=== PATIENT | male | born 1960 | race Caucasian/White ===

== ENCOUNTER 2022-08-16 13:46 | Emergency (ER) | payer MEDICARE, BC, SELFPAY ==
[2022-08-16 13:51] VITALS: BP 119/62; PULSE 89; RESP 18; TEMP 36.1; O2SAT 96
--- OUTSIDE RECORDS SUMMARY | 2022-08-16 14:23 | XMS_ITS | Encounter Summary ---
:1960 Author Organization [place] Address [facility] [place] [address] Care Team Providers Name Role Phone Teresita Garcia MD Primary Care Provider Audrey Hickman MD Unavailable [phone] Reason for Visit Reason Comments Medication Refill Encounter Details Date Type Department Care Team Description 05/13/2022 Refill [facility] Roel Garcia MD Medication Refill [id number] [place] [address] [place], [place] [address] [phone] Social History Tobacco Use Types Packs/Day Years Used Date Smoking Tobacco: Never Smokeless Tobacco: Never Alcohol Use Standard Drinks/Week Comments Not Currently 0 (1 standard drink = 0.6 oz pure alcoho l) socially Alcohol Habits Answer Date Recorded How often do you have a drink containing alcohol? Never 11/25/2018 How many drinks containing alcohol do you have on a typical Not asked day when you are drinking? How often do you have six or more drinks on one occasion? No t asked Social Isolation Answer Date Recorded In a typical week, how many times do you More than three francisco javier es a week 07/05/2020 talk on the phone with family, friends, or neighbors? How often do you get together with friends Not asked or relatives? How often do you attend christianity or Not asked yarsani services? Do you belong to any clubs or Not asked organizations such as christianity groups, unions, fraternal or athletic groups, or school groups? How often do you attend meetings of the Not asked clubs or organizations you belong to? Are you now , , , Not asked , never or living with a partner? Physical Activity Answer Date Recorded On average, how many days per week do you engage in moderate to 0 days 07/05/2020 strenuous exercise (like walking fast, running, jogging, dancing, swimming, biking, or other activities that cause a light or heavy sweat)? On average, how many minutes do you engage in exercise at th is 0 min 07/05/2020 level? Stress Answer Date Recorded Do you feel stress - tense, restless, nervous, or To some ex tent 07/05/2020 anxious, or unable to sleep at night because your mind is troubled all the time - these days? Financial Resource Strain Answer Date Recorded How hard is it for you to pay for the very basics like Not v neo hard 07/05/2020 food, housing, medical care, and heating? Intimate Partner Violence Answer Date Recorded Within the last year, have you been afraid of your partner o r No 07/05/2020 ex-partner? Within the last year, have you been humiliated or emotionall y No 07/05/2020 abused in other ways by your partner or ex-partner? Within the last year, have you been kicked, hit, slapped, or No 07/05/2020 otherwise physically hurt by your partner or ex-partner? Within the last year, have you been raped or forced to have any No 07/05/2020 kind of sexual activity by your partner or ex-partner? Food Insecurity Answer Date Recorded Within the past 12 months, you worried that your food would Never true 07/05/2020 run out before you got money to buy more. Within the past 12 months, the food you bought just didn't N ever true 07/05/2020 last and you didn't have money to get more. Transportation Needs Answer Date Recorded In the past 12 months, has lack of transportation kept you f rom No 07/05/2020 medical appointments or from getting medications? In the past 12 months, has lack of transportation kept you f rom No 07/05/2020 meetings, work, or getting things needed for daily living? Sex Assigned at Date Recorded Male 06/10/2021 1:42 PM CDT documented as of this encounter Miscellaneous Notes Telephone Encounter - Cindy Bonilla RN - 05/14/2022 4:08 PM CDT Routing refill request to provider for review/approval because: Patient needs to be seen because it has been more than 1 year since last office visit. Cindy Bonilla RN, BSN, PHN [facility] documented in this encounter Plan of Treatment Upcoming Encounters Date Type Specialty Care Team Description 08/18/2022 Virtual Visit [place] [address] [place], [place] [id number] (Wo rk) documented as of this encounter Visit Diagnoses Diagnosis Seborrheic dermatitis of scalp Other seborrheic dermatitis documented in this encounter Additional Health Concerns Assessment Noted Time PHQ-9 Depression Total Score: 6 04/12/2021 1:59 PM CDT documented as of this encounter Care Teams Blister Rust Eradicator Relationship Specialty Start Date End Date Teresita Garcia MD PCP - General Family Practice 01/22/11 [address] [place] [address] Audrey Hickman MD Assigned PCP 12/29/21 [address] [place] [address] documented as of this encounter
--- OUTSIDE RECORDS SUMMARY | 2022-08-16 14:23 | XMS_ITS | Encounter Summary ---
:1960 Author Organization [place] Address [facility] [place] [address] Care Team Providers Name Role Phone Teresita Garcia MD Primary Care Provider Audrey Hickman MD Unavailable [phone] Reason for Visit Reason Comments Medication Refill Encounter Details Date Type Department Care Team Description 08/13/2022 Refill [facility] Roel Garcia MD Medication Refill [id number] [place] [address] [place], [place] [address] [phone] Social History Tobacco Use Types Packs/Day Years [...] or relatives? How often do you attend restorationism or Not asked restoration services? Do you belong to any clubs or Not asked organizations such as restorationism groups, unions, fraternal or athletic groups, or [...] this encounter Miscellaneous Notes Telephone Encounter - Teresita Garcia MD - 08/13/2022 4:46 PM CST Audrey, I wonder if you're seeing the patient from now on. F TECHNOLOGIST Telephone Encounter - Blanca Choi RN - 08/13/2022 4:02 PM CST Routing refill request to provider for review/approval because: Dexa on file within past 2 years Normal serum creatinine on file within past 12 months Creatinine Date Value Ref Range Status 11/25/2019 0.95 0.72 - 1.25 mg/dL Final Last Dexa 04/04/2020 Blanca Choi Registered Nurse [facility] F TECHNOLOGIST documented in this encounter Plan of Treatment Upcoming Encounters Date Type Specialty Care Team Description 08/18/2022 Virtual Visit [place] [address] [place], [place] [id number] (Wo rk) documented as of this encounter Visit Diagnoses Diagnosis Osteoporosis, unspecified osteoporosis t ype, unspecified pathological fracture presence documented in this encounter Additional Health Concerns Assessment Noted Time PHQ-9 Depression Total Score: 6 04/12/2021 1:59 PM CDT documented as of this encounter Care Teams Remote Ruby On Rails Developer Relationship Specialty Start Date End Date Teresita Garcia MD PCP - General Family Practice 01/22/11 [address] [place] [address] Audrey Hickman MD Assigned PCP 12/29/21 [address] [place], [place] [id number] [phone] documented as of this encounter
--- OUTSIDE RECORDS SUMMARY | 2022-08-16 14:23 | XMS_ITS | Encounter Summary ---
:1960 Author Organization [place] Address [address] [place] [address] Care Team Providers Name Role Phone Teresita Garcia MD Primary Care Provider Audrey Hickman MD Unavailable [phone] Reason for Visit Reason Onset Date Comments Nurse Advice Line 07/24/2022 Encounter Details Date Type Department Care Team Description 07/24/[address] [facility] Audrey Hickman Nurse Advice [place] [address] [address] [phone] (Wo rk) Social History Tobacco Use Types Packs/Day Years [...] or relatives? How often do you attend anabaptism or Not asked evangelical services? Do you belong to any clubs or Not asked organizations such as anabaptism groups, unions, fraternal or athletic groups, or [...] this encounter Miscellaneous Notes Telephone Encounter - Karen Covarrubias RN - 07/24/2022 10:47 AM CDT Called pt per [facility], has appointment today for jaw pain and wants triaged S-(situation): ongoing jaw pain issues x 10 years on and off B-(background): dentist confirmed no teeth issue, was evaluated at dentist and referred to [place] [facility] ago, told has trigeminal neuralgia years ago, now symptoms returning, Jaw muscles tight, gets massages to area and this helps a lot, also worse Muscles in jaw area tight from [place], pt now lives in assisted living and has 24 hour assistance, can only make F2F appointments on Mondays as that is the only day he has aide to take him, has not seen anyone in years for issue, also had [facility] involved, has home care ordered A-(assessment): jaw pain R-(recommendations): routed to [facility], pt looking for possibility of jaw massage at home, now pain keeps him up at night and interferes with daily routines and needs to do something, pt wonders about TMJ referral and if they do virtual visits due to his condition, was hoping to sort things out at virtualvisit today Routed to [facility] Karen Covarrubias RN, BSN [facility] documented in this encounter Plan of Treatment Upcoming Encounters Date Type Specialty Care Team Description 08/18/2022 Virtual Visit [place] [address] [place], [place] [phone] (Wo rk) documented as of this encounter Visit Diagnoses Not on filedocumented in this encounter Additional Health Concerns Assessment Noted Time PHQ-9 Depression Total Score: 6 04/12/2021 1:59 PM CDT documented as of this encounter Care Teams Entry Level Chemist Relationship Specialty Start Date End Date Teresita Garcia MD PCP - General Family Practice 01/22/11 [address] [place] [address] Audrey Hickman MD Assigned PCP 12/29/21 [address] [place] [address] documented as of this encounter
--- OUTSIDE RECORDS SUMMARY | 2022-08-16 14:23 | XMS_ITS | Clinical Summary ---
:1960 Author Organization [place] Address [address] [place] [address] Care Team Providers Name Role Phone Teresita Garcia MD Primary Care Provider Audrey Hickman MD Unavailable [phone] Allergies Active Allergy Reactions Severity Noted Date Comments Hydromorphone Nausea and Vomiting 09/15/2014 Pollen Extract 01/22/2011 Medications Medication Sig Dispensed Refills Start Date End Date Status Docusate Sodium 0 Acti ve (COLACE PO) Calcium Take 1 tablet by 0 06/08/2017 Ac tive Carb-Cholecalcifer mouth 2 times ol (CALCIUM + D3) daily 600-800 MG-UNIT TABS polyethylene Take 17 g by 0 Acti ve glycol (MIRALAX) mouth daily as powder needed ocrelizumab Inject 10 mLs 10 mL 0 06/26/2020 Act eliel (OCREVUS) 300 (300 mg) into the MG/10ML SOLN vein every 6 injection months methenamine Take 1 g by mouth 0 04/13/2021 Active (HIPREX) 1 g 2 times daily tablet gabapentin Take 1 capsule 0 04/12/2021 Act eliel (NEURONTIN) 400 MG (400 mg) by mouth capsule 4 times daily And pt takes 600 mg at night time. pramipexole Take 1 tablet 0 04/12/2021 Act eliel (MIRAPEX) 0.125 MG (0.125 mg) by tablet mouth 4 times daily amoxicillin amoxicillin 500 0 Ac tive (AMOXIL) 500 MG mg capsule capsule baclofen PO Q6H PRN and 0 05/07/2021 Acti ve (LIORESAL) 10 MG Acute Withdrawal. tablet Call clinic for instructions UNABLE TO FIND MEDICATION NAME: 0 Active baclofen pump ketoconazole APPLY TOPICALLY 360 mL 3 05/14/2022 Active (NIZORAL) 2 % ONCE WEEKLY external shampooIndications : Seborrheic dermatitis of scalp alendronate TAKE ONE TABLET 12 tablet 0 08/14/2022 A ctive (FOSAMAX) 70 MG BY MOUTH ONCE tabletIndications: WEEKLY 60 MINUTES Osteoporosis, BEFORE MORNING unspecified MEAL WITH 8 OX OF osteoporosis type, WATER. STAY unspecified UPRIGHT FOR 30 pathological MINUTES fracture presence alendronate TAKE ONE TABLET 12 tablet 2 10/23/2021 D iscontinued (FOSAMAX) 70 MG BY MOUTH ONCE 2 tabletIndications: WEEKLY 60 MINUTES Osteoporosis, BEFORE MORNING unspecified MEAL WITH 8 OZ OF osteoporosis type, WATER. STAY unspecified UPRIGHT FOR 30 pathological MINUTES fracture presence Active Problems Problem Noted Date Lab test positive for detection of COVID-19 virus 04/2021 Family history of ischemic heart disease 03/11/2019 Neurogenic bladder 03/11/2019 Neurogenic bowel 03/11/2019 Overview: Overview: constipation Venous stasis 11/24/2017 Osteoporosis 01/20/2017 Overview: In the spine. 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 Provider to review and confirm.) Cqie-Zgurz-Yqyealj disease 05/14/2011 Atopic rhinitis 05/14/2011 Overview: (Problem list name updated by automated process. 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 09/10/2010 Urinary tract infection associated with indwelling ure thral catheter 02/27/2007 MS (multiple sclerosis) 09/01/2005 Resolved Problems Problem Noted Date Resolved Date Mild major depression 12/13/2010 10/17/2016 CARDIOVASCULAR SCREENING; LDL GOAL LESS THAN 160 07/28/2010 06/26/2020 Other, mixed, or unspecified nondependent drug abuse, 200512/13/2010 unspecified Depressive disorder, not elsewhere classified 09/16/2005 12/13/2010 iamCERVICALGIA 08/11/2005 09/04/2005 Encounters Date Type Specialty Care Team Description 08/13/2022 Refill Family Practice Teresita Garcia MD Medication Refill 07/24/2022 Virtual Visit Family Practice [facility] TMJ (tem poromandibular Audrey Gibbs MD joint syndro ia) (Primary Dx) 07/24/2022 Telephone Family Practice [facility] Nurse Adv ice Line Audrey Gibbs MD from Last 3 Months Immunizations Name Administration Dates Next Due COVID-19,PF,Curly 01/30/2021 Flu, Unspecified 08/08/2020 Influenza (IIV3) PF 06/13/2012, 07/05/2010 Influenza Quad, Recombinant, pf(RIV4) 06/14/2021, 06/12/2020 (Flublok) Influenza Vaccine IM > 6 months 07/15/2019, 06/09/2018, 08/29, Valent IIV4 (Alfuria,Fluzone) 10/15/2016, 07/27/2016, 2014 Pneumococcal 23 valent 05/20/2011 TDAP Vaccine (Adacel) 12/13/2010 Tdap (Adacel,Boostrix) 06/14/2021 Family History Medical History Relation Comments C.A.D. Father Triple bypass Neurologic Disorder Mother Had MS in 1970 at age 30 Relation Status Comments Brother 1 Alive x1 1/2 brother Brother 2 Alive x1 Father Alive Maternal Grandfather Maternal Grandmother Mother (Age 30) Had MS Paternal Grandfather Paternal Grandmother Social History Tobacco Use Types Packs/Day Years [...] do you attend restorationism or Not asked worship services? Do you belong to any clubs or Not asked organizations such as restorationism groups, unions, fraLabMinds or athletic groups, or school groups? How [...] Date Recorded Male 06/10/2021 1:42 PM CDT Last Filed Vital Signs Vital Sign Reading Time Taken Comments Blood Pressure 128/96 01/02/2022 4:20 PM CDT Pulse 90 01/02/2022 2:55 PM CDT Temperature 36.4 ??C (97.6 ??F) 01/02/2022 1:29 PM CDT Respiratory Rate 18 01/02/2022 1:29 PM CDT Oxygen Saturation 95% 01/02/2022 4:20 PM CDT Inhaled Oxygen Concentration - - Weight 77.1 kg (170 lb) 04/12/2021 1:53 PM CDT Height 170.2 cm (5' 7) 04/12/2021 1:53 PM CDT Body Mass Index 26.63 04/12/2021 1:53 PM CDT Plan of Treatment Upcoming Encounters Date Type Specialty Care Team Description 08/18/2022 Virtual Visit [place] [address] [place] [address] (Wo rk) Health Maintenance Due Date Last Done Comments ANNUAL REVIEW OF HM ORDERS 1960 CT COLONOGRAPHY 1960 FIT-DNA (Cologuard) 1960 FIT 1960 FLEX SIG 1960 ZOSTER IMMUNIZATION (1 of 12/15/2011 2) PHQ-9 10/13/2021 04/12/2021, 06/26/2020, 12/02/2019, Additional history exists LIPID 10/17/2021 10/17/2016, 12/13/2010 COVID-19 Vaccine (4 - 05/07/2022 03/12/2022, 08/26/2021, Booster for Curly series) 01/30/2021 MEDICARE ANNUAL WELLNESS 06/14/2022 06/14/2021, 06/26/2020, VISIT 06/26/2020, Additional history exists DEXA 04/04/2023 04/04/2020, 04/04/2020 COLONOSCOPY 07/29/2023 07/29/2013, 06/01/2013, 06/01/2013 COLORECTAL CANCER SCREENING 07/29/2023 ADVANCE CARE PLANNING 06/26/2025 06/26/2020, 06/26/2020 DTAP/TDAP/TD IMMUNIZATION 06/14/2031 06/14/2021, 12/13/2010 (3 - Td or Tdap) HIV SCREENING Completed 04/28/2006 Pneumococcal Vaccine: Aged Out 05/20/2011 No longer eligible Pediatrics (0 to 5 Years) based on patient's age and At-Risk Patients (6 to to co mplete this topic 64 Years) HEPATITIS C SCREENING Completed 09/03/2017, 10/17/2016 DEPRESSION ACTION PLAN Completed 11/24/2017, 10/17/2016, 09/15/2014, Additional history exists INFLUENZA VACCINE Completed 06/26/2022, 06/25/2021, 06/14/2021, Additional history exists IPV IMMUNIZATION Aged Out No longer eligi ble based on patient 's age to complete this topic MENINGITIS IMMUNIZATION Aged Out No longe r eligible based on patient 's age to complete this topic Medical Devices Implanted Type Area Dining Server Device Shelf Model / Identifier Expiration Serial / Date Lot Left Hip Metallic Left: Replacement Hardware/Anc Hip hor Insurance Payer Benefit Plan / Subscriber ID Effective Phone Address T ype Group Dates MEDICARE MEDICARE [id number] 2018-Prese [phone] ATTN ANTHONY [place] Medicare nt 40 [address] [place] [address] BCBS BCBS OF [place] [id number] 2018-Prese [phone] [address] [address] Indemnity nt 00 [place] [address] Dejuan Rodriguez Personal/Family Self [address] (Home) [place] [address] Care Teams Nuclear Fuels Reclamation Engineer Relationship Specialty Start Date End Date Teresita Garcia MD PCP - General Family Practice 01/22/11 [address] [place], [place] [id number] Audrey Hickman MD Assigned PCP 12/29/21 [address] [place], [place] [phone]
--- OUTSIDE RECORDS SUMMARY | 2022-08-16 14:23 | XMS_ITS | Encounter Summary ---
:1960 Author Organization [place] Address [address] [facility] [place] [address] Care Team Providers Name Role Phone Teresita Garcia MD Primary Care Provider Audrey Hickman MD Unavailable [phone] Reason for Referral Home Health Therapies & Aides (Routine: Next available opening) - Referral NOT Required Specialty Diagnoses / Procedures Referred By Contact Refer red To Contact Diagnoses TMJ (temporomandibular joint syndrome) Audrey Hickman [facility] MD Bernie [facility] [address] [id number] Referral ID Status Reason Start Date Expiration Date Visits V isits Requested Authorized [id number] Referral NOT 07/24/2022 07/24/2023 1 1 Required Reason for Visit Reason Comments Jaw Pain right Encounter Details Date Type Department Care Team Description 07/24/2022 Virtual Visit [facility] TMJ (temporomandibular [facility] [place] Audrey Gibbs MD joint syndrome) [id number] [place] [address] (Primary Dx) [place] [address] [phone] Social History Tobacco Use Types Packs/Day Years [...] or relatives? How often do you attend sikhism or Not asked yarsanism services? Do you belong to any clubs or Not asked organizations such as sikhism groups, unions, fraternal or athletic groups, or [...] PM CDT documented as of this encounter Patient Instructions AttachmentsThe following attachments cannot be sent through Care Everywhere. Syndrome, TMJ (Slovenian)documented in this encounter Progress Notes Audrey Hickman MD - 07/24/2022 4:00 PM CDT Dejuan is a 61 year old who is being evaluated via a billable video visit. How would you like to obtain your AVS? MyChart If the video visit is dropped, the invitation should be resent by: Text to cell phone: [phone] Will anyone else be joining your video visit? No Assessment & Plan TMJ (temporomandibular joint syndrome) - unsure this is trigeminal neuralgia. will refer to PT for further evaluation and treatment. - Home Care Referral 30 minutes spent on the date of the encounter doing chart review, history and exam, documentation and further activities per the note See Patient Instructions No follow-ups on file. Audrey Hickman MD [facility] Subjective Dejuan is a 61 year old, presenting for the following health issues: Jaw Pain (right) HPI Concern - right jaw pain Onset: about 10 years ago Description: sharp pain on the right jaw Intensity: severe Progression of Symptoms: same and intermittent Accompanying Signs & Symptoms: none Therapies tried and outcome: Physical therapy Per patient he was seen at the [place] [facility] and was diagnosed with trigeminal neuralgia. His neurologist told him this was not trigeminal neuralgia but TMJ. States the it is mostly a tightening of her muscles and the tighter it gets the more painful it gets. There are times when he is unable to cchew/manipulate his mouth. Some days the pain is so intense hehas to stretch just to get minimal relief. He tries oral baclofen which is helpful. He also bought afacial massager which has been somewhat helpful. Review of Systems Constitutional, HEENT, cardiovascular, pulmonary, GI, , musculoskeletal, neuro, skin, endocrine and psych systems are negative, except as otherwise noted. Objective Vitals: No vitals were obtained today due to virtual visit. Physical Exam GENERAL: Healthy, alert and no distress EYES: Eyes grossly normal to inspection. No discharge or erythema, or obvious scleral/conjunctival abnormalities. RESP: No audible wheeze, cough, or visible cyanosis. No visible retractions or increased work of breathing. PSYCH: Mentation appears normal, affect normal/bright, judgement and insight intact, normal speech and appearance well-groomed. Video-Visit Details Video Start Time: 4:26 PM Type of service: Video Visit Video End Time:4:49 PM Originating Location (pt. Location): Home Distant Location (provider location): On-site Platform used for Video Visit: [facility] documented in this encounter Plan of Treatment Upcoming Encounters Date Type Specialty Care Team Description 08/18/2022 Virtual Visit [place] [address] [place] [address] (Wo rk) Scheduled Referrals Name Type Priority Associated Diagnoses Order S chedule Home Care Referral Referral Routine: Next TMJ Ordered: available opening (temporomandibular 06/29 joint syndrome) documented as of this encounter Visit Diagnoses Diagnosis TMJ (temporomandibular joint syndrome) - Primary Temporomandibular joint disorders, unspe cified documented in this encounter Additional Health Concerns Assessment Noted Time PHQ-9 Depression Total Score: 6 04/12/2021 1:59 PM CDT documented as of this encounter Care Teams Element Winding Machine Tender Relationship Specialty Start Date End Date Teresita Garcia MD PCP - General Family Practice 01/22/11 [address] [place], [place] [id number] Audrey Hickman MD Assigned PCP 12/29/21 [address] [place], [place] [id number] documented as of this encounter
--- OUTSIDE RECORDS SUMMARY | 2022-08-16 14:24 | XMS_ITS | Encounter Summary ---
:1960 Author Organization [facility] Address [address] [facility] [place] [address] Care Team Providers Name Role Phone Teresita Garcia MD Primary Care Provider Audrey Hickman MD Unavailable [phone] Reason for Visit Reason Onset Date Comments Results 01/06/2022 Urine Culture Encounter Details Date Type Department Care Team Description 01/06/2022 Telephone [facility] Katharina Leija Resul ts (Urine Culture) [facility] Emergency Dep t RN [address] [place] [address] Social History Tobacco Use Types Packs/Day Years [...] or relatives? How often do you attend yarsanism or Not asked anabaptist services? Do you belong to any clubs or Not asked organizations such as yarsanism groups, unions, fraternal or athletic groups, or [...] Date Recorded Male 06/10/2021 1:42 PM CDT COVID-19 Exposure Response Date Recorded In the last month, have you been in contact with No / Unsure 01/02/2022 1:29 PM CDT someone who was confirmed or suspected to have Coronavirus / COVID-19? documented as of this encounter Miscellaneous Notes Telephone Encounter - Katharina Leija RN - 01/06/2022 1:18 PM CDT [facility] () Emergency Department Lab result notification [Adult-Male] [facility] ED lab result protocol used Urine Culture Reason for call Notify of lab results, assess symptoms, review ED providers recommendations/discharge instructions (if necessary) and advise per ED lab result f/u protocol Lab Result (including Rx patient on, if applicable) Final Urine Culture Report on 01/06/22. [facility] Emergency Dept discharge antibiotic prescribed: Ciprofloxacin (Cipro) 500 mg tablet, 1 tablet (500 mg) by mouth 2 times daily for 7 days. Bacteria #1: >100,000 colonies/mL Pseudomonas aeruginosa is [RESISTANT] to antibiotic Bacteria #2: >100,000 colonies/mL Enterococcus faecalis is [NOT TESTED] to antibiotic Recommendations in treatment per [facility] ED Lab result protocol. Information table from Emergency Dept Provider visit on 01/02/22 Symptoms reported at ED visit (Chief complaint, HPI) Chief Complaint: Catheter Problem ?? HPI Dejuan Rodriguez is a 61 year old male with history of MS with a neurogenic bladder and a chronic rivera catheter who presents via EMS for evaluation of a catheter problem. The patient reports that since 299 his catheter has only drained about 150 mL of urine and since then he has developed lower abdominal pressure. Due to concern that his catheter could be obstructed EMS was called to bring him into the ED for evaluation. He reports that this happens to him frequently and he denies any fever or chills. Significant Medical hx, if applicable (i.e. CKD, diabetes) Neurogenic bladder, retention of urine, UTI with catheter Allergies Allergies Allergen Reactions ??? Dilaudid [Hydromorphone] Nausea and Vomiting ??? Pollen Extract Weight, if applicable Wt Readings from Last 2 Encounters: 04/12/21 77.1 kg (170 lb) 06/18/20 77.1 kg (170 lb) Coumadin/Warfarin [Yes /No] NO Creatinine Level (mg/dl) Creatinine Date Value Ref Range Status 11/25/2019 0.95 0.72 - 1.25 mg/dL Final Creatinine clearance (ml/min), if applicable Creatinine clearance cannot be calculated (Patient's most recent lab result is older than the maximum 30 days allowed.) ED providers Impression and Plan (applicable information) Medical Decision Makin-year-old male with history of neurogenic bladder secondary to MS presents with catheter dysfunction. Vital signs are reassuring. Broad differential was pursued include not limited to UTI, pyelonephritis, nephrolithiasis, sentiment, dehydration, etc. Patient has no other symptoms at this time. He reports that his urine always has quite a bit of sentiment. He does not drink enough fluids per patient. He denies any back pain, fevers, nausea, vomiting, flank discomfort. No abdominal pain. UA does look infectious. Positive nitrates and large leuk esterase. Reviewed prior admissions and his urine doesappear to be Pseudomonas and therefore we will try ciprofloxacin at this time. Urine culture is sentand pending. At this point given he has no other symptoms and vitals look good we will not obtain labs at this time. We will try empiric treatment with ciprofloxacin. Kidney function normal in fall. Given his complicated infection we will do a 7-day course. Recommend close follow-up with his urologist. Return precautions were provided. Patient was discharged home. ED diagnosis Acute cystitis without hematuria Obstruction of Rivera catheter, initial encounter (H) ED provider Johana Urena MD systems admin (Patient???s current Symptoms), include time called. 1:47P - when asked patient states he feels Not so great I guess could be better - reporting 'just fatigue' Genitourinary symptoms: NO - just a lot of sediment this is often baseline per ED report Fever: NO Flank pain: NO Rivera Catheter: YES - functioning well Urologist: MD Sinan - [facility] Fax #: [phone] Attention: RODRIGO Church RN Recommendations/Instructions per [facility] ED lab result protocol 2:00 - patient requested lab results be faxed to [facility] - MD Sinan for recommendations onantibiotic treatment change. Discussed with patient symptoms of pyelonephritis and encouraged followup in ED for worsening symptoms as pseudomonas is not susceptible to other oral antibiotics. He is advised that he should follow up if he has not heard from urology no later than 24 hours out or call back to ED results team. Please Contact your PCP clinic or return to the Emergency department if your: ??? Symptoms return. ??? Symptoms do not improve after 3 days on antibiotic. ??? Symptoms do not resolve after completing antibiotic. ??? Symptoms worsen or other concerning symptom's. PCP follow-up Questions asked: YES Katharina Leija RN [facility] Emergency Dept Lab Result RN # [phone] Copy of Lab result Urine Culture Order: [id number] - Reflex for Order [id number] Status: Final result ?? Visible to patient: Yes (not seen) ?? Specimen Information: Urine, Catheter ?? 5 Result Notes Culture >100,000 CFU/mL Pseudomonas aeruginosa??Abnormal?? >100,000 CFU/mL Enterococcus faecalis??Abnormal?? Resulting Agency: [facility] Susceptibility Pseudomonas aeruginosa (1) Antibiotic Interpretation Sensitivity Method Status Piperacillin/Tazobactam Susceptible <=4.0 ug/mL [facility] Final Ceftazidime Susceptible <=1.0 ug/mL [facility] Final Cefepime Susceptible 2.0 ug/mL [facility] Final Meropenem Susceptible 2.0 ug/mL [facility] Final Amikacin Susceptible <=2.0 ug/mL [facility] Final Gentamicin Susceptible <=1.0 ug/mL [facility] Final Tobramycin Susceptible <=1.0 ug/mL [facility] Final Ciprofloxacin Resistant 2.0 ug/mL [facility] Final Levofloxacin Resistant >=8.0 ug/mL [facility] Final Enterococcus faecalis (3) Antibiotic Interpretation Sensitivity Method Status Penicillin Susceptible 8.0 ug/mL T[facility] Final Ampicillin Susceptible <=2 ug/mL [facility] Final Vancomycin Susceptible 1.0 ug/mL [facility] Final Nitrofurantoin Susceptible <=16.0 ug/mL TAHIR Final Condensed View Specimen Collected: 01/02/22 ??2:46 PM Last Resulted: 01/06/22 ??9:55 AM documented in this encounter Plan of Treatment Upcoming Encounters Date Type Specialty Care Team Description 08/18/2022 Virtual Visit [place] [address] [place] [address] (Wo rk) documented as of this encounter Visit Diagnoses Not on filedocumented in this encounter Additional Health Concerns Assessment Noted Time PHQ-9 Depression Total Score: 6 04/12/2021 1:59 PM CDT documented as of this encounter Care Teams Horologist Apprentice Relationship Specialty Start Date End Date Teresita Garcia MD PCP - General Family Practice 01/22/11 [address] [place] [address] Audrey Hickman MD Assigned PCP 12/29/21 [address] [place], [place] [id number] documented as of this encounter
--- OUTSIDE RECORDS SUMMARY | 2022-08-16 14:24 | XMS_ITS | Encounter Summary ---
:1960 Author Organization [facility] Address [address] [place] [address] Care Team Providers Name Role Phone Teresita Garcia MD Primary Care Provider Teresita Garcia MD Unavailable Encounter Details Date Type Department Care Team Description 10/01/2021 Telephone [facility] Roel Garcia MD [place] [address] [phone] Social History Tobacco Use Types Packs/Day Years [...] or relatives? How often do you attend scientology or Not asked faith services? Do you belong to any clubs or Not asked organizations such as scientology groups, unions, fraternal or athletic groups, or [...] this encounter Miscellaneous Notes Telephone Encounter - Zuleyma Fierro RN - 10/01/2021 5:17 PM CST [facility] PT from [facility] calling from [phone]. Requesting orders for lymphedema assessment. They will be faxing orders as well. Zuleyma Fierro RN on 10/01/2021 at 5:18 PM ICS TECHNICAL OFFICER documented in this encounter Plan of Treatment Upcoming Encounters Date Type Specialty Care Team Description 08/18/2022 Virtual Visit [place] [address] [place], [place] [phone] (Wo rk) documented as of this encounter Visit Diagnoses Not on filedocumented in this encounter Additional Health Concerns Assessment Noted Time PHQ-9 Depression Total Score: 6 04/12/2021 1:59 PM CDT documented as of this encounter Care Teams Pool Hand Relationship Specialty Start Date End Date Teresita Garcia MD PCP - General Family Practice 01/22/11 [address] [place], [place] [id number] Teresita Garcia MD Assigned PCP 11/16/16 12/28/21 [address] [place], [place] [phone] documented as of this encounter
--- OUTSIDE RECORDS SUMMARY | 2022-08-16 14:24 | XMS_ITS | Encounter Summary ---
:1960 Author Organization [facility] Address [address] [facility] [place] [address] Care Team Providers Name Role Phone Teresita Garcia MD Primary Care Provider Teresita Garcia MD Unavailable Encounter Details Date Type Department Care Team Description 06/14/2021 Travel Social History Tobacco Use Types Packs/Day Years [...] or relatives? How often do you attend zoroastrian or Not asked congregational services? Do you belong to any clubs or Not asked organizations such as zoroastrian groups, unions, fraternal or athletic groups, or [...] been in contact with No / Unsure 06/14/2021 12:26 PM CDT someone who was confirmed or suspected to have Coronavirus / COVID-19? documented as of this encounter Plan of Treatment Upcoming Encounters Date Type Specialty Care Team Description 08/18/2022 Virtual Visit [place] [address] [place], [place] [id number] (Wo rk) documented as of this encounter Visit Diagnoses Not on filedocumented in this encounter Additional Health Concerns Assessment Noted Time PHQ-9 Depression Total Score: 6 04/12/2021 1:59 PM CDT documented as of this encounter Care Teams Adjunct Professor Of Law Relationship Specialty Start Date End Date Teresita Garcia MD PCP - General Family Practice 01/22/11 [address] [place] [address] Teresita Garcia MD Assigned PCP 11/16/16 12/28/21 [address] [place], [place] [phone] documented as of this encounter
--- OUTSIDE RECORDS SUMMARY | 2022-08-16 14:24 | XMS_ITS | Encounter Summary ---
:1960 Author Organization [facility] Address [address] [facility] [place] [address] Care Team Providers Name Role Phone Teresita Garcia MD Primary Care Provider Teresita Garcia MD Unavailable Reason for Visit Reason Comments Physical Encounter Details Date Type Department Care Team Description 06/14/2021 Office Visit [facility], Routine general medical examination at a health care facility (Primary Dx); [facility] [place] Audrey Gibbs MD Neurogenic bladder; [address] [facility] [id number] [place] [address] MS (multiple sclerosis) (H); [place], [place] Aníbal swanson lower extremity edema; [id number] Need for vaccination [phone] Social History Tobacco Use Types Packs/Day Years [...] or relatives? How often do you attend yarsani or Not asked protestant services? Do you belong to any clubs or Not asked organizations such as yarsani groups, unions, fraternal or athletic groups, or [...] / COVID-19? documented as of this encounter Last Filed Vital Signs Vital Sign Reading Time Taken Comments Blood Pressure 115/80 06/14/2021 12:59 PM CDT Pulse 81 06/14/2021 12:59 PM CDT Temperature - - Respiratory Rate - - Oxygen Saturation - - Inhaled Oxygen Concentration - - Weight - - Height - - Body Mass Index - - documented in this encounter Patient Instructions Patient InstructionsBekah Mccarthy MA - 06/14/2021 1:00 PM CDT Preventive Health Recommendations Male Ages 50 - 64 Yearly exam: ?? See your health care provider every year in order to o Review health changes. o Discuss preventive care. o Review your medicines if your doctor has prescribed any. ??? Have a cholesterol test every 5 years, or more frequently if you are at risk for high cholesterol/heart disease. ??? Have a diabetes test (fasting glucose) every three years. If you are at risk for diabetes, you should have this test more often. ??? Have a colonoscopy at age 50, or have a yearly FIT test (stool test). These exams will check forcolon cancer. ??? Talk with your health care provider about whether or not a prostate cancer screening test (PSA) is right for you. ??? You should be tested each year for STDs (sexually transmitted diseases), if you???re at risk. Shots: Get a flu shot each year. Get a tetanus shot every 10 years. Nutrition: ??? Eat at least 5 servings of fruits and vegetables daily. ??? Eat whole-grain bread, whole-wheat pasta and brown rice instead of white grains and rice. ??? Get adequate Calcium and Vitamin D. Lifestyle ??? Exercise for at least 150 minutes a week (30 minutes a day, 5 days a week). This will help you control your weight and prevent disease. ??? Limit alcohol to one drink per day. ??? No smoking. ??? Wear sunscreen to prevent skin cancer. ??? See your dentist every six months for an exam and cleaning. ??? See your eye doctor every 1 to 2 years. documented in this encounter Progress Notes Audrey Hickman MD - 06/14/2021 1:00 PM CDT SUBJECTIVE: CC: Dejuan Rodriguez is an 60 year old male who presents for preventative health visit. { Patient has been advised of split billing requirements and indicates understanding: Yes Healthy Habits: In general, how would you rate your overall health? Fair Frequency of exercise: None Do you usually eat at least 4 servings of fruit and vegetables a day, include whole grains & fiber and avoid regularly eating high fat or junk foods? Yes Taking medications regularly: No Medication side effects: None Ability to successfully perform activities of daily living: Transportation requires assistance, preparing meals requires assistance, housework requires assistance, bathing requires assistance and laundry requires assistance Home Safety: No safety concerns identified Hearing Impairment: No hearing concerns In the past 6 months, have you been bothered by leaking of urine? No In general, how would you rate your overall mental or emotional health? Fair PHQ-2 Total Score: 2 Additional concerns today: No Patient moving from an assisted living facility in [facility] to another one in [place]. Recently discharged from the hospital for a UTI. Just completed course of amoxicillin and cipro yesterday. States the care he received at his former place did not include sterile techniques for changing his urine bag. Today's PHQ-2 Score: PHQ-2 (??1998 Pfizer) 06/10/2021 Q1: Little interest or pleasure in doing things 1 Q2: Feeling down, depressed or hopeless 1 PHQ-2 Score 2 Q1: Little interest or pleasure in doing things Several days Q2: Feeling down, depressed or hopeless Several days PHQ-2 Score 2 Abuse: Current or Past(Physical, Sexual or Emotional)- No Do you feel safe in your environment? Sometimes Social History Tobacco Use ??? Smoking status: Never Smoker ??? Smokeless tobacco: Never Used Substance Use Topics ??? Alcohol use: Not Currently Alcohol/week: 0.0 standard drinks Comment: socially If you drink alcohol do you typically have >3 drinks per day or >7 drinks per week? No Alcohol Use 06/14/2021 Prescreen: >3 drinks/day or >7 drinks/week? - Prescreen: >3 drinks/day or >7 drinks/week? No Last PSA: No results found for: PSA Reviewed orders with patient. Reviewed health maintenance and updated orders accordingly - Yes Labs reviewed in [facility] Reviewed and updated as needed this visit by clinical staff Tobacco Allergies Meds Med Hx Surg Hx Fam Hx Soc Hx Reviewed and updated as needed this visit by Provider Review of Systems Constitutional: Negative for chills and fever. HENT: Negative for congestion, ear pain, hearing loss and sore throat. Eyes: Negative for pain and visual disturbance. Respiratory: Negative for cough and shortness of breath. Cardiovascular: Positive for peripheral edema. Negative for chest pain and palpitations. Gastrointestinal: Positive for constipation. Negative for abdominal pain, diarrhea, heartburn, hematochezia and nausea. Genitourinary: Positive for impotence. Negative for discharge, dysuria, frequency, genital sores, hematuria and urgency. Musculoskeletal: Positive for myalgias. Negative for arthralgias and joint swelling. Skin: Negative for rash. Neurological: Positive for weakness, headaches and paresthesias. Negative for dizziness. Psychiatric/Behavioral: Positive for mood changes. The patient is not nervous/anxious. OBJECTIVE: BP 115/80 (BP Location: Right arm, Patient Position: Sitting, Cuff Size: Adult Large) Pulse 81 Physical Exam GENERAL: healthy, alert and no distress EYES: Eyes grossly normal to inspection, PERRL and conjunctivae and sclerae normal HENT: ear canals and TM's normal, nose and mouth without ulcers or lesions RESP: lungs clear to auscultation - no rales, rhonchi or wheezes CV: regular rate and rhythm, normal S1 S2, no S3 or S4, no murmur, click or rub, no peripheral edemaand peripheral pulses strong ABDOMEN: soft, nontender, no hepatosplenomegaly, no masses and bowel sounds normal MS: wheelchair bound, B/L LE edema - L>R SKIN: seborrhea of [place] NEURO: mentation intact and speech normal PSYCH: mentation appears normal, affect normal/bright Diagnostic Test Results: Labs reviewed in Epic none ASSESSMENT/PLAN: (Z00.00) Routine general medical examination at a health care facility (primary encounter diagnosis) (N31.9) Neurogenic bladder Comment: has indwelling catheter. Recovering from recent UTI. Can follow up with urology if needed. (G35) MS (multiple sclerosis) (H) Comment: followed by [facility]. Continue with current regimen (R60.0) Bilateral lower extremity edema Comment: discussed compression stockings. Patient has been advised of split billing requirements and indicates understanding: Yes COUNSELING: Reviewed preventive health counseling, as reflected in patient instructions Healthy diet/nutrition Estimated body mass index is 26.63 kg/m?? as calculated from the following: Height as of 04/12/21: 1.702 m (5' 7). Weight as of 04/12/21: 77.1 kg (170 lb). He reports that he has never smoked. He has never used smokeless tobacco. Counseling Resources: ATP IV Guidelines Pooled Cohorts Equation Calculator FRAX Risk Assessment ICSI Preventive Guidelines Dietary Guidelines for Americans, 2009 [employer]'s MyPlate ASA Prophylaxis Lung CA Screening Audrey Hickman MD [facility] documented in this encounter Plan of Treatment Upcoming Encounters Date Type Specialty Care Team Description 08/18/2022 Virtual Visit [place] [address] [place], [place] [id number] (Wo rk) documented as of this encounter Visit Diagnoses Diagnosis Routine general medical examination at a health care facility - Primary Neurogenic bladder Neurogenic bladder, NOS MS (multiple sclerosis) (H) Multiple sclerosis Bilateral lower extremity edema Edema Need for vaccination Need for prophylactic vaccination and in oculation against unspecified single disease documented in this encounter Additional Health Concerns Assessment Noted Time PHQ-9 Depression Total Score: 6 04/12/2021 1:59 PM CDT documented as of this encounter Care Teams First Officer Relationship Specialty Start Date End Date Teresita Garcia MD PCP - General Family Practice 01/22/11 [address] [place] [address] Teresita Garcia MD Assigned PCP 11/16/16 12/28/21 [address] [place] [address] documented as of this encounter
--- OUTSIDE RECORDS SUMMARY | 2022-08-16 14:24 | XMS_ITS | Encounter Summary ---
:1960 Author Organization [facility] Address [facility] [place] [address] Care Team Providers Name Role Phone Teresita Garcia MD Primary Care Provider Teresita Garcia MD Unavailable Reason for Visit Reason Comments Medication Refill Encounter Details Date Type Department Care Team Description 10/19/2021 Refill [facility] Roel Garcia MD Medication Refill [address] [address] [place], [place] [id number] [place] [address] [phone] Social History Tobacco Use Types Packs/Day Years [...] or relatives? How often do you attend gnosticist or Not asked voodoo services? Do you belong to any clubs or Not asked organizations such as gnosticist groups, unions, fraternal or athletic groups, or [...] this encounter Miscellaneous Notes Telephone Encounter - Mary More RN - 10/23/2021 1:58 PM CST Additional refills sent with note to add to yesterday's RX. Mary More RN METERS CALIBRATOR Telephone Encounter - Teresita Garcia MD - 10/22/2021 3:20 PM CST Pt has MS and it is very hard for him to come in for labs. His last creatinine was done on 07/26/2021 and was normal. Please give 1 year supply. METERS CALIBRATOR Telephone Encounter - Lianet Correa RN - 10/22/2021 1:19 PM CST Routing refill request to provider for review/approval because: Labs not current: Cr Visit is up to date, RN will issue 90 day aimee. Please advise on labs. Lianet Correa RN [facility] -- Triage Nurse METERS CALIBRATOR documented in this encounter Plan of Treatment Upcoming Encounters Date Type Specialty Care Team Description 08/18/2022 Virtual Visit [facility] [place] [address] [place], [place] [phone] (Wo rk) documented as of this encounter Visit Diagnoses Diagnosis Osteoporosis, unspecified osteoporosis t ype, unspecified pathological fracture presence documented in this encounter Additional Health Concerns Assessment Noted Time PHQ-9 Depression Total Score: 6 04/12/2021 1:59 PM CDT documented as of this encounter Care Teams Enterprise Services Manager Relationship Specialty Start Date End Date Teresita Garcia MD PCP - General Family Practice 01/22/11 [address] [place] [address] Teresita Garcia MD Assigned PCP 11/16/16 12/28/21 [address] [place] [address] documented as of this encounter
--- OUTSIDE RECORDS SUMMARY | 2022-08-16 14:24 | XMS_ITS | Encounter Summary ---
:1960 Author Organization [place] Address [address] [place] [address] Care Team Providers Name Role Phone Teresita Garcia MD Primary Care Provider Audrey Hickman MD Unavailable [phone] Reason for Visit Reason Onset Date Comments UTI 01/07/2022 Encounter Details Date Type Department Care Team Description 01/07/2022 Telephone [facility] Roel Garcia MD UTI [place] [id number] [place] [address] [place], [place] [id number] [place] [address] [phone] Social History Tobacco Use Types Packs/Day Years [...] do you attend restorationism or Not asked faith services? Do you [...] this encounter Miscellaneous Notes Telephone Encounter - Sylvia Botello RN - 01/07/2022 2:30 PM CDT Message from AWILDA Barrios, that Zoie, home care nurse, left message to call. Called Zoie back and she reported that she had already reached the urologist who recommended patient go to ED as Cipro is resistant to UTI culture and alternate option is IV. Patient on his way there now. Sylvia Botello RN documented in this encounter Plan of Treatment Upcoming Encounters Date Type Specialty Care Team Description 08/18/2022 Virtual Visit [place] [address] [place], [place] [id number] (Wo rk) documented as of this encounter Visit Diagnoses Not on filedocumented in this encounter Additional Health Concerns Assessment Noted Time PHQ-9 Depression Total Score: 6 04/12/2021 1:59 PM CDT documented as of this encounter Care Teams Staking Press Operator Relationship Specialty Start Date End Date Teresita Garcia MD PCP - General Family Practice 01/22/11 [address] [place] [address] Audrey Hickman MD Assigned PCP 12/29/21 [address] [place], [place] [phone] documented as of this encounter
--- OUTSIDE RECORDS SUMMARY | 2022-08-16 14:24 | XMS_ITS | Encounter Summary ---
:1960 Author Organization [place] Address [address] [facility] [place] [address] Care Team Providers Name Role Phone Teresita Garcia MD Primary Care Provider Teresita Garcia MD Unavailable Encounter Details Date Type Department Care Team Description 08/14/2021 Medical Correspondence [facility] [place] [facility], ORDER [facility] Info Mgmt Non-Provider HEALTH/HOSP [facility] [address] [place] [address] Social History Tobacco Use Types Packs/Day Years [...] or relatives? How often do you attend temple or Not asked episcopalian services? Do you belong to any clubs or Not asked organizations such as temple groups, unions, fraternal or athletic groups, or [...] PM CDT documented as of this encounter Plan of Treatment Upcoming Encounters Date Type Specialty Care Team Description 08/18/2022 Virtual Visit [place] [address] [place], [place] [phone] (Wo rk) documented as of this encounter Visit Diagnoses Not on filedocumented in this encounter Additional Health Concerns Assessment Noted Time PHQ-9 Depression Total Score: 6 04/12/2021 1:59 PM CDT documented as of this encounter Care Teams Medical Laboratory Manager Relationship Specialty Start Date End Date Teresita Garcia MD PCP - General Family Practice 01/22/11 [address] [place] [address] Teresita Garcia MD Assigned PCP 11/16/16 12/28/21 [address] [place], [place] [id number] documented as of this encounter
--- OUTSIDE RECORDS SUMMARY | 2022-08-16 14:24 | XMS_ITS | Encounter Summary ---
:1960 Author Organization [place] Address [address] [facility] [place] [address] Care Team Providers Name Role Phone Teresita Garcia MD Primary Care Provider Teresita Garcia MD Unavailable Reason for Visit Reason Onset Date Comments Forms 12/05/2021 Plan of Care Encounter Details Date Type Department Care Team Description 12/05/2021 Telephone [facility] Roel Garcia MD Forms (Plan of Care) [id number] [place] [phone] Social History Tobacco Use Types Packs/Day Years [...] or relatives? How often do you attend hinduism or Not asked taoist services? Do you belong to any clubs or Not asked organizations such as hinduism groups, unions, fraternal or athletic groups, or [...] this encounter Miscellaneous Notes Telephone Encounter - Rosy Brito - 12/05/2021 10:33 AM CST Form completed and faxed, 12/05/2021 Jackie Brito/AWIL[facility] [place] Telephone Encounter - Rosy Brito - 12/05/2021 10:19 AM CST Received 7 page fax for Plan of Care for Dr Garcia to complete. Form in the in- basket at AA's desk. ER [place] documented in this encounter Plan of Treatment Upcoming Encounters Date Type Specialty Care Team Description 08/18/2022 Virtual Visit [place] [address] [place], [place] [phone] (Wo rk) documented as of this encounter Visit Diagnoses Not on filedocumented in this encounter Additional Health Concerns Assessment Noted Time PHQ-9 Depression Total Score: 6 04/12/2021 1:59 PM CDT documented as of this encounter Care Teams Director Community Organization Relationship Specialty Start Date End Date Teresita Garcia MD PCP - General Family Practice 01/22/11 [address] [place] [address] Teresita Garcia MD Assigned PCP 11/16/16 12/28/21 [address] [place] [address] documented as of this encounter
--- OUTSIDE RECORDS SUMMARY | 2022-08-16 14:24 | XMS_ITS | Encounter Summary ---
:1960 Author Organization [place] Address [facility] [place] [address] Care Team Providers Name Role Phone Teresita Garcia MD Primary Care Provider Teresita Garcia MD Unavailable Reason for Visit Reason Onset Date Comments Forms 08/23/2021 Encounter Details Date Type Department Care Team Description 08/23/2021 Telephone [facility] Roel Garcia MD Forms [place] [id number] [place] [address] [place] [address] [place] [address] [phone] Social History Tobacco Use Types Packs/Day Years [...] do you attend christianity or Not asked anabaptism services? Do you belong to any clubs [...] Notes Telephone Encounter - Rosy Brito - 08/28/2021 10:10 AM CST Form completed and faxed, 08/28/2021 Jackie Brito/AWILDA RAL MELT SPECIALIST Telephone Encounter - Vance Desai RN - 08/23/2021 1:46 PM CST Received call from [facility] stating some forms were missing from faxed forms 08/15/21. [facility] to re-fax forms to [place]. Routing to [facility] to review. Vance Person RN RAL MELT SPECIALIST documented in this encounter Plan of Treatment Upcoming Encounters Date Type Specialty Care Team Description 08/18/2022 Virtual [place] [address] [place] [address] (Wo rk) documented as of this encounter Visit Diagnoses Not on filedocumented in this encounter Additional Health Concerns Assessment Noted Time PHQ-9 Depression Total Score: 6 04/12/2021 1:59 PM CDT documented as of this encounter Care Teams Brand Development Manager Relationship Specialty Start Date End Date Teresita Garcia MD PCP - General Family Practice 01/22/11 [address] [place] [address] Teresita Garcia MD Assigned PCP 11/16/16 12/28/21 [address] [place] [address] documented as of this encounter
--- OUTSIDE RECORDS SUMMARY | 2022-08-16 14:24 | XMS_ITS | Encounter Summary ---
:1960 Author Organization [place] Address [address] [facility] [place] [address] Care Team Providers Name Role Phone Teresita Garcia MD Primary Care Provider Teresita Garcia MD Unavailable Reason for Visit Reason Onset Date Comments Home Care/Hospice 08/09/2021 PT and OT Encounter Details Date Type Department Care Team Description 08/09/[address] [facility] Teresita Garcia MD Home Care/Hospice ([facility] [place] [id number] [place] [address] and OT) [address] [place] [phone] Social History Tobacco Use Types Packs/Day Years [...] or relatives? How often do you attend quaker or Not asked uatsdin services? Do you belong to any clubs or Not asked organizations such as quaker groups, unions, fraternal or athletic groups, or [...] Telephone Encounter - Karen Covarrubias RN - 08/09/2021 2:04 PM CST Homecare Orders Requested: Zoie at from [facility] called to request orders for the following Services: Physical Therapy for:eval and treat and Occupational Therapy for:eval and treat Informs pt getting weaker and needs more assistance with transfers, would like Pt and OT added Verbal order provided, FYI to Homecare agency to fax orders over for review and signature of PCP. Karen Covarrubias RN ER SHIP[facility] documented in this encounter Plan of Treatment Upcoming Encounters Date Type Specialty Care Team Description 08/18/2022 Virtual Visit [place] [address] [place], [place] [phone] (Wo rk) documented as of this encounter Visit Diagnoses Not on filedocumented in this encounter Additional Health Concerns Assessment Noted Time PHQ-9 Depression Total Score: 6 04/12/2021 1:59 PM CDT documented as of this encounter Care Teams Programs Assistant Relationship Specialty Start Date End Date Teresita Garcia MD PCP - General Family Practice 01/22/11 [address] [place] [address] Teresita Garcia MD Assigned PCP 11/16/16 12/28/21 [address] [place] [address] documented as of this encounter
--- OUTSIDE RECORDS SUMMARY | 2022-08-16 14:24 | XMS_ITS | Encounter Summary ---
:1960 Author Organization [place] Address [address] [place] [address] Care Team Providers Name Role Phone Teresita Garcia MD Primary Care Provider Audrey Hickman MD Unavailable [phone] Encounter Details Date Type Department Care Team Description 01/02/2022 Travel Social History Tobacco Use Types Packs/Day [...] or relatives? How often do you attend adventist or Not asked confucianist services? Do you belong to any clubs or Not asked organizations such as adventist groups, unions, fraternal or athletic groups, or [...] Virtual [place] [address] [place], [place] [phone] (Wo rk) documented as of this encounter Visit Diagnoses Not on filedocumented in this encounter Additional Health Concerns Assessment Noted Time PHQ-9 Depression Total Score: 6 04/12/2021 1:59 PM CDT documented as of this encounter Care Teams Die Setter Relationship Specialty Start Date End Date Teresita Garcia MD PCP - General Family Practice 01/22/11 [address] [place] [address] Audrey Hickman MD Assigned PCP 12/29/21 [address] [place], [place] [phone] documented as of this encounter
--- OUTSIDE RECORDS SUMMARY | 2022-08-16 14:24 | XMS_ITS | Encounter Summary ---
:1960 Author Organization [place] Address [address] [facility] [place] [address] Care Team Providers Name Role Phone Teresita Garcia MD Primary Care Provider Teresita Garcia MD Unavailable Reason for Visit Reason Onset Date Comments Home Care/Hospice 08/14/2021 Encounter Details Date Type Department Care Team Description 08/14/2021 Telephone [facility] Roel Garcia MD Home Care/Hospice [address] [place] [phone] Social History Tobacco Use Types Packs/Day Years [...] or relatives? How often do you attend adventism or Not asked yazdanism services? Do you belong to any clubs or Not asked organizations such as adventism groups, unions, fraternal or athletic groups, or [...] this encounter Miscellaneous Notes Telephone Encounter - Mray More RN - 08/14/2021 4:10 PM CST Pratibha OT form [facility] calling for orders- OT 2xwk/2wks 1x/wk2wks Verbal order given. Will fax for MD signature. Mary More RN L MOLDER documented in this encounter Plan of Treatment Upcoming Encounters Date Type Specialty Care Team Description 08/18/2022 Virtual [place] [address] [place], [place] [phone] (Wo rk) documented as of this encounter Visit Diagnoses Not on filedocumented in this encounter Additional Health Concerns Assessment Noted Time PHQ-9 Depression Total Score: 6 04/12/2021 1:59 PM CDT documented as of this encounter Care Teams Finger Cobbler Relationship Specialty Start Date End Date Teresita Garcia MD PCP - General Family Practice 01/22/11 [address] [place] [address] Teresita Garcia MD Assigned PCP 11/16/16 12/28/21 [address] [place] [address] documented as of this encounter
--- OUTSIDE RECORDS SUMMARY | 2022-08-16 14:24 | XMS_ITS | Encounter Summary ---
:1960 Author Organization [place] Address [address] [facility] [place] [address] Care Team Providers Name Role Phone Teresita Garcia MD Primary Care Provider Teresita Garcia MD Unavailable Reason for Visit Reason Onset Date Comments Home Care/Hospice 08/14/2021 Encounter Details Date Type Department Care Team Description 08/14/2021 Telephone [facility] Roel Garcia MD Home Care/Hospice [address] [place] [phone] Social History Tobacco Use Types Packs/Day Years [...] or relatives? How often do you attend mu-ism or Not asked christian services? Do you belong to any clubs or Not asked organizations such as mu-ism groups, unions, fraternal or athletic groups, or [...] Telephone Encounter - Mary More RN - 08/14/2021 11:08 AM CST [facility] for orders- PT 1xwk/3 wks Verbal order given. Will fax for MD signature. Mary More RN GER OF DEVELOPMENT documented in this encounter Plan of Treatment Upcoming Encounters Date Type Specialty Care Team Description 08/18/2022 Virtual Visit [place] [address] [place], [place] [phone] (Wo rk) documented as of this encounter Visit Diagnoses Not on filedocumented in this encounter Additional Health Concerns Assessment Noted Time PHQ-9 Depression Total Score: 6 04/12/2021 1:59 PM CDT documented as of this encounter Care Teams Produce Laborer Relationship Specialty Start Date End Date Teresita Garcia MD PCP - General Family Practice 01/22/11 [address] [place] [address] Teresita Garcia MD Assigned PCP 11/16/16 12/28/21 [address] [place], [place] [id number] documented as of this encounter
--- OUTSIDE RECORDS SUMMARY | 2022-08-16 14:24 | XMS_ITS | Encounter Summary ---
:1960 Author Organization [place] Address [address] [facility] [place] [address] Care Team Providers Name Role Phone Teresita Garcia MD Primary Care Provider Teresita Garcia MD Unavailable Reason for Visit Reason Onset Date Comments Orders 08/15/2021 [facility] Encounter Details Date Type Department Care Team Description 08/15/[address] [facility] Teresita Garcia MD Orders ([facility] [place] [id number] [place] [address]) [id number] [place] [phone] Social History Tobacco Use Types [...] or relatives? How often do you attend anglican or Not asked mormonism services? Do you belong to any clubs or Not asked organizations such as anglican groups, unions, fraternal or athletic groups, or [...] Notes Telephone Encounter - Rosy Brito - 08/15/2021 4:00 PM CST Form completed and faxed, 08/15/2021 Jackei Brito/TC EDICAL ENGINEERING TECHNOLOGIST Telephone Encounter - Rosy Brito - 08/15/2021 1:45 PM CST Form placed at AA's desk, 08/15/2021 Jackie Brito/TC EDICAL ENGINEERING TECHNOLOGIST Telephone Encounter - Malka Pang - 08/15/2021 12:59 PM CST Reason for Call: Request for an order or referral: Order or referral being requested: Signature needed Date needed: as soon as possible Has the patient been seen by the PCP for this problem? YES Additional comments: Signature needed for other orders being faxed by [facility] for ongoing SN visit for ongoing care and [facility] visit for shower visits . Phone number Patient can be reached at: Other phone number: juanita [phone] Best Time: any Can we leave a detailed message on this number? YES Call taken on 08/15/2021 at 1:00 PM by Malka Pang Sig needed for other order ok for ongoing SN visit for ongoing care and B[facility]G REMOVER visit for shower visits . [phone] EDICAL ENGINEERING TECHNOLOGIST documented in this encounter Plan of Treatment Upcoming Encounters Date Type Specialty Care Team Description 08/18/2022 Virtual Visit [place] [address] [place] [address] (Wo rk) documented as of this encounter Visit Diagnoses Not on filedocumented in this encounter Additional Health Concerns Assessment Noted Time PHQ-9 Depression Total Score: 6 04/12/2021 1:59 PM CDT documented as of this encounter Care Teams Salesperson Toy Trains And Accessories Relationship Specialty Start Date End Date Teresita Garcia MD PCP - General Family Practice 01/22/11 [address] [place] [address] Teresita Garcia MD Assigned PCP 11/16/16 12/28/21 [address] [place] [address] documented as of this encounter
--- OUTSIDE RECORDS SUMMARY | 2022-08-16 14:24 | XMS_ITS | Encounter Summary ---
:1960 Author Organization [place] Address [address] [facility] [address] Care Team Providers Name Role Phone Teresita Garcia MD Primary Care Provider Audrey Hickman MD Unavailable [phone] Reason for Visit Reason Comments Catheter Problem Encounter Details Date Type Department Care Team Description 01/02/2022 Emergency [facility] Johana Urena Ac sridevi cystitis without hematuria; [facility] Emergency Dep t Obstruction of Rivera catheter, initial e ncounter (H) [address] [facility] [place], [place] [address] [address] [facility] [phone] [place], [place] [address] (Wo rk) Social History Tobacco Use Types [...] or relatives? How often do you attend confucianist or Not asked jainism services? Do you belong to any clubs or Not asked organizations such as confucianist groups, unions, fraternal or athletic groups, or [...] CDT Inhaled Oxygen Concentration - - Weight - - Height - - Body Mass Index - - documented in this encounter Discharge Instructions Discharge InstructionsJohana Urena MD - 01/02/2022 3:41 PM CDT Return to the emergency department if having fevers, chills, nausea, vomiting, palpitations, back pain or other concerns. We have started you on ciprofloxacin to help with a possible urinary tract infection. Reviewing your prior admission it appeared that your urine was susceptible to ciprofloxacin. Urine culture is pending at this time they will call you if there is any other changes required of your antibiotics. Call your urologist for ongoing management. Discharge Instructions Urinary Tract Infection You or your child have been diagnosed with a urinary tract infection, or UTI. The urinary tract includes the kidneys (which make urine/pee), ureters (the tubes that carry urine/pee from the kidneys to the bladder), the bladder (which stores urine/pee), and urethra (the tube that carries urine/pee out of the bladder). Urinary tract infections occur when bacteria travel up the urethra into the bladder (bladder infection) and, in some cases, from there into the kidneys (kidney infection). Generally, every Emergency Department visit should have a follow-up clinic visit with either a primary or a specialty clinic/provider. Please follow-up as instructed by your emergency provider today. Return to the Emergency Department if: You or your child have severe back pain. You or your child are vomiting (throwing up) so that you cannot take your medicine. You or your child have a new fever (had not previously had a fever) over 101??F. You or your child have confusion or are very weak, or feel very ill. Your child seems much more ill, will not wake up, will not respond right, or is crying for a long time and will not calm down. You or your child are showing signs of dehydration. These signs may include decreased urination (pee), dry mouth/gums/tongue, or decreased activity. Follow-up with your provider: Children under 24 months need to be seen by their regular provider within one week after a diagnosisof a UTI. It may be necessary to do some more tests to look at the child???s kidney or bladder. You should begin to feel better within 24 - 48 hours of starting your antibiotic; follow-up with your regular clinic/doctor/provider if this is not the case. Treatment: You will be treated with an antibiotic to kill the bacteria. We have to make an educated guess, based on what we know about common bacteria and antibiotics, as to which antibiotic will work for your infection. We will be correct most times but there will be some cases where the antibiotic chosen is not correct (see urine cultures below). Take a pain medication such as acetaminophen (Tylenol??) or ibuprofen (Advil??, Motrin??, Nuprin??). Phenazopyridine (Pyridium??, Uristat??) is a prescription medication that numbs the bladder to reduce the burning pain of some UTIs. The same medication is available in a non-prescription version (Azo-Standard??, Urodol??). This medication will change the color of the urine and tears (usually blue or o range). If you wear contacts, do not wear them while taking this medication as they may be stained by the medication. Urine Cultures: If indicated, a urine culture may have been performed today. This test generally takes 24-48 hours to complete so the results are not known at this time. The results can confirm that an infection is present but also determine which antibiotic is effective for the specific bacteria that is causing the infection. If your urine culture shows that the antibiotic you were given today will not work to treat your infection, we will attempt to contact you to make arrangements to change the antibiotic. If the culture confirms that the antibiotic is effective for your infection, you will not be contacted. Weoften recommend follow-up with your regular physician/provider on the culture results regardless of this process. Antibiotic Warning: If you have been placed on antibiotics - watch for signs of allergic reaction. These include rash, lip swelling, difficulty breathing, wheezing, and dizziness. If you develop any of these symptoms, stop the antibiotic immediately and go to an emergency room or urgent care for evaluation. Probiotics: If you have been given an antibiotic, you may want to also take a probiotic pill or eat yogurt with live cultures. Probiotics have good bacteria to help your intestines stay healthy. Studies have shown that probiotics help prevent diarrhea and other intestine problems (including C. diff infection) when you take antibiotics. You can buy these without a prescription in the pharmacy section of the store. If you were given a prescription for medicine here today, be sure to read all of the information (including the package insert) that comes with your prescription. This will include important information about the medicine, its side effects, and any warnings that you need to know about. The pharmacist who fills the prescription can provide more information and answer questions you may have about the medicine. If you have questions or concerns that the pharmacist cannot address, please call or return to the Emergency Department. Remember that you can always come back to the Emergency Department if you are not able to see your regular provider in the amount of time listed above, if you get any new symptoms, or if there is anything that worries you. documented in this encounter Medications at Time of Discharge Medication Sig Dispensed Refills Start Date End Date amoxicillin (AMOXIL) amoxicillin 500 mg 0 500 MG capsule capsule baclofen (LIORESAL) 10 PO Q6H PRN and Acute 0 06/2021 MG tablet Withdrawal. Call clinic for instructions Calcium Take 1 tablet by mouth 0 06/08/2017 Carb-Cholecalciferol 2 times daily (CALCIUM + D3) 600-800 MG-UNIT TABS Docusate Sodium (COLACE 0 PO) gabapentin (NEURONTIN) Take 1 capsule (400 0 03/28 400 MG capsule mg) by mouth 4 times daily And pt takes 600 mg at night time. methenamine (HIPREX) 1 Take 1 g by mouth 2 0 03/28 g tablet times daily ocrelizumab (OCREVUS) Inject 10 mLs (300 mg) 10 mL 0 300 MG/10ML SOLN into the vein every 6 injection months polyethylene glycol Take 17 g by mouth 0 (MIRALAX) powder daily as needed pramipexole (MIRAPEX) Take 1 tablet (0.125 0 03/28 0.125 MG tablet mg) by mouth 4 times daily UNABLE TO FIND MEDICATION NAME: 0 baclofen pump ciprofloxacin (CIPRO) Take 1 tablet (500 mg) 20 tablet 0 01/09/2022 500 MG tablet by mouth 2 times daily for 7 days alendronate (FOSAMAX) TAKE ONE TABLET BY 12 tablet 2 202108/13/2022 70 MG MOUTH ONCE WEEKLY 60 tabletIndications: MINUTES BEFORE MORNING Osteoporosis, MEAL WITH 8 OZ OF unspecified WATER. STAY UPRIGHT osteoporosis type, FOR 30 MINUTES unspecified pathological fracture presence ketoconazole (NIZORAL) Apply topically once a 360 mL 3 0 04/16/2021 05/14/2022 2 % external week shampooIndications: Seborrheic dermatitis of scalp documented as of this encounter ED Notes Nicola Melchor RN - 01/02/2022 1:40 PM CDT Bladder scan: 476ml Nicola Melchor RN - 01/02/2022 1:31 PM CDT Arrives via EMS for possible catheter problem. Pt reports catheter gets changed once a month, was changed 2 weeks ago. Pt reports approximately 600cc of urine output/day. Pt reports only 150cc output since 3am. C/o low mid abdominal pain. H/o MS. Total care. Lives in assisted living home. VSS. ABC's intact. A/Ox4. Blanca Lee RN - 01/02/2022 1:28 PM CDT Bed: ED14 Expected date: Expected time: Means of arrival: Comments: Jamie Hawkins- 61, M, ? Blocked rivera Johana Urena MD - 01/02/2022 1:26 PM CDT History Chief Complaint: Catheter Problem HPI Dejuan Rodriguez is a 61 year [...] and he denies any fever or chills. Review of Systems All other systems reviewed and are negative. 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 Physical Exam Patient Vitals for the past 24 hrs: BP Temp Temp src Pulse Resp SpO2 01/02/22 1455 (!) 129/96 -- -- 90 -- 97 % 01/02/22 1329 126/71 97.6 ??F (36.4 ??C) Oral 90 18 95 % Physical Exam General: Resting on the bed. Head: No obvious trauma to head. Ears, Nose, Throat: External ears normal. Nose normal. Eyes: Conjunctivae clear. CV: Regular rate and rhythm. No murmurs. Respiratory: Effort normal and breath sounds normal. No wheezing or crackles. Gastrointestinal: Soft. No distension. There is no tenderness. There is no rigidity, no rebound and no guarding. Musculoskeletal: No cva tenderness Neuro: Alert. Moving all extremities appropriately. Normal speech. Skin: Skin is warm and dry. No rash noted. : chronic indwelling rivera Emergency Department Course Laboratory: Labs Ordered and Resulted from Time of ED Arrival to Time of ED Departure ROUTINE UA WITH MICROSCOPIC REFLEX TO CULTURE - Abnormal Result Value Color Urine Yellow Appearance Urine Slightly Cloudy (*) Glucose Urine Negative Bilirubin Urine Negative Ketones Urine Negative Specific [place] Urine 1.010 Blood Urine Moderate (*) pH Urine 7.5 (*) Protein Albumin Urine 30 (*) Urobilinogen Urine Normal Nitrite Urine Positive (*) Leukocyte Esterase Urine Large (*) WBC Clumps Urine Present (*) Mucus Urine Present (*) Amorphous Crystals Urine Moderate (*) RBC Urine 52 (*) WBC Urine >182 (*) URINE CULTURE URINE CULTURE Emergency Department Course: Reviewed: I reviewed nursing notes, vitals and past medical history Assessments: 1350: I obtained history and examined the patient as noted above. 1540 I rechecked the patient and explained findings. Disposition: The patient was discharged to home. Impression & Plan Medical Decision Makin-year-old male with history of [...] precautions were provided. Patient was discharged home. Diagnosis: ICD-10-CM 1. Acute cystitis without hematuria N30.00 2. Obstruction of Rivera catheter, initial encounter (H) T83.091A Discharge Medications: New Prescriptions CIPROFLOXACIN (CIPRO) 500 MG TABLET Take 1 tablet (500 mg) by mouth 2 times daily for 7 days Scribe Disclosure: I, Noah Desai, am serving as a scribe at 1:31 PM on 01/02/2022 to document services personally performed by Johana Urena MD based on my observations and the provider's statements to me. Johana Urena MD 01/02/22 9769 Johana Urena MD 01/02/22 8238 documented in this encounter Plan of Treatment Upcoming Encounters Date Type Specialty Care Team Description 08/18/2022 Virtual Visit [place] [address] [place] [address] (Wo rk) documented as of this encounter Procedures Procedure Name Priority Date/Time Associated Comments Diagnosis ROUTINE UA WITH STAT 01/02/2022 2:46 PM Result s for this MICROSCOPIC REFLEX TO CDT proced ure are in CULTURE the results section. URINE CULTURE STAT 01/02/2022 2:46 PM Results for this CDT procedure are i n the results section. documented in this encounter Results (ABNORMAL) Urine Culture (01/02/2022 2:46 PM CDT) [facility] Method Time Signature Culture >100,000 CFU/mL TAHIR 01/06/2022 [facility] ID[facility] Pseudomonas 1:46 PM CDT LABORATORY aeruginosa (A) Culture >100,000 CFU/mL 01/06/2022 [facility] Enterococcus 1:46 PM CDT LABORATORY faecalis (A) Specimen Anatomical Collection Method Collection Time Receive d Time (Source) Location / / Volume Laterality Urine URINE SPECIMEN Non-blood 01/02/2022 2:46 PM 022 3:04 FROM URINARY Collection / CDT PM CDT CONDUIT / Unknown Unknown Organism Antibiotic Method Susceptibility Pseudomonas aeruginosa Piperacillin/Tazobactam TAHIR < =4.0 ug/mL: Susceptible Pseudomonas aeruginosa Ceftazidime TAHIR <=1.0 ug/ mL: Susceptible Pseudomonas aeruginosa Cefepime TAHIR 2.0 ug/mL : Susceptible Pseudomonas aeruginosa Meropenem TAHIR 2.0 ug/mL : Susceptible Pseudomonas aeruginosa Amikacin TAHIR <=2.0 ug/ mL: Susceptible Pseudomonas aeruginosa Gentamicin TAHIR <=1.0 ug/ mL: Susceptible Pseudomonas aeruginosa Tobramycin TAHIR <=1.0 ug/ mL: Susceptible Pseudomonas aeruginosa Ciprofloxacin TAHIR 2.0 ug/mL : Resistant Pseudomonas aeruginosa Levofloxacin TAHIR >=8.0 ug/ mL: Resistant Enterococcus faecalis Penicillin TAHIR 8.0 ug/mL: Susceptible Enterococcus faecalis Ampicillin TAHIR <=2 ug/mL: Susceptible Enterococcus faecalis Ciprofloxacin TAHIR >=8.0 ug/m L: Resistant Enterococcus faecalis Vancomycin TAHIR 1.0 ug/mL: Susceptible Enterococcus faecalis Nitrofurantoin TAHIR <=16.0 ug/ mL: Susceptible Comment: Susceptibility testing requeste d by Donte Leija [phone] for [facility] on E. Faecalis 01.06.2022 @ [address] [place] [address] Johana Urena MD LAB - MICRO GENERAL ORDERABL ES Performing Organization Address City/State/ZIP Code Phon e Number UU IDD LABORATORY [facility] [place] [phone] Diag. Lab [address] [facility], Room [address]297 (ABNORMAL) UA with Microscopic reflex to Culture (01/02/2022 2:46 PM CDT) [facility] Method Time Signature Color Urine Yellow Colorless, 01/02/2022 LABORATORY Straw, 3:25 PM CDT Light Yellow, Yellow Appearance Urine Slightly Clear 01/02/2022 RH LABORATOR Y Cloudy (A) 3:25 PM CDT Glucose Urine Negative Negative 01/02/2022 LABORATORY mg/dL 3:25 PM CDT Bilirubin Urine Negative Negative 01/02/2022 LABORATORY 3:25 PM CDT Ketones Urine Negative Negative 01/02/2022 LABORATORY mg/dL 3:25 PM CDT Specific [place] 1.010 1.003 - 01/02/2022 LABORATOR Y Urine 1.035 3:25 PM CDT Blood Urine Moderate Negative 01/02/2022 LABORATORY (A) 3:25 PM CDT pH Urine 7.5 (H) 5.0 - 7.0 01/02/2022 LABORATORY 3:25 PM CDT Protein Albumin 30 (A) Negative 01/02/2022 LABORATORY Urine mg/dL 3:25 PM CDT Urobilinogen Normal Normal, 2.0 01/02/2022 LABORATORY Urine mg/dL 3:25 PM CDT Nitrite Urine Positive Negative 01/02/2022 LABORATORY (A) 3:25 PM CDT Leukocyte Large (A) Negative 01/02/2022 LABORATORY Esterase Urine 3:25 PM CDT WBC Clumps Urine Present (A) None Seen 01/02/2022 RH LABORAT ORY /HPF 3:25 PM CDT Mucus Urine Present (A) None Seen 01/02/2022 RH LABORATORY /LPF 3:25 PM CDT Amorphous Moderate None Seen 01/02/2022 LABORATORY Crystals Urine (A) /HPF 3:25 PM CDT RBC Urine 52 (H) <=2 /HPF 01/02/2022 LABORATORY 3:25 PM CDT WBC Urine >182 (H) <=5 /HPF 01/02/2022 LABORATORY 3:25 PM CDT Specimen Anatomical Collection Method Collection Time Receive d Time (Source) Location / / Volume Laterality Urine URINE SPECIMEN Non-blood 01/02/2022 2:46 PM 022 2:51 FROM URINARY Collection / CDT PM CDT CONDUIT / Unknown Unknown Narrative LABORATORY - 01/02/2022 3:25 PM CDT Urine Culture ordered based on laborator y criteria Johana Urena MD LAB - URINE ORDERABLES Performing Organization Address City/State/ZIP Code Phon [place] [address] Care Lab [address] [facility] Lab (1st floor, no room number) documented in this encounter Visit Diagnoses Diagnosis Acute cystitis without hematuria Acute cystitis Obstruction of Rivera catheter, initial e ncounter (H) documented in this encounter Administered Medications Inactive Administered Medications - up to 3 most recent administrations Medication Order MAR Action Action Date Dose Rate Site ciprofloxacin (CIPRO) tablet 500 Given 01/02/2022 3:56 PM CDT 50 0 mg mg STAT, 500 mg, Oral, ONCE, On Jamilah 01/02/22 at 1545, For 1 dose, Administer at least 2 hours before or 4 hours after aluminum, calcium, iron, zinc or magnesium containing medications. May be taken with food or on an empty stomach. Do not administer alone with a dairy product like milk or yogurt or calcium-fortified juice, but may be administered with a meal containing dairy. Hold tube feeding 1 hour before and 1 hour after administration, Indications: Urinary Tract Infection documented in this encounter Active and Recently Administered Medications Times are shown in CDT. Scheduled Medication Order 12/31/2021 01/01/2022 01/02/2022 ciprofloxacin (CIPRO) tablet 500 mg (COMPLETED) 1556 (Given - Provider: Ariel Sebastian) STAT, 500 mg, Oral, ONCE, On Jamilah 01/02/22 at 1545, For 1 dose, Administer at least 2 hours before or 4 hours after aluminum, calcium, iron, zinc or magnesium containing medications. May be taken with food or on an empty stomach. Do not administ er alone with a dairy product like milk or yogurt or calcium-fortified juice, but may be administered with a meal containing dairy. Hold tube feeding 1 hour befor e and 1 hour after administration, Indications: Urinary Tract In fection documented in this encounter Additional Health Concerns Assessment Noted Time PHQ-9 Depression Total Score: 6 04/12/2021 1:59 PM CDT documented as of this encounter Care Teams Manager Cleaning Relationship Specialty Start Date End Date Teresita Garcia MD PCP - General Family Practice 01/22/11 [address] [place], [place] [phone] Audrey Hickman MD Assigned PCP 12/29/21 [address] [place] [address] documented as of this encounter
--- OUTSIDE RECORDS SUMMARY | 2022-08-16 14:24 | XMS_ITS | Encounter Summary ---
:1960 Author Organization [place] Address [address] [facility] [place] [address] Care Team Providers Name Role Phone Teresita Garcia MD Primary Care Provider Teresita Garcia MD Unavailable Reason for Visit Reason Onset Date Comments Forms 08/14/2021 Physician Orders Encounter Details Date Type Department Care Team Description 08/14/2021 Telephone [facility] Teresita Garcia MD Forms (Physician Clinic [place] [id number] [place] [address] Orders) [address] [place], [place] [phone] Social History Tobacco Use Types Packs/Day [...] do you attend yarsanism or Not asked restorationist services? Do you belong to any clubs [...] Notes Telephone Encounter - Rosy Brito - 08/14/2021 5:28 PM CST Form completed and faxed, 08/14/2021 Jackie Brito/AWILDA [employer] REPA[employer] Telephone Encounter - Rosy Brito - 08/14/2021 10:32 AM CST Received 3 page fax for Physician Orders for Dr Garcia to complete. Form in the in-basket at AA's desk. [employer] REPA[employer]ER documented in this encounter Plan of Treatment Upcoming Encounters Date Type Specialty Care Team Description 08/18/2022 Virtual Visit [place] [address] [place], [place] [phone] (Wo rk) documented as of this encounter Visit Diagnoses Not on filedocumented in this encounter Additional Health Concerns Assessment Noted Time PHQ-9 Depression Total Score: 6 04/12/2021 1:59 PM CDT documented as of this encounter Care Teams [facility] Relationship Specialty Start Date End Date Teresita Garcia MD PCP - General Family Practice 01/22/11 [address] [place] [address] Teresita Garcia MD Assigned PCP 11/16/16 12/28/21 [address] [place] [address] documented as of this encounter
--- OUTSIDE RECORDS SUMMARY | 2022-08-16 14:24 | XMS_ITS | Encounter Summary ---
:1960 Author Organization [place] Address [address] [facility] [place] [address] Care Team Providers Name Role Phone Teresita Garcia MD Primary Care Provider Teresita Garcia MD Unavailable Reason for Visit Reason Onset Date Comments [facility] 10/07[facility]2021 Encounter Details Date Type Department Care Team Description 10/07/2021 Telephone [facility] Teresita Garcia MD [facility] [id number] [place] [phone] Social History Tobacco Use Types Packs/Day [...] or relatives? How often do you attend jehovah's witness or Not asked oriental orthodox services? Do you belong to any clubs or Not asked organizations such as jehovah's witness groups, unions, fraternal or athletic groups, or [...] this encounter Miscellaneous Notes Telephone Encounter - Yumiko Camp CMA - 10/08/2021 2:55 PM CST DME faxed to [facility] Medical Equipment in [place]. Yumiko Camp CMA [place] Telephone Encounter - Coty Fleming RN - 10/07/2021 5:07 PM CST Routing to to inform. NORM Campos, JAN [facility] [place] Telephone Encounter - Mi Crowe RN - 10/07/2021 4:39 PM CST Priority nurse call received from JAN Clark with [facility]: 1. Returning call about compression stockings for patient 2. Will be out to see patient on 10/08/21 and will take measurements, then call PCP clinic to relay those measurements 3. DME order can be sent to whichever medical supply store [facility] uses Informed Eduardo a message will be sent to patient's PCP care team at [facility]. Eduardo verbalized understanding and in agreement with plan. Eduardo stated his voicemail is confidential. Thank you! NORM Escobedo, RN [facility] [place] documented in this encounter Plan of Treatment Upcoming Encounters Date Type Specialty Care Team Description 08/18/2022 Virtual Visit [place] [address] [place], [place] [phone] (Wo rk) documented as of this encounter Visit Diagnoses Not on filedocumented in this encounter Additional Health Concerns Assessment Noted Time PHQ-9 Depression Total Score: 6 04/12/2021 1:59 PM CDT documented as of this encounter Care Teams Discharge Door Operator Relationship Specialty Start Date End Date Teresita Garcia MD PCP - General Family Practice 01/22/11 [address] [place], [place] [phone] Teresita Garcia MD Assigned PCP 11/16/16 12/28/21 [address] [place] [address] documented as of this encounter
--- OUTSIDE RECORDS SUMMARY | 2022-08-16 14:24 | XMS_ITS | Encounter Summary ---
:1960 Author Organization [place] Address [address] [facility] [address] Care Team Providers Name Role Phone Teresita Garcia MD Primary Care Provider Teresita Garcia MD Unavailable Audrey Hickman MD Unavailable [phone] Reason for Visit Reason Onset Date Comments Call Back 10/01/2021 patient is dealing w josie Franklin in his feet and ankles, had asked about compression so cks if they would be ok for him. Encounter Details Date Type Department Care Team Description 10/01/2021 Telephone [facility] Teresita Garcia MD Call Back (patient is [facility] [id number] [place] [address] [place] [address] [place], [place] his feet and ankles, [place] [address] had asked about [phone] compression socks if they would be ok for him.) Social History Tobacco Use Types Packs/Day Years [...] or relatives? How often do you attend congregational or Not asked spiritism services? Do you belong to any clubs or Not asked organizations such as congregational groups, unions, fraternal or athletic groups, or [...] pay for the very basics like Not cami neo hard 07/05/2020 food, housing, medical care, [...] Telephone Encounter - Yumiko Camp CMA - 10/04/2021 11:02 AM CST Left detailed message on [employer] ([facility]) machine that DME for compression stockings hasbeen approved and signed. Need to ask what should be done with the DME? Picked up, mailed, faxed? [facility]. Yumiko Camp CMA ICER INSTALLER Telephone Encounter - Teresita Garcia MD - 10/03/2021 1:14 PM CST No need for a visit in this case. In regards to the compression stockings, I put the order in and ordered it for the lower pressure. I'm not sure if they need measurements or if I can specify the material of the stockings. That is something they can discuss with the medical supply store they will be buying from, meanwhile, can you please print the prescription and sign it by another provider p cr. ICER INSTALLER Telephone Encounter - Karen Covarrubias RN - 10/02/2021 4:49 PM CST Called S[facility]umar home care nurse, informs: ~not new issue ~now that in chair more lower leg edema worsening ~now lives in [facility] [place] [facility] [place] ~not regular nurse, covering for vacation ~only needs knee high ~think facility would assist if virtual visit needed ~would be hard for F2F ~pt saw [facility]WD in May ~pt would like velcro compression stockings but aware they would not be covered, staff would have toassist in donning on and off Would like to confirm if needs virtual visit, can get measurements if AA needs, will figure out whatto do with order if AA orders now Routed again to , please confirm, route to inform Sivakumar Covarrubias RN, BSN [facility] ICER INSTALLER Telephone Encounter - Teresita Garcia MD - 10/02/2021 4:28 PM CST Yes, they can be great option. But is this new? Can we do a virtual visit or in person (if possible)as I know he has limited mobility and transportation. I pended the order in, I wonder if we can print it at the clinic and have someone sign it for patient. Teresita Garcia MD [facility] [phone] ICER INSTALLER Telephone Encounter - Karen Covarrubias RN - 10/02/2021 4:23 PM CST Routed to , see home care note and advise compression socks, please advise, route to inform [facility] home lighting adviser of plan patient is dealing with edema in his feet and ankles, had asked about compression socks if they would be ok for him. Karen Covarrubias RN, BSWilliam [facility] ICER INSTALLER Telephone Encounter - Hiren Johnson - 10/01/2021 6:06 PM CST Reason for call: Other Patient called regarding (reason for call): call back Additional comments: in regards to compression socks Phone number to reach patient: Other phone number: Sivakumar MONTOYA from [facility] [phone] Best Time: During business hours Can we leave a detailed message on this number? 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
--- OUTSIDE RECORDS SUMMARY | 2022-08-16 14:24 | XMS_ITS | Encounter Summary ---
:1960 Author Organization [place] Address [address] [place] [address] Care Team Providers Name Role Phone Teresita Garcia MD Primary Care Provider Teresita Garcia MD Unavailable Reason for Visit Reason Onset Date Comments Home Care/Hospice 07/23/2021 UA Encounter Details Date Type Department Care Team Description 07/23/2021 Telephone [facility] Teresita Garcia MD Home Care/Hospice (UA) Clinic [address] [place] [phone] Social History Tobacco Use Types Packs/Day [...] or relatives? How often do you attend episcopal or Not asked yazidism services? Do you belong to any clubs or Not asked organizations such as episcopal groups, unions, fraternal or athletic groups, or [...] Telephone Encounter - Karen Covarrubias RN - 07/23/2021 2:50 PM CDT Cannot find provider, Dr. Corral was in office and willing to assist, Discussed with Dr. Nelida Corral, gave verbal order for CBC and diff and UA/UC, called Zoie, does not need order in epic, will bring to her labs, they will send results to AA, AA FYI Karen Covarrubias RN, BSN Message handled by Nurse Triage with Huddle - provider name: AA. Telephone Encounter - Karen Covarrubias RN - 07/23/2021 2:37 PM CDT Homecare Orders Requested: Zoie MONTOYA at from [facility] called to request orders for the following Services: ~at residence for catheter change, urine looks cloudy and has sediment ~pt did not sleep well last night, does not look well, informs has never seen him like this ~asking for UA and labs like CBC and diff Will be at residence another 10 minutes, would like orders, AA out of office, will huddle with AA covering team and call nurse back Karen Covarrubias RN, BSN Message handled by CLINIC NURSE. documented in this encounter Plan of Treatment Upcoming Encounters Date Type Specialty Care Team Description 08/18/2022 Virtual Visit [place] [address] [place] [address] (Wo rk) documented as of this encounter Visit Diagnoses Not on filedocumented in this encounter Additional Health Concerns Assessment Noted Time PHQ-9 Depression Total Score: 6 04/12/2021 1:59 PM CDT documented as of this encounter Care Teams Mobile Sales Expert Relationship Specialty Start Date End Date Teresita Garcia MD PCP - General Family Practice 01/22/11 [address] [place] [address] Teresita Garcia MD Assigned PCP 11/16/16 12/28/21 [address] [place] [address] documented as of this encounter
--- OUTSIDE RECORDS SUMMARY | 2022-08-16 14:24 | XMS_ITS | Encounter Summary ---
:1960 Author Organization [place] Address [address] [facility] [place] [address] Care Team Providers Name Role Phone Teresita Garcia MD Primary Care Provider Audrey Hickman MD Unavailable [phone] Encounter Details Date Type Department Care Team Description 02/04/2022 Telephone [facility] Roel Garcia MD [address] [address] [place] [address] [phone] Social History Tobacco Use Types Packs/Day Years [...] or relatives? How often do you attend yazidi or Not asked restorationism services? Do you belong to any clubs or Not asked organizations such as yazidi groups, unions, fraternal or athletic groups, or [...] this encounter Miscellaneous Notes Telephone Encounter - Sophie Swain - 02/04/2022 3:23 PM CDT Fax received from [facility] for plan of care . This will be placed in PCP in box . Sophie Swain Terminal Operations Supervisor documented in this encounter Plan of Treatment Upcoming Encounters Date Type Specialty Care Team Description 08/18/2022 Virtual Visit [place] [address] [place], [place] [phone] (Wo rk) documented as of this encounter Visit Diagnoses Not on filedocumented in this encounter Additional Health Concerns Assessment Noted Time PHQ-9 Depression Total Score: 6 04/12/2021 1:59 PM CDT documented as of this encounter Care Teams Transformer Mechanic Relationship Specialty Start Date End Date Teresita Garcia MD PCP - General Family Practice 01/22/11 [address] [place] [address] Audrey Hickman MD Assigned PCP 12/29/21 [address] [place] [address] documented as of this encounter
--- OUTSIDE RECORDS SUMMARY | 2022-08-16 14:25 | XMS_ITS | Encounter Summary ---
:1960 Author Organization [place] Address [address] [facility] [place] [address] Care Team Providers Name Role Phone Teresita Garcia MD Primary Care Provider Teresita Garcia MD Unavailable Reason for Visit Reason Onset Date Comments Home Care/Hospice 04/10/2021 orders Encounter Details Date Type Department Care Team Description 04/10/2021 Telephone [facility] Teresita Garcia MD Home Care/Hospice Clinic [place] [id number] [place] [address] (orders) [id number] [place] [phone] Social History Tobacco Use Types [...] or relatives? How often do you attend hindu or Not asked congregation services? Do you belong to any clubs or Not asked organizations such as hindu groups, unions, fraternal or athletic groups, or [...] Telephone Encounter - Karen Covarrubias RN - 04/10/2021 3:10 PM CDT Homecare Orders Requested: Renea Wills at from [facility] called to request orders for the following Services: Correction for:2 times a week x 3 weeks and 1 time a week x 3 weeks and Home Health Aide for:1 visit x 1 week and 2 visits x 4 weeks Verbal orders provided, routed FYI to AA, they will fax orders for signing Karen Covarrubias RN, BSN Message handled by CLINIC NURSE. documented in this encounter Plan of Treatment Upcoming Encounters Date Type Specialty Care Team Description 08/18/2022 Virtual Visit [place] [address] [place], [place] [phone] (Wo rk) documented as of this encounter Visit Diagnoses Not on filedocumented in this encounter Additional Health Concerns Assessment Noted Time PHQ-9 Depression Total Score: 8 06/26/2020 12:57 PM CD T documented as of this encounter Care Teams Supervisor Hand Workers Relationship Specialty Start Date End Date Teresita Garcia MD PCP - General Family Practice 01/22/11 [address] [place] [address] Teresita Garcia MD Assigned PCP 11/16/16 12/28/21 [address] [place] [address] documented as of this encounter
--- OUTSIDE RECORDS SUMMARY | 2022-08-16 14:25 | XMS_ITS | Encounter Summary ---
:1960 Author Organization [place] Address [address] [facility] [place] [address] Care Team Providers Name Role Phone Teresita Garcia MD Primary Care Provider Teresita Garcia MD Unavailable Encounter Details Date Type Department Care Team Description 04/12/2021 Travel Social History Tobacco Use Types Packs/Day [...] or relatives? How often do you attend baptist or Not asked adventist services? Do you belong to any clubs or Not asked organizations such as baptist groups, unions, fraternal or athletic groups, or [...] been in contact with No / Unsure 04/12/2021 1:52 PM CDT someone who was confirmed or suspected to have Coronavirus / COVID-19? documented as of this encounter Plan of Treatment Upcoming Encounters Date Type Specialty Care Team Description 08/18/2022 Virtual Visit [place] [address] [place], [place] [phone] (Wo rk) documented as of this encounter Visit Diagnoses Not on filedocumented in this encounter Additional Health Concerns Assessment Noted Time PHQ-9 Depression Total Score: 6 04/12/2021 1:59 PM CDT documented as of this encounter Care Teams Fire Extinguisher Repairer Relationship Specialty Start Date End Date Teresita Garcia MD PCP - General Family Practice 01/22/11 [address] [place] [address] Teresita Garcia MD Assigned PCP 11/16/16 12/28/21 [address] [place], [place] [phone] documented as of this encounter
--- OUTSIDE RECORDS SUMMARY | 2022-08-16 14:25 | XMS_ITS | Encounter Summary ---
:1960 Author Organization [place] Address [address] [facility] [place] [address] Care Team Providers Name Role Phone Teresita Garcia MD Primary Care Provider Teresita Garcia MD Unavailable Reason for Visit Reason Onset Date Comments Home Care/Hospice 04/22/2021 OT Encounter Details Date Type Department Care Team Description 04/22/2021 Telephone [facility] Teresita Garcia MD Home Care/Hospice (OT) Clinic [address] [phone] Social History Tobacco Use Types Packs/Day [...] or relatives? How often do you attend catholic or Not asked mormon services? Do you belong to any clubs or Not asked organizations such as catholic groups, unions, fraternal or athletic groups, or [...] Telephone Encounter - Karen Covarrubias RN - 04/22/2021 2:46 PM CDT Homecare Orders Requested: Zoie at from [facility] called to request orders for the following Services: Occupational Therapy for:shower transfers Verbal orders provided, Homecare agency to fax orders over for review and signature of PCP, BARBARA Covarrubias RN documented in this encounter Plan of Treatment Upcoming Encounters Date Type Specialty Care Team Description 08/18/2022 Virtual Visit [place] [address] [place], [place] [phone] (Wo rk) documented as of this encounter Visit Diagnoses Not on filedocumented in this encounter Additional Health Concerns Assessment Noted Time PHQ-9 Depression Total Score: 6 04/12/2021 1:59 PM CDT documented as of this encounter Care Teams Associate Professor Of History Relationship Specialty Start Date End Date Teresita Garcia MD PCP - General Family Practice 01/22/11 [address] [place] [address] Teresita Garcia MD Assigned PCP 11/16/16 12/28/21 [address] [place] [address] documented as of this encounter
--- OUTSIDE RECORDS SUMMARY | 2022-08-16 14:25 | XMS_ITS | Encounter Summary ---
:1960 Author Organization [place] Address [facility] [place] [address] Care Team Providers Name Role Phone Teresita Garcia MD Primary Care Provider Teresita Garcia MD Unavailable Reason for Visit Reason Onset Date Comments Orders 05/03/2021 [facility] Encounter Details Date Type Department Care Team Description 05/03/[address] [facility] Roel Garcia MD Orders ([facility]) [phone] [place] [phone] (Wo rk) Social History Tobacco Use Types [...] or relatives? How often do you attend religious or Not asked jewish services? Do you belong to any clubs or Not asked organizations such as religious groups, unions, fraternal or athletic groups, or [...] this encounter Miscellaneous Notes Telephone Encounter - Blanca Alves CMA - 05/03/2021 10:58 AM CDT [facility] forms to be sign placed in AA box. Fax to [phone] when completed documented in this encounter Plan of Treatment Upcoming Encounters Date Type Specialty Care Team Description 08/18/2022 Virtual [place] [address] [place], [place] [phone] (Wo rk) documented as of this encounter Visit Diagnoses Not on filedocumented in this encounter Additional Health Concerns Assessment Noted Time PHQ-9 Depression Total Score: 6 04/12/2021 1:59 PM CDT documented as of this encounter Care Teams Sandwich Wrapper Relationship Specialty Start Date End Date Teresita Garcia MD PCP - General Family Practice 01/22/11 [address] [place] [address] Teresita Garcia MD Assigned PCP 11/16/16 12/28/21 [address] [place] [address] documented as of this encounter
--- OUTSIDE RECORDS SUMMARY | 2022-08-16 14:25 | XMS_ITS | Encounter Summary ---
:1960 Author Organization [place] Address [address] [facility] [place] [address] Care Team Providers Name Role Phone Teresita Garcia MD Primary Care Provider Teresita Garcia MD Unavailable Reason for Visit Reason Onset Date Comments Medication Request 04/16/2021 ketoconazole (NIZORA L) 2 % external shampoo Encounter Details Date Type Department Care Team Description 04/16/2021 Telephone [facility] Teresita Garcia MD Medication Request Clinic [address] (ketoconazole (NIZORAL) [id number] [place] [address] 2 % external shampoo) [place], [place] [phone] Social History Tobacco Use Types Packs/Day [...] or relatives? How often do you attend jain or Not asked evangelical services? Do you belong to any clubs or Not asked organizations such as jain groups, unions, fraternal or athletic groups, or [...] Telephone Encounter - Karen Covarrubias RN - 04/16/2021 1:47 PM CDT Routing refill request to provider for review/approval because: See pt note, wants larger quantity, 360 or 3 bottles? Karen Covarrubias RN, BSN Message handled by CLINIC NURSE. Telephone Encounter - Rosy Brito - 04/16/2021 1:35 PM CDT Pt uses ketoconazole (NIZORAL) 2 % external shampoo and would like the prescription changed to the larger bottle and 3 at a time instead of one. Jackie Brito/AWILDA documented in this encounter Plan of Treatment Upcoming Encounters Date Type Specialty Care Team Description 08/18/2022 Virtual Visit [place] [address] [place], [place] [phone] (Wo rk) documented as of this encounter Visit Diagnoses Diagnosis Seborrheic dermatitis of scalp Other seborrheic dermatitis documented in this encounter Additional Health Concerns Assessment Noted Time PHQ-9 Depression Total Score: 6 04/12/2021 1:59 PM CDT documented as of this encounter Care Teams Event Producer Relationship Specialty Start Date End Date Teresita Garcia MD PCP - General Family Practice 01/22/11 [address] [place] [address] Teresita Garcia MD Assigned PCP 11/16/16 12/28/21 [address] [place] [address] documented as of this encounter
--- OUTSIDE RECORDS SUMMARY | 2022-08-16 14:25 | XMS_ITS | Encounter Summary ---
:1960 Author Organization [place] Address [address] [facility] [place] [address] Care Team Providers Name Role Phone Teresita Garcia MD Primary Care Provider Teresita Garcia MD Unavailable Encounter Details Date Type Department Care Team Description 03/15/2021 Medical Correspondence Health [place] Scan, HOME HEALTH PLAN OF Health Info Mgmt Non-Provider CARE [facility] [address] [place] [address] Social History Tobacco Use Types [...] times do you More than three francisco ajvier es a week 07/05/2020 talk on the phone with family, friends, or neighbors? How often do you get together with friends Not asked or relatives? How often do you attend yarsani or Not asked anglican services? Do you belong to any clubs [...] Virtual Visit [place] [address] [place], [place] [phone] (Wo rk) documented as of this encounter Visit Diagnoses Not on filedocumented in this encounter Additional Health Concerns Assessment Noted Time PHQ-9 Depression Total Score: 8 06/26/2020 12:57 PM CD T documented as of this encounter Care Teams Pediatric Np Relationship Specialty Start Date End Date Teresita Garcia MD PCP - General Family Practice 01/22/11 [address] [place] [address] Teresita Garcia MD Assigned PCP 11/16/16 12/28/21 [address] [place], [place] [phone] documented as of this encounter
--- OUTSIDE RECORDS SUMMARY | 2022-08-16 14:25 | XMS_ITS | Encounter Summary ---
:1960 Author Organization [place] Address [address] [facility] [place] [address] Care Team Providers Name Role Phone Teresita Garcia MD Primary Care Provider Teresita Garcia MD Unavailable Encounter Details Date Type Department Care Team Description 04/03/2021 Medical Correspondence [facility] Scan, PLAN OF CARE [facility] Non-Provider HEALTH HOME HEALTH [facility] [address] [place] [address] Social History Tobacco Use Types [...] or relatives? How often do you attend gnosticism or Not asked adventism services? Do you belong to any clubs or Not asked organizations such as gnosticism groups, unions, fraternal or athletic groups, or [...] Virtual [place] [address] [place], [place] [phone] (Wo rk) documented as of this encounter Visit Diagnoses Not on filedocumented in this encounter Additional Health Concerns Assessment Noted Time PHQ-9 Depression Total Score: 8 06/26/2020 12:57 PM CD T documented as of this encounter Care Teams Outreach Team Member Relationship Specialty Start Date End Date Teresita Garcia MD PCP - General Family Practice 01/22/11 [address] [place], [place] [phone] Teresita Garcia MD Assigned PCP 11/16/16 12/28/21 [address] [place] [address] documented as of this encounter
--- OUTSIDE RECORDS SUMMARY | 2022-08-16 14:25 | XMS_ITS | Encounter Summary ---
:1960 Author Organization [place] Address [address] [facility] [place] [address] Care Team Providers Name Role Phone Teresita Garcia MD Primary Care Provider Teresita Garcia MD Unavailable Encounter Details Date Type Department Care Team Description 06/04/2021 Travel Social History Tobacco Use Types Packs/Day [...] or relatives? How often do you attend sikh or Not asked judaism services? Do you belong to any clubs or Not asked organizations such as sikh groups, unions, fraternal or athletic groups, or [...] been in contact with No / Unsure 06/04/2021 12:56 PM CDT someone who was confirmed or suspected to have Coronavirus / COVID-19? documented as of this encounter Plan of Treatment Upcoming Encounters Date Type Specialty Care Team Description 08/18/2022 Virtual Visit [place] [address] [place], [place] [phone] (Wo rk) documented as of this encounter Visit Diagnoses Not on filedocumented in this encounter Additional Health Concerns Assessment Noted Time PHQ-9 Depression Total Score: 6 04/12/2021 1:59 PM CDT documented as of this encounter Care Teams Supervisor Fish Bait Processing Relationship Specialty Start Date End Date Teresita Garcia MD PCP - General Family Practice 01/22/11 [address] [place] [address] Teresita Garcia MD Assigned PCP 11/16/16 12/28/21 [address] [place], [place] [phone] documented as of this encounter
--- OUTSIDE RECORDS SUMMARY | 2022-08-16 14:25 | XMS_ITS | Encounter Summary ---
:1960 Author Organization [place] Address [address] [place] [address] Care Team Providers Name Role Phone Teresita Garcia MD Primary Care Provider Teresita Garcia MD Unavailable Reason for Visit Reason Onset Date Comments Forms 01/23/2021 PHOTOLITH OPERATOR Assessment and/o r Follow up Encounter Details Date Type Department Care Team Description 01/23/2021 Telephone [facility] Teresita Garcia MD Forms (PHOTOLITH OPERATOR Assessment Clinic [address] and/or Follow up) [address] [place] [address] [phone] Social History Tobacco Use Types Packs/Day [...] do you attend sikh or Not asked zoroastrianism services? Do you belong to any clubs [...] Notes Telephone Encounter - Rosy Brito - 01/23/2021 5:07 PM CDT Form completed and faxed, 01/23/2021 Jackie Brito/AWILDA Telephone Encounter - Rosy Brito - 01/23/2021 8:56 AM CDT Received 2 page fax for PHOTOLITH OPERATOR Assessment and/or Follow up for Dr Garcia to complete. Form in the in-basket at [facility] in 's folder. documented in this encounter Plan of Treatment Upcoming Encounters Date Type Specialty Care Team Description 08/18/2022 Virtual Visit [place] [address] [place] [address] (Wo rk) documented as of this encounter Visit Diagnoses Not on filedocumented in this encounter Additional Health Concerns Assessment Noted Time PHQ-9 Depression Total Score: 8 06/26/2020 12:57 PM CD T documented as of this encounter Care Teams Aviation Project Manager Relationship Specialty Start Date End Date Teresita Garcia MD PCP - General Family Practice 01/22/11 [address] [place] [address] Teresita Garcia MD Assigned PCP 11/16/16 12/28/21 [address] [place] [address] documented as of this encounter
--- OUTSIDE RECORDS SUMMARY | 2022-08-16 14:25 | XMS_ITS | Encounter Summary ---
:1960 Author Organization [place] Address [address] [facility] [place] [address] Care Team Providers Name Role Phone Teresita Garcia MD Primary Care Provider Teresita Garcia MD Unavailable Encounter Details Date Type Department Care Team Description 04/12/2021 Medical Correspondence [facility] [place] [facility], ORDERS [facility] Health Info Mgmt Non-Provider HEALTH/HOSP ICE [facility] [address] [place] [address] Social History Tobacco Use Types [...] or relatives? How often do you attend jainism or Not asked baptist services? Do you belong to any clubs or Not asked organizations such as jainism groups, unions, fraternal or athletic groups, or [...] Virtual [place] [address] [place], [place] [phone] (Wo rk) documented as of this encounter Visit Diagnoses Not on filedocumented in this encounter Additional Health Concerns Assessment Noted Time PHQ-9 Depression Total Score: 6 04/12/2021 1:59 PM CDT documented as of this encounter Care Teams Paper Reclaiming Machine Operator Relationship Specialty Start Date End Date Teresita Garcia MD PCP - General Family Practice 01/22/11 [address] [place], [place] [id number] Teresita Garcia MD Assigned PCP 11/16/16 12/28/21 [address] [place], [place] [id number] documented as of this encounter
--- OUTSIDE RECORDS SUMMARY | 2022-08-16 14:25 | XMS_ITS | Encounter Summary ---
:1960 Author Organization [place] Address [address] [facility] [place] [address] Care Team Providers Name Role Phone Teresita Garcia MD Primary Care Provider Teresita Garcia MD Unavailable Encounter Details Date Type Department Care Team Description 04/30/2021 Medical Correspondence Health [place] Scan, ORDERS [facility] Health Info Mgmt Non-Provider HEALTH/HOSP ICE [facility] [address] [place] [address] Social History Tobacco Use Types [...] or relatives? How often do you attend baptism or Not asked yazdanism services? Do you belong to any clubs or Not asked organizations such as baptism groups, unions, fraternal or athletic groups, or [...] Virtual [place] [address] [place], [place] [phone] (Wo rk) documented as of this encounter Visit Diagnoses Not on filedocumented in this encounter Additional Health Concerns Assessment Noted Time PHQ-9 Depression Total Score: 6 04/12/2021 1:59 PM CDT documented as of this encounter Care Teams Insulation Worker Apprentice Relationship Specialty Start Date End Date Teresita Garcia MD PCP - General Family Practice 01/22/11 [address] [place], [place] [phone] Teresita Garcia MD Assigned PCP 11/16/16 12/28/21 [address] [place], [place] [phone] documented as of this encounter
--- OUTSIDE RECORDS SUMMARY | 2022-08-16 14:25 | XMS_ITS | Encounter Summary ---
:1960 Author Organization [place] Address [address] [place] [address] Care Team Providers Name Role Phone Teresita Garcia MD Primary Care Provider Teresita Garcia MD Unavailable Encounter Details Date Type Department Care Team Description 06/02/2021 Medical Correspondence [facility] Scan, SKIN MANAGEMENT Health Info Mgmt Non-Provider ORDER [facility] AND [address] [place] [phone] Social History Tobacco Use Types Packs/Day [...] or relatives? How often do you attend spiritism or Not asked quaker services? Do you belong to any clubs or Not asked organizations such as spiritism groups, unions, fraternal or athletic groups, or [...] Virtual [place] [address] [place], [place] [phone] (Wo rk) documented as of this encounter Visit Diagnoses Not on filedocumented in this encounter Additional Health Concerns Assessment Noted Time PHQ-9 Depression Total Score: 6 04/12/2021 1:59 PM CDT documented as of this encounter Care Teams Floor Covering Printer Assistant Relationship Specialty Start Date End Date Teresita Garcia MD PCP - General Family Practice 01/22/11 [address] [place], [place] [phone] Teresita Garcia MD Assigned PCP 11/16/16 12/28/21 [address] [place], [place] [phone] documented as of this encounter
--- OUTSIDE RECORDS SUMMARY | 2022-08-16 14:25 | XMS_ITS | Encounter Summary ---
:1960 Author Organization [place] Address [address] [facility] [place] [address] Care Team Providers Name Role Phone Teresita Garcia MD Primary Care Provider Teresita Garcia MD Unavailable Reason for Visit Reason Comments Hospital F/U sepsis, UTI Encounter Details Date Type Department Care Team Description 04/12/2021 Virtual Visit [facility] Teresita Garcia MD Sepsis secondary to UTI (H) (Primary Dx) ; Clinic [place] [id number] [place] [address] Lab test positive for detection of COVID -[id number] [place] [phone] Social History Tobacco Use Types Packs/Day [...] do you attend jainism or Not asked jehovah's witness services? Do you belong to any clubs [...] Sign Reading Time Taken Comments Blood Pressure - - Pulse - - Temperature - - Respiratory Rate - - Oxygen Saturation - - Inhaled Oxygen Concentration - - Weight 77.1 kg (170 lb) 04/12/2021 1:53 PM CDT Height 170.2 cm (5' 7) 04/12/2021 1:53 PM CDT Body Mass Index 26.63 04/12/2021 1:53 PM CDT documented in this encounter Progress Notes Teresita Garcia MD - 04/12/2021 2:40 PM CDT Dejuan is a 60 year old who is being evaluated via a billable telephone visit. What phone number would you like to be contacted at? [phone] How would you like to obtain your AVS? Mail a copy Assessment & Plan Sepsis secondary to UTI (H) Resolved, finished abx yesterday, still feeling fatigue, advised to follow up with Urology in the next 2 to 4 weeks. Meanwhile, call if any new symptoms develop. Lab test positive for detection of COVID-19 virus This can be asymptomatic covid infection, treated with monoclonal ab, still asymptomatic, quarantineuntil 04/24. BMI: Estimated body mass index is 26.63 kg/m?? as calculated from the following: Height as of this encounter: 1.702 m (5' 7). Weight as of this encounter: 77.1 kg (170 lb). Follow up in 6 months. Teresita Garcia MD [facility] Subjective Dejuan is a 60 year old who presents for the following health issues HPI Hospital Follow-up Visit: Hospital/Long-Term/IP Rehab Facility: [facility] Date of Admission: 04/04/21 Date of Discharge: 04/08/21 Reason(s) for Admission: Sepsis related to UTI. Was your hospitalization related to COVID-19? No Problems taking medications regularly: None Medication changes since discharge: None Problems adhering to non-medication therapy: None Summary of hospitalization: CareEverywhere information obtained and reviewed Diagnostic Tests/Treatments reviewed. Follow up needed: with Urology. Other Healthcare Providers Involved in Patient???s Care: Homecare Update since discharge: improved. Post Discharge Medication Reconciliation: discharge medications reconciled, continue medications without change. Plan of care communicated with patient Review of Systems CONSTITUTIONAL: NEGATIVE for fever, chills, change in weight RESP: NEGATIVE for significant cough or SOB CV: NEGATIVE for chest pain, palpitations or peripheral edema Objective Vitals: No vitals were obtained today due to virtual visit. Physical Exam healthy, alert and no distress PSYCH: Alert and oriented times 3; coherent speech, normal rate and volume, able to articulate logical thoughts, able to abstract reason, no tangential thoughts, no hallucinations or delusions His affect is normal RESP: No cough, no audible wheezing, able to talk in full sentences Remainder of exam unable to be completed due to telephone visits Phone call duration: 28 minutes documented in this encounter Plan of Treatment Upcoming Encounters Date Type Specialty Care Team Description 08/18/2022 Virtual Visit [place] [address] [place], [place] [phone] (Wo rk) documented as of this encounter Visit Diagnoses Diagnosis Sepsis secondary to UTI (H) - Primary Urinary tract infection, site not specif ied Lab test positive for detection of COVID -19 virus documented in this encounter Additional Health Concerns Assessment Noted Time PHQ-9 Depression Total Score: 6 04/12/2021 1:59 PM CDT documented as of this encounter Care Teams Sorority Mother Relationship Specialty Start Date End Date Teresita Garcia MD PCP - General Family Practice 01/22/11 [address] [place] [address] Teresita Garcia MD Assigned PCP 11/16/16 12/28/21 [address] [place] [address] documented as of this encounter
--- OUTSIDE RECORDS SUMMARY | 2022-08-16 14:25 | XMS_ITS | Encounter Summary ---
:1960 Author Organization [place] Address [address] [facility] [place] [address] Care Team Providers Name Role Phone Teresita Garcia MD Primary Care Provider Teresita Garcia MD Unavailable Reason for Visit Reason Onset Date Comments Orders 01/11/2021 [facility] Encounter Details Date Type Department Care Team Description [facility] [address] [place] [address] Social History Tobacco Use Types Packs/Day [...] or relatives? How often do you attend jewish or Not asked congregational services? Do you belong to any clubs or Not asked organizations such as jewish groups, unions, fraternal or athletic groups, or [...] this encounter Miscellaneous Notes Telephone Encounter - Joselin Najera RN - 01/11/2021 2:59 PM CDT Verbal orders given for SW to come out to see pt. [facility] [phone] Joselin Gusman RN, BSN, PAL (Patient Advocate Liaison) [facility] [phone]\ documented in this encounter Plan of Treatment Upcoming Encounters Date Type Specialty Care Team Description 08/18/2022 Virtual Visit [place] [address] [place], [place] [phone] (Wo rk) documented as of this encounter Visit Diagnoses Not on filedocumented in this encounter Additional Health Concerns Assessment Noted Time PHQ-9 Depression Total Score: 8 06/26/2020 12:57 PM CD T documented as of this encounter Care Teams Loom Repairer Relationship Specialty Start Date End Date Teresita Garcia MD PCP - General Family Practice 01/22/11 [address] [place], [place] [phone] Teresita Garcia MD Assigned PCP 11/16/16 12/28/21 [address] [place], [place] [phone] documented as of this encounter
--- OUTSIDE RECORDS SUMMARY | 2022-08-16 14:25 | XMS_ITS | Encounter Summary ---
:1960 Author Organization [place] Address Counts include 234 beds at the [facility] [place] [address] Care Team Providers Name Role Phone Teresita Garcia MD Primary Care Provider Teresita Garcia MD Unavailable Reason for Visit Reason Comments Medication Refill Encounter Details Date Type Department Care Team Description 05/04/2021 Refill [facility] Roel Garcia MD Medication Refill [address] [address] [place], [place] [phone] [place] [address] [phone] Social History Tobacco Use Types Packs/Day Years [...] do you attend catholic or Not asked mandaeism services? Do you belong to any clubs [...] Telephone Encounter - Zuleyma Fierro RN - 05/07/2021 12:37 PM CDT Prescription approved per [facility] Refill Protocol. Zuleyma Fierro RN on 05/07/2021 at 12:37 PM documented in this encounter Plan of Treatment Upcoming Encounters Date Type Specialty Care Team Description 08/18/2022 Virtual Visit [place] [address] [place], [place] [phone] (Wo rk) documented as of this encounter Visit Diagnoses Diagnosis Osteoporosis, unspecified osteoporosis t ype, unspecified pathological fracture presence documented in this encounter Additional Health Concerns Assessment Noted Time PHQ-9 Depression Total Score: 6 04/12/2021 1:59 PM CDT documented as of this encounter Care Teams Wool Hat Flanger Relationship Specialty Start Date End Date Teresita Garcia MD PCP - General Family Practice 01/22/11 [address] [place] [address] Teresita Garcia MD Assigned PCP 11/16/16 12/28/21 [address] [place], [place] [phone] documented as of this encounter
--- OUTSIDE RECORDS SUMMARY | 2022-08-16 14:25 | XMS_ITS | Encounter Summary ---
:1960 Author Organization [place] Address [address] [facility] [place] [address] Care Team Providers Name Role Phone Teresita Garcia MD Primary Care Provider Teresita Garcia MD Unavailable Reason for Visit Reason Onset Date Comments Pt. Information/instruction 02/20/2021 [facility] Encounter Details Date Type Department Care Team Description 02/20/2021 Telephone [facility] Teresita Garcia MD Pt. Clinic [address] Information/instruction [address] [place], [place] (new amdission) [place], [place] [phone] Social History Tobacco Use Types Packs/Day [...] or relatives? How often do you attend congregation or Not asked orthodox services? Do you belong to any clubs or Not asked organizations such as congregation groups, unions, fraternal or athletic groups, or [...] Notes Telephone Encounter - Rosy Brito - 02/20/2021 4:33 PM CDT CHERISE Signed and faxed, 02/20/2021 Jackie Brito/TC Telephone Encounter - Karen Covarrubias RN - 02/20/2021 1:53 PM CDT [facility] , need stat med list and last appointment Faxed [phone], pt will be new admit, will fax release now, release received, med list and copy of last visit 06/26/20 printed, will have AA sign and have TC fax if able,routed high priority to AA Karen Covarrubias RN, BSN Message handled by CLINIC NURSE. documented in this encounter Plan of Treatment Upcoming Encounters Date Type Specialty Care Team Description 08/18/2022 Virtual Visit [place] [address] [place] [address] (Wo rk) documented as of this encounter Visit Diagnoses Not on filedocumented in this encounter Additional Health Concerns Assessment Noted Time PHQ-9 Depression Total Score: 8 06/26/2020 12:57 PM CD T documented as of this encounter Care Teams Senior Air Director Relationship Specialty Start Date End Date Teresita Garcia MD PCP - General Family Practice 01/22/11 [address] [place] [address] Teresita Garcia MD Assigned PCP 11/16/16 12/28/21 [address] [place] [address] documented as of this encounter
--- OUTSIDE RECORDS SUMMARY | 2022-08-16 14:25 | XMS_ITS | Encounter Summary ---
:1960 Author Organization [place] Address [address] [place] [address] Care Team Providers Name Role Phone Teresita Garcia MD Primary Care Provider Teresita Garcia MD Unavailable Reason for Visit Reason Onset Date Comments Forms 04/19/2021 Home Health Care Encounter Details Date Type Department Care Team Description 04/19/2021 Telephone [facility] Teresita Garcia MD Forms (Home Health [facility] [place] [id number] [place] [address]) [address] [place] [phone] Social History Tobacco Use Types Packs/Day [...] or relatives? How often do you attend alevism or Not asked sikh services? Do you belong to any clubs or Not asked organizations such as alevism groups, unions, fraternal or athletic groups, or [...] Telephone Encounter - Blanca Alves CMA - 04/23/2021 1:59 PM CDT Forms completed Fax to [phone] Telephone Encounter - Blanca Alves CMA - 04/19/2021 7:00 AM CDT 04/19/2021 [facility] forms to be sign placed in AA box. Fax to [phone] when completed documented in this encounter Plan of Treatment Upcoming Encounters Date Type Specialty Care Team Description 08/18/2022 Virtual Visit [place] [address] [place], [place] [phone] (Wo rk) documented as of this encounter Visit Diagnoses Not on filedocumented in this encounter Additional Health Concerns Assessment Noted Time PHQ-9 Depression Total Score: 6 04/12/2021 1:59 PM CDT documented as of this encounter Care Teams Hydraulic Strainer Operator Relationship Specialty Start Date End Date Teresita Garcia MD PCP - General Family Practice 01/22/11 [address] [place] [address] Teresita Garcia MD Assigned PCP 11/16/16 12/28/21 [address] [place] [address] documented as of this encounter
--- OUTSIDE RECORDS SUMMARY | 2022-08-16 14:25 | XMS_ITS | Encounter Summary ---
:1960 Author Organization [place] Address [address] [facility] [place] [address] Care Team Providers Name Role Phone Teresita Garcia MD Primary Care Provider Teresita Garcia MD Unavailable Encounter Details Date Type Department Care Team Description 01/22/2021 Medical Correspondence [facility] [place] Scan, HOME CARE RECORD Health Info Mgmt [facility] [address] [place] [phone] Social History Tobacco Use Types Packs/Day [...] do you attend catholic or Not asked confucianist services? Do you [...] Virtual Visit [place] [address] [place], [place] [phone] (Wo rk) documented as of this encounter Visit Diagnoses Not on filedocumented in this encounter Additional Health Concerns Assessment Noted Time PHQ-9 Depression Total Score: 8 06/26/2020 12:57 PM CD T documented as of this encounter Care Teams Rn Or Lvn Relationship Specialty Start Date End Date Teresita Garcia MD PCP - General Family Practice 01/22/11 [address] [place] [address] Teresita Garcia MD Assigned PCP 11/16/16 12/28/21 [address] [place], [place] [phone] documented as of this encounter
--- OUTSIDE RECORDS SUMMARY | 2022-08-16 14:25 | XMS_ITS | Encounter Summary ---
:1960 Author Organization [place] Address [facility] [place] [address] Care Team Providers Name Role Phone Teresita Garcia MD Primary Care Provider Teresita Garcia MD Unavailable Reason for Visit Reason Onset Date Comments Forms 01/23/2021 Plan of Care Encounter Details Date Type Department Care Team Description 01/23/2021 Telephone [facility] Roel Gacria MD Forms (Plan of Care) [address] [place] [phone] Social History Tobacco Use Types Packs/Day Years [...] or relatives? How often do you attend tenriism or Not asked adventism services? Do you belong to any clubs or Not asked organizations such as tenriism groups, unions, fraternal or athletic groups, or [...] Telephone Encounter - Rosy Brito - 01/23/2021 5:06 PM CDT Form completed and faxed, 01/23/2021 Jackie Brito/AWILDA Telephone Encounter - Rosy Brito - 01/23/2021 9:08 AM CDT Received 7 page fax for Plan of Care for Dr Garcia to complete. Form in the in- basket at [facility] in 's folder. documented in this encounter Plan of Treatment Upcoming Encounters Date Type Specialty Care Team Description 08/18/2022 Virtual Visit [place] [address] [place] [address] (Wo rk) documented as of this encounter Visit Diagnoses Not on filedocumented in this encounter Additional Health Concerns Assessment Noted Time PHQ-9 Depression Total Score: 8 06/26/2020 12:57 PM CD T documented as of this encounter Care Teams Hand Spring Former Relationship Specialty Start Date End Date Teresita Garcia MD PCP - General Family Practice 01/22/11 [address] [place] [address] Teresita Garcia MD Assigned PCP 11/16/16 12/28/21 [address] [place] [address] documented as of this encounter
--- OUTSIDE RECORDS SUMMARY | 2022-08-16 14:25 | XMS_ITS | Encounter Summary ---
:1960 Author Organization [place] Address [address] [facility] [place] [address] Care Team Providers Name Role Phone Teresita Garcia MD Primary Care Provider Teresita Garcia MD Unavailable Reason for Referral Care Coordination (Routine) - Closed Specialty Diagnoses / Procedures Referred By Contact Refer red To Contact Diagnoses Counseling and coordination of care Care Coordination [address] [place], [place] [phone] Referral ID Status Reason Start Date Expiration Date Visits Requ ested Visits Authorized [id number] Closed 04/09/2021 04/09/2022 1 1 Encounter Details Date Type Department Care Team Description 04/09/2021 Orders Only [facility] Care Angle Viera, Counseling and Coordination RN coordination of care [address] [place] [address] (Primary Dx) [place], [place] (Work) [phone] Social History Tobacco Use Types Packs/Day [...] or relatives? How often do you attend orthodox or Not asked moravian services? Do you belong to any clubs or Not asked organizations such as orthodox groups, unions, fraternal or athletic groups, or [...] Virtual [place] [address] [place], [place] [phone] (Wo rk) Scheduled Referrals Name Type Priority Associated Diagnoses Order S chedule Care Coordination Referral Routine Counseling and Expected : Referral coordination of care 021 (Approximate), Expires: 2021 documented as of this encounter Visit Diagnoses Diagnosis Counseling and coordination of care - Pr imary documented in this encounter Additional Health Concerns Assessment Noted Time PHQ-9 Depression Total Score: 8 06/26/2020 12:57 PM CD T documented as of this encounter Care Teams Ferry Engineer Relationship Specialty Start Date End Date Teresita Garcia MD PCP - General Family Practice 01/22/11 [address] [place] [address] Teresita Garcia MD Assigned PCP 11/16/16 12/28/21 [address] [place] [address] documented as of this encounter
--- OUTSIDE RECORDS SUMMARY | 2022-08-16 14:25 | XMS_ITS | Encounter Summary ---
:1960 Author Organization [place] Address [address] [facility] [place] [address] Care Team Providers Name Role Phone Teresita Garcia MD Primary Care Provider Teresita Garcia MD Unavailable Reason for Visit Reason Onset Date Comments Forms 05/31/2021 [facility] o f care Encounter Details Date Type Department Care Team Description 05/31/2021 Telephone [facility] Teresita Garcia MD Forms ([address]) [address] [place] [address] [phone] Social History Tobacco Use Types Packs/Day [...] do you attend gnosticism or Not asked sabianist services? Do you belong to any clubs [...] Telephone Encounter - Blanca Alves CMA - 06/04/2021 8:23 AM CDT Forms completed and faxed to [phone] Telephone Encounter - Blanca Alves CMA - 05/31/2021 9:03 AM CDT Forms from [facility] of care needing to be signed placed in Dr Garcia box. Please fax to [phone] when completed documented in this encounter Plan of Treatment Upcoming Encounters Date Type Specialty Care Team Description 08/18/2022 Virtual Visit [place] [address] [place] [address] (Wo rk) documented as of this encounter Visit Diagnoses Not on filedocumented in this encounter Additional Health Concerns Assessment Noted Time PHQ-9 Depression Total Score: 6 04/12/2021 1:59 PM CDT documented as of this encounter Care Teams Party Coordinator Relationship Specialty Start Date End Date Teresita Garcia MD PCP - General Family Practice 01/22/11 [address] [place] [address] Teresita Garcia MD Assigned PCP 11/16/16 12/28/21 [address] [place] [address] documented as of this encounter
--- OUTSIDE RECORDS SUMMARY | 2022-08-16 14:25 | XMS_ITS | Encounter Summary ---
:1960 Author Organization [place] Address [facility] [place] [address] Care Team Providers Name Role Phone Teresita Garcia MD Primary Care Provider Teresita Garcia MD Unavailable Reason for Visit Reason Onset Date Comments Forms 03/20/2021 Orders Encounter Details Date Type Department Care Team Description 03/20/2021 Telephone [facility] Roel Garcia MD Forms (Orders) [address] [address] [place] [address] [place] [address] [phone] Social History Tobacco Use Types Packs/Day Years [...] do you attend tenriism or Not asked jewish services? Do you [...] Notes Telephone Encounter - Rosy Brito - 03/20/2021 1:14 PM CDT Form completed and faxed, 03/20/2021 Jackie Brito/AWILDA Telephone Encounter - Rosy Brito - 03/20/2021 11:36 AM CDT Received 2 page fax for Orders for Dr Garcia to complete. Form in the in-basket at AA's desk. documented in this encounter Plan of Treatment Upcoming Encounters Date Type Specialty Care Team Description 08/18/2022 Virtual Visit [place] [address] [place], [place] [phone] (Wo rk) documented as of this encounter Visit Diagnoses Not on filedocumented in this encounter Additional Health Concerns Assessment Noted Time PHQ-9 Depression Total Score: 8 06/26/2020 12:57 PM CD T documented as of this encounter Care Teams High Rigger Relationship Specialty Start Date End Date Teresita Garcia MD PCP - General Family Practice 01/22/11 [address] [place] [address] Teresita Garcia MD Assigned PCP 11/16/16 12/28/21 [address] [place] [address] documented as of this encounter
--- OUTSIDE RECORDS SUMMARY | 2022-08-16 14:25 | XMS_ITS | Encounter Summary ---
:1960 Author Organization [place] Address [address] [facility] [place] [address] Care Team Providers Name Role Phone Teresita Garcia MD Primary Care Provider Teresita Garcia MD Unavailable Encounter Details Date Type Department Care Team Description 05/28/2021 Medical Correspondence [facility], OASIS TRANSFER Health Info Mgmt Non-Provider [facility] [address] [place] [address] Social History Tobacco Use Types [...] or relatives? How often do you attend cheondoism or Not asked church services? Do you belong to any clubs or Not asked organizations such as cheondoism groups, unions, fraternal or athletic groups, or [...] Virtual [place] [address] [place], [place] [phone] (Wo rk) documented as of this encounter Visit Diagnoses Not on filedocumented in this encounter Additional Health Concerns Assessment Noted Time PHQ-9 Depression Total Score: 6 04/12/2021 1:59 PM CDT documented as of this encounter Care Teams Philanthropy Officer Relationship Specialty Start Date End Date Teresita Garcia MD PCP - General Family Practice 01/22/11 [address] [place], [place] [phone] Teresita Garcia MD Assigned PCP 11/16/16 12/28/21 [address] [place], [place] [phone] documented as of this encounter
--- OUTSIDE RECORDS SUMMARY | 2022-08-16 14:26 | XMS_ITS | Encounter Summary ---
:1960 Author Organization [place] Address [facility] [place] [address] Care Team Providers Name Role Phone Teresita Garcia MD Primary Care Provider Teresita Garcia MD Unavailable Dolores Caputo EMERGENCY VETERINARY ASSISTANT Unavailable Letha Vasquez MA Unavailable Encounter Details Date Type Department Care Team Description 06/15/2020 [facility] - [facility]a screeni for other Laboratory viral diseases [address] [facility], [address] [place] [address] Social History Tobacco Use Types Packs/Day Years [...] or relatives? How often do you attend roman catholic or Not asked protestant services? Do you belong to any clubs or Not asked organizations such as roman catholic groups, unions, fraternal or athletic groups, [...] been in contact with No / Unsure 06/12/2020 9:42 AM CDT someone who was confirmed or suspected to have Coronavirus / COVID-19? documented as of this encounter Plan of Treatment Upcoming Encounters Date Type Specialty Care Team Description 08/18/2022 Virtual Visit [facility] [place] [address] [place], [place] [phone] (Wo rk) documented as of this encounter Visit Diagnoses Diagnosis Encounter for screening for other viral diseases documented in this encounter Additional Health Concerns Assessment Noted Time PHQ-9 Depression Total Score: 8 12/02/2019 2:02 PM SUPERVISOR PAPER TESTING documented as of this encounter Care Teams Traffic Rate Analyst Relationship Specialty Start Date End Date Teresita Garcia MD PCP - General Family Practice 01/22/11 [address] [place] [address] Teresita Garcia MD Assigned PCP 11/16/16 12/28/21 [address] [place] [address] Dolores Caputo, EMERGENCY VETERINARY ASSISTANT Lead Rotary Drier Feeder Primary Care - CC 06/27/20 09/03/20 Letha Vasquez, Community Health Worker 07/05/20 09/03/20 [facility] documented as of this encounter
--- OUTSIDE RECORDS SUMMARY | 2022-08-16 14:26 | XMS_ITS | Encounter Summary ---
:1960 Author Organization [place] Address [address] [place] [address] Care Team Providers Name Role Phone Teresita Garcia MD Primary Care Provider Teresita Garcia MD Unavailable Dolores Caputo SECURITY CONTROL CENTER OPERATOR Unavailable Letha Vasquez MA Unavailable Reason for Visit Reason Onset Date Comments Forms 07/19/2020 Additional Orders-Ot her Encounter Details Date Type Department Care Team Description 07/19/2020 Telephone [facility] Teresita Garcia MD Forms (Additional Clinic [address] Orders-Other) [id number] [place] [address] [phone] Social History Tobacco Use Types Packs/Day [...] you attend jehovah's witness or Not asked congregation services? Do you [...] Notes Telephone Encounter - Rosy Brito - 07/20/2020 2:55 PM CDT Form completed and faxed, 07/20/2020 Jackie Brito/AWILDA Telephone Encounter - Rosy Brito - 07/19/2020 5:43 PM CDT Received 2 page fax for Additional Orders-Other for Dr Garcia to complete. Form in the in-basket at [facility] in AA's folder. documented in this encounter Plan of Treatment Upcoming Encounters Date Type Specialty Care Team Description 08/18/2022 Virtual Visit [place] [address] [place], [place] [phone] (Wo rk) documented as of this encounter Visit Diagnoses Not on filedocumented in this encounter Additional Health Concerns Assessment Noted Time PHQ-9 Depression Total Score: 8 06/26/2020 12:57 PM CD T documented as of this encounter Care Teams Telephone Instrument Supervisor Relationship Specialty Start Date End Date Teresita Garcia MD PCP - General Family Practice 01/22/11 [address] [place] [address] Teresita Garcia MD Assigned PCP 11/16/16 12/28/21 [address] [place], [place] [phone] Dolores Caputo, SECURITY CONTROL CENTER OPERATOR Lead Clean Room Assembler Primary Care - CC 06/27/20 09/03/20 Letha Vasquez, Community Health Worker 07/05/20 09/03/20 JAY JAY documented as of this encounter
--- OUTSIDE RECORDS SUMMARY | 2022-08-16 14:26 | XMS_ITS | Encounter Summary ---
:1960 Author Organization [place] Address [address] [facility] [place] [address] Care Team Providers Name Role Phone Teresita Garcia MD Primary Care Provider Teresita Garcia MD Unavailable Dolores Caputo JUNIOR QA ANALYST Unavailable Letha aVsquez MA Unavailable Encounter Details Date Type Department Care Team Description [facility] UR[facility]Y [address] [place] [address] [place], [place] [phone] (Wo rk) Social History Tobacco Use Types [...] you attend jehovah's witness or Not asked mormon services? Do you [...] - - Weight 77.1 kg (170 lb) 06/18/2020 3:18 PM CDT Height 170.2 cm (5' 7) 06/18/2020 3:18 PM CDT Body Mass Index 26.63 06/18/2020 3:18 PM CDT documented in this encounter Plan of Treatment Upcoming Encounters Date Type Specialty Care Team Description 08/18/2022 Virtual Visit [place] [address] [place], [place] [phone] (Wo rk) documented as of this encounter Visit Diagnoses Not on filedocumented in this encounter Additional Health Concerns Assessment Noted Time PHQ-9 Depression Total Score: 8 12/02/2019 2:02 PM DRYWALL SPRAYER documented as of this encounter Care Teams Candle Molder Relationship Specialty Start Date End Date Teresita Garcia MD PCP - General Family Practice 01/22/11 [address] [place], [place] [phone] Teresita Garcia MD Assigned PCP 11/16/16 12/28/21 [address] [place] [address] Dolores Caputo LSW Lead African Studies Professor Primary Care - CC 06/27/20 09/03/20 Letha Vasquez, Community Health Worker 07/05/20 09/03/20 MA documented as of this encounter
--- OUTSIDE RECORDS SUMMARY | 2022-08-16 14:26 | XMS_ITS | Encounter Summary ---
:1960 Author Organization [place] Address [address] [facility] [place] [address] Care Team Providers Name Role Phone Teresita Garcia MD Primary Care Provider Teresita Garcia MD Unavailable Reason for Visit Reason Onset Date Comments Forms 11/21/2020 Physician Order Encounter Details Date Type Department Care Team Description 11/21/2020 Telephone [facility] Teresita Garcia MD Forms (Physician Order) Clinic [phone] [place] [address] [phone] Social History Tobacco Use Types Packs/Day [...] do you attend alevism or Not asked hinduism services? Do you belong to any clubs [...] Notes Telephone Encounter - Rosy Brito - 11/27/2020 8:40 AM CST Form completed and faxed, 11/27/2020 Jackie Brito/AWILDA L RIG OPERATOR HELPER Telephone Encounter - oRsy Brito - 11/21/2020 11:58 AM CST Received 2 page fax for Physician Order for Dr Garcia to complete. Form in the in- basket at [facility] in 's folder. L RIG OPERATOR HELPER documented in this encounter Plan of Treatment Upcoming Encounters Date Type Specialty Care Team Description 08/18/2022 Virtual [place] [address] [place], [place] [phone] (Wo rk) documented as of this encounter Visit Diagnoses Not on filedocumented in this encounter Additional Health Concerns Assessment Noted Time PHQ-9 Depression Total Score: 8 06/26/2020 12:57 PM CD T documented as of this encounter Care Teams Instructor Psychiatric Aide Relationship Specialty Start Date End Date Teresita Garcia MD PCP - General Family Practice 01/22/11 [address] [place] [address] Teresita Garcia MD Assigned PCP 11/16/16 12/28/21 [address] [place] [address] documented as of this encounter
--- OUTSIDE RECORDS SUMMARY | 2022-08-16 14:26 | XMS_ITS | Encounter Summary ---
:1960 Author Organization [place] Address [address] [facility] [place] [address] Care Team Providers Name Role Phone Teresita Garcia MD Primary Care Provider Teresita Garcia MD Unavailable Dolores Caputo YEAST FERMENTATION ATTENDANT Unavailable Letha Vasquez MA Unavailable Audrey Hickman MD Unavailable [phone] Reason for Visit Reason Comments Medication Refill Encounter Details Date Type Department Care Team Description 08/23/2020 Refill [facility] Roel Garcia MD Medication Refill [phone] [place] [address] [place] [address] [phone] Social History Tobacco Use Types Packs/Day Years [...] or relatives? How often do you attend amish or Not asked islam services? Do you belong to any clubs or Not asked organizations such as amish groups, unions, fraternal or athletic groups, or [...] this encounter Miscellaneous Notes Telephone Encounter - Kirstin Mejia, RN - 08/24/2020 10:49 AM INSPECTOR PRODUCTION PLASTIC PARTS Patient has refills remaining with requesting pharmacy. Kirstin Vail - Registered Nurse [facility] ECTOR PRODUCTION PLASTIC PARTS documented in this encounter Plan of Treatment Upcoming Encounters Date Type Specialty Care Team Description 08/18/2022 Virtual Visit [place] [address] [place], [place] [phone] (Wo rk) documented as of this encounter Visit Diagnoses Diagnosis Osteoporosis, unspecified osteoporosis t ype, unspecified pathological fracture presence documented in this encounter Additional Health Concerns Assessment Noted Time PHQ-9 Depression Total Score: 8 06/26/2020 12:57 PM CD T documented as of this encounter Care Teams Affirmative Action Officer Relationship Specialty Start Date End Date Teresita Garcia MD PCP - General Family Practice 01/22/11 [address] [place] [address] Teresita Garcia MD Assigned PCP 11/16/16 12/28/21 [address] [place] [address] Dolores Caputo, PATEL Lead Fashion Adviser Primary Care - CC 06/27/20 09/03/20 Letha Vasquez, Community Health Worker 07/05/20 09/03/20 MA Audrey Hickman Assigned PCP 12/29/21 MD Bernie [address] [place] [address] documented as of this encounter
--- OUTSIDE RECORDS SUMMARY | 2022-08-16 14:26 | XMS_ITS | Encounter Summary ---
:1960 Author Organization [place] Address [address] [facility] [place] [address] Care Team Providers Name Role Phone Teresita Garcia MD Primary Care Provider Teresita Garcia MD Unavailable Dolores Caputo DENTAL CHAIRSIDE ASSISTANT Unavailable Letha Vasquez MA Unavailable Reason for Visit Reason Onset Date Comments Orders 07/27/2020 [facility] Encounter Details Date Type Department Care Team Description 07/27/2020 Telephone [facility] Teresita Garcia MD Orders ([facility] [address]) [address] [place] [address] [phone] Social History Tobacco Use Types Packs/Day [...] do you attend restorationism or Not asked protestant services? Do you [...] this encounter Miscellaneous Notes Telephone Encounter - Malena Hankins - 07/31/2020 4:09 PM CST Signed orders faxed. Malena Hankins Workers Compensation Coordinator RANCE TERRITORY MANAGER Telephone Encounter - Malena Hankins - 07/27/2020 8:29 AM CDT Recd 2 page fax from [facility]. Please sign orders and fax to [phone]. Form in AA folder at [facility]. Malena Hankins Workers Compensation Coordinator documented in this encounter Plan of Treatment Upcoming Encounters Date Type Specialty Care Team Description 08/18/2022 Virtual [place] [address] [place], [place] [phone] (Wo rk) documented as of this encounter Visit Diagnoses Not on filedocumented in this encounter Additional Health Concerns Assessment Noted Time PHQ-9 Depression Total Score: 8 06/26/2020 12:57 PM CD T documented as of this encounter Care Teams Floor Refinisher Relationship Specialty Start Date End Date Teresita Garcia MD PCP - General Family Practice 01/22/11 [address] [place] [address] Teresita Garcia MD Assigned PCP 11/16/16 12/28/21 [address] [place], [place] [phone] Dolores Caputo, DENTAL CHAIRSIDE ASSISTANT Lead Full Service Supervisor Primary Care - CC 06/27/20 09/03/20 Letha Vasquez, Community Health Worker 07/05/20 09/03/20 JAY JAY documented as of this encounter
--- OUTSIDE RECORDS SUMMARY | 2022-08-16 14:26 | XMS_ITS | Encounter Summary ---
:1960 Author Organization [place] Address [address] [place] [address] Care Team Providers Name Role Phone Teresita Garcia MD Primary Care Provider Teresita Garcia MD Unavailable Reason for Referral Care Coordination (Routine) - Closed Specialty Diagnoses / Procedures Referred By Contact Refer red To Contact Diagnoses Encounter for [place] [address] [place] [address] Referral ID Status Reason Start Date Expiration Date Visits Requ ested Visits Authorized [id number] Closed 06/26/2020 06/26/2021 1 1 atient Education (Routine) - Closed Specialty Diagnoses / Procedures Referred By Contact Refer red To Contact Diagnoses Advanced directives, counseling/discussion Teresita Garcia MD [facility] [address] [address] Phone: Referral ID Status Reason Start Date Expiration Date Visits Requ ested Visits Authorized [id number] Closed 06/26/2020 06/26/2021 1 1 Reason for Visit Reason Comments Wellness Visit Encounter Details Date Type Department Care Team Description 06/26/2020 Virtual Visit [facility] Teresita Garcia MD Advanced directives, counseling/discussi on (Primary Dx); Clinic [place] [address] [address] Need for shingles vaccine; [address] [place], [place] Encounter for Medicare gatoua l wellness exam; [place] [address] MS (multiple sclerosis) (H) [phone] Social History Tobacco Use Types Packs/Day [...] do you attend jainism or Not asked episcopalian services? Do you [...] / COVID-19? documented as of this encounter Progress Notes Blanca Choi RN - 06/26/2020 1:00 PM CDT Pre-Visit Planning Future Appointments Date Time Provider Department Center 06/26/2020 1:00 PM Teresita Garcia MD [facility] CR Arrival Time for this Appointment: 12:45 PM Appointment Notes for this encounter: Medicare Annual Wellness Questionnaires Reviewed/Assigned Additional questionnaires assigned PHQ 9 and KAMRON 7 Hospital/ER visits since last pcp appt? NO Imaging: [facility] 04/04/2020 Osteopenia. Patient had a study performed previously, however the scans are not available to compare to the current study. Recommendations include ensuring adequate Calcium and Vitamin D. Follow up can be considered in 2-3 years. Lab review: No concerns per review rn MyChart Patient is active on MyChart. although does not appear that he has ever used Specialty Visits - Multiple [facility] and visits available in [facility] for review, [place] [facility] 04/12/2020. Neurology 05/08/2020, Cystoscopy 06/19/2020 bladder stones Patient preferred phone number: [phone] Health Maintenance Due Topic Date Due ??? ADVANCE CARE PLANNING 1960 ??? MEDICARE ANNUAL WELLNESS VISIT 12/15/1979 ??? ZOSTER IMMUNIZATION (1 of 2) 12/15/2011 ??? PHQ-9 06/03/2020 Blanca Choi, Registered Nurse, MEG (Patient Advocate Liason) [facility] [phone] Teresita Garcia MD - 06/26/2020 1:00 PM CDT Dejuan Rodriguez is a 59 year old male who is being evaluated via a billable video visit. The patient has been notified of following: This video visit will be conducted via a call between you and your physician/provider. We have found that certain health care needs can be provided without the need for an in-person physical exam. This service lets us provide the care you need with a video conversation. If a prescription is necessarywe can send it directly to your pharmacy. If lab work is needed we can place an order for that and you can then stop by our lab to have the test done at a later time. Video visits are billed at different rates depending on your insurance coverage. Please reach out toyour insurance provider with any questions. If during the course of the call the physician/provider feels a video visit is not appropriate, you will not be charged for this service. Patient has given verbal consent for Video visit? Yes How would you like to obtain your AVS? MyChart If you are dropped from the video visit, the video invite should be resent to: Text to cell phone: [phone] Will anyone else be joining your video visit? No Subjective Dejuan Rodriguez is a 59 year old male who presents today via video visit for the following healthissues: Future Appointments Date Time Provider Department Center 06/26/2020 1:00 PM Teresita Garcai MD [facility] CR Appointment Notes for this encounter: Medicare Annual Wellness Health Maintenance Due Topic Date Due ??? ANNUAL REVIEW OF HM ORDERS 1960 ??? MEDICARE ANNUAL WELLNESS VISIT 12/15/1979 ??? ZOSTER IMMUNIZATION (1 of 2) 12/15/2011 ??? PHQ-9 06/03/2020 Health Maintenance addressed: Immunizations and PHQ9 PHQ9 / KAMRON / ACT Gave pt questionnaire to complete and Immunizations Virtual visit MyChart Status: Active and Using HPI Annual Wellness Visit Patient has been advised of split billing requirements and indicates understanding: Yes Are you in the first 12 months of your Medicare Part B coverage? No Physical Health: ?? In general, how would you rate your overall physical health? fair ?? Outside of work, how many days during the week do you exercise?none ?? Outside of work, approximately how many minutes a day do you exercise?not applicable ?? If you drink alcohol do you typically have >3 drinks per day or >7 drinks per week? No ?? Do you usually eat at least 4 servings of fruit and vegetables a day, include whole grains & fiber and avoid regularly eating high fat or junk foods? NO twice a day ?? Do you have any problems taking medications regularly? No ?? Do you have any side effects from medications? none ?? Needs assistance for the following daily activities: telephone use, transportation, shopping, preparing meals, housework, bathing and laundry ?? Which of the following safety concerns are present in your home? none identified ?? Hearing impairment: No ?? In the past 6 months, have you been bothered by leaking of urine? no There were no vitals taken for this visit. Weight: Provided by patient Height: Provided by patient BMI: Based on patient-provided information Blood Pressure: Provided by patient Mental Health: ?? In general, how would you rate your overall mental or emotional health? fair PHQ-2 Score: Do you feel safe in your environment? Yes Have you ever done Advance Care Planning? (For example, a Health Directive, POLST, or a discussion with a medical provider or your loved ones about your wishes)? No, advance care planning information given to patient to review. Patient declined advance care planning discussion at this time. Fall risk: Pt is wheel chair bound at this time, due to advanced MS, the only time he is at risk is when he moves from chair to bed and vise versa. But no fall during that time. Cognitive Screening: Unable to complete due to virtual visit; need for additional assessment in future [id number] visit Do you have sleep apnea, excessive snoring or daytime drowsiness?: no Current providers sharing in care for this patient include: Patient Care Team: Teresita Garcia MD as PCP - General (Family Practice) Teresita Garcia MD as Assigned PCP Blanca Choi RN as Personal Advocate & Liaison (PAL) (Primary Care - CC) Patient has been advised of split billing requirements and indicates understanding: Yes Video Start Time: 1:17 PM Pt has been struggling with MS, and it is getting worse, it is hard for him to button his shirt, pt moves from bed and chair and vise versa, the whole house is equipped with FOCUS Trainr device so if he jrody the floor, he can call throw FOCUS Trainr device. In regards to his mood, he is depressed due to the current condition, his hands are getting worse, which makes it hard to eat, when asked about referral to therapy or medications for depression, he declined at this time, he prefer just to get help with his daily activities. Review of Systems CONSTITUTIONAL: NEGATIVE for fever, chills, change in weight ENT/MOUTH: NEGATIVE for ear, mouth and throat problems RESP: NEGATIVE for significant cough or SOB CV: NEGATIVE for chest pain, palpitations or peripheral edema Objective Vitals: No vitals were obtained today due to virtual visit. Physical Exam GENERAL: Healthy, alert and no distress RESP: No audible wheeze, cough, or visible cyanosis. No visible retractions or increased work of breathing. SKIN: Visible skin clear. No significant rash, abnormal pigmentation or lesions. NEURO: sitting in wheel chair minimal movements of the upper body. PSYCH: Mentation appears normal, affect normal/bright, judgement and insight intact, normal speech and appearance well-groomed. Assessment & Plan Advanced directives, counseling/discussion - HONORING CHOICES REFERRAL Need for shingles vaccine Not administered - ZOSTER VACCINE RECOMBINANT ADJUVANTED IM NJX - ADMIN 1st VACCINE Encounter for Medicare annual wellness exam Pt has been regressing gradually due to his MS, he would like help with his ADL, so will refer to care coordination, in regards to his depressed mood, he does not wish to start on medications or have psychotherapy on board. - C ANNUAL WELLNESS VISIT, PPS, SUBSEQUENT - CARE COORDINATION REFERRAL MS (multiple sclerosis) (H) As above, refer to care coordination to assisst with providing the appropriate help. Meanwhile, continue following up with Neurology. Teresita Garcia MD [facility] Video-Visit Details Type of service: Video Visit Video End Time:1:33 Originating Location (pt. Location): Home Distant Location (provider location): [facility] Platform used for Video Visit: [employer] documented in this encounter Plan of Treatment Upcoming Encounters Date Type Specialty Care Team Description 08/18/2022 Virtual Visit [place] [address] [place], [place] [phone] (Wo rk) Scheduled Referrals Name Type Priority Associated Diagnoses Order S chedule CARE COORDINATION Referral Routine Encounter for Medicare Ordered: 06/26/2020 REFERRAL annual wellness exam documented as of this encounter Visit Diagnoses Diagnosis Advanced directives, counseling/discussi on - Primary Other specified counseling Need for shingles vaccine Need for prophylactic vaccination and in oculation against varicella Encounter for Medicare annual wellness e xam Routine general medical examination at a health care facility MS (multiple sclerosis) (H) Multiple sclerosis documented in this encounter Additional Health Concerns Assessment Noted Time PHQ-9 Depression Total Score: 8 06/26/2020 12:57 PM CD T documented as of this encounter Care Teams Manufacturing Analyst Relationship Specialty Start Date End Date Teresita Garcia MD PCP - General Family Practice 01/22/11 [address] [place] [address] Teresita Garcia MD Assigned PCP 11/16/16 12/28/21 [address] [place] [address] documented as of this encounter
--- OUTSIDE RECORDS SUMMARY | 2022-08-16 14:26 | XMS_ITS | Encounter Summary ---
:1960 Author Organization [place] Address [address] [facility] [place] [address] Care Team Providers Name Role Phone Teresita Garcia MD Primary Care Provider Teresita Garcia MD Unavailable Reason for Visit Reason Comments Patient/info Update SB # Encounter Details Date Type Department Care Team Description 12/21/2020 Documentation Only [facility] Della Choi ent/info Update Clinic [place] JAN Rios (SB # ) [id number] [phone] [place], [place] (Work) [phone] Social History Tobacco Use Types Packs/Day [...] or relatives? How often do you attend mandaeism or Not asked pentecostal services? Do you belong to any clubs or Not asked organizations such as mandaeism groups, unions, fraternal or athletic groups, or [...] PM CDT documented as of this encounter Progress Notes Blanca Choi RN - 12/21/2020 7:48 AM CDT RN chart review Per Teresita Garcia MD list patient should be listed as SB #2 and is currently listed as SB #4 RN changed to SB #2 per pcp Blanca Choi, Registered Nurse, PAL (Patient Advocate Liason) [facility] [phone] documented in this encounter Plan of Treatment Upcoming Encounters Date Type Specialty Care Team Description 08/18/2022 Virtual Visit [place] [address] [place], [place] [phone] (Wo rk) documented as of this encounter Visit Diagnoses Not on filedocumented in this encounter Additional Health Concerns Assessment Noted Time PHQ-9 Depression Total Score: 8 06/26/2020 12:57 PM CD T documented as of this encounter Care Teams Seafood Manager Relationship Specialty Start Date End Date Teresita Garcia MD PCP - General Family Practice 01/22/11 [address] [place], [place] [phone] Teresita Garcia MD Assigned PCP 11/16/16 12/28/21 [address] [place] [address] documented as of this encounter
--- OUTSIDE RECORDS SUMMARY | 2022-08-16 14:26 | XMS_ITS | Encounter Summary ---
:1960 Author Organization [facility] Address [address] [place] [address] Care Team Providers Name Role Phone Teresita Garcia MD Primary Care Provider Teresita Garcia MD Unavailable Reason for Visit Reason Onset Date Comments Forms 09/12/2020 Physician Order Encounter Details Date Type Department Care Team Description 09/12/2020 Telephone [facility] Teresita Garcia MD Forms (Physician Order) Clinic [id number] [place] [address] [phone] Social History Tobacco Use Types Packs/Day [...] or relatives? How often do you attend mormon or Not asked adventist services? Do you belong to any clubs or Not asked organizations such as mormon groups, unions, fraternal or athletic groups, or [...] Notes Telephone Encounter - Rosy Brito - 09/12/2020 2:48 PM CST Form completed and faxed, 09/12/2020 Jackie Brito/AWILDA E DATA SPECIALIST Telephone Encounter - Rosy Brito - 09/12/2020 9:16 AM CST Received 2 page fax for Physician Order for Dr Garcia to complete. Form in the in- basket at [facility] in AA's folder. E DATA SPECIALIST documented in this encounter Plan of Treatment Upcoming Encounters Date Type Specialty Care Team Description 08/18/2022 Virtual Visit [place] [address] [place], [place] [phone] (Wo rk) documented as of this encounter Visit Diagnoses Not on filedocumented in this encounter Additional Health Concerns Assessment Noted Time PHQ-9 Depression Total Score: 8 06/26/2020 12:57 PM CD T documented as of this encounter Care Teams Explosive Ordnance Disposal Manager Relationship Specialty Start Date End Date Teresita Garcia MD PCP - General Family Practice 01/22/11 [address] [place] [address] Teresita Garcia MD Assigned PCP 11/16/16 12/28/21 [address] [place] [address] documented as of this encounter
--- OUTSIDE RECORDS SUMMARY | 2022-08-16 14:26 | XMS_ITS | Encounter Summary ---
:1960 Author Organization [place] Address [address] [facility] [place] [address] Care Team Providers Name Role Phone Teresita Garcia MD Primary Care Provider Teresita Garcia MD Unavailable Dolores Caputo INVESTIGATIVE SHOPPER Unavailable Letha Vasquez MA Unavailable Reason for Visit Reason Onset Date Comments Orders 07/27/2020 [facility] Encounter Details Date Type Department Care Team Description 07/27/2020 Telephone [facility] Teresita Garcia MD Orders ([facility] [address]) [address] [place] [phone] Social History Tobacco Use Types Packs/Day [...] or relatives? How often do you attend taoist or Not asked christian services? Do you belong to any clubs or Not asked organizations such as taoist groups, unions, fraternal or athletic groups, or [...] Telephone Encounter - Malena Hankins - 07/31/2020 4:08 PM CST Signed orders faxed. Malena Hankins Universal Grinder Tool POINTER Telephone Encounter - Malena Hankins - 07/27/2020 9:13 AM CDT Recd 6 page fax from [facility]. Please sign orders and fax to [phone]. Form in AA folder at [place]. Malena Hankins Universal Grinder Tool documented in this encounter Plan of Treatment Upcoming Encounters Date Type Specialty Care Team Description 08/18/2022 Virtual Visit [place] [address] [place], [place] [phone] (Wo rk) documented as of this encounter Visit Diagnoses Not on filedocumented in this encounter Additional Health Concerns Assessment Noted Time PHQ-9 Depression Total Score: 8 06/26/2020 12:57 PM CD T documented as of this encounter Care Teams Senior Service Aide Relationship Specialty Start Date End Date Teresita Garcia MD PCP - General Family Practice 01/22/11 [address] [place] [address] Teresita Garcia MD Assigned PCP 11/16/16 12/28/21 [address] [place], [place] [phone] Dolores Caputo, INVESTIGATIVE SHOPPER Lead Deep Well Contractor Primary Care - CC 06/27/20 09/03/20 Letha Vasquez, Community Health Worker 07/05/20 09/03/20 JAY JAY documented as of this encounter
--- OUTSIDE RECORDS SUMMARY | 2022-08-16 14:26 | XMS_ITS | Encounter Summary ---
:1960 Author Organization [place] Address [address] [place] [address] Care Team Providers Name Role Phone Teresita Garcia MD Primary Care Provider Teresita Garcia MD Unavailable Reason for Visit Reason Onset Date Comments Forms 10/01/2020 Physician Orders Encounter Details Date Type Department Care Team Description 10/01/2020 Telephone [facility] Teresita Garcia MD Forms (Physician Clinic [place] [id number] [place] [address] Orders) [address] [place], [place] [phone] Social History Tobacco Use Types Packs/Day [...] or relatives? How often do you attend denominational or Not asked latter day services? Do you belong to any clubs or Not asked organizations such as denominational groups, unions, fraternal or athletic groups, or [...] Notes Telephone Encounter - Rosy Brito - 10/02/2020 1:25 PM CST Form completed and faxed, 10/02/2020 Jackie Brito/AWILDA BURN Telephone Encounter - Rosy Brito - 10/01/2020 10:02 AM CST Received 2 page fax for Physician Orders for Dr Garcia to complete. Form in the in-basket at [facility] in 's folder. BURN documented in this encounter Plan of Treatment Upcoming Encounters Date Type Specialty Care Team Description 08/18/2022 Virtual Visit [place] [address] [place], [place] [phone] (Wo rk) documented as of this encounter Visit Diagnoses Not on filedocumented in this encounter Additional Health Concerns Assessment Noted Time PHQ-9 Depression Total Score: 8 06/26/2020 12:57 PM CD T documented as of this encounter Care Teams Mothers Helper Relationship Specialty Start Date End Date Teresita Garcia MD PCP - General Family Practice 01/22/11 [address] [place] [address] Teresita Garcia MD Assigned PCP 11/16/16 12/28/21 [address] [place] [address] documented as of this encounter
--- OUTSIDE RECORDS SUMMARY | 2022-08-16 14:26 | XMS_ITS | Encounter Summary ---
:1960 Author Organization [facility] Address [address] [facility] [place] [address] Care Team Providers Name Role Phone Teresita Garcia MD Primary Care Provider Teresita Garcia MD Unavailable Dolores Caputo HR SHARED SERVICES CONSULTANT Unavailable Letha Vasquez MA Unavailable Encounter Details Date Type Department Care Team Description 06/17/2020 Communication - [facility] Scheduling JERRI Diaz [address] [place] [address] Social History Tobacco Use Types Packs/Day Years [...] do you attend hindu or Not asked adventist services? Do you [...] Specialty Care Team Description 08/18/2022 Virtual Visit [facility] [place] [address] [place], [place] [phone] (Wo rk) documented as of this encounter Visit Diagnoses Not on filedocumented in this encounter Additional Health Concerns Assessment Noted Time PHQ-9 Depression Total Score: 8 12/02/2019 2:02 PM LONGWALL SHEARER OPERATOR documented as of this encounter Care Teams Clinical Evaluator Relationship Specialty Start Date End Date Teresita Garcia MD PCP - General Family Practice 01/22/11 [address] [place], [place] [phone] Teresita Garcia MD Assigned PCP 11/16/16 12/28/21 [address] [place], [place] [phone] Dolores Caputo, HR SHARED SERVICES CONSULTANT Lead Mannequin Mold Maker Primary Care - CC 06/27/20 09/03/20 Letha Vasquez, Community Health Worker 07/05/20 09/03/20 [place] documented as of this encounter
--- OUTSIDE RECORDS SUMMARY | 2022-08-16 14:26 | XMS_ITS | Encounter Summary ---
:1960 Author Organization [facility] Address [address] [facility] [place] [address] Care Team Providers Name Role Phone Teresita Garcia MD Primary Care Provider Teresita Garcia MD Unavailable Dolores Caputo STRATEGIC CONSULTANT Unavailable Letha Vasquez MA Unavailable Encounter Details Date Type Department Care Team Description 07/18/2020 Communication - [facility] Scheduling JERRI Diaz [address] [place] [address] Social History Tobacco Use Types [...] or relatives? How often do you attend protestant or Not asked shinto services? Do you belong to any clubs or Not asked organizations such as protestant groups, unions, fraternal or athletic groups, or [...] Virtual Visit [place] [address] [place], [place] [phone] (Wo rk) documented as of this encounter Visit Diagnoses Not on filedocumented in this encounter Additional Health Concerns Assessment Noted Time PHQ-9 Depression Total Score: 8 06/26/2020 12:57 PM CD T documented as of this encounter Care Teams Manager Of Organizational Development Relationship Specialty Start Date End Date Teresita Garcia MD PCP - General Family Practice 01/22/11 [address] [place], [place] [phone] Teresita Garcia MD Assigned PCP 11/16/16 12/28/21 [address] [place], [place] [phone] Dolores Caputo, STRATEGIC CONSULTANT Lead Director Of Preclinical Research Primary Care - CC 06/27/20 09/03/20 Letha Vasquez, Community Health Worker 07/05/20 09/03/20 [place] documented as of this encounter
--- OUTSIDE RECORDS SUMMARY | 2022-08-16 14:26 | XMS_ITS | Encounter Summary ---
:1960 Author Organization [place] Address [address] [place] [address] Care Team Providers Name Role Phone Teresita Garcia MD Primary Care Provider Teresita Garcia MD Unavailable Dolores Caputo BEAD FLIPPER Unavailable Letha Vasquez MA Unavailable Reason for Visit Reason Onset Date Comments Forms 07/25/2020 Physician Order Encounter Details Date Type Department Care Team Description 07/25/2020 Telephone [facility] Teresita Garcia MD Forms (Physician Order) Clinic [address] [phone] Social History Tobacco Use Types Packs/Day [...] do you attend hinduism or Not asked islam services? Do you [...] Notes Telephone Encounter - Rosy Brito - 07/25/2020 10:47 AM CDT Form completed and faxed, 07/25/2020 Jackie Brito/AWILDA Telephone Encounter - Rosy Brito - 07/25/2020 8:14 AM CDT Received 2 page fax for Physician Order for Dr Garcia to complete. Form in the in- basket at [facility] in AA's folder. documented in this encounter Plan of Treatment Upcoming Encounters Date Type Specialty Care Team Description 08/18/2022 Virtual Visit [place] [address] [place], [place] [phone] (Wo rk) documented as of this encounter Visit Diagnoses Not on filedocumented in this encounter Additional Health Concerns Assessment Noted Time PHQ-9 Depression Total Score: 8 06/26/2020 12:57 PM CD T documented as of this encounter Care Teams Animal Care Technician Relationship Specialty Start Date End Date Teresita Garcia MD PCP - General Family Practice 01/22/11 [address] [place] [address] Teresita Garcia MD Assigned PCP 11/16/16 12/28/21 [address] [place], [place] [phone] Dolores Caputo, PATEL Lead Sebd Teacher Primary Care - CC 06/27/20 09/03/20 Letha Vasquez, Community Health Worker 07/05/20 09/03/20 [place] documented as of this encounter
--- OUTSIDE RECORDS SUMMARY | 2022-08-16 14:26 | XMS_ITS | Encounter Summary ---
:1960 Author Organization [place] Address [facility] [place] [address] Care Team Providers Name Role Phone Teresita Garcia MD Primary Care Provider Teresita Garcia MD Unavailable Reason for Visit Reason Comments Medication Refill Encounter Details Date Type Department Care Team Description 11/25/2020 Refill [facility] Roel Garcia MD Medication Refill [address] [address] [place], [place] [phone] [place] [address] [phone] Social History Tobacco Use Types Packs/Day Years [...] do you attend religious or Not asked catholic services? Do you belong to any clubs [...] Telephone Encounter - Karen Covarrubias RN - 11/27/2020 11:54 AM CST Prescription approved per [facility] Refill Protocol. Karen Covarrubias RN, BSN Message handled by CLINIC NURSE. AD MARKER documented in this encounter Plan of Treatment Upcoming Encounters Date Type Specialty Care Team Description 08/18/2022 Virtual Visit [place] [address] [place], [place] [phone] (Wo rk) documented as of this encounter Visit Diagnoses Diagnosis Osteoporosis, unspecified osteoporosis t ype, unspecified pathological fracture presence documented in this encounter Additional Health Concerns Assessment Noted Time PHQ-9 Depression Total Score: 8 06/26/2020 12:57 PM CD T documented as of this encounter Care Teams Death Surveys Coder Relationship Specialty Start Date End Date Teresita Garcia MD PCP - General Family Practice 01/22/11 [address] [place] [address] Teresita Garcia MD Assigned PCP 11/16/16 12/28/21 [address] [place] [address] documented as of this encounter
--- OUTSIDE RECORDS SUMMARY | 2022-08-16 14:26 | XMS_ITS | Encounter Summary ---
:1960 Author Organization [place] Address [address] [facility] [place] [address] Care Team Providers Name Role Phone Teresita Garcia MD Primary Care Provider Teresita Garcia MD Unavailable Dolores Caputo VINYL HANGER Unavailable Letha Vasquez MA Unavailable Encounter Details Date Type Department Care Team Description 06/19/2020 Anesthesia - [facility] Erik [place] [address] [place] [phone] [place], [place] [phone] Social History Tobacco Use Types Packs/Day Years [...] do you attend mu-ism or Not asked moravian services? Do you [...] / COVID-19? documented as of this encounter OR Notes Anesthesia Postprocedure Evaluation - Chase Shine MD - 06/19/2020 2:46 PM CDT Patient: Dejuan Rodriguez Procedure(s): CYSTOSCOPY CYSTOLITHOLAPAXY WITH HOLMIUM LASER INTRAVESICAL BOTOX INJECTION Anesthesia type: general Patient location: PACU Last vitals: Vitals Value Taken Time BP 139/72 06/19/2020 3:17 PM Temp 36.8 ??C (98.2 ??F) 06/19/2020 3:17 PM Pulse 79 06/19/2020 3:17 PM Resp 20 06/19/2020 3:17 PM SpO2 94 % 06/19/2020 3:17 PM Post vital signs: stable Level of consciousness: alert Post-anesthesia pain: pain controlled Post-anesthesia nausea and vomiting: no Pulmonary: room air Cardiovascular: stable and blood pressure at baseline Hydration: adequate Anesthetic events: no QCDR Measures: ASA# 11 - Suad-op Cardiac Arrest: ASA11B - Patient did NOT experience unanticipated cardiac arrest ASA# 12 - Suad-op Mortality Rate: ASA12B - Patient did NOT ASA# 13 - PACU Re-Intubation Rate: ASA13B - Patient did NOT require a new airway mgmt ASA# 10 - Composite Anes Safety: ASA10A - No serious adverse event Additional Notes: Anesthesia Preprocedure Evaluation - Chase Shine MD - 06/19/2020 11:28 AM CDT Anesthesia Evaluation Patient summary reviewed No history of anesthetic complications Airway Mallampati: I Neck ROM: full Pulmonary - negative ROS and normal exam Cardiovascular - negative ROS and normal exam Exercise tolerance: < 4 METS Neuro/Psych (+) neuromuscular disease, depression, Endo/Other - negative ROS GI/Hepatic/Renal - negative ROS Other findings: Has MS with spastic paraplegia, neurogenic bowel and bladder, bladder spasms, bladder stones, juvenile osteochondrosis hip and pelvis, ncnv-pzyhm-ubrygdq disease, venous stasis, acquired pseudomeningocele. Covis negative 06/15. Old labs reviewed and were ok. Remote h/o episode of depression. Dental - normal exam Anesthesia Plan Planned anesthetic: general endotracheal ASA 3 Induction: intravenous Anesthetic plan and risks discussed with: patient Anesthesia plan special considerations: antiemetics, Post-op plan: routine recovery documented in this encounter Miscellaneous Notes Anesthesia Care Transfer Note - Kamar Capone APRN CRNA - 06/19/2020 2:03 PM CDT Last vitals: Vitals: 06/19/20 1112 BP: 124/70 Pulse: 87 Resp: 16 Temp: 36.9 ??C (98.4 ??F) SpO2: 96% Patient's level of consciousness is awake Spontaneous respirations: yes Maintains airway independently: yes Dentition unchanged: yes Oropharynx: oropharynx clear of all foreign objects QCDR Measures: ASA# 20 - Surgical Safety Checklist: WHO surgical safety checklist completed prior to induction PQRS# 430 - Adult PONV Prevention: 4558F - Pt received => 2 anti-emetic agents (different classes) preop & intraop ASA# 8 - Peds PONV Prevention: NA - Not pediatric patient, not GA or 2 or more risk factors NOT present PQRS# 424 - Usad-op Temp Management: 4559F - At least one body temp DOCUMENTED => 35.5C or 95.9F within required timeframe PQRS# 426 - PACU Transfer Protocol:G9655 - Transfer of care checklist used ASA# 14 - Acute Post-op Pain: ASA14B - Patient did NOT experience pain >= 7 out of 10 documented in this encounter Plan of Treatment Upcoming Encounters Date Type Specialty Care Team Description 08/18/2022 Virtual Visit [facility] [address] [place], [place] [phone] (Wo rk) documented as of this encounter Visit Diagnoses Not on filedocumented in this encounter Additional Health Concerns Assessment Noted Time PHQ-9 Depression Total Score: 8 12/02/2019 2:02 PM SAP SOLUTIONS ARCHITECT documented as of this encounter Care Teams Cleaning Machine Operator Relationship Specialty Start Date End Date Teresita Garcia MD PCP - General Family Practice 01/22/11 [address] [place] [phone] Teresita Garcia MD Assigned PCP 11/16/16 12/28/21 [address] [place], [place] [phone] Dolores Caputo, VINYL HANGER Lead Graining Machine Operator Primary Care - CC 06/27/20 09/03/20 Letha Vasquez, Community Health Worker 07/05/20 09/03/20 [place] documented as of this encounter
--- OUTSIDE RECORDS SUMMARY | 2022-08-16 14:26 | XMS_ITS | Encounter Summary ---
:1960 Author Organization [place] Address [address] [facility] [place] [address] Care Team Providers Name Role Phone Teresita Garcia MD Primary Care Provider Teresita Garcia MD Unavailable Encounter Details Date Type Department Care Team Description 11/27/2020 Medical Correspondence [facility] Scan, PLAN OF CARE [facility] Health Info [facility] Non-Provider [facility] [address] [place] [phone] Social History Tobacco Use Types Packs/Day [...] or relatives? How often do you attend moravian or Not asked confucianist services? Do you belong to any clubs or Not asked organizations such as moravian groups, unions, fraternal or athletic groups, or [...] Virtual [place] [address] [place], [place] [phone] (Wo rk) documented as of this encounter Visit Diagnoses Not on filedocumented in this encounter Additional Health Concerns Assessment Noted Time PHQ-9 Depression Total Score: 8 06/26/2020 12:57 PM CD T documented as of this encounter Care Teams Anthropology Professor Relationship Specialty Start Date End Date Teresita Garcia MD PCP - General Family Practice 01/22/11 [address] [place] [address] Teresita Garcia MD Assigned PCP 11/16/16 12/28/21 [address] [place], [place] [phone] documented as of this encounter
--- OUTSIDE RECORDS SUMMARY | 2022-08-16 14:26 | XMS_ITS | Encounter Summary ---
:1960 Author Organization [place] Address [address] [place] [address] Care Team Providers Name Role Phone Teresita Garcia MD Primary Care Provider Teresita Garcia MD Unavailable Encounter Details Date Type Department Care Team Description 06/12/2020 Travel Social History Tobacco Use Types Packs/Day [...] do you attend christianity or Not asked hoahaoism services? Do you belong to any clubs [...] Virtual [place] [address] [place], [place] [phone] (Wo rk) documented as of this encounter Visit Diagnoses Not on filedocumented in this encounter Additional Health Concerns Assessment Noted Time PHQ-9 Depression Total Score: 8 12/02/2019 2:02 PM PROTECTIVE SERVICES SOCIAL WORKER documented as of this encounter Care Teams Research Project Manager Relationship Specialty Start Date End Date Teresita Garcia MD PCP - General Family Practice 01/22/11 [address] [place] [address] Teresita Garcia MD Assigned PCP 11/16/16 12/28/21 [address] [place], [place] [phone] documented as of this encounter
--- OUTSIDE RECORDS SUMMARY | 2022-08-16 14:26 | XMS_ITS | Encounter Summary ---
:1960 Author Organization [place] Address [address] [facility] [place] [address] Care Team Providers Name Role Phone Teresita Garcia MD Primary Care Provider Teresita Garcia MD Unavailable Reason for Visit Reason Onset Date Comments Home Care/Hospice 11/13/2020 orders Encounter Details Date Type Department Care Team Description 11/13/[address] [facility] Teresita Garcia MD Home Care/Hospice [facility] [place] [id number] [place] [address] (orders) [id number] [place] [phone] Social History Tobacco Use Types [...] or relatives? How often do you attend rastafarian or Not asked oriental orthodox services? Do you belong to any clubs or Not asked organizations such as rastafarian groups, unions, fraternal or athletic groups, or [...] this encounter Miscellaneous Notes Telephone Encounter - Nhi Malena - 11/15/2020 3:25 PM CST Signed form faxed. Malenalacho Hankins Slab Grinder L MOCKUP MAKER Telephone Encounter - Bella Harden - 11/14/2020 9:01 AM CST Received 1 page fax from [facility] for orders. Placed in AA's folder. Please fax completed form to [phone]. Bella Harden Slab Grinder L MOCKUP MAKER Telephone Encounter - Karen Covarrubias RN - 11/13/2020 1:24 PM CST Homecare Orders Requested: Jacqueline at from [facility] called to request orders for the following Services: Home Health Aide for:2 times a week with shower and [facility] Homecare agency to fax orders over for review and signature of PCP, verbal orders provided, FYI to AA Karen Covarrubias RN, BSN Message handled by CLINIC NURSE. L MOCKUP MAKER documented in this encounter Plan of Treatment Upcoming Encounters Date Type Specialty Care Team Description 08/18/2022 Virtual Visit [place] [address] [place], [place] [phone] (Wo rk) documented as of this encounter Visit Diagnoses Not on filedocumented in this encounter Additional Health Concerns Assessment Noted Time PHQ-9 Depression Total Score: 8 06/26/2020 12:57 PM CD T documented as of this encounter Care Teams Wedding Planner Relationship Specialty Start Date End Date Teresita Garcia MD PCP - General Family Practice 01/22/11 [address] [place], [place] [phone] Teresita Garcia MD Assigned PCP 11/16/16 12/28/21 [address] [place] [address] documented as of this encounter
--- OUTSIDE RECORDS SUMMARY | 2022-08-16 14:26 | XMS_ITS | Encounter Summary ---
:1960 Author Organization [place] Address [facility] [place] [address] Care Team Providers Name Role Phone Teresita Garcia MD Primary Care Provider Teresita Garcia MD Unavailable Reason for Visit Reason Onset Date Comments Forms 11/21/2020 Plan of Care Encounter Details Date Type Department Care Team Description 11/21/2020 Telephone [facility] Roel Garcia MD Forms (Plan of Care) [id number] [place] [phone] Social History Tobacco Use Types Packs/Day Years [...] do you attend tenriism or Not asked quaker services? Do you [...] Telephone Encounter - Rosy Brito - 11/27/2020 8:41 AM CST Form completed and faxed, 11/27/2020 Jackie Brito/AWILDA MBLER TRIM Telephone Encounter - Rosy Brito - 11/21/2020 11:56 AM CST Received 6 page fax for Plan of Care for Dr Garcia to complete. Form in the in- basket at [facility] in 's folder. MBLER TRIM documented in this encounter Plan of Treatment Upcoming Encounters Date Type Specialty Care Team Description 08/18/2022 Virtual Visit [place] [address] [place] [address] (Wo rk) documented as of this encounter Visit Diagnoses Not on filedocumented in this encounter Additional Health Concerns Assessment Noted Time PHQ-9 Depression Total Score: 8 06/26/2020 12:57 PM CD T documented as of this encounter Care Teams Manager Client Service Relationship Specialty Start Date End Date Teresita Garcia MD PCP - General Family Practice 01/22/11 [address] [place] [address] Teresita Garcia MD Assigned PCP 11/16/16 12/28/21 [address] [place] [address] documented as of this encounter
--- OUTSIDE RECORDS SUMMARY | 2022-08-16 14:26 | XMS_ITS | Encounter Summary ---
:1960 Author Organization [place] Address [address] [facility] [place] [address] Care Team Providers Name Role Phone Teresita Garcia MD Primary Care Provider Teresita Garcia MD Unavailable Encounter Details Date Type Department Care Team Description 06/13/2020 Medical Correspondence [facility] Scan, PLAN OF CARE [employer] Non-Provider [facility] [address] [place] [address] Social History Tobacco Use Types [...] or relatives? How often do you attend muslim or Not asked denominational services? Do you belong to any clubs or Not asked organizations such as muslim groups, unions, fraternal or athletic groups, or [...] for the very basics like Not v eno hard 07/05/2020 food, housing, medical care, and [...] Virtual Visit [place] [address] [place], [place] [phone] (Wo rk) documented as of this encounter Visit Diagnoses Not on filedocumented in this encounter Additional Health Concerns Assessment Noted Time PHQ-9 Depression Total Score: 8 12/02/2019 2:02 PM WAREHOUSE SUPERVISOR 3RD SHIFT documented as of this encounter Care Teams Radio Script Writer Relationship Specialty Start Date End Date Teresita Garcia MD PCP - General Family Practice 01/22/11 [address] [place], [place] [phone] Teresita Garcia MD Assigned PCP 11/16/16 12/28/21 [address] [place] [address] documented as of this encounter
--- OUTSIDE RECORDS SUMMARY | 2022-08-16 14:26 | XMS_ITS | Encounter Summary ---
:1960 Author Organization [place] Address [address] [facility] [place] [address] Care Team Providers Name Role Phone Teresita Garcia MD Primary Care Provider Teresita Garcia MD Unavailable Dolores Caputo PAPER COATING SUPERVISOR Unavailable Letha Vasquez MA Unavailable Encounter Details Date Type Department Care Team Description 07/30/2020 Medical Correspondence [facility] Scan, PLAN OF CARE [employer] [facility] Non-Provider [facility] [address] [place] [phone] Social History Tobacco Use Types Packs/Day [...] do you attend moravian or Not asked anglican services? Do you [...] Virtual [place] [address] [place], [place] [phone] (Wo rk) documented as of this encounter Visit Diagnoses Not on filedocumented in this encounter Additional Health Concerns Assessment Noted Time PHQ-9 Depression Total Score: 8 06/26/2020 12:57 PM CD T documented as of this encounter Care Teams Refresh Technician Relationship Specialty Start Date End Date Teresita Garcia MD PCP - General Family Practice 01/22/11 [address] [place], [place] [phone] Teresita Garcia MD Assigned PCP 11/16/16 12/28/21 [address] [place], [place] [phone] Dolores Caputo, PAPER COATING SUPERVISOR Lead Riveter Hand Primary Care - CC 06/27/20 09/03/20 Letha Vasquez, Community Health Worker 07/05/20 09/03/20 JAY JAY documented as of this encounter
--- OUTSIDE RECORDS SUMMARY | 2022-08-16 14:26 | XMS_ITS | Encounter Summary ---
:1960 Author Organization [place] Address [address] [facility] [place] [address] Care Team Providers Name Role Phone Teresita Garcia MD Primary Care Provider Teresita Garcia MD Unavailable Encounter Details Date Type Department Care Team Description 06/19/2020 Hospital Encounter [facility] MD ayah Bladder stones [facility] [address] [place] [address] [place], [place] [phone] [address] Social History Tobacco Use Types Packs/Day Years [...] you attend roman catholic or Not asked buddhism services? Do you belong to any clubs [...] 3:18 PM CDT documented in this encounter Medications at Time of Discharge Medication Sig Dispensed Refills Start Date End Date Calcium Take 1 tablet by 0 06/08/2017 Carb-Cholecalciferol mouth 2 times daily (CALCIUM + D3) 600-800 MG-UNIT TABS Docusate Sodium (COLACE 0 PO) polyethylene glycol Take 17 g by mouth 0 (MIRALAX) powder daily as needed alendronate (FOSAMAX) 70 TAKE 1 TABLET ONCE 12 tablet 1 09/201911/27/2020 MG tabletIndications: WEEKLY 60 MIN BEFORE Osteoporosis, MORNING MEAL WITH 8OZ unspecified osteoporosis OF WATER, STAY type, unspecified UPRIGHT FOR 30 pathological fracture MINUTES presence baclofen (LIORESAL) 10 Take 1 tablet by 0 020 04/12/2021 MG tablet mouth every 6 hours as needed For acute withdrawal gabapentin (NEURONTIN) Take 400 mg by mouth 0 10/201904/12/2021 400 MG capsule 3 times daily And pt takes 600 mg at night time. gabapentin (NEURONTIN) Take 600 mg by mouth 0 10/201904/12/2021 600 MG tablet At Bedtime ketoconazole (NIZORAL) 2 APPLY TOPICALLY 120 mL 10 09/201904/16/2021 % external DIRECTED ONCE WEEKLY shampooIndications: Seborrheic dermatitis of scalp ocrelizumab (OCREVUS) Inject into the vein 0 06/26/2020 300 MG/10ML SOLN once injection pramipexole (MIRAPEX) Take by mouth 3 times 0 04/12/2021 0.125 MG tablet daily. tadalafil (CIALIS) 20 MG Take 20 mg by mouth 0 04/12/2021 tablet daily as needed documented as of this encounter Progress Notes Karen Venegas - 06/18/2020 3:33 PM CDT Was very upset that his time of surgery was changed as he has to schedule a ride documented in this encounter H&P Notes Dax Menon MD - 06/19/2020 11:21 AM CDT I have performed an assessment and examined the patient, as necessary, to update the patient's current status that may have changed since the prior History and Physical. The History & Physical has been reviewed and no updates are needed. documented in this encounter Nursing Notes Jade Pang RN - 06/19/2020 4:16 PM CDT Report given to Rena RN at 1615 documented in this encounter Miscellaneous Notes Op Note - Dax Menon MD - 06/19/2020 1:52 PM CDT Date of surgery: 06/19/20 Place of Surgery: [facility] Surgeon: Dax Menon MD Anesthesia: General Preoperative diagnosis: 1. Multiple sclerosis 2. Neurogenic bladder 3. Bladder stones Postoperative diagnosis: 1. Multiple sclerosis 2. Neurogenic bladder 3. Bladder stones Procedure: 1. Cystoscopy 2. Cystolitholapaxy with holmium laser lithotripsy 3. Intravesical Botox injection Drains: 18 St Helenian silicone Valenzuela catheter Specimens: Bladder stones Estimated blood loss: 5 cc Complications: None Operative findings: Multiple small bladder stones. Operative indication: This is a 59 year old male with neurogenic bladder secondary to multiple sclerosis. He has been struggling with sediment and poor drainage from his Valenzuela. He underwent recent CT which revealed a 2 cm bladder stone. He has elected for cystolitholapaxy. He would like his scheduled intravesical Botox also administered at the same time. Operative procedure: After appropriate informed consent was obtained the patient was brought to the operating theater. Hewas laid in supine position. General anesthesia was induced. The patient was then placed in a dorsallithotomy position and prepped and draped in the usual sterile fashion. Perioperative antibiotics were administered and a time out was performed. A cystoscope was inserted into the urethral meatus and carried to the level of the bladder. The bladder was inspected. The ureteral orifices were identified. There were several bladder stones held together in a light matrix in the dependent portion of the bladder. There were no masses. A 550 micron laser fiber was inserted and the stones were fragmented into small piece. These were irrigated free from the bladder until none remained. A cystoscopic needle was inserted through the scope and 300 units of Botox in 10 cc of sterile sterile were injected in 0.5 cc aliquots along the posterior wall and trigone. A 18 [place] Helenian silicone Valenzuela was then inserted and placed to gravity drainage. This concluded the procedure. The patient was awoken from anesthesia and brought to the recovery room in satisfactory condition. Disposition: Recovery room then home. He desires to have a suprapubic tube instead of a Valenzuela catheter. We will arrange this in the coming weeks with Interventional Radiology. Dax Menon MD documented in this encounter Plan of Treatment Upcoming Encounters Date Type Specialty Care Team Description 08/18/2022 Virtual Visit Family [facility] [place] [address] [place], [place] [phone] (Wo rk) documented as of this encounter Procedures Procedure Name Priority Date/Time Associated Diagnosis Comme nts STONE ANALYSIS Routine 06/19/2020 1:53 PM Results for this CDT procedure are i n the results section . documented in this encounter Results Stone analysis (06/19/2020 1:53 PM CDT) P athologist Signature Stone Mass See Note mg 06/25/2020 [facility] 2:30 PM CDT LABORATORIES Comment: Specimen mass: 2.15 grams Calculi Number Numerous 06/25/2020 2:30 PM CDT [facility] Calculi Size Various mm 06/25/2020 2:30 PM CDT [facility] Calculi Description See Note 06/25/2020 2:30 PM C DT [employer] Comment: Specimen received wet, not the preferred dry state. Wet specimens often delay analysis. Specimen consists of numerous, various s ized (some larger than 9 mm), fam/light fam, irregular calculi fragmen ts. Stone Composition See Note 06/25/2020 2:30 PM CDT [facility] Comment: Calculi composed primarily of: 30% magnesium ammonium phosphate (struvi te), and 70% calcium phosphate (hydroxy- and carb titus- apatite). INTERPRETIVE INFORMATION: Calculi (Stone ) analysis Calculi are the products of physiologica l processes that yield crystalline compounds in a matrix of bio logical compounds and blood. ??Matrix components are not repor hanna. ??The clinically significant crystalline components ident ified in calculi specimens are reported. ??Gross description may no t be consistent with composition determined by FTIR analysis. Performed By: [employer] [address] [place] [id number] Service Employee: Iona Lauren MD Specimen Anatomical Collection Method Collection Time Receive d Time (Source) Location / / Volume Laterality Calculus URINARY BLADDER 06/19/2020 1:53 PM 2019 3:09 specimen STRUCTURE / CDT PM CDT (specimen) Unknown Dax Menon MD LAB - BODY FLUIDS ORDERABLES Performing Organization Address City/State/ZIP Code Phon e Number [employer] [place], [place] [phone] [place] [phone] [employer] [address] [place] [phone] documented in this encounter Visit Diagnoses Diagnosis Bladder stones Other calculus in bladder documented in this encounter Additional Health Concerns Assessment Noted Time PHQ-9 Depression Total Score: 8 12/02/2019 2:02 PM RN ED documented as of this encounter Care Teams News Editor Relationship Specialty Start Date End Date Teresita Garcia MD PCP - General Family Practice 01/22/11 [address] [place], [place] [phone] Teresita Garcia MD Assigned PCP 11/16/16 12/28/21 [address] [place], [place] [phone] documented as of this encounter
--- OUTSIDE RECORDS SUMMARY | 2022-08-16 14:26 | XMS_ITS | Encounter Summary ---
:1960 Author Organization [place] Address [facility] [place] [address] Care Team Providers Name Role Phone Teresita Garcia MD Primary Care Provider Teresita Garcia MD Unavailable Reason for Visit Reason Onset Date Comments Forms 10/01/2020 Plan of Care Encounter Details Date Type Department Care Team Description 10/01/[address] [facility] Roel Garcia MD Forms (Plan of Care) [id number] [place] [phone] [phone] Social History Tobacco Use Types Packs/Day Years [...] do you attend anglican or Not asked jain services? Do you belong to any clubs [...] Form completed and faxed, 10/02/2020 Jackie Brito/AWILDA R FEEDER Telephone Encounter - Rosy Brito - 10/01/2020 9:58 AM CST Received 6 page fax for Plan of Care for Dr Garcia to complete. Form in the in- basket at [facility] in 's folder. R FEEDER documented in this encounter Plan of Treatment Upcoming Encounters Date Type Specialty Care Team Description 08/18/2022 Virtual Visit [place] [address] [place] [address] (Wo rk) documented as of this encounter Visit Diagnoses Not on filedocumented in this encounter Additional Health Concerns Assessment Noted Time PHQ-9 Depression Total Score: 8 06/26/2020 12:57 PM CD T documented as of this encounter Care Teams Licensed Sales Producer Relationship Specialty Start Date End Date Teresita Garcia MD PCP - General Family Practice 01/22/11 [address] [place] [address] Teresita Garcia MD Assigned PCP 11/16/16 12/28/21 [address] [place] [address] documented as of this encounter
--- OUTSIDE RECORDS SUMMARY | 2022-08-16 14:27 | XMS_ITS | Encounter Summary ---
:1960 Author Organization [place] Address [facility] [place] [address] Care Team Providers Name Role Phone Teresita Garcia MD Primary Care Provider Teresita Garcia MD Unavailable Reason for Visit Reason Onset Date Comments Results 04/06/2020 Encounter Details Date Type Department Care Team Description 04/06/2020 Telephone [facility] Roel Garcia MD Results [place] [address] [facility] [address] [place], [place] [phone] [place] [address]283 [phone] Social History Tobacco Use Types Packs/Day Years [...] do you attend restorationism or Not asked sikh services? Do you [...] been in contact with No / Unsure 04/04/2020 1:23 PM CDT someone who was confirmed or suspected to have Coronavirus / COVID-19? documented as of this encounter Miscellaneous Notes Telephone Encounter - Mary More RN - 04/06/2020 1:31 PM CDT Called patient and discussed below. Patient agrees with plan. Mary More RN Telephone Encounter - Teresita Garcia MD - 04/06/2020 1:24 PM CDT Pt does have osteopenia on his Dexa scan, given that he did have a fragile fracture in the past, I recommend we continue on fosamax (usually I keep the medicine for total 5 years) and sometimes longer if needed. documented in this encounter Plan of Treatment Upcoming Encounters Date Type Specialty Care Team Description 08/18/2022 Virtual Visit [place] [address] [place], [place] [phone] (Wo rk) documented as of this encounter Visit Diagnoses Not on filedocumented in this encounter Additional Health Concerns Assessment Noted Time PHQ-9 Depression Total Score: 8 12/02/2019 2:02 PM FIBERGLASS PRODUCT TESTER documented as of this encounter Care Teams Hydraulic Governor Assembler Relationship Specialty Start Date End Date Teresita Garcia MD PCP - General Family Practice 01/22/11 [address] [place] [address] Teresita Garcia MD Assigned PCP 11/16/16 12/28/21 [address] [place], [place] [phone] documented as of this encounter
--- OUTSIDE RECORDS SUMMARY | 2022-08-16 14:27 | XMS_ITS | Encounter Summary ---
:1960 Author Organization [place] Address [address] [place] [address] Care Team Providers Name Role Phone Teresita Garcia MD Primary Care Provider Teresita Garcia MD Unavailable Reason for Visit Reason Onset Date Comments Forms 03/16/2020 Physician Order Encounter Details Date Type Department Care Team Description 03/16/2020 Telephone [facility] Teresita Garcia MD Forms (Physician Order) Clinic [address] [place] [phone] Social History Tobacco Use Types Packs/Day [...] or relatives? How often do you attend yazdanism or Not asked pentecostal services? Do you belong to any clubs or Not asked organizations such as yazdanism groups, unions, fraternal or athletic groups, or [...] Notes Telephone Encounter - Rosy Brito - 03/16/2020 11:16 AM CDT Form completed and faxed, 03/16/2020 Jackie Brito/AWILDA Telephone Encounter - Rosy Brito - 03/16/2020 10:29 AM CDT Received 3 page fax for Physician Order for Dr Garcia to complete. Form in the in- basket at [facility] in AA's folder. documented in this encounter Plan of Treatment Upcoming Encounters Date Type Specialty Care Team Description 08/18/2022 Virtual Visit [place] [address] [place], [place] [phone] (Wo rk) documented as of this encounter Visit Diagnoses Not on filedocumented in this encounter Additional Health Concerns Assessment Noted Time PHQ-9 Depression Total Score: 8 12/02/2019 2:02 PM LANDFILL GRADER documented as of this encounter Care Teams Kier Hand Relationship Specialty Start Date End Date Teresita Garcia MD PCP - General Family Practice 01/22/11 [address] [place] [address] Teresita Garcia MD Assigned PCP 11/16/16 12/28/21 [address] [place] [address] documented as of this encounter
--- OUTSIDE RECORDS SUMMARY | 2022-08-16 14:27 | XMS_ITS | Encounter Summary ---
:1960 Author Organization [place] Address [address] [facility] [place] [address] Care Team Providers Name Role Phone Teresita Garcia MD Primary Care Provider Teresita Garcia MD Unavailable Encounter Details Date Type Department Care Team Description 03/12/2020 Medical Correspondence [facility] [place] Scan, [facility] Health Info Mgmt Non-Provider HEALTH/HOSP ICE [facility] [address] [place] [address] Social History Tobacco Use Types [...] many times do you More than three farncisco javier es a week 07/05/2020 talk on the phone with family, friends, or neighbors? How often do you get together with friends Not asked or relatives? How often do you attend christian or Not asked nondenominational services? Do you belong to any clubs or Not asked organizations such as christian groups, unions, fraternal or athletic groups, or [...] Virtual Visit [place] [address] [place] [address] (Wo rk) documented as of this encounter Visit Diagnoses Not on filedocumented in this encounter Additional Health Concerns Assessment Noted Time PHQ-9 Depression Total Score: 8 12/02/2019 2:02 PM BALANCE WHEEL MOTION INSPECTOR documented as of this encounter Care Teams Senior Php Developer Relationship Specialty Start Date End Date Teresita Garcia MD PCP - General Family Practice 01/22/11 [address] [place] [address] Teresita Garcia MD Assigned PCP 11/16/16 12/28/21 [address] [place] [address] documented as of this encounter
--- OUTSIDE RECORDS SUMMARY | 2022-08-16 14:27 | XMS_ITS | Encounter Summary ---
:1960 Author Organization [place] Address [address] [facility] [address] Care Team Providers Name Role Phone Teresita Garcia MD Primary Care Provider Teresita Garcia MD Unavailable Dolores Caputo STAMPING DIE MAKER BENCH Unavailable Letha Vasquez MA Unavailable Audrey Hickman MD Unavailable [phone] Reason for Visit Reason Onset Date Comments Forms 05/23/2020 [facility] Encounter Details Date Type Department Care Team Description 05/23/2020 [facility] Teresita Garcia MD Forms ([address]) [address] [place] [phone] Social History Tobacco Use Types Packs/Day Years [...] or relatives? How often do you attend restoration or Not asked scientologist services? Do you belong to any clubs or Not asked organizations such as restoration groups, unions, fraternal or athletic groups, or [...] Notes Telephone Encounter - Malena Hankins - 05/23/2020 12:49 PM CDT Recd 6 page fax from [facility]. Please sign Plan of Care orders and fax to [phone]. Form in AA folder at [place]. Malena Hankins Hose Operator documented in this encounter Plan of Treatment Upcoming Encounters Date Type Specialty Care Team Description 08/18/2022 Virtual Visit [place] [address] [place], [place] [phone] (Wo rk) documented as of this encounter Visit Diagnoses Not on filedocumented in this encounter Additional Health Concerns Assessment Noted Time PHQ-9 Depression Total Score: 8 12/02/2019 2:02 PM INKER documented as of this encounter Care Teams Medical Lab Technician Relationship Specialty Start Date End Date Teresita Garcia MD PCP - General Family Practice 01/22/11 [address] [place] [address] Teresita Garcia MD Assigned PCP 11/16/16 12/28/21 [address] [place] [address] Dolores Caputo, PATEL Lead Attractions Associate Primary Care - CC 06/27/20 09/03/20 Letha Vasquez, Community Health Worker 07/05/20 09/03/20 [place] Audrey Hickman Assigned PCP 12/29/21 [place] [address] [place] [address] documented as of this encounter
--- OUTSIDE RECORDS SUMMARY | 2022-08-16 14:27 | XMS_ITS | Encounter Summary ---
:1960 Author Organization [place] Address [facility] [place] [address] Care Team Providers Name Role Phone Teresita Garcia MD Primary Care Provider Teresita Garcia MD Unavailable Reason for Visit Reason Comments Medication Refill Encounter Details Date Type Department Care Team Description 05/27/2020 Refill [facility] Roel Garcia MD Medication Refill [place] [id number] [place] [address] [place], [place] [phone] [place] [address] [phone] Social History Tobacco Use Types Packs/Day Years [...] or relatives? How often do you attend voodoo or Not asked pentecostal services? Do you belong to any clubs or Not asked organizations such as voodoo groups, unions, fraternal or athletic groups, or [...] this encounter Miscellaneous Notes Telephone Encounter - Haily Adams, RN - 05/29/2020 7:56 AM CDT Prescription approved per [facility] Refill Protocol. Haily Adams RN documented in this encounter Plan of Treatment Upcoming Encounters Date Type Specialty Care Team Description 08/18/2022 Virtual Visit [place] [address] [place] [address] (Wo rk) documented as of this encounter Visit Diagnoses Diagnosis Seborrheic dermatitis of scalp - Primary Other seborrheic dermatitis Osteoporosis, unspecified osteoporosis t ype, unspecified pathological fracture presence documented in this encounter Additional Health Concerns Assessment Noted Time PHQ-9 Depression Total Score: 8 12/02/2019 2:02 PM PARTY PLAN SALES DIRECTOR documented as of this encounter Care Teams Relationship Banker Relationship Specialty Start Date End Date Teresita Garcia MD PCP - General Family Practice 01/22/11 [address] [place] [address] Teresita Garcia MD Assigned PCP 11/16/16 12/28/21 [address] [place] [address] documented as of this encounter
--- OUTSIDE RECORDS SUMMARY | 2022-08-16 14:27 | XMS_ITS | Encounter Summary ---
:1960 Author Organization [place] Address [address] [place] [address]. [place] [address] Care Team Providers Name Role Phone Teresita Garcia MD Primary Care Provider Teresita Garcia MD Unavailable Encounter Details Date Type Department Care Team Description 05/19/2020 Medical Correspondence [facility] Scan, PLAN OF CARE Health Info Mgmt Non-Provider 05/19/20 - 1 Srs [facility] [address] [place] [address]/[place] [address] Social History Tobacco Use Types [...] or relatives? How often do you attend yazidism or Not asked protestant services? Do you belong to any clubs or Not asked organizations such as yazidism groups, unions, fraternal or athletic groups, or [...] Virtual [place] [address] [place], [place] [phone] (Wo rk) documented as of this encounter Visit Diagnoses Not on filedocumented in this encounter Additional Health Concerns Assessment Noted Time PHQ-9 Depression Total Score: 8 12/02/2019 2:02 PM COLLEGE PRESIDENT documented as of this encounter Care Teams Medical Biller/Coder Relationship Specialty Start Date End Date Teresita Garcia MD PCP - General Family Practice 01/22/11 [address] [place] [address] Teresita Garcia MD Assigned PCP 11/16/16 12/28/21 [address] [place] [address] documented as of this encounter
--- OUTSIDE RECORDS SUMMARY | 2022-08-16 14:27 | XMS_ITS | Encounter Summary ---
:1960 Author Organization [place] Address [address] [facility] [place] [address] Care Team Providers Name Role Phone Teresita Garcia MD Primary Care Provider Teresita Garcia MD Unavailable Encounter Details Date Type Department Care Team Description 04/10/2020 Medical Correspondence [facility] Scan, PLAN OF CARE [facility] Non-Provider HOME HEALTH /HOSPICE Srvcs [address] [place] [address] Social History Tobacco Use Types [...] do you attend jewish or Not asked gnosticist services? 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
--- OUTSIDE RECORDS SUMMARY | 2022-08-16 14:27 | XMS_ITS | Encounter Summary ---
:1960 Author Organization [facility] Address [address] [facility] [place] [address] Care Team Providers Name Role Phone Teresita Garcia MD Primary Care Provider Teresita Garcia MD Unavailable Reason for Visit Reason Onset Date Comments Pre-Op Exam Imm/Inj 06/12/2020 Flu Shot Encounter Details Date Type Department Care Team Description 06/12/2020 Office Visit [facility] Albina Andujar eneral physical exam (Primary Dx); [facility] DEVORAH Quiñonez Bladder stone; [id number] [place] [address] Need for prophylactic vaccin ation and inoculation against influenza [place], [place] [address] [address] [place], [place] [phone] [id number] Social History Tobacco Use Types Packs/Day Years [...] do you attend sikh or Not asked temple services? Do you belong to any clubs [...] Sign Reading Time Taken Comments Blood Pressure 106/72 06/12/2020 10:08 AM CDT Pulse 84 06/12/2020 10:08 AM CDT Temperature 36.7 ??C (98.1 ??F) 06/12/2020 10:08 AM CDT Respiratory Rate - - Oxygen Saturation 96% 06/12/2020 10:08 AM CDT Inhaled Oxygen Concentration - - Weight - - Height - - Body Mass Index - - documented in this encounter Patient Instructions Patient InstructionsDolores Higgins MA - 06/12/2020 10:00 AM CDT Preparing for Your Surgery Getting started A surgery nurse will call you to review your health history and instructions. They will give you an arrival time based on your scheduled surgery time. Please be ready to share the following: ?? Your doctor's clinic name and phone number ?? Your medical, surgical and anesthesia history ?? A list of allergies and sensitivities ?? A list of medicines, including herbal treatments and qgvi-byn-tzxsmfm drugs ?? Whether the patient has a legal guardian (ask how to send us the papers in advance) If your child is having surgery, please ask for a copy of Preparing for Your Child's Surgery. Preparing for surgery ?? Within 30 days of surgery: Have an exam at your family clinic (primary care clinic), or go to a pre-operative clinic. This exam is called a History and Physical, or H&P. ?? At your H&P exam, talk to your care team about all medicines you take. If you need to stop any medicines before surgery, ask when to start taking them again. ? We do this for your safety. Many medicines can make you bleed too much during surgery. Some changehow well surgery (anesthesia) drugs work. ?? Call your insurance company to see what it will and won't pay for. Ask if they need to pre-approve the surgery. (If no insurance, call [phone].) ?? Call your surgeon's clinic if there's any change in your health. This includes signs of a cold orflu (sore throat, runny nose, cough, rash, fever). It also includes a scrape or scratch near the surgery site. ?? If you have questions on the day of surgery, call your surgery center. Eating and drinking guidelines For your safety: Unless your surgeon tells you otherwise, follow the guidelines below. ?? Eat and drink as usual until 8 hours before surgery. After that, no food or milk. ?? Drink clear liquids until 2 hours before surgery. These are liquids you can see through, like water, Gatorade and Propel Water. You may also have black coffee and tea (no cream or milk). ?? Nothing by mouth within 2 hours of surgery. This includes gum, candy and breath mints. ?? Stop alcohol the midnight before surgery. ?? If your family clinic tells you to take medicine on the morning of surgery, it's okay to take it with a sip of water. Preventing infection ?? Shower or bathe the night before and morning of your surgery. Follow the instructions your clinicgave you. (If no instructions, use regular soap.) ?? Don't shave or clip hair near your surgery site. This can lead to skin infection. ?? Don't smoke the morning of surgery. Smoking increases the risk of infection. You may chew nicotine gum up to 2 hours before surgery. A nicotine patch is okay. ? Note: Some surgeries require you to completely quit smoking and nicotine. Check with your surgeon. ?? Your care team will make every effort to keep you safe from infection. We will: ? Clean our hands often with soap and water (or an alcohol-based hand rub). ? Clean the skin at your surgery site with a special soap that kills germs. We'll also remove hair from the site as needed. ? Wear special hair covers, masks, gowns and gloves during surgery. ? Give antibiotic medicine, if prescribed. Not all surgeries need antibiotics. What to bring on the day of surgery ?? Photo ID and insurance card ?? Copy of your health care directive, if you have one ?? Glasses and hearing aides (bring cases) ? You can't wear contacts during surgery ?? Inhaler and eye drops, if you use them (tell us about these when you arrive) ?? CPAP machine or breathing device, if you use them ?? A few personal items, if spending the night ?? If you have . . . ? A pacemaker or ICD (cardiac defibrillator): Bring the ID card. ? An implanted stimulator: Bring the remote control. ? A legal guardian: Bring a copy of the certified (court-stamped) guardianship papers. Please remove any jewelry, including body piercings. Leave jewelry and other valuables at home. If you're going home the day of surgery Important: If you don't follow the rules below, we must cancel your surgery. ?? Arrange for someone to drive you home after surgery. You may not drive, take a taxi or take public transportation by yourself (unless you'll have local anesthesia only). ?? Arrange for a responsible adult to stay with you overnight. If you don't, we may keep you in the hospital overnight, and you may need to pay the costs yourself. Questions? If you have any questions for your care team, list them here: For informational purposes only. Not to replace the advice of your health care provider. Copyright ?? 2667-8713 [facility]. All rights reserved. Clinically reviewed by Zoie Daivs MD. [employer] [id number] - REV 04/15. Preparing for Your Surgery Getting started A surgery nurse will call you to review your health history and instructions. They will give you an arrival time based on your scheduled surgery time. Please be ready to share the following: ?? Your doctor's clinic name and phone number ?? Your medical, surgical and anesthesia history ?? A list of allergies and sensitivities ?? A list of medicines, including herbal treatments and vqlr-aaz-cniifef drugs ?? Whether the patient has a legal guardian (ask how to send us the papers in advance) If your child is having surgery, please ask for a copy of Preparing for Your Child's Surgery. Preparing for surgery ?? Within 30 days of surgery: Have an exam at your family clinic (primary care clinic), or go to a pre-operative clinic. This exam is called a History and Physical, or H&P. ?? At your H&P exam, talk to your care team about all medicines you take. If you need to stop any medicines before surgery, ask when to start taking them again. ? We do this for your safety. Many medicines can make you bleed too much during surgery. Some changehow well surgery (anesthesia) drugs work. ?? Call your insurance company to see what it will and won't pay for. Ask if they need to pre-approve the surgery. (If no insurance, call [phone].) ?? Call your surgeon's clinic if there's any change in your health. This includes signs of a cold orflu (sore throat, runny nose, cough, rash, fever). It also includes a scrape or scratch near the surgery site. ?? If you have questions on the day of surgery, call your surgery center. Eating and drinking guidelines For your safety: Unless your surgeon tells you otherwise, follow the guidelines below. ?? Eat and drink as usual until 8 hours before surgery. After that, no food or milk. ?? Drink clear liquids until 2 hours before surgery. These are liquids you can see through, like water, Gatorade and Propel Water. You may also have black coffee and tea (no cream or milk). ?? Nothing by mouth within 2 hours of surgery. This includes gum, candy and breath mints. ?? Stop alcohol the midnight before surgery. ?? If your family clinic tells you to take medicine on the morning of surgery, it's okay to take it with a sip of water. Preventing infection ?? Shower or bathe the night before and morning of your surgery. Follow the instructions your clinicgave you. (If no instructions, use regular soap.) ?? Don't shave or clip hair near your surgery site. This can lead to skin infection. ?? Don't smoke the morning of surgery. Smoking increases the risk of infection. You may chew nicotine gum up to 2 hours before surgery. A nicotine patch is okay. ? Note: Some surgeries require you to completely quit smoking and nicotine. Check with your surgeon. ?? Your care team will make every effort to keep you safe from infection. We will: ? Clean our hands often with soap and water (or an alcohol-based hand rub). ? Clean the skin at your surgery site with a special soap that kills germs. We'll also remove hair from the site as needed. ? Wear special hair covers, masks, gowns and gloves during surgery. ? Give antibiotic medicine, if prescribed. Not all surgeries need antibiotics. What to bring on the day of surgery ?? Photo ID and insurance card ?? Copy of your health care directive, if you have one ?? Glasses and hearing aides (bring cases) ? You can't wear contacts during surgery ?? Inhaler and eye drops, if you use them (tell us about these when you arrive) ?? CPAP machine or breathing device, if you use them ?? A few personal items, if spending the night ?? If you have . . . ? A pacemaker or ICD (cardiac defibrillator): Bring the ID card. ? An implanted stimulator: Bring the remote control. ? A legal guardian: Bring a copy of the certified (court-stamped) guardianship papers. Please remove any jewelry, including body piercings. Leave jewelry and other valuables at home. If you're going home the day of surgery Important: If you don't follow the rules below, we must cancel your surgery. ?? Arrange for someone to drive you home after surgery. You may not drive, take a taxi or take public transportation by yourself (unless you'll have local anesthesia only). ?? Arrange for a responsible adult to stay with you overnight. If you don't, we may keep you in the hospital overnight, and you may need to pay the costs yourself. Questions? If you have any questions for your care team, list them here: For informational purposes only. Not to replace the advice of your health care provider. Copyright ?? 3684-5403 [facility]. All rights reserved. Clinically reviewed by Zoie Davis MD. [employer] [id number] - REV 04/15. Preparing for Your Surgery Getting started A surgery nurse will call you to review your health history and instructions. They will give you an arrival time based on your scheduled surgery time. Please be ready to share the following: ?? Your doctor's clinic name and phone number ?? Your medical, surgical and anesthesia history ?? A list of allergies and sensitivities ?? A list of medicines, including herbal treatments and zlsi-afo-gatlwnx drugs ?? Whether the patient has a legal guardian (ask how to send us the papers in advance) If your child is having surgery, please ask for a copy of Preparing for Your Child's Surgery. Preparing for surgery ?? Within 30 days of surgery: Have an exam at your family clinic (primary care clinic), or go to a pre-operative clinic. This exam is called a History and Physical, or H&P. ?? At your H&P exam, talk to your care team about all medicines you take. If you need to stop any medicines before surgery, ask when to start taking them again. ? We do this for your safety. Many medicines can make you bleed too much during surgery. Some changehow well surgery (anesthesia) drugs work. ?? Call your insurance company to see what it will and won't pay for. Ask if they need to pre-approve the surgery. (If no insurance, call [phone].) ?? Call your surgeon's clinic if there's any change in your health. This includes signs of a cold orflu (sore throat, runny nose, cough, rash, fever). It also includes a scrape or scratch near the surgery site. ?? If you have questions on the day of surgery, call your surgery center. Eating and drinking guidelines For your safety: Unless your surgeon tells you otherwise, follow the guidelines below. ?? Eat and drink as usual until 8 hours before surgery. After that, no food or milk. ?? Drink clear liquids until 2 hours before surgery. These are liquids you can see through, like water, Gatorade and Propel Water. You may also have black coffee and tea (no cream or milk). ?? Nothing by mouth within 2 hours of surgery. This includes gum, candy and breath mints. ?? Stop alcohol the midnight before surgery. ?? If your family clinic tells you to take medicine on the morning of surgery, it's okay to take it with a sip of water. Preventing infection ?? Shower or bathe the night before and morning of your surgery. Follow the instructions your clinicgave you. (If no instructions, use regular soap.) ?? Don't shave or clip hair near your surgery site. This can lead to skin infection. ?? Don't smoke the morning of surgery. Smoking increases the risk of infection. You may chew nicotine gum up to 2 hours before surgery. A nicotine patch is okay. ? Note: Some surgeries require you to completely quit smoking and nicotine. Check with your surgeon. ?? Your care team will make every effort to keep you safe from infection. We will: ? Clean our hands often with soap and water (or an alcohol-based hand rub). ? Clean the skin at your surgery site with a special soap that kills germs. We'll also remove hair from the site as needed. ? Wear special hair covers, masks, gowns and gloves during surgery. ? Give antibiotic medicine, if prescribed. Not all surgeries need antibiotics. What to bring on the day of surgery ?? Photo ID and insurance card ?? Copy of your health care directive, if you have one ?? Glasses and hearing aides (bring cases) ? You can't wear contacts during surgery ?? Inhaler and eye drops, if you use them (tell us about these when you arrive) ?? CPAP machine or breathing device, if you use them ?? A few personal items, if spending the night ?? If you have . . . ? A pacemaker or ICD (cardiac defibrillator): Bring the ID card. ? An implanted stimulator: Bring the remote control. ? A legal guardian: Bring a copy of the certified (court-stamped) guardianship papers. Please remove any jewelry, including body piercings. Leave jewelry and other valuables at home. If you're going home the day of surgery Important: If you don't follow the rules below, we must cancel your surgery. ?? Arrange for someone to drive you home after surgery. You may not drive, take a taxi or take public transportation by yourself (unless you'll have local anesthesia only). ?? Arrange for a responsible adult to stay with you overnight. If you don't, we may keep you in the hospital overnight, and you may need to pay the costs yourself. Questions? If you have any questions for your care team, list them here: For informational purposes only. Not to replace the advice of your health care provider. Copyright ?? 2131-1542 [facility]. All rights reserved. Clinically reviewed by Zoie Davis MD. [employer] [id number] - REV 04/15. Preparing for Your Surgery Getting started A surgery nurse will call you to review your health history and instructions. They will give you an arrival time based on your scheduled surgery time. Please be ready to share the following: ?? Your doctor's clinic name and phone number ?? Your medical, surgical and anesthesia history ?? A list of allergies and sensitivities ?? A list of medicines, including herbal treatments and etvp-onr-mqsbztk drugs ?? Whether the patient has a legal guardian (ask how to send us the papers in advance) If your child is having surgery, please ask for a copy of Preparing for Your Child's Surgery. Preparing for surgery ?? Within 30 days of surgery: Have an exam at your family clinic (primary care clinic), or go to a pre-operative clinic. This exam is called a History and Physical, or H&P. ?? At your H&P exam, talk to your care team about all medicines you take. If you need to stop any medicines before surgery, ask when to start taking them again. ? We do this for your safety. Many medicines can make you bleed too much during surgery. Some changehow well surgery (anesthesia) drugs work. ?? Call your insurance company to see what it will and won't pay for. Ask if they need to pre-approve the surgery. (If no insurance, call [phone].) ?? Call your surgeon's clinic if there's any change in your health. This includes signs of a cold orflu (sore throat, runny nose, cough, rash, fever). It also includes a scrape or scratch near the surgery site. ?? If you have questions on the day of surgery, call your surgery center. Eating and drinking guidelines For your safety: Unless your surgeon tells you otherwise, follow the guidelines below. ?? Eat and drink as usual until 8 hours before surgery. After that, no food or milk. ?? Drink clear liquids until 2 hours before surgery. These are liquids you can see through, like water, Gatorade and Propel Water. You may also have black coffee and tea (no cream or milk). ?? Nothing by mouth within 2 hours of surgery. This includes gum, candy and breath mints. ?? Stop alcohol the midnight before surgery. ?? If your family clinic tells you to take medicine on the morning of surgery, it's okay to take it with a sip of water. Preventing infection ?? Shower or bathe the night before and morning of your surgery. Follow the instructions your clinicgave you. (If no instructions, use regular soap.) ?? Don't shave or clip hair near your surgery site. This can lead to skin infection. ?? Don't smoke the morning of surgery. Smoking increases the risk of infection. You may chew nicotine gum up to 2 hours before surgery. A nicotine patch is okay. ? Note: Some surgeries require you to completely quit smoking and nicotine. Check with your surgeon. ?? Your care team will make every effort to keep you safe from infection. We will: ? Clean our hands often with soap and water (or an alcohol-based hand rub). ? Clean the skin at your surgery site with a special soap that kills germs. We'll also remove hair from the site as needed. ? Wear special hair covers, masks, gowns and gloves during surgery. ? Give antibiotic medicine, if prescribed. Not all surgeries need antibiotics. What to bring on the day of surgery ?? Photo ID and insurance card ?? Copy of your health care directive, if you have one ?? Glasses and hearing aides (bring cases) ? You can't wear contacts during surgery ?? Inhaler and eye drops, if you use them (tell us about these when you arrive) ?? CPAP machine or breathing device, if you use them ?? A few personal items, if spending the night ?? If you have . . . ? A pacemaker or ICD (cardiac defibrillator): Bring the ID card. ? An implanted stimulator: Bring the remote control. ? A legal guardian: Bring a copy of the certified (court-stamped) guardianship papers. Please remove any jewelry, including body piercings. Leave jewelry and other valuables at home. If you're going home the day of surgery Important: If you don't follow the rules below, we must cancel your surgery. ?? Arrange for someone to drive you home after surgery. You may not drive, take a taxi or take public transportation by yourself (unless you'll have local anesthesia only). ?? Arrange for a responsible adult to stay with you overnight. If you don't, we may keep you in the hospital overnight, and you may need to pay the costs yourself. Questions? If you have any questions for your care team, list them here: For informational purposes only. Not to replace the advice of your health care provider. Copyright ?? 7846-5252 [facility]. All rights reserved. Clinically reviewed by Zoie Davis MD. [employer] [id number] - REV 04/15. documented in this encounter Progress Notes Albina Andujar PA-C - 06/12/2020 10:00 AM CDT [address] [id number] Dept: [phone] PRE-OP EVALUATION: Today's date: 06/12/2020 Dejuan Rodriguez (: 1960) presents for pre-operative evaluation assessment as requested byDr. Dax Menon. He requires evaluation and anesthesia risk assessment prior to undergoing surgery/procedure for treatment of CYSTOSCOPY CYSTOLITHOLAPAXY . Proposed Surgery/ Procedure: CYSTOSCOPY CYSTOLITHOLAPAXY Date of Surgery/ Procedure: 06/19/20 Time of Surgery/ Procedure: Hospital/Surgical Facility: [facility] Fax Number: Note does not need to be faxed, will be available electronically in [employer]. Primary Physician: Teresita Garcia Type of Anesthesia Anticipated: TBD Preoperative Questionnaire: No - Have you ever had a heart attack or stroke? No - Have you ever had surgery on your heart or blood vessels, such as a stent, coronary (heart) bypass, or surgery on an artery in the head, neck, heart, or legs? No - Do you have chest pain when you are physically active? No - Do you have a history of heart failure? Father has history of heart failure, patient does not No - Do you currently have a cold, bronchitis, or symptoms of other respiratory (head and chest) infections? No - Do you have a cough, shortness of breath, or wheezing? No - Do you or anyone in your family have a history of blood clots? No - Do you or anyone in your family have a serious bleeding problem, such as long-lasting bleeding after surgeries or cuts? No - Have you ever had anemia or been told to take iron pills? No - Have you had any abnormal blood loss such as black, tarry or bloody stools, or abnormal vaginalbleeding? Yes - Have you ever had a blood transfusion? No reactions in the past Yes - Are you willing to have a blood transfusion if it is medically needed before, during, or afteryour surgery? No - Have you or anyone in your family ever had problems with anesthesia (sedation for surgery)? No - Do you have sleep apnea, excessive snoring, or daytime drowsiness? No - Do you have any artifical heart valves or other implanted medical devices, such as a pacemaker,defibrillator, or continuous glucose monitor? Yes - Do you have any artifical joints? Total hip replacement bilateral No - Are you allergic to latex? No - Is there any chance that you may be ? Patient has a Health Care Directive or Living Will: NO HPI: HPI related to upcoming procedure: Bladder stone and neurogenic bladder See problem list for active medical problems. Problems all longstanding and stable, except as noted/documented. See ROS for pertinent symptoms related to these conditions. MEDICAL HISTORY: Patient Active Problem List Diagnosis Date Noted ??? Family history of ischemic heart disease 03/11/2019 Priority: Medium ??? Neurogenic bladder 03/11/2019 Priority: Medium ??? Neurogenic bowel 03/11/2019 Priority: Medium Overview: constipation ??? Venous stasis 11/24/2017 Priority: Medium ??? Osteoporosis 01/20/2017 Priority: Medium In the spine. ??? Major depressive disorder, single episode, mild (H) 10/17/2016 Priority: Medium ??? 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 Bladder spasm 05/16/2011 Priority: Medium ??? Pseudomeningocele, acquired 05/16/2011 Priority: Medium ??? Status post hip replacement 05/14/2011 Priority: Medium Bilateral (Problem list name updated by automated process. Provider to review and confirm.) ??? Qawz-Xptlu-Sioxzhc disease 05/14/2011 Priority: Medium ??? Atopic rhinitis 05/14/2011 Priority: Medium (Problem list name updated by automated process. Provider to review and confirm.) ??? 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 Spasticity 03/10/2011 Priority: Medium ??? Seborrheic dermatitis of scalp 03/10/2011 Priority: Medium ??? Cannabis abuse 12/13/2010 Priority: Medium Does not smoke daily ??? 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 Retention of urine 09/10/2010 Priority: Medium ??? CARDIOVASCULAR SCREENING; LDL GOAL LESS THAN 160 07/28/2010 Priority: Medium ??? Urinary tract infection, site not specified 02/27/2007 Priority: Medium ??? MS (multiple sclerosis) (H) 09/01/2005 Priority: Medium Past Medical History: Diagnosis Date ??? Juvenile osteochondrosis of hip and pelvis ??? Major depressive disorder, single episode, mild (H) 10/17/2016 ??? Multiple sclerosis (H) sees neurology at [facility] ??? Osteoporosis 01/20/2017 In the spine. ??? Other specified disorder of bladder neurogenic- Dr. Mojica ??? Venous stasis 11/24/2017 Past Surgical History: Procedure Laterality Date ??? C TOTAL HIP ARTHROPLASTY 1996, 2003 Hip Replacement, Total x2 due to Legg Perthes ??? COLONOSCOPY 06/01/2013 Procedure: COLONOSCOPY; Colonoscopy; Surgeon: Jaocb Simmons MD; Location: GI Current Outpatient Medications Medication Sig Dispense Refill ??? alendronate (FOSAMAX) 70 MG tablet TAKE 1 TABLET ONCE WEEKLY 60 MIN BEFORE MORNING MEAL WITH 8OZOF WATER, STAY UPRIGHT FOR 30 MINUTES 12 tablet 1 ??? baclofen (LIORESAL) 10 MG tablet Take 1 tablet by mouth every 6 hours as needed For acute withdrawal ??? Calcium Carb-Cholecalciferol (CALCIUM + D3) 600-800 MG-UNIT TABS Take 1 tablet by mouth 2 times daily ??? Docusate Sodium (COLACE PO) ??? gabapentin (NEURONTIN) 400 MG capsule Take 400 mg by mouth 3 times daily And pt takes 600 mg at night time. ??? gabapentin (NEURONTIN) 600 MG tablet Take 600 mg by mouth At Bedtime ??? ketoconazole (NIZORAL) 2 % external shampoo APPLY TOPICALLY DIRECTED ONCE WEEKLY 120 mL 10 ??? ocrelizumab (OCREVUS) 300 MG/10ML SOLN injection Inject into the vein once ??? polyethylene glycol (MIRALAX) powder Take 17 g by mouth daily as needed ??? pramipexole (MIRAPEX) 0.125 MG tablet Take by mouth 3 times daily. ??? tadalafil (CIALIS) 20 MG tablet Take 20 mg by mouth daily as needed OTC products: None, except as noted above Allergies Allergen Reactions ??? Dilaudid [Hydromorphone] Nausea and Vomiting ??? Pollen Extract Latex Allergy: NO Social History Tobacco Use ??? Smoking status: Never Smoker ??? Smokeless tobacco: Never Used Substance Use Topics ??? Alcohol use: Not Currently Alcohol/week: 0.0 standard drinks Frequency: Never Comment: socially History Drug Use ??? Types: Marijuana Comment: marijuana occasionally REVIEW OF SYSTEMS: CONSTITUTIONAL: NEGATIVE for fever, chills, change in weight INTEGUMENTARY/SKIN: NEGATIVE for worrisome rashes, moles or lesions EYES: NEGATIVE for vision changes or irritation ENT/MOUTH: NEGATIVE for ear, mouth and throat problems RESP: NEGATIVE for significant cough or SOB CV: Negative for chest pain or palpitations. Some peripheral edema- chronic per patient. GI: NEGATIVE for nausea, abdominal pain, heartburn, or change in bowel habits male : Patient has catheter MUSCULOSKELETAL: NEGATIVE for significant arthralgias or myalgia NEURO: NEGATIVE for weakness, dizziness or paresthesias ENDOCRINE: NEGATIVE for temperature intolerance, skin/hair changes HEME: NEGATIVE for bleeding problems PSYCHIATRIC: NEGATIVE for changes in mood or affect EXAM: BP 106/72 (BP Location: Right arm, Patient Position: Sitting, Cuff Size: Adult Regular) Pulse 84 Temp 98.1 ??F (36.7 ??C) (Oral) SpO2 96% GENERAL APPEARANCE: healthy, alert and no distress EYES: EOMI, PERRL HENT: ear canals and TM's normal and nose and mouth without ulcers or lesions NECK: no adenopathy, no asymmetry, masses, or scars and thyroid normal to palpation RESP: lungs clear to auscultation - no rales, rhonchi or wheezes CV: regular rates and rhythm, normal S1 S2, no S3 or S4 and no murmur, click or rub ABDOMEN: soft, nontender, no HSM or masses and bowel sounds normal MS: no gross deformities noted, patient mostly wheelchair bound due to MS SKIN: no suspicious lesions or rashes NEURO: Mentation intact and speech normal PSYCH: mentation appears normal. and affect normal/bright LYMPHATICS: No cervical adenopathy DIAGNOSTICS: No labs or EKG required. Recent labs as noted below. Recent Labs Lab Test 11/25/19 11/25/18 1543 11/24/17 1145 04/19/13 1152 HGB -- -- 14.6 15.0 PLT -- -- 168 175 NA -- -- 139 144 POTASSIUM 4.0 -- 3.7 4.1 CR 0.95 0.99 0.96 1.09 IMPRESSION: Reason for surgery/procedure: Bladder stone, Neurogenic bladder Diagnosis/reason for consult: Bladder stone, Neurogenic bladder The proposed surgical procedure is considered INTERMEDIATE risk. REVISED CARDIAC RISK INDEX The patient has the following serious cardiovascular risks for perioperative complications such as (OK, PE, VFib and 3?? AV Block): No serious cardiac risks INTERPRETATION: 0 risks: Class I (very low risk - 0.4% complication rate) The patient has the following additional risks for perioperative complications: No identified additional risks ICD-10-CM 1. Preop general physical exam Z01.818 2. Bladder stone N21.0 RECOMMENDATIONS: --Patient is to take all scheduled medications on the day of surgery APPROVAL GIVEN to proceed with proposed procedure, without further diagnostic evaluation Signed Electronically by: Albina Andujar PA-C Copy of this evaluation report is provided to requesting physician. [facility] Preop Guidelines Revised Cardiac Risk Index Chasity Ferrari MA - 06/12/2020 10:00 AM CDT Faxed to [phone] Chasity Ferrari RMA documented in this encounter Plan of Treatment Upcoming Encounters Date Type Specialty Care Team Description 08/18/2022 Virtual Visit [place] [address] [place] [address] (Wo rk) documented as of this encounter Visit Diagnoses Diagnosis Preop general physical exam - Primary Other specified pre-operative examinatio n Bladder stone Other calculus in bladder Need for prophylactic vaccination and in oculation against influenza documented in this encounter Additional Health Concerns Assessment Noted Time PHQ-9 Depression Total Score: 8 12/02/2019 2:02 PM DIGITAL SALES ASSISTANT documented as of this encounter Care Teams Counter Professional Relationship Specialty Start Date End Date Teresita Garcia MD PCP - General Family Practice 01/22/11 [address] [place] [address] Teresita Garcia MD Assigned PCP 11/16/16 12/28/21 [address] [place] [address] documented as of this encounter
--- OUTSIDE RECORDS SUMMARY | 2022-08-16 14:27 | XMS_ITS | Encounter Summary ---
:1960 Author Organization [place] Address [address] [place] [address] Care Team Providers Name Role Phone Teresita Garcia MD Primary Care Provider Teresita Garcia MD Unavailable Reason for Visit Reason Onset Date Comments Orders 03/23/2020 Physicians Orders Encounter Details Date Type Department Care Team Description 03/23/[address] [facility] Teresita Garcia MD Orders ([facility] [place] [id number] [place] [address] Orders) [id number] [place] [address] [id number] Social History Tobacco Use Types Packs/Day [...] do you attend hindu or Not asked mosque services? Do you belong to any clubs [...] Notes Telephone Encounter - Malena Hankins - 03/27/2020 8:55 AM CDT Signed form faxed. Malena Hankins Manager Appointment Telephone Encounter - Bella Harden - 03/23/2020 9:05 AM CDT Received 3 page fax from [facility] for orders for Dr. Garcia to complete. Placed in AA's folder at [place]. When completed, please fax to [phone]. Bella Harden Manager Appointment documented in this encounter Plan of Treatment Upcoming Encounters Date Type Specialty Care Team Description 08/18/2022 Virtual Visit [place] [address] [place] [address] (Wo rk) documented as of this encounter Visit Diagnoses Not on filedocumented in this encounter Additional Health Concerns Assessment Noted Time PHQ-9 Depression Total Score: 8 12/02/2019 2:02 PM SUPPLIER QUALITY ENGINEERING MANAGER documented as of this encounter Care Teams Core Driller Helper Relationship Specialty Start Date End Date Teresita Garcia MD PCP - General Family Practice 01/22/11 [address] [place] [address] Teresita Garcia MD Assigned PCP 11/16/16 12/28/21 [address] [place] [address] documented as of this encounter
--- OUTSIDE RECORDS SUMMARY | 2022-08-16 14:27 | XMS_ITS | Encounter Summary ---
:1960 Author Organization [place] Address Counts include 234 beds at the [facility] [place] [address] Care Team Providers Name Role Phone Teresita Garcia MD Primary Care Provider Teresita Garcia MD Unavailable Reason for Visit Reason Onset Date Comments Forms 05/18/2020 Orders Encounter Details Date Type Department Care Team Description 05/18/2020 Telephone [facility] Roel Garcia MD Forms (Orders) [id number] [place] [address] [place] [address] [phone] Social History Tobacco Use Types Packs/Day Years [...] do you attend orthodox or Not asked lutheran services? Do you belong to any clubs [...] this encounter Miscellaneous Notes Telephone Encounter - Brooklyn Ogden - 05/18/2020 9:58 AM CDT Reason for Call: Form, our goal is to have forms completed with 72 hours, however, some forms may require a visit or additional information. Type of letter, form or note: Orders Who is the form from?: Home care Where did the form come from: form was faxed in What clinic location was the form placed at?: [facility] Where the form was placed: Dr Garcia Box/Folder What number is listed as a contact on the form?: [phone] Additional comments: please sign and date and fax to [phone] Call taken on 05/18/2020 at 9:59 AM by Brooklyn Ogden documented in this encounter Plan of Treatment Upcoming Encounters Date Type Specialty Care Team Description 08/18/2022 Virtual Visit [place] [address] [place], [place] [phone] (Wo rk) documented as of this encounter Visit Diagnoses Not on filedocumented in this encounter Additional Health Concerns Assessment Noted Time PHQ-9 Depression Total Score: 8 12/02/2019 2:02 PM MILIEU MANAGER documented as of this encounter Care Teams Counting Machine Operator Relationship Specialty Start Date End Date Teresita Garcia MD PCP - General Family Practice 01/22/11 [address] [place] [address] Teresita Garcia MD Assigned PCP 11/16/16 12/28/21 [address] [place], [place] [phone] documented as of this encounter
--- OUTSIDE RECORDS SUMMARY | 2022-08-16 14:27 | XMS_ITS | Encounter Summary ---
:1960 Author Organization [place] Address [facility] [place] [address] Care Team Providers Name Role Phone Teresita Garcia MD Primary Care Provider Teresita Garcia MD Unavailable Reason for Visit Reason Onset Date Comments Forms 05/25/2020 orders Encounter Details Date Type Department Care Team Description 05/25/2020 Telephone [facility] Roel Garcia MD Forms (orders) [id number] [place] [address] [place] [address] [phone] Social History Tobacco Use Types Packs/Day Years [...] do you attend gnosticism or Not asked baptism services? Do you belong to any clubs [...] Notes Telephone Encounter - Brooklyn Ogden - 05/25/2020 1:26 PM CDT Faxed Brooklyn Ogden/ Histotechnician Telephone Encounter - Brooklyn Ogden - 05/25/2020 9:11 AM CDT Reason for Call: Form, our goal is to have forms completed with 72 hours, however, some forms may require a visit or additional information. Type of letter, form or note: orders Who is the form from?: Home care Where did the form come from: form was faxed in What clinic location was the form placed at?: [facility] Where the form was placed: Dr Garcia Box/Folder What number is listed as a contact on the form?: [phone] Additional comments: please sign / date and fax to [phone] Call taken on 05/25/2020 at 9:12 AM by Brooklyn Ogden documented in this encounter Plan of Treatment Upcoming Encounters Date Type Specialty Care Team Description 08/18/2022 Virtual Visit [place] [address] [place], [place] [phone] (Wo rk) documented as of this encounter Visit Diagnoses Not on filedocumented in this encounter Additional Health Concerns Assessment Noted Time PHQ-9 Depression Total Score: 8 12/02/2019 2:02 PM HOSE BUILDER documented as of this encounter Care Teams Water Quality Analyst Relationship Specialty Start Date End Date Teresita Garcia MD PCP - General Family Practice 01/22/11 [address] [place], [place] [phone] Teresita Garcia MD Assigned PCP 11/16/16 12/28/21 [address] [place], [place] [phone] documented as of this encounter
--- OUTSIDE RECORDS SUMMARY | 2022-08-16 14:27 | XMS_ITS | Encounter Summary ---
:1960 Author Organization [place] Address [facility] [place] [address] Care Team Providers Name Role Phone Teresita Garcia MD Primary Care Provider Teresita Garcia MD Unavailable Encounter Details Date Type Department Care Team Description 05/25/2020 Medical Correspondence [facility] Scan, PLAN OF CARE Health Info Mgmt Non-Provider 03/20/20 - [facility] [address] [place] [address]/[place] [address] Social History Tobacco Use Types [...] do you attend mandaeism or Not asked sikh services? Do you [...] Virtual Visit [place] [address] [place], [place] [phone] (Wo rk) documented as of this encounter Visit Diagnoses Not on filedocumented in this encounter Additional Health Concerns Assessment Noted Time PHQ-9 Depression Total Score: 8 12/02/2019 2:02 PM AGRICULTURAL EXTENSION SPECIALIST documented as of this encounter Care Teams Business Objects Architect Relationship Specialty Start Date End Date Teresita Garcia MD PCP - General Family Practice 01/22/11 [address] [place] [address] Teresita Garcia MD Assigned PCP 11/16/16 12/28/21 [address] [place], [place] [phone] documented as of this encounter
--- OUTSIDE RECORDS SUMMARY | 2022-08-16 14:27 | XMS_ITS | Encounter Summary ---
:1960 Author Organization [place] Address [address] [facility] [place] [address] Care Team Providers Name Role Phone Teresita Garcia MD Primary Care Provider Teresita Garcia MD Unavailable Encounter Details Date Type Department Care Team Description 03/20/2020 Medical Correspondence [facility] Scan, PLAN OF CARE ReClaims [facility] Non-Provider HOME HEALTH /HOSPICE Srvcs [address] [place] [address] Social History Tobacco Use Types [...] do you attend denominational or Not asked gnosticism services? Do you belong to any clubs [...] Virtual Visit [place] [address] [place], [place] [phone] (Wo rk) documented as of this encounter Visit Diagnoses Not on filedocumented in this encounter Additional Health Concerns Assessment Noted Time PHQ-9 Depression Total Score: 8 12/02/2019 2:02 PM MIXING AND DISPENSING SUPERVISOR documented as of this encounter Care Teams Critical Care Physician Relationship Specialty Start Date End Date Teresita Garcia MD PCP - General Family Practice 01/22/11 [address] [place], [place] [phone] Teresita Garcia MD Assigned PCP 11/16/16 12/28/21 [address] [place] [address] documented as of this encounter
--- OUTSIDE RECORDS SUMMARY | 2022-08-16 14:27 | XMS_ITS | Encounter Summary ---
:1960 Author Organization [place] Address [address] [facility] [place] [address] Care Team Providers Name Role Phone Teresita Garcia MD Primary Care Provider Teresita Garcia MD Unavailable Reason for Visit Diagnostic Imaging Dexa (Routine) - Closed Specialty Diagnoses / Procedures Referred By Contact Refer red To Contact Diagnoses Osteoporosis without current pathological fracture, unspecified osteoporosis type Teresita Garcia MD Procedures DX Hip/Pelvis/Spine [address] [place], [place] [address] Referral ID Status Reason Start Date Expiration Date Visits Requ ested Visits Authorized [id number] Closed 12/03/2019 12/02/2020 1 1 Encounter Details Date Type Department Care Team Description 04/04/2020 Ancillary Procedure [facility] Teresita Garcia MD Osteoporosis without Clinic [place] [id number] [place] [address] current pathological [address] [facility] AV fracture, unspecified [place], osteoporosis [place] [address] [place] [address] [place], [place] [phone] [address] (Work) Social History Tobacco Use Types Packs/Day Years [...] do you attend christianity or Not asked latter-day services? Do you belong to any clubs [...] Virtual Visit [place] [address] [place], [place] [phone] (Wo rk) documented as of this encounter Procedures Procedure Name Priority Date/Time Associated Diagnosis Comme nts DX HIP/PELVIS/SPINE Routine 04/04/2020 1:36 PM Osteoporosis wi thout Results for this CDT current pathological procedu re are in fracture, unspecified the re sults osteoporosis type section. documented in this encounter Results DX Hip/Pelvis/Spine (04/04/2020 1:36 PM CDT) Anatomical Region Laterality Modality Dexa Bone Mineral Density Specimen (Source) Anatomical Location Collection Method / Collectio n Time Received Time / Laterality Volume Narrative 04/06/2020 1:21 PM CDT BONE DENSITOMETRY [address] [address] 04/04/2020 ?? PATIENT: Dejuan Rodriguez CHART: [id number] : ??1960 AGE: ??59 year old SEX: ??male REFERRING PROVIDER: Teresita Garcia MD ?? PROCEDURE: ??Bone density scanning was p erformed using DXA technology of the lumbar spine and hip. ??Scanning was performed on a [employer] scanner. ??Reporting is completed in the form of a T-score. ??The T-score represents the standard deviation from p eak bone mass based on a young healthy adult. ?? REFERENCE T-SCORES: ?Normal ?-1.0 and greater ?Osteopenia ? Between -1. 0 and -2.5 ?Osteoporosis ? -2.5 and less ? RISK FACTORS: ??Post-menopausal, Parent history of osteoporosis with a hip fracture, [facility] corticosteroid thera py CURRENT TREATMENT: ??Calcium, Fosamax (a lendronate) ?? FINDINGS: ? Lumbar Spine (L1-L4) ?T-score: ??-2.2 ? Forearm (radius 33%) ?T-score: ??-0.7 The right and left femurs are not accept able for evaluation due to previous arthroplasties. ?Lumbar (L1-L4) BMD: 0.960 ? Forearm (radius 33%) BMD: 0.918 IMPRESSION Osteopenia. Patient had a study performed previously , however the scans are not available to compare to the current stud y. Recommendations include ensuring adequat e Calcium and Vitamin D. Follow up can be considered in 2-3 years . Karen Mercer M.D. Electronically signed Teresita Garcia MD [employer] DEXA ORDERABLES documented in this encounter Visit Diagnoses Diagnosis Osteoporosis without current pathologica l fracture, unspecified osteoporosis type documented in this encounter Additional Health Concerns Assessment Noted Time PHQ-9 Depression Total Score: 8 12/02/2019 2:02 PM JUNIOR ACCOUNT EXECUTIVE documented as of this encounter Care Teams Mechanism Assembler Relationship Specialty Start Date End Date Teresita Garcia MD PCP - General Family Practice 01/22/11 [address] [place], [place] [phone] Teresita Garcia MD Assigned PCP 11/16/16 12/28/21 [address] [place] [address] documented as of this encounter
--- OUTSIDE RECORDS SUMMARY | 2022-08-16 14:27 | XMS_ITS | Encounter Summary ---
:1960 Author Organization [place] Address [address] [place] [address] Care Team Providers Name Role Phone Teresita Garcia MD Primary Care Provider Teresita Garcia MD Unavailable Encounter Details Date Type Department Care Team Description 03/15/2020 Medical Correspondence [facility] [place] Scan, [facility] Health Info Mgmt Non-Provider COMMUNICATI ON NOTE Srvcs [facility] [address] [facility]/[place] [address] Social History Tobacco Use Types [...] do you attend hinduism or Not asked cheondoism services? Do you belong to any clubs [...] Virtual Visit [place] [address] [place], [place] [phone] (Wo rk) documented as of this encounter Visit Diagnoses Not on filedocumented in this encounter Additional Health Concerns Assessment Noted Time PHQ-9 Depression Total Score: 8 12/02/2019 2:02 PM WEAVER TIRE CORD documented as of this encounter Care Teams Vault Teller Relationship Specialty Start Date End Date Teresita Garcia MD PCP - General Family Practice 01/22/11 [address] [place] [address] Teersita Garcia MD Assigned PCP 11/16/16 12/28/21 [address] [place], [place] [phone] documented as of this encounter
--- OUTSIDE RECORDS SUMMARY | 2022-08-16 14:27 | XMS_ITS | Encounter Summary ---
:1960 Author Organization [place] Address [address] [facility] [place] [address] Care Team Providers Name Role Phone Teresita Garcia MD Primary Care Provider Teresita Garcia MD Unavailable Encounter Details Date Type Department Care Team Description 06/11/2020 Travel Social History Tobacco Use Types Packs/Day [...] do you attend taoist or Not asked latter-day services? Do you [...] been in contact with No / Unsure 06/11/2020 9:01 AM CDT someone who was confirmed or suspected to have Coronavirus / COVID-19? documented as of this encounter Plan of Treatment Upcoming Encounters Date Type Specialty Care Team Description 08/18/2022 Virtual Visit [place] [address] [place], [place] [phone] (Wo rk) documented as of this encounter Visit Diagnoses Not on filedocumented in this encounter Additional Health Concerns Assessment Noted Time PHQ-9 Depression Total Score: 8 12/02/2019 2:02 PM DOWEL MAKER documented as of this encounter Care Teams Children'S Service Supervisor Relationship Specialty Start Date End Date Teresita Garcia MD PCP - General Family Practice 01/22/11 [address] [place] [address] Teresita Garcia MD Assigned PCP 11/16/16 12/28/21 [address] [place], [place] [phone] documented as of this encounter
--- OUTSIDE RECORDS SUMMARY | 2022-08-16 14:27 | XMS_ITS | Encounter Summary ---
:1960 Author Organization [place] Address [address] [facility] [place] [address] Care Team Providers Name Role Phone Teresita Garcia MD Primary Care Provider Teresita Garcia MD Unavailable Encounter Details Date Type Department Care Team Description 05/23/[address] [facility] Scan, PLAN OF CARE [facility] Non-Provider HOME HEALTH /HOSPICE Srvcs [address] [place] [address] Social History Tobacco Use Types [...] do you attend anglican or Not asked quaker services? Do you [...] Virtual Visit [place] [address] [place] [address] (Wo rk) documented as of this encounter Visit Diagnoses Not on filedocumented in this encounter Additional Health Concerns Assessment Noted Time PHQ-9 Depression Total Score: 8 12/02/2019 2:02 PM CUSTOMER SERVICE REP documented as of this encounter Care Teams Bilingual Speech Therapist Relationship Specialty Start Date End Date Teresita Garcia MD PCP - General Family Practice 01/22/11 [address] [place] [address] Teresita Garcia MD Assigned PCP 11/16/16 12/28/21 [address] [place], [place] [phone] documented as of this encounter
--- OUTSIDE RECORDS SUMMARY | 2022-08-16 14:27 | XMS_ITS | Encounter Summary ---
:1960 Author Organization [place] Address [address] [facility] [place] [address] Care Team Providers Name Role Phone Teresita Garcia MD Primary Care Provider Teresita Garcia MD Unavailable Dolores Caputo BLOCK BOLTER MULE OPERATOR Unavailable Letha Vasquez MA Unavailable Encounter Details Date Type Department Care Team Description 05/28/2020 Ambulatory - [facility] Dax Menon Encounte r [facility] OR screening for other [address] [place] [address] viral diseases [place], [place] [facility]OLOG[facility] [phone] [place] [address] [address] Social History Tobacco Use Types Packs/Day [...] do you attend christianity or Not asked sikhism services? Do you belong to any clubs [...] for the very basics like Not cami larson hard 07/05/2020 food, housing, medical care, and [...] documented as of this encounter Miscellaneous Notes Addendum Note - Camila Sorto RN - 05/28/2020 9:43 AM CDT Addendum Note by Camila Sorto RN at 05/28/2020 9:43 AM Author: Camila Sorto RN Service: -- Author Type: Registered Nurse Filed: 05/28/2020 1:31 PM Encounter Date: 05/28/2020 Status: Signed Epic Application Coordinator: Camila Sorto RN (Registered Nurse) Addended by: CAMILA SORTO on: 05/28/2020 01:31 PM Modules accepted: Orders documented in this encounter Plan of Treatment Upcoming Encounters Date Type Specialty Care Team Description 08/18/2022 Virtual Visit [place] [address] [place] [address] (Wo rk) documented as of this encounter Visit Diagnoses Diagnosis Encounter for screening for other viral diseases documented in this encounter Additional Health Concerns Assessment Noted Time PHQ-9 Depression Total Score: 8 12/02/2019 2:02 PM FOREIGN DIPLOMAT documented as of this encounter Care Teams Machine Set Up Relationship Specialty Start Date End Date Teresita Garcia MD PCP - General Family Practice 01/22/11 [address] [place] [address] Teresita Garcia MD Assigned PCP 11/16/16 12/28/21 [address] [place] [address] Dolores Caputo, BLOCK BOLTER MULE OPERATOR Lead Global President Primary Care - CC 06/27/20 09/03/20 Letha Vasquez, Community Health Worker 07/05/20 09/03/20 [place] documented as of this encounter
--- OUTSIDE RECORDS SUMMARY | 2022-08-16 14:27 | XMS_ITS | Encounter Summary ---
:1960 Author Organization [place] Address [address] [facility] [place] [address] Care Team Providers Name Role Phone Teresita Garcia MD Primary Care Provider Teresita Garcia MD Unavailable Encounter Details Date Type Department Care Team Description 04/04/2020 Travel Social History Tobacco Use Types Packs/Day [...] do you attend rastafarian or Not asked faith services? Do you [...] Virtual Visit [place] [address] [place], [place] [phone] (Wo rk) documented as of this encounter Visit Diagnoses Not on filedocumented in this encounter Additional Health Concerns Assessment Noted Time PHQ-9 Depression Total Score: 8 12/02/2019 2:02 PM WELT STITCH CLEANER documented as of this encounter Care Teams Instrumentation Instructor Relationship Specialty Start Date End Date Teresita Garcia MD PCP - General Family Practice 01/22/11 [address] [place] [address] Teresita Garcia MD Assigned PCP 11/16/16 12/28/21 [address] [place], [place] [phone] documented as of this encounter
--- OUTSIDE RECORDS SUMMARY | 2022-08-16 14:27 | XMS_ITS | Encounter Summary ---
:1960 Author Organization [place] Address [address] [facility] [place] [address] Care Team Providers Name Role Phone Teresita Garcia MD Primary Care Provider Teresita Garcia MD Unavailable Reason for Visit Diagnostic Imaging Dexa (Routine) - Closed Specialty Diagnoses / Procedures Referred By Contact Refer red To Contact Diagnoses oysterman current use of systemic steroids Teresita Garcia MD Procedures DX Wrist Heel Radius [address] [place], [place] [address] Referral ID Status Reason Start Date Expiration Date Visits Requ ested Visits Authorized [id number] Closed 04/04/2020 04/04/2021 1 1 Encounter Details Date Type Department Care Team Description 04/04/2020 Ancillary Procedure [facility] Anoop g term current use [facility] [place] of systemic steroids [address] [place] [address] [address] [place] [address] Social History Tobacco Use Types Packs/Day Years [...] do you attend temple or Not asked gnosticism services? Do you [...] Virtual Visit [place] [address] [place] [address] (Wo rk) documented as of this encounter Procedures Procedure Name Priority Date/Time Associated Diagnosis Comme nts DX Routine 04/04/2020 1:43 PM oysterman current Resu lts for this WRIST/HEEL/RADIUS CDT use of systemic procedu re are in steroids the results section. documented in this encounter Results DX Wrist Heel Radius (04/04/2020 1:43 PM CDT) Anatomical Region Laterality Modality Dexa Bone Mineral Density Specimen (Source) Anatomical Location Collection Method / Collectio n Time Received Time / Laterality Volume Narrative 04/06/2020 1:21 PM CDT BONE DENSITOMETRY [address] [address] 04/04/2020 ?? PATIENT: Dejuan Rodriguez CHART: [id number] : ??1960 AGE: ??59 year old SEX: ??male REFERRING PROVIDER: Teresita Garcia MD ?? PROCEDURE: ??Bone density scanning was p erformed using DXA technology of the lumbar spine and hip. ??Scanning was performed on a [facility] scanner. ??Reporting is completed in the form of a T-score. ??The T-score represents the standard deviation from p eak bone mass based on a young healthy adult. ?? REFERENCE T-SCORES: ?Normal ?-1.0 and greater ?Osteopenia ? Between -1. 0 and -2.5 ?Osteoporosis ? -2.5 and less ? RISK FACTORS: ??Post-menopausal, Parent history of osteoporosis with a hip fracture, skilled nursing corticosteroid thera py CURRENT TREATMENT: ??Calcium, Fosamax [...] Mercer M.D. Electronically signed Teresita Garcia MD IMG DEXA ORDERABLES documented in this encounter Visit Diagnoses Diagnosis oysterman current use of systemic steroi ds Encounter for long-term (current) use of steroids documented in this encounter Additional Health Concerns Assessment Noted Time PHQ-9 Depression Total Score: 8 12/02/2019 2:02 PM GLOBAL REGULATORY LEAD documented as of this encounter Care Teams Jail Officer Relationship Specialty Start Date End Date Teresita Garcia MD PCP - General Family Practice 01/22/11 [address] [place] [address] Teresita Garcia MD Assigned PCP 11/16/16 12/28/21 [address] [place] [address] documented as of this encounter
--- OUTSIDE RECORDS SUMMARY | 2022-08-16 14:27 | XMS_ITS | Encounter Summary ---
:1960 Author Organization [place] Address [facility] [place] [address] Care Team Providers Name Role Phone Teresita Garcia MD Primary Care Provider Teresita Garcia MD Unavailable Reason for Visit Reason Onset Date Comments Forms 06/07/2020 Orders Encounter Details Date Type Department Care Team Description 06/07/2020 Telephone [facility] Roel Garcia MD Forms (Orders ) [id number] [place] [address] [phone] (Wo rk) Social History Tobacco Use Types [...] do you attend scientology or Not asked jew services? Do you belong to any clubs [...] Notes Telephone Encounter - Rosy Brito - 06/13/2020 2:21 PM CDT Form completed and faxed, 06/13/2020 Jackie Brito/AWILDA Telephone Encounter - Brooklyn Ogden - 06/07/2020 4:00 PM CDT Reason for Call: Form, our goal is to have forms completed with 72 hours, however, some forms may require a visit or additional information. Type of letter, form or note: orders Who is the form from?: [facility] (if other please explain) Where did the form come from: form was faxed in What clinic location was the form placed at?: [facility] Where the form was placed: Dr Garcia Box/Folder What number is listed as a contact on the form?: [phone] Additional comments: please /sign date and fax to [phone] Call taken on 06/07/2020 at 4:00 PM by Brooklyn Ogden documented in this encounter Plan of Treatment Upcoming Encounters Date Type Specialty Care Team Description 08/18/2022 Virtual Visit [place] [address] [place], [place] [phone] (Wo rk) documented as of this encounter Visit Diagnoses Not on filedocumented in this encounter Additional Health Concerns Assessment Noted Time PHQ-9 Depression Total Score: 8 12/02/2019 2:02 PM PRESS CLIPPINGS CUTTER AND PASTER documented as of this encounter Care Teams Department Mgr Relationship Specialty Start Date End Date Teresita Garcia MD PCP - General Family Practice 01/22/11 [address] [place], [place] [id number] Teresita Garcia MD Assigned PCP 11/16/16 12/28/21 [address] [facility] [place] [address] documented as of this encounter
--- OUTSIDE RECORDS SUMMARY | 2022-08-16 14:28 | XMS_ITS | Encounter Summary ---
:1960 Author Organization [place] Address [address] [facility] [address] Care Team Providers Name Role Phone Teresita Garcia MD Primary Care Provider Teresita Garcia MD Unavailable Reason for Visit Reason Onset Date Comments Erroneous encounter-disregard 01/24/2020 Encounter Details Date Type Department Care Team Description 01/24/2020 Telephone [facility] Teresita Garcia MD Erroneous [facility] [place] [id number] [place] [address] encounter-disregard [address] [place], [place] [phone] Social History Tobacco Use Types Packs/Day [...] do you attend yarsanism or Not asked mu-ism services? Do you belong to any clubs [...] been in contact with No / Unsure 01/03/2020 2:56 PM CDT someone who was confirmed or suspected to have Coronavirus / COVID-19? documented as of this encounter Plan of Treatment Upcoming Encounters Date Type Specialty Care Team Description 08/18/2022 Virtual Visit [facility] [place] [address] [place], [place] [phone] (Wo rk) documented as of this encounter Visit Diagnoses Not on filedocumented in this encounter Additional Health Concerns Assessment Noted Time PHQ-9 Depression Total Score: 8 12/02/2019 2:02 PM PORTER BAGGAGE documented as of this encounter Care Teams Furniture Finisher Relationship Specialty Start Date End Date Teresita Garcia MD PCP - General Family Practice 01/22/11 [address] [place] [address] Teresita Garcia MD Assigned PCP 11/16/16 12/28/21 [address] [place] [address] documented as of this encounter
--- OUTSIDE RECORDS SUMMARY | 2022-08-16 14:28 | XMS_ITS | Encounter Summary ---
:1960 Author Organization [place] Address [address] [facility] [place] [address] Care Team Providers Name Role Phone Teresita Garcia MD Primary Care Provider Teresita Garcia MD Unavailable Reason for Visit Reason Onset Date Comments Orders 03/05/2020 [facility] Encounter Details Date Type Department Care Team Description 03/05/2020 Documentation Only [facility] Sedrick Giron O rders ([facility]) [address] [place] [address], [phone] [place] [address] Social History Tobacco Use Types Packs/Day [...] or relatives? How often do you attend orthodoxy or Not asked scientologist services? Do you belong to any clubs or Not asked organizations such as orthodoxy groups, unions, fraternal or athletic groups, or [...] documented as of this encounter Progress Notes Sedrick Giron MD - 03/05/2020 12:59 PM CDT Forms completed Sedrick Giron MD Malena Hankins - 03/05/2020 12:59 PM CDT Signed forms faxed. .Malena Hankins Rubber Tubing Backer documented in this encounter Plan of Treatment Upcoming Encounters Date Type Specialty Care Team Description 08/18/2022 Virtual Visit [place] [address] [place], [place] [phone] (Wo rk) documented as of this encounter Visit Diagnoses Not on filedocumented in this encounter Additional Health Concerns Assessment Noted Time PHQ-9 Depression Total Score: 8 12/02/2019 2:02 PM CLINIC LICENSED PRACTICAL NURSE documented as of this encounter Care Teams Meeting Manager Relationship Specialty Start Date End Date Teresita Garcia MD PCP - General Family Practice 01/22/11 [address] [place] [address] Teresita Garcia MD Assigned PCP 11/16/16 12/28/21 [address] [place] [address] documented as of this encounter
--- OUTSIDE RECORDS SUMMARY | 2022-08-16 14:28 | XMS_ITS | Encounter Summary ---
:1960 Author Organization [place] Address [address] [place] [address] Care Team Providers Name Role Phone Teresita Garcia MD Primary Care Provider Teresita Garcia MD Unavailable Reason for Visit Reason Onset Date Comments Orders 12/19/2019 [facility] Encounter Details Date Type Department Care Team Description 12/19/2019 Telephone [facility] Teresita Garcia MD Orders ([facility] [address]) [address] [place] [phone] Social History Tobacco Use Types Packs/Day [...] do you attend mu-ism or Not asked tenriism services? Do you belong to any clubs [...] Notes Telephone Encounter - Nhi Malena - 12/20/2019 8:54 AM CDT Signed forms faxed. Malena Hankins Merchandiser Seasonal Telephone Encounter - Malena Hankins - 12/19/2019 3:12 PM CDT [facility]d [address] [facility] BEDS AT THE [facility]. Please fax Plan of Care orders to [phone]. Form in AA folder at [facility] Malena Hankins Merchandiser Seasonal documented in this encounter Plan of Treatment Upcoming Encounters Date Type Specialty Care Team Description 08/18/2022 Virtual [place] [address] [place], [place] [phone] (Wo rk) documented as of this encounter Visit Diagnoses Not on filedocumented in this encounter Additional Health Concerns Assessment Noted Time PHQ-9 Depression Total Score: 8 12/02/2019 2:02 PM ANIMATOR documented as of this encounter Care Teams Piano And Organ Refinisher Relationship Specialty Start Date End Date Teresita Garcia MD PCP - General Family Practice 01/22/11 [address] [place] [address] Teresita Garcia MD Assigned PCP 11/16/16 12/28/21 [address] [place] [address] documented as of this encounter
--- OUTSIDE RECORDS SUMMARY | 2022-08-16 14:28 | XMS_ITS | Encounter Summary ---
:1960 Author Organization [place] Address [address] [facility] [place] [address] Care Team Providers Name Role Phone Teresita Garcia MD Primary Care Provider Teresita Garcia MD Unavailable Encounter Details Date Type Department Care Team Description 12/05/2019 Medical Correspondence [facility] [place] Scan, HOME VISIT ORDER Health Info Mgmt Non-Provider [facility] [address] [place] [address] Social History Tobacco Use Types [...] or relatives? How often do you attend synagogue or Not asked baptism services? Do you belong to any clubs or Not asked organizations such as synagogue groups, unions, fraternal or athletic groups, or [...] Virtual [place] [address] [place] [address] (Wo rk) documented as of this encounter Visit Diagnoses Not on filedocumented in this encounter Additional Health Concerns Assessment Noted Time PHQ-9 Depression Total Score: 8 12/02/2019 2:02 PM CAMPAIGN MANAGER documented as of this encounter Care Teams Processor Inspector Relationship Specialty Start Date End Date Teresita Garcia MD PCP - General Family Practice 01/22/11 [address] [place] [address] Teresita Garcia MD Assigned PCP 11/16/16 12/28/21 [address] [place], [place] [phone] documented as of this encounter
--- OUTSIDE RECORDS SUMMARY | 2022-08-16 14:28 | XMS_ITS | Encounter Summary ---
:1960 Author Organization [place] Address [address] [facility] [place] [address] Care Team Providers Name Role Phone Teresita Garcia MD Primary Care Provider Teresita Garcia MD Unavailable Encounter Details Date Type Department Care Team Description 01/17/2020 Medical Correspondence [facility] Scan, PLAN OF CARE [facility] Non-Provider HOME HEALTH /HOSPICE Sr[facility]cs [address] [place] [address] Social History Tobacco Use Types [...] or relatives? How often do you attend lutheran or Not asked jainism services? Do you belong to any clubs or Not asked organizations such as lutheran groups, unions, fraternal or athletic groups, or [...] Virtual [place] [address] [place], [place] [phone] (Wo rk) documented as of this encounter Visit Diagnoses Not on filedocumented in this encounter Additional Health Concerns Assessment Noted Time PHQ-9 Depression Total Score: 8 12/02/2019 2:02 PM GAME FARM HELPER documented as of this encounter Care Teams Director Broadcast Relationship Specialty Start Date End Date Teresita Garcia MD PCP - General Family Practice 01/22/11 [address] [place], [place] [phone] Teresita Garcia MD Assigned PCP 11/16/16 12/28/21 [address] [place] [address] documented as of this encounter
--- OUTSIDE RECORDS SUMMARY | 2022-08-16 14:28 | XMS_ITS | Encounter Summary ---
:1960 Author Organization [place] Address [address] [place] [address] Care Team Providers Name Role Phone Teresita Garcia MD Primary Care Provider Teresita Garcia MD Unavailable Encounter Details Date Type Department Care Team Description 12/08/2019 Medical Correspondence [facility] Scan, [facility] CLINICS [address] [place] [address] Social History Tobacco Use Types [...] do you attend sikhism or Not asked jewish services? Do you [...] Virtual [place] [address] [place] [address] (Wo rk) documented as of this encounter Visit Diagnoses Not on filedocumented in this encounter Additional Health Concerns Assessment Noted Time PHQ-9 Depression Total Score: 8 12/02/2019 2:02 PM PHARMACY MESSENGER documented as of this encounter Care Teams Herb Grower Relationship Specialty Start Date End Date Teresita Garcia MD PCP - General Family Practice 01/22/11 [address] [place] [address] Teresita Garcia MD Assigned PCP 11/16/16 12/28/21 [address] [place], [place] [phone] documented as of this encounter
--- OUTSIDE RECORDS SUMMARY | 2022-08-16 14:28 | XMS_ITS | Encounter Summary ---
:1960 Author Organization [place] Address [facility] [place] [address] Care Team Providers Name Role Phone Teresita Garcia MD Primary Care Provider Teresita Garcia MD Unavailable Reason for Visit Reason Onset Date Comments Forms 02/14/2020 Plan of Care Encounter Details Date Type Department Care Team Description 02/14/2020 Telephone [facility] Roel Garcia MD Forms (Plan of Care) [phone] [place] [phone] Social History Tobacco Use Types Packs/Day Years [...] do you attend temple or Not asked adventist services? Do you [...] Notes Telephone Encounter - Rosy Brito - 02/15/2020 3:08 PM CDT Form completed and faxed, 02/15/20. Jackie Brito/AWILDA Telephone Encounter - Rosy Brito - 02/14/2020 1:39 PM CDT Received 6 page fax for Plan of Care for Dr Garcia to complete. Form in the in- basket at [facility] in 's folder. documented in this encounter Plan of Treatment Upcoming Encounters Date Type Specialty Care Team Description 08/18/2022 Virtual Visit [place] [address] [place], [place] [phone] (Wo rk) documented as of this encounter Visit Diagnoses Not on filedocumented in this encounter Additional Health Concerns Assessment Noted Time PHQ-9 Depression Total Score: 8 12/02/2019 2:02 PM GARMENT PARTS CUTTER MACHINE documented as of this encounter Care Teams Manager Market Development Relationship Specialty Start Date End Date Teresita Garcia MD PCP - General Family Practice 01/22/11 [address] [place] [address] Teresita Garcia MD Assigned PCP 11/16/16 12/28/21 [address] [place] [address] documented as of this encounter
--- OUTSIDE RECORDS SUMMARY | 2022-08-16 14:28 | XMS_ITS | Encounter Summary ---
:1960 Author Organization [place] Address [address] [facility] [place] [address] Care Team Providers Name Role Phone Teresita Garcia MD Primary Care Provider Teresita Garcia MD Unavailable Encounter Details Date Type Department Care Team Description 12/02/2019 Travel Social History Tobacco Use Types Packs/Day [...] do you attend sikh or Not asked baptist services? Do you [...] Virtual Visit [place] [address] [place] [address] (Wo rk) documented as of this encounter Visit Diagnoses Not on filedocumented in this encounter Additional Health Concerns Assessment Noted Time PHQ-9 Depression Total Score: 8 12/02/2019 2:02 PM COMMERCIAL CARPENTER documented as of this encounter Care Teams Java Security Engineer Relationship Specialty Start Date End Date Teresita Garcia MD PCP - General Family Practice 01/22/11 [address] [place] [address] eTresita Garcia MD Assigned PCP 11/16/16 12/28/21 [address] [place] [address] documented as of this encounter
--- OUTSIDE RECORDS SUMMARY | 2022-08-16 14:28 | XMS_ITS | Encounter Summary ---
:1960 Author Organization [place] Address [address] [facility] [place] [address] Care Team Providers Name Role Phone Teresita Garcia MD Primary Care Provider Teresita Garcia MD Unavailable Reason for Visit Reason Onset Date Comments Forms 03/12/2020 Orders / Two forms Encounter Details Date Type Department Care Team Description 03/12/2020 Telephone [facility] Teresita Garcia MD Forms (Orders / Two Clinic [place] [id number] [place] [address] forms) [id number] [place] [phone] Social History Tobacco Use Types Packs/Day [...] do you attend rastafarian or Not asked rastafarian services? Do you belong to any clubs [...] this encounter Miscellaneous Notes Telephone Encounter - Carolynn Eng - 03/12/2020 3:13 PM CDT Reviewed and signed by Kiersten De Souza MD. Faxed to [phone]. Carolynn Eng. Truck Loader Telephone Encounter - Roger Patel - 03/12/2020 11:51 AM CDT Reason for call: Two forms / Orders Our goal is to have forms completed within 72 hours, however some forms may require a visit or additional information. Who is the form from? Home care Where did the form come from? form was faxed in What clinic location was the form placed at? [facility] Where was the form placed? [facility] What number is listed as a contact on the form? [phone] Phone call message - patient request for a letter, form or note: Date needed: within one week Please fax to [phone] Has the patient signed a consent form for release of information? Not Applicable Type of letter, form or note: Orders Phone number to reach patient: Other phone number: [phone] documented in this encounter Plan of Treatment Upcoming Encounters Date Type Specialty Care Team Description 08/18/2022 Virtual Visit [place] [address] [place] [address] (Wo rk) documented as of this encounter Visit Diagnoses Not on filedocumented in this encounter Additional Health Concerns Assessment Noted Time PHQ-9 Depression Total Score: 8 12/02/2019 2:02 PM CASINO CAGE MANAGER documented as of this encounter Care Teams Life Trainer Relationship Specialty Start Date End Date Teresita Garcia MD PCP - General Family Practice 01/22/11 [address] [place] [address] Teresita Garcia MD Assigned PCP 11/16/16 12/28/21 [address] [place] [address] documented as of this encounter
--- OUTSIDE RECORDS SUMMARY | 2022-08-16 14:28 | XMS_ITS | Encounter Summary ---
:1960 Author Organization [place] Address [address] [place] [address] Care Team Providers Name Role Phone Teresita Garcia MD Primary Care Provider Teresita Garcia MD Unavailable Encounter Details Date Type Department Care Team Description 12/02/2019 Medical Correspondence [facility] Scan, DISCHARGE/ORDER Health Info Mgmt Non-Provider SUMMARY [facility] [address] [place] [address] Social History Tobacco Use Types [...] or relatives? How often do you attend uatsdin or Not asked worship services? Do you belong to any clubs or Not asked organizations such as uatsdin groups, unions, fraternal or athletic groups, or [...] Virtual [place] [address] [place], [place] [phone] (Wo rk) documented as of this encounter Visit Diagnoses Not on filedocumented in this encounter Additional Health Concerns Assessment Noted Time PHQ-9 Depression Total Score: 8 12/02/2019 2:02 PM FIELD ARTILLERY CREWMEMBER documented as of this encounter Care Teams Cardiovascular Radiologic Technologist Relationship Specialty Start Date End Date Teresita Garcia MD PCP - General Family Practice 01/22/11 [address] [place] [address] Teresita Garcia MD Assigned PCP 11/16/16 12/28/21 [address] [place], [place] [phone] documented as of this encounter
--- OUTSIDE RECORDS SUMMARY | 2022-08-16 14:28 | XMS_ITS | Encounter Summary ---
:1960 Author Organization [place] Address [address] [facility] [place] [address] Care Team Providers Name Role Phone Teresita Garcia MD Primary Care Provider Teresita Garcia MD Unavailable Reason for Visit Reason Onset Date Comments Forms 01/03/2020 Physician Orders Encounter Details Date Type Department Care Team Description 01/03/2020 Telephone [facility] Teresita Garcia MD Forms ([facility] [id number] [place] [address] Orders) [address] [place], [place] [phone] Social History Tobacco Use Types Packs/Day [...] do you attend mu-ism or Not asked orthodox services? Do you [...] Notes Telephone Encounter - Rosy Brito - 01/04/2020 1:30 PM CDT Form completed and faxed, 01/04/2020 Jackie Brito/AWILDA Telephone Encounter - Rosy Brito - 01/03/2020 1:14 PM CDT Received 2 page fax for Physician Orders for Dr Garcia to complete. Form in the in-basket at [facility] in AA's folder. documented in this encounter Plan of Treatment Upcoming Encounters Date Type Specialty Care Team Description 08/18/2022 Virtual Visit [place] [address] [place], [place] [phone] (Wo rk) documented as of this encounter Visit Diagnoses Not on filedocumented in this encounter Additional Health Concerns Assessment Noted Time PHQ-9 Depression Total Score: 8 12/02/2019 2:02 PM DIRECTOR COLLEGE documented as of this encounter Care Teams Benefits Consulting Analyst Relationship Specialty Start Date End Date Teresita Garcia MD PCP - General Family Practice 01/22/11 [address] [place] [address] Teresita Garcia MD Assigned PCP 11/16/16 12/28/21 [address] [place], [place] [phone] documented as of this encounter
--- OUTSIDE RECORDS SUMMARY | 2022-08-16 14:28 | XMS_ITS | Encounter Summary ---
:1960 Author Organization [employer] [place] Address [address] [place] [address] Care Team Providers Name Role Phone Teresita Garcia MD Primary Care Provider Teresita Garcia MD Unavailable Encounter Details Date Type Department Care Team Description 01/03/2020 Travel Social History Tobacco Use Types Packs/Day [...] or relatives? How often do you attend zoroastrianism or Not asked uatsdin services? Do you belong to any clubs or Not asked organizations such as zoroastrianism groups, unions, fraternal or athletic groups, or [...] Virtual [place] [address] [place], [place] [phone] (Wo rk) documented as of this encounter Visit Diagnoses Not on filedocumented in this encounter Additional Health Concerns Assessment Noted Time PHQ-9 Depression Total Score: 8 12/02/2019 2:02 PM WELL TESTING OPERATOR documented as of this encounter Care Teams Sales Training Representative Relationship Specialty Start Date End Date Teresita Garcia MD PCP - General Family Practice 01/22/11 [address] [place] [address] Teresita Garcia MD Assigned PCP 11/16/16 12/28/21 [address] [place], [place] [phone] documented as of this encounter
--- OUTSIDE RECORDS SUMMARY | 2022-08-16 14:28 | XMS_ITS | Encounter Summary ---
:1960 Author Organization [place] Address [address] [place] [address] Care Team Providers Name Role Phone Teresita Garcia MD Primary Care Provider Teresita Garcia MD Unavailable Reason for Referral Diagnostic Imaging Dexa (Routine) - Closed Specialty Diagnoses / Procedures Referred By Contact Refer red To Contact Diagnoses Osteoporosis without current pathological fracture, unspecified osteoporosis type Teresita Garcia MD Procedures DX Hip/Pelvis/Spine [address] [place], [place] [address] Referral ID Status Reason Start Date Expiration Date Visits Requ ested Visits Authorized [id number] Closed 12/03/2019 12/02/2020 1 1 CE 365 CONSULTANT Reason for Visit Reason Onset Date Comments Radiology Visit 12/02/2019 need for Encounter Details Date Type Department Care Team Description 12/02/2019 Telephone [facility] Teresita Garcia MD Radiology Visit (need Clinic [place] [address] [place] [address] for) [address] [place] [address] [phone] Social History Tobacco Use Types Packs/Day Years [...] do you attend restoration or Not asked presybeterian services? Do you belong to any clubs or Not asked organizations such as restoration groups, unions, [employer] or athletic groups, or school groups? How [...] Telephone Encounter - Joselin Najera RN - 12/02/2019 3:32 PM CST Spoke with pt he is agreeable and will call for the appointment on Thursday. Order t'd up. Joselin Najera RN CE 365 CONSULTANT Telephone Encounter - Teresita Garcia MD - 12/02/2019 3:03 PM CST I looked at the records and last Dexa scan I've seen was in 12/2016, so it is not a bad idea to repeat his Dexa scan this year, if he is ok with it. Teresita Garcia MD [facility] [phone] CE [address] CONSULTANT documented in this encounter Plan of Treatment Upcoming Encounters Date Type Specialty Care Team Description 08/18/2022 Virtual Visit [place] [address] [place] [address] (Wo rk) documented as of this encounter Results DX Hip/Pelvis/Spine (04/04/2020 1:36 PM CDT) Anatomical Region Laterality Modality Dexa Bone Mineral Density Specimen (Source) Anatomical Location Collection Method / Collectio n Time Received Time / Laterality Volume Narrative 04/06/2020 1:21 PM CDT BONE DENSITOMETRY [address] [address] 04/04/2020 ?? PATIENT: Dejuan Rodriguez CHART: [id number] : ??1960 AGE: ??59 year old SEX: ??male REFERRING PROVIDER: Teresita Garcia MD ?? PROCEDURE: ??Bone density scanning was p erformed using DXA technology of the lumbar spine and hip. ??Scanning was performed on a [employer] Integrated scanner. ??Reporting is completed in the form of a T-score. ??The T-score represents the standard deviation from p eak bone mass based on a young healthy adult. ?? REFERENCE T-SCORES: ?Normal ?-1.0 and greater ?Osteopenia ? Between -1. 0 and -2.5 ?Osteoporosis ? -2.5 and less ? RISK FACTORS: ??Post-menopausal, Parent history of osteoporosis with a hip fracture, longterm corticosteroid thera py CURRENT TREATMENT: ??Calcium, Fosamax [...] current pathologica l fracture, unspecified osteoporosis type - Primary Osteoporosis without current pathologica l fracture, unspecified osteoporosis type documented in this encounter Additional Health Concerns Assessment Noted Time PHQ-9 Depression Total Score: 8 12/02/2019 2:02 PM OFFICE 365 CONSULTANT documented as of this encounter Care Teams Solutions Manager Relationship Specialty Start Date End Date Teresita Garcia MD PCP - General Family Practice 01/22/11 [address] [place], [place] [phone] Teresita Garcia MD Assigned PCP 11/16/16 12/28/21 [address] [place] [address] documented as of this encounter
--- OUTSIDE RECORDS SUMMARY | 2022-08-16 14:28 | XMS_ITS | Encounter Summary ---
:1960 Author Organization [place] Address [address] [place] [address] Care Team Providers Name Role Phone Teresita Garcia MD Primary Care Provider Teresita Garcia MD Unavailable Reason for Visit Reason Onset Date Comments Orders 12/05/2019 [facility] Encounter Details Date Type Department Care Team Description 12/05/2019 Telephone [facility] Teresita Garcia MD Orders ([facility] [address]) [address] [place] [address] [phone] Social History Tobacco Use Types Packs/Day [...] or relatives? How often do you attend evangelical or Not asked yarsani services? Do you belong to any clubs or Not asked organizations such as evangelical groups, unions, fraternal or athletic groups, or [...] this encounter Miscellaneous Notes Telephone Encounter - Cameroncathryn Malena - 12/05/2019 4:27 PM CDT Signed forms faxed. Malena Hankins Manager Sports Telephone Encounter - Malena Hankins - 12/05/2019 9:13 AM CDT Recd 3 page fax from [employer]. Please sign orders and fax to [phone]. Form in AA folder at [facility]. Malena Hankins Manager Sports documented in this encounter Plan of Treatment Upcoming Encounters Date Type Specialty Care Team Description 08/18/2022 Virtual Visit [place] [address] [place], [place] [phone] (Wo rk) documented as of this encounter Visit Diagnoses Not on filedocumented in this encounter Additional Health Concerns Assessment Noted Time PHQ-9 Depression Total Score: 8 12/02/2019 2:02 PM BATTING MACHINE OPERATOR documented as of this encounter Care Teams Wastewater Design Engineer Relationship Specialty Start Date End Date Teresita Garcia MD PCP - General Family Practice 01/22/11 [address] [place] [address] Teresita Garcia MD Assigned PCP 11/16/16 12/28/21 [address] [place] [address] documented as of this encounter
--- OUTSIDE RECORDS SUMMARY | 2022-08-16 14:28 | XMS_ITS | Encounter Summary ---
:1960 Author Organization [place] Address [address] [place] [address] Care Team Providers Name Role Phone Teresita Garcia MD Primary Care Provider Teresita Garcia MD Unavailable Reason for Visit Reason Onset Date Comments Forms 01/17/2020 Physician Order Encounter Details Date Type Department Care Team Description 01/17/2020 Telephone [facility] Teresita Garcia MD Forms (Physician Order) Clinic [address] [place] [phone] Social History Tobacco Use Types Packs/Day [...] do you attend spiritism or Not asked restoration services? Do you [...] Notes Telephone Encounter - Rosy Brito - 01/17/2020 4:05 PM CDT Form completed and faxed, 01/17/2020 Jackie Brito/AWILDA Telephone Encounter - Blanca Choi RN - 01/17/2020 3:13 PM CDT [facility] faxed form needing signature by provider in clinic for RN visits to assist with rivera catheter assessment, edema 11/29 - 01/19/2020 Form given to in clinic provider for signature as pcp is out of the office due to Covid 19 altered schedules Blanca Choi Registered Nurse [facility] Telephone Encounter - Rosy Brito - 01/17/2020 10:04 AM CDT Received 2 page fax for Physician Order fro Dr Garcia to complete. Form in the in- basket at [facility] in AA's folder. documented in this encounter Plan of Treatment Upcoming Encounters Date Type Specialty Care Team Description 08/18/2022 Virtual Visit [place] [address] [place], [place] [phone] (Wo rk) documented as of this encounter Visit Diagnoses Not on filedocumented in this encounter Additional Health Concerns Assessment Noted Time PHQ-9 Depression Total Score: 8 12/02/2019 2:02 PM BONDING AGENT documented as of this encounter Care Teams R D Manager Relationship Specialty Start Date End Date Teresita Garcia MD PCP - General Family Practice 01/22/11 [address] [place], [place] [phone] Teresita Garcia MD Assigned PCP 11/16/16 12/28/21 [address] [place] [address] documented as of this encounter
--- OUTSIDE RECORDS SUMMARY | 2022-08-16 14:28 | XMS_ITS | Encounter Summary ---
:1960 Author Organization [place] Address [facility] [place] [address] Care Team Providers Name Role Phone Teresita Garcia MD Primary Care Provider Teresita Garcia MD Unavailable Reason for Visit Reason Onset Date Comments Orders 12/07/2019 [facility] Encounter Details Date Type Department Care Team Description 12/07/2019 Telephone [facility] Teresita Garcia MD Orders ([facility] [address] [place] [address]) [address] [place] [address] [phone] Social History Tobacco Use Types Packs/Day [...] or relatives? How often do you attend islam or Not asked tenriism services? Do you belong to any clubs or Not asked organizations such as islam groups, unions, fraternal or athletic groups, or [...] Telephone Encounter - Yumiko Camp CMA - 12/12/2019 11:48 AM CDT Signed form faxed to number listed. Yumiko Camp CMA Telephone Encounter - Malena Hankins - 12/07/2019 3:18 PM CDT Recd 4 page fax from [employer] [facility]. Please sign orders and fax to [phone]. Form in AA folder at [place]. Malena Hankins Hearing Officer documented in this encounter Plan of Treatment Upcoming Encounters Date Type Specialty Care Team Description 08/18/2022 Virtual Visit [place] [address] [place] [address] (Wo rk) documented as of this encounter Visit Diagnoses Not on filedocumented in this encounter Additional Health Concerns Assessment Noted Time PHQ-9 Depression Total Score: 8 12/02/2019 2:02 PM DESKTOP SUPPORT MANAGER documented as of this encounter Care Teams Entry Level Web Developer Relationship Specialty Start Date End Date Teresita Garcia MD PCP - General Family Practice 01/22/11 [address] [place] [address] Teresita Garcia MD Assigned PCP 11/16/16 12/28/21 [address] [place] [address] documented as of this encounter
--- OUTSIDE RECORDS SUMMARY | 2022-08-16 14:28 | XMS_ITS | Encounter Summary ---
:1960 Author Organization [place] Address [address] [facility] [place] [address] Care Team Providers Name Role Phone Teresita Garcia MD Primary Care Provider Teresita Garcia MD Unavailable Encounter Details Date Type Department Care Team Description 03/04/2020 Medical Correspondence [facility] [place] Scan, HOME HEALTH VISIT Health Info Mgmt Non-Provider [facility] [address] [place] [phone] Social History Tobacco Use Types Packs/Day [...] you attend jehovah's witness or Not asked confucianism services? Do you belong to any clubs [...] Virtual Visit [place] [address] [place], [place] [phone] (Wo rk) documented as of this encounter Visit Diagnoses Not on filedocumented in this encounter Additional Health Concerns Assessment Noted Time PHQ-9 Depression Total Score: 8 12/02/2019 2:02 PM CHEESE CUTTER documented as of this encounter Care Teams Component Lab Tech Relationship Specialty Start Date End Date Teresita Garcia MD PCP - General Family Practice 01/22/11 [address] [place] [address] Teresita Garcia MD Assigned PCP 11/16/16 12/28/21 [address] [place], [place] [phone] documented as of this encounter
--- OUTSIDE RECORDS SUMMARY | 2022-08-16 14:28 | XMS_ITS | Encounter Summary ---
:1960 Author Organization [place] Address [address] [facility] [place] [address] Care Team Providers Name Role Phone Teresita Garcia MD Primary Care Provider Teresita Garcia MD Unavailable Reason for Visit Reason Onset Date Comments Home Health 12/07/2019 Requesting verbal ap proval Encounter Details Date Type Department Care Team Description 12/07/2019 Telephone [facility] Teresita Garcia MD [facility] (Requesting Clinic [employer] [address] [place] [address] verbal approval) [address] [place] [phone] Social History Tobacco Use Types [...] or relatives? How often do you attend druze or Not asked bahai services? Do you belong to any clubs or Not asked organizations such as druze groups, unions, fraternal or athletic groups, or [...] Telephone Encounter - Mary More RN - 12/08/2019 2:04 PM CDT L/M with verbal for Lili. Mary More RN Telephone Encounter - Teresita Garcia MD - 12/08/2019 1:33 PM CDT Approved. Telephone Encounter - Perez Almanzar - 12/07/2019 4:52 PM CDT Lili Duarte RN calling from Home Care, Occupational therapist. Requesting verbal approval from Dr. Garcia for 5 additional home visits, ok for verbal, please advise. Ok to call Lili back at [phone] Perez Almanzar MA documented in this encounter Plan of Treatment Upcoming Encounters Date Type Specialty Care Team Description 08/18/2022 Virtual Visit [place] [address] [place] [address] (Wo rk) documented as of this encounter Visit Diagnoses Not on filedocumented in this encounter Additional Health Concerns Assessment Noted Time PHQ-9 Depression Total Score: 8 12/02/2019 2:02 PM HOOF AND SHOE INSPECTOR documented as of this encounter Care Teams Lead Warehouse Associate Relationship Specialty Start Date End Date Teresita Garcia MD PCP - General Family Practice 01/22/11 [address] [place] [address] Teresita Garcia MD Assigned PCP 11/16/16 12/28/21 [address] [place] [address] documented as of this encounter
--- OUTSIDE RECORDS SUMMARY | 2022-08-16 14:28 | XMS_ITS | Encounter Summary ---
:1960 Author Organization [place] Address [address] [facility] [place] [address] Care Team Providers Name Role Phone Teresita Garcia MD Primary Care Provider Teresita Garcia MD Unavailable Reason for Visit Reason Onset Date Comments Orders 12/06/2019 Home Care orders Encounter Details Date Type Department Care Team Description 12/06/2019 Telephone [facility] Teresita Garcia MD Orders ([facility] [place] [address] [place] [address] orders) [address] [place] [address] [phone] Social History Tobacco Use Types Packs/Day [...] do you attend yazidi or Not asked sabianism services? Do you belong to any clubs [...] this encounter Miscellaneous Notes Telephone Encounter - Ashley Anaya RN - 12/07/2019 8:37 AM CDT Bianka with [facility] calling back Gave VO for orders as requested below Ashley Anaya RN Telephone Encounter - Mary More RN - 12/07/2019 8:29 AM CDT Unidentified V/M. Left general message calling back re: Dejuan. Advised need call back as unidentified V/M. Mary More RN Telephone Encounter - Jenni Bryant - 12/06/2019 5:00 PM CDT Order/Referral Request: Who is requesting: Lennox Orders being requested: [facility] Reason service is needed/diagnosis: Physical Therapy one more time this week, then twice next week. Therapeutic exercise and transfer. Where to send Orders: Call to give verbal at [phone]. Jenni Bryant Pet Technologist documented in this encounter Plan of Treatment Upcoming Encounters Date Type Specialty Care Team Description 08/18/2022 Virtual [place] [address] [place], [place] [phone] (Wo rk) documented as of this encounter Visit Diagnoses Not on filedocumented in this encounter Additional Health Concerns Assessment Noted Time PHQ-9 Depression Total Score: 8 12/02/2019 2:02 PM BOOK CANVASSER documented as of this encounter Care Teams Biofuels Engineering Manager Relationship Specialty Start Date End Date Teresita Garcia MD PCP - General Family Practice 01/22/11 [address] [place], [place] [phone] Jose, Amer, MD Assigned PCP 11/16/16 12/28/21 [address] [place] [address] documented as of this encounter
--- OUTSIDE RECORDS SUMMARY | 2022-08-16 14:28 | XMS_ITS | Encounter Summary ---
:1960 Author Organization [place] Address [facility] [place] [address] Care Team Providers Name Role Phone Teresita Garcia MD Primary Care Provider Teresita Garcia MD Unavailable Reason for Visit Reason Comments Medication Refill Encounter Details Date Type Department Care Team Description 02/07/2020 Refill [facility] Roel Garcia MD Medication Refill [place] [address] [place] [address] [place], [place] [address] [place] [phone] Social History Tobacco Use Types Packs/Day Years [...] do you attend yarsani or Not asked latter-day services? Do you [...] this encounter Miscellaneous Notes Telephone Encounter - Wilda Schroeder RN - 02/07/2020 1:34 PM CDT Routing refill request to provider for review/approval because: Labs not current: VALERIA Schroeder RN, BSN documented in this encounter Plan of Treatment Upcoming Encounters Date Type Specialty Care Team Description 08/18/2022 Virtual [place] [address] [place], [place] [phone] (Wo rk) documented as of this encounter Visit Diagnoses Diagnosis Osteoporosis, unspecified osteoporosis t ype, unspecified pathological fracture presence documented in this encounter Additional Health Concerns Assessment Noted Time PHQ-9 Depression Total Score: 8 12/02/2019 2:02 PM FIELD MECHANIC documented as of this encounter Care Teams Syrup Filterer Relationship Specialty Start Date End Date Teresita Garcia MD PCP - General Family Practice 01/22/11 [address] [place] [address] Teresita Garcia MD Assigned PCP 11/16/16 12/28/21 [address] [place], [place] [phone] documented as of this encounter
--- OUTSIDE RECORDS SUMMARY | 2022-08-16 14:28 | XMS_ITS | Encounter Summary ---
:1960 Author Organization [place] Address [address] [place] [address] Care Team Providers Name Role Phone Teresita Garcia MD Primary Care Provider Teresita Garcia MD Unavailable Reason for Visit Reason Onset Date Comments Orders 12/21/2019 [facility] Encounter Details Date Type Department Care Team Description 12/21/2019 Telephone [facility] Teresita Garcia MD Orders ([facility] [address]) [address] [place] [address] [phone] Social History Tobacco Use Types Packs/Day [...] or relatives? How often do you attend rastafari or Not asked scientology services? Do you belong to any clubs or Not asked organizations such as rastafari groups, unions, fraternal or athletic groups, or [...] Notes Telephone Encounter - Rosy Brito - 12/22/2019 2:57 PM CDT Form completed and faxed, 12/22/2019 Jackie Brito/AWILDA Telephone Encounter - Malena Hankins - 12/21/2019 11:38 AM CDT Recd 2 page fax from [employer]. Please sign orders and fax to [phone] Form in AA folder at [facility]. Malena Hankins [place] documented in this encounter Plan of Treatment Upcoming Encounters Date Type Specialty Care Team Description 08/18/2022 Virtual [place] [address] [place], [place] [phone] (Wo rk) documented as of this encounter Visit Diagnoses Not on filedocumented in this encounter Additional Health Concerns Assessment Noted Time PHQ-9 Depression Total Score: 8 12/02/2019 2:02 PM COLLEGE SPECIALIST documented as of this encounter Care Teams Boiler Tender Relationship Specialty Start Date End Date Teresita Garcia MD PCP - General Family Practice 01/22/11 [address] [place] [address] Teresita Garcia MD Assigned PCP 11/16/16 12/28/21 [address] [place] [address] documented as of this encounter
--- OUTSIDE RECORDS SUMMARY | 2022-08-16 14:28 | XMS_ITS | Encounter Summary ---
:1960 Author Organization [place] Address [address] [facility] [address] Care Team Providers Name Role Phone Teresita Garcia MD Primary Care Provider Teresita Garcia MD Unavailable Encounter Details Date Type Department Care Team Description 01/30/2020 Medical Correspondence [facility] Scan, PLAN OF CARE [facility] Non-Provider HOME HEALTH /HOSPICE Srv[facility] [address] [place] [address] Social History Tobacco Use Types [...] you attend jehovah's witness or Not asked adventist services? Do you [...] Virtual Visit [place] [address] [place], [place] [phone] (Wo rk) documented as of this encounter Visit Diagnoses Not on filedocumented in this encounter Additional Health Concerns Assessment Noted Time PHQ-9 Depression Total Score: 8 12/02/2019 2:02 PM BURN OUT SCARFING OPERATOR documented as of this encounter Care Teams Rail Signal Designer Relationship Specialty Start Date End Date Teresita Garcia MD PCP - General Family Practice 01/22/11 [address] [place], [place] [phone] Teresita Garcia MD Assigned PCP 11/16/16 12/28/21 [address] [place] [address] documented as of this encounter
--- NOTE | 2022-08-16 14:29 | ED_ITS ---
HPI - Weakness General Chief complaint: Weakness Stated complaint: Weakness Time Seen by Provider: 08/16/22 14:02 History of Present Illness HPI Narrative: 61-year-old man presenting to the emergency department after being encouraged to do so by his assisted living. Does have a history of multiple sclerosis which has been ?going crazy? lately. Indicating that has been flaring and increasingly spastic. This can mean that he has urinary tract infection. Does have an indwelling Valenzuela which has been changed 2 weeks ago about. Has monthly changes. No pain complaints however has been having rather poor sleep over the last month or 2 as I acknowledge how tired he looks, related to jaw pain. Depending on what specialist he talks to it might be TMJ. Overall seems to be improving. Does have a baclofen pump. Has not had a fever. Has had some looser stools some diarrheal for unspecified amount of weeks. Is not short of breath. No chest pain. No rash is noted. He has been trying to stay hydrated. He does acknowledge that with bad MS flares does receive Solu-Medrol: I was asking about potential need for Medrol Dosepaks. He does not think this rises to the level of bad. He just wants to know whether not he has a urinary tract infection Related Data Home Medications Medication Instructions Recorded Confirmed alendronate 70 mg tablet 70 mg PO .weekly 08/16/22 08/16/22 baclofen 10 mg tablet 10 mg PO Q6H PRN 08/16/22 08/16/22 gabapentin 400 mg capsule 400 mg PO QID 08/16/22 08/16/22 ketoconazole 2 % shampoo 1 applic topical .twice weekly 08/16/22 08/16/22 ocrelizumab 30 mg/mL intravenous 300 mg IV [id number] 08/16/22 08/16/22 solution (Ocrevus) polyethylene glycol 3350 17 17 g PO DAILY PRN 08/16/22 08/16/22 gram/dose oral powder (ClearLax) pramipexole 0.125 mg tablet 0.125 mg PO QID 08/16/22 08/16/22 Allergies Allergy/AdvReac Type Severity Reaction Status Date / Time hydromorphone [From Dilaudid] AdvReac Intermediate Vomiting Verified 08/16/22 13:48 Review of Systems Status of ROS: Reports: 10 or more systems reviewed and unremarkable except as noted in History and below PFSH PFS Social History Smoking Status: Never smoker Do you use any of these nicotine containing products: None Second hand tobacco smoke exposure: No How often do you have a drink containing alcohol: never How often do you have six or more drinks on one occasion: Never AUDIT-C Alcohol total score: 0 Non-prescribed substance use: denies use service: No Exam Narrative: Exam Narrative: Mr. Rodriguez is pleasant. He is a conversant. Breathing easily. His skin is warm and dry. The catheter appears to be full of clear pale yellow urine. Again does appear tired but a conversing quickly in this regard with good energy. Cranial nerves 2-12 to be intact. There is some spasticity demonstrated of the left arm versus the right with contracture at the wrist. Generally decreased muscle tone. Mild nonpitting pedal edema. Does have compression stockings on. Appears well perfused extremities. Oropharynx is moist not erythematous. Lungs are clear. Cardiovascular with regular rate and rhythm is distant. Abdomen is overweight soft and nontender. There is a palpable firm gpxp-bn-dkldd-sized object in the right low abdomen consistent with baclofen pump placement. Const: Vital Signs, click to edit/add: Vital Signs - 24 hr 08/16/22 13:51 Temperature 97.0 F L Pulse Rate [Pulse Oximeter] 89 Respiratory Rate 18 Blood Pressure [Le ft Upper Arm] 119/62 Pulse Oximetry 96 Oxygen Delivery Me thod Room Air Documenting provider has reviewed patient's vital signs: yes Course Vital Signs Vital signs: Initial Vital Signs Temperature 97.0 F L 08/16/22 13:51 Temperature Source Temporal Artery Scan 08/16/22 13:51 Pulse Rate 89 08/16/22 13:51 Respiratory Rate 18 08/16/22 13:51 Blood Pressure 119/62 08/16/22 13:51 Blood Pressure Mean 81 08/16/22 13:51 Blood Pressure Position Right Lateral 08/16/22 13:51 Pulse Oximetry 96 08/16/22 13:51 Oxygen Delivery Method 08/16/22 13:51 Vital Signs Temperature 97.0 F L 08/16/22 13:51 Pulse Rate 89 08/16/22 13:51 Respiratory Rate 18 08/16/22 13:51 Blood Pressure 119/62 08/16/22 13:51 Pulse Oximetry 96 08/16/22 13:51 Oxygen Delivery Method 08/16/22 13:51 Temperature 97.0 F L 08/16/22 13:51 Pulse Rate 82 08/16/22 16:33 Respiratory Rate 18 08/16/22 16:33 Blood Pressure 121/83 08/16/22 16:33 Pulse Oximetry 96 08/16/22 16:33 Oxygen Delivery Method 08/16/22 16:33 MDM - Weakness MDM Narrative Medical decision making narrative: He does acknowledge that with bad MS flares does receive Solu-Medrol: I was asking about potential need for Medrol Dosepaks. He does not think this rises to the level of bad. He just wants to know whether not he is urinary tract infection Urine clear. COVID influenza testing negative. Mr. Rodriguez declined further workup saying that he just wanted to know if he had urinary tract infection. Medical Records Attestation: I reviewed the patient's medical records. Lab Data Attestation: I reviewed the patient's lab results. Labs: Lab Results 08/16/22 08/16/22 Range/Units 14:30 14:30 Urine Color Yellow (Yellow) Urine Appearance Clear (Clear) Urine pH 7.5 (5.0-8.5) Ur Specific Kimberly 1.010 (1.000-1.030) Urine Protein Negative (Negative) Urine Glucose (UA) Negative (Negative) Urine Ketones Negative (Negative) Urine Blood Negative (Negative) Urine Nitrite Negative (Negative) Urine Bilirubin Negative (Negative) Urine Urobilinogen 0.2 (0.2-1.0) Ur Leukocyte Esterase Trace A (Negative) Urine RBC 0-2 (0-2) Urine WBC 0-2 (0-5) Ur Squamous Epith Cells Few (None-Few) Urine Bacteria None (None) SARS-CoV-2 (PCR) Negative SARS-CoV-2 (Negative) Influenza Type A (PCR) Negative PCR FLU A (Negative) Influenza Type B (PCR) Negative PCR FLU B (Negative) Discharge Plan Discharge Clinical Impression: Muscle spasticity, Multiple sclerosis Patient Disposition: Home w/ Parent or Adult Condition: Stable Additional Instructions: Stay well-hydrated. Might be good to place a preemptive call to your neurologist. Return for worsening/intensifying symptoms, associated fever, worsening weakness. Prescriptions: No Action alendronate 70 mg tablet 70 mg PO .weekly Ocrevus 30 mg/mL solution 300 mg IV [id number] gabapentin 400 mg capsule 400 mg PO QID Label Comments: TAKE ONE CAPSULE BY MOUTH FOUR TIMES A DAY ketoconazole 2 % shampoo 1 applic TOPICAL .twice weekly Label Comments: APPLY TOPICALLY ONCE WEEKLY pramipexole 0.125 mg tablet 0.125 mg PO QID Label Comments: TAKE ONE TABLET BY MOUTH FOUR TIMES A DAY baclofen 10 mg tablet 10 mg PO Q6H PRN Label Comments: TAKE 1-2 TABLETS BY MOUTH EVERY 6 HOURS NEEDED (SPASTICITY/ACUTE INTRATHECAL BACLOFEN WITHDRAWAL) AND CALL CLINIC FOR INSTRUCTION polyethylene glycol 3350 [ClearLax] 17 gram/dose powder 17 g PO DAILY PRN Follow Up/Referrals: Provider,Not a Local [Primary Care Provider] - Stand Alone [facility]: [facility] Info Instructions
--- OUTSIDE RECORDS SUMMARY | 2022-08-16 14:29 | XMS_ITS | Encounter Summary ---
:1960 Author Organization [place] Address [address] [facility] [place] [address] Care Team Providers Name Role Phone Teresita Garcia MD Primary Care Provider Teresita Garcia MD Unavailable Reason for Visit Reason Onset Date Comments Medication Request 10/04/2019 Abx before Dental pr ocedure Encounter Details Date Type Department Care Team Description 10/04/2019 Telephone [facility] Teresita Garcia MD Medication Request (Abx Clinic [place] [address] before Dental [address] [place], [place] procedure) [place] [phone] Social History Tobacco Use Types Packs/Day Years Used Date Smoking Tobacco: Never Smokeless Tobacco: Never Alcohol Use Standard Drinks/Week Comments No 0 (1 standard drink = 0.6 oz [...] do you attend confucianist or Not asked synagogue services? Do you belong to any clubs [...] this encounter Miscellaneous Notes Telephone Encounter - Deann Lora RN - 10/05/2019 9:08 AM CST Call out to pt, message given Voiced understanding Deann Lora RN, BS Clinical Nurse Triage. CTOR OF GROUP SALES Telephone Encounter - Teresita Garcia MD - 10/05/2019 7:42 AM CST No recommendations for Abx unless patient does have valve replacement, or congenital heart disease. Teresita Garcia MD [facility] [phone] CTOR OF GROUP SALES Telephone Encounter - Mary More RN - 10/04/2019 11:29 AM CST Called patient back. States has had surgeon and dentist give RX in past. Both have since retired. Discussed protocol has changed for predental and joint replacements but will leave up to Dr. Garcia to advise if premed needed or not. His appt is tomorrow at 1:30 pm. Is for dental cleaning. Did advise out of office for day. Mary More RN CTOR OF GROUP SALES Telephone Encounter - Gregory Bronson - 10/04/2019 11:22 AM CST Patient wants to know if he needs Abx before dental procedure tomorrow. He has had hips replaced. If so send to [facility]. Call and let patient know. CTOR OF GROUP SALES documented in this encounter Plan of Treatment Upcoming Encounters Date Type Specialty Care Team Description 08/18/2022 Virtual Visit [facility] [place] [address] [place] [address] (Wo rk) documented as of this encounter Visit Diagnoses Not on filedocumented in this encounter Additional Health Concerns Assessment Noted Time PHQ-9 Depression Total Score: 5 11/25/2018 3:25 PM DIRECTOR OF GROUP SALES documented as of this encounter Care Teams Electromedical Equipment Repairer Relationship Specialty Start Date End Date Teresita Garcia MD PCP - General Family Practice 01/22/11 [address] [place], [place] [phone] Teresita Garcia MD Assigned PCP 11/16/16 12/28/21 [address] [place] [address] documented as of this encounter
--- OUTSIDE RECORDS SUMMARY | 2022-08-16 14:29 | XMS_ITS | Encounter Summary ---
:1960 Author Organization [place] Address [address] [place] [address] Care Team Providers Name Role Phone Teresita Garcia MD Primary Care Provider Teresita Garcia MD Unavailable Reason for Visit Reason Onset Date Comments Refill Request 08/19/2019 Encounter Details Date Type Department Care Team Description 08/19/2019 Refill [facility] Roel Garcia MD Refill Request [address] [address] [place] [address] [phone] Social History Tobacco Use Types Packs/Day Years [...] do you attend christianity or Not asked tenriism services? Do you [...] Virtual Visit [place] [address] [place], [place] [phone] (Wo rk) documented as of this encounter Visit Diagnoses Not on filedocumented in this encounter Additional Health Concerns Assessment Noted Time PHQ-9 Depression Total Score: 5 11/25/2018 3:25 PM INTERNATIONAL TRADE TEACHER documented as of this encounter Care Teams Green House Manager Relationship Specialty Start Date End Date Teresita Garcia MD PCP - General Family Practice 01/22/11 [address] [place], [place] [phone] Teresita Garcia MD Assigned PCP 11/16/16 12/28/21 [address] [place] [address] documented as of this encounter
--- OUTSIDE RECORDS SUMMARY | 2022-08-16 14:29 | XMS_ITS | Encounter Summary ---
:1960 Author Organization [place] Address [address] [facility] [place] [place] [address] Care Team Providers Name Role Phone Teresita Garcia MD Primary Care Provider Teresita Garcia MD Unavailable Encounter Details Date Type Department Care Team Description 11/24/2019 Medical Correspondence [facility] [place] Scan, ORDER SUMMARY Health Info Mgmt Non-Provider [facility] HEALTH/HOSPICE [address] [place] [phone] Social History Tobacco Use Types Packs/Day [...] do you attend zoroastrian or Not asked buddhism services? Do you [...] Virtual Visit [place] [address] [place] [address] (Wo rk) documented as of this encounter Visit Diagnoses Not on filedocumented in this encounter Additional Health Concerns Assessment Noted Time PHQ-9 Depression Total Score: 5 11/25/2018 3:25 PM PAN SHOVER documented as of this encounter Care Teams In Flight Refueling Operator Relationship Specialty Start Date End Date Teresita Garcia MD PCP - General Family Practice 01/22/11 [address] [place] [address] Teresita Garcia MD Assigned PCP 11/16/16 12/28/21 [address] [place] [address] documented as of this encounter
--- OUTSIDE RECORDS SUMMARY | 2022-08-16 14:29 | XMS_ITS | Encounter Summary ---
:1960 Author Organization [place] Address [address] [place] [address] Care Team Providers Name Role Phone Teresita Garcia MD Primary Care Provider Teresita Garcia MD Unavailable Reason for Visit Reason Onset Date Comments Orders 12/01/2019 [facility] Encounter Details Date Type Department Care Team Description 12/01/2019 Telephone [facility] Teresita Garcia MD Orders ([facility] [address]) [address] [place] [phone] Social History Tobacco Use Types Packs/Day [...] or relatives? How often do you attend confucianism or Not asked jewish services? Do you belong to any clubs or Not asked organizations such as confucianism groups, unions, fraternal or athletic groups, or [...] this encounter Miscellaneous Notes Telephone Encounter - CameronMalena lockett - 12/02/2019 8:23 AM CST Signed forms faxed. Malena Hankins Flight Surveyor CIATE STORE LEADER Telephone Encounter - Nhi Malena - 12/01/2019 3:46 PM CST Recd 8 page fax from [employer]. Please sign [employer] Orders and fax to [phone]. Form in AA folder at [facility]. Malena Hankins Flight Surveyor CIATE STORE LEADER documented in this encounter Plan of Treatment Upcoming Encounters Date Type Specialty Care Team Description 08/18/2022 Virtual Visit [place] [address] [place], [place] [phone] (Wo rk) documented as of this encounter Visit Diagnoses Not on filedocumented in this encounter Additional Health Concerns Assessment Noted Time PHQ-9 Depression Total Score: 5 11/25/2018 3:25 PM ASSOCIATE STORE LEADER documented as of this encounter Care Teams Cue Worker Relationship Specialty Start Date End Date Teresita Garcia MD PCP - General Family Practice 01/22/11 [address] [place] [address] Teresita Garcia MD Assigned PCP 11/16/16 12/28/21 [address] [place] [address] documented as of this encounter
--- OUTSIDE RECORDS SUMMARY | 2022-08-16 14:29 | XMS_ITS | Encounter Summary ---
:1960 Author Organization [place] Address [address] [facility] [address] Care Team Providers Name Role Phone Teresita Garcia MD Primary Care Provider Teresita Garcia MD Unavailable Teresita Garcia MD Unavailable Encounter Details Date Type Department Care Team Description 11/25/2018 Travel Social History Tobacco Use Types Packs/Day [...] or relatives? How often do you attend religion or Not asked alevism services? Do you belong to any clubs or Not asked organizations such as religion groups, unions, fraternal or athletic groups, or [...] Virtual Visit [place] [address] [place], [place] [phone] (Wo rk) documented as of this encounter Visit Diagnoses Not on filedocumented in this encounter Additional Health Concerns Assessment Noted Time PHQ-9 Depression Total Score: 5 11/25/2018 3:25 PM PHOTO RETOUCHER documented as of this encounter Care Teams Appellate Court Clerk Relationship Specialty Start Date End Date Teresita Garcia MD PCP - General Family Practice 01/22/11 [address] [place], [place] [phone] Teresita Garcia MD PCP - Assigned PCP 11/16/16 11/30/18 [address] [place], [place] [phone] Teresita Garcia MD Assigned PCP 11/16/16 12/28/21 [address] [place], [place] [phone] documented as of this encounter
--- OUTSIDE RECORDS SUMMARY | 2022-08-16 14:29 | XMS_ITS | Encounter Summary ---
:1960 Author Organization [place] Address [address] [facility] [place] [address] Care Team Providers Name Role Phone Teresita Garcia MD Primary Care Provider Teresita Garcia MD Unavailable Reason for Visit Reason Comments Hospital F/U Encounter Details Date Type Department Care Team Description 12/02/2019 Office Visit [facility] Teresita Garcia MD Urinary tract Clinic [place] [id number] [place] [address] infection associated [address] [place], [place] [address] urethral catheter, [phone] subsequent encounter (Primary Dx) Social History Tobacco Use Types Packs/Day Years [...] do you attend lutheran or Not asked hinduism services? Do you [...] PM CDT documented as of this encounter Last Filed Vital Signs Vital Sign Reading Time Taken Comments Blood Pressure 121/78 12/02/2019 1:07 PM SPECIAL DAY CLASS TEACHER Pulse 98 12/02/2019 1:07 PM SPECIAL DAY CLASS TEACHER Temperature 36.6 ??C (97.8 ??F) 12/02/2019 1:07 PM SPECIAL DAY CLASS TEACHER Respiratory Rate 16 12/02/2019 1:07 PM SPECIAL DAY CLASS TEACHER Oxygen Saturation 99% 12/02/2019 1:07 PM SPECIAL DAY CLASS TEACHER Inhaled Oxygen Concentration - - Weight 79.4 kg (175 lb) 12/02/2019 1:07 PM SPECIAL DAY CLASS TEACHER Height - - Body Mass Index 27 11/25/2018 3:16 PM SPECIAL DAY CLASS TEACHER documented in this encounter Progress Notes Teresita Garcia MD - 12/02/2019 1:00 PM CST Subjective Dejuan Rodriguez is a 58 year old male who presents to clinic today for the following health issues: [facility] Hospital Follow-up Visit: Hospital/Prison/ Rehab Facility: [facility] Date of Admission: 11/24/2019 Date of Discharge: 11/29/2019 Reason(s) for Admission: UTI Problems taking medications regularly: None Medication changes since discharge: Doxycycline and changed Gabapentin Problems adhering to non-medication therapy: None Summary of hospitalization: [facility] discharge summary reviewed Diagnostic Tests/Treatments reviewed. Follow up needed: with Neurology and Urology. Other Healthcare Providers Involved in Patient???s Care: [employer] has been helping him during the day. Update since discharge: improved. Still feeling weak in general. Pt said that he has been having hard time with catheterizing himself, and he is requesting to do permanent rivera cath. Pt is following up with Facundo luque, he has home health who came over to help out, given his advanced MS. Post Discharge Medication Reconciliation: discharge medications reconciled, continue medications without change. Plan of care communicated with patient Coding guidelines for this visit: Type of Medical Decision Making Zztr-bt-Diyp Visit within 7 Days of discharge Rfmf-ib-Xtrt Visit within 14 days of discharge Moderate Complexity [id number] High Complexity [id number] Patient Active Problem List Diagnosis ??? MS (multiple sclerosis) (H) ??? CARDIOVASCULAR SCREENING; LDL GOAL LESS THAN 160 ??? Cannabis abuse ??? Baclofen pump failure ??? Spasticity ??? Seborrheic dermatitis of scalp ??? Status post hip replacement ??? Tnto-Zspiq-Ezzbkdl disease ??? Atopic rhinitis ??? Major depressive disorder, single episode, mild (H) ??? Osteoporosis ??? Venous stasis ??? Bladder spasm ??? Family history of ischemic heart disease ??? Neurogenic bladder ??? Neurogenic bowel ??? Organic sleep disorder ??? Pseudomeningocele, acquired ??? Retention of urine ??? Spastic paraplegia ??? Urinary tract infection, site not specified Past Surgical History: Procedure Laterality Date ??? C TOTAL HIP ARTHROPLASTY Hip Replacement, Total x2 due to Legg Perthes ??? COLONOSCOPY 06/01/2013 Procedure: COLONOSCOPY; Colonoscopy; Surgeon: Jacob Simmons MD; Location: [facility] Social History Tobacco Use ??? Smoking status: Never Smoker ??? Smokeless tobacco: Never Used Substance Use Topics ??? Alcohol use: Not Currently Alcohol/week: 0.0 standard drinks Frequency: Never Comment: socially Family History Problem Relation Age of Onset ??? Neurologic Disorder Mother Had MS in 1970 at age 30 ??? C.A.D. Father Triple bypass Current Outpatient Medications Medication Sig Dispense Refill ??? baclofen (LIORESAL) 10 MG tablet Take 1 tablet by mouth every 6 hours as needed For acute withdrawal ??? gabapentin (NEURONTIN) 400 MG capsule Take 400 mg by mouth 3 times daily And pt takes 600 mg at night time. ??? gabapentin (NEURONTIN) 600 MG tablet Take 600 mg by mouth At Bedtime ??? alendronate (FOSAMAX) 70 MG tablet TAKE 1 TAB BY MOUTH ONCE WEEKLY 60MINS BEFORE MORNING MEAL W/8OZ GLASS OF WATER. STAY UPRIGHT X30MIN 12 tablet 1 ??? Calcium Carb-Cholecalciferol (CALCIUM + D3) 600-800 MG-UNIT TABS Take 1 tablet by mouth 2 times daily ??? carbamide peroxide (DEBROX) 6.5 % otic solution Place 5-10 drops into both ears 2 times daily 30mL 3 ??? Docusate Sodium (COLACE PO) ??? ketoconazole (NIZORAL) 2 % external shampoo Apply 1 mL topically twice a week ??? Multiple Vitamins-Minerals (CENTRUM SILVER PO) ??? ocrelizumab (OCREVUS) 300 MG/10ML SOLN injection Inject into the vein once ??? polyethylene glycol (MIRALAX) powder Take 17 g by mouth daily as needed ??? pramipexole (MIRAPEX) 0.125 MG tablet Take by mouth 3 times daily. ??? tadalafil (CIALIS) 20 MG tablet Take 20 mg by mouth daily as needed Allergies Allergen Reactions ??? Dilaudid [Hydromorphone] Nausea and Vomiting ??? Pollen Extract Reviewed and updated as needed this visit by Provider Review of Systems ROS COMP: CONSTITUTIONAL: fatigue. INTEGUMENTARY/SKIN: dry red patch on the nose. RESP: NEGATIVE for significant cough or SOB CV: NEGATIVE for chest pain, palpitations or peripheral edema Objective BP 121/78 (BP Location: Right arm, Patient Position: Sitting, Cuff Size: Adult Regular) Pulse 98 Temp 97.8 ??F (36.6 ??C) (Oral) Resp 16 Wt 79.4 kg (175 lb) SpO2 99% BMI 27.00 kg/m?? Body mass index is 27 kg/m??. Physical Exam GENERAL: healthy, alert and no distress NECK: no adenopathy, no asymmetry, masses, or scars and thyroid normal to palpation RESP: lungs clear to auscultation - no rales, rhonchi or wheezes CV: regular rate and rhythm, normal S1 S2, no S3 or S4, no murmur, click or rub, no peripheral edemaand peripheral pulses strong ABDOMEN: soft, nontender, no hepatosplenomegaly, no masses and bowel sounds normal SKIN: rash, red macules on the nose with flakes. Neuro: wheel chair bound, bend over in the thoracic and neck area. Weakness in both arms, Rt more than LEt. Assessment & Plan 1. Urinary tract infection associated with indwelling urethral catheter, subsequent encounter Much improved, pt is still feeling tired, mostly related to his resolving sepsis. Urine is clear, no signs of UTI, Follow up with URology (appointment made today) to discuss indwelling cath vs. Suprapubic cath. Return in about 6 months (around 06/03/2020). Teresita Garcia MD [facility] IAL DAY CLASS TEACHER documented in this encounter Plan of Treatment Upcoming Encounters Date Type Specialty Care Team Description 08/18/2022 Virtual Visit [place] [address] [place], [place] [phone] (Wo rk) documented as of this encounter Visit Diagnoses Diagnosis Urinary tract infection associated with indwelling urethral catheter, subsequent encounter - Primary documented in this encounter Additional Health Concerns Assessment Noted Time PHQ-9 Depression Total Score: 8 12/02/2019 2:02 PM SPECIAL DAY CLASS TEACHER documented as of this encounter Care Teams Laboratory Geneticist Relationship Specialty Start Date End Date Teresita Garcia MD PCP - General Family Practice 01/22/11 [address] [place] [address] Teresita Garcia MD Assigned PCP 11/16/16 12/28/21 [address] [place] [address] documented as of this encounter
--- OUTSIDE RECORDS SUMMARY | 2022-08-16 14:29 | XMS_ITS | Encounter Summary ---
:1960 Author Organization [place] Address [facility] [place] [address] Care Team Providers Name Role Phone Teresita Garcia MD Primary Care Provider Teresita Garcia MD Unavailable Encounter Details Date Type Department Care Team Description 11/17/2019 Telephone [facility] Roel Garcia MD [place] [address] [phone] Social History Tobacco Use Types Packs/Day Years [...] do you attend yazdanism or Not asked episcopal services? Do you belong to any clubs [...] this encounter Miscellaneous Notes Telephone Encounter - Shanda Soto - 11/17/2019 1:14 PM CST Alie from Home care called and stated that they did not have the staffing to go to pts home today. They called the pt and pt would like to start his home care on Thursday. Per Dr Garcia home care is able to delay care until Thursday. Verbal order given to Home care.-Shanda Soto, EMTB NEY SWEEPER documented in this encounter Plan of Treatment Upcoming Encounters Date Type Specialty Care Team Description 08/18/2022 Virtual Visit [place] [address] [place], [place] [phone] (Wo rk) documented as of this encounter Visit Diagnoses Not on filedocumented in this encounter Additional Health Concerns Assessment Noted Time PHQ-9 Depression Total Score: 5 11/25/2018 3:25 PM CHIMNEY SWEEPER documented as of this encounter Care Teams Drying Oven Attendant Relationship Specialty Start Date End Date Teresita Garcia MD PCP - General Family Practice 01/22/11 [address] [place] [address] Teresita Garcia MD Assigned PCP 11/16/16 12/28/21 [address] [place] [address] documented as of this encounter
--- OUTSIDE RECORDS SUMMARY | 2022-08-16 14:29 | XMS_ITS | Encounter Summary ---
:1960 Author Organization [place] Address [facility] [place] [address] Care Team Providers Name Role Phone Teresita Garcia MD Primary Care Provider Teresita Garcia MD Unavailable Reason for Visit Reason Comments Medication Refill fosamax Encounter Details Date Type Department Care Team Description 06/14/2019 Refill [facility] Roel Garcia MD Medication Refill [place] [id number] [place] [address] (fosamax) [id number] [place] [phone] Social History Tobacco Use Types Packs/Day Years [...] do you attend jewish or Not asked roman catholic services? Do you belong to any [...] this encounter Miscellaneous Notes Telephone Encounter - Bella Guzman, RN - 06/14/2019 12:39 PM CDT Routing refill request to provider for review/approval because: On Dexa on file. Bella Guzman RN, [facility] Triage Telephone Encounter - Dawn Kimble - 06/14/2019 8:35 AM CDT Last Written Prescription Date: 07/02/18 Last Fill Quantity: 12 tablet, # refills: 1 Last office visit: 03/11/2019 with prescribing provider: Jose Future Office Visit: Requested Prescriptions Pending Prescriptions Disp Refills ??? alendronate (FOSAMAX) 70 MG tablet [Pharmacy Med Name: ALENDRONATE SODIUM 70 MG TAB] 12 tablet 1 Sig: TAKE 1 TAB BY MOUTH ONCE WEEKLY 60MINS BEFORE MORNING MEAL W/8OZ GLASS OF WATER. STAY UPRIGHT X30MIN Bisphosphonates Failed - 06/14/2019 1:14 AM Failed - Dexa on file within past 2 years Please review last Dexa result. Passed - Recent (12 mo) or future (30 days) visit within the authorizing provider's specialty Patient had office visit in the last 12 months or has a visit in the next 30 days with authorizing provider or within the authorizing provider's specialty. See Patient Info tab in inbasket, or Choose Columns in Meds & Orders section of the refill encounter. Passed - Medication is active on med list Passed - Patient is age 18 or older Passed - Normal serum creatinine on file within past 12 months Recent Labs Lab Test 11/25/18 1543 CR 0.99 documented in this encounter Plan of Treatment Upcoming Encounters Date Type Specialty Care Team Description 08/18/2022 Virtual Visit [place] [address] [place] [address] (Wo rk) documented as of this encounter Visit Diagnoses Diagnosis Osteoporosis, unspecified osteoporosis t ype, unspecified pathological fracture presence documented in this encounter Additional Health Concerns Assessment Noted Time PHQ-9 Depression Total Score: 5 11/25/2018 3:25 PM AUTOMATIC FANCY MACHINE OPERATOR documented as of this encounter Care Teams Windrower Operator Relationship Specialty Start Date End Date Teresita Garcia MD PCP - General Family Practice 01/22/11 [address] [place], [place] [phone] Teresita Garcia MD Assigned PCP 11/16/16 12/28/21 [address] [place], [place] [id number] documented as of this encounter
--- OUTSIDE RECORDS SUMMARY | 2022-08-16 14:29 | XMS_ITS | Encounter Summary ---
:1960 Author Organization [place] Address [address] [facility] [place] [address] Care Team Providers Name Role Phone Teresita Garcia MD Primary Care Provider Teresita Garcia MD Unavailable Encounter Details Date Type Department Care Team Description 11/16/2019 Medical Correspondence [facility] Scan, TRANSFER SUMMARY Health Info Mgmt Non-Provider HOME [facility]ALTH CARE Sr[facility] [address] [place] [phone] Social History Tobacco Use Types Packs/Day [...] do you attend mu-ism or Not asked church services? Do you [...] Virtual Visit [place] [address] [place] [address] (Wo rk) documented as of this encounter Visit Diagnoses Not on filedocumented in this encounter Additional Health Concerns Assessment Noted Time PHQ-9 Depression Total Score: 5 11/25/2018 3:25 PM TEST ADMINISTRATOR documented as of this encounter Care Teams Forge Press Operator Relationship Specialty Start Date End Date Teresita Garcia MD PCP - General Family Practice 01/22/11 [address] [place], [place] [phone] Teresita Garcia MD Assigned PCP 11/16/16 12/28/21 [address] [place] [address] documented as of this encounter
--- OUTSIDE RECORDS SUMMARY | 2022-08-16 14:29 | XMS_ITS | Encounter Summary ---
:1960 Author Organization [place] Address [address] [facility] [place] [address] Care Team Providers Name Role Phone Teresita Garcia MD Primary Care Provider Teresita Garcia MD Unavailable Reason for Visit Reason Onset Date Comments Forms 11/25/2019 Additional Orders-Ph ysical Therapy Encounter Details Date Type Department Care Team Description 11/25/2019 Telephone [facility] Teresita Garcia MD Forms (Additional Clinic [place] [id number] [place] [address] Orders-Physical [address] [place], [place] Therapy) [place], [place] [phone] Social History Tobacco Use Types Packs/Day [...] do you attend cheondoism or Not asked anglican services? Do you [...] Notes Telephone Encounter - Rosy Brito - 11/28/2019 11:00 AM CST Form completed and faxed, 11/28/2019 ,Jackie Brito/AWILDA TRICAL PARTS RECONDITIONER Telephone Encounter - Rosy Brito - 11/25/2019 8:12 AM CST Received 2 page fax for Additional Orders-Physical Therapy for Dr Garcia to complete. Form in the in-basket at [facility] in 's folder. TRICAL PARTS RECONDITIONER documented in this encounter Plan of Treatment Upcoming Encounters Date Type Specialty Care Team Description 08/18/2022 Virtual Visit [place] [address] [place] [address] (Wo rk) documented as of this encounter Visit Diagnoses Not on filedocumented in this encounter Additional Health Concerns Assessment Noted Time PHQ-9 Depression Total Score: 5 11/25/2018 3:25 PM ELECTRICAL PARTS RECONDITIONER documented as of this encounter Care Teams Third Shift Lieutenant Relationship Specialty Start Date End Date Teresita Garcia MD PCP - General Family Practice 01/22/11 [address] [place] [address] Teresita Garcia MD Assigned PCP 11/16/16 12/28/21 [address] [place] [address] documented as of this encounter
--- OUTSIDE RECORDS SUMMARY | 2022-08-16 14:29 | XMS_ITS | Encounter Summary ---
:1960 Author Organization [place] Address [facility] [place] [address] Care Team Providers Name Role Phone Teresita Garcia MD Primary Care Provider Teresita Garcia MD Unavailable Reason for Visit Reason Onset Date Comments Orders 11/22/2019 Encounter Details Date Type Department Care Team Description 11/22/2019 Telephone [facility] Roel Garcia MD Orders [place] [id number] [place] [address] [place], [place] [phone] [place] [address] [phone] Social History Tobacco Use Types Packs/Day Years [...] or relatives? How often do you attend samaritan or Not asked baptist services? Do you belong to any clubs or Not asked organizations such as samaritan groups, unions, fraternal or athletic groups, or [...] encounter Miscellaneous Notes Telephone Encounter - Blanca Choi RN - 11/22/2019 2:00 PM CST RN placed call to [facility] received confidential voicemail Verbal orders provided for : PT 2 x week x 3 weeks for transfer training and exercise LICENSED VOCATIONAL NURSE 1 x week x 3 weeks to assist with showering OT 1 x If questions / concerns return call to clinic nurse Advised to fax for written signature from pcp Blanca Choi, Registered Nurse [facility] ' ERDAM CONSTRUCTION SUPERVISOR Telephone Encounter - Marlen Laird - 11/22/2019 11:46 AM CST Order/Referral Request: Who is requesting: Jayde pedroza [facility] Orders being requested: Admitted to home care on 11/20/2019. Requesting PT 2x's a week for 3 weeks for transfer training and therapeutic exercise. Request home health aide to assist with showering 1x a week for 3 weeks. OT evalutation 1x. Requests verbal orders, please return call When are orders needed by: as soon as possible Has this been discussed with Provider: N/A Does patient have a preference on a Group/Provider/Facility? N/A Does patient have an appointment scheduled: No Where to send Orders: Requesting verbal orders Okay to leave detailed message? Yes at [facility] phone number: [phone] Routing ERDAM CONSTRUCTION SUPERVISOR documented in this encounter Plan of Treatment Upcoming Encounters Date Type Specialty Care Team Description 08/18/2022 Virtual Visit [place] [address] [place], [place] [phone] (Wo rk) documented as of this encounter Visit Diagnoses Not on filedocumented in this encounter Additional Health Concerns Assessment Noted Time PHQ-9 Depression Total Score: 5 11/25/2018 3:25 PM COFFERDAM CONSTRUCTION SUPERVISOR documented as of this encounter Care Teams Vacuum Furnace Operator Relationship Specialty Start Date End Date Teresita Garcia MD PCP - General Family Practice 01/22/11 [address] [place] [address] Teresita Garcia MD Assigned PCP 11/16/16 12/28/21 [address] [place] [address] documented as of this encounter
--- OUTSIDE RECORDS SUMMARY | 2022-08-16 14:29 | XMS_ITS | Encounter Summary ---
:1960 Author Organization [place] Address [address] [facility] [place] [address] Care Team Providers Name Role Phone Teresita Garcia MD Primary Care Provider Teresita Garcia MD Unavailable Teresita Garcia MD Unavailable Reason for Visit Reason Comments Pre-Op Exam Encounter Details Date Type Department Care Team Description 11/25/2018 Office Visit [facility] Teresita Garcia MD Preop general physical exam (Primary Dx) ; Clinic [address] Osteoporosis without current pathologica l fracture, unspecified osteoporosis type [id number] [place] [phone] Social History Tobacco Use Types Packs/Day [...] do you attend yarsani or Not asked latter day services? Do [...] Sign Reading Time Taken Comments Blood Pressure 121/83 11/25/2018 3:16 PM ENVIRONMENTAL DESIGNER Pulse 98 11/25/2018 3:16 PM ENVIRONMENTAL DESIGNER Temperature 36.7 ??C (98.1 ??F) 11/25/2018 3:16 PM ENVIRONMENTAL DESIGNER Respiratory Rate 20 11/25/2018 3:16 PM ENVIRONMENTAL DESIGNER Oxygen Saturation 97% 11/25/2018 3:16 PM ENVIRONMENTAL DESIGNER Inhaled Oxygen Concentration - - Weight 78 kg (172 lb) 11/25/2018 3:16 PM ENVIRONMENTAL DESIGNER Height 171.5 cm (5' 7.5) 11/25/2018 3:16 PM ENVIRONMENTAL DESIGNER Body Mass Index 26.54 11/25/2018 3:16 PM ENVIRONMENTAL DESIGNER documented in this encounter Patient Instructions Patient InstructionsYumiko Camp CMA - 11/25/2018 3:00 PM CST Before Your Surgery ??? Call your surgeon if there is any change in your health. This includes signs of a cold or flu (such as a sore throat, runny nose, cough, rash or fever). ??? Do not smoke, drink alcohol or take over the counter medicine (unless your surgeon or primary care doctor tells you to) for the 24 hours before and after surgery. ??? If you take prescribed drugs: Follow your doctor???s orders about which medicines to take and which to stop until after surgery. ??? Eating and drinking prior to surgery: follow the instructions from your surgeon ??? Take a shower or bath the night before surgery. Use the soap your surgeon gave you to gently clean your skin. If you do not have soap from your surgeon, use your regular soap. Do not shave or scrubthe surgery site. Wear clean pajamas and have clean sheets on your bed. RONMENTAL DESIGNER documented in this encounter Progress Notes Teresita Garcia MD - 11/25/2018 3:00 PM CST [address] [address] Dept: [phone] PRE-OP EVALUATION: Today's date: 11/25/2018 Dejuan Rodriguez (: 1960) presents for pre-operative evaluation assessment as requested byDr. Ruiz. He requires evaluation and anesthesia risk assessment prior to undergoing surgery/procedure for treatment of bladder . Proposed Surgery/ Procedure: remove bladder stone Date of Surgery/ Procedure: 12/02/18 Time of Surgery/ Procedure: 11:30 Hospital/Surgical Facility: [facility] Primary Physician: Teresita Garcia Type of Anesthesia Anticipated: General Patient has a Health Care Directive or Living Will: NO 1. NO - Do you have a history of heart attack, stroke, stent, bypass or surgery on an artery in the head, neck, heart or legs? 2. NO - Do you ever have any pain or discomfort in your chest? 3. NO - Do you have a history of Heart Failure? 4. NO - Are you troubled by shortness of breath when: walking on the level, up a slight hill or at night? 5. NO - Do you currently have a cold, bronchitis or other respiratory infection? 6. NO - Do you have a cough, shortness of breath or wheezing? 7. NO - Do you sometimes get pains in the calves of your legs when you walk? 8. NO - Do you or anyone in your family have previous history of blood clots? 9. NO - Do you or does anyone in your family have a serious bleeding problem such as prolonged bleeding following surgeries or cuts? 10. NO - Have you ever had problems with anemia or been told to take iron pills? 11. NO - Have you had any abnormal blood loss such as black, tarry or bloody stools, or abnormal vaginal bleeding? 12. YES - Have you ever had a blood transfusion? 13. NO - Have you or any of your relatives ever had problems with anesthesia? 14. NO - Do you have sleep apnea, excessive snoring or daytime drowsiness? 15. No - Do you have any prosthetic heart valves? 16. Yes- Do you have prosthetic joints? Hip joints 17. NO - Is there any chance that you may be ? HPI: HPI related to upcoming procedure: bladder procedure to remove a stone from the bladder. See problem list for active medical problems. Problems all longstanding and stable, except as noted/documented. See ROS for pertinent symptoms related to these conditions. . MEDICAL HISTORY: Patient Active Problem List Diagnosis Date Noted ??? Venous stasis 11/24/2017 Priority: Medium ??? Osteoporosis 01/20/2017 Priority: Medium In the spine. ??? Major depressive disorder, single episode, mild (H) 10/17/2016 Priority: Medium ??? Status post hip replacement 05/14/2011 Priority: Medium Bilateral (Problem list name updated by automated process. Provider to review and confirm.) ??? Sbdl-Ufeie-Ztfcbzn disease 05/14/2011 Priority: Medium ??? Atopic rhinitis 05/14/2011 Priority: Medium (Problem list name updated by automated process. Provider to review and confirm.) ??? 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 Spasticity 03/10/2011 Priority: Medium ??? Seborrheic dermatitis of scalp 03/10/2011 Priority: Medium ??? Cannabis abuse 12/13/2010 Priority: Medium Does not smoke daily ??? CARDIOVASCULAR SCREENING; LDL GOAL LESS THAN 160 07/28/2010 Priority: Medium ??? Multiple sclerosis (H) 09/01/2005 Priority: Medium Past Medical History: Diagnosis Date ??? Juvenile osteochondrosis of hip and pelvis ??? Major depressive disorder, single episode, mild (H) 10/17/2016 ??? Multiple sclerosis (H) sees neurology at [facility] ??? Osteoporosis 01/20/2017 In the spine. ??? Other specified disorder of bladder neurogenic- Dr. Mojica ??? Venous stasis 11/24/2017 Past Surgical History: Procedure Laterality Date ??? C TOTAL HIP ARTHROPLASTY Hip Replacement, Total x2 due to Legg Perthes ??? COLONOSCOPY 06/01/2013 Procedure: COLONOSCOPY; Colonoscopy; Surgeon: Jacob Simmons MD; Location: GI Current Outpatient Medications [...] 3 ??? Docusate Sodium (COLACE PO) ??? gabapentin (NEURONTIN) 300 MG capsule Take 1 capsule (300 mg) by mouth 3 times daily 270 capsule1 ??? ketoconazole (NIZORAL) 2 % shampoo Use as directed. Need Office Visit. 120 mL 0 ??? mirabegron (MYRBETRIQ) 50 MG 24 hr tablet Take 50 mg by mouth daily ??? Multiple Vitamins-Minerals (CENTRUM SILVER PO) ??? ocrelizumab (OCREVUS) 300 MG/10ML SOLN injection Inject into the vein once ??? pramipexole (MIRAPEX) 0.125 MG tablet Take by mouth 3 times daily. OTC products: none Allergies Allergen Reactions ??? Dilaudid [Hydromorphone] Nausea and Vomiting ??? Pollen Extract Latex Allergy: NO Social History Tobacco Use ??? Smoking status: Never Smoker ??? Smokeless tobacco: Never Used Substance Use Topics ??? Alcohol use: No Alcohol/week: 0.0 oz Frequency: Never Comment: socially History Drug Use Comment: marijuana occasionally REVIEW OF SYSTEMS: CONSTITUTIONAL: NEGATIVE for fever, chills, change in weight ENT/MOUTH: NEGATIVE for ear, mouth and throat problems RESP: NEGATIVE for significant cough or SOB CV: NEGATIVE for chest pain, palpitations or peripheral edema GI: NEGATIVE for nausea, abdominal pain, heartburn, or change in bowel habits NEURO: progressive weakenss in the arms and legs. EXAM: BP 121/83 (BP Location: Right arm, Patient Position: Chair, Cuff Size: Adult Large) Pulse 98 Temp 98.1 ??F (36.7 ??C) (Oral) Resp 20 Ht 1.715 m (5' 7.5) Wt 78 kg (172 lb) SpO2 97% BMI 26.54 kg/m?? GENERAL APPEARANCE: wheel chair bound. HENT: ear canals and TM's normal and nose and mouth without ulcers or lesions RESP: lungs clear to auscultation - no rales, rhonchi or wheezes CV: regular rate and rhythm, normal S1 S2, no S3 or S4 and no murmur, click or rub ABDOMEN: soft, nontender, no HSM or masses and bowel sounds normal NEURO: mentation intact, speech normal and weakness of arms and legs, significantl in the lower extremities. DIAGNOSTICS: Labs Resulted Today: Results for orders placed or performed in visit on 11/24/17 Basic metabolic panel Result Value Ref Range Sodium 139 133 - 144 mmol/L Potassium 3.7 3.4 - 5.3 mmol/L Chloride 105 94 - 109 mmol/L Carbon Dioxide 31 20 - 32 mmol/L Anion Gap 3 3 - 14 mmol/L Glucose 95 70 - 99 mg/dL Urea Nitrogen 15 7 - 30 mg/dL Creatinine 0.96 0.66 - 1.25 mg/dL GFR Estimate 81 >60 mL/min/1.7m2 GFR Estimate If Black >90 >60 mL/min/1.7m2 Calcium 9.2 8.5 - 10.1 mg/dL N terminal pro BNP outpatient Result Value Ref Range N-Terminal Pro Bnp 40 0 - 125 pg/mL CBC with platelets Result Value Ref Range WBC 8.6 4.0 - 11.0 10e9/L RBC Count 4.75 4.4 - 5.9 10e12/L Hemoglobin 14.6 13.3 - 17.7 g/dL Hematocrit 43.1 40.0 - 53.0 % MCV 91 78 - 100 fl MCH 30.7 26.5 - 33.0 pg MCHC 33.9 31.5 - 36.5 g/dL RDW 12.7 10.0 - 15.0 % Platelet Count 168 150 - 450 10e9/L Hepatic panel Result Value Ref Range Bilirubin Direct 0.1 0.0 - 0.2 mg/dL Bilirubin Total 0.7 0.2 - 1.3 mg/dL Albumin 3.6 3.4 - 5.0 g/dL Protein Total 6.6 (L) 6.8 - 8.8 g/dL Alkaline Phosphatase 58 40 - 150 U/L ALT 27 0 - 70 U/L AST 24 0 - 45 U/L Labs Drawn and in Process: Unresulted Labs Ordered in the Past 30 Days of this Admission Date and Time Order Name Status Description 11/25/2018 1539 CREATININE In process 11/25/2018 1538 VITAMIN D DEFICIENCY SCREENING In process Recent Labs Lab Test 11/24/17 1145 04/19/13 1152 HGB 14.6 15.0 PLT 168 175 NA 139 144 POTASSIUM 3.7 4.1 CR 0.96 1.09 IMPRESSION: Reason for surgery/procedure: cystoscopy and stone lithotripsy Diagnosis/reason for consult: pre op The proposed surgical procedure is considered LOW risk. REVISED CARDIAC RISK INDEX The patient has the following serious cardiovascular risks for perioperative complications such as (AL, PE, VFib and 3?? AV Block): No serious cardiac risks INTERPRETATION: 0 risks: Class I (very low risk - 0.4% complication rate) The patient has the following additional risks for perioperative complications: No identified additional risks ICD-10-CM 1. Preop general physical exam Z01.818 RECOMMENDATIONS: --Patient is to take all scheduled medications on the day of surgery EXCEPT for modifications listedbelow. All supplements, fosamax, and calcium/vit D APPROVAL GIVEN to proceed with proposed procedure, without further diagnostic evaluation Signed Electronically by: Teresita Garcia MD Copy of this evaluation report is provided to requesting physician. [facility] Preop Guidelines Revised Cardiac Risk Index RONMENTAL DESIGNER documented in this encounter Plan of Treatment Upcoming Encounters Date Type Specialty Care Team Description 08/18/2022 Virtual Visit [place] [address] [place] [address] (Wo rk) documented as of this encounter Procedures Procedure Name Priority Date/Time Associated Diagnosis Comme nts VITAMIN D Routine 11/25/2018 3:43 PM Osteoporosis without R esults for this DEFICIENCY ENVIRONMENTAL DESIGNER current pathological procedu re are in SCREENING fracture, unspecified the re sults osteoporosis type section. CREATININE Routine 11/25/2018 3:43 PM Preop general Results for this ENVIRONMENTAL DESIGNER physical exam procedure are in the results section. documented in this encounter Results Creatinine (11/25/2018 3:43 PM ENVIRONMENTAL DESIGNER) athologist Signature Creatinine 0.99 0.66 - 11/26/2018 [facility] 1.25 mg/dL 1:[address] [facility] GFR Estimate 84 >60 11/26/2018 [facility] mL/min/{1. 1:15 PM [facility] 73_m2} [place] Comment: Non GFR Calc Starting 09/14/2018, serum creatinine ba sed estimated GFR (eGFR) will be calculated using the Chronic Kidney Dise [facility] Epidemiology Collaboration (CKD-EPI) equation. GFR Estimate If >90 >60 mL/min/{1.73_m2} 11/26/2018 1: 15 PM [facility] Comment: GFR Calc Starting 09/14/2018, serum creatinine ba sed estimated GFR (eGFR) will be calculated using the Chronic Kidney Dise [facility] Epidemiology Collaboration (CKD-EPI) equation. Specimen Anatomical Collection Method Collection Time Receive d Time (Source) Location / / Volume Laterality Blood specimen 11/25/2018 3:43 PM 019 3:44 (specimen) ENVIRONMENTAL DESIGNER PM ENVIRONMENTAL DESIGNER Teresita Garcia MD LAB - BLOOD ORDERABLES Performing Organization Address City/State/ZIP Code Phon e Number [facility] [address] [place] [address] Vitamin D Deficiency (11/25/2018 3:43 PM ENVIRONMENTAL DESIGNER) athologist Signature Vitamin D 58 20 - 75 11/26/2018 [facility] ug/L 4:38 PM [facility] Comment: Season, race, dietary intake, and treatm ent affect the concentration of 92-amyvxml-Qecpqcz D. Values may decreas e during winter months and increase during summer months. Values 20-29 ug/L may indicate Vitamin D insufficiency and values <20 ug/L may indicate Vitamin D deficiency. Vitamin D determination is routinely per formed by an immunoassay specific for 25 hydroxyvitamin D3. ??If an individual is on vitamin D2 (ergocalciferol) supplementation, please specify 25 OH vi tamin D2 and D3 level determination by LCMSMS test VITD23. Specimen Anatomical Collection Method Collection Time Receive d Time (Source) Location / / Volume Laterality Blood specimen 11/25/2018 3:43 PM 019 3:44 (specimen) ENVIRONMENTAL DESIGNER PM ENVIRONMENTAL DESIGNER Teresita Garcia MD LAB - BLOOD ORDERABLES Performing Organization Address City/State/ZIP Code Phon e Number [facility] [address] [place] [address] [facility] documented in this encounter Visit Diagnoses Diagnosis Preop general physical exam - Primary Other specified pre-operative examinatio n Osteoporosis without current pathologica l fracture, unspecified osteoporosis type documented in this encounter Additional Health Concerns Assessment Noted Time PHQ-9 Depression Total Score: 5 11/25/2018 3:25 PM ENVIRONMENTAL DESIGNER documented as of this encounter Care Teams Team Lead Relationship Specialty Start Date End Date Teresita Garcia MD PCP - General Family Practice 01/22/11 [address] [place] [address] Teresita Garcia MD PCP - Assigned PCP 11/16/16 11/30/18 [address] [place] [address] Teresita Garcia MD Assigned PCP 11/16/16 12/28/21 [address] [place] [address] documented as of this encounter
--- OUTSIDE RECORDS SUMMARY | 2022-08-16 14:29 | XMS_ITS | Encounter Summary ---
:1960 Author Organization [place] Address [address] [place] [address] Care Team Providers Name Role Phone Teresita Garcia MD Primary Care Provider Teresita Garcia MD Unavailable Encounter Details Date Type Department Care Team Description 11/28/2019 Medical Correspondence Health [place] Scan, PHYSICAL THERAPY Health Info Mgmt Non-Provider ORDER [facility] [address] [facility]/[place] [address] Social History Tobacco Use Types [...] or relatives? How often do you attend nondenominational or Not asked yazdanism services? Do you belong to any clubs or Not asked organizations such as nondenominational groups, unions, fraternal or athletic groups, or [...] Virtual Visit [place] [address] [place], [place] [phone] (Wo rk) documented as of this encounter Visit Diagnoses Not on filedocumented in this encounter Additional Health Concerns Assessment Noted Time PHQ-9 Depression Total Score: 5 11/25/2018 3:25 PM COAL SAMPLER documented as of this encounter Care Teams Butadiene Converter Helper Relationship Specialty Start Date End Date Teresita Garcia MD PCP - General Family Practice 01/22/11 [address] [place] [address] Teresita Garcia MD Assigned PCP 11/16/16 12/28/21 [address] [place], [place] [phone] documented as of this encounter
--- OUTSIDE RECORDS SUMMARY | 2022-08-16 14:29 | XMS_ITS | Encounter Summary ---
:1960 Author Organization [place] Address [address] [place] [address] Care Team Providers Name Role Phone Teresita Garcia MD Primary Care Provider Teresita Garcia MD Unavailable Reason for Visit Reason Onset Date Comments Forms 11/29/2019 Physician Order Encounter Details Date Type Department Care Team Description 11/29/2019 Telephone [facility] Teresita Garcia MD Forms (Physician Order) Clinic [id number] [place] [phone] Social History Tobacco Use Types Packs/Day [...] do you attend yarsanism or Not asked zoroastrianism services? Do you [...] Notes Telephone Encounter - Rosy Brito - 11/30/2019 4:02 PM CST Form faxed, 11/30/2019 Jackie Brito/AWILDA T OFFICER Telephone Encounter - Rosy Brito - 11/29/2019 11:08 AM CST Received 2 page fax for Physician Order for Dr Garcia to complete. Form in the in- basket at [facility] in AA's folder. T OFFICER documented in this encounter Plan of Treatment Upcoming Encounters Date Type Specialty Care Team Description 08/18/2022 Virtual Visit [place] [address] [place], [place] [phone] (Wo rk) documented as of this encounter Visit Diagnoses Not on filedocumented in this encounter Additional Health Concerns Assessment Noted Time PHQ-9 Depression Total Score: 5 11/25/2018 3:25 PM TRUST OFFICER documented as of this encounter Care Teams Diploma Medical Assistant Relationship Specialty Start Date End Date Teresita Garcia MD PCP - General Family Practice 01/22/11 [address] [place] [address] Teresita Garcia MD Assigned PCP 11/16/16 12/28/21 [address] [place] [address] documented as of this encounter
--- OUTSIDE RECORDS SUMMARY | 2022-08-16 14:29 | XMS_ITS | Encounter Summary ---
:1960 Author Organization [place] Address [address] [place] [address] Care Team Providers Name Role Phone Teresita Garcia MD Primary Care Provider Teresita Garcia MD Unavailable Reason for Visit Reason Comments Consult osteoporosis treatment Encounter Details Date Type Department Care Team Description 03/11/2019 Office Visit [facility] Teresita Garcia MD Seborrheic keratoses (Primary Dx); Clinic [address] Seborrheic dermatitis of scalp; [id number] [place] [address] Osteoporosis without current pathological fracture, unspecified osteoporosis type [place], [place] [phone] Social History Tobacco Use Types Packs/Day [...] do you attend quaker or Not asked hindu services? Do you belong to any clubs [...] Sign Reading Time Taken Comments Blood Pressure 125/82 03/11/2019 1:30 PM CDT Pulse 88 03/11/2019 1:30 PM CDT Temperature 36.7 ??C (98 ??F) 03/11/2019 1:30 PM CDT Respiratory Rate 20 03/11/2019 1:30 PM CDT Oxygen Saturation 98% 03/11/2019 1:30 PM CDT Inhaled Oxygen Concentration - - Weight - - Height - - Body Mass Index - - documented in this encounter Progress Notes Teresita Garcia MD - 03/11/2019 1:40 PM CDT Subjective Dejuan Rodriguez is a 58 year old male who presents to clinic today for the following health issues: HPI Concern - consult ?? Description: Osteoporosis treatment Pt is on high dose calcium and vit D in regads for treatment for Osteoporosis, along with fosamax, meanwhile, he did have hx of bladder stones (mainly composed of calcium and magnesium) Also pt does have a lesion on the Lt shoulder area, that has been there for many years, and he scratches it so it will go away, then it will come back. Denies any change in size or bleeding. Patient Active Problem List Diagnosis ??? MS (multiple sclerosis) (H) ??? CARDIOVASCULAR SCREENING; LDL GOAL LESS THAN 160 ??? Cannabis abuse ??? Baclofen pump failure ??? Spasticity ??? Seborrheic dermatitis of scalp ??? Status post hip replacement ??? Fkws-Aimyu-Dtskkqq disease ??? Atopic rhinitis ??? Major depressive [...] Colonoscopy; Surgeon: Jacob Simmons MD; Location: GI Social History Tobacco Use ??? Smoking status: Never Smoker ??? Smokeless tobacco: Never Used Substance Use Topics ??? Alcohol use: No Alcohol/week: 0.0 oz Frequency: Never Comment: socially Family History Problem Relation Age of Onset ??? Neurologic Disorder Mother Had MS in 1970 at age 30 ??? C.A.D. Father Triple bypass Current Outpatient Medications Medication Sig Dispense Refill ??? ketoconazole (NIZORAL) 2 % external shampoo Use as directed once weekly. 120 mL 11 ??? alendronate (FOSAMAX) 70 MG tablet TAKE [...] mouth 3 times daily 270 capsule1 ??? Multiple Vitamins-Minerals (CENTRUM SILVER PO) ??? ocrelizumab (OCREVUS) 300 MG/10ML SOLN injection Inject into the vein once ??? pramipexole (MIRAPEX) 0.125 MG tablet Take by mouth 3 times daily. Allergies Allergen Reactions ??? Dilaudid [Hydromorphone] Nausea and Vomiting ??? Pollen Extract Reviewed and updated as needed this visit by Provider Review of Systems ROS COMP: CONSTITUTIONAL: NEGATIVE for fever, chills, change in weight CV: NEGATIVE for chest pain, palpitations or peripheral edema Objective BP 125/82 (BP Location: Right arm, Patient Position: Chair, Cuff Size: Adult Large) Pulse 88 Temp 98 ??F (36.7 ??C) (Oral) Resp 20 SpO2 98% There is no height or weight on file to calculate BMI. Physical Exam GENERAL: healthy, alert and no distress SKIN: light brown rough elonaged 1 cm papule on the Lt shoulder. Assessment & Plan 1. Seborrheic dermatitis of scalp Refill given - ketoconazole (NIZORAL) 2 % external shampoo; Use as directed once weekly. Dispense: 120 mL; Refill: 11 2. Seborrheic keratoses Watchful monitoring for any changes 3. Osteoporosis without current pathological fracture, unspecified osteoporosis type I recommend to continue on Calcium with Vit D, explained the reason for bladder stones is mostly related to self cath. Pt agreed, will restart on Jorge/vitD twice daily. BMI: Estimated body mass index is 26.54 kg/m?? as calculated from the following: Height as of 11/25/18: 1.715 m (5' 7.5). Weight as of 11/25/18: 78 kg (172 lb). Weight management plan: Discussed healthy diet and exercise guidelines Return in about 6 months (around 09/10/2019). Teresita Garcia MD [facility] documented in this encounter Plan of Treatment Upcoming Encounters Date Type Specialty Care Team Description 08/18/2022 Virtual Visit [place] [address] [place], [place] [phone] (Wo rk) documented as of this encounter Visit Diagnoses Diagnosis Seborrheic keratoses - Primary Seborrheic dermatitis of scalp Other seborrheic dermatitis Osteoporosis without current pathologica l fracture, unspecified osteoporosis type documented in this encounter Additional Health Concerns Assessment Noted Time PHQ-9 Depression Total Score: 5 11/25/2018 3:25 PM HOROLOGIST APPRENTICE documented as of this encounter Care Teams Shipping Services Sales Representative Relationship Specialty Start Date End Date Teresita Garcia MD PCP - General Family Practice 01/22/11 [address] [place] [address] Teresita Garcia MD Assigned PCP 11/16/16 12/28/21 [address] [place], [place] [phone] documented as of this encounter
--- OUTSIDE RECORDS SUMMARY | 2022-08-16 14:29 | XMS_ITS | Encounter Summary ---
:1960 Author Organization [place] Address [address] [facility] [place] [address] Care Team Providers Name Role Phone Teresita Garcia MD Primary Care Provider Teresita Garcia MD Unavailable Encounter Details Date Type Department Care Team Description 03/11/2019 Travel Social History Tobacco Use Types Packs/Day [...] or relatives? How often do you attend buddhism or Not asked restorationist services? Do you belong to any clubs or Not asked organizations such as buddhism groups, unions, fraternal or athletic groups, or [...] Virtual Visit [place] [address] [place] [address] (Wo rk) documented as of this encounter Visit Diagnoses Not on filedocumented in this encounter Additional Health Concerns Assessment Noted Time PHQ-9 Depression Total Score: 5 11/25/2018 3:25 PM RESTAURANT MANAGEMENT INTERNSHIP documented as of this encounter Care Teams Commercial Technician Relationship Specialty Start Date End Date Teresita Garcia MD PCP - General Family Practice 01/22/11 [address] [place] [address] Teresita Garcia MD Assigned PCP 11/16/16 12/28/21 [address] [place] [address] documented as of this encounter
--- OUTSIDE RECORDS SUMMARY | 2022-08-16 14:29 | XMS_ITS | Encounter Summary ---
:1960 Author Organization [place] Address [address] [place] [address] Care Team Providers Name Role Phone Teresita Garcia MD Primary Care Provider Teresita Garcia MD Unavailable Reason for Visit Reason Onset Date Comments Forms 11/22/2019 Physician Order Encounter Details Date Type Department Care Team Description 11/22/2019 Telephone [facility] Teresita Garcia MD Forms (Physician Order) Clinic [id number] [place] [phone] Social History Tobacco Use Types Packs/Day [...] or relatives? How often do you attend buddhist or Not asked yazidism services? Do you belong to any clubs or Not asked organizations such as buddhist groups, unions, fraternal or athletic groups, or [...] Notes Telephone Encounter - Rosy Brito - 11/24/2019 1:23 PM CST Form Faxed, 11/24/2019 Jackie Brito/AWILDA GER LABOR RELATIONS Telephone Encounter - Rosy Brito - 11/22/2019 11:57 AM CST Received 2 page fax for Physician Order for Dr Garcia to complete. Form in the in- basket at [employer] [facility] in AA's folder. GER LABOR RELATIONS documented in this encounter Plan of Treatment Upcoming Encounters Date Type Specialty Care Team Description 08/18/2022 Virtual Visit [place] [address] [place], [place] [phone] (Wo rk) documented as of this encounter Visit Diagnoses Not on filedocumented in this encounter Additional Health Concerns Assessment Noted Time PHQ-9 Depression Total Score: 5 11/25/2018 3:25 PM MANAGER LABOR RELATIONS documented as of this encounter Care Teams Telephone Interceptor Operator Relationship Specialty Start Date End Date Teresita Garcia MD PCP - General Family Practice 01/22/11 [address] [place] [address] Teresita Garcia MD Assigned PCP 11/16/16 12/28/21 [address] [place] [address] documented as of this encounter
--- OUTSIDE RECORDS SUMMARY | 2022-08-16 14:29 | XMS_ITS | Encounter Summary ---
:1960 Author Organization [place] Address [address] [facility] [place] [address] Care Team Providers Name Role Phone Teresita Garcia MD Primary Care Provider Teresita Garcia MD Unavailable Reason for Visit Reason Onset Date Comments Forms 11/30/2019 Durable Medical Equi pment Encounter Details Date Type Department Care Team Description 11/30/2019 Telephone [facility] Teresita Garcia MD Forms ([facility] [place] [address] Equipment) [address] [place], [place] [phone] Social History Tobacco Use Types Packs/Day [...] do you attend denominational or Not asked presybeterian services? Do you [...] PM CST Form faxed, 11/30/2019 Jackie Brito/AWILDA CTOR OF GRANTS Telephone Encounter - Rosy Brito - 11/30/2019 9:23 AM CST Received 2 page fax for Durable Medical Equipment for Dr Garcia to complete. Form in the in-basket at [employer] [facility] in 's folder. CTOR OF GRANTS documented in this encounter Plan of Treatment Upcoming Encounters Date Type Specialty Care Team Description 08/18/2022 Virtual Visit [place] [address] [place], [place] [phone] (Wo rk) documented as of this encounter Visit Diagnoses Not on filedocumented in this encounter Additional Health Concerns Assessment Noted Time PHQ-9 Depression Total Score: 5 11/25/2018 3:25 PM DIRECTOR OF GRANTS documented as of this encounter Care Teams Grain Elevator Superintendent Relationship Specialty Start Date End Date Teresita Garcia MD PCP - General Family Practice 01/22/11 [address] [place] [address] Teresita Garcia MD Assigned PCP 11/16/16 12/28/21 [address] [place] [address] documented as of this encounter
--- OUTSIDE RECORDS SUMMARY | 2022-08-16 14:29 | XMS_ITS | Encounter Summary ---
:1960 Author Organization [place] Address [address] [facility] [place] [address] Care Team Providers Name Role Phone Teresita Garcia MD Primary Care Provider Teresita Garcia MD Unavailable Encounter Details Date Type Department Care Team Description 11/21/2019 Medical Correspondence [facility] Scan, PLAN OF CARE Welcome Funds [facility] Non-Provider HOME HEALTH /HOSPICE [facility] [address] [place] [address] Social History Tobacco Use Types [...] do you attend adventist or Not asked hoahaoism services? Do you [...] Virtual Visit [place] [address] [place] [address] (Wo rk) documented as of this encounter Visit Diagnoses Not on filedocumented in this encounter Additional Health Concerns Assessment Noted Time PHQ-9 Depression Total Score: 5 11/25/2018 3:25 PM GASTROENTEROLOGY TECHNICIAN documented as of this encounter Care Teams Livery Car Driver Relationship Specialty Start Date End Date Teresita Garcia MD PCP - General Family Practice 01/22/11 [address] [place] [address] Teresita Garcia MD Assigned PCP 11/16/16 12/28/21 [address] [place] [address] documented as of this encounter
--- OUTSIDE RECORDS SUMMARY | 2022-08-16 14:29 | XMS_ITS | Encounter Summary ---
:1960 Author Organization [place] Address [address] [facility] [place] [address] Care Team Providers Name Role Phone Teresita Garcia MD Primary Care Provider Teresita Garcia MD Unavailable Encounter Details Date Type Department Care Team Description 02/23/2019 Travel Social History Tobacco Use Types Packs/Day [...] do you attend alevism or Not asked latter day services? Do [...] Team Description 08/18/2022 Virtual Visit [place] [address] [place] [address] (Wo rk) documented as of this encounter Visit Diagnoses Not on filedocumented in this encounter Additional Health Concerns Assessment Noted Time PHQ-9 Depression Total Score: 5 11/25/2018 3:25 PM WAITER/WAITRESS SECOND CLASS documented as of this encounter Care Teams Jetting Machine Operator Relationship Specialty Start Date End Date Teresita Garcia MD PCP - General Family Practice 01/22/11 [address] [place] [address] Teresita Garcia MD Assigned PCP 11/16/16 12/28/21 [address] [place] [address] documented as of this encounter
--- OUTSIDE RECORDS SUMMARY | 2022-08-16 14:30 | XMS_ITS | Encounter Summary ---
:1960 Author Organization [place] Address [address] [facility] [place] [address] Care Team Providers Name Role Phone Teresita Garcia MD Primary Care Provider Teresita Garcia MD Unavailable Teresita Garcia MD Unavailable Reason for Visit Reason Onset Date Comments Nurse Advice Line 06/08/2017 osteoporesis Encounter Details Date Type Department Care Team Description 06/08/2017 Telephone [facility] Teresita Garcia MD Nurse Advice Line Clinic [address] (osteoporesis) [address] [place] [phone] Social History Tobacco Use Types Packs/Day Years Used Date Smoking Tobacco: Never Smokeless Tobacco: Never Alcohol Use Standard Drinks/Week Comments No 0 (1 standard drink = 0.6 oz pure alcoho l) Alcohol Habits Answer Date Recorded How often [...] do you attend jain or Not asked yazidi services? Do you belong to any clubs [...] this encounter Miscellaneous Notes Telephone Encounter - Marta Parks RN - 06/10/2017 12:14 PM CDT Pt. Was informed. No further questions at this time. Marta Berger RN, BSN, OLINDA Guo RN Telephone Encounter - Marta Parks RN - 06/09/2017 1:46 PM CDT LM on VM to call back. Marta Berger RN, BSN, PHN Fartun Guo RN Telephone Encounter - Marta Parks RN - 06/09/2017 9:34 AM CDT Attempted to call patient. No answer. Not able to leave a message as the phone just hung up. Will try later. Marta Berger RN, BSN, NIMAN Fartun Guo RN Telephone Encounter - Teresita Garcia MD - 06/08/2017 3:55 PM CDT ifit is showing osteoporosis, then we should take Calcium with Vit D 500mg-400 units twice daily. Teresita Garcia MD [facility] [phone] Telephone Encounter - Deann Lora RN - 06/08/2017 3:40 PM CDT Pt called in again about calcium States he had dexa scan at [facility] within last or so, showed OP Wondering what dose of calcium and Vit D he should be on and if he can get rx Route to provider to review and advise KCole RN Nurse Triage Telephone Encounter - Karen Covarrubias RN - 06/08/2017 2:25 PM CDT Pt calls, discussed calcium supplements, neuro diagnosed osteoporosis, also no record of last dexa scan on file, will try and get a copy and hand carry to AA Karen Covarrubias RN, BSN Message handled by Nurse Triage. documented in this encounter Plan of Treatment Upcoming Encounters Date Type Specialty Care Team Description 08/18/2022 Virtual Visit [place] [address] [place] [address] (Wo rk) documented as of this encounter Visit Diagnoses Not on filedocumented in this encounter Additional Health Concerns Assessment Noted Time PHQ-9 Depression Total Score: 4 10/18/2016 7:15 AM GEOSPATIAL PROGRAM MANAGEMENT OFFICER documented as of this encounter Care Teams Director Post Relationship Specialty Start Date End Date Teresita Garcia MD PCP - General Family Practice 01/22/11 [address] [place] [address] Teresita Garcia MD PCP - Assigned PCP 11/16/16 11/30/18 [address] [place] [address] Teresita Garcia MD Assigned PCP 11/16/16 12/28/21 [address] [place] [address] documented as of this encounter
--- OUTSIDE RECORDS SUMMARY | 2022-08-16 14:30 | XMS_ITS | Encounter Summary ---
:1960 Author Organization [place] Address [address] [place] [address]. [place] [address] Care Team Providers Name Role Phone Teresita Garcia MD Primary Care Provider Reason for Visit Reason Comments Hospital F/U MS relapse Encounter Details Date Type Department Care Team Description 10/17/2016 Office Visit [facility] Teresita Garcia MD Major depressive disorder, single episod e, mild (H) (Primary Dx); Clinic [address] Multiple sclerosis (H); [address] [place] [address] Screening for hyperlipidemia [place], [place] [phone] Social History Tobacco Use Types Packs/Day [...] do you attend samaritan or Not asked zoroastrian services? Do you belong to any clubs [...] Sign Reading Time Taken Comments Blood Pressure 110/78 10/17/2016 11:05 AM FLASK FITTER Pulse 100 10/17/2016 11:05 AM FLASK FITTER Temperature 36.8 ??C (98.3 ??F) 10/17/2016 11:05 AM FLASK FITTER Respiratory Rate 20 10/17/2016 11:05 AM FLASK FITTER Oxygen Saturation 97% 10/17/2016 11:05 AM FLASK FITTER Inhaled Oxygen Concentration - - Weight 73.5 kg (162 lb) 10/17/2016 11:05 AM FLASK FITTER Height 171.5 cm (5' 7.5) 10/17/2016 11:05 AM FLASK FITTER Body Mass Index 25 10/17/2016 11:05 AM FLASK FITTER documented in this encounter Progress Notes Teresita Garcia MD - 10/17/2016 10:59 AM CST SUBJECTIVE: Dejuan Rodriguez is a 55 year old male who presents to clinic today for the following health issues: Hospital Follow-up Visit: Hospital/Half-Way/ Rehab Facility: [facility] Date of Admission: 09/29/16 Date of Discharge: 10/15/16 Reason(s) for Admission: MS relapse Problems taking medications regularly: None Medication changes since discharge: None Problems adhering to non-medication therapy: None Summary of hospitalization: CareEverywhere information obtained and reviewed Diagnostic Tests/Treatments reviewed. Follow up needed: with physical therapy and occupational therapy. Other Healthcare Providers Involved in Patient???s Care: None Update since discharge: improved. Still having mild weakness in the legs, with incresae in spasticity Post Discharge Medication Reconciliation: discharge medications reconciled, continue medications without change. Plan of care communicated with patient Coding guidelines for this visit: Type of Medical Decision Making Ekcm-hr-[id number] Visit within 7 Days of discharge Pqmy-yp-Nojw Visit within 14 days of discharge Moderate Complexity [id number] High Complexity [id number] Problem list and histories reviewed & adjusted, as indicated. Additional history: as documented Patient Active Problem List Diagnosis ??? Multiple sclerosis (H) ??? CARDIOVASCULAR SCREENING; LDL GOAL LESS THAN 160 ??? Cannabis abuse ??? Baclofen pump failure ??? Spasticity ??? Seborrheic dermatitis of scalp ??? Status post hip replacement ??? Ipeb-Dplpf-Knyijor disease ??? Atopic rhinitis ??? Major depressive disorder, single episode, mild (H) Past Surgical History Procedure Laterality Date ??? C total hip arthroplasty Hip Replacement, Total x2 due to Legg Perthes ??? Colonoscopy 06/01/2013 Procedure: COLONOSCOPY; Colonoscopy; Surgeon: Jacob Simmons MD; Location: GI Social History Substance Use Topics ??? Smoking status: Never Smoker ??? Smokeless tobacco: Never Used ??? Alcohol Use: No Family History Problem Relation Age of Onset ??? C.A.D. Father Triple bypass ??? Neurologic Disorder Mother Had MS in 1970 at age 30 Current Outpatient Prescriptions Medication Sig Dispense Refill ??? Multiple Vitamins-Minerals (CENTRUM SILVER PO) ??? Docusate Sodium (COLACE PO) ??? ketoconazole (NIZORAL) 2 % shampoo Use as directed. Need Office Visit. 120 mL 0 ??? triamcinolone (KENALOG) 0.1 % paste Apply to ulcer two to four times daily until the ulcer is healed 5 g 1 ??? valACYclovir (VALTREX) 1000 mg tablet Take 2 tablets (2,000 mg) by mouth 2 times daily 4 tablet 0 ??? naproxen (NAPROSYN) 500 MG tablet Take 1 tablet (500 mg) by mouth 2 times daily as needed for moderate pain 60 tablet 0 ??? traMADol (ULTRAM) 50 MG tablet Take 1 tablet (50 mg) by mouth every 6 hours as needed for moderate pain 20 tablet 0 ??? diclofenac (VOLTAREN) 1 % GEL Apply 4 grams shoulder four times daily using enclosed dosing card. 100 g 1 ??? ORDER FOR DME Equipment being ordered: sling. 1 Device 0 ??? hydrocortisone 2.5 % cream Apply topically 2 times daily 80 g 3 ??? pramipexole (MIRAPEX) 0.125 MG tablet Take by mouth 3 times daily. ??? gabapentin (NEURONTIN) 100 MG capsule Take 100 mg by mouth 3 times daily. 1 tab q am, 1 tab q noon, and 2 tabs Q HS ??? ketoprofen 10% in PLO 10% Apply 4 times daily as needed. 120 g 9 ??? Cholecalciferol (VITAMIN D) 2000 UNIT tablet Take 1 tablet by mouth daily. ??? VICODIN 5-500 MG OR TABS ONE TO TWO TABLETS EVERY 4 TO 6 HOURS NEEDED FOR PAIN ??? VIAGRA 100 MG OR TABS 1 TABLET DAILY NEEDED 30 0 Allergies Allergen Reactions ??? Dilaudid [Hydromorphone] Nausea and Vomiting ??? Pollen Extract ROS: C: NEGATIVE for fever, chills, change in weight CV: NEGATIVE for chest pain, palpitations or peripheral edema OBJECTIVE: BP 110/78 mmHg Pulse 100 Temp(Src) 98.3 ??F (36.8 ??C) (Oral) Resp 20 Ht 5' 7.5 (1.715 m) Wt 162 lb (73.483 kg) BMI 24.98 kg/m2 SpO2 97% Body mass index is 24.98 kg/(m^2). GENERAL: healthy, alert and no distress NECK: no adenopathy, no asymmetry, masses, or scars and thyroid normal to palpation RESP: lungs clear to auscultation - no rales, rhonchi or wheezes CV: regular rate and rhythm, normal S1 S2, no S3 or S4, no murmur, click or rub, no peripheral edemaand peripheral pulses strong MS: no gross musculoskeletal defects noted, no edema NEURO: sitting in wheel chair, normal exam of the upper extremities, Weakness 3/5 of the lower extremities with mild spasticity during the exam and during movement. ASSESSMENT/PLAN: 1. Multiple sclerosis (H) With exacerbation, improved significantly continue on prednisone taper down, and folow up with Neurology. 2. Major depressive disorder, single episode, mild (H) 3. Screening for hyperlipidemia Check labs. - LDL cholesterol direct - Hepatitis C Screen Reflex to HCV RNA Quant and Genotype Teresita Garcia MD [facility] K FITTER documented in this encounter Nursing Notes Yumiko Camp, LABORER SHAFT SINKING - 10/17/2016 11:08 AM CST Chief Complaint Patient presents with ??? Hospital F/U MS relapse Initial BP 110/78 mmHg Pulse 100 Temp(Src) 98.3 ??F (36.8 ??C) (Oral) Resp 20 Ht 5' 7.5 (1.715 m) Wt 162 lb (73.483 kg) BMI 24.98 kg/m2 SpO2 97% Estimated body mass index is 24.98 kg/(m^2) as calculated from the following: Height as of this encounter: 5' 7.5 (1.715 m). Weight as of this encounter: 162 lb (73.483 kg).. BP completed using cuff size regular Yumiko Camp CMA K FITTER documented in this encounter Plan of Treatment Upcoming Encounters Date Type Specialty Care Team Description 08/18/2022 Virtual Visit [place] [address] [place], [place] [phone] (Wo rk) documented as of this encounter Procedures Procedure Name Priority Date/Time Associated Diagnosis Comme nts HEPATITIS C SCREEN Routine 10/17/2016 11:36 Screening for Resu lts for this REFLEX TO HCV RNA AM FLASK FITTER hyperlipidemia procedur e are in QUANT AND GENOTYPE the resul ts section. LIPID REFLEX TO Routine 10/17/2016 11:36 Screening for Results for this DIRECT LDL PANEL AM FLASK FITTER hyperlipidemia procedure are in the results section. documented in this encounter Results Lipid panel reflex to direct LDL (10/17/2016 11:36 AM FLASK FITTER) [facility] Method Time Signature Cholesterol 144 <200 [place] mg/dL [facility] Triglycerides 112 <150 [place] mg/dL [facility] HDL Cholesterol 70 >39 mg/dL [facility] LDL Cholesterol 52 <100 [place] Calculated mg/dL [facility] Comment: Desirable: <100 mg/dl Non HDL Cholesterol 74 <130 mg/dL [facility] Specimen Anatomical Collection Method Collection Time Receive d Time (Source) Location / / Volume Laterality Blood specimen 10/17/2016 11:36 7 (specimen) AM FLASK FITTER 11:37 AM FLASK FITTER Teresita Garcia MD LAB - BLOOD ORDERABLES Performing Organization Address City/State/ZIP Code Phon e Number [facility] [address] [place] [address] Hepatitis C Screen Reflex to HCV RNA Quant and Genotype (10/17/2016 11:36 AM FLASK FITTER) Component Value Ref Test Analysis Performed At [facility] gist Range Method Time Signature Hepatitis C Nonreactive NR [facility] Assay performance character istics have not been established for [facility], [place] MEDICAL infants, and children [facility] Specimen Anatomical Collection Method Collection Time Receive d Time (Source) Location / / Volume Laterality Blood specimen 10/17/2016 11:36 7 (specimen) AM FLASK FITTER 11:37 AM FLASK FITTER Teresita Garcia MD LAB - BLOOD ORDERABLES Performing Organization Address City/State/ZIP Code Phon e Number [facility] [address] [place] [address] [place] documented in this encounter Visit Diagnoses Diagnosis Major depressive disorder, single episod e, mild (H) - Primary Major depressive disorder, single episod e, mild Multiple sclerosis (H) Multiple sclerosis Screening for hyperlipidemia Screening for lipoid disorders documented in this encounter Additional Health Concerns Assessment Noted Time PHQ-9 Depression Total Score: 4 10/18/2016 7:15 AM FLASK FITTER documented as of this encounter Care Teams Garment Supervisor Relationship Specialty Start Date End Date Teresita Garcia MD PCP - General Family Practice 01/22/11 [address] [place] [address] documented as of this encounter
--- OUTSIDE RECORDS SUMMARY | 2022-08-16 14:30 | XMS_ITS | Encounter Summary ---
:1960 Author Organization [place] Address [address] [place] [address] Care Team Providers Name Role Phone Teresita Garcia MD Primary Care Provider Reason for Visit Reason Onset Date Comments Home Care/Hospice 10/20/2016 home care assessment Encounter Details Date Type Department Care Team Description 10/20/2016 Telephone [facility] Teresita Garcia MD Home Care/Hospice (home Clinic [address] care assessment) [address] [place] [phone] Social History Tobacco Use Types Packs/Day Years [...] do you attend yarsani or Not asked yarsani services? Do you [...] Telephone Encounter - Karen Covarrubias RN - 10/20/2016 4:40 PM CST [facility] calls, completed home care assessment, pt Independent and safe in surroundings, no further home care recommended, FYI to AA Karen Covarrubias RN, BSN Message handled by Nurse Triage. TING PULLER documented in this encounter Plan of Treatment Upcoming Encounters Date Type Specialty Care Team Description 08/18/2022 Virtual Visit [place] [address] [place], [place] [phone] (Wo rk) documented as of this encounter Visit Diagnoses Not on filedocumented in this encounter Additional Health Concerns Assessment Noted Time PHQ-9 Depression Total Score: 4 10/18/2016 7:15 AM SHEETING PULLER documented as of this encounter Care Teams Freight Flow Sales Leader Relationship Specialty Start Date End Date Teresita Garcia MD PCP - General Family Practice 01/22/11 [address] [place] [address] documented as of this encounter
--- OUTSIDE RECORDS SUMMARY | 2022-08-16 14:30 | XMS_ITS | Encounter Summary ---
:1960 Author Organization [place] Address [address] [facility] [place] [address] Care Team Providers Name Role Phone Teresita Garcia MD Primary Care Provider Teresita Garcia MD Unavailable Teresita Garcia MD Unavailable Encounter Details Date Type Department Care Team Description 12/16/2016 Medical Correspondence [facility] HIM VIKA Bray [facility] Non-Provider DOCUMENTATION OF FACE Health Information TO FACE E NCOUNTER Management-CHERISE 10/17/[address] [place] [address] Social History Tobacco Use Types [...] do you attend samaritan or Not asked baptism services? Do you [...] Virtual Visit [place] [address] [place], [place] [phone] (Wo rk) documented as of this encounter Visit Diagnoses Not on filedocumented in this encounter Additional Health Concerns Assessment Noted Time PHQ-9 Depression Total Score: 4 10/18/2016 7:15 AM SALES ASSISTANT ENTERTAINMENT AND MEDIA documented as of this encounter Care Teams Bible Teacher Relationship Specialty Start Date End Date Teresita Garcia MD PCP - General Family Practice 01/22/11 [address] [place] [address] Teresita Garcia MD PCP - Assigned PCP 11/16/16 11/30/18 [address] [place] [address] Teresita Garcia MD Assigned PCP 11/16/16 12/28/21 [address] [place] [address] documented as of this encounter
--- OUTSIDE RECORDS SUMMARY | 2022-08-16 14:30 | XMS_ITS | Encounter Summary ---
:1960 Author Organization [place] Address [address] [place] [address] Care Team Providers Name Role Phone Teresita Garcia MD Primary Care Provider Reason for Visit Reason Onset Date Comments Medication Request 04/23/2016 04/24/16 dental appt - prophylactic abx Encounter Details Date Type Department Care Team Description 04/23/2016 Telephone [facility] Teresita Garcia MD Medication Request Clinic [address] (04/24/16 dental appt - [address] [place], [place] prophylactic abx) [place], [place] [phone] Social History Tobacco Use Types Packs/Day [...] do you attend jewish or Not asked adventist services? Do you [...] this encounter Miscellaneous Notes Telephone Encounter - Erinn Rush MA - 04/23/2016 10:39 AM CDT Informed patient of recommendations Telephone Encounter - Teresita Garcia MD - 04/23/2016 10:03 AM CDT To my knowledge it is not recommended to do prophylaxis anymore. Teresita Garcia MD [facility] [phone] Telephone Encounter - Hal Sierra, RN - 04/23/2016 9:28 AM CDT Pt calls. Dental appointment tomorrow April 24. Reports bilateral hip replacement about 10-15 years ago at [facility]. At that time his surgeon (now retired) recommended prophylactic antibiotic prior to dental procedures for the rest of his life. Dentist was prescribing but prefers PCP advise/prescribe. Dr. Garcia, antibiotic indicated? Pharmacy t'd up. We will call Jose with your reply. [phone] OK detailed message Hal Sierra, RN documented in this encounter Plan of Treatment Upcoming Encounters Date Type Specialty Care Team Description 08/18/2022 Virtual Visit [place] [address] [place], [place] [phone] (Wo rk) documented as of this encounter Visit Diagnoses Not on filedocumented in this encounter Care Teams Fitness Worker Relationship Specialty Start Date End Date Teresita Garcia MD PCP - General Family Practice 01/22/11 [address] [place] [address] documented as of this encounter
--- OUTSIDE RECORDS SUMMARY | 2022-08-16 14:30 | XMS_ITS | Encounter Summary ---
:1960 Author Organization [place] Address [address] [facility] [place] [address] Care Team Providers Name Role Phone Teresita Garcia MD Primary Care Provider Teresita Garcia MD Unavailable Teresita Garcia MD Unavailable Reason for Referral Care Coordination - Closed Specialty Diagnoses / Procedures Referred By Contact Refer red To Contact Diagnoses Multiple sclerosis (H) Teresita Garcia MD [facility] [address] [facility] [address] [place], [place] [address] [place] [address] Phone: Referral ID Status Reason Start Date Expiration Date Visits Requ ested Visits Authorized [id number] Closed 11/24/2017 11/24/2018 1 1 E SALVAGER Reason for Visit Reason Comments Foot Problems swelling in both feet xsever al months Encounter Details Date Type Department Care Team Description 11/24/2017 Office Visit [facility] Teresita Garcia MD Leg swelling (Primary Dx); Clinic [place] [id number] [place] [address] Venous stasis; [address] [place], [place] Multiple sclerosis ([place]) [place] [address] [phone] Social History Tobacco Use Types Packs/Day Years Used Date Smoking Tobacco: Never Smokeless Tobacco: Never Alcohol Use Standard Drinks/Week Comments Yes 0 (1 standard drink = 0.6 oz [...] do you attend uatsdin or Not asked faith services? Do you belong to any clubs or Not asked organizations such as uatsdin groups, unions, [employer]ored [employer] or athletic groups, or school groups? How [...] Sign Reading Time Taken Comments Blood Pressure 119/78 11/24/2017 11:13 AM WASTE SALVAGER Pulse 85 11/24/2017 11:13 AM WASTE SALVAGER Temperature 36.7 ??C (98 ??F) 11/24/2017 11:13 AM WASTE SALVAGER Respiratory Rate 20 11/24/2017 11:13 AM WASTE SALVAGER Oxygen Saturation 100% 11/24/2017 11:13 AM WASTE SALVAGER Inhaled Oxygen Concentration - - Weight 76.7 kg (169 lb) 11/24/2017 11:13 AM WASTE SALVAGER Height 171.5 cm (5' 7.5) 11/24/2017 11:13 AM WASTE SALVAGER Body Mass Index 26.08 11/24/2017 11:13 AM WASTE SALVAGER documented in this encounter Progress Notes Teresita Garcia MD - 11/24/2017 11:00 AM CST SUBJECTIVE: Dejuan Rodriguez is a 56 year old male who presents to clinic today for the following health issues: Concern - edema Onset: several months agao ?? Description: Swelling in both feet ?? Intensity: mild, moderate ?? Progression of Symptoms: Worsening, the swelling into the calf area. ?? Pain in the top of the foot. ?? Accompanying Signs & Symptoms: none ?? Previous history of similar problem: No. Pt is wheel chair bound at this time. He also has been having problem with urinary incontinance, as he find it hard to hold urine. Problem list and histories reviewed & adjusted, as indicated. Additional history: as documented Patient Active Problem List Diagnosis ??? Multiple sclerosis (H) ??? CARDIOVASCULAR SCREENING; LDL GOAL LESS THAN 160 ??? Cannabis abuse ??? Baclofen pump failure ??? Spasticity ??? Seborrheic dermatitis of scalp ??? Status post hip replacement ??? Kwxa-Kwmur-Msyjktt disease ??? Atopic rhinitis ??? Major depressive disorder, single episode, mild (H) ??? Osteoporosis ??? Venous stasis Past Surgical History: Procedure Laterality Date ??? C TOTAL HIP ARTHROPLASTY Hip Replacement, Total x2 due to Legg Perthes ??? COLONOSCOPY 06/01/2013 Procedure: COLONOSCOPY; Colonoscopy; Surgeon: Jacob Simmons MD; Location: GI Social History Substance Use Topics ??? Smoking status: Never Smoker ??? Smokeless tobacco: Never Used ??? Alcohol use 0.0 oz/week 0 Standard drinks or equivalent per week Comment: socially Family History Problem Relation Age of Onset ??? Neurologic Disorder Mother Had MS in 1970 at age 30 ??? C.A.D. Father Triple bypass Current Outpatient Prescriptions Medication Sig Dispense Refill ??? mirabegron (MYRBETRIQ) 50 MG 24 hr tablet Take 50 mg by mouth daily ??? Calcium Carb-Cholecalciferol (CALCIUM + D3) 600-800 MG-UNIT TABS Take 1 tablet by mouth 2 times daily ??? carbamide peroxide (DEBROX) 6.5 % otic solution Place 5-10 drops into both ears 2 times daily 30mL 3 ??? gabapentin (NEURONTIN) 300 MG capsule Take 1 capsule (300 mg) by mouth 3 times daily 270 capsule1 ??? alendronate (FOSAMAX) 70 MG tablet Take 1 tablet (70 mg) by mouth every 7 days Take 60 minutes before am meal with 8 oz. water. Remain upright for 30 minutes. 12 tablet 3 ??? Multiple Vitamins-Minerals (CENTRUM SILVER PO) ??? Docusate Sodium (COLACE PO) ??? ketoconazole (NIZORAL) 2 % shampoo Use as directed. Need Office Visit. 120 mL 0 ??? pramipexole (MIRAPEX) 0.125 MG tablet Take by mouth 3 times daily. Reviewed and updated as needed this visit by clinical staff Tobacco Allergies Meds Med Hx Surg Hx Fam Hx Soc Hx Reviewed and updated as needed this visit by Provider ROS: CONSTITUTIONAL: NEGATIVE for fever, chills, change in weight RESP: NEGATIVE for significant cough or SOB NEURO: worsening of neuro symptoms. OBJECTIVE: BP 119/78 (BP Location: Left arm, Patient Position: Chair, Cuff Size: Adult Large) Pulse 85 Temp98 ??F (36.7 ??C) (Oral) Resp 20 Ht 5' 7.5 (1.715 m) Wt 169 lb (76.7 kg) SpO2 100% BMI 26.08 kg/m2 Body mass index is 26.08 kg/(m^2). GENERAL: healthy, alert and no distress RESP: lungs clear to auscultation - no rales, rhonchi or wheezes CV: regular rate and rhythm, normal S1 S2, no S3 or S4, no murmur, click or rub,d peripheral pulses strong ABDOMEN: soft, nontender, no hepatosplenomegaly, no masses and bowel sounds normal MS: pitting edema to feet and lower calves. ASSESSMENT/PLAN: 1. Leg swelling Mostly related to venous stasis 2. Venous stasis Talked about elevating the legs, and using compression stockings (which is hard for him given his advanced MS) Also discussed options for treating with low dose diuretics, pt does not wish to do that at this time. - Basic metabolic panel - N terminal pro BNP outpatient - CBC with platelets - Hepatic panel 3. Multiple sclerosis (H) Getting worse, he has been having hard time doing ADL at home, moving from and into the chair, goingto the bathroom, cooking, cleaning, and doing laundry. I will put a referral for - CARE COORDINATION REFERRAL Teresita Garcia MD [facility] E SALVAGER documented in this encounter Plan of Treatment Upcoming Encounters Date Type Specialty Care Team Description 08/18/2022 Virtual Visit [place] [address] [place] [address] (Wo rk) documented as of this encounter Procedures Procedure Name Priority Date/Time Associated Comments Diagnosis N TERMINAL PRO BNP Routine 11/24/2017 11:45 AM Venous stasis R esults for this OUTPATIENT WASTE SALVAGER procedure are i n the results section. HEPATIC FUNCTION Routine 11/24/2017 11:45 AM Venous stasis Res ults for this PANEL WASTE SALVAGER procedure are i n the results section. BASIC METABOLIC Routine 11/24/2017 11:45 AM Venous stasis Resu lts for this PANEL WASTE SALVAGER procedure are i n the results section. CBC WITH PLATELETS Routine 11/24/2017 11:45 AM Venous stasis R esults for this WASTE SALVAGER procedure are i n the results section. documented in this encounter Results (ABNORMAL) Hepatic panel (11/24/2017 11:45 AM WASTE SALVAGER) [facility] gist Method Time Signature Bilirubin Direct 0.1 0.0 - 0.2 11/24/2017 [facility] mg/dL 5:24 PM WASTE SALVAGER [facility] Bilirubin Total 0.7 0.2 - 1.3 11/24/2017 [place] mg/dL 5:24 PM WASTE SALVAGER [facility] Albumin 3.6 3.4 - 5.0 11/24/2017 [place] g/dL 5:24 PM WASTE SALVAGER [facility] Protein Total 6.6 (L) 6.8 - 8.8 11/24/2017 [place] g/dL 5:24 PM WASTE SALVAGER [facility] Alkaline 58 40 - 150 11/24/2017 [place] Phosphatase U/L 5:25 PM [facility] ALT 27 0 - 70 11/24/2017 [place] U/L 5:24 PM [facility] AST 24 0 - 45 11/24/2017 [place] U/L 5:24 PM WASTE SALVAGER [facility] Specimen Anatomical Collection Method Collection Time Receive d Time (Source) Location / / Volume Laterality Blood specimen 11/24/2017 11:45 8 (specimen) AM WASTE SALVAGER 11:46 AM WASTE SALVAGER Teresita Garcia MD LAB - BLOOD ORDERABLES Performing Organization Address City/State/ZIP Code Phon e Number [facility] [address] [place] [address] CBC with platelets (11/24/2017 11:45 AM WASTE SALVAGER) athologist Signature WBC 8.6 4.0 - 11.0 11/24/2017 [facility] 10e9/L 12:09 PM WASTE SALVAGER [facility] RBC Count 4.75 4.4 - 5.9 11/24/2017 [place] 10e12/L 12:09 PM [facility] Hemoglobin 14.6 13.3 - 11/24/2017 [place] 17.7 g/dL 12:09 PM [facility] Hematocrit 43.1 40.0 - 11/24/2017 [place] 53.0 % 12:09 PM [facility] MCV 91 78 - 100 11/24/2017 [place] fl 12:09 PM WASTE SALVAGER [facility] MCH 30.7 26.5 - 11/24/2017 [place] 33.0 pg 12:09 PM WASTE SALVAGER [facility] MCHC 33.9 31.5 - 11/24/2017 [place] 36.5 g/dL 12:09 PM [facility] RDW 12.7 10.0 - 11/24/2017 [place] 15.0 % 12:09 PM [facility] Platelet Count 168 150 - 450 11/24/2017 [place] 10e9/L 12:09 PM [facility] Specimen Anatomical Collection Method Collection Time Receive d Time (Source) Location / / Volume Laterality Blood specimen 11/24/2017 11:45 8 (specimen) AM WASTE SALVAGER 11:46 AM WASTE SALVAGER Teresita Garcia MD LAB - BLOOD ORDERABLES Performing Organization Address City/State/ZIP Code Phon e Number [facility] [address] [place] [address] N terminal pro BNP outpatient (11/24/2017 11:45 AM WASTE SALVAGER) P athologist Signature N-Terminal Pro 40 0 - 125 11/24/2017 [place] Bnp pg/mL 6:47 PM WASTE SALVAGER [facility] Comment: Reference range shown and results flagge d as abnormal are for the outpatient, non acute settings. Establishing a basel ine value for each individual patient is useful for follow-up. Suggested inpatient cut points for confi rming diagnosis of CHF in an acute setting are: >450 pg/mL (age 18 to less than 50) >900 pg/mL (age 50 to less than 75) >1800 pg/mL (75 yrs and older) An inpatient or emergency department NT- proPBNP <300 pg/mL effectively rules out acute CHF, with 99% negative predict eliel value. Specimen Anatomical Collection Method Collection Time Receive d Time (Source) Location / / Volume Laterality Blood specimen 11/24/2017 11:45 8 (specimen) AM WASTE SALVAGER 11:46 AM WASTE SALVAGER Teresita Garcia MD LAB - BLOOD ORDERABLES Performing Organization Address City/State/ZIP Code Phon e Number [facility] [address] [place], [place] [id number] [place] [address] Basic metabolic panel (11/24/2017 11:45 AM WASTE SALVAGER) athologist Signature Sodium 139 133 - 144 11/24/2017 [facility] mmol/L 5:24 PM [facility] Potassium 3.7 3.4 - 5.3 11/24/2017 [facility] mmol/L 5:24 PM [facility] Chloride 105 94 - 109 11/24/2017 [facility] mmol/L 5:24 PM [facility] Carbon Dioxide 31 20 - 32 11/24/2017 [facility] mmol/L 5:24 PM [facility] Anion Gap 3 3 - 14 11/24/2017 [facility] mmol/L 5:24 PM [facility] Glucose 95 70 - 99 11/24/2017 [facility] mg/dL 5:24 PM [facility] Urea Nitrogen 15 7 - 30 11/24/2017 [facility] mg/dL 5:24 PM [facility] Creatinine 0.96 0.66 - 11/24/2017 [facility] 1.25 mg/dL 5:24 PM [facility] GFR Estimate 81 >60 11/24/2017 [place] mL/min/1.7 5:[address] Comment: Non GFR Calc GFR Estimate If >90 >60 mL/min/1.7m2 11/24/2017 5:24 P M [facility] Comment: GFR Calc Calcium 9.2 8.5 - 10.1 mg/dL 11/24/2017 5:24 PM [facility] Specimen Anatomical Collection Method Collection Time Receive d Time (Source) Location / / Volume Laterality Blood specimen 11/24/2017 11:45 8 (specimen) AM WASTE SALVAGER 11:46 AM WASTE SALVAGER Teresita Garcia MD LAB - BLOOD ORDERABLES Performing Organization Address City/State/ZIP Code Phon e Number [facility] [address] [place] [address] documented in this encounter Visit Diagnoses Diagnosis Leg swelling - Primary Swelling of limb Venous stasis Unspecified venous (peripheral) insuffic iency Multiple sclerosis (H) Multiple sclerosis documented in this encounter Additional Health Concerns Assessment Noted Time PHQ-9 Depression Total Score: 2 11/25/2017 8:11 AM WASTE SALVAGER documented as of this encounter Care Teams Map Compiler Relationship Specialty Start Date End Date Teresita Garcia MD PCP - General Family Practice 01/22/11 [address] [place], [place] [phone] Teresita Garcia MD PCP - Assigned PCP 11/16/16 11/30/18 [address] [place], [place] [phone] Teresita Garcia MD Assigned PCP 11/16/16 12/28/21 [address] [place], [place] [phone] documented as of this encounter
--- OUTSIDE RECORDS SUMMARY | 2022-08-16 14:30 | XMS_ITS | Encounter Summary ---
:1960 Author Organization [place] Address [address] [facility] [place] [address] Care Team Providers Name Role Phone Teresita Garcia MD Primary Care Provider Teresita Garcia MD Unavailable Teresita Garcia MD Unavailable Reason for Visit Reason Comments Ear Problem left ear plugged x1 week Encounter Details Date Type Department Care Team Description 05/08/2017 Office Visit [facility] Teresita Garcia MD Bilateral impacted Clinic [address] (Primary Dx) [id number] [place] [address] [phone] Social History Tobacco Use Types Packs/Day [...] do you attend druze or Not asked restoration services? Do you [...] Sign Reading Time Taken Comments Blood Pressure 103/71 05/08/2017 9:50 AM CDT Pulse 78 05/08/2017 9:50 AM CDT Temperature 36.8 ??C (98.3 ??F) 05/08/2017 9:50 AM CDT Respiratory Rate 20 05/08/2017 9:50 AM CDT Oxygen Saturation 99% 05/08/2017 9:50 AM CDT Inhaled Oxygen Concentration - - Weight - - Height 171.5 cm (5' 7.5) 05/08/2017 9:50 AM CDT Body Mass Index - - documented in this encounter Progress Notes Teresita Garcia MD - 05/08/2017 9:45 AM CDT SUBJECTIVE: Dejuan Rodriguez is a 56 year old male who presents to clinic today for the following health issues: Concern - pain Onset: 1 week ?? Description: Left ear plugged ?? Intensity: mild ?? Progression of Symptoms: improving ?? Accompanying Signs & Symptoms: none ?? Previous history of similar problem: none ?? Precipitating factors: Worsened by: none ?? Alleviating factors: Improved by: none Therapies Tried and outcome: tried using cloth to clean the ear. Problem list and histories reviewed & adjusted, as indicated. Additional history: as documented Patient Active Problem List Diagnosis ??? Multiple sclerosis (H) ??? CARDIOVASCULAR SCREENING; LDL GOAL LESS THAN 160 ??? Cannabis abuse ??? Baclofen pump failure ??? Spasticity ??? Seborrheic dermatitis of scalp ??? Status post hip replacement ??? Fdje-Ncfxn-Bzabqtg disease ??? Atopic rhinitis ??? Major depressive disorder, single episode, mild (H) ??? Osteoporosis Past Surgical History: Procedure Laterality Date ??? C TOTAL HIP ARTHROPLASTY Hip Replacement, Total x2 due to Legg Perthes ??? COLONOSCOPY 06/01/2013 Procedure: COLONOSCOPY; Colonoscopy; Surgeon: Jacob Simmons MD; Location: GI Social History Substance Use Topics ??? Smoking status: Never Smoker ??? Smokeless tobacco: Never Used ??? Alcohol use No Family History Problem Relation Age of Onset ??? Neurologic Disorder Mother Had MS in 1970 at age 30 ??? C.A.D. Father Triple bypass Current Outpatient Prescriptions Medication Sig Dispense Refill ??? carbamide peroxide (DEBROX) 6.5 % otic solution Place 5-10 drops into both ears 2 times daily 30mL 3 ??? Calcium Carb-Cholecalciferol (CALCIUM + D3) 600-200 MG-UNIT TABS ??? gabapentin (NEURONTIN) 300 MG capsule Take [...] updated as needed this visit by clinical staffTobacco Allergies Med Hx Surg Hx Fam Hx Soc Hx Reviewed and updated as needed this visit by Provider ROS: OBJECTIVE: BP 103/71 (BP Location: Right arm, Patient Position: Chair, Cuff Size: Adult Large) Pulse 78 Temp 98.3 ??F (36.8 ??C) (Oral) Resp 20 Ht 5' 7.5 (1.715 m) SpO2 99% There is no height or weight on file to calculate BMI. GENERAL: healthy, alert and no distress HENT: right ear: occluded with wax, left ear: occluded with wax, nose and mouth without ulcers or lesions, oropharynx clear and oral mucous membranes moist ASSESSMENT/PLAN: 1. Bilateral impacted cerumen Cleaned with lavage, will start on - carbamide peroxide (DEBROX) 6.5 % otic solution; Place 5-10 drops into both ears 2 times daily Dispense: 30 mL; Refill: 3 For future attacks. Teresita Garcia MD [facility] documented in this encounter Nursing Notes Yumiko Camp CMA - 05/08/2017 9:45 AM CDT Chief Complaint Patient presents with ??? Ear Problem left ear plugged x1 week Initial BP 103/71 (BP Location: Right arm, Patient Position: Chair, Cuff Size: Adult Large) Pulse 78 Temp 98.3 ??F (36.8 ??C) (Oral) Resp 20 Ht 5' 7.5 (1.715 m) SpO2 99% Estimated body mass index is 26.08 kg/(m^2) as calculated from the following: Height as of 01/20/17: 5' 7.5 (1.715 m). Weight as of 01/20/17: 169 lb (76.7 kg). Medication Reconciliation: complete Unable to obtain weight Yumiko Camp CMA documented in this encounter Plan of Treatment Upcoming Encounters Date Type Specialty Care Team Description 08/18/2022 Virtual Visit [place] [address] [place], [place] [phone] (Wo rk) documented as of this encounter Visit Diagnoses Diagnosis Bilateral impacted cerumen - Primary Impacted cerumen documented in this encounter Additional Health Concerns Assessment Noted Time PHQ-9 Depression Total Score: 4 10/18/2016 7:15 AM PERINATAL INSTRUCTOR documented as of this encounter Care Teams Barista Relationship Specialty Start Date End Date Teresita Garcia MD PCP - General Family Practice 01/22/11 [address] [place] [address] Teresita Garcia MD PCP - Assigned PCP 11/16/16 11/30/18 [address] [place] [address] Teresita Garcia MD Assigned PCP 11/16/16 12/28/21 [address] [place] [address] documented as of this encounter
--- OUTSIDE RECORDS SUMMARY | 2022-08-16 14:30 | XMS_ITS | Encounter Summary ---
:1960 Author Organization [place] Address [facility] [place] [address] Care Team Providers Name Role Phone Teresita Garcia MD Primary Care Provider Teresita Garcia MD Unavailable Teresita Garcia MD Unavailable Reason for Visit Reason Comments Clinic Care Coordination - Initial ccsw Encounter Details Date Type Department Care Team Description 11/25/2017 Care Coordination [facility] Teresita Garcia MD Clinic Care Care Coordination [address] [facility] Coordination - [address] [place] [address] [facility]) [facility] [id number] [place] [address] [phone] (Work) [phone] Social History Tobacco Use Types Packs/Day Years [...] do you attend restoration or Not asked adventism services? Do you [...] documented as of this encounter Progress Notes Bailey Boyd LGSW - 12/18/2017 11:06 AM CDT Clinic Care Coordination Patient will be closed to care coordination at this time RE: unable to contact Bailey Body Social Work Trailer Body Assembler, RODERICK MCLAUGHLIN P:[phone] [facility] Bailey Boyd LGSW - 12/03/2017 3:15 PM CST Clinic Care Coordination Contact [facility]/Voicemail Clinical Data: pt returned this CCSWs call and left a voicemail. CCSW attempted to reach him Outreach attempted x 1. Left message on voicemail with call back information and requested return call. Plan: academic affairs coordinator will try again in 3-5 business days if he does not call back. Bailey Boyd Social Work Trailer Body Assembler, ARNOLDO COTTON PICKER [facility] P:[phone] / Signed December 03, 2017 R TECHNICIAN Bailey Boyd LGSW - 12/03/2017 10:35 AM CST Clinic Care Coordination Contact [place]/Voicemail Clinical Data: see below Outreach attempted x 2. Left message on voicemail with call back information and requested return call. Plan: academic affairs coordinator will send a [facility] letter and access plan and review in 2-3 weeks. Bailey Boyd Social Work Trailer Body Assembler, ARNOLDO COTTON PICKER [facility] [place]: [facility] P:[phone] / Signed December 03, 2017 R TECHNICIAN Bailey Boyd LGSW - 11/25/2017 9:39 AM CST Clinic Care Coordination Contact [facility]/Voicemail Clinical Data: Has MS. Needing help in the home Outreach attempted x 1. Left message on voicemail with call back information and requested return call. Plan: academic affairs coordinator will try again in 2-3 business days. Bailey Boyd, Social Work Trailer Body Assembler, ACCOUNTING ASSOCIATE, COTTON PICKER [facility] [place] [place] [place] P:[phone] / Signed November 25, 2017 R TECHNICIAN documented in this encounter Plan of Treatment Upcoming Encounters Date Type Specialty Care Team Description 08/18/2022 Virtual Visit [place] [address] [place], [place] [phone] (Wo rk) documented as of this encounter Visit Diagnoses Not on filedocumented in this encounter Additional Health Concerns Assessment Noted Time PHQ-9 Depression Total Score: 2 11/25/2017 8:11 AM LASER TECHNICIAN documented as of this encounter Care Teams Dye Jig Operator Relationship Specialty Start Date End Date Teresita Garcia MD PCP - General Family Practice 01/22/11 [address] [place] [address] Teresita Garcia MD PCP - Assigned PCP 11/16/16 11/30/18 [address] [place] [address] Teresita Garcia MD Assigned PCP 11/16/16 12/28/21 [address] [place] [address] documented as of this encounter
--- OUTSIDE RECORDS SUMMARY | 2022-08-16 14:30 | XMS_ITS | Encounter Summary ---
:1960 Author Organization [place] Address [facility] [place] [address] Care Team Providers Name Role Phone Teresita Garcia MD Primary Care Provider Reason for Visit Reason Comments Mouth/Lip Problem Encounter Details Date Type Department Care Team Description 04/07/2015 Office Visit [facility] Otoniel Mccrary (Primary Clinic [place] DEVORAH Burkett Dx) [address] [place] [phone] Social History Tobacco Use Types Packs/Day Years [...] do you attend confucianism or Not asked oriental orthodox services? Do [...] Sign Reading Time Taken Comments Blood Pressure 114/73 04/07/2015 11:14 AM CDT Pulse 85 04/07/2015 11:14 AM CDT Temperature 36.7 ??C (98.1 ??F) 04/07/2015 11:14 AM CDT Respiratory Rate 16 04/07/2015 11:14 AM CDT Oxygen Saturation - - Inhaled Oxygen Concentration - - Weight 82.1 kg (181 lb) 04/07/2015 11:14 AM CDT Height 171.5 cm (5' 7.5) 04/07/2015 11:14 AM CDT Body Mass Index 27.93 04/07/2015 11:14 AM CDT documented in this encounter Patient Instructions Patient InstructionsOtoniel Mccrary PA-C - 04/07/2015 11:30 AM CDT Images from the original note were not included. Canker Sore Canker sore (also called ???aphthous ulcer?? ) is a recurring painful ulcer in the mouth. It is mostpainful during the first few days, and it lasts about 7-14 days before going away. The exact cause of a canker sore is not known. The canker sore is not the same as a cold sore on the lip due to herpesvirus. Emotional stress or local injury to the mouth (biting your lip or dental work) can cause a canker sore to appear. Home Care: ?? You may find that soft, [id number] foods cause less pain. Avoid sharp or acidic seasonings (like vinegar and lemon). Use a straw to direct liquids away from the sore. ?? Numbing medicines such as Anbesol or Benadryl elixir can be applied to the sore area just before eating to reduce pain temporarily. Follow Up with your doctor as directed by our staff if your sore does not improve after several days or does not heal completely within two weeks. Get Prompt Medical Attention if any of the following occur: ?? Fever of 100.4??F (38??C) or higher, or as directed by your healthcare provider ?? Inability to eat or swallow due to pain ?? [id number] [employer]. [address] [place] [address], [place] [address]. All rights reserved. This information is not intended as a substitute for professional medical care. Always follow your healthcare professional's instructions. documented in this encounter Progress Notes Otoniel Mccrary PA-C - 04/07/2015 11:05 AM CDT SUBJECTIVE: Dejuan Rodriguez is a 54 year old male who presents to clinic today for the following health issues: Mouth/Lip Problem - x 3 wks - not healing. No pain, but has bled in the past if he messes with it. It seems to improve, but then worsens again. He cannot see it, but can feel it in the middle bottom lip. Patient does not smoke cigs. MJ every once in a while. No alcohol use. No recent illnesses. No fevers/chills. No history of similar symptoms. -Patient does state that he shared a drink with a women who later states gets cold sores often. Problem list and histories reviewed & adjusted, as indicated. Additional history: as documented Problem list, Medication list, Allergies, and Medical/Social/Surgical histories reviewed in EPIC andupdated as appropriate. ROS: Constitutional, HEENT, cardiovascular, pulmonary, gi and gu systems are negative, except as otherwise noted. OBJECTIVE: BP 114/73 mmHg Pulse 85 Temp(Src) 98.1 ??F (36.7 ??C) (Oral) Resp 16 Ht 5' 7.5 (1.715 m) Wt 181 lb (82.101 kg) BMI 27.91 kg/m2 Body mass index is 27.91 kg/(m^2). GENERAL: healthy, alert and no distress EYES: Eyes grossly normal to inspection, PERRL and conjunctivae and sclerae normal HENT: ~1/2 cm pale-green ulceration noted on inner lower mid lip. No drainage. No tenderness to palpation. MS: Patient in electric wheel chair PSYCH: mentation appears normal, affect normal/bright Diagnostic Test Results: none ASSESSMENT/PLAN: (608.9) Skin lesion (primary encounter diagnosis) Comment: Appears to be an aphthous ulcer, but no pain is evident on history or exam. Another differential includes HSV1 given sharing recent drink, but does not resemble typical sore. Will treat for both. If symptoms fail to improve in 1 week, patient should RTC. Sooner if worsening or any other new concerning symptoms. Plan: triamcinolone (KENALOG) 0.1 % paste, valACYclovir (VALTREX) 1000 mg tablet -Medication use and side effects discussed with the patient. Patient is in complete understanding and agreement with plan. -See patient instructions Follow up: 1 week prn if symptoms fail to improve. Sooner if worsening Otoniel Mccrary PA-C [facility] documented in this encounter Nursing Notes Nara Mcleod CMA - 04/07/2015 11:14 AM CDT Chief Complaint Patient presents with ??? Mouth/Lip Problem Initial BP 114/73 mmHg Pulse 85 Temp(Src) 98.1 ??F (36.7 ??C) (Oral) Resp 16 Ht 5' 7.5 (1.715 m) Wt 181 lb (82.101 kg) BMI 27.91 kg/m2 Estimated body mass index is 27.91 kg/(m^2) as calculated from the following: Height as of this encounter: 5' 7.5 (1.715 m). Weight as of this encounter: 181 lb (82.101 kg).. BP completed using cuff size regular HEALTH MAINTENANCE REVIEWED. Nara Mcleod CMA documented in this encounter Miscellaneous Notes Addendum Note - Jose Brito - 04/09/2015 7:48 AM CDT Addended by: JOSE BRITO on: 04/09/2015 07:48 AM Modules accepted: Orders, SmartSet documented in this encounter Plan of Treatment Upcoming Encounters Date Type Specialty Care Team Description 08/18/2022 Virtual Visit [place] [address] [place] [address] (Wo rk) documented as of this encounter Visit Diagnoses Diagnosis Skin lesion - Primary Unspecified disorder of skin and subcuta neous tissue documented in this encounter Care Teams Technical Sales Support Specialist Relationship Specialty Start Date End Date Teresita Garcia MD PCP - General Family Practice 01/22/11 [address] [place] [address] documented as of this encounter
--- OUTSIDE RECORDS SUMMARY | 2022-08-16 14:30 | XMS_ITS | Encounter Summary ---
:1960 Author Organization [place] Address [address] [facility] [place] [address] Care Team Providers Name Role Phone Teresita Garcia MD Primary Care Provider Teresita Garcia MD Unavailable Teresita Garcia MD Unavailable Reason for Visit Reason Onset Date Comments Refill Request 07/09/2018 alendronate (FOSAMAX ) 70 MG tablet Encounter Details Date Type Department Care Team Description 07/09/2018 Refill [facility] Roel Garcia MD Refill Request [address] (alendronate (FOSAMAX) [id number] [place] [address] 70 MG tablet) [place] [phone] Social History Tobacco Use Types Packs/Day Years [...] do you attend orthodox or Not asked jehovah's witness services? Do [...] Telephone Encounter - Wilda Schroeder RN - 07/10/2018 10:03 AM CDT Routing refill request to provider for review/approval because: Labs not current: JOHANNEA Wilda Schroeder RN, BSN Telephone Encounter - Stefani Hall - 07/09/2018 4:49 PM CDT Requested Prescriptions Pending Prescriptions Disp Refills ??? alendronate (FOSAMAX) 70 MG tablet [Pharmacy Med Name: ALENDRONATE SODIUM 70 MG TAB] Last Written Prescription Date: 12/25/2017 Last Fill Quantity: 12 tablet, # refills: 3 Last office visit: 11/24/2017 with prescribing provider: Jose 12 tablet 1 Sig: TAKE 1 TAB BY MOUTH ONCE WEEKLY 60MINS BEFORE MORNING MEAL W/8OZ GLASS OF WATER. STAY UPRIGHT X30MIN Bisphosphonates Failed 07/09/2018 1:47 PM Failed - Dexa on file within past [...] section of the refill encounter. Passed - Patient is age 18 or older Passed - Normal serum creatinine on file within past 12 months Recent Labs Lab Test 11/24/17 1145 CR 0.96 documented in this encounter Plan of Treatment Upcoming Encounters Date Type Specialty Care Team Description 08/18/2022 Virtual Visit [facility] [place] [address] [place] [address] (Wo rk) documented as of this encounter Visit Diagnoses Diagnosis Osteoporosis, unspecified osteoporosis t ype, unspecified pathological fracture presence documented in this encounter Additional Health Concerns Assessment Noted Time PHQ-9 Depression Total Score: 2 11/25/2017 8:11 AM STONE ROUGHER documented as of this encounter Care Teams Blow Mold Machine Operator Relationship Specialty Start Date End Date Teresita Garcia MD PCP - General Family Practice 01/22/11 [address] [place] [address] Teresita Garcia MD PCP - Assigned PCP 11/16/16 11/30/18 [address] [place] [address] Teresita Garcia MD Assigned PCP 11/16/16 12/28/21 [address] [place] [address] documented as of this encounter
--- OUTSIDE RECORDS SUMMARY | 2022-08-16 14:30 | XMS_ITS | Encounter Summary ---
:1960 Author Organization [place] Address [address] [facility] [place] [address] Care Team Providers Name Role Phone Teresita Garcia MD Primary Care Provider Teresita Garcia MD Unavailable Teresita Garcia MD Unavailable Encounter Details Date Type Department Care Team Description 11/18/2018 Travel Social History Tobacco Use Types Packs/Day [...] Virtual Visit [place] [address] [place], [place] [phone] (Wo rk) documented as of this encounter Visit Diagnoses Not on filedocumented in this encounter Additional Health Concerns Assessment Noted Time PHQ-9 Depression Total Score: 2 11/25/2017 8:11 AM SPEEDER HAND documented as of this encounter Care Teams Ferris Wheel Attendant Relationship Specialty Start Date End Date Teresita Garcia MD PCP - General Family Practice 01/22/11 [address] [place], [place] [phone] Teresita Garcia MD PCP - Assigned PCP 11/16/16 11/30/18 [address] [place], [place] [phone] Teresita Garcia MD Assigned PCP 11/16/16 12/28/21 [address] [place], [place] [phone] documented as of this encounter
--- OUTSIDE RECORDS SUMMARY | 2022-08-16 14:30 | XMS_ITS | Encounter Summary ---
:1960 Author Organization [place] Address [address] [facility] [place] [address] Care Team Providers Name Role Phone Teresita Garcia MD Primary Care Provider Teresita Garcia MD Unavailable Teresita Garcia MD Unavailable Encounter Details Date Type Department Care Team Description 10/16/2016 [facility] 10/16/16 - Health Information 12/14/16 Management-CHERISE [address] [place] [address] Social History Tobacco Use Types [...] do you attend confucianist or Not asked muslim services? Do you belong to any clubs [...] Virtual Visit [place] [address] [place], [place] [phone] (Wo rk) documented as of this encounter Visit Diagnoses Not on filedocumented in this encounter Care Teams Graphics Manager Relationship Specialty Start Date End Date Teresita Garcia MD PCP - General Family Practice 01/22/11 [address] [place], [place] [phone] Teresita Garcia MD PCP - Assigned PCP 11/16/16 11/30/18 [address] [place], [place] [phone] Teresita Garcia MD Assigned PCP 11/16/16 12/28/21 [address] [place] [address] documented as of this encounter
--- OUTSIDE RECORDS SUMMARY | 2022-08-16 14:30 | XMS_ITS | Encounter Summary ---
:1960 Author Organization [place] Address [address] [place] [address] Care Team Providers Name Role Phone Teresita Garcia MD Primary Care Provider Teresita Garcia MD Unavailable Teresita Garcia MD Unavailable Reason for Visit Reason Onset Date Comments Forms 11/26/2016 [facility] Encounter Details Date Type Department Care Team Description 11/26/2016 Telephone [facility] Teresita Garcia MD Forms ([address]) [address] [place] [phone] Social History Tobacco Use Types [...] do you attend confucianism or Not asked caodaism services? Do you belong to any clubs [...] Notes Telephone Encounter - Rosy Brito - 11/27/2016 2:49 PM CST Form completed and faxed,11/27/16 Jackie Brito/TC ENGINEER NUCLEAR EQUIPMENT Telephone Encounter - Malena Hankins - 11/26/2016 1:52 PM CST Recd 2 page fax from [employer] [facility]. Please complete Face to Face Encounter and fax to [phone]. Form in AA folder at [facility]. Malena Hankins Environmental Resource Specialist ENGINEER NUCLEAR EQUIPMENT documented in this encounter Plan of Treatment Upcoming Encounters Date Type Specialty Care Team Description 08/18/2022 Virtual Visit [place] [address] [place] [address] (Wo rk) documented as of this encounter Visit Diagnoses Not on filedocumented in this encounter Additional Health Concerns Assessment Noted Time PHQ-9 Depression Total Score: 4 10/18/2016 7:15 AM TEST ENGINEER NUCLEAR EQUIPMENT documented as of this encounter Care Teams Bowl Attendant Relationship Specialty Start Date End Date Teresita Garcia MD PCP - General Family Practice 01/22/11 [address] [place] [address] Teresita Garcia MD PCP - Assigned PCP 11/16/16 11/30/18 [address] [place] [address] Teresita Garcia MD Assigned PCP 11/16/16 12/28/21 [address] [place] [address] documented as of this encounter
--- OUTSIDE RECORDS SUMMARY | 2022-08-16 14:30 | XMS_ITS | Encounter Summary ---
:1960 Author Organization [place] Address [address] [facility] [place] [address] Care Team Providers Name Role Phone Teresita Garcia MD Primary Care Provider Reason for Visit Reason Onset Date Comments Nurse Advice Line 10/13/2016 [facility] Encounter Details Date Type Department Care Team Description 10/13/2016 Telephone [facility] Teresita Garcia MD Nurse Advice Line [address] ([facility]) [address] [place] [phone] Social History Tobacco Use Types Packs/Day Years [...] do you attend yazidism or Not asked zoroastrian services? Do you [...] encounter Miscellaneous Notes Telephone Encounter - Deann Lora, RN - 10/13/2016 2:56 PM CST BANDAR...AA Pt being dc'd from [facility] 10-15-16 [facility] requesting approval of home care orders Follow up appt 10/17/16 Jose Authorized per protocol Deann Lora RN, BS Message handled by Nurse Triage . HOUSE ANALYST documented in this encounter Plan of Treatment Upcoming Encounters Date Type Specialty Care Team Description 08/18/2022 Virtual Visit [place] [address] [place], [place] [phone] (Wo rk) documented as of this encounter Visit Diagnoses Not on filedocumented in this encounter Care Teams Superintendent Building Relationship Specialty Start Date End Date Teresita Garcia MD PCP - General Family Practice 01/22/11 [address] [place] [address] documented as of this encounter
--- OUTSIDE RECORDS SUMMARY | 2022-08-16 14:30 | XMS_ITS | Encounter Summary ---
:1960 Author Organization [place] Address [address] [facility] [place] [address] Care Team Providers Name Role Phone Teresita Garcia MD Primary Care Provider Teresita Garcia MD Unavailable Teresita Garcia MD Unavailable Reason for Visit Reason Comments Pre-Op Exam Encounter Details Date Type Department Care Team Description 01/20/2017 Office Visit [facility] Teresita Garcia MD Preop general physical exam (Primary Dx) ; Clinic [address] [phone] Social History Tobacco Use Types Packs/Day [...] do you attend adventism or Not asked lutheran services? Do you [...] Sign Reading Time Taken Comments Blood Pressure 123/81 01/20/2017 11:11 AM CDT Pulse 94 01/20/2017 11:11 AM CDT Temperature 36.7 ??C (98.1 ??F) 01/20/2017 11:11 AM CDT Respiratory Rate 20 01/20/2017 11:11 AM CDT Oxygen Saturation 97% 01/20/2017 11:11 AM CDT Inhaled Oxygen Concentration - - Weight 76.7 kg (169 lb) 01/20/2017 11:11 AM CDT Height 171.5 cm (5' 7.5) 01/20/2017 11:11 AM CDT Body Mass Index 26.08 01/20/2017 11:11 AM CDT documented in this encounter Patient Instructions Patient InstructionsYumiko Camp CMA - 01/20/2017 11:05 AM CDT Before Your Surgery ??? Call your surgeon [...] and have clean sheets on your bed. documented in this encounter Progress Notes Teresita Garcia MD - 01/20/2017 11:05 AM CDT [address] [phone] Dept: [phone] PRE-OP EVALUATION: Today's date: 01/20/2017 Dejuan Rodriguez (: 1960) presents for pre-operative evaluation assessment as requested byDr. Enriquez. He requires evaluation and anesthesia risk assessment prior to undergoing surgery/procedure for treatment of pump . Proposed procedure: pump replacement Date of Surgery/ Procedure: 01/27/17 Time of Surgery/ Procedure: 10:30 Hospital/Surgical Facility: [facility] Surgery Primary Physician: Teresita Garcia Type of Anesthesia [...] apnea, excessive snoring or daytime drowsiness? 15. NO - Do you have any prosthetic heart valves? 16. YES - Do you have prosthetic joints? 17. NO - Is there any chance that you may be ? HPI: Brief HPI related to upcoming procedure: replacement of the baclofen pump. See problem list for active medical problems. Problems all longstanding and stable, except as noted/documented. See ROS for pertinent symptoms related to these conditions. . MEDICAL HISTORY: Patient Active Problem List Diagnosis Date Noted ??? Major depressive disorder, single episode, mild (H) 10/17/2016 Priority: Medium ??? Status post hip replacement 05/14/2011 Priority: Medium Bilateral (Problem list name updated by automated process. Provider to review and confirm.) ??? Dqmu-Rlado-Hsucbhq disease 05/14/2011 Priority: Medium ??? Atopic rhinitis [...] ??? Multiple sclerosis (H) sees neurology at [facility] ??? Other specified disorder of bladder neurogenic- Dr. Mojica Past Surgical History: Procedure Laterality Date ??? C TOTAL HIP ARTHROPLASTY Hip Replacement, Total x2 due to [employer] Perthes ??? COLONOSCOPY 06/01/2013 Procedure: COLONOSCOPY; Colonoscopy; Surgeon: Jacob Simmons MD; Location: GI Current Outpatient Prescriptions Medication Sig Dispense Refill ??? Calcium Carb-Cholecalciferol (CALCIUM + D3) 600-200 MG-UNIT TABS ??? Multiple Vitamins-Minerals (CENTRUM SILVER PO) ??? [...] TABS 1 TABLET DAILY NEEDED 30 0 OTC products: no recent use of OTC ASA, NSAIDS or Steroids Allergies Allergen Reactions ??? Dilaudid [Hydromorphone] Nausea and Vomiting ??? Pollen Extract Latex Allergy: NO Social History Substance Use Topics ??? Smoking status: Never Smoker ??? Smokeless tobacco: Never Used ??? Alcohol use No History Drug Use ??? Yes Comment: marijuana occasionally REVIEW OF SYSTEMS: C: NEGATIVE for fever, chills, change in weight E/M: NEGATIVE for ear, mouth and throat problems R: NEGATIVE for significant cough or SOB CV: NEGATIVE for chest pain, palpitations or peripheral edema GI: NEGATIVE for nausea, abdominal pain, heartburn, or change in bowel habits EXAM: BP 123/81 (BP Location: Left arm, Patient Position: Chair, Cuff Size: Adult Regular) Pulse 94 Temp 98.1 ??F (36.7 ??C) (Oral) Resp 20 Ht 5' 7.5 (1.715 m) Wt 169 lb (76.7 kg) SpO2 97% BMI26.08 kg/m2 GENERAL APPEARANCE: healthy, alert and no distress HENT: ear canals and TM's normal and nose and mouth without ulcers or lesions RESP: lungs clear to auscultation - no rales, rhonchi or wheezes CV: regular rate and rhythm, normal S1 S2, no S3 or S4 and no murmur, click or rub ABDOMEN: soft, nontender, no HSM or masses and bowel sounds normal NEURO: Normal strength and tone, sensory exam grossly normal, mentation intact and speech normal DIAGNOSTICS: No labs or EKG required for low risk surgery (cataract, skin procedure, breast biopsy, etc) Recent Labs Lab Test 04/19/13 1152 07/07/11 1347 05/14/11 1631 HGB 15.0 14.8 16.0 PLT 175 178 -- NA 144 -- 143 POTASSIUM 4.1 -- 4.2 CR 1.09 -- 1.14 IMPRESSION: Reason for surgery/procedure: baclofen pump. Diagnosis/reason for consult: pre op. The proposed surgical procedure is considered LOW risk. REVISED CARDIAC RISK INDEX The patient has the following serious cardiovascular risks for perioperative complications such as ([place], PE, VFib and 3?? AV Block): No serious cardiac risks INTERPRETATION: 0 risks: Class I (very low risk - 0.4% complication rate) The patient has the following additional risks for perioperative complications: No identified additional risks ICD-10-CM 1. Preop general physical exam Z01.818 ( (M81.0) Osteoporosis Comment: pt has been diagnosed with above by his neurologist, will start on Plan: alendronate (FOSAMAX) 70 MG tablet Once weekly, and continue on calcium with vit D. RECOMMENDATIONS: APPROVAL GIVEN to proceed with proposed procedure, without further diagnostic evaluation Signed Electronically by: Teresita Garcia MD Copy of this evaluation report is provided to requesting physician. [place] Preop Guidelines documented in this encounter Nursing Notes Yumiko Camp CMA - 01/20/2017 11:00 AM CDT Chief Complaint Patient presents with ??? Pre-Op Exam Initial BP 123/81 (BP Location: Left arm, Patient Position: Chair, Cuff Size: Adult Regular) Pulse94 Temp 98.1 ??F (36.7 ??C) (Oral) Resp 20 Ht 5' 7.5 (1.715 m) Wt 169 lb (76.7 kg) SpO2 97% BMI 26.08 kg/m2 Estimated body mass index is 26.08 kg/(m^2) as calculated from the following: Height as of this encounter: 5' 7.5 (1.715 m). Weight as of this encounter: 169 lb (76.7 kg). Medication Reconciliation: complete Yumiko Camp CMA documented in this encounter Plan of Treatment Upcoming Encounters Date Type Specialty Care Team Description 08/18/2022 Virtual Visit [place] [address] [place], [place] [phone] (Wo rk) documented as of this encounter Visit Diagnoses Diagnosis Preop general physical exam - Primary Other specified pre-operative examinatio n Osteoporosis Osteoporosis, unspecified documented in this encounter Additional Health Concerns Assessment Noted Time PHQ-9 Depression Total Score: 4 10/18/2016 7:15 AM CHAIR CAR ATTENDANT documented as of this encounter Care Teams Teradata Solution Architect Relationship Specialty Start Date End Date Teresita Garcia MD PCP - General Family Practice 01/22/11 [address] [place] [address] Teresita Garcia MD PCP - Assigned PCP 11/16/16 11/30/18 [address] [place] [address] Teresita Garcia MD Assigned PCP 11/16/16 12/28/21 [address] [place] [address] documented as of this encounter
--- OUTSIDE RECORDS SUMMARY | 2022-08-16 14:30 | XMS_ITS | Encounter Summary ---
:1960 Author Organization [place] Address Formerly [facility] [place] [address] Care Team Providers Name Role Phone Teresita Garcia MD Primary Care Provider Reason for Visit Reason Onset Date Comments Refill Request 07/01/2016 ketoconazole (NIZORA L) 2 % shampoo Encounter Details Date Type Department Care Team Description 07/01/2016 Refill [facility] Roel Garcia MD Refill Request [place] [id number] [place] [address] (ketoconazole (NIZORAL) [address] [place], [place] 2 % shampoo) [place], [place] [phone] Social History Tobacco Use Types Packs/Day Years [...] do you attend baptist or Not asked cheondoism services? Do you [...] this encounter Miscellaneous Notes Telephone Encounter - Sydni Norman RN - 07/01/2016 12:59 PM CDT Refill sent x1. Letter sent informing pt to schedule an appointment before next refill. Sydni Norman RN Telephone Encounter - Karen Dolan - 07/01/2016 12:17 PM CDT ketoconazole (NIZORAL) 2 % shampoo Last Written Prescription Date: 01/04/2014 Last Fill Quantity: 120mL, # refills: 1 Last Office Visit with [facility], P or [facility] prescribing provider: 04/07/2015 Demetra documented in this encounter Plan of Treatment Upcoming Encounters Date Type Specialty Care Team Description 08/18/2022 Virtual Visit [place] [address] [place], [place] [phone] (Wo rk) documented as of this encounter Visit Diagnoses Diagnosis Seborrheic dermatitis of scalp - Primary Other seborrheic dermatitis documented in this encounter Care Teams Trucksmith Relationship Specialty Start Date End Date Teresita Garcia MD PCP - General Family Practice 01/22/11 [address] [place] [address] documented as of this encounter
--- OUTSIDE RECORDS SUMMARY | 2022-08-16 14:30 | XMS_ITS | Encounter Summary ---
:1960 Author Organization [place] Address [address] [facility] [place] [address] Care Team Providers Name Role Phone Teresita Garcia MD Primary Care Provider Teresita Garcia MD Unavailable Teresita Gacria MD Unavailable Reason for Visit Reason Comments Medication Refill Alendronate Encounter Details Date Type Department Care Team Description 12/22/2017 Refill [facility] Roel Garcia MD Medication Refill [place] [address] [place] [address] (Alendronate) [id number] [place] [phone] Social History Tobacco Use Types Packs/Day Years [...] do you attend sikh or Not asked confucianism services? Do you [...] this encounter Miscellaneous Notes Telephone Encounter - Hal Sierra RN - 12/25/2017 2:16 PM CDT Pt informed. Hal Sierra RN Telephone Encounter - Teresita Garcia MD - 12/25/2017 2:11 PM CDT Ordered. Thanks. Teresita Garcia MD [facility] [phone] Telephone Encounter - Karen Covarrubias RN - 12/25/2017 1:14 PM CDT alendronate (FOSAMAX) 70 MG tablet 12 tablet 3 01/20/2017 -- ?? Sig: Take 1 tablet (70 mg) by mouth every 7 days Take 60 minutes before am meal with 8 oz. water.Remain upright for 30 minutes. ?? Class: E-Prescribe 01/20/17 Sent (none) Teresita Garcia MD Pt calls back, informs had dexa from outside provider last year, diagnosis of osteoporosis , AA saidhe would manage, AA sent one year of prescription on 01/20/17 so pt confused why thinks neuro prescribed, AA told pt f/u dexa in 3 years (2 years from now), routed again to AA, please confirm, added dexa to , inform pt when final, january LM Karen Covarrubias RN, BSN Message handled by Nurse Triage. Telephone Encounter - Hal Sierra RN - 12/25/2017 9:54 AM CDT Left message to call back. Hal Sierra RN Telephone Encounter - Teresita Garcia MD - 12/24/2017 11:26 AM CDT I agree, it should be done by primary, although this is a special case as he dos have MS, and his neurologist probably ordered the dexa scan and prescribed his medicine Please contact the patient to find out who prescribed it and why? Teresita Garcia MD [facility] [phone] r Telephone Encounter - Deann Lora RN - 12/24/2017 9:52 AM CDT Routing refill request to provider for review/approval because: No dexa scan on file, shouldn't OP to be managed by PCP Do you want scan done? Deann Lora RN, BS Clinical Nurse Triage. Telephone Encounter - Teresita Garcia MD - 12/24/2017 8:51 AM CDT I think this is prescribed by his neurologist, can we ask the patient to contact him instead. Teresita Garcia MD [facility] [phone] Telephone Encounter - Hal Sierra RN - 12/23/2017 3:27 PM CDT Routing refill request to provider for review/approval because: See below Hal Sierra RN Telephone Encounter - Rosy Brito - 12/22/2017 10:10 AM CDT Requested Prescriptions Pending Prescriptions Disp Refills ??? alendronate (FOSAMAX) 70 MG tablet [Pharmacy Med Name: ALENDRONATE SODIUM 70 MG TAB] 12 tablet 3 Sig: TAKE 1 TAB BY MOUTH ONCE WEEKLY 60MINS BEFORE MORNING MEAL W/8OZ GLASS OF WATER. STAY UPRIGHT X30MIN Bisphosphonates Failed 12/22/2017 10:10 AM Failed - Dexa on file within [...] Labs Lab Test 11/24/17 1145 CR 0.96 Last Written Prescription Date: 01/20/17 Last Fill Quantity: 12, # refills: 3 Last office visit: 11/24/2017 with prescribing provider: Dr Garcia Future Office Visit: documented in this encounter Plan of Treatment Upcoming Encounters Date Type Specialty Care Team Description 08/18/2022 Virtual Visit [place] [address] [place], [place] [phone] (Wo rk) documented as of this encounter Visit Diagnoses Diagnosis Osteoporosis, unspecified osteoporosis t ype, unspecified pathological fracture presence - Primary documented in this encounter Additional Health Concerns Assessment Noted Time PHQ-9 Depression Total Score: 2 11/25/2017 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
--- OUTSIDE RECORDS SUMMARY | 2022-08-16 14:30 | XMS_ITS | Encounter Summary ---
:1960 Author Organization [place] Address [address] [place] [address] Care Team Providers Name Role Phone Teresita Garcia MD Primary Care Provider Teresita Garcia MD Unavailable Teresita Garcia MD Unavailable Encounter Details Date Type Department Care Team Description 11/22/2018 Travel Social History Tobacco Use Types Packs/Day [...] do you attend christian or Not asked sikh services? 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
--- OUTSIDE RECORDS SUMMARY | 2022-08-16 14:31 | XMS_ITS | Encounter Summary ---
:1960 Author Organization [facility] Address [address] [facility] [place] [address] Care Team Providers Name Role Phone Teresita Garcia MD Primary Care Provider Reason for Referral Referral not Required - Closed Specialty Diagnoses / Procedures Referred By Contact Refer red To Contact Diagnoses Teresita Serrano MD [facility] [address] [facility] [address] [facility] [address] [place], [place] [address] [place] [address] Phone: [phone] Fax: Referral ID Status Reason Start Date Expiration Date Visits Requ ested Visits Authorized [id number] Closed 05/14/2011 11/10/2011 1 1 Reason for Visit Reason Comments Pre-Op Exam Encounter Details Date Type Department Care Team Description [facility]/14[facility] Preop general physical exam (Primary Dx) ; [facility] [place] [address] Other specified disease of hair and hair follicles; [address] [place], [place] Rhinitis, allergic, perennia l; [place] [address] [facility] [address] Social History Tobacco Use Types Packs/Day [...] or relatives? How often do you attend holiness or Not asked bahai services? Do you belong to any clubs or Not asked organizations such as holiness groups, unions, fraTonchidot or athletic groups, or school groups? How [...] Sign Reading Time Taken Comments Blood Pressure 116/68 05/14/2011 3:56 PM CDT Pulse 99 05/14/2011 3:56 PM CDT Temperature 36.9 ??C (98.4 ??F) 05/14/2011 3:56 PM CDT Respiratory Rate 20 05/14/2011 3:56 PM CDT Oxygen Saturation 96% 05/14/2011 3:56 PM CDT Inhaled Oxygen Concentration - - Weight 74.4 kg (164 lb) 05/14/2011 3:56 PM CDT Height 172.7 cm (5' 8) 05/14/2011 3:56 PM CDT Body Mass Index 24.94 05/14/2011 3:56 PM CDT documented in this encounter Progress Notes Wes Camp - 05/14/2011 11:27 AM CDT [address] [address] PRE-OP EVALUATION: Today's date: 05/14/2011 Dejuan Rodriguez (: 1960) presents for pre-operative evaluation assessment as requested byDr. Mejía. He requires evaluation and anesthesia risk assessment prior to undergoing surgery/procedure for treatment of baclofen pump . Date of Surgery/ Procedure: 05/15/11 Time of Surgery/ Procedure: 7:45 Hospital/Surgical Facility: [facility] Fax number for surgical facility: [phone] Primary Physician: Dr. Garcia Type of Anesthesia Anticipated: General History of anesthesia complications: NONE History of abnormal bleeding: NONE History of blood transfusions: NO Patient has a Health Care Directive or Living Will: NO PREOP QUESTIONNAIRE 1- NO - Do you ever have any pain or discomfort in your chest? 2- NO - Have you ever had a severe pain across the front of your chest lasting for half an hour or more? 3- NO - Do you have swelling in your feet or ankles at times? 4- NO - Are you troubled by shortness of breath when: walking on the level/ up a slight hill/ at night? 5- NO - Does your chest ever sound wheezy or whistling? 6- NO - Do you currently have a cold, bronchitis or other respiratory infection? 7- NO - Have you had a cold, bronchitis or other respiratory infection within the last 2 weeks? 8- NO - Do you usually have a cough? 9- NO - Do you sometimes get pains in the calves of your legs when you walk? 10-NO - Do you or anyone in your family have previous history of blood clots? 11-NO - Do you or does anyone in your family have serious bleeding problem such as prolonged bleeding following surgeries or cuts? 12-NO - Have you ever had problems with anemia or been told to take iron pills? 13-NO - Have you had any abnormal blood loss such as black, tarry or bloody stools, or abnormal vaginal bleeding? 14-NO - Have you or any of your relatives ever had problems with anesthesia? 15-NO - Do you snore or stop breathing at night? 16-YES - Do you have any prosthetic heart valves or joints? 17-NO - Is there any chance that you may be ? HPI: DEPRESSION - Patient has a long history of Depression of moderate severity requiring medication for control with recent symptoms being unchanged..Current symptoms of depression include depressed mood. . Patient Active Problem List Diagnoses Date Noted ??? 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 Spasticity [781.0AM] 03/10/2011 ??? Seborrheic dermatitis of scalp [690.18J] 03/10/2011 ??? Cannabis abuse [305.20P] 12/13/2010 Does not smoke daily ??? 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 CARDIOVASCULAR SCREENING; LDL GOAL LESS THAN 160 [V81.2LR] 07/28/2010 ??? MULTIPLE SCLEROSIS [340] 09/01/2005 Past Medical History Diagnosis Date ??? Multiple sclerosis sees neurology at [facility] ??? Juvenile osteochondrosis of hip and pelvis ??? Other specified disorder of bladder neurogenic- Dr. Mojica Past Surgical History Procedure Date ??? 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 ketoconazole (NIZORAL) 2 % shampoo Apply topically. 1 Squirt twice a week. Apply shampoo to scalp and rinse after 5 minutes ??? Docusate Sodium (COLACE PO) Take by mouth. ??? Cholecalciferol (VITAMIN D) 2000 UNIT tablet Take 1 tablet by mouth daily. ??? Ropinirole HCl (REQUIP PO) Take by mouth daily. ??? mometasone (NASONEX) 50 MCG/ACT nasal spray 2 sprays by Both Nostrils route daily. ??? VICODIN 5-500 MG OR TABS ONE TO TWO TABLETS EVERY 4 TO 6 HOURS NEEDED FOR PAIN ??? SENNA 15 MG OR TABS 4 TABLETS AT BEDTIME ??? TYSABRI 300 MG/15ML IV CONC 300 MG EVERY 4 WEEKS ??? KLONOPIN 0.5 MG OR TABS 1 TABLET 3 TIMES DAILY ??? VIAGRA 100 MG OR TABS 1 TABLET DAILY NEEDED OTC products: no recent use of OTC ASA, NSAIDS or Steroids Allergies Allergen Reactions ??? Pollen Extract Latex Allergy: NO History Substance Use Topics ??? Smoking status: Never Smoker ??? Smokeless tobacco: Never Used ??? Alcohol Use: No History Drug Use ??? Yes marijuana occasionally REVIEW OF SYSTEMS: C: NEGATIVE for fever, chills, change in weight E: NEGATIVE for vision changes or irritation E/M: NEGATIVE for ear, mouth and throat problems R: NEGATIVE for significant cough or SOB CV: NEGATIVE for chest pain, palpitations or peripheral edema GI: NEGATIVE for nausea, abdominal pain, heartburn, or change in bowel habits MUSCULOSKELETAL:back pain . Neuro : headache, hx of MS. E: NEGATIVE for temperature intolerance, skin/hair changes H: NEGATIVE for bleeding problems EXAM: BP 116/68 Pulse 99 Temp(Src) 98.4 ??F (36.9 ??C) (Oral) Resp 20 Ht 5' 8 (1.727 m) Wt 164 lb (74.39 kg) BMI 24.94 kg/m2 SpO2 96% GENERAL APPEARANCE: healthy, alert and no distress EYES: EOMI, - PERRL HENT: ear canals and TM's normal and nose and mouth without ulcers or lesions NECK: no adenopathy, no asymmetry, masses, or scars and thyroid normal to palpation RESP: lungs clear to auscultation - no rales, rhonchi or wheezes BREAST: small pinpoint hyperpigmented lesion on the nipples. CV: regular rates and rhythm, normal S1 S2, no S3 or S4 and no murmur, click or rub - ABDOMEN: soft, nontender, no HSM or masses and bowel sounds normal There is a pump under the skin on the R side. MS: extremities normal- no gross deformities noted, no evidence of inflammation in joints, FROM in all extremities. Swelling in the lower R side of the back. SKIN: small round lesion on the nipple. NEURO: increase spasticity of the arms and legs, mentation intact and speech normal PSYCH: mentation appears normal. and affect normal/bright LYMPHATICS: No axillary, cervical, inguinal, or supraclavicular nodes DIAGNOSTICS: Preop Testing Labs: see FCIS IMPRESSION: Reason for surgery/procedure: back surgery. Diagnosis/reason for consult: pre op.l The proposed surgical procedure is considered LOW risk. For above listed surgery and anesthesia: Patient is at LOW risk for surgery/procedure and perioperative/procedure complications. RECOMMENDATIONS: --Approval given to proceed with proposed procedure, without further diagnostic evaluation. Mole on the nipples : refer to Derm. Signed Electronically by: Teresita Garcia MD. Copy of this evaluation report is provided to requesting physician. Preop Guidelines documented in this encounter Nursing Notes 05/14/2011 3:45 PM CDT >> WES UBNNY Wed May 14, 2011 4:03 PM Patient presents with: Pre-Op Exam Initial BP 116/68 Pulse 99 Temp(Src) 98.4 ??F (36.9 ??C) (Oral) Resp 20 Ht 5' 8 (1.727 m) Wt 164 lb (74.39 kg) BMI 24.94 kg/m2 SpO2 96% Estimated Body mass index is 24.94 kg/(m^2) as calculated from the following: Height as of this encounter: 5' 8(1.727 m). Weight as of this encounter: 164 lb(74.39 kg).. BP completed using cuff size large Wes Camp CMA documented in this encounter Plan of Treatment Upcoming Encounters Date Type Specialty Care Team Description 08/18/2022 Virtual Visit [place] [address] [place] [address] (Wo rk) Scheduled Referrals Name Type Priority Associated Diagnoses Order S chedule DERMATOLOGY REFERRAL Referral Routine Moles Ordered : 05/14/2011 documented as of this encounter Procedures Procedure Name Priority Date/Time Associated Comments Diagnosis HEMOGLOBIN Routine 05/14/2011 4:31 PM Preop general Results for this CDT physical exam procedure are in the results section. BASIC METABOLIC Routine 05/14/2011 4:31 PM Preop general Resul ts for this PANEL CDT physical exam procedure are in the results section. documented in this encounter Results Basic metabolic panel (05/14/2011 4:31 PM CDT) P athologist Signature Sodium 143 133 - 144 [facility] mmol/L [facility] Potassium 4.2 3.4 - 5.3 [facility] mmol/L [facility] Chloride 103 94 - 109 [facility] mmol/L [facility] Carbon Dioxide 25 20 - 32 [facility]L [facility] Anion Gap 15 6 - 17 [facility] mmol/L [facility] Glucose 91 60 - 99 [facility] mg/dL [facility] Urea Nitrogen 19 5 - 24 [facility] mg/dL [facility] Creatinine 1.14 0.66 - [facility] 1.25 mg/dL [facility] GFR Estimate 68 >60 [facility] mL/min/1.7 [facility] m2 GFR Estimate If 83 >60 [facility] Black mL/min/1.7 [facility] m2 Calcium 9.9 8.5 - 10.4 [facility] mg/dL [facility] Specimen Anatomical Collection Method Collection Time Receive d Time (Source) Location / / Volume Laterality Blood specimen 05/14/2011 4:31 PM 011 4:37 (specimen) CDT PM CDT Teresita Garcia MD LAB - BLOOD ORDERABLES Performing Organization Address City/Special Care Hospital/ZIP Code Phon e Number [facility] [address] [place] [address] [facility] HEMOGLOBIN (05/14/2011 4:31 PM CDT) P athologist Signature Hemoglobin 16.0 13.3 - 17.7 [facility] g/dL [facility] Specimen Anatomical Collection Method Collection Time Receive d Time (Source) Location / / Volume Laterality Blood specimen 05/14/2011 4:31 PM 011 4:37 (specimen) CDT PM CDT Teresita Garcia MD LAB - BLOOD ORDERABLES Performing Organization Address City/Special Care Hospital/ZIP Code Phon e Number [facility] [address] [place] [address] [facility] documented in this encounter Visit Diagnoses Diagnosis Preop general physical exam - Primary Other specified pre-operative examinatio n Other specified disease of hair and hair follicles Rhinitis, allergic, perennial Allergic rhinitis, cause unspecified Moles Benign neoplasm of skin, site unspecifie d documented in this encounter Care Teams Labeling Associate Relationship Specialty Start Date End Date Teresita Garcia MD PCP - General Family Practice 01/22/11 [address] [place] [address] documented as of this encounter
--- OUTSIDE RECORDS SUMMARY | 2022-08-16 14:31 | XMS_ITS | Encounter Summary ---
:1960 Author Organization [place] Address [address] [facility] [place] [address] Care Team Providers Name Role Phone Teresita Garcia MD Primary Care Provider Reason for Visit Reason Onset Date Comments Call to schedule test 05/03/2013 GI Facility Maintenance Mechanic Encounter Details Date Type Department Care Team Description 05/03/2013 Telephone [facility] Marysol Andrews to schedule test [facility] (GI Facility Maintenance Mechanic) [address] [place] [phone] Social History Tobacco Use Types Packs/Day Years [...] or relatives? How often do you attend anabaptist or Not asked hindu services? Do you belong to any clubs or Not asked organizations such as anabaptist groups, unions, fraternal or athletic groups, or [...] this encounter Miscellaneous Notes Telephone Encounter - Marysol Andrews - 05/03/2013 11:01 AM CDT Only Number Listed Is Not A Working Phone Number documented in this encounter Plan of Treatment Upcoming Encounters Date Type Specialty Care Team Description 08/18/2022 Virtual Visit [place] [address] [place], [place] [phone] (Wo rk) documented as of this encounter Visit Diagnoses Not on filedocumented in this encounter Care Teams Hot Air Furnace Installer And Repairer Relationship Specialty Start Date End Date Teresita Garcia MD PCP - General Family Practice 01/22/11 [address] [place], [place] [phone] documented as of this encounter
--- OUTSIDE RECORDS SUMMARY | 2022-08-16 14:31 | XMS_ITS | Encounter Summary ---
:1960 Author Organization [place] Address [address] [facility] [place] [address] Care Team Providers Name Role Phone Teresita Garcia MD Primary Care Provider Reason for Visit Reason Onset Date Comments Erroneous encounter-disregard 04/11/2013 Encounter Details Date Type Department Care Team Description 04/11/2013 Telephone [facility] Ara Saleh MD [facility] [address] encounter-disregard [id number] [place] [phone] Social History Tobacco Use Types Packs/Day Years [...] do you attend restoration or Not asked hinduism services? Do you [...] Virtual Visit [place] [address] [place], [place] [phone] (Wo rk) documented as of this encounter Visit Diagnoses Not on filedocumented in this encounter Care Teams Trim And Burr Operator Relationship Specialty Start Date End Date Teresita Garcia MD PCP - General Family Practice 01/22/11 [address] [place], [place] [phone] documented as of this encounter
--- OUTSIDE RECORDS SUMMARY | 2022-08-16 14:31 | XMS_ITS | Encounter Summary ---
:1960 Author Organization [place] Address [address] [facility] [place] [address] Care Team Providers Name Role Phone Teresita Garcia MD Primary Care Provider Encounter Details Date Type Department Care Team Description 09/08/2011 Orders Only [facility] Enc ounter for long-term (current) use of other medications; [facility] Other malaise and fatigue; [address] [place] [address] Multiple sclerosis ([place]) [place] [address] Social History Tobacco Use Types [...] do you attend adventism or Not asked confucianist services? Do you [...] Virtual Visit [place] [address] [place] [address] (Wo rk) documented as of this encounter Procedures Procedure Name Priority Date/Time Associated Diagnosis Comme nts BILIRUBIN TOTAL Routine 09/08/2011 3:52 PM Encounter for Resul ts for this RECEPTIONIST NURSE long-term (current) procedur e are in use of other the results medications section. Other malaise and fatigue Multiple sclerosis (H) AST Routine 09/08/2011 3:52 PM Encounter for Results for this RECEPTIONIST NURSE long-term (current) procedur e are in use of other the results medications section. Other malaise and fatigue Multiple sclerosis (H) ALT Routine 09/08/2011 3:52 PM Encounter for Results for this RECEPTIONIST NURSE long-term (current) procedur e are in use of other the results medications section. Other malaise and fatigue Multiple sclerosis (H) documented in this encounter Results Bilirubin, total (09/08/2011 3:52 PM RECEPTIONIST NURSE) athologist Signature Bilirubin Total 0.7 0.2 - 1.3 [facility] mg/dL CLINIC LAB Specimen Anatomical Collection Method Collection Time Receive d Time (Source) Location / / Volume Laterality Blood specimen 09/08/2011 3:52 PM 011 3:53 (specimen) RECEPTIONIST NURSE PM RECEPTIONIST NURSE Ramón Shine MD LAB - BLOOD ORDERABLES Performing Organization Address [facility] Phon e Number [address] [address] [phone] [facility] ALT (09/08/2011 3:52 PM RECEPTIONIST NURSE) athologist Signature ALT 27 0 - 70 U/L [facility] Specimen Anatomical Collection Method Collection Time Receive d Time (Source) Location / / Volume Laterality Blood specimen 09/08/2011 3:52 PM 011 3:53 (specimen) RECEPTIONIST NURSE PM RECEPTIONIST NURSE Ramón Shine MD LAB - BLOOD ORDERABLES Performing Organization Address [facility] Phon e Number [address] [address] [phone] [facility] AST (09/08/2011 3:52 PM RECEPTIONIST NURSE) athologist Signature AST 24 0 - 55 U/L [facility] Specimen Anatomical Collection Method Collection Time Receive d Time (Source) Location / / Volume Laterality Blood specimen 09/08/2011 3:52 PM 011 3:53 (specimen) RECEPTIONIST NURSE PM RECEPTIONIST NURSE Ramón Shine MD LAB - BLOOD ORDERABLES Performing Organization Address City/State/ZIP Code Phon e Number [facility] [address] [place] [address] [facility] documented in this encounter Visit Diagnoses Diagnosis Encounter for long-term (current) use of other medications Other malaise and fatigue Multiple sclerosis (H) Multiple sclerosis documented in this encounter Care Teams Transformer Repairer Relationship Specialty Start Date End Date Teresita Garcia MD PCP - General Family Practice 01/22/11 [address] [place] [address] documented as of this encounter
--- OUTSIDE RECORDS SUMMARY | 2022-08-16 14:31 | XMS_ITS | Encounter Summary ---
:1960 Author Organization [place] Address [address] [facility] [place] [address] Care Team Providers Name Role Phone Teresita Garcia MD Primary Care Provider Reason for Visit Auth/Cert - Closed Specialty Diagnoses / Procedures Referred By Contact Refer red To Contact Gastroenterology Diagnoses screening Rh Endoscopy Procedures COLONOSCOPY [address] [place] [address] Phone: Fax: Referral ID Status Reason Start Date Expiration Date Visits Requ ested Visits Authorized [id number] Closed 1 1 Encounter Details Date Type Department Care Team Description 06/01/[address] [facility] Jacob Simmons, Endoscopy Alex KAYE [address] [place], [place] GASTROENTEROLOGY [address] [address] [facility] [phone] [address] (Wo rk) Social History Tobacco Use Types [...] do you attend anabaptism or Not asked nondenominational services? Do you [...] Sign Reading Time Taken Comments Blood Pressure 121/54 06/01/2013 5:00 PM CDT Pulse - - Temperature - - Respiratory Rate 12 06/01/2013 5:00 PM CDT Oxygen Saturation 97% 06/01/2013 5:00 PM CDT Inhaled Oxygen Concentration - - Weight - - Height - - Body Mass Index - - documented in this encounter Medications at Time of Discharge Medication Sig Dispensed Refills Start Date End Date Cholecalciferol (VITAMIN Take 1 tablet by 0 01/20/2017 D) 2000 UNIT tablet mouth daily. gabapentin (NEURONTIN) 100 Take 100 mg by 0 01/20/2017 MG capsule mouth 3 times daily. 1 tab q am, 1 tab q noon, and 2 tabs Q HS hydrocortisone 2.5 % Apply topically 2 80 g 3 04/19/20 13 01/04/2014 creamIndications: Eczema times daily. ketoconazole (NIZORAL) 2 % Apply topically. 1 120 mL 1 0 03/10/2011 01/04/2014 shampooIndications: Squirt twice a Seborrheic dermatitis of week. Apply shampoo scalp to scalp and rinse after 5 minutes ketoprofen 10% in PLO Apply 4 times daily 120 g 9 06/2101/20/2017 10%Indications: Hip pain as needed. pramipexole (MIRAPEX) Take by mouth 3 0 04/12/2021 0.125 MG tablet times daily. VIAGRA 100 MG OR TABS 1 TABLET DAILY 30 0 09/16/ 005 01/20/2017 NEEDED VICODIN 5-500 MG OR ONE TO TWO TABLETS 0 07/26/20 08 01/20/2017 TABSIndications: EVERY 4 TO 6 HOURS Generalized weakness, NEEDED FOR PAIN Spasticity documented as of this encounter Consult Notes Jacob Simmons MD - 06/01/2013 3:26 PM CDT Pre-Endoscopy History and Physical Dejuan Rodriguez Date of : 1960 Age: [age] year old Date of Procedure: 06/01/2013 Primary care provider: Teresita Garcia Type of Endoscopy: colonoscopy Reason for Procedure: colon cancer screening Type of Anesthesia Anticipated: Moderate (conscious) sedation HPI: Dejuan is a 52 year old male who will be undergoing the above procedure. A history and physical has been performed. The patient's medications and allergies have been reviewed. The risks and benefits of the procedure and the sedation options and risks were discussed with thepatient. All questions were answered and informed consent was obtained. He denies a personal or family history of anesthesia complications or bleeding disorders. Allergies Allergen Reactions ??? Pollen Extract No current facility-administered medications for this encounter. Patient Active Problem List Diagnosis ??? MULTIPLE SCLEROSIS ??? CARDIOVASCULAR SCREENING; LDL GOAL LESS THAN 160 ??? Cannabis abuse ??? Mild major depression ??? Baclofen pump failure ??? Spasticity ??? Seborrheic dermatitis of scalp ??? Status post hip replacement ??? Lonl-Bhccc-Agvgxre disease ??? Atopic rhinitis Past Medical History Diagnosis Date ??? Multiple sclerosis sees neurology at [facility] ??? Juvenile osteochondrosis of hip and pelvis ??? Other specified disorder of bladder neurogenic- Dr. Mojica Past Surgical History Procedure Date ??? C total hip arthroplasty Hip Replacement, Total x2 due to Legg Perthes History Substance Use Topics ??? Smoking status: Never Smoker ??? Smokeless tobacco: Never Used ??? Alcohol Use: No Family History Problem Relation Age of Onset ??? C.A.D. Father Triple bypass ??? Neurological Mother Had MS in 1970 at age 30 REVIEW OF SYSTEMS: 5 point ROS negative except as noted above in HPI, including Gen., Resp., CV, GI & system review. PHYSICAL EXAM: There were no vitals taken for this visit. Estimated Body mass index is 28.24 kg/(m^2) as calculatedfrom the following: Height as of 06/21/12: 5' 7.5(1.715 m). Weight as of 06/21/12: 183 lb(83.008 kg). GENERAL APPEARANCE: healthy MENTAL STATUS: alert AIRWAY EXAM: Mallampatti Class I (visualization of the soft palate, fauces, uvula, anterior and posterior pillars) RESP: lungs clear to auscultation - no rales, rhonchi or wheezes CV: regular rates and rhythm DIAGNOSTICS: Not indicated IMPRESSION ASA Class 1 - Healthy patient, no medical problems PLAN: Colonoscopy The above has been forwarded to the consulting provider. Signed Electronically by: Jacob Simmons June 01, 2013 documented in this encounter Plan of Treatment Upcoming Encounters Date Type Specialty Care Team Description 08/18/2022 Virtual Visit [place] [address] [place] [address] (Wo rk) documented as of this encounter Procedures Procedure Name Priority Date/Time Associated Diagnosis Comme nts COLONOSCOPY Routine 06/01/2013 4:02 PM Results f or this CDT procedure are i n the results section . COLONOSCOPY 06/01/2013 3:56 PM screening CDT Special Needs Ref: Dr Teresita Garcia documented in this encounter Results COLONOSCOPY (06/01/2013 4:02 PM CDT) [facility] Method Time Signature COLONOSCOPY [facility] RAD IOLOGY RESULTS Patient Name: Dejuan alston ?Procedure Date: 06/01/2013 4:02:59 PM ? Date of : 1960 ?Admit Type: Outpatient ? Age: 52 ? Gender: Male ? Attending MD: Jacob Ramírez MD ? Procedure: ?Colonoscopy Indications: ?Screening for colorec nick malignant neoplasm Providers: ?Jacob Simmons MD Referring MD: ? Teresita Garcia Md, Medicines: ?Fentanyl 100 micrograms IV, Midazolam 2 mg IV Complications: ?No immediate complications Procedure: ?Pre-Anesthesia Assessment: ?- Prior to the procedure, a History and Physical ?was performed, and patient medications and ?allergies were reviewed. The patient is competent. ?The risks and benefits of the procedure and the ?sedation options and risks were discussed with the ?patient. All questions were answered and informed ?consent was obtained. Patient identification and ?proposed procedure were verified by the physician ?in the procedure room. Mental Status Examination: ?alert and oriented. Airway Examination: normal ?oropharyngeal airway and neck mobility. Respiratory ?Examination: clear to auscultation. CV Examination: ?normal. Prophylactic Antibiotics: The patient does ?not require prophylactic antibiotics. Prior ?Anticoagulants: The patient has taken no previous ?anticoagulant or antiplatelet agents. ASA Grade ?Assessment: II - A patient with mild systemic ?disease. After reviewing the risks and benefits, ?the patient was deemed in satisfactory condition to ?undergo the procedure. The anesthesia plan was to ?use moderate sedation / analgesia (conscious ?sedation). Immediately prior to administration of ?medications, the patient was re-assessed for ?adequacy to receive sedatives. The heart rate, ?respiratory rate, oxygen saturations, blood ?pressure, adequacy of pulmonary ventilation, and ?response to care were monitored throughout the ?procedure. The physical status of the patient was ?re-assessed after the procedure. ?After obtaining informed consent, the colonoscope ?was passed under direct vision. Throughout the ?procedure, the patient's blood pressure, pulse, and ?oxygen saturations were monitored continuously. The ?Colonoscope was introduced through the anus and ?advanced to the terminal ileum. The colonoscopy was ?performed without difficulty. The patient tolerated ?the procedure well. The quality of the bowel ?preparation was good. ? Findings: ? The colon (entire examined portio n) appeared normal. The terminal ileum ? appeared normal. ? Impression: ? - The entire examined colon is normal. ?- The examined portion of the ileum was normal. Recommendation: ? - Repeat colonoscopy in 10 years for surveillance. ? Jacob Simmons M.D. Jacob Simmons MD Signed Date: 06/01/2013 4:30:37 PM Number of Addenda: 0 Note Initiated On: 06/01/2013 4:02:59 PM Scope Withdrawal Time: 0 hours 10 minutes 20 seconds Scope Withdrawal Time: 0 hours 10 minutes 20 seconds Total Procedure Duration: 0 hours 16 minutes 7 seconds Total Procedure Duration: 0 hours 16 minutes 7 seconds Specimen (Source) Anatomical Collection Method Collection Time Re ceived Time Location / / Volume Laterality 06/01/2013 4:02 PM CDT Teresita Garcia MD PROCEDURES Performing Organization Address City/State/ZIP Code Phon e Number RADIOLOGY RESULTS documented in this encounter Visit Diagnoses Not on filedocumented in this encounter Active and Recently Administered Medications Times are shown in CDT. PRN Medication Order 05/30/2013 05/31/2013 06/01/2013 fentaNYL (SUBLIMAZE) injection (CANCELED) 1609 (Given - Provider: Jacob Simmons MD) PRN, Starting Thu06/01/13 at 1609, moderate to severe pain, Intra -procedure midazolam (VERSED) injection (CANCELED) 1609 (Given - Provider: Jacob Simmons MD) PRN, Starting Thu06/01/13 at 1609, anxiety, Intra-procedure sodium chloride (PF) 0.9% PF flush (CANCELED) 1609 (Given - Provider: Jacob Simmons MD) PRN, line flush, Starting Thu06/01/13 at 1609, Intra-procedure documented in this encounter Care Teams Early Childhood Education Coordinator Relationship Specialty Start Date End Date Teresita Garcia MD PCP - General Family Practice 01/22/11 [address] [place] [address] documented as of this encounter
--- OUTSIDE RECORDS SUMMARY | 2022-08-16 14:31 | XMS_ITS | Encounter Summary ---
:1960 Author Organization [place] Address [address] [place] [address] Care Team Providers Name Role Phone Teresita Garcia MD Primary Care Provider Encounter Details Date Type Department Care Team Description 07/07/2011 Orders Only [facility] Mul tiple sclerosis (H) [place] [facility] (Primary Dx) [address] [place] [address] Social History Tobacco Use Types [...] or relatives? How often do you attend scientologist or Not asked baptist services? Do you belong to any clubs or Not asked organizations such as scientologist groups, unions, fraternal or athletic groups, or [...] Virtual [place] [address] [place] [address] (Wo rk) documented as of this encounter Procedures Procedure Name Priority Date/Time Associated Comments Diagnosis VITAMIN D DEFICIENCY Routine 07/07/2011 1:47 PM Multiple scler osis Results for this SCREENING CDT (H) procedure are i n the results section. AST Routine 07/07/2011 1:47 PM Multiple sclerosis Res ults for this CDT (H) procedure are i n the results section. CBC WITH PLATELETS Routine 07/07/2011 1:47 PM Multiple scleros is Results for this CDT (H) procedure are i n the results section. documented in this encounter Results Vitamin D Deficiency (07/07/2011 1:47 PM CDT) Component Value Ref Test Analysis Performed At Patholo gist Range Method Time Signature 25 OH Vit D2 <5 ug/L [facility] 25 OH Vit D3 42 ug/L [facility] 25 OH Vit D <47 30 - 75 [facility] total Season, race, dietary intake, and treatm ent affect the concentration of ug/L [facility] 42-dteisuo-Hfxjbzt D. Values may decrease during michelle er months and increase [facility] during summer months. Values less than 30 ug/L may indicate Vitamin D deficiency. Specimen Anatomical Collection Method Collection Time Receive d Time (Source) Location / / Volume Laterality Blood specimen 07/07/2011 1:47 PM 011 1:48 (specimen) CDT PM CDT Ramón Shine MD LAB - BLOOD ORDERABLES Performing Organization Address City/State/ZIP Code Phon e Number [phone] [place] [address] LABS AST (07/07/2011 1:47 PM CDT) P athologist Signature AST 23 0 - 55 U/L [facility] Specimen Anatomical Collection Method Collection Time Receive d Time (Source) Location / / Volume Laterality Blood specimen 07/07/2011 1:47 PM 011 1:48 (specimen) CDT PM CDT Ramón Shine MD LAB - BLOOD ORDERABLES Performing Organization Address City/State/ZIP Code Phon e Number [facility] [address] [place] [address] [address] [facility] CBC with platelets (07/07/2011 1:47 PM CDT) P athologist Signature WBC 7.4 4.0 - 11.0 [place] 10e9/L [facility] RBC Count 4.82 4.4 - 5.9 [place] 10e12/L [facility] Hemoglobin 14.8 13.3 - [place] 17.7 g/dL [facility] Hematocrit 42.7 40.0 - [place] 53.0 % [facility] MCV 89 78 - 100 [place] fl [facility] MCH 30.7 26.5 - [place] 33.0 pg [facility] MCHC 34.7 31.5 - [place] 36.5 g/dL [facility] RDW 13.4 10.0 - [place] 15.0 % [facility] Platelet Count 178 150 - 450 [facility] 10[facility]L [facility] Specimen Anatomical Collection Method Collection Time Receive d Time (Source) Location / / Volume Laterality Blood specimen 07/07/2011 1:47 PM 011 1:48 (specimen) CDT PM CDT Ramón Shine MD LAB - BLOOD ORDERABLES Performing Organization Address City/State/ZIP Code Phon e Number [facility] [address] [place] [address] [facility] documented in this encounter Visit Diagnoses Diagnosis Multiple sclerosis (H) - Primary Multiple sclerosis documented in this encounter Care Teams Cigar Patcher Relationship Specialty Start Date End Date Teresita Garcia MD PCP - General Family Practice 01/22/[id number] [place] [address] documented as of this encounter
--- OUTSIDE RECORDS SUMMARY | 2022-08-16 14:31 | XMS_ITS | Encounter Summary ---
:1960 Author Organization [place] Address [facility] [place] [address] Care Team Providers Name Role Phone Teresita Garcia MD Primary Care Provider Encounter Details Date Type Department Care Team Description 04/10/2014 Orders Only [facility] Mul tiple sclerosis (H) [place] [facility] (Primary Dx) [address] [place] [address] Social History Tobacco Use Types [...] do you attend zoroastrianism or Not asked alevism services? Do you [...] Virtual Visit [place] [address] [place] [address] (Wo rk) documented as of this encounter Procedures Procedure Name Priority Date/Time Associated Comments Diagnosis VITAMIN D DEFICIENCY Routine 04/10/2014 2:17 PM Multiple Scler osis Results for this SCREENING CDT (H) procedure are i n the results section. documented in this encounter Results Vitamin D Deficiency (04/10/2014 2:17 PM CDT) athologist Signature Vitamin D 50 30 - 75 [facility] Deficiency ug/L [place] [facility] screening Comment: Season, race, dietary intake, and treatm ent affect the concentration of 14-rujjovc-Soopdnj D. Values may decrea se during winter months and increase during summer months. Values less than 30 ug/L may indicate Vitamin D deficiency. Vitamin D determiniation is routinely p erformed by an immunoassay specific for 25 hydroxyvitamin D3. ??If an individua l is on vitamin D2 (ergocalciferol) supplementation, please specify 25 OH v itamin D2 and D3 level determination by LCMSMS test VITD23. ??For questions, pl ease contact the laboratory at [phone]. Specimen Anatomical Collection Method Collection Time Receive d Time (Source) Location / / Volume Laterality Blood specimen 04/10/2014 2:17 PM 014 2:20 (specimen) CDT PM CDT Lab Non-Fv Credentialed Provider LAB - BLOOD ORDERABLE S Performing Organization Address City/State/ZIP Code Phon e Number [facility] [address] [place] [address] [facility] documented in this encounter Visit Diagnoses Diagnosis Multiple sclerosis (H) - Primary Multiple sclerosis documented in this encounter Care Teams Early Childhood Special Educator Relationship Specialty Start Date End Date Teresita Garcia MD PCP - General Family Practice 01/22/11 [address] [place] [address] documented as of this encounter
--- OUTSIDE RECORDS SUMMARY | 2022-08-16 14:31 | XMS_ITS | Encounter Summary ---
:1960 Author Organization [place] Address [facility] [place] [address] Care Team Providers Name Role Phone Teresita Garcia MD Primary Care Provider Reason for Visit Reason Comments Shoulder Injury left shoulder pain - fell on it x2 days Encounter Details Date Type Department Care Team Description 09/15/2014 Office Visit [facility] Teresita Garcia MD Shoulder injury, left, initial encounter (Primary Dx); Clinic [address] Mild major depression (H) [address] [place] [phone] Social History Tobacco Use Types Packs/Day [...] or relatives? How often do you attend jew or Not asked evangelical services? Do you belong to any clubs or Not asked organizations such as jew groups, unions, fraternal or athletic groups, or [...] Sign Reading Time Taken Comments Blood Pressure 116/82 09/15/2014 1:59 PM SLURRY MAN Pulse 92 09/15/2014 1:59 PM SLURRY MAN Temperature 36.8 ??C (98.3 ??F) 09/15/2014 1:59 PM SLURRY MAN Respiratory Rate 20 09/15/2014 1:59 PM SLURRY MAN Oxygen Saturation 95% 09/15/2014 1:59 PM SLURRY MAN Inhaled Oxygen Concentration - - Weight 77.1 kg (170 lb) 09/15/2014 1:59 PM SLURRY MAN Height 171.5 cm (5' 7.5) 09/15/2014 1:59 PM SLURRY MAN Body Mass Index 26.23 09/15/2014 1:59 PM SLURRY MAN documented in this encounter Progress Notes Teresita Garcia MD - 09/15/2014 1:53 PM CST SUBJECTIVE: Dejuan Rodriguez is a 53 year old male who presents to clinic today for the following health issues: Musculoskeletal problem/pain ?? Duration: 2 days ?? Description Location: left shoulder ?? Intensity: severe ?? Accompanying signs and symptoms: pain in the L shoulder. ?? History Previous similar problem: no Previous evaluation: none ?? Precipitating or alleviating factors: Trauma or overuse: YES- has MS and fell, he was standing on the counter, when he lost his balance, then he landed on the L shoulder. He felt that his shoulder was out then he pushed it in. Aggravating factors include: lifting ?? Therapies tried and outcome: nothing Problem list and histories reviewed & adjusted, as indicated. Additional history: as documented Patient Active Problem List Diagnosis ??? MULTIPLE SCLEROSIS ??? CARDIOVASCULAR SCREENING; LDL GOAL LESS THAN 160 ??? Cannabis abuse ??? Mild major depression ??? Baclofen pump failure ??? Spasticity ??? Seborrheic dermatitis of scalp ??? Status post hip replacement ??? Shzi-Meeej-Ehwyqos disease ??? Atopic rhinitis Past Surgical History Procedure Laterality Date ??? C total hip arthroplasty Hip Replacement, Total x2 due to Legg Perthes ??? Colonoscopy 06/01/2013 Procedure: COLONOSCOPY; Colonoscopy; Surgeon: Jacob Simmons MD; Location: GI History Substance Use Topics ??? Smoking status: Never Smoker ??? Smokeless tobacco: Never Used ??? Alcohol Use: No Family History Problem Relation Age of Onset ??? C.A.D. Father Triple bypass ??? Neurological Mother Had MS in 1970 at age 30 ROS: OBJECTIVE: BP 116/82 Pulse 92 Temp(Src) 98.3 ??F (36.8 ??C) (Oral) Resp 20 Ht 5' 7.5 (1.715 m) Wt 170 lb (77.111 kg) BMI 26.22 kg/m2 SpO2 95% Body mass index is 26.22 kg/(m^2). Shoulder exam:inspection: normal. Palpation : positive joint tenderness. ROM showed :Abduction:very limited Anterior rotation:limited and painful Internal rotation:not done. Rotator cuff/supraspinatous strength reduced secondary to pain Drop arm sign not done. Impingement test : Neer positive Solorio psoitive Instability test : sulcus sign (more than Half inch) negaative, apprehension,release sign :not done Xray is negative for Fx. ASSESSMENT/PLAN: 1. Mild major depression - DEPRESSION ACTION PLAN (DAP) 2. Shoulder injury, left, initial encounter Mostly sever bruise. - XR Shoulder Left 2 Views; Future - traMADol (ULTRAM) 50 MG tablet; Take 1 tablet (50 mg) by mouth every 6 hours as needed for moderate pain Dispense: 20 tablet; Refill: 0 - diclofenac (VOLTAREN) 1 % GEL; Apply 4 grams shoulder four times daily using enclosed dosing card.Dispense: 100 g; Refill: 1 - ORDER FOR DME; Equipment being ordered: sling. Dispense: 1 Device; Refill: 0 Follow up in 14 days if symptoms persist, sooner if symptoms worsen or new ones develops, pt may contact us over the phone for any questions or concerns. Teresita Garcia MD, MD [facility] RY MAN documented in this encounter Nursing Notes Yumiko Camp, ORE BRIDGE OPERATOR - 09/15/2014 2:02 PM CST Chief Complaint Patient presents with ??? Shoulder Injury left shoulder pain - fell on it x2 days Initial BP 116/82 Pulse 92 Temp(Src) 98.3 ??F (36.8 ??C) (Oral) Resp 20 Ht 5' 7.5 (1.715 m) Wt 170 lb (77.111 kg) BMI 26.22 kg/m2 SpO2 95% Estimated body mass index is 26.22 kg/(m^2) as calculated from the following: Height as of this encounter: 5' 7.5 (1.715 m). Weight as of this encounter: 170 lb (77.111 kg).. BP completed using cuff size large Yumiko Camp CMA RY MAN documented in this encounter Plan of Treatment Upcoming Encounters Date Type Specialty Care Team Description 08/18/[address] [facility] [place] [address] [place] [address] (Wo rk) documented as of this encounter Results XR Shoulder Left 2 Views (09/15/2014 2:26 PM SLURRY MAN) Anatomical Region Laterality Modality Shoulder, Chest, Arm Left Computed Radiograph y Specimen (Source) Anatomical Location Collection Method / Collectio n Time Received Time / Laterality Volume Impressions 09/15/2014 3:48 PM SLURRY MAN IMPRESSION: Negative. KELLY GILBERT MD Narrative 09/15/2014 3:48 PM SLURRY MAN XR SHOULDER 2 VIEW LEFT 09/15/2014 3:48 PM HISTORY: Injury, other and unspecified, shoulder and upper arm ? Procedure Note Kelly Gilbert MD - 09/15/2014Formatt ing of this note might be different from the original. XR SHOULDER 2 VIEW LEFT 09/15/2014 3:48 PM HISTORY: Injury, other and unspecified, shoulder and upper arm IMPRESSION IMPRESSION: Negative. KELLY GILBERT MD Teresita Garcia MD IMG DIAGNOSTIC IMAGING ORDER REBA documented in this encounter Visit Diagnoses Diagnosis Shoulder injury, left, initial encounter - Primary Mild major depression (H) Major depressive disorder, single episod e, mild Shoulder injury, left, initial encounter documented in this encounter Care Teams Miscellaneous Machine Operator Relationship Specialty Start Date End Date Teresita Garcia MD PCP - General Family Practice 01/22/11 [address] [place], [place] [id number] documented as of this encounter
--- OUTSIDE RECORDS SUMMARY | 2022-08-16 14:31 | XMS_ITS | Encounter Summary ---
:1960 Author Organization [place] Address [address] [facility] [place] [address] Care Team Providers Name Role Phone Teresita Garcia MD Primary Care Provider Reason for Referral Referral not Required - Closed Specialty Diagnoses / Procedures Referred By Contact Refer red To Contact Diagnoses Hip pain Teresita Garcia MD [facility] [id number] [place] [address] [facility], [place] [phone] [facility] [address] [place] [address] Phone: Fax: Referral ID Status Reason Start Date Expiration Date Visits Requ ested Visits Authorized [id number] Closed 06/21/2012 12/18/2012 1 1 Reason for Visit Reason Comments Musculoskeletal Problem right hip pain Health Maintenance referral generated for colon oscopy--phq and DAP completed today Encounter Details Date Type Department Care Team Description 06/21/2012 Office Visit [facility] Teresita Garcia MD Hip pain (Primary Dx); Clinic [place] [id number] [place] [address] Mild major depression (H) [address] [place] [phone] Social History Tobacco Use Types Packs/Day Years [...] do you attend adventist or Not asked advent services? Do you belong to any clubs [...] for the very basics like Not cami lozanoy hard 07/05/2020 food, housing, medical care, and [...] Sign Reading Time Taken Comments Blood Pressure 118/78 06/21/2012 1:11 PM CDT Pulse 80 06/21/2012 1:11 PM CDT Temperature 36.8 ??C (98.2 ??F) 06/21/2012 1:11 PM CDT Respiratory Rate 20 06/21/2012 1:11 PM CDT Oxygen Saturation - - Inhaled Oxygen Concentration - - Weight 83 kg (183 lb) 06/21/2012 1:11 PM CDT Height 171.5 cm (5' 7.5) 06/21/2012 1:11 PM CDT Body Mass Index 28.24 06/21/2012 1:11 PM CDT documented in this encounter Progress Notes Teresita Garcia MD - 06/21/2012 1:18 PM CDT SUBJECTIVE: Dejuan Rodriguez, a 51 year old male scheduled an appointment to discuss the following issues: MILD MAJOR DEPRESSION HIP PAIN R hip pain dull achy, all the time, hurt more when he put weight on it. Worse when he switch weight from foot to another. Past Medical History Diagnosis Date ??? Multiple sclerosis sees neurology at [facility] ??? Juvenile osteochondrosis of hip and pelvis ??? Other specified disorder of bladder neurogenic- Dr. Mojica Current Outpatient Prescriptions Medication Sig ??? pramipexole (MIRAPEX) 0.125 MG tablet Take by mouth 3 times daily. ??? gabapentin (NEURONTIN) 100 MG capsule Take 100 mg by mouth 3 times daily. 1 tab q am, 1 tab q noon, and 2 tabs Q HS ??? ketoconazole (NIZORAL) 2 % shampoo Apply topically. 1 Squirt twice a week. Apply shampoo to scalp and rinse after 5 minutes ??? Cholecalciferol (VITAMIN D) 2000 UNIT tablet Take 1 tablet by mouth daily. ??? VICODIN 5-500 MG OR TABS ONE TO TWO TABLETS EVERY 4 TO 6 HOURS NEEDED FOR PAIN ??? TYSABRI 300 MG/15ML IV CONC 300 MG EVERY 4 WEEKS ??? VIAGRA 100 MG OR TABS 1 TABLET DAILY NEEDED History Substance Use Topics ??? Smoking status: Never Smoker ??? Smokeless tobacco: Never Used ??? Alcohol Use: No ROS: C: NEGATIVE for fever, chills R: NEGATIVE for significant cough or SOB GI: NEGATIVE for nausea, abdominal pain, heartburn, or change in bowel habits OBJECTIVE: BP 118/78 Pulse 80 Temp(Src) 98.2 ??F (36.8 ??C) (Oral) Resp 20 Ht 5' 7.5 (1.715 m) Wt 183 lb (83.008 kg) BMI 28.24 kg/m2 EXAM: Constitutional: healthy, alert and no distress JOINT/EXTREMITIES: hip exam : limited internal rotation, JYOTI and FADIR normal, tapping sign is negative, no local tenderness,. ASSESSMENT/PLAN: Mild major depression (primary encounter diagnosis) Comment: Plan: DEPRESSION ACTION PLAN (DAP) Hip pain Comment: mostly related to artificial hip/ Plan: topical pain medicine, tylenol as needed. If the symptoms persist, will refer to orthopedic surgery. documented in this encounter Nursing Notes 06/21/2012 1:00 PM CDT >> JACQUELINE RICKETTS Mon Jun 21, 2012 1:16 PM Patient presents with: Musculoskeletal Problem - right hip pain Initial BP 118/78 Pulse 80 Temp(Src) 98.2 ??F (36.8 ??C) (Oral) Resp 20 Ht 5' 7.5 (1.715 m) Wt 183 lb (83.008 kg) BMI 28.24 kg/m2 Estimated Body mass index is 28.24 kg/(m^2) as calculated from the following: Height as of this encounter: 5' 7.5(1.715 m). Weight as of this encounter: 183 lb(83.008 kg).. BP completed using cuff size large. Jacqueline Ricketts/YANELI documented in this encounter Plan of Treatment Upcoming Encounters Date Type Specialty Care Team Description 08/18/2022 Virtual Visit [place] [address] [place], [place] [phone] (Wo rk) Scheduled Referrals Name Type Priority [facility] Diagnoses [facility] Referral Routine Hip pain Order ed: 06/21/2012 REFERRAL +/- PROCEDURE documented as of this encounter Procedures Procedure Name Priority Date/Time Associated Diagnosis Comme nts XR HIP RIGHT 2-3 Routine 06/21/2012 1:37 PM Hip pain Resul ts for this VIEWS CDT procedure are i n the results section. documented in this encounter Results X-ray rt hip uni 2+ vw (06/21/2012 1:37 PM CDT) Anatomical Region Laterality Modality Abdomen/Pelvis Right Other Specimen (Source) Anatomical Collection Method Collection Time Re ceived Time Location / / Volume Laterality 06/21/2012 1:37 PM CDT Impressions 06/21/2012 3:48 PM CDT HIP GE 2 VIEWS RIGHT 06/21/2012 1:37 PM HISTORY: ??PAIN IN JOINT, PELVIC REGION AND THIGH, IMPRESSION: STEFANIE well-positioned. Exam ot herwise unremarkable. Teresita Garcia MD IMG DIAGNOSTIC IMAGING ORDER REBA documented in this encounter Visit Diagnoses Diagnosis Hip pain - Primary Pain in joint, pelvic region and thigh Mild major depression (H) Major depressive disorder, single episod e, mild documented in this encounter Care Teams [employer] Reading Teacher Relationship Specialty Start Date End Date Teresita Garcia MD PCP - General Family Practice 01/22/11 [address] [place] [address] documented as of this encounter
--- OUTSIDE RECORDS SUMMARY | 2022-08-16 14:31 | XMS_ITS | Encounter Summary ---
:1960 Author Organization [facility] Address [address] [place] [address] Care Team Providers Name Role Phone Teresita Garcia MD Primary Care Provider Reason for Referral Referral not Required - Closed Specialty Diagnoses / Procedures Referred By Contact Refer red To Contact Diagnoses Screen for colon cancer Teresita Garcia MD [facility] [id number] [place] [address] [phone] [place] [address] Phone: Fax: Referral ID Status Reason Start Date Expiration Date Visits Requ ested Visits Authorized [id number] Closed 04/19/2013 10/16/2013 1 1 Reason for Visit Reason Comments Pre-Op Exam surgery 05/04/13 [place] Encounter Details Date Type Department Care Team Description 04/19/2013 Office Visit [facility] Teresita Garcia MD Preop general physical exam (Primary Dx) ; Clinic [place] [address] [place] [address]; [address] [place], [place] for [place] [address] [phone] Social History Tobacco Use Types Packs/Day Years [...] do you attend restorationism or Not asked samaritan services? Do you belong to any clubs or Not asked organizations such as restorationism groups, unions, fraSpiracur or athletic groups, or school groups? How [...] Sign Reading Time Taken Comments Blood Pressure 116/80 04/19/2013 11:06 AM CDT Pulse 72 04/19/2013 11:06 AM CDT Temperature 36.7 ??C (98 ??F) 04/19/2013 11:06 AM CDT Respiratory Rate 16 04/19/2013 11:06 AM CDT Oxygen Saturation - - Inhaled Oxygen Concentration - - Weight - - Height - - Body Mass Index - - documented in this encounter Progress Notes Teresita Garcia MD - 04/19/2013 11:12 AM CDT [place] [address] Dept: [phone] PRE-OP EVALUATION: Today's date: 04/19/2013 Dejuan Rodriguez (: 1960) presents for pre-operative evaluation assessment as requested byDr. Roy. He requires evaluation and anesthesia risk assessment prior to undergoing surgery/procedure for treatment of urology problem . Proposed procedure: Cysto Bladder Date of Surgery/ Procedure: 05/04/13 Time of Surgery/ Procedure: [facility] [place] Hospital/Surgical Facility: [facility] Fax number for surgical facility: [phone] Primary Physician: Teresita Garcia Type of Anesthesia Anticipated: General Patient has a Health Care Directive or Living Will: NO HPI: 1. NO - Do you have a history of heart attack, stroke, stent, bypass or surgery on an artery in the head, neck, heart or legs? 2. NO - Do you ever have any pain or discomfort in your chest? 3. NO - Have you ever had a severe pain across the front of your chest lasting for half an hour or more? 4. NO - Do you have a history of Congestive Heart Failure? 5. NO - Are you troubled by shortness of breath when: walking on the level/ up a slight hill/ at night? 6. NO - Does your chest ever sound wheezy or whistling? 7. NO - Do you currently have a cold, bronchitis or other respiratory infection? 8. NO - Have you had a cold, bronchitis or other respiratory infection within the last 2 weeks? 9. NO - Do you usually have a cough? 10. NO - Do you sometimes get pains in the calves of your legs when you walk? 11. NO - Do you or anyone in your family have previous history of blood clots? 12. NO - Do you or does anyone in your family have a serious bleeding problem such as prolonged bleeding following surgeries or cuts? 13. NO - Have you ever had problems with anemia or been told to take iron pills? 14. NO - Have you had any abnormal blood loss such as black, tarry or bloody stools, or abnormal vaginal bleeding? 15. YES - Have you ever had a blood transfusion? 16. NO - Have you or any of your relatives ever had problems with anesthesia? 17. YES - Do you have sleep apnea, excessive snoring or daytime drowsiness? 18. NO - Do you have any prosthetic heart valves? 19. YES - Do you have prosthetic joints? Hips 20. NO - Is there any chance that you may be ? See problem list for active medical problems. Problems all longstanding and stable, except as noted/documented. See ROS for pertinent symptoms related to these conditions. . MEDICAL HISTORY: Patient Active Problem List Diagnosis Date Noted ??? Status post hip replacement 05/14/2011 Bilateral (Problem list name updated by automated process. Provider to review and confirm.) ??? 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 Atopic rhinitis 05/14/2011 (Problem list name updated by automated process. Provider to review and confirm.) ??? 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 Spasticity 03/10/2011 ??? Seborrheic dermatitis of scalp 03/10/2011 ??? Cannabis abuse 12/13/2010 Does not smoke daily ??? Mild major depression 12/13/2010 ??? CARDIOVASCULAR SCREENING; LDL GOAL LESS THAN 160 07/28/2010 ??? MULTIPLE SCLEROSIS 09/01/2005 Past Medical History Diagnosis Date ??? Multiple sclerosis sees neurology at [facility] ??? Juvenile osteochondrosis of hip and pelvis ??? Other specified disorder of bladder neurogenic- Dr. Mojica Past Surgical History Procedure Date ??? C total hip arthroplasty Hip Replacement, Total x2 due to Legg Perthes Current Outpatient Prescriptions Medication Sig ??? pramipexole (MIRAPEX) 0.125 MG tablet Take by mouth 3 times daily. ??? gabapentin (NEURONTIN) 100 MG capsule Take 100 mg by mouth 3 times daily. 1 tab q am, 1 tab q noon, and 2 tabs Q HS ??? ketoprofen 10% in PLO 10% Apply 4 times daily as needed. ??? ketoconazole (NIZORAL) 2 % shampoo Apply [...] for chest pain, palpitations or peripheral edema EXAM: BP 116/80 Pulse 72 Temp 98 ??F (36.7 ??C) (Oral) Resp 16 GENERAL APPEARANCE: healthy, alert and no distress HENT: ear canals and TM's normal and nose and mouth without ulcers or lesions RESP: lungs clear to auscultation - no rales, rhonchi or wheezes CV: regular rate and rhythm, normal S1 S2, no S3 or S4 and no murmur, click or rub ABDOMEN: soft, nontender, no HSM or masses and bowel sounds normal MS: extremities normal- no gross deformities noted NEURO: weakness of legs mainly and upper extremities to lesser extent. Skin : pinpoint papules on the forearms. DIAGNOSTICS: Labs Resulted Today: Results for orders placed in visit on 04/19/13 CBC WITH PLATELETS Component Value Range WBC 6.6 4.0 - 11.0 10e9/L RBC Count 4.77 4.4 - 5.9 10e12/L Hemoglobin 15.0 13.3 - 17.7 g/dL Hematocrit 42.8 40.0 - 53.0 % MCV 90 78 - 100 fl MCH 31.4 26.5 - 33.0 pg MCHC 35.0 31.5 - 36.5 g/dL RDW 12.7 10.0 - 15.0 % Platelet Count 175 150 - 450 10e9/L Labs Drawn and in Process: Unresulted Labs Ordered in the Past 30 Days of this Admission Date and Time Order Name Status Description 04/19/2013 1148 UA MACROSCOPIC WITH REFLEX TO MICROSCOPIC AND CULTURE In process 04/19/2013 1148 HEPATIC PANEL In process 04/19/2013 1147 BASIC METABOLIC PANEL In process IMPRESSION: Reason for surgery/procedure: bladder stone Diagnosis/reason for consult: pre op The proposed surgical procedure is considered INTERMEDIATE risk. REVISED CARDIAC RISK INDEX The patient has the following serious cardiovascular risks for perioperative complications such as ([place], PE, VFib and 3?? AV Block): No serious cardiac risks INTERPRETATION: 0 risks: Class I (very low risk - 0.4% complication rate) The patient has the following additional risks for perioperative complications: No identified additional risks No diagnosis found. RECOMMENDATIONS: --Approval given to proceed with proposed procedure, without further diagnostic evaluation Signed Electronically by: Teresita Garcia MD, MD Copy of this evaluation report is provided to requesting physician. [facility] Preop Guidelines 2013 documented in this encounter Nursing Notes 04/19/2013 11:00 AM CDT >> RACHELLE Soto Apr 19, 2013 11:12 AM Patient presents with: Pre-Op Exam - surgery 8/7/13 [place] Initial BP 116/80 Pulse 72 Temp 98 ??F (36.7 ??C) (Oral) Resp 16 Estimated Body mass index is 28.24 kg/(m^2) as calculated from the following: Height as of 06/21/12: 5' 7.5(1.715 m). Weight as of 06/21/12: 183 lb(83.008 kg). BP completed using cuff size: regular RA SMA Sarita documented in this encounter Miscellaneous Notes Addendum Note - Belen Rodrigues - 04/19/2013 12:18 PM CDT Addended by: BELEN RODRIGUES on: 04/19/2013 12:18 PM Modules accepted: Orders documented in this encounter Plan of Treatment Upcoming Encounters Date Type Specialty Care Team Description 08/18/2022 Virtual Visit [place] [address] [place] [address] (Wo rk) Scheduled Referrals Name Type Priority Associated Diagnoses Order S [facility] GASTROENTEROLOGY ADULT Referral Routine Screen for colon O rdered: 04/19/2013 REFERRAL +/- PROCEDURE cancer documented as of this encounter Procedures Procedure Name Priority Date/Time Associated Comments Diagnosis UA MACROSCOPIC WITH Routine 04/19/2013 11:53 Preop general Res ults for this REFLEX TO MICROSCOPIC AM CDT physical exam proce dure are in AND CULTURE the results section. HEPATIC FUNCTION Routine 04/19/2013 11:52 Preop general Result s for this PANEL AM CDT physical exam procedure are in the results section. BASIC METABOLIC PANEL Routine 04/19/2013 11:52 Preop general R esults for this AM CDT physical exam procedure are in the results section. CBC WITH PLATELETS Routine 04/19/2013 11:52 Preop general Resu lts for this AM CDT physical exam procedure are in the results section. documented in this encounter Results *UA reflex to Microscopic and Culture (04/19/2013 11:53 AM CDT) [facility] Method Time Signature Color Urine Yellow [facility] Appearance Urine Clear [facility] Glucose Urine Negative NEG mg/dL [facility] Bilirubin Urine Negative NEG [facility] Ketones Urine Negative NEG mg/dL [facility] Specific [place] 1.010 1.003 - [place] Urine 1.035 [facility] Blood Urine Negative NEG [facility] pH Urine 6.0 5.0 - 7.0 [place] pH [facility] Protein Albumin Negative NEG mg/dL [place] Urine [facility] Urobilinogen 0.2 0.2 - 1.0 [place] Urine EU/dL [facility] Nitrite Urine Negative NEG [facility] Leukocyte Negative NEG [place] Esterase Urine [facility] Source Midstream [place] Urine [facility] Specimen Anatomical Collection Method Collection Time Receive d Time (Source) Location / / Volume Laterality Urine specimen 04/19/2013 11:53 3 (specimen) AM CDT 11:54 AM CDT Teresita Garcia MD LAB - URINE ORDERABLES Performing Organization Address City/State/ZIP Code Phon e Number [facility] [address] [place] [address] [facility] [address] [place] [address] Hepatic panel (04/19/2013 11:52 AM CDT) athologist Signature Bilirubin 0.0 0.0 - 0.3 [place] Conjugated mg/dL [facility] Bilirubin Delta 0.1 0.0 - 0.4 [place] mg/dL [facility] Bilirubin Total 1.2 0.2 - 1.3 [place] mg/dL [facility] Albumin 4.5 3.9 - 5.1 [place] g/dL [facility] Comment: Reference range changed on 05/30. Protein Total 7.5 6.8 - 8.8 g/dL [place] [facility] Comment: As of 08, reference range reflects plasma specimen type. Alkaline Phosphatase 65 40 - 150 U/L [facility] ALT 37 0 - 70 U/L [place] [facility] AST 23 0 - 45 U/L [facility] Specimen Anatomical Collection Method Collection Time Receive d Time (Source) Location / / Volume Laterality Blood specimen 04/19/2013 11:52 3 (specimen) AM CDT 11:53 AM CDT Teresita Garcia MD LAB - BLOOD ORDERABLES Performing Organization Address City/[facility]/ZIP Code Phon e Number [facility] [address] [place] [address] [phone] [facility] [address] [facility] [place] [address] (ABNORMAL) Basic metabolic panel (04/19/2013 11:52 AM CDT) athologist Signature Sodium 144 133 - 144 [place] mmol/L [facility] Potassium 4.1 3.4 - 5.3 [place] mmol/L [facility] Chloride 105 94 - 109 [place] mmol/L [facility] Carbon Dioxide 27 20 - 32 [place] mmol/L [facility] Anion Gap 12 6 - 17 [place] mmol/L [facility] Glucose 103 (H) 60 - 99 [place] mg/dL [facility] Urea Nitrogen 13 7 - 30 [place] mg/dL [facility] Creatinine 1.09 0.66 - [facility] 1.25 mg/dL [facility] GFR Estimate 71 >60 [place] mL/min/1.7 [facility] m2 LAB GFR Estimate If 86 >60 [place] Black mL/min/1.7 [facility] m2 LAB Calcium 9.7 8.5 - 10.4 [place] mg/dL [facility] Specimen Anatomical Collection Method Collection Time Receive d Time (Source) Location / / Volume Laterality Blood specimen 04/19/2013 11:52 3 (specimen) AM CDT 11:53 AM CDT Teresita Garcia MD LAB - BLOOD ORDERABLES Performing Organization Address City/State/ZIP Code Phon e Number [facility] [address] [place] [address] [phone] [facility] [address] [facility] [place] [address] CBC with platelets (04/19/2013 11:52 AM CDT) P athologist Signature WBC 6.6 4.0 - 11.0 [place] 10e9/L [facility] RBC Count 4.77 4.4 - 5.9 [place] 10e12/L [facility] Hemoglobin 15.0 13.3 - [place] 17.7 g/dL [facility] Hematocrit 42.8 40.0 - [place] 53.0 % [facility] MCV 90 78 - 100 [facility] MCH 31.4 26.5 - [place] 33.0 pg [facility] MCHC 35.0 31.5 - [place] 36.5 g/dL [facility] RDW 12.7 10.0 - [place] 15.0 % [facility] Platelet Count 175 150 - 450 [facility] 10e9/L [facility] Specimen Anatomical Collection Method Collection Time Receive d Time (Source) Location / / Volume Laterality Blood specimen 04/19/2013 11:52 3 (specimen) AM CDT 11:53 AM CDT Teresita Garcia MD LAB - BLOOD ORDERABLES Performing Organization Address City/State/ZIP Code Phon e Number [facility] [address] [place] [address] [facility] [address] [place] [address] documented in this encounter Visit Diagnoses Diagnosis Preop general physical exam - Primary Other specified pre-operative examinatio n Eczema Contact dermatitis and other eczema, due to unspecified cause Screen for colon cancer Special screening for malignant neoplasm s, colon documented in this encounter Care Teams Manager General Relationship Specialty Start Date End Date Teresita Garcia MD PCP - General Family Practice 01/22/11 [address] [place] [address] documented as of this encounter
--- OUTSIDE RECORDS SUMMARY | 2022-08-16 14:31 | XMS_ITS | Encounter Summary ---
:1960 Author Organization [facility] Address [facility] [place] [address] Care Team Providers Name Role Phone Teresita Garcia MD Primary Care Provider Reason for Visit Reason Onset Date Comments Orders 2013 [facility] Encounter Details Date Type Department Care Team Description 2013 Telephone [facility] Teresita Garcia MD Orders ([facility] [address]) [address] [place] [address] [phone] Social History Tobacco Use Types Packs/Day Years [...] do you attend evangelical or Not asked shinto services? Do you [...] this encounter Miscellaneous Notes Telephone Encounter - Lalita Ricketts CMA - 12/20/2013 7:33 AM CDT Contacted patient to be able to complete form, he states he changes catheter every time he urinates,so he changes up to 10 times per day, form completed and faxed Lalita Ricketts/YANELI [place] Telephone Encounter - Malena Hankins - 2013 1:53 PM CDT Recd 1 page fax from [employer]. Please complete and sign Urological Supplies Prescriptionform and fax to [phone]. Form in AA folder at [employer]. Malena Hankins Automotive Service Management Teacher documented in this encounter Plan of Treatment Upcoming Encounters Date Type Specialty Care Team Description 08/18/2022 Virtual Visit [place] [address] [place] [address] (Wo rk) documented as of this encounter Visit Diagnoses Not on filedocumented in this encounter Care Teams Retirement Actuary Relationship Specialty Start Date End Date Teresita Garcia MD PCP - General Family Practice 01/22/11 [address] [place] [address] documented as of this encounter
--- OUTSIDE RECORDS SUMMARY | 2022-08-16 14:31 | XMS_ITS | Encounter Summary ---
:1960 Author Organization [place] Address [facility] [place] [address] Care Team Providers Name Role Phone Teresita Garcia MD Primary Care Provider Reason for Visit Reason Onset Date Comments Medication Request 09/26/2014 Shoulder Pain 09/26/2014 Encounter Details Date Type Department Care Team Description 09/26/[address] [facility] Teresita Garcia MD Medication Request; [facility] [place] [id number] [place] [address] Shoulder Pain [address] [place] [phone] Social History Tobacco Use Types Packs/Day Years [...] or relatives? How often do you attend taoism or Not asked temple services? Do you belong to any clubs or Not asked organizations such as taoism groups, unions, fraternal or athletic groups, or [...] this encounter Miscellaneous Notes Telephone Encounter - Ingrid Vallejo MA - 09/27/2014 9:56 AM CST LM that request was done and sent to pharmacy. Ingrid Vallejo CMA ULTING MARINE ENGINEER Telephone Encounter - Teresita Garcia MD - 09/27/2014 8:04 AM CST We can try anti-inflammatory, if it is ok with the MS physician. I will send a prescription for him. ULTING MARINE ENGINEER Telephone Encounter - Mary More RN - 09/26/2014 12:52 PM CST Patient calling and states was in for his left shoulder on 09/15/14. States barely any better than when he was in. Was in for his Solu-Medrol injection for his MS on 09/20/14 and that helped his shoulder for a few days. Nurse there felt his shoulder and was warm to touch. She feels inflamed and told him to call back and get anti-inflammatory. Shoulder not red. Tramadol does not help for the pain. He would like to try anti-inflammatory med for his shoulder. Please advise. Call patient back at [phone]. Mary More RN ULTING MARINE ENGINEER documented in this encounter Plan of Treatment Upcoming Encounters Date Type Specialty Care Team Description 08/18/2022 Virtual Visit [place] [address] [place] [address] (Wo rk) documented as of this encounter Visit Diagnoses Diagnosis Left shoulder pain - Primary Pain in joint, shoulder region documented in this encounter Care Teams Screwmaker Automatic Relationship Specialty Start Date End Date Teresita Garcia MD PCP - General Family Practice 01/22/11 [address] [place] [address] documented as of this encounter
--- OUTSIDE RECORDS SUMMARY | 2022-08-16 14:31 | XMS_ITS | Encounter Summary ---
:1960 Author Organization [facility] Address [address] [facility] [place] [address] Care Team Providers Name Role Phone Teresita Garcia MD Primary Care Provider Reason for Visit Auth/Cert - Closed Specialty Diagnoses / Procedures Referred By Contact Refer red To Contact Gastroenterology Diagnoses screening Endoscopy Procedures COLONOSCOPY [address] [place] [address] Phone: Fax: Referral ID Status Reason Start Date Expiration Date Visits Requ ested Visits Authorized [id number] Closed 1 1 Encounter Details Date Type Department Care Team Description 06/01/2013 Surgery [facility] Endoscopy Jacob Bhagat MD Colonoscopy [facility] GASTROENTEROLOGY [address] [facility] [address] [place] [address] [place] [address] [phone] (Wo rk) Surgery Details Date/Time Status Location OR Service Patient Class Case Case Trauma Class Type Case? 06/01/13 3:55 Posted GI GI B Gastroenterology Outpatient PM Panel 1 Procedure LRB Anes Op Region Wound Class Commen ts Colonoscopy N/A Conscious Sedation Rectum II-Clean Contami nated Colonoscopy Surgeon Surgeon Role Service Panel Jacob Simmons MD Primary Gastroenterology 1 Special Needs Ref: Dr Teresita Garcia documented in this encounter Social History Tobacco Use Types Packs/Day Years [...] do you attend lutheran or Not asked scientologist services? Do you belong to any clubs or Not asked organizations such as lutheran groups, unions, fraSignix or athletic groups, or school groups? How [...] Sign Reading Time Taken Comments Blood Pressure 131/93 06/01/2013 4:25 PM CDT Pulse - - Temperature - - Respiratory Rate 20 06/01/2013 4:25 PM CDT Oxygen Saturation 97% 06/01/2013 4:25 PM CDT Inhaled Oxygen Concentration - - [...] OR TABS 1 TABLET DAILY 30 0 12/17/1101/20/2017 NEEDED VICODIN 5-500 MG OR ONE TO [...] scalp ??? Status post hip replacement ??? Wdls-Givft-Jcxhght disease ??? Atopic rhinitis Past Medical History Diagnosis Date ??? Multiple sclerosis sees neurology at [facility] ??? Juvenile osteochondrosis of hip and pelvis [...] Virtual Visit [place] [address] [place] [address] (Wo rk) documented as of this encounter Procedures Procedure Name Priority Date/Time Associated Diagnosis Comme nts COLONOSCOPY Routine 06/01/2013 4:02 PM Results f or this CDT procedure are i n the results section . COLONOSCOPY 06/01/2013 3:56 PM screening CDT Special Needs Ref: Dr Teresita Garcia documented in this encounter Results COLONOSCOPY (06/01/2013 4:02 PM CDT) [facility] Method Time Signature COLONOSCOPY [facility] RAD [...] Diagnoses Not on filedocumented in this encounter Administered Medications Inactive Administered Medications - up to 3 most recent administrations Medication Order MAR Action Action Date Dose Rate Site fentaNYL (SUBLIMAZE) injection Given 06/01/2013 4:09 PM CDT 100 mcg PRN, moderate to severe pain, Starting on Thu06/01/13 at 1609, Intra-procedure midazolam (VERSED) injection Given 06/01/2013 4:09 PM CDT 2 mg PRN, anxiety, Starting on Thu06/01/13 at 1609, Intra-procedure sodium chloride (PF) 0.9% PF flush Given 06/01/2013 4:09 PM CDT 3 mLs PRN, line flush, Starting on Thu06/01/13 at 1609, Intra-procedure documented in this encounter Active and Recently [...] Intra-procedure documented in this encounter Care Teams Director Electrical Engineering Relationship Specialty Start Date End Date Teresita Garcia MD PCP - General Family Practice 01/22/11 [address] [place] [address] documented as of this encounter
--- OUTSIDE RECORDS SUMMARY | 2022-08-16 14:31 | XMS_ITS | Encounter Summary ---
:1960 Author Organization [place] Address [address] [place] [place] [address] Care Team Providers Name Role Phone Teresita Garcia MD Primary Care Provider Encounter Details Date Type Department Care Team Description 06/22/2013 Orders Only [facility] Ramón Shine le sclerosis (H) (Primary Dx); Clinic [place]lin Moody MD Other ma lai and fatigue; Laboratory Other general symptoms; [address] [facility] Disturbance of skin sensatio n; [place], [place] Lack of specialty foods cook rdination; [address] Other abnormality of urinati on; [phone] Urinary tract i nfection, site not specified Social History Tobacco Use Types Packs/Day Years [...] or relatives? How often do you attend bahai or Not asked moravian services? Do you belong to any clubs or Not asked organizations such as bahai groups, unions, fraternal or athletic groups, or [...] Virtual Visit [place] [address] [place] [address] (Wo rk) documented as of this encounter Visit Diagnoses Diagnosis Multiple sclerosis (H) - Primary Multiple sclerosis Other malaise and fatigue Other general symptoms(780.99) Other general symptoms Disturbance of skin sensation Lack of coordination Other abnormality of urination(788.69) Other abnormality of urination Urinary tract infection, site not specif ied documented in this encounter Care Teams K 9 Police Officer Relationship Specialty Start Date End Date Teresita Garcia MD PCP - General Family Practice 01/22/11 [address] [place] [address] documented as of this encounter
--- OUTSIDE RECORDS SUMMARY | 2022-08-16 14:31 | XMS_ITS | Encounter Summary ---
:1960 Author Organization [place] Address [address] [facility] [place] [address] Care Team Providers Name Role Phone Teresita Garcia MD Primary Care Provider Encounter Details Date Type Department Care Team Description 06/22/2013 Orders Only [facility] Mul tiple sclerosis (H); [facility] [facility] Other malaise and fatigue; [address] [facility] Other general symptoms; [place], [place] Disturbance of skin sensation; [address] Lack of coordination; [phone] Other abnormali ty of urination; Urinary tract i nfection, site not specified [...] do you attend confucianist or Not asked anabaptist services? Do you [...] Virtual [place] [address] [place] [address] (Wo rk) documented as of this encounter Procedures Procedure Name Priority Date/Time Associated Diagnosis Comme nts URINE CULTURE Routine 06/22/2013 4:02 PM Multiple sclerosis Re sults for this CDT (H) procedure are in Other malaise and the result s fatigue section. Other general symptoms Disturbance of skin sensation Lack of coordina tion Other abnormality of urination Urinary tract infection, site not specified URINE MICROSCOPIC Routine 06/22/2013 4:01 PM Resu lts for this CDT procedure are i n the results section. UA MACROSCOPIC WITH Routine 06/22/2013 4:01 PM Multiple sclero sis Results for this REFLEX TO CDT (H) procedure are in MICROSCOPIC AND Other malaise and the res ults CULTURE fatigue section. Other general symptoms Disturbance of skin sensation Lack of coordina tion Other abnormality of urination Urinary tract infection, site not specified documented in this encounter Results Urine culture (06/22/2013 4:02 PM CDT) Component Value Ref Test Analysis Performed At Patholo gist Range Method Time Signature Specimen Catheterized [place] Description Urine [facility] Culture Micro No growth [facility] Micro Report FINAL 06/24/2013 [facility] Status [facility] Specimen Anatomical Collection Method Collection Time Receive d Time (Source) Location / / Volume Laterality Urine specimen 06/22/2013 4:02 PM 013 4:06 (specimen) CDT PM CDT Ramón Shine MD LAB - MICRO GENERAL ORDERABL ES Performing Organization Address City/State/ZIP Code Phon e Number [facility] [address] [place] [address] Urine Microscopic (06/22/2013 4:01 PM CDT) P athologist Signature WBC Urine O - 2 0 - 2 /HPF [facility] RBC Urine O - 2 0 - 2 /HPF [facility] Squamous Few FEW /LPF [place] Epithelial /LPF [facility] Specimen Anatomical Collection Method Collection Time Receive d Time (Source) Location / / Volume Laterality 06/22/2013 4:01 PM 09/25/201 3 4:04 CDT PM CDT Ramón Shine MD LAB - URINE ORDERABLES Performing Organization Address City/[facility]/ZIP Code Phon e Number [facility] [address] [place] [address] (ABNORMAL) *UA reflex to Microscopic and Culture (06/22/2013 4:01 PM CDT) Component Value Ref Test Analysis Performed At [facility] gist Range Method Time Signature Color Urine Yellow [facility] Appearance Urine Clear [facility] Glucose Urine Negative NEG [place] mg/dL [facility] Bilirubin Urine Negative NEG [facility] Ketones Urine Negative NEG [place] mg/dL [facility] Specific [place] 1.010 1.003 - [place] Urine 1.035 [facility] Blood Urine Trace (A) NEG [facility] pH Urine 6.0 5.0 - [place] 7.0 pH [facility] Protein Albumin Negative NEG [facility] Urine mg/dL [facility] Urobilinogen 0.2 0.2 - [facility] Urine 1.0 CLINICS EU/dL [place] Nitrite Urine Negative NEG [facility] Leukocyte Negative NEG [facility] Esterase Urine [facility] Source Catheterized [place] Urine [facility] Specimen Anatomical Collection Method Collection Time Receive d Time (Source) Location / / Volume Laterality Urine specimen 06/22/2013 4:01 PM 013 4:04 (specimen) CDT PM CDT Ramón Shine MD LAB - URINE ORDERABLES Performing Organization Address [facility]/ZIP Code Phon e Number [facility] [address] [place] [address] documented in this encounter Visit Diagnoses Diagnosis Multiple sclerosis (H) Multiple sclerosis Other malaise and fatigue Other general symptoms(780.99) Other general symptoms Disturbance of skin sensation Lack of coordination Other abnormality of urination(788.69) Other abnormality of urination Urinary tract infection, site not specif ied documented in this encounter Care Teams Bottler Relationship Specialty Start Date End Date Teresita Garcia MD PCP - General Family Practice 01/22/11 [address] [place] [address] documented as of this encounter
--- OUTSIDE RECORDS SUMMARY | 2022-08-16 14:31 | XMS_ITS | Encounter Summary ---
:1960 Author Organization [facility] Address [address] [place] [address] Care Team Providers Name Role Phone Teresita Garcia MD Primary Care Provider Reason for Visit Reason Onset Date Comments Panel Management 04/11/2013 Encounter Details Date Type Department Care Team Description 04/11/2013 Telephone [facility] Ara Saleh MD Panel Management [address] [address] [phone] Social History Tobacco Use Types Packs/Day Years [...] do you attend baptist or Not asked baptist services? Do you [...] Telephone Encounter - Teresita Garcia MD - 04/27/2013 9:48 AM CDT I don't recommend that actually, he does have hx of it in the past and comes back and forth with hishx of MS and has very limited movement. Telephone Encounter - Blanche Ward - 04/27/2013 9:44 AM CDT Are we able to remove depression off of pts problem list? See message below. Telephone Encounter - Blanche Ward - 04/27/2013 9:43 AM CDT Pt calling back. PHQ 9 has been completed on 04/11/13 Score of: 2 Telephone Encounter - Mary Sanchez - 04/25/2013 1:23 PM CDT [facility]mtcb to the [facility] team. Mary Sanchez CMA Telephone Encounter - Blanche Ward - 04/18/2013 8:47 AM CDT LM for pt to call back to clinic. Telephone Encounter - Blanche Ward - 04/11/2013 2:16 PM CDT Panel Management Review Date of last visit with a [facility] provider: on 06/21/12. Date of next visit with a [facility] provider: None. Problem List Patient Active Problem List Diagnosis ??? MULTIPLE SCLEROSIS ??? CARDIOVASCULAR SCREENING; LDL GOAL LESS THAN 160 ??? Cannabis abuse ??? Mild major depression ??? Baclofen pump failure ??? Spasticity ??? Seborrheic dermatitis of scalp ??? Status post hip replacement ??? Sjzf-Wwckr-Mefvtiu disease ??? Atopic rhinitis Health Maintenance List Health Maintenance Topic Date Due ??? Colon Cancer Screen (System Assigned) 12/15/2011 ??? Phq-9 Q6 Months (No Inbasket) 12/19/2012 ??? Depression Action Plan Q1 Yr (No Inbasket) 06/21/2013 ??? Influenza Vaccine (System Assigned) 06/28/2013 ??? Lipid Screen Q5 Yr Male (System Assigned) 2015 ??? Tetanus Immunization ( [facility] Assigned) 12/13/2020 For diabetic patients with hypertension and/or hyperlipidemia, only choose diabetes. Patient has the following on his problem list: Depression / Dysthymia review PHQ-9 SCORE ([employer]) 12/13/2010 06/21/2012 Total Score 9 5 Patient is due for: PHQ9 Composite cancer screening Chart review shows that this patient is due/due soon for the following Colonoscopy Tobacco History History Smoking status ??? Never Smoker Smokeless tobacco ??? Never Used Summary: Patient is due/failing the following: COLONOSCOPY and PHQ9 Action needed: Patient needs office visit for colon screen. and Patient needs to do PHQ9. Type of outreach: Sent [employer] message. Questions for provider review: None Blanche Coppola MA Chart routed to Care Team . Telephone Encounter - Ara Way MD - 04/11/2013 1:43 PM CDT Due for PHQ-9 - if less than 5 again, can remove depression off problem list as he is not on any meds for this Also due for colonoscopy - he has MS, this may be difficult so FIT testing is option as well documented in this encounter Plan of Treatment Upcoming Encounters Date Type Specialty Care Team Description 08/18/2022 Virtual Visit [place] [address] [place], [place] [phone] (Wo rk) documented as of this encounter Visit Diagnoses Not on filedocumented in this encounter Care Teams Auto Damage Adjuster Relationship Specialty Start Date End Date Teresita Garcia MD PCP - General Family Practice 01/22/11 [address] [place] [address] documented as of this encounter
--- OUTSIDE RECORDS SUMMARY | 2022-08-16 14:31 | XMS_ITS | Encounter Summary ---
:1960 Author Organization [place] Address [facility] [facility] [place] [address] Care Team Providers Name Role Phone Teresita Garcia MD Primary Care Provider Encounter Details Date Type Department Care Team Description 09/15/2014 Radiant Appointment [facility] Teresita Garcia MD Shoulder injury, Clinic [place] [address] [facility], initial [address] [facility] AV encounter [facility], [address] [place] [address] [phone] Social History Tobacco Use Types Packs/Day Years [...] do you attend christianity or Not asked evangelical services? Do you [...] Virtual Visit [place] [address] [place] [address] (Wo rk) documented as of this encounter Procedures Procedure Name Priority Date/Time Associated Diagnosis Comme nts XR SHOULDER LEFT 2 Routine 09/15/2014 2:26 PM Shoulder injury, Results for this VIEWS [employer] left, initial procedure are in encounter the results section. documented in this encounter Results XR Shoulder Left 2 Views (09/15/2014 2:26 PM [employer]) Anatomical Region Laterality Modality Shoulder, Chest, Arm Left Computed Radiograph y Specimen (Source) Anatomical Location Collection Method / Collectio n Time Received Time / Laterality Volume Impressions 09/15/2014 3:48 PM [employer] IMPRESSION: Negative. KELLY GILBERT MD Narrative 09/15/2014 3:48 PM [employer] XR SHOULDER 2 VIEW LEFT 09/15/2014 3:48 [...] Diagnoses Diagnosis Shoulder injury, left, initial encounter documented in this encounter Care Teams Digital Engineer Relationship Specialty Start Date End Date Teresita Garcia MD PCP - General Family Practice 01/22/11 [address] [place] [address] documented as of this encounter
--- OUTSIDE RECORDS SUMMARY | 2022-08-16 14:31 | XMS_ITS | Encounter Summary ---
:1960 Author Organization [place] Address [address] [place] [address]. [place] [address] Care Team Providers Name Role Phone Teresita Garcia MD Primary Care Provider Reason for Visit Reason Onset Date Comments Refill Request 01/04/2014 Ketokonazole Shampoo and Hydrocortisone Encounter Details Date Type Department Care Team Description 01/04/2014 Refill [facility] Roel Garcia MD Refill Request [address] (Ketokonazole Shampoo [address] [place], [place] and Hydro[place]ortis[place]) [place] [phone] Social History Tobacco Use Types Packs/Day Years [...] do you attend temple or Not asked hinduism services? Do you [...] encounter Miscellaneous Notes Telephone Encounter - Hal Sierra, RN - 01/04/2014 3:48 PM CDT Ketoconazole shampoo is not a [facility] medication, forwarded to provider for authorization. Hal Sierra, RN Telephone Encounter - Rosy Brito - 01/04/2014 3:39 PM CDT Pt requesting refill of Ketoconazole and Hydrocortisone. Last OV: 04/19/13 w/Dr Garcia Reason for visit: Preop Date last filled: 03/10/11 and 04/19/13 Labs pertaining to medication: n/a Jackie Brito/TC documented in this encounter Plan of Treatment Upcoming Encounters Date Type Specialty Care Team Description 08/18/2022 Virtual Visit [place] [address] [place], [place] [phone] (Wo rk) documented as of this encounter Visit Diagnoses Diagnosis Eczema - Primary Contact dermatitis and other eczema, due to unspecified cause Seborrheic dermatitis of scalp Other seborrheic dermatitis documented in this encounter Care Teams Auction Block Clerk Relationship Specialty Start Date End Date Teresita Garcia MD PCP - General Family Practice 01/22/11 [address] [place] [address] documented as of this encounter
--- OUTSIDE RECORDS SUMMARY | 2022-08-16 14:32 | XMS_ITS | Encounter Summary ---
:1960 Author Organization [place] Address [facility] [place] [address] Care Team Providers Name Role Phone Teresita Garcia MD Primary Care Provider Reason for Visit Reason Comments Pre-Op Exam Surgery on 01/23/11 Encounter Details Date Type Department Care Team Description 01/22/2011 Office Visit [facility] Pre op general physical [place] exam (Primary Dx) [address] [place] [address] Social History Tobacco Use Types Packs/Day Years Used Date Smoking Tobacco: Never Alcohol Use Standard Drinks/Week Comments [...] do you attend spiritism or Not asked religion services? Do you belong to any clubs [...] Sign Reading Time Taken Comments Blood Pressure 104/70 01/22/2011 1:29 PM CDT Pulse 101 01/22/2011 1:29 PM CDT Temperature 36.8 ??C (98.2 ??F) 01/22/2011 1:29 PM CDT Respiratory Rate - - Oxygen Saturation 96% 01/22/2011 1:29 PM CDT Inhaled Oxygen Concentration - - Weight 74.4 kg (164 lb 1.6 oz) 01/22/2011 1:29 PM CDT Height 167.6 cm (5' 6) 01/22/2011 1:29 PM CDT Body Mass Index 26.49 01/22/2011 1:29 PM CDT documented in this encounter Progress Notes Elma Thorne - 01/22/2011 1:34 PM CDT [facility] [address] [place] [phone] PRE-OP EVALUATION: Today's date: 01/22/2011 Dejuan Rodriguez (: 1960) presents for pre-operative evaluation assessment as requested byDr. Frederic Mejía. He requires evaluation and anesthesia risk assessment prior to undergoing surgery/procedure for treatment of headache . Proposed procedure: Blood patch. Date of Surgery/ Procedure: 01/23/11 Time of Surgery/ Procedure: 12:30PM Hospital/Surgical Facility: [facility] Fax number for surgical facility: [phone] Primary Physician: Dr. Garcia Type of Anesthesia Anticipated: Local History of anesthesia complications: NONE History of abnormal bleeding: NONE History of blood transfusions: YES. No complications. Patient has a Health Care Directive or Living Will: NO 1- NO - Do you ever have [...] as prolonged bleeding following surgeries or cuts? 12-YES - Have you ever had problems with anemia or been told to take iron pills? Took iron pills after hip replacement surgery. 13-NO - Have you had any abnormal blood loss such as black, tarry or bloody stools, or abnormal vaginal bleeding? 14-NO - Have you or any of your relatives ever had problems with anesthesia? 15-NO - Do you snore or stop breathing at night? 16-YES - Do you have any prosthetic heart valves or joints? Hip replacements on both sides. 17-NO - Is there any chance that you may be ? HPI: See problem list for active medical problems. Problems all longstanding and stable, except as noted/documented. See ROS for pertinent symptoms related to these conditions. . Patient Active Problem List Diagnoses Date Noted ??? Cannabis abuse [305.20P] 12/13/2010 Does not smoke daily ??? 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 CARDIOVASCULAR SCREENING; LDL GOAL LESS THAN 160 [V81.2LR] 07/28/2010 ??? MULTIPLE SCLEROSIS [340] 09/01/2005 Past Medical History Diagnosis Date ??? Multiple sclerosis sees neurology at [facility] ??? Juvenile osteochondrosis of hip and pelvis ??? Other specified disorder of bladder neurogenic- Dr. Mojica Past Surgical History Procedure Date ??? 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 Docusate Sodium (COLACE PO) Take by mouth. ??? Cholecalciferol (VITAMIN D) 2000 UNIT tablet Take 1 tablet by mouth daily. ??? Ropinirole HCl (REQUIP PO) Take by mouth daily. ??? mometasone (NASONEX) 50 MCG/ACT nasal spray 2 sprays by Both Nostrils route daily. ??? SELENIUM SULFIDE 2.5 % SHAM Externally apply 1 Bottle topically daily. ??? VICODIN 5-500 MG OR TABS ONE TO TWO TABLETS EVERY 4 TO 6 HOURS NEEDED FOR PAIN ??? SENNA 15 MG OR TABS 4 TABLETS AT BEDTIME ??? TYSABRI 300 MG/15ML IV CONC 300 MG EVERY 4 WEEKS ??? KLONOPIN 0.5 MG OR TABS 1 TABLET 3 TIMES DAILY ??? VIAGRA 100 MG OR TABS 1 TABLET DAILY NEEDED OTC products: none Allergies Allergen Reactions ??? Pollen Extract Latex Allergy: NO History Substance Use Topics ??? Smoking status: Never Smoker ??? Smokeless tobacco: Not on file ??? Alcohol Use: No History Drug Use ??? Yes marijuana occasionally REVIEW OF SYSTEMS: C: NEGATIVE for fever, chills, change in weight E/M: NEGATIVE for ear, mouth and throat problems R: NEGATIVE for significant cough or SOB CV: NEGATIVE for chest pain, palpitations or peripheral edema EXAM: BP 104/70 Pulse 101 Temp(Src) 98.2 ??F (36.8 ??C) (Oral) Ht 5' 6 (1.676 m) Wt 164 lb 1.6 oz(74.435 kg) BMI 26.49 kg/m2 SpO2 96% GENERAL APPEARANCE: healthy, alert and no distress HENT: ear canals and TM's normal and nose and mouth without ulcers or lesions RESP: lungs clear to auscultation - no rales, rhonchi or wheezes CV: regular rate and rhythm, normal S1 S2, no S3 or S4 and no murmur, click or rub NEURO: Normal strength and tone, sensory exam grossly normal, mentation intact and speech normal DIAGNOSTICS: Preop Testing Not indicated IMPRESSION: Reason for surgery/procedure: blood patch Diagnosis/reason for consult: clearance The proposed surgical procedure is considered LOW risk. For above listed surgery and anesthesia: Patient is at LOW risk for surgery/procedure and perioperative/procedure complications. RECOMMENDATIONS: --Approval given to proceed with proposed procedure, without further diagnostic evaluation. Signed Electronically by: Francis Hinkle MD Copy of this evaluation report is provided to requesting physician. Preop Guidelines documented in this encounter Nursing Notes 01/22/2011 1:30 PM CDT >> ELMA THORNE ThuJan 22, 2011 1:43 PM Patient presents with: Pre-Op Exam - Surgery on 01/23/11 Initial BP 104/70 Pulse 101 Temp(Src) 98.2 ??F (36.8 ??C) (Oral) Ht 5' 6 (1.676 m) Wt 164 lb 1.6 oz (74.435 kg) BMI 26.49 kg/m2 SpO2 96% Estimated Body mass index is 26.49 kg/(m^2) as calculated from the following: Height as of this encounter: 5' 6(1.676 m). Weight as of this encounter: 164 lb 1.6 oz(74.435 kg).. BP completed using cuff size: regular Elma Thorne MA documented in this encounter Plan of Treatment Upcoming Encounters Date Type Specialty Care Team Description 08/18/2022 Virtual Visit [place] [address] [place] [address] (Wo rk) documented as of this encounter Visit Diagnoses Diagnosis Preop general physical exam - Primary Other specified pre-operative examinatio n documented in this encounter Care Teams Pot Builder Relationship Specialty Start Date End Date Teresita Garcia MD PCP - General Family Practice 01/22/11 [address] [place], [place] [phone] documented as of this encounter
--- OUTSIDE RECORDS SUMMARY | 2022-08-16 14:32 | XMS_ITS | Encounter Summary ---
:1960 Author Organization [place] Address [address] [place] [address] Care Team Providers Name Role Phone Teresita Garcia MD Primary Care Provider Reason for Visit Reason Comments Post-op Problem pump incision on back - has a large bump Refill Request shampoo Encounter Details Date Type Department Care Team Description 03/10/2011 Office Visit [facility] Teresita Garcia MD Benign tumor of back (Primary Dx); Clinic [place] [id number] [place] [address] Baclofen pump failure; [address] [place], [place] Seborrheic dermatitis of sca lp [place], [place] [phone] Social History Tobacco Use Types Packs/Day [...] Sign Reading Time Taken Comments Blood Pressure 100/66 03/10/2011 2:00 PM CDT Pulse 101 03/10/2011 2:00 PM CDT Temperature 36.7 ??C (98 ??F) 03/10/2011 2:00 PM CDT Respiratory Rate - - Oxygen Saturation 97% 03/10/2011 2:00 PM CDT Inhaled Oxygen Concentration - - Weight 73 kg (161 lb) 03/10/2011 2:00 PM CDT Height 170.2 cm (5' 7) 03/10/2011 2:00 PM CDT Body Mass Index 25.22 03/10/2011 2:00 PM CDT documented in this encounter Progress Notes Sara Dolan - 03/11/2011 10:37 AM CDT Addended by: SARA DOLAN on: 03/11/2011 Modules accepted: Orders Hal Samson - 03/10/2011 4:38 PM CDT Addended by: HAL SAMSON on: 03/10/2011 Modules accepted: Orders, Medications Teresita Garcia - 03/10/2011 2:26 PM CDT Dejuan Rodriguez is a 50 year old male who presents today for evaluation of swelling of the back. HPI:in the last few days he noticed swelling in the back where the surgical incision of the baclofenpump, and he has been noticed that he has been more spastic and fatigue in the last 10 days or so. Also request a refill on his shampoo, for seborrhoic dermatitis of the scalp. Review Of Systems: CONSTITUTIONAL:NEGATIVE NEURO: more spastic in the last 10 days. Exam GENERAL healthy, alert and no distress MS: No varicosities. Good peripheral pulses., Extremities normal. No deformaties, edema or skin discoloration. Back : there is a large 4 cm size nodule under the skin cyst like, easily movable. SKIN: minimal dandruff of the scalp. Assessment & Plan: 1)086.7 Other specified disease of hair and hair follicles Comment: Plan: start on ketoconazole shampoo. 215.7D Benign tumor of back Comment: related to possible leak of the baclofen pump. Plan: xray of the lumbar and throacic Refer to surgeon. documented in this encounter Nursing Notes 03/10/2011 2:00 PM CDT >> HAL SAMSON Mon Mar 10, 2011 4:38 PM Late entry. Pharmacy does no >> WES CAMP Mon Mar 10, 2011 2:04 PM Patient presents with: Post-op Problem - pump incision on back - has a large bump Refill request - shampoo Initial BP 100/66 Pulse 101 Temp(Src) 98 ??F (36.7 ??C) (Oral) Ht 5' 7 (1.702 m) Wt 161 lb (73.029 kg) BMI 25.22 kg/m2 SpO2 97% Estimated Body mass index is 25.22 kg/(m^2) as calculated from the following: Height as of this encounter: 5' 7(1.702 m). Weight as of this encounter: 161 lb(73.029 kg).. BP completed using cuff size large Wes Camp CMA documented in this encounter Plan of Treatment Upcoming Encounters Date Type Specialty Care Team Description 08/18/2022 Virtual Visit [place] [address] [place] [address] (Wo rk) documented as of this encounter Procedures Procedure Name Priority Date/Time Associated Diagnosis Comme nts XR LUMBAR SPINE 2/3 Routine 03/10/2011 2:37 PM Benign tumor of back Results for this VIEWS CDT procedure are i n the results section. documented in this encounter Results X-ray lumbar spine 2-3 views* (03/10/2011 2:37 PM CDT) Anatomical Region Laterality Modality T-spine, L-spine, Abdomen/Pelvis Other Specimen (Source) Anatomical Collection Method Collection Time Re ceived Time Location / / Volume Laterality 03/10/2011 2:37 PM CDT Impressions 03/10/2011 3:29 PM CDT LUMBAR SPINE 2-3 VIEW* Mar 10, 2011 2:37 :00 PM HISTORY: ??BENIGN TUMOR OF BACK, FINDINGS: Negative. Teresita Garcia MD IMG DIAGNOSTIC IMAGING ORDER REBA documented in this encounter Visit Diagnoses Diagnosis Benign tumor of back - Primary Other benign neoplasm of connective and other soft tissue of trunk, unspecified Baclofen pump failure Mechanical complication due to other imp lant and internal device, not elsewhere classified Seborrheic dermatitis of scalp Other seborrheic dermatitis documented in this encounter Care Teams Patient Care Secretary Relationship Specialty Start Date End Date Teresita Garcia MD PCP - General Family Practice 01/22/11 [address] [place] [address] documented as of this encounter
--- OUTSIDE RECORDS SUMMARY | 2022-08-16 14:32 | XMS_ITS | Encounter Summary ---
:1960 Author Organization [place] Address [address] [place] [address] Care Team Providers Name Role Phone Jonathan Velásquez MD Primary Care Provider Reason for Visit Reason Comments Back Pain Constipation Encounter Details Date Type Department Care Team Description 10/03/2010 Office Visit [facility] Teresita Garcia MD Back pain (Primary Dx) Clinic [address] [address] [place], [place] [address] [address] [place], [place] [phone] (Work) [phone] Social History Tobacco Use Types Packs/Day Years [...] do you attend spiritism or Not asked church services? Do you [...] Sign Reading Time Taken Comments Blood Pressure 100/68 10/03/2010 2:13 PM [employer] Pulse 71 10/03/2010 2:13 PM [employer] Temperature 36.6 ??C (97.8 ??F) 10/03/2010 2:13 PM [employer] Respiratory Rate 16 10/03/2010 2:13 PM [employer] Oxygen Saturation 97% 10/03/2010 2:13 PM [employer] Inhaled Oxygen Concentration - - Weight 74.8 kg (165 lb) 10/03/2010 2:13 PM [employer] Height 167.6 cm (5' 6) 10/03/2010 2:13 PM [employer] Body Mass Index 26.63 10/03/2010 2:13 PM [employer] documented in this encounter Progress Notes Teresita Garcia - 10/03/2010 3:26 PM CST SUBJECTIVE: Dejuan Rodriguez is a 49 year old male who complains of low back pain for 1 weeks, positional withbending or lifting, without radiation down the legs. Precipitating factors: recent heavy lifting. Prior history of back problems: no prior back problems. There is no numbness in the legs.pt was concerned about UTI. He did have some headaches when he tries to sleep. Pt is complaining of constipation, chronic. OBJECTIVE: BP 100/68 Pulse 71 Temp(Src) 97.8 ??F (36.6 ??C) (Tympanic) Resp 16 Ht 5' 6 (1.676 m) Wt 165 lb (74.844 kg) SpO2 97% Patient appears to be in mild pain, antalgic gait noted. Lumbosacral spine area reveals no local tenderness or mass. Painful and reduced LS ROM noted. Straight leg raise is negative at 60 degrees on bilateral. DTR's, motor strength and sensation normal, including heel and toe gait. Peripheral pulses are palpable. Lumbar spine X-Ray is not indicated. ASSESSMENT: lumbar strain PLAN: For acute pain, rest, intermittent application of heat (do not sleep on heating pad), analgesics andmuscle relaxants are recommended. Discussed longer term treatment plan of prn NSAID's and discussed a home back care exercise program with flexion exercise routine. Proper lifting with avoidance of heavy lifting discussed. Consider Physical Therapy and XRay studies if not improving. Call or return to clinic prn if these symptoms worsen or fail to improve as anticipated. [employer] documented in this encounter Nursing Notes 10/03/2010 2:15 PM CST >> LEONARDO Askew Oct 03, 2010 2:16 PM Dejuan Rodriguez presents for lower back pain from moving his scooter, unsure if related to UTI, feels like a truck ran him over. No LMP for male patient. BP 100/68 Pulse 71 Temp(Src) 95 ??F (35 ??C) (Oral) Resp 16 Ht 5' 6 (1.676 m) Wt 165 lb (74.844 kg) SpO2 97% Estimated Body mass index is 26.63 kg/(m^2) as calculated from the following: Height as of this encounter: 5' 6(1.676 m). Weight as of this encounter: 165 lb(74.844 kg). TETANUS IMMUNIZATION ( [facility] ASSIGNED) due on 1973 BP completed using cuff size: large. Leonardo Castillo MA documented in this encounter Plan of Treatment Upcoming Encounters Date Type Specialty Care Team Description 08/18/2022 Virtual Visit [place] [address] [place] [address] (Wo rk) documented as of this encounter Procedures Procedure Name Priority Date/Time Associated Comments Diagnosis URINE CULTURE Routine 10/03/2010 3:01 PM Back pain Results for this [employer] procedure are i n the results section. UA MACROSCOPIC WITH Routine 10/03/2010 2:45 PM Back pain Re sults for this REFLEX TO MICRO [employer] procedure ar e in the results section. URINE MICROSCOPIC Routine 10/03/2010 2:45 PM Resu lts for this EXAM [employer] procedure are i n the results section. documented in this encounter Results URINE CULTURE (10/03/2010 3:01 PM [employer]) Component Value Ref Test Analysis Performed At [facility] Range Method Time Signature Specimen Catheterized [place] Description Urine [facility] Culture Micro No growth [facility] Micro Report FINAL [place] Status 10/06/2010 [facility] Specimen Anatomical Collection Method Collection Time Receive d Time (Source) Location / / Volume Laterality Urine specimen 10/03/2010 3:01 PM 011 3:03 (specimen) [facility] PM [facility] Teresita Garcia MD LAB - MICRO GENERAL ORDERABL ES Performing Organization Address City/State/ZIP Code Phon e Number [facility] [address] [place] [address] [phone] [facility] (ABNORMAL) Microscopic exam urine (10/03/2010 2:45 PM [employer]) P athologist Signature WBC Urine O - 2 0 - 2 /HPF [facility] RBC Urine 2-5 (A) 0 - 2 /HPF [facility] Bacteria Urine Few (A) NEG /HPF [facility] Specimen Anatomical Collection Method Collection Time Receive d Time (Source) Location / / Volume Laterality 10/03/2010 2:45 PM 1 2:47 [facility] PM [facility] Teresita Garcia MD LAB - URINE ORDERABLES Performing Organization Address City/[facility]/ZIP Code Phon e Number [facility] [place] [address] [facility] (ABNORMAL) UA macroscopic with reflex to micro (10/03/2010 2:45 PM [employer]) Component Value Ref Test Analysis Performed At Patholo gist Range Method Time Signature Color Urine Yellow [facility] Appearance Clear [facility] Glucose Urine Negative NEG [place] mg/dL [facility] Bilirubin Urine Negative NEG [facility] Ketones Urine Negative NEG [place] mg/dL [facility] Specific <=1.005 1.003 - [place] Urine 1.035 [facility] Blood Urine Trace (A) NEG [facility] pH Urine 5.5 5.0 - [place] 7.0 pH [facility] Protein Albumin Negative NEG [place] Urine mg/dL [facility] Urobilinogen 0.2 0.2 - [place] Urine 1.0 [place] EU/dL [facility] Nitrite Urine Negative NEG [facility] Leukocyte Negative NEG [place] Esterase Urine [facility] Source Catheterized [place] Urine [facility] Specimen Anatomical Collection Method Collection Time Receive d Time (Source) Location / / Volume Laterality Urine specimen 10/03/2010 2:45 PM 011 2:47 (specimen) [employer] [employer] PM [employer] [employer] Teresita Garcia MD LAB - URINE ORDERABLES Performing Organization Address City/State/ZIP Code Phon e Number [facility] [place] [address] [facility] documented in this encounter Visit Diagnoses Diagnosis Back pain - Primary Backache, unspecified documented in this encounter Care Teams Wait Staff Relationship Specialty Start Date End Date Jonathan Velásquez MD PCP - General 11/10/05 01/21/11 documented as of this encounter
--- OUTSIDE RECORDS SUMMARY | 2022-08-16 14:32 | XMS_ITS | Encounter Summary ---
:1960 Author Organization [place] Address [address] [facility] [facility] [place] [address] Care Team Providers Name Role Phone Jonathan Velásquez MD Primary Care Provider Reason for Visit Reason Comments Pre-Op Exam Depression Encounter Details Date Type Department Care Team Description 12/13/2010 Office Visit [facility] Nelida Corral Preop g eneral physical exam (Primary Dx); Clinic Brandon Avila MD Mild major depression (H); [place] [address] [facility] Vitamin D deficiencies; Road, [address] [place] [address] Fatigue; [place], [place] [phone] (Wo rk) Vaccine for tetanus toxoid [id number] [phone] Social History Tobacco Use Types Packs/Day Years [...] do you attend amish or Not asked faith services? Do you [...] Sign Reading Time Taken Comments Blood Pressure 100/60 12/13/2010 7:40 AM CDT Pulse 91 12/13/2010 7:40 AM CDT Temperature 36.4 ??C (97.5 ??F) 12/13/2010 7:40 AM CDT Respiratory Rate 16 12/13/2010 7:40 AM CDT Oxygen Saturation 99% 12/13/2010 7:40 AM CDT Inhaled Oxygen Concentration - - Weight 75.3 kg (166 lb) 12/13/2010 7:40 AM CDT Height 167.6 cm (5' 6) 12/13/2010 7:40 AM CDT Body Mass Index 26.79 12/13/2010 7:40 AM CDT documented in this encounter Progress Notes Nelida Corral - 12/13/2010 7:43 AM CDT [address], [address] [place] [address] PRE-OP EVALUATION: Today's date: 12/13/2010 Dejuan Rodriguez (: 1960) presents for pre-operative evaluation assessment as requested byDr. Enriquez. He requires evaluation and anesthesia risk assessment prior to undergoing surgery/procedure for treatment of baclofen pump . Proposed procedure: pump placement right LQ abd. Date of Surgery/ Procedure: 12/16/2009 Time of Surgery/ Procedure: 10:30am Hospital/Surgical Facility: [facility] Fax number for surgical facility: Primary Physician: Terseita Garcia Type of Anesthesia Anticipated: General History [...] or been told to take iron pills? 13-NO- Have you had any abnormal blood loss such as black, tarry or bloody stools, or abnormal vaginal bleeding? 14-NO - Have you or any of your relatives ever had problems with anesthesia? 15-NO - Do you snore or stop breathing at night? 16-YES - Do you have any prosthetic heart valves or joints? Hips replacement bilt 17-NO - Is there any chance that you may be ? HPI: See problem list for active medical problems. Problems all longstanding and stable, except as noted/documented. See ROS for pertinent symptoms related to these conditions. . Patient Active Problem List Diagnoses Code ??? MULTIPLE SCLEROSIS 340 ??? DEPRESSIVE DISORDER NEC 311 ??? DRUG ABUSE NEC-UNSPEC 305.90 ??? CARDIOVASCULAR SCREENING; LDL GOAL LESS THAN 160 V81.2LR Past Medical History Diagnosis Date ??? Multiple sclerosis sees neurology at [facility] ??? Juvenile osteochondrosis of hip and [...] TO 6 HOURS NEEDED FOR PAIN ??? BACLOFEN 10 MG OR TABS 1 TABLET 3 TIMES DAILY ??? SENNA 15 MG OR TABS 4 TABLETS AT BEDTIME ??? TYSABRI 300 MG/15ML IV CONC 300 MG EVERY 4 WEEKS ??? KLONOPIN 0.5 MG OR TABS 1 TABLET 3 TIMES DAILY ??? VIAGRA 100 MG OR TABS 1 TABLET DAILY NEEDED ??? MULTIPLE VITAMIN OR TABS 1 TABLET DAILY OTC products: None, except as noted above No Known Allergies Latex Allergy: NO History Substance Use Topics ??? Smoking status: Never Smoker ??? Smokeless tobacco: Never Used ??? Alcohol Use: No History Drug Use ??? Yes marijuana occasionally REVIEW OF SYSTEMS: C: NEGATIVE for fever, chills, change in weight I: NEGATIVE for worrisome rashes, moles or lesions E: NEGATIVE for vision changes or irritation E/M: NEGATIVE for ear, mouth and throat problems R: NEGATIVE for significant cough or SOB B: NEGATIVE for masses, tenderness or discharge CV: NEGATIVE for chest pain, palpitations or peripheral edema GI: NEGATIVE for nausea, abdominal pain, heartburn, or change in bowel habits : NEGATIVE for frequency, dysuria, or hematuria M: NEGATIVE for significant arthralgias or myalgia N: NEGATIVE for weakness, dizziness or paresthesias E: NEGATIVE for temperature intolerance, skin/hair changes H: NEGATIVE for bleeding problems P: NEGATIVE for changes in mood or affect EXAM: BP 100/60 Pulse 91 Temp(Src) 97.5 ??F (36.4 ??C) (Oral) Resp 16 Ht 5' 6 (1.676 m) Wt 166 lb (75.297 kg) BMI 26.79 kg/m2 SpO2 99% GENERAL APPEARANCE: healthy, alert and no distress EYES: EOMI, - PERRL HENT: ear canals and TM's normal and nose and mouth without ulcers or lesions NECK: no adenopathy, no asymmetry, masses, or scars and thyroid normal to palpation RESP: lungs clear to auscultation - no rales, rhonchi or wheezes BREAST: normal without masses, tenderness or nipple discharge and no palpable axillary masses or adenopathy CV: regular rates and rhythm, normal S1 S2, no S3 or S4 and no murmur, click or rub - ABDOMEN: soft, nontender, no HSM or masses and bowel sounds normal MS: extremities normal- no gross deformities noted, no evidence of inflammation in joints, FROM in all extremities. SKIN: no suspicious lesions or rashes NEURO: Normal strength and tone, sensory exam grossly normal, mentation intact and speech normal PSYCH: mentation appears normal. and affect normal/bright LYMPHATICS: No axillary, cervical, inguinal, or supraclavicular nodes DIAGNOSTICS: Preop Testing Not indicated IMPRESSION: Reason for surgery/procedure: baclofen pump Diagnosis/reason for consult: clearance The proposed surgical procedure is considered LOW risk. For above listed surgery and anesthesia: Patient is at LOW risk for surgery/procedure and perioperative/procedure complications. RECOMMENDATIONS: --Approval given to proceed with proposed procedure, without further diagnostic evaluation. Pt self caths and gets botox injections into bladder, last time done, 1 week ago. Hx of UTI. Check urine day of surgery if possible. Signed Electronically by: [facility], Copy of this evaluation report is provided to requesting physician. Preop Guidelines documented in this encounter Nursing Notes 12/13/2010 7:45 AM CDT >> BEATRIZ PAL Fri Dec 13, 2010 8:43 AM Tdap injection given. See Immunization section for details. Beatriz Pal CMA documented in this encounter Plan of Treatment Upcoming Encounters Date Type Specialty Care Team Description 08/18/2022 Virtual Visit [place] [address] [place], [place] [phone] (Wo rk) documented as of this encounter Procedures Procedure Name Priority Date/Time Associated Diagnosis Comme nts VITAMIN D DEFICIENCY Routine 12/13/2010 8:13 Vitamin D Resu lts for this SCREENING AM CDT deficiencies procedure are i n the results section. TSH WITH FREE T4 Routine 12/13/2010 8:13 Mild major Results for this REFLEX AM CDT depression (H) procedure are in the results section. LIPID REFLEX TO DIRECT Routine 12/13/2010 8:13 Preop general R esults for this LDL PANEL AM CDT physical exam procedure are in the results section. COMPREHENSIVE Routine 12/13/2010 8:13 Mild major Results for this METABOLIC PANEL AM CDT depression (H) procedure are in Vitamin D the results deficiencies section. Fatigue CBC WITH PLATELETS Routine 12/13/2010 8:13 Mild major Result s for this AM CDT depression (H) procedure are in Fatigue the results section. documented in this encounter Results (ABNORMAL) Comprehensive metabolic panel (12/13/2010 8:13 AM CDT) [facility] Time Signature Sodium 143 133 - 144 [facility] mmol/L [facility] Potassium 4.1 3.4 - 5.3 [facility] mmol/L [facility] Chloride 104 94 - 109 [facility] mmol/L [facility] Carbon Dioxide 27 20 - 32 [facility] mmol/L [facility] Anion Gap 12 6 - 17 [place] mmol/L [facility] Glucose 95 60 - 99 [place] mg/dL [facility] Urea Nitrogen 21 5 - 24 [facility] mg/dL [facility] Creatinine 1.26 (H) 0.66 - [facility] 1.25 mg/dL [facility] GFR Estimate 61 >60 [place] mL/min/1.7 [facility] m2 LAB GFR Estimate If 74 >60 [facility] Black mL/min/1.7 [facility] m2 LAB Calcium 9.4 8.5 - 10.4 [facility] mg/dL [facility] Bilirubin Total 1.0 0.2 - 1.3 [facility] mg/dL [facility] Albumin 4.6 3.9 - 5.1 [place] g/dL [facility] Comment: Reference range changed on 05/30. Protein Total 7.0 6.8 - 8.8 g/dL [facility] Comment: As of 08, reference range reflects plasma specimen type. Alkaline Phosphatase 55 40 - 150 U/L [facility] ALT 24 0 - 70 U[facility] AST 20 0 - 55 U/L [facility] LAB Specimen Anatomical Collection Method Collection Time Receive d Time (Source) Location / / Volume Laterality Blood specimen 12/13/2010 8:13 AM 011 8:18 (specimen) CDT AM CDT Nelida Corral MD LAB - BLOOD ORDERABLES Performing Organization Address [facility]/ZIP Code Phon e Number [address] [address] [facility] (ABNORMAL) Lipid panel reflex to direct LDL (12/13/2010 8:13 AM CDT) P athologist Signature Cholesterol 143 0 - 200 [facility] mg/dL CLINIC LAB Comment: LDL Cholesterol is the primary guide to therapy. The NCEP recommends further evaluation of: patients with cholesterol <200 mg/dL if additional risk factors are present, cholesterol >240 mg/dL, triglycerides >150 mg/dL, or HDL <40 mg/dL. Triglycerides 259 (H) 0 - 150 mg/dL [facility] HDL Cholesterol 41 40 - 110 mg/dL [facility] LDL Cholesterol Calculated 50 0 - 129 mg/dL [facility] Comment: LDL Cholesterol is the primary guide to therapy: LDL-cholesterol goal in high risk patients is <100 mg/dL and in very high risk patients is <70 mg/dL. VLDL-Cholesterol 52 (H) 0 - 30 mg/dL [facility] Cholesterol/HDL Ratio 3.5 0.0 - 5.0 [facility] Specimen Anatomical Collection Method Collection Time Receive d Time (Source) Location / / Volume Laterality Blood specimen 12/13/2010 8:13 AM 011 8:18 (specimen) CDT AM CDT Nelida Corral MD LAB - BLOOD ORDERABLES Performing Organization Address City/[facility]/ZIP Code Phon e Number [address] [address] [phone] [facility] Vitamin D deficiency screening (12/13/2010 8:13 AM CDT) Component Value Ref Test Analysis Performed At Patholo gist Range Method Time Signature 25 [place] Vit D2 <5 ug/L [facility] 25 [place] Vit D3 43 ug/L [facility] 25 [place] Vit D <48 30 - 75 [facility] total Season, race, dietary intake, and treatm ent affect the concentration of ug/L [facility]-puntw[facility]-Th[facility]uha D. Values may decrease during michelle er months and increase CAMPUS LABS during summer months. Values less than 30 ug/L may indicate Vitamin D deficiency. Specimen Anatomical Collection Method Collection Time Receive d Time (Source) Location / / Volume Laterality Blood specimen 12/13/2010 8:13 AM 011 8:18 (specimen) CDT AM CDT Nelida Corral MD LAB - BLOOD ORDERABLES Performing Organization Address City/State/ZIP Code Phon e Number [facility] [address] [place] [address] [facility] TSH with free T4 reflex (12/13/2010 8:13 AM CDT) athologist Signature TSH 2.73 0.4 - 5.0 [facility] mU/L CLINIC LAB Specimen Anatomical Collection Method Collection Time Receive d Time (Source) Location / / Volume Laterality Blood specimen 12/13/2010 8:13 AM 011 8:18 (specimen) CDT AM CDT Nelida Corral MD LAB - BLOOD ORDERABLES Performing Organization Address City/State/ZIP Code Phon e Number [facility] [address] [place] [address] [facility] CBC with platelets (12/13/2010 8:13 AM CDT) athologist Signature WBC 8.1 4.0 - 11.0 [place] 10e9/L [facility] RBC Count 4.90 4.4 - 5.9 [place] 10e12/L [facility] Hemoglobin 15.3 13.3 - [facility] 17.7 g/dL [facility] Hematocrit 42.9 40.0 - [facility] 53.0 % [facility] MCV 88 78 - 100 [facility] MCH 31.2 26.5 - [facility] 33.0 pg [facility] MCHC 35.7 31.5 - [facility] 36.5 g/dL [facility] RDW 12.8 10.0 - [facility] 15.0 % [facility] Platelet Count 187 150 - 450 [place] 10e9/L [facility] Specimen Anatomical Collection Method Collection Time Receive d Time (Source) Location / / Volume Laterality Blood specimen 12/13/2010 8:13 AM 011 8:18 (specimen) CDT AM CDT Nelida Corral MD LAB - BLOOD ORDERABLES Performing Organization Address City/State/ZIP Code Phon e Number [facility] [place] [address] [facility] documented in this encounter Visit Diagnoses Diagnosis Preop general physical exam - Primary Other specified pre-operative examinatio n Mild major depression (H) Major depressive disorder, single episod e, mild Vitamin D deficiencies Unspecified vitamin D deficiency Fatigue Other malaise and fatigue Vaccine for tetanus toxoid Need for prophylactic vaccination with t etanus toxoid alone documented in this encounter Care Teams Floral Decorator Relationship Specialty Start Date End Date Jonathan Velásquez MD PCP - General 11/10/05 01/21/11 documented as of this encounter
--- OUTSIDE RECORDS SUMMARY | 2022-08-16 14:32 | XMS_ITS | Encounter Summary ---
:1960 Author Organization [place] Address [address] [place] [address] Care Team Providers Name Role Phone Jonathan Velásquez MD Primary Care Provider Teresita Garcia MD Primary Care Provider Teresita Garcia MD Unavailable Teresita Garcia MD Unavailable Dolores Caputo MENHADEN VESSEL PILOT Unavailable Letha Vasquez MA Unavailable Audrey Hickman MD Unavailable [phone] Encounter Details Date Type Department Care Team Description 02/28/2007 [facility] Jonathan Velásquez [facility] Britta Chaudhry MD [address] XXX RETIRED X XX Drive [address] [place] [address] [place] [address] N[place] ZHOU [phone] (Wo rk) Social History Tobacco Use Types [...] do you attend sikh or Not asked orthodox services? Do you [...] Virtual Visit [place] [address] [place], [place] [phone] (Wo rk) documented as of this encounter Visit Diagnoses Diagnosis HOSPITAL DISCHARGE SUMMARY - Primary documented in this encounter Care Teams Park Aide Relationship Specialty Start Date End Date Jonathan Velásquez MD PCP - General 11/10/05 01/21/11 Teresita Garcia MD PCP - General Family Practice 01/22/11 [address] [place] [address] Teresita Garcia MD PCP - Assigned PCP 11/16/16 11/30/18 [address] [place] [address] Teresita Garcia MD Assigned PCP 11/16/16 12/28/21 [address] [place] [address] Dolores Caputo, MENHADEN VESSEL PILOT Lead Peace Officer Primary Care - CC 06/27/20 09/03/20 Letha Vasquez, Community Health Worker 07/05/20 09/03/20 MA Audrey Hickman Assigned PCP 12/29/21 [place] [address] [place] [address] documented as of this encounter
--- OUTSIDE RECORDS SUMMARY | 2022-08-16 14:32 | XMS_ITS | Encounter Summary ---
:1960 Author Organization [place] Address [address] [place] [address]. [place] [address] Care Team Providers Name Role Phone Jonathan Velásquez MD Primary Care Provider Reason for Visit Reason Onset Date Comments Refill Request 08/07/2009 selenium Encounter Details Date Type Department Care Team Description 08/07/2009 Refill [facility] Jonathan Velásquez MD Refill Request Clinic [place] XXX RETIRED XXX (selenium) [address] [place] [address] [place], [place] [address] [phone] (Wo rk) Social History Tobacco Use Types [...] do you attend yazdanism or Not asked holiness services? Do you belong to any clubs [...] this encounter Miscellaneous Notes Telephone Encounter - Adina Jimenez - 08/07/2009 3:46 PM CST Pt seen 08/30/08 ok to refill per so. Adina Jimenez RN CHECKER Telephone Encounter - Marnie Quesada - 08/07/2009 1:39 PM CST Last office visit: 08/30/2008 Future appointment: none Last refill: 12/11/2008 Marnie Quesada MA CHECKER documented in this encounter Plan of Treatment Upcoming Encounters Date Type Specialty Care Team Description 08/18/2022 Virtual Visit [facility] [place] [address] [place] [address] (Wo rk) documented as of this encounter Visit Diagnoses Diagnosis Other specified disease of hair and hair follicles - Primary documented in this encounter Care Teams Line Decorator Relationship Specialty Start Date End Date Jonathan Velásquez MD PCP - General 11/10/05 01/21/11 documented as of this encounter
--- OUTSIDE RECORDS SUMMARY | 2022-08-16 14:32 | XMS_ITS | Encounter Summary ---
:1960 Author Organization [place] Address [address] [facility] [place] [address] Care Team Providers Name Role Phone Jonathan Velásquez MD Primary Care Provider Encounter Details Date Type Department Care Team Description 06/01/2007 Historic Results INTERFACED REPORT Hiren Bahena MD [facility] [address] [place], [place] [phone] (Wo rk) Social History Tobacco Use Types [...] do you attend scientology or Not asked latter-day services? Do you [...] Virtual Visit [place] [address] [place] [address] (Wo rk) documented as of this encounter Procedures Procedure Name Priority Date/Time Associated Comments Diagnosis CREATININE Routine 06/01/2007 1:30 PM Results f or this CDT procedure are i n the results section. URINALYSIS COLLECTION Routine 06/01/2007 12:01 Re sults for this VOLUME & DURATION PM CDT procedure are in the results section. CREATININE URINE Routine 06/01/2007 12:01 Results for this CALCULATION ONLY (LAB PM CDT proced ure are in ONLY) the results section. CREATININE CLEARANCE Routine 06/01/2007 12:01 Res ults for this PM CDT procedure are i n the results section. documented in this encounter Results Creatinine (06/01/2007 1:30 PM CDT) athologist Signature Creatinine 1.22 0.80 - [facility] 1.50 mg/dL GFR Estimate 68 >60 [facility] mL/min/1.7 m2 GFR Estimate If 83 >60 [facility] Black mL/min/1.7 m2 Specimen Anatomical Collection Method Collection Time Receive d Time (Source) Location / / Volume Laterality 06/01/2007 1:30 PM 7 2:24 CDT PM CDT Hiren Bahena MD LAB - BLOOD ORDERABLES Performing Organization Address City/State/ZIP Code Phon e Number [facility] Creatinine clearance (06/01/2007 12:01 PM CDT) athologist Signature Height in cm 168 cm [facility] Weight in kg 76.0 kg [facility] Creatinine 1.22 0.80 - [facility] 1.50 mg/dL Raw Clearance 135 mL/min [facility] Standard 126 90 - 139 [facility] Clearance mL/min/1.7 m2 Specimen Anatomical Collection Method Collection Time Receive d Time (Source) Location / / Volume Laterality 06/01/2007 12:01 06/01/2007 2:26 PM CDT PM CDT Hiren Bahena MD LAB - URINE ORDERABLES Performing Organization Address City/State/ZIP Code Phon e Number [facility] Urinalysis collection volume & duration (06/01/2007 12:01 PM CDT) athologist Signature Duration in 24.0 h [facility] hours Volume in mL 3700 mL [facility] Specimen Anatomical Collection Method Collection Time Receive d Time (Source) Location / / Volume Laterality 06/01/2007 12:01 06/01/2007 2:26 PM CDT PM CDT Hiren Bahena MD LAB - URINE ORDERABLES Performing Organization Address City/State/ZIP Code Phon e Number [facility] Creatinine urine calculation only (06/01/2007 12:01 PM CDT) P athologist Signature Creatinine Urine 64 mg/dL [facility] Specimen Anatomical Collection Method Collection Time Receive d Time (Source) Location / / Volume Laterality 06/01/2007 12:01 06/01/2007 2:26 PM CDT PM CDT Hiren Bahena MD LAB - URINE ORDERABLES Performing Organization Address City/[facility]/ZIP Code Phon e Number [facility] documented in this encounter Visit Diagnoses Not on filedocumented in this encounter Care Teams Assistant Loan Processor Relationship Specialty Start Date End Date Jonathan Velásquez MD PCP - General 11/10/05 01/21/11 documented as of this encounter
--- OUTSIDE RECORDS SUMMARY | 2022-08-16 14:32 | XMS_ITS | Encounter Summary ---
:1960 Author Organization [place] Address [address] [place] [address]. [place] [address] Care Team Providers Name Role Phone Jonathan Velásquez MD Primary Care Provider Reason for Visit Reason Onset Date Comments Refill Request 06/26/2008 Nasonex 50 mcg Encounter Details Date Type Department Care Team Description 06/26/2008 Refill [facility] Jonathan Velásquez MD Refill Request (Nasonex [facility] [place] XXX RETIRED XXX 50 mcg) [address] [place] [address] [address] [facility] [address] [place] [address] [phone] (Wo rk) Social History Tobacco Use Types [...] do you attend voodoo or Not asked voodoo services? Do you [...] this encounter Miscellaneous Notes Telephone Encounter - Fauzia Angeles - 06/26/2008 12:41 PM CDT Last filled 10/04/07 Last OV 03/06/08 Caryn CIGARETTE MAKING MACHINE OPERATOR documented in this encounter Plan of Treatment Upcoming Encounters Date Type Specialty Care Team Description 08/18/2022 Virtual Visit [place] [address] [place] [address] (Wo rk) documented as of this encounter Visit Diagnoses Diagnosis Acute upper respiratory infections of ot her multiple sites documented in this encounter Care Teams Conductor/Brakeman Relationship Specialty Start Date End Date Jonathan Velásquez MD PCP - General 11/10/05 01/21/11 documented as of this encounter
--- OUTSIDE RECORDS SUMMARY | 2022-08-16 14:32 | XMS_ITS | Encounter Summary ---
:1960 Author Organization [place] Address [address] [facility] [place] [address] Care Team Providers Name Role Phone Jonathan Velásquez MD Primary Care Provider Teresita Garcia MD Primary Care Provider Teresita Garcia MD Unavailable Teresita Garcia MD Unavailable Reason for Visit Reason Onset Date Comments Medication Request 09/17/2010 FNA. Nasonex Encounter Details Date Type Department Care Team Description 09/17/2010 Telephone [facility] Jonathan Velásquez, Medic ation Request Clinic Britta Chaudhry MD (FNA. Nasonex) [address] [facility] XXX RETIRED X [address] [facility] [address] N[place] ZHOU [phone] (Wo rk) Social History Tobacco Use Types [...] do you attend mandaeism or Not asked caodaism services? Do you [...] this encounter Miscellaneous Notes Telephone Encounter - Laura Upton - 09/17/2010 2:43 PM CST Unable to refill per RN STO. Fowarded to provider. Last ordered 2007 VM request. Shelia Upton Team 2 RN /ACC NEER CONDUCTOR Telephone Encounter - Makenzie Lazaro - 09/17/2010 12:17 PM CST I called yesterday and a nurse was going to call me back. Patient states he called yesterday requesting a refill for Nasonex and forgot to turn on answering machine. Please call patient. Thank you. Makenzie Lazaro RN [facility] [phone] NEER CONDUCTOR documented in this encounter Plan of Treatment Upcoming Encounters Date Type Specialty Care Team Description 08/18/2022 Virtual Visit [place] [address] [place], [place] [phone] (Wo rk) documented as of this encounter Visit Diagnoses Diagnosis Acute upper respiratory infections of ot her multiple sites - Primary documented in this encounter Care Teams Financial Analyst Accountant Relationship Specialty Start Date End Date Jonathan Velásquez MD PCP - General 11/10/05 01/21/11 Teresita Garcia MD PCP - General Family Practice 01/22/11 [address] [place], [place] [phone] Teresita Garcia MD PCP - Assigned PCP 11/16/16 11/30/18 [address] [place] [address] Teresita Garcia MD Assigned PCP 11/16/16 12/28/21 [address] [place] [address] documented as of this encounter
--- OUTSIDE RECORDS SUMMARY | 2022-08-16 14:32 | XMS_ITS | Encounter Summary ---
:1960 Author Organization [place] Address [address] [facility] [place] [address] Care Team Providers Name Role Phone Jonathan Velásquez MD Primary Care Provider Encounter Details Date Type Department Care Team Description 12/06/2007 Historic Results INTERFACED REPORT Chris Mcmahan MD [facility] [address] [place] [address] (Wo rk) Social History Tobacco Use Types [...] do you attend episcopal or Not asked orthodox services? Do you [...] Virtual Visit [place] [address] [place] [address] (Wo rk) documented as of this encounter Procedures Procedure Name Priority Date/Time Associated Comments Diagnosis HEMOGRAM DIFFERENTIAL Routine 12/06/2007 3:50 PM Results for this AND PLATELET CDT procedure are i n the results section. PLATELET COUNT Routine 12/06/2007 3:50 PM Results for this CDT procedure are i n the results section. HEPATIC FUNCTION Routine 12/06/2007 3:50 PM Resul ts for this PANEL CDT procedure are i n the results section. documented in this encounter Results Hepatic panel (12/06/2007 3:50 PM CDT) P athologist Signature AST 26 0 - 55 U/L [facility] Protein Total 6.9 6.0 - 8.2 [place] g/dL Albumin 4.4 3.3 - 4.6 [place] g/dL ALT 28 0 - 70 U/L [facility] Alkaline 53 40 - 150 [place] Phosphatase U/L Bilirubin 0.0 0.0 - 0.3 [place] Conjugated mg/dL Bilirubin Delta 0.0 0.0 - 0.4 [place] mg/dL Bilirubin Total 0.5 0.2 - 1.3 [place] mg/dL Specimen Anatomical Collection Method Collection Time Receive d Time (Source) Location / / Volume Laterality 12/06/2007 3:50 PM 8 3:53 CDT PM CDT Chris Mcmahan MD LAB - BLOOD ORDERABLES Performing Organization Address City/State/ZIP Code Phon e Number [place] Hemogram differential and platelet (12/06/2007 3:50 PM CDT) [facility] gist Method Time Signature MCV 89 78 - 100 [place] fl MCH 30.9 26.5 - [place] 33.0 pg MCHC 34.9 31.5 - [place] 36.5 g/dL RDW 14.0 10.0 - [place] 15.0 % WBC 6.4 4.0 - [place] 11.0 10e9/L RBC Count 4.64 4.4 - 5.9 [place] 10e12/L Hemoglobin 14.3 13.3 - [place] 17.7 g/dL Hematocrit 41.1 40.0 - [place] 53.0 % % Neutrophils 48 40 - 75 % [facility] % Lymphocytes 42 20 - 48 % [place] % Monocytes 8 0 - 12 % [place] % Eosinophils 1 0 - 6 % [place] % Basophils 1 0 - 2 % [facility] Absolute 3.0 1.6 - 8.3 [place] Neutrophil 10e9/L Absolute 2.7 0.8 - 5.3 [place] Lymphocytes 10e9/L Absolute 0.5 0.0 - 1.3 [place] Monocytes 10e9/L Absolute 0.1 0.0 - 0.7 [facility] Eosinophils 10e9/L Absolute 0.0 0.0 - 0.2 [place] Basophils 10e9/L Diff Method Automated [facility] Method Specimen Anatomical Collection Method Collection Time Receive d Time (Source) Location / / Volume Laterality 12/06/2007 3:50 PM 8 3:53 CDT PM CDT Chris Mcmahan MD LAB - BLOOD ORDERABLES Performing Organization Address City/[facility] Code Phon e Number [facility] Platelet count (12/06/2007 3:50 PM CDT) P athologist Signature Platelet Count 197 150 - 450 [place] 10e9/L Specimen Anatomical Collection Method Collection Time Receive d Time (Source) Location / / Volume Laterality 12/06/2007 3:50 PM 8 4:07 CDT PM CDT Chris Mcmahan MD LAB - BLOOD ORDERABLES Performing Organization Address City/State/ZIP Code Phon e Number [facility] documented in this encounter Visit Diagnoses Not on filedocumented in this encounter Care Teams Social And Political Studies Professor Relationship Specialty Start Date End Date Jonathan Velásquez MD PCP - General 11/10/05 01/21/11 documented as of this encounter
--- OUTSIDE RECORDS SUMMARY | 2022-08-16 14:32 | XMS_ITS | Encounter Summary ---
:1960 Author Organization [place] Address [address] [place] [address]. [place] [address] Care Team Providers Name Role Phone Jonathan Velásquez MD Primary Care Provider Reason for Visit Reason Onset Date Comments Refill Request 08/13/2010 selenium sulfide sha mpoo Encounter Details Date Type Department Care Team Description 08/13/[address] [facility] Jonathan Velásquez MD Refill Request (selenium [facility] XXX RETIRED XXX sulfide shampoo) [address] [place] [address] George Chaudhry [place] [facility] [place] [phone] (Wo rk) Social History Tobacco Use Types [...] do you attend gnosticism or Not asked uatsdin services? Do you [...] this encounter Miscellaneous Notes Telephone Encounter - VivluciMel - 08/13/2010 12:05 PM CST Last Office Visit: 09/09/08 Last refill date: none stated Future appt: Nothing scheduled at this time. Mel Fish CMA ER PACKER documented in this encounter Plan of Treatment Upcoming Encounters Date Type Specialty Care Team Description 08/18/2022 Virtual Visit [place] [address] [place] [address] (Wo rk) documented as of this encounter Visit Diagnoses Diagnosis Other specified disease of hair and hair follicles documented in this encounter Care Teams Lamp Developer Relationship Specialty Start Date End Date Jonathan Velásquez MD PCP - General 11/10/05 01/21/11 documented as of this encounter
--- OUTSIDE RECORDS SUMMARY | 2022-08-16 14:32 | XMS_ITS | Encounter Summary ---
:1960 Author Organization [place] Address [address] [facility] [address] Care Team Providers Name Role Phone Jonathan Velásquez MD Primary Care Provider Teresita Garcia MD Primary Care Provider Teresita Garcia MD Unavailable Teresita Garcia MD Unavailable Dolores Caputo CRM CONSULTANT Unavailable Letha Vasquez MA Unavailable Audrey Hickman MD Unavailable [phone] Encounter Details Date Type Department Care Team Description 02/28/2007 [facility] Jonathan Velásquez Abbot t [facility] Britta Chaudhry MD H[facility] 0 [facility] XXX RETIRED X XX Neurology [address] [place] [address] [place] [address] NABIL ZHOU [phone] (Wo rk) Social History Tobacco Use Types [...] do you attend congregation or Not asked restorationism services? Do you belong to any clubs or Not asked organizations such as congregation groups, unions, [employer] or athletic groups, or school groups? How [...] Virtual Visit [place] [address] [place], [place] [phone] (Wo rk) documented as of this encounter Visit Diagnoses Diagnosis H & P - Primary documented in this encounter Care Teams Ground Operations Crew Member Relationship Specialty Start Date End Date Jonathan Velásquez MD PCP - General 11/10/05 01/21/11 Teresita Garcia MD PCP - General Family Practice 01/22/11 [address] [place] [address] Teresita Garcia MD PCP - Assigned PCP 11/16/16 11/30/18 [address] [place], [place] [phone] Teresita Garcia MD Assigned PCP 11/16/16 12/28/21 [address] [place], [place] [phone] Dolores Caputo LSW Lead Goodwill Ambassador Primary Care - CC 06/27/20 09/03/20 Letha Vasquez, Community Health Worker 07/05/20 09/03/20 [place] Audrey Hickman Assigned PCP 12/29/21 MD Bernie [address] [place] [address] documented as of this encounter
--- OUTSIDE RECORDS SUMMARY | 2022-08-16 14:32 | XMS_ITS | Encounter Summary ---
:1960 Author Organization [place] Address [address] [facility] [place] [address] Care Team Providers Name Role Phone Jonathan Velásquez MD Primary Care Provider Teresita Garcia MD Primary Care Provider Teresita Garcia MD Unavailable Teresita Garcia MD Unavailable Dolores Caputo INSIDE SALES ASSOCIATE Unavailable Letha Vasquez MA Unavailable Audrey Hickman MD Unavailable [phone] Encounter Details Date Type Department Care Team Description 02/27/2007 [facility] Jonathan Velásquez Abbot t [facility] Britta Chaudhry MD [address] XXX RETIRED X XX Drive [address] [place] [address] [place] [id number] NABIL ZHOU [phone] (Wo rk) Social History Tobacco Use Types [...] or relatives? How often do you attend latter day or Not asked oriental orthodox services? Do you belong to any clubs or Not asked organizations such as latter day groups, unions, fraternal or athletic groups, or [...] Virtual [place] [address] [place], [place] [phone] (Wo rk) documented as of this encounter Visit Diagnoses Diagnosis EMERGENCY DEPT - Primary documented in this encounter Care Teams Air [employer] Ground Operations Supervisor Relationship Specialty Start Date End Date Jonathan Velásquez MD PCP - General 11/10/05 01/21/11 Teresita Garcia MD PCP - General Family Practice 01/22/11 [address] [place] [address] Teresita Garcia MD PCP - Assigned PCP 11/16/16 11/30/18 [address] [place] [address] Teresita aGrcia MD Assigned PCP 11/16/16 12/28/21 [address] [place] [address] Dolores Caputo, INSIDE SALES ASSOCIATE Lead Nurse Reviewer Primary Care - CC 06/27/20 09/03/20 Letha Vasquez, Community Health Worker 07/05/20 09/03/20 MA Audrey Hickman Assigned PCP 12/29/21 MD Bernie [address] [place] [address] documented as of this encounter
--- OUTSIDE RECORDS SUMMARY | 2022-08-16 14:32 | XMS_ITS | Encounter Summary ---
:1960 Author Organization [place] Address [facility] [place] [address] Care Team Providers Name Role Phone Jonathan Velásquez MD Primary Care Provider Reason for Visit Reason Comments Urgent Care Nausea x3 days, loss of appetite Breathing Problem lungs hurt, muscles in forea tesha and legs spastic, has MS Encounter Details Date Type Department Care Team Description 07/26/2008 Office Visit [employer] Wilfrido Henley, Rachana lized Weakness; [facility] [place] PA-C Spasticity [address] [place] [phone] Social History Tobacco Use Types Packs/Day Years [...] do you attend restoration or Not asked latter day services? Do [...] Taken Comments Blood Pressure - - Pulse 88 07/26/2008 7:30 PM CDT Temperature 36.1 ??C (97 ??F) 07/26/2008 7:30 PM CDT Respiratory Rate - - Oxygen Saturation 99% 07/26/2008 7:30 PM CDT Inhaled Oxygen Concentration - - Weight 77.1 kg (170 lb) 07/26/2008 7:30 PM CDT Height - - Body Mass Index 26.63 03/06/2008 3:15 PM CDT documented in this encounter Progress Notes Wilfrido Henley - 07/26/2008 9:49 PM CDT SUBJECTIVE: Dejuan Rodriguez is a 47 year old male presenting with a chief complaint of feeling ill, having spasms of his muscles, feeling nauseated at times.. Onset of symptoms was 3 day(s) ago. Course of illness is same. Severity moderate Current and Associated symptoms: weakness and spasms of muscles Treatment measures tried include none. Predisposing factors include hx of MS and UTIs. Past Medical History Diagnosis Date ??? Multiple Sclerosis ??? Juvenile Osteochondrosis of Hip and Pelvis ??? Other Specified Disorder of Bladder neurogenic Current outpatient prescriptions Medication Sig ??? VICODIN 5-500 MG OR TABS ONE TO TWO TABLETS EVERY 4 TO 6 HOURS NEEDED FOR PAIN ??? BACLOFEN 10 MG OR TABS 1 TABLET 3 TIMES DAILY ??? SENNA 15 MG OR TABS 4 TABLETS AT BEDTIME ??? MULTIPLE VITAMIN OR TABS 1 TABLET DAILY ??? SEPTRA DS 800-160 MG OR TABS ONE TABLET TWICE DAILY ??? DITROPAN 5 MG OR TABS 1 TABLET 3 TIMES DAILY ??? NASONEX 50 MCG/ACT NA SUSP INHALE 2 SPRAYS IN EACH NOSTRIL ONE DAILY ??? KLONOPIN 0.5 MG OR TABS 1 TABLET 3 TIMES DAILY ??? FLOMAX 0.4 MG OR CP24 1 TABLET DAILY AFTER A MEAL ??? DETROL LA 4 MG OR CP24 ONE DAILY ??? SELENIUM SULFIDE 2.5 % EX SHAM shampoo with daily ??? TYSABRI 300 MG/15ML IV CONC 300 MG EVERY 4 WEEKS ??? VIAGRA 100 MG OR TABS 1 TABLET DAILY NEEDED History Substance Use Topics ??? Tobacco Use: Never ??? Alcohol Use: No ROS: CONSTITUTIONAL:NEGATIVE for fever, chills, change in weight INTEGUMENTARY/SKIN: NEGATIVE for worrisome rashes, moles or lesions ENT/MOUTH: NEGATIVE for ear, mouth and throat problems RESP:NEGATIVE for significant cough or SOB CV: NEGATIVE for chest pain, palpitations or peripheral edema GI: POSITIVE for nausea at times : negative for dysuria, hematuria, decreased urinary stream, erectile dysfunction MUSCULOSKELETAL: Positive for muscle spasticity NEURO: POSITIVE for generalized weakness OBJECTIVE :Pulse 88 Temp (Src) 97 ??F (36.1 ??C) (Oral) Wt 170 lb (77.111 kg) SpO2 99% GENERAL APPEARANCE: healthy, alert and no distress EYES: EOMI, PERRL, conjunctiva clear HENT: ear canals and TM's normal. Nose and mouth without ulcers, erythema or lesions NECK: supple, nontender, no lymphadenopathy RESP: lungs clear to auscultation - no rales, rhonchi or wheezes CV: regular rates and rhythm, normal S1 S2, no murmur noted ABDOMEN: soft, nontender, no HSM or masses and bowel sounds normal Extremities: no peripheral edema or tenderness, peripheral pulses normal NEURO: Normal strength and tone, sensory exam grossly normal, normal speech and mentation SKIN: no suspicious lesions or rashes ASSESSMENT: Generalized Weakness Muscle Spasticity PLAN: Rx Orders Placed This Encounter Procedure ??? Chest x-ray 2 vw ??? Ua micro if positive ??? Cbc with platelets ??? A.m.a. comprehensive met.panel Advised patient that there does not seem to be any abnormal urine or blood tests. I advise patient to follow up with his MS physician for further evaluation Go to ER if symptoms worsen See orders in [employer] documented in this encounter Nursing Notes 07/26/2008 7:30 PM CDT >> ALIE GREER Wed Jul 26, 2008 7:35 PM Patient presents with: Urgent Care Nausea - x3 days, loss of appetite Breathing Problem - lungs hurt, muscles in forearms and legs spastic, has MS Initial Pulse 88 Temp (Src) 97 ??F (36.1 ??C) (Oral) Wt 170 lb (77.111 kg) Estimated Body mass index is 26.63 kg/(m^2) as calculated from: Height of 5' 7 (1.702 m) as of 03/06/08 Weight of 170 lb (77.111 kg) as of this encounter BP completed using cuff size: NA (Not Taken) Signed by Alie Greer LPN documented in this encounter Plan of Treatment Upcoming Encounters Date Type Specialty Care Team Description 08/18/2022 Virtual [place] [address] [place], [place] [phone] (Wo rk) documented as of this encounter Procedures Procedure Name Priority Date/Time Associated Comments Diagnosis CL AFF CBC WITH Routine 07/26/2008 7:54 PM Generalized Result s for this PLATELETS CDT Weakness procedure are in Spasticity the results section. HCL COMPREHENSIVE Routine 07/26/2008 7:54 PM Generalized Resu lts for this METABOLIC PANEL CDT Weakness procedure are in Spasticity the results section. HCL UA MICRO IF Routine 07/26/2008 7:53 PM Generalized Result s for this POSITIVE CDT Weakness procedure are in Spasticity the results section. HC CHEST TWO VIEWS, Routine 07/26/2008 Generalized Results for this FRONT/LAT Weakness procedure are in Spasticity the results section. documented in this encounter Results (ABNORMAL) A.M.A. COMPREHENSIVE MET.PANEL (07/26/2008 7:54 PM CDT) P athologist Signature Sodium 139 133 - 144 [facility] mmol/L [facility] Potassium 3.8 3.4 - 5.3 [facility] mmol/L [facility] Chloride 104 94 - 109 [facility] mmol/L [facility] Carbon Dioxide 22 20 - 32 [facility] mmol/L [facility] Anion Gap 12 6 - 17 [facility] mmol/L [facility] Glucose 118 (H) 60 - 99 [facility] mg/dL [facility] Urea Nitrogen 15 5 - 24 [facility] mg/dL [facility] Creatinine 1.12 0.66 - [facility] 1.25 mg/dL [facility] Comment: New IDMS-traceable calibration beginning 01/27/08 GFR Estimate 71 >60 mL/min/1.7m2 [facility] [place] [facility] GFR Estimate If Black 85 >60 mL/min/1.7m2 F [facility] Calcium 9.3 8.5 - 10.4 mg/dL [facility] Bilirubin Total 0.6 0.2 - 1.3 mg/dL [facility] Albumin 4.8 3.9 - 5.1 g/dL [facility] Comment: Reference range changed on 05/30. Protein Total 7.7 6.8 - 8.8 g/dL [facility] Comment: As of 08, reference range reflects plasma specimen type. Alkaline Phosphatase 55 40 - 150 U/L [facility] ALT 40 0 - 70 U/L [facility] [place] [facility] AST 31 0 - 55 U/L [facility] [place] Specimen Anatomical Collection Method Collection Time Receive d Time (Source) Location / / Volume Laterality 07/26/2008 7:54 PM 8 7:59 CDT PM CDT Wilfrido Henley PA-C LABORATORY Performing Organization Address City/State/ZIP Code Phon e Number [facility] [address] [place] [address] [facility] CBC WITH PLATELETS (07/26/2008 7:54 PM CDT) P athologist Signature WBC 7.3 4.0 - 11.0 [place] 10e9/L [facility] RBC Count 5.00 4.4 - 5.9 [place] 10e12/L [facility] Hemoglobin 15.1 13.3 - [facility] 17.7 g/dL [facility] Hematocrit 43.2 40.0 - [facility] 53.0 % [facility] MCV 86 78 - 100 [place] fl [facility] MCH 30.2 26.5 - [facility] 33.0 pg [facility] MCHC 35.0 31.5 - [place] 36.5 g/dL [facility] RDW 11.0 10.0 - [place] 15.0 % [facility] Platelet Count 185 150 - 450 [place] 10e9/L [facility] Specimen Anatomical Collection Method Collection Time Receive d Time (Source) Location / / Volume Laterality 07/26/2008 7:54 PM 8 7:59 CDT PM CDT Wilfrido Henley PA-C LABORATORY Performing Organization Address City/[facility]/ZIP Code Phon e Number [facility] [address] [place] [address] [facility] (ABNORMAL) UA MICRO IF POSITIVE (07/26/2008 7:53 PM CDT) [facility] gist Method Time Signature Color Urine Yellow [facility] Appearance Urine Clear [facility] Glucose Urine Negative NEG mg/dL [facility] Bilirubin Urine Negative NEG [facility] Ketones Urine Negative NEG mg/dL [facility] Specific [place] <=1.005 1.003 - [place] Urine 1.035 [facility] Blood Urine Negative NEG [facility] pH Urine 7.5 (H) 5.0 - 7.0 [place] pH [facility] Protein Albumin Negative NEG mg/dL [place] Urine [facility] Urobilinogen 0.2 0.2 - 1.0 [place] Urine EU/dL [facility] Nitrite Urine Negative NEG [facility] Leukocyte Negative NEG [place] Esterase Urine [facility] Source Midstream [place] Urine [facility] Specimen Anatomical Collection Method Collection Time Receive d Time (Source) Location / / Volume Laterality 07/26/2008 7:53 PM 8 7:58 CDT PM CDT Wilfrido Henley PA-C LABORATORY Performing Organization Address City/[facility]/ZIP Code Phon e Number [facility] [address] [place] [address] [facility] CHEST X-RAY 2 VW (07/26/2008) Anatomical Region Laterality Modality Other Impressions 07/26/2008 REPORT OF OUTSIDE FILMS FROM [facility]/[place] U/C [facility] DEJUAN RODRIGUEZ ?: 62 CHEST TWO VIEWS: 07/26/08 FINDINGS: Negative. ??No active infiltra josr. Dejuan Simeon M.D./jenny D/T: ??07/27/08 Electronically filed by Kirstie Magallon ??07/27/2008 ??10:52 AM Wilfrido Henley PA-C GENERAL IMAGING documented in this encounter Visit Diagnoses Diagnosis Generalized weakness Other malaise and fatigue Spasticity Abnormal involuntary movements documented in this encounter Care Teams Government Affairs Director Relationship Specialty Start Date End Date Jonathan Velásquez MD PCP - General 11/10/05 01/21/11 documented as of this encounter
--- OUTSIDE RECORDS SUMMARY | 2022-08-16 14:32 | XMS_ITS | Encounter Summary ---
:1960 Author Organization [place] Address [facility] [place] [address] Care Team Providers Name Role Phone Jonathan Velásquez MD Primary Care Provider Reason for Visit Reason Comments Flu Walk-in:Flu like symptoms Encounter Details Date Type Department Care Team Description 10/02/2010 Allied Health/Nurse [facility] Flu (Walk-in:Flu like Visit Clinic [facility]) [facility], [address] [place] [address] Social History Tobacco Use Types Packs/Day Years [...] do you attend baptism or Not asked synagogue services? 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 He ?'s a bladder infection. He self caths. Unable to get urine sample today. Complaining of some lower back pain, JIANG, and increase spasticity of body. No fever. No appointments available today. Will schedule appointment with Dr. Garcia tomorrow for evaluation. Patient comfortable with advice. Haily Adams RN MBLER TRUCK TRAILER documented in this encounter Plan of Treatment Upcoming Encounters Date Type Specialty Care Team Description 08/18/2022 Virtual Visit [place] [address] [place] [address] (Wo rk) documented as of this encounter Visit Diagnoses Diagnosis Flu-like symptoms - Primary Influenza with other respiratory manifes tations documented in this encounter Care Teams Customer Service Manager Relationship Specialty Start Date End Date Jonathan Velásquez MD PCP - General 11/10/05 01/21/11 documented as of this encounter
--- OUTSIDE RECORDS SUMMARY | 2022-08-16 14:32 | XMS_ITS | Encounter Summary ---
:1960 Author Organization [place] Address [address] [place] [address]. [place] [address] Care Team Providers Name Role Phone Jonathan Velásquez MD Primary Care Provider Reason for Visit Reason Comments Hair/Scalp Problem itchy scalp, has had for yea rs Encounter Details Date Type Department Care Team Description 03/06/2008 Office Visit [facility] Jonathan Velásquez, Other Specified Clinic Britta Chaudhry MD Disease of Hair and [address] [place] [address] XXX RETIRED X XX Hair [address] [place] [address] (Primary Dx) [place] [address] NABIL ZHOU [phone] [address] Social History Tobacco Use Types Packs/Day Years [...] or relatives? How often do you attend presybeterian or Not asked alevism services? Do you belong to any clubs or Not asked organizations such as presybeterian groups, unions, fraternal or athletic groups, or [...] Sign Reading Time Taken Comments Blood Pressure 100/62 03/06/2008 3:15 PM CDT Pulse 85 03/06/2008 3:15 PM CDT Temperature 36.7 ??C (98.1 ??F) 03/06/2008 3:15 PM CDT Respiratory Rate 16 03/06/2008 3:15 PM CDT Oxygen Saturation - - Inhaled Oxygen Concentration - - Weight 72.6 kg (160 lb) 03/06/2008 3:15 PM CDT Height 170.2 cm (5' 7) 03/06/2008 3:15 PM CDT Body Mass Index 25.06 03/06/2008 3:15 PM CDT documented in this encounter Progress Notes Jonathan Velásquez - 03/06/2008 5:20 PM CDT Subjective: patient complains of severe dandruff problems for the last 20 some years. He has used Selsun blue and just about every other dandruff shampoo on the market. Patient complains that his scalpitches as well. He has tried a new green tea shampoo and states that for the past two days his scalphas felt quite well. Objective:Blood pressure 100/62, pulse 85, temperature 98.1 ??F (36.7 ??C), temperature source Oral,resp. rate 16, height 5' 7 (1.702 m), weight 160 lb (72.576 kg). He appears well, in no apparent distress. Alert and oriented times three, pleasant and cooperative. Vital signs are as noted by the nurse. Patient has a faint erythema of the scalp. No significant scabs are noted. No significant flicking noted at this time.Assessment/Plan: 704.8 Other Specified Disease of Hair and Hair Follicles (primary encounter diagnosis) Comment: May alternate this with current shampoo. Plan: SELENIUM SULFIDE 2.5 % EX SHAM Follow up prn documented in this encounter Nursing Notes 03/06/2008 3:15 PM CDT >> GEORGIANA CARPENTER Mon Mar 06, 2008 3:18 PM Patient presents with: Hair/Scalp Problem - itchy scalp, has had for years BP 100/62 Pulse 85 Temp (Src) 98.1 ??F (36.7 ??C) (Oral) Resp 16 Ht 5' 7 (1.702 m) Wt 160 lb (72.576 kg) Body Mass Index is Body mass index is 25.06 kg/(m^2). BP completed using cuff size: large SMA Juliet documented in this encounter Plan of Treatment Upcoming Encounters Date Type Specialty Care Team Description 08/18/2022 Virtual Visit [place] [address] [place] [address] (Wo rk) documented as of this encounter Visit Diagnoses Diagnosis Other specified disease of hair and hair follicles - Primary documented in this encounter Care Teams Taxation Accountant Relationship Specialty Start Date End Date Jonathan Velásquez MD PCP - General 11/10/05 01/21/11 documented as of this encounter
--- OUTSIDE RECORDS SUMMARY | 2022-08-16 14:32 | XMS_ITS | Encounter Summary ---
:1960 Author Organization [place] Address [address] [facility] [place] [address] Care Team Providers Name Role Phone Jonathan Velásquez MD Primary Care Provider Encounter Details Date Type Department Care Team Description 05/25/2007 Results Only [facility], Hiren gómez MD [facility] Results [facility] [address] [facility] [address] [place], [place] [address] (Wo rk) Social History Tobacco Use Types [...] do you attend taoist or Not asked congregational services? Do you [...] Virtual [place] [address] [place] [address] (Wo rk) documented as of this encounter Procedures Procedure Name Priority Date/Time Associated Diagnosis Comme nts US Routine 05/25/2007 11:46 AM Results for this RETROPERITONEAL, CDT procedure a re in COMPLETE the results section. documented in this encounter Results SONO RETROPERITONEAL (05/25/2007 11:46 AM CDT) Anatomical Region Laterality Modality Other Specimen (Source) Anatomical Collection Method Collection Time Re ceived Time Location / / Volume Laterality 05/25/2007 11:46 AM CDT Impressions 05/25/2007 4:15 PM CDT RENAL ULTRASOUND: HISTORY: ??neurogenic bladder COMPARISON: None. FINDINGS: The kidneys are normal in size with the right kidney measuring 10.5 cm in length and the left kidney measuring ??10.9 cm in length. There is no ??hydronephrosis. No renal calculi are evident. Limited images of the bladder are unrema rkable. IMPRESSION: Normal renal ultrasound. Hiren Bahena MD SPECIAL IMAGING STUDIES documented in this encounter Visit Diagnoses Not on filedocumented in this encounter Care Teams Ruby Rails Developer Relationship Specialty Start Date End Date Jonathan Velásquez MD PCP - General 11/10/05 01/21/11 documented as of this encounter
--- OUTSIDE RECORDS SUMMARY | 2022-08-16 14:32 | XMS_ITS | Encounter Summary ---
:1960 Author Organization [place] Address [address] [facility] [place] [address] Care Team Providers Name Role Phone Jonathan Velásquez MD Primary Care Provider Reason for Visit Reason Comments Back Pain Encounter Details Date Type Department Care Team Description 08/30/2008 Office Visit [facility] Brad Hernandez ack Pain (Primary Dx); Clinic Ione Salbador Pena MD URI (Upper Respiratory Infection) [facility], [address] [place], [place] [address] [address] [facility] [phone] [place], [place] [address] (Wo rk) Social History Tobacco Use Types [...] or relatives? How often do you attend shinto or Not asked voodoo services? Do you belong to any clubs or Not asked organizations such as shinto groups, unions, fraternal or athletic groups, or [...] Sign Reading Time Taken Comments Blood Pressure 92/60 08/30/2008 10:30 AM HIRED HELP Pulse 70 08/30/2008 10:30 AM HIRED HELP Temperature 35.3 ??C (95.6 ??F) 08/30/2008 10:30 AM HIRED HELP Respiratory Rate - - Oxygen Saturation 98% 08/30/2008 10:30 AM HIRED HELP Inhaled Oxygen Concentration - - Weight 75.3 kg (166 lb) 08/30/2008 10:30 AM HIRED HELP Height 170.2 cm (5' 7) 08/30/2008 10:30 AM HIRED HELP Body Mass Index 26 08/30/2008 10:30 AM HIRED HELP documented in this encounter Progress Notes Brad Hernandez - 08/30/2008 10:34 AM CST CC: back pain. Symptoms began 3 week(s) ago, have been frequency constant and are worse. Pain is located in the upper back bilateral region, with radiation to Does not radiate, and are at worst a 8 on a scale of 1-10. Personal hx of back pain is recurrent self limited episodes of low back pain in the past. Pain is exacerbated by: bending and changing position. Pain is relieved by: none. Associated sx include: none. Previous plain films obtained: No. Past Medical History Diagnosis Date ??? Multiple Sclerosis sees neurology at [facility] ??? Juvenile Osteochondrosis of Hip and Pelvis ??? Other Specified Disorder of Bladder neurogenic- Dr. Mojica Current outpatient prescriptions Medication Sig ??? VICODIN 5-500 MG OR TABS ONE TO TWO TABLETS EVERY 4 TO 6 HOURS NEEDED FOR PAIN ??? BACLOFEN 10 MG OR TABS 1 TABLET 3 TIMES DAILY ??? SENNA 15 MG OR TABS 4 TABLETS AT BEDTIME ??? MULTIPLE VITAMIN OR TABS 1 TABLET DAILY ??? DITROPAN 5 MG OR TABS 1 TABLET 3 TIMES DAILY ??? NASONEX 50 MCG/ACT NA SUSP INHALE 2 SPRAYS IN EACH NOSTRIL ONE DAILY ??? SELENIUM SULFIDE 2.5 % EX SHAM shampoo with daily ??? TYSABRI 300 MG/15ML IV CONC 300 MG EVERY 4 WEEKS ??? KLONOPIN 0.5 MG OR TABS 1 TABLET 3 TIMES DAILY ??? VIAGRA 100 MG OR TABS 1 TABLET DAILY NEEDED ??? FLOMAX 0.4 MG OR CP24 1 TABLET DAILY AFTER A MEAL Allergies: Review of patient's allergies indicates no known allergies. OBJECTIVE: BP 92/60 Pulse 70 Temp (Src) 95.6 ??F (35.3 ??C) (Oral) Ht 5' 7 (1.702 m) Wt 166 lb (75.297kg) SpO2 98% : GENERAL APPEARANCE: healthy, alert and no distress [...] extremities normal- no gross deformities noted NEURO: gait abnormal and lower extremity spasticity LABS: Office Visit on 08/30/2008 Component Date Value Range Status ??? WBC (10e9/L) 08/30/2008 6.7 4.0-11.0 Final ??? RBC (10e12/L) 08/30/2008 4.75 4.4-5.9 Final ??? HGB (g/dL) 08/30/2008 14.9 13.3-17.7 Final ??? Hct (%) 08/30/2008 41.0 40.0-53.0 Final ??? MCV (fl) 08/30/2008 86 78-100 Final ??? MCH (pg) 08/30/2008 31.4 26.5-33.0 Final ??? MCHC (g/dL) 08/30/2008 36.3 31.5-36.5 Final ??? RDW (%) 08/30/2008 12.3 10.0-15.0 Final ??? PLT (10e9/L) 08/30/2008 157 150-450 Final ??? COLOR 08/30/2008 Yellow - Final ??? APPEARANCE 08/30/2008 Clear - Final ??? GLUCOSE (URINE) (mg/dL) 08/30/2008 Negative NEG- Final ??? BILI (URINE) 08/30/2008 Negative NEG- Final ??? KETONE (URINE) (mg/dL) 08/30/2008 Negative NEG- Final ??? SPECIFIC GRAVITY 08/30/2008 1.020 1.003-1.035 Final ??? BLOOD (URINE) 08/30/2008 Negative NEG- Final ??? pH, Urine (pH) 08/30/2008 5.5 5.0-7.0 Final ??? Protein, Albumin (mg/dL) 08/30/2008 Negative NEG- Final ??? UROBILINOGEN (EU/dL) 08/30/2008 0.2 0.2-1.0 Final ??? NITRITE 08/30/2008 Negative NEG- Final ??? Leuk Esterase 08/30/2008 Negative NEG- Final ??? Source 08/30/2008 Midstream Urine - Final CHEST X-RAY 2 VW: negative ASSESSMENT/PLAN: 724.5E Back Pain (primary encounter diagnosis) Comment: unknown etiology Plan: CBC WITH PLATELETS, UA MICRO IF POSITIVE, CHEST X-RAY 2 VW 465.9J URI (Upper Respiratory Infection) Comment: cold Plan: symptomatic and supportive care. Brad Hernandez MD [facility] D HELP documented in this encounter Nursing Notes 08/30/2008 10:30 AM CST >> LEONARDO CASTILLO Wed Aug 30, 2008 10:23 AM Dejuan Rodriguez presents for consult. No LMP recorded. BP 92/60 Pulse 70 Temp (Src) 95.6 ??F (35.3 ??C) (Oral) Ht 5' 7 (1.702 m) Wt 166 lb (75.297kg) SpO2 98% Body mass index is 26.00 kg/(m^2). BP completed using cuff size: regular. Leonardo Castillo MA documented in this encounter Plan of Treatment Upcoming Encounters Date Type Specialty Care Team Description 08/18/2022 Virtual Visit [place] [address] [place] [address] (Wo rk) documented as of this encounter Procedures Procedure Name Priority Date/Time Associated Diagnosis Comme nts HC CHEST TWO VIEWS, Routine 09/08/2008 9:17 AM Back pain Re sults for this FRONT/LAT HIRED HELP procedure are i n the results section. HCL UA MICRO IF Routine 08/30/2008 10:55 AM Back Pain Resul ts for this POSITIVE HIRED HELP procedure are i n the results section. CL AFF CBC WITH Routine 08/30/2008 10:52 AM Back Pain Resul ts for this PLATELETS HIRED HELP procedure are i n the results section. documented in this encounter Results CHEST X-RAY 2 VW (09/08/2008 9:17 AM HIRED HELP) Anatomical Region Laterality Modality Other Specimen (Source) Anatomical Collection Method Collection Time Re ceived Time Location / / Volume Laterality 09/08/2008 9:17 AM HIRED HELP Impressions 09/11/2008 7:40 AM HIRED HELP CHEST TWO VIEW* Sep 08, 2008 9:17:00 AM HISTORY: Pain. FINDINGS: Negative. Brad Hernandez MD GENERAL IMAGING UA MICRO IF POSITIVE (08/30/2008 10:55 AM HIRED HELP) [facility] gist Method Time Signature Color Urine Yellow [facility] Appearance Urine Clear [facility] Glucose Urine Negative NEG mg/dL [facility] Bilirubin Urine Negative NEG [facility] Ketones Urine Negative NEG mg/dL [facility] Specific [place] 1.020 1.003 - [place] Urine 1.035 [facility] Blood Urine Negative NEG [facility] pH Urine 5.5 5.0 - 7.0 [place] pH [facility] Protein Albumin Negative NEG mg/dL [place] Urine [facility] Urobilinogen 0.2 0.2 - 1.0 [place] Urine EU/dL [facility] Nitrite Urine Negative NEG [facility] Leukocyte Negative NEG [place] Esterase Urine [facility] Source Midstream [place] Urine [facility] Specimen Anatomical Collection Method Collection Time Receive d Time (Source) Location / / Volume Laterality 08/30/2008 10:55 08/30/2008 AM HIRED HELP 10:57 AM HIRED HELP Brad Hernandez MD LABORATORY Performing Organization Address City/State/ZIP Code Phon e Number [facility] [address] [facility] CBC WITH PLATELETS (08/30/2008 10:52 AM HIRED HELP) P athologist Signature WBC 6.7 4.0 - 11.0 [place] 10e9/L [facility] RBC Count 4.75 4.4 - 5.9 [place] 10e12/L [facility] Hemoglobin 14.9 13.3 - [facility] 17.7 g/dL [facility] Hematocrit 41.0 40.0 - [place] 53.0 % [facility] MCV 86 78 - 100 [place] fl [facility] MCH 31.4 26.5 - [place] 33.0 pg [facility] MCHC 36.3 31.5 - [place] 36.5 g/dL [facility] RDW 12.3 10.0 - [place] 15.0 % [facility] Platelet Count 157 150 - 450 [place] 10e9/L [facility] Specimen Anatomical Collection Method Collection Time Receive d Time (Source) Location / / Volume Laterality 08/30/2008 10:52 08/30/2008 AM HIRED HELP 10:54 AM HIRED HELP Brad Hernandez MD LABORATORY Performing Organization Address City/State/ZIP Code Phon e Number [address] [address] [facility] documented in this encounter Visit Diagnoses Diagnosis Back pain - Primary Backache, unspecified URI (upper respiratory infection) Acute upper respiratory infections of un specified site documented in this encounter Care Teams Dry Molder Relationship Specialty Start Date End Date Jonathan Velásquez MD PCP - General 11/10/05 01/21/11 documented as of this encounter
--- OUTSIDE RECORDS SUMMARY | 2022-08-16 14:32 | XMS_ITS | Encounter Summary ---
:1960 Author Organization [place] Address [facility] [place] [address] Care Team Providers Name Role Phone Jonathan Velásquez MD Primary Care Provider Reason for Referral Specialty Diagnoses / Procedures Referred By Contact Refer red To Contact [facility] GEORGE STAPLETON [address] [facility] NABIL FORD [phone] Referral ID Status Reason Start Date Expiration Date Visits Requ ested Visits Authorized Encounter Details Date Type Department Care Team Description 01/03/2011 Orders Only [facility] Jonathan Velásquez MD [place] XXX RETIRED XXX [address] [facility] Mohit johnson [address] [facility] NABIL Richard [phone] NAIBL RIOS [phone] [address] (Wo rk) Social History Tobacco Use Types [...] do you attend adventist or Not asked quaker services? Do you [...] Virtual [place] [address] [place] [address] (Wo rk) documented as of this encounter Procedures Procedure Name Priority Date/Time Associated Diagnosis Comme nts ZZ CONSULT UROLOGY Routine 07/30/2012 Result s for this procedure are i n the results section . documented in this encounter Results CONSULT UROLOGY (07/30/2012) Narrative This result has an attachment that is no t available. Jonathan Velásquez MD REFERRAL documented in this encounter Visit Diagnoses Not on filedocumented in this encounter Care Teams Psychology Tech Relationship Specialty Start Date End Date Jonathan Velásquez MD PCP - General 11/10/05 01/21/11 documented as of this encounter
--- OUTSIDE RECORDS SUMMARY | 2022-08-16 14:33 | XMS_ITS | Encounter Summary ---
:1960 Author Organization [place] Address [facility] [place] [address] Care Team Providers Name Role Phone Jonathan Velásquez MD Primary Care Provider Reason for Visit Reason Comments Sinus Problem past week Encounter Details Date Type Department Care Team Description 08/13/2006 Office Visit [facility] Patience Sampson APRN ACUTE MAXILLARY Clinic [facility] SINUSITIS (Primary Dx) [address] [place] [address] Social History Tobacco Use Types Packs/Day [...] you attend latter day or Not asked hindu services? Do you [...] Sign Reading Time Taken Comments Blood Pressure 102/63 08/13/2006 11:30 AM CUSTOMER TRAINING SPECIALIST Pulse 98 08/13/2006 11:30 AM CUSTOMER TRAINING SPECIALIST Temperature 36.6 ??C (97.9 ??F) 08/13/2006 11:30 AM CUSTOMER TRAINING SPECIALIST Respiratory Rate - - Oxygen Saturation - - Inhaled Oxygen Concentration - - Weight 78.9 kg (174 lb) 08/13/2006 11:30 AM CUSTOMER TRAINING SPECIALIST Height 166.4 cm (5' 5.5) 08/13/2006 11:30 AM CUSTOMER TRAINING SPECIALIST Body Mass Index 28.51 08/13/2006 11:30 AM CUSTOMER TRAINING SPECIALIST documented in this encounter Progress Notes Patience Sampson - 08/13/2006 8:01 PM CST S: Became ill 08/05/06 with fever, sore throat, nasal congestion. Has been taking Mucinex and Sudafedwith minimal relief. Had expected to feel better by today. Has pain in cheeks and upper teeth. Not sleeping well due to these symptoms. Tired. No chest congestion or cough. Had flu injection. Reviewed medical history. Has MS. No H/O asthma. Doesn't smoke. O: sounds congested EYES- sclera clear EARS- TM's normal NOSE- congested mucosa SINUSITIS- tender bilateral maxilla CHEST- clear lung sounds A: Encounter Diagnoses Code Name Primary? Qualifier ??? 461.0 ACUTE MAXILLARY SINUSITIS Yes P: Augmentin 875mg BID x 10 days Reviewed symptomatic cares Follow up if not improving as expected OMER TRAINING SPECIALIST documented in this encounter Nursing Notes 08/13/2006 11:30 AM CST >> J LUIS MORALES 08/13/2006 11:23 am Patient presents with: Sinus Problem - past week Initial BP 102/63 Pulse 98 Temp (Src) 97.9 (Oral) Ht 5' 5.5 (1.66m) Wt 174 lbs (78.9kg) Body mass index is 28.50 kg/(m^2).. BP completed using cuff size: rain Morales LPN documented in this encounter Plan of Treatment Upcoming Encounters Date Type Specialty Care Team Description 08/18/2022 Virtual Visit [place] [address] [place] [address] (Wo rk) documented as of this encounter Visit Diagnoses Diagnosis Acute maxillary sinusitis - Primary documented in this encounter Care Teams Rn Pediatric Icu Relationship Specialty Start Date End Date Jonathan Velásquez MD PCP - General 11/10/05 01/21/11 documented as of this encounter
--- OUTSIDE RECORDS SUMMARY | 2022-08-16 14:33 | XMS_ITS | Encounter Summary ---
:1960 Author Organization [place] Address [facility] [place] [address] Care Team Providers Name Role Phone Unavailable Primary Care Provider Unavailable Encounter Details Date Type Department Care Team Description 08/25/2005 Therapy Visit [place] Cyndi Crews iamCERVICA LGIA (Primary Athletic Medicine - PT Dx) George Stapleton [facility] GEORGE STAPLETON PhysicalTherapy [address] [place] [address] [address] GEORGE STAPLETON [place] [address] [phone] Social History Tobacco Use Types Packs/Day Years Used Date Smoking Tobacco: Never Assessed Alcohol Habits Answer Date Recorded How often [...] do you attend jain or Not asked oriental orthodox services? Do [...] documented as of this encounter Progress Notes Cyndi Fontenot - 08/25/2005 3:35 PM CST Please refer to the daily flowsheet for treatment today. ATCHER RADIOACTIVE WASTE DISPOSAL documented in this encounter Plan of Treatment Upcoming Encounters Date Type Specialty Care Team Description 08/18/2022 Virtual [place] [address] [place] [address] (Wo rk) documented as of this encounter Procedures Procedure Name Priority Date/Time Associated Diagnosis Comme nts ZZC THERAPEUTIC Routine 08/25/2005 3:36 PM DISPATCHER RADIOACTIVE WASTE DISPOSAL iamCERVICALGIA EXERCISES ZZC MECHANICAL TRACTION Routine 08/25/2005 3:36 PM DISPATCHER RADIOACTIVE WASTE DISPOSAL iamCERV ICALGIA THERAPY ZZC HOT OR COLD PACKS Routine 08/25/2005 3:36 PM DISPATCHER RADIOACTIVE WASTE DISPOSAL iamCERVIC ALGIA THERAPY documented in this encounter Visit Diagnoses Diagnosis iamCERVICALGIA - Primary Cervicalgia documented in this encounter
--- OUTSIDE RECORDS SUMMARY | 2022-08-16 14:33 | XMS_ITS | Encounter Summary ---
:1960 Author Organization [place] Address [facility] [place] [address] Care Team Providers Name Role Phone Unavailable Primary Care Provider Unavailable Encounter Details Date Type Department Care Team Description 08/22/2005 Therapy Visit [place] Cyndi Crews iamCERVICA LGIA (Primary Athletic Medicine - PT Dx) George Stapleton [facility] GEORGE STAPLETON PhysicalTherapy [address] [place] [address] [address] [facility] STAPLETON [facility] [address] [phone] Social History Tobacco Use Types Packs/Day Years [...] do you attend baptism or Not asked anglican services? Do you [...] this encounter Progress Notes Cyndi Fontenot - 08/22/2005 12:29 PM CST Please refer to the daily flowsheet for treatment today. SS DEVELOPER documented in this encounter Plan of Treatment Upcoming Encounters Date Type Specialty Care Team Description 08/18/2022 Virtual [place] [address] [place] [address] (Wo rk) documented as of this encounter Procedures Procedure Name Priority Date/Time Associated Diagnosis Comme nts ZZC THERAPEUTIC Routine 08/22/2005 12:29 PM iamCERVICALGIA EXERCISES ACCESS DEVELOPER ZZC MECHANICAL TRACTION Routine 08/22/2005 12:29 PM iamCERVICA LGIA THERAPY ACCESS DEVELOPER ZZC HOT OR COLD PACKS Routine 08/22/2005 12:29 PM iamCERVICALG IA THERAPY ACCESS DEVELOPER documented in this encounter Visit Diagnoses Diagnosis iamCERVICALGIA - Primary Cervicalgia documented in this encounter
--- OUTSIDE RECORDS SUMMARY | 2022-08-16 14:33 | XMS_ITS | Encounter Summary ---
:1960 Author Organization [place] Address [facility] [place] [address] Care Team Providers Name Role Phone Unavailable Primary Care Provider Unavailable Reason for Visit Reason Comments Cough x 2 weeks Encounter Details Date Type Department Care Team Description 09/16/2005 Office Visit [facility] Jonathan Velásquez, PNEUM ONIA, ORGANISM NOS (Primary Dx); Clinic Britta Chaudhry MD DEPRESSIVE DISORDER NEC [address] [facility] XXX RETIRED X [address] 0 [facility] [address] NABIL ZHOU [phone] [address] Social History Tobacco Use Types Packs/Day [...] do you attend mandaeism or Not asked jehovah's witness services? Do [...] Sign Reading Time Taken Comments Blood Pressure 117/71 09/16/2005 3:30 PM FIELD PROFESSIONAL Pulse 103 09/16/2005 3:30 PM FIELD PROFESSIONAL Temperature 36.7 ??C (98.1 ??F) 09/16/2005 3:30 PM FIELD PROFESSIONAL Respiratory Rate - - Oxygen Saturation - - Inhaled Oxygen Concentration - - Weight 73.9 kg (163 lb) 09/16/2005 3:30 PM FIELD PROFESSIONAL Height 167.6 cm (5' 6) 09/16/2005 3:30 PM FIELD PROFESSIONAL Body Mass Index 26.31 09/16/2005 3:30 PM FIELD PROFESSIONAL documented in this encounter Progress Notes Jonathan Velásquez - 09/16/2005 5:39 PM CST SUBJECTIVE: Dejuan Rodriguez is a 44 year old male who complains of nasal congestion, headache, earache, coughdescribed as harsh, productive of clear sputum and keeps awake at night, hoarseness and fatigue for several days. He denies a history of chills and denies a history of asthma. Patient does not smoke cigarettes but he does smoke marijuana on a daily basis. pATient also wanted to discuss depression with me today. He is seen as therapists who recommended that he go on antidepressant medication. His therapist is Randy Martin. Patient has MS and has been depressed over the past several months. He has been using a lot more potrecently as well. His therapist suggested that we start him on Procious Pro. I've explained to him that drugs of the SSRI class can have side effects such as weight gain, sexualdysfunction, insomnia, headache, nausea. These medications are generally effective at alleviating symptoms of anxiety and/or depression. OBJECTIVE:BP 117/71 Pulse 103 Temp (Src) 98.1 (Oral) Ht 5' 6 (1.68m) Wt 163 lbs (73.9kg) He appears tired, vital signs are as noted by the nurse. Ears normal. Throat and pharynx normal. Neck supple. No adenopathy in the neck. Nose is congested. Sinuses non tender. The chest reveals rales in the left lung laterally and at the base. Chest x-ray is negative for acute infiltrate. Assessment/Plan: 486 PNEUMONIA, ORGANISM NOS (primary encounter diagnosis) Note: stop smoking pot Plan: CHEST X-RAY 2 VW, KETEK 400 MG OR TABS, MUCINEX 600 MG OR TB12 follow up 2 weeks or prn if sx. worsen. 311 DEPRESSIVE DISORDER NEC Note: symptoms suggest he is moderately depressed but he is not suicidal. Plan: LEXAPRO 10 MG OR TABS follow up 2 weeks 30 min with >50% of time spent discussing his depressive sx and medication options. D PROFESSIONAL documented in this encounter Nursing Notes 09/16/2005 3:30 PM CST >> MARGARITA RODAS 09/16/2005 3:26 pm Patient presents with: Cough - x 2 weeks BP 117/71 Pulse 103 Temp (Src) 98.1 (Oral) Ht 5' 6 (1.68m) Wt 163 lbs (73.9kg) BP completed using cuff size: large. P.Bloedsamm HORIZONTAL RESAW OPERATOR documented in this encounter Plan of Treatment Upcoming Encounters Date Type Specialty Care Team Description 08/18/2022 Virtual Visit [facility] [place] [address] [place] [address] (Wo rk) documented as of this encounter Procedures Procedure Name Priority Date/Time Associated Diagnosis Comme [facility] CHEST TWO VIEWS, Routine 09/16/2005 Pneumonia, Organism R esults for this FRONT/LAT Nos procedure are i n the results section . documented in this encounter Results CHEST X-RAY 2 VW (09/16/2005) Anatomical Region Laterality Modality Other Impressions 09/16/2005 Ordering MD/Provider Initial Interpretation: Normal/Negative shielded Electronically filed by Mabel Whittington ??09/17/2005 ??4:22 PM . REPORT OF OUTSIDE FILMS FROM [facility] DEJUAN RODRIGUEZ : ??62 PA AND LEFT LATERAL CHEST: ??09/16/05 Normal in two views. Lyndon Leyva M.D./[facility] D & T: ??09/19/05 Electronically filed by Kirstie Magallon ??09/23/2005 ??9:48 AM Jonathan Velásquez MD GENERAL IMAGING documented in this encounter Visit Diagnoses Diagnosis Pneumonia, organism unspecified(486) - P rimary Pneumonia, organism unspecified Depressive disorder, not elsewhere class ified documented in this encounter
--- OUTSIDE RECORDS SUMMARY | 2022-08-16 14:33 | XMS_ITS | Encounter Summary ---
:1960 Author Organization [place] Address [facility] [place] [address] Care Team Providers Name Role Phone Jonathan Velásquez MD Primary Care Provider Reason for Visit Reason Onset Date Comments Erroneous encounter-disregard 09/04/2006 Encounter Details Date Type Department Care Team Description 09/04/2006 Telephone [facility] Jonathan Velásquez, [facility] Britta Chaudhry MD encounter-disregard [address] [facility] XXX [address] X [address] [facility] [address] NABIL ZHOU [phone] (Wo rk) Social History Tobacco Use [...] or relatives? How often do you attend worship or Not asked methodist services? Do you belong to any clubs or Not asked organizations such as worship groups, unions, fraternal or athletic groups, or [...] Virtual Visit [place] [address] [place] [address] (Wo rk) documented as of this encounter Visit Diagnoses Not on filedocumented in this encounter Care Teams Clinical Laboratory Aide Relationship Specialty Start Date End Date Jonathan Velásquez MD PCP - General 11/10/05 01/21/11 documented as of this encounter
--- OUTSIDE RECORDS SUMMARY | 2022-08-16 14:33 | XMS_ITS | Encounter Summary ---
:1960 Author Organization [place] Address [facility] [place] [address] Care Team Providers Name Role Phone Jonathan Velásquez MD Primary Care Provider Reason for Visit Reason Comments Cough dry cough and congestion, st uffed up Encounter Details Date Type Department Care Team Description 08/29/2006 Office Visit [facility] Jonathan Velásquez, ACUTE URI MULT [facility] Clinic Britta Chaudhry MD NEC (Primary Dx) [address] [facility] XXX [address] [facility] [place] [address] NABIL ZHOU [phone] Social History Tobacco Use Types Packs/Day [...] do you attend buddhist or Not asked scientologist services? Do you [...] Sign Reading Time Taken Comments Blood Pressure 116/74 08/29/2006 10:00 AM JAVA WEB ARCHITECT Pulse 99 08/29/2006 10:00 AM JAVA WEB ARCHITECT Temperature 36.3 ??C (97.4 ??F) 08/29/2006 10:00 AM JAVA WEB ARCHITECT Respiratory Rate - - Oxygen Saturation - - Inhaled Oxygen Concentration - - Weight 78.9 kg (174 lb) 08/29/2006 10:00 AM JAVA WEB ARCHITECT Height 162.6 cm (5' 4) 08/29/2006 10:00 AM JAVA WEB ARCHITECT Body Mass Index 29.87 08/29/2006 10:00 AM JAVA WEB ARCHITECT documented in this encounter Progress Notes Jonathan Velásquez - 08/29/2006 12:29 PM CST Subjective: Patient complains of a three day history of nasal congestion, being very plugged up in his nose. He did take some Mucinex last night and is feeling somewhat better this morning. He denies fever or chills. He was put on Augmentin for sinusitis about two weeks ago. He is worried that he is getting recurrent infection. Objective:BP 116/74 Pulse 99 Temp (Src) 97.4 (Tympanic) Ht 5' 4 (1.63m) Wt 174 lbs (78.9kg) He appears well, in no apparent distress. Alert and oriented times three, pleasant and cooperative. Vital signs are as noted by the nurse. ENT exam reveals pale boggy nasal mucosa with clear rhinorrhea. Pharynx looks normal. Neck supple without adenopathy or thyromegaly. Lungs are clear to auscultation. Assessment/Plan: 465.8 ACUTE URI MULT SITES NEC (primary encounter diagnosis) Note: Plan: NASONEX 50 MCG/ACT NA SUSP Continue Mucinex. Follow-up p.r.n. WEB ARCHITECT documented in this encounter Nursing Notes 08/29/2006 10:00 AM CST >> ROBYN WOODWARD 08/29/2006 9:51 am Patient presents with: Cough - dry cough and congestion, stuffed up BP 116/74 Pulse 99 Temp (Src) 97.4 (Tympanic) Ht 5' 4 (1.63m) Wt 174 lbs (78.9kg) Body Mass Index is Body mass index is 29.85 kg/(m^2). BP completed using cuff size: large. Right arm. Robyn Woodward LPN documented in this encounter Plan of Treatment Upcoming Encounters Date Type Specialty Care Team Description 08/18/2022 Virtual Visit [facility] [place] [address] [place] [address] (Wo rk) documented as of this encounter Visit Diagnoses Diagnosis Acute upper respiratory infections of ot her multiple sites - Primary documented in this encounter Care Teams Commissioning Engineer Relationship Specialty Start Date End Date Jonathan Velásquez MD PCP - General 11/10/05 01/21/11 documented as of this encounter
--- OUTSIDE RECORDS SUMMARY | 2022-08-16 14:33 | XMS_ITS | Encounter Summary ---
:1960 Author Organization [place] Address [facility] [place] [address] Care Team Providers Name Role Phone Unavailable Primary Care Provider Unavailable Encounter Details Date Type Department Care Team Description 08/18/2005 Therapy Visit [place] Cyndi Crews iamCERVICA LGIA (Primary Athletic Medicine - PT Dx) George Stapleton [facility] GEORGE STAPLETON PhysicalTherapy [address] [place] [address] [address] GE[place] STAPLETON [facility] [place] [address] [phone] Social History Tobacco Use Types Packs/Day Years [...] do you attend gnosticism or Not asked hoahaoism services? Do you [...] this encounter Progress Notes Cyndi Fontenot - 08/18/2005 3:41 PM CST Please refer to the daily flowsheet for treatment today. SPRAYER documented in this encounter Plan of Treatment Upcoming Encounters Date Type Specialty Care Team Description 08/18/2022 Virtual Visit [place] [address] [place] [address] (Wo rk) documented as of this encounter Procedures Procedure Name Priority Date/Time Associated Diagnosis Comme nts ZZC THERAPEUTIC Routine 08/18/2005 3:53 PM DRUM SPRAYER iamCERVICALGIA EXERCISES ZZC HOT OR COLD PACKS Routine 08/18/2005 3:53 PM DRUM SPRAYER iamCERVIC ALGIA THERAPY ZZC MECHANICAL TRACTION Routine 08/18/2005 3:53 PM DRUM SPRAYER iamCERV ICALGIA THERAPY documented in this encounter Visit Diagnoses Diagnosis iamCERVICALGIA - Primary Cervicalgia documented in this encounter
--- OUTSIDE RECORDS SUMMARY | 2022-08-16 14:33 | XMS_ITS | Encounter Summary ---
:1960 Author Organization [place] Address [address] [facility] [place] [address] Care Team Providers Name Role Phone Jonathan Velásquez MD Primary Care Provider Encounter Details Date Type Department Care Team Description 04/28/2006 Orders Only [facility] SCR EENING FOR VENERAL DIS [facility] [address] [place] [address] Social History Tobacco Use Types [...] do you attend yazdanism or Not asked amish services? Do you belong to any clubs [...] Virtual [place] [address] [place] [address] (Wo rk) documented as of this encounter Procedures Procedure Name Priority Date/Time Associated Diagnosis Comme nts HCL HIV 1 & 2 Routine 04/28/2006 2:22 PM Screening For Results for this ANTIBODY CDT Veneral Dis procedure are i n the results section. documented in this encounter Results HIV-1/HIV-2, SCREEN (04/28/2006 2:22 PM CDT) Analysis Performed At Patho logist Time Signature HIV 1&2 Negative NEG [facility] Antibody [facility] LAB[facility] Specimen Anatomical Collection Method Collection Time Receive d Time (Source) Location / / Volume Laterality 04/28/2006 2:22 PM 6 2:23 CDT PM CDT Jonathan Velásquez MD LABORATORY Performing Organization Address City/State/ZIP Code Phon e Number [id number] [place] [address] LABS documented in this encounter Visit Diagnoses Diagnosis Screening examination for venereal disea se documented in this encounter Care Teams Insecticide Mixer Relationship Specialty Start Date End Date Jonathan Velásquez MD PCP - General 11/10/05 01/21/11 documented as of this encounter
--- OUTSIDE RECORDS SUMMARY | 2022-08-16 14:33 | XMS_ITS | Encounter Summary ---
:1960 Author Organization [place] Address [facility] [place] [address] Care Team Providers Name Role Phone Unavailable Primary Care Provider Unavailable Encounter Details Date Type Department Care Team Description 08/16/2005 Therapy Visit [place] Cyndi Crews iamCERVICA LGIA (Primary Athletic Medicine - PT Dx) George Stapleton [facility] STAP[facility]TON PhysicalTherapy [address] [place] [address] [address] [place] STAP[place] [facility] [place] [address] [phone] Social History Tobacco Use Types Packs/Day Years [...] do you attend worship or Not asked sikh services? Do you [...] this encounter Progress Notes Cyndi Fontenot - 08/16/2005 9:13 AM CST Please refer to the daily flowsheet for treatment today. S DEVELOPER documented in this encounter Plan of Treatment Upcoming Encounters Date Type Specialty Care Team Description 08/18/2022 Virtual Visit [place] [address] [place] [address] (Wo rk) documented as of this encounter Procedures Procedure Name Priority Date/Time Associated Diagnosis Comme nts ZZC THERAPEUTIC Routine 08/16/2005 9:14 AM JBOSS DEVELOPER iamCERVICALGIA EXERCISES ZZC MECHANICAL TRACTION Routine 08/16/2005 9:14 AM JBOSS DEVELOPER iamCERV ICALGIA THERAPY ZZC HOT OR COLD PACKS Routine 08/16/2005 9:14 AM JBOSS DEVELOPER iamCERVIC ALGIA THERAPY documented in this encounter Visit Diagnoses Diagnosis iamCERVICALGIA - Primary Cervicalgia documented in this encounter
--- OUTSIDE RECORDS SUMMARY | 2022-08-16 14:33 | XMS_ITS | Encounter Summary ---
:1960 Author Organization [place] Address [facility] [place] [address] Care Team Providers Name Role Phone Unavailable Primary Care Provider Unavailable Encounter Details Date Type Department Care Team Description 08/28/2005 Therapy Visit [place] Cyndi Crews iamCERVICA LGIA (Primary Athletic Medicine - PT Dx) George Stapleton [facility] STAP[place]TON PhysicalTherapy [address] [place] [address] [address] [place] [address] [phone] Social History Tobacco Use Types Packs/Day Years [...] or relatives? How often do you attend sabianism or Not asked yazidi services? Do you belong to any clubs or Not asked organizations such as sabianism groups, unions, fraternal or athletic groups, or [...] this encounter Progress Notes Cyndi Fontenot - 08/28/2005 1:50 PM CST Please refer to the daily flowsheet for treatment today. OR HIGH SCHOOL PRINCIPAL documented in this encounter Plan of Treatment Upcoming Encounters Date Type Specialty Care Team Description 08/18/2022 Virtual Visit [place] [address] [place] [address] (Wo rk) documented as of this encounter Procedures Procedure Name Priority Date/Time Associated Diagnosis Comme nts ZZC THERAPEUTIC Routine 08/28/2005 1:51 PM JUNIOR HIGH SCHOOL PRINCIPAL iamCERVICALGIA EXERCISES ZZC MECHANICAL TRACTION Routine 08/28/2005 1:51 PM JUNIOR HIGH SCHOOL PRINCIPAL iamCERV ICALGIA THERAPY ZZC HOT OR COLD PACKS Routine 08/28/2005 1:51 PM JUNIOR HIGH SCHOOL PRINCIPAL iamCERVIC ALGIA THERAPY documented in this encounter Visit Diagnoses Diagnosis iamCERVICALGIA - Primary Cervicalgia documented in this encounter
--- OUTSIDE RECORDS SUMMARY | 2022-08-16 14:33 | XMS_ITS | Encounter Summary ---
:1960 Author Organization [place] Address [facility] [place] [address] Care Team Providers Name Role Phone Unavailable Primary Care Provider Unavailable Reason for Visit Reason Comments Consult Jax natalie Has MS Encounter Details Date Type Department Care Team Description 09/01/2005 Office Visit [facility] Jonathan Velásquez, MULTI PLE SCLEROSIS (H); Clinic Britta Chaudhry MD [facility] [address] [facility] XXX [address] X [address] [place] Britta Chaudhry [facility] [address] N[place] RIOS [phone] Social History Tobacco Use Types Packs/Day [...] or relatives? How often do you attend caodaism or Not asked denominational services? Do you belong to any clubs or Not asked organizations such as caodaism groups, unions, fraternal or athletic groups, or [...] Sign Reading Time Taken Comments Blood Pressure 108/70 09/01/2005 12:15 PM CAR SALES REPRESENTATIVE Pulse 80 09/01/2005 12:15 PM CAR SALES REPRESENTATIVE Temperature 36.2 ??C (97.2 ??F) 09/01/2005 12:15 PM CAR SALES REPRESENTATIVE Respiratory Rate - - Oxygen Saturation - - Inhaled Oxygen Concentration - - Weight 72.6 kg (160 lb) 09/01/2005 12:15 PM CAR SALES REPRESENTATIVE Height 167.6 cm (5' 6) 09/01/2005 12:15 PM CAR SALES REPRESENTATIVE Body Mass Index 25.82 09/01/2005 12:15 PM CAR SALES REPRESENTATIVE documented in this encounter Progress Notes Jonathan Velásquez - 09/01/2005 1:07 PM CST SUBJECTIVE: This gentleman is seen today for a vasectomy consult and also to reestablish care at this clinic. Hehas MS and has been disabled for one year due to MS. General vasectomy instruction sheet and post vas instruction sheet were made available to him and he had an opportunity to review these. An opportunity for questions was given. I explained the procedure in detail. He realizes there is the risk of bleeding and infection, as well as postoperative discomfort for up to three months, development of sperm granulomas or epididymal cysts, and the possibility of failure to produce desired sterility. He knows that he has to bring in apost vas sample after eight to twelve weeks and twelve to fifteen ejaculations, and that he needs a post vas semen analysis that shows no sperm before he can be considered sterile. He knows that he will need to use another form of control until then. He understands that he should be taking it easy over the several days afterwards with no heavy lifting, strenuous activity or sexual intercourse for one week after the procedure. We will plan on doing this at his convenience with IV Valium and local anesthetic. He will shave at home the day before. He realizes that this is meant to be a permanent procedure. PAST MEDICAL HISTORY: ACTIVE MS NEUROGENIC BLADDER ED PSH; BILATERAL HIP REPLACEMENTS FAMILY HISTORY: Family History: C.A.D. Father Comment: Triple bypass Neurological Mother Comment: Had MS in 1970 at age 30 ANESTHETIC PROBLEMS NONE REVIEW OF SYSTEMS: MS ON AVONEX OBJECTIVE: NO HERNIA VAS PALPABLE ASSESSMENT: Undesired fertility. PLAN: He will schedule for a vasectomy at his convenience. General vasectomy information and post vas instruction sheet were sent home with him, and if he has questions in the meantime, he will call me. SALES REPRESENTATIVE documented in this encounter Nursing Notes 09/01/2005 12:15 PM CST >> MARGARITA RODAS 09/01/2005 12:21 pm Patient presents with: Consult - New patiet Has MS BP 108/70 Pulse 80 Temp (Src) 97.2 (Oral) Ht 5' 6 (1.68m) Wt 160 lbs (72.6kg) BP completed using cuff size: large. P.Bridgette BACKEND TESTER documented in this encounter Plan of Treatment Upcoming Encounters Date Type Specialty Care Team Description 08/18/2022 Virtual Visit [place] [address] [place], [place] [phone] (Wo rk) documented as of this encounter Visit Diagnoses Diagnosis Multiple sclerosis (H) Multiple sclerosis Other general counseling and advice for contraceptive management documented in this encounter
--- OUTSIDE RECORDS SUMMARY | 2022-08-16 14:33 | XMS_ITS | Encounter Summary ---
:1960 Author Organization [place] Address [facility] [place] [address] Care Team Providers Name Role Phone Jonathan Velásquez MD Primary Care Provider Reason for Visit Reason Comments Patient Request STD testing Encounter Details Date Type Department Care Team Description 04/27/2006 Office Visit [facility] Jonathan Velásquez, MARIA ELENA HORNE FOR VENERAL Clinic Britta Chaudhry MD DIS (Primary Dx) [address] [facility] XXX [address] [place] [address] NABIL ZHOU [phone] [address] Social History Tobacco Use Types Packs/Day [...] do you attend sikh or Not asked amish services? Do you [...] Sign Reading Time Taken Comments Blood Pressure 114/58 04/27/2006 2:15 PM CDT Pulse 99 04/27/2006 2:15 PM CDT Temperature - - Respiratory Rate - - Oxygen Saturation - - Inhaled Oxygen Concentration - - Weight 73.3 kg (161 lb 9.6 oz) 04/27/2006 2:15 PM CDT Height - - Body Mass Index 26.08 11/11/2005 12:30 PM RN OUTPATIENT SURGERY documented in this encounter Progress Notes Jonathan Velásquez - 04/27/2006 2:27 PM CDT SUBJECTIVE: Patient comes in today wanting to be checked for STDs. He has a new sexual partner and does not liketo use condoms due to the fact that he has MS and has difficulty with erections anyways. He feels that condoms reduce a sensation to a point where he has hard time having intercourse. He denies any history of STDs. He denies any risky sexual behaviors. He is heterosexual. He does have some worries about testicular cancer at thing she noticed a lump on the left testicle. He denies any discharge from the penis. Objective:BP 114/58 Pulse 99 Wt 161 lbs 9.6 oz (73.3kg) He appears well, in no apparent distress. Alert and oriented times three, pleasant and cooperative. Vital signs are as noted by the nurse. Examination of the penis and testicles is normal. No evidence of any abnormality on palpating the testicles. No inguinal adenopathy. No hernia noted. Assessment/Plan: Assessment/Plan: V74.5 SCREENING FOR VENERAL DIS (primary encounter diagnosis) Note: Plan: CHLAMYDIA DNA , N.GONORRHOEAE, DNA, (GC), CHLMYD TRACH, DNA, AMP PROBE, HIV-1/HIV-2, SCREEN documented in this encounter Nursing Notes 04/27/2006 2:15 PM CDT >> LIANET HO 04/27/2006 2:12 pm Dejuan Rodriguez presents for STD testing. Initial BP 114/58 Pulse 99 Wt 161 lbs 9.6 oz (73.3kg) Estimated Body mass index is 26.10 kg/(m^2) as calculated from: Height of 5' 6 (1.676 m) as of 11/11/05 Weight of 161 lbs 9.6 oz (73.301 kg) as of this encounter. BP completed using cuff size: regular Lianet Prabhakar CMA documented in this encounter Plan of Treatment Upcoming Encounters Date Type Specialty Care Team Description 08/18/2022 Virtual Visit [facility] [place] [address] [place], [place] [phone] (Wo rk) documented as of this encounter Visit Diagnoses Diagnosis Screening examination for venereal disea se - Primary documented in this encounter Care Teams Supervisor Coke Handling Relationship Specialty Start Date End Date Jonathan Velásquez MD PCP - General 11/10/05 01/21/11 documented as of this encounter
--- OUTSIDE RECORDS SUMMARY | 2022-08-16 14:33 | XMS_ITS | Encounter Summary ---
:1960 Author Organization [place] Address [address] [place] [address]. [place] [address] Care Team Providers Name Role Phone Jonathan Velásquez MD Primary Care Provider Reason for Visit Reason Comments RECHECK From 09/16/2006 Pneumonia Encounter Details Date Type Department Care Team Description 11/11/2005 Office Visit [facility] Jonathan Veláqsuez, OTHER MALAISE AND FATIGUE (Primary Dx); Clinic Britta Chaudhry MD DEPRESSIVE DISORDER NEC; [address] [place] [address] XXX RETIRED X XX MULTIPLE SCLEROSIS (H); Drive [address] [place] [address] DRUG [place]BU[place] [id number] NABIL ZHOU [phone] [address] Social History Tobacco Use Types Packs/Day [...] do you attend confucianism or Not asked cheondoism services? Do you [...] Sign Reading Time Taken Comments Blood Pressure 115/76 11/11/2005 12:30 PM COLLISION ESTIMATOR Pulse 100 11/11/2005 12:30 PM COLLISION ESTIMATOR Temperature 36.3 ??C (97.4 ??F) 11/11/2005 12:30 PM COLLISION ESTIMATOR Respiratory Rate 16 11/11/2005 12:30 PM COLLISION ESTIMATOR Oxygen Saturation - - Inhaled Oxygen Concentration - - Weight 72.6 kg (160 lb) 11/11/2005 12:30 PM COLLISION ESTIMATOR Height 167.6 cm (5' 6) 11/11/2005 12:30 PM COLLISION ESTIMATOR Body Mass Index 25.82 11/11/2005 12:30 PM COLLISION ESTIMATOR documented in this encounter Progress Notes Jonathan Velásquez - 11/11/2005 6:06 PM CST SUBJECTIVE: Patient comes in complaining of significant EXTreme fatigue and HE IS CONCERNED THAT HIS DEPRESSION is not responding to the antidepressant recently started. He has multiple sclerosis and felt so weak that he had to get a steroid infusion yesterday. Patient was started on Denzel Pro but states that in addition to this he was sitting home smoking marijuana all day long. He says he smokes a day and night. He also states he has been having trouble sleeping and his use of Klonopin has increased from a half a tablet at night to three tablets in order to get to sleep. He has concerned that he is dependent on this. He has been on Klonopin for the past six months. His MS and sleeping medications are monitored and prescribed by his neurologist. Patient states that he has been smoking pot for about the last 30 years. He is truly disabled because of his MS. He states that he is not suicidal. I recommended tohim that he may need to go through a treatment program to get off of the marijuana and also the Klonopin at this time is not interested in it. Social history he is not and lives alone. He does not smoke cigarettes. He is currently disabled. However, he states that he is going on a [place] in February of this year. ROS: negative other than that noted above. Current Outpatient Rx Name Route Sig Dispense Refill ??? TIZANIDINE HCL 4 MG OR CAPS Oral 1 TABLET 3 TIMES DAILY 90 0 ??? WELLBUTRIN XL 150 MG OR TB24 Oral 1 TABLET DAILY 30 6 ??? KLONOPIN 0.5 MG OR TABS Oral 1 TABLET 3 TIMES DAILY 90 0 ??? VIAGRA 100 MG OR TABS Oral 1 TABLET DAILY NEEDED 30 0 ??? SOLU-MEDROL 1000 MG IJ SOLR Injection 1 gram IV once per month .1 0 ??? KETEK 400 MG OR TABS Oral 2 TABLETS DAILY 10 0 ??? MUCINEX 600 MG OR TB12 Oral 1 TABLET EVERY 12 HOURS NEEDED 60 0 ??? LEXAPRO 10 MG OR TABS Oral 1 TABLET DAILY 30 0 ??? AVONEX 30 MCG/0.5ML IM KIT Intramuscular 30 MICROGRAMS WEEKLY 128.7 0 ??? FLOMAX 0.4 MG OR CP24 Oral 1 TABLET DAILY AFTER A MEAL 60 0 ??? CLINORIL 150 MG OR TABS Oral 2 tablets once a week 60 0 ??? VIAGRA 100 MG OR TABS Oral 1 TABLET DAILY NEEDED 30 0 ??? AMBIEN 10 MG OR TABS Oral 1 TABLET AT BEDTIME NEEDED 10 0 Past Medical History Diagnosis Date ??? MULTIPLE SCLEROSIS ??? JUV OSTEOCHONDROS PELVIS ??? BLADDER DISORDER NEC neurogenic Past Surgical History Procedure Date ??? Total hip replacement Hip Replacement, Total x2 due to Legg Perthes Family History Problem Relation ??? C.A.D. Father Triple bypass ??? Neurological Mother Had MS in 1970 at age 30 OBJECTIVE: BP 115/76 Pulse 100 Temp (Src) 97.4 (Oral) Resp 16 Ht 5' 6 (1.68m) Wt 160 lbs (72.6kg) He appears well, in no apparent distress. Alert and oriented times three, pleasant and cooperative. Vital signs are as noted by the nurse. Patient moves very slowly when getting up from a chair. His gait is very deliberate until he gets walking. There is no slurring of speech. CHEST:S1 and S2 normal, no murmurs, clicks, gallops or rubs. Regular rate and rhythm. Chest is clear; no wheezes or rales. No edema or JVD. Assessment/Plan: 780.79 OTHER MALAISE AND FATIGUE (primary encounter diagnosis) Note: Plan: CBC WITH PLATELETS, DIFF, TSH W/FREE T4 REFLEX Discussion need to rule out other physical causes 311 DEPRESSIVE DISORDER NEC Note: Stop Lexapro Plan: WELLBUTRIN XL 150 MG OR TB24 Follow up 3 weeks 340 MULTIPLE SCLEROSIS Note: progressing Plan: recommend he discuss Klonopin over use with his neurologist 305.90 DRUG ABUSE NEC-UNSPEC Note: Discussion need for him to quit smoking marijuana to see if he would benefit from an antidepressant. Plan: States he will stop and RTC in 3 weeks. Offered chem dep. Counseling and detox. 30 min ISION ESTIMATOR documented in this encounter Nursing Notes 11/11/2005 12:30 PM CST >> MARGARITA RODAS 11/11/2005 12:28 pm Patient presents with: RECHECK - From 09/16/2006 Pneumonia BP 115/76 Pulse 100 Temp (Src) 97.4 (Oral) Resp 16 Ht 5' 6 (1.68m) Wt 160 lbs (72.6kg) BP completed using cuff size: large. P.Bridgette PEST CONTROL SERVICE TECHNICIAN documented in this encounter Plan of Treatment Upcoming Encounters Date Type Specialty Care Team Description 08/18/2022 Virtual Visit [place] [address] [place] [address] (Wo rk) documented as of this encounter Procedures Procedure Name Priority Date/Time Associated Diagnosis Comme nts CL AFF CBC WITH Routine 11/11/2005 12:58 PM Other Malaise And Results for this PLATELETS, DIFF COLLISION ESTIMATOR Fatigue procedure ar e in the results section. HCL TSH W/FREE T4 Routine 11/11/2005 12:58 PM Other Malaise An d Results for this REFLEX COLLISION ESTIMATOR Fatigue procedure are i n the results section. documented in this encounter Results TSH W/FREE T4 REFLEX (11/11/2005 12:58 PM COLLISION ESTIMATOR) athologist Signature TSH 0.99 0.4 - 5.0 [facility] mU/L CLINIC LAB Specimen Anatomical Collection Method Collection Time Receive d Time (Source) Location / / Volume Laterality 11/11/2005 12:58 11/11/2005 PM COLLISION ESTIMATOR 12:59 PM COLLISION ESTIMATOR Jonathan Velásquez MD LABORATORY Performing Organization Address City/State/ZIP Code Phon e Number [facility] [address] [place] [address] [facility] (ABNORMAL) CBC WITH PLATELETS, DIFF (11/11/2005 12:58 PM COLLISION ESTIMATOR) [facility] gist Method Time Signature WBC 9.4 4.0 - [place] 11.0 [facility] 10e9/L [facility] RBC Count 4.78 4.4 - 5.9 [place] 10e12/L [facility] Hemoglobin 14.4 13.3 - [place] 17.7 g/dL [facility] Hematocrit 44.4 40.0 - [place] 53.0 % [facility] MCV 93 78 - 100 [place] fl [facility] MCH 30.1 26.5 - [place] 33.0 pg [facility] MCHC 32.4 32.0 - [place] 36.0 g/dL [facility] RDW 13.5 10.0 - [place] 15.0 % [facility] Platelet Count 211 150 - 450 [place] 10e9/L [facility] Diff Method Automated [facility] % Lymphocytes 13 (L) 20 - 48 % [facility] % Monocytes 5 0 - 12 % [facility] % Granulocytes 82 (H) 40 - 75 % [facility] Absolute 1.2 0.8 - 5.3 [place] Lymphocytes 10e9/L [facility] Absolute 0.5 0.0 - 1.3 [place] Monocytes 10e9/L [facility] Absolute 7.7 1.6 - 8.3 [place] Granulocytes 10e9/L [facility] Specimen Anatomical Collection Method Collection Time Receive d Time (Source) Location / / Volume Laterality 11/11/2005 12:58 11/11/2005 PM COLLISION ESTIMATOR 12:59 PM COLLISION ESTIMATOR Jonathan Velásquez MD LABORATORY Performing Organization Address City/State/ZIP Code Phon e Number [place] [id number] [place] [address] [facility] documented in this encounter Visit Diagnoses Diagnosis Other malaise and fatigue - Primary Depressive disorder, not elsewhere class ified Multiple sclerosis (H) Multiple sclerosis Other, mixed, or unspecified nondependen t drug abuse, unspecified documented in this encounter Care Teams Nut Processing Supervisor Relationship Specialty Start Date End Date Jonathan Velásquez MD PCP - General 11/10/05 01/21/11 documented as of this encounter
--- OUTSIDE RECORDS SUMMARY | 2022-08-16 14:33 | XMS_ITS | Encounter Summary ---
:1960 Author Organization [place] Address [address] [place] [address] Care Team Providers Name Role Phone Unavailable Primary Care Provider Unavailable Encounter Details Date Type Department Care Team Description 09/04/2005 Therapy Visit [place] Cyndi Crews iamCERVICA LGIA (Primary Athletic Medicine - PT Dx) George Stapleton [facility] GEORGE STAPLETON PhysicalTherapy [address] [place] [address] [address] [facility] STAPLETON [facility] [place] [address] [phone] Social History Tobacco Use Types Packs/Day Years [...] do you attend presybeterian or Not asked jain services? Do you [...] this encounter Progress Notes Cyndi Fontenot - 09/04/2005 1:09 PM CST Please refer to the daily flowsheet for treatment today. Please refer to the discharge evaluation. TICE BUSINESS ASST documented in this encounter Plan of Treatment Upcoming Encounters Date Type Specialty Care Team Description 08/18/2022 Virtual Visit [facility] [place] [address] [place] [address] (Wo rk) documented as of this encounter Procedures Procedure Name Priority Date/Time Associated Diagnosis Comme nts ZZC THERAPEUTIC Routine 09/04/2005 1:13 PM PRACTICE BUSINESS ASST iamCERVICALGIA EXERCISES [facility] MECHANICAL TRACTION Routine 09/04/2005 1:13 PM PRACTICE BUSINESS ASST iamCERV ICALGIA THERAPY [facility] HOT OR COLD PACKS Routine 09/04/2005 1:13 PM PRACTICE BUSINESS ASST iamCERVIC ALGIA THERAPY documented in this encounter Visit Diagnoses Diagnosis iamCERVICALGIA - Primary Cervicalgia documented in this encounter
--- OUTSIDE RECORDS SUMMARY | 2022-08-16 14:33 | XMS_ITS | Encounter Summary ---
:1960 Author Organization [place] Address [address] [facility] [place] [address] Care Team Providers Name Role Phone Jonathan Velásquez MD Primary Care Provider Encounter Details Date Type Department Care Team Description 04/29/2006 Orders Only [facility] SCR EENING FOR VENERAL DIS [facility] [address] [place] [address] Social History Tobacco Use Types [...] do you attend alevism or Not asked episcopal services? Do you [...] Virtual Visit [place] [address] [place] [address] (Wo rk) documented as of this encounter Procedures Procedure Name Priority Date/Time Associated Diagnosis Comme nts CL AFF Routine 04/29/2006 4:17 PM Screening For Results for this N.GONORRHOEAE, DNA CDT Veneral Dis procedure are in AMP PROBE the results section. CL AFF CHLMYD Routine 04/29/2006 4:17 PM Screening For Results for this TRACH, DNA, AMP CDT Veneral Dis procedure ar e in PROBE the results section. documented in this encounter Results N.GONORRHOEAE, DNA, (GC) (04/29/2006 4:17 PM CDT) Component Value Ref Test Analysis Performed At [facility] [place] Method Time Signature Specimen Urine [facility] LABS N Gonorrhea Negative for N. gonorrhoeae rRNA by scrub nurse mediated amplification. [facility] PCR A negative result by transc ription mediated amplification does not preclude the [place] PATENT presence of N. gonorrhoeae infection because re sults are dependent on proper CAMPUS LABS and adequate collection, absence of inhibitors, and suffici ent rRNA to be detected. Specimen Anatomical Collection Method Collection Time Receive d Time (Source) Location / / Volume Laterality 04/29/2006 4:17 PM 6 4:18 CDT PM CDT Jonathan Velásquez MD LABORATORY Performing Organization Address City/State/ZIP Code Phon e Number [address] LABS CHLMYD TRACH, DNA, AMP PROBE (04/29/2006 4:17 PM CDT) Component Value Ref Test Analysis Performed At [facility] Method Time Signature Specimen Urine [facility] LABS Chlamydia Negative for C. trachomatis rRNA by scrub nurse mediated amplification. [facility] Trachomatis A negative result by transc ription mediated amplification does not preclude the [place] PATENT PCR presence of C. trachomatis infection because results are dependent on proper CAMPUS LABS and adequate collection, absence of inhibitors, and suffici ent rRNA to be detected. Specimen Anatomical Collection Method Collection Time Receive d Time (Source) Location / / Volume Laterality 04/29/2006 4:17 PM 6 4:18 CDT PM CDT Jonathan Velásquez MD LABORATORY Performing Organization Address City/State/ZIP Code Phon e Number [address] LABS documented in this encounter Visit Diagnoses Diagnosis Screening examination for venereal disea se documented in this encounter Care Teams Boat And Plant Utility Supervisor Relationship Specialty Start Date End Date Jonathan Velásquez MD PCP - General 11/10/05 01/21/11 documented as of this encounter
--- OUTSIDE RECORDS SUMMARY | 2022-08-16 14:33 | XMS_ITS | Encounter Summary ---
:1960 Author Organization [place] Address [facility] [place] [address] Care Team Providers Name Role Phone Unavailable Primary Care Provider Unavailable Encounter Details Date Type Department Care Team Description 08/11/2005 Therapy Visit [place] Cyndi Crews iamCERVICA LGIA (Primary Athletic Medicine - PT Dx) George Stapleton [facility] GEORGE STAPLETON PhysicalTherapy [address] [place] [address] [address] GEORGE STAPLETON [facility] [place] [address] [phone] Social History Tobacco Use Types Packs/Day Years [...] do you attend yarsani or Not asked yarsanism services? Do you [...] this encounter Progress Notes Cyndi Fontenot - 08/11/2005 4:54 PM CST Initial evaluation was completed. Please refer to the daily flowsheet for treatment today. [employer]ANT documented in this encounter Plan of Treatment Upcoming Encounters Date Type Specialty Care Team Description 08/18/2022 Virtual Visit [place] [address] [place], [place] [id number] (Wo rk) documented as of this encounter Procedures Procedure Name Priority Date/Time Associated Diagnosis Comme nts C THERAPEUTIC Routine 08/11/2005 4:55 PM SUPERVISOR NATURAL GAS PLANT iamCERVICALGIA ACTIVITIES [facility] MECHANICAL TRACTION Routine 08/11/2005 4:55 PM SUPERVISOR NATURAL GAS PLANT iamCERV ICALGIA THERAPY documented in this encounter Visit Diagnoses Diagnosis iamCERVICALGIA - Primary Cervicalgia documented in this encounter
--- OUTSIDE RECORDS SUMMARY | 2022-08-16 14:33 | XMS_ITS | Encounter Summary ---
:1960 Author Organization [place] Address [address] [address] Care Team Providers Name Role Phone Jonathan Velásquez MD Primary Care Provider Reason for Visit Reason Comments Sinus Problem Encounter Details Date Type Department Care Team Description 08/07/2006 Office Visit [facility] Sudhir Vazquez, NOSE AN OMALY KATHARINE Vee MD (Primary Dx) [address] [place] [address] [place] [phone] [place] [phone] Social History Tobacco Use Types Packs/Day Years [...] do you attend hindu or Not asked latter-day services? Do you [...] Sign Reading Time Taken Comments Blood Pressure 108/60 08/07/2006 1:30 PM SURVEY TECHNICIAN Pulse - - Temperature 36.3 ??C (97.3 ??F) 08/07/2006 1:30 PM SURVEY TECHNICIAN Respiratory Rate - - Oxygen Saturation - - Inhaled Oxygen Concentration - - Weight 77.9 kg (171 lb 12.8 oz) 08/07/2006 1:30 PM SURVEY TECHNICIAN Height 167.6 cm (5' 6) 08/07/2006 1:30 PM SURVEY TECHNICIAN Body Mass Index 27.73 08/07/2006 1:30 PM SURVEY TECHNICIAN documented in this encounter Progress Notes Sudhir Vazquez - 08/07/2006 3:12 PM CST SUBJECTIVE: Dejuan Rodriguez is a 45 year old male patient complaining of nasla congeston and not able to breath through his nose and not able to sleep for 2 days. No fever, some headache. No nasal drainage. Pt. Recently had Tysabri infusion therapy for MS. OBJECTIVE: BP 108/60 Temp 97.3 Ht 5' 6 (1.68m) Wt 171 lbs 12.8 oz (77.9kg) The patient appears healthy, alert and no distress. EARS: External ears normal. Canals clear. TM's normal. NOSE/SINUS: Bilat. Nose congested and clear scant drainage. Sinus palpation: Frontal sinus and Maxillary sinus nontender to palpation THROAT: normal NECK:Neck supple. No adenopathy. Thyroid symmetric, normal size, CHEST: Clear ASSESSMENT: Headache. Nasal congestion PLAN: Discussed with pt. The exam. Sinusitis unlikely. Recommended Advil or Tylenol sinus for discomfort. Nasal saline spray for congestion. And discussed Afrin for nasal congestion, warned pt. The potentialside effects with Afrin use extermination supervisor. Recommended pt. To use it only for extreme discomfort at bedtime. And limited its use to less than 3 days. Follow up with PMD of symptoms worse. EY TECHNICIAN documented in this encounter Nursing Notes 08/07/2006 1:30 PM CST >> MADISON RICHARDSON 08/07/2006 1:35 pm Dejuan Rodriguez presents for sinus. Initial BP 108/60 Temp 97.3 Ht 5' 6 (1.68m) Wt 171 lbs 12.8 oz (77.9kg) Body mass index is 27.74 kg/(m^2).. BP completed using cuff size: rain Richardson LPN documented in this encounter Plan of Treatment Upcoming Encounters Date Type Specialty Care Team Description 08/18/[address] 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
--- OUTSIDE RECORDS SUMMARY | 2022-08-16 14:33 | XMS_ITS | Encounter Summary ---
:1960 Author Organization [place] Address [facility] [place] [address] Care Team Providers Name Role Phone Unavailable Primary Care Provider Unavailable Encounter Details Date Type Department Care Team Description 08/14/2005 Therapy Visit [place] Cyndi Crews iamCERVICA LGIA (Primary Athletic Medicine - PT Dx) George Stapleton [facility] GEORGE STAPLETON PhysicalTherapy [address] [place] [address] [address] [address]AP[place] [address] [phone] Social History Tobacco Use Types Packs/Day Years [...] do you attend taoism or Not asked spiritism services? Do you [...] this encounter Progress Notes Cyndi Fontenot - 08/14/2005 6:18 PM CST Please refer to the daily flowsheet for treatment today. EDGE MACHINE OPERATOR documented in this encounter Plan of Treatment Upcoming Encounters Date Type Specialty Care Team Description 08/18/2022 Virtual Visit [place] [address] [place] [address] (Wo rk) documented as of this encounter Procedures Procedure Name Priority Date/Time Associated Diagnosis Comme nts ZZC THERAPEUTIC Routine 08/14/2005 6:21 PM ROLL EDGE MACHINE OPERATOR iamCERVICALGIA EXERCISES [facility] MECHANICAL TRACTION Routine 08/14/2005 6:21 PM ROLL EDGE MACHINE OPERATOR iamCERV ICALGIA THERAPY ZZ[facility] HOT OR COLD PACKS Routine 08/14/2005 6:21 PM ROLL EDGE MACHINE OPERATOR iamCERVIC ALGIA THERAPY documented in this encounter Visit Diagnoses Diagnosis iamCERVICALGIA - Primary Cervicalgia documented in this encounter
--- OUTSIDE RECORDS SUMMARY | 2022-08-16 14:34 | XMS_ITS | Clinical Summary ---
:1960 Author Organization [employer] [facility] [place] [address] Care Team Providers Name Role Phone Teresita Garcia MD Primary Care Provider Lorna West RN Unavailable [facility], [facility] Unavailable Allergies Active Allergy Reactions Severity Noted Date Comments Hydromorphone Nausea And Vomiting 12/16/2010 Pollen, Micronized 09/10/2010 Medications Medication Sig Dispensed Refills Start Date End Date Status acetaminophen Take 1-2 tablets by 0 12/23/2010 Active (TYLENOL) 325 mg mouth every 4 hours tabletIndications: if needed for Pain. fever, pain Max acetaminophen dose: 4000mg in 24 hrs. alendronate Take 70 mg by mouth 3 09/28/2017 Active (FOSAMAX) 70 mg every Thursday tablet morning. ocrelizumab 30 Inject intravenous. 0 06/01/2018 Active mg/mL soln Every 6 months - [facility] infuses calcium Chew 1 Tablet by 0 Act eliel carbonate-vitamin mouth 2 times D3 600 mg (1,500 daily. mg)-800 unit chew ketoconazole 2% Apply topically to 0 Active shampoo (NIZORAL) 2 affected area(s) % shampoo every Thursday. Lather on damp scalp, leave on for 5min, then rinse with water. polyethylene glycoL Take 17 g by mouth 0 Active (MIRALAX) 17 once daily if gram/dose powder needed for Constipation. trimethoprim-sulfam Take 1 Tablet by 0 08/30/2021 Active ethoxazole, 160-800 mouth once daily. mg, (BACTRIM DS, SEPTRA DS) tab pramipexole [The details of the 360 Tablet 0 02/28/2022 Active (MIRAPEX) 0.125 mg medication are not tabletIndications: available because Restless leg there are pending syndrome changes by a home health clinician.] baclofen (LIORESAL) Take 1-2 Tablets 180 tablet. 3 04/07/2022 Active 10 mg (10-20 mg) by mouth tabletIndications: every 6 hours if Spasticity needed (spasticity/acute intrathecal baclofen withdrawal). And call clinic for instruction fluticasone (50 mcg Inhale 2 Sprays to 16 g 0 04/07/2022 Active per actuation) both nostrils once nasal solution daily if needed for (FLONASE)Indication Rhinitis. s: Spasticity, Restless leg syndrome, Spasm of muscle, Multiple sclerosis (HC) gabapentin Take 1 Capsule (400 120 Capsule 0 04/07/2022 Active (NEURONTIN) 400 mg mg) by mouth 4 capsuleIndications: times daily. neuropathic pain Hospital, Clinic, or Other Ordered Dose Route Frequency Start Date End Date Status Facility Administered Medication baclofen 10,000 mcg/20mL 1.9221 mcg/hr cITi CONTINUOUS 10/15/2021 Active (500 mcg/mL) intrathecal (GABLOFEN)Indications: Spasm of muscle Active Problems Patient Care Coordination Note Formatting of this note might be differe nt from the original. Called and left message for Jose. How is he doing since pump replacement last week? Pain? Spasticity? Is he wearing his abdominal binder? Any issues with bowel and bladder since surgery? Is he scheduled for follow up with Dr. Mejía for sutu re removal? He can schedule with me at any time if issues with spasticity. Please have him schedule his next refill. Loni Hernandez NP ................ .... 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, acquired s/p repair 05/15/11 011 Bladder spasms 05/16/2011 Mechanical complication of nervous system device, impl ant, and graft 03/12/2011 Abnormality of gait 11/13/2010 Retention of urine, unspecified 09/10/2010 Spasm of muscle 09/10/2010 Depression 09/10/2010 Sleep disturbance, unspecified 09/10/2010 S/P BILATERAL HIP REPLACEMENTS 02/28/2007 Urinary tract infection, site not specified 02/27/2007 HX OF CANNABIS USE 08/20/2005 HX OF DYSTHYMIC DISORDER 08/20/2005 Multiple sclerosis Personal history of alcoholism Family history of ischemic heart disease Dysmetria Paraparesis Sensory loss Overview: fingers and feet Urinary retention Neurogenic bladder Neurogenic bowel Overview: constipation Muscle spasm Resolved Problems Problem Noted Date Resolved Date Paraplegia, spastic, due to MS 05/25/2021 Other ill-defined and unknown causes of morbidity and 02/28/2007 mortality Other chest pain 02/28/2007 Encounters Date Type Specialty Care Team Description 08/15/2022 Home Care Visit Dorys Cordon ORAL THERAPIST - LONG VISIT 08/12/2022 Home Care Visit Zoie Murrell SN - L LUDMILA VISIT (>90 RN MINUTES) 08/12/2022 Home Care Visit Dorys Cordon ORAL THERAPIST - LONG VISIT 08/08/2022 Home Care Visit Dorys Cordon ORAL THERAPIST - LONG VISIT 08/05/2022 Home Care Visit Dorys Cordon ORAL THERAPIST - LONG VISIT 08/05/2022 Home Care Visit Zoie Murrell SN - H OME VISIT RN 08/01/2022 Home Care Visit Dorys Cordon ORAL THERAPIST - LONG VISIT 07/30/2022 Home Care Visit Zoie Murrell, SN - H OME VISIT RN 07/29/2022 Home Care Visit Prow, Dorys A ORAL THERAPIST - LONG VISIT 07/29/2022 Home Care Visit Quin Lantigua, CARE ESCALATOR MECHANIC RDINATION RN 07/29/2022 Home Care Visit Quin Lantigua, CARE ESCALATOR MECHANIC RDINATION RN 07/25/2022 Home Care Visit Prow, Dorys A ORAL THERAPIST - LONG VISIT 07/22/2022 Home Care Visit Prow, Dorys A ORAL THERAPIST - LONG VISIT 07/22/2022 Home Care Visit Zoie Murrell, SN - H OME VISIT RN 07/18/2022 Home Care Visit Prow, Dorys A ORAL THERAPIST - LONG VISIT 07/15/2022 Home Care Visit Prow, Dorys A ORAL THERAPIST - LONG VISIT 07/15/2022 Home Care Visit Zoie Murrell, SN - H OME VISIT RN 07/11/2022 Home Care Visit Prow, Dorys A ORAL THERAPIST - LONG VISIT 07/08/2022 Home Care Visit Prow, Dorys A ORAL THERAPIST - LONG VISIT 07/08/2022 Home Care Visit Zoie Murrell, SN - O ASIS RECERTIFICATION RN 07/07/2022 Office Visit Baclofen Implan table Pump 07/07/2022 Hospital Encounter Hina Alcocer, Mul tiple sclerosis, GRANITE SETTER relapsing-remit ting (HC) 07/07/2022 Travel 07/04/2022 Home Care Visit Dorys Cordon A ORAL THERAPIST - LONG VISIT 07/03/2022 Home Care Visit Zoie Murrell, CARE C OORDINATION RN 07/01/2022 Home Care Visit Prow, Dorys A ORAL THERAPIST - LONG VISIT 07/01/2022 Home Care Visit Zoie Murrell, SN - H OME VISIT RN 06/27/2022 Home Care Visit Prow, Dorys A ORAL THERAPIST - LONG VISIT 06/24/2022 Home Care Visit Prow, Dorys A ORAL THERAPIST - LONG VISIT 06/24/2022 Home Care Visit Zoie Murrell, SN - H OME VISIT RN 06/20/2022 Home Care Visit Prow, Dorys A ORAL THERAPIST - LONG VISIT 06/17/2022 Home Care Visit Prow, Dorys A ORAL THERAPIST - LONG VISIT 06/17/2022 Home Care Visit Zoie Murrell, SN - H OME VISIT RN 06/13/2022 Home Care Visit Prow, Dorys A ORAL THERAPIST - LONG VISIT 06/10/2022 Home Care Visit Prow, Dorys A ORAL THERAPIST - LONG VISIT 06/10/2022 Home Care Visit Zoie Murrell, SN - H OME VISIT RN 06/06/2022 Home Care Visit Prow, Dorys A ORAL THERAPIST - MISSE D VISIT 06/03/2022 Home Care Visit Prow, Dorys A ORAL THERAPIST - LONG VISIT 06/03/2022 Home Care Visit Zoie Murrell, SN - H OME VISIT RN 05/30/2022 Home Care Visit Prow, Dorys A ORAL THERAPIST - LONG VISIT 05/27/2022 Home Care Visit Prow, Dorys A ORAL THERAPIST - LONG VISIT 05/27/2022 Home Care Visit Zoie Murrell, SN - H OME VISIT RN 05/23/2022 Home Care Visit Prow, Dorys A ORAL THERAPIST - MISSE D VISIT 05/22/2022 Refill Derasmi, Jessica Refill Reque st EstevesyDO (Pramipexole) 05/20/2022 Home Care Visit Prow, Dorys A ORAL THERAPIST - LONG VISIT 05/20/2022 Home Care Visit Zoie Murrell, SN - H OME VISIT RN 05/19/2022 Hospital Encounter Chris Mcmahan Multiple sclerosis (HC) MD [place] (Primary Dx) 05/19/2022 Travel 05/16/2022 Home Care Visit Prow, Dorys A ORAL THERAPIST - MISSE D VISIT from Last 3 Months Immunizations Name Administration Dates Next Due COVID-19 vaccine (Curly-J&J) SAMPSON PAGE 02/09/2021 Influenza, IIV4 07/27/2016 Pneumococcal Poly,23-Valent (Pneumovax) 05/20/2011 Family History Medical History Relation Name Comments Genetic Other 1 Father had bypas s surgery at approx. 63 years old.?Mother d ied of pneumonia at age 30.?She had MS diagnosed at approx. 22 years old.?Older brother has hyperlipidem ia.?Paternal grandfather of OK at unknown age. Genetic Other 2 Father had coron myah bypass in his 60s.?He has also had carotid enda rterectomy.?Elevated cholesterol has been demonstrate d both father and a brother. Relation Name Status Comments Other 1 Other 2 Social History Tobacco Use Types Packs/Day Years Used Date Never Smoker Smokeless Tobacco: Never Used Tobacco Cessation: Counseling Given: No Alcohol Use Standard Drinks/Week Comments No 0 (1 standard drink = 0.6 oz pure alcoho l) Sex Assigned at Date Recorded Not on file Obstetrics History Last Filed Vital Signs Vital Sign Reading Time Taken Comments Blood Pressure 150/90 08/12/2022 4:40 PM STAINED GLASS WINDOW DESIGNER Pulse 76 08/12/2022 4:40 PM STAINED GLASS WINDOW DESIGNER Temperature 36.4 ??C (97.6 ??F) 08/12/2022 4:40 PM STAINED GLASS WINDOW DESIGNER Respiratory Rate 20 08/12/2022 4:40 PM STAINED GLASS WINDOW DESIGNER Oxygen Saturation 98% 08/12/2022 4:40 PM STAINED GLASS WINDOW DESIGNER Inhaled Oxygen Concentration - - Weight 88.5 kg (195 lb) 01/07/2022 4:07 PM CDT Height 170.2 cm (5' 7) 01/07/2022 4:07 PM CDT Body Mass Index 30.54 01/07/2022 4:07 PM CDT Plan of Treatment Upcoming Encounters Date Type Specialty Care Team Description 08/19/2022 Home Care Visit Zoie Murrell RN [address] [place] [address] (Best jarrett) 08/19/2022 Home Care Visit Dorys Cordon [address] [place] [address] (eBst jarrett) 08/22/2022 Home Care Visit Dorys Cordon [address] [place] [address] (Best jarrett) 08/26/2022 Home Care Visit Zoie Murrell RN [address] [place] [phone] (Wo rk) 08/26/2022 Home Care Visit Dorys Cordon [address] [place] [phone] (Wo rk) 08/27/2022 Home Care Visit Dorys Cordon [address] [place] [phone] (Wo rk) 09/02/2022 Home Care Visit Zoie Murrell RN [address] [place] [phone] (Wo rk) 09/02/2022 Home Care Visit Dorys Cordon [address] [place] [phone] (Wo rk) 09/05/2022 Home Care Visit Dorys Cordon [address] [place] [phone] (Wo rk) 09/09/2022 Home Care Visit Dorys Cordon [address] [place] [phone] (Wo rk) 09/26/2022 Office Visit Argelia Aguilar, DO [address] [facility] [address] [place] [address] (Wo rk) Health Maintenance Due Date Last Done Comments Tdap 1972 Depression screening for age 12+ 1973 HIV for age 15-65 1976 Hepatitis C screening for age 18-79 12/15/1979 Zoster (shingles) series for age 50+ 1980 (1 of 2) Tetanus booster 1981 Colonoscopy through age 75 2006 Lipids for age 45-75 2006 Pneumococcal series for age 19-64 (2 05/20/2012 05/20/2011 - PCV) BMI (ht and wt on same day) for age 0312/17/2017 12/17/2016, 12/12/2015 18+ COVID-19 vaccine series (4 - Booster 05/07/2022 03/12/2022, 08/26/2021, for Curly series) 02/09/2021 Influenza for age 50-64 05/29/2022 07/27/2016 Medical Devices Implanted Type Area City Route Driver Device Shelf Expiration Model / Identifier Date Serial / Lot Pump Synchromed Ii 20ml - [id number] Spine Medtronic 04/24/2012 [id number] / Implanted: Qty: 1 on 12/16/2010 at [facility] [id number] / Explanted: at [facility] (Quantity not on file) Duraseal Spine / Implanted: Qty: 1 on 03/11/2011 at [facility] / Description: DURASEAL Graft 1x1 Dura Mater Duragen - [id number] INTEGRA N EURO SUPPLIES 01/25/2014 [id number] / Implanted: Qty: 1 on 05/15/2011 at [facility] / [id number] Cnnctr Spinal Indura Sutureless - [id number] N/A : Abdomen Medtronic Pain Therapy 06/14/2017 [id number] / Implanted: Qty: 1 on 01/27/2017 by Frederic Talley MD at [facility] / [id number] Procedures Procedure Name Priority Date/Time Associated Diagnosis Comme nts MR HEAD BRAIN WWO Routine 07/07/2022 1:38 PM Multiple sclerosi s, Results for this CDT relapsing-remitting procedur e are in (HC) the results section. from Last 3 Months Results MR Brain w/wo Contrast (07/07/2022 1:38 PM CDT) Anatomical Region Laterality Modality BRAIN, HEAD Magnetic Resonance Specimen (Source) Anatomical Collection Method Collection Time Re ceived Time Location / / Volume Laterality 07/07/2022 2:47 PM CDT Impressions 07/07/2022 2:47 PM CDT 1. No significant change compared to the MRI dated 03/12/2021. 2. Stable moderate supratentorial mild i nfratentorial T2 hyperintense white matter lesions, compatible with chronic demyelinating plaques. No enhancing lesions to suggest active demyelination. 3. Mauv-ru-rvuuwyfy T1 hypointense lesio n load. Mild cerebral and callosal atrophy. Dictated by Dandy Meza MD @ 07/07/20 2:47:11 PM (Electronically Signed) Narrative 07/07/2022 2:47 PM CDT For Patients: ??As a result of the Cures Act, medical imaging exams and procedure report s are released immediately into your brianna c[facility] medical record. ??You may view this report before your referring provider. ??If you have questions, please contact your health care provider. INDICATION: Multiple sclerosis. TECHNIQUE: Multiplanar multisequence MR imaging acq uired through the brain prior to and following intravenous contrast. COMPARISON: MRI brain 03/12/2021. FINDINGS: Moderate supratentorial and mild infrate ntorial T2 hyperintense white matter lesions are not significantly changed. Supratentorial lesions again involve the subcortical, periventricular, and deep white matter of both cerebral hemispheres. Not able infratentorial lesions within the tomasa and right brachium pontis. Qoxk-fq-kpghrmcv T1 hypointense lesion load. No enhancing lesions. Prominence of the ventricles and sulci c ompatible with mild diffuse cerebral volume loss. There is mild atrophy of the corpus callosum. No mass effect or midline shift. No intracranial hemorrhage or pat hologic extra-axial fluid collection. No diffusion restriction to suggest acute infarction. The major arterial flow voids of the sku llbase are preserved. The globes are symmetric. The paranasal sinuses are well aerated. Minimal mastoid fluid bilaterally. Procedure Note Dandy Meza MD - 07/07/2022F ormatting of this note might be different from the original. For Patients: As a result of the Cures Act, medical imaging exams and procedure reports are released immediately into your electronic medical record. You may view this report before your referring provider. If you have questions, please contact yo health care provider. INDICATION: Multiple sclerosis. TECHNIQUE: Multiplanar multisequence MR imaging acq uired through the brain prior to and following intravenous contrast. COMPARISON: MRI brain 03/12/2021. FINDINGS: Moderate supratentorial and mild infrate ntorial T2 hyperintense white matter lesions are not significantly changed. Supratentorial lesions again involve the subcortical, periventricular, and deep white matter of both cerebral hemispheres. Notable infratento rial lesions within the tomasa and right brachium pontis. Ilwd-fy-gxcnypvb T1 hypointense lesion load. No enhancing lesions. Prominence of the ventricles and sulci c ompatible with mild diffuse cerebral volume loss. There is mild atrophy of the corpus callosum. No mass effect or midline shift. No intracranial hemorrhage or pathologic extra-axial fluid collection. No diffusi on restriction to suggest acute infarction. The major arterial flow voids of the sku llbase are preserved. The globes are symmetric. The paranasal sinuses are well aerated. Minimal mastoid fluid bilaterally. IMPRESSION: 1. No significant change compared to the MRI dated 03/12/2021. 2. Stable moderate supratentorial mild i nfratentorial T2 hyperintense white matter lesions, compatible with chronic demyelinating plaques. No enhancing lesions to suggest active demyelination. 3. Kvbz-vc-iurwmrez T1 hypointense lesio n load. Mild cerebral and callosal atrophy. Dictated by Dandy Meza MD @ 07/07/20 22 2:47:11 PM (Electronically Signed) Hina Alcocer GRANITE SETTER MR from Last 3 Months Insurance Payer Benefit Plan / Subscriber ID Effective Phone Address T ype Group Dates MEDICARE PART MEDICARE PART B [id number] 2006-Pres A TTN: CLAIMS B - HB USE HB ONLY ent [address] [place] [address] MEDICARE PART MEDICARE PART A [id number] 2006-Pres A TTN: CLAIMS A - HB USE HB ONLY ent [address] [place] [address] MEDICARE - PB MEDICARE PB [id number] 2006-Pres ATTN: CLAIMS USE ONLY ONLY ent [address] [place] [address] BLUE CROSS BLUE CROSS OF [id number] 2018-Prese [address] [place] [address] MEDICARE PPS HC MEDICARE PPS [id number] 2006-Pres [address] ent [address] [place] [address] [address] [address] [place] [address] Dejuan Rodriguez Personal/Family Self 1960 [address]) [address] [place] [address] Advance Directives Latest Code Status on File Code Status Date Activated Date Inactivated Comments Partial Code 01/07/2022 6:25 PM 01/13/2022 4:47 PM DNR, but oka y for intubation Cardio Resuscitation: Other (specify in comments): Ventilation: No Restrictions Drug Protocol: No Restrictions Partial Code 07/25/2021 7:20 PM 07/30/2021 4:28 PM DNR, but ok ay for intubation Cardio Resuscitation: No Chest Compressions No Defibrillation/Cardioversion Ventilation: No Restrictions Drug Protocol: No Restrictions Full Code 05/25/2021 2:51 AM 05/29/2021 4:17 PM Code Status Discussion: Per Advance Care Plan Not Discussed Full Code 04/04/2021 7:52 AM 04/08/2021 3:32 PM Code Status Discussion: Per Existing Order Full Code 11/25/2019 7:54 AM 11/29/2019 7:45 PM Code Status Discussion: Per Advance Care Plan Care Teams Skilled Labor Relationship Specialty Start Date End Date Teresita Garcia MD PCP - General 05/13/11 [address] [place] [address] Lorna West RN Spasticity Management Care Registered Nurse 08/05/21 [address] Coordination- CK[facility] [address] [place] [address] [facility], 01/14/22 [facility] [address] [place] [address]
[2022-08-16 14:39] LABS: Appearance Urine Clear (Clear); Bilirubin Urine Negative (Negative); Blood Urine Negative (Negative); Color Urine Yellow (Yellow); Glucose Urine Negative (Negative); Ketones Urine Negative (Negative); Leukocyte Esterase Urine Trace (Negative); Nitrite Urine Negative (Negative); Protein Urine Negative (Negative); Urobilinogen Urine 0.2 (0.2-1.0); pH Urine 7.5 (5.0-8.5)
[2022-08-16 15:13] LABS: RBC Urine 0-2 (0-2); Squamous Epithelial Cell Urine Few (None-Few); WBC Urine 0-2 (0-5)
[2022-08-16 15:14] LABS: PCR FLU A Negative PCR FLU A (Negative); PCR FLU B Negative PCR FLU B (Negative); SARS PCR* Negative SARS-CoV-2 (Negative)
--- NOTE | 2022-08-16 16:01 | ED.NURSE ---
Pt rolled and repositioned with pillows.
[2022-08-16 16:33] VITALS: BP 121/83; PULSE 82; RESP 18; O2SAT 96
--- NOTE | 2022-08-16 16:34 | ED.NURSE ---
pt transferred back to [facility] [place] via BLS
== END 2022-08-16 16:35 | disposition home or self-care (01) ==
PROVIDERS: Emergency Provider Family Medicine
DX: M62.838 Other muscle spasm (principal); G35 Multiple sclerosis
CPT/HCPCS: 81001; 87631; 99283

== ENCOUNTER 2022-08-16 16:21 | Outpatient (CLI) | payer MEDICARE, BC, SELFPAY ==
--- OUTSIDE RECORDS SUMMARY | 2022-08-27 14:08 | XMS_ITS | Clinical Summary ---
:1960 Author Organization [place] Address [address] [place] [address] Care Team Providers Name Role Phone Teresita Garcia MD Primary Care Provider Audrey Hickman MD Unavailable [phone] Allergies Active Allergy Reactions Severity Noted Date [...] automated process. Provider to review and confirm.) Xyaw-Klztb-Kudboqr disease 05/14/2011 Atopic rhinitis 05/14/2011 Overview: (Problem [...] (tem poromandibular Audrey Gibbs MD joint syndro md) (Primary Dx) 07/24/2022 Telephone Family Practice Vick [...] you attend oriental orthodox or Not asked synagogue services? Do you [...] this topic Medical Devices Implanted Type Area Plate Slitter And Inspector Device Shelf Model / Identifier Expiration Serial / Date Lot Left Hip Metallic Left: Replacement Hardware/Anc Hip hor Insurance Payer Benefit Plan / Subscriber ID Effective Phone Address T ype Group Dates MEDICARE MEDICARE [id number] 2018-Prese [phone] ATTN ADRIANI [place] Medicare nt 40 [address] [facility] [place] [address] [place] [id number] 2018-Prese [phone] [address] [id number] Indemnity nt 00 [place] [address] Dejuan Rodriguez Personal/Family Self [address] (Home) [place] [address] Care Teams Vice President Financial Relationship Specialty Start Date End Date Teresita Garcia MD PCP - General Family Practice 01/22/11 [address] [place], [place] [id number] Audrey Hickman MD Assigned PCP 12/29/21 [address] [place], [place] [id number]
--- OUTSIDE RECORDS SUMMARY | 2022-08-27 14:08 | XMS_ITS | Encounter Summary ---
:1960 Author Organization [place] Address [address] [facility] [address] Care Team Providers Name Role Phone Teresita Garcia MD Primary Care Provider Audrey Hickman MD Unavailable [phone] Reason for Visit Reason Onset Date Comments UTI 01/07/2022 Encounter Details Date Type Department Care Team Description 01/07/2022 Telephone [facility] Roel Garcia MD UTI [place] [id number] [place] [address] [place], [place] [address] [place] [address] 55 [phone] Social History Tobacco Use Types Packs/Day Years [...] do you attend muslim or Not asked anabaptism services? Do you [...] documented as of this encounter Care Teams Shank Stapler Relationship Specialty Start Date End Date Teresita Garcia MD PCP - General Family Practice 01/22/11 [address] [place] [address] Audrey Hickman MD Assigned PCP 12/29/21 [address] [place] [address] documented as of this encounter
--- OUTSIDE RECORDS SUMMARY | 2022-08-27 14:08 | XMS_ITS | Encounter Summary ---
:1960 Author Organization [place] Address [facility] [place] [address] Care Team Providers Name Role Phone Teresita Garcia MD Primary Care Provider Teresita Garcia MD Unavailable Reason for Visit Reason Onset Date Comments Forms 08/23/2021 Encounter Details Date Type Department Care Team Description 08/23/2021 Telephone [facility] Roel Garcia MD Forms [place] [id number] [place] [address] [place] [address] [place] [address] [phone] Social History Tobacco Use Types Packs/Day Years [...] do you attend sabianist or Not asked orthodoxy services? Do you belong to any clubs [...] Form completed and faxed, 08/28/2021 Jackie Brito/AWILDA STRY OPERATIONS INVESTIGATOR Telephone Encounter - Vance Desai RN - 08/23/2021 1:46 PM CST Received call from [facility] stating some forms were missing from faxed forms 08/15/21. AskedHC to re-fax forms to [employer]. Routing to [facility] to review. Vance Person RN STRY OPERATIONS INVESTIGATOR documented in this encounter Plan of Treatment Not on filedocumented as of this encounter Visit Diagnoses Not on filedocumented in this encounter Additional Health Concerns Assessment Noted Time PHQ-9 Depression Total Score: 6 04/12/2021 1:59 PM CDT documented as of this encounter Care Teams Licensed Physical Therapy Assistant Relationship Specialty Start Date End Date Teresita Garcia MD PCP - General Family Practice 01/22/11 [address] [place] [address] Teresita Garcia MD Assigned PCP 11/16/16 12/28/21 [address] [place] [address] documented as of this encounter
--- OUTSIDE RECORDS SUMMARY | 2022-08-27 14:08 | XMS_ITS | Encounter Summary ---
:1960 Author Organization [place] Address [address] [facility] [place] [address] Care Team Providers Name Role Phone Teresita Garcia MD Primary Care Provider Audrey Hickman MD Unavailable [phone] Reason for Visit Reason Comments Catheter Problem Encounter Details Date Type Department Care Team Description 01/02/2022 Emergency [facility] Johana Urena Ac sridevi cystitis without hematuria; [facility] Emergency Dep t Obstruction of Rivera catheter, initial e ncounter (H) [address] [facility] [employer] [place] [address] [address] [facility] [phone] [place], [place] [address] (Wo rk) Social History [...] do you attend yazidi or Not asked taoist services? Do you [...] Miralax Mirapex Ocrelizumab Past Medical History: Depression Ihut-Vesye-Bhxpqwm disease Juvenile osteochondrosis of hip and pelvis [...] Bilirubin Urine Negative Ketones Urine Negative Specific [place] Urine 1.010 Blood Urine Moderate (*) pH [...] statements to me. Johana Urena MD 01/02/22 6990 Johana Urena MD 01/02/22 6487 documented in this encounter Plan of Treatment [...] (ABNORMAL) Urine Culture (01/02/2022 2:46 PM CDT) [facility] gist Method Time Signature Culture >100,000 [...] Susceptibility testing requeste d by Donte Leija [phone] for Cipto on E. Faecalis 01.06.2022 @ [address] [place] [address] Johana Urena MD LAB - MICRO GENERAL ORDERABL ES Performing Organization Address City/State/ZIP Code Phon e Number [facility] [place] [id number] Diag. Lab [address] [facility], Room D297 (ABNORMAL) UA with Microscopic reflex to Culture (01/02/2022 2:46 PM CDT) [facility] Method Time Signature Color Urine Yellow Colorless, 01/02/2022 LABORATORY Straw, 3:25 PM CDT Light Yellow, Yellow Appearance Urine Slightly Clear 01/02/2022 RH LABORATOR Y Cloudy (A) 3:25 PM CDT Glucose Urine Negative Negative 01/02/2022 LABORATORY mg/dL 3:25 PM CDT Bilirubin Urine Negative Negative 01/02/2022 LABORATORY 3:25 PM CDT Ketones Urine Negative Negative 01/02/2022 LABORATORY mg/dL 3:25 PM CDT Specific [place] 1.010 1.003 - 01/02/2022 LABORATOR Y Urine [...] Address City/State/ZIP Code Phon [place] [phone] Care Lab [address] [facility] (1st floor, no room number) [...] documented as of this encounter Care Teams Laborer Syrup Machine Relationship Specialty Start Date End Date Teresita Garcia MD PCP - General Family Practice 01/22/11 [address] [place], [place] [id number] Audrey Hickman MD Assigned PCP 12/29/21 [address] [place], [place] [id number] documented as of this encounter
--- OUTSIDE RECORDS SUMMARY | 2022-08-27 14:08 | XMS_ITS | Encounter Summary ---
:1960 Author Organization [place] Address [address] [facility] [address] Care Team Providers Name Role Phone Teresita Garcia MD Primary Care Provider Teresita Garcia MD Unavailable Audrey Hickman MD Unavailable [phone] Reason for Visit Reason Onset Date Comments Call Back 10/01/2021 patient is dealing w josie Franklin in his feet and ankles, had asked about compression so cks if they would be ok for him. Encounter Details Date Type Department Care Team Description 10/01/2021 Telephone [facility] Teresita Garcia MD Call Back (patient is [facility] [id number] [place] [address] [place] [address] [place], [place] his feet and ankles, [place] [address] had asked about [phone] compression socks if [...] do you attend taoist or Not asked synagogue services? Do you [...] 11:02 AM CST Left detailed message on [employer]'s ([facility]) machine that DME for compression stockings hasbeen approved and signed. Need to ask what should be done with the DME? Picked up, mailed, faxed? Form is in basket at [facility]. Yumiko Camp CMA TING INSTALLER Telephone Encounter - Teresita Garcia MD [...] sign it by another provider p cr. TING INSTALLER Telephone Encounter - Karen Covarrubias RN - 10/02/2021 4:49 PM CST Called Sivakumar home care nurse, informs: ~not new issue ~now that in chair more lower leg edema worsening ~now lives in [place] in , [place] ~not regular nurse, covering [...] route to inform Sivakumar Covarrubias RN, BSN [facility] TING INSTALLER Telephone Encounter - Teresita Garcia MD [...] sign it for patient. Teresita Garcia MD [facility] [phone] TING INSTALLER Telephone Encounter - Karen Covarrubias RN - 10/02/2021 4:23 PM CST Routed to , see home care note and advise compression socks, please advise, route to inform Siv[facility]umar home health care provider of plan patient is dealing with edema in his feet and ankles, had asked about compression socks if they would be ok for him. Karen Covarrubias RN, BSWilliam [facility] TING INSTALLER Telephone Encounter - Hiren Johnson - 10/01/2021 6:06 PM CST Reason for call: Other Patient called regarding (reason for call): call back Additional comments: in regards to compression socks Phone number to reach patient: Other phone number: Sivakumar MONTOYA from [facility] [phone] Best Time: During business hours Can we leave a detailed message on this number? YES Travel screening: Not Applicable TING INSTALLER documented in this encounter Plan of Treatment Not on filedocumented as of this encounter Visit Diagnoses Diagnosis Ialq-Nqzyv-Zfppnnw disease - Primary Juvenile osteochondrosis of hip and pelv is documented in this encounter Additional Health Concerns Assessment Noted Time PHQ-9 Depression Total Score: 6 04/12/2021 1:59 PM CDT documented as of this encounter Care Teams Manager Meeting Relationship Specialty Start Date End Date Teresita Garcia MD PCP - General [facility] Practice 01/22/11 [address] [place], [place] [phone] Teresita Garcia MD Assigned PCP 11/16/16 12/28/21 [address] [place], [place] [phone] Audrey Hickman MD Assigned PCP 12/29/21 [address] [place] [address] documented as of this encounter
--- OUTSIDE RECORDS SUMMARY | 2022-08-27 14:08 | XMS_ITS | Encounter Summary ---
:1960 Author Organization [place] Address [address] [place] [address] Care Team Providers Name Role Phone Teresita Garcia MD Primary Care Provider Teresita Garcia MD Unavailable Encounter Details Date Type Department Care Team Description 10/01/2021 Telephone [facility] Roel Garcia MD [place] [address] [phone] Social History Tobacco Use Types Packs/Day Years [...] do you attend yarsani or Not asked oriental orthodox services? Do [...] 10/01/2021 5:17 PM CST Lennox PT from [facility] calling from [phone]. Requesting orders for lymphedema assessment. They will be faxing orders as well. Zuleyma Fierro RN on 10/01/2021 at 5:18 PM HER OPERATOR documented in this encounter Plan of Treatment Not on filedocumented as of this encounter Visit Diagnoses Not on filedocumented in this encounter Additional Health Concerns Assessment Noted Time PHQ-9 Depression Total Score: 6 04/12/2021 1:59 PM CDT documented as of this encounter Care Teams Compacting Machine Operator/Tender Relationship Specialty Start Date End Date Teresita Garcia MD PCP - General Family Practice 01/22/11 [address] [place], [place] [phone] Teresita Garcia MD Assigned PCP 11/16/16 12/28/21 [address] [place] [address] documented as of this encounter
--- OUTSIDE RECORDS SUMMARY | 2022-08-27 14:08 | XMS_ITS | Encounter Summary ---
:1960 Author Organization [place] Address [address] [facility] [place] [address] Care Team Providers Name Role Phone Teresita Garcia MD Primary Care Provider Audrey Hickman MD Unavailable [phone] Reason for Visit Reason Comments Erroneous encounter-disregard Encounter Details Date Type Department Care Team Description 08/18/2022 Virtual Visit [facility] Sedrick Giron MD No Show [place] [id number] [place] [address] [place], [place] [phone] [address] (Wo rk) Social [...] do you attend congregational or Not asked buddhism services? Do you [...] documented as of this encounter Care Teams Delivery Nurse Relationship Specialty Start Date End Date Teresita Garcia MD PCP - General Family Practice 01/22/11 [address] [place], [place] [phone] Audrey Hickman MD Assigned PCP 12/29/21 [address] [place] [address] documented as of this encounter
--- OUTSIDE RECORDS SUMMARY | 2022-08-27 14:08 | XMS_ITS | Encounter Summary ---
:1960 Author Organization [place] Address [address] [facility] [place] [address] Care Team Providers Name Role Phone Teresita Garcia MD Primary Care Provider Teresita Garcia MD Unavailable Reason for Visit Reason Onset Date Comments [facility] 10/07/2021 Encounter Details Date Type Department Care Team Description 10/07/2021 Telephone [facility] Teresita Garcia MD [facility] [address] [place] [phone] Social History Tobacco Use Types Packs/Day [...] do you attend samaritan or Not asked mormonism services? Do you [...] 10/08/2021 2:55 PM CST DME faxed to [facility] in [place]. Yumiko Camp CMA S FLOOR TEAM LEADER Telephone Encounter - Coty Fleming RN - 10/07/2021 5:07 PM CST Routing to to inform. NORM Campos, RN [facility] S FLOOR TEAM LEADER Telephone Encounter - Mi Crowe RN - 10/07/2021 4:39 PM CST Priority nurse call received from JAN Clark with [facility]: 1. Returning call about compression stockings for patient 2. Will be out to see patient on 10/08/21 and will take measurements, then call PCP clinic to relay those measurements 3. DME order can be sent to whichever medical supply store [facility] uses Informed Eduardo a message will be sent to patient's PCP care team at [facility]. Eduardo verbalized understanding and in agreement with plan. Eduardo stated his voicemail is confidential. Thank you! NORM Escobedo, RN [facility] S FLOOR TEAM LEADER documented in this encounter Plan of Treatment Not on filedocumented as of this encounter Visit Diagnoses Not on filedocumented in this encounter Additional Health Concerns Assessment Noted Time PHQ-9 Depression Total Score: 6 04/12/2021 1:59 PM CDT documented as of this encounter Care Teams Money Examiner Relationship Specialty Start Date End Date Teresita Garcia MD PCP - General Family Practice 01/22/11 [address] [place] [address] Teresita Garcia MD Assigned PCP 11/16/16 12/28/21 [address] [place] [address] documented as of this encounter
--- OUTSIDE RECORDS SUMMARY | 2022-08-27 14:08 | XMS_ITS | Encounter Summary ---
:1960 Author Organization [place] Address [address] [facility] [place] [address] Care Team Providers Name Role Phone Teresita Garcia MD Primary Care Provider Audrey Hickman MD Unavailable [phone] Encounter Details Date Type Department Care Team Description 02/04/2022 Telephone [facility] Roel Garcia MD [address] [address] [place] [address] [phone] Social History Tobacco Use Types Packs/Day Years [...] do you attend restorationist or Not asked tenriism services? Do you [...] 02/04/2022 3:23 PM CDT Fax received from [facility] for plan of care . This will be placed in PCP in box . Sophie Swain Crimping Press Operator documented in this encounter Plan of Treatment Not on filedocumented as of this encounter Visit Diagnoses Not on filedocumented in this encounter Additional Health Concerns Assessment Noted Time PHQ-9 Depression Total Score: 6 04/12/2021 1:59 PM CDT documented as of this encounter Care Teams Car Repairer Pullman Relationship Specialty Start Date End Date Teresita Garcia MD PCP - General Family Practice 01/22/11 [address] [place] [address] Audrey Hickman MD Assigned PCP 12/29/21 [address] [place] [address] documented as of this encounter
--- OUTSIDE RECORDS SUMMARY | 2022-08-27 14:08 | XMS_ITS | Encounter Summary ---
:1960 Author Organization [place] Address [facility] [place] [address] Care Team Providers Name Role Phone Teresita Garcia MD Primary Care Provider Audrey Hickman MD Unavailable [phone] Reason for Visit Reason Comments Medication Refill Encounter Details Date Type Department Care Team Description 08/13/[address] [facility] Roel Garcia MD Medication Refill [address] [place] [address] [place], [place] [phone] Social History Tobacco Use Types Packs/Day Years [...] do you attend denominational or Not asked rastafarian services? Do you [...] Telephone Encounter - Mary More RN - 08/26/2022 1:06 PM CST Patient calling back. Home Care Nurse JAN Lino there currently. She states [facility] does have [facility] Team but only takes certain insurances. Zoie states she will check if he qualifies and call back with yes or no so have plan going forward. Mary More RN R BAGS SEWING MACHINE OPERATOR Telephone Encounter - Karen Covarrubias RN - 08/26/2022 11:22 AM CST Called pt, confirmed Dr Garcia is PCP, pt does not want to change PCP, discussed below, pt will ask home care nurse that is coming today if knows about provider team that comes to residence, agrees to explore this option Karen Covarrubias RN, BSN [facility] R BAGS SEWING MACHINE OPERATOR Telephone Encounter - Marjorie Laird RN - 08/19/2022 11:28 AM CST Per Audrey Hickman MD: Patient seen recently virtually for presumed TMJ. I would recommend establishing care with providerteam that comes to his residence to avoid fragmented care as unable to come in. Left message on machine to call back any triage nurse to relay message. Marjorie Laird RN R BAGS SEWING MACHINE OPERATOR Telephone Encounter - Teresita Garcia MD - 08/13/2022 4:46 PM CST Audrey, I wonder if you're seeing the patient from now on. R BAGS SEWING MACHINE OPERATOR Telephone Encounter - Blanca Choi RN - 08/13/2022 4:02 PM CST Routing refill request to provider for review/approval because: Dexa on file within past 2 years Normal serum creatinine on file within past 12 months Creatinine Date Value Ref Range Status 11/25/2019 0.95 0.72 - 1.25 mg/dL Final Last Dexa 04/04/2020 Blanca Choi, Registered Nurse [facility] R BAGS SEWING MACHINE OPERATOR documented in this encounter Plan of Treatment Not on filedocumented as of this encounter Visit Diagnoses Diagnosis Osteoporosis, unspecified osteoporosis t ype, unspecified pathological fracture presence documented in this encounter Additional Health Concerns Assessment Noted Time PHQ-9 Depression Total Score: 6 04/12/2021 1:59 PM CDT documented as of this encounter Care Teams Aircraft Instrument Mechanic Relationship Specialty Start Date End Date Teresita Garcia MD PCP - General Family Practice 01/22/11 [address] [place], [place] [phone] Audrey Hickman MD Assigned PCP 12/29/21 [address] [place], [place] [phone] documented as of this encounter
--- OUTSIDE RECORDS SUMMARY | 2022-08-27 14:08 | XMS_ITS | Encounter Summary ---
:1960 Author Organization [place] Address [address] [facility] [place] [address] Care Team Providers Name Role Phone Teresita Garcia MD Primary Care Provider Teresita Garcia MD Unavailable Reason for Visit Reason Onset Date Comments Forms 12/05/2021 Plan of Care Encounter Details Date Type Department Care Team Description 12/05/2021 Telephone [facility] Roel Garcia MD Forms (Plan of Care) [id number] [place] [phone] Social History Tobacco Use Types Packs/Day Years [...] do you attend zoroastrian or Not asked sikh services? Do you [...] Form completed and faxed, 12/05/2021 Jackie Brito/AWILDA ESSING TALC AND BORATE SUPERVISOR Telephone Encounter - Rosy Brito - 12/05/2021 10:19 AM CST Received 7 page fax for Plan of Care for Dr Garcia to complete. Form in the in- basket at AA's desk. ESSING TALC AND BORATE SUPERVISOR documented in this encounter Plan of Treatment Not on filedocumented as of this encounter Visit Diagnoses Not on filedocumented in this encounter Additional Health Concerns Assessment Noted Time PHQ-9 Depression Total Score: 6 04/12/2021 1:59 PM CDT documented as of this encounter Care Teams Pcb Designer Relationship Specialty Start Date End Date Teresita Garcia MD PCP - General Family Practice 01/22/11 [address] [place] [address] Teresita Garcia MD Assigned PCP 11/16/16 12/28/21 [address] [place] [address] documented as of this encounter
--- OUTSIDE RECORDS SUMMARY | 2022-08-27 14:08 | XMS_ITS | Encounter Summary ---
:1960 Author Organization [place] Address [facility] [place] [address] Care Team Providers Name Role Phone Teresita Garcia MD Primary Care Provider Teresita Garcia MD Unavailable Reason for Visit Reason Comments Medication Refill Encounter Details Date Type Department Care Team Description 10/19/2021 Refill [facility] Roel Garcia MD Medication Refill [address] [address] [place], [place] [phone] [place] [address] [phone] Social History Tobacco Use Types Packs/Day Years [...] you attend oriental orthodox or Not asked uatsdin services? Do you [...] add to yesterday's RX. Mary More RN ICULTURAL MANAGER Telephone Encounter - Teresita Garcia MD - 10/22/2021 3:20 PM CST Pt has MS and it is very hard for him to come in for labs. His last creatinine was done on 07/26/2021 and was normal. Please give 1 year supply. ICULTURAL MANAGER Telephone Encounter - Lianet Correa RN - 10/22/2021 1:19 PM CST Routing refill request to provider for review/approval because: Labs not current: Cr Visit is up to date, RN will issue 90 day aimee. Please advise on labs. Lianet Correa RN [facility] -- Triage Nurse ICULTURAL MANAGER documented in this encounter Plan of Treatment Not on filedocumented as of this encounter Visit Diagnoses Diagnosis Osteoporosis, unspecified osteoporosis t ype, unspecified pathological fracture presence documented in this encounter Additional Health Concerns Assessment Noted Time PHQ-9 Depression Total Score: 6 04/12/2021 1:59 PM CDT documented as of this encounter Care Teams Informaticist Relationship Specialty Start Date End Date Teresita Garcia MD PCP - General Family Practice 01/22/11 [address] [place] [address] Teresita Garcia MD Assigned PCP 11/16/16 12/28/21 [address] [place] [address] documented as of this encounter
--- OUTSIDE RECORDS SUMMARY | 2022-08-27 14:08 | XMS_ITS | Encounter Summary ---
:1960 Author Organization [place] Address [address] [facility] [place] [address] Care Team Providers Name Role Phone Teresita Garcia MD Primary Care Provider Audrey Hickman MD Unavailable [phone] Reason for Referral Home Health Therapies & Aides (Routine: Next available opening) - Referral NOT Required Specialty Diagnoses / Procedures Referred By Contact Refer red To Contact Diagnoses TMJ (temporomandibular joint syndrome) Audrey Hickman [facility] MD Bernie [facility] [address] [phone] Referral ID Status Reason Start Date Expiration Date Visits V isits Requested Authorized [id number] Referral NOT 07/24/2022 07/24/2023 1 1 Required Reason for Visit Reason Comments Jaw Pain right Encounter Details Date Type Department Care Team Description 07/24/2022 Virtual Visit [facility] TMJ ([facility] [place] Audrey Gibbs MD joint syndrome) [id number] [place] [address] (Primary Dx) [place] [address] [phone] Social History Tobacco Use Types Packs/Day Years [...] do you attend synagogue or Not asked jainism services? Do you [...] be sent through Care Everywhere. Syndrome, TMJ (Colombian)documented in this encounter Progress Notes Audrey Hickman MD - 07/24/2022 4:00 PM CDT Dejuan is a 61 year old who is being evaluated via a billable video visit. How would you like to obtain your AVS? MyChart If the video visit is dropped, the invitation should be resent by: Text to cell phone: [phone] Will anyone else be joining your video [...] No follow-ups on file. Audrey Hickman MD [facility] Subjective Dejuan is a 61 year old, presenting for the following health issues: Jaw Pain (right) HPI Concern - right jaw pain Onset: about 10 years ago Description: sharp pain on the right jaw Intensity: severe Progression of Symptoms: same and intermittent Accompanying Signs & Symptoms: none Therapies tried and outcome: Physical therapy Per patient he was seen [facility] and was diagnosed [...] Name Type Priority Associated Diagnoses Order [facility] Referral Referral Routine: Next TMJ Ordered: available opening (temporomandibular 06/29 joint syndrome) documented as of this encounter Visit Diagnoses Diagnosis TMJ (temporomandibular joint syndrome) - Primary Temporomandibular joint disorders, unspe cified documented in this encounter Additional Health Concerns Assessment Noted Time PHQ-9 Depression Total Score: 6 04/12/2021 1:59 PM CDT documented as of this encounter Care Teams Lav Crewman Relationship Specialty Start Date End Date Teresita Garcia MD PCP - General Family Practice 01/22/11 [address] [place], [place] [id number] Audrey Hickman MD Assigned PCP 12/29/21 [address] [facility], [place] [id number] documented as of this encounter
--- OUTSIDE RECORDS SUMMARY | 2022-08-27 14:08 | XMS_ITS | Encounter Summary ---
:1960 Author Organization [place] Address [facility] [place] [address] Care Team Providers Name Role Phone Teresita Garcia MD Primary Care Provider Audrey Hickman MD Unavailable [phone] Reason for Visit Reason Comments Medication Refill Encounter Details Date Type Department Care Team Description 05/13/2022 Refill [facility] Roel Garcia MD Medication Refill [address] [place] [address] [place], [place] [address]283 [phone] Social History Tobacco Use Types Packs/Day Years [...] do you attend confucianism or Not asked hoahaoism services? Do you [...] office visit. Cindy Bonilla RN, BSN, PHN [facility] documented in this encounter Plan of Treatment Not on filedocumented as of this encounter Visit Diagnoses Diagnosis Seborrheic dermatitis of scalp Other seborrheic dermatitis documented in this encounter Additional Health Concerns Assessment Noted Time PHQ-9 Depression Total Score: 6 04/12/2021 1:59 PM CDT documented as of this encounter Care Teams Pony Rougher Relationship Specialty Start Date End Date Teresita Garcia MD PCP - General Family Practice 01/22/11 [address] [place], [place] [id number] Audrey Hickman MD Assigned PCP 12/29/21 [address] [place], [place] [id number] documented as of this encounter
--- OUTSIDE RECORDS SUMMARY | 2022-08-27 14:08 | XMS_ITS | Encounter Summary ---
:1960 Author Organization [place] Address [address] [place] [address] Care Team Providers Name Role Phone Teresita Garcia MD Primary Care Provider Audrey Hickman MD Unavailable [phone] Reason for Visit Reason Onset Date Comments Nurse Advice Line 07/24/2022 Encounter Details Date Type Department Care Team Description 07/24/2022 Telephone [facility] Audrey Hickman Nurse Advice [place] Bernie [address] [address] [phone] (Wo rk) Social History Tobacco Use Types [...] do you attend anabaptism or Not asked mormonism services? Do you [...] 07/24/2022 10:47 AM CDT Called pt per [facility], has appointment today for jaw pain [...] ordered A-(assessment): jaw pain R-(recommendations): routed to [facility], pt looking for possibility of jaw massage at home, now pain keeps him up at night and interferes with daily routines and needs to do something, pt wonders about TMJ referral and if they do virtual visits due to his condition, was hoping to sort things out at virtualvisit today Routed to [facility] Karen Covarrubias RN, BSN [facility] documented in this encounter Plan of Treatment Not on filedocumented as of this encounter Visit Diagnoses Not on filedocumented in this encounter Additional Health Concerns Assessment Noted Time PHQ-9 Depression Total Score: 6 04/12/2021 1:59 PM CDT documented as of this encounter Care Teams Senior Pensions Administrator Relationship Specialty Start Date End Date Teresita Garcia MD PCP - General Family Practice 01/22/11 [address] [place], [place] [id number] Audrey Hickman MD Assigned PCP 12/29/21 [address] [place] [address] documented as of this encounter
--- OUTSIDE RECORDS SUMMARY | 2022-08-27 14:08 | XMS_ITS | Encounter Summary ---
:1960 Author Organization [place] Address [address] [facility] [place] [address] Care Team Providers Name Role Phone Teresita Garcia MD Primary Care Provider Audrey Hickman MD Unavailable [phone] Encounter Details Date Type Department Care Team [...] do you attend lutheran or Not asked anabaptist services? Do you [...] documented as of this encounter Care Teams Coal And Ash Supervisor Relationship Specialty Start Date End Date Teresita Garcia MD PCP - General Family Practice 01/22/11 [address] [place], [place] [id number] Audrey Hickman MD Assigned PCP 12/29/21 [address] [place], [place] [id number] documented as of this encounter
--- OUTSIDE RECORDS SUMMARY | 2022-08-27 14:08 | XMS_ITS | Encounter Summary ---
:1960 Author Organization [place] Address [address] [place] [address] Care Team Providers Name Role Phone Teresita Garcia MD Primary Care Provider Audrey Hickman MD Unavailable Reason for Visit Reason Onset Date Comments Results 01/06/2022 Urine Culture Encounter Details Date Type Department Care Team Description 01/06/2022 Telephone [facility] Katharina Leija Resul ts (Urine Culture) [facility] Emergency Dep t RN [address] [place] [address] Social History Tobacco Use Types Packs/Day Years [...] do you attend uatsdin or Not asked buddhist services? Do you [...] Leija RN - 01/06/2022 1:18 PM CDT [facility] () Emergency Department Lab result notification [Adult-Male] [facility] ED lab result protocol used Urine Culture Reason for call Notify of lab results, assess symptoms, review ED providers recommendations/discharge instructions (if necessary) and advise per ED lab result f/u protocol Lab Result (including Rx patient on, if applicable) Final Urine Culture Report on 01/06/22. [facility] Emergency Dept discharge antibiotic prescribed: Ciprofloxacin (Cipro) 500 mg tablet, 1 tablet (500 mg) by mouth 2 times daily for 7 days. Bacteria #1: >100,000 colonies/mL Pseudomonas aeruginosa is [RESISTANT] to antibiotic Bacteria #2: >100,000 colonies/mL Enterococcus faecalis is [NOT TESTED] to antibiotic Recommendations in treatment per [facility] ED Lab result protocol. Information table from [...] encounter (H) ED provider Johana Urena MD linter drier operator (Patient???s current Symptoms), include time called. 1:47P - when asked patient states he feels Not so great I guess could be better - reporting 'just fatigue' Genitourinary symptoms: NO - just a lot of sediment this is often baseline per ED report Fever: NO Flank pain: NO Rivera Catheter: YES - functioning well Urologist: MD Sinan - [facility] Fax #: [phone] Attention: RODRIGO Church RN Recommendations/Instructions per [facility] ED lab result protocol 2:00 - patient [...] follow-up Questions asked: YES Katharina Leija RN [facility] Emergency Dept Lab Result RN # [phone] Copy of Lab result Urine Culture Order: [id number] - Reflex for Order [id number] Status: Final result ?? Visible to patient: [...] of this encounter Care Teams Sheet Metal Superintendent Relationship Specialty Start Date End Date Teresita Garcia MD PCP - General Family Practice 01/22/11 [address] [place], [place] [id number] Audrey Hickman MD Assigned PCP 12/29/21 [address] [place], [place] [phone] documented as of this encounter
--- OUTSIDE RECORDS SUMMARY | 2022-08-27 14:09 | XMS_ITS | Encounter Summary ---
:1960 Author Organization [place] Address [address] [facility] [place] [address] Care Team Providers Name Role Phone Teresita Garcia MD Primary Care Provider Teresita Garcia MD Unavailable Reason for Visit Reason Onset Date Comments Medication Request 04/16/2021 ketoconazole (NIZORA L) 2 % external shampoo Encounter Details Date Type Department Care Team Description 04/16/2021 Telephone [facility] Teresita Garcia MD Medication Request Clinic [address] (ketoconazole (NIZORAL) [id number] [place] [address] 2 % external shampoo) [place], [place] [phone] Social History Tobacco Use Types Packs/Day [...] do you attend religion or Not asked tenriism services? Do you [...] as of this encounter Care Teams Shipping Receiving Clerk Relationship Specialty Start Date End Date Teresita Garcia MD PCP - General Family Practice 01/22/11 [address] [place], [place] [phone] Teresita Garcia MD Assigned PCP 11/16/16 12/28/21 [address] [place] [address] documented as of this encounter
--- OUTSIDE RECORDS SUMMARY | 2022-08-27 14:09 | XMS_ITS | Encounter Summary ---
:1960 Author Organization [place] Address [address] [facility] [place] [address] Care Team Providers Name Role Phone Teresita [...] documented as of this encounter Care Teams Coffee Maker Servicer Relationship Specialty Start Date End Date Teresita Garcia MD PCP - General Family Practice 01/22/11 [address] [place] [address] Teresita Garcia MD Assigned PCP 11/16/16 12/28/21 [address] [place] [address] documented as of this encounter
--- OUTSIDE RECORDS SUMMARY | 2022-08-27 14:09 | XMS_ITS | Encounter Summary ---
:1960 Author Organization [place] Address [address] [facility] [place] [address] Care Team Providers Name Role Phone Teresita Garcia MD Primary Care Provider Teresita Garcia MD Unavailable Reason for Visit Reason Onset Date Comments Home Care/Hospice 08/14/2021 Encounter Details Date Type Department Care Team Description 08/14/2021 Telephone [facility] Roel Garcia MD Home Care/Hospice [phone] [place] [phone] Social History Tobacco Use Types Packs/Day Years [...] do you attend muslim or Not asked yazdanism services? Do you [...] fax for MD signature. Mary More RN PPER [employer] documented in this encounter Plan of Treatment Not on filedocumented as of this encounter Visit Diagnoses Not on filedocumented in this encounter Additional Health Concerns Assessment Noted Time PHQ-9 Depression Total Score: 6 04/12/2021 1:59 PM CDT documented as of this encounter Care Teams Self Propelled Hot Mix Roller Operator Relationship Specialty Start Date End Date Teresita Garcia MD PCP - General Family Practice 01/22/11 [address] [place] [address] Teresita Garcia MD Assigned PCP 11/16/16 12/28/21 [address] [place], [place] [phone] documented as of this encounter
--- OUTSIDE RECORDS SUMMARY | 2022-08-27 14:09 | XMS_ITS | Encounter Summary ---
:1960 Author Organization [place] Address [address] [facility] [place] [address] Care Team Providers Name Role Phone Teresita Garcia MD Primary Care Provider Teresita Garcia MD Unavailable Encounter Details Date Type Department Care Team Description 08/14/2021 Medical Correspondence [facility] [place] Scan, ORDER [facility] Health Info Mgmt Non-Provider HEALTH/HOSP ICE Sr[facility]cs [address] [place] [address] Social History Tobacco Use Types [...] do you attend scientologist or Not asked druze services? Do you belong to any clubs [...] documented as of this encounter Care Teams Production Crew Supervisor Relationship Specialty Start Date End Date Teresita Garcia MD PCP - General Family Practice 01/22/11 [address] [place], [place] [phone] Teresita Garcia MD Assigned PCP 11/16/16 12/28/21 [address] [place], [place] [phone] documented as of this encounter
--- OUTSIDE RECORDS SUMMARY | 2022-08-27 14:09 | XMS_ITS | Encounter Summary ---
:1960 Author Organization [place] Address [address] [facility] [place] [address] Care Team Providers Name Role Phone Teresita Garcia MD Primary Care Provider Teresita Garcia MD Unavailable Reason for Visit Reason Onset Date Comments Home Care/Hospice 08/09/2021 PT and OT Encounter Details Date Type Department Care Team Description 08/09/2021 Telephone [facility] Teresita Garcia MD Home Care/Hospice (PT [facility] [place] [phone] [place] [address] and OT) [address] [place] [phone] Social History Tobacco Use Types [...] do you attend methodist or Not asked latter-day services? Do you [...] CST Homecare Orders Requested: Zoie at from [facility] called to request orders for the following Services: Physical Therapy for:eval and treat and Occupational Therapy for:eval and treat Informs pt getting weaker and needs more assistance with transfers, would like Pt and OT added Verbal order provided, FYI to Homecare agency to fax orders over for review and signature of PCP. Karen Covarrubias RN ECTION CLERK documented in this encounter Plan of Treatment Not on filedocumented as of this encounter Visit Diagnoses Not on filedocumented in this encounter Additional Health Concerns Assessment Noted Time PHQ-9 Depression Total Score: 6 04/12/2021 1:59 PM CDT documented as of this encounter Care Teams Work Checker Relationship Specialty Start Date End Date Teresita Garcia MD PCP - General Family Practice 01/22/11 [address] [place] [address] Teresita Garcia MD Assigned PCP 11/16/16 12/28/21 [address] [place] [address] documented as of this encounter
--- OUTSIDE RECORDS SUMMARY | 2022-08-27 14:09 | XMS_ITS | Encounter Summary ---
:1960 Author Organization [place] Address [address] [facility] [place] [address] Care Team Providers Name Role Phone Teresita Garcia MD Primary Care Provider Teresita Garcia MD Unavailable Reason for Visit Reason Onset Date Comments Home Care/Hospice 08/14/2021 Encounter Details Date Type Department Care Team Description 08/14/2021 Telephone [facility] Roel Garcia MD Home Care/Hospice [address] [place] [phone] Social History Tobacco Use Types Packs/Day Years [...] do you attend congregation or Not asked tenriism services? Do you [...] fax for MD signature. Mary More RN NG CREW LEADER documented in this encounter Plan of Treatment Not on filedocumented as of this encounter Visit Diagnoses Not on filedocumented in this encounter Additional Health Concerns Assessment Noted Time PHQ-9 Depression Total Score: 6 04/12/2021 1:59 PM CDT documented as of this encounter Care Teams Printer Repair Technician Relationship Specialty Start Date End Date Teresita Garcia MD PCP - General Family Practice 01/22/11 [address] [place], [place] [phone] Teresita Garcia MD Assigned PCP 11/16/16 12/28/21 [address] [place], [place] [phone] documented as of this encounter
--- OUTSIDE RECORDS SUMMARY | 2022-08-27 14:09 | XMS_ITS | Encounter Summary ---
:1960 Author Organization [place] Address [address] [facility] [place] [address] Care Team Providers Name Role Phone Teresita [...] do you attend yazidi or Not asked advent services? Do you [...] as of this encounter Care Teams Certified Registered Locksmith Relationship Specialty Start Date End Date Teresita Garcia MD PCP - General Family Practice 01/22/11 [address] [place] [address] Teresita Garcia MD Assigned PCP 11/16/16 12/28/21 [address] [place] [address] documented as of this encounter
--- OUTSIDE RECORDS SUMMARY | 2022-08-27 14:09 | XMS_ITS | Encounter Summary ---
:1960 Author Organization [place] Address [address] [place] [address] Care Team Providers Name Role Phone Teresita Garcia MD Primary Care Provider Teresita Garcia MD Unavailable Encounter Details Date Type Department Care Team Description 06/02/2021 Medical Correspondence [facility] Scan, SKIN MANAGEMENT Health Info Mgmt Non-Provider ORDER [facility] AND [address] [place] [address] Social History Tobacco Use Types Packs/Day [...] do you attend latter-day or Not asked hoahaoism services? Do you [...] documented as of this encounter Care Teams Physician Chief Of Pathology Relationship Specialty Start Date End Date Teresita Garcia MD PCP - General Family Practice 01/22/11 [address] [place], [place] [phone] Teresita Garcia MD Assigned PCP 11/16/16 12/28/21 [address] [place] [address] documented as of this encounter
--- OUTSIDE RECORDS SUMMARY | 2022-08-27 14:09 | XMS_ITS | Encounter Summary ---
:1960 Author Organization [place] Address [address] [facility] [place] [address] Care Team Providers Name Role Phone Teresita Garcia MD Primary Care Provider Teresita Garcia MD Unavailable Reason for Visit Reason Onset Date Comments Home Care/Hospice 07/23/2021 [facility] Encounter Details Date Type Department Care Team Description 07/23/2021 Telephone [facility] Teresita Garcia MD Home Care/Hospice ([facility]) Clinic [address] [place] [phone] Social History Tobacco Use Types Packs/Day [...] do you attend zoroastrian or Not asked taoism services? Do you [...] Homecare Orders Requested: Zoie MONTOYA at from [facility] Agency called to request orders for the [...] documented as of this encounter Care Teams Engraving Plate Maker Relationship Specialty Start Date End Date Teresita Garcia MD PCP - General Family Practice 01/22/11 [address] [place] [address] Teresita Garcia MD Assigned PCP 11/16/16 12/28/21 [address] [place] [address] documented as of this encounter
--- OUTSIDE RECORDS SUMMARY | 2022-08-27 14:09 | XMS_ITS | Encounter Summary ---
:1960 Author Organization [place] Address [facility] [address] Care Team Providers Name Role Phone Teresita Garcia MD Primary Care Provider Teresita Garcia MD Unavailable Reason for Visit Reason Onset Date Comments Orders 05/03/2021 [facility] Encounter Details Date Type Department Care Team Description 05/03/2021 Telephone [facility] Roel Garcia MD Orders ([facility]) [address] [place] [phone] (Wo rk) Social History Tobacco Use Types [...] do you attend gnosticist or Not asked shinto services? Do you [...] sign placed in AA box. Fax to [phone] when completed documented in this encounter Plan of Treatment Not on filedocumented as of this encounter Visit Diagnoses Not on filedocumented in this encounter Additional Health Concerns Assessment Noted Time PHQ-9 Depression Total Score: 6 04/12/2021 1:59 PM CDT documented as of this encounter Care Teams Water Quality Control Engineer Relationship Specialty Start Date End Date Teresita Garcia MD PCP - General Family Practice 01/22/11 [address] [place] [address] Teresita Garcia MD Assigned PCP 11/16/16 12/28/21 [address] [place] [address] documented as of this encounter
--- OUTSIDE RECORDS SUMMARY | 2022-08-27 14:09 | XMS_ITS | Encounter Summary ---
:1960 Author Organization [place] Address [address] [place] [address] Care Team Providers Name Role Phone Teresita Garcia MD Primary Care Provider Teresita Garcia MD Unavailable Reason for Visit Reason Onset Date Comments Forms 04/19/2021 Home Health Care Encounter Details Date Type Department Care Team Description 04/19/2021 Telephone [facility] Teresita Garcia MD Forms ([facility] [place] [address] [place] [address]) [address] [place] [address] [phone] Social History Tobacco Use Types Packs/Day [...] do you attend rastafarian or Not asked episcopalian services? Do you [...] 1:59 PM CDT Forms completed Fax to [phone] Telephone Encounter - Blanca Alves CMA - 04/19/2021 7:00 AM CDT 04/19/2021 [facility] forms to be sign placed in AA box. Fax to [phone] when completed documented in this encounter Plan of Treatment Not on filedocumented as of this encounter Visit Diagnoses Not on filedocumented in this encounter Additional Health Concerns Assessment Noted Time PHQ-9 Depression Total Score: 6 04/12/2021 1:59 PM CDT documented as of this encounter Care Teams Tank Car Cleaner Relationship Specialty Start Date End Date Teresita Garcia MD PCP - General Family Practice 01/22/11 [address] [place] [address] Teresita Garcia MD Assigned PCP 11/16/16 12/28/21 [address] [place] [address] documented as of this encounter
--- OUTSIDE RECORDS SUMMARY | 2022-08-27 14:09 | XMS_ITS | Encounter Summary ---
:1960 Author Organization [place] Address [address] [facility] [place] [address] Care Team Providers Name Role Phone Teresita Garcia MD Primary Care Provider Teresita Garcia MD Unavailable Encounter Details Date Type Department Care Team Description 04/30/2021 Medical Correspondence [facility] [place] Scan, ORDERS [facility] Health Info Mgmt Non-Provider HEALTH/HOSP ICE Srvcs [address] [place] [address] Social History Tobacco Use Types [...] do you attend uatsdin or Not asked latter day services? Do [...] documented as of this encounter Care Teams Shipfitter Helper Relationship Specialty Start Date End Date Teresita Garcia MD PCP - General Family Practice 01/22/11 [address] [place], [place] [phone] Teresita Garcia MD Assigned PCP 11/16/16 12/28/21 [address] [place] [address] documented as of this encounter
--- OUTSIDE RECORDS SUMMARY | 2022-08-27 14:09 | XMS_ITS | Encounter Summary ---
:1960 Author Organization [place] Address [address] [facility] [place] [address] Care Team Providers Name Role Phone Teresita [...] do you attend caodaism or Not asked voodoo services? Do you [...] documented as of this encounter Care Teams Watch Commander Relationship Specialty Start Date End Date Teresita Garcia MD PCP - General Family Practice 01/22/11 [address] [place] [address] Teresita Garcia MD Assigned PCP 11/16/16 12/28/21 [address] [place] [address] documented as of this encounter
--- OUTSIDE RECORDS SUMMARY | 2022-08-27 14:09 | XMS_ITS | Encounter Summary ---
:1960 Author Organization [place] Address [address] [facility] [place] [address] Care Team Providers Name Role Phone Teresita Garcia MD Primary Care Provider Teresita Garcia MD Unavailable Encounter Details Date Type Department Care Team Description 04/12/2021 Medical Correspondence [facility] [place] Scan, ORDERS [facility] Health Info Mgmt Non-Provider HEALTH/HOSP ICE [facility] [address] [place] [address] Social History Tobacco Use Types [...] do you attend yarsanism or Not asked hinduism services? Do you [...] documented as of this encounter Care Teams Recovery Advocate Relationship Specialty Start Date End Date Teresita Garcia MD PCP - General Family Practice 01/22/11 [address] [place], [place] [id number] Teresita Garcia MD Assigned PCP 11/16/16 12/28/21 [address] [place] [address] documented as of this encounter
--- OUTSIDE RECORDS SUMMARY | 2022-08-27 14:09 | XMS_ITS | Encounter Summary ---
:1960 Author Organization [place] Address [facility] [place] [address] Care Team Providers Name Role Phone Teresita Garcia MD Primary Care Provider Teresita Garcia MD Unavailable Reason for Visit Reason Comments Medication Refill Encounter Details Date Type Department Care Team Description 05/04/2021 Refill [facility] Roel Garcia MD Medication Refill [address] [address] [place], [place] [phone] [place] [address] [phone] Social History Tobacco Use Types Packs/Day Years [...] you attend oriental orthodox or Not asked amish services? Do you [...] 05/07/2021 12:37 PM CDT Prescription approved per [facility] Refill Protocol. Zuleyma Fierro RN on 05/07/2021 at 12:37 PM documented in this encounter Plan of Treatment Not on filedocumented as of this encounter Visit Diagnoses Diagnosis Osteoporosis, unspecified osteoporosis t ype, unspecified pathological fracture presence documented in this encounter Additional Health Concerns Assessment Noted Time PHQ-9 Depression Total Score: 6 04/12/2021 1:59 PM CDT documented as of this encounter Care Teams Lithograph Operator Relationship Specialty Start Date End Date Teresita Garcia MD PCP - General Family Practice 01/22/11 [address] [place], [place] [id number] Teresita Garcia MD Assigned PCP 11/16/16 12/28/21 [address] [place], [place] [id number] documented as of this encounter
--- OUTSIDE RECORDS SUMMARY | 2022-08-27 14:09 | XMS_ITS | Encounter Summary ---
:1960 Author Organization [place] Address [address] [facility] [place] [address] Care Team Providers Name Role Phone Teresita Garcia MD Primary Care Provider Teresita Garcia MD Unavailable Encounter Details Date Type Department Care Team Description 05/28/2021 Medical Correspondence [facility] [place] Scan, OASIS TRANSFER Health Info Mgmt [facility]-Provider [facility] [address] [place] [address] Social History Tobacco Use Types [...] do you attend scientology or Not asked yarsani services? Do you [...] documented as of this encounter Care Teams Bottom Cager Relationship Specialty Start Date End Date Teresita Garcia MD PCP - General Family Practice 01/22/11 [address] [place], [place] [phone] Teresita Garcia MD Assigned PCP 11/16/16 12/28/21 [address] [place] [address] documented as of this encounter
--- OUTSIDE RECORDS SUMMARY | 2022-08-27 14:09 | XMS_ITS | Encounter Summary ---
:1960 Author Organization [place] Address [address] [place] [address] Care Team Providers Name Role Phone Teresita Garcia MD Primary Care Provider Teresita Garcia MD Unavailable Reason for Visit Reason Comments Physical Encounter Details Date Type Department Care Team Description 06/14/2021 Office Visit [facility], Routine general medical examination at a health care facility (Primary Dx); [facility] [place] Audrey Gibbs MD Neurogenic bladder; [address] [facility] [id number] [place] [address] MS (multiple sclerosis) (H); [place], [place] Aníbal swanson lower extremity edema; [id number] Need for vaccination [phone] Social History Tobacco Use Types Packs/Day Years [...] do you attend jainism or Not asked voodoo services? Do you [...] moving from an assisted living facility in [facility] to another one in [place]. Recently discharged from the hospital for a [...] orders accordingly - Yes Labs reviewed in [facility] Reviewed and updated as needed this visit [...] Preventive Guidelines Dietary Guidelines for Americans, 2009 [employer] My[employer] ASA Prophylaxis Lung CA Screening Audrey Hickman MD [facility] documented in this encounter Plan of [...] as of this encounter Care Teams Shoe Repairer Relationship Specialty Start Date End Date Teresita Garcia MD PCP - General Family Practice 01/22/11 [address] [place] [address] Teresita Garcia MD Assigned PCP 11/16/16 12/28/21 [address] [place], [place] [id number] documented as of this encounter
--- OUTSIDE RECORDS SUMMARY | 2022-08-27 14:09 | XMS_ITS | Encounter Summary ---
:1960 Author Organization [place] Address [address] [facility] [place] [address] Care Team Providers Name Role Phone Teresita Garcia MD Primary Care Provider Teresita Garcia MD Unavailable Reason for Visit Reason Comments Hospital F/U sepsis, UTI Encounter Details Date Type Department Care Team Description 04/12/2021 Virtual Visit [facility] Teresita Garcia MD Sepsis secondary to UTI (H) (Primary Dx) ; Clinic [place] [id number] [place] [address] Lab test positive for detection of COVID -[address] [place] [address] [phone] Social History Tobacco Use Types Packs/Day [...] do you attend caodaism or Not asked hoahaoism services? Do you [...] would you like to be contacted at? [phone] How would you like to obtain your [...] up in 6 months. Teresita Garcia MD [facility] Subjective Dejuan is a 60 year old who presents for the following health issues HPI Hospital Follow-up Visit: Hospital/Shelter/IP Rehab Facility: [facility] Date of Admission: 04/04/21 Date of Discharge: [...] documented as of this encounter Care Teams Beverage Steward Relationship Specialty Start Date End Date Teresita Garcia MD PCP - General Family Practice 01/22/11 [address] [place] [address] Teresita Garcia MD Assigned PCP 11/16/16 12/28/21 [address] [place] [address] documented as of this encounter
--- OUTSIDE RECORDS SUMMARY | 2022-08-27 14:09 | XMS_ITS | Encounter Summary ---
:1960 Author Organization [place] Address [address] [place] [address] Care Team Providers Name Role Phone Teresita Garcia MD Primary Care Provider Teresita Garcia MD Unavailable Reason for Visit Reason Onset Date Comments Home Care/Hospice 04/22/2021 OT Encounter Details Date Type Department Care Team Description 04/22/2021 Telephone [facility] Teresita Garcia MD Home Care/Hospice (OT) Clinic [address] [phone] Social History Tobacco Use Types Packs/Day [...] do you attend jewish or Not asked pentecostalism services? Do you [...] CDT Homecare Orders Requested: Zoie at from [facility] called to request orders for [...] documented as of this encounter Care Teams Warpman Relationship Specialty Start Date End Date Teresita Garcia MD PCP - General Family Practice 01/22/11 [address] [place] [address] Teresita Garcia MD Assigned PCP 11/16/16 12/28/21 [address] [place] [address] documented as of this encounter
--- OUTSIDE RECORDS SUMMARY | 2022-08-27 14:09 | XMS_ITS | Encounter Summary ---
:1960 Author Organization [place] Address [address] [place] [address] Care Team Providers Name Role Phone Teresita Garcia MD Primary Care Provider Teresita Garcia MD Unavailable Reason for Visit Reason Onset Date Comments Forms 05/31/2021 [facility] o f care Encounter Details Date Type Department Care Team Description 05/31/2021 Telephone [facility] Teresita Garcia MD Forms ([address]) [address] [place] [phone] Social History Tobacco Use Types Packs/Day [...] do you attend orthodoxy or Not asked alevism services? Do you [...] AM CDT Forms completed and faxed to [phone] Telephone Encounter - Blanca Alves CMA - 05/31/2021 9:03 AM CDT Forms from [facility] of care needing to be signed placed in Dr Garcia box. Please fax to [phone] when completed documented in this encounter Plan of Treatment Not on filedocumented as of this encounter Visit Diagnoses Not on filedocumented in this encounter Additional Health Concerns Assessment Noted Time PHQ-9 Depression Total Score: 6 04/12/2021 1:59 PM CDT documented as of this encounter Care Teams Promotional Representative Relationship Specialty Start Date End Date Teresita Garcia MD PCP - General Family Practice 01/22/11 [address] [place] [address] Teresita Garcia MD Assigned PCP 11/16/16 12/28/21 [address] [place] [address] documented as of this encounter
--- OUTSIDE RECORDS SUMMARY | 2022-08-27 14:09 | XMS_ITS | Encounter Summary ---
:1960 Author Organization [place] Address [address] [facility] [place] [address] Care Team Providers Name Role Phone Teresita Garcia MD Primary Care Provider Teresita Garcia MD Unavailable Reason for Visit Reason Onset Date Comments Forms 08/14/2021 Physician Orders Encounter Details Date Type Department Care Team Description 08/14/2021 Telephone [facility] Teresita Garcia MD Forms (Physician [facility] [place] [id number] [place] [address] Orders) [address] [place], [place] [phone] Social History Tobacco Use Types Packs/Day [...] do you attend alevism or Not asked orthodoxy services? Do you [...] Form completed and faxed, 08/14/2021 Jackie Brito/AWILDA CAL VOUCHER CLERK Telephone Encounter - Rosy Brito - 08/14/2021 10:32 AM CST Received 3 page fax for Physician Orders for Dr Garcia to complete. Form in the in-basket at AA's desk. CAL VOUCHER CLERK documented in this encounter Plan of Treatment Not on filedocumented as of this encounter Visit Diagnoses Not on filedocumented in this encounter Additional Health Concerns Assessment Noted Time PHQ-9 Depression Total Score: 6 04/12/2021 1:59 PM CDT documented as of this encounter Care Teams Bowling Alley Attendant Relationship Specialty Start Date End Date Teresita Garcia MD PCP - General Family Practice 01/22/11 [address] [place] [address] Teresita Garcia MD Assigned PCP 11/16/16 12/28/21 [address] [place] [address] documented as of this encounter
--- OUTSIDE RECORDS SUMMARY | 2022-08-27 14:09 | XMS_ITS | Encounter Summary ---
:1960 Author Organization [place] Address [address] [facility] [place] [address] Care Team Providers Name Role Phone Teresita Garcia MD Primary Care Provider Teresita Garcia MD Unavailable Reason for Visit Reason Onset Date Comments Orders 08/15/2021 [facility] Encounter Details Date Type Department Care Team Description 08/15/2021 Telephone [facility] Teresita Garcia MD Orders ([facility] [place] [address] [place] [address]) [address] [place] [phone] Social History Tobacco Use Types [...] do you attend pentecostalism or Not asked samaritan services? Do you [...] Form completed and faxed, 08/15/2021 Jackie Brito/TC ER TENDER Telephone Encounter - Rosy Brito - 08/15/2021 1:45 PM CST Form placed at AA's desk, 08/15/2021 Jackie Brito/TC ER TENDER Telephone Encounter - Malka Pang - 08/15/2021 12:59 PM CST Reason for Call: Request for an order or referral: Order or referral being requested: Signature needed Date needed: as soon as possible Has the patient been seen by the PCP for this problem? YES Additional comments: Signature needed for other orders being faxed by [facility] for ongoing SN visit for ongoing care and [facility] visit for shower visits . Phone number Patient can be reached at: Other phone number: juanita [phone] Best Time: any Can we leave a detailed message on this number? YES Call taken on 08/15/2021 at 1:00 PM by Malka Pang Sig needed for other order ok for ongoing SN visit for ongoing care and [facility] visit for shower visits . [phone] ER TENDER documented in this encounter Plan of Treatment Not on filedocumented as of this encounter Visit Diagnoses Not on filedocumented in this encounter Additional Health Concerns Assessment Noted Time PHQ-9 Depression Total Score: 6 04/12/2021 1:59 PM CDT documented as of this encounter Care Teams Lay Out And Detail Drafter Relationship Specialty Start Date End Date Teresita Garcia MD PCP - General Family Practice 01/22/11 [address] [place] [address] Teresita Garcia MD Assigned PCP 11/16/16 12/28/21 [address] [place] [address] documented as of this encounter
--- OUTSIDE RECORDS SUMMARY | 2022-08-27 14:10 | XMS_ITS | Encounter Summary ---
:1960 Author Organization [place] Address [address] [facility] [place] [address] Care Team Providers Name Role Phone Teresita Garcia MD Primary Care Provider Teresita Garcia MD Unavailable Dolores Caputo DISTRIBUTION COLLECTION OPERATOR Unavailable Letha Vasquez MA Unavailable Audrey Hickman MD Unavailable [phone] Reason for Visit Reason Comments Medication Refill Encounter Details Date Type Department Care Team Description 08/23/2020 Refill [facility] Roel Garcia MD Medication Refill [phone] [place] [address] [place] [address] [phone] Social History Tobacco Use Types Packs/Day Years [...] do you attend christian or Not asked congregational services? Do you [...] Kirstin Mejia, RN - 08/24/2020 10:49 AM SENSITIZER Patient has refills remaining with requesting pharmacy. Kirstin Vail - Registered Nurse [facility] ITIZER documented in this encounter Plan of Treatment Not on filedocumented as of this encounter Visit Diagnoses Diagnosis Osteoporosis, unspecified osteoporosis t ype, unspecified pathological fracture presence documented in this encounter Additional Health Concerns Assessment Noted Time PHQ-9 Depression Total Score: 8 06/26/2020 12:57 PM CD T documented as of this encounter Care Teams Electrical Engineer Mep Relationship Specialty Start Date End Date Teresita Garcia MD PCP - General Family Practice 01/22/11 [address] [place] [address] Teresita Garcia MD Assigned PCP 11/16/16 12/28/21 [address] [place] [address] Dolores Caputo, DISTRIBUTION COLLECTION OPERATOR Lead Food Assembler [facility] Primary Care - CC 06/27/20 09/03/20 Letha Vasquez, Community Health Worker 07/05/20 09/03/20 MA Audrey Hickman Assigned PCP 12/29/21 MD Bernie [address] [place], [place] [phone] documented as of this encounter
--- OUTSIDE RECORDS SUMMARY | 2022-08-27 14:10 | XMS_ITS | Encounter Summary ---
:1960 Author Organization [place] Address [address] [place] [address] Care Team Providers Name Role Phone Teresita Garcia MD Primary Care Provider Teresita Garcia MD Unavailable Reason for Visit Reason Onset Date Comments Forms 09/12/2020 Physician Order Encounter Details Date Type Department Care Team Description 09/12/2020 Telephone [facility] Teresita Garcia MD Forms (Physician Order) Clinic [id number] [place] [phone] Social History Tobacco Use Types Packs/Day [...] do you attend adventist or Not asked latter-day services? Do you [...] Form completed and faxed, 09/12/2020 Jackie Brito/AWILDA SCIENCE TECHNICIAN Telephone Encounter - Rosy Brito - 09/12/2020 9:16 AM CST Received 2 page fax for Physician Order for Dr Garcia to complete. Form in the in- basket at [facility] in AA's folder. SCIENCE TECHNICIAN documented in this encounter Plan of Treatment Not on filedocumented as of this encounter Visit Diagnoses Not on filedocumented in this encounter Additional Health Concerns Assessment Noted Time PHQ-9 Depression Total Score: 8 06/26/2020 12:57 PM CD T documented as of this encounter Care Teams Flying I Instructor Relationship Specialty Start Date End Date Teresita Garcia MD PCP - General Family Practice 01/22/11 [address] [place] [address] Teresita Garcia MD Assigned PCP 11/16/16 12/28/21 [address] [place] [address] documented as of this encounter
--- OUTSIDE RECORDS SUMMARY | 2022-08-27 14:10 | XMS_ITS | Encounter Summary ---
:1960 Author Organization [place] Address [address] [facility] [place] [place] [address] Care Team Providers Name Role Phone Teresita Garcia MD Primary Care Provider Teresita Garcia MD Unavailable Encounter Details Date Type Department Care Team Description 03/15/2021 Medical Correspondence Health [place] Scan, HOME HEALTH PLAN OF Health Info Mgmt Non-Provider CARE [facility] HEALTH/HOSPICE [address] [place] [address] Social History Tobacco Use Types [...] do you attend temple or Not asked roman catholic services? Do [...] documented as of this encounter Care Teams Telegraphic Typewriter Installer Relationship Specialty Start Date End Date Teresita Garcia MD PCP - General Family Practice 01/22/11 [address] [place] [address] Teresita Garcia MD Assigned PCP 11/16/16 12/28/21 [address] [place] [address] documented as of this encounter
--- OUTSIDE RECORDS SUMMARY | 2022-08-27 14:10 | XMS_ITS | Encounter Summary ---
:1960 Author Organization [place] Address [facility] [place] [address] Care Team Providers Name Role Phone Teresita Garcia MD Primary Care Provider Teresita Garcia MD Unavailable Reason for Visit Reason Onset Date Comments Forms 11/21/2020 Plan of Care Encounter Details Date Type Department Care Team Description 11/21/2020 Telephone [facility] Roel Garcia MD Forms (Plan of Care) [phone] [place] [phone] Social History Tobacco Use Types Packs/Day Years [...] do you attend mandaen or Not asked pentecostal services? Do you [...] CST Form completed and faxed, 11/27/2020 Jackie Birto/AWILDA R PURIFICATION CHEMIST Telephone Encounter - Rosy Brito - 11/21/2020 11:56 AM CST Received 6 page fax for Plan of Care for Dr Garcia to complete. Form in the in- basket at [facility] in 's folder. R PURIFICATION CHEMIST documented in this encounter Plan of Treatment Not on filedocumented as of this encounter Visit Diagnoses Not on filedocumented in this encounter Additional Health Concerns Assessment Noted Time PHQ-9 Depression Total Score: 8 06/26/2020 12:57 PM CD T documented as of this encounter Care Teams Internet Assessor Relationship Specialty Start Date End Date Teresita Garcia MD PCP - General Family Practice 01/22/11 [address] [place] [address] Teresita Garcia MD Assigned PCP 11/16/16 12/28/21 [address] [place] [address] documented as of this encounter
--- OUTSIDE RECORDS SUMMARY | 2022-08-27 14:10 | XMS_ITS | Encounter Summary ---
:1960 Author Organization [place] Address [address] [facility] [place] [address] Care Team Providers Name Role Phone Teresita Garcia MD Primary Care Provider Teresita Garcia MD Unavailable Reason for Visit Reason Onset Date Comments Home Care/Hospice 11/13/2020 orders Encounter Details Date Type Department Care Team Description 11/13/2020 Telephone [facility] Teresita Garcia MD Home Care/Hospice Clinic [place] [address] [place] [address] (orders) [address] [place] [phone] Social History Tobacco Use Types [...] do you attend worship or Not asked buddhism services? Do you [...] PM CST Signed form faxed. Malena Hankins Paper Control Clerk GER OF REGULATORY AFFAIRS Telephone Encounter - Bella Harden - 11/14/2020 9:01 AM CST Received 1 page fax from [facility] for orders. Placed in AA's folder. Please fax completed form to [phone]. Bella Harden Paper Control Clerk GER OF REGULATORY AFFAIRS Telephone Encounter - Karen Covarrubias RN - 11/13/2020 1:24 PM CST Homecare Orders Requested: Jacqueline at from [facility] called to request orders for the following Services: Home Health Aide for:2 times a week with shower and usp for catheter changes Homecare agency to fax orders over for review and signature of PCP, verbal orders provided, FYI to AA Karen Covarrubias RN, BSN Message handled by CLINIC NURSE. GER OF REGULATORY AFFAIRS documented in this encounter Plan of Treatment Not on filedocumented as of this encounter Visit Diagnoses Not on filedocumented in this encounter Additional Health Concerns Assessment Noted Time PHQ-9 Depression Total Score: 8 06/26/2020 12:57 PM CD T documented as of this encounter Care Teams Forge Heater Relationship Specialty Start Date End Date Teresita Garcia MD PCP - General Family Practice 01/22/11 [address] [place] [address] Teresita Garcia MD Assigned PCP 11/16/16 12/28/21 [address] [place] [address] documented as of this encounter
--- OUTSIDE RECORDS SUMMARY | 2022-08-27 14:10 | XMS_ITS | Encounter Summary ---
:1960 Author Organization [place] Address [facility] [place] [address] Care Team Providers Name Role Phone Teresita Garcia MD Primary Care Provider Teresita Garcia MD Unavailable Reason for Visit Reason Onset Date Comments Forms 03/20/2021 Orders Encounter Details Date Type Department Care Team Description 03/20/2021 Telephone [facility] Roel Garcia MD Forms (Orders) [address] [address] [place] [address] [place] [address] [phone] Social History Tobacco Use Types Packs/Day Years [...] do you attend sikhism or Not asked christian services? Do you [...] documented as of this encounter Care Teams Interior Wall Assembler Relationship Specialty Start Date End Date Teresita Garcia MD PCP - General Family Practice 01/22/11 [address] [place], [place] [id number] Teresita Garcia MD Assigned PCP 11/16/16 12/28/21 [address] [place] [address] documented as of this encounter
--- OUTSIDE RECORDS SUMMARY | 2022-08-27 14:10 | XMS_ITS | Encounter Summary ---
:1960 Author Organization [place] Address [address] [facility] [place] [address] Care Team Providers Name Role Phone Teresita Garcia MD Primary Care Provider Teresita Garcia MD Unavailable Encounter Details Date Type Department Care Team Description 11/27/[address] [facility] Scan, PLAN OF CARE [facility] Health Info [facility] Non-Provider [facility] [address] [place] [phone] Social History Tobacco Use Types Packs/Day [...] do you attend islam or Not asked buddhism services? Do you [...] documented as of this encounter Care Teams Computational Theory Scientist Relationship Specialty Start Date End Date Teresita Garcia MD PCP - General Family Practice 01/22/11 [address] [place], [place] [phone] Teresita Garcia MD Assigned PCP 11/16/16 12/28/21 [address] [place], [place] [id number] documented as of this encounter
--- OUTSIDE RECORDS SUMMARY | 2022-08-27 14:10 | XMS_ITS | Encounter Summary ---
:1960 Author Organization [place] Address [address] [place] [address] Care Team Providers Name Role Phone Teresita Garcia MD Primary Care Provider Teresita Garcia MD Unavailable Reason for Visit Reason Onset Date Comments Forms 11/21/2020 Physician Order Encounter Details Date Type Department Care Team Description 11/21/2020 Telephone [facility] Teresita Garcia MD Forms (Physician Order) Clinic [phone] [place] [address] [phone] Social History Tobacco Use Types Packs/Day [...] do you attend pentecostalism or Not asked mormonism services? Do you [...] Form completed and faxed, 11/27/2020 Jackie Brito/AWILDA NKING MACHINE OPERATOR Telephone Encounter - Rosy Brito - 11/21/2020 11:58 AM CST Received 2 page fax for Physician Order for Dr Garcia to complete. Form in the in- basket at [facility] in AA's folder. NKING MACHINE OPERATOR documented in this encounter Plan of Treatment Not on filedocumented as of this encounter Visit Diagnoses Not on filedocumented in this encounter Additional Health Concerns Assessment Noted Time PHQ-9 Depression Total Score: 8 06/26/2020 12:57 PM CD T documented as of this encounter Care Teams Guest Service Team Leader Relationship Specialty Start Date End Date Teresita Garcia MD PCP - General Family Practice 01/22/11 [address] [place] [address] Teresita Garcia MD Assigned PCP 11/16/16 12/28/21 [address] [place] [address] documented as of this encounter
--- OUTSIDE RECORDS SUMMARY | 2022-08-27 14:10 | XMS_ITS | Encounter Summary ---
:1960 Author Organization [place] Address [address] [place] [address] Care Team Providers Name Role Phone Teresita Garcia MD Primary Care Provider Teresita Garcia MD Unavailable Reason for Visit Reason Onset Date Comments Pt. Information/instruction 02/20/2021 henry hamilton Encounter Details Date Type Department Care Team Description 02/20/2021 Telephone [facility] Teresita Garcia MD Pt. Clinic [address] Information/instruction [address] [place], [place] (new amdission) [place], [place] [phone] Social History Tobacco Use Types Packs/Day [...] do you attend holiness or Not asked protestant services? Do you [...] Covarrubias RN - 02/20/2021 1:53 PM CDT [facility], [place], , need stat med list and last appointment Faxed [phone], pt will be new admit, will fax [...] as of this encounter Care Teams Production Sorter Relationship Specialty Start Date End Date Teresita Garcia MD PCP - General Family Practice 01/22/11 [address] [place] [address] Teresita Garcia MD Assigned PCP 11/16/16 12/28/21 [address] [place] [address] documented as of this encounter
--- OUTSIDE RECORDS SUMMARY | 2022-08-27 14:10 | XMS_ITS | Encounter Summary ---
:1960 Author Organization [place] Address [address] [facility] [place] [address] Care Team Providers Name Role Phone Teresita Garcia MD Primary Care Provider Teresita Garcia MD Unavailable Dolores Caputo TRAVELIFT OPERATOR Unavailable Letha Vasquez MA Unavailable Reason for Visit Reason Onset Date Comments Orders 07/27/2020 [facility] Encounter Details Date Type Department Care Team Description 07/27/[address] [facility] Teresita Garcia MD Orders ([facility] [address]) [address] [place] [address] [phone] Social History Tobacco Use Types Packs/Day [...] do you attend sikh or Not asked scientologist services? Do you [...] PM CST Signed orders faxed. Malena Hankins Oilseed Meat Presser CAL COST CONSULTANT Telephone Encounter - Malena Hankins - 07/27/2020 9:13 AM CDT Recd 6 page fax from [employer]. Please sign orders and fax to [phone]. Form in AA folder at [place]. Malena Hankins Oilseed Meat Presser documented in this encounter Plan of Treatment Not on filedocumented as of this encounter Visit Diagnoses Not on filedocumented in this encounter Additional Health Concerns Assessment Noted Time PHQ-9 Depression Total Score: 8 06/26/2020 12:57 PM CD T documented as of this encounter Care Teams Vp Analytics Relationship Specialty Start Date End Date Teresita Garcia MD PCP - General Family Practice 01/22/11 [address] [place] [address] Teresita Garcia MD Assigned PCP 11/16/16 12/28/21 [address] [place] [address] Dolores Caputo, PATEL Lead Solutions Sales Executive Primary Care - CC 06/27/20 09/03/20 Letha Vasquez, Community Health Worker 07/05/20 09/03/20 [place] documented as of this encounter
--- OUTSIDE RECORDS SUMMARY | 2022-08-27 14:10 | XMS_ITS | Encounter Summary ---
:1960 Author Organization [place] Address [address] [facility] [place] [address] Care Team Providers Name Role Phone Teresita Garcia MD Primary Care Provider Teresiat Garcia MD Unavailable Reason for Referral Care Coordination (Routine) - Closed Specialty Diagnoses / Procedures Referred By Contact Refer red To Contact Diagnoses Counseling and coordination of care Care Coordination [address] [place], [place] [phone] Referral ID Status Reason Start Date Expiration Date Visits Requ ested Visits Authorized [id number] Closed 04/09/2021 04/09/2022 1 1 Encounter Details Date Type Department Care Team Description 04/09/2021 Orders Only [facility] Care Angle Viera, Counseling and Coordination RN coordination of care [address] [place] [address] (Primary Dx) [place], [place] (Work) [phone] Social History Tobacco Use [...] do you attend nondenominational or Not asked rastafari services? Do you [...] documented as of this encounter Care Teams Tie Worker Relationship Specialty Start Date End Date Teresita aGrcia MD PCP - General Family Practice 01/22/11 [address] [place] [address] Teresita Garcia MD Assigned PCP 11/16/16 12/28/21 [address] [place] [address] documented as of this encounter
--- OUTSIDE RECORDS SUMMARY | 2022-08-27 14:10 | XMS_ITS | Encounter Summary ---
:1960 Author Organization [place] Address [address] [facility] [place] [address] Care Team Providers Name Role Phone Teresita Garcia MD Primary Care Provider Teresita Garcia MD Unavailable Dolores Caputo PATHOLOGY TECHNOLOGIST Unavailable Letha Vasquez MA Unavailable Encounter Details Date Type Department Care Team Description 07/30/[address] [facility] Scan, PLAN OF CARE ApptheGame [facility] Non-Provider HEALTH HOME HEALTH [facility] [address] [place] [phone] Social History Tobacco Use Types Packs/Day [...] do you attend yarsanism or Not asked bahai services? Do you [...] documented as of this encounter Care Teams Rope Tier Relationship Specialty Start Date End Date Teresita Garcia MD PCP - General Family Practice 01/22/11 [address] [place], [place] [phone] Teresita Garcia MD Assigned PCP 11/16/16 12/28/21 [address] [place], [place] [phone] Dolores Caputo, PATHOLOGY TECHNOLOGIST Lead Contract Driver Primary Care - CC 06/27/20 09/03/20 Letha Vasquez, Community Health Worker 07/05/20 09/03/20 [place] documented as of this encounter
--- OUTSIDE RECORDS SUMMARY | 2022-08-27 14:10 | XMS_ITS | Encounter Summary ---
:1960 Author Organization [place] Address [address] [facility] [place] [address] Care Team Providers Name Role Phone Teresita Garcia MD Primary Care Provider Teresita Garcia MD Unavailable Reason for Visit Reason Comments Patient/info Update SB # Encounter Details Date Type Department Care Team Description 12/21/2020 Documentation Only [facility] Della Choi ent/info Update Clinic [place] JAN Rios (SB # ) [address] [phone] [place], [place] (Work) [phone] Social History Tobacco Use [...] do you attend anabaptist or Not asked jewish services? Do you [...] Choi Registered Nurse, PAL (Patient Advocate Liason) [facility] [phone] documented in this encounter Plan of Treatment Not on filedocumented as of this encounter Visit Diagnoses Not on filedocumented in this encounter Additional Health Concerns Assessment Noted Time PHQ-9 Depression Total Score: 8 06/26/2020 12:57 PM CD T documented as of this encounter Care Teams Production Floater Relationship Specialty Start Date End Date Teresita Garcia MD PCP - General Family Practice 01/22/11 [address] [place], [place] [phone] Teresita Garcia MD Assigned PCP 11/16/16 12/28/21 [address] [place], [place] [phone] documented as of this encounter
--- OUTSIDE RECORDS SUMMARY | 2022-08-27 14:10 | XMS_ITS | Encounter Summary ---
:1960 Author Organization [place] Address [facility] [address] Care Team Providers Name Role Phone Teresita Garcia MD Primary Care Provider Teresita Garcia MD Unavailable Reason for Visit Reason Onset Date Comments Forms 01/23/2021 Plan of Care Encounter Details Date Type Department Care Team Description 01/23/2021 Telephone [facility] Roel Garcia MD Forms (Plan of Care) [phone] [place] [phone] Social History Tobacco Use Types Packs/Day Years [...] do you attend rastafari or Not asked adventism services? Do you [...] complete. Form in the in- basket at [facility] in 's folder. documented in this encounter Plan of Treatment Not on filedocumented as of this encounter Visit Diagnoses Not on filedocumented in this encounter Additional Health Concerns Assessment Noted Time PHQ-9 Depression Total Score: 8 06/26/2020 12:57 PM CD T documented as of this encounter Care Teams Art Glass Designer Relationship Specialty Start Date End Date Teresita Garcia MD PCP - General Family Practice 01/22/11 [address] [place] [address] Teresita Garcia MD Assigned PCP 11/16/16 12/28/21 [address] [place] [address] documented as of this encounter
--- OUTSIDE RECORDS SUMMARY | 2022-08-27 14:10 | XMS_ITS | Encounter Summary ---
:1960 Author Organization [place] Address [address] [place] [address] Care Team Providers Name Role Phone Teresita Garcia MD Primary Care Provider Teresita Garcia MD Unavailable Reason for Visit Reason Onset Date Comments Forms 01/23/2021 VETERINARY MEDICAL OFFICER Assessment and/o r Follow up Encounter Details Date Type Department Care Team Description 01/23/2021 Telephone [facility] Teresita Garcia MD Forms (VETERINARY MEDICAL OFFICER Assessment Clinic [address] and/or Follow up) [address] [place] [address] [phone] Social History Tobacco Use Types Packs/Day [...] do you attend amish or Not asked yarsani services? Do you [...] AM CDT Received 2 page fax for VETERINARY MEDICAL OFFICER Assessment and/or Follow up for Dr Garcia to complete. Form in the in-basket at [facility] in 's folder. documented in this encounter Plan of Treatment Not on filedocumented as of this encounter Visit Diagnoses Not on filedocumented in this encounter Additional Health Concerns Assessment Noted Time PHQ-9 Depression Total Score: 8 06/26/2020 12:57 PM CD T documented as of this encounter Care Teams Signals Intelligence Analysis Manager Relationship Specialty Start Date End Date Teresita Garcia MD PCP - General Family Practice 01/22/11 [address] [place] [address] Teresita Garcia MD Assigned PCP 11/16/16 12/28/21 [address] [place] [address] documented as of this encounter
--- OUTSIDE RECORDS SUMMARY | 2022-08-27 14:10 | XMS_ITS | Encounter Summary ---
:1960 Author Organization [place] Address [facility] [place] [address] Care Team Providers Name Role Phone Teresita Garcia MD Primary Care Provider Teresita Garcia MD Unavailable Reason for Visit Reason Comments Medication Refill Encounter Details Date Type Department Care Team Description 11/25/2020 Refill [facility] Roel Garcia MD Medication Refill [address] [address] [place], [place] [phone] [place] [address] [phone] Social History Tobacco Use Types Packs/Day Years [...] do you attend episcopalian or Not asked presybeterian services? Do you [...] 11/27/2020 11:54 AM CST Prescription approved per [facility] Refill Protocol. Karen Covarrubias RN, BSN Message handled by CLINIC NURSE. RVISOR AGRICULTURAL EDUCATION documented in this encounter Plan of Treatment Not on filedocumented as of this encounter Visit Diagnoses Diagnosis Osteoporosis, unspecified osteoporosis t ype, unspecified pathological fracture presence documented in this encounter Additional Health Concerns Assessment Noted Time PHQ-9 Depression Total Score: 8 06/26/2020 12:57 PM CD T documented as of this encounter Care Teams Negative Turner Apprentice Relationship Specialty Start Date End Date Teresita Garcia MD PCP - General Family Practice 01/22/11 [address] [place], [place] [phone] Teresita Garcia MD Assigned PCP 11/16/16 12/28/21 [address] [place] [address] documented as of this encounter
--- OUTSIDE RECORDS SUMMARY | 2022-08-27 14:10 | XMS_ITS | Encounter Summary ---
:1960 Author Organization [place] Address [address] [facility] [place] [address] Care Team Providers Name Role Phone Teresita Garcia MD Primary Care Provider Teresita Garcia MD Unavailable Encounter Details Date Type Department Care Team Description 04/03/[address] [facility] Scan, PLAN OF CARE Indi-e Publishing Info [facility] Non-Provider HEALTH HOME HEALTH Srv[facility] [address] [place] [address] Social History Tobacco Use Types [...] do you attend bahai or Not asked restorationism services? Do you [...] documented as of this encounter Care Teams Dynamic Balancer Relationship Specialty Start Date End Date Teresita Garcia MD PCP - General Family Practice 01/22/11 [address] [place], [place] [phone] Teresita Garcia MD Assigned PCP 11/16/16 12/28/21 [address] [place] [address] documented as of this encounter
--- OUTSIDE RECORDS SUMMARY | 2022-08-27 14:10 | XMS_ITS | Encounter Summary ---
:1960 Author Organization [place] Address [address] [place] [address] Care Team Providers Name Role Phone Teresita Garcia MD Primary Care Provider Teresita Garcia MD Unavailable Reason for Visit Reason Onset Date Comments Home Care/Hospice 04/10/2021 orders Encounter Details Date Type Department Care Team Description 04/10/2021 Telephone [facility] Teresita Garcia MD Home Care/Hospice Clinic [place] [phone] [place] [address] (orders) [address] [place] [phone] Social History Tobacco Use Types [...] do you attend druze or Not asked protestant services? Do you [...] Homecare Orders Requested: Renea Wills at from [facility] called to request orders for the following Services: Alf for:2 times a week x 3 weeks [...] as of this encounter Care Teams Certified Phlebotomy Technician Relationship Specialty Start Date End Date Teresita Garcia MD PCP - General Family Practice 01/22/11 [address] [place] [address] Teresita Garcia MD Assigned PCP 11/16/16 12/28/21 [address] [place] [address] documented as of this encounter
--- OUTSIDE RECORDS SUMMARY | 2022-08-27 14:10 | XMS_ITS | Encounter Summary ---
:1960 Author Organization [place] Address [facility] [place] [address] Care Team Providers Name Role Phone Teresita Garcia MD Primary Care Provider Teresita Garcia MD Unavailable Reason for Visit Reason Onset Date Comments Forms 10/01/2020 Plan of Care Encounter Details Date Type Department Care Team Description 10/01/2020 Telephone [facility] Roel Garcia MD Forms (Plan of Care) [phone] [place] [phone] Social History Tobacco Use Types Packs/Day Years [...] do you attend mandaeism or Not asked jew services? Do you [...] Form completed and faxed, 10/02/2020 Jackie Brito/AWILDA CLINICAL RESEARCH Telephone Encounter - Rosy Brito - 10/01/2020 9:58 AM CST Received 6 page fax for Plan of Care for Dr Garcia to complete. Form in the in- basket at [facility] in 's folder. CLINICAL RESEARCH documented in this encounter Plan of Treatment Not on filedocumented as of this encounter Visit Diagnoses Not on filedocumented in this encounter Additional Health Concerns Assessment Noted Time PHQ-9 Depression Total Score: 8 06/26/2020 12:57 PM CD T documented as of this encounter Care Teams Proteomics Scientist Relationship Specialty Start Date End Date Teresita Garcia MD PCP - General Family Practice 01/22/11 [address] [place] [address] Teresita Garcia MD Assigned PCP 11/16/16 12/28/21 [address] [place] [address] documented as of this encounter
--- OUTSIDE RECORDS SUMMARY | 2022-08-27 14:10 | XMS_ITS | Encounter Summary ---
:1960 Author Organization [place] Address [address] [facility] [place] [address] Care Team Providers Name Role Phone Teresita Garcia MD Primary Care Provider Teresita Garcia MD Unavailable Reason for Visit Reason Onset Date Comments Forms 10/01/2020 Physician Orders Encounter Details Date Type Department Care Team Description 10/01/2020 Telephone [facility] Teresita Garcia MD Forms (Physician Clinic [facility] [address] [place] [address] Orders) [address] [place], [place] [phone] Social History Tobacco Use Types Packs/Day [...] do you attend methodist or Not asked spiritism services? Do you [...] Form completed and faxed, 10/02/2020 Jackie Brito/AWILDA ICAL RESEARCH ADMINISTRATOR Telephone Encounter - Rosy Brito - 10/01/2020 10:02 AM CST Received 2 page fax for Physician Orders for Dr Garcia to complete. Form in the in-basket at [facility] in 's folder. ICAL RESEARCH ADMINISTRATOR documented in this encounter Plan of Treatment Not on filedocumented as of this encounter Visit Diagnoses Not on filedocumented in this encounter Additional Health Concerns Assessment Noted Time PHQ-9 Depression Total Score: 8 06/26/2020 12:57 PM CD T documented as of this encounter Care Teams Zone Manager Relationship Specialty Start Date End Date Teresita Garcia MD PCP - General Family Practice 01/22/11 [address] [place] [address] Teresita Garcia MD Assigned PCP 11/16/16 12/28/21 [address] [place] [address] documented as of this encounter
--- OUTSIDE RECORDS SUMMARY | 2022-08-27 14:10 | XMS_ITS | Encounter Summary ---
:1960 Author Organization [place] Address [address] [facility] [place] [address] Care Team Providers Name Role Phone Teresita Garcia MD Primary Care Provider Teresita Garcia MD Unavailable Encounter Details Date Type Department Care Team Description 01/22/2021 Medical Correspondence [facility] [place] Scan, HOME CARE RECORD Health Info Mgmt Non-Provider [facility] Sr[facility] HEALTH/HOSPICE [address] [place] [phone] Social History Tobacco Use Types Packs/Day [...] do you attend taoist or Not asked judaism services? Do you [...] documented as of this encounter Care Teams Head Concierge Relationship Specialty Start Date End Date Teresita Garcia MD PCP - General Family Practice 01/22/11 [address] [place], [place] [phone] eTresita Garcia MD Assigned PCP 11/16/16 12/28/21 [address] [place], [place] [phone] documented as of this encounter
--- OUTSIDE RECORDS SUMMARY | 2022-08-27 14:10 | XMS_ITS | Encounter Summary ---
:1960 Author Organization [place] Address [address] [facility] [place] [address] Care Team Providers Name Role Phone Teresita Garcia MD Primary Care Provider Teresita Garcia MD Unavailable Reason for Visit Reason Onset Date Comments Orders 01/11/2021 [facility] Encounter Details Date Type Department Care Team Description [facility] [address] [place] [address] Social History Tobacco Use Types [...] do you attend cheondoism or Not asked synagogue services? Do you [...] come out to see pt. [facility] [phone] Joselin Gusman RN, BSN, PAL (Patient Advocate Liaison) [facility] [phone]\ documented in this encounter Plan of Treatment Not on filedocumented as of this encounter Visit Diagnoses Not on filedocumented in this encounter Additional Health Concerns Assessment Noted Time PHQ-9 Depression Total Score: 8 06/26/2020 12:57 PM CD T documented as of this encounter Care Teams Precision Market Insights Relationship Specialty Start Date End Date Teresita Garcia MD PCP - General Family Practice 01/22/11 [address] [place], [place] [phone] Teresita Garcia MD Assigned PCP 11/16/16 12/28/21 [address] [place], [place] [phone] documented as of this encounter
--- OUTSIDE RECORDS SUMMARY | 2022-08-27 14:11 | XMS_ITS | Encounter Summary ---
:1960 Author Organization [place] Address [address] [place] [address]. [place] [address] Care Team Providers Name Role Phone Teresita Garcia MD Primary Care Provider Teresita Garcia MD Unavailable Encounter Details Date Type Department Care Team Description 05/19/2020 Medical Correspondence [facility] Scan, PLAN OF CARE Health Info Mgmt Non-Provider 05/19/20 - 1 Srs [facility] [address] [place] [address]/[place] [address] Social History Tobacco Use Types [...] do you attend mu-ism or Not asked sikhism services? Do you [...] Depression Total Score: 8 12/02/2019 2:02 PM RADIAGRAPH OPERATOR documented as of this encounter Care Teams Percussion Instructor Relationship Specialty Start Date End Date Teresita Garcia MD PCP - General Family Practice 01/22/11 [address] [place], [place] [phone] Teresita Garcia MD Assigned PCP 11/16/16 12/28/21 [address] [place] [address] documented as of this encounter
--- OUTSIDE RECORDS SUMMARY | 2022-08-27 14:11 | XMS_ITS | Encounter Summary ---
:1960 Author Organization [place] Address [facility] [place] [address] Care Team Providers Name Role Phone Teresita Garcia MD Primary Care Provider Teresita Garcia MD Unavailable Encounter Details Date Type Department Care Team Description 05/25/2020 Medical Correspondence [facility] Scan, PLAN OF CARE Health Info Mgmt Non-Provider 03/20/20 - [facility] HOME [address] [place] [address]/[place] [address] Social History Tobacco Use Types [...] do you attend islam or Not asked restoration services? Do you [...] Depression Total Score: 8 12/02/2019 2:02 PM CORPORATE TRUST OFFICER documented as of this encounter Care Teams Vice President Marketing & Development Relationship Specialty Start Date End Date Teresita Garcia MD PCP - General Family Practice 01/22/11 [address] [place], [place] [phone] Teresita Garcia MD Assigned PCP 11/16/16 12/28/21 [address] [place], [place] [phone] documented as of this encounter
--- OUTSIDE RECORDS SUMMARY | 2022-08-27 14:11 | XMS_ITS | Encounter Summary ---
:1960 Author Organization [place] Address [address] [facility] [place] [address] Care Team Providers Name Role Phone Teresita Garcia MD Primary Care Provider Teresita Garcia MD Unavailable Dolores Caputo REHAB AIDE Unavailable Letha Vasquez MA Unavailable Reason for Visit Reason Onset Date Comments Orders 07/27/2020 [facility] Encounter Details Date Type Department Care Team Description 07/27/2020 Telephone [facility] Teresita Garcia MD Orders ([facility] [address]) [address] [place] [address] [phone] Social History Tobacco Use Types Packs/Day [...] do you attend lutheran or Not asked baptism services? Do you [...] PM CST Signed orders faxed. Malena Hankins Die Sinking Machine Operator L CASE MANAGER Telephone Encounter - Malena Hankins - 07/27/2020 8:29 AM CDT Recd 2 page fax from [employer]. Please sign orders and fax to [phone]. Form in AA folder at [place]. Malena Hankins Die Sinking Machine Operator documented in this encounter Plan of Treatment Not on filedocumented as of this encounter Visit Diagnoses Not on filedocumented in this encounter Additional Health Concerns Assessment Noted Time PHQ-9 Depression Total Score: 8 06/26/2020 12:57 PM CD T documented as of this encounter Care Teams Greige Goods Examiner Relationship Specialty Start Date End Date Teresita Garcia MD PCP - General Family Practice 01/22/11 [address] [place] [address] Teresita Garcia MD Assigned PCP 11/16/16 12/28/21 [address] [place] [address] Dolores Caputo, PATEL Lead Product Developer Primary Care - CC 06/27/20 09/03/20 Letha Vasquez, Community Health Worker 07/05/20 09/03/20 MA documented as of this encounter
--- OUTSIDE RECORDS SUMMARY | 2022-08-27 14:11 | XMS_ITS | Encounter Summary ---
:1960 Author Organization [place] Address [address] [facility] [place] [address] Care Team Providers Name Role Phone Teresita Garcia MD Primary Care Provider Teresita Garcia MD Unavailable Dolores Caputo AIRCONDITIONING DRAFTING OFFICER Unavailable Letha Vasquez MA Unavailable Encounter Details Date Type Department Care Team Description 06/19/2020 Anesthesia - M [facility] Erik [place] [address] [place] [phone] [place], [place] [phone] [address] Social History Tobacco Use Types Packs/Day Years [...] do you attend mu-ism or Not asked sabianist services? Do you [...] bladder stones, juvenile osteochondrosis hip and pelvis, eskd-bgzin-adxkhxu disease, venous stasis, acquired pseudomeningocele. Covis negative [...] Depression Total Score: 8 12/02/2019 2:02 PM FAMILY LAW SPECIALIST documented as of this encounter Care Teams Bag Builder Relationship Specialty Start Date End Date Teresita Garcia MD PCP - General Family Practice 01/22/11 [address] [place], [place] [id number] Teresita Garcia MD Assigned PCP 11/16/16 12/28/21 [address] [place], [place] [id number] Dolores Caputo, AIRCONDITIONING DRAFTING OFFICER Lead Senior Care Manager Primary Care - CC 06/27/20 09/03/20 Letha Vasquez, Community Health Worker 07/05/20 09/03/20 [place] documented as of this encounter
--- OUTSIDE RECORDS SUMMARY | 2022-08-27 14:11 | XMS_ITS | Encounter Summary ---
:1960 Author Organization [place] Address [address] [facility] [place] [address] Care Team Providers Name Role Phone Teresita [...] do you attend presybeterian or Not asked sikh services? Do you [...] Total Score: 8 12/02/2019 2:02 PM SUPERVISOR POLICY CHANGE CLERKS documented as of this encounter Care Teams Digital Imager Relationship Specialty Start Date End Date Teresita Garcia MD PCP - General Family Practice 01/22/11 [address] [place] [address] Teresita Garcia MD Assigned PCP 11/16/16 12/28/21 [address] [place], [place] [id number] documented as of this encounter
--- OUTSIDE RECORDS SUMMARY | 2022-08-27 14:11 | XMS_ITS | Encounter Summary ---
:1960 Author Organization [place] Address [address] [facility] [place] [address] Care Team Providers Name Role Phone Teresita Garcia MD Primary Care Provider Teresita Garcia MD Unavailable Dolores Caputo PROPOSAL ENGINEER Unavailable Letha Vasquez MA Unavailable Encounter Details Date Type Department Care Team Description 05/28/2020 Ambulatory - [facility] [place] Dax Menon Encounte r [facility] OR screening for other [address] [place] [address] viral diseases [place], [place] UROLOGY [phone] [place] [address] [phone] Social History Tobacco Use Types [...] do you attend anglican or Not asked denominational services? Do you [...] 1:31 PM Encounter Date: 05/28/2020 Status: Signed Barrel Lathe Operator Inside: Camila Sorto RN (Registered Nurse) Addended by: CAMILA SORTO on: 05/28/2020 01:31 PM Modules accepted: Orders documented in this encounter Plan of Treatment Not on filedocumented as of this encounter Visit Diagnoses Diagnosis Encounter for screening for other viral diseases documented in this encounter Additional Health Concerns Assessment Noted Time PHQ-9 Depression Total Score: 8 12/02/2019 2:02 PM WELDER OXYHYDROGEN documented as of this encounter Care Teams Underbaster Relationship Specialty Start Date End Date Teresita Garcia MD PCP - General Family Practice 01/22/11 [address] [place] [address] Teresita Garcia MD Assigned PCP 11/16/16 12/28/21 [address] [place] [address] Dolores Caputo LSW Lead Television Program Director Primary Care - CC 06/27/20 09/03/20 Letha Vasquez, Community Health Worker 07/05/20 09/03/20 [place] documented as of this encounter
--- OUTSIDE RECORDS SUMMARY | 2022-08-27 14:11 | XMS_ITS | Encounter Summary ---
:[address] Address [address] [facility] [place] [address] Care Team Providers Name Role Phone Teresita Garcia MD Primary Care Provider Teresita Garcia MD Unavailable Encounter Details Date Type Department Care Team Description 06/19/2020 Hospital Encounter [facility] MD ayah Bladder stones [facility] [place] [facility] [address] [place] [phone] [place], [place] [phone] Social History Tobacco Use Types Packs/Day [...] you attend oriental orthodox or Not asked denominational services? Do you [...] Date of surgery: 06/19/20 Place of Surgery: [facility] Surgeon: Dax Menon MD Anesthesia: General Preoperative diagnosis: 1. Multiple sclerosis 2. Neurogenic bladder 3. Bladder stones Postoperative diagnosis: 1. Multiple sclerosis 2. Neurogenic bladder 3. Bladder stones Procedure: 1. Cystoscopy 2. Cystolitholapaxy with holmium laser lithotripsy 3. Intravesical Botox injection Drains: 18 Prydeinig silicone Valenzuela catheter Specimens: Bladder stones Estimated [...] the posterior wall and trigone. A 18 Prydeinig silicone Valenzuela was then inserted and placed [...] Composition See Note 06/25/2020 2:30 PM CDT [facility] Comment: Calculi composed primarily of: 30% magnesium [...] composition determined by FTIR analysis. Performed By: [facility] [address] [place] [address] Day Worker: Iona Lauren MD Specimen Anatomical Collection Method Collection Time Receive d Time (Source) Location / / Volume Laterality Calculus URINARY BLADDER 06/19/2020 1:53 PM 2019 3:09 specimen STRUCTURE / CDT PM CDT (specimen) Unknown Dax Menon MD LAB - BODY FLUIDS ORDERABLES Performing Organization Address City/State/ZIP Code Phon e Number Outline App [place], [place] [phone] [address] [facility] [address] [facility] [address] [place] [phone] documented in this encounter Visit Diagnoses Diagnosis Bladder stones Other calculus in bladder documented in this encounter Additional Health Concerns Assessment Noted Time PHQ-9 Depression Total Score: 8 12/02/2019 2:02 PM TOOLMAN documented as of this encounter Care Teams Cafe Lead Relationship Specialty Start Date End Date Teresita Garcia MD PCP - General Family Practice 01/22/11 [address] [place] [address] Teresita Garcia MD Assigned PCP 11/16/16 12/28/21 [address] [place], [place] [id number] documented as of this encounter
--- OUTSIDE RECORDS SUMMARY | 2022-08-27 14:11 | XMS_ITS | Encounter Summary ---
:1960 Author Organization [place] Address [facility] [place] [address] Care Team Providers Name Role Phone Teresita Garcia MD Primary Care Provider Teresita Garcia MD Unavailable Dolores Caputo TELEVISION NEWS PRODUCER Unavailable Letha Vasquez MA Unavailable Encounter Details Date Type Department Care Team Description 06/15/2020 Ambulatory - [facility] Estefani Figueroa screeni for other Laboratory viral diseases [address] [facility], [address] [place] [address] Social History Tobacco Use Types [...] do you attend religious or Not asked gnosticism services? Do you [...] Depression Total Score: 8 12/02/2019 2:02 PM LABORER TURKEY FARM documented as of this encounter Care Teams Rivet Maker Relationship Specialty Start Date End Date Teresita Garcia MD PCP - General Family Practice 01/22/11 [address] [place], [place] [phone] Teresita Garcia MD Assigned PCP 11/16/16 12/28/21 [address] [place], [place] [phone] Dolores Caputo, TELEVISION NEWS PRODUCER Lead Computer Aided Design Technician Primary Care - CC 06/27/20 09/03/20 Letha Vasquez, Community Health Worker 07/05/20 09/03/20 JAY JAY documented as of this encounter
--- OUTSIDE RECORDS SUMMARY | 2022-08-27 14:11 | XMS_ITS | Encounter Summary ---
:1960 Author Organization [place] Address [address] [facility] [place] [address] Care Team Providers Name Role Phone Teresita Garcia MD Primary Care Provider Teresita Garcia MD Unavailable Dolores Caputo JAVASCRIPT PROGRAMMER Unavailable Letha Vasquez MA Unavailable Reason for Visit Reason Onset Date Comments Forms 07/19/2020 Additional Orders-Ot her Encounter Details Date Type Department Care Team Description 07/19/[address] [facility] Teresita Garcia MD Forms (Additional Clinic [address] Orders-Other) [id number] [place] [address] [phone] Social History Tobacco Use Types Packs/Day [...] do you attend holiness or Not asked buddhist services? Do you [...] to complete. Form in the in-basket at [facility] in AA's folder. documented in this encounter Plan of Treatment Not on filedocumented as of this encounter Visit Diagnoses Not on filedocumented in this encounter Additional Health Concerns Assessment Noted Time PHQ-9 Depression Total Score: 8 06/26/2020 12:57 PM CD T documented as of this encounter Care Teams Certified Pharmacy Tech Relationship Specialty Start Date End Date Teresita Garcia MD PCP - General Family Practice 01/22/11 [address] [place] [address] Teresita Garcia MD Assigned PCP 11/16/16 12/28/21 [address] [place] [address] Dolores Caputo, JAVASCRIPT PROGRAMMER Lead Financial Counselor Primary Care - CC 06/27/20 09/03/20 Letha Vasquez, Community Health Worker 07/05/20 09/03/20 JAY JAY documented as of this encounter
--- OUTSIDE RECORDS SUMMARY | 2022-08-27 14:11 | XMS_ITS | Encounter Summary ---
:1960 Author Organization [place] Address [facility] [place] [address] Care Team Providers Name Role Phone Teresita Garcia MD Primary Care Provider Teresita Garcia MD Unavailable Reason for Visit Reason Onset Date Comments Forms 05/18/2020 Orders Encounter Details Date Type Department Care Team Description 05/18/2020 Telephone [facility] Roel Garcia MD Forms (Orders) [address] [place] [address] [place] [address] [phone] Social History Tobacco Use Types Packs/Day Years [...] do you attend jainism or Not asked confucianism services? Do you [...] clinic location was the form placed at?: [facility] Where the form was placed: Dr Garcia Box/Folder What number is listed as a contact on the form?: [phone] Additional comments: please sign and date and fax to [phone] Call taken on 05/18/2020 at 9:59 AM by Brooklyn Ogden documented in this encounter Plan of Treatment Not on filedocumented as of this encounter Visit Diagnoses Not on filedocumented in this encounter Additional Health Concerns Assessment Noted Time PHQ-9 Depression Total Score: 8 12/02/2019 2:02 PM BASTER HAND documented as of this encounter Care Teams Stakeholder Manager Relationship Specialty Start Date End Date Teresita Garcia MD PCP - General Family Practice 01/22/11 [address] [place] [address] Teresita Garcia MD Assigned PCP 11/16/16 12/28/21 [address] [place] [address] documented as of this encounter
--- OUTSIDE RECORDS SUMMARY | 2022-08-27 14:11 | XMS_ITS | Encounter Summary ---
:1960 Author Organization [place] Address [address] [facility] [place] [address] Care Team Providers Name Role Phone Teresita Garcia MD Primary Care Provider Teresita Garcia MD Unavailable Dolores Caputo VELVET CUTTER Unavailable Letha Vasquez MA Unavailable Encounter Details Date Type Department Care Team Description 07/18/2020 Communication - [place] Centralized [facility] Scheduling JERRI Diaz [address] [place] [address] Social History Tobacco Use Types [...] do you attend confucianism or Not asked congregation services? Do you [...] as of this encounter Care Teams Tank Cooper Relationship Specialty Start Date End Date Teresita Garcia MD PCP - General Family Practice 01/22/11 [address] [place], [place] [phone] Teresita Garcia MD Assigned PCP 11/16/16 12/28/21 [address] [place], [place] [phone] Dolores Caputo, VELVET CUTTER Lead Stone Rougher Primary Care - CC 06/27/20 09/03/20 Letha Vasquez, Community Health Worker 07/05/20 09/03/20 [place] documented as of this encounter
--- OUTSIDE RECORDS SUMMARY | 2022-08-27 14:11 | XMS_ITS | Encounter Summary ---
:1960 Author Organization [place] Address [address] [place] [address] Care Team Providers Name Role Phone Teresita Garcia MD Primary Care Provider Teresita Garcia MD Unavailable Dolores Caputo VP AD PRODUCTS AND PLANNING Unavailable Letha Vasquez MA Unavailable Audrey Hickman MD Unavailable [phone] Reason for Visit Reason Onset Date Comments Forms 05/23/2020 [facility] Encounter Details Date Type Department Care Team Description 05/23/2020 [facility] Teresita Garcia MD Forms ([address]) [address] [place] [phone] Social History Tobacco Use Types Packs/Day Years [...] do you attend jainism or Not asked baptism services? Do you [...] PM CDT Recd 6 page fax from [facility]. Please sign Plan of Care orders and fax to [phone]. Form in AA folder at [place]. Malena Hankins Transport Driver documented in this encounter Plan of Treatment Not on filedocumented as of this encounter Visit Diagnoses Not on filedocumented in this encounter Additional Health Concerns Assessment Noted Time PHQ-9 Depression Total Score: 8 12/02/2019 2:02 PM WEB PRODUCTION MANAGER documented as of this encounter Care Teams Paper Final Inspector Relationship Specialty Start Date End Date Teresita Garcia MD PCP - General Family Practice 01/22/11 [address] [place] [address] Teresita Garcia MD Assigned PCP 11/16/16 12/28/21 [address] [place] [address] Dolores Caputo, VP AD PRODUCTS AND PLANNING Lead Can Pusher Primary Care - CC 06/27/20 09/03/20 Letha Vasquez, Community Health Worker 07/05/20 09/03/20 MA Audrey Hickman Assigned PCP 12/29/21 MD Bernie [address] [place] [address] documented as of this encounter
--- OUTSIDE RECORDS SUMMARY | 2022-08-27 14:11 | XMS_ITS | Encounter Summary ---
:1960 Author Organization [place] Address [address] [facility] [place] [address] Care Team Providers Name Role Phone Teresita [...] do you attend religious or Not asked orthodox services? Do you [...] Depression Total Score: 8 12/02/2019 2:02 PM STEAMFITTER APPRENTICE documented as of this encounter Care Teams Spray Foam Installer Relationship Specialty Start Date End Date Teresita Garcia MD PCP - General Family Practice 01/22/11 [address] [place] [address] Teresita Garcia MD Assigned PCP 11/16/16 12/28/21 [address] [place], [place] [phone] documented as of this encounter
--- OUTSIDE RECORDS SUMMARY | 2022-08-27 14:11 | XMS_ITS | Encounter Summary ---
:1960 Author Organization [place] Address [facility] [place] [address] Care Team Providers Name Role Phone Teresita Garcia MD Primary Care Provider Teresita Garcia MD Unavailable Reason for Visit Reason Onset Date Comments Forms 05/25/2020 orders Encounter Details Date Type Department Care Team Description 05/25/2020 Telephone [facility] Roel Garcia MD Forms (orders) [id number] [place] [address] [place] [address] [phone] Social History Tobacco Use Types Packs/Day Years [...] do you attend denominational or Not asked denominational services? Do you [...] 05/25/2020 1:26 PM CDT Faxed Brooklyn Ogden/ Software Sales Representative Telephone Encounter - Brooklyn Ogden - 05/25/2020 [...] clinic location was the form placed at?: [facility] Where the form was placed: Dr Garcia Box/Folder What number is listed as a contact on the form?: [phone] Additional comments: please sign / date and fax to [phone] Call taken on 05/25/2020 at 9:12 AM by Brooklyn Ogden documented in this encounter Plan of Treatment Not on filedocumented as of this encounter Visit Diagnoses Not on filedocumented in this encounter Additional Health Concerns Assessment Noted Time PHQ-9 Depression Total Score: 8 12/02/2019 2:02 PM COMMUNICATIONS SUPERINTENDENT documented as of this encounter Care Teams Credit Control Administrator Relationship Specialty Start Date End Date Teresita Garcia MD PCP - General Family Practice 01/22/11 [address] [place] [address] Teresita Garcia MD Assigned PCP 11/16/16 12/28/21 [address] [place] [address] documented as of this encounter
--- OUTSIDE RECORDS SUMMARY | 2022-08-27 14:11 | XMS_ITS | Encounter Summary ---
:1960 Author Organization [place] Address [address] [facility] [place] [address] Care Team Providers Name Role Phone Teresita Garcia MD Primary Care Provider Teresita Garcia MD Unavailable Dolores Caputo MAKEUP ARTIST Unavailable Letha Vasquez MA Unavailable Reason for Visit Reason Onset Date Comments Forms 07/25/2020 Physician Order Encounter Details Date Type Department Care Team Description 07/25/2020 Telephone [facility] Teresita Garcia MD Forms (Physician Order) Clinic [address] [phone] Social History Tobacco Use Types Packs/Day [...] do you attend christianity or Not asked restorationism services? Do you [...] documented as of this encounter Care Teams Cafeteria Attendant Relationship Specialty Start Date End Date Teresita Garcia MD PCP - General Family Practice 01/22/11 [address] [place] [address] Teresita Garcia MD Assigned PCP 11/16/16 12/28/21 [address] [place] [address] Dolores Caputo, MAKEUP ARTIST Lead Soldering Machine Setter Primary Care - CC 06/27/20 09/03/20 Letha Vasquez, Community Health Worker 07/05/20 09/03/20 JAY JAY documented as of this encounter
--- OUTSIDE RECORDS SUMMARY | 2022-08-27 14:11 | XMS_ITS | Encounter Summary ---
:1960 Author Organization [place] Address [address] [place] [address] Care Team Providers Name Role Phone Teresita Garcia MD Primary Care Provider Teresita Garcia MD Unavailable Reason for Visit Reason Onset Date Comments Pre-Op Exam Imm/Inj 06/12/2020 Flu Shot Encounter Details Date Type Department Care Team Description 06/12/2020 Office Visit [facility] Albina Andujar eneral physical exam (Primary Dx); Clinic [employer] DEVORAH Quiñonez Bladder stone; [address] [place] [address] Need for prophylactic vaccin ation and inoculation against influenza [place], [place] [address] [address] [place], [place] [phone] [address] Social History Tobacco Use Types Packs/Day [...] do you attend sikh or Not asked gnosticism services? Do you [...] list of medicines, including herbal treatments and oesg-qmz-gxzuhww drugs ?? Whether the patient has a [...] pre-approve the surgery. (If no insurance, call [phone].) ?? Call your surgeon's clinic if there's [...] of your health care provider. Copyright ?? [id number] [facility]. All rights reserved. Clinically reviewed by Zoie Davis MD. [employer] [id number] - REV 04/15. Preparing for Your Surgery [...] list of medicines, including herbal treatments and xtts-upe-olrdzdj drugs ?? Whether the patient has a [...] pre-approve the surgery. (If no insurance, call [phone].) ?? Call your surgeon's clinic if there's [...] of your health care provider. Copyright ?? [id number] [facility]. All rights reserved. Clinically reviewed by Zoie Davis MD. [employer] [id number] - REV 04/15. Preparing for Your Surgery [...] list of medicines, including herbal treatments and vlkb-mui-qufovsj drugs ?? Whether the patient has a [...] pre-approve the surgery. (If no insurance, call [phone].) ?? Call your surgeon's clinic if there's [...] of your health care provider. Copyright ?? 4988-2050 [email or web address]. All rights reserved. Clinically reviewed by Zoie Davis MD. [employer] [id number] - REV 04/15. Preparing for Your Surgery [...] list of medicines, including herbal treatments and oxlf-wzn-fvffdeb drugs ?? Whether the patient has a [...] pre-approve the surgery. (If no insurance, call [phone].) ?? Call your surgeon's clinic if there's [...] of your health care provider. Copyright ?? [id number] [facility]. All rights reserved. Clinically reviewed by Zoie Davis MD. [employer] [id number] - REV 04/15. documented in this encounter [employer] Albina Andujar PA-C - 06/12/2020 10:00 AM CDT [address] [phone] Dept: [phone] PRE-OP EVALUATION: Today's date: 06/12/2020 Dejuan Rodriguez (: 1960) presents for pre-operative evaluation assessment as requested byDr. Dax Menon. He requires evaluation and anesthesia risk assessment prior to undergoing surgery/procedure for treatment of CYSTOSCOPY CYSTOLITHOLAPAXY . Proposed Surgery/ Procedure: CYSTOSCOPY CYSTOLITHOLAPAXY Date of Surgery/ Procedure: 06/19/20 Time of Surgery/ Procedure: Hospital/Surgical Facility: [facility] Fax Number: Note does not need to be faxed, will be available electronically in [employer]. Primary Physician: Teresita Garcia Type of Anesthesia [...] process. Provider to review and confirm.) ??? Qdtz-Lyeny-Osifopu disease 05/14/2011 Priority: Medium ??? Atopic rhinitis [...] ??? Multiple sclerosis (H) sees neurology at [facility] ??? Osteoporosis 01/20/2017 In the spine. [...] cardiovascular risks for perioperative complications such as (SD, PE, VFib and 3?? AV Block): No [...] - 06/12/2020 10:00 AM CDT Faxed to [phone] Chasity Ferrari RMA documented in this encounter [...] Depression Total Score: 8 12/02/2019 2:02 PM ESCROW SECRETARY documented as of this encounter Care Teams Analytical Lab Analyst Relationship Specialty Start Date End Date Teresita Garcia MD PCP - General Family Practice 01/22/11 [address] [place], [place] [phone] Teresita Garcia MD Assigned PCP 11/16/16 12/28/21 [address] [place] [address] documented as of this encounter
--- OUTSIDE RECORDS SUMMARY | 2022-08-27 14:11 | XMS_ITS | Encounter Summary ---
:1960 Author Organization [place] Address [address] [facility] [place] [address] Care Team Providers Name Role Phone Teresita Garcia MD Primary Care Provider Teresita Garcia MD Unavailable Encounter Details Date Type Department Care Team Description 06/13/2020 Medical Correspondence [facility] Scan, PLAN OF CARE [facility] Non-Provider [facility] [address] [place] [address] Social History Tobacco Use Types [...] do you attend presybeterian or Not asked denominational services? Do you [...] Depression Total Score: 8 12/02/2019 2:02 PM INSURANCE CLAIMS ASSISTANT documented as of this encounter Care Teams Marketing And Public Relations Manager Relationship Specialty Start Date End Date Teresita Garcia MD PCP - General Family Practice 01/22/11 [address] [place], [place] [phone] Teresita Garcia MD Assigned PCP 11/16/16 12/28/21 [address] [place] [address] documented as of this encounter
--- OUTSIDE RECORDS SUMMARY | 2022-08-27 14:11 | XMS_ITS | Encounter Summary ---
:1960 Author Organization [place] Address [address] [place] [address] Care Team Providers Name Role Phone Teresita Garcia MD Primary Care Provider Teresita Garcia MD Unavailable Encounter Details Date Type Department Care Team Description 05/23/2020 Medical Correspondence [facility] Scan, PLAN OF CARE [facility] Non-Provider HOME HEALTH /HOSPICE Sr[facility] [address] [place] [address] Social History Tobacco Use Types [...] do you attend scientologist or Not asked jew services? Do you [...] Depression Total Score: 8 12/02/2019 2:02 PM MD UROLOGIST documented as of this encounter Care Teams China Decorator Relationship Specialty Start Date End Date Teresita Garcia MD PCP - General Family Practice 01/22/11 [address] [place] [address] Teresita Garcia MD Assigned PCP 11/16/16 12/28/21 [address] [place] [address] documented as of this encounter
--- OUTSIDE RECORDS SUMMARY | 2022-08-27 14:11 | XMS_ITS | Encounter Summary ---
:1960 Author Organization [place] Address [address] [place] [address] Care Team Providers Name Role Phone Teresita Garcia MD Primary Care Provider Teresita Garcia MD Unavailable Reason for Referral Care Coordination (Routine) - Closed Specialty Diagnoses / Procedures Referred By Contact Refer red To Contact Diagnoses Encounter for Medicare [place] [address] [place] [address] Referral ID Status Reason Start Date Expiration Date Visits Requ ested Visits Authorized [id number] Closed 06/26/2020 06/26/2021 1 1 atient Education (Routine) - Closed Specialty Diagnoses / Procedures Referred By Contact Refer red To Contact Diagnoses Advanced directives, counseling/discussion Teresita Garcia MD [facility] [address] [address] Phone: Referral ID Status Reason Start Date Expiration Date Visits Requ ested Visits Authorized [id number] Closed 06/26/2020 06/26/2021 1 1 Reason for Visit Reason Comments Wellness Visit Encounter Details Date Type Department Care Team Description 06/26/2020 Virtual Visit [facility] Teresita Garcia MD Advanced directives, counseling/discussi on (Primary Dx); [facility] [place] [address] [address] Need for shingles vaccine; [address] [place], [place] Encounter for Medicare gatoua l wellness exam; [place] [address] MS (multiple sclerosis) (H) [phone] Social History [...] do you attend voodoo or Not asked sikh services? Do you [...] 2-3 years. Lab review: No concerns per clinical review specialist MyChart Patient is active on MyChart. although does not appear that he has ever used Specialty Visits - Multiple [facility], [place] Urology 04/12/2020. Neurology 05/08/2020, Cystoscopy 06/19/2020 bladder stones Patient preferred phone number: [phone] Health Maintenance Due Topic Date Due ??? ADVANCE CARE PLANNING 1960 ??? MEDICARE ANNUAL WELLNESS VISIT 12/15/1979 ??? ZOSTER IMMUNIZATION (1 of 2) 12/15/2011 ??? PHQ-9 06/03/2020 Blanca Choi, Registered Nurse, MEG (Patient Advocate Liason) [facility] [phone] Teresita Garcia MD - 06/26/2020 1:00 PM [...] be resent to: Text to cell phone: [phone] Will anyone else be joining your video [...] visit; need for additional assessment in future [id number] visit Do you have sleep apnea, excessive [...] versa, the whole house is equipped with [employer] device so if he jordy the floor, he can call throw [employer] device. In regards to his mood, he [...] following up with Neurology. Teresita Garcia MD [facility] Video-Visit Details Type of service: Video Visit Video End Time:1:33 Originating Location (pt. Location): Home Distant Location (provider location): [facility] Platform used for Video Visit: Ty documented [...] documented as of this encounter Care Teams Hostel Parent Relationship Specialty Start Date End Date Teresita Garcia MD PCP - General Family Practice 01/22/11 [address] [place] [address] Teresita Garcia MD Assigned PCP 11/16/16 12/28/21 [address] [place] [address] documented as of this encounter
--- OUTSIDE RECORDS SUMMARY | 2022-08-27 14:11 | XMS_ITS | Encounter Summary ---
:1960 Author Organization [place] Address [facility] [place] [address] Care Team Providers Name Role Phone Teresita Garcia MD Primary Care Provider Teresita Garcia MD Unavailable Reason for Visit Reason Onset Date Comments Forms 06/07/2020 Orders Encounter Details Date Type Department Care Team Description 06/07/2020 Telephone [facility] Roel Garcia MD Forms (Orders ) [phone] [place] [address] [phone] (Wo rk) Social History Tobacco [...] do you attend anabaptism or Not asked church services? Do you [...] clinic location was the form placed at?: [facility] Where the form was placed: Dr Garcia Box/Folder What number is listed as a contact on the form?: [phone] Additional comments: please /sign date and fax to [phone] Call taken on 06/07/2020 at 4:00 PM by Brooklyn Ogden documented in this encounter Plan of Treatment Not on filedocumented as of this encounter Visit Diagnoses Not on filedocumented in this encounter Additional Health Concerns Assessment Noted Time PHQ-9 Depression Total Score: 8 12/02/2019 2:02 PM BUSINESS SERVICES REPRESENTATIVE documented as of this encounter Care Teams Drying Tumbler Operator Relationship Specialty Start Date End Date Teresita Garcia MD PCP - General Family Practice 01/22/11 [address] [place], [place] [phone] Teresita Garcia MD Assigned PCP 11/16/16 12/28/21 [address] [place], [place] [phone] documented as of this encounter
--- OUTSIDE RECORDS SUMMARY | 2022-08-27 14:11 | XMS_ITS | Encounter Summary ---
:1960 Author Organization [place] Address [address] [facility] [place] [address] Care Team Providers Name Role Phone Teresita Garcia MD Primary Care Provider Teresita Garcia MD Unavailable Dolores Caputo PUMP ATTENDANT Unavailable Letha Vasquez MA Unavailable Encounter Details Date Type Department Care Team Description 06/19/2020 [facility] UROLOGY [address] [place] [phone] [place], [place] [phone] [phone] (Wo rk) Social History Tobacco Use [...] do you attend islam or Not asked mandaen services? Do you [...] Depression Total Score: 8 12/02/2019 2:02 PM HARNESS INSTALLER documented as of this encounter Care Teams Business Applications Specialist Relationship Specialty Start Date End Date Teresita Garcia MD PCP - General Family Practice 01/22/11 [address] [place], [place] [phone] Teresita Garcia MD Assigned PCP 11/16/16 12/28/21 [address] [place] [address] Dolores Caputo, PUMP ATTENDANT Lead Cane Feeder Primary Care - CC 06/27/20 09/03/20 Letha Vasquez, Community Health Worker 07/05/20 09/03/20 MA documented as of this encounter
--- OUTSIDE RECORDS SUMMARY | 2022-08-27 14:11 | XMS_ITS | Encounter Summary ---
:1960 Author Organization [place] Address [facility] [place] [address] Care Team Providers Name Role Phone Teresita Garcia MD Primary Care Provider Teresita Garcia MD Unavailable Reason for Visit Reason Comments Medication Refill Encounter Details Date Type Department Care Team Description 05/27/2020 Refill [facility] Roel Garcia MD Medication Refill [place] [id number] [place] [address] [place], [place] [phone] [place] [address] [phone] Social History Tobacco Use Types Packs/Day Years [...] do you attend taoist or Not asked temple services? Do you [...] 05/29/2020 7:56 AM CDT Prescription approved per [facility] Refill Protocol. Haily Adams RN documented in this encounter Plan of Treatment Not on filedocumented as of this encounter Visit Diagnoses Diagnosis Seborrheic dermatitis of scalp - Primary Other seborrheic dermatitis Osteoporosis, unspecified osteoporosis t ype, unspecified pathological fracture presence documented in this encounter Additional Health Concerns Assessment Noted Time PHQ-9 Depression Total Score: 8 12/02/2019 2:02 PM ELEMENTARY SPECIAL EDUCATION TEACHER documented as of this encounter Care Teams Electronic Organ Mechanic Relationship Specialty Start Date End Date Teresita Garcia MD PCP - General Family Practice 01/22/11 [address] [place], [place] [phone] Teresita Garcia MD Assigned PCP 11/16/16 12/28/21 [address] [place], [place] [phone] documented as of this encounter
--- OUTSIDE RECORDS SUMMARY | 2022-08-27 14:11 | XMS_ITS | Encounter Summary ---
:1960 Author Organization [place] Address [address] [facility] [place] [address] Care Team Providers Name Role Phone Teresita Garcia MD Primary Care Provider Teresita Garcia MD Unavailable Dolores Caputo FLAVORER Unavailable Letha Vasquez MA Unavailable Encounter Details Date Type Department Care Team Description 06/17/2020 Communication - [place] Central[facility] Scheduling JERRI Diaz [address] [place] [address] Social History Tobacco Use Types [...] do you attend mandaen or Not asked faith services? Do you [...] Depression Total Score: 8 12/02/2019 2:02 PM GRANITE POLISHER MACHINE documented as of this encounter Care Teams Hospice/Home Health Aide Relationship Specialty Start Date End Date Teresita Garcia MD PCP - General Family Practice 01/22/11 [address] [place], [place] [phone] Teresita Garcia MD Assigned PCP 11/16/16 12/28/21 [address] [place], [place] [phone] Dolores Caputo, FLAVORER Lead Heating And Ventilating Tender Primary Care - CC 06/27/20 09/03/20 Letha Vasquez, Community Health Worker 07/05/20 09/03/20 MA documented as of this encounter
--- OUTSIDE RECORDS SUMMARY | 2022-08-27 14:12 | XMS_ITS | Encounter Summary ---
:1960 Author Organization [place] Address [address] [place] [address] Care Team Providers Name Role Phone Teresita Garcia MD Primary Care Provider Teresita Garcia MD Unavailable Encounter Details Date Type Department Care Team Description 12/05/2019 Medical Correspondence [facility] [place] Scan, HOME VISIT ORDER Health Info Mgmt Non-Provider [facility] HEALTH/HOSPICE [address] [place] [address] Social History Tobacco Use Types [...] do you attend denominational or Not asked holiness services? Do you [...] Depression Total Score: 8 12/02/2019 2:02 PM MACHINE SIZER documented as of this encounter Care Teams Children Librarian Relationship Specialty Start Date End Date Teresita Garcia MD PCP - General Family Practice 01/22/11 [address] [place] [address] Teresita Garcia MD Assigned PCP 11/16/16 12/28/21 [address] [place] [address] documented as of this encounter
--- OUTSIDE RECORDS SUMMARY | 2022-08-27 14:12 | XMS_ITS | Encounter Summary ---
:1960 Author Organization [place] Address [facility] [place] [address] Care Team Providers Name Role Phone Teresita Garcia MD Primary Care Provider Teresita Garcia MD Unavailable Reason for Visit Reason Onset Date Comments Forms 02/14/2020 Plan of Care Encounter Details Date Type Department Care Team Description 02/14/2020 Telephone [facility] Roel Garcia MD Forms (Plan of Care) [phone] [place] [phone] Social History Tobacco Use Types Packs/Day Years [...] do you attend shinto or Not asked islam services? Do you [...] complete. Form in the in- basket at [facility] in 's folder. documented in this encounter Plan of Treatment Not on filedocumented as of this encounter Visit Diagnoses Not on filedocumented in this encounter Additional Health Concerns Assessment Noted Time PHQ-9 Depression Total Score: 8 12/02/2019 2:02 PM EVENTS DIRECTOR documented as of this encounter Care Teams Disaster Recovery Consultant Relationship Specialty Start Date End Date Teresita Garcia MD PCP - General Family Practice 01/22/11 [address] [place], [place] [phone] Teresita Garcia MD Assigned PCP 11/16/16 12/28/21 [address] [place] [address] documented as of this encounter
--- OUTSIDE RECORDS SUMMARY | 2022-08-27 14:12 | XMS_ITS | Encounter Summary ---
:1960 Author Organization [place] Address [address] [place] [address] Care Team Providers Name Role Phone Teresita Garcia MD Primary Care Provider Teresita Garcia MD Unavailable Reason for Visit Reason Onset Date Comments Orders 03/05/2020 [facility] Encounter Details Date Type Department Care Team Description 03/05/2020 Documentation Only [facility] Sedrick Giron O rders ([facility]) [address] [place] [address], [phone] [place] [address] Social History Tobacco Use Types Packs/Day [...] do you attend baptist or Not asked jain services? Do you [...] 03/05/2020 12:59 PM CDT Signed forms faxed. .aMlena Hankins Technical Business Analyst documented in this encounter Plan of Treatment Not on filedocumented as of this encounter Visit Diagnoses Not on filedocumented in this encounter Additional Health Concerns Assessment Noted Time PHQ-9 Depression Total Score: 8 12/02/2019 2:02 PM PERFORATOR LOADER documented as of this encounter Care Teams Associate Medical Director Relationship Specialty Start Date End Date Teresita Garcia MD PCP - General Family Practice 01/22/11 [address] [place] [address] Teresita Garcia MD Assigned PCP 11/16/16 12/28/21 [address] [place], [place] [phone] documented as of this encounter
--- OUTSIDE RECORDS SUMMARY | 2022-08-27 14:12 | XMS_ITS | Encounter Summary ---
:1960 Author Organization [place] Address [address] [facility] [place] [address] Care Team Providers Name Role Phone Teresita Garcia MD Primary Care Provider Teresita Garcia MD Unavailable Encounter Details Date Type Department Care Team Description 03/20/2020 Medical Correspondence [facility] Scan, PLAN OF CARE [facility] Non-Provider HOME HEALTH /HOSPICE Srvcs [address] [place] [address] Social History Tobacco Use Types [...] do you attend scientologist or Not asked buddhist services? Do you [...] Depression Total Score: 8 12/02/2019 2:02 PM TALENT ACQUISITION RELATIONSHIP MANAGER documented as of this encounter Care Teams Plastics Fabricator And Assembler Relationship Specialty Start Date End Date Teresita Garcia MD PCP - General Family Practice 01/22/11 [address] [place], [place] [phone] Teresita Garcia MD Assigned PCP 11/16/16 12/28/21 [address] [place], [place] [address] documented as of this encounter
--- OUTSIDE RECORDS SUMMARY | 2022-08-27 14:12 | XMS_ITS | Encounter Summary ---
:1960 Author Organization [place] Address [address] [facility] [place] [address] Care Team Providers Name Role Phone Teresita Garcia MD Primary Care Provider Treesita Garcia MD Unavailable Reason for Visit Reason Onset Date Comments Erroneous encounter-disregard 01/24/2020 Encounter Details Date Type Department Care Team Description 01/24/2020 Telephone [facility] Teresita Garcia MD Erroneous Clinic [place] [id number] [place] [address] encounter-disregard [address] [place], [place] [phone] Social History Tobacco Use Types Packs/Day [...] do you attend mandaeism or Not asked restorationist services? Do you [...] Depression Total Score: 8 12/02/2019 2:02 PM SPECIMEN ACCESSIONER documented as of this encounter Care Teams Fly Finisher Relationship Specialty Start Date End Date Teresita Garcia MD PCP - General Family Practice 01/22/11 [address] [place], [place] [phone] Teresita Garcia MD Assigned PCP 11/16/16 12/28/21 [address] [place], [place] [address] documented as of this encounter
--- OUTSIDE RECORDS SUMMARY | 2022-08-27 14:12 | XMS_ITS | Encounter Summary ---
:1960 Author Organization [place] Address [address] [place] [address] Care Team Providers Name Role Phone Teresita Garcia MD Primary Care Provider Teresita Garcia MD Unavailable Reason for Visit Reason Onset Date Comments Orders 12/21/2019 [facility] Encounter Details Date Type Department Care Team Description 12/21/[address] [facility] Teresita Garcia MD Orders ([facility] [address]) [address] [place] [phone] Social History Tobacco Use Types Packs/Day [...] do you attend cheondoism or Not asked restorationist services? Do you [...] AM CDT Recd 2 page fax from [employer]. Please sign orders and fax to [phone] Form in AA folder at [place]. Malena Hankins Senior Oracle Database Developer documented in this encounter Plan of Treatment Not on filedocumented as of this encounter Visit Diagnoses Not on filedocumented in this encounter Additional Health Concerns Assessment Noted Time PHQ-9 Depression Total Score: 8 12/02/2019 2:[address] DEPARTMENT DISPATCHER documented as of this encounter Care Teams Electronics Engineering Professor Relationship Specialty Start Date End Date Teresita Garcia MD PCP - General Family Practice 01/22/11 [address] [place] [address] Teresita Garcia MD Assigned PCP 11/16/16 12/28/21 [address] [place] [address] documented as of this encounter
--- OUTSIDE RECORDS SUMMARY | 2022-08-27 14:12 | XMS_ITS | Encounter Summary ---
:1960 Author Organization [place] Address [facility] [place] [address] Care Team Providers Name Role Phone Teresita Garcia MD Primary Care Provider Teresita Garcia MD Unavailable Reason for Visit Reason Comments Medication Refill Encounter Details Date Type Department Care Team Description 02/07/2020 Refill [facility] Roel Garcia MD Medication Refill [place] [phone] [place] [address] [place], [place] [address] [place] [address] 24-7283 [phone] Social History Tobacco Use Types Packs/Day Years [...] do you attend protestant or Not asked jain services? Do you [...] Depression Total Score: 8 12/02/2019 2:02 PM RESEARCH ANIMAL FACILITY SUPERVISOR documented as of this encounter Care Teams Brand Inspector Relationship Specialty Start Date End Date Teresita Garcia MD PCP - General Family Practice 01/22/11 [address] [place], [place] [phone] Teresita Garcia MD Assigned PCP 11/16/16 12/28/21 [address] [place], [place] [phone] documented as of this encounter
--- OUTSIDE RECORDS SUMMARY | 2022-08-27 14:12 | XMS_ITS | Encounter Summary ---
:1960 Author Organization [place] Address [facility] [place] [address] Care Team Providers Name Role Phone Teresita Garcia MD Primary Care Provider Teresita Garcia MD Unavailable Reason for Visit Reason Onset Date Comments Orders 12/07/2019 [facility] Encounter Details Date Type Department Care Team Description 12/07/2019 Telephone [facility] Teresita Garcia MD Orders ([facility] [id number] [place] [address]) [address] [place] [phone] Social History Tobacco Use Types Packs/Day [...] do you attend mormonism or Not asked congregation services? Do you [...] PM CDT Recd [facility]. Please sign orders and fax to [phone]. Form in AA folder at [place]. Malena Hankins Vending Route Driver documented in this encounter Plan of Treatment Not on filedocumented as of this encounter Visit Diagnoses Not on filedocumented in this encounter Additional Health Concerns Assessment Noted Time PHQ-9 Depression Total Score: 8 12/02/2019 2:02 PM INFORMATICS PHYSICIAN documented as of this encounter Care Teams Collar Baster Relationship Specialty Start Date End Date Teresita Garcia MD PCP - General Family Practice 01/22/11 [address] [place] [address] Teresita Garcia MD Assigned PCP 11/16/16 12/28/21 [address] [place] [address] documented as of this encounter
--- OUTSIDE RECORDS SUMMARY | 2022-08-27 14:12 | XMS_ITS | Encounter Summary ---
:1960 Author Organization [place] Address [address] [facility] 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 Do you [...] Comme nts DX Routine 04/04/2020 1:43 PM termite exterminator helper current Resu lts for this WRIST/HEEL/RADIUS CDT use of systemic procedu re are in steroids the results section. documented in this encounter Results DX Wrist Heel Radius (04/04/2020 1:43 PM CDT) Anatomical Region Laterality Modality Dexa Bone Mineral Density Specimen (Source) Anatomical Location Collection Method / Collectio n Time Received Time / Laterality Volume Narrative 04/06/2020 1:21 PM CDT BONE DENSITOMETRY [address] [address] 04/04/2020 ?? PATIENT: Dejuan Rodriguez CHART: [id number] : ??1960 AGE: ??59 year old SEX: ??male REFERRING PROVIDER: Teresita Garcia MD ?? PROCEDURE: ??Bone density scanning was p erformed using DXA technology of the lumbar spine and hip. ??Scanning was performed on a Calix scanner. ??Reporting is completed in the form of a T-score. ??The T-score represents the standard deviation from p eak bone mass based on a young healthy adult. ?? REFERENCE T-SCORES: ?Normal ?-1.0 and greater ?Osteopenia ? Between -1. 0 and -2.5 ?Osteoporosis ? -2.5 and less ? RISK FACTORS: ??Post-menopausal, Parent history of osteoporosis with a hip fracture, group home corticosteroid thera py CURRENT TREATMENT: ??Calcium, Fosamax [...] documented in this encounter Visit Diagnoses Diagnosis group home current use of systemic steroi ds Encounter for long-term (current) use of steroids documented in this encounter Additional Health Concerns Assessment Noted Time PHQ-9 Depression Total Score: 8 12/02/2019 2:02 PM TARGET MAN documented as of this encounter Care Teams Account Receivable Associate Relationship Specialty Start Date End Date Teersita Garcia MD PCP - General Family Practice 01/22/11 [address] [place] [address] Teresita Garcia MD Assigned PCP 11/16/16 12/28/21 [address] [place], [place] [address] documented as of this encounter
--- OUTSIDE RECORDS SUMMARY | 2022-08-27 14:12 | XMS_ITS | Encounter Summary ---
:1960 Author Organization [place] Address [address] [facility] [place] [address] Care Team Providers Name Role Phone Teresita Garcia MD Primary Care Provider Teresita Garcia MD Unavailable Reason for Visit Reason Onset Date Comments Orders 03/23/2020 Physicians Orders Encounter Details Date Type Department Care Team Description 03/23/2020 Telephone [facility] Teresita Garcia MD Orders (Physicians Clinic Rule [id number] [place] [address] Orders) [id number] [place] [address] [phone] Social History Tobacco Use Types Packs/Day [...] do you attend buddhism or Not asked anabaptism services? Do you [...] AM CDT Signed form faxed. Malena Hankins Pharmacist Telephone Encounter - Bella Harden - 03/23/2020 9:05 AM CDT Received 3 page fax from Staff Ranker for orders for Dr. Garcia to complete. Placed in AA's folder at [place]. When completed, please fax to [phone]. Bella Harden Pharmacist documented in this encounter Plan of Treatment Not on filedocumented as of this encounter Visit Diagnoses Not on filedocumented in this encounter Additional Health Concerns Assessment Noted Time PHQ-9 Depression Total Score: 8 12/02/2019 2:02 PM COUNSELOR DORMITORY documented as of this encounter Care Teams Mutuel Department Manager Relationship Specialty Start Date End Date Teresita Garcia MD PCP - General Family Practice 01/22/11 [address] [place] [address] Teresita Garcia MD Assigned PCP 11/16/16 12/28/21 [address] [place] [address] documented as of this encounter
--- OUTSIDE RECORDS SUMMARY | 2022-08-27 14:12 | XMS_ITS | Encounter Summary ---
:1960 Author Organization [place] Address [address] [facility] [place] [address] Care Team Providers Name Role Phone Teresita Garcia MD Primary Care Provider Teresita Garcia MD Unavailable Reason for Visit Reason Onset Date Comments Orders 12/06/2019 Home Care orders Encounter Details Date Type Department Care Team Description 12/06/2019 Telephone [facility] Teresita Garcia MD Orders (Home Care Clinic [place] [id number] [place] [address] orders) [id number] [place] [address] [phone] Social History Tobacco Use Types Packs/Day [...] do you attend moravian or Not asked yarsani services? Do you [...] send Orders: Call to give verbal at [phone]. Jenni Bryant Real Estate Transaction Manager documented in this encounter Plan of Treatment Not on filedocumented as of this encounter Visit Diagnoses Not on filedocumented in this encounter Additional Health Concerns Assessment Noted Time PHQ-9 Depression Total Score: 8 12/02/2019 2:02 PM COLD STORAGE WORKER documented as of this encounter Care Teams Tile And Marble Setter Relationship Specialty Start Date End Date Teresita Garcia MD PCP - General Family Practice 01/22/11 [address] [place], [place] [phone] Teresita Garcia MD Assigned PCP 11/16/16 12/28/21 [address] [place] [address] documented as of this encounter
--- OUTSIDE RECORDS SUMMARY | 2022-08-27 14:12 | XMS_ITS | Encounter Summary ---
:1960 Author Organization [place] Address [address] [facility] [place] [address] Care Team Providers Name Role Phone Teresita Garcia MD Primary Care Provider Teresita Garcia MD Unavailable Encounter Details Date Type Department Care Team Description 03/04/2020 Medical Correspondence [facility] [place] Scan, HOME HEALTH VISIT Health Info Mgmt Non-Provider [facility] AND CLINICS [address] [place] [phone] Social History Tobacco Use Types Packs/Day [...] do you attend islam or Not asked quaker services? Do you [...] Depression Total Score: 8 12/02/2019 2:02 PM SLAB INSPECTOR documented as of this encounter Care Teams Product Builder Relationship Specialty Start Date End Date Teresita Garcia MD PCP - General Family Practice 01/22/11 [address] [place] [address] Teresita Garcia MD Assigned PCP 11/16/16 12/28/21 [address] [place], [place] [id number] documented as of this encounter
--- OUTSIDE RECORDS SUMMARY | 2022-08-27 14:12 | XMS_ITS | Encounter Summary ---
:1960 Author Organization [place] Address [address] [place] [address] Care Team Providers Name Role Phone Teresita Garcia MD Primary Care Provider Teresita Garcia MD Unavailable Reason for Visit Reason Onset Date Comments Forms 03/12/2020 Orders / Two forms Encounter Details Date Type Department Care Team Description 03/12/2020 Telephone [facility] Teresita Garcia MD Forms (Orders / Two Clinic [place] [id number] [place] [address] forms) [address] [place] [address] [phone] Social History Tobacco Use Types Packs/Day [...] do you attend lutheran or Not asked sabianism services? Do you [...] by Kiersten De Souza MD. Faxed to [phone]. Carolynn Eng. Lather Apprentice Telephone Encounter - Shaggy Ptaelparvez Sevilla - 03/12/2020 11:51 AM CDT Reason for call: Two forms / Orders Our goal is to have forms completed within 72 hours, however some forms may require a visit or additional information. Who is the form from? Home care Where did the form come from? form was faxed in What clinic location was the form placed at? [facility] Where was the form placed? [facility] What number is listed as a contact on the form? [phone] Phone call message - patient request for a letter, form or note: Date needed: within one week Please fax to [phone] Has the patient signed a consent form for release of information? Not Applicable Type of letter, form or note: Orders Phone number to reach patient: Other phone number: [phone] documented in this encounter Plan of Treatment Not on filedocumented as of this encounter Visit Diagnoses Not on filedocumented in this encounter Additional Health Concerns Assessment Noted Time PHQ-9 Depression Total Score: 8 12/02/2019 2:02 PM FURNITURE SERVICER documented as of this encounter Care Teams Appliance Service Representative Relationship Specialty Start Date End Date Teresita Garcia MD PCP - General Family Practice 01/22/11 [address] [place] [address] Teresita Garcia MD Assigned PCP 11/16/16 12/28/21 [address] [place] [address] documented as of this encounter
--- OUTSIDE RECORDS SUMMARY | 2022-08-27 14:12 | XMS_ITS | Encounter Summary ---
:1960 Author Organization [place] Address [address] [place] [address] Care Team Providers Name Role Phone Teresita [...] do you attend judaism or Not asked advent services? Do you [...] Depression Total Score: 8 12/02/2019 2:02 PM AIR EXPORT AGENT documented as of this encounter Care Teams Integration Manager Relationship Specialty Start Date End Date Teresita Garcia MD PCP - General Family Practice 01/22/11 [address] [place] [address] Teresita Garcia MD Assigned PCP 11/16/16 12/28/21 [address] [place], [place] [id number] documented as of this encounter
--- OUTSIDE RECORDS SUMMARY | 2022-08-27 14:12 | XMS_ITS | Encounter Summary ---
:1960 Author Organization [place] Address [address] [facility] [place] [address] Care Team Providers Name Role Phone Teresita Garcia MD Primary Care Provider Teresita Garcia MD Unavailable Encounter Details Date Type Department Care Team Description 03/12/2020 Medical Correspondence [facility] [place] Scan, ORDERS [facility] Health Info Mgmt Non-Provider HEALTH/HOSP ICE Srv[facility] [address] [place] [address] Social History Tobacco Use Types [...] do you attend caodaism or Not asked buddhism services? Do you [...] Depression Total Score: 8 12/02/2019 2:02 PM METAL MACHINE OPERATOR documented as of this encounter Care Teams General Science Teacher Relationship Specialty Start Date End Date Teresita Garcia MD PCP - General Family Practice 01/22/11 [address] [place], [place] [phone] Teresita Garcia MD Assigned PCP 11/16/16 12/28/21 [address] [place], [place] [phone] documented as of this encounter
--- OUTSIDE RECORDS SUMMARY | 2022-08-27 14:12 | XMS_ITS | Encounter Summary ---
:1960 Author Organization [place] Address [address] [place] [address] Care Team Providers Name Role Phone Teresita Garcia MD Primary Care Provider Teresita Garcia MD Unavailable Reason for Visit Reason Onset Date Comments Orders 12/05/2019 [facility] Encounter Details Date Type Department Care Team Description 12/05/2019 Telephone [facility] Teresita Garcia MD Orders ([facility] [address]) [address] [place] [address] [phone] Social History Tobacco Use Types Packs/Day [...] do you attend catholic or Not asked muslim services? Do you [...] PM CDT Signed forms faxed. Malena Hankins Aids Social Worker Telephone Encounter - Malena Hankins - 12/05/2019 9:13 AM CDT Recd 3 page fax from [employer]. Please sign orders and fax to [phone]. Form in AA folder at [place]. Malena Hankins Aids Social Worker documented in this encounter Plan of Treatment Not on filedocumented as of this encounter Visit Diagnoses Not on filedocumented in this encounter Additional Health Concerns Assessment Noted Time PHQ-9 Depression Total Score: 8 12/02/2019 2:02 PM SECURITY SYSTEMS SALES REPRESENTATIVE documented as of this encounter Care Teams Community Recreation Coordinator Relationship Specialty Start Date End Date Teresita Garcia MD PCP - General Family Practice 01/22/11 [address] [place] [address] Teresita Garcia MD Assigned PCP 11/16/16 12/28/21 [address] [place] [address] documented as of this encounter
--- OUTSIDE RECORDS SUMMARY | 2022-08-27 14:12 | XMS_ITS | Encounter Summary ---
:1960 Author Organization [place] Address [address] [place] [address] Care Team Providers Name Role Phone Teresita Garcia MD Primary Care Provider Teresita Garcia MD Unavailable Reason for Visit Reason Onset Date Comments Forms 03/16/2020 Physician Order Encounter Details Date Type Department Care Team Description 03/16/[address] [facility] Teresita Garcia MD Forms (Physician Order) Clinic [id number] [place] [address] [phone] Social History Tobacco Use Types Packs/Day [...] complete. Form in the in- basket at [facility] in AA's folder. documented in this encounter Plan of Treatment Not on filedocumented as of this encounter Visit Diagnoses Not on filedocumented in this encounter Additional Health Concerns Assessment Noted Time PHQ-9 Depression Total Score: 8 12/02/2019 2:02 PM WATER MANAGER documented as of this encounter Care Teams Pillow Filler Relationship Specialty Start Date End Date Teresita Garcia MD PCP - General Family Practice 01/22/11 [address] [place], [place] [phone] Teresita Garcia MD Assigned PCP 11/16/16 12/28/21 [address] [place], [place] [id number] documented as of this encounter
--- OUTSIDE RECORDS SUMMARY | 2022-08-27 14:12 | XMS_ITS | Encounter Summary ---
:1960 Author Organization [place] Address [facility] [place] [address] Care Team Providers Name Role Phone Teresita Garcia MD Primary Care Provider Teresita Garcia MD Unavailable Reason for Visit Reason Onset Date Comments Results 04/06/2020 Encounter Details Date Type Department Care Team Description 04/06/2020 Telephone [facility] Roel Garcia MD Results [place] [address] [facility] [address] [place], [place] [phone] [place] [phone] Social History Tobacco Use Types Packs/Day Years [...] do you attend mosque or Not asked taoist services? Do you [...] Depression Total Score: 8 12/02/2019 2:02 PM SAFETY SUPERVISOR documented as of this encounter Care Teams Roof Truss Detailer Relationship Specialty Start Date End Date Teresita Garcia MD PCP - General Family Practice 01/22/11 [address] [place] [address] Teresita Garcia MD Assigned PCP 11/16/16 12/28/21 [address] [place] [address] documented as of this encounter
--- OUTSIDE RECORDS SUMMARY | 2022-08-27 14:12 | XMS_ITS | Encounter Summary ---
:1960 Author Organization [place] Address [address] [place] [address] Care Team Providers Name Role Phone Teresita Garcia MD Primary Care Provider Teresita Garcia MD Unavailable Reason for Visit Reason Onset Date Comments Forms 01/17/2020 Physician Order Encounter Details Date Type Department Care Team Description 01/17/2020 Telephone [facility] eTresita Garcia MD Forms (Physician Order) Clinic [phone] [place] [address] [phone] Social History Tobacco Use Types Packs/Day [...] do you attend mandaen or Not asked yazidi services? Do you [...] 19 altered schedules Blanca Choi Registered Nurse [facility] Telephone Encounter - Rosy Brito - 01/17/2020 10:04 AM CDT Received 2 page fax for Physician Order fro Dr Garcia to complete. Form in the in- basket at [facility] in AA's folder. documented in this encounter Plan of Treatment Not on filedocumented as of this encounter Visit Diagnoses Not on filedocumented in this encounter Additional Health Concerns Assessment Noted Time PHQ-9 Depression Total Score: 8 12/02/2019 2:02 PM LAST PULLER documented as of this encounter Care Teams Medical Technical Writer Relationship Specialty Start Date End Date Teresita Garcia MD PCP - General Family Practice 01/22/11 [address] [place], [place] [phone] Teresita Garcia MD Assigned PCP 11/16/16 12/28/21 [address] [place], [place] [phone] documented as of this encounter
--- OUTSIDE RECORDS SUMMARY | 2022-08-27 14:12 | XMS_ITS | Encounter Summary ---
:1960 Author Organization [place] Address [address] [facility] [place] [address] Care Team Providers Name Role Phone Teresita Garcia MD Primary Care Provider Teresita Garcia MD Unavailable Reason for Visit Diagnostic Imaging Dexa (Routine) - Closed Specialty Diagnoses / Procedures Referred By Contact Refer red To Contact Diagnoses Osteoporosis without current pathological fracture, unspecified osteoporosis type Teresita Garcia MD Procedures DX Hip/Pelvis/Spine [address] [place], [place] [address] Referral ID Status Reason Start Date Expiration Date Visits Requ ested Visits Authorized [id number] Closed 12/03/2019 12/02/2020 1 1 Encounter Details Date Type Department Care Team Description 04/04/2020 Ancillary Procedure [facility] Teresita Garcia MD Osteoporosis without Clinic [place] [id number] [place] [address] current pathological [address] [facility] AV fracture, unspecified [place], osteoporosis [place] [address] [place] [address] [place], [place] [phone] (Work) Social History Tobacco Use Types [...] do you attend methodist or Not asked jain services? Do you [...] Narrative 04/06/2020 1:21 PM CDT BONE DENSITOMETRY [address] [address] 04/04/2020 ?? PATIENT: Dejuan Rodriguez CHART: [id number] : ??1960 AGE: ??59 year old SEX: ??male REFERRING PROVIDER: Teresita Garcia MD ?? PROCEDURE: ??Bone density scanning was p erformed using DXA technology of the lumbar spine and hip. ??Scanning was performed on a [employer] scanner. ??Reporting is completed in the form of a T-score. ??The T-score represents the standard deviation from p eak bone mass based on a young healthy adult. ?? REFERENCE T-SCORES: ?Normal ?-1.0 and greater ?Osteopenia ? Between -1. 0 and -2.5 ?Osteoporosis ? -2.5 and less ? 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
--- OUTSIDE RECORDS SUMMARY | 2022-08-27 14:12 | XMS_ITS | Encounter Summary ---
:1960 Author Organization [place] Address [address] [place] [address] Care Team Providers Name Role Phone Teresita Garcia MD Primary Care Provider Teresita Garcia MD Unavailable Encounter Details Date Type Department Care Team Description 03/15/2020 Medical Correspondence [facility] Non-Provider COMMUNICATI ON NOTE Srvcs [facility] [address] [facility] [address] Social History Tobacco Use Types [...] do you attend temple or Not asked sikhism services? Do you [...] Depression Total Score: 8 12/02/2019 2:02 PM LONG TERM CARE PHLEBOTOMIST documented as of this encounter Care Teams Jack Strip Assembler Relationship Specialty Start Date End Date Teresita Garcia MD PCP - General Family Practice 01/22/11 [address] [place], [place] [phone] Teresita Garcia MD Assigned PCP 11/16/16 12/28/21 [address] [place], [place] [phone] documented as of this encounter
--- OUTSIDE RECORDS SUMMARY | 2022-08-27 14:12 | XMS_ITS | Encounter Summary ---
:1960 Author Organization [place] Address [address] [place] [address] Care Team Providers Name Role Phone Teresita Garcia MD Primary Care Provider Teresita Garcia MD Unavailable Reason for Visit Reason Onset Date Comments Orders 12/19/2019 [facility] Encounter Details Date Type Department Care Team Description 12/19/2019 Telephone [facility] Teresita Garcia MD Orders ([facility] [address]) [address] [place] [address] [phone] Social History Tobacco Use Types Packs/Day [...] do you attend uatsdin or Not asked zoroastrian services? Do you [...] AM CDT Signed forms faxed. Malena Hankins Drafter Civil Telephone Encounter - Malena Hankins - 12/19/2019 3:12 PM CDT Recd 6 page fax from [facility]. Please fax Plan of Care orders to [phone]. Form in AA folder at [place] Malena Hankins Drafter Civil documented in this encounter Plan of Treatment Not on filedocumented as of this encounter Visit Diagnoses Not on filedocumented in this encounter Additional Health Concerns Assessment Noted Time PHQ-9 Depression Total Score: 8 12/02/2019 2:02 PM SUPPLY TECH documented as of this encounter Care Teams Computer Networking Instructor Adjunct Relationship Specialty Start Date End Date Teresita Garcia MD PCP - General Family Practice 01/22/11 [address] [place] [address] Teresita Garcia MD Assigned PCP 11/16/16 12/28/21 [address] [place] [address] documented as of this encounter
--- OUTSIDE RECORDS SUMMARY | 2022-08-27 14:12 | XMS_ITS | Encounter Summary ---
:1960 Author Organization [place] Address [address] [facility] [place] [address] Care Team Providers Name Role Phone Teresita Garcia MD Primary Care Provider Teresita Garcia MD Unavailable Encounter Details Date Type Department Care Team Description 01/30/2020 Medical Correspondence [facility] Scan, PLAN OF CARE [employer] [facility] Non-Provider HOME HEALTH /HOSPICE Srvcs [address] [place] [address] Social History Tobacco Use Types [...] do you attend confucianist or Not asked confucianism services? Do you [...] Total Score: 8 12/02/2019 2:02 PM SUPERVISOR GAS METER REPAIR documented as of this encounter Care Teams Grade Setter Relationship Specialty Start Date End Date Teresita Garcia MD PCP - General Family Practice 01/22/11 [address] [place], [place] [phone] Teresita Garcia MD Assigned PCP 11/16/16 12/28/21 [address] [place], [place] [phone] documented as of this encounter
--- OUTSIDE RECORDS SUMMARY | 2022-08-27 14:12 | XMS_ITS | Encounter Summary ---
:1960 Author Organization [place] Address [address] [facility] [address] Care Team Providers Name Role Phone Teresita Garcia MD Primary Care Provider Teresita Garcia MD Unavailable Encounter Details Date Type Department Care Team Description 01/17/2020 Medical Correspondence [facility] Scan, PLAN OF CARE [employer] [facility] Non-Provider HOME HEALTH /HOSPICE Srvcs [address] [place] [address] Social History Tobacco Use [...] do you attend taoism or Not asked confucianist services? Do you [...] Depression Total Score: 8 12/02/2019 2:02 PM LEGAL OPERATIONS MANAGER documented as of this encounter Care Teams Geothermal Powerplant Supervisor Relationship Specialty Start Date End Date Teresita Garcia MD PCP - General Family Practice 01/22/11 [address] [place], [place] [phone] Teresita Garcia MD Assigned PCP 11/16/16 12/28/21 [address] [place], [place] [phone] documented as of this encounter
--- OUTSIDE RECORDS SUMMARY | 2022-08-27 14:12 | XMS_ITS | Encounter Summary ---
:1960 Author Organization [place] Address [address] [facility] [place] [address] Care Team Providers Name Role Phone Teresita [...] do you attend mandaeism or Not asked temple services? Do you [...] Total Score: 8 12/02/2019 2:02 PM VEHICLE SALES PROFESSIONAL documented as of this encounter Care Teams Client Relations Representative Relationship Specialty Start Date End Date Teresita Garcia MD PCP - General Family Practice 01/22/11 [address] [place] [address] Teresita Garcia MD Assigned PCP 11/16/16 12/28/21 [address] [place], [place] [phone] documented as of this encounter
--- OUTSIDE RECORDS SUMMARY | 2022-08-27 14:12 | XMS_ITS | Encounter Summary ---
:1960 Author Organization [place] Address [address] [place] [address] Care Team Providers Name Role Phone Teresita Garcia MD Primary Care Provider Teresita Garcia MD Unavailable Encounter Details Date Type Department Care Team Description 12/08/2019 Medical Correspondence [facility] Scan, [facility] CLINICS [address] [place] [address] Social History Tobacco Use Types [...] or relatives? How often do you attend advent or Not asked christian services? Do you belong to any clubs or Not asked organizations such as advent groups, unions, fraternal or athletic groups, or [...] Depression Total Score: 8 12/02/2019 2:02 PM TELEPHONE WORKER documented as of this encounter Care Teams Hogshead Liner Relationship Specialty Start Date End Date Teresita Garcia MD PCP - General Family Practice 01/22/11 [address] [place] [address] Teresita Garcia MD Assigned PCP 11/16/16 12/28/21 [address] [place] [address] documented as of this encounter"
--- OUTSIDE RECORDS SUMMARY | 2022-08-27 14:12 | XMS_ITS | Encounter Summary ---
:1960 Author Organization [place] Address [address] [facility] [place] [address] Care Team Providers Name Role Phone Teresita Garcia MD Primary Care Provider Teresita Garcia MD Unavailable Reason for Visit Reason Onset Date Comments Home Health 12/07/2019 Requesting verbal ap proval Encounter Details Date Type Department Care Team Description 12/07/2019 Telephone [facility] Teresita Garcia MD [facility] (Requesting Clinic [place] [id number] [place] [address] verbal approval) [id number] [place] [phone] Social History Tobacco Use Types [...] do you attend shinto or Not asked yarsani services? Do you [...] advise. Ok to call Lili back at [phone] Perez Almanzar MA documented in this encounter Plan of Treatment Not on filedocumented as of this encounter Visit Diagnoses Not on filedocumented in this encounter Additional Health Concerns Assessment Noted Time PHQ-9 Depression Total Score: 8 12/02/2019 2:02 PM CROZE CUTTER HELPER documented as of this encounter Care Teams Grain Elevator Superintendent Relationship Specialty Start Date End Date Teresita Garcia MD PCP - General Family Practice 01/22/11 [address] [place] [address] Teresita Garcia MD Assigned PCP 11/16/16 12/28/21 [address] [place] [address] documented as of this encounter
--- OUTSIDE RECORDS SUMMARY | 2022-08-27 14:12 | XMS_ITS | Encounter Summary ---
:1960 Author Organization [place] Address [address] [facility] [place] [address] Care Team Providers Name Role Phone Teresita Garcia MD Primary Care Provider Teresita Garcia MD Unavailable Encounter Details Date Type Department Care Team Description 04/10/2020 Medical Correspondence [facility] Scan, PLAN OF CARE [employer] [facility] Non-Provider HOME HEALTH /HOSPICE Sr[facility] [address] [place] [address] Social History Tobacco Use Types [...] do you attend mu-ism or Not asked denominational services? Do you [...] Depression Total Score: 8 12/02/2019 2:02 PM INVESTMENT OFFICER documented as of this encounter Care Teams Power Engineer Relationship Specialty Start Date End Date Teresita Garcia MD PCP - General Family Practice 01/22/11 [address] [place], [place] [phone] Teresita Garcia MD Assigned PCP 11/16/16 12/28/21 [address] [place], [place] [id number] documented as of this encounter
--- OUTSIDE RECORDS SUMMARY | 2022-08-27 14:12 | XMS_ITS | Encounter Summary ---
:1960 Author Organization [place] Address [address] [facility] [place] [address] Care Team Providers Name Role Phone Teresita Garcia MD Primary Care Provider Teresita Garcia MD Unavailable Reason for Visit Reason Onset Date Comments Forms 01/03/2020 Physician Orders Encounter Details Date Type Department Care Team Description 01/03/2020 Telephone [facility] Teresita Garcia MD Forms (Physician Clinic [place] [id number] [place] [address] Orders) [address] [place], [place] [phone] Social History Tobacco Use Types Packs/Day [...] do you attend scientology or Not asked confucianist services? Do you [...] to complete. Form in the in-basket at [facility] [place] in AA's folder. documented in this encounter Plan of Treatment Not on filedocumented as of this encounter Visit Diagnoses Not on filedocumented in this encounter Additional Health Concerns Assessment Noted Time PHQ-9 Depression Total Score: 8 12/02/2019 2:02 PM FACILITATOR documented as of this encounter Care Teams Tearoom Hostess Relationship Specialty Start Date End Date Teresita Garcia MD PCP - General Family Practice 01/22/11 [address] [place] [address] Teresita Garcia MD Assigned PCP 11/16/16 12/28/21 [address] [place] [address] documented as of this encounter
--- OUTSIDE RECORDS SUMMARY | 2022-08-27 14:13 | XMS_ITS | Encounter Summary ---
:1960 Author Organization [place] Address [address] [place] [address] Care Team Providers Name Role Phone Teresita Garcia MD Primary Care Provider Teresita Garcia MD Unavailable Reason for Visit Reason Onset Date Comments Forms 11/30/2019 Durable Medical Equi pment Encounter Details Date Type Department Care Team Description 11/30/2019 Telephone [facility] Teresita Garcia MD Forms ([facility] [place] [address] Equipment) [address] [place], [place] [phone] Social History Tobacco Use Types Packs/Day [...] do you attend mormonism or Not asked mandaen services? Do you [...] PM CST Form faxed, 11/30/2019 Jackie Brito/AWILDA WORKER Telephone Encounter - Rosy Brito - 11/30/2019 9:23 AM CST Received 2 page fax for Durable Medical Equipment for Dr Garcia to complete. Form in the in-basket at [facility] [employer] [facility] in AA's folder. WORKER documented in this encounter Plan of Treatment Not on filedocumented as of this encounter Visit Diagnoses Not on filedocumented in this encounter Additional Health Concerns Assessment Noted Time PHQ-9 Depression Total Score: 5 11/25/2018 3:25 PM FARM WORKER documented as of this encounter Care Teams Pie Baker Relationship Specialty Start Date End Date Teresita Garcia MD PCP - General Family Practice 01/22/11 [address] [place] [address] Teresita Garcia MD Assigned PCP 11/16/16 12/28/21 [address] [place], [place] [phone] documented as of this encounter
--- OUTSIDE RECORDS SUMMARY | 2022-08-27 14:13 | XMS_ITS | Encounter Summary ---
:1960 Author Organization [place] Address [address] [facility] [place] [address] Care Team Providers Name Role Phone Teresita [...] do you attend mu-ism or Not asked episcopalian services? Do you [...] Depression Total Score: 5 11/25/2018 3:25 PM TESTING ENGINEER documented as of this encounter Care Teams Product Sales Representative Relationship Specialty Start Date End Date Teresita Garcia MD PCP - General Family Practice 01/22/11 [address] [place] [address] Teresita Garcia MD Assigned PCP 11/16/16 12/28/21 [address] [place] [address] documented as of this encounter
--- OUTSIDE RECORDS SUMMARY | 2022-08-27 14:13 | XMS_ITS | Encounter Summary ---
:1960 Author Organization [place] Address [address] [facility] [place] [address] Care Team Providers Name Role Phone Teresita Garcia MD Primary Care Provider Teresita Garcia MD Unavailable Reason for Referral Diagnostic Imaging Dexa (Routine) - Closed Specialty Diagnoses / Procedures Referred By Contact Refer red To Contact Diagnoses Osteoporosis without current pathological fracture, unspecified osteoporosis type Teresita Garcia MD Procedures DX Hip/Pelvis/Spine [address] [place], [place] [address] Referral ID Status Reason Start Date Expiration Date Visits Requ ested Visits Authorized [id number] Closed 12/03/2019 12/02/2020 1 1 N RESOURCES COORDINATOR Reason for Visit Reason Onset Date Comments Radiology Visit 12/02/2019 need for Encounter Details Date Type Department Care Team Description 12/02/2019 Telephone [facility] Teresita Garcia MD Radiology Visit (need Clinic [place] [id number] [place] [address] for) [address] [place] [phone] Social History Tobacco Use Types Packs/Day Years [...] do you attend baptism or Not asked roman catholic services? Do you belong to any clubs or Not asked organizations such as baptism groups, unions, [employer] or athletic groups, or school groups? How [...] Thursday. Order t'd up. Joselin Najera RN N RESOURCES COORDINATOR Telephone Encounter - Teresita Garcia MD - 12/02/2019 3:03 PM CST I looked at the records and last Dexa scan I've seen was in 12/2016, so it is not a bad idea to repeat his Dexa scan this year, if he is ok with it. Teresita Garcia MD [facility] [phone] N RESOURCES COORDINATOR documented in this encounter Plan of Treatment Not on filedocumented as of this encounter Results DX Hip/Pelvis/Spine (04/04/2020 1:36 PM CDT) Anatomical Region Laterality Modality Dexa Bone Mineral Density Specimen (Source) Anatomical Location Collection Method / Collectio n Time Received Time / Laterality Volume Narrative 04/06/2020 1:21 PM CDT BONE DENSITOMETRY [address] [address] 04/04/2020 ?? PATIENT: Dejuan Rodriguez CHART: [id number] : ??1960 AGE: ??59 year old SEX: ??male REFERRING PROVIDER: Teresita Garcia MD ?? PROCEDURE: ??Bone density scanning was p erformed using DXA technology of the lumbar spine and hip. ??Scanning was performed on a [employer] scanner. ??Reporting is completed in the form of a T-score. ??The T-score represents the standard deviation from p eak bone mass based on a young healthy adult. ?? REFERENCE T-SCORES: ?Normal ?-1.0 and greater ?Osteopenia ? Between -1. 0 and -2.5 ?Osteoporosis ? -2.5 and less ? 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
--- OUTSIDE RECORDS SUMMARY | 2022-08-27 14:13 | XMS_ITS | Encounter Summary ---
:1960 Author Organization [place] Address [facility] [place] [address] Care Team Providers Name Role Phone Teresita Garcia MD Primary Care Provider Teresita Garcia MD Unavailable Encounter Details Date Type Department Care Team Description 11/17/2019 Telephone [facility] Roel Garcia MD [place] [phone] Social History Tobacco Use Types Packs/Day Years [...] do you attend episcopal or Not asked mu-ism services? Do you [...] order given to Home care.-Shanda Soto, EMTB TANCE ABUSE SPECIALIST documented in this encounter Plan of Treatment Not on filedocumented as of this encounter Visit Diagnoses Not on filedocumented in this encounter Additional Health Concerns Assessment Noted Time PHQ-9 Depression Total Score: 5 11/25/2018 3:25 PM SUBSTANCE ABUSE SPECIALIST documented as of this encounter Care Teams Disability Insurance Hearing Officer Relationship Specialty Start Date End Date Teresita Garcia MD PCP - General Family Practice 01/22/11 [address] [place], [place] [phone] Teresita Garcia MD Assigned PCP 11/16/16 12/28/21 [address] [place] [address] documented as of this encounter
--- OUTSIDE RECORDS SUMMARY | 2022-08-27 14:13 | XMS_ITS | Encounter Summary ---
:1960 Author Organization [place] Address [address] [facility] [place] [address] Care Team Providers Name Role Phone Teresita Garcia MD Primary Care Provider Teresita Garcia MD Unavailable Teresita Garcia MD Unavailable Reason for Visit Reason Comments Pre-Op Exam Encounter Details Date Type Department Care Team Description 11/25/2018 Office Visit [facility] Teresita Garcia MD Preop general physical exam (Primary Dx) ; Clinic [address] Osteoporosis without current pathologica l fracture, unspecified osteoporosis type [id number] [place] [phone] Social History Tobacco Use Types Packs/Day [...] do you attend quaker or Not asked latter day services? Do [...] Comments Blood Pressure 121/83 11/25/2018 3:16 PM DEDICATED TRUCK DRIVER Pulse 98 11/25/2018 3:16 PM DEDICATED TRUCK DRIVER Temperature 36.7 ??C (98.1 ??F) 11/25/2018 3:16 PM DEDICATED TRUCK DRIVER Respiratory Rate 20 11/25/2018 3:16 PM DEDICATED TRUCK DRIVER Oxygen Saturation 97% 11/25/2018 3:16 PM DEDICATED TRUCK DRIVER Inhaled Oxygen Concentration - - Weight 78 kg (172 lb) 11/25/2018 3:16 PM DEDICATED TRUCK DRIVER Height 171.5 cm (5' 7.5) 11/25/2018 3:16 PM DEDICATED TRUCK DRIVER Body Mass Index 26.54 11/25/2018 3:16 PM DEDICATED TRUCK DRIVER documented in this encounter Patient Instructions Patient [...] and have clean sheets on your bed. CATED TRUCK DRIVER documented in this encounter Progress Notes Teresita Garcia MD - 11/25/2018 3:00 PM CST [address] [address] Dept: [phone] PRE-OP EVALUATION: Today's date: 11/25/2018 Dejuan Rodriguez (: 1960) presents for pre-operative evaluation assessment as requested byDr. Ruiz. He requires evaluation and anesthesia risk assessment prior to undergoing surgery/procedure for treatment of bladder . Proposed Surgery/ Procedure: remove bladder stone Date of Surgery/ Procedure: 12/02/18 Time of Surgery/ Procedure: 11:30 Hospital/Surgical Facility: [facility] Primary Physician: Teresita Garcia Type of [...] process. Provider to review and confirm.) ??? Sgjp-Mhpwg-Hsdqdli disease 05/14/2011 Priority: Medium ??? Atopic rhinitis [...] Multiple sclerosis (H) sees neurology at [facility] ??? Osteoporosis 01/20/2017 In the spine. [...] evaluation report is provided to requesting physician. [place] Preop Guidelines Revised Cardiac Risk Index CATED TRUCK DRIVER documented in this encounter Plan of Treatment Not on filedocumented as of this encounter Procedures Procedure Name Priority Date/Time Associated Diagnosis Comme nts VITAMIN D Routine 11/25/2018 3:43 PM Osteoporosis without R esults for this DEFICIENCY DEDICATED TRUCK DRIVER current pathological procedu re are in SCREENING fracture, unspecified the re sults osteoporosis type section. CREATININE Routine 11/25/2018 3:43 PM Preop general Results for this DEDICATED TRUCK DRIVER physical exam procedure are in the results section. documented in this encounter Results Creatinine (11/25/2018 3:43 PM DEDICATED TRUCK DRIVER) P athologist Signature Creatinine 0.99 0.66 - 11/26/2018 [facility] 1.25 mg/dL 1:15 PM [facility] GFR Estimate 84 >60 11/26/2018 [facility] mL/min/{1. 1:15 PM [facility] 73_m2} [facility] Comment: Non GFR Calc Starting 09/14/2018, serum creatinine ba sed estimated GFR (eGFR) will be calculated using the Chronic Kidney Dise ase Epidemiology Collaboration (CKD-EPI) equation. GFR Estimate If >90 >60 mL/min/{1.73_m2} 11/26/2018 1: 15 PM [facility] Black [facility] Comment: GFR Calc Starting 09/14/2018, serum creatinine ba sed estimated GFR (eGFR) will be calculated using the Chronic Kidney Dise ase Epidemiology Collaboration (CKD-EPI) equation. Specimen Anatomical Collection Method Collection Time Receive d Time (Source) Location / / Volume Laterality Blood specimen 11/25/2018 3:43 PM 019 3:44 (specimen) DEDICATED TRUCK DRIVER PM DEDICATED TRUCK DRIVER Teresita Garcia MD LAB - BLOOD ORDERABLES Performing Organization Address City/State/ZIP Code Phon e Number [facility] [address] [place] [address] Vitamin D Deficiency (11/25/2018 3:43 PM DEDICATED TRUCK DRIVER) athologist Signature Vitamin D 58 20 - 75 11/26/2018 [facility] ug/L 4:38 PM DEDICATED TRUCK DRIVER ID MEDICAL screening [facility] Comment: Season, race, dietary intake, and treatm ent affect the concentration of 60-vqnayiv-Tyiswwc D. Values may decreas e during winter [...] specimen 11/25/2018 3:43 PM 019 3:44 (specimen) DEDICATED TRUCK DRIVER PM DEDICATED TRUCK DRIVER Teresita Garcia MD LAB - BLOOD ORDERABLES Performing Organization Address City/State/ZIP Code Phon e Number [facility] [address] [place] [address] [facility] documented in this encounter Visit Diagnoses Diagnosis Preop general physical exam - Primary Other specified pre-operative examinatio n Osteoporosis without current pathologica l fracture, unspecified osteoporosis type documented in this encounter Additional Health Concerns Assessment Noted Time PHQ-9 Depression Total Score: 5 11/25/2018 3:25 PM DEDICATED TRUCK DRIVER documented as of this encounter Care Teams Hydropress Operator Relationship Specialty Start Date End Date Teresita Garcia MD PCP - General Family Practice 01/22/11 [address] [place] [address] Teresita Garcia MD PCP - Assigned PCP 11/16/16 11/30/18 [address] [place] [address] Teresita Garcia MD Assigned PCP 11/16/16 12/28/21 [address] [place] [address] documented as of this encounter
--- OUTSIDE RECORDS SUMMARY | 2022-08-27 14:13 | XMS_ITS | Encounter Summary ---
:1960 Author Organization [place] Address [facility] [place] [address] Care Team Providers Name Role Phone Teresita Garcia MD Primary Care Provider Teresita Garcia MD Unavailable Teresita Garcia MD Unavailable Reason for Visit Reason Comments Clinic Care Coordination - Initial ccsw Encounter Details Date Type Department Care Team Description 11/25/2017 Care Coordination [facility] Teresita Garcia MD Clinic Care Care Coordination [address] [facility] Coordination - [address] [place] [address] ([facility] w) [facility] [address] [place] [address] [phone] [address] (Work) [phone] Social History Tobacco Use Types Packs/Day Years [...] unable to contact Bailey Boyd Social Work Produce Assistant, RODERICK MCLAUGHLIN P:[phone] [facility] Bailey Boyd LGSW - 12/03/2017 3:15 PM CST Clinic Care Coordination Contact [facility]/Voicemail Clinical Data: pt returned this CCSWs call and left a voicemail. CCSW attempted to reach him Outreach attempted x 1. Left message on voicemail with call back information and requested return call. Plan: enrollment coordinator will try again in 3-5 business days if he does not call back. Bailey Boyd Social Work Produce Assistant, ARNOLDO PHOTOENGRAVING PRINTER [facility]: [facility] P:[phone] / Signed December 03, 2017 TICE MACHINE OPERATOR Bailey Boyd LGSW - 12/03/2017 10:35 AM CST Clinic Care Coordination Contact [place]/Voicemail Clinical Data: see below Outreach attempted x 2. Left message on voicemail with call back information and requested return call. Plan: enrollment coordinator will send a [facility] letter and access plan and review in 2-3 weeks. Bailey Boyd Social Work Produce Assistant, ARNOLDO PHOTOENGRAVING PRINTER [facility]: [facility] P:[phone] / Signed December 03, 2017 TICE MACHINE OPERATOR Bailye Boyd LGSW - 11/25/2017 9:39 AM CST Clinic Care Coordination Contact [facility]/Voicemail Clinical Data: Has MS. Needing help in the home Outreach attempted x 1. Left message on voicemail with call back information and requested return call. Plan: enrollment coordinator will try again in 2-3 business days. Bailey Boyd, Social Work Produce Assistant, OPEN SOAPER TENDER, PHOTOENGRAVING PRINTER [facility] [place] [place] [place] P:[phone] / Signed November 25, 2017 TICE MACHINE OPERATOR documented in this encounter Plan of Treatment Not on filedocumented as of this encounter Visit Diagnoses Not on filedocumented in this encounter Additional Health Concerns Assessment Noted Time PHQ-9 Depression Total Score: 2 11/25/2017 8:11 AM POULTICE MACHINE OPERATOR documented as of this encounter Care Teams Manager Fine Dining Relationship Specialty Start Date End Date Teresita Garcia MD PCP - General Family Practice 01/22/11 [address] [place] [address] Teresita Garcia MD PCP - Assigned PCP 11/16/16 11/30/18 [address] [place] [address] Teresita Garcia MD Assigned PCP 11/16/16 12/28/21 [address] [place] [address] documented as of this encounter
--- OUTSIDE RECORDS SUMMARY | 2022-08-27 14:13 | XMS_ITS | Encounter Summary ---
:1960 Author Organization [place] Address [address] [place] [address] Care Team Providers Name Role Phone Teresita Garcia MD Primary Care Provider Teresita Garcia MD Unavailable Reason for Visit Reason Onset Date Comments Refill Request 08/19/2019 Encounter Details Date Type Department Care Team Description 08/19/2019 Refill [facility] Roel Garcia MD Refill Request [address] [address] [place] [phone] Social History Tobacco Use Types Packs/Day Years [...] do you attend synagogue or Not asked mu-ism services? Do you [...] Depression Total Score: 5 11/25/2018 3:25 PM STARCH CRAB documented as of this encounter Care Teams As400 Programmer Relationship Specialty Start Date End Date Teresita Garcia MD PCP - General Family Practice 01/22/11 [address] [place], [place] [phone] Teresita Garcia MD Assigned PCP 11/16/16 12/28/21 [address] [place] [address] documented as of this encounter
--- OUTSIDE RECORDS SUMMARY | 2022-08-27 14:13 | XMS_ITS | Encounter Summary ---
:1960 Author Organization [place] Address [address] [facility] [place] [address] Care Team Providers Name Role Phone Teresita Garcia MD Primary Care Provider Teresita Garcia MD Unavailable Teresita Garcia MD Unavailable Reason for Visit Reason Onset Date Comments Refill Request 07/09/2018 alendronate (FOSAMAX ) 70 MG tablet Encounter Details Date Type Department Care Team Description 07/09/2018 Refill [facility] Roel Garcia MD Refill Request [address] (alendronate (FOSAMAX) [address] [place] [address] 70 MG tablet) [place] [address] [phone] Social History Tobacco Use Types Packs/Day Years [...] do you attend restoration or Not asked shinto services? Do you [...] Depression Total Score: 2 11/25/2017 8:11 AM CORPORATE TRAINING MANAGER documented as of this encounter Care Teams Hand Crocheter Relationship Specialty Start Date End Date Teresita Garcia MD PCP - General Family Practice 01/22/11 [address] [place], [place] [phone] Teresita Garcia MD PCP - Assigned PCP 11/16/16 11/30/18 [address] [place] [address] Teresita Garcia MD Assigned PCP 11/16/16 12/28/21 [address] [place], [place] [phone] documented as of this encounter
--- OUTSIDE RECORDS SUMMARY | 2022-08-27 14:13 | XMS_ITS | Encounter Summary ---
:1960 Author Organization [place] Address [address] [facility] [place] [address] Care Team Providers Name Role Phone Teresita Garcia MD Primary Care Provider Teresita Garcia MD Unavailable Reason for Visit Reason Comments Hospital F/U Encounter Details Date Type Department Care Team Description 12/02/2019 Office Visit [facility] Teresita Garcia MD Urinary tract Clinic [place] [id number] [place] [address] infection associated [address] [place], [place] [address] urethral catheter, [phone] subsequent encounter (Primary Dx) [...] do you attend confucianism or Not asked confucianist services? Do you [...] Comments Blood Pressure 121/78 12/02/2019 1:07 PM ADMINISTRATION INTERNSHIP Pulse 98 12/02/2019 1:07 PM ADMINISTRATION INTERNSHIP Temperature 36.6 ??C (97.8 ??F) 12/02/2019 1:07 PM ADMINISTRATION INTERNSHIP Respiratory Rate 16 12/02/2019 1:07 PM ADMINISTRATION INTERNSHIP Oxygen Saturation 99% 12/02/2019 1:07 PM ADMINISTRATION INTERNSHIP Inhaled Oxygen Concentration - - Weight 79.4 kg (175 lb) 12/02/2019 1:07 PM ADMINISTRATION INTERNSHIP Height - - Body Mass Index 27 11/25/2018 3:16 PM ADMINISTRATION INTERNSHIP documented in this encounter Progress Notes Teresita Garcia MD - 12/02/2019 1:00 PM CST Subjective Dejuan Rodriguez is a 58 year old male who presents to clinic today for the following health issues: [facility] Hospital Follow-up Visit: Hospital/Long Term/ Rehab Facility: [facility] Date of Admission: 11/24/2019 Date of Discharge: 11/29/2019 Reason(s) for Admission: UTI Problems taking medications regularly: None Medication changes since discharge: Doxycycline and changed Gabapentin Problems adhering to non-medication therapy: None Summary of hospitalization: [facility] discharge summary reviewed Diagnostic Tests/Treatments reviewed. Follow up needed: with Neurology and Urology. Other Healthcare Providers Involved in Patient???s Care: REAL ESTATE REP has been helping him during the day. [...] this visit: Type of Medical Decision Making Dpha-xh-Cehc Visit within 7 Days of discharge Vmzw-rt-Cmqe Visit within 14 days of discharge Moderate Complexity [id number] [place] Complex[place] [id number] Patient Active Problem List Diagnosis ??? MS (multiple sclerosis) (H) ??? CARDIOVASCULAR SCREENING; LDL GOAL LESS THAN 160 ??? Cannabis abuse ??? Baclofen pump failure ??? Spasticity ??? Seborrheic dermatitis of scalp ??? Status post hip replacement ??? Ehbv-Fdcqj-Zdezkal disease ??? Atopic rhinitis ??? Major depressive [...] 6 months (around 06/03/2020). Teresita Garcia MD [facility] [employer] documented in this encounter Plan of Treatment Not on filedocumented as of this encounter Visit Diagnoses Diagnosis Urinary tract infection associated with indwelling urethral catheter, subsequent encounter - Primary documented in this encounter Additional Health Concerns Assessment Noted Time PHQ-9 Depression Total Score: 8 12/02/2019 2:02 PM ADMINISTRATION INTERNSHIP documented as of this encounter Care Teams Manager Services Relationship Specialty Start Date End Date Teresita Garcia MD PCP - General Family Practice 01/22/11 [address] [place] [address] Teresita Garcia MD Assigned PCP 11/16/16 12/28/21 [address] [place] [address] documented as of this encounter
--- OUTSIDE RECORDS SUMMARY | 2022-08-27 14:13 | XMS_ITS | Encounter Summary ---
:1960 Author Organization [place] Address [address] [facility] [place] [place] [address] Care Team Providers Name Role Phone Teresita Garcia MD Primary Care Provider Teresita Garcia MD Unavailable Encounter Details Date Type Department Care Team Description 11/21/2019 Medical Correspondence [facility] Scan, PLAN OF CARE [employer] [facility] Non-Provider HOME HEALTH /HOSPICE Srvcs [address] [place] [address] Social History Tobacco Use Types [...] do you attend lutheran or Not asked jewish services? Do you [...] Depression Total Score: 5 11/25/2018 3:25 PM PARTS ASSEMBLER documented as of this encounter Care Teams Blood Coordinator Relationship Specialty Start Date End Date Teresita Garcia MD PCP - General Family Practice 01/22/11 [address] [place], [place] [phone] Teresita Garcia MD Assigned PCP 11/16/16 12/28/21 [address] [place], [place] [phone] documented as of this encounter
--- OUTSIDE RECORDS SUMMARY | 2022-08-27 14:13 | XMS_ITS | Encounter Summary ---
:1960 Author Organization [place] Address [address] [facility] [place] [address] Care Team Providers Name Role Phone Teresita Garcia MD Primary Care Provider Teresita Garcia MD Unavailable Reason for Visit Reason Onset Date Comments Forms 11/25/2019 Additional Orders-Ph ysical Therapy Encounter Details Date Type Department Care Team Description 11/25/2019 Telephone [facility] Teresita Garcia MD Forms (Additional Clinic [place] [id number] [place] [address] Orders-Physical [address] [place], [place] Therapy) [place], [place] [phone] Social History Tobacco Use Types Packs/Day [...] do you attend catholic or Not asked uatsdin services? Do you [...] Form completed and faxed, 11/28/2019 ,Jackie Brito/AWILDA MING PROFESSOR Telephone Encounter - Rosy Brito - 11/25/2019 8:12 AM CST Received 2 page fax for Additional Orders-Physical Therapy for Dr Garcia to complete. Form in the in-basket at [facility] in AA's folder. MING PROFESSOR documented in this encounter Plan of Treatment Not on filedocumented as of this encounter Visit Diagnoses Not on filedocumented in this encounter Additional Health Concerns Assessment Noted Time PHQ-9 Depression Total Score: 5 11/25/2018 3:25 PM SWIMMING PROFESSOR documented as of this encounter Care Teams Rail Car Repair Carman Relationship Specialty Start Date End Date Teresita Garcia MD PCP - General Family Practice 01/22/11 [address] [place] [address] Teresita Garcia MD Assigned PCP 11/16/16 12/28/21 [address] [place] [address] documented as of this encounter
--- OUTSIDE RECORDS SUMMARY | 2022-08-27 14:13 | XMS_ITS | Encounter Summary ---
:1960 Author Organization [place] Address [facility] [place] [address] Care Team Providers Name Role Phone Teresita Garcia MD Primary Care Provider Teresita Garcia MD Unavailable Reason for Visit Reason Onset Date Comments Orders 11/22/2019 Encounter Details Date Type Department Care Team Description 11/22/2019 Telephone [facility] Roel Garcia MD Orders [place] [id number] [place] [address] [place], [place] [address] [place] [address] [phone] Social History Tobacco Use Types Packs/Day Years [...] do you attend rastafari or Not asked advent services? Do you [...] 2:00 PM CST RN placed call to [facility] received confidential voicemail Verbal orders provided for : PT 2 x week x 3 weeks for transfer training and exercise CLIENT CARE REPRESENTATIVE 1 x week x 3 weeks to assist with showering OT 1 x If questions / concerns return call to clinic nurse Advised to fax for written signature from pcp Blanca Choi, Registered Nurse [facility] ' ING PROCESS TECHNICIAN Telephone Encounter - Marlen Laird - 11/22/2019 11:46 AM CST Order/Referral Request: Who is requesting: Jayde pedroza [facility] Orders being requested: Admitted to home [...] Okay to leave detailed message? Yes at [facility] phone number: [phone] Routing ING PROCESS TECHNICIAN documented in this encounter Plan of Treatment Not on filedocumented as of this encounter Visit Diagnoses Not on filedocumented in this encounter Additional Health Concerns Assessment Noted Time PHQ-9 Depression Total Score: 5 11/25/2018 3:25 PM MOLDING PROCESS TECHNICIAN documented as of this encounter Care Teams Airconditioning Engineer Relationship Specialty Start Date End Date Teresita Garcia MD PCP - General Family Practice 01/22/11 [address] [place], [place] [phone] Teresita Garcai MD Assigned PCP 11/16/16 12/28/21 [address] [place] [address] documented as of this encounter
--- OUTSIDE RECORDS SUMMARY | 2022-08-27 14:13 | XMS_ITS | Encounter Summary ---
:1960 Author Organization [place] Address [address] [facility] [place] [address] Care Team Providers Name Role Phone Teresita [...] do you attend adventist or Not asked episcopal services? Do you [...] Depression Total Score: 5 11/25/2018 3:25 PM EXPLOSIVES TRUCK DRIVER documented as of this encounter Care Teams Parts Casting Machine Operator Relationship Specialty Start Date End Date Teresita Garcia MD PCP - General Family Practice 01/22/11 [address] [place] [address] Teresita Garcia MD Assigned PCP 11/16/16 12/28/21 [address] [place] [address] documented as of this encounter
--- OUTSIDE RECORDS SUMMARY | 2022-08-27 14:13 | XMS_ITS | Encounter Summary ---
:1960 Author Organization [place] Address [address] [facility] [place] [address] Care Team Providers Name Role Phone Teresita Garcia MD Primary Care Provider Teresita Garcia MD Unavailable Teresita Garcia MD Unavailable Reason for Visit Reason Comments Medication Refill Alendronate Encounter Details Date Type Department Care Team Description 12/22/2017 Refill [facility] Roel Garcia MD Medication Refill [place] [id number] [place] [address] (Alendronate) [address] [place] [address] [phone] Social History Tobacco Use Types Packs/Day Years [...] you attend latter day or Not asked orthodoxy services? Do you [...] PM CDT Ordered. Thanks. Teresita Garcia MD [facility] [phone] Telephone Encounter - Karen Covarrubias RN - [...] prescribed it and why? Teresita Garcia MD [facility] [phone] r Telephone Encounter - Deann Lora RN [...] to contact him instead. Teresita Garcia MD [facility] [phone] Telephone Encounter - Hal Sierra RN - [...] Depression Total Score: 2 11/25/2017 8:11 AM STEEL RULE INSPECTOR documented as of this encounter Care Teams Bottom Ironer Relationship Specialty Start Date End Date Teresita Garcia MD PCP - General Family Practice 01/22/11 [address] [place], [place] [phone] Teresita Garcia MD PCP - Assigned PCP 11/16/16 11/30/18 [address] [place] [address] Teresita Garcia MD Assigned PCP 11/16/16 12/28/21 [address] [place] [address] documented as of this encounter
--- OUTSIDE RECORDS SUMMARY | 2022-08-27 14:13 | XMS_ITS | Encounter Summary ---
:1960 Author Organization [place] Address [address] [facility] [place] [address] Care Team Providers Name Role Phone Teresita [...] do you attend mandaeism or Not asked advent services? Do you [...] Depression Total Score: 8 12/02/2019 2:02 PM TRAFFIC MONITOR SPECIALIST documented as of this encounter Care Teams Hydropress Operator Relationship Specialty Start Date End Date Teresita Garcia MD PCP - General Family Practice 01/22/11 [address] [place] [address] Teresita Garcia MD Assigned PCP 11/16/16 12/28/21 [address] [facility] [place] [address] documented as of this encounter
--- OUTSIDE RECORDS SUMMARY | 2022-08-27 14:13 | XMS_ITS | Encounter Summary ---
:1960 Author Organization [place] Address [address] [facility] [place] [address] Care Team Providers Name Role Phone Teresita Garcia MD Primary Care Provider Teresita Garcia MD Unavailable Encounter Details Date Type Department Care Team Description 11/24/2019 Medical Correspondence [facility] Scan, ORDER SUMMARY Health Info Mgmt Non-Provider [facility] HEALTH/HOSPICE [address] [place] [address] Social History Tobacco Use Types Packs/Day [...] do you attend bahai or Not asked judaism services? Do you [...] Depression Total Score: 5 11/25/2018 3:25 PM PHARMACY STUDENT documented as of this encounter Care Teams Special Events Fundraiser Relationship Specialty Start Date End Date Teresita Garcia MD PCP - General Family Practice 01/22/11 [address] [place], [place] [phone] Teresita Garcia MD Assigned PCP 11/16/16 12/28/21 [address] [place] [address] documented as of this encounter
--- OUTSIDE RECORDS SUMMARY | 2022-08-27 14:13 | XMS_ITS | Encounter Summary ---
:1960 Author Organization [place] Address [address] [facility] [place] [address] Care Team Providers Name Role Phone Teresita Garcia MD Primary Care Provider Teresita Garcia MD Unavailable Reason for Visit Reason Comments Consult osteoporosis treatment Encounter Details Date Type Department Care Team Description 03/11/2019 Office Visit [facility] Teresita Garcia MD Seborrheic keratoses (Primary Dx); Clinic [address] Seborrheic dermatitis of scalp; [address] [place] [address] Osteoporosis without current pathological fracture, unspecified osteoporosis type [place], [place] [phone] Social History Tobacco Use Types Packs/Day [...] do you attend baptism or Not asked yazidi services? Do you [...] scalp ??? Status post hip replacement ??? Jkzy-Ydzbz-Wdajxjg disease ??? Atopic rhinitis ??? Major depressive [...] 6 months (around 09/10/2019). Teresita Garcia MD [facility] documented in this encounter Plan of Treatment Not on filedocumented as of this encounter Visit Diagnoses Diagnosis Seborrheic keratoses - Primary Seborrheic dermatitis of scalp Other seborrheic dermatitis Osteoporosis without current pathologica l fracture, unspecified osteoporosis type documented in this encounter Additional Health Concerns Assessment Noted Time PHQ-9 Depression Total Score: 5 11/25/2018 3:25 PM POWDER GUARD documented as of this encounter Care Teams Cadd Drafter Relationship Specialty Start Date End Date Teresita Garcia MD PCP - General Family Practice 01/22/11 [address] [place] [address] Teresita Garcia MD Assigned PCP 11/16/16 12/28/21 [address] [place] [address] documented as of this encounter
--- OUTSIDE RECORDS SUMMARY | 2022-08-27 14:13 | XMS_ITS | Encounter Summary ---
:1960 Author Organization [place] Address [address] [place] [address] Care Team Providers Name Role Phone Teresita Garcia MD Primary Care Provider Teresita Garcia MD Unavailable Encounter Details Date Type Department Care Team Description 11/16/2019 Medical Correspondence [facility] Scan, TRANSFER SUMMARY Health Info Mgmt Non-Provider HOME HEALTH CARE Srvcs [address] [place] [address] Social History Tobacco Use Types Packs/Day [...] do you attend druze or Not asked moravian services? Do you [...] Depression Total Score: 5 11/25/2018 3:25 PM DINING SERVER documented as of this encounter Care Teams Crumb Packer Relationship Specialty Start Date End Date Teresita Garcia MD PCP - General Family Practice 01/22/11 [address] [place], [place] [phone] Teresita Garcia MD Assigned PCP 11/16/16 12/28/21 [address] [place], [place] [phone] documented as of this encounter
--- OUTSIDE RECORDS SUMMARY | 2022-08-27 14:13 | XMS_ITS | Encounter Summary ---
:1960 Author Organization [place] Address [address] [facility] [place] [address] Care Team Providers Name Role Phone Teresita Garcia MD Primary Care Provider Teresita Garcia MD Unavailable Encounter Details Date Type Department Care Team Description 12/02/2019 Medical Correspondence [facility] Scan, DISCHARGE/ORDER Health Info Mgmt Non-Provider SUMMARY [facility] HEALTH[facility]HOSPICE [address] [place] [address] Social History Tobacco Use Types [...] do you attend yarsanism or Not asked sabianism services? Do you [...] Depression Total Score: 8 12/02/2019 2:02 PM SOILS TECHNICIAN documented as of this encounter Care Teams Licensing Court Magistrate Relationship Specialty Start Date End Date Teresita Garcia MD PCP - General Family Practice 01/22/11 [address] [place] [address] Teresita Garcia MD Assigned PCP 11/16/16 12/28/21 [address] [place], [place] [phone] documented as of this encounter
--- OUTSIDE RECORDS SUMMARY | 2022-08-27 14:13 | XMS_ITS | Encounter Summary ---
:1960 Author Organization [place] Address [address] [place] [address] Care Team Providers Name Role Phone Teresita Garcia MD Primary Care Provider Teresita Garcia MD Unavailable Reason for Visit Reason Onset Date Comments Forms 11/22/2019 Physician Order Encounter Details Date Type Department Care Team Description 11/22/[address] [facility] Teresita Garcia MD Forms (Physician Order) Clinic [phone] [place] [address] [phone] Social History Tobacco Use Types Packs/Day [...] do you attend samaritan or Not asked jain services? Do you [...] PM CST Form Faxed, 11/24/2019 Jackie Brito/AWILDA WORKER Telephone Encounter - Rosy Brito - 11/22/2019 11:57 AM CST Received 2 page fax for Physician Order for Dr Garcia to complete. Form in the in- basket at [facility] in AA's folder. WORKER documented in this encounter Plan of Treatment Not on filedocumented as of this encounter Visit Diagnoses Not on filedocumented in this encounter Additional Health Concerns Assessment Noted Time PHQ-9 Depression Total Score: 5 11/25/2018 3:25 PM DOPE WORKER documented as of this encounter Care Teams Software Installer Relationship Specialty Start Date End Date Teresita Garcia MD PCP - General Family Practice 01/22/11 [address] [place] [address] Teresita Garcia MD Assigned PCP 11/16/16 12/28/21 [address] [place] [address] documented as of this encounter
--- OUTSIDE RECORDS SUMMARY | 2022-08-27 14:13 | XMS_ITS | Encounter Summary ---
:1960 Author Organization [place] Address [address] [facility] [place] [address] Care Team Providers Name Role Phone Teresita Garcia MD Primary Care Provider Teresita Garcia MD Unavailable Reason for Visit Reason Onset Date Comments Medication Request 10/04/2019 Abx before Dental pr ocedure Encounter Details Date Type Department Care Team Description 10/04/2019 Telephone [facility] Teresita Garcia MD Medication Request (Abx Clinic [place] [address] before Dental [address] [place], [place] procedure) [place] [phone] Social History Tobacco Use Types Packs/Day Years [...] do you attend episcopal or Not asked adventism services? Do you [...] Deann Lora RN, BS Clinical Nurse Triage. [employer]TER[employer] Telephone Encounter - Teresita Garcia MD - 10/05/2019 7:42 AM CST No recommendations for Abx unless patient does have valve replacement, or congenital heart disease. Teresita Garcia MD [facility] [phone] [employer]BL[employer]TERY Telephone Encounter - Mary More RN - [...] of office for day. Mary More RN [employer] Telephone Encounter - Gregory Bronson - 10/04/2019 11:22 AM CST Patient wants to know if he needs Abx before dental procedure tomorrow. He has had hips replaced. If so send to [facility]. Call and let patient know. MBLER DRY CELL [employer] BATTERY documented in this encounter Plan of Treatment Not on filedocumented as of this encounter Visit Diagnoses Not on filedocumented in this encounter Additional Health Concerns Assessment Noted Time PHQ-9 Depression Total Score: 5 11/25/2018 3:25 PM ASSEMBLER DRY CELL AND BATTERY documented as of this encounter Care Teams Barrel Cleaner Relationship Specialty Start Date End Date Teresita Garcia MD PCP - General Family Practice 01/22/11 [address] [place], [place] [phone] Teresita Garcia MD Assigned PCP 11/16/16 12/28/21 [address] [place] [address] documented as of this encounter
--- OUTSIDE RECORDS SUMMARY | 2022-08-27 14:13 | XMS_ITS | Encounter Summary ---
:1960 Author Organization [place] Address [address] [place] [address] Care Team Providers Name Role Phone Teresita Garcia MD Primary Care Provider Teresita Garcia MD Unavailable Reason for Visit Reason Onset Date Comments Forms 11/29/2019 Physician Order Encounter Details Date Type Department Care Team Description 11/29/2019 Telephone [facility] Teresita Garcia MD Forms (Physician Order) Clinic [address] [place] [phone] Social History Tobacco Use Types Packs/Day [...] do you attend mosque or Not asked protestant services? Do you [...] PM CST Form faxed, 11/30/2019 Jackie Brito/AWILDA GER RECOVERY Telephone Encounter - Rosy Brito - 11/29/2019 11:08 AM CST Received 2 page fax for Physician Order for Dr Garcia to complete. Form in the in- basket at [facility] in AA's folder. GER RECOVERY documented in this encounter Plan of Treatment Not on filedocumented as of this encounter Visit Diagnoses Not on filedocumented in this encounter Additional Health Concerns Assessment Noted Time PHQ-9 Depression Total Score: 5 11/25/2018 3:25 PM MANAGER RECOVERY documented as of this encounter Care Teams Terminal Computer Operator Relationship Specialty Start Date End Date Teresita Garcia MD PCP - General Family Practice 01/22/11 [address] [place] [address] Teresita Garcia MD Assigned PCP 11/16/16 12/28/21 [address] [place] [address] documented as of this encounter
--- OUTSIDE RECORDS SUMMARY | 2022-08-27 14:13 | XMS_ITS | Encounter Summary ---
:1960 Author Organization [place] Address [address] [facility] [place] [address] Care Team Providers Name Role Phone Teresita [...] do you attend temple or Not asked religion services? Do you [...] Depression Total Score: 5 11/25/2018 3:25 PM BLOCK BREAKER OPERATOR documented as of this encounter Care Teams Body Artist Relationship Specialty Start Date End Date Teresita Garcia MD PCP - General Family Practice 01/22/11 [address] [facility], [place] [phone] Teresita Garcia MD PCP - Assigned PCP 11/16/16 11/30/18 [address] [facility], [place] [phone] Teresita Garcia MD Assigned PCP 11/16/16 12/28/21 [address] [facility], [place] [phone] documented as of this encounter
--- OUTSIDE RECORDS SUMMARY | 2022-08-27 14:13 | XMS_ITS | Encounter Summary ---
:1960 Author Organization [place] Address [address] [place] [address] Care Team Providers Name Role Phone Teresita Garcia MD Primary Care Provider Teresita Garcia MD Unavailable Encounter Details Date Type Department Care Team Description 11/28/2019 Medical Correspondence [facility] [place] Scan, PHYSICAL THERAPY Health Info Mgmt Non-Provider ORDER [facility] [address] [facility] [place] [address] Social History Tobacco Use Types [...] do you attend buddhist or Not asked holiness services? Do you [...] Depression Total Score: 5 11/25/2018 3:25 PM RETURN TO VENDOR documented as of this encounter Care Teams Firer Powerhouse Relationship Specialty Start Date End Date Teresita Garcia MD PCP - General Family Practice 01/22/11 [address] [place], [place] [phone] Teresita Garcia MD Assigned PCP 11/16/16 12/28/21 [address] [place], [place] [phone] documented as of this encounter
--- OUTSIDE RECORDS SUMMARY | 2022-08-27 14:13 | XMS_ITS | Encounter Summary ---
:1960 Author Organization [place] Address [address] [place] [address] Care Team Providers Name Role Phone Teresita [...] do you attend religion or Not asked taoist services? Do you [...] Depression Total Score: 2 11/25/2017 8:11 AM FORKLIFT TRUCK MECHANIC documented as of this encounter Care Teams Die Welder Relationship Specialty Start Date End Date Teresita Garcia MD PCP - General Family Practice 01/22/11 [address] [facility], [place] [phone] Teresita Garcia MD PCP - Assigned PCP 11/16/16 11/30/18 [address] [facility], [place] [phone] Teresita Garcia MD Assigned PCP 11/16/16 12/28/21 [address] [facility], [place] [phone] documented as of this encounter
--- OUTSIDE RECORDS SUMMARY | 2022-08-27 14:13 | XMS_ITS | Encounter Summary ---
:1960 Author Organization [place] Address [address] [place] [address] Care Team Providers Name Role Phone Teresita [...] or relatives? How often do you attend pentecostal or Not asked shinto services? Do you belong to any clubs or Not asked organizations such as pentecostal groups, unions, fraternal or athletic groups, or [...] Depression Total Score: 2 11/25/2017 8:11 AM ROASTER HELPER documented as of this encounter Care Teams Commercial Carpet Installer Relationship Specialty Start Date End Date Teresita Garcia MD PCP - General Family Practice 01/22/11 [address] [facility], [place] [phone] Teresita Garcia MD PCP - Assigned PCP 11/16/16 11/30/18 [address] [facility], [place] [phone] Teresita Garcia MD Assigned PCP 11/16/16 12/28/21 [address] [facility], [place] [phone] documented as of this encounter
--- OUTSIDE RECORDS SUMMARY | 2022-08-27 14:13 | XMS_ITS | Encounter Summary ---
:1960 Author Organization [place] Address [address] [place] [address] Care Team Providers Name Role Phone Teresita Garcia MD Primary Care Provider Teresita Garcia MD Unavailable Reason for Visit Reason Onset Date Comments Orders 12/01/2019 [facility] Encounter Details Date Type Department Care Team Description 12/01/[address] [facility] Teresita Garcia MD Orders ([facility] [address]) [address] [place] [phone] Social History Tobacco Use Types Packs/Day [...] do you attend nondenominational or Not asked baptist services? Do you [...] AM CST Signed forms faxed. Malena Hankins Industrial Machine System Technician KISS SETTER Telephone Encounter - Malena Hankins - 12/01/2019 3:46 PM CST Recd 8 page fax from [employer]. Please sign [employer] Orders and fax to [phone]. Form in AA folder at [place]. Malena Hankins Industrial Machine System Technician KISS SETTER documented in this encounter Plan of Treatment Not on filedocumented as of this encounter Visit Diagnoses Not on filedocumented in this encounter Additional Health Concerns Assessment Noted Time PHQ-9 Depression Total Score: 5 11/25/2018 3:25 PM HAND KISS SETTER documented as of this encounter Care Teams Butter Fat Tester Relationship Specialty Start Date End Date Teresita Garcia MD PCP - General Family Practice 01/22/11 [address] [place] [address] Teresita Gracia MD Assigned PCP 11/16/16 12/28/21 [address] [place] [address] documented as of this encounter
--- OUTSIDE RECORDS SUMMARY | 2022-08-27 14:13 | XMS_ITS | Encounter Summary ---
:1960 Author Organization [place] Address Critical access hospital0 [facility] [place] [address] Care Team Providers Name Role Phone Teresita Garcia MD Primary Care Provider Teresita Garcia MD Unavailable Reason for Visit Reason Comments Medication Refill fosamax Encounter Details Date Type Department Care Team Description 06/14/2019 Refill [facility] Roel Garcia MD Medication Refill [place] [id number] [place] [address] (fosamax) [address] [place] [phone] Social History Tobacco Use Types Packs/Day Years [...] do you attend hoahaoism or Not asked jainism services? Do you [...] On Dexa on file. Bella Guzman RN, [facility] Triage Telephone Encounter - Dawn Kimble [...] Depression Total Score: 5 11/25/2018 3:25 PM HEADING PINNER documented as of this encounter Care Teams Military Professional Relationship Specialty Start Date End Date Teresita Garcia MD PCP - General Family Practice 01/22/11 [address] [facility], [place] [phone] Teresita Garcia MD Assigned PCP 11/16/16 12/28/21 [address] [place] [address] documented as of this encounter
--- OUTSIDE RECORDS SUMMARY | 2022-08-27 14:14 | XMS_ITS | Encounter Summary ---
:1960 Author Organization [place] Address [facility] [place] [address] Care Team Providers Name Role Phone Teresita Garcia MD Primary Care Provider Encounter Details Date Type Department Care Team Description 04/10/2014 Orders Only [facility] Mul tiple sclerosis (H) [facility] (Primary Dx) [address] [place] [address] Social History Tobacco Use Types [...] do you attend amish or Not asked evangelical services? Do you [...] Signature Vitamin D 50 30 - 75 [facility] Deficiency ug/L CAMPUS LABS screening Comment: Season, race, dietary intake, and treatm ent affect the concentration of 61-kcqpxgm-Pqhjokk D. Values may decrea se during winter [...] questions, pl ease contact the laboratory at [phone]. Specimen Anatomical Collection Method Collection Time Receive d Time (Source) Location / / Volume Laterality Blood specimen 04/10/2014 2:17 PM 014 2:20 (specimen) CDT PM CDT Lab Non-Fv Credentialed Provider LAB - BLOOD ORDERABLE S Performing Organization Address City/State/ZIP Code Phon e Number [facility] [address] [place], [place] [id number] [place] [address] LABS documented in this encounter Visit Diagnoses Diagnosis Multiple sclerosis (H) - Primary Multiple sclerosis documented in this encounter Care Teams Rn Field Case Manager Relationship Specialty Start Date End Date Teresita Garcia MD PCP - General Family Practice 01/22/11 [address] [place] [address] documented as of this encounter
--- OUTSIDE RECORDS SUMMARY | 2022-08-27 14:14 | XMS_ITS | Encounter Summary ---
:1960 Author Organization [place] Address [address] [facility] [place] [address] Care Team Providers Name Role Phone Teresita Garcia MD Primary Care Provider Teresita Garcia MD Unavailable Teresita Garcia MD Unavailable Reason for Referral Care Coordination - Closed Specialty Diagnoses / Procedures Referred By Contact Refer red To Contact Diagnoses Multiple sclerosis (H) Teresita Garcia MD [facility] [address] [facility] [address] [place], [place] [address] [place] [address] Phone: Referral ID Status Reason Start Date Expiration Date Visits Requ ested Visits Authorized [id number] Closed 11/24/2017 11/24/2018 1 1 R Reason for Visit Reason Comments Foot Problems swelling in both feet xsever al months Encounter Details Date Type Department Care Team Description 11/24/2017 Office Visit [facility] Teresita Garcia MD Leg swelling (Primary Dx); Clinic [place] [id number] [place] [address] Venous stasis; [address] [place], [place] Multiple sclerosis ([place]) [place] [phone] Social History Tobacco Use Types Packs/Day Years [...] do you attend sabianism or Not asked yazidism services? Do you belong to any clubs or Not asked organizations such as sabianism groups, unions, [employer]Trek or athletic groups, or school groups? How [...] Comments Blood Pressure 119/78 11/24/2017 11:13 AM PILER Pulse 85 11/24/2017 11:13 AM PILER Temperature 36.7 ??C (98 ??F) 11/24/2017 11:13 AM PILER Respiratory Rate 20 11/24/2017 11:13 AM PILER Oxygen Saturation 100% 11/24/2017 11:13 AM PILER Inhaled Oxygen Concentration - - Weight 76.7 kg (169 lb) 11/24/2017 11:13 AM PILER Height 171.5 cm (5' 7.5) 11/24/2017 11:13 AM PILER Body Mass Index 26.08 11/24/2017 11:13 AM PILER documented in this encounter Progress Notes Teresita [...] scalp ??? Status post hip replacement ??? Erjj-Fhhjo-Ihywvyi disease ??? Atopic rhinitis ??? Major depressive [...] - CARE COORDINATION REFERRAL Teresita Garcia MD [facility] R documented in this encounter Plan of Treatment Not on filedocumented as of this encounter Procedures Procedure Name Priority Date/Time Associated Comments Diagnosis N TERMINAL PRO BNP Routine 11/24/2017 11:45 AM Venous stasis R esults for this OUTPATIENT PILER procedure are i n the results section. HEPATIC FUNCTION Routine 11/24/2017 11:45 AM Venous stasis Res ults for this PANEL PILER procedure are i n the results section. BASIC METABOLIC Routine 11/24/2017 11:45 AM Venous stasis Resu lts for this PANEL PILER procedure are i n the results section. CBC WITH PLATELETS Routine 11/24/2017 11:45 AM Venous stasis R esults for this PILER procedure are i n the results section. documented in this encounter Results (ABNORMAL) Hepatic panel (11/24/2017 11:45 AM PILER) Patholo gist Method Time Signature Bilirubin Direct 0.1 0.0 - 0.2 11/24/2017 [place] mg/dL 5:24 PM PILER [facility] Bilirubin Total 0.7 0.2 - 1.3 11/24/2017 [place] mg/dL 5:24 PM PILER [facility] Albumin 3.6 3.4 - 5.0 11/24/2017 [place] g/dL 5:24 PM PILER [facility] Protein Total 6.6 (L) 6.8 - 8.8 11/24/2017 [place] g/dL 5:24 PM [facility] Alkaline 58 40 - 150 11/24/2017 [place] Phosphatase U/L 5:25 PM [facility] ALT 27 0 - 70 11/24/2017 [facility] U/L 5:24 PM PILER [facility] AST 24 0 - 45 11/24/2017 [facility] U/L 5:24 PM [facility] Specimen Anatomical Collection Method Collection Time Receive d Time (Source) Location / / Volume Laterality Blood specimen 11/24/2017 11:45 8 (specimen) AM PILER 11:46 AM PILER Teresita Garcia MD LAB - BLOOD ORDERABLES Performing Organization Address City/State/ZIP Code Phon e Number [facility] [address] [place] [address] CBC with platelets (11/24/2017 11:45 AM PILER) P athologist Signature WBC 8.6 4.0 - 11.0 11/24/2017 [place] 10e9/L 12:09 PM PILER [facility] RBC Count 4.75 4.4 - 5.9 11/24/2017 [place] 10e12/L 12:09 PM PILER [facility] Hemoglobin 14.6 13.3 - 11/24/2017 [place] 17.7 g/dL 12:09 PM PILER [facility] Hematocrit 43.1 40.0 - 11/24/2017 [place] 53.0 % 12:09 PM [facility] MCV 91 78 - 100 11/24/2017 [place] fl 12:09 PM PILER [facility] MCH 30.7 26.5 - 11/24/2017 [place] 33.0 pg 12:09 PM [facility] MCHC 33.9 31.5 - 11/24/2017 [place] 36.5 g/dL 12:09 PM [facility] RDW 12.7 10.0 - 11/24/2017 [place] 15.0 % 12:09 PM [facility] Platelet Count 168 150 - 450 11/24/2017 [place] 10e9/L 12:09 PM [facility] Specimen Anatomical Collection Method Collection Time Receive d Time (Source) Location / / Volume Laterality Blood specimen 11/24/2017 11:45 8 (specimen) AM PILER 11:46 AM PILER Teresita Garcia MD LAB - BLOOD ORDERABLES Performing Organization Address City/State/ZIP Code Phon e Number [facility] [address] [place] [address] N terminal pro BNP outpatient (11/24/2017 11:45 AM PILER) athologist Signature N-Terminal Pro 40 0 - 125 11/24/2017 [facility] pg/mL 6:47 PM PILER [facility] Comment: Reference range shown and results flagge [...] Blood specimen 11/24/2017 11:45 8 (specimen) AM PILER 11:46 AM PILER Teresita Garcia MD LAB - BLOOD ORDERABLES Performing Organization Address City/State/ZIP Code Phon e Number [facility] [address] [place] [address] [facility] Basic metabolic panel (11/24/2017 11:45 AM PILER) P athologist Signature Sodium 139 133 - 144 11/24/2017 [facility] mmol/L 5:24 PM [facility] Potassium 3.7 3.4 - 5.3 11/24/2017 [facility] mmol/L 5:24 PM [facility] Chloride 105 94 - 109 11/24/2017 [facility] mmol/L 5:24 PM [facility] Carbon Dioxide 31 20 - 32 11/24/2017 [facility] mmol/L 5:24 PM [facility] Anion Gap 3 3 - 14 11/24/2017 [place] mmol/L 5:24 PM [facility] Glucose 95 70 - 99 11/24/2017 [place] mg/dL 5:24 PM [facility] Urea Nitrogen 15 7 - 30 11/24/2017 [facility] mg/dL 5:24 PM [facility] Creatinine 0.96 0.66 - 11/24/2017 [place] 1.25 mg/dL 5:24 PM [facility] GFR Estimate 81 >60 11/24/2017 [place] mL/min/1.7 5:[address] Comment: Non GFR Calc GFR Estimate If >90 >60 mL/min/1.7m2 11/24/2017 5:24 P M [facility] Black [facility] Comment: GFR Calc Calcium 9.2 8.5 - 10.1 mg/dL 11/24/2017 5:24 PM [facility] Specimen Anatomical Collection Method Collection Time Receive d Time (Source) Location / / Volume Laterality Blood specimen 11/24/2017 11:45 8 (specimen) AM PILER 11:46 AM PILER Teresita Garcia MD LAB - BLOOD ORDERABLES Performing Organization Address City/State/ZIP Code Phon e Number [facility] [address] [place] [address] documented in this encounter Visit Diagnoses Diagnosis Leg swelling - Primary Swelling of limb Venous stasis Unspecified venous (peripheral) insuffic iency Multiple sclerosis (H) Multiple sclerosis documented in this encounter Additional Health Concerns Assessment Noted Time PHQ-9 Depression Total Score: 2 11/25/2017 8:11 AM PILER documented as of this encounter Care Teams Whiskey Filterer Relationship Specialty Start Date End Date Teresita Garcia MD PCP - General Family Practice 01/22/11 [address] [place], [place] [phone] Teresita Garcia MD PCP - Assigned PCP 11/16/16 11/30/18 [address] [place], [place] [phone] Teresita Garcia MD Assigned PCP 11/16/16 12/28/21 [address] [place], [place] [phone] documented as of this encounter
--- OUTSIDE RECORDS SUMMARY | 2022-08-27 14:14 | XMS_ITS | Encounter Summary ---
:1960 Author Organization [place] Address [address] [facility] [place] [address] Care Team Providers Name Role Phone Teresita Garcia MD Primary Care Provider Encounter Details Date Type Department Care Team Description 06/22/2013 Orders Only [facility] Mul tiple sclerosis (H); [place] [facility] Other malaise and fatigue; [address] [facility] Other general symptoms; [place], [place] Disturbance of skin sensation; [address] Lack of coordination; [phone] Other abnormali ty of urination; Urinary tract [...] do you attend amish or Not asked alevism services? Do you [...] Component Value Ref Test [facility] Method Time Signature Specimen Catheterized [place] Description Urine [facility] Culture Micro No growth [facility] Micro Report FINAL 06/24/2013 [facility] Specimen Anatomical Collection Method Collection Time Receive d Time (Source) Location / / Volume Laterality Urine specimen 06/22/2013 4:02 PM 013 4:06 (specimen) CDT PM CDT Ramón Shine MD LAB - MICRO GENERAL ORDERABL ES Performing Organization Address City/[facility] Code Phon e Number [facility] [address] [place], [place] [phone] Urine Microscopic (06/22/2013 4:01 PM CDT) P athologist Signature WBC Urine O - 2 0 - 2 /HPF [facility] RBC Urine O - 2 0 - 2 /HPF [facility] Squamous Few FEW /LPF [place] Epithelial /LPF [facility] Specimen Anatomical Collection Method Collection Time Receive d Time (Source) Location / / Volume Laterality 06/22/2013 4:01 PM 3 4:04 CDT PM CDT Ramón Shine MD LAB - URINE ORDERABLES Performing Organization Address City/[facility]/ZIP [facility] Phon e Number [facility] [address] [place], [place] [phone] (ABNORMAL) *UA reflex to Microscopic and Culture (06/22/2013 4:01 PM CDT) Component Value Ref Test Analysis Performed At [facility] gist Range Method Time Signature Color Urine Yellow [facility] Appearance Urine Clear [facility] Glucose Urine Negative NEG [place] mg/dL [facility] Bilirubin Urine Negative NEG [facility] Ketones Urine Negative NEG [place] mg/dL [facility] Specific Mchenry 1.010 1.003 - [place] Urine 1.035 [facility] Blood Urine Trace (A) NEG [facility] pH Urine 6.0 5.0 - [place] 7.0 pH [facility] Protein Albumin Negative NEG [place] Urine mg/dL [facility] Urobilinogen 0.2 0.2 - [place] Urine 1.0 CLINICS EU/dL [place] Nitrite Urine Negative NEG [facility] Leukocyte Negative NEG [place] Esterase Urine [facility] Source Catheterized [place] Urine [facility] Specimen Anatomical Collection Method Collection Time Receive d Time (Source) Location / / Volume Laterality Urine specimen 06/22/2013 4:01 PM 013 4:04 (specimen) CDT PM CDT Ramón Shine MD LAB - URINE ORDERABLES Performing Organization Address City/State/ZIP Code Phon e Number [facility] [address] [place], [place] [phone] documented in this encounter Visit Diagnoses Diagnosis Multiple sclerosis (H) Multiple sclerosis Other malaise and fatigue Other general symptoms(780.99) Other general symptoms Disturbance of skin sensation Lack of coordination Other abnormality of urination(788.69) Other abnormality of urination Urinary tract infection, site not specif ied documented in this encounter Care Teams Coding Tech Relationship Specialty Start Date End Date Teresita Garcia MD PCP - General Family Practice 01/22/11 [address] [place] [address] documented as of this encounter
--- OUTSIDE RECORDS SUMMARY | 2022-08-27 14:14 | XMS_ITS | Encounter Summary ---
:1960 Author Organization [place] Address [address] [place] [address] Care Team Providers Name Role Phone Teresita Garcia MD Primary Care Provider Reason for Visit Reason Onset Date Comments Medication Request 04/23/2016 04/24/16 dental appt - prophylactic abx Encounter Details Date Type Department Care Team Description 04/23/2016 Telephone [facility] Teresita Garcia MD Medication Request Clinic [address] (04/24/16 dental appt - [address] [place], [place] prophylactic abx) [place], [place] [phone] Social History Tobacco Use Types Packs/Day [...] do you attend baptism or Not asked jainism services? Do you [...] to do prophylaxis anymore. Teresita Garcia MD [facility] [phone] Telephone Encounter - Hal Sierra, RN - 04/23/2016 9:28 AM CDT Pt calls. Dental appointment tomorrow April 24. Reports bilateral hip replacement about 10-15 years ago at [facility]. At that time his surgeon (now retired) recommended prophylactic antibiotic prior to dental procedures for the rest of his life. Dentist was prescribing but prefers PCP advise/prescribe. Dr. Garcia, antibiotic indicated? Pharmacy t'd up. We will call Jose with your reply. [phone] OK detailed message Hal Sierra, RN documented in this encounter Plan of Treatment Not on filedocumented as of this encounter Visit Diagnoses Not on filedocumented in this encounter Care Teams Recreation Facility Manager Relationship Specialty Start Date End Date Teresita Garcia MD PCP - General Family Practice 01/22/11 [address] [place] [address] documented as of this encounter
--- OUTSIDE RECORDS SUMMARY | 2022-08-27 14:14 | XMS_ITS | Encounter Summary ---
:1960 Author Organization [place] Address [facility] [place] [address] Care Team Providers Name Role Phone Teresita Garcia MD Primary Care Provider Reason for Visit Reason Onset Date Comments Orders 2013 [facility] Encounter Details Date Type Department Care Team Description [address] [facility] Teresita Garcia MD Orders ([facility] [address]) [address] [place] [phone] Social History Tobacco Use Types Packs/Day Years [...] do you attend shinto or Not asked baptist services? Do you [...] day, form completed and faxed Lalita Ricketts/YANELI [place] Telephone Encounter - Malena Hankins - 2013 1:53 PM CDT Recd 1 page fax from [employer]. Please complete and sign [facility] [employer] Prescriptionform and fax to [phone]. Form in AA folder at [place]. Malena Hankins Forensic Examiner documented in this encounter Plan of Treatment Not on filedocumented as of this encounter Visit Diagnoses Not on filedocumented in this encounter Care Teams Dispatcher Radio Relationship Specialty Start Date End Date Teresita Garcia MD PCP - General Family Practice 01/22/11 [address] [place] [address] documented as of this encounter
--- OUTSIDE RECORDS SUMMARY | 2022-08-27 14:14 | XMS_ITS | Encounter Summary ---
:1960 Author Organization [place] Address [address] [place] [address]. [place] [address] Care Team Providers Name Role Phone Teresita Garcia MD Primary Care Provider Reason for Visit Reason Comments Hospital F/U MS relapse Encounter Details Date Type Department Care Team Description 10/17/2016 Office Visit [facility] Teresita Garcia MD Major depressive disorder, single episod e, mild (H) (Primary Dx); Clinic [address] Multiple sclerosis (H); [address] [place] [address] Screening for hyperlipidemia [place], [place] [phone] Social History Tobacco Use Types Packs/Day [...] Comments Blood Pressure 110/78 10/17/2016 11:05 AM POLYGRAPH EXAMINER Pulse 100 10/17/2016 11:05 AM POLYGRAPH EXAMINER Temperature 36.8 ??C (98.3 ??F) 10/17/2016 11:05 AM POLYGRAPH EXAMINER Respiratory Rate 20 10/17/2016 11:05 AM POLYGRAPH EXAMINER Oxygen Saturation 97% 10/17/2016 11:05 AM POLYGRAPH EXAMINER Inhaled Oxygen Concentration - - Weight 73.5 kg (162 lb) 10/17/2016 11:05 AM POLYGRAPH EXAMINER Height 171.5 cm (5' 7.5) 10/17/2016 11:05 AM POLYGRAPH EXAMINER Body Mass Index 25 10/17/2016 11:05 AM POLYGRAPH EXAMINER documented in this encounter Progress Notes Teresita Garcia MD - 10/17/2016 10:59 AM CST SUBJECTIVE: Dejuan Rodriguez is a 55 year old male who presents to clinic today for the following health issues: Hospital Follow-up Visit: Hospital/Fci/ Rehab Facility: [facility] Date of Admission: 09/29/16 Date of Discharge: [...] this visit: Type of Medical Decision Making Tvqs-sf-Invv Visit within 7 Days of discharge Jjoy-mo-Ztkt Visit within 14 days of discharge Moderate Complexity [address]93[address] High Complexity 84341 [id number] Problem list and histories reviewed & adjusted, as indicated. Additional history: as documented Patient Active Problem List Diagnosis ??? Multiple sclerosis (H) ??? CARDIOVASCULAR SCREENING; LDL GOAL LESS THAN 160 ??? Cannabis abuse ??? Baclofen pump failure ??? Spasticity ??? Seborrheic dermatitis of scalp ??? Status post hip replacement ??? Xqwk-Fduag-Vhuwvwv disease ??? Atopic rhinitis ??? Major depressive [...] RNA Quant and Genotype Teresita Garcia MD [facility] GRAPH EXAMINER documented in this encounter Nursing Notes Yumiko Camp, WRITING TUTOR - 10/17/2016 11:08 AM CST Chief Complaint [...] using cuff size regular Yumiko Camp CMA GRAPH EXAMINER documented in this encounter Plan of Treatment Not on filedocumented as of this encounter Procedures Procedure Name Priority Date/Time Associated Diagnosis Comme nts HEPATITIS C SCREEN Routine 10/17/2016 11:36 Screening for Resu lts for this REFLEX TO HCV RNA AM POLYGRAPH EXAMINER hyperlipidemia procedur e are in QUANT AND GENOTYPE the resul ts section. LIPID REFLEX TO Routine 10/17/2016 11:36 Screening for Results for this DIRECT LDL PANEL AM POLYGRAPH EXAMINER hyperlipidemia procedure are in the results section. documented in this encounter Results Lipid panel reflex to direct LDL (10/17/2016 11:36 AM POLYGRAPH EXAMINER) [facility] Method Time Signature Cholesterol 144 <200 [place] mg/dL [facility] Triglycerides 112 <150 [place] mg/dL [facility] HDL Cholesterol 70 >39 mg/dL [facility] LDL Cholesterol 52 <100 [place] Calculated mg/dL [facility] Comment: Desirable: <100 mg/dl Non HDL Cholesterol 74 <130 mg/dL [facility] Specimen Anatomical Collection Method Collection Time Receive d Time (Source) Location / / Volume Laterality Blood specimen 10/17/2016 11:36 7 (specimen) AM POLYGRAPH EXAMINER 11:37 AM POLYGRAPH EXAMINER Teresita Garcia MD LAB - BLOOD ORDERABLES Performing Organization Address City/State/ZIP Code Phon e Number [facility] [address] [place] [address] Hepatitis C Screen Reflex to HCV RNA Quant and Genotype (10/17/2016 11:36 AM POLYGRAPH EXAMINER) Component Value Ref Test Analysis Performed At [facility] AUTOFACT Range Method Time Signature Hepatitis C Nonreactive NR [facility] Antibody Assay performance character istics have not been established for newborns, [facility] infants, and children [facility] Specimen Anatomical Collection Method Collection Time Receive d Time (Source) Location / / Volume Laterality Blood specimen 10/17/2016 11:36 7 (specimen) AM POLYGRAPH EXAMINER 11:37 AM POLYGRAPH EXAMINER Teresita Garcia MD LAB - BLOOD ORDERABLES Performing Organization Address City/State/ZIP Code Phon e Number [facility] [address] [place] [address] [place] documented in this encounter Visit Diagnoses Diagnosis Major depressive disorder, single episod e, mild (H) - Primary Major depressive disorder, single episod e, mild Multiple sclerosis (H) Multiple sclerosis Screening for hyperlipidemia Screening for lipoid disorders documented in this encounter Additional Health Concerns Assessment Noted Time PHQ-9 Depression Total Score: 4 10/18/2016 7:15 AM POLYGRAPH EXAMINER documented as of this encounter Care Teams Civil Division Commander Deputy Sheriff Relationship Specialty Start Date End Date Teresita Garcia MD PCP - General Family Practice 01/22/11 [address] [place] [address] documented as of this encounter
--- OUTSIDE RECORDS SUMMARY | 2022-08-27 14:14 | XMS_ITS | Encounter Summary ---
:1960 Author Organization [place] Address [facility] [place] [address] Care Team Providers Name Role Phone Teresita Garcia MD Primary Care Provider Reason for Visit Reason Comments Mouth/Lip Problem Encounter Details Date Type Department Care Team Description 04/07/2015 Office Visit [facility] Otoniel Mccrary (Primary Clinic [place] DEVORAH Burkett Dx) [address] [place] [phone] [phone] Social History Tobacco Use Types Packs/Day Years [...] do you attend restorationist or Not asked buddhism services? Do you [...] Care: ?? You may find that soft, ktsg-uy-kepc foods cause less pain. Avoid sharp or [...] eat or swallow due to pain ?? [phone] [employer]. [address] [place] [address], [place] [address]. All rights reserved. This information is not [...] affect normal/bright Diagnostic Test Results: none ASSESSMENT/PLAN: (769.9) Skin lesion (primary encounter diagnosis) Comment: Appears [...] improve. Sooner if worsening Otoniel Mccrary PA-C [facility] documented in this encounter Nursing Notes [...] tissue documented in this encounter Care Teams Automobile Service Advisor Relationship Specialty Start Date End Date Teresita Garcia MD PCP - General Family Practice 01/22/11 [address] [place] [address] documented as of this encounter
--- OUTSIDE RECORDS SUMMARY | 2022-08-27 14:14 | XMS_ITS | Encounter Summary ---
:1960 Author Organization [place] Address [facility] [place] [address] Care Team Providers Name Role Phone Teresita Garcia MD Primary Care Provider Reason for Visit Reason Comments Shoulder Injury left shoulder pain - fell on it x2 days Encounter Details Date Type Department Care Team Description 09/15/[address] [facility] Teresita Garcia MD Shoulder injury, left, initial encounter (Primary Dx); Clinic [address] Mild major depression (H) [address] [place] [phone] Social History Tobacco Use Types Packs/Day [...] do you attend baptist or Not asked pentecostalism services? Do you [...] Comments Blood Pressure 116/82 09/15/2014 1:59 PM SHANK RANDER Pulse 92 09/15/2014 1:59 PM SHANK RANDER Temperature 36.8 ??C (98.3 ??F) 09/15/2014 1:59 PM SHANK RANDER Respiratory Rate 20 09/15/2014 1:59 PM SHANK RANDER Oxygen Saturation 95% 09/15/2014 1:59 PM SHANK RANDER Inhaled Oxygen Concentration - - Weight 77.1 kg (170 lb) 09/15/2014 1:59 PM SHANK RANDER Height 171.5 cm (5' 7.5) 09/15/2014 1:59 PM SHANK RANDER Body Mass Index 26.23 09/15/2014 1:59 PM SHANK RANDER documented in this encounter Progress Notes Teresita [...] scalp ??? Status post hip replacement ??? Xotx-Fgnxv-Nxrlbms disease ??? Atopic rhinitis Past Surgical History [...] questions or concerns. Teresita Garcia MD, MD [facility] K RANDER documented in this encounter Nursing Notes Yumiko Camp, BEAM RACKER - 09/15/2014 2:02 PM CST Chief Complaint [...] using cuff size large Yumiko Camp CMA K RANDER documented in this encounter Plan of Treatment Not on filedocumented as of this encounter Results XR Shoulder Left 2 Views (09/15/2014 2:26 PM SHANK RANDER) Anatomical Region Laterality Modality Shoulder, Chest, Arm Left Computed Radiograph y Specimen (Source) Anatomical Location Collection Method / Collectio n Time Received Time / Laterality Volume Impressions 09/15/2014 3:48 PM SHANK RANDER IMPRESSION: Negative. KELLY GILBERT MD Narrative 09/15/2014 3:48 PM SHANK RANDER XR SHOULDER 2 VIEW LEFT 09/15/2014 3:48 [...] encounter documented in this encounter Care Teams Round Up Ring Hand Relationship Specialty Start Date End Date Teresita Garcia MD PCP - General Family Practice 01/22/11 [address] [place] [address] documented as of this encounter
--- OUTSIDE RECORDS SUMMARY | 2022-08-27 14:14 | XMS_ITS | Encounter Summary ---
:1960 Author Organization [place] Address [address] [facility] [place] [address] Care Team Providers Name Role Phone Teresita Garcia MD Primary Care Provider Reason for Visit Auth/Cert - Closed Specialty Diagnoses / Procedures Referred By Contact Refer red To Contact Gastroenterology Diagnoses screening Rh Endoscopy Procedures COLONOSCOPY [address] [place] [address] Phone: Fax: Referral ID Status Reason Start Date Expiration Date Visits Requ ested Visits Authorized [id number] Closed 1 1 Encounter Details Date Type Department Care Team Description 06/01/2013 Hospital Encounter [facility] Jacob Simmons, Endoscopy Alex KAYE [address] [place], [place] GASTROENTEROLOGY [address] 118[address] [facility] [phone] [address] (Wo rk) Social History Tobacco Use Types [...] you attend roman catholic or Not asked yazidi services? Do you [...] scalp ??? Status post hip replacement ??? Tqqq-Wnfcr-Vlpmbkz disease ??? Atopic rhinitis Past Medical History Diagnosis Date ??? Multiple sclerosis sees neurology at [facility] ??? Juvenile osteochondrosis of hip and pelvis [...] encounter Results COLONOSCOPY (06/01/2013 4:02 PM CDT) [facility] Method Time Signature COLONOSCOPY [facility] RAD IOLOGY RESULTS Patient Name: Dejuan [...] Intra-procedure documented in this encounter Care Teams Artist Color Separation Relationship Specialty Start Date End Date Teresita Garcia MD PCP - General Family Practice 01/22/11 [address] [place] [address] documented as of this encounter
--- OUTSIDE RECORDS SUMMARY | 2022-08-27 14:14 | XMS_ITS | Encounter Summary ---
:1960 Author Organization [place] Address [address] [facility] [place] [address] Care Team Providers Name Role Phone Teresita Garcia MD Primary Care Provider Encounter Details Date Type Department Care Team Description 06/22/2013 Orders Only [facility] Ramón Shine le sclerosis (H) (Primary Dx); [facility] [place] Other ma lai and fatigue; Laboratory Other general symptoms; [address] [facility] Disturbance of skin sensatio n; [place], [place] Lack of cooker sulfite rdination; [address] Other abnormality of urinati on; [phone] Urinary tract i nfection, site not specified [...] do you attend moravian or Not asked pentecostal services? Do you [...] ied documented in this encounter Care Teams Agronomy Technician Relationship Specialty Start Date End Date Teresita Garcia MD PCP - General Family Practice 01/22/11 [address] [place] [address] documented as of this encounter
--- OUTSIDE RECORDS SUMMARY | 2022-08-27 14:14 | XMS_ITS | Encounter Summary ---
:1960 Author Organization [place] Address [address] [facility] [place] [address] Care Team Providers Name Role Phone Teresita Garcia MD Primary Care Provider Reason for Visit Reason Onset Date Comments Nurse Advice Line 10/13/2016 [facility] Encounter Details Date Type Department Care Team Description 10/13/[address] [facility] Teresita Garcia MD Nurse Advice Line [address] ([facility]) [address] [place] [phone] Social History Tobacco Use Types Packs/Day Years [...] do you attend shinto or Not asked confucianism services? Do you [...] dc'd from Facundo flores MS flair 10-15-16 [facility] requesting approval of home care orders Follow up appt 10/17/16 Jose Authorized per protocol Deann Lora RN, BS Message handled by Nurse Triage . TESTING TECHNICIAN documented in this encounter Plan of Treatment Not on filedocumented as of this encounter Visit Diagnoses Not on filedocumented in this encounter Care Teams Filler In Relationship Specialty Start Date End Date Teresita Garcia MD PCP - General Family Practice 01/22/11 [address] [place] [address] documented as of this encounter
--- OUTSIDE RECORDS SUMMARY | 2022-08-27 14:14 | XMS_ITS | Encounter Summary ---
:1960 Author Organization [place] Address [address] [facility] [place] [address] Care Team Providers Name Role Phone Teresita Garcia MD Primary Care Provider Teresita Garcia MD Unavailable Teresita Garcia MD Unavailable Reason for Visit Reason Onset Date Comments Nurse Advice Line 06/08/2017 osteoporesis Encounter Details Date Type Department Care Team Description 06/08/2017 Telephone [facility] Teresita Garcia MD Nurse Advice Line Clinic [address] (osteoporesis) [address] [place] [phone] Social History Tobacco Use Types Packs/Day [...] you attend oriental orthodox or Not asked congregation services? Do you [...] daily. Teresita Garcia MD [facility] [phone] Telephone Encounter - Deann Lora RN - 06/08/2017 3:40 PM CDT Pt called in again about calcium States he had dexa scan at [facility] within last or so, showed OP Wondering [...] Depression Total Score: 4 10/18/2016 7:15 AM BUSINESS CENTER REPRESENTATIVE documented as of this encounter Care Teams Transplant Coordinator Relationship Specialty Start Date End Date Teresita Garcia MD PCP - General Family Practice 01/22/11 [address] [place] [address] Teresita Garcia MD PCP - Assigned PCP 11/16/16 11/30/18 [address] [place] [address] Teresita Garcia MD Assigned PCP 11/16/16 12/28/21 [address] [place] [address] documented as of this encounter
--- OUTSIDE RECORDS SUMMARY | 2022-08-27 14:14 | XMS_ITS | Encounter Summary ---
:1960 Author Organization [place] Address [address] [facility] [place] [address] Care Team Providers Name Role Phone Teresita Garcia MD Primary Care Provider Reason for Visit Auth/Cert - Closed Specialty Diagnoses / Procedures Referred By Contact Refer red To Contact Gastroenterology Diagnoses screening Endoscopy Procedures COLONOSCOPY [address] [place] [address] Phone: Fax: Referral ID Status Reason Start Date Expiration Date Visits Requ ested Visits Authorized [id number] Closed 1 1 Encounter Details Date Type Department Care Team Description 06/01/2013 Surgery [facility] Endoscopy Jacob Bhagat MD Colonoscopy [facility] GASTROENTEROLOGY [address] [facility] [address] [place] [address] [place] [address] [phone] (Wo rk) Surgery Details Date/Time Status Location [...] do you attend quaker or Not asked mu-ism services? Do you belong to any clubs or Not asked organizations such as quaker groups, unions, fraLonely Sock or athletic groups, or school groups? How [...] scalp ??? Status post hip replacement ??? Iwjl-Thxtk-Ytjphxn disease ??? Atopic rhinitis Past Medical History Diagnosis Date ??? Multiple sclerosis sees neurology at [facility] ??? Juvenile osteochondrosis of [...] encounter Results COLONOSCOPY (06/01/2013 4:02 PM CDT) [facility] Method Time Signature COLONOSCOPY [facility] RAD IOLOGY RESULTS Patient Name: Dejuan Mayes [...] Intra-procedure documented in this encounter Care Teams Yard Warehouse Worker Relationship Specialty Start Date End Date Teresita Garcia MD PCP - General Family Practice 01/22/11 [address] [place] [address] documented as of this encounter
--- OUTSIDE RECORDS SUMMARY | 2022-08-27 14:14 | XMS_ITS | Encounter Summary ---
:1960 Author Organization [place] Address [address] [facility] [place] [address] Care Team Providers Name Role Phone Teresita Garcia MD Primary Care Provider Teresita Garcia MD Unavailable Teresita Garcia MD Unavailable Reason for Visit Reason Comments Pre-Op Exam Encounter Details Date Type Department Care Team Description 01/20/2017 Office Visit [facility] Teresita Garcia MD Preop general physical exam (Primary Dx) ; Clinic [address] [phone] Social History Tobacco Use Types Packs/Day [...] do you attend holiness or Not asked church services? Do you [...] Garcia MD - 01/20/2017 11:05 AM CDT [address] [phone] Dept: [phone] PRE-OP EVALUATION: Today's date: 01/20/2017 Dejuan Rodriguez (: 1960) presents for pre-operative evaluation assessment as requested byDr. Enriquez. He requires evaluation and anesthesia risk assessment prior to undergoing surgery/procedure for treatment of pump . Proposed procedure: pump replacement Date of Surgery/ Procedure: 01/27/17 Time of Surgery/ Procedure: 10:30 Hospital/Surgical Facility: [facility] Surgery Primary Physician: Teresita Garcia Type of [...] process. Provider to review and confirm.) ??? Zzbe-Yaaiv-Hhvkdzz disease 05/14/2011 Priority: Medium ??? Atopic rhinitis [...] Multiple sclerosis (H) sees neurology at [facility] ??? Other specified disorder of bladder neurogenic- [...] evaluation report is provided to requesting physician. [place] Preop Guidelines documented in this encounter Nursing [...] Depression Total Score: 4 10/18/2016 7:15 AM RECRUITING ASSISTANT documented as of this encounter Care Teams Funeral Director And Embalmer Relationship Specialty Start Date End Date Teresita Garcia MD PCP - General Family Practice 01/22/11 [address] [place] [address] Teresita Garcia MD PCP - Assigned PCP 11/16/16 11/30/18 [address] [place] [address] Teresita Garcia MD Assigned PCP 11/16/16 12/28/21 [address] [place] [address] documented as of this encounter
--- OUTSIDE RECORDS SUMMARY | 2022-08-27 14:14 | XMS_ITS | Encounter Summary ---
:1960 Author Organization [place] Address [address] [facility] [place] [address] Care Team Providers Name Role Phone Teresita Garcia MD Primary Care Provider Teresita Garcia MD Unavailable Teresita Garcia MD Unavailable Reason for Visit Reason Comments Ear Problem left ear plugged x1 week Encounter Details Date Type Department Care Team Description 05/08/2017 Office Visit [facility] Teresita Garcia MD Bilateral impacted Clinic [address] (Primary Dx) [phone] [place] [phone] Social History Tobacco Use Types Packs/Day [...] do you attend quaker or Not asked quaker services? Do you [...] scalp ??? Status post hip replacement ??? Gehw-Gsoez-Tjwytvo disease ??? Atopic rhinitis ??? Major depressive disorder, single episode, mild (H) ??? Osteoporosis Past Surgical History: Procedure Laterality Date ??? C TOTAL HIP ARTHROPLASTY Hip Replacement, Total x2 due to Legg Perthes ??? COLONOSCOPY 06/01/2013 Procedure: COLONOSCOPY; Colonoscopy; Surgeon: Jacob iSmmons MD; Location: GI Social History Substance Use [...] 3 For future attacks. Teresita Garcia MD [facility] documented in this encounter Nursing Notes Yumiok Camp CMA - 05/08/2017 9:45 AM CDT [...] Depression Total Score: 4 10/18/2016 7:15 AM SHOULDER PAD MOLDER documented as of this encounter Care Teams Vice President For Philanthropy Relationship Specialty Start Date End Date Teresita Garcia MD PCP - General Family Practice 01/22/11 [address] [place] [address] Teresita Garcia MD PCP - Assigned PCP 11/16/16 11/30/18 [address] [place] [address] Teresita Garcia MD Assigned PCP 11/16/16 12/28/21 [address] [place] [address] documented as of this encounter
--- OUTSIDE RECORDS SUMMARY | 2022-08-27 14:14 | XMS_ITS | Encounter Summary ---
:1960 Author Organization [place] Address [address] [facility] [place] [address] Care Team Providers Name Role Phone Teresita Garcia MD Primary Care Provider Teresita Garcia MD Unavailable Teresita Garcia MD Unavailable Encounter Details Date Type Department Care Team Description 12/16/2016 Medical Correspondence [facility] HIM [facility] Non-Provider DOCUMENTATION OF FACE Health Information TO FACE E NCOUNTER Management-CHERISE 10/17/[address] [place] [address] Social History Tobacco Use Types [...] do you attend episcopalian or Not asked hinduism services? Do you [...] Depression Total Score: 4 10/18/2016 7:15 AM WIRE STRAIGHTENING MACHINE OPERATOR documented as of this encounter Care Teams Student Recruiter Relationship Specialty Start Date End Date Teresita Garcia MD PCP - General Family Practice 01/22/11 [address] [place], [place] [phone] Teresita Garcia MD PCP - Assigned PCP 11/16/16 11/30/18 [address] [place] [address] Teresita Garcia MD Assigned PCP 11/16/16 12/28/21 [address] [place], [place] [id number] documented as of this encounter
--- OUTSIDE RECORDS SUMMARY | 2022-08-27 14:14 | XMS_ITS | Encounter Summary ---
:1960 Author Organization [place] Address [address] [facility] [place] [address] Care Team Providers Name Role Phone Teresita Garcia MD Primary Care Provider Teresita Garcia MD Unavailable Teresita Garcia MD Unavailable Encounter Details Date Type Department Care Team Description 10/16/2016 Medical Correspondence [facility] 10/16/16 - Health Information 12/14/16 Management-CHERISE [address] [place] [address] Social History Tobacco Use Types [...] do you attend shinto or Not asked amish services? Do you [...] on filedocumented in this encounter Care Teams Upholsterer Assembly Line Relationship Specialty Start Date End Date Teresita Garcia MD PCP - General Family Practice 01/22/11 [address] [place] [address] Teresita Garcia MD PCP - Assigned PCP 11/16/16 11/30/18 [address] [place] [address] Teresita Garcia MD Assigned PCP 11/16/16 12/28/21 [address] [place] [address] documented as of this encounter
--- OUTSIDE RECORDS SUMMARY | 2022-08-27 14:14 | XMS_ITS | Encounter Summary ---
:1960 Author Organization [place] Address [address] [place] [address] Care Team Providers Name Role Phone Teresita Garcia MD Primary Care Provider Teresita Garcia MD Unavailable Teresita Garcia MD Unavailable Reason for Visit Reason Onset Date Comments Forms 11/26/2016 [facility] Encounter Details Date Type Department Care Team Description 11/26/2016 Telephone [facility] Teresita Garcia MD Forms ([address]) [address] [place] [phone] Social History Tobacco Use Types [...] do you attend zoroastrianism or Not asked sabianist services? Do you [...] CST Form completed and faxed,11/27/16 Jackie Brito/AWILDA GER OF PURCHASING Telephone Encounter - Malena Hankins - 11/26/2016 1:52 PM CST Recd 2 page fax from [facility]. Please complete Face to Face Encounter and fax to [phone]. Form in AA folder at [place]. Malena Hankins Hand Splitter GER OF PURCHASING documented in this encounter Plan of Treatment Not on filedocumented as of this encounter Visit Diagnoses Not on filedocumented in this encounter Additional Health Concerns Assessment Noted Time PHQ-9 Depression Total Score: 4 10/18/2016 7:15 AM MANAGER OF PURCHASING documented as of this encounter Care Teams Calculus Tutor Relationship Specialty Start Date End Date Teresita Garcia MD PCP - General Family Practice 01/22/11 [address] [place] [address] Teresita Garcia MD PCP - Assigned PCP 11/16/16 11/30/18 [address] [place] [address] Teresita Garcia MD Assigned PCP 11/16/16 12/28/21 [address] [place] [address] documented as of this encounter
--- OUTSIDE RECORDS SUMMARY | 2022-08-27 14:14 | XMS_ITS | Encounter Summary ---
:1960 Author Organization [place] Address [address] [place] [address]. [place] [address] Care Team Providers Name Role Phone Teresita Garcia MD Primary Care Provider Reason for Visit Reason Onset Date Comments Refill Request 01/04/2014 Ketokonazole Shampoo and Hydrocortisone Encounter Details Date Type Department Care Team Description 01/04/2014 Refill [facility] Roel Garcia MD Refill Request [address] (Ketokonazole Shampoo [address] [place], [place] and Hydrocortisone) [place] [phone] Social History Tobacco Use Types Packs/Day Years [...] do you attend sikhism or Not asked gnosticism services? Do you [...] dermatitis documented in this encounter Care Teams Wheel Alignment Mechanic Relationship Specialty Start Date End Date Teresita Garcia MD PCP - General Family Practice 01/22/11 [address] [place] [address] documented as of this encounter
--- OUTSIDE RECORDS SUMMARY | 2022-08-27 14:14 | XMS_ITS | Encounter Summary ---
:1960 Author Organization [place] Address [facility] [place] [address] Care Team Providers Name Role Phone Teresita Garcia MD Primary Care Provider Reason for Visit Reason Onset Date Comments Medication Request 09/26/2014 Shoulder Pain 09/26/2014 Encounter Details Date Type Department Care Team Description 09/26/[address] [facility] Teresita Garcia MD Medication Request; Clinic [place] [phone] [place] [address] Shoulder Pain [address] [place] [phone] Social History Tobacco Use Types Packs/Day Years [...] do you attend catholic or Not asked worship services? Do you [...] and sent to pharmacy. Ingrid Vallejo CMA ONOLOGIST INTENSIVIST Telephone Encounter - Teresita Garcia MD - 09/27/2014 8:04 AM CST We can try anti-inflammatory, if it is ok with the [place] physician. I will send a prescription for him. ONOLOGIST INTENSIVIST Telephone Encounter - Mary More RN - [...] shoulder. Please advise. Call patient back at [phone]. Mary More RN ONOLOGIST INTENSIVIST documented in this encounter Plan of Treatment Not on filedocumented as of this encounter Visit Diagnoses Diagnosis Left shoulder pain - Primary Pain in joint, shoulder region documented in this encounter Care Teams Percussion Teacher Relationship Specialty Start Date End Date Teresita Garcia MD PCP - General Family Practice 01/22/11 [address] [place] [address] documented as of this encounter
--- OUTSIDE RECORDS SUMMARY | 2022-08-27 14:14 | XMS_ITS | Encounter Summary ---
:1960 Author Organization [place] Address [address] [place] [address] Care Team Providers Name Role Phone Teresita Garcia MD Primary Care Provider Reason for Visit Reason Onset Date Comments Home Care/Hospice 10/20/2016 home care assessment Encounter Details Date Type Department Care Team Description 10/20/2016 Telephone [facility] Teresita Garcia MD Home Care/Hospice (home Clinic [address] care assessment) [address] [place] [phone] Social History Tobacco Use Types Packs/Day Years [...] do you attend gnosticist or Not asked anglican services? Do you [...] RN, BSN Message handled by Nurse Triage. Y FORMING MACHINE OPERATOR documented in this encounter Plan of Treatment Not on filedocumented as of this encounter Visit Diagnoses Not on filedocumented in this encounter Additional Health Concerns Assessment Noted Time PHQ-9 Depression Total Score: 4 10/18/2016 7:15 AM CANDY FORMING MACHINE OPERATOR documented as of this encounter Care Teams Betting Clerks Relationship Specialty Start Date End Date Teresita Garcia MD PCP - General Family Practice 01/22/11 [address] [place] [address] documented as of this encounter
--- OUTSIDE RECORDS SUMMARY | 2022-08-27 14:14 | XMS_ITS | Encounter Summary ---
:1960 Author Organization [place] Address [facility] [place] [address] Care Team Providers Name Role Phone Teresita Garcia MD Primary Care Provider Encounter Details Date Type Department Care Team Description 09/15/[address] [facility] Teresita Garcia MD Shoulder injury, Clinic [place] [address] [facility] [place] [address] [facility] AV encounter [facility], [address] [place] [address] [phone] Social History Tobacco Use Types Packs/Day Years [...] do you attend yazdanism or Not asked episcopalian services? Do you [...] PM Shoulder injury, Results for this VIEWS RELIGIOUS EDUCATION TEACHER left, initial procedure are in encounter the results section. documented in this encounter Results XR Shoulder Left 2 Views (09/15/2014 2:26 PM RELIGIOUS EDUCATION TEACHER) Anatomical Region Laterality Modality Shoulder, Chest, Arm Left Computed Radiograph y Specimen (Source) Anatomical Location Collection Method / Collectio n Time Received Time / Laterality Volume Impressions 09/15/2014 3:48 PM RELIGIOUS EDUCATION TEACHER IMPRESSION: Negative. KELLY GILBERT MD Narrative 09/15/2014 3:48 PM RELIGIOUS EDUCATION TEACHER XR SHOULDER 2 VIEW LEFT 09/15/2014 3:48 [...] encounter documented in this encounter Care Teams Medical Front Desk Specialist Relationship Specialty Start Date End Date Teresita Garcia MD PCP - General Family Practice 01/22/11 [address] [place] [address] documented as of this encounter
--- OUTSIDE RECORDS SUMMARY | 2022-08-27 14:14 | XMS_ITS | Encounter Summary ---
:1960 Author Organization [place] Address [facility] [place] [address] Care Team Providers Name Role Phone Teresita Garcia MD Primary Care Provider Reason for Visit Reason Onset Date Comments Refill Request 07/01/2016 ketoconazole (NIZORA L) 2 % shampoo Encounter Details Date Type Department Care Team Description 07/01/2016 Refill [facility] Roel Garcia MD Refill Request [place] [id number] [place] [address] (ketoconazole (NIZORAL) [address] [place], [place] 2 % shampoo) [place], [place] [id number] [phone] Social History Tobacco Use Types Packs/Day Years [...] do you attend sabianist or Not asked scientologist services? Do you [...] schedule an appointment before next refill. Sydni Nomran RN Telephone Encounter - Karen Dolan - 07/01/2016 12:17 PM CDT ketoconazole (NIZORAL) 2 % shampoo Last Written Prescription Date: 01/04/2014 Last Fill Quantity: 120mL, # refills: 1 Last Office Visit with G, P or [facility] prescribing provider: 04/07/2015 Demetra documented in this encounter Plan of Treatment Not on filedocumented as of this encounter Visit Diagnoses Diagnosis Seborrheic dermatitis of scalp - Primary Other seborrheic dermatitis documented in this encounter Care Teams Supervisor Special Education Relationship Specialty Start Date End Date Teresita Garcia MD PCP - General Family Practice 01/22/11 [address] [place] [address] documented as of this encounter
--- OUTSIDE RECORDS SUMMARY | 2022-08-27 14:15 | XMS_ITS | Encounter Summary ---
:1960 Author Organization [place] Address [address] [facility] [place] [address] Care Team Providers Name Role Phone Teresita Garcia MD Primary Care Provider Reason for Visit Reason Onset Date Comments Call to schedule test 05/03/2013 GI Pit Worker Power Shovel Encounter Details Date Type Department Care Team Description 05/03/2013 Telephone [facility] Marysol Andrews to schedule test [facility] [place] (GI Pit Worker Power Shovel) [address] [place] [phone] Social History Tobacco Use Types Packs/Day Years [...] do you attend yarsanism or Not asked jew services? Do you [...] on filedocumented in this encounter Care Teams Char Belt Operator Relationship Specialty Start Date End Date Teresita Garcia MD PCP - General Family Practice 01/22/[id number] [place] [address] documented as of this encounter
--- OUTSIDE RECORDS SUMMARY | 2022-08-27 14:15 | XMS_ITS | Encounter Summary ---
:1960 Author Organization [place] Address [address] [facility] [place] [address] Care Team Providers Name Role Phone Teresita Garcia MD Primary Care Provider Encounter Details Date Type Department Care Team Description 07/07/2011 Orders Only [facility] Mul tiple sclerosis (H) [facility] (Primary Dx) [address] [place] [address] Social History Tobacco Use Types [...] you attend latter day or Not asked jew services? Do you [...] Component Value Ref Test Analysis Performed At [facility] gist Range Method Time Signature 25 [place] Vit D2 <5 ug/L [facility] 25 [place] Vit D3 42 ug/L [facility] 25 [place] Vit D <47 30 - 75 [facility] total Season, race, dietary intake, and treatm ent affect the concentration of ug/L [facility] 38-tgwiiid-Aekduzf D. Values may decrease during michelle er [...] Organization Address City/State/ZIP Code Phon e Number [address] [address] [facility] AST (07/07/2011 1:47 PM CDT) athologist Signature AST 23 0 - 55 U/L [facility] Specimen Anatomical Collection Method Collection Time Receive d Time (Source) Location / / Volume Laterality Blood specimen 07/07/2011 1:47 PM 011 1:48 (specimen) CDT PM CDT Ramón Shine MD LAB - BLOOD ORDERABLES Performing Organization Address City/State/ZIP Code Phon e Number [facility] [address] [place] [address] [facility] CBC with platelets (07/07/2011 1:47 PM CDT) P athologist Signature WBC 7.4 4.0 - 11.0 [place] 10e9/L [facility] RBC Count 4.82 4.4 - 5.9 [place] 10e12/L [facility] Hemoglobin 14.8 13.3 - [facility] 17.7 g/dL [facility] Hematocrit 42.7 40.0 - [facility] 53.0 % [facility] MCV 89 78 - 100 [facility] fl [facility] MCH 30.7 26.5 - [place] 33.0 pg [facility] MCHC 34.7 31.5 - [facility] 36.5 g/dL [facility] RDW 13.4 10.0 - [facility] 15.0 % [facility] Platelet Count 178 150 - 450 [facility] 10e9/L [facility] Specimen Anatomical Collection Method Collection Time Receive d Time (Source) Location / / Volume Laterality Blood specimen 07/07/2011 1:47 PM 011 1:48 (specimen) CDT PM CDT Ramón Shine MD LAB - BLOOD ORDERABLES Performing Organization Address City/State/ZIP Code Phon e Number [facility] [address] [place] [address] [facility] documented in this encounter Visit Diagnoses Diagnosis Multiple sclerosis (H) - Primary Multiple sclerosis documented in this encounter Care Teams Rubber Compounder Supervisor Relationship Specialty Start Date End Date Teresita Garcia MD PCP - General Family Practice 01/22/[id number] [place] [address] documented as of this encounter
--- OUTSIDE RECORDS SUMMARY | 2022-08-27 14:15 | XMS_ITS | Encounter Summary ---
:1960 Author Organization [place] Address [address] [place] [address] Care Team Providers Name Role Phone Teresita Garcia MD Primary Care Provider Reason for Referral Referral not Required - Closed Specialty Diagnoses / Procedures Referred By Contact Refer red To Contact Diagnoses Screen for colon cancer Teresita Garcia MD [facility] [id number] [place] [address] [phone] [place] [address] Phone: Fax: Referral ID Status Reason Start Date Expiration Date Visits Requ ested Visits Authorized [id number] Closed 04/19/2013 10/16/2013 1 1 Reason for Visit Reason Comments Pre-Op Exam surgery 05/04/13 [place] Encounter Details Date Type Department Care Team Description 04/19/2013 Office Visit [facility] Teresita Garcia MD Preop general physical exam (Primary Dx) ; Clinic [place] [id number] [place] [address]; [address] [place], [place] for [place] [phone] Social History Tobacco Use Types Packs/Day Years [...] do you attend advent or Not asked spiritism services? Do you belong to any clubs or Not asked organizations such as advent groups, unions, fraAppsco or athletic groups, or school groups? How [...] Garcia MD - 04/19/2013 11:12 AM CDT [place] [address] Dept: [phone] PRE-OP EVALUATION: Today's date: 04/19/2013 Deujan Rodriguez (: 1960) presents for pre-operative evaluation assessment as requested byDr. Roy. He requires evaluation and anesthesia risk assessment prior to undergoing surgery/procedure for treatment of urology problem . Proposed procedure: Cysto Bladder Date of Surgery/ Procedure: 05/04/13 Time of Surgery/ Procedure: [facility]/Surgical Facility: [facility] Fax number for surgical facility: [phone] Primary Physician: Teresita Garcia Type of Anesthesia [...] process. Provider to review and confirm.) ??? Zbfi-Bkizu-Xcvvfzj disease 05/14/2011 ??? Atopic rhinitis 05/14/2011 (Problem [...] Date ??? Multiple sclerosis sees neurology at [facility] ??? Juvenile osteochondrosis of hip and pelvis [...] cardiovascular risks for perioperative complications such as ([place], PE, VFib and 3?? AV Block): No [...] evaluation report is provided to requesting physician. [place] Preop Guidelines 2013 documented in this encounter Nursing Notes 04/19/2013 11:00 AM CDT >> RACHELLE Soto Apr 19, 2013 11:12 AM Patient presents with: Pre-Op Exam - surgery 8/7/13 [place] Initial BP 116/80 Pulse 72 Temp 98 [...] Name Type Priority Associated Diagnoses Order S [facility] GASTROENTEROLOGY ADULT Referral Routine Screen for [...] Microscopic and Culture (04/19/2013 11:53 AM CDT) [facility] Method Time Signature Color Urine Yellow [facility] Appearance Urine Clear [facility] Glucose Urine Negative NEG mg/dL [facility] Bilirubin Urine Negative NEG [facility] Ketones Urine Negative NEG mg/dL [facility] Specific [place] 1.010 1.003 - [place] Urine 1.035 [facility] Blood Urine Negative NEG [facility] pH Urine 6.0 5.0 - 7.0 [place] pH [facility] Protein Albumin Negative NEG mg/dL [place] Urine [facility] Urobilinogen 0.2 0.2 - 1.0 [place] Urine EU/dL [facility] Nitrite Urine Negative NEG [facility] Leukocyte Negative NEG [place] Esterase Urine [facility] Source Midstream [place] Urine [facility] Specimen Anatomical Collection Method Collection Time Receive d Time (Source) Location / / Volume Laterality Urine specimen 04/19/2013 11:53 3 (specimen) AM CDT 11:54 AM CDT Teresita Garcia MD LAB - URINE ORDERABLES Performing Organization Address City/State/[facility] Code Phon e Number [facility] [address] [place] [address] [facility] [address] [place] [address] Hepatic panel (04/19/2013 11:52 AM CDT) athologist Signature Bilirubin 0.0 0.0 - 0.3 [facility] Conjugated mg/dL CLINIC LAB Bilirubin Delta 0.1 0.0 - 0.4 [place] mg/dL [facility] Bilirubin Total 1.2 0.2 - 1.3 [place] mg/dL [facility] Albumin 4.5 3.9 - 5.1 [facility] g[facility] Comment: Reference range changed on 05/30. Protein Total 7.5 6.8 - 8.8 g/dL [place] [facility] Comment: As of 08, reference range reflects plasma specimen type. Alkaline Phosphatase 65 40 - 150 U/L [facility] [place] [facility] ALT 37 0 - 70 U/L [place] [facility] LAB AST 23 0 - 45 U/L [place] [facility] [facility] Specimen Anatomical Collection Method Collection Time Receive d Time (Source) Location / / Volume Laterality Blood specimen 04/19/2013 11:52 3 (specimen) AM CDT 11:53 AM CDT Teresita Garcia MD LAB - BLOOD ORDERABLES Performing Organization Address City/[facility] Phon e Number [facility] [address] [facility] [place] [address] [phone] [facility] [facility] [place] [address] [phone] (ABNORMAL) Basic metabolic panel (04/19/2013 11:52 AM CDT) P athologist Signature Sodium 144 133 - 144 [place] mmol/L [facility] Potassium 4.1 3.4 - 5.3 [place] mmol/L [facility] Chloride 105 94 - 109 [place] mmol/L [facility] Carbon Dioxide 27 20 - 32 [place] mmol/L [facility] Anion Gap 12 6 - 17 [place] mmol/L [facility] Glucose 103 (H) 60 - 99 [place] mg/dL [facility] Urea Nitrogen 13 7 - 30 [place] mg/dL [facility] Creatinine 1.09 0.66 - [place] 1.25 mg/dL [facility] GFR Estimate 71 >60 [place] mL/min/1.7 [facility] m2 LAB GFR Estimate If 86 >60 [place] Black mL/min/1.7 [facility] m2 LAB Calcium 9.7 8.5 - 10.4 [place] mg/dL [facility] Specimen Anatomical Collection Method Collection Time Receive d Time (Source) Location / / Volume Laterality Blood specimen 04/19/2013 11:52 3 (specimen) AM CDT 11:53 AM CDT Teresita Garcia MD LAB - BLOOD ORDERABLES Performing Organization Address City/[facility] Code Phon e Number [facility] [address] [place] [address] [phone] [facility] [address] [facility] [place] [address] [phone] CBC with platelets (04/19/2013 11:52 AM CDT) P athologist Signature WBC 6.6 4.0 - 11.0 [place] 10e9/L [facility] RBC Count 4.77 4.4 - 5.9 [place] 10e12/L [facility] Hemoglobin 15.0 13.3 - [place] 17.7 g/dL [facility] Hematocrit 42.8 40.0 - [place] 53.0 % [facility] MCV 90 78 - 100 [facility] MCH 31.4 26.5 - [place] 33.0 pg [facility] MCHC 35.0 31.5 - [place] 36.5 g/dL [facility] RDW 12.7 10.0 - [place] 15.0 % [facility] Platelet Count 175 150 - 450 [facility] 10e9/L [facility] Specimen Anatomical Collection Method Collection Time Receive d Time (Source) Location / / Volume Laterality Blood specimen 04/19/2013 11:52 3 (specimen) AM CDT 11:53 AM CDT Teresita Garcia MD LAB - BLOOD ORDERABLES Performing Organization Address City/State/ZIP Code Phon e Number [facility] [id number] [place] [address] [facility] [address] [place] [address] documented in this encounter Visit Diagnoses Diagnosis Preop general physical exam - Primary Other specified pre-operative examinatio n Eczema Contact dermatitis and other eczema, due to unspecified cause Screen for colon cancer Special screening for malignant neoplasm s, colon documented in this encounter Care Teams Furnace Feeder Relationship Specialty Start Date End Date Teresita Garcia MD PCP - General Family Practice 01/22/[id number] [place] [address] documented as of this encounter
--- OUTSIDE RECORDS SUMMARY | 2022-08-27 14:15 | XMS_ITS | Encounter Summary ---
:1960 Author Organization [place] Address [facility] [place] [address] Care Team Providers Name Role Phone Jonathan Velásquez MD Primary Care Provider Reason for Visit Reason Comments Flu Walk-in:Flu like symptoms Encounter Details Date Type Department Care Team Description 10/02/2010 Allied Health/Nurse [facility] Flu (Walk-in:Flu like Visit Clinic [facility], [address] [place] [address] Social History Tobacco Use Types [...] 36.4 ??C (97.6 ??F) 10/02/2010 3:24 PM COAL HAULER Respiratory Rate - - Oxygen Saturation - [...] Patient comfortable with advice. Haily Adams RN HAULER documented in this encounter Plan of Treatment Not on filedocumented as of this encounter Visit Diagnoses Diagnosis Flu-like symptoms - Primary Influenza with other respiratory manifes tations documented in this encounter Care Teams Nuclear Test Technician Relationship Specialty Start Date End Date Jonathan Velásquez MD PCP - General 11/10/05 01/21/11 documented as of this encounter
--- OUTSIDE RECORDS SUMMARY | 2022-08-27 14:15 | XMS_ITS | Encounter Summary ---
:1960 Author Organization [place] Address [address] [facility] [place] [address] Care Team Providers Name Role Phone Teresita Garcia MD Primary Care Provider Encounter Details Date Type Department Care Team Description 09/08/[address] [facility] Enc ounter for long-term (current) use of other medications; [place] [facility] Other malaise and fatigue; [address] [place] [address] Multiple sclerosis ([place]) [place] [address] Social History Tobacco Use Types [...] do you attend temple or Not asked alevism services? Do you [...] PM Encounter for Resul ts for this ACID ETCH OPERATOR long-term (current) procedur e are in use of other the results medications section. Other malaise and fatigue Multiple sclerosis (H) AST Routine 09/08/2011 3:52 PM Encounter for Results for this ACID ETCH OPERATOR long-term (current) procedur e are in use of other the results medications section. Other malaise and fatigue Multiple sclerosis (H) ALT Routine 09/08/2011 3:52 PM Encounter for Results for this ACID ETCH OPERATOR long-term (current) procedur e are in use of other the results medications section. Other malaise and fatigue Multiple sclerosis (H) documented in this encounter Results Bilirubin, total (09/08/2011 3:52 PM ACID ETCH OPERATOR) athologist Signature Bilirubin Total 0.7 0.2 - 1.3 [facility] mg/dL CLINIC LAB Specimen Anatomical Collection Method Collection Time Receive d Time (Source) Location / / Volume Laterality Blood specimen 09/08/2011 3:52 PM 011 3:53 (specimen) ACID ETCH OPERATOR PM ACID ETCH OPERATOR Ramón Shine MD LAB - BLOOD ORDERABLES Performing Organization Address [facility] Phon e Number [facility] [address] [place] [address] [phone] [facility] ALT (09/08/2011 3:52 PM ACID ETCH OPERATOR) athologist Signature ALT 27 0 - 70 U/L [facility] Specimen Anatomical Collection Method Collection Time Receive d Time (Source) Location / / Volume Laterality Blood specimen 09/08/2011 3:52 PM 011 3:53 (specimen) ACID ETCH OPERATOR PM ACID ETCH OPERATOR Ramón Shine MD LAB - BLOOD ORDERABLES Performing Organization Address [facility] Phon e Number [facility] [place] [address] [place] [address] [phone] [facility] AST (09/08/2011 3:52 PM ACID ETCH OPERATOR) athologist Signature AST 24 0 - 55 U/L [facility] Specimen Anatomical Collection Method Collection Time Receive d Time (Source) Location / / Volume Laterality Blood specimen 09/08/2011 3:52 PM 011 3:53 (specimen) ACID ETCH OPERATOR PM ACID ETCH OPERATOR Ramón Shine MD LAB - BLOOD ORDERABLES Performing Organization Address City/State/ZIP Code Phon e Number [facility] [address] [place] [address] [facility] documented in this encounter Visit Diagnoses Diagnosis Encounter for long-term (current) use of other medications Other malaise and fatigue Multiple sclerosis (H) Multiple sclerosis documented in this encounter Care Teams Cocoa Room Operator Relationship Specialty Start Date End Date Teresita Garcia MD PCP - General Family Practice 01/22/11 [address] [place] [address] documented as of this encounter
--- OUTSIDE RECORDS SUMMARY | 2022-08-27 14:15 | XMS_ITS | Encounter Summary ---
:1960 Author Organization [place] Address [address] [place] [address] Care Team Providers Name Role Phone Jonathan Velásquez MD Primary Care Provider Reason for Visit Reason Comments Back Pain Constipation Encounter Details Date Type Department Care Team Description 10/03/2010 Office Visit [facility] Teresita Garcia MD Back pain (Primary Dx) Clinic [address] [address] [place], [place] [address] [address] [place], [place] [phone] [address] (Work) [phone] Social History Tobacco Use Types Packs/Day Years [...] Comments Blood Pressure 100/68 10/03/2010 2:13 PM APPRENTICE EMBALMER Pulse 71 10/03/2010 2:13 PM APPRENTICE EMBALMER Temperature 36.6 ??C (97.8 ??F) 10/03/2010 2:13 PM APPRENTICE EMBALMER Respiratory Rate 16 10/03/2010 2:13 PM APPRENTICE EMBALMER Oxygen Saturation 97% 10/03/2010 2:13 PM APPRENTICE EMBALMER Inhaled Oxygen Concentration - - Weight 74.8 kg (165 lb) 10/03/2010 2:13 PM APPRENTICE EMBALMER Height 167.6 cm (5' 6) 10/03/2010 2:13 PM APPRENTICE EMBALMER Body Mass Index 26.63 10/03/2010 2:13 PM APPRENTICE EMBALMER documented in this encounter Progress Notes Teresita [...] worsen or fail to improve as anticipated. ENTICE EMBALMER documented in this encounter Nursing Notes 10/03/2010 [...] encounter: 165 lb(74.844 kg). TETANUS IMMUNIZATION ( [place] ASSIGNED) due on 1973 BP completed using cuff size: large. Leonardo Castillo MA documented in this encounter Plan of Treatment Not on filedocumented as of this encounter Procedures Procedure Name Priority Date/Time Associated Comments Diagnosis URINE CULTURE Routine 10/03/2010 3:01 PM Back pain Results for this APPRENTICE EMBALMER procedure are i n the results section. UA MACROSCOPIC WITH Routine 10/03/2010 2:45 PM Back pain Re sults for this REFLEX TO MICRO APPRENTICE EMBALMER procedure ar e in the results section. URINE MICROSCOPIC Routine 10/03/2010 2:45 PM Resu lts for this EXAM APPRENTICE EMBALMER procedure are i n the results section. documented in this encounter Results URINE CULTURE (10/03/2010 3:01 PM APPRENTICE EMBALMER) Component Value Ref Test Analysis Performed At [facility] Range Method Time Signature Specimen Catheterized [place] Description Urine [facility] Culture Micro No growth [facility] Micro Report FINAL [place] Status 10/06/2010 [facility] Specimen Anatomical Collection Method Collection Time Receive d Time (Source) Location / / Volume Laterality Urine specimen 10/03/2010 3:01 PM 011 3:03 (specimen) APPRENTICE EMBALMER PM APPRENTICE EMBALMER Teresita Garcia MD LAB - MICRO GENERAL ORDERABL ES Performing Organization Address City/State/ZIP Code Phon e Number [facility] [address] [place] [address] [facility] (ABNORMAL) Microscopic exam urine (10/03/2010 2:45 PM APPRENTICE EMBALMER) P athologist Signature WBC Urine O - 2 0 - 2 /HPF [facility] RBC Urine 2-5 (A) 0 - 2 /HPF [facility] Bacteria Urine Few (A) NEG /HPF [facility] Specimen Anatomical Collection Method Collection Time Receive d Time (Source) Location / / Volume Laterality 10/03/2010 2:45 PM 1 2:47 APPRENTICE EMBALMER PM APPRENTICE EMBALMER Teresita Garcia MD LAB - URINE ORDERABLES Performing Organization Address City/[facility] Code Phon e Number [address] [address] [facility] (ABNORMAL) UA macroscopic with reflex to micro (10/03/2010 2:45 PM APPRENTICE EMBALMER) Component Value Ref Test Analysis Performed At Patholo gist Range Method Time Signature Color Urine Yellow [facility] Appearance Clear [place] Urine [facility] Glucose Urine Negative NEG [place] mg/dL [facility] Bilirubin Urine Negative NEG [facility] Ketones Urine Negative NEG [place] mg/dL [facility] Specific <=1.005 1.003 - [place] Urine 1.035 [facility] Blood Urine Trace (A) NEG [facility] pH Urine 5.5 5.0 - [place] 7.0 pH [facility] Protein Albumin Negative NEG [place] Urine mg/dL [facility] Urobilinogen 0.2 0.2 - [place] Urine 1.0 [place] EU/dL [facility] Nitrite Urine Negative NEG [facility] Leukocyte Negative NEG [place] Esterase Urine [facility] Source Catheterized [place] Urine [facility] Specimen Anatomical Collection Method Collection Time Receive d Time (Source) Location / / Volume Laterality Urine specimen 10/03/2010 2:45 PM 011 2:47 (specimen) APPRENTICE EMBALMER PM APPRENTICE EMBALMER Teresita Garcia MD LAB - URINE ORDERABLES Performing Organization Address City/[facility]/ZIP Code Phon e Number [facility] [place] [address] [facility] documented in this encounter Visit Diagnoses Diagnosis Back pain - Primary Backache, unspecified documented in this encounter Care Teams Innovations Paraprofessional Relationship Specialty Start Date End Date Jonathan Velásquez MD PCP - General 11/10/05 01/21/11 documented as of this encounter
--- OUTSIDE RECORDS SUMMARY | 2022-08-27 14:15 | XMS_ITS | Encounter Summary ---
:1960 Author Organization [place] Address [address] [place] [address]. [place] [address] Care Team Providers Name Role Phone Jonathan Velásquez MD Primary Care Provider Reason for Visit Reason Onset Date Comments Refill Request 08/13/2010 selenium sulfide sha mpoo Encounter Details Date Type Department Care Team Description 08/13/2010 Refill [facility] Jonathan Velásquez MD Refill Request (selenium Clinic [place] XXX RETIRED XXX sulfide shampoo) [address] [place] [address] [address] George Chaudhry [place] [facility] [place] [address] [phone] (Wo rk) Social History Tobacco Use Types [...] do you attend tenriism or Not asked yarsani services? Do you [...] scheduled at this time. Mel Fish CMA E CARE ASSISTANT documented in this encounter Plan of Treatment Not on filedocumented as of this encounter Visit Diagnoses Diagnosis Other specified disease of hair and hair follicles documented in this encounter Care Teams Ventilator Specialist Relationship Specialty Start Date End Date Jonathan Velásquez MD PCP - General 11/10/05 01/21/11 documented as of this encounter
--- OUTSIDE RECORDS SUMMARY | 2022-08-27 14:15 | XMS_ITS | Encounter Summary ---
:1960 Author Organization [place] Address [address] [facility] [place] [address] Care Team Providers Name Role Phone Teresita Garcia MD Primary Care Provider Reason for Visit Reason Comments Post-op Problem pump incision on back - has a large bump Refill Request shampoo Encounter Details Date Type Department Care Team Description 03/10/2011 Office Visit [facility] Teresita Garcia MD Benign tumor of back (Primary Dx); Clinic [place] [id number] [place] [address] Baclofen pump failure; [address] [place], [place] Seborrheic dermatitis of sca lp [place], [place] [phone] Social History Tobacco Use Types Packs/Day [...] do you attend religious or Not asked jainism services? Do you [...] dandruff of the scalp. Assessment & Plan: 1)493.0 Other specified disease of hair and hair [...] dermatitis documented in this encounter Care Teams Registered Nurse Midwife Relationship Specialty Start Date End Date Teresita Garcia MD PCP - General Family Practice 01/22/11 [address] [place] [address] documented as of this encounter
--- OUTSIDE RECORDS SUMMARY | 2022-08-27 14:15 | XMS_ITS | Encounter Summary ---
:1960 Author Organization [place] Address [address] [facility] [address] Care Team Providers Name Role Phone Jonathan Velásquez MD Primary Care Provider Reason for Visit Reason Comments Back Pain Encounter Details Date Type Department Care Team Description 08/30/2008 Office Visit [facility] Brad Hernandez ack Pain (Primary Dx); Clinic [place] Salbador Pena MD URI ([facility] Res[facility] Infection) [facility] [address] [place], [place] [address] [address] [facility] [phone] [place], [place] [address] (Wo rk) Social History [...] do you attend judaism or Not asked methodist services? Do you [...] Comments Blood Pressure 92/60 08/30/2008 10:30 AM NON PROFIT JOB TITLES Pulse 70 08/30/2008 10:30 AM NON PROFIT JOB TITLES Temperature 35.3 ??C (95.6 ??F) 08/30/2008 10:30 AM NON PROFIT JOB TITLES Respiratory Rate - - Oxygen Saturation 98% 08/30/2008 10:30 AM NON PROFIT JOB TITLES Inhaled Oxygen Concentration - - Weight 75.3 kg (166 lb) 08/30/2008 10:30 AM NON PROFIT JOB TITLES Height 170.2 cm (5' 7) 08/30/2008 10:30 AM NON PROFIT JOB TITLES Body Mass Index 26 08/30/2008 10:30 AM NON PROFIT JOB TITLES documented in this encounter Progress Notes Brad [...] Date ??? Multiple Sclerosis sees neurology at [facility] ??? Juvenile Osteochondrosis of Hip and [...] symptomatic and supportive care. Brad Hernandez MD [facility] PROFIT JOB TITLES documented in this encounter Nursing Notes 08/30/2008 [...] Back pain Re sults for this FRONT/LAT NON PROFIT JOB TITLES procedure are i n the results section. HCL UA MICRO IF Routine 08/30/2008 10:55 AM Back Pain Resul ts for this POSITIVE NON PROFIT JOB TITLES procedure are i n the results section. CL AFF CBC WITH Routine 08/30/2008 10:52 AM Back Pain Resul ts for this PLATELETS NON PROFIT JOB TITLES procedure are i n the results section. documented in this encounter Results CHEST X-RAY 2 VW (09/08/2008 9:17 AM NON PROFIT JOB TITLES) Anatomical Region Laterality Modality Other Specimen (Source) Anatomical Collection Method Collection Time Re ceived Time Location / / Volume Laterality 09/08/2008 9:17 AM NON PROFIT JOB TITLES Impressions 09/11/2008 7:40 AM NON PROFIT JOB TITLES CHEST TWO VIEW* Sep 08, 2008 9:17:00 AM HISTORY: Pain. FINDINGS: Negative. Brad Hernandez MD GENERAL IMAGING UA MICRO IF POSITIVE (08/30/2008 10:55 AM NON PROFIT JOB TITLES) Patholo gist Method Time Signature Color Urine Yellow [facility] Appearance Urine Clear [facility] Glucose Urine Negative NEG mg/dL [facility] Bilirubin Urine Negative NEG [facility] Ketones Urine Negative NEG mg/dL [facility] Specific [place] 1.020 1.003 - [place] Urine 1.035 [facility] Blood Urine Negative NEG [facility] pH Urine 5.5 5.0 - 7.0 [place] pH [facility] Protein Albumin Negative NEG mg/dL [place] Urine [facility] Urobilinogen 0.2 0.2 - 1.0 [place] Urine EU/dL [facility] Nitrite Urine Negative NEG [facility] Leukocyte Negative NEG [place] Esterase Urine [facility] Source Midstream [place] Urine [facility] Specimen Anatomical Collection Method Collection Time Receive d Time (Source) Location / / Volume Laterality 08/30/2008 10:55 08/30/2008 AM NON PROFIT JOB TITLES 10:57 AM NON PROFIT JOB TITLES Brad Hernandez MD LABORATORY Performing Organization Address City/State/ZIP Code Phon e Number [facility] [phone] [place] [address] [facility] CBC WITH PLATELETS (08/30/2008 10:52 AM NON PROFIT JOB TITLES) athologist Signature WBC 6.7 4.0 - 11.0 [place] 10e9/L [facility] RBC Count 4.75 4.4 - 5.9 [place] 10e12/L [facility] Hemoglobin 14.9 13.3 - [place] 17.7 g/dL [facility] Hematocrit 41.0 40.0 - [place] 53.0 % [facility] MCV 86 78 - 100 [facility] MCH 31.4 26.5 - [place] 33.0 pg [facility] MCHC 36.3 31.5 - [place] 36.5 g/dL [facility] RDW 12.3 10.0 - [place] 15.0 % [facility] Platelet Count 157 150 - 450 [place] 10e9/L [facility] Specimen Anatomical Collection Method Collection Time Receive d Time (Source) Location / / Volume Laterality 08/30/2008 10:52 08/30/2008 AM NON PROFIT JOB TITLES 10:54 AM NON PROFIT JOB TITLES Brad Hernandez MD LABORATORY Performing Organization Address City/State/ZIP Code Phon e Number [facility] [phone] [place] [address] [facility] documented in this encounter Visit Diagnoses Diagnosis Back pain - Primary Backache, unspecified URI (upper respiratory infection) Acute upper respiratory infections of un specified site documented in this encounter Care Teams Card Grader Relationship Specialty Start Date End Date Jonathan Velásquez MD PCP - General 11/10/05 01/21/11 documented as of this encounter
--- OUTSIDE RECORDS SUMMARY | 2022-08-27 14:15 | XMS_ITS | Encounter Summary ---
:1960 Author Organization [place] Address [address] [facility] [place] [address] Care Team Providers Name Role Phone Teresita Garcia MD Primary Care Provider Reason for Visit Reason Onset Date Comments Erroneous encounter-disregard 04/11/2013 Encounter Details Date Type Department Care Team Description 04/11/2013 Telephone [facility] Ara Saleh MD Erroneous Clinic [address] encounter-disregard [id number] [place] [phone] Social History Tobacco Use Types Packs/Day Years [...] do you attend sabianist or Not asked voodoo services? Do you [...] on filedocumented in this encounter Care Teams Exhibit Electrician Relationship Specialty Start Date End Date Teresita Garcia MD PCP - General Family Practice 01/22/11 [address] [place] [address] documented as of this encounter
--- OUTSIDE RECORDS SUMMARY | 2022-08-27 14:15 | XMS_ITS | Encounter Summary ---
:1960 Author Organization [place] Address [address] [place] [address]. [place] [address] Care Team Providers Name Role Phone Jonathan Velásquez MD Primary Care Provider Reason for Visit Reason Onset Date Comments Refill Request 08/07/2009 selenium Encounter Details Date Type Department Care Team Description 08/07/2009 Refill [facility] Jonathan Velásquez MD Refill Request Clinic [place] XXX RETIRED XXX (selenium) [address] [place] [address] [place], [place] [address] [phone] (Wo rk) Social History Tobacco Use Types [...] do you attend lutheran or Not asked sabianist services? Do you [...] to refill per so. Adina Jimenez RN CAL EQUIPMENT TECHNICIAN Telephone Encounter - Marnie Quesada - 08/07/2009 1:39 PM CST Last office visit: 08/30/2008 Future appointment: none Last refill: 12/11/2008 Marnie Quesada MA CAL EQUIPMENT TECHNICIAN documented in this encounter Plan of Treatment Not on filedocumented as of this encounter Visit Diagnoses Diagnosis Other specified disease of hair and hair follicles - Primary documented in this encounter Care Teams Foreman Or Supervisor And Operator Relationship Specialty Start Date End Date Jonathan Velásquez MD PCP - General 11/10/05 01/21/11 documented as of this encounter
--- OUTSIDE RECORDS SUMMARY | 2022-08-27 14:15 | XMS_ITS | Encounter Summary ---
:1960 Author Organization [place] Address [address] [place] [address] Care Team Providers Name Role Phone Jonathan Velásquez MD Primary Care Provider Teresiat Garcia MD Primary Care Provider Teresita Garcia MD Unavailable Teresita Garcia MD Unavailable Reason for Visit Reason Onset Date Comments Medication Request 09/17/2010 FNA. Nasonex Encounter Details Date Type Department Care Team Description 09/17/2010 Telephone [facility] Jonathan Velásquez, Medic ation Request Clinic Britta Chaudhry MD (FNA. Nasonex) [address] [facility] XXX RETIRED X XX Drive [address] [facility] [place] [address] NABIL ZHOU [phone] (Wo rk) Social History Tobacco Use Types [...] do you attend scientology or Not asked muslim services? Do you [...] request. Shelia Upton Team 2 RN /ACC TAL ENGINEER Telephone Encounter - Makenzie Lazaro - 09/17/2010 12:17 PM CST I called yesterday and a nurse was going to call me back. Patient states he called yesterday requesting a refill for Nasonex and forgot to turn on answering machine. Please call patient. Thank you. Makenzie Lazaro RN [facility] [phone] TAL ENGINEER documented in this encounter Plan of Treatment Not on filedocumented as of this encounter Visit Diagnoses Diagnosis Acute upper respiratory infections of ot her multiple sites - Primary documented in this encounter Care Teams General I Farmworker Relationship Specialty Start Date End Date Jonathan Velásquez MD PCP - General 11/10/05 01/21/11 Teresita Garcia MD PCP - General Family Practice 01/22/11 [address] [place], [place] [phone] Teresita Garcia MD PCP - Assigned PCP 11/16/16 11/30/18 [address] [place], [place] [phone] Teresita Garcia MD Assigned PCP 11/16/16 12/28/[id number] [place] [address] documented as of this encounter
--- OUTSIDE RECORDS SUMMARY | 2022-08-27 14:15 | XMS_ITS | Encounter Summary ---
:1960 Author Organization [place] Address [address] [place] [address]. [place] [address] Care Team Providers Name Role Phone Jonathan Velásquez MD Primary Care Provider Reason for Visit Reason Onset Date Comments Refill Request 06/26/2008 Nasonex 50 mcg Encounter Details Date Type Department Care Team Description 06/26/2008 Refill [facility] Jonathan Velásquez MD Refill Request (Nasonex Clinic [place] XXX RETIRED XXX 50 mcg) [address] [place] [address] [address] [facility] [address] [place] [address] [phone] (Wo rk) Social History Tobacco Use Types [...] do you attend cheondoism or Not asked yarsani services? Do you [...] sites documented in this encounter Care Teams Curb Setter Relationship Specialty Start Date End Date Jonathan Velásquez MD PCP - General 11/10/05 01/21/11 documented as of this encounter
--- OUTSIDE RECORDS SUMMARY | 2022-08-27 14:15 | XMS_ITS | Encounter Summary ---
:1960 Author Organization [place] Address [facility] [place] [address] Care Team Providers Name Role Phone Teresita Garcia MD Primary Care Provider Reason for Visit Reason Comments Pre-Op Exam Surgery on 01/23/11 Encounter Details Date Type Department Care Team Description 01/22/2011 Office Visit [facility] Pre op general physical [place] exam (Primary Dx) [address] [place] [address] Social History Tobacco Use [...] do you attend sabianist or Not asked taoist services? Do you [...] Elma Thorne - 01/22/2011 1:34 PM CDT [facility] [address] [place] [phone] PRE-OP EVALUATION: Today's date: 01/22/2011 Dejuan Rodriguez (: 1960) presents for pre-operative evaluation assessment as requested byDr. Frederic Mejía. He requires evaluation and anesthesia risk assessment prior to undergoing surgery/procedure for treatment of headache . Proposed procedure: Blood patch. Date of Surgery/ Procedure: 01/23/11 Time of Surgery/ Procedure: 12:30PM Hospital/Surgical Facility: [facility] Fax number for surgical facility: [phone] Primary Physician: Dr. Garcia Type of Anesthesia [...] Date ??? Multiple sclerosis sees neurology at [facility] ??? Juvenile osteochondrosis of hip [...] n documented in this encounter Care Teams Pcat Instructor Relationship Specialty Start Date End Date Teresita Garcia MD PCP - General Family Practice 01/22/11 [address] [place] [address] documented as of this encounter
--- OUTSIDE RECORDS SUMMARY | 2022-08-27 14:15 | XMS_ITS | Encounter Summary ---
:1960 Author Organization [place] Address Count includes the [facility] [place] [address] Care Team Providers Name Role Phone Jonathan Velásquez MD Primary Care Provider Reason for Referral Specialty Diagnoses / Procedures Referred By Contact Refer red To Contact [employer] [place] [address] [facility] [place] [phone] Referral ID Status Reason Start Date Expiration Date Visits Requ ested Visits Authorized Encounter Details Date Type Department Care Team Description 01/03/2011 Orders Only [facility] Jonathan Velásquez MD [place] XXX RETIRED XXX [address] [facility] Mohit johnson [address] [facility] N[place] Richard [phone] [place] [phone] (Wo rk) Social History Tobacco Use [...] do you attend lutheran or Not asked sikh services? Do you [...] on filedocumented in this encounter Care Teams Automotive Worker Foreman Relationship Specialty Start Date End Date Jonathan Velásquez MD PCP - General 11/10/05 01/21/11 documented as of this encounter
--- OUTSIDE RECORDS SUMMARY | 2022-08-27 14:15 | XMS_ITS | Encounter Summary ---
:1960 Author Organization [place] Address [address] [place] [address] Care Team Providers Name Role Phone Teresita Garcia MD Primary Care Provider Reason for Referral Referral not Required - Closed Specialty Diagnoses / Procedures Referred By Contact Refer red To Contact Diagnoses Hip pain Teresita Garcia MD [place] [id number] [place] [address] [facility], [place] [address] [address] [facility] [address] [place] [address] Phone: Fax: Referral ID Status Reason Start Date Expiration Date Visits Requ ested Visits Authorized [id number] Closed 06/21/2012 12/18/2012 1 1 Reason for Visit Reason Comments Musculoskeletal Problem right hip pain Health Maintenance referral generated for colon oscopy--phq and DAP completed today Encounter Details Date Type Department Care Team Description 06/21/2012 Office Visit [facility] Teresita Garcia MD Hip pain (Primary Dx); Clinic [place] [id number] [place] [address] Mild major depression (H) [address] [place] [address] [phone] Social History Tobacco Use Types Packs/Day Years [...] do you attend scientologist or Not asked orthodoxy services? Do you [...] ??? Multiple sclerosis sees neurology at [facility] ??? Juvenile osteochondrosis of hip and [...] Name Type Priority Associated Diagnoses Order [facility] GASTROENTEROLOGY ADULT Referral Routine Hip pain Order [...] mild documented in this encounter Care Teams Yoker Machine Operator Relationship Specialty Start Date End Date Teresita Garcia MD PCP - General Family Practice 01/22/11 [address] [place] [address] documented as of this encounter
--- OUTSIDE RECORDS SUMMARY | 2022-08-27 14:15 | XMS_ITS | Encounter Summary ---
:1960 Author Organization [place] Address [address] [facility] [place] [address] Care Team Providers Name Role Phone Jonathan Velásquez MD Primary Care Provider Reason for Visit Reason Comments Pre-Op Exam Depression Encounter Details Date Type Department Care Team Description 12/13/2010 Office Visit [facility] Nelida Corral Preop g eneral physical exam (Primary Dx); Clinic Brandon Avila MD Mild major depression (H); [place] [address] [facility] Vitamin D deficiencies; Road, [address] [place] [address] Fatigue; [place], [place] [phone] (Wo rk) Vaccine for tetanus toxoid [id number] [phone] Social History Tobacco Use Types Packs/Day Years [...] do you attend latter-day or Not asked restorationism services? Do you [...] Nelida Corral - 12/13/2010 7:43 AM CDT [address], [address] [place] [address] PRE-OP EVALUATION: Today's date: 12/13/2010 Dejuan Rodriguez (: 1960) presents for pre-operative evaluation assessment as requested byDr. Enriquez. He requires evaluation and anesthesia risk assessment prior to undergoing surgery/procedure for treatment of baclofen pump . Proposed procedure: pump placement right LQ abd. Date of Surgery/ Procedure: 12/16/2009 Time of Surgery/ Procedure: 10:30am Hospital/Surgical Facility: [facility] Fax number for surgical facility: Primary [...] Date ??? Multiple sclerosis sees neurology at [facility] ??? Juvenile osteochondrosis of hip and [...] (12/13/2010 8:13 AM CDT) Analysis Performed At [facility] Time Signature Sodium 143 133 - 144 [place] mmol/L [facility] Potassium 4.1 3.4 - 5.3 [place] mmol/L [facility] Chloride 104 94 - 109 [place] mmol/L [facility] Carbon Dioxide 27 20 - 32 [place] mmol/L [facility] Anion Gap 12 6 - 17 [place] mmol/L [facility] Glucose 95 60 - 99 [place] mg/dL [facility] Urea Nitrogen 21 5 - 24 [place] mg/dL [facility] Creatinine 1.26 (H) 0.66 - [facility] 1.25 mg/dL [facility] GFR Estimate 61 >60 [place] mL/min/1.7 [facility] m2 LAB GFR Estimate If 74 >60 [place] Black mL/min/1.7 [facility] m2 LAB Calcium 9.4 8.5 - 10.4 [place] mg/dL [facility] Bilirubin Total 1.0 0.2 - 1.3 [place] mg/dL [facility] Albumin 4.6 3.9 - 5.1 [place] g/dL [facility] Comment: Reference range changed on 05/30. Protein Total 7.0 6.8 - 8.8 g/dL [facility] Comment: As of 08, reference range reflects plasma specimen type. Alkaline Phosphatase 55 40 - 150 U/L [facility] ALT 24 0 - 70 U/L [facility] LAB AST 20 0 - 55 U/L [facility] LAB Specimen Anatomical Collection Method Collection Time Receive d Time (Source) Location / / Volume Laterality Blood specimen 12/13/2010 8:13 AM 011 8:18 (specimen) CDT AM CDT Nelida Corral MD LAB - BLOOD ORDERABLES Performing Organization Address City/State/ZIP Code Phon e Number [facility] [address] [place] [address] [facility] (ABNORMAL) Lipid panel reflex to direct LDL (12/13/2010 8:13 AM CDT) P athologist Signature Cholesterol 143 0 - 200 [facility] mg/dL CLINIC LAB Comment: LDL Cholesterol is the primary guide to therapy. The NCEP recommends further evaluation of: patients with cholesterol <200 mg/dL if additional risk factors are present, cholesterol >240 mg/dL, triglycerides >150 mg/dL, or HDL <40 mg/dL. Triglycerides 259 (H) 0 - 150 mg/dL [facility] HDL Cholesterol 41 40 - 110 mg/dL [facility] LDL Cholesterol Calculated 50 0 - 129 mg/dL [facility] Comment: LDL Cholesterol is the primary guide to therapy: LDL-cholesterol goal in high risk patients is <100 mg/dL and in very high risk patients is <70 mg/dL. VLDL-Cholesterol 52 (H) 0 - 30 mg/dL [facility] Cholesterol/HDL Ratio 3.5 0.0 - 5.0 [facility] Specimen Anatomical Collection Method Collection Time Receive d Time (Source) Location / / Volume Laterality Blood specimen 12/13/2010 8:13 AM 011 8:18 (specimen) CDT AM CDT Nelida Corral MD LAB - BLOOD ORDERABLES Performing Organization Address City/State/ZIP Code Phon e Number [facility] [address] [place] [address] [facility] Vitamin D deficiency screening (12/13/2010 8:13 AM CDT) Component Value Ref Test Analysis Performed At Patholo gist Range Method Time Signature 25 [place] Vit D2 <5 ug/L [facility] 25 [place] Vit D3 43 ug/L [facility] 25 [place] Vit D <48 30 - 75 [facility] total Season, race, dietary intake, and treatm ent affect the concentration of ug/L [facility] 90-iihdcza-Dhpzjdx D. Values may decrease during michelle er [...] e Number [facility] [address] [place] [address] [facility] TSH with free T4 reflex (12/13/2010 8:13 AM CDT) athologist Signature TSH 2.73 0.4 - 5.0 [facility] mU/L CLINIC LAB Specimen Anatomical Collection Method Collection Time Receive d Time (Source) Location / / Volume Laterality Blood specimen 12/13/2010 8:13 AM 011 8:18 (specimen) CDT AM CDT Nelida Corral MD LAB - BLOOD ORDERABLES Performing Organization Address City/[facility]/ZIP Code Phon e Number [facility] [address] [place] [address] [facility] CBC with platelets (12/13/2010 8:13 AM CDT) athologist Signature WBC 8.1 4.0 - 11.0 [place] 10e9/L [facility] RBC Count 4.90 4.4 - 5.9 [place] 10e12/L [facility] Hemoglobin 15.3 13.3 - [facility] 17.7 g/dL [facility] Hematocrit 42.9 40.0 - [facility] 53.0 % [facility] MCV 88 78 - 100 [facility] LAB MCH 31.2 26.5 - [facility] 33.0 pg [facility] MCHC 35.7 31.5 - [facility] 36.5 g/dL [facility] RDW 12.8 10.0 - [facility] 15.0 % [facility] Platelet Count 187 150 - 450 [place] 10e9/L [facility] Specimen Anatomical Collection Method Collection Time Receive d Time (Source) Location / / Volume Laterality Blood specimen 12/13/2010 8:13 AM 011 8:18 (specimen) CDT AM CDT Nelida Corral MD LAB - BLOOD ORDERABLES Performing Organization Address City/State/ZIP Code Phon e Number [facility] [place] [address] [facility] documented in this encounter Visit Diagnoses Diagnosis Preop general physical exam - Primary Other specified pre-operative examinatio n Mild major depression (H) Major depressive disorder, single episod e, mild Vitamin D deficiencies Unspecified vitamin D deficiency Fatigue Other malaise and fatigue Vaccine for tetanus toxoid Need for prophylactic vaccination with t etanus toxoid alone documented in this encounter Care Teams Hairspring Truing Inspector Relationship Specialty Start Date End Date Jonathan Velásquez MD PCP - General 11/10/05 01/21/11 documented as of this encounter
--- OUTSIDE RECORDS SUMMARY | 2022-08-27 14:15 | XMS_ITS | Encounter Summary ---
:1960 Author Organization [place] Address [facility] [place] [address] Care Team Providers Name Role Phone Jonathan Velásquez MD Primary Care Provider Reason for Visit Reason Comments Urgent Care Nausea x3 days, loss of appetite Breathing Problem lungs hurt, muscles in forea tesha and legs spastic, has MS Encounter Details Date Type Department Care Team Description 07/26/2008 Office Visit [facility] Wilfrido Henley, Rachana lized Weakness; Urgent Care [place] PA-C Spasticity [address] [place] [id number] Social History Tobacco Use Types [...] ER if symptoms worsen See orders in Neocis documented in this encounter Nursing Notes 07/26/2008 [...] athologist Signature Sodium 139 133 - 144 [place] mmol/L [facility] Potassium 3.8 3.4 - 5.3 [place] mmol/L [facility] Chloride 104 94 - 109 [place] mmol/L [facility] Carbon Dioxide 22 20 - 32 [place] mmol/L [facility] Anion Gap 12 6 - 17 [place] mmol/L [facility] Glucose 118 (H) 60 - 99 [facility] mg/dL [facility] Urea Nitrogen 15 5 - 24 [place] mg/dL [facility] Creatinine 1.12 0.66 - [facility] 1.25 mg/dL [facility] Comment: New IDMS-traceable calibration beginning 01/27/08 GFR Estimate 71 >60 mL/min/1.7m2 [place] [facility] GFR Estimate If Black 85 >60 mL/min/1.7m2 [facility] Calcium 9.3 8.5 - 10.4 mg/dL [place] [facility] Bilirubin Total 0.6 0.2 - 1.3 mg/dL [facility] Albumin 4.8 3.9 - 5.1 g/dL [facility] Comment: Reference range changed on 05/30. Protein Total 7.7 6.8 - 8.8 g/dL [facility] Comment: As of 08, reference range reflects plasma specimen type. Alkaline Phosphatase 55 40 - 150 U/L [facility] ALT 40 0 - 70 U/L [facility] [place] [facility] AST 31 0 - 55 U/L [facility] Specimen Anatomical Collection Method Collection Time Receive d Time (Source) Location / / Volume Laterality 07/26/2008 7:54 PM 8 7:59 CDT PM CDT Wilfrido Henley PA-C LABORATORY Performing Organization Address City/State/ZIP Code Phon e Number [facility] [address] [place] [address] [facility] CBC WITH PLATELETS (07/26/2008 7:54 PM CDT) P athologist Signature WBC 7.3 4.0 - 11.0 [place] 10e9/L [facility] RBC Count 5.00 4.4 - 5.9 [place] 10e12/L [facility] Hemoglobin 15.1 13.3 - [place] 17.7 g/dL [facility] Hematocrit 43.2 40.0 - [place] 53.0 % [facility] MCV 86 78 - 100 [facility] MCH 30.2 26.5 - [facility] 33.0 pg [facility] MCHC 35.0 31.5 - [place] 36.5 g/dL [facility] RDW 11.0 10.0 - [place] 15.0 % [facility] Platelet Count 185 150 - 450 [place] 10e9/L [facility] Specimen Anatomical Collection Method Collection Time Receive d Time (Source) Location / / Volume Laterality 07/26/2008 7:54 PM 8 7:59 CDT PM CDT Wilfrido Hen[place] PA-C LABORATORY Performing Organization Address City/[facility]/ZIP Code Phon e Number [facility] [address] [address] [facility] (ABNORMAL) UA MICRO IF POSITIVE (07/26/2008 7:53 PM CDT) [facility] Method Time Signature Color Urine Yellow [facility] Appearance Urine Clear [facility] Glucose Urine Negative NEG mg/dL [facility] Bilirubin Urine Negative NEG [facility] Ketones Urine Negative NEG mg/dL [facility] Specific [place] <=1.005 1.003 - [place] Urine 1.035 [facility] Blood Urine Negative NEG [facility] pH Urine 7.5 (H) 5.0 - 7.0 [place] pH [facility] Protein Albumin Negative NEG mg/dL [place] Urine [facility] Urobilinogen 0.2 0.2 - 1.0 [place] Urine EU/dL [facility] Nitrite Urine Negative NEG [facility] Leukocyte Negative NEG [place] Esterase Urine [facility] Source Midstream [place] Urine [facility] Specimen Anatomical Collection Method Collection Time Receive d Time (Source) Location / / Volume Laterality 07/26/2008 7:53 PM 8 7:58 CDT PM CDT Wilfrido Henley PA-C LABORATORY Performing Organization Address City/[facility]/ZIP Code Phon e Number [facility] [address] [place] [address] [facility] CHEST X-RAY 2 VW (07/26/2008) Anatomical Region Laterality Modality Other Impressions 07/26/2008 REPORT OF OUTSIDE FILMS FROM [facility] DEJUAN RODRIGUEZ ?: 62 CHEST TWO VIEWS: 07/26/08 FINDINGS: Negative. ??No active infiltra josr. Dejuan Simeon M.D./jenny D/T: ??07/27/08 Electronically filed by Kirstie Magallon ??07/27/2008 ??10:52 AM Wilfrido Henley PA-C GENERAL IMAGING documented in this encounter Visit Diagnoses Diagnosis Generalized weakness Other malaise and fatigue Spasticity Abnormal involuntary movements documented in this encounter Care Teams Edge Bander Operator Relationship Specialty Start Date End Date Jonathan Velásuqez MD PCP - General 11/10/05 01/21/11 documented as of this encounter
--- OUTSIDE RECORDS SUMMARY | 2022-08-27 14:15 | XMS_ITS | Encounter Summary ---
:1960 Author Organization [place] Address [address] [facility] [facility] [place] [address] Care Team Providers Name Role Phone Teresita Garcia MD Primary Care Provider Reason for Referral Referral not Required - Closed Specialty Diagnoses / Procedures Referred By Contact Refer red To Contact Diagnoses Teresita Serrano MD [facility] [address] [facility] [address] [facility] [address] [place], [place] [address] [place] [address] Phone: [phone] Fax: Referral ID Status Reason Start Date Expiration Date Visits Requ ested Visits Authorized [id number] Closed 05/14/2011 11/10/2011 1 1 Reason for Visit Reason Comments Pre-Op Exam Encounter Details Date Type Department Care Team Description [facility]/14[facility]2011 [facility] Preop general physical exam (Primary Dx) ; [place] [address] Other specified disease of hair and hair follicles; [address] [place], [place] Rhinitis, allergic, perennia l; [place] [address] [facility] [address] Social History Tobacco Use Types Packs/Day [...] do you attend anabaptist or Not asked tenriism services? Do you belong to any clubs or Not asked organizations such as anabaptist groups, unions, fraLYCEEM or athletic groups, or school groups? How [...] Wes Camp - 05/14/2011 11:27 AM CDT [address] [address] PRE-OP EVALUATION: Today's date: 05/14/2011 Dejuan Rodriguez (: 1960) presents for pre-operative evaluation assessment as requested byDr. Mejía. He requires evaluation and anesthesia risk assessment prior to undergoing surgery/procedure for treatment of baclofen pump . Date of Surgery/ Procedure: 05/15/11 Time of Surgery/ Procedure: 7:45 Hospital/Surgical Facility: [facility] Fax number for surgical facility: [phone] Primary Physician: Dr. Garcia Type of Anesthesia [...] Multiple sclerosis sees neurology at [facility] ??? Juvenile osteochondrosis of hip and [...] athologist Signature Sodium 143 133 - 144 [place] mmol/L [facility]IC LAB Potassium 4.2 3.4 - 5.3 [place] mmol/L [facility] Chloride 103 94 - 109 [place] mmol/L [facility] Carbon Dioxide 25 20 - 32 [place] mmol/L [facility] Anion Gap 15 6 - 17 [place] mmol/L [facility] Glucose 91 60 - 99 [place] mg/dL [facility] LAB Urea Nitrogen 19 5 - 24 [place] mg/dL [facility] LAB Creatinine 1.14 0.66 - [facility] [place] 1.25 mg/dL CLINIC LAB GFR Estimate 68 >60 [facility] [place] mL/min/1.7 [facility] LAB m2 GFR Estimate If 83 >60 [place] Black mL/min/1.7 [facility] LAB m2 Calcium 9.9 8.5 - 10.4 [place] mg/dL [facility] LAB Specimen Anatomical Collection Method Collection Time Receive d Time (Source) Location / / Volume Laterality Blood specimen 05/14/2011 4:31 PM 011 4:37 (specimen) CDT PM CDT Teresita Garcia MD LAB - BLOOD ORDERABLES Performing Organization Address City/State/ZIP Code Phon e Number [facility] [address] [place] [address] [facility] HEMOGLOBIN (05/14/2011 4:31 PM CDT) P athologist Signature Hemoglobin 16.0 13.3 - 17.7 [facility] g/dL [facility] Specimen Anatomical Collection Method Collection Time Receive d Time (Source) Location / / Volume Laterality Blood specimen 05/14/2011 4:31 PM 011 4:37 (specimen) CDT PM CDT Teresita Garcia MD LAB - BLOOD ORDERABLES Performing Organization Address City/[facility]/ZIP Code Phon e Number [facility] [address] [place] [address] [facility] documented in this encounter Visit Diagnoses Diagnosis Preop general physical exam - Primary Other specified pre-operative examinatio n Other specified disease of hair and hair follicles Rhinitis, allergic, perennial Allergic rhinitis, cause unspecified Moles Benign neoplasm of skin, site unspecifie d documented in this encounter Care Teams Crew Car Driver Relationship Specialty Start Date End Date Teresita Garcia MD PCP - General Family Practice 01/22/11 [address] [place] [address] documented as of this encounter
--- OUTSIDE RECORDS SUMMARY | 2022-08-27 14:15 | XMS_ITS | Encounter Summary ---
:1960 Author Organization [place] Address [address] [place] [address] Care Team Providers Name Role Phone Teresita Garcia MD Primary Care Provider Reason for Visit Reason Onset Date Comments Panel Management 04/11/2013 Encounter Details Date Type Department Care Team Description 04/11/2013 Telephone [facility] Ara Saleh MD Panel Management [address] [phone] Social History Tobacco Use Types Packs/Day Years [...] do you attend taoism or Not asked yazdanism services? Do you [...] 04/25/2013 1:23 PM CDT [facility] to the [facility] team. Mary Sanchez CMA Telephone Encounter - Blanche Ward - 04/18/2013 8:47 AM CDT LM for pt to call back to clinic. Telephone Encounter - Blanche Ward - 04/11/2013 2:16 PM CDT Panel Management Review Date of last visit with a [place] provider: on 06/21/12. Date of next visit with a [place] provider: None. Problem List Patient Active Problem List Diagnosis ??? MULTIPLE SCLEROSIS ??? CARDIOVASCULAR SCREENING; LDL GOAL LESS THAN 160 ??? Cannabis abuse ??? Mild major depression ??? Baclofen pump failure ??? Spasticity ??? Seborrheic dermatitis of scalp ??? Status post hip replacement ??? Yqbv-Oizld-Dueazqt disease ??? Atopic rhinitis Health Maintenance List Health Maintenance Topic Date Due ??? Colon Cancer Screen (System Assigned) 12/15/2011 ??? Phq-9 Q6 Months (No Inbasket) 12/19/2012 ??? Depression Action Plan Q1 Yr (No Inbasket) 06/21/2013 ??? Influenza Vaccine (System Assigned) 06/28/2013 ??? Lipid Screen Q5 Yr Male (System Assigned) 2015 ??? Tetanus Immunization ( [place] Assigned) 12/13/2020 For diabetic patients with hypertension and/or hyperlipidemia, only choose diabetes. Patient has the following on his problem list: Depression / Dysthymia review PHQ-9 SCORE ([facility]) 12/13/2010 06/21/2012 Total Score 9 5 Patient [...] to do PHQ9. Type of outreach: Sent Mapittrackit message. Questions for provider review: None Blanche [...] filedocumented in this encounter Care Teams Filler Shredder Relationship Specialty Start Date End Date Teresita Garcia MD PCP - General Family Practice 01/22/11 [address] [place] [address] documented as of this encounter
--- OUTSIDE RECORDS SUMMARY | 2022-08-27 14:16 | XMS_ITS | Encounter Summary ---
:1960 Author Organization [place] Address [facility] [place] [address] Care Team Providers Name Role Phone Unavailable Primary Care Provider Unavailable Encounter Details Date Type Department Care Team Description 08/18/2005 Therapy Visit [place] Cyndi Crews iamCERVICA LGIA (Primary Athletic Medicine - PT Dx) George Stapleton [facility] GEORGE STAPLETON PhysicalTherapy [address] [place] [address] [address] GEORGE STAP[place] [facility] [place] [address] [phone] Social History Tobacco Use Types Packs/Day Years [...] do you attend scientologist or Not asked taoism services? Do you [...] to the daily flowsheet for treatment today. WATER MACHINE OPERATOR documented in this encounter Plan of Treatment Not on filedocumented as of this encounter Procedures Procedure Name Priority Date/Time Associated Diagnosis Comme nts [facility] THERAPEUTIC Routine 08/18/2005 3:53 PM COLD WATER MACHINE OPERATOR iamCERVICALGIA EXERCISES [facility] HOT OR COLD PACKS Routine 08/18/2005 3:53 PM COLD WATER MACHINE OPERATOR iamCERVIC AL[place]IA THERAPY [facility] MECHANICAL TRACTION Routine 08/18/2005 3:53 PM COLD WATER MACHINE OPERATOR iamCERV ICALGIA THERAPY documented in this encounter Visit Diagnoses Diagnosis iamCERVICALGIA - Primary Cervicalgia documented in this encounter
--- OUTSIDE RECORDS SUMMARY | 2022-08-27 14:16 | XMS_ITS | Encounter Summary ---
:1960 Author Organization [place] Address [address] [place] [address]. [place] [address] Care Team Providers Name Role Phone Jonathan Velásquez MD Primary Care Provider Reason for Visit Reason Comments Hair/Scalp Problem itchy scalp, has had for yea rs Encounter Details Date Type Department Care Team Description 03/06/2008 Office Visit [facility] Jonathan Velásquez, Other Specified Clinic Britta Chaudhry MD Disease of Hair and [address] [place] [address] XXX RETIRED X XX Hair Follic[address] [place] [address] (Primary Dx) [place] [address] [address] NABIL ZHOU [phone] [address] Social History Tobacco Use Types Packs/Day [...] Primary documented in this encounter Care Teams It Consulting Director Relationship Specialty Start Date End Date Jonathan Velásquez MD PCP - General 11/10/05 01/21/11 documented as of this encounter
--- OUTSIDE RECORDS SUMMARY | 2022-08-27 14:16 | XMS_ITS | Encounter Summary ---
:1960 Author Organization [place] Address [facility] [place] [address] Care Team Providers Name Role Phone Jonathan Velásquez MD Primary Care Provider Reason for Visit Reason Comments Cough dry cough and congestion, st uffed up Encounter Details Date Type Department Care Team Description 08/29/2006 Office Visit [facility] Jonathan Velásquez, ACUTE URI MULT [facility] Clinic Britta Chaudhry MD NEC (Primary Dx) [address] [facility] XXX RETIRED X XX Drive [address] [facility] [place] [address] NABIL ZHOU [phone] [address] Social History Tobacco Use Types Packs/Day [...] do you attend yarsani or Not asked quaker services? Do you [...] Comments Blood Pressure 116/74 08/29/2006 10:00 AM [facility] [place] Pulse 99 08/29/2006 10:00 AM [facility] [place] Temperature 36.3 ??C (97.4 ??F) 08/29/2006 10:00 AM [facility] [place] Respiratory Rate - - Oxygen Saturation - - Inhaled Oxygen Concentration - - Weight 78.9 kg (174 lb) 08/29/2006 10:00 AM [facility] [place] Height 162.6 cm (5' 4) 08/29/2006 10:00 AM [facility] [place] Body Mass Index 29.87 08/29/2006 10:00 AM [facility] [place] documented in this encounter Progress Notes Jonathan [...] MCG/ACT NA SUSP Continue Mucinex. Follow-up p.r.n. ER [facility] documented in this encounter Nursing Notes 08/29/2006 [...] Primary documented in this encounter Care Teams Laminated Plastics Assembler And Gluer Relationship Specialty Start Date End Date Jonathan Velásquez MD PCP - General 11/10/05 01/21/11 documented as of this encounter
--- OUTSIDE RECORDS SUMMARY | 2022-08-27 14:16 | XMS_ITS | Encounter Summary ---
:1960 Author Organization [place] Address [address] [facility] [place] [address] Care Team Providers Name Role Phone Jonathan Velásquez MD Primary Care Provider Encounter Details Date Type Department Care Team Description 06/01/2007 Historic Results INTERFACED REPORT Hiren Bahena MD [facility] [address] [place], [place] [id number] (Wo rk) Social History Tobacco Use Types [...] do you attend zoroastrian or Not asked episcopal services? Do you [...] on filedocumented in this encounter Care Teams Underwear Trimmer Relationship Specialty Start Date End Date Jonathan Velásquez MD PCP - General 11/10/05 01/21/11 documented as of this encounter
--- OUTSIDE RECORDS SUMMARY | 2022-08-27 14:16 | XMS_ITS | Encounter Summary ---
:1960 Author Organization [place] Address [address] [facility] [place] [address] Care Team Providers Name Role Phone Jonathan Velásquez MD Primary Care Provider Encounter Details Date Type Department Care Team Description 05/25/2007 Results Only [facility], Hiren gómez MD [facility] Results [facility] [address] [facility] [address] [place], [place] [address] (Wo rk) Social History Tobacco Use Types [...] do you attend voodoo or Not asked denominational services? Do you [...] Procedure Name Priority Date/Time Associated Diagnosis Comme [facility] Routine 05/25/2007 11:46 AM Results for this [...] on filedocumented in this encounter Care Teams Field Auto Appraiser Relationship Specialty Start Date End Date Jonathan Velásquez MD PCP - General 11/10/05 01/21/11 documented as of this encounter
--- OUTSIDE RECORDS SUMMARY | 2022-08-27 14:16 | XMS_ITS | Encounter Summary ---
:1960 Author Organization [place] Address [address] [facility] [place] [address] Care Team Providers Name Role Phone Jonathan Velásquez MD Primary Care Provider Teresita Garcia MD Primary Care Provider Teresita Garcia MD Unavailable Teresita Garcia MD Unavailable Dolores Caputo CANINE SERVICE INSTRUCTOR TRAINER Unavailable Letha Vasquez MA Unavailable Audrey Hickman MD Unavailable [phone] Encounter Details Date Type Department Care Team Description 02/28/2007 [facility] Jonathan Velásquez Abbot t [facility] Britta Chaudhry MD [facility] XXX RETIRED X XX Neurology Admiss. [address] [place] [address] [place] [address] NABIL ZHOU [phone] (Wo rk) Social History Tobacco Use Types [...] do you attend catholic or Not asked congregation services? Do you belong to any clubs or Not asked organizations such as catholic groups, unions, Gendel or athletic groups, or school groups? How [...] Primary documented in this encounter Care Teams Oracle Distribution Consultant Relationship Specialty Start Date End Date Jonathan Velásquez MD PCP - General 11/10/05 01/21/11 Teresita Garcia MD PCP - General Family Practice 01/22/11 [address] [place] [address] Teresita Garcia MD PCP - Assigned PCP 11/16/16 11/30/18 [address] [place] [address] Teresita Garcia MD Assigned PCP 11/16/16 12/28/21 [address] [place] [address] Dolores Caputo, CANINE SERVICE INSTRUCTOR TRAINER Lead Mill Washer Primary Care - CC 06/27/20 09/03/20 Letha Vasquez, Community Health Worker 07/05/20 09/03/20 MA Audrey Hickman Assigned PCP 12/29/21 MD Bernie [address] [place] [address] documented as of this encounter
--- OUTSIDE RECORDS SUMMARY | 2022-08-27 14:16 | XMS_ITS | Encounter Summary ---
:1960 Author Organization [place] Address [facility] [place] [address] Care Team Providers Name Role Phone Jonathan Velásquez MD Primary Care Provider Reason for Visit Reason Comments Patient Request STD testing Encounter Details Date Type Department Care Team Description 04/27/2006 Office Visit [facility] Jonathan Velásquez, [facility] Clinic Britta Chaudhry MD DIS (Primary Dx) [address] [facility] XXX RETIRED X XX Drive [address] [facility] [place] [address] NABIL ZHOU [phone] [address] Social History Tobacco Use Types Packs/Day [...] do you attend holiness or Not asked rastafarian services? Do you [...] Body Mass Index 26.08 11/11/2005 12:30 PM WELDING TESTER documented in this encounter Progress Notes Jonathan [...] Primary documented in this encounter Care Teams Sleever Relationship Specialty Start Date End Date Jonathan Velásquez MD PCP - General 11/10/05 01/21/11 documented as of this encounter
--- OUTSIDE RECORDS SUMMARY | 2022-08-27 14:16 | XMS_ITS | Encounter Summary ---
:1960 Author Organization [place] Address [facility] [place] [address] Care Team Providers Name Role Phone Unavailable Primary Care Provider Unavailable Reason for Visit Reason Comments Cough x 2 weeks Encounter Details Date Type Department Care Team Description 09/16/2005 Office Visit [facility] Jonathan Velásquez, PNEUM ONIA, ORGANISM NOS (Primary Dx); Clinic Britta Chaudhry MD DEPRESSIVE DISORDER NEC [address] [facility] XXX RETIRED X XX Drive 0 [facility] [place] [address] NABIL ZHOU [phone] [address] Social History Tobacco Use Types Packs/Day [...] do you attend scientologist or Not asked buddhism services? Do you [...] Comments Blood Pressure 117/71 09/16/2005 3:30 PM RESIDENT SERVICE COORDINATOR Pulse 103 09/16/2005 3:30 PM RESIDENT SERVICE COORDINATOR Temperature 36.7 ??C (98.1 ??F) 09/16/2005 3:30 PM RESIDENT SERVICE COORDINATOR Respiratory Rate - - Oxygen Saturation - - Inhaled Oxygen Concentration - - Weight 73.9 kg (163 lb) 09/16/2005 3:30 PM RESIDENT SERVICE COORDINATOR Height 167.6 cm (5' 6) 09/16/2005 3:30 PM RESIDENT SERVICE COORDINATOR Body Mass Index 26.31 09/16/2005 3:30 PM RESIDENT SERVICE COORDINATOR documented in this encounter Progress Notes Jonathan [...] therapist suggested that we start him on [place] Pro. I've explained to him that drugs [...] discussing his depressive sx and medication options. DENT SERVICE COORDINATOR documented in this encounter Nursing Notes 09/16/2005 3:30 PM CST >> MARGARITA RODAS 09/16/2005 3:26 pm Patient presents with: Cough - x 2 weeks BP 117/71 Pulse 103 Temp (Src) 98.1 (Oral) Ht 5' 6 (1.68m) Wt 163 lbs (73.9kg) BP completed using cuff size: large. P.[place] LOAN OFFICER ASSISTANT documented in this encounter Plan of [...] PM . REPORT OF OUTSIDE FILMS FROM [facility] DEJUAN RODRIGUEZ : ??62 PA AND LEFT LATERAL CHEST: ??09/16/05 Normal in two views. Lyndon Leyva M.D./[facility] D & T: ??09/19/05 Electronically filed by Kirstie Magallon ??09/23/2005 ??9:48 AM Jonathan Velásquez MD GENERAL IMAGING documented in this encounter Visit Diagnoses Diagnosis Pneumonia, organism unspecified(486) - P rimary Pneumonia, organism unspecified Depressive disorder, not elsewhere class ified documented in this encounter
--- OUTSIDE RECORDS SUMMARY | 2022-08-27 14:16 | XMS_ITS | Encounter Summary ---
:1960 Author Organization [place] Address Critical access hospital0 [facility] [place] [address] Care Team Providers Name Role Phone Unavailable Primary Care Provider Unavailable Encounter Details Date Type Department Care Team Description 08/22/2005 Therapy Visit Driver Cyndi Crews iamCERVICA LGIA (Primary Athletic Medicine - PT Dx) George Stapleton [facility] GEORGE STAPLETON PhysicalTherapy [address] [place] [address] [address] GEORGE STAPLETON [place] [address] [phone] Social History Tobacco Use Types Packs/Day Years [...] do you attend sikh or Not asked tenriism services? Do you [...] the daily flowsheet for treatment today. RVISOR ASSEMBLY ROOM documented in this encounter Plan of Treatment Not on filedocumented as of this encounter Procedures Procedure Name Priority Date/Time Associated Diagnosis Comme nts C THERAPEUTIC Routine 08/22/2005 12:29 PM iamCERVICALGIA EXERCISES SUPERVISOR ASSEMBLY ROOM [facility] MECHANICAL TRACTION Routine 08/22/2005 12:29 PM iamCERVICA LGIA THERAPY SUPERVISOR ASSEMBLY ROOM [facility] HOT OR COLD PACKS Routine 08/22/2005 12:29 PM iamCERVICALG IA THERAPY SUPERVISOR ASSEMBLY ROOM documented in this encounter Visit Diagnoses Diagnosis iamCERVICALGIA - Primary Cervicalgia documented in this encounter
--- OUTSIDE RECORDS SUMMARY | 2022-08-27 14:16 | XMS_ITS | Encounter Summary ---
:1960 Author Organization [place] Address [facility] [place] [address] Care Team Providers Name Role Phone Unavailable Primary Care Provider Unavailable Encounter Details Date Type Department Care Team Description 08/16/2005 Therapy Visit [place] Cyndi Crews iamCERVICA LGIA (Primary Athletic Medicine - PT Dx) George Stapleton [facility] GEORGE STAPLETON PhysicalTherapy [address] [place] [address] [address] GEORGE STAPLETON [place] [address] [phone] Social History Tobacco Use Types Packs/Day Years [...] do you attend scientologist or Not asked church services? Do you [...] to the daily flowsheet for treatment today. T METAL ROOFER documented in this encounter Plan of Treatment Not on filedocumented as of this encounter Procedures Procedure Name Priority Date/Time Associated Diagnosis Comme nts [facility] THERAPEUTIC Routine 08/16/2005 9:14 AM SHEET METAL ROOFER iamCERVICALGIA EXERCISES [facility] MECHANICAL TRACTION Routine 08/16/2005 9:14 AM SHEET METAL ROOFER iamCERV ICALGIA THERAPY [facility] HOT OR COLD PACKS Routine 08/16/2005 9:14 AM SHEET METAL ROOFER iamCERVIC [facility] documented in this encounter Visit Diagnoses Diagnosis iamCERVICALGIA - Primary Cervicalgia documented in this encounter
--- OUTSIDE RECORDS SUMMARY | 2022-08-27 14:16 | XMS_ITS | Encounter Summary ---
:1960 Author Organization [place] Address [address] [facility] [place] [address] Care Team Providers Name Role Phone Jonathan Velásquez MD Primary Care Provider Teresita Garcia MD Primary Care Provider Teresita Garcia MD Unavailable Teresita Garcia MD Unavailable Dolores Caputo POISER Unavailable Letha Vasquez MA Unavailable Audrey Hickman MD Unavailable [phone] Encounter Details Date Type Department Care Team Description 02/28/2007 [facility] Jonathan Velásquez [facility] t [facility] Britta Chaudhry MD [address] XXX RETIRED X XX Drive [address] [place] [address] [place] [address] NABIL ZHOU [phone] (Wo rk) Social History Tobacco Use Types [...] do you attend amish or Not asked worship services? Do you [...] Primary documented in this encounter Care Teams Electrical Timing Device Calibrator Relationship Specialty Start Date End Date Jonathan Velásquez MD PCP - General 11/10/05 01/21/11 Teresita Garcia MD PCP - General Family Practice 01/22/11 [address] [place] [address] Teresita Garcia MD PCP - Assigned PCP 11/16/16 11/30/18 [address] [place] [address] Teresita Garcia MD Assigned PCP 11/16/16 12/28/21 [address] [place] [address] Dolores Caputo, POISER Lead Recruiting Specialist Primary Care - CC 06/27/20 09/03/20 Letha Vasquez, Community Health Worker 07/05/20 09/03/20 MA Audrey Hickman Assigned PCP 12/29/21 MD Bernie [address] [place] [address] documented as of this encounter
--- OUTSIDE RECORDS SUMMARY | 2022-08-27 14:16 | XMS_ITS | Encounter Summary ---
:1960 Author Organization [place] Address [facility] [place] [address] Care Team Providers Name Role Phone Unavailable Primary Care Provider Unavailable Reason for Visit Reason Comments Consult Jax natalie Has MS Encounter Details Date Type Department Care Team Description 09/01/2005 Office Visit [facility] Jonathan Velásquez, MULTI PLE SCLEROSIS (H); Clinic Britta Chaudhry MD [facility] [address] [facility] XXX RETIRED X XX Drive [address] Britta Chaudhry [facility] [address] NABIL RIOS [phone] Social History Tobacco Use Types Packs/Day [...] do you attend yarsanism or Not asked restorationism services? Do you [...] Comments Blood Pressure 108/70 09/01/2005 12:15 PM DERRICK MAN Pulse 80 09/01/2005 12:15 PM DERRICK MAN Temperature 36.2 ??C (97.2 ??F) 09/01/2005 12:15 PM DERRICK MAN Respiratory Rate - - Oxygen Saturation - - Inhaled Oxygen Concentration - - Weight 72.6 kg (160 lb) 09/01/2005 12:15 PM DERRICK MAN Height 167.6 cm (5' 6) 09/01/2005 12:15 PM DERRICK MAN Body Mass Index 25.82 09/01/2005 12:15 PM DERRICK MAN documented in this encounter Progress Notes Jonathan [...] in the meantime, he will call me. ICK MAN documented in this encounter Nursing Notes 09/01/2005 12:15 PM CST >> MARGARITA RODSA 09/01/2005 12:21 pm Patient presents with: Consult [...]
--- OUTSIDE RECORDS SUMMARY | 2022-08-27 14:16 | XMS_ITS | Encounter Summary ---
:1960 Author Organization [place] Address [address] [facility] [place] [address] Care Team Providers Name Role Phone Jonathan Velásquez MD Primary Care Provider Teresita Garcia MD Primary Care Provider Teresita Garcia MD Unavailable Teresita Garcia MD Unavailable Dolores Caputo HOOK TENDER Unavailable Letha Vasquez MA Unavailable Audrey Hickman MD Unavailable [phone] Encounter Details Date Type Department Care Team Description 02/27/2007 [facility] Jonahtan Velásquez Abbot t [facility] Britta Chaudhry MD [address] XXX RETIRED X XX Drive [address] [place] [address] [place] [address] NABIL ZHOU [phone] (Wo rk) Social History Tobacco Use Types [...] Primary documented in this encounter Care Teams Fisher Pound Net Or Trap Relationship Specialty Start Date End Date Jonathan Velásquez MD PCP - General 11/10/05 01/21/11 Teresita Garcia MD PCP - General Family Practice 01/22/11 [address] [place] [address] Teresita Garcia MD PCP - Assigned PCP 11/16/16 11/30/18 [address] [place] [address] Teresita Garcia MD Assigned PCP 11/16/16 12/28/21 [address] [place] [address] Dolores Caputo, HOOK TENDER Lead Traveling Missionary Primary Care - CC 06/27/20 09/03/20 Letha Vasquez, Community Health Worker 07/05/20 09/03/20 MA Audrey Hickman Assigned PCP 12/29/21 MD Bernie [address] [place] [address] documented as of this encounter
--- OUTSIDE RECORDS SUMMARY | 2022-08-27 14:16 | XMS_ITS | Encounter Summary ---
:1960 Author Organization [place] Address [facility] [place] [address] Care Team Providers Name Role Phone Jonathan Velásquez MD Primary Care Provider Reason for Visit Reason Comments Sinus Problem past week Encounter Details Date Type Department Care Team Description 08/13/2006 Office Visit [facility] Patience Sampson APRN ACUTE MAXILLARY Clinic [facility] SINUSITIS (Primary Dx) [address] [place] [address] Social History Tobacco Use Types [...] do you attend evangelical or Not asked episcopalian services? Do you [...] Comments Blood Pressure 102/63 08/13/2006 11:30 AM FISH AGENT Pulse 98 08/13/2006 11:30 AM FISH AGENT Temperature 36.6 ??C (97.9 ??F) 08/13/2006 11:30 AM FISH AGENT Respiratory Rate - - Oxygen Saturation - - Inhaled Oxygen Concentration - - Weight 78.9 kg (174 lb) 08/13/2006 11:30 AM FISH AGENT Height 166.4 cm (5' 5.5) 08/13/2006 11:30 AM FISH AGENT Body Mass Index 28.51 08/13/2006 11:30 AM FISH AGENT documented in this encounter Progress Notes Patience [...] Follow up if not improving as expected AGENT documented in this encounter Nursing Notes 08/13/2006 [...] Primary documented in this encounter Care Teams Acoustic Warfare Analyst Relationship Specialty Start Date End Date Jonathan Velásquez MD PCP - General 11/10/05 01/21/11 documented as of this encounter
--- OUTSIDE RECORDS SUMMARY | 2022-08-27 14:16 | XMS_ITS | Encounter Summary ---
:1960 Author Organization [place] Address [facility] [place] [address] Care Team Providers Name Role Phone Unavailable Primary Care Provider Unavailable Encounter Details Date Type Department Care Team Description 08/14/2005 Therapy Visit [place] Cyndi Crews iamCERVICA LGIA (Primary Athletic Medicine - PT Dx) George Stapleton [facility] GEORGE STAPLETON PhysicalTherapy [address] [place] [address] [address] GEORGE STAPLETON [facility] [place] [address] [phone] Social History Tobacco Use Types Packs/Day Years [...] do you attend zoroastrian or Not asked restoration services? Do you [...] to the daily flowsheet for treatment today. LEMENT PROCESSOR documented in this encounter Plan of Treatment Not on filedocumented as of this encounter Procedures Procedure Name Priority Date/Time Associated Diagnosis Comme nts [facility] THERAPEUTIC Routine 08/14/2005 6:21 PM SETTLEMENT PROCESSOR iamCERVICALGIA EXERCISES [facility] MECHANICAL TRACTION Routine 08/14/2005 6:21 PM SETTLEMENT PROCESSOR iamCERV ICALGIA THERAPY [facility] HOT OR COLD PACKS Routine 08/14/2005 6:21 PM SETTLEMENT PROCESSOR iamCERVIC [place] THERAPY documented in this encounter Visit Diagnoses Diagnosis iamCERVICALGIA - Primary Cervicalgia documented in this encounter
--- OUTSIDE RECORDS SUMMARY | 2022-08-27 14:16 | XMS_ITS | Encounter Summary ---
:1960 Author Organization [place] Address On license of [facility] [place] [address] Care Team Providers Name Role Phone Jonathan Velásquez MD Primary Care Provider Reason for Visit Reason Onset Date Comments Erroneous encounter-disregard 09/04/2006 Encounter Details Date Type Department Care Team Description 09/04/2006 Telephone [facility] Jonathan Velásquez, [facility] Britta Chaudhry MD encounter-disregard [address] [facility] XXX RETIRED X XX Drive [address] [facility] [place] [address] NABIL ZHOU [phone] (Wo rk) Social History Tobacco Use [...] do you attend buddhism or Not asked lutheran services? Do you [...] on filedocumented in this encounter Care Teams Brass Plater Relationship Specialty Start Date End Date Jonathan Velásquez MD PCP - General 11/10/05 01/21/11 documented as of this encounter
--- OUTSIDE RECORDS SUMMARY | 2022-08-27 14:16 | XMS_ITS | Encounter Summary ---
:1960 Author Organization [place] Address [address] [facility] [place] [address] Care Team Providers Name Role Phone Jonathan Velásquez MD Primary Care Provider Encounter Details Date Type Department Care Team Description 04/28/2006 Orders Only [facility] SCR EENING FOR VENERAL DIS [facility] [address] [place] [address] Social History Tobacco Use Types [...] do you attend voodoo or Not asked judaism services? Do you [...] logist Time Signature HIV 1&2 Negative NEG [facility] Antibody [facility] LABS Specimen Anatomical Collection Method Collection Time Receive d Time (Source) Location / / Volume Laterality 04/28/2006 2:22 PM 6 2:23 CDT PM CDT Jonathan Velásquez MD LABORATORY Performing Organization Address City/State/ZIP Code Phon e Number [facility] [address] [place], [place] [id number] [place] [address] LABS documented in this encounter Visit Diagnoses Diagnosis Screening examination for venereal disea se documented in this encounter Care Teams [place] Truck Driver Relationship Specialty Start Date End Date Jonathan Velásquez MD PCP - General 11/10/05 01/21/11 documented as of this encounter
--- OUTSIDE RECORDS SUMMARY | 2022-08-27 14:16 | XMS_ITS | Encounter Summary ---
:1960 Author Organization [place] Address [address] [facility] [place] [address] Care Team Providers Name Role Phone Jonathan Velásquez MD Primary Care Provider Encounter Details Date Type Department Care Team Description 12/06/2007 Historic Results INTERFACED REPORT Chris Mcmahan MD [facility] [address] [place] [address] (Wo rk) Social History Tobacco [...] do you attend pentecostalism or Not asked rastafarian services? Do you [...] differential and platelet (12/06/2007 3:50 PM CDT) [facility] gist Method Time Signature MCV 89 78 [...] LAB - BLOOD ORDERABLES Performing Organization Address City/State/[facility] Code Phon e Number [facility] Platelet count (12/06/2007 3:50 PM CDT) P athologist Signature Platelet Count 197 150 - 450 [facility] 10e9/L Specimen Anatomical Collection Method Collection Time Receive d Time (Source) Location / / Volume Laterality 12/06/2007 3:50 PM 8 4:07 CDT PM CDT Chris Mcmahan MD LAB - BLOOD ORDERABLES Performing Organization Address City/State/[facility] Code Phon e Number MISYS documented in this encounter Visit Diagnoses Not on filedocumented in this encounter Care Teams Corporate Travel Coordinator Relationship Specialty Start Date End Date Jonathan Velásquez MD PCP - General 11/10/05 01/21/11 documented as of this encounter
--- OUTSIDE RECORDS SUMMARY | 2022-08-27 14:16 | XMS_ITS | Encounter Summary ---
:1960 Author Organization [place] Address [address] [facility] [place] [address] Care Team Providers Name Role Phone Jonathan Velásquez MD Primary Care Provider Reason for Visit Reason Comments Sinus Problem Encounter Details Date Type Department Care Team Description 08/07/[address] [facility] Sudhir Vazquez, NOSE AN OMALY KATHARINE Vee MD (Primary Dx) [address] [place] [address] [place] [phone] [place] [phone] Social History Tobacco Use Types Packs/Day [...] do you attend christianity or Not asked taoism services? Do you [...] Comments Blood Pressure 108/60 08/07/2006 1:30 PM PAIL BAILER Pulse - - Temperature 36.3 ??C (97.3 ??F) 08/07/2006 1:30 PM PAIL BAILER Respiratory Rate - - Oxygen Saturation - - Inhaled Oxygen Concentration - - Weight 77.9 kg (171 lb 12.8 oz) 08/07/2006 1:30 PM PAIL BAILER Height 167.6 cm (5' 6) 08/07/2006 1:30 PM PAIL BAILER Body Mass Index 27.73 08/07/2006 1:30 PM PAIL BAILER documented in this encounter Progress Notes Sudhir [...] pt. The potentialside effects with Afrin use superintendent marine oil terminal. Recommended pt. To use it only for extreme discomfort at bedtime. And limited its use to less than 3 days. Follow up with PMD of symptoms worse. BAILER documented in this encounter Nursing Notes 08/07/2006 [...] ry documented in this encounter Care Teams Recruitment Coordinator Relationship Specialty Start Date End Date Jonathan Velásquez MD PCP - General 11/10/05 01/21/11 documented as of this encounter
--- OUTSIDE RECORDS SUMMARY | 2022-08-27 14:16 | XMS_ITS | Encounter Summary ---
:1960 Author Organization [place] Address [facility] [place] [address] Care Team Providers Name Role Phone Unavailable Primary Care Provider Unavailable Encounter Details Date Type Department Care Team Description 08/28/2005 Therapy Visit [place] Cyndi Crews iamCERVICA LGIA (Primary Athletic Medicine - PT Dx) George Stapleton [facility] GEORGE STAPLETON PhysicalTherapy [address] [place] [address] [address] GEORGE STAPLETON [facility] [place] [address] [phone] Social History Tobacco Use Types Packs/Day Years [...] do you attend orthodoxy or Not asked shinto services? Do you [...] to the daily flowsheet for treatment today. ER CORE TESTER documented in this encounter Plan of Treatment Not on filedocumented as of this encounter Procedures Procedure Name Priority Date/Time Associated Diagnosis Comme nts [facility] THERAPEUTIC Routine 08/28/2005 1:51 PM POWDER CORE TESTER iamCERVICALGIA EXERCISES [facility] MECHANICAL TRACTION Routine 08/28/2005 1:51 PM POWDER CORE TESTER iamCERV ICALGIA THERAPY [facility] HOT OR COLD PACKS Routine 08/28/2005 1:51 PM POWDER CORE TESTER iamCERVIC [place] [facility]ERAP[facility] documented in this encounter Visit Diagnoses Diagnosis iamCERVICALGIA - Primary Cervicalgia documented in this encounter
--- OUTSIDE RECORDS SUMMARY | 2022-08-27 14:16 | XMS_ITS | Encounter Summary ---
:1960 Author Organization [place] Address [address] [place] [address] Care Team Providers Name Role Phone Unavailable Primary Care Provider Unavailable Encounter Details Date Type Department Care Team Description 09/04/2005 Therapy Visit [place] Cyndi Crews iamCERVICA LGIA (Primary Athletic Medicine - PT Dx) George Stapleton [facility] GEORGE STAPLETON PhysicalTherapy [address] [place] [address] [address] GEORGE STAPLETON [facility] [address] [phone] Social History Tobacco Use Types Packs/Day Years [...] do you attend restorationism or Not asked mosque services? Do you [...] today. Please refer to the discharge evaluation. T SPINNER documented in this encounter Plan of Treatment Not on filedocumented as of this encounter Procedures Procedure Name Priority Date/Time Associated Diagnosis Comme nts [facility] THERAPEUTIC Routine 09/04/2005 1:13 PM RIVET SPINNER iamCERVICALGIA EXERCISES [facility] MECHANICAL TRACTION Routine 09/04/2005 1:13 PM RIVET SPINNER iamCERV ICALGIA THERAPY [facility] HOT OR COLD PACKS Routine 09/04/2005 1:13 PM RIVET SPINNER iamCERVIC [place] [facility] documented in this encounter Visit Diagnoses Diagnosis iamCERVICALGIA - Primary Cervicalgia documented in this encounter
--- OUTSIDE RECORDS SUMMARY | 2022-08-27 14:16 | XMS_ITS | Encounter Summary ---
:1960 Author Organization [place] Address [facility] [place] [address] Care Team Providers Name Role Phone Unavailable Primary Care Provider Unavailable Encounter Details Date Type Department Care Team Description 08/11/2005 Therapy Visit [place] Cyndi Crews iamCERVICA LGIA (Primary Athletic Medicine - PT Dx) George Stapleton [facility] GEORGE STAPLETON PhysicalTherapy [address] [place] [address] [address] GE[facility]GE STAPLETON [facility] [place] [address] [phone] Social History Tobacco Use Types Packs/Day Years [...] do you attend latter-day or Not asked mosque services? Do you [...] to the daily flowsheet for treatment today. VIOR THERAPIST documented in this encounter Plan of Treatment Not on filedocumented as of this encounter Procedures Procedure Name Priority Date/Time Associated Diagnosis Comme nts [facility] THERAPEUTIC Routine 08/11/2005 4:55 PM BEHAVIOR THERAPIST iamCERVICALGIA ACTIVITIES [facility] MECHANICAL TRACTION Routine 08/11/2005 4:55 PM BEHAVIOR THERAPIST iamCERV ICAL[facility]IA THERAPY documented in this encounter Visit Diagnoses Diagnosis iamCERVICALGIA - Primary Cervicalgia documented in this encounter
--- OUTSIDE RECORDS SUMMARY | 2022-08-27 14:16 | XMS_ITS | Encounter Summary ---
:1960 Author Organization [place] Address [address] [facility] [place] [address] Care Team Providers Name Role Phone Jonathan Velásquez MD Primary Care Provider Encounter Details Date Type Department Care Team Description 04/29/2006 Orders Only [facility] SCR EENING FOR VENERAL DIS [facility] [address] [place] [address] Social History Tobacco Use Types [...] do you attend zoroastrian or Not asked hinduism services? Do you [...] Component Value Ref Test Analysis Performed At [facility] Method Time Signature Specimen Urine [facility] LABS N Gonorrhea Negative for N. gonorrhoeae rRNA by metal model maker mediated amplification. [facility] PCR A negative result by transc ription mediated amplification does not preclude the CARSON presence of N. gonorrhoeae infection because re sults are dependent on proper CAMPUS LABS and adequate collection, absence of inhibitors, and suffici ent rRNA to be detected. Specimen Anatomical Collection Method Collection Time Receive d Time (Source) Location / / Volume Laterality 04/29/2006 4:17 PM 6 4:18 CDT PM CDT Jonathan Velásquez MD LABORATORY Performing Organization Address City/[facility]/ZIP Code Phon e Number [address] LABS CHLMYD TRACH, DNA, AMP PROBE (04/29/2006 4:17 PM CDT) Component Value Ref Test Analysis Performed At [facility] Method [place] Signature Specimen Urine [facility] LABS Chlamydia Negative for C. trachomatis rRNA by metal model maker mediated amplification. [facility] Trachomatis A negative result by transc ription mediated amplification does not preclude the CARSON PCR presence of C. trachomatis infection because results are dependent on proper CAMPUS LABS and adequate collection, absence of inhibitors, and suffici ent rRNA to be detected. Specimen Anatomical Collection Method Collection Time Receive d Time (Source) Location / / Volume Laterality 04/29/2006 4:17 PM 6 4:18 CDT PM CDT Jonathan Velásquez MD LABORATORY Performing Organization Address City/[facility]/ZIP Code Phon e Number [address] LABS documented in this encounter Visit Diagnoses Diagnosis Screening examination for venereal disea se documented in this encounter Care Teams Vehicle Body Maker Relationship Specialty Start Date End Date Jonathan Velásquez MD PCP - General 11/10/05 01/21/11 documented as of this encounter
--- OUTSIDE RECORDS SUMMARY | 2022-08-27 14:16 | XMS_ITS | Encounter Summary ---
:1960 Author Organization [place] Address [facility] [place] [address] Care Team Providers Name Role Phone Unavailable Primary Care Provider Unavailable Encounter Details Date Type Department Care Team Description 08/25/2005 Therapy Visit [place] Cyndi Crews iamCERVICA LGIA (Primary Athletic Medicine - PT Dx) George Stapleton [facility] GEORGE STAPLETON PhysicalTherapy [address] [place] [address] [address] GEORGE STAPLETON [facility] [place] [address] [phone] Social History Tobacco Use Types Packs/Day Years [...] do you attend evangelical or Not asked jainism services? Do you [...] to the daily flowsheet for treatment today. RAM MANAGER RN documented in this encounter Plan of Treatment Not on filedocumented as of this encounter Procedures Procedure Name Priority Date/Time Associated Diagnosis Comme nts [facility] THERAPEUTIC Routine 08/25/2005 3:36 PM PROGRAM MANAGER RN iamCERVICALGIA EXERCISES [facility] MECHANICAL TRACTION Routine 08/25/2005 3:36 PM PROGRAM MANAGER RN iamCERV ICALGIA THERAPY [facility] HOT OR COLD PACKS Routine 08/25/2005 3:36 PM PROGRAM MANAGER RN iamCERVIC [place] [facility] documented in this encounter Visit Diagnoses Diagnosis iamCERVICALGIA - Primary Cervicalgia documented in this encounter
--- OUTSIDE RECORDS SUMMARY | 2022-08-27 14:16 | XMS_ITS | Encounter Summary ---
:1960 Author Organization [place] Address [address] [place] [address]. [place] [address] Care Team Providers Name Role Phone Jonathan Velásquez MD Primary Care Provider Reason for Visit Reason Comments RECHECK From 09/16/2006 Pneumonia Encounter Details Date Type Department Care Team Description 11/11/2005 Office Visit [facility] Jonathan Velásquez, OTHER MALAISE AND FATIGUE (Primary Dx); Clinic Britta Chaudhry MD DEPRESSIVE DISORDER NEC; [address] [place] [address] XXX RETIRED X XX MULTIPLE SCLEROSIS (H); Drive [address] [place] [address] DRUG [place]BUSE [place] [id number] NABIL ZHOU [phone] Social History Tobacco Use Types Packs/Day [...] do you attend spiritism or Not asked gnosticism services? Do you [...] Comments Blood Pressure 115/76 11/11/2005 12:30 PM SIGNAL PROCESSING ENGINEER Pulse 100 11/11/2005 12:30 PM SIGNAL PROCESSING ENGINEER Temperature 36.3 ??C (97.4 ??F) 11/11/2005 12:30 PM SIGNAL PROCESSING ENGINEER Respiratory Rate 16 11/11/2005 12:30 PM SIGNAL PROCESSING ENGINEER Oxygen Saturation - - Inhaled Oxygen Concentration - - Weight 72.6 kg (160 lb) 11/11/2005 12:30 PM SIGNAL PROCESSING ENGINEER Height 167.6 cm (5' 6) 11/11/2005 12:30 PM SIGNAL PROCESSING ENGINEER Body Mass Index 25.82 11/11/2005 12:30 PM SIGNAL PROCESSING ENGINEER documented in this encounter Progress Notes Jonathan [...] chem dep. Counseling and detox. 30 min AL PROCESSING ENGINEER documented in this encounter Nursing Notes 11/11/2005 12:30 PM CST >> MARGARITA RODAS 11/11/2005 12:28 pm Patient presents with: RECHECK - From 09/16/2006 Pneumonia BP 115/76 Pulse 100 Temp (Src) 97.4 (Oral) Resp 16 Ht 5' 6 (1.68m) Wt 160 lbs (72.6kg) BP completed using cuff size: large. P.Bridgette INSTRUMENTATION INSTRUCTOR documented in this encounter Plan of Treatment Not on filedocumented as of this encounter Procedures Procedure Name Priority Date/Time Associated Diagnosis Comme nts CL AFF CBC WITH Routine 11/11/2005 12:58 PM Other Malaise And Results for this PLATELETS, DIFF SIGNAL PROCESSING ENGINEER Fatigue procedure ar e in the results section. HCL TSH W/FREE T4 Routine 11/11/2005 12:58 PM Other Malaise An d Results for this REFLEX SIGNAL PROCESSING ENGINEER Fatigue procedure are i n the results section. documented in this encounter Results TSH W/FREE T4 REFLEX (11/11/2005 12:58 PM SIGNAL PROCESSING ENGINEER) athologist Signature TSH 0.99 0.4 - 5.0 [facility] mU/L CLINIC LAB Specimen Anatomical Collection Method Collection Time Receive d Time (Source) Location / / Volume Laterality 11/11/2005 12:58 11/11/2005 PM SIGNAL PROCESSING ENGINEER 12:59 PM SIGNAL PROCESSING ENGINEER Jonathan Velásquez MD LABORATORY Performing Organization Address City/State/ZIP Code Phon e Number [facility] [address] [place] [address] [facility] LAB (ABNORMAL) CBC WITH PLATELETS, DIFF (11/11/2005 12:58 PM SIGNAL PROCESSING ENGINEER) [employer] gist Method Time Signature WBC 9.4 4.0 - [place] 11.0 [facility] 10e9/L CLINIC LAB RBC Count 4.78 4.4 - 5.9 [place] 10e12/L [facility] LAB Hemoglobin 14.4 13.3 - [place] 17.7 g/dL [facility] LAB Hematocrit 44.4 40.0 - [place] 53.0 % [facility] MCV 93 78 - 100 [place] fl [facility] MCH 30.1 26.5 - COUNTS INCLUDE 234 [facility] 33.0 pg [facility] MCHC 32.4 32.0 - [place] 36.0 g/dL [facility] RDW 13.5 10.0 - [place] 15.0 % [facility] Platelet Count 211 150 - 450 [place] 10e9/L [facility] Diff Method [facility] LAB % Lymphocytes 13 (L) 20 - 48 % [facility] % Monocytes 5 0 - 12 % [facility] LAB % Granulocytes 82 (H) 40 - 75 % [facility] Absolute 1.2 0.8 - 5.3 [place] Lymphocytes 10e9/L [facility] Absolute 0.5 0.0 - 1.3 [place] Monocytes 10e9/L [facility] Absolute 7.7 1.6 - 8.3 [place] Granulocytes 10e9/L [facility] Specimen Anatomical Collection Method Collection Time Receive d Time (Source) Location / / Volume Laterality 11/11/2005 12:58 11/11/2005 PM SIGNAL PROCESSING ENGINEER 12:59 PM SIGNAL PROCESSING ENGINEER Jonathan Velásquez MD LABORATORY Performing Organization Address City/State/ZIP Code Phon e Number [facility] [address] [place] [address] [facility] LAB documented in this encounter Visit Diagnoses Diagnosis Other malaise and fatigue - Primary Depressive disorder, not elsewhere class ified Multiple sclerosis (H) Multiple sclerosis Other, mixed, or unspecified nondependen t drug abuse, unspecified documented in this encounter Care Teams Research Interviewer Relationship Specialty Start Date End Date Jonathan Velásquez MD PCP - General 11/10/05 01/21/11 documented as of this encounter
--- OUTSIDE RECORDS SUMMARY | 2022-08-27 14:20 | XMS_ITS | Clinical Summary ---
:1960 Author Organization [facility] [place] [address] Care Team Providers Name Role Phone Teresita Garcia MD Primary Care Provider Lorna West RN Unavailable [facility], [facility] Unavailable Allergies Active Allergy Reactions Severity Noted [...] Active mg/mL soln Every 6 months - [facility] infuses calcium Chew 1 Tablet by 0 Act eleil carbonate-vitamin mouth 2 times D3 600 mg [...] 200 mg mouth two times tablet daily. ciprofloxacin HCl Take 500 mg by 0 08/24/2022 Active (CIPRO) 500 mg mouth two times 2 tablet daily. Hospital, Clinic, or Other Ordered [...] Team Description 08/26/2022 Home Care Visit Zoie Murrell, SN - H OME VISIT RN 08/24/2022 Emergency Kodak Marino ysreflexia (Primary Dx); MD Thom Constipation, unspecified constipation t wilmare Flory Ivy MD 08/24/2022 Travel 08/24/2022 Home Care Visit Mi Mullins RN CARE C OORDINATION 08/20/2022 Home Care Visit Zoie Murrell SN - P RN HOME VISIT RN 08/20/2022 Orders Only Chris Mcmahan, <No scan s attached> 08/20/2022 Orders Only Chris Mcmahan, Lab MD 08/19/2022 Home Care Visit Prow, Dorys A METER INSTALLER AND REMOVER - LONG VISIT 08/19/2022 Home Care Visit Zoie Murrell, SN - H OME VISIT RN 08/15/2022 Home Care Visit Prow, Dorys A METER INSTALLER AND REMOVER - LONG VISIT 08/12/2022 Home Care Visit Zoie Murrell SN - L LUDMILA VISIT (>90 RN MINUTES) 08/12/2022 Home Care Visit Prow, Dorys A METER INSTALLER AND REMOVER - LONG VISIT 08/08/2022 Home Care Visit Prow, Dorys A METER INSTALLER AND REMOVER - LONG VISIT 08/05/2022 Home Care Visit Prow, Dorys A METER INSTALLER AND REMOVER - LONG VISIT 08/05/2022 Home Care Visit Zoie Murrell SN - H OME VISIT RN 08/01/2022 Home Care Visit Prow, Dorys A METER INSTALLER AND REMOVER - LONG VISIT 07/30/2022 Home Care Visit Zoie Murrell SN - H OME VISIT RN 07/29/2022 Home Care Visit Prow, Dorys A METER INSTALLER AND REMOVER - LONG VISIT 07/29/2022 Home Care Visit Quin Lantigua RN CARE COORDINATION 07/29/2022 Home Care Visit Quin Lantigua RN CARE COORDINATION 07/25/2022 Home Care Visit Prow, Dorys A METER INSTALLER AND REMOVER - LONG VISIT 07/22/2022 Home Care Visit Prow, Dorys A METER INSTALLER AND REMOVER - LONG VISIT 07/22/2022 Home Care Visit Zoie Murrell SN - H OME VISIT RN 07/18/2022 Home Care Visit Prow, Dorys A METER INSTALLER AND REMOVER - LONG VISIT 07/15/2022 Home Care Visit Prow, Dorys A METER INSTALLER AND REMOVER - LONG VISIT 07/15/2022 Home Care Visit Zoie Murrell SN - H OME VISIT RN 07/11/2022 Home Care Visit Prow, Dorys A METER INSTALLER AND REMOVER - LONG VISIT 07/08/2022 Home Care Visit Prow, Dorys A METER INSTALLER AND REMOVER - LONG VISIT 07/08/2022 Home Care Visit Zoie Murrell, SN - O ASIS RECERTIFICATION RN 07/07/2022 Office Visit Baclofen Implan table Pump 07/07/2022 Hospital Encounter Hina Alcocer, Mul tiple sclerosis, PHYSICIAN OFFICE SPECIALIST relapsing-remit ting (HC) 07/07/2022 Travel 07/04/2022 Home Care Visit Prow, Dorys A METER INSTALLER AND REMOVER - LONG VISIT 07/03/2022 Home Care Visit Zoie Murrell, CARE C OORDINATION RN 07/01/2022 Home Care Visit Prow, Dorys A METER INSTALLER AND REMOVER - LONG VISIT 07/01/2022 Home Care Visit Zoie Murrell, SN - H OME VISIT RN 06/27/2022 Home Care Visit Prow, Dorys A METER INSTALLER AND REMOVER - LONG VISIT 06/24/2022 Home Care Visit Prow, Dorys A METER INSTALLER AND REMOVER - LONG VISIT 06/24/2022 Home Care Visit Zoie Murrell, SN - H OME VISIT RN 06/20/2022 Home Care Visit Prow, Dorys A METER INSTALLER AND REMOVER - LONG VISIT 06/17/2022 Home Care Visit Prow, Dorys A METER INSTALLER AND REMOVER - LONG VISIT 06/17/2022 Home Care Visit Zoie Murrell, SN - H OME VISIT RN 06/13/2022 Home Care Visit Prow, Dorys A METER INSTALLER AND REMOVER - LONG VISIT 06/10/2022 Home Care Visit Prow, Dorys A METER INSTALLER AND REMOVER - LONG VISIT 06/10/2022 Home Care Visit Zoie Murrell, SN - H OME VISIT RN 06/06/2022 Home Care Visit Prow, Dorys A METER INSTALLER AND REMOVER - MISSE D VISIT 06/03/2022 Home Care Visit Prow, Dorys A METER INSTALLER AND REMOVER - LONG VISIT 06/03/2022 Home Care Visit Zoie Murrell, SN - H OME VISIT RN 05/30/2022 Home Care Visit Prow, Dorys A METER INSTALLER AND REMOVER - LONG VISIT 05/27/2022 Home Care Visit Prow, Dorys A METER INSTALLER AND REMOVER - LONG VISIT 05/27/2022 Home Care Visit Zoie Murrell, SN - H OME VISIT RN from Last 3 Months Immunizations Name Administration [...] old.?Older brother has hyperlipidem ia.?Paternal grandfather of PA at unknown age. Genetic Other 2 Father [...] Assigned at Date Recorded Not on file COVID-19 Exposure Response Date Recorded In the last 10 days, have you been in contact with No / Unsu re 08/24/2022 3:42 PM LIQUIFIED NATURAL GAS TECHNICIAN someone who was confirmed or suspected to have Coronavirus/COVID-19? Obstetrics History Last Filed Vital Signs Vital Sign Reading Time Taken Comments Blood Pressure 110/64 08/24/2022 8:04 PM LIQUIFIED NATURAL GAS TECHNICIAN Pulse 86 08/24/2022 8:04 PM LIQUIFIED NATURAL GAS TECHNICIAN Temperature 36.7 ??C (98 ??F) 08/24/2022 8:04 PM LIQUIFIED NATURAL GAS TECHNICIAN Respiratory Rate 18 08/24/2022 8:04 PM LIQUIFIED NATURAL GAS TECHNICIAN Oxygen Saturation 95% 08/24/2022 8:04 PM LIQUIFIED NATURAL GAS TECHNICIAN Inhaled Oxygen Concentration - - Weight 80.8 kg (178 lb 3.2 oz) 08/24/2022 3:44 PM LIQUIFIED NATURAL GAS TECHNICIAN Height 170.2 cm (5' 7) 08/24/2022 3:44 PM LIQUIFIED NATURAL GAS TECHNICIAN Body Mass Index 27.91 08/24/2022 3:44 PM LIQUIFIED NATURAL GAS TECHNICIAN Plan of Treatment Upcoming Encounters Date Type Specialty Care Team Description 08/29/2022 Home Care Visit 09/02/2022 Home Care Visit Zoie Murrell RN [address] [place] [address] (Wo rk) 09/02/2022 Home Care Visit Dorys Cordon [address] [place] [address] (Wo rk) 09/05/2022 Home Care Visit Dorys Cordon [address] [place] [address] (Wo rk) 09/09/2022 Home Care Visit Dorys Cordon [address] [place] [address] (Wo rk) 09/26/2022 Office Visit Argelia Aguilar, DO [address] [facility] [address] [place] [address] (Wo rk) Health Maintenance Due Date Last [...] 05/29/2022 07/27/2016 Medical Devices Implanted Type Area Plush Brusher Device Shelf Expiration Model / Identifier Date Serial / Lot Pump Synchromed Ii 20ml - [id number] Spine Medtronic 04/24/2012 [id number] / Implanted: Qty: 1 on 12/16/2010 at [facility] [id number] / Explanted: at [facility] (Quantity not on file) Duraseal Spine [id number] / Implanted: Qty: 1 on 03/11/2011 at [facility] / Description: DURASEAL Graft 1x1 Dura Mater Duragen - [id number] [employer] N EURO SUPPLIES 01/25/2014 [id number] / Implanted: Qty: 1 on 05/15/2011 at [facility] / [id number] Cnnctr Spinal Indura Sutureless - [id number] N/A : Abdomen Medtronic Pain Therapy 06/14/2017 [id number] / Implanted: Qty: 1 on 01/27/2017 by Frederic Talley MD at [facility] / [id number] Procedures Procedure Name Priority Date/Time Associated Comments Diagnosis XR ABDOMEN 1 VIEW STAT 08/24/2022 7:19 PM Resu lts for this LIQUIFIED NATURAL GAS TECHNICIAN procedure are i n the results section. URINALYSIS STAT 08/24/2022 5:09 PM Results f or this MICROSCOPIC LIQUIFIED NATURAL GAS TECHNICIAN procedure are i n the results section. URINE CULTURE STAT 08/24/2022 5:09 PM LIQUIFIED NATURAL GAS TECHNICIAN UA W/ SEDIMENT EXAM STAT 08/24/2022 5:09 PM Re sults for this REFLEXED PER CRITERIA LIQUIFIED NATURAL GAS TECHNICIAN proced ure are in the results section. BASIC METABOLIC PANEL STAT 08/24/2022 4:29 PM Results for this LIQUIFIED NATURAL GAS TECHNICIAN procedure are i n the results section. URINALYSIS Routine 08/20/2022 7:00 PM Urinary tract Results for this MICROSCOPIC LIQUIFIED NATURAL GAS TECHNICIAN infection procedure are i n associated with the results indwelling urethral section. catheter, initial encounter (HC) CBC WITH AUTO Routine 08/20/2022 7:00 PM Weakness Results for this DIFFERENTIAL LIQUIFIED NATURAL GAS TECHNICIAN procedure are i n the results section. URINE CULTURE Routine 08/20/2022 7:00 PM Urinary tract Results for this LIQUIFIED NATURAL GAS TECHNICIAN infection procedure are i n associated with the results indwelling urethral section. catheter, initial encounter (HC) UA W/ SEDIMENT EXAM Routine 08/20/2022 7:00 PM Urinary tract R esults for this REFLEXED PER CRITERIA LIQUIFIED NATURAL GAS TECHNICIAN infection proced ure are in associated with the results indwelling urethral section. catheter, initial encounter (HC) VITAMIN D 25 Routine 08/20/2022 7:00 PM Weakness Results f or this (DEFICIENCY) LIQUIFIED NATURAL GAS TECHNICIAN procedure are i n the results section. COMP METABOLIC PANEL Routine 08/20/2022 7:00 PM Weakness R esults for this LIQUIFIED NATURAL GAS TECHNICIAN procedure are i n the results section. CBC WITH AUTO Routine 08/20/2022 7:00 PM Weakness Results for this DIFFERENTIAL LIQUIFIED NATURAL GAS TECHNICIAN procedure are i n the results section. MR HEAD BRAIN WWO Routine 07/07/2022 1:38 PM Multiple sclerosi s, Results for this CDT relapsing-remitting procedur e are in (HC) the results section. from Last 3 Months Results XR ABDOMEN 1 VIEW (08/24/2022 7:19 PM LIQUIFIED NATURAL GAS TECHNICIAN) Anatomical Region Laterality Modality Abdomen Digital Radiography Specimen (Source) Anatomical Collection Method Collection Time Re ceived Time Location / / Volume Laterality 08/24/2022 7:26 PM LIQUIFIED NATURAL GAS TECHNICIAN Narrative 08/24/2022 7:26 PM LIQUIFIED NATURAL GAS TECHNICIAN For Patients: ??As a result of the Cures Act, medical imaging exams and procedure report s are released immediately into your [facility] medical record. ??You may view this report before your referring provider. ??If you have questions, please contact your health care provider. Indication: No bowel movement Technique: Two view KUB Comparison: No comparison Findings: Hip arthroplasties. Moderate stool marina en. No dilated loops of bowel. No free air. Bowel gas pattern nonobstructive Dictated by Jacquelyn Farah MD @ Aug 24 ??7:26PM (Electronically Signed) ?? Procedure Note Jacquelyn Farah MD - 08/24/2022 For Patients: As a result of the Cures Act, medical imaging exams and procedure reports are released immediately into your electronic medical record. You may view this report before your referring provider. If you have questions, please contact [facility] health care provider. Indication: No bowel movement Technique: Two view KUB Comparison: No comparison Findings: Hip arthroplasties. Moderate stool marina en. No dilated loops of bowel. No free air. Bowel gas pattern nonobstructive Dictated by Jacquelyn Farah MD @ Aug 24 7:26PM (Electronically Signed) Kodak Marino MD GENERAL IMAGING (ABNORMAL) URINALYSIS MICROSCOPIC (08/24/2022 5:09 PM LIQUIFIED NATURAL GAS TECHNICIAN)Only the most recent of2 resultswithin the time period is included. [facility] Method Time Signature RBC 0-2 0-2, None 08/24/2022 [facility] Seen /HPF 5:36 PM LIQUIFIED NATURAL GAS TECHNICIAN [facility] TRAL LABORATORY WBC 11-25 (A) 0-2, 3-5, 08/24/2022 [facility] None Seen 5:36 PM LIQUIFIED NATURAL GAS TECHNICIAN [facility] /HPF TRAL LABORATORY BACTERIA Few None 08/24/2022 [facility] Seen, 5:36 PM LIQUIFIED NATURAL GAS TECHNICIAN [facility] Rare, Few TRAL Bacteria/ LABORATORY HPF EPITHELIAL Few None 08/24/2022 [facility] CELLS Seen, Few 5:36 PM LIQUIFIED NATURAL GAS TECHNICIAN [facility] Epi/HPF TRAL LABORATORY HYALINE CASTS 0-2 0-2, 3-5 [facility]F 5:36 PM LIQUIFIED NATURAL GAS TECHNICIAN [facility] TRAL LABORATORY Specimen Anatomical Collection Method Collection Time Receive d Time (Source) Location / / Volume Laterality Urine URINE SPECIMEN / Non-Blood / 08/24/2022 5:09 PM 08/24 5:26 Unknown Unknown LIQUIFIED NATURAL GAS TECHNICIAN PM LIQUIFIED NATURAL GAS TECHNICIAN Kodak Marino MD URINE Performing Organization Address City/State/ZIP Code Phon e Number [facility] [address] [place] [address] LABORATORY-CENTRAL 2000 LABORATORY (ABNORMAL) UA W/ SEDIMENT EXAM REFLEXED PER CRITERIA (08/24/2022 5:09 PM LIQUIFIED NATURAL GAS TECHNICIAN) Only the most recent of2 resultswithin the time period is included. [facility] Method Time Signature COLOR Yellow Yellow Color 08/24/2022 [facility] 5:36 PM LIQUIFIED NATURAL GAS TECHNICIAN LABORATORY-[facility] NTRAL LABORATORY CLARITY Clear Clear 08/24/2022 [facility] Clarity 5:36 PM LIQUIFIED NATURAL GAS TECHNICIAN LABORATORY-[facility] NTRAL LABORATORY SPECIFIC <=1.005 (A) 1.010, 08/24/2022 [facility] GRAVITY,URINE 1.015, 5:36 PM LIQUIFIED NATURAL GAS TECHNICIAN LABORATORY-CE 1.020, 1.025 NTRAL LABORATORY PH,URINE 7.5 6.0, 7.0, 08/24/2022 [facility] 8.0, 5.5, 5:36 PM LIQUIFIED NATURAL GAS TECHNICIAN LABORATORY-CE 6.5, 7.5, NTRAL 8.5 LABORATORY UROBILINOGEN, Normal Normal EU/dl 08/24/2022 [facility] QUALITATIVE 5:36 PM LIQUIFIED NATURAL GAS TECHNICIAN LABORATORY-CE NTRAL LABORATORY PROTEIN, Negative Negative 08/24/2022 [facility] URINE mg/dL 5:36 PM LIQUIFIED NATURAL GAS TECHNICIAN LABORATORY-CE NTRAL LABORATORY GLUCOSE, Negative Negative 08/24/2022 [facility] URINE mg/dL 5:36 PM LIQUIFIED NATURAL GAS TECHNICIAN LABORATORY-CE NTRAL LABORATORY KETONES,URINE Negative Negative 08/24/2022 [facility] mg/dL 5:36 PM LIQUIFIED NATURAL GAS TECHNICIAN LABORATORY-CE NTRAL LABORATORY BILIRUBIN,URI Negative Negative 08/24/2022 [facility] NE 5:36 PM LIQUIFIED NATURAL GAS TECHNICIAN LABORATORY-CE NTRAL LABORATORY OCCULT Negative Negative 08/24/2022 [facility] BLOOD,URINE 5:36 PM LIQUIFIED NATURAL GAS TECHNICIAN LABORATORY-CE NTRAL LABORATORY NITRITE Negative Negative 08/24/2022 [facility] 5:36 PM LIQUIFIED NATURAL GAS TECHNICIAN LABORATORY-CE NTRAL LABORATORY LEUKOCYTE Large (A) Negative 08/24/2022 [facility] ESTERASE 5:36 PM LIQUIFIED NATURAL GAS TECHNICIAN LABORATORY-[facility] NTRAL LABORATORY Specimen Anatomical Collection Method Collection Time Receive d Time (Source) Location / / Volume Laterality Urine URINE SPECIMEN / Non-Blood / 08/24/2022 5:09 PM 08/24 5:26 Unknown Unknown LIQUIFIED NATURAL GAS TECHNICIAN PM LIQUIFIED NATURAL GAS TECHNICIAN Kodak Marino MD URINE Performing Organization Address City/State/ZIP Code Phon e Number [facility] [address] [place] [address] LABORATORY-[facility]TR[facility] 2000 LABORATORY (ABNORMAL) BASIC METABOLIC PANEL (08/24/2022 4:29 PM LIQUIFIED NATURAL GAS TECHNICIAN) Analysis Performed At Patho logist Time Signature SODIUM 136 135 - 145 08/24/2022 [facility] mmol/L 5:15 PM LIQUIFIED NATURAL GAS TECHNICIAN [facility] TRAL LABORATORY POTASSIUM 3.8 3.5 - 5.0 08/24/2022 [facility] mmol/L 5:15 PM LIQUIFIED NATURAL GAS TECHNICIAN [facility] TRAL LABORATORY CHLORIDE 101 98 - 110 08/24/2022 [facility] mmol/L 5:15 PM LIQUIFIED NATURAL GAS TECHNICIAN [facility] TRAL LABORATORY CO2,TOTAL 27 21 - 31 08/24/2022 [facility] mmol/L 5:15 PM LIQUIFIED NATURAL GAS TECHNICIAN [facility] TRAL LABORATORY ANION GAP 8 5 - 18 08/24/2022 [facility] 5:15 PM LIQUIFIED NATURAL GAS TECHNICIAN [facility] TR[facility] LABORATORY GLUCOSE 105 (H) 65 - 100 08/24/2022 [facility] mg/dL 5:15 PM LIQUIFIED NATURAL GAS TECHNICIAN [facility] TRAL LABORATORY CALCIUM 9.4 8.5 - 10.5 08/24/2022 [facility] mg/dL 5:15 PM LIQUIFIED NATURAL GAS TECHNICIAN [facility] TR[facility] LABOR[facility]ORY BUN 13 8 - 25 08/24/2022 [facility] mg/dL 5:15 PM LIQUIFIED NATURAL GAS TECHNICIAN [facility] CREATININE 1.03 0.72 - 08/24/2022 [facility] 1.25 mg/dL 5:15 PM LIQUIFIED NATURAL GAS TECHNICIAN [facility] LAB[facility]ORY BUN/CREAT RATIO 13 10 - 20 08/24/2022 [facility] 5:15 PM LIQUIFIED NATURAL GAS TECHNICIAN [facility] LABORATORY eGFR 83 (L) >90 08/24/2022 [facility] mL/min/1.7 5:15 PM LIQUIFIED NATURAL GAS TECHNICIAN [facility] 3m2 TRAL LABORATORY Comment: As of 2021, eGFR is calcu lated by the CKD-EPI creatinine equation without race adjustment. eGFR can be inf luenced by muscle mass, exercise, and diet. The reported eGFR is an estimation only and is only applicable if the renal function is stable. Specimen Anatomical Collection Method / Collection Time Recei rao Time (Source) Location / Volume Laterality Blood BLOOD SPECIMEN / Venipuncture / 08/24/2022 4:29 2021 4:40 Unknown Unknown PM LIQUIFIED NATURAL GAS TECHNICIAN PM LIQUIFIED NATURAL GAS TECHNICIAN Kodak Marino MD CHEMISTRY Performing Organization Address City/State/ZIP Code Phon e Number [facility] [address] [place] [address] [place] [address] LABORATORY-CENTRAL 1999 LABORATORY CBC WITH AUTO DIFFERENTIAL (08/20/2022 7:00 PM LIQUIFIED NATURAL GAS TECHNICIAN) P athologist Signature WHITE BLOOD 5.4 4.5 - 11.0 08/20/2022 [facility] COUNT thou/cu mm 7:54 PM LIQUIFIED NATURAL GAS TECHNICIAN [facility] LAB RED BLOOD COUNT 5.10 4.30 - 08/20/2022 [facility] 5.90 7:54 PM LIQUIFIED NATURAL GAS TECHNICIAN [facility] LAB HEMOGLOBIN 15.8 13.5 - 08/20/2022 [facility] 17.5 g/dL 7:54 PM LIQUIFIED NATURAL GAS TECHNICIAN [facility] LAB HEMATOCRIT 47.5 37.0 - 08/20/2022 [facility] 53.0 % 7:54 PM [facility] LAB MCV 93 80 - 100 08/20/2022 [facility] fL 7:54 PM [facility] LAB MCH 31.0 26.0 - 08/20/2022 [facility] 34.0 pg 7:54 PM [facility] LAB MCHC 33.3 32.0 - 08/20/2022 [facility] 36.0 g/dL 7:54 PM [facility] LAB RDW 12.5 11.5 - 08/20/2022 [facility] 15.5 % 7:54 PM [facility] LAB PLATELET COUNT 238 140 - 440 08/20/2022 [facility] thou/cu mm 7:54 PM [facility] LAB MPV 10.3 6.5 - 11.0 08/20/2022 [facility] fL 7:54 PM [facility] LAB % NEUT 64.1 % 08/20/2022 [facility] 7:54 PM [facility] LAB % LYMPH 24.9 % 08/20/2022 [facility] 7:54 PM [facility] LAB % MONO 8.8 % 08/20/2022 [facility] 7:54 PM [facility] LAB % EOS 1.5 % 08/20/2022 [facility] 7:54 PM [facility] LAB % BASO 0.7 % 08/20/2022 [facility] 7:54 PM [facility] LAB % IMMATURE GRAN 0.0 % 08/20/2022 [facility] (METAS,MYELOS,MI 7:54 PM [facility] LAB ABSOLUTE 3.5 1.7 - 7.0 08/20/2022 [facility] NEUTROPHILS thou/cu mm 7:54 PM [facility] LAB ABSOLUTE 1.4 0.9 - 2.9 08/20/2022 [facility] LYMPHOCYTES thou/cu mm 7:54 PM LIQUIFIED NATURAL GAS TECHNICIAN [facility] NGS [facility] ABSOLUTE 0.5 <0.9 08/20/2022 [facility] MONOCYTES thou/cu mm 7:54 PM LIQUIFIED NATURAL GAS TECHNICIAN [facility] LAB ABSOLUTE 0.1 <0.5 08/20/2022 [facility] EOSINOPHILS thou/cu mm 7:54 PM LIQUIFIED NATURAL GAS TECHNICIAN [facility] NGS [facility] LAB ABSOLUTE 0.0 <0.3 08/20/2022 [facility] BASOPHILS thou/cu mm 7:54 PM LIQUIFIED NATURAL GAS TECHNICIAN [facility] LAB ABSOLUTE 0.0 <0.3 08/20/2022 [facility] IMMATURE thou/cu mm 7:54 PM LIQUIFIED NATURAL GAS TECHNICIAN [facility] I ,MYELOS,PROS) [facility] LAB Specimen Anatomical Collection Method / Collection Time Recei rao Time (Source) Location / Volume Laterality Blood BLOOD SPECIMEN / Non-Lab 08/20/2022 7:00 08/20/20 7:50 Unknown Venipuncture / PM LIQUIFIED NATURAL GAS TECHNICIAN PM LIQUIFIED NATURAL GAS TECHNICIAN Unknown Narrative [facility] LAB - 08/20/2022 7:54 PM LIQUIFIED NATURAL GAS TECHNICIAN This procedure was originally ordered at [facility]. Chris Mcmahan MD HEMATOLOGY Performing Organization Address City/State/ZIP Code Phon e Number [address] [address] [facility] LAB VITAMIN D 25 (DEFICIENCY) (08/20/2022 7:00 PM LIQUIFIED NATURAL GAS TECHNICIAN) P athologist Signature VITAMIN D 40.4 30.0 - 08/23/2022 [facility] TOTAL 80.0 ng/mL 4:18 AM LIQUIFIED NATURAL GAS TECHNICIAN [facility] LABORATORY Specimen Anatomical Collection Method / Collection Time Recei rao Time (Source) Location / Volume Laterality Blood BLOOD SPECIMEN / Non-Lab 08/20/2022 7:00 08/20/20 7:50 Unknown Venipuncture / PM LIQUIFIED NATURAL GAS TECHNICIAN PM LIQUIFIED NATURAL GAS TECHNICIAN Unknown Narrative [facility] LABORATORY-CENTRAL LABORAT ORY - 08/23/2022 4:18 AM LIQUIFIED NATURAL GAS TECHNICIAN Deficiency: ? <20 ng/mL Insufficiency: ?20-29 ng/mL Sufficiency: ?30-80 ng/mL Possible Toxicity: ??>80 ng/mL Based on [place] [facility] recommend ations Chris Mcmahan MD SEND OUTS Performing Organization Address [facility] Code Phon e Number [facility] [address] [place] [address] LABORATORY-CENTRAL 1999 LABORATORY (ABNORMAL) URINE CULTURE (08/20/2022 7:00 PM LIQUIFIED NATURAL GAS TECHNICIAN) [facility] gist Method Time Signature CULTURE RESULT (A) 08/24/2022 [facility] 6:30 AM LIQUIFIED NATURAL GAS TECHNICIAN [facility] TRAL LABORATORY CULTURE >100,000 CFU/mL 08/24/2022 [facility] Enterococcus 6:30 AM LIQUIFIED NATURAL GAS TECHNICIAN [facility] faecalis TRAL LABORATORY CULTURE 50,000-100,000 08/24/2022 [facility] CFU/mL 6:30 AM LIQUIFIED NATURAL GAS TECHNICIAN [facility] Pseudomonas TRAL aeruginosa LABORATORY Specimen Anatomical Collection Method Collection Time Receive d Time (Source) Location / / Volume Laterality Urine URINE SPECIMEN / Non-Blood / 08/20/2022 7:00 PM 08/20 7:50 Unknown Unknown LIQUIFIED NATURAL GAS TECHNICIAN PM LIQUIFIED NATURAL GAS TECHNICIAN Organism Antibiotic Method Susceptibility Enterococcus faecalis GENTAMICIN SYNERGY R Enterococcus faecalis STREPTOMYCIN SYNERGY R Enterococcus faecalis VANCOMYCIN 1: S Enterococcus faecalis LEVOFLOXACIN >=8: R Enterococcus faecalis AMPICILLIN <=2: S Enterococcus faecalis NITROFURANTOIN <=16: S Pseudomonas aeruginosa GENTAMICIN <=1: S Pseudomonas aeruginosa CEFTAZIDIME 16: I Pseudomonas aeruginosa LEVOFLOXACIN 2: I Pseudomonas aeruginosa CIPROFLOXACIN 0.5: S Pseudomonas aeruginosa PIPERACILLIN/TAZO 32: I Pseudomonas aeruginosa CEFEPIME I Pseudomonas aeruginosa TOBRAMYCIN <=1: S Pseudomonas aeruginosa MEROPENEM 4: I Chris Mcmahan MD MICROBIOLOGY Performing Organization Address City/[facility]/ZIP Code Phon e Number [employer] [address] [place] [address] LABORATORY-CENTRAL 1999 LABORATORY (ABNORMAL) COMP METABOLIC PANEL (08/20/2022 7:00 PM [employer]IED [employer]CHNICIAN) Analysis Performed At [facility] logist Time Signature SODIUM 138 135 - 145 08/20/2022 [facility] mmol/L 8:42 PM LIQU[employer] TECHNICIAN [facility] POTASSIUM 4.0 3.5 - 5.0 08/20/2022 [facility] mmol/L 8:42 PM [facility] CHLORIDE 101 98 - 110 08/20/2022 [facility] mmol/L 8:42 PM [facility] CO2,TOTAL 27 21 - 31 08/20/2022 [facility] mmol/L 8:42 PM [facility] ANION GAP 10 5 - 18 08/20/2022 [facility] 8:42 PM LIQUIFIED NATURAL GAS TECHNICIAN [facility] GLUCOSE 120 (H) 65 - 100 08/20/2022 [facility] mg/dL 8:42 PM [facility] CALCIUM 9.3 8.5 - 10.5 08/20/2022 [facility] mg/dL 8:42 PM [facility] BUN 9 8 - 25 08/20/2022 [facility] mg/dL 8:42 PM LIQUIFIED NATURAL GAS TECHNICIAN [facility] CREATININE 0.88 0.72 - 08/20/2022 [facility] 1.25 mg/dL 8:42 PM [facility] BUN/CREAT RATIO 10 10 - 20 08/20/2022 [facility] 8:42 PM [facility] ALBUMIN 4.4 3.2 - 4.6 08/20/2022 [facility] g/dL 8:42 PM [facility] PROTEIN,TOTAL 6.4 6.0 - 8.0 08/20/2022 [facility] g/dL 8:42 PM LIQUIFIED NATURAL GAS TECHNICIAN [facility] GLOBULIN 2.0 2.0 - 3.7 08/20/2022 [facility] g/dL 8:42 PM [facility] A/G RATIO 2.2 (H) 1.0 - 2.0 08/20/2022 [facility] 8:42 PM [facility] BILIRUBIN,TOTAL 0.4 0.2 - 1.2 08/20/2022 [facility] mg/dL 8:42 PM LIQUIFIED NATURAL GAS TECHNICIAN [facility] ALK PHOSPHATASE 74 50 - 136 08/20/2022 [facility] IU/L 8:42 PM [facility] ALT (SGPT) 36 8 - 45 08/20/2022 [facility] IU/L 8:42 PM [facility] AST (SGOT) 20 2 - 40 08/20/2022 [facility] IU/L 8:42 PM [facility] eGFR >90 >90 08/20/2022 [facility] mL/min/1.7 8:[address] LAB Comment: As of 2021, eGFR is [...] 7:00 08/20/20 7:50 Unknown Venipuncture / PM 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 3. Iknd-nm-cinwsyyz T1 hypointense lesio n load. Mild cerebral and callosal atrophy. Dictated by Dandy Meza MD @ 07/07/20 2:47:11 PM (Electronically Signed) Narrative 07/07/2022 2:47 PM CDT For Patients: ??As a result of the Cures Act, medical imaging exams and procedure report s are released immediately into your [facility] medical record. ??You may view this [...] within the tomasa and right brachium pontis. Xflo-mv-wgbtezlo T1 hypointense lesion load. No enhancing lesions. [...] within the tomasa and right brachium pontis. Llic-yu-ohgxjcka T1 hypointense lesion load. No enhancing lesions. [...] enhancing lesions to suggest active demyelination. 3. Ksum-zp-qdsolcyx T1 hypointense lesio n load. Mild cerebral and callosal atrophy. Dictated by Dandy Meza MD @ 07/07/20 22 2:47:11 PM (Electronically Signed) Hina Alcocer PHYSICIAN OFFICE SPECIALIST MR from Last 3 Months Insurance Payer Benefit Plan / Subscriber ID Effective Phone Address T e Group Dates MEDICARE PART MEDICARE PART B [id number] 2006-Pres A TTN: CLAIMS B - HB USE HB ONLY ent [address] [place] [address] MEDICARE PART MEDICARE PART A [id number] 2006-Pres A TTN: CLAIMS A - HB USE HB ONLY ent [address] [place] [address] MEDICARE - PB MEDICARE PB [id number] 2006-Pres ATTN: CLAIMS USE ONLY ONLY ent [address] [place] [address] BLUE CROSS BLUE CROSS OF [id number] 2018-Prese [address] [facility] [place] [address] MEDICARE PPS HC MEDICARE PPS [id number] 2006-Pres [address] ent [address] [place] [address] [address] [address] [place] [address] Jennifer,Dejuan Personal/Family Self 1960 [address] [address] [place] [address] Advance Directives Latest Code Status on File [...] Discussion: Per Advance Care Plan Care Teams Dental Surgery Doctor Relationship Specialty Start Date End Date Teresita Garcia MD PCP - General 05/13/11 [address] [place] [address] Lorna West RN Spasticity Management Care Registered Nurse 08/05/21 [address] Coordination- CK[address] [place] [address] [facility], 01/14/22 [address] [place] [address]
== END 2022-08-16 16:22 | disposition home or self-care (01) ==
LOC: AMB 08-27 13:23
PROVIDERS: Visit Provider Emergency Medicine Emergency Medical Services
DX: G35 Multiple sclerosis (principal); Z74.01 Bed confinement status
CPT/HCPCS: A0425; A0428

== ENCOUNTER 2022-08-21 16:09 | Emergency (ER) | payer MEDICARE, BC, SELFPAY ==
[2022-08-21] VITALS (12 sets, daily range): BP systolic 112–128; BP diastolic 61–77; PULSE 90–100; RESP 20; TEMP 36.4; O2SAT 94–97; BMI 29.0
--- NOTE | 2022-08-21 16:42 | CRLHL7_ITS ---
For Patients: As a result of the Century Cures Act, medical imaging exams and procedure reports are released immediately into your electronic medical record. You may view this report before your referring provider. If you have questions, please contact your health care provider. INDICATION: Weakness. TECHNIQUE: Portable AP chest. COMPARISON: None. FINDINGS: Lungs clear. Normal heart size and pulmonary vascularity. No pleural effusion. No pneumothorax. IMPRESSION: Normal chest. Dictated by Evangelista Gross MD @ 08/21/2022 5:50:17 PM Dictated by: Evangelista Gross MD @ 08/21/2022 17:50:22 (Electronically Signed)
--- NOTE | 2022-08-21 16:42 | ED_ITS ---
HPI - Weakness General Chief complaint: Weakness Stated complaint: Weakness Time Seen by Provider: 08/21/22 16:15 History of Present Illness HPI Narrative: 61-year-old man returning to the emergency department after being seen by myself about 2 weeks ago with increasing weakness. He assumed urinary tract infection per his history however urine was clear at that time. He says he had been guzzling some water just before arrival. He has not had any respiratory symptoms when I note that his oxygen sats are a little bit low. His weakness has increased. Is in assisted living and has just needed to ask for help for everything even just running a remote for the television. Can't even lift his arms and barely open his hands. He does have a neurologist with [facility] and has been cared for by nurse practitioner who collected urine and blood yesterday though results are still pending. His head there was lot of sediment in the urine that was collected although it is unclear to me how this was actually collected from indwelling Valenzuela. He had hoped that maybe they would call in s ome prednisone as he now agrees this is an MS flare. He is not having any pain other than this chronic pain in the right jaw area which has increased again. I discussed some differential with him and he says it has been thoroughly evaluated. Sounds like it might be TMJ. No abdominal pain but does admit that he has been constipated having had no bowel movement over the last 10 days. He says that he has been struggling generally over months with loose stools and some accidents in the bed. Stomach has been grumbling a lot more lately. 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 Related Data Home Medications Medication Instructions Recorded Confirmed alendronate 70 mg tablet 70 mg PO .weekly 08/16/22 08/16/22 baclofen 10 mg tablet 10 mg PO Q6H PRN 08/16/22 08/16/22 gabapentin 400 mg capsule 400 mg PO QID 08/16/22 08/16/22 ketoconazole 2 % shampoo 1 applic topical .twice weekly 08/16/22 08/16/22 ocrelizumab 30 mg/mL intravenous 300 mg IV [id number] 08/16/22 08/16/22 solution (Ocrevus) polyethylene glycol 3350 17 17 g PO DAILY PRN 08/16/22 08/16/22 gram/dose oral powder (ClearLax) pramipexole 0.125 mg tablet 0.125 mg PO QID 08/16/22 08/16/22 Allergies Allergy/AdvReac Type Severity Reaction Status Date / Time hydromorphone [From Dilaudid] AdvReac Intermediate Vomiting Verified 08/16/22 13:48 Review of Systems Status of ROS: Reports: 10 or more systems reviewed and unremarkable except as noted in History and below PFSH [facility] Social History Smoking Status: Never smoker Do you use any of these nicotine containing products: None Second hand tobacco smoke exposure: No How often do you have a drink containing alcohol: never How often do you have six or more drinks on one occasion: Never AUDIT-C Alcohol total score: 0 Non-prescribed substance use: denies use service: No Exam Narrative: Exam Narrative: Pleasant. Does seem generally fatigued. Week. Really having trouble just moving extremities. Lower extremities are in impression stockings under which there appears to be mild dependent edema. Skin is warm and dry otherwise without inflammatory changes. Back and sacral and buttock exam is without evidence of skin breakdown. Muscles generally appear to be week/mildly atrophied. Lungs are clear Oropharynx is is a little sticky. Abdomen is soft. Baclofen pump is palpable at the right low abdomen. Nontender. Cardiovascular with elevated rate in regular rhythm. Cranial nerves 2-12 look to be intact. Const: Vital Signs, click to edit/add: Vital Signs - 24 hr 08/21/22 16:15 08/21/22 17:00 08/21/22 16:30 Temperature 97.5 F L Pulse Rate Pulse Rate [Pulse Oximeter] 100 97 96 Respiratory Rate 20 20 Blood Pressure Blood Pressure [Le ft Upper Arm] 123/73 128/73 122/70 Pulse Oximetry 95 96 94 Oxygen Delivery Me thod Room Air Room Air Room Air 08/21/22 18:00 08/21/22 18:02 08/21/22 18:15 Temperature Pulse Rate 94 90 94 Pulse Rate [Pulse Oximeter] Respiratory Rate Blood Pressure 127/71 Blood Pressure [Le ft Upper Arm] Pulse Oximetry 97 94 94 Oxygen Delivery Me thod 08/21/22 18:30 08/21/22 18:32 08/21/22 18:45 Temperature Pulse Rate 96 93 93 Pulse Rate [Pulse Oximeter] Respiratory Rate Blood Pressure 112/61 Blood Pressure [Le ft Upper Arm] Pulse Oximetry 94 94 96 Oxygen Delivery Me thod 08/21/22 19:00 08/21/22 19:02 08/21/22 19:15 Temperature Pulse Rate 93 93 94 Pulse Rate [Pulse Oximeter] Respiratory Rate Blood Pressure 114/77 Blood Pressure [Le ft Upper Arm] Pulse Oximetry 96 95 94 Oxygen Delivery Me thod Documenting provider has reviewed patient's vital signs: yes Course Vital Signs Vital signs: Initial Vital Signs Temperature 97.5 F L 08/21/22 16:15 Temperature Source Temporal Artery Scan 08/21/22 16:15 Pulse Rate 100 08/21/22 16:15 Pulse Rhythm 08/21/22 16:15 Respiratory Rate 20 08/21/22 16:15 Blood Pressure 123/73 08/21/22 16:15 Blood Pressure Mean 89 08/21/22 16:15 Blood Pressure Position Right Lateral 08/21/22 16:15 Pulse Oximetry 95 08/21/22 16:15 Oxygen Delivery Method 08/21/22 16:15 Vital Signs Temperature 97.5 F L 08/21/22 16:15 Pulse Rate 100 08/21/22 16:15 Respiratory Rate 20 08/21/22 16:15 Blood Pressure 123/73 08/21/22 16:15 Pulse Oximetry 95 08/21/22 16:15 Oxygen Delivery Method 08/21/22 16:15 Temperature 97.5 F L 08/21/22 16:15 Pulse Rate 94 08/21/22 19:15 Respiratory Rate 20 08/21/22 17:00 Blood Pressure 114/77 08/21/22 19:02 Pulse Oximetry 94 08/21/22 19:15 Oxygen Delivery Method 08/21/22 17:00 MDM - Weakness MDM Narrative Medical decision making narrative: Unsure if there is value in repeating labs that were collected yesterday. I was able to get copies of these and review. Urinalysis was noted to be cloudy somewhat concentrated with 3-5 red cells greater than 100 white cells and moderate bacteria along with white cell clumps. Liver enzymes were also collected this liver panel was normal urine culture pending basic metabolic panel with creatinine of 0.88 and normal sodium and potassium. White count was not elevated platelets of 238 It does not sound to me is though urinalysis was ultimately collected I think it is worth repeating it here today. Results as below When I look at the urine in catheter/collection tubing, it looks quite clear. Indeed urine this evening is relatively unremarkable. 2-5 white cells but I think it looks quite good for a catheterized specimen. Triple swab is negative once again. Was mildly hypoxic and did do a chest x-ray as well. By my read this looks, while rotated, without infiltrative process. I did call to [facility] where Mr. Rodriguez has cares. Spoke to neurologist on-call who agrees with initiating steroid. Reviewed what has been prescribed in the past and given prednisone dosing here in the emergency department. I did also call to residence and spoke with care provider. Stressed concerns of increasing weakness and immobility that will require more attention. They do believe that they can provide care there. Returned home via ambulance transport Medical Records Attestation: I reviewed the patient's medical records. Lab Data Attestation: I reviewed the patient's lab results. Labs: Lab Results 08/21/22 08/21/22 Range/Units 16:30 17:25 Urine Color Yellow (Yellow) Urine Appearance Clear (Clear) Urine pH 7.5 (5.0-8.5) Ur Specific [place] 1.015 (1.000-1.030) Urine Protein Negative (Negative) Urine Glucose (UA) Negative (Negative) Urine Ketones Negative (Negative) Urine Blood Negative (Negative) Urine Nitrite Negative (Negative) Urine Bilirubin Negative (Negative) Urine Urobilinogen 0.2 (0.2-1.0) Ur Leukocyte Esterase 1+ A (Negative) Urine RBC 0-2 (0-2) Urine WBC 2-5 (0-5) Urine WBC Clumps None (None) Ur Squamous Epith Cells None (None-Few) Urine Bacteria None (None) SARS-CoV-2 (PCR) Negative SARS-CoV-2 (Negative) Influenza Type A (PCR) Negative PCR FLU A (Negative) Influenza Type B (PCR) Negative PCR FLU B (Negative) RSV (PCR) Negative PCR RSV (Negative) Discharge Plan Discharge Clinical Impression: Exacerbation of multiple sclerosis Patient Disposition: Home w/ Parent or Adult Condition: Stable Additional Instructions: Yes. I would continue to focus on hydration like you are doing. The neurologist recreation facility attendant is leaving a note for your neurologist/clinic and I would expect them to be getting ahold of you on Thursday. If you do not hear from them by noon I would call them yourself or have your staff do that. A urine culture is pending here. Prednisone from [facility]. Take the prednisone as 40 mg daily for 3 days starting tomorrow; then 20 mg daily for 4 days. You might talk to your neurologist about having a steroid on order for another flare of MS, especially if you can get a quick urinalysis and you do not have other symptoms of illness. Prescriptions: No Action alendronate 70 mg tablet 70 mg PO .weekly Ocrevus 30 mg/mL solution 300 mg IV [id number] gabapentin 400 mg capsule 400 mg PO QID Label Comments: TAKE ONE CAPSULE BY MOUTH FOUR TIMES A DAY ketoconazole 2 % shampoo 1 applic TOPICAL .twice weekly Label Comments: APPLY TOPICALLY ONCE WEEKLY pramipexole 0.125 mg tablet 0.125 mg PO QID Label Comments: TAKE ONE TABLET BY MOUTH FOUR TIMES A DAY baclofen 10 mg tablet 10 mg PO Q6H PRN Label Comments: TAKE 1-2 TABLETS BY MOUTH EVERY 6 HOURS NEEDED (SPASTICITY/ACUTE INTRATHECAL BACLOFEN WITHDRAWAL) AND CALL CLINIC FOR INSTRUCTION polyethylene glycol 3350 [ClearLax] 17 gram/dose powder 17 g PO DAILY PRN Follow Up/Referrals: Provider,Not a Local [Primary Care Provider] - Stand Alone Forms: [employer] Info Instructions
--- OUTSIDE RECORDS SUMMARY | 2022-08-21 16:56 | XMS_ITS | Encounter Summary ---
:1960 Author Organization [place] Address [address] [facility] [place] [address] Care Team Providers Name Role Phone Teresita Garcia MD Primary Care Provider Audrey Hickman MD Unavailable Encounter Details Date Type Department [...] or relatives? How often do you attend episcopalian or Not asked muslim services? Do you belong to any clubs or Not asked organizations such as episcopalian groups, unions, fraternal or athletic groups, or [...] as of this encounter Plan of Treatment Not on filedocumented as of this encounter Visit Diagnoses Not on filedocumented in this encounter Additional Health Concerns Assessment Noted Time PHQ-9 Depression Total Score: 6 04/12/2021 1:59 PM CDT documented as of this encounter Care Teams Redevelopment Specialist Relationship Specialty Start Date End Date Teresita Garcia MD PCP - General Family Practice 01/22/11 [address] [place], [place] [id number] Audrey Hickman MD Assigned PCP 12/29/21 [address] [place], [place] [id number] documented as of this encounter
--- OUTSIDE RECORDS SUMMARY | 2022-08-21 16:56 | XMS_ITS | Encounter Summary ---
:1960 Author Organization [place] Address [address] [facility] [place] [address] Care Team Providers Name Role Phone Teresita Garcia MD Primary Care Provider Teresita Garcia MD Unavailable Encounter Details Date Type Department Care Team Description 08/14/2021 Medical Correspondence Health [place] Scan, ORDER [facility] Info Mgmt Non-Provider HEALTH/HOSP ICE [facility] [address] [place] [address] Social History Tobacco Use Types [...] do you attend shinto or Not asked catholic services? Do you [...] documented as of this encounter Care Teams Private Banker Relationship Specialty Start Date End Date Teresita Garcia MD PCP - General Family Practice 01/22/11 [address] [place], [place] [id number] Teresita Garcia MD Assigned PCP 11/16/16 12/28/21 [address] [place], [place] [id number] documented as of this encounter
--- OUTSIDE RECORDS SUMMARY | 2022-08-21 16:56 | XMS_ITS | Encounter Summary ---
:1960 Author Organization [place] Address [address] [facility] [place] [address] Care Team Providers Name Role Phone Teresita Garcia MD Primary Care Provider Teresita Garcia MD Unavailable Reason for Visit Reason Onset Date Comments Home Care/Hospice 08/14/2021 Encounter Details Date Type Department Care Team Description 08/14/2021 Telephone [facility] Roel Garcia MD Home Care/Hospice [id number] [place] [phone] Social History Tobacco Use Types Packs/Day Years [...] or relatives? How often do you attend mosque or Not asked latter-day services? Do you belong to any clubs or Not asked organizations such as mosque groups, unions, fraternal or athletic groups, or [...] Encounter - Mary More RN - 08/14/2021 4:10 PM CST Pratibha OT form [facility] calling for orders- OT 2xwk/2wks 1x/wk2wks Verbal order given. Will fax for MD signature. Mary More RN T PROTECTION GREETER documented in this encounter Plan of Treatment Not on filedocumented as of this encounter Visit Diagnoses Not on filedocumented in this encounter Additional Health Concerns Assessment Noted Time PHQ-9 Depression Total Score: 6 04/12/2021 1:59 PM CDT documented as of this encounter Care Teams Ground Source Heat Pump Technician Relationship Specialty Start Date End Date Teresita Garcia MD PCP - General Family Practice 01/22/11 [address] [place] [address] Teresita Garcia MD Assigned PCP 11/16/16 12/28/21 [address] [place], [place] [id number] documented as of this encounter
--- OUTSIDE RECORDS SUMMARY | 2022-08-21 16:56 | XMS_ITS | Encounter Summary ---
:1960 Author Organization [place] Address [facility] [place] [address] Care Team Providers Name Role Phone Teresita Garcia MD Primary Care Provider Teresita Garcia MD Unavailable Reason for Visit Reason Onset Date Comments Forms 08/23/2021 Encounter Details Date Type Department Care Team Description 08/23/2021 Telephone [facility] Roel Garcia MD Forms [place] [id number] [place] [address] [place] [address] [place] [address] [phone] Social History Tobacco Use Types Packs/Day Years [...] or relatives? How often do you attend restorationist or Not asked mosque services? Do you belong to any clubs or Not asked organizations such as restorationist groups, unions, fraternal or athletic groups, or [...] Form completed and faxed, 08/28/2021 Jackie Brito/AWILDA GING COGNITIVE ENGINEER Telephone Encounter - Vance Desai RN - 08/23/2021 1:46 PM CST Received call from [facility] stating some forms were missing from faxed forms 08/15/21. [facility] to re-fax forms to [employer]. Routing to [facility] to review. Vance Person RN GING COGNITIVE ENGINEER documented in this encounter Plan of Treatment Not on filedocumented as of this encounter Visit Diagnoses Not on filedocumented in this encounter Additional Health Concerns Assessment Noted Time PHQ-9 Depression Total Score: 6 04/12/2021 1:59 PM CDT documented as of this encounter Care Teams Type Proof Reproducer Relationship Specialty Start Date End Date Teresita Garcia MD PCP - General Family Practice 01/22/11 [address] [place] [address] Teresita Garcia MD Assigned PCP 11/16/16 12/28/21 [address] [place] [address] documented as of this encounter
--- OUTSIDE RECORDS SUMMARY | 2022-08-21 16:56 | XMS_ITS | Clinical Summary ---
:1960 Author Organization [place] Address [address] [place] [address] Care Team Providers Name Role Phone Teresita Garcia MD Primary Care Provider Audrey Hickman MD Unavailable [phone] Allergies Active Allergy Reactions Severity Noted Date [...] automated process. Provider to review and confirm.) Xbph-Ouptk-Jqoleng disease 05/14/2011 Atopic rhinitis 05/14/2011 Overview: (Problem [...] Virtual Visit Family Practice Sedrick Giron MD No Sh ow 08/13/2022 Refill Family Practice Teresita Garcia MD Medication Refill 07/24/2022 Virtual Visit Family Practice [facility] TMJ (tem poromandibular Audrey Gibbs MD joint syndro ms) (Primary Dx) 07/24/2022 Telephone Family Practice [facility] Nurse Adv ice Line Audrey Gibbs MD from Last 3 Months Immunizations Name Administration Dates Next Due COVID-19 Vaccine (Curly) 01/30/2021 Flu, Unspecified 08/08/2020 Influenza (IIV3) PF 06/13/2012, 07/05/2010 Influenza Vaccine 50-64 or 18-64 06/14/2021, 06/12/2020 w/egg allergy (Flublok) Influenza Vaccine >6 months 07/15/2019, 06/09/2018, 09/25/20 17, (Alfuria,Fluzone) 10/15/2016, 07/27/2016, 06/26/2015 Pneumococcal 23 valent 05/20/2011 TDAP Vaccine (Adacel) [...] do you attend adventism or Not asked zoroastrian services? Do you [...] to pay for the very basics like Elver larson hard 07/05/2020 food, housing, medical care, [...] 04/12/2021 1:53 PM CDT Plan of Treatment Health Maintenance Due Date Last Done Comments [...] this topic Medical Devices Implanted Type Area Respiratory Therapy Assistant Device Shelf Model / Identifier Expiration Serial / Date Lot Left Hip Metallic Left: Replacement Hardware/Anc Hip hor Insurance Payer Benefit Plan / Subscriber ID Effective Phone Address T ype Group Dates MEDICARE MEDICARE [id number] 2018-Prese [phone] ATTN [place]RI[place] Medicare nt 40 [address] [facility] [place] [address] BCBS [place] [id number] 2018-Prese [phone] [address] [address] Indemnity nt 00 [place] [address] Dejuan Rodriguez Personal/Family Self [address] ([address]) [place] [address] Care Teams Pump Machine Operator Relationship Specialty Start Date End Date Teresita Garcia MD PCP - General Family Practice 01/22/11 [address] [place], [place] [id number] Audrey Hickman MD Assigned PCP 12/29/21 [address] [place], [place] [id number]
--- OUTSIDE RECORDS SUMMARY | 2022-08-21 16:56 | XMS_ITS | Encounter Summary ---
:1960 Author Organization [facility] Address [facility] [place] [address] Care Team Providers Name Role Phone Teresita Garcia MD Primary Care Provider Audrey Hickman MD Unavailable [phone] Reason for Visit Reason Comments Medication Refill Encounter Details Date Type Department Care Team Description 05/13/2022 Refill [facility] Roel Garcia MD Medication Refill [id number] [place] [address] [place], [place] [address] [phone] Social History Tobacco Use Types Packs/Day Years [...] do you attend episcopalian or Not asked scientology services? Do you [...] office visit. Cindy Bonilla RN, BSN, PHN [facility] documented in this encounter Plan of Treatment Not on filedocumented as of this encounter Visit Diagnoses Diagnosis Seborrheic dermatitis of scalp Other seborrheic dermatitis documented in this encounter Additional Health Concerns Assessment Noted Time PHQ-9 Depression Total Score: 6 04/12/2021 1:59 PM CDT documented as of this encounter Care Teams Machine Operator Farmworker Relationship Specialty Start Date End Date Teresita Garcia MD PCP - General Family Practice 01/22/11 [address] [place], [place] [phone] Audrey Hickman MD Assigned PCP 12/29/21 [address] [place], [place] [phone] documented as of this encounter
--- OUTSIDE RECORDS SUMMARY | 2022-08-21 16:56 | XMS_ITS | Encounter Summary ---
:1960 Author Organization [place] Address [address] [facility] [place] [address] Care Team Providers Name Role Phone Teresita Garcia MD Primary Care Provider Teresita Garcia MD Unavailable Audrey Hickman MD Unavailable [phone] Reason for Visit Reason Onset Date Comments Call Back 10/01/2021 patient is dealing w josie Franklin in his feet and ankles, had asked about compression so cks if they would be ok for him. Encounter Details Date Type Department Care Team Description 10/01/2021 Telephone [facility] Teresita Garcia MD Call Back (patient is Clinic [place] [id number] [place] [address] [place] [address] [place], [place] his feet and ankles, [place] [address] had asked about [phone] compression socks if [...] do you attend voodoo or Not asked quaker services? Do you [...] 11:02 AM CST Left detailed message on Viyet's ([facility]) machine that DME for compression stockings hasbeen approved and signed. Need to ask what should be done with the DME? Picked up, mailed, faxed? Form is in basket at [place]. Yumiko Camp CMA RVATIONS SALES AGENT Telephone Encounter - Teresita Garcia MD - [...] sign it by another provider p cr. RVATIONS SALES AGENT Telephone Encounter - Kraen Covarrubias RN - 10/02/2021 4:49 PM CST Called [facility] home care nurse, informs: ~not new issue ~now that in chair more lower leg edema worsening ~[facility] [place] ~not regular nurse, covering [...] route to inform Sivakumar Covarrubias RN, BSN [facility] RVATIONS SALES AGENT Telephone Encounter - Teresita Garcia MD - [...] sign it for patient. Teresita Garcia MD [facility] [phone] RVATIONS SALES AGENT Telephone Encounter - Karen Covarrubias RN - 10/02/2021 4:23 PM CST Routed to , see home care note and advise compression socks, please advise, route to inform [facility] funeral home attendant of plan patient is dealing with edema in his feet and ankles, had asked about compression socks if they would be ok for him. Karen Covarrubias RN, BSWilliam [facility] RVATIONS SALES AGENT Telephone Encounter - Hiren Johnson - 10/01/2021 6:06 PM CST Reason for call: Other Patient called regarding (reason for call): call back Additional comments: in regards to compression socks Phone number to reach patient: Other phone number: Sivakumar MONTOYA from [facility] [phone] Best Time: During business hours Can we leave a detailed message on this number? YES Travel screening: Not Applicable RVATIONS SALES AGENT documented in this encounter Plan of Treatment Not on filedocumented as of this encounter Visit Diagnoses Diagnosis Cydt-Hsjmr-Hvqsadc disease - Primary Juvenile osteochondrosis of hip and pelv is documented in this encounter Additional Health Concerns Assessment Noted Time PHQ-9 Depression Total Score: 6 04/12/2021 1:59 PM CDT documented as of this encounter Care Teams Manager Imaging Relationship Specialty Start Date End Date Teresita Garcia MD PCP - General [facility] Practice 01/22/11 [address] [place], [place] [phone] Teresita Garcia MD Assigned PCP 11/16/16 12/28/21 [address] [place], [place] [phone] Audrey Hickman MD Assigned PCP 12/29/21 [address] [place] [address] documented as of this encounter
--- OUTSIDE RECORDS SUMMARY | 2022-08-21 16:56 | XMS_ITS | Encounter Summary ---
:1960 Author Organization [place] Address [address] [facility] [place] [address] Care Team Providers Name Role Phone Teresita Garcia MD Primary Care Provider Audrey Hickman MD Unavailable [phone] Encounter Details Date Type Department Care Team Description 02/04/2022 Telephone [facility] Roel Garcia MD [address] [address] [place] [address] [phone] Social History Tobacco Use Types Packs/Day Years [...] do you attend amish or Not asked confucianist services? Do you [...] 02/04/2022 3:23 PM CDT Fax received from [facility] for plan of care . This will be placed in PCP in box . Sophie Swain Assurance Associate documented in this encounter Plan of Treatment Not on filedocumented as of this encounter Visit Diagnoses Not on filedocumented in this encounter Additional Health Concerns Assessment Noted Time PHQ-9 Depression Total Score: 6 04/12/2021 1:59 PM CDT documented as of this encounter Care Teams Sample Checker Relationship Specialty Start Date End Date Teresita Garcia MD PCP - General Family Practice 01/22/11 [address] [place] [address] Audrey Hickman MD Assigned PCP 12/29/21 [address] [place] [address] documented as of this encounter
--- OUTSIDE RECORDS SUMMARY | 2022-08-21 16:56 | XMS_ITS | Encounter Summary ---
:1960 Author Organization [employer] [place] Address [address] [facility] [place] [address] Care Team Providers Name Role Phone Teresita Garcia MD Primary Care Provider Teresita Garcia MD Unavailable Reason for Visit Reason Onset Date Comments Forms 12/05/2021 Plan of Care Encounter Details Date Type Department Care Team Description 12/05/2021 Telephone [facility] Roel Garcia MD Forms (Plan of Care) [id number] [place] [phone] [phone] Social History Tobacco Use Types Packs/Day Years [...] do you attend christianity or Not asked episcopalian services? Do you [...] Form completed and faxed, 12/05/2021 Jackie Brito/AWILDA HER GRAINER Telephone Encounter - Rosy Brito - 12/05/2021 10:19 AM CST Received 7 page fax for Plan of Care for Dr Garcia to complete. Form in the in- basket at AA's desk. HER GRAINER documented in this encounter Plan of Treatment Not on filedocumented as of this encounter Visit Diagnoses Not on filedocumented in this encounter Additional Health Concerns Assessment Noted Time PHQ-9 Depression Total Score: 6 04/12/2021 1:59 PM CDT documented as of this encounter Care Teams Tax Lawyer Relationship Specialty Start Date End Date Teresita Garcia MD PCP - General Family Practice 01/22/11 [address] [place] [address] Teresita Garcia MD Assigned PCP 11/16/16 12/28/21 [address] [place] [address] documented as of this encounter
--- OUTSIDE RECORDS SUMMARY | 2022-08-21 16:56 | XMS_ITS | Encounter Summary ---
:1960 Author Organization [place] Address [facility] [place] [address] Care Team Providers Name Role Phone Teresita Garcia MD Primary Care Provider Teresita Garcia MD Unavailable Reason for Visit Reason Comments Medication Refill Encounter Details Date Type Department Care Team Description 10/19/2021 Refill [facility] Roel Garcia MD Medication Refill [address] [address] [place], [place] [phone] [place] [address] [phone] Social History Tobacco Use Types Packs/Day Years [...] or relatives? How often do you attend methodist or Not asked yazidism services? Do you belong to any clubs or Not asked organizations such as methodist groups, unions, fraternal or athletic groups, or [...] add to yesterday's RX. Mary More RN NCIAL MANAGEMENT ANALYST Telephone Encounter - Teresita Garcia MD - 10/22/2021 3:20 PM CST Pt has MS and it is very hard for him to come in for labs. His last creatinine was done on 07/26/2021 and was normal. Please give 1 year supply. NCIAL MANAGEMENT ANALYST Telephone Encounter - Lianet Correa RN - 10/22/2021 1:19 PM CST Routing refill request to provider for review/approval because: Labs not current: Cr Visit is up to date, RN will issue 90 day aimee. Please advise on labs. Lianet Correa RN [facility] -- Triage Nurse NCIAL MANAGEMENT ANALYST documented in this encounter Plan of Treatment Not on filedocumented as of this encounter Visit Diagnoses Diagnosis Osteoporosis, unspecified osteoporosis t ype, unspecified pathological fracture presence documented in this encounter Additional Health Concerns Assessment Noted Time PHQ-9 Depression Total Score: 6 04/12/2021 1:59 PM CDT documented as of this encounter Care Teams Maintenance Operator Relationship Specialty Start Date End Date Teresita Garcia MD PCP - General Family Practice 01/22/11 [address] [place] [address] Teresita Garcia MD Assigned PCP 11/16/16 12/28/21 [address] [place] [address] documented as of this encounter
--- OUTSIDE RECORDS SUMMARY | 2022-08-21 16:56 | XMS_ITS | Encounter Summary ---
:1960 Author Organization [facility] Address [address] [facility] [place] [address] Care Team Providers Name Role Phone Teresita Garcia MD Primary Care Provider Audrey Hickman MD Unavailable Reason for Visit Reason Onset Date Comments Results 01/06/2022 Urine Culture Encounter Details Date Type Department Care Team Description 01/06/2022 Telephone [facility] Katharina Leija Resul ts (Urine Culture) [facility] Emergency Dep t RN [address] [place] [address] Social History Tobacco Use Types Packs/Day Years [...] do you attend voodoo or Not asked pentecostalism services? Do you belong to any clubs [...] Leija RN - 01/06/2022 1:18 PM CDT [facility] () Emergency Department Lab result notification [Adult-Male] [facility] ED lab result protocol used Urine Culture Reason for call Notify of lab results, assess symptoms, review ED providers recommendations/discharge instructions (if necessary) and advise per ED lab result f/u protocol Lab Result (including Rx patient on, if applicable) Final Urine Culture Report on 01/06/22. [facility] Emergency Dept discharge antibiotic prescribed: Ciprofloxacin (Cipro) 500 mg tablet, 1 tablet (500 mg) by mouth 2 times daily for 7 days. Bacteria #1: >100,000 colonies/mL Pseudomonas aeruginosa is [RESISTANT] to antibiotic Bacteria #2: >100,000 colonies/mL Enterococcus faecalis is [NOT TESTED] to antibiotic Recommendations in treatment per [facility] ED Lab result protocol. Information table from [...] encounter (H) ED provider Johana Urena MD final block press operator (Patient???s current Symptoms), include time called. 1:47P - when asked patient states he feels Not so great I guess could be better - reporting 'just fatigue' Genitourinary symptoms: NO - just a lot of sediment this is often baseline per ED report Fever: NO Flank pain: NO Rivera Catheter: YES - functioning well Urologist: MD Sinan - [facility] Fax #: [phone] Attention: RODRIGO Church RN Recommendations/Instructions per [facility] ED lab result protocol 2:00 - patient [...] follow-up Questions asked: YES Katharina Leija RN [facility] Emergency Dept Lab Result RN # [phone] Copy of Lab result Urine Culture Order: [id number] - Reflex for Order [id number] Status: Final result ?? Visible to patient: [...] documented as of this encounter Care Teams Calender Inspector Relationship Specialty Start Date End Date Teresita Garcia MD PCP - General Family Practice 01/22/11 [address] [place], [place] [id number] Audrey Hickman MD Assigned PCP 12/29/21 [address] [place], [place] [id number] documented as of this encounter
--- OUTSIDE RECORDS SUMMARY | 2022-08-21 16:56 | XMS_ITS | Encounter Summary ---
:1960 Author Organization [place] Address [address] [place] [address] Care Team Providers Name Role Phone Teresita Garcia MD Primary Care Provider Teresita Garcia MD Unavailable Encounter Details Date Type Department Care Team Description 10/01/2021 Telephone [facility] Roel Garcia MD [place] [address] [phone] Social History Tobacco Use Types Packs/Day Years [...] do you attend episcopalian or Not asked confucianist services? Do you [...] 10/01/2021 5:17 PM CST [place] PT from [facility] calling from [phone]. Requesting orders for lymphedema assessment. They will be faxing orders as well. Zuleyma Fierro RN on 10/01/2021 at 5:18 PM REL TRIMMINGS SALES REPRESENTATIVE documented in this encounter Plan of Treatment Not on filedocumented as of this encounter Visit Diagnoses Not on filedocumented in this encounter Additional Health Concerns Assessment Noted Time PHQ-9 Depression Total Score: 6 04/12/2021 1:59 PM CDT documented as of this encounter Care Teams Stores Despatch Hand Relationship Specialty Start Date End Date Teresita Garcia MD PCP - General Family Practice 01/22/11 [address] [place], [place] [phone] Teresita Garcia MD Assigned PCP 11/16/16 12/28/21 [address] [place] [address] documented as of this encounter
--- OUTSIDE RECORDS SUMMARY | 2022-08-21 16:56 | XMS_ITS | Encounter Summary ---
:1960 Author Organization [place] Address [address] [facility] [place] [address] Care Team Providers Name Role Phone Teresita Garcia MD Primary Care Provider Audrey Hickman MD Unavailable [phone] Reason for Visit Reason Onset Date Comments UTI 01/07/2022 Encounter Details Date Type Department Care Team Description 01/07/2022 Telephone [facility] Roel Garcia MD UTI [place] [id number] [place] [address] [place], [place] [address] [place] [address] 55 [phone] Social History Tobacco Use Types Packs/Day Years [...] do you attend islam or Not asked methodist services? Do you [...] documented as of this encounter Care Teams Vp Biology Relationship Specialty Start Date End Date Teresita Garcia MD PCP - General Family Practice 01/22/11 [address] [place] [address] Audrey Hickman MD Assigned PCP 12/29/21 [address] [place] [address] documented as of this encounter
--- OUTSIDE RECORDS SUMMARY | 2022-08-21 16:56 | XMS_ITS | Encounter Summary ---
:1960 Author Organization [place] Address [address] [facility] [place] [address] Care Team Providers Name Role Phone Teresita Garcia MD Primary Care Provider Teresita Garcia MD Unavailable Reason for Visit Reason Onset Date Comments Home Care/Hospice 08/09/2021 PT and OT Encounter Details Date Type Department Care Team Description 08/09/2021 Telephone [facility] Teresita Garcia MD Home Care/Hospice ([facility] [place] [id number] [place] [address] and OT) [address] [place] [phone] Social History Tobacco Use Types [...] do you attend episcopal or Not asked cheondoism services? Do you [...] CST Homecare Orders Requested: Zoie at from [facility] called to request orders for the following Services: Physical Therapy for:eval and treat and Occupational Therapy for:eval and treat Informs pt getting weaker and needs more assistance with transfers, would like Pt and OT added Verbal order provided, FYI to Homecare agency to fax orders over for review and signature of PCP. Karen Covarrubias RN SORTER documented in this encounter Plan of Treatment Not on filedocumented as of this encounter Visit Diagnoses Not on filedocumented in this encounter Additional Health Concerns Assessment Noted Time PHQ-9 Depression Total Score: 6 04/12/2021 1:59 PM CDT documented as of this encounter Care Teams Pot Maker Relationship Specialty Start Date End Date Teresita Garcia MD PCP - General Family Practice 01/22/11 [address] [place] [address] Teresita Garcia MD Assigned PCP 11/16/16 12/28/21 [address] [place] [address] documented as of this encounter
--- OUTSIDE RECORDS SUMMARY | 2022-08-21 16:56 | XMS_ITS | Encounter Summary ---
:1960 Author Organization [place] Address [address] [place] [address] Care Team Providers Name Role Phone Teresita Garcia MD Primary Care Provider Audrey Hickman MD Unavailable [phone] Reason for Visit Reason Onset Date Comments Nurse Advice Line 07/24/2022 Encounter Details Date Type Department Care Team Description 07/24/2022 Telephone [facility] Audrey Hickman Nurse Advice [place] [address] [address] [phone] (Wo rk) Social History Tobacco Use Types [...] do you attend voodoo or Not asked catholic services? Do you [...] 07/24/2022 10:47 AM CDT Called pt per [facility], has appointment today for jaw pain and [...] ordered A-(assessment): jaw pain R-(recommendations): routed to [facility], pt looking for possibility of jaw massage at home, now pain keeps him up at night and interferes with daily routines and needs to do something, pt wonders about TMJ referral and if they do virtual visits due to his condition, was hoping to sort things out at virtualvisit today Routed to [facility] Karen Covarrubias RN, BSN [facility] documented in this encounter Plan of Treatment Not on filedocumented as of this encounter Visit Diagnoses Not on filedocumented in this encounter Additional Health Concerns Assessment Noted Time PHQ-9 Depression Total Score: 6 04/12/2021 1:59 PM CDT documented as of this encounter Care Teams Pull Over Machine Operator Relationship Specialty Start Date End Date Teresita Garcia MD PCP - General Family Practice 01/22/11 [address] [place], [place] [phone] Audrey Hickman MD Assigned PCP 12/29/21 [address] [place] [address] documented as of this encounter
--- OUTSIDE RECORDS SUMMARY | 2022-08-21 16:56 | XMS_ITS | Encounter Summary ---
:1960 Author Organization [place] Address [address] [facility] [place] [address] Care Team Providers Name Role Phone Teresita Garcia MD Primary Care Provider Teresita Garcia MD Unavailable Reason for Visit Reason Onset Date Comments Orders 08/15/2021 [facility] Encounter Details Date Type Department Care Team Description 08/15/2021 Telephone [facility] Teresita Garcia MD Orders ([facility] [place] [address] [place] [address]) [address] [place] [phone] Social History Tobacco Use Types [...] do you attend anabaptism or Not asked jain services? Do you [...] PM CST Form completed and faxed, 08/15/2021 Jackie Brito/TC OW WORKER Telephone Encounter - Rosy Brito - 08/15/2021 1:45 PM CST Form placed at AA's desk, 08/15/2021 Jackie Brito/TC OW WORKER Telephone Encounter - Malka Pang - 08/15/2021 12:59 PM CST Reason for Call: Request for an order or referral: Order or referral being requested: Signature needed Date needed: as soon as possible Has the patient been seen by the PCP for this problem? YES Additional comments: Signature needed for other orders being faxed by [facility] for ongoing SN visit for ongoing care and TRANSIT CLERK visit for shower visits . Phone number Patient can be reached at: Other phone number: juanita [phone] Best Time: any Can we leave a detailed message on this number? YES Call taken on 08/15/2021 at 1:00 PM by Malka Pang Sig needed for other order ok for ongoing SN visit for ongoing care and TRANSIT CLERK visit for shower visits . [phone] OW WORKER documented in this encounter Plan of Treatment Not on filedocumented as of this encounter Visit Diagnoses Not on filedocumented in this encounter Additional Health Concerns Assessment Noted Time PHQ-9 Depression Total Score: 6 04/12/2021 1:59 PM CDT documented as of this encounter Care Teams Golf Cart Attendant Relationship Specialty Start Date End Date Teresita Garcia MD PCP - General Family Practice 01/22/11 [address] [place] [address] Teresita Garcia MD Assigned PCP 11/16/16 12/28/21 [address] [facility] [address] documented as of this encounter
--- OUTSIDE RECORDS SUMMARY | 2022-08-21 16:56 | XMS_ITS | Encounter Summary ---
:1960 Author Organization [place] Address [address] [facility] [place] [address] Care Team Providers Name Role Phone Teresita Garcia MD Primary Care Provider Teresita Garcia MD Unavailable Reason for Visit Reason Onset Date Comments Home Care/Hospice 08/14/2021 Encounter Details Date Type Department Care Team Description 08/14/2021 Telephone [facility] Roel Garcia MD Home Care/Hospice [address] [place] [phone] Social History Tobacco Use Types Packs/Day Years [...] do you attend nondenominational or Not asked zoroastrianism services? Do you [...] fax for MD signature. Mary More RN D MGR documented in this encounter Plan of Treatment Not on filedocumented as of this encounter Visit Diagnoses Not on filedocumented in this encounter Additional Health Concerns Assessment Noted Time PHQ-9 Depression Total Score: 6 04/12/2021 1:59 PM CDT documented as of this encounter Care Teams Chief Telephone Operator Relationship Specialty Start Date End Date Teresita Garcia MD PCP - General Family Practice 01/22/11 [address] [place], [place] [phone] Teresita Garcia MD Assigned PCP 11/16/16 12/28/21 [address] [place], [place] [id number] documented as of this encounter
--- OUTSIDE RECORDS SUMMARY | 2022-08-21 16:56 | XMS_ITS | Encounter Summary ---
:1960 Author Organization [place] Address [address] [facility] [place] [address] Care Team Providers Name Role Phone Teresita Garcia MD Primary Care Provider Teresita Garcia MD Unavailable Reason for Visit Reason Onset Date Comments [facility] 10/07/2021 Encounter Details Date Type Department Care Team Description 10/07/2021 Telephone [facility] Teresita Garcia MD [facility] [address] [place] [phone] Social History Tobacco Use Types Packs/Day [...] do you attend restorationist or Not asked rastafari services? Do you belong to any clubs [...] 10/08/2021 2:55 PM CST DME faxed to [facility] in [place]. Yumiko Camp CMA WOOD CUTTER Telephone Encounter - Coty Fleming RN - 10/07/2021 5:07 PM CST Routing to to inform. NORM Campos, RN [facility] WOOD CUTTER Telephone Encounter - Mi Crowe RN - 10/07/2021 4:39 PM CST Priority nurse call received from JAN Clark with [facility]: 1. Returning call about compression stockings for patient 2. Will be out to see patient on 10/08/21 and will take measurements, then call PCP clinic to relay those measurements 3. DME order can be sent to whichever medical supply store [facility] uses Informed Eduardo a message will be sent to patient's PCP care team at [facility]. Eduardo verbalized understanding and in agreement with plan. Eduardo stated his voicemail is confidential. Thank you! NORM Escobedo, RN [facility] WOOD CUTTER documented in this encounter Plan of Treatment Not on filedocumented as of this encounter Visit Diagnoses Not on filedocumented in this encounter Additional Health Concerns Assessment Noted Time PHQ-9 Depression Total Score: 6 04/12/2021 1:59 PM CDT documented as of this encounter Care Teams Territory Development Manager Relationship Specialty Start Date End Date Teresita Garcia MD PCP - General Family Practice 01/22/11 [address] [place] [address] Teresita Garcia MD Assigned PCP 11/16/16 12/28/21 [address] [place] [address] documented as of this encounter
--- OUTSIDE RECORDS SUMMARY | 2022-08-21 16:56 | XMS_ITS | Encounter Summary ---
:1960 Author Organization [place] Address [facility] [place] [address] Care Team Providers Name Role Phone Teresita Garcia MD Primary Care Provider Audrey Hickman MD Unavailable [phone] Reason for Visit Reason Comments Medication Refill Encounter Details Date Type Department Care Team Description 08/13/2022 Refill [facility] Roel Garcia MD Medication Refill [address] [place] [address] [place], [place] [address] [phone] Social History Tobacco Use Types Packs/Day Years [...] do you attend buddhism or Not asked taoism services? Do you belong to any clubs [...] this encounter Miscellaneous Notes Telephone Encounter - Marjorie Laird RN - 08/19/2022 11:28 AM CST Per Audrey Hickman MD: Patient seen recently virtually for presumed TMJ. I would recommend establishing care with providerteam that comes to his residence to avoid fragmented care as unable to come in. Left message on machine to call back any triage nurse to relay message. Marjorie Laird RN CING SPECIALIST Telephone Encounter - Teresita Garcia MD - 08/13/2022 4:46 PM CST Audrey, I wonder if you're seeing the patient from now on. CING SPECIALIST Telephone Encounter - Blanca Choi RN - 08/13/2022 4:02 PM CST Routing refill request to provider for review/approval because: Dexa on file within past 2 years Normal serum creatinine on file within past 12 months Creatinine Date Value Ref Range Status 11/25/2019 0.95 0.72 - 1.25 mg/dL Final Last Dexa 04/04/2020 Blanca Choi Registered Nurse [facility] CING SPECIALIST documented in this encounter Plan of Treatment Not on filedocumented as of this encounter Visit Diagnoses Diagnosis Osteoporosis, unspecified osteoporosis t ype, unspecified pathological fracture presence documented in this encounter Additional Health Concerns Assessment Noted Time PHQ-9 Depression Total Score: 6 04/12/2021 1:59 PM CDT documented as of this encounter Care Teams Knifeman Relationship Specialty Start Date End Date Teresita Garcia MD PCP - General Family Practice 01/22/11 [address] [place] [address] Audrey Hickman MD Assigned PCP 12/29/21 [address] [place] [address] documented as of this encounter
--- OUTSIDE RECORDS SUMMARY | 2022-08-21 16:56 | XMS_ITS | Encounter Summary ---
:1960 Author Organization [place] Address [address] [facility] [place] [address] Care Team Providers Name Role Phone Teresita Garcia MD Primary Care Provider Audrey Hickman MD Unavailable [phone] Reason for Visit Reason Comments Catheter Problem Encounter Details Date Type Department Care Team Description 01/02/2022 Emergency [facility] Johana Urena Ac sridevi cystitis without hematuria; [facility] Emergency Dep t Obstruction of Rivera catheter, initial e ncounter (H) [address] [facility] [place] [address] [address] [facility] [phone] [place], [place] [address] (Wo rk) Social History [...] do you attend quaker or Not asked rastafari services? 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 Johana Urena MD 01/02/22 3239 Johana Urena MD 01/02/22 0506 documented in this encounter Plan of Treatment Not on filedocumented as of this encounter Procedures Procedure Name [...] (ABNORMAL) Urine Culture (01/02/2022 2:46 PM CDT) [facility] gist Method Time Signature Culture >100,000 CFU/mL TAHIR [...] Susceptibility testing requeste d by Donte Leija [phone] for Cipto on E. Faecalis 01.06.2022 @ [address] [place] [address] Johana Urena MD LAB - MICRO GENERAL ORDERABL ES Performing Organization Address City/State/ZIP Code Phon e Number [facility] [place] [phone] Diag. Lab [address] [facility], Room [address]297 (ABNORMAL) UA with Microscopic reflex to Culture (01/02/2022 2:46 PM CDT) [facility] Method Time Signature Color Urine Yellow Colorless, 01/02/2022 LABORATORY Straw, 3:25 PM CDT Light Yellow, Yellow Appearance Urine Slightly Clear 01/02/2022 RH LABORATOR Y Cloudy (A) 3:25 PM CDT Glucose Urine Negative Negative 01/02/2022 LABORATORY mg/dL 3:25 PM CDT Bilirubin Urine Negative Negative 01/02/2022 LABORATORY 3:25 PM CDT Ketones Urine Negative Negative 01/02/2022 LABORATORY mg/dL 3:25 PM CDT Specific Turrell 1.010 1.003 - 01/02/2022 LABORATOR Y Urine [...] Mucus Urine Present (A) None Seen 01/02/2022 LABORATORY /LPF 3:25 PM CDT Amorphous Moderate [...] Address City/State/ZIP Code [place] [phone] Care Lab [address] [facility] Lab (1st floor, no room number) documented [...] as of this encounter Care Teams Vault Attendant Relationship Specialty Start Date End Date Teresita Garcia MD PCP - General Family Practice 01/22/11 [address] [place], [place] [phone] Audrey Hickman MD Assigned PCP 12/29/21 [address] [place], [place] [id number] documented as of this encounter
--- OUTSIDE RECORDS SUMMARY | 2022-08-21 16:56 | XMS_ITS | Encounter Summary ---
:1960 Author Organization [place] Address [address] [facility] [place] [address] Care Team Providers Name Role Phone Teresita Garcia MD Primary Care Provider Teresita Garcia MD Unavailable Reason for Visit Reason Onset Date Comments Home Care/Hospice 07/23/2021 UA Encounter Details Date Type Department Care Team Description 07/23/2021 Telephone [facility] Teresita Garcia MD Home Care/Hospice (UA) Clinic [address] [place] [address] [phone] Social History Tobacco Use Types Packs/Day [...] do you attend zoroastrianism or Not asked judaism services? Do you [...] Homecare Orders Requested: Zoie MONTOYA at from [facility] Agency called to request orders for the [...] as of this encounter Care Teams Maintenance Supervisor 2Nd Shift Relationship Specialty Start Date End Date Teresita Garcia MD PCP - General Family Practice 01/22/11 [address] [place] [address] Teresita Garcia MD Assigned PCP 11/16/16 12/28/21 [address] [place] [address] documented as of this encounter
--- OUTSIDE RECORDS SUMMARY | 2022-08-21 16:56 | XMS_ITS | Encounter Summary ---
:1960 Author Organization [place] Address [address] [facility] [place] [address] Care Team Providers Name Role Phone Teresita Garcia MD Primary Care Provider Teresita Garcia MD Unavailable Reason for Visit Reason Onset Date Comments Forms 08/14/2021 Physician Orders Encounter Details Date Type Department Care Team Description 08/14/[address] [facility] Teresita Garcia MD Forms (Physician Clinic [place] [address] [place] [address] Orders) [address] [place], [place] [phone] Social History Tobacco Use Types Packs/Day [...] do you attend orthodoxy or Not asked rastafarian services? Do you [...] Form completed and faxed, 08/14/2021 Jackie Brito/AWILDA ICUT LINE OPERATOR Telephone Encounter - Rosy Brito - 08/14/2021 10:32 AM CST Received 3 page fax for Physician Orders for Dr Garcia to complete. Form in the in-basket at AA's desk. ICUT LINE OPERATOR documented in this encounter Plan of Treatment Not on filedocumented as of this encounter Visit Diagnoses Not on filedocumented in this encounter Additional Health Concerns Assessment Noted Time PHQ-9 Depression Total Score: 6 04/12/2021 1:59 PM CDT documented as of this encounter Care Teams Counter Caser Relationship Specialty Start Date End Date Teresita Garcia MD PCP - General Family Practice 01/22/11 [address] [place] [address] Teresita Garcia MD Assigned PCP 11/16/16 12/28/21 [address] [place] [address] documented as of this encounter
--- OUTSIDE RECORDS SUMMARY | 2022-08-21 16:56 | XMS_ITS | Encounter Summary ---
:1960 Author Organization [place] Address [address] [place] [address] Care Team Providers Name Role Phone Teresita Garcia MD Primary Care Provider Audrey Hickman MD Unavailable [phone] Reason for Referral Home Health Therapies & Aides (Routine: Next available opening) - Referral NOT Required Specialty Diagnoses / Procedures Referred By Contact Refer red To Contact Diagnoses TMJ (temporomandibular joint syndrome) Audrey Hickman [facility] MD [facility] [address] [phone] Referral ID Status Reason Start Date Expiration Date Visits V isits Requested Authorized [id number] Referral NOT 07/24/2022 07/24/2023 1 1 Required Reason for Visit Reason Comments Jaw Pain right Encounter Details Date Type Department Care Team Description 07/24/2022 Virtual Visit [facility] TMJ (temporomandibular Clinic [place] Audrey Gibbs MD joint syndrome) [address] [place] [address] (Primary Dx) [place] [address] [phone] Social History Tobacco Use Types Packs/Day Years [...] do you attend jewish or Not asked lutheran services? Do you [...] be sent through Care Everywhere. Syndrome, TMJ (Ghanaian)documented in this encounter Progress Notes Audrey Hickman MD - 07/24/2022 4:00 PM CDT Dejuan is a 61 year old who is being evaluated via a billable video visit. How would you like to obtain your AVS? MyChart If the video visit is dropped, the invitation should be resent by: Text to cell phone: [phone] Will anyone else be joining your video [...] No follow-ups on file. Audrey Hickman MD [facility] Subjective Dejuan is a 61 year old, presenting for the following health issues: Jaw Pain (right) HPI Concern - right jaw pain Onset: about 10 years ago Description: sharp pain on the right jaw Intensity: severe Progression of Symptoms: same and intermittent Accompanying Signs & Symptoms: none Therapies tried and outcome: Physical therapy Per patient he was seen at [facility] and was diagnosed [...] location): On-site Platform used for Video Visit: Estevan documented in this encounter Plan of Treatment Scheduled Referrals Name Type Priority Associated Diagnoses Order [facility] Home Care Referral Referral Routine: Next TMJ Ordered: available opening (temporomandibular 06/29 joint syndrome) documented as of this encounter Visit Diagnoses Diagnosis TMJ (temporomandibular joint syndrome) - Primary Temporomandibular joint disorders, unspe cified documented in this encounter Additional Health Concerns Assessment Noted Time PHQ-9 Depression Total Score: 6 04/12/2021 1:59 PM CDT documented as of this encounter Care Teams Senior Manager Quality Assurance Relationship Specialty Start Date End Date Teresita Garcia MD PCP - General Family Practice 01/22/11 [address] [place], [place] [phone] Audrey Hickman MD Assigned PCP 12/29/21 [address] [facility], [place] [id number] documented as of this encounter
--- OUTSIDE RECORDS SUMMARY | 2022-08-21 16:56 | XMS_ITS | Encounter Summary ---
:1960 Author Organization [place] Address [address] [facility] [place] [address] Care Team Providers Name Role Phone Teresita Garcia MD Primary Care Provider Audrey Hickman MD Unavailable [phone] Reason for Visit Reason Comments Erroneous encounter-disregard Encounter Details Date Type Department Care Team Description 08/18/2022 Virtual Visit [facility] Sedrick Giron MD No Show [place] [id number] [place] [address] [place], [place] [phone] (Wo rk) Social History Tobacco [...] do you attend gnosticist or Not asked yarsani services? Do you [...] documented as of this encounter Care Teams Exchange Mechanic Relationship Specialty Start Date End Date Teresita Garcia MD PCP - General Family Practice 01/22/11 [address] [place], [place] [phone] Audrey Hickman MD Assigned PCP 12/29/21 [address] [place] [address] documented as of this encounter
--- OUTSIDE RECORDS SUMMARY | 2022-08-21 16:57 | XMS_ITS | Encounter Summary ---
:1960 Author Organization [place] Address [address] [facility] [place] [address] Care Team Providers Name Role Phone Teresita Garcia MD Primary Care Provider Teresita Garcia MD Unavailable Reason for Visit Reason Onset Date Comments Forms 11/21/2020 Physician Order Encounter Details Date Type Department Care Team Description 11/21/2020 Telephone [facility] Teresita Garcia MD Forms (Physician Order) Clinic [address] [place] [address] [phone] Social History Tobacco Use Types Packs/Day [...] do you attend evangelical or Not asked roman catholic services? Do [...] Form completed and faxed, 11/27/2020 Jackie Brito/AWILDA HER OPERATOR Telephone Encounter - Rosy Brito - 11/21/2020 11:58 AM CST Received 2 page fax for Physician Order for Dr Garcia to complete. Form in the in- basket at [facility] in AA's folder. HER OPERATOR documented in this encounter Plan of Treatment Not on filedocumented as of this encounter Visit Diagnoses Not on filedocumented in this encounter Additional Health Concerns Assessment Noted Time PHQ-9 Depression Total Score: 8 06/26/2020 12:57 PM CD T documented as of this encounter Care Teams Land Appraiser Relationship Specialty Start Date End Date Teresita Garcia MD PCP - General Family Practice 01/22/11 [address] [place] [address] Teresita Garcia MD Assigned PCP 11/16/16 12/28/21 [address] [place] [address] documented as of this encounter
--- OUTSIDE RECORDS SUMMARY | 2022-08-21 16:57 | XMS_ITS | Encounter Summary ---
:1960 Author Organization [place] Address [facility] [place] [address] Care Team Providers Name Role Phone Teresita Garcia MD Primary Care Provider Teresita aGrcia MD Unavailable Reason for Visit Reason Onset Date Comments Forms 10/01/2020 Plan of Care Encounter Details Date Type Department Care Team Description 10/01/2020 Telephone [facility] Roel Garcia MD Forms (Plan of Care) [phone] [place] [phone] Social History Tobacco Use Types Packs/Day Years [...] you attend latter day or Not asked latter day services? Do [...] Form completed and faxed, 10/02/2020 Jackie Brito/AWILDA AURANT AREA MANAGER Telephone Encounter - Rosy Brito - 10/01/2020 9:58 AM CST Received 6 page fax for Plan of Care for Dr Garcia to complete. Form in the in- basket at [facility] in 's folder. AURANT AREA MANAGER documented in this encounter Plan of Treatment Not on filedocumented as of this encounter Visit Diagnoses Not on filedocumented in this encounter Additional Health Concerns Assessment Noted Time PHQ-9 Depression Total Score: 8 06/26/2020 12:57 PM CD T documented as of this encounter Care Teams Chemical Engineering Teacher Relationship Specialty Start Date End Date Teresita Garcia MD PCP - General Family Practice 01/22/11 [address] [place] [address] Teresita Garcia MD Assigned PCP 11/16/16 12/28/21 [address] [place] [address] documented as of this encounter
--- OUTSIDE RECORDS SUMMARY | 2022-08-21 16:57 | XMS_ITS | Encounter Summary ---
:1960 Author Organization [place] Address [address] [place] [address] Care Team Providers Name Role Phone Teresita Garcia MD Primary Care Provider Teresita Garcia MD Unavailable Encounter Details Date Type Department Care Team Description 06/02/2021 Medical Correspondence [facility] Scan, SKIN MANAGEMENT Health Info Mgmt Non-Provider ORDER [facility] AND [address] [place] [phone] Social History Tobacco Use Types Packs/Day [...] do you attend restorationism or Not asked yazidism services? Do you [...] documented as of this encounter Care Teams Company Miner Blasting Relationship Specialty Start Date End Date Teresita Garcia MD PCP - General Family Practice 01/22/11 [address] [place], [place] [phone] Teresita Garcia MD Assigned PCP 11/16/16 12/28/21 [address] [place] [address] documented as of this encounter
--- OUTSIDE RECORDS SUMMARY | 2022-08-21 16:57 | XMS_ITS | Encounter Summary ---
:1960 Author Organization [place] Address [address] [facility] [place] [address] Care Team Providers Name Role Phone Teresita Garcia MD Primary Care Provider Teresita Garcia MD Unavailable Reason for Visit Reason Onset Date Comments Medication Request 04/16/2021 ketoconazole (NIZORA L) 2 % external shampoo Encounter Details Date Type Department Care Team Description 04/16/2021 Telephone [facility] Teresita Garcia MD Medication Request Clinic [address] (ketoconazole (NIZORAL) [address] [place] [address] 2 % external shampoo) [place], [place] [phone] Social History Tobacco Use Types Packs/Day [...] you attend roman catholic or Not asked mandaen services? Do you belong to any clubs [...] documented as of this encounter Care Teams Car Builder Relationship Specialty Start Date End Date Teresita Garcia MD PCP - General Family Practice 01/22/11 [address] [place], [place] [phone] Teresita Garcia MD Assigned PCP 11/16/16 12/28/21 [address] [place] [address] documented as of this encounter
--- OUTSIDE RECORDS SUMMARY | 2022-08-21 16:57 | XMS_ITS | Encounter Summary ---
:1960 Author Organization [place] Address [address] [facility] [place] [address] Care Team Providers Name Role Phone Teresita Garcia MD Primary Care Provider Teresita Garcia MD Unavailable Encounter Details Date Type Department Care Team Description 05/28/2021 Medical Correspondence [facility] Scan, OASIS TRANSFER Health Info Mgmt Non-Provider [facility] HE[facility]HOSPICE [address] [place] [address] Social History Tobacco Use Types [...] do you attend islam or Not asked yazidism services? Do you [...] documented as of this encounter Care Teams Cyber Threat Analyst Relationship Specialty Start Date End Date Teresita Garcia MD PCP - General Family Practice 01/22/11 [address] [place], [place] [phone] Teresita Garcia MD Assigned PCP 11/16/16 12/28/21 [address] [place] [address] documented as of this encounter
--- OUTSIDE RECORDS SUMMARY | 2022-08-21 16:57 | XMS_ITS | Encounter Summary ---
:1960 Author Organization [place] Address [address] [facility] [place] [address] Care Team Providers Name Role Phone Teresita Garcia MD Primary Care Provider Teresita Garcia MD Unavailable Reason for Visit Reason Comments Patient/info Update SB # Encounter Details Date Type Department Care Team Description 12/21/2020 Documentation Only [facility] Della Choi ent/info Update Clinic [place] JAN Rios (SB # ) [id number] [phone] [place], [place] (Work) [phone] Social History Tobacco Use [...] do you attend gnosticism or Not asked methodist services? Do you [...] changed to SB #2 per pcp Blanca Choi Registered Nurse, PAL (Patient Advocate Liason) [facility] [phone] documented in this encounter Plan of Treatment Not on filedocumented as of this encounter Visit Diagnoses Not on filedocumented in this encounter Additional Health Concerns Assessment Noted Time PHQ-9 Depression Total Score: 8 06/26/2020 12:57 PM CD T documented as of this encounter Care Teams Acute Care Physician Relationship Specialty Start Date End Date Teresita Garcia MD PCP - General Family Practice 01/22/11 [address] [place], [place] [phone] Teresita Garcia MD Assigned PCP 11/16/16 12/28/21 [address] [place], [place] [phone] documented as of this encounter
--- OUTSIDE RECORDS SUMMARY | 2022-08-21 16:57 | XMS_ITS | Encounter Summary ---
:1960 Author Organization [place] Address [address] [facility] [place] [address] Care Team Providers Name Role Phone Teresita Garcia MD Primary Care Provider Teresita Garcia MD Unavailable Reason for Visit Reason Comments Physical Encounter Details Date Type Department Care Team Description 06/14/2021 Office Visit [facility], Routine general medical examination at a health care facility (Primary Dx); Clinic [place] Audrey Gibbs MD Neurogenic bladder; [address] [facility] [id number] [place] [address] MS (multiple sclerosis) (H); [place], [place] Aníbal swanson lower extremity edema; [phone] Need for vaccination [phone] Social History Tobacco Use Types Packs/Day Years [...] or relatives? How often do you attend mandaen or Not asked mandaeism services? Do you belong to any clubs or Not asked organizations such as mandaen groups, unions, fraternal or athletic groups, or [...] moving from an assisted living facility in [facility] to another one in [place]. Recently discharged from the hospital for a [...] orders accordingly - Yes Labs reviewed in [facility] Reviewed and updated as needed this visit [...] Preventive Guidelines Dietary Guidelines for Americans, 2009 [employer] ASA Prophylaxis Lung CA Screening Audrey Hickman MD [facility] documented in this encounter Plan of Treatment [...] documented as of this encounter Care Teams County Assessor Relationship Specialty Start Date End Date Teresita Garcia MD PCP - General Family Practice 01/22/11 [address] [place] [address] Teresita Garcia MD Assigned PCP 11/16/16 12/28/21 [address] [place], [place] [phone] documented as of this encounter
--- OUTSIDE RECORDS SUMMARY | 2022-08-21 16:57 | XMS_ITS | Encounter Summary ---
:1960 Author Organization [place] Address [facility] [place] [address] Care Team Providers Name Role Phone Teresita Garcia MD Primary Care Provider Teresita Garcia MD Unavailable Reason for Visit Reason Onset Date Comments Forms 11/21/2020 Plan of Care Encounter Details Date Type Department Care Team Description 11/21/2020 Telephone [facility] Roel Garcia MD Forms (Plan of Care) [address] [place] [phone] Social History Tobacco Use Types Packs/Day Years [...] or relatives? How often do you attend hoahaoism or Not asked spiritism services? Do you belong to any clubs or Not asked organizations such as hoahaoism groups, unions, fraternal or athletic groups, or [...] Form completed and faxed, 11/27/2020 Jackie Brito/AWILDA AL PROGRAM MANAGER Telephone Encounter - Rosy Brito - 11/21/2020 11:56 AM CST Received 6 page fax for Plan of Care for Dr Garcia to complete. Form in the in- basket at [facility] in 's folder. AL PROGRAM MANAGER documented in this encounter Plan of Treatment Not on filedocumented as of this encounter Visit Diagnoses Not on filedocumented in this encounter Additional Health Concerns Assessment Noted Time PHQ-9 Depression Total Score: 8 06/26/2020 12:57 PM CD T documented as of this encounter Care Teams Med Spa Manager Relationship Specialty Start Date End Date Teresita Garcia MD PCP - General Family Practice 01/22/11 [address] [place] [address] Teresita Garcia MD Assigned PCP 11/16/16 12/28/21 [address] [place] [address] documented as of this encounter
--- OUTSIDE RECORDS SUMMARY | 2022-08-21 16:57 | XMS_ITS | Encounter Summary ---
:1960 Author Organization [place] Address [facility] [place] [address] Care Team Providers Name Role Phone Teresita Garcia MD Primary Care Provider Teresita Garcia MD Unavailable Reason for Visit Reason Onset Date Comments Forms 01/23/2021 Plan of Care Encounter Details Date Type Department Care Team Description 01/23/2021 Telephone [facility] Roel Garcia MD Forms (Plan of Care) [address] [place] [phone] Social History Tobacco Use Types Packs/Day Years [...] do you attend synagogue or Not asked bahai services? Do you [...] complete. Form in the in- basket at [facility] in 's folder. documented in this encounter Plan of Treatment Not on filedocumented as of this encounter Visit Diagnoses Not on filedocumented in this encounter Additional Health Concerns Assessment Noted Time PHQ-9 Depression Total Score: 8 06/26/2020 12:57 PM CD T documented as of this encounter Care Teams Lead Welder Relationship Specialty Start Date End Date Teresita Garcia MD PCP - General Family Practice 01/22/11 [address] [place] [address] Teresita Garcia MD Assigned PCP 11/16/16 12/28/21 [address] [place] [address] documented as of this encounter
--- OUTSIDE RECORDS SUMMARY | 2022-08-21 16:57 | XMS_ITS | Encounter Summary ---
:1960 Author Organization [place] Address [address] [facility] [place] [address] Care Team Providers Name Role Phone Teresita Garcia MD Primary Care Provider Teresita Garcia MD Unavailable Encounter Details Date Type Department Care Team Description 11/27/2020 Medical Correspondence [facility] Scan, PLAN OF CARE [facility] Health Info [facility] Non-Provider [facility] [address] [place] [address] Social History Tobacco Use Types Packs/Day [...] do you attend jewish or Not asked taoist services? Do you [...] documented as of this encounter Care Teams Wire Mesh Gate Assembler Relationship Specialty Start Date End Date Teresita Garcia MD PCP - General Family Practice 01/22/11 [address] [place], [place] [phone] Teresita Garcia MD Assigned PCP 11/16/16 12/28/21 [address] [place], [place] [phone] documented as of this encounter
--- OUTSIDE RECORDS SUMMARY | 2022-08-21 16:57 | XMS_ITS | Encounter Summary ---
:1960 Author Organization [place] Address [facility] [place] [address] Care Team Providers Name Role Phone Teresita Garcia MD Primary Care Provider Teresita Garcia MD Unavailable Reason for Visit Reason Comments Medication Refill Encounter Details Date Type Department Care Team Description 05/04/2021 Refill [facility] Roel Garcia MD Medication Refill [address] [address] [place], [place] [phone] [place] [address] [phone] Social History Tobacco Use Types Packs/Day Years [...] do you attend orthodoxy or Not asked yarsani services? Do you [...] 05/07/2021 12:37 PM CDT Prescription approved per [facility] Refill Protocol. Zuleyma Fierro RN on 05/07/2021 at 12:37 PM documented in this encounter Plan of Treatment Not on filedocumented as of this encounter Visit Diagnoses Diagnosis Osteoporosis, unspecified osteoporosis t ype, unspecified pathological fracture presence documented in this encounter Additional Health Concerns Assessment Noted Time PHQ-9 Depression Total Score: 6 04/12/2021 1:59 PM CDT documented as of this encounter Care Teams Networking Specialist Relationship Specialty Start Date End Date Teresita Garcia MD PCP - General Family Practice 01/22/11 [address] [place], [place] [phone] Teresita Garcia MD Assigned PCP 11/16/16 12/28/21 [address] [place], [place] [phone] documented as of this encounter
--- OUTSIDE RECORDS SUMMARY | 2022-08-21 16:57 | XMS_ITS | Encounter Summary ---
:1960 Author Organization [place] Address [address] [facility] [place] [address] Care Team Providers Name Role Phone Teresita Garcia MD Primary Care Provider Teresita Garcia MD Unavailable Reason for Visit Reason Onset Date Comments Orders 01/11/2021 [facility] Encounter Details Date Type Department Care Team Description [facility] [address] [place] [address] Social History Tobacco Use Types [...] do you attend mu-ism or Not asked yarsanism services? Do you [...] come out to see pt. Zoie Elizabeth [place] care [phone] Joselin Gusman RN, BSN, PAL (Patient Advocate Liaison) [facility] [phone]\ documented in this encounter Plan of Treatment Not on filedocumented as of this encounter Visit Diagnoses Not on filedocumented in this encounter Additional Health Concerns Assessment Noted Time PHQ-9 Depression Total Score: 8 06/26/2020 12:57 PM CD T documented as of this encounter Care Teams Heat Reader Relationship Specialty Start Date End Date Teresita Garcia MD PCP - General Family Practice 01/22/11 [address] [place], [place] [phone] Teresita Garcia MD Assigned PCP 11/16/16 12/28/21 [address] [place], [place] [phone] documented as of this encounter
--- OUTSIDE RECORDS SUMMARY | 2022-08-21 16:57 | XMS_ITS | Encounter Summary ---
:1960 Author Organization [place] Address [address] [facility] [place] [address] Care Team Providers Name Role Phone Teresita Garcia MD Primary Care Provider Teresita Garcia MD Unavailable Encounter Details Date Type Department Care Team Description 03/15/2021 Medical Correspondence [facility] [place] Scan, HOME HEALTH PLAN OF Health Info Mgmt Non-Provider [facility] [address] [place] [address] Social History Tobacco Use Types [...] do you attend anabaptist or Not asked adventism services? Do you [...] documented as of this encounter Care Teams Hook Up Driver Relationship Specialty Start Date End Date Teresita Garcia MD PCP - General Family Practice 01/22/11 [address] [place] [address] Teresita Garcia MD Assigned PCP 11/16/16 12/28/21 [address] [place] [address] documented as of this encounter
--- OUTSIDE RECORDS SUMMARY | 2022-08-21 16:57 | XMS_ITS | Encounter Summary ---
:1960 Author Organization [place] Address [address] [facility] [place] [address] Care Team Providers Name Role Phone Teresita Garcia MD Primary Care Provider Teersita Garcia MD Unavailable Reason for Visit Reason Onset Date Comments Forms 01/23/2021 SPA CONCIERGE Assessment and/o r Follow up Encounter Details Date Type Department Care Team Description 01/23/2021 Telephone [facility] Teresita Garcia MD Forms ([facility]A CONCIER[facility] Assessment Clinic [address] and/or Follow up) [address] [place] [address] [phone] Social History Tobacco Use Types Packs/Day [...] do you attend jainism or Not asked judaism services? Do you [...] AM CDT Received 2 page fax for SPA CONCIERGE Assessment and/or Follow up for Dr Garcia to complete. Form in the in-basket at [facility] in 's folder. documented in this encounter Plan of Treatment Not on filedocumented as of this encounter Visit Diagnoses Not on filedocumented in this encounter Additional Health Concerns Assessment Noted Time PHQ-9 Depression Total Score: 8 06/26/2020 12:57 PM CD T documented as of this encounter Care Teams Pricing Strategist Relationship Specialty Start Date End Date Teresita Garcia MD PCP - General Family Practice 01/22/11 [address] [place] [address] Teresita Garcia MD Assigned PCP 11/16/16 12/28/21 [address] [place] [address] documented as of this encounter
--- OUTSIDE RECORDS SUMMARY | 2022-08-21 16:57 | XMS_ITS | Encounter Summary ---
:1960 Author Organization [place] Address [address] [facility] [place] [address] Care Team Providers Name Role Phone Teresita [...] do you attend hindu or Not asked holiness services? Do you [...] documented as of this encounter Care Teams Metallurgical Engineer Relationship Specialty Start Date End Date Teresita Garcia MD PCP - General Family Practice 01/22/11 [address] [place] [address] Teresita Garcia MD Assigned PCP 11/16/16 12/28/21 [address] [place] [address] documented as of this encounter
--- OUTSIDE RECORDS SUMMARY | 2022-08-21 16:57 | XMS_ITS | Encounter Summary ---
:1960 Author Organization [place] Address [address] [facility] [place] [address] Care Team Providers Name Role Phone Teresita Garcia MD Primary Care Provider Teresita Garcia MD Unavailable Reason for Visit Reason Onset Date Comments Forms 04/19/2021 Home Health Care Encounter Details Date Type Department Care Team Description 04/19/2021 Telephone [facility] Teresita Garcia MD Forms (Home Health Clinic [facility] [id number] [place] [address]) [address] [place] [address] [phone] Social History Tobacco Use Types Packs/Day [...] do you attend baptist or Not asked protestant services? Do you [...] 1:59 PM CDT Forms completed Fax to [phone] Telephone Encounter - Blanca Alves CMA - 04/19/2021 7:00 AM CDT 04/19/2021 [facility] forms to be sign placed in AA box. Fax to [phone] when completed documented in this encounter Plan of Treatment Not on filedocumented as of this encounter Visit Diagnoses Not on filedocumented in this encounter Additional Health Concerns Assessment Noted Time PHQ-9 Depression Total Score: 6 04/12/2021 1:59 PM CDT documented as of this encounter Care Teams Composite Engineer Relationship Specialty Start Date End Date Teresita Garcia MD PCP - General Family Practice 01/22/11 [address] [place] [address] Teresita Garcia MD Assigned PCP 11/16/16 12/28/21 [address] [place] [address] documented as of this encounter
--- OUTSIDE RECORDS SUMMARY | 2022-08-21 16:57 | XMS_ITS | Encounter Summary ---
:1960 Author Organization [place] Address [address] [facility] [address] Care Team Providers Name Role Phone Teresita Garcia MD Primary Care Provider Teresita Garcia MD Unavailable Encounter Details Date Type Department Care Team Description 04/30/2021 Medical Correspondence [facility] [place] Scan, ORDERS [facility] Health Info Mgmt Non-Provider HEALTH/HOSP ICE Sr[facility] [address] [place] [address] Social History Tobacco Use Types [...] do you attend amish or Not asked orthodox services? Do you [...] documented as of this encounter Care Teams Roller Man Relationship Specialty Start Date End Date Teresita Garcia MD PCP - General Family Practice 01/22/11 [address] [place], [place] [id number] Teresita Garcia MD Assigned PCP 11/16/16 12/28/21 [address] [place] [address] documented as of this encounter
--- OUTSIDE RECORDS SUMMARY | 2022-08-21 16:57 | XMS_ITS | Encounter Summary ---
:1960 Author Organization [place] Address [address] [place] [address] Care Team Providers Name Role Phone Teresita Garcia MD Primary Care Provider Teresita Garcia MD Unavailable Reason for Visit Reason Onset Date Comments Forms 09/12/2020 Physician Order Encounter Details Date Type Department Care Team Description 09/12/2020 Telephone [facility] Teresita Garcia MD Forms (Physician Order) Clinic [phone] [place] [address] [phone] Social History Tobacco Use Types Packs/Day [...] do you attend congregational or Not asked pentecostal services? Do you [...] Form completed and faxed, 09/12/2020 Jackie Brito/AWILDA P CAPTAIN Telephone Encounter - Rosy Brito - 09/12/2020 9:16 AM CST Received 2 page fax for Physician Order for Dr Garcia to complete. Form in the in- basket at [facility] in AA's folder. P CAPTAIN documented in this encounter Plan of Treatment Not on filedocumented as of this encounter Visit Diagnoses Not on filedocumented in this encounter Additional Health Concerns Assessment Noted Time PHQ-9 Depression Total Score: 8 06/26/2020 12:57 PM CD T documented as of this encounter Care Teams Pretzel Cooker Relationship Specialty Start Date End Date Teresita Garcia MD PCP - General Family Practice 01/22/11 [address] [place] [address] Teresita Garcia MD Assigned PCP 11/16/16 12/28/21 [address] [place] [address] documented as of this encounter
--- OUTSIDE RECORDS SUMMARY | 2022-08-21 16:57 | XMS_ITS | Encounter Summary ---
:1960 Author Organization [place] Address [address] [facility] [place] [address] Care Team Providers Name Role Phone Teresita Garcia MD Primary Care Provider Teresita Garcia MD Unavailable Reason for Visit Reason Onset Date Comments Home Care/Hospice 04/22/2021 OT Encounter Details Date Type Department Care Team Description 04/22/2021 Telephone [facility] Teresita Garcia MD Home Care/Hospice (OT) Clinic [address] [phone] Social History Tobacco Use Types Packs/Day [...] do you attend scientologist or Not asked yazidism services? Do you [...] CDT Homecare Orders Requested: Zoie at from [facility] called to request orders for [...] documented as of this encounter Care Teams Nutritional Services Cook Relationship Specialty Start Date End Date Teresita Garcia MD PCP - General Family Practice 01/22/11 [address] [place] [address] Teresita Garcia MD Assigned PCP 11/16/16 12/28/21 [address] [place] [address] documented as of this encounter
--- OUTSIDE RECORDS SUMMARY | 2022-08-21 16:57 | XMS_ITS | Encounter Summary ---
:1960 Author Organization [place] Address [facility] [place] [address] Care Team Providers Name Role Phone Teresita Garcia MD Primary Care Provider Teresita Garcia MD Unavailable Reason for Visit Reason Onset Date Comments Forms 03/20/2021 Orders Encounter Details Date Type Department Care Team Description 03/20/2021 Telephone [facility] Roel Garcia MD Forms (Orders) [address] [address] [place] [address] [place] [address] [phone] Social History Tobacco Use Types Packs/Day Years [...] do you attend protestant or Not asked buddhist services? Do you belong to any clubs [...] documented as of this encounter Care Teams Ceramics Instructor Relationship Specialty Start Date End Date Teresita Garcia MD PCP - General Family Practice 01/22/11 [address] [place], [place] [phone] Teresita Garcia MD Assigned PCP 11/16/16 12/28/21 [address] [place] [address] documented as of this encounter
--- OUTSIDE RECORDS SUMMARY | 2022-08-21 16:57 | XMS_ITS | Encounter Summary ---
:1960 Author Organization [place] Address [address] [facility] [place] [address] Care Team Providers Name Role Phone Teresita Garcia MD Primary Care Provider Teresita Garcia MD Unavailable Encounter Details Date Type Department Care Team Description 04/03/2021 Medical Correspondence [facility] Scan, PLAN OF CARE Unomy Info [facility] Non-Provider HEALTH HOME HEALTH Srvcs [address] [place] [address] Social History Tobacco Use Types [...] do you attend yarsani or Not asked jainism services? Do you [...] as of this encounter Care Teams Director Of Bands Relationship Specialty Start Date End Date Teresita Garcia MD PCP - General Family Practice 01/22/11 [address] [place], [place] [phone] Teresita Garcia MD Assigned PCP 11/16/16 12/28/21 [address] [place] [address] documented as of this encounter
--- OUTSIDE RECORDS SUMMARY | 2022-08-21 16:57 | XMS_ITS | Encounter Summary ---
:1960 Author Organization [place] Address [address] [place] [address] Care Team Providers Name Role Phone Teresita Garcia MD Primary Care Provider Teresita Garcia MD Unavailable Reason for Visit Reason Onset Date Comments Pt. Information/instruction 02/20/2021 [facility] Encounter Details Date Type Department Care Team Description 02/20/2021 Telephone [facility] Teresita Garcia MD Pt. Clinic [address] Information/instruction [address] [place], [place] (new amdission) [place], [place] [phone] Social History Tobacco Use Types Packs/Day [...] do you attend scientology or Not asked jainism services? Do you [...] Covarrubias RN - 02/20/2021 1:53 PM CDT [facility], , need stat med list and last appointment Faxed [phone], pt will be new admit, will fax [...] documented as of this encounter Care Teams Automobile Brakes Bonder Relationship Specialty Start Date End Date Teresita Garcia MD PCP - General Family Practice 01/22/11 [address] [place] [address] Teresita Garcia MD Assigned PCP 11/16/16 12/28/21 [address] [place] [address] documented as of this encounter
--- OUTSIDE RECORDS SUMMARY | 2022-08-21 16:57 | XMS_ITS | Encounter Summary ---
:1960 Author Organization [place] Address [address] [facility] [place] [address] Care Team Providers Name Role Phone Teresita [...] do you attend quaker or Not asked taoism services? Do you [...] documented as of this encounter Care Teams Box Loader Relationship Specialty Start Date End Date Teresita Garcia MD PCP - General Family Practice 01/22/11 [address] [place] [address] Teresita Garcia MD Assigned PCP 11/16/16 12/28/21 [address] [place] [address] documented as of this encounter
--- OUTSIDE RECORDS SUMMARY | 2022-08-21 16:57 | XMS_ITS | Encounter Summary ---
:1960 Author Organization [place] Address [address] [facility] [place] [address] Care Team Providers Name Role Phone Teresita Garcia MD Primary Care Provider Teresita Garcia MD Unavailable Reason for Visit Reason Onset Date Comments Forms 10/01/2020 Physician Orders Encounter Details Date Type Department Care Team Description 10/01/2020 Telephone [facility] Teresita Garcia MD Forms (Physician Clinic [facility] [phone] [place] [address] Orders) [address] [place], [place] [phone] Social History Tobacco Use Types Packs/Day [...] do you attend jewish or Not asked restorationism services? Do you [...] Form completed and faxed, 10/02/2020 Jackie Brito/AWILDA ETING AUTOMATION ANALYST Telephone Encounter - Rosy Brito - 10/01/2020 10:02 AM CST Received 2 page fax for Physician Orders for Dr Garcia to complete. Form in the in-basket at [facility] in 's folder. ETING AUTOMATION ANALYST documented in this encounter Plan of Treatment Not on filedocumented as of this encounter Visit Diagnoses Not on filedocumented in this encounter Additional Health Concerns Assessment Noted Time PHQ-9 Depression Total Score: 8 06/26/2020 12:57 PM CD T documented as of this encounter Care Teams Metal Inspector Relationship Specialty Start Date End Date Teresita Garcia MD PCP - General Family Practice 01/22/11 [address] [place] [address] Teresita Garcia MD Assigned PCP 11/16/16 12/28/21 [address] [place] [address] documented as of this encounter
--- OUTSIDE RECORDS SUMMARY | 2022-08-21 16:57 | XMS_ITS | Encounter Summary ---
:1960 Author Organization [place] Address [address] [facility] [address] Care Team Providers Name Role Phone Teresita Garcia MD Primary Care Provider Teresita Garcia MD Unavailable Reason for Visit Reason Onset Date Comments Home Care/Hospice 11/13/2020 orders Encounter Details Date Type Department Care Team Description 11/13/2020 Telephone [facility] Teresita Garcia MD Home Care/Hospice Clinic [place] [phone] [place] [address] (orders) [address] [place] [phone] Social History Tobacco Use Types [...] do you attend lutheran or Not asked episcopalian services? Do you [...] Notes Telephone Encounter - Malena Hankins - 11/15/2020 3:25 PM CST Signed form faxed. Malena Hankins Fish Farm Laborer MECHANIC Telephone Encounter - Bella Harden - 11/14/2020 9:01 AM CST Received 1 page fax from [facility] for orders. Placed in AA's folder. Please fax completed form to [phone]. Bella Harden Fish Farm Laborer MECHANIC Telephone Encounter - Karen Covarrubias RN - 11/13/2020 1:24 PM CST Homecare Orders Requested: Jacqueline at from [facility] called to request orders for the following Services: Home Health Aide for:2 times a week with shower and fci for catheter changes Homecare agency to fax orders over for review and signature of PCP, verbal orders provided, FYI to AA Karen Covarrubias RN, BSN Message handled by CLINIC NURSE. MECHANIC documented in this encounter Plan of Treatment Not on filedocumented as of this encounter Visit Diagnoses Not on filedocumented in this encounter Additional Health Concerns Assessment Noted Time PHQ-9 Depression Total Score: 8 06/26/2020 12:57 PM CD T documented as of this encounter Care Teams Broadcast Operations Manager Relationship Specialty Start Date End Date Teresita Garcia MD PCP - General Family Practice 01/22/11 [address] [place] [address] Teresita Garcia MD Assigned PCP 11/16/16 12/28/21 [address] [place] [address] documented as of this encounter
--- OUTSIDE RECORDS SUMMARY | 2022-08-21 16:57 | XMS_ITS | Encounter Summary ---
:1960 Author Organization [place] Address [address] [facility] [place] [address] Care Team Providers Name Role Phone Teresita Garcia MD Primary Care Provider Teresita Garcia MD Unavailable Reason for Visit Reason Onset Date Comments Forms 05/31/2021 [facility] o f care Encounter Details Date Type Department Care Team Description 05/31/2021 Telephone [facility] Teresita Garcia MD Forms ([address]) [address] [place] [address] [phone] Social History Tobacco Use Types Packs/Day [...] do you attend sikh or Not asked protestant services? Do you [...] AM CDT Forms completed and faxed to [phone] Telephone Encounter - Blanca Alves CMA - 05/31/2021 9:03 AM CDT Forms from [facility] of care needing to be signed placed in Dr Garcia box. Please fax to [phone] when completed documented in this encounter Plan of Treatment Not on filedocumented as of this encounter Visit Diagnoses Not on filedocumented in this encounter Additional Health Concerns Assessment Noted Time PHQ-9 Depression Total Score: 6 04/12/2021 1:59 PM CDT documented as of this encounter Care Teams Rrt Relationship Specialty Start Date End Date Teresita Garcia MD PCP - General Family Practice 01/22/11 [address] [place] [address] Teresita Garcia MD Assigned PCP 11/16/16 12/28/21 [address] [place] [address] documented as of this encounter
--- OUTSIDE RECORDS SUMMARY | 2022-08-21 16:57 | XMS_ITS | Encounter Summary ---
:1960 [address] [place] Address [address] [facility] [place] [address] Care Team Providers Name Role Phone Teresita Garcia MD Primary Care Provider Teresita Garcia MD Unavailable Reason for Referral Care Coordination (Routine) - Closed Specialty Diagnoses / Procedures Referred By Contact Refer red To Contact Diagnoses Counseling and coordination of care Care Coordination [address] [place], [place] [phone] Referral ID Status Reason Start Date Expiration Date Visits Requ ested Visits Authorized [id number] Closed 04/09/2021 04/09/2022 1 1 Encounter Details Date Type Department Care Team Description 04/09/2021 Orders Only [facility] Care Angle Viera, Counseling and Coordination RN coordination of care [address] [place] [address] (Primary Dx) [place], [place] (Work) [phone] Social History Tobacco Use [...] do you attend congregation or Not asked cheondoism services? Do you [...] as of this encounter Plan of Treatment Scheduled Referrals [...] documented as of this encounter Care Teams Tire Man Relationship Specialty Start Date End Date Teresita Garcia MD PCP - General Family Practice 01/22/11 [address] [place] [address] Treesita Garcia MD Assigned PCP 11/16/16 12/28/21 [address] [place] [address] documented as of this encounter
--- OUTSIDE RECORDS SUMMARY | 2022-08-21 16:57 | XMS_ITS | Encounter Summary ---
:1960 Author Organization [place] Address [address] [facility] [place] [address] Care Team Providers Name Role Phone Teresita Garcia MD Primary Care Provider Teresita Garcia MD Unavailable Reason for Visit Reason Comments Hospital F/U sepsis, UTI Encounter Details Date Type Department Care Team Description 04/12/2021 Virtual Visit [facility] Teresita Garcia MD Sepsis secondary to UTI (H) (Primary Dx) ; Clinic [facility] [id number] [place] [address] Lab test positive for detection of COVID -[address] [place] [address] [phone] Social History Tobacco Use Types Packs/Day [...] do you attend evangelical or Not asked evangelical services? Do you [...] would you like to be contacted at? [phone] How would you like to obtain your [...] up in [address] [facility] Subjective Dejuan is a 60 year old who presents for the following health issues HPI Hospital Follow-up Visit: Hospital/Chcf/IP Rehab Facility: [facility] Date of Admission: 04/04/21 Date [...] documented as of this encounter Care Teams Laundry Laborer Relationship Specialty Start Date End Date Teresita Garcia MD PCP - General Family Practice 01/22/11 [address] [place] [address] Teresita Garcia MD Assigned PCP 11/16/16 12/28/21 [address] [place] [address] documented as of this encounter
--- OUTSIDE RECORDS SUMMARY | 2022-08-21 16:57 | XMS_ITS | Encounter Summary ---
:1960 Author Organization [place] Address [address] [facility] [place] [address] Care Team Providers Name Role Phone Teresita Garcia MD Primary Care Provider Teresita Garcia MD Unavailable Reason for Visit Reason Onset Date Comments Home Care/Hospice 04/10/2021 orders Encounter Details Date Type Department Care Team Description 04/10/2021 Telephone [facility] Teresita Garcia MD Home Care/Hospice Clinic [place] [phone] [place] [address] (orders) [phone] [place] [phone] Social History Tobacco Use Types [...] do you attend lutheran or Not asked restorationism services? Do you [...] Homecare Orders Requested: Renea Wills at from [facility] called to request orders for the following Services: Shelter for:2 times a week x 3 weeks [...] documented as of this encounter Care Teams Principal Ios Developer Relationship Specialty Start Date End Date Teresita Garcia MD PCP - General Family Practice 01/22/11 [address] [place] [address] Teresita Garcia MD Assigned PCP 11/16/16 12/28/21 [address] [place] [address] documented as of this encounter
--- OUTSIDE RECORDS SUMMARY | 2022-08-21 16:57 | XMS_ITS | Encounter Summary ---
:1960 Author Organization [place] Address [facility] [place] [address] Care Team Providers Name Role Phone Teresita Garcia MD Primary Care Provider Teresita Garcia MD Unavailable Reason for Visit Reason Comments Medication Refill Encounter Details Date Type Department Care Team Description 11/25/2020 Refill [facility] Roel Garcia MD Medication Refill [address] [address] [place], [place] [phone] [place] [address] [phone] Social History Tobacco Use Types Packs/Day Years [...] do you attend moravian or Not asked buddhist services? Do you [...] 11/27/2020 11:54 AM CST Prescription approved per [facility] Refill Protocol. Karen Covarrubias RN, BSN Message handled by CLINIC NURSE. WORKER documented in this encounter Plan of Treatment Not on filedocumented as of this encounter Visit Diagnoses Diagnosis Osteoporosis, unspecified osteoporosis t ype, unspecified pathological fracture presence documented in this encounter Additional Health Concerns Assessment Noted Time PHQ-9 Depression Total Score: 8 06/26/2020 12:57 PM CD T documented as of this encounter Care Teams Plaster Machine Tender Relationship Specialty Start Date End Date Teresita Garcia MD PCP - General Family Practice 01/22/11 [address] [place], [place] [phone] Teresita Garcia MD Assigned PCP 11/16/16 12/28/21 [address] [place] [address] documented as of this encounter
--- OUTSIDE RECORDS SUMMARY | 2022-08-21 16:57 | XMS_ITS | Encounter Summary ---
:1960 Author Organization [place] Address [address] [facility] [place] [address] Care Team Providers Name Role Phone Teresita Garcia MD Primary Care Provider Teresita Garcia MD Unavailable Encounter Details Date Type Department Care Team Description 04/12/2021 Medical Correspondence [facility] [place] Scan, ORDERS [facility] Health Info Mgmt Non-Provider HEALTH/HOSP ICE Sr[facility] [address] [place] [address] Social History Tobacco Use Types [...] or relatives? How often do you attend sabianist or Not asked taoism services? Do you belong to any clubs or Not asked organizations such as sabianist groups, unions, fraternal or athletic groups, or [...] documented as of this encounter Care Teams Infant Babysitter Relationship Specialty Start Date End Date Teresita Garcia MD PCP - General Family Practice 01/22/11 [address] [place], [place] [phone] Teresita Garcia MD Assigned PCP 11/16/16 12/28/21 [address] [place] [address] documented as of this encounter
--- OUTSIDE RECORDS SUMMARY | 2022-08-21 16:57 | XMS_ITS | Encounter Summary ---
:1960 Author Organization [place] Address [facility] [place] [address] Care Team Providers Name Role Phone Teresita Garcia MD Primary Care Provider Teresita Garcia MD Unavailable Reason for Visit Reason Onset Date Comments Orders 05/03/2021 [facility] Encounter Details Date Type Department Care Team Description 05/03/2021 Telephone [facility] Roel Garcia MD Orders ([facility]) [phone] [place] [phone] (Wo rk) Social History Tobacco Use Types [...] do you attend yarsanism or Not asked pentecostalism services? Do you [...] sign placed in AA box. Fax to [phone] when completed documented in this encounter Plan of Treatment Not on filedocumented as of this encounter Visit Diagnoses Not on filedocumented in this encounter Additional Health Concerns Assessment Noted Time PHQ-9 Depression Total Score: 6 04/12/2021 1:59 PM CDT documented as of this encounter Care Teams Security Sales Manager Relationship Specialty Start Date End Date Teresita Garcia MD PCP - General Family Practice 01/22/11 [address] [place] [address] Teresita Garcia MD Assigned PCP 11/16/16 12/28/21 [address] [place] [address] documented as of this encounter
--- OUTSIDE RECORDS SUMMARY | 2022-08-21 16:57 | XMS_ITS | Encounter Summary ---
:1960 Author Organization [place] Address [address] [facility] [place] [address] Care Team Providers Name Role Phone Teresita Garcia MD Primary Care Provider Teresita Garcia MD Unavailable Encounter Details Date Type Department Care Team Description 01/22/2021 Medical Correspondence [facility] Scan, HOME CARE RECORD Health Info Mgmt Non-Provider [facility] HEALTH/HOSPICE [address] [place] [phone] Social History Tobacco Use Types Packs/Day [...] do you attend worship or Not asked samaritan services? Do you [...] documented as of this encounter Care Teams Court Bailiff Or Sheriff Relationship Specialty Start Date End Date Teresita Garcia MD PCP - General Family Practice 01/22/11 [address] [place], [place] [phone] Teresita Garcia MD Assigned PCP 11/16/16 12/28/21 [address] [place], [place] [phone] documented as of this encounter
--- OUTSIDE RECORDS SUMMARY | 2022-08-21 16:57 | XMS_ITS | Encounter Summary ---
:1960 Author Organization [place] Address [address] [facility] [place] [address] Care Team Providers Name Role Phone Teresita [...] do you attend shinto or Not asked roman catholic services? Do [...] documented as of this encounter Care Teams Fishing Hand Relationship Specialty Start Date End Date Teresita Garcia MD PCP - General Family Practice 01/22/11 [address] [place] [address] Teresita Garcia MD Assigned PCP 11/16/16 12/28/21 [address] [place] [address] documented as of this encounter
--- OUTSIDE RECORDS SUMMARY | 2022-08-21 16:58 | XMS_ITS | Encounter Summary ---
:1960 Author Organization [place] Address [address] [facility] [place] [address] Care Team Providers Name Role Phone Teresita Garcia MD Primary Care Provider Teresita Garcia MD Unavailable Dolores Caputo REGIONAL CONSTRUCTION MANAGER Unavailable Letha Vasquez MA Unavailable Encounter Details Date Type Department Care Team Description 07/30/2020 Medical Correspondence [facility] Scan, PLAN OF CARE [facility] Non-Provider HEALTH HOME HEALTH Sr[facility] [address] [place] [phone] Social History Tobacco Use Types Packs/Day [...] documented as of this encounter Care Teams Visual Training Aide Relationship Specialty Start Date End Date Teresita Garcia MD PCP - General Family Practice 01/22/11 [address] [place], [place] [phone] Teresita Garcia MD Assigned PCP 11/16/16 12/28/21 [address] [place], [place] [phone] Dolores Caputo, REGIONAL CONSTRUCTION MANAGER Lead Copy And Print Associate Primary Care - CC 06/27/20 09/03/20 Letha Vasquez, Community Health Worker 07/05/20 09/03/20 [place] documented as of this encounter
--- OUTSIDE RECORDS SUMMARY | 2022-08-21 16:58 | XMS_ITS | Encounter Summary ---
:1960 Author Organization [place] Address [address] [place] [address] Care Team Providers Name Role Phone Teresita [...] do you attend sikh or Not asked methodist services? Do you [...] Depression Total Score: 8 12/02/2019 2:02 PM PENCILLER documented as of this encounter Care Teams Photographic Colorist Relationship Specialty Start Date End Date Teresita Garcia MD PCP - General Family Practice 01/22/11 [address] [place] [address] Teresita Garcia MD Assigned PCP 11/16/16 12/28/21 [address] [place], [place] [phone] documented as of this encounter
--- OUTSIDE RECORDS SUMMARY | 2022-08-21 16:58 | XMS_ITS | Encounter Summary ---
:1960 Author Organization [place] Address [facility] [place] [address] Care Team Providers Name Role Phone Teresita Garcia MD Primary Care Provider Teresita Garcia MD Unavailable Reason for Visit Reason Onset Date Comments Forms 05/18/2020 Orders Encounter Details Date Type Department Care Team Description 05/18/2020 Telephone [facility] Roel Garcia MD Forms (Orders) [phone] [place] [address] [place] [address] [phone] Social History Tobacco Use Types Packs/Day Years [...] do you attend denominational or Not asked muslim services? Do you [...] clinic location was the form placed at?: [facility] Where the form was placed: Dr Garcia Box/Folder What number is listed as a contact on the form?: [phone] Additional comments: please sign and date and fax to [phone] Call taken on 05/18/2020 at 9:59 AM by Brooklyn Ogden documented in this encounter Plan of Treatment Not on filedocumented as of this encounter Visit Diagnoses Not on filedocumented in this encounter Additional Health Concerns Assessment Noted Time PHQ-9 Depression Total Score: 8 12/02/2019 2:02 PM CONTROL INSPECTOR documented as of this encounter Care Teams Fisher Trawl Line Relationship Specialty Start Date End Date Teresita Garcia MD PCP - General Family Practice 01/22/11 [address] [place] [address] Teresita Garcia MD Assigned PCP 11/16/16 12/28/21 [address] [place] [address] documented as of this encounter
--- OUTSIDE RECORDS SUMMARY | 2022-08-21 16:58 | XMS_ITS | Encounter Summary ---
:1960 Author Organization [place] Address [address] [facility] [place] [address] Care Team Providers Name Role Phone Teresita Garcia MD Primary Care Provider Teresita Garcia MD Unavailable Dolores Caputo ELECTRONICS TECH Unavailable Letha Vasquez MA Unavailable Reason for Visit Reason Onset Date Comments Orders 07/27/2020 [facility] Encounter Details Date Type Department Care Team Description 07/27/2020 Telephone [facility] Teresita Garcia MD Orders ([facility] [address]) [address] [place] [phone] Social History Tobacco Use Types Packs/Day [...] do you attend caodaism or Not asked sabianist services? Do you [...] PM CST Signed orders faxed. Malena Hankins Manager Labor Relations F OPHTHALMIC TECHNICIAN Telephone Encounter - Malena Hankins - 07/27/2020 8:29 AM CDT Recd 2 page fax from [email or web address]. Please sign orders and fax to [phone]. Form in AA folder at [place]. Malena Hankins Manager Labor Relations documented in this encounter Plan of Treatment Not on filedocumented as of this encounter Visit Diagnoses Not on filedocumented in this encounter Additional Health Concerns Assessment Noted Time PHQ-9 Depression Total Score: 8 06/26/2020 12:57 PM CD T documented as of this encounter Care Teams Screen Printing Equipment Setter Relationship Specialty Start Date End Date Teresita Garcia MD PCP - General Family Practice 01/22/11 [address] [place] [address] Teresita Garcia MD Assigned PCP 11/16/16 12/28/21 [address] [place] [address] Dolores Caputo, PATEL Lead Boiler Out Primary Care - CC 06/27/20 09/03/20 Letha Vasquez, Community Health Worker 07/05/20 09/03/20 [place] documented as of this encounter
--- OUTSIDE RECORDS SUMMARY | 2022-08-21 16:58 | XMS_ITS | Encounter Summary ---
:1960 Author Organization [place] Address [address] [facility] 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 documented in this encounter Results DX Wrist Heel Radius (04/04/2020 1:43 PM CDT) Anatomical Region Laterality Modality Dexa Bone Mineral Density Specimen (Source) Anatomical Location Collection Method / Collectio n Time Received Time / Laterality Volume Narrative 04/06/2020 1:21 PM CDT BONE DENSITOMETRY [address] [address] 04/04/2020 ?? PATIENT: Dejuan Rodriguez CHART: [id number] : ??1960 AGE: ??59 year old SEX: ??male REFERRING PROVIDER: Teresita Garcia MD ?? PROCEDURE: ??Bone density scanning was p erformed using DXA technology of the lumbar spine and hip. ??Scanning was performed on a [employer] Mobile scanner. ??Reporting is completed in the form of a T-score. ??The T-score represents the standard deviation from p eak bone mass based on a young healthy adult. ?? REFERENCE T-SCORES: ?Normal ?-1.0 and greater ?Osteopenia ? Between -1. 0 and -2.5 ?Osteoporosis ? -2.5 and less ? RISK FACTORS: ??Post-menopausal, Parent history of osteoporosis with a hip fracture, intermediate corticosteroid thera py CURRENT TREATMENT: ??Calcium, Fosamax [...] be considered in 2-3 years . Karen eMrcer M.D. Electronically signed Teresita Garcia MD IMG DEXA ORDERABLES documented in this encounter Visit Diagnoses Diagnosis intermediate current use of systemic steroi ds Encounter for long-term (current) use of steroids documented in this encounter Additional Health Concerns Assessment Noted Time PHQ-9 Depression Total Score: 8 12/02/2019 2:02 PM ELECTRIC SEALING MACHINE OPERATOR documented as of this encounter Care Teams Tank Worker Relationship Specialty Start Date End Date Teresita Garcia MD PCP - General Family Practice 01/22/11 [address] [place] [address] Teresita Garcia MD Assigned PCP 11/16/16 12/28/21 [address] [place], [place] [phone] documented as of this encounter
--- OUTSIDE RECORDS SUMMARY | 2022-08-21 16:58 | XMS_ITS | Encounter Summary ---
:1960 Author Organization [place] Address [address] [facility] [place] [address] Care Team Providers Name Role Phone Teresita Garcia MD Primary Care Provider Teresita Garcia MD Unavailable Dolores Caputo VENEER DRIER Unavailable Letha Vasquez MA Unavailable Audrey Hickman MD Unavailable [phone] Reason for Visit Reason Onset Date Comments Forms 05/23/2020 [facility] Encounter Details Date Type Department Care Team Description 05/23/2020 [facility] Teresita Garcia MD Forms ([address]) [address] [place] [phone] Social History Tobacco Use Types Packs/Day Years [...] do you attend holiness or Not asked baptism services? Do you belong to any clubs or Not asked organizations such as holiness groups, unions, fraternal or athletic groups, or [...] PM CDT Recd 6 page fax from [facility]. Please sign Plan of Care orders and fax to [phone]. Form in AA folder at [place]. Malena Hankins Image Assembler documented in this encounter Plan of Treatment Not on filedocumented as of this encounter Visit Diagnoses Not on filedocumented in this encounter Additional Health Concerns Assessment Noted Time PHQ-9 Depression Total Score: 8 12/02/2019 2:02 PM EARTH SCIENCE TEACHER documented as of this encounter Care Teams Janitor Cleaner Relationship Specialty Start Date End Date Teresita Garcia MD PCP - General Family Practice 01/22/11 [address] [place] [address] Teresita Garcia MD Assigned PCP 11/16/16 12/28/21 [address] [place] [address] Dolores Caputo, VENEER DRIER Lead Theater Set Production Designer Primary Care - CC 06/27/20 09/03/20 Letha Vasquez, Community Health Worker 07/05/20 09/03/20 MA Audrey Hickman Assigned PCP 12/29/21 [place] [address] [place] [address] documented as of this encounter
--- OUTSIDE RECORDS SUMMARY | 2022-08-21 16:58 | XMS_ITS | Encounter Summary ---
:1960 Author Organization [place] Address [address] [facility] [place] [address] Care Team Providers Name Role Phone Teresita Garcia MD Primary Care Provider Teresita Garcia MD Unavailable Encounter Details Date Type Department Care Team Description 04/10/2020 Medical Correspondence [facility] Scan, PLAN OF CARE [facility] Non-Provider HOME HEALTH /HOSPICE Sr[facility] [address] [place] [address] Social History Tobacco Use Types [...] do you attend buddhist or Not asked religion services? Do you [...] Depression Total Score: 8 12/02/2019 2:02 PM CEMETERY WORKERS SUPERVISOR documented as of this encounter Care Teams Marble Setter Relationship Specialty Start Date End Date Teresita Garcia MD PCP - General Family Practice 01/22/11 [address] [place], [place] [phone] Teresita Garcia MD Assigned PCP 11/16/16 12/28/21 [address] [place], [place] [phone] documented as of this encounter
--- OUTSIDE RECORDS SUMMARY | 2022-08-21 16:58 | XMS_ITS | Encounter Summary ---
:1960 Author Organization [place] Address [address] [facility] [place] [address] Care Team Providers Name Role Phone Teresita [...] do you attend congregational or Not asked christian services? Do you [...] Total Score: 8 12/02/2019 2:02 PM DIRECTOR PROFESSIONAL SERVICES documented as of this encounter Care Teams Emery Wheel Worker Relationship Specialty Start Date End Date Teresita Garcia MD PCP - General Family Practice 01/22/11 [address] [place] [address] Teresita Garcia MD Assigned PCP 11/16/16 12/28/21 [address] [place], [place] [phone] documented as of this encounter
--- OUTSIDE RECORDS SUMMARY | 2022-08-21 16:58 | XMS_ITS | Encounter Summary ---
:1960 Author Organization [place] Address [address] [place] [address] Care Team Providers Name Role Phone Teresita [...] do you attend anabaptism or Not asked jewish services? Do you [...] Depression Total Score: 8 12/02/2019 2:02 PM MENTAL MEASUREMENTS TEACHER documented as of this encounter Care Teams Agricultural Education Professor Relationship Specialty Start Date End Date Teresita Garcia MD PCP - General Family Practice 01/22/11 [address] [place] [address] Teresita Garcia MD Assigned PCP 11/16/16 12/28/21 [address] [place], [place] [address] documented as of this encounter
--- OUTSIDE RECORDS SUMMARY | 2022-08-21 16:58 | XMS_ITS | Encounter Summary ---
:1960 Author Organization [place] Address [facility] [place] [address] Care Team Providers Name Role Phone Teresita Garcia MD Primary Care Provider Teresita Garcia MD Unavailable Reason for Visit Reason Onset Date Comments Forms 06/07/2020 Orders Encounter Details Date Type Department Care Team Description 06/07/2020 Telephone [facility] Roel Garcia MD Forms (Orders ) [phone] [place] [address] [phone] (Wo rk) Social History Tobacco [...] do you attend confucianist or Not asked alevism services? Do you [...] clinic location was the form placed at?: [facility] Where the form was placed: Dr Garcia Box/Folder What number is listed as a contact on the form?: [phone] Additional comments: please /sign date and fax to [phone] Call taken on 06/07/2020 at 4:00 PM by Brooklyn Ogden documented in this encounter Plan of Treatment Not on filedocumented as of this encounter Visit Diagnoses Not on filedocumented in this encounter Additional Health Concerns Assessment Noted Time PHQ-9 Depression Total Score: 8 12/02/2019 2:02 PM AUDITOR/QUALITY documented as of this encounter Care Teams Internetworking Technician Relationship Specialty Start Date End Date Teresita Garcia MD PCP - General Family Practice 01/22/11 [address] [place], [place] [phone] Teresita Garcia MD Assigned PCP 11/16/16 12/28/21 [address] [place], [place] [phone] documented as of this encounter
--- OUTSIDE RECORDS SUMMARY | 2022-08-21 16:58 | XMS_ITS | Encounter Summary ---
:1960 Author Organization [place] Address [address] [place] [address] Care Team Providers Name Role Phone Teresita Garcia MD Primary Care Provider Teresita Garcia MD Unavailable Dolores Caputo MANUAL LATHE OPERATOR Unavailable Letha Vasquez MA Unavailable Encounter Details Date Type Department Care Team Description 06/19/2020 Anesthesia - M [facility] [place] [address] [place] [phone] [place], [place] [phone] Social History Tobacco Use Types Packs/Day Years [...] or relatives? How often do you attend judaism or Not asked confucianist services? Do you belong to any clubs or Not asked organizations such as judaism groups, unions, fraternal or athletic groups, or [...] events: no QCDR Measures: ASA# 11 - Usad-op Cardiac Arrest: [id number] - Patient did NOT [...] bladder stones, juvenile osteochondrosis hip and pelvis, aack-mbdax-ykcwxnu disease, venous stasis, acquired pseudomeningocele. Covis negative [...] risk factors NOT present PQRS# 424 - Suad-op Temp Management: 4559F - At least one [...] Depression Total Score: 8 12/02/2019 2:02 PM BOOTH SUPERVISOR documented as of this encounter Care Teams Bankman Relationship Specialty Start Date End Date Teresita Garcia MD PCP - General Family Practice 01/22/11 [address] [place], [place] [phone] Teresita Garcia MD Assigned PCP 11/16/16 12/28/21 [address] [place], [place] [phone] Dolores Caputo, MANUAL LATHE OPERATOR Lead Senior Product Marketing Manager Primary Care - CC 06/27/20 09/03/20 Letha Vasquez, Community Health Worker 07/05/20 09/03/20 [place] documented as of this encounter
--- OUTSIDE RECORDS SUMMARY | 2022-08-21 16:58 | XMS_ITS | Encounter Summary ---
:1960 Author Organization [place] Address [address] [facility] [place] [address] Care Team Providers Name Role Phone Teresita Garcia MD Primary Care Provider Teresita Garcia MD Unavailable Encounter Details Date Type Department Care Team Description 05/23/2020 Medical Correspondence [facility] Scan, PLAN OF CARE [facility] Non-Provider HOME HEALTH /HOSPICE Sr[facility] [address] [place] [address] Social History Tobacco Use Types [...] do you attend scientology or Not asked mandaeism services? Do you [...] Depression Total Score: 8 12/02/2019 2:02 PM HAM DOCTOR documented as of this encounter Care Teams Acid Remover Relationship Specialty Start Date End Date Teresita Garcia MD PCP - General Family Practice 01/22/11 [address] [place] [address] Teresita Garcia MD Assigned PCP 11/16/16 12/28/21 [address] [place] [address] documented as of this encounter
--- OUTSIDE RECORDS SUMMARY | 2022-08-21 16:58 | XMS_ITS | Encounter Summary ---
:1960 Author Organization [place] Address [address] [place] [address]. [place] [address] Care Team Providers Name Role Phone Teresita Garcia MD Primary Care Provider Teresita Garcia MD Unavailable Encounter Details Date Type Department Care Team Description 05/19/2020 Medical Correspondence [facility] Scan, PLAN OF CARE Health Info Mgmt Non-Provider 05/19/20 - 1 Srs [facility] [address] [place] [address]/[place] [address] Social History Tobacco Use Types [...] do you attend confucianism or Not asked advent services? Do you [...] Depression Total Score: 8 12/02/2019 2:02 PM STOPPER GRINDER documented as of this encounter Care Teams Hearing Therapy Teacher Relationship Specialty Start Date End Date Teresita Garcia MD PCP - General Family Practice 01/22/11 [address] [place], [place] [phone] Teresita Garcia MD Assigned PCP 11/16/16 12/28/21 [address] [place] [address] documented as of this encounter
--- OUTSIDE RECORDS SUMMARY | 2022-08-21 16:58 | XMS_ITS | Encounter Summary ---
:1960 Author Organization [place] Address [address] [facility] [place] [address] Care Team Providers Name Role Phone Teresita Garcia MD Primary Care Provider Teresita Garcia MD Unavailable Dolores Caputo CLOTHES WRINGER Unavailable Letha Vasquez MA Unavailable Encounter Details Date Type Department Care Team Description 05/28/2020 Ambulatory - [facility] [place] [facility] screening for other [address] [place] [address] viral diseases [place], [place] UROLOGY [address] [place] [address] [address] Social History Tobacco Use Types [...] do you attend hinduism or Not asked zoroastrian services? Do you [...] 1:31 PM Encounter Date: 05/28/2020 Status: Signed Chief Engineer: Camila Sorto RN (Registered Nurse) Addended by: CAMILA SORTO on: 05/28/2020 01:31 PM Modules accepted: Orders documented in this encounter Plan of Treatment Not on filedocumented as of this encounter Visit Diagnoses Diagnosis Encounter for screening for other viral diseases documented in this encounter Additional Health Concerns Assessment Noted Time PHQ-9 Depression Total Score: 8 12/02/2019 2:02 PM SOUNDSCRIBER MECHANIC documented as of this encounter Care Teams Project Engineer Relationship Specialty Start Date End Date Teresita Garcia MD PCP - General Family Practice 01/22/11 [address] [place] [address] Teresita Garcia MD Assigned PCP 11/16/16 12/28/21 [address] [place] [address] Dolores Caputo LSW Lead Sales And Marketing Intern Primary Care - CC 06/27/20 09/03/20 Letha Vasquez, Community Health Worker 07/05/20 09/03/20 [place] documented as of this encounter
--- OUTSIDE RECORDS SUMMARY | 2022-08-21 16:58 | XMS_ITS | Encounter Summary ---
:1960 Author Organization [place] Address [facility] [place] [address] Care Team Providers Name Role Phone Teresita Garcia MD Primary Care Provider Teresita Garcia MD Unavailable Reason for Visit Reason Onset Date Comments Results 04/06/2020 Encounter Details Date Type Department Care Team Description 04/06/2020 Telephone [facility] Roel Garcia MD Results [place] [address] [facility] [address] [place], [place] [phone] [place] [address] [phone] Social History Tobacco Use Types Packs/Day Years [...] do you attend hoahaoism or Not asked mandaeism services? Do you [...] Depression Total Score: 8 12/02/2019 2:02 PM RAILWAY SHUNTER documented as of this encounter Care Teams Spring Machine Operator Relationship Specialty Start Date End Date Teresita Garcia MD PCP - General Family Practice 01/22/11 [address] [place] [address] Teresita Garcia MD Assigned PCP 11/16/16 12/28/21 [address] [place] [address] documented as of this encounter
--- OUTSIDE RECORDS SUMMARY | 2022-08-21 16:58 | XMS_ITS | Encounter Summary ---
:1960 Author Organization [place] Address [address] [facility] [place] [address] Care Team Providers Name Role Phone Teresita Garcia MD Primary Care Provider Teresita Garcia MD Unavailable Reason for Visit Reason Onset Date Comments Pre-Op Exam Imm/Inj 06/12/2020 Flu Shot Encounter Details Date Type Department Care Team Description 06/12/2020 Office Visit [facility] Albina Andujar eneral physical exam (Primary Dx); Clinic [place] DEVORAH Quiñonez Bladder stone; [phone] [place] [address] Need for prophylactic vaccin ation and inoculation against influenza [place], [place] [address] [address] [place], [place] [phone] [address] Social History Tobacco Use Types Packs/Day [...] do you attend alevism or Not asked methodist services? Do you [...] list of medicines, including herbal treatments and xmul-ksa-gllkile drugs ?? Whether the patient has a [...] pre-approve the surgery. (If no insurance, call [phone].) ?? Call your surgeon's clinic if there's [...] of your health care provider. Copyright ?? [id number] [facility]. All rights reserved. Clinically reviewed by Zoie Davis MD. Commissioner [id number] - REV 04/15. Preparing for Your Surgery [...] list of medicines, including herbal treatments and ncib-vyz-eztunju drugs ?? Whether the patient has a [...] pre-approve the surgery. (If no insurance, call [phone].) ?? Call your surgeon's clinic if there's [...] of your health care provider. Copyright ?? 5670-7717 [facility]. All rights reserved. Clinically reviewed by Zoie Davis MD. Commissioner [id number] - REV 04/15. Preparing for Your Surgery [...] list of medicines, including herbal treatments and wtqy-rbf-rdyysmi drugs ?? Whether the patient has a [...] pre-approve the surgery. (If no insurance, call [phone].) ?? Call your surgeon's clinic if there's [...] of your health care provider. Copyright ?? 6321-8563 [facility]. All rights reserved. Clinically reviewed by Zoie aDvis MD. [employer] [id number] - REV 04/15. Preparing for Your Surgery [...] list of medicines, including herbal treatments and njsw-kiz-kfowfxx drugs ?? Whether the patient has a [...] pre-approve the surgery. (If no insurance, call [phone].) ?? Call your surgeon's clinic if there's [...] of your health care provider. Copyright ?? 2650-3926 [facility]. All rights reserved. Clinically reviewed by Zoie Davis MD. Commissioner [id number] - REV 04/15. documented in this encounter Progress Notes Albina Andujar PA-C - 06/12/2020 10:00 AM CDT [address] [phone] Dept: [phone] PRE-OP EVALUATION: Today's date: 06/12/2020 Dejuan Rodriguez (: 1960) presents for pre-operative evaluation assessment as requested byDr. Dax Menon. He requires evaluation and anesthesia risk assessment prior to undergoing surgery/procedure for treatment of CYSTOSCOPY CYSTOLITHOLAPAXY . Proposed Surgery/ Procedure: CYSTOSCOPY CYSTOLITHOLAPAXY Date of Surgery/ Procedure: 06/19/20 Time of Surgery/ Procedure: Hospital/Surgical Facility: [facility] Fax Number: Note does not need to be faxed, will be available electronically in [employer]. Primary Physician: Teresita Garcia Type of Anesthesia [...] process. Provider to review and confirm.) ??? Prkz-Sagbk-Gcpaahs disease 05/14/2011 Priority: Medium ??? Atopic rhinitis [...] ??? Multiple sclerosis (H) sees neurology at [facility] ??? Osteoporosis 01/20/2017 In the spine. ??? [...] cardiovascular risks for perioperative complications such as (NE, PE, VFib and 3?? AV Block): No [...] - 06/12/2020 10:00 AM CDT Faxed to [phone] Chasity Ferrari RMA documented in this encounter [...] Depression Total Score: 8 12/02/2019 2:02 PM VEHICLE WASHER documented as of this encounter Care Teams Documentation Supervisor Relationship Specialty Start Date End Date Teresita Garcia MD PCP - General Family Practice 01/22/11 [address] [place], [place] [id number] Teresita Garcia MD Assigned PCP 11/16/16 12/28/21 [address] [place] [address] documented as of this encounter
--- OUTSIDE RECORDS SUMMARY | 2022-08-21 16:58 | XMS_ITS | Encounter Summary ---
:1960 Author Organization [place] Address [address] [facility] [place] [address] Care Team Providers Name Role Phone Teresita Garcia MD Primary Care Provider Teresita Garcia MD Unavailable Dolores Caputo PROPERTY ADMINISTRATOR Unavailable Letha Vasquez MA Unavailable Reason for Visit Reason Onset Date Comments Forms 07/19/2020 Additional Orders-Ot her Encounter Details Date Type Department Care Team Description 07/19/2020 Telephone [facility] Teresita Garcia MD Forms (Additional Clinic [address] Orders-Other) [id number] [place] [address] [phone] Social History Tobacco Use Types Packs/Day [...] do you attend buddhism or Not asked church services? Do you [...] complete. Form in the in-basket at [facility] in AA's folder. documented in this encounter Plan of Treatment Not on filedocumented as of this encounter Visit Diagnoses Not on filedocumented in this encounter Additional Health Concerns Assessment Noted Time PHQ-9 Depression Total Score: 8 06/26/2020 12:57 PM CD T documented as of this encounter Care Teams Carnival Worker Relationship Specialty Start Date End Date Teresita Garcia MD PCP - General Family Practice 01/22/11 [address] [place] [address] Teresita Garcia MD Assigned PCP 11/16/16 12/28/21 [address] [place] [address] Dolores Caputo, PROPERTY ADMINISTRATOR Lead Library Assistant Primary Care - CC 06/27/20 09/03/20 Letha Vasquez, Community Health Worker 07/05/20 09/03/20 JAY JAY documented as of this encounter
--- OUTSIDE RECORDS SUMMARY | 2022-08-21 16:58 | XMS_ITS | Encounter Summary ---
:1960 Author Organization [place] Address [address] [place] [address] Care Team Providers Name Role Phone Teresita Garcia MD Primary Care Provider Teresita Garcia MD Unavailable Reason for Referral Care Coordination (Routine) - Closed Specialty Diagnoses / Procedures Referred By Contact Refer red To Contact Diagnoses Encounter for Medicare [place] [address] [place] [address] Referral ID Status Reason Start Date Expiration Date Visits Requ ested Visits Authorized [id number] Closed 06/26/2020 06/26/2021 1 1 atient Education (Routine) - Closed Specialty Diagnoses / Procedures Referred By Contact Refer red To Contact Diagnoses Advanced directives, counseling/discussion Teresita Garcia MD [facility] [address] [address] Phone: Referral ID Status Reason Start Date Expiration Date Visits Requ ested Visits Authorized [id number] Closed 06/26/2020 06/26/2021 1 1 Reason for Visit Reason Comments Wellness Visit Encounter Details Date Type Department Care Team Description 06/26/2020 Virtual Visit [facility] Teresita Garcia MD Advanced directives, counseling/discussi on (Primary Dx); Clinic [place] [address] [address] Need for shingles vaccine; [address] [place], [place] Encounter for Medicare gatoua l wellness exam; [place] [address] MS (multiple sclerosis) (H) [phone] Social History [...] do you attend druze or Not asked anglican services? Do you [...] 2-3 years. Lab review: No concerns per field reviewer MyChart Patient is active on MyChart. although does not appear that he has ever used Specialty Visits - Multiple [facility] and visits available in [facility], [place] Urology 04/12/2020. Neurology 05/08/2020, Cystoscopy 06/19/2020 bladder stones Patient preferred phone number: [phone] Health Maintenance Due Topic Date Due ??? ADVANCE CARE PLANNING 1960 ??? MEDICARE ANNUAL WELLNESS VISIT 12/15/1979 ??? ZOSTER IMMUNIZATION (1 of 2) 12/15/2011 ??? PHQ-9 06/03/2020 Blanca Choi, Registered Nurse, MEG (Patient Advocate Liason) [facility] [phone] Teresita Garcia MD - 06/26/2020 1:00 PM [...] be resent to: Text to cell phone: [phone] Will anyone else be joining your video visit? No Subjective Dejuan Rodriguez is a 59 year old male who presents today via video visit for the following healthissues: Future Appointments Date Time Provider Department Center 06/26/2020 1:00 PM Teresita Garcia MD [facility] Appointment Notes for this [...] visit; need for additional assessment in future qkxg-md-iahg visit Do you have sleep apnea, excessive [...] versa, the whole house is equipped with OndaVia device so if he jordy the floor, he can call throw OndaVia device. In regards to his mood, he [...] following up with Neurology. Teresita Garcia MD [facility] Video-Visit Details Type of service: Video Visit Video End Time:1:33 Originating Location (pt. Location): Home Distant Location (provider location): [facility] Platform used for Video Visit: Ty documented in this encounter Plan of Treatment [...] documented as of this encounter Care Teams Moshgiach Relationship Specialty Start Date End Date Teresita Garcia MD PCP - General Family Practice 01/22/11 [address] [place] [address] Teresita Garcia MD Assigned PCP 11/16/16 12/28/21 [address] [place] [address] documented as of this encounter
--- OUTSIDE RECORDS SUMMARY | 2022-08-21 16:58 | XMS_ITS | Encounter Summary ---
:1960 Author Organization [place] Address [facility] [place] [address] Care Team Providers Name Role Phone Teresita Garcia MD Primary Care Provider Teresita Garcia MD Unavailable Reason for Visit Reason Onset Date Comments Forms 05/25/2020 orders Encounter Details Date Type Department Care Team Description 05/25/2020 Telephone [facility] Roel Garcia MD Forms (orders) [id number] [place] [address] [place] [address] [phone] Social History Tobacco Use Types Packs/Day Years [...] do you attend taoist or Not asked presybeterian services? Do you [...] 05/25/2020 1:26 PM CDT Faxed Brooklyn Ogden/ Export Coordinator Telephone Encounter - Brooklyn Ogden - 05/25/2020 [...] clinic location was the form placed at?: [facility] Where the form was placed: Dr Garcia Box/Folder What number is listed as a contact on the form?: [phone] Additional comments: please sign / date and fax to [phone] Call taken on 05/25/2020 at 9:12 AM by Brooklyn Ogden documented in this encounter Plan of Treatment Not on filedocumented as of this encounter Visit Diagnoses Not on filedocumented in this encounter Additional Health Concerns Assessment Noted Time PHQ-9 Depression Total Score: 8 12/02/2019 2:02 PM WOOD FLOUR MILLER documented as of this encounter Care Teams Doctor Of Podiatric Medicine Relationship Specialty Start Date End Date Teresita Garcia MD PCP - General Family Practice 01/22/11 [address] [place] [address] Teresita Garcia MD Assigned PCP 11/16/16 12/28/21 [address] [place] [address] documented as of this encounter
--- OUTSIDE RECORDS SUMMARY | 2022-08-21 16:58 | XMS_ITS | Encounter Summary ---
:1960 Author Organization [place] Address [address] [facility] [place] [address] Care Team Providers Name Role Phone Teresita Garcia MD Primary Care Provider Teresita Garcia MD Unavailable Encounter Details Date Type Department Care Team Description 06/19/2020 Hospital Encounter [facility] MD ayah Bladder stones [facility] [address] [place] [address] [place], [place] [phone] Social History Tobacco Use Types Packs/Day [...] do you attend zoroastrian or Not asked synagogue services? Do you [...] ride documented in this encounter H&P Notes aDx Menon MD - 06/19/2020 11:21 AM CDT [...] Date of surgery: 06/19/20 Place of Surgery: [facility] Surgeon: Dax Menon MD Anesthesia: General Preoperative diagnosis: 1. Multiple sclerosis 2. Neurogenic bladder 3. Bladder stones Postoperative diagnosis: 1. Multiple sclerosis 2. Neurogenic bladder 3. Bladder stones Procedure: 1. Cystoscopy 2. Cystolitholapaxy with holmium laser lithotripsy 3. Intravesical Botox injection Drains: 18 [place] silicone Valenzuela catheter Specimens: Bladder stones Estimated [...] posterior wall and trigone. A 18 [address] [place] silicone Valenzuela was then inserted and placed [...] Size Various mm 06/25/2020 2:30 PM CDT [facility] Calculi Description See Note 06/25/2020 2:30 PM C DT [facility] Comment: Specimen received wet, not the preferred dry state. Wet specimens often delay analysis. Specimen consists of numerous, various s ized (some larger than 9 mm), fam/light fam, irregular calculi fragmen ts. Stone Composition See Note 06/25/2020 2:30 PM CDT [facility] Comment: Calculi composed primarily of: 30% magnesium ammonium phosphate (struvi te), and 70% calcium phosphate (hydroxy- and carb ittus- apatite). INTERPRETIVE INFORMATION: Calculi (Stone ) analysis Calculi are the products of physiologica l processes that yield crystalline compounds in a matrix of bio logical compounds and blood. ??Matrix components are not repor hanna. ??The clinically significant crystalline components ident ified in calculi specimens are reported. ??Gross description may no t be consistent with composition determined by FTIR analysis. Performed By: [facility] [address] [place] [address] E Learning Manager: Iona Lauren MD Specimen Anatomical Collection Method Collection Time Receive d Time (Source) Location / / Volume Laterality Calculus URINARY BLADDER 06/19/2020 1:53 PM 2019 3:09 specimen STRUCTURE / CDT PM CDT (specimen) Unknown Dax Menon MD LAB - BODY FLUIDS ORDERABLES Performing Organization Address City/State/ZIP Code Phon e Number Tier [address] [place], [place] [phone] [address] [facility] [address] [facility] [address] [place] [address] documented in this encounter Visit Diagnoses Diagnosis Bladder stones Other calculus in bladder documented in this encounter Additional Health Concerns Assessment Noted Time PHQ-9 Depression Total Score: 8 12/02/2019 2:02 PM STUDENT documented as of this encounter Care Teams Glass Smoother Relationship Specialty Start Date End Date Teresita Garcia MD PCP - General Family Practice 01/22/11 [address] [place] [address] Teresita Garcia MD Assigned PCP 11/16/16 12/28/21 [address] [place], [place] [id number] documented as of this encounter
--- OUTSIDE RECORDS SUMMARY | 2022-08-21 16:58 | XMS_ITS | Encounter Summary ---
:1960 Author Organization [place] Address [facility] [place] [address] Care Team Providers Name Role Phone Teresita Garcia MD Primary Care Provider Teresita Garcia MD Unavailable Reason for Visit Reason Comments Medication Refill Encounter Details Date Type Department Care Team Description 05/27/2020 Refill [facility] Roel Garcia MD Medication Refill [place] [address] [place] [address] [place], [place] [address] [place] [address] 24-7283 [phone] Social History Tobacco Use Types Packs/Day Years [...] do you attend taoism or Not asked caodaism services? Do you [...] encounter Miscellaneous Notes Telephone Encounter - Haily Adams RN - 05/29/2020 7:56 AM CDT Prescription approved per [facility] Refill Protocol. Haily Adams RN documented in this encounter Plan of Treatment Not on filedocumented as of this encounter Visit Diagnoses Diagnosis Seborrheic dermatitis of scalp - Primary Other seborrheic dermatitis Osteoporosis, unspecified osteoporosis t ype, unspecified pathological fracture presence documented in this encounter Additional Health Concerns Assessment Noted Time PHQ-9 Depression Total Score: 8 12/02/2019 2:02 PM NUCLEAR LOGGING ENGINEER documented as of this encounter Care Teams Plaster Foreman Relationship Specialty Start Date End Date Teresita Garcia MD PCP - General Family Practice 01/22/11 [address] [place], [place] [phone] Teresita Garcia MD Assigned PCP 11/16/16 12/28/21 [address] [place], [place] [id number] documented as of this encounter
--- OUTSIDE RECORDS SUMMARY | 2022-08-21 16:58 | XMS_ITS | Encounter Summary ---
:1960 Author Organization [place] Address [facility] [place] [address] Care Team Providers Name Role Phone Teresita Garcia MD Primary Care Provider Teresita Garcia MD Unavailable Dolores Caputo SKI PATROLLER Unavailable Letha Vasquez MA Unavailable Encounter Details Date Type Department Care Team Description 06/15/2020 Amb[facility] - [facility] Estefani Figueroa screeni for other Laboratory viral diseases [address] [facility], [address] [place] [address] Social History Tobacco Use Types [...] do you attend uatsdin or Not asked yazdanism services? Do you [...] Depression Total Score: 8 12/02/2019 2:02 PM OUTREACH ASSOCIATE documented as of this encounter Care Teams Apron Cleaner Relationship Specialty Start Date End Date Teresita Garcia MD PCP - General Family Practice 01/22/11 [address] [place], [place] [phone] Teresita Garcia MD Assigned PCP 11/16/16 12/28/21 [address] [place], [place] [phone] Dolores Caputo, SKI PATROLLER Lead Apple Packing Header Primary Care - CC 06/27/20 09/03/20 Letha Vasquez, Community Health Worker 07/05/20 09/03/20 JAY JAY documented as of this encounter
--- OUTSIDE RECORDS SUMMARY | 2022-08-21 16:58 | XMS_ITS | Encounter Summary ---
:1960 Author Organization [place] Address [facility] [place] [address] Care Team Providers Name Role Phone Teresita Garcia MD Primary Care Provider Teresita Garcia MD Unavailable Encounter Details Date Type Department Care Team Description 05/25/2020 Medical Correspondence [facility] Scan, PLAN OF CARE Health Info Mgmt Non-Provider 03/20/20 - [facility] [address] [place] [address]/[place] [address] Social History Tobacco Use Types [...] do you attend sabianism or Not asked mormon services? Do you [...] Depression Total Score: 8 12/02/2019 2:02 PM COUNCIL MEMBER documented as of this encounter Care Teams Bulk Sealer Relationship Specialty Start Date End Date Teresita Garcia MD PCP - General Family Practice 01/22/11 [address] [place], [place] [phone] Teresita Garcia MD Assigned PCP 11/16/16 12/28/21 [address] [place], [place] [phone] documented as of this encounter
--- OUTSIDE RECORDS SUMMARY | 2022-08-21 16:58 | XMS_ITS | Encounter Summary ---
:1960 Author Organization [place] Address [address] [facility] [place] [address] Care Team Providers Name Role Phone Teresita Garcia MD Primary Care Provider Teresita Garcia MD Unavailable Dolores Caputo FIELD SERVICE SUPERVISOR Unavailable Letha Vasquez MA Unavailable Reason for Visit Reason Onset Date Comments Orders 07/27/2020 [facility] Encounter Details Date Type Department Care Team Description 07/27/2020 Telephone [facility] Teresita Garcia MD Orders ([facility] [address]) [address] [place] [address] [phone] Social History Tobacco Use Types Packs/Day [...] do you attend evangelical or Not asked congregational services? Do you [...] PM CST Signed orders faxed. Malena Hankins Lumber Piler Operator EP MECHANIC Telephone Encounter - Malena Hankins - 07/27/2020 9:13 AM CDT Recd 6 page fax from [employer]. Please sign orders and fax to [phone]. Form in AA folder at [facility]. Malena Hankins Lumber Piler Operator documented in this encounter Plan of Treatment Not on filedocumented as of this encounter Visit Diagnoses Not on filedocumented in this encounter Additional Health Concerns Assessment Noted Time PHQ-9 Depression Total Score: 8 06/26/2020 12:57 PM CD T documented as of this encounter Care Teams Chip Person Relationship Specialty Start Date End Date Teresita Garcia MD PCP - General Family Practice 01/22/11 [address] [place] [address] Teresita Garcia MD Assigned PCP 11/16/16 12/28/21 [address] [place] [address] Dolores Caputo, PATEL Lead Aluminum Sheet Cutter Primary Care - CC 06/27/20 09/03/20 Letha Vasquez, Community Health Worker 07/05/20 09/03/20 MA documented as of this encounter
--- OUTSIDE RECORDS SUMMARY | 2022-08-21 16:58 | XMS_ITS | Encounter Summary ---
:1960 Author Organization [place] Address [address] [place] [address] Care Team Providers Name Role Phone Teresita Garcia MD Primary Care Provider Teresita Garcia MD Unavailable Dolores Caputo OBSTETRICS GYNECOLOGY MD Unavailable Letha Vasquez MA Unavailable Reason for Visit Reason Onset Date Comments Forms 07/25/2020 Physician Order Encounter Details Date Type Department Care Team Description 07/25/2020 Telephone [facility] Teresita Garcia MD Forms (Physician Order) Clinic [address] [phone] Social History Tobacco Use Types Packs/Day [...] do you attend protestant or Not asked sabianist services? Do you [...] complete. Form in the in- basket at [facility] in AA's folder. documented in this encounter Plan of Treatment Not on filedocumented as of this encounter Visit Diagnoses Not on filedocumented in this encounter Additional Health Concerns Assessment Noted Time PHQ-9 Depression Total Score: 8 06/26/2020 12:57 PM CD T documented as of this encounter Care Teams Street Engineer Relationship Specialty Start Date End Date Teresita Garcia MD PCP - General Family Practice 01/22/11 [address] [place] [address] Teresita Garcia MD Assigned PCP 11/16/16 12/28/21 [address] [place] [address] Dolores Caputo, OBSTETRICS GYNECOLOGY MD Lead Fruit Harvester Machine Operator Primary Care - CC 06/27/20 09/03/20 Letha Vasquez, Community Health Worker 07/05/20 09/03/20 JAY JAY documented as of this encounter
--- OUTSIDE RECORDS SUMMARY | 2022-08-21 16:58 | XMS_ITS | Encounter Summary ---
:1960 Author Organization [place] Address [address] [facility] [place] [address] Care Team Providers Name Role Phone Teresita Garcia MD Primary Care Provider Teresita Garcia MD Unavailable Dolores Caputo SYSTEMS SOFTWARE DESIGNER Unavailable Letha Vasquez MA Unavailable Audrey Hickman MD Unavailable [phone] Reason for Visit Reason Comments Medication Refill Encounter Details Date Type Department Care Team Description 08/23/2020 Refill [facility] Roel Garcia MD Medication Refill [id number] [place] [address] [place] [address] [phone] Social History Tobacco Use Types Packs/Day Years [...] do you attend rastafari or Not asked muslim services? Do you [...] Kirstin Mejia, RN - 08/24/2020 10:49 AM CUSTOMER EXPERT Patient has refills remaining with requesting pharmacy. Kirstin Vail - Registered Nurse [facility] OMER EXPERT documented in this encounter Plan of Treatment Not on filedocumented as of this encounter Visit Diagnoses Diagnosis Osteoporosis, unspecified osteoporosis t ype, unspecified pathological fracture presence documented in this encounter Additional Health Concerns Assessment Noted Time PHQ-9 Depression Total Score: 8 06/26/2020 12:57 PM CD T documented as of this encounter Care Teams Computer Forensics Analyst Relationship Specialty Start Date End Date Teresita Garcia MD PCP - General Family Practice 01/22/11 [address] [place] [address] Teresita Garcia MD Assigned PCP 11/16/16 12/28/21 [address] [place] [address] Dolores Caputo, SYSTEMS SOFTWARE DESIGNER Lead Mill Operator Head Primary Care - CC 06/27/20 09/03/20 Letha Vasquez, Community Health Worker 07/05/20 09/03/20 MA Audrey Hickman Assigned PCP 12/29/21 MD Bernie [address] [place], [place] [phone] documented as of this encounter
--- OUTSIDE RECORDS SUMMARY | 2022-08-21 16:58 | XMS_ITS | Encounter Summary ---
:1960 Author Organization [place] Address [address] [facility] [place] [address] Care Team Providers Name Role Phone Teresita Garcia MD Primary Care Provider Teresita Garcia MD Unavailable Dolores Caputo LEAD RELAY TESTER Unavailable Letha Vasquez MA Unavailable Encounter Details Date Type Department Care Team Description 07/18/2020 Communication - [place] [facility] Scheduling JERRI Diaz [address] [place] [address] Social History Tobacco Use Types [...] do you attend adventism or Not asked protestant services? Do you [...] documented as of this encounter Care Teams Personal Computer Network Engineer Relationship Specialty Start Date End Date Teresita Garcia MD PCP - General Family Practice 01/22/11 [address] [place], [place] [phone] Teresita Garcia MD Assigned PCP 11/16/16 12/28/21 [address] [place], [place] [phone] Dolores Caputo, LEAD RELAY TESTER Lead Rolling Attendant Primary Care - CC 06/27/20 09/03/20 Letha Vasquez, Community Health Worker 07/05/20 09/03/20 [place] documented as of this encounter
--- OUTSIDE RECORDS SUMMARY | 2022-08-21 16:58 | XMS_ITS | Encounter Summary ---
:1960 Author Organization [place] Address [address] [place] [address] Care Team Providers Name Role Phone Teresita Garcia MD Primary Care Provider Teresita Garcia MD Unavailable Encounter Details Date Type Department Care Team Description 06/13/2020 Medical Correspondence [facility] Scan, PLAN OF CARE [employer] [facility] Non-Provider [facility] Sr[facility] [address] [place] [address] Social History Tobacco Use Types [...] or relatives? How often do you attend oriental orthodox or Not asked buddhist services? Do you belong to any clubs or Not asked organizations such as oriental orthodox groups, unions, fraternal or athletic groups, [...] Depression Total Score: 8 12/02/2019 2:02 PM EDITOR SOUND documented as of this encounter Care Teams Regional Commercial Sales Manager Relationship Specialty Start Date End Date Teresita Garcia MD PCP - General Family Practice 01/22/11 [address] [place], [place] [phone] Teresita Garcia MD Assigned PCP 11/16/16 12/28/21 [address] [place] [address] documented as of this encounter
--- OUTSIDE RECORDS SUMMARY | 2022-08-21 16:58 | XMS_ITS | Encounter Summary ---
:1960 Author Organization [place] Address [address] [facility] [place] [address] Care Team Providers Name Role Phone Teresita Garcia MD Primary Care Provider Teresita Garcia MD Unavailable Dolores Caputo ATTORNEY GENERAL Unavailable Letha Vasquez MA Unavailable Encounter Details Date Type Department Care Team Description 06/17/2020 Communication - [place] Centralized [facility] Scheduling JERRI Diaz [address] [place] [address] Social History Tobacco Use Types [...] do you attend temple or Not asked jewish services? Do you [...] Depression Total Score: 8 12/02/2019 2:02 PM MEDICAL DEVICE SALES CONSULTANT documented as of this encounter Care Teams Brokerage Coordinator Relationship Specialty Start Date End Date Teresita Garcia MD PCP - General Family Practice 01/22/11 [address] [place], [place] [phone] Teresita Garcia MD Assigned PCP 11/16/16 12/28/21 [address] [place], [place] [phone] Dolores Caputo, ATTORNEY GENERAL Lead Assembler Crimper Primary Care - CC 06/27/20 09/03/20 Letha Vasquez, Community Health Worker 07/05/20 09/03/20 MA documented as of this encounter
--- OUTSIDE RECORDS SUMMARY | 2022-08-21 16:58 | XMS_ITS | Encounter Summary ---
:1960 Author Organization [place] Address [address] [facility] [place] [address] Care Team Providers Name Role Phone Teresita Garcia MD Primary Care Provider Teresita Garcia MD Unavailable Dolores Caputo RADIATION THERAPIST Unavailable Letha Vasquez MA Unavailable Encounter Details Date Type Department Care Team Description 06/19/[address] [facility] [address] [place] [address] 102 [phone] [place], [place] [phone] (Wo rk) Social History Tobacco Use [...] do you attend yazdanism or Not asked adventism services? Do you [...] Depression Total Score: 8 12/02/2019 2:02 PM POULTRY CUTTER documented as of this encounter Care Teams Channel Opener Outsoles Relationship Specialty Start Date End Date Teresita Garcia MD PCP - General Family Practice 01/22/11 [address] [place], [place] [phone] Teresita Garcia MD Assigned PCP 11/16/16 12/28/21 [address] [place] [address] Dolores Caputo, RADIATION THERAPIST Lead Baseball Winder Primary Care - CC 06/27/20 09/03/20 Letha Vasquez, Community Health Worker 07/05/20 09/03/20 MA documented as of this encounter
--- OUTSIDE RECORDS SUMMARY | 2022-08-21 16:59 | XMS_ITS | Encounter Summary ---
:1960 Author Organization [place] Address Formerly [facility] [place] [address] Care Team Providers Name Role Phone Teresita Garcia MD Primary Care Provider Teresita Garcia MD Unavailable Reason for Visit Reason Onset Date Comments Forms 02/14/2020 Plan of Care Encounter Details Date Type Department Care Team Description 02/14/2020 Telephone [facility] Roel Garcia MD Forms (Plan of Care) [id number] [place] [phone] Social History Tobacco Use Types Packs/Day Years [...] do you attend judaism or Not asked religion services? Do you [...] fax for Plan of Care for Dr Garica to complete. Form in the in- basket at [facility] in 's folder. documented in this encounter Plan of Treatment Not on filedocumented as of this encounter Visit Diagnoses Not on filedocumented in this encounter Additional Health Concerns Assessment Noted Time PHQ-9 Depression Total Score: 8 12/02/2019 2:02 PM GUEST SERVICE AGENT documented as of this encounter Care Teams Acquisitions Assistant Relationship Specialty Start Date End Date Teresita Garcia MD PCP - General Family Practice 01/22/11 [address] [place], [place] [phone] Teresita Garcia MD Assigned PCP 11/16/16 12/28/21 [address] [place] [address] documented as of this encounter
--- OUTSIDE RECORDS SUMMARY | 2022-08-21 16:59 | XMS_ITS | Encounter Summary ---
:1960 Author Organization [place] Address [address] [place] [address] Care Team Providers Name Role Phone Teresita Garcia MD Primary Care Provider Teresita Garcia MD Unavailable Encounter Details Date Type Department Care Team Description 12/08/2019 Medical Correspondence [facility] Scan, PLAN [facility] CARE [facility] CLINICS [address] [place] [address] Social History Tobacco Use Types [...] do you attend tenriism or Not asked buddhism services? Do you [...] Depression Total Score: 8 12/02/2019 2:02 PM CASHIER TUBE ROOM documented as of this encounter Care Teams Aerial Photographer Relationship Specialty Start Date End Date Teresita Garcia MD PCP - General Family Practice 01/22/11 [address] [place] [address] Teresita Garcia MD Assigned PCP 11/16/16 12/28/21 [address] [place] [address] documented as of this encounter
--- OUTSIDE RECORDS SUMMARY | 2022-08-21 16:59 | XMS_ITS | Encounter Summary ---
:1960 Author Organization [place] Address [address] [facility] [place] [address] Care Team Providers Name Role Phone Teresita Garcia MD Primary Care Provider Teresita Garcia MD Unavailable Encounter Details Date Type Department Care Team Description 03/12/2020 Medical Correspondence [facility] [place] Scan, ORDERS [facility] Health Info Mgmt Non-Provider HEALTH/HOSP ICE Srv[facility] [address] [place] [address] Social History Tobacco Use Types [...] do you attend spiritism or Not asked samaritan services? Do you [...] Depression Total Score: 8 12/02/2019 2:02 PM CIRCUIT BREAKER ASSEMBLER documented as of this encounter Care Teams Motor Expert Relationship Specialty Start Date End Date Teresita Garcia MD PCP - General Family Practice 01/22/11 [address] [place], [place] [phone] Teresita Garcia MD Assigned PCP 11/16/16 12/28/21 [address] [place], [place] [phone] documented as of this encounter
--- OUTSIDE RECORDS SUMMARY | 2022-08-21 16:59 | XMS_ITS | Encounter Summary ---
:1960 Author Organization [place] Address [address] [facility] [place] [address] Care Team Providers Name Role Phone Teresita Garcia MD Primary Care Provider Teresita Garcia MD Unavailable Encounter Details Date Type Department Care Team Description 01/30/2020 Medical Correspondence [facility] Scan, PLAN OF CARE [email or web address] [facility] Non-Provider HOME HEALTH /HOSPICE Srvcs [address] [place] [address] Social History Tobacco Use Types [...] do you attend evangelical or Not asked moravian services? Do you [...] Depression Total Score: 8 12/02/2019 2:02 PM TIPPLE BOSS documented as of this encounter Care Teams Neurophysiologist Relationship Specialty Start Date End Date Teresita Garcia MD PCP - General Family Practice 01/22/11 [address] [place], [place] [phone] Teresita Garcia MD Assigned PCP 11/16/16 12/28/21 [address] [place], [place] [phone] documented as of this encounter
--- OUTSIDE RECORDS SUMMARY | 2022-08-21 16:59 | XMS_ITS | Encounter Summary ---
:1960 Author Organization [place] Address [address] [facility] [place] [address] Care Team Providers Name Role Phone Teresita Garcia MD Primary Care Provider Terestia Garcia MD Unavailable Encounter Details Date Type Department Care Team Description 03/04/2020 Medical Correspondence [facility] [place] Scan, HOME HEALTH VISIT Health Info Mgmt Non-Provider [facility] ITALS Srvcs AND CLINICS [address] [place] [address] Social History Tobacco Use Types Packs/Day [...] do you attend hindu or Not asked evangelical services? Do you [...] Depression Total Score: 8 12/02/2019 2:02 PM COIL MACHINE SUPERVISOR documented as of this encounter Care Teams Undercover Agent Relationship Specialty Start Date End Date Teresita Garcia MD PCP - General Family Practice 01/22/11 [address] [place] [address] Teresita Garcia MD Assigned PCP 11/16/16 12/28/21 [address] [place], [place] [phone] documented as of this encounter
--- OUTSIDE RECORDS SUMMARY | 2022-08-21 16:59 | XMS_ITS | Encounter Summary ---
:1960 Author Organization [place] Address [address] [facility] [place] [address] Care Team Providers Name Role Phone Teresita Garcia MD Primary Care Provider Teresita Garcia MD Unavailable Reason for Referral Diagnostic Imaging Dexa (Routine) - Closed Specialty Diagnoses / Procedures Referred By Contact Refer red To Contact Diagnoses Osteoporosis without current pathological fracture, unspecified osteoporosis type Teresita Garcia MD Procedures DX Hip/Pelvis/Spine [address] [place], [place] [address] Referral ID Status Reason Start Date Expiration Date Visits Requ ested Visits Authorized [id number] Closed 12/03/2019 12/02/2020 1 1 ONAL PROJECT MANAGER Reason for Visit Reason Onset Date Comments Radiology Visit 12/02/2019 need for Encounter Details Date Type Department Care Team Description 12/02/2019 Telephone [facility] Teresita Garcia MD Radiology Visit (need [facility] [place] [id number] [place] [address] for) [address] [place] [phone] Social History Tobacco Use Types Packs/Day Years [...] do you attend mu-ism or Not asked zoroastrian services? Do you belong to any clubs or Not asked organizations such as mu-ism groups, unions, [employer] or athletic groups, or school groups? How [...] Thursday. Order t'd up. Joselin Najera RN ONAL PROJECT MANAGER Telephone Encounter - Teresita Garcia MD - 12/02/2019 3:03 PM CST I looked at the records and last Dexa scan I've seen was in 12/2016, so it is not a bad idea to repeat his Dexa scan this year, if he is ok with it. Teresita Garcia MD [facility] [phone] ONAL PROJECT MANAGER documented in this encounter Plan of Treatment Not on filedocumented as of this encounter Results DX Hip/Pelvis/Spine (04/04/2020 1:36 PM CDT) Anatomical Region Laterality Modality Dexa Bone Mineral Density Specimen (Source) Anatomical Location Collection Method / Collectio n Time Received Time / Laterality Volume Narrative 04/06/2020 1:21 PM CDT BONE DENSITOMETRY [address] [address] 04/04/2020 ?? PATIENT: Dejuan Rodriguez CHART: [id number] : ??1960 AGE: ??59 year old SEX: ??male REFERRING PROVIDER: Teresita Garcia MD ?? PROCEDURE: ??Bone density scanning was p erformed using DXA technology of the lumbar spine and hip. ??Scanning was performed on a BitTorrent scanner. ??Reporting is completed in the form of a T-score. ??The T-score represents the standard deviation from p eak bone mass based on a young healthy adult. ?? REFERENCE T-SCORES: ?Normal ?-1.0 and greater ?Osteopenia ? Between -1. 0 and -2.5 ?Osteoporosis ? -2.5 and less ? RISK FACTORS: ??Post-menopausal, Parent history of osteoporosis with a hip fracture, long term corticosteroid thera py CURRENT TREATMENT: ??Calcium, Fosamax [...] Depression Total Score: 8 12/02/2019 2:02 PM REGIONAL PROJECT MANAGER documented as of this encounter Care Teams Show Dog Trainer Relationship Specialty Start Date End Date Teresita Garcia MD PCP - General Family Practice 01/22/11 [address] [place], [place] [phone] Teresita Garcia MD Assigned PCP 11/16/16 12/28/21 [address] [place], [place] [phone] documented as of this encounter
--- OUTSIDE RECORDS SUMMARY | 2022-08-21 16:59 | XMS_ITS | Encounter Summary ---
:1960 Author Organization [place] Address [address] [place] [address] Care Team Providers Name Role Phone Teresita Garcia MD Primary Care Provider Teresita Garcia MD Unavailable Encounter Details Date Type Department Care Team Description 03/15/2020 Medical Correspondence [facility] Scan, [facility] Health Info Mgmt Non-Provider COMMUNICATI ON NOTE Srvcs [facility] [address] [facility] [address] Social History Tobacco Use Types [...] do you attend temple or Not asked anabaptism services? Do you [...] Depression Total Score: 8 12/02/2019 2:02 PM BILLING ADJUDICATOR documented as of this encounter Care Teams Traveling Inventory Associate Relationship Specialty Start Date End Date Teresita Garcia MD PCP - General Family Practice 01/22/11 [address] [place], [place] [phone] Teresita Garcia MD Assigned PCP 11/16/16 12/28/21 [address] [place], [place] [phone] documented as of this encounter
--- OUTSIDE RECORDS SUMMARY | 2022-08-21 16:59 | XMS_ITS | Encounter Summary ---
:1960 Author Organization [place] Address [address] [place] [address] Care Team Providers Name Role Phone Teresita Garcia MD Primary Care Provider Teresita Garcia MD Unavailable Encounter Details Date Type Department Care Team Description 12/05/2019 Medical Correspondence [facility] [place] Scan, HOME VISIT ORDER Health Info Mgmt Non-Provider [facility] Srvcs HEALTH/HOSPICE [address] [place] [address] Social History Tobacco Use Types [...] do you attend catholic or Not asked anabaptism services? Do you [...] Depression Total Score: 8 12/02/2019 2:02 PM LAND SURVEYOR MANAGER documented as of this encounter Care Teams Director Of Employer Services Relationship Specialty Start Date End Date Teresita Garcia MD PCP - General Family Practice 01/22/11 [address] [place] [address] Teresita Garcia MD Assigned PCP 11/16/16 12/28/21 [address] [place] [address] documented as of this encounter
--- OUTSIDE RECORDS SUMMARY | 2022-08-21 16:59 | XMS_ITS | Encounter Summary ---
:1960 Author Organization [place] Address [address] [place] [address] Care Team Providers Name Role Phone Teresita Garcia MD Primary Care Provider Teresita Garcia MD Unavailable Reason for Visit Reason Onset Date Comments Forms 11/25/2019 Additional Orders-Ph ysical Therapy Encounter Details Date Type Department Care Team Description 11/25/2019 Telephone [facility] Teresita Garcia MD Forms (Additional Clinic [place] [id number] [place] [address] Orders-Physical [address] [place], [place] Therapy) [place], [place] [phone] Social History Tobacco Use Types Packs/Day [...] Form completed and faxed, 11/28/2019 ,Jackie Brito/AWILDA DING CLEANING SUPERVISOR Telephone Encounter - Rosy Brito - 11/25/2019 8:12 AM CST Received 2 page fax for Additional Orders-Physical Therapy for Dr Garcia to complete. Form in the in-basket at [facility] in AA's folder. DING CLEANING SUPERVISOR documented in this encounter Plan of Treatment Not on filedocumented as of this encounter Visit Diagnoses Not on filedocumented in this encounter Additional Health Concerns Assessment Noted Time PHQ-9 Depression Total Score: 5 11/25/2018 3:25 PM BUILDING CLEANING SUPERVISOR documented as of this encounter Care Teams Experimental Assembler Relationship Specialty Start Date End Date Teresita Garcia MD PCP - General Family Practice 01/22/11 [address] [place] [address] Teresita Garcia MD Assigned PCP 11/16/16 12/28/21 [address] [place] [address] documented as of this encounter
--- OUTSIDE RECORDS SUMMARY | 2022-08-21 16:59 | XMS_ITS | Encounter Summary ---
:1960 Author Organization [place] Address [address] [place] [address] Care Team Providers Name Role Phone Teresita aGrcia MD Primary Care Provider Teresita Garcia MD Unavailable Reason for Visit Reason Onset Date Comments Forms 03/16/2020 Physician Order Encounter Details Date Type Department Care Team Description 03/16/2020 Telephone [facility] Teresita Garcia MD Forms (Physician Order) Clinic [phone] [place] [phone] Social History Tobacco Use Types Packs/Day [...] do you attend amish or Not asked catholic services? Do you [...] Form in the in- basket at [facility] in AA's folder. documented in this encounter Plan of Treatment Not on filedocumented as of this encounter Visit Diagnoses Not on filedocumented in this encounter Additional Health Concerns Assessment Noted Time PHQ-9 Depression Total Score: 8 12/02/2019 2:02 PM STOCKROOM SELECTOR documented as of this encounter Care Teams Early Childhood Worker Relationship Specialty Start Date End Date Teresita Garcia MD PCP - General Family Practice 01/22/11 [address] [place], [place] [phone] Teresita Garcia MD Assigned PCP 11/16/16 12/28/21 [address] [place], [place] [phone] documented as of this encounter
--- OUTSIDE RECORDS SUMMARY | 2022-08-21 16:59 | XMS_ITS | Encounter Summary ---
:1960 Author Organization [place] Address [address] [facility] [place] [address] Care Team Providers Name Role Phone Teresita Garcia MD Primary Care Provider Teresita Garcia MD Unavailable Encounter Details Date Type Department Care Team Description 01/17/2020 Medical Correspondence [facility] Scan, PLAN OF CARE [facility] Non-Provider HOME HEALTH /HOSPICE Srvcs [address] [place] [address] Social History Tobacco Use Types [...] do you attend baptist or Not asked restorationism services? Do you [...] Depression Total Score: 8 12/02/2019 2:02 PM PRECISION MECHANICAL INSTRUMENT MAKER documented as of this encounter Care Teams Child Support Investigator Relationship Specialty Start Date End Date Teresita Garcia MD PCP - General Family Practice 01/22/11 [address] [place], [place] [phone] Teresita Garcia MD Assigned PCP 11/16/16 12/28/21 [address] [place], [place] [phone] documented as of this encounter
--- OUTSIDE RECORDS SUMMARY | 2022-08-21 16:59 | XMS_ITS | Encounter Summary ---
:1960 Author Organization [place] Address [address] [facility] [place] [address] Care Team Providers Name Role Phone Teresita Garcia MD Primary Care Provider Teresita Garcia MD Unavailable Reason for Visit Reason Onset Date Comments Forms 11/30/2019 Durable Medical Equi pment Encounter Details Date Type Department Care Team Description 11/30/[address] [facility] Teresita Garcia MD Forms ([facility] [place] [address] Equipment) [address] [place], [place] [phone] Social History Tobacco Use Types Packs/Day [...] do you attend alevism or Not asked church services? Do you [...] Form faxed, 11/30/2019 Jackie Brito/AWILDA CTOR OF CORPORATE STRATEGY Telephone Encounter - Rosy Brito - 11/30/2019 9:23 AM CST Received 2 page fax for Durable Medical Equipment for Dr Garcia to complete. Form in the in-basket at [facility] in AA's folder. CTOR OF CORPORATE STRATEGY documented in this encounter Plan of Treatment Not on filedocumented as of this encounter Visit Diagnoses Not on filedocumented in this encounter Additional Health Concerns Assessment Noted Time PHQ-9 Depression Total Score: 5 11/25/2018 3:25 PM DIRECTOR OF CORPORATE STRATEGY documented as of this encounter Care Teams Warehouse Clerk Relationship Specialty Start Date End Date Teresita Garcia MD PCP - General Family Practice 01/22/11 [address] [place] [address] Teresita Garcia MD Assigned PCP 11/16/16 12/28/21 [address] [place], [place] [phone] documented as of this encounter
--- OUTSIDE RECORDS SUMMARY | 2022-08-21 16:59 | XMS_ITS | Encounter Summary ---
:1960 Author Organization [place] Address Formerly [facility] [place] [address] Care Team Providers Name Role Phone Teresita Garcia MD Primary Care Provider Teresita Garcia MD Unavailable Reason for Visit Reason Onset Date Comments Orders 12/07/2019 [facility] Encounter Details Date Type Department Care Team Description 12/07/2019 Telephone [facility] Teresita Garcia MD Orders ([facility] [place] [id number] [place] [address]) [id number] [place] [phone] Social History Tobacco Use Types Packs/Day [...] do you attend confucianist or Not asked yazidi services? Do you [...] PM CDT Recd 4 page [facility]. Please sign orders and fax to [phone]. Form in AA folder at [place]. Malena Hankins Steno Typist documented in this encounter Plan of Treatment Not on filedocumented as of this encounter Visit Diagnoses Not on filedocumented in this encounter Additional Health Concerns Assessment Noted Time PHQ-9 Depression Total Score: 8 12/02/2019 2:02 PM SENIOR PROPERTY ACCOUNTANT documented as of this encounter Care Teams Pathology Specialist Relationship Specialty Start Date End Date Teresita Garcia MD PCP - General Family Practice 01/22/11 [address] [place] [address] Teresita Garcia MD Assigned PCP 11/16/16 12/28/21 [address] [place] [address] documented as of this encounter
--- OUTSIDE RECORDS SUMMARY | 2022-08-21 16:59 | XMS_ITS | Encounter Summary ---
:1960 Author Organization [place] Address [address] [facility] [place] [address] Care Team Providers Name Role Phone Teresita Garcia MD Primary Care Provider Teresita Garcia MD Unavailable Reason for Visit Reason Comments Hospital F/U Encounter Details Date Type Department Care Team Description 12/02/2019 Office Visit [facility] Teresita Garcia MD Urinary tract Clinic [place] [id number] [place] [address] infection associated [address] [place], [place] [address] urethral catheter, [phone] subsequent encounter (Primary Dx) [...] do you attend amish or Not asked episcopalian services? Do you [...] Comments Blood Pressure 121/78 12/02/2019 1:07 PM VALIDATION INTERN Pulse 98 12/02/2019 1:07 PM VALIDATION INTERN Temperature 36.6 ??C (97.8 ??F) 12/02/2019 1:07 PM VALIDATION INTERN Respiratory Rate 16 12/02/2019 1:07 PM VALIDATION INTERN Oxygen Saturation 99% 12/02/2019 1:07 PM VALIDATION INTERN Inhaled Oxygen Concentration - - Weight 79.4 kg (175 lb) 12/02/2019 1:07 PM VALIDATION INTERN Height - - Body Mass Index 27 11/25/2018 3:16 PM VALIDATION INTERN documented in this encounter Progress Notes Teresita Garcia MD - 12/02/2019 1:00 PM CST Subjective Dejuan Rodriguez is a 58 year old male who presents to clinic today for the following health issues: [facility] Hospital Follow-up Visit: Hospital/Custodial/ Rehab Facility: [facility] Date of Admission: 11/24/2019 Date of Discharge: 11/29/2019 Reason(s) for Admission: UTI Problems taking medications regularly: None Medication changes since discharge: Doxycycline and changed Gabapentin Problems adhering to non-medication therapy: None Summary of hospitalization: [facility] discharge summary reviewed Diagnostic Tests/Treatments reviewed. Follow up needed: with Neurology and Urology. Other Healthcare Providers Involved in Patient???s Care: CHEMISTRY INSTRUCTOR has been helping him during the day. [...] this visit: Type of Medical Decision Making Zown-re-Sjsl Visit within 7 Days of discharge Jxbl-vs-Vdip Visit within 14 days of discharge Moderate Complexity 85773 [id number] High Complexity 97852 [address] Patient Active Problem List Diagnosis ??? MS (multiple sclerosis) (H) ??? CARDIOVASCULAR SCREENING; LDL GOAL LESS THAN 160 ??? Cannabis abuse ??? Baclofen pump failure ??? Spasticity ??? Seborrheic dermatitis of scalp ??? Status post hip replacement ??? Qyre-Ffojy-Qcilbyk disease ??? Atopic rhinitis ??? Major depressive [...] 6 months (around 06/03/2020). Teresita Garcia MD [facility] DATION INTERN documented in this encounter Plan of Treatment Not on filedocumented as of this encounter Visit Diagnoses Diagnosis Urinary tract infection associated with indwelling urethral catheter, subsequent encounter - Primary documented in this encounter Additional Health Concerns Assessment Noted Time PHQ-9 Depression Total Score: 8 12/02/2019 2:02 PM VALIDATION INTERN documented as of this encounter Care Teams Piercing Mill Operator Relationship Specialty Start Date End Date Teresita Garcia MD PCP - General Family Practice 01/22/11 [address] [place] [address] Teresita Garcia MD Assigned PCP 11/16/16 12/28/21 [address] [place] [address] documented as of this encounter
--- OUTSIDE RECORDS SUMMARY | 2022-08-21 16:59 | XMS_ITS | Encounter Summary ---
:1960 Author Organization [place] Address [address] [place] [address] Care Team Providers Name Role Phone Teresita Garcia MD Primary Care Provider Teresita Garcia MD Unavailable Reason for Visit Reason Onset Date Comments Forms 03/12/2020 Orders / Two forms Encounter Details Date Type Department Care Team Description 03/12/2020 Telephone [facility] Teresita Garcia MD Forms (Orders / Two Clinic [place] [id number] [place] [address] forms) [id number] [place] [address] [phone] Social History Tobacco Use Types Packs/Day [...] do you attend hoahaoism or Not asked gnosticism services? Do you [...] by Kiersten De Souza MD. Faxed to [phone]. Carolynn Eng. Financial Institution Branch Manager Telephone Encounter - Shaggy Patelparvez Sevilla - 03/12/2020 11:51 AM CDT Reason for call: Two forms / Orders Our goal is to have forms completed within 72 hours, however some forms may require a visit or additional information. Who is the form from? Home care Where did the form come from? form was faxed in What clinic location was the form placed at? [facility] Where was the form placed? [facility] What number is listed as a contact on the form? [phone] Phone call message - patient request for a letter, form or note: Date needed: within one week Please fax to [phone] Has the patient signed a consent form for release of information? Not Applicable Type of letter, form or note: Orders Phone number to reach patient: Other phone number: [phone] documented in this encounter Plan of Treatment Not on filedocumented as of this encounter Visit Diagnoses Not on filedocumented in this encounter Additional Health Concerns Assessment Noted Time PHQ-9 Depression Total Score: 8 12/02/2019 2:02 PM HISTOLOGY ASSISTANT documented as of this encounter Care Teams Comparative Sociology Professor Relationship Specialty Start Date End Date Teresita Garcia MD PCP - General Family Practice 01/22/11 [address] [place] [address] Teresita Garcia MD Assigned PCP 11/16/16 12/28/21 [address] [place] [address] documented as of this encounter
--- OUTSIDE RECORDS SUMMARY | 2022-08-21 16:59 | XMS_ITS | Encounter Summary ---
:1960 Author Organization [place] Address [address] [facility] [place] [address] Care Team Providers Name Role Phone Teresita Garcia MD Primary Care Provider Teresita Garcia MD Unavailable Reason for Visit Reason Onset Date Comments Orders 03/23/2020 Physicians Orders Encounter Details Date Type Department Care Team Description 03/23/2020 Telephone [facility] Teresita Garcia MD Orders (Physicians Clinic [place] [id number] [place] [address] Orders) [id number] [place] [address] [phone] Social History Tobacco Use Types Packs/Day [...] do you attend congregation or Not asked voodoo services? Do you [...] AM CDT Signed form faxed. Malena Hankins Clinic Specialist Telephone Encounter - Bella Harden - 03/23/2020 9:05 AM CDT Received 3 page fax from [email or web address] for orders for Dr. Garcia to complete. Placed in AA's folder at [place]. When completed, please fax to [phone]. Bella Harden Clinic Specialist documented in this encounter Plan of Treatment Not on filedocumented as of this encounter Visit Diagnoses Not on filedocumented in this encounter Additional Health Concerns Assessment Noted Time PHQ-9 Depression Total Score: 8 12/02/2019 2:02 PM SLIP COVER CUTTER documented as of this encounter Care Teams Awning Craftsman Relationship Specialty Start Date End Date Teresita Garcia MD PCP - General Family Practice 01/22/11 [address] [place] [address] Teresita Garcia MD Assigned PCP 11/16/16 12/28/21 [address] [place] [address] documented as of this encounter
--- OUTSIDE RECORDS SUMMARY | 2022-08-21 16:59 | XMS_ITS | Encounter Summary ---
:1960 Author Organization [place] Address [address] [facility] [place] [address] Care Team Providers Name Role Phone Teresita Garcia MD Primary Care Provider Teresita Garcia MD Unavailable Reason for Visit Reason Onset Date Comments Orders 03/05/2020 [facility] Encounter Details Date Type Department Care Team Description 03/05/2020 Documentation Only [facility] Sedrick Giron O rders ([facility]) [address] [place] [address], [phone] [place] [address] Social History Tobacco Use Types Packs/Day [...] do you attend yazidism or Not asked church services? Do you [...] PM CDT Signed forms faxed. .Malena Hankins Auto Parts Manager documented in this encounter Plan of Treatment Not on filedocumented as of this encounter Visit Diagnoses Not on filedocumented in this encounter Additional Health Concerns Assessment Noted Time PHQ-9 Depression Total Score: 8 12/02/2019 2:02 PM BEER STILL RUNNER COMPOUNDER documented as of this encounter Care Teams Regulatory Law Specialist Relationship Specialty Start Date End Date Teresita Garcia MD PCP - General Family Practice 01/22/11 [address] [place] [address] Teresita Garcia MD Assigned PCP 11/16/16 12/28/21 [address] [place], [place] [phone] documented as of this encounter
--- OUTSIDE RECORDS SUMMARY | 2022-08-21 16:59 | XMS_ITS | Encounter Summary ---
:1960 Author Organization [place] Address [address] [place] [address] Care Team Providers Name Role Phone Teresita Garcia MD Primary Care Provider Teresita Garcia MD Unavailable Reason for Visit Reason Onset Date Comments Orders 12/21/2019 [facility] Encounter Details Date Type Department Care Team Description 12/21/2019 Telephone [facility] Teresita Garcia MD Orders ([facility] [address]) [address] [place] [address] [phone] Social History Tobacco Use Types Packs/Day [...] do you attend mandaeism or Not asked scientology services? Do you [...] AM CDT Recd 2 page fax from [employer]. Please sign orders and fax to [phone] Form in AA folder at [place]. Malena Hankins Paper Machine Back Tender documented in this encounter Plan of Treatment Not on filedocumented as of this encounter Visit Diagnoses Not on filedocumented in this encounter Additional Health Concerns Assessment Noted Time PHQ-9 Depression Total Score: 8 12/02/2019 2:02 PM SEAFOOD TEAM MEMBER documented as of this encounter Care Teams Wallpaper Inspector And Shipper Relationship Specialty Start Date End Date Teresita Garcia MD PCP - General Family Practice 01/22/11 [address] [place] [address] Teresita Garcia MD Assigned PCP 11/16/16 12/28/21 [address] [place] [address] documented as of this encounter
--- OUTSIDE RECORDS SUMMARY | 2022-08-21 16:59 | XMS_ITS | Encounter Summary ---
:1960 Author Organization [place] Address [address] [facility] [place] [address] Care Team Providers Name Role Phone Teresita Garcia MD Primary Care Provider Teresita Garcia MD Unavailable Reason for Visit Reason Onset Date Comments Erroneous encounter-disregard 01/24/2020 Encounter Details Date Type Department Care Team Description 01/24/2020 Telephone [facility] Teresita Garcia MD Erroneous Clinic [place] [id number] [place] [address] encounter-disregard [address] [place], [place] [phone] Social History Tobacco Use Types Packs/Day [...] do you attend confucianist or Not asked christianity services? Do you belong to any clubs [...] Depression Total Score: 8 12/02/2019 2:02 PM ITEM PROCESSOR documented as of this encounter Care Teams Forensic Locksmith Relationship Specialty Start Date End Date Teresita Garcia MD PCP - General Family Practice 01/22/11 [address] [place], [place] [id number] Teresita Garcia MD Assigned PCP 11/16/16 12/28/21 [address] [place], [place] [phone] documented as of this encounter
--- OUTSIDE RECORDS SUMMARY | 2022-08-21 16:59 | XMS_ITS | Encounter Summary ---
:1960 Author Organization [place] Address [address] [place] [address] Care Team Providers Name Role Phone Teresita Garcia MD Primary Care Provider Teresita Garcia MD Unavailable Reason for Visit Reason Onset Date Comments Forms 11/29/2019 Physician Order Encounter Details Date Type Department Care Team Description 11/29/2019 Telephone [facility] Teresita Garcia MD Forms (Physician Order) Clinic [id number] [place] [address] [phone] Social History Tobacco Use Types Packs/Day [...] or relatives? How often do you attend faith or Not asked jain services? Do you belong to any clubs or Not asked organizations such as faith groups, unions, fraternal or athletic groups, or [...] PM CST Form faxed, 11/30/2019 Jackie Brito/AWILDA NE HABITAT RESOURCE SPECIALIST Telephone Encounter - Rosy Brito - 11/29/2019 11:08 AM CST Received 2 page fax for Physician Order for Dr Garcia to complete. Form in the in- basket at [facility] in AA's folder. NE HABITAT RESOURCE SPECIALIST documented in this encounter Plan of Treatment Not on filedocumented as of this encounter Visit Diagnoses Not on filedocumented in this encounter Additional Health Concerns Assessment Noted Time PHQ-9 Depression Total Score: 5 11/25/2018 3:25 PM MARINE HABITAT RESOURCE SPECIALIST documented as of this encounter Care Teams Frame Stylist Relationship Specialty Start Date End Date Teresita Garcia MD PCP - General Family Practice 01/22/11 [address] [place] [address] Teresita Garcia MD Assigned PCP 11/16/16 12/28/21 [address] [place] [address] documented as of this encounter
--- OUTSIDE RECORDS SUMMARY | 2022-08-21 16:59 | XMS_ITS | Encounter Summary ---
:1960 Author Organization [place] Address [address] [place] [address] Care Team Providers Name Role Phone Teresita Garcia MD Primary Care Provider Teresita Garcia MD Unavailable Reason for Visit Reason Onset Date Comments Forms 01/17/2020 Physician Order Encounter Details Date Type Department Care Team Description 01/17/2020 Telephone [facility] Teresita Garcia MD Forms (Physician Order) Clinic [id number] [place] [address] [phone] Social History Tobacco Use Types Packs/Day [...] do you attend adventism or Not asked religion services? Do you [...] 19 altered schedules Blanca Choi Registered Nurse [facility] Telephone Encounter - Rosy Brito - 01/17/2020 10:04 AM CDT Received 2 page fax for Physician Order fro Dr Garcia to complete. Form in the in- basket at [facility] in AA's folder. documented in this encounter Plan of Treatment Not on filedocumented as of this encounter Visit Diagnoses Not on filedocumented in this encounter Additional Health Concerns Assessment Noted Time PHQ-9 Depression Total Score: 8 12/02/2019 2:02 PM EARRING MAKER documented as of this encounter Care Teams Foreign Law Consultant Relationship Specialty Start Date End Date Teresita Garcia MD PCP - General Family Practice 01/22/11 [address] [place], [place] [phone] Teresita Garcia MD Assigned PCP 11/16/16 12/28/21 [address] [place], [place] [phone] documented as of this encounter
--- OUTSIDE RECORDS SUMMARY | 2022-08-21 16:59 | XMS_ITS | Encounter Summary ---
:1960 Author Organization [place] Address [address] [facility] [place] [address] Care Team Providers Name Role Phone Teresita Garcia MD Primary Care Provider Teresita Garcia MD Unavailable Reason for Visit Reason Onset Date Comments Forms 01/03/2020 Physician Orders Encounter Details Date Type Department Care Team Description 01/03/2020 Telephone [facility] Teresita Garcia MD Forms (Physician Clinic [place] [address] [place] [address] Orders) [address] [place], [place] [phone] Social History Tobacco Use Types Packs/Day [...] do you attend anglican or Not asked taoist services? Do you [...] to complete. Form in the in-basket at [facility] in AA's folder. documented in this encounter Plan of Treatment Not on filedocumented as of this encounter Visit Diagnoses Not on filedocumented in this encounter Additional Health Concerns Assessment Noted Time PHQ-9 Depression Total Score: 8 12/02/2019 2:02 PM SUPERVISOR ASSEMBLING documented as of this encounter Care Teams Ending Machine Operator Relationship Specialty Start Date End Date Teresita Garcia MD PCP - General Family Practice 01/22/11 [address] [place] [address] Teresita Garcia MD Assigned PCP 11/16/16 12/28/21 [address] [place] [address] documented as of this encounter
--- OUTSIDE RECORDS SUMMARY | 2022-08-21 16:59 | XMS_ITS | Encounter Summary ---
:1960 Author Organization [place] Address [address] [place] [address] Care Team Providers Name Role Phone Teresita Garcia MD Primary Care Provider Teresita Garcia MD Unavailable Reason for Visit Reason Onset Date Comments Orders 12/01/2019 [facility] Encounter Details Date Type Department Care Team Description 12/01/2019 Telephone [facility] Teresita Garcia MD Orders ([facility] [address]) [address] [place] [address] [phone] Social History Tobacco Use Types Packs/Day [...] do you attend holiness or Not asked yarsanism services? Do you [...] this encounter Miscellaneous Notes Telephone Encounter - Baron Hankinsssie - 12/02/2019 8:23 AM CST Signed forms faxed. Malena Hankins Internet Network Specialist RT CLERK Telephone Encounter - Malena Hankins - 12/01/2019 3:46 PM CST Recd 8 page fax from [employer]. Please sign [employer] Orders and fax to [phone]. Form in AA folder at [place]. Malena Hankins Internet Network Specialist RT CLERK documented in this encounter Plan of Treatment Not on filedocumented as of this encounter Visit Diagnoses Not on filedocumented in this encounter Additional Health Concerns Assessment Noted Time PHQ-9 Depression Total Score: 5 11/25/2018 3:25 PM IMPORT CLERK documented as of this encounter Care Teams Console Operator Relationship Specialty Start Date End Date Teresita Garcia MD PCP - General Family Practice 01/22/11 [address] [place] [address] Teresita Garcia MD Assigned PCP 11/16/16 12/28/21 [address] [place] [address] documented as of this encounter
--- OUTSIDE RECORDS SUMMARY | 2022-08-21 16:59 | XMS_ITS | Encounter Summary ---
:1960 Author Organization [place] Address [address] [facility] [place] [address] Care Team Providers Name Role Phone Teresita Garcia MD Primary Care Provider Teresita Garcia MD Unavailable Reason for Visit Diagnostic Imaging Dexa (Routine) - Closed Specialty Diagnoses / Procedures Referred By Contact Refer red To Contact Diagnoses Osteoporosis without current pathological fracture, unspecified osteoporosis type Teresita Garcia MD Procedures DX Hip/Pelvis/Spine [address] [place], [place] [address] Referral ID Status Reason Start Date Expiration Date Visits Requ ested Visits Authorized [id number] Closed 12/03/2019 12/02/2020 1 1 Encounter Details Date Type Department Care Team Description 04/04/2020 Ancillary Procedure [facility] Teresita Garcia MD Osteoporosis without Clinic [place] [id number] [place] [address] current pathological [address] [facility] AV fracture, unspecified [place], osteoporosis [place] [address] [place] [address] [place], [place] [phone] (Work) Social History Tobacco Use Types [...] do you attend mandaen or Not asked protestant services? Do you [...] Narrative 04/06/2020 1:21 PM CDT BONE DENSITOMETRY [address] [address] 04/04/2020 ?? PATIENT: Dejuan Rodriguez CHART: [id number] : ??1960 AGE: ??59 year old SEX: ??male REFERRING PROVIDER: Teresita Garcia MD ?? PROCEDURE: ??Bone density scanning was p erformed using DXA technology of the lumbar spine and hip. ??Scanning was performed on a [employer] scanner. ??Reporting is completed in the form of a T-score. ??The T-score represents the standard deviation from p eak bone mass based on a young healthy adult. ?? REFERENCE T-SCORES: ?Normal ?-1.0 and greater ?Osteopenia ? Between -1. 0 and -2.5 ?Osteoporosis ? -2.5 and less ? RISK FACTORS: ??Post-menopausal, Parent history of osteoporosis with a hip fracture, oil heaterman corticosteroid thera py CURRENT TREATMENT: ??Calcium, Fosamax [...] Depression Total Score: 8 12/02/2019 2:02 PM JEWELRY STORE MANAGER documented as of this encounter Care Teams Mixing And Dispensing Supervisor Relationship Specialty Start Date End Date Teresita Garcia MD PCP - General Family Practice 01/22/11 [address] [place] [address] Teresita Garcia MD Assigned PCP 11/16/16 12/28/21 [address] [place] [address] documented as of this encounter
--- OUTSIDE RECORDS SUMMARY | 2022-08-21 16:59 | XMS_ITS | Encounter Summary ---
:1960 Author Organization [place] Address [address] [facility] [place] [address] Care Team Providers Name Role Phone Teresita [...] do you attend hoahaoism or Not asked shinto services? Do you [...] Total Score: 8 12/02/2019 2:02 PM DIRECTOR MEDICAL SURGICAL documented as of this encounter Care Teams Crowning Inspector Relationship Specialty Start Date End Date Teresita Garcia MD PCP - General Family Practice 01/22/11 [address] [place] [address] Teresita Garcia MD Assigned PCP 11/16/16 12/28/21 [address] [place], [place] [phone] documented as of this encounter
--- OUTSIDE RECORDS SUMMARY | 2022-08-21 16:59 | XMS_ITS | Encounter Summary ---
:1960 Author Organization [place] Address [facility] [place] [address] Care Team Providers Name Role Phone Teresita Garcia MD Primary Care Provider Teresita Garcia MD Unavailable Reason for Visit Reason Comments Medication Refill Encounter Details Date Type Department Care Team Description 02/07/2020 Refill [facility] Roel Garcia MD Medication Refill [place] [id number] [place] [address] [place], [place] [address] [place] [address] [phone] Social History Tobacco Use Types Packs/Day Years [...] do you attend presybeterian or Not asked evangelical services? Do you [...] not current: JOHANNEA Wilda Schroeder RN, BSN documented in this encounter Plan of Treatment Not on filedocumented as of this encounter Visit Diagnoses Diagnosis Osteoporosis, unspecified osteoporosis t ype, unspecified pathological fracture presence documented in this encounter Additional Health Concerns Assessment Noted Time PHQ-9 Depression Total Score: 8 12/02/2019 2:02 PM VEGETABLE CUTTER documented as of this encounter Care Teams Junior Staff Accountant Relationship Specialty Start Date End Date Teresita Garcia MD PCP - General Family Practice 01/22/11 [address] [place], [place] [phone] Teresita Garcia MD Assigned PCP 11/16/16 12/28/21 [address] [place], [place] [phone] documented as of this encounter
--- OUTSIDE RECORDS SUMMARY | 2022-08-21 16:59 | XMS_ITS | Encounter Summary ---
:1960 Author Organization [place] Address [address] [place] [address] Care Team Providers Name Role Phone Teresita Garcia MD Primary Care Provider Teresita Garcia MD Unavailable Encounter Details Date Type Department Care Team Description 11/28/2019 Medical Correspondence [facility] [place] Scan, PHYSICAL THERAPY Health Info Mgmt Non-Provider ORDER [facility] [address] [facility] [address] Social History Tobacco Use Types [...] do you attend religious or Not asked gnosticist services? Do you [...] Depression Total Score: 5 11/25/2018 3:25 PM LEATHER CRAFTER documented as of this encounter Care Teams Test Skein Winder Relationship Specialty Start Date End Date Teresita Garcia MD PCP - General Family Practice 01/22/11 [address] [place], [place] [phone] Teresita Garcia MD Assigned PCP 11/16/16 12/28/21 [address] [place], [place] [phone] documented as of this encounter
--- OUTSIDE RECORDS SUMMARY | 2022-08-21 16:59 | XMS_ITS | Encounter Summary ---
:1960 Author Organization [place] Address [address] [facility] [place] [address] Care Team Providers Name Role Phone Teresita Garcia MD Primary Care Provider Teresita Garcia MD Unavailable Reason for Visit Reason Onset Date Comments Orders 12/06/2019 Home Care orders Encounter Details Date Type Department Care Team Description 12/06/[address] [facility] Teresita Garcia MD Orders (Home Care [facility] [place] [id number] [place] [address] orders) [id number] [place] [address] [phone] Social History Tobacco Use Types Packs/Day [...] do you attend spiritism or Not asked roman catholic services? Do [...] send Orders: Call to give verbal at [phone]. Jenni Bryant Applications Consultant documented in this encounter Plan of Treatment Not on filedocumented as of this encounter Visit Diagnoses Not on filedocumented in this encounter Additional Health Concerns Assessment Noted Time PHQ-9 Depression Total Score: 8 12/02/2019 2:02 PM MARKETING COMMUNICATIONS LEADER documented as of this encounter Care Teams Certified Medical Aide Relationship Specialty Start Date End Date Teresita Garcia MD PCP - General Family Practice 01/22/11 [address] [place], [place] [phone] Teresita Garcia MD Assigned PCP 11/16/16 12/28/21 [address] [place] [address] documented as of this encounter
--- OUTSIDE RECORDS SUMMARY | 2022-08-21 16:59 | XMS_ITS | Encounter Summary ---
:1960 Author Organization [place] Address [address] [place] [address] Care Team Providers Name Role Phone Teresita Garcia MD Primary Care Provider Teresita Garcia MD Unavailable Reason for Visit Reason Onset Date Comments Orders 12/19/2019 [facility] Encounter Details Date Type Department Care Team Description 12/19/2019 Telephone [facility] Teresita Garcia MD Orders ([facility] [address]) [address] [place] [address] [phone] Social History Tobacco Use Types Packs/Day [...] you attend jehovah's witness or Not asked quaker services? Do you [...] Notes Telephone Encounter - Malena Hankins - 12/20/2019 8:54 AM CDT Signed forms faxed. Malena Hankins Steel Rod Buster Telephone Encounter - Malena Hankins - 12/19/2019 3:12 PM CDT Recd 6 page fax from [facility]. Please fax Plan of Care orders to [phone]. Form in AA folder at [place] Malena Hankins Steel Rod Buster documented in this encounter Plan of Treatment Not on filedocumented as of this encounter Visit Diagnoses Not on filedocumented in this encounter Additional Health Concerns Assessment Noted Time PHQ-9 Depression Total Score: 8 12/02/2019 2:02 PM RUBBER MOLDER documented as of this encounter Care Teams Stepdown Nurse Relationship Specialty Start Date End Date Teresita Garcia MD PCP - General Family Practice 01/22/11 [address] [place] [address] Teresita Garcia MD Assigned PCP 11/16/16 12/28/21 [address] [place] [address] documented as of this encounter
--- OUTSIDE RECORDS SUMMARY | 2022-08-21 16:59 | XMS_ITS | Encounter Summary ---
:1960 Author Organization [place] Address [address] [facility] [place] [address] Care Team Providers Name Role Phone Teresita Garcia MD Primary Care Provider Teresita Garcia MD Unavailable Encounter Details Date Type Department Care Team Description 03/20/2020 Medical Correspondence [facility] Scan, PLAN OF CARE [facility] Non-Provider HOME HEALTH /HOSPICE [facility] [address] [place] [address] Social History Tobacco Use Types [...] do you attend muslim or Not asked zoroastrian services? Do you [...] Depression Total Score: 8 12/02/2019 2:02 PM CYBER SECURITY ANALYST documented as of this encounter Care Teams Drill Rig Operator Helper Relationship Specialty Start Date End Date Teresita Garcia MD PCP - General Family Practice 01/22/11 [address] [place], [place] [phone] Teresita Garcia MD Assigned PCP 11/16/16 12/28/21 [address] [place], [place] [phone] documented as of this encounter
--- OUTSIDE RECORDS SUMMARY | 2022-08-21 16:59 | XMS_ITS | Encounter Summary ---
:1960 Author Organization [place] Address [address] [facility] [place] [address] Care Team Providers Name Role Phone Teresita Garcia MD Primary Care Provider Teresita Garcia MD Unavailable Encounter Details Date Type Department Care Team Description 12/02/2019 Medical Correspondence [facility] Scan, DISCHARGE/ORDER Health Info Mgmt Non-Provider SUMMARY [facility]OSPICE [address] [place] [address] Social History Tobacco Use Types [...] do you attend spiritism or Not asked voodoo services? Do you [...] Depression Total Score: 8 12/02/2019 2:02 PM CLOTH BLEACHING RANGE TENDER documented as of this encounter Care Teams Cell Biologist Relationship Specialty Start Date End Date Teresita Garcia MD PCP - General Family Practice 01/22/11 [address] [place] [address] Teresita Garcia MD Assigned PCP 11/16/16 12/28/21 [address] [place], [place] [phone] documented as of this encounter
--- OUTSIDE RECORDS SUMMARY | 2022-08-21 16:59 | XMS_ITS | Encounter Summary ---
:1960 Author Organization [place] Address [address] [place] [address] Care Team Providers Name Role Phone Teresita Garcia MD Primary Care Provider Teresita Garcia MD Unavailable Reason for Visit Reason Onset Date Comments Orders 12/05/2019 [facility] Encounter Details Date Type Department Care Team Description 12/05/2019 Telephone [facility] Teresita Garcia MD Orders ([facility] [address]) [address] [place] [address] [phone] Social History Tobacco Use Types Packs/Day [...] or relatives? How often do you attend latter-day or Not asked sikh services? Do you belong to any clubs or Not asked organizations such as latter-day groups, unions, fraternal or athletic groups, or [...] Notes Telephone Encounter - Malena Hankins - 12/05/2019 4:27 PM CDT Signed forms faxed. Malena Hankins Biomed Tech Telephone Encounter - Malena Hankins - 12/05/2019 9:13 AM CDT Recd 3 page fax from [facility]. Please sign orders and fax to [phone]. Form in AA folder at [place]. Malena Hankins Biomed Tech documented in this encounter Plan of Treatment Not on filedocumented as of this encounter Visit Diagnoses Not on filedocumented in this encounter Additional Health Concerns Assessment Noted Time PHQ-9 Depression Total Score: 8 12/02/2019 2:02 PM PROCESS DEVELOPMENT TECHNICIAN documented as of this encounter Care Teams Research Hydrologist Relationship Specialty Start Date End Date Teresita Garcia MD PCP - General Family Practice 01/22/11 [address] [place] [address] Teresita Garcia MD Assigned PCP 11/16/16 12/28/21 [address] [place] [address] documented as of this encounter
--- OUTSIDE RECORDS SUMMARY | 2022-08-21 16:59 | XMS_ITS | Encounter Summary ---
:1960 Author Organization [place] Address [address] [facility] [place] [address] Care Team Providers Name Role Phone Teresita Garcia MD Primary Care Provider Teresita Garcai MD Unavailable Reason for Visit Reason Onset Date Comments Home Health 12/07/2019 Requesting verbal ap proval Encounter Details Date Type Department Care Team Description 12/07/2019 Telephone [facility] Teresita Garcia MD [facility] (Requesting Clinic [place] [id number] [place] [address] verbal approval) [phone] [place] [phone] Social History Tobacco Use Types [...] do you attend buddhism or Not asked mosque services? Do you [...] advise. Ok to call Lili back at [phone] Perez Almanzar MA documented in this encounter Plan of Treatment Not on filedocumented as of this encounter Visit Diagnoses Not on filedocumented in this encounter Additional Health Concerns Assessment Noted Time PHQ-9 Depression Total Score: 8 12/02/2019 2:02 PM TEMPER MILL OPERATOR documented as of this encounter Care Teams Commodity Broker Relationship Specialty Start Date End Date Teresita Garcia MD PCP - General Family Practice 01/22/11 [address] [place] [address] Teresita Garcia MD Assigned PCP 11/16/16 12/28/21 [address] [place] [address] documented as of this encounter
--- OUTSIDE RECORDS SUMMARY | 2022-08-21 16:59 | XMS_ITS | Encounter Summary ---
:1960 Author Organization [place] Address [address] [place] [address] Care Team Providers Name Role Phone Teresita [...] do you attend synagogue or Not asked mormon services? Do you [...] Total Score: 8 12/02/2019 2:02 PM SUPERVISOR BONDING documented as of this encounter Care Teams Machine Puller Over Relationship Specialty Start Date End Date Teresita Garcia MD PCP - General Family Practice 01/22/11 [address] [place] [address] Teresita Garcia MD Assigned PCP 11/16/16 12/28/21 [address] [place] [address] documented as of this encounter
--- OUTSIDE RECORDS SUMMARY | 2022-08-21 17:00 | XMS_ITS | Encounter Summary ---
:1960 Author Organization [place] Address [address] [facility] [place] [address] Care Team Providers Name Role Phone Teresita Garcia MD Primary Care Provider Teresita Garcia MD Unavailable Reason for Visit Reason Onset Date Comments Medication Request 10/04/2019 Abx before Dental pr ocedure Encounter Details Date Type Department Care Team Description 10/04/2019 Telephone [facility] Teresita Garcia MD Medication Request (Abx Clinic [place] [address] before Dental [address] [place], [place] procedure) [place] [phone] Social History Tobacco Use Types Packs/Day Years [...] you attend jehovah's witness or Not asked jew services? Do you [...] Deann Lora RN, BS Clinical Nurse Triage. K MAKER Telephone Encounter - Teresita Garcia MD - 10/05/2019 7:42 AM CST No recommendations for Abx unless patient does have valve replacement, or congenital heart disease. Teresita Garcia MD [facility] [phone] K MAKER Telephone Encounter - Mary More RN - [...] of office for day. Mary More RN K MAKER Telephone Encounter - Gregory Bronson - 10/04/2019 11:22 AM CST Patient wants to know if he needs Abx before dental procedure tomorrow. He has had hips replaced. If so send to [facility]. Call and let patient know. K MAKER documented in this encounter Plan of Treatment Not on filedocumented as of this encounter Visit Diagnoses Not on filedocumented in this encounter Additional Health Concerns Assessment Noted Time PHQ-9 Depression Total Score: 5 11/25/2018 3:25 PM CLOCK MAKER documented as of this encounter Care Teams Cellar Packer Relationship Specialty Start Date End Date Teresita Garcia MD PCP - General Family Practice 01/22/11 [address] [place], [place] [phone] Teresita Garcia MD Assigned PCP 11/16/16 12/28/21 [address] [place] [address] documented as of this encounter
--- OUTSIDE RECORDS SUMMARY | 2022-08-21 17:00 | XMS_ITS | Encounter Summary ---
:1960 Author Organization [place] Address [address] [facility] [place] [address] Care Team Providers Name Role Phone Teresita Garcia MD Primary Care Provider Teresita Garcia MD Unavailable Teresita Garcia MD Unavailable Reason for Visit Reason Onset Date Comments Nurse Advice Line 06/08/2017 osteoporesis Encounter Details Date Type Department Care Team Description 06/08/2017 Telephone [facility] Teresita Garcia MD Nurse Advice Line Clinic [address] (osteoporesis) [address] [place] [address] [phone] Social History Tobacco Use Types Packs/Day [...] do you attend jewish or Not asked caodaism services? Do you [...] 500mg-400 units twice daily. Teresita Garcia MD [facility] [phone] Telephone Encounter - Deann Lora RN - 06/08/2017 3:40 PM CDT Pt called in again about calcium States he had dexa scan at [facility] within last or so, showed OP [...] Depression Total Score: 4 10/18/2016 7:15 AM INSURANCE COUNSEL documented as of this encounter Care Teams Lace Machine Operator Relationship Specialty Start Date End Date Teresita Garcia MD PCP - General Family Practice 01/22/11 [address] [place] [address] Teresita Garcia MD PCP - Assigned PCP 11/16/16 11/30/18 [address] [place] [address] Teresita Garcia MD Assigned PCP 11/16/16 12/28/21 [address] [place] [address] documented as of this encounter
--- OUTSIDE RECORDS SUMMARY | 2022-08-21 17:00 | XMS_ITS | Encounter Summary ---
:1960 Author Organization [place] Address [facility] [place] [address] Care Team Providers Name Role Phone Teresita Garcia MD Primary Care Provider Teresita Garcia MD Unavailable Teresita Garcia MD Unavailable Reason for Visit Reason Comments Clinic Care Coordination - Initial ccsw Encounter Details Date Type Department Care Team Description 11/25/2017 Care Coordination [facility] Teresita Garcia MD Clinic Care Care Coordination [address] [facility] Coordination - [address] [place] [address] ([facility]) [facility] [address] [place] [address] [phone] (Work) [phone] Social History Tobacco Use Types Packs/Day Years [...] do you attend christian or Not asked restorationism services? Do you [...] this time RE: unable to contact Bailey Boyd Social Work Press Hand Supervisor, RODERICK MCLAUGHLIN P:[phone] [facility] Bailey Boyd LGSW - 12/03/2017 3:15 PM CST Clinic Care Coordination Contact [facility]/Voicemail Clinical Data: pt returned this CCSWs call and left a voicemail. CCSW attempted to reach him Outreach attempted x 1. Left message on voicemail with call back information and requested return call. Plan: sports coordinator will try again in 3-5 business days if he does not call back. Bailey Boyd Social Work Press Hand Supervisor, ARNOLDO MORTGAGE ASSISTANT [place] [facility] [facility]: [facility] P:[phone] / Signed December 03, 2017 D NATURALIST Bailey Boyd LGSW - 12/03/2017 10:35 AM CST Clinic Care Coordination Contact [place]/Voicemail Clinical Data: see below Outreach attempted x 2. Left message on voicemail with call back information and requested return call. Plan: sports coordinator will send a [facility] letter and access plan and review in 2-3 weeks. Bailey Boyd Social Work Press Hand Supervisor, ARNOLDO MORTGAGE ASSISTANT [facility]: [facility] P:[phone] / Signed December 03, 2017 D NATURALIST Bailey Boyd LGSW - 11/25/2017 9:39 AM CST Clinic Care Coordination Contact [facility]/Voicemail Clinical Data: Has MS. Needing help in the home Outreach attempted x 1. Left message on voicemail with call back information and requested return call. Plan: sports coordinator will try again in 2-3 business days. Bailey Boyd, Social Work Press Hand Supervisor, CAN LINE EXAMINER, MORTGAGE ASSISTANT [place] [facility]: [place] [place] [place] P:[phone] / Signed November 25, 2017 D NATURALIST documented in this encounter Plan of Treatment Not on filedocumented as of this encounter Visit Diagnoses Not on filedocumented in this encounter Additional Health Concerns Assessment Noted Time PHQ-9 Depression Total Score: 2 11/25/2017 8:11 AM FIELD NATURALIST documented as of this encounter Care Teams Aml Analyst Relationship Specialty Start Date End Date Teresita Garcia MD PCP - General Family Practice 01/22/11 [address] [place] [address] Teresita Garcia MD PCP - Assigned PCP 11/16/16 11/30/18 [address] [place] [address] Teresita Garcia MD Assigned PCP 11/16/16 12/28/21 [address] [place] [address] documented as of this encounter
--- OUTSIDE RECORDS SUMMARY | 2022-08-21 17:00 | XMS_ITS | Encounter Summary ---
:1960 Author Organization [place] Address [address] [facility] [place] [address] Care Team Providers Name Role Phone Teresita Gacria MD Primary Care Provider Teresita Garcia MD Unavailable Teresita Garcia MD Unavailable Reason for Visit Reason Comments Ear Problem left ear plugged x1 week Encounter Details Date Type Department Care Team Description 05/08/2017 Office Visit [facility] Teresita Garcia MD Bilateral impacted Clinic [address] (Primary Dx) [address] [place] [address] [phone] Social History Tobacco Use Types Packs/Day [...] do you attend gnosticist or Not asked islam services? Do you [...] scalp ??? Status post hip replacement ??? Ryax-Oibdc-Pznsvjy disease ??? Atopic rhinitis ??? Major depressive [...] 3 For future attacks. Teresita Garcia MD [facility] documented in this encounter Nursing Notes Yumiko [...] Depression Total Score: 4 10/18/2016 7:15 AM SAND FILLER documented as of this encounter Care Teams Implant Coordinator Relationship Specialty Start Date End Date Teresita Garcia MD PCP - General Family Practice 01/22/11 [address] [place] [address] Teresita Garcia MD PCP - Assigned PCP 11/16/16 11/30/18 [address] [place] [address] Teresita Garcia MD Assigned PCP 11/16/16 12/28/21 [address] [place] [address] documented as of this encounter
--- OUTSIDE RECORDS SUMMARY | 2022-08-21 17:00 | XMS_ITS | Encounter Summary ---
:1960 Author Organization [place] Address [address] [facility] [place] [address] Care Team Providers Name Role Phone Teresita [...] do you attend hindu or Not asked sabianist services? Do you [...] Depression Total Score: 5 11/25/2018 3:25 PM JUNIOR BRAND MANAGER documented as of this encounter Care Teams Cloth Desizing Range Operator Chief Relationship Specialty Start Date End Date Teresita Garcia MD PCP - General Family Practice 01/22/11 [address] [facility], [place] [phone] Teresita Garcia MD PCP - Assigned PCP 11/16/16 11/30/18 [address] [facility], [place] [id number] eTresita Garcia MD Assigned PCP 11/16/16 12/28/21 [address] [facility], [place] [id number] documented as of this encounter
--- OUTSIDE RECORDS SUMMARY | 2022-08-21 17:00 | XMS_ITS | Encounter Summary ---
:1960 Author Organization [place] Address [address] [facility] [place] [address] Care Team Providers Name Role Phone Teresita Garcia MD Primary Care Provider Teresita Garcia MD Unavailable Teresita Garcia MD Unavailable Encounter Details Date Type Department Care Team Description 10/16/2016 Medical Correspondence [facility] 10/16/16 - Health Information 12/14/16 Management-[facility]ER[facility] [address] [place] [address] Social History Tobacco Use Types [...] do you attend sabianism or Not asked anabaptist services? Do you [...] on filedocumented in this encounter Care Teams Processor Solid Propellant Relationship Specialty Start Date End Date Teresita Garcia MD PCP - General Family Practice 01/22/11 [address] [place] [address] Teresita Garcia MD PCP - Assigned PCP 11/16/16 11/30/18 [address] [place] [address] Teresita Garcia MD Assigned PCP 11/16/16 12/28/21 [address] [place] [address] documented as of this encounter
--- OUTSIDE RECORDS SUMMARY | 2022-08-21 17:00 | XMS_ITS | Encounter Summary ---
:1960 Author Organization [place] Address [address] [facility] [place] [address] Care Team Providers Name Role Phone Teresita Garcia MD Primary Care Provider Teresita Garcia MD Unavailable Teresita Garcia MD Unavailable Reason for Visit Reason Comments Pre-Op Exam Encounter Details Date Type Department Care Team Description 01/20/2017 Office Visit [facility] Teresita Garcia MD Preop general physical exam (Primary Dx) ; Clinic [address] [phone] Social History Tobacco Use Types Packs/Day [...] Garcia MD - 01/20/2017 11:05 AM CDT [address] [phone] Dept: [phone] PRE-OP EVALUATION: Today's date: 01/20/2017 Dejuan Rodriguez (: 1960) presents for pre-operative evaluation assessment as requested byDr. Enriquez. He requires evaluation and anesthesia risk assessment prior to undergoing surgery/procedure for treatment of pump . Proposed procedure: pump replacement Date of Surgery/ Procedure: 01/27/17 Time of Surgery/ Procedure: 10:30 Hospital/Surgical Facility: [facility] Primary Physician: Teresita Garcia Type of [...] process. Provider to review and confirm.) ??? Ppof-Msprq-Llkdsry disease 05/14/2011 Priority: Medium ??? Atopic rhinitis [...] ??? Multiple sclerosis (H) sees neurology at [facility] ??? Other specified disorder of [...] cardiovascular risks for perioperative complications such as ([place], PE, VFib and 3?? AV Block): No [...] evaluation report is provided to requesting physician. [place] Preop Guidelines documented in this encounter Nursing [...] Depression Total Score: 4 10/18/2016 7:15 AM EPIC CUPID SPECIALISTS documented as of this encounter Care Teams Cooling System Operator Relationship Specialty Start Date End Date Teresita Garcia MD PCP - General Family Practice 01/22/11 [address] [place] [address] Teresita Garcia MD PCP - Assigned PCP 11/16/16 11/30/18 [address] [place] [address] Teresita Garcia MD Assigned PCP 11/16/16 12/28/21 [address] [place] [address] documented as of this encounter
--- OUTSIDE RECORDS SUMMARY | 2022-08-21 17:00 | XMS_ITS | Encounter Summary ---
:1960 Author Organization [place] Address [address] [facility] [place] [address] Care Team Providers Name Role Phone Teresita Garcia MD Primary Care Provider Treesita Garcia MD Unavailable Teresita Garcia MD Unavailable [...] do you attend synagogue or Not asked congregational services? Do you [...] Depression Total Score: 2 11/25/2017 8:11 AM SEPHORA PRODUCT CONSULTANT documented as of this encounter Care Teams Medical Reimbursement Manager Relationship Specialty Start Date End Date Teresita Garcia MD PCP - General Family Practice 01/22/11 [address] [facility], [place] [phone] Teresita Garcia MD PCP - Assigned PCP 11/16/16 11/30/18 [address] [facility], [place] [phone] Teresita Garcia MD Assigned PCP 11/16/16 12/28/21 [address] [facility], [place] [phone] documented as of this encounter
--- OUTSIDE RECORDS SUMMARY | 2022-08-21 17:00 | XMS_ITS | Encounter Summary ---
:1960 Author Organization [place] Address [facility] [place] [address] Care Team Providers Name Role Phone Teresita Garcia MD Primary Care Provider Teresita Garcia MD Unavailable Reason for Visit Reason Onset Date Comments Orders 11/22/2019 Encounter Details Date Type Department Care Team Description 11/22/2019 Telephone [facility] Roel Garcia MD Orders [place] [id number] [place] [address] [place], [place] [address] [place] [address] [phone] Social History Tobacco Use Types Packs/Day Years [...] do you attend religion or Not asked yazdanism services? Do you [...] 2:00 PM CST RN placed call to [facility] received confidential voicemail Verbal orders provided for : PT 2 x week x 3 weeks for transfer training and exercise JOURNEYMAN ELECTRICIAN PV INSTALLER 1 x week x 3 weeks to assist with showering OT 1 x If questions / concerns return call to clinic nurse Advised to fax for written signature from pcp Blanca Choi, Registered Nurse [facility] ' ONAL DIRECTOR OF ADMISSIONS Telephone Encounter - Marlen Laird - 11/22/2019 11:46 AM CST Order/Referral Request: Who is requesting: Jayde pedroaz [facility] Orders being requested: Admitted to home care [...] Okay to leave detailed message? Yes at [facility] phone number: [phone] Routing ONAL DIRECTOR OF ADMISSIONS documented in this encounter Plan of Treatment Not on filedocumented as of this encounter Visit Diagnoses Not on filedocumented in this encounter Additional Health Concerns Assessment Noted Time PHQ-9 Depression Total Score: 5 11/25/2018 3:25 PM REGIONAL DIRECTOR OF ADMISSIONS documented as of this encounter Care Teams Ordnance Engineer Relationship Specialty Start Date End Date Teresita Garcia MD PCP - General Family Practice 01/22/11 [address] [place], [place] [phone] Teresita Garcia MD Assigned PCP 11/16/16 12/28/21 [address] [place] [address] documented as of this encounter
--- OUTSIDE RECORDS SUMMARY | 2022-08-21 17:00 | XMS_ITS | Encounter Summary ---
:1960 Author Organization [place] Address [address] [facility] [place] [address] Care Team Providers Name Role Phone Teresita Garcia MD Primary Care Provider Teresita Garcia MD Unavailable Reason for Visit Reason Comments Consult osteoporosis treatment Encounter Details Date Type Department Care Team Description 03/11/2019 Office Visit [facility] Teresita Garcia MD Seborrheic keratoses (Primary Dx); Clinic [address] Seborrheic dermatitis of scalp; [id number] [place] [address] Osteoporosis without current pathological fracture, unspecified osteoporosis type [place], [place] [phone] Social History Tobacco Use Types Packs/Day [...] do you attend voodoo or Not asked holiness services? Do you [...] scalp ??? Status post hip replacement ??? Iwmo-Dfemf-Onzydik disease ??? Atopic rhinitis ??? Major depressive [...] 6 months (around 09/10/2019). Teresita Garcia MD [facility] documented in this encounter Plan of Treatment Not on filedocumented as of this encounter Visit Diagnoses Diagnosis Seborrheic keratoses - Primary Seborrheic dermatitis of scalp Other seborrheic dermatitis Osteoporosis without current pathologica l fracture, unspecified osteoporosis type documented in this encounter Additional Health Concerns Assessment Noted Time PHQ-9 Depression Total Score: 5 11/25/2018 3:25 PM LINTING MACHINE OPERATOR documented as of this encounter Care Teams Refinery Operator Helper Relationship Specialty Start Date End Date Terseita Garcia MD PCP - General Family Practice 01/22/11 [address] [place] [address] Teresita Garcia MD Assigned PCP 11/16/16 12/28/21 [address] [place] [address] documented as of this encounter
--- OUTSIDE RECORDS SUMMARY | 2022-08-21 17:00 | XMS_ITS | Encounter Summary ---
:1960 Author Organization [place] Address [facility] [place] [address] Care Team Providers Name Role Phone Teresita Garcia MD Primary Care Provider Teresita Garcia MD Unavailable Reason for Visit Reason Comments Medication Refill fosamax Encounter Details Date Type Department Care Team Description 06/14/2019 Refill [facility] Roel Garcia MD Medication Refill [place] [id number] [place] [address] (fosamax) [address] [place] [phone] Social History Tobacco Use Types Packs/Day Years [...] do you attend taoism or Not asked buddhism services? Do you [...] On Dexa on file. Bella Guzman RN, [facility] Triage Telephone Encounter - Dawn Kimble - [...] Depression Total Score: 5 11/25/2018 3:25 PM APPRAISER documented as of this encounter Care Teams Shoe Cleaner Relationship Specialty Start Date End Date Teresita Garcia MD PCP - General Family Practice 01/22/11 [address] [facility], [place] [id number] Teresita Garcia MD Assigned PCP 11/16/16 12/28/21 [address] [place] [address] documented as of this encounter
--- OUTSIDE RECORDS SUMMARY | 2022-08-21 17:00 | XMS_ITS | Encounter Summary ---
:1960 Author Organization [place] Address [address] [facility] [address] Care Team Providers Name Role Phone Teresita [...] do you attend hindu or Not asked scientology services? Do you [...] Depression Total Score: 2 11/25/2017 8:11 AM FINANCE BROKER documented as of this encounter Care Teams Plush Weaver Relationship Specialty Start Date End Date Teresita Garcia MD PCP - General Family Practice 01/22/11 [address] [facility], [place] [phone] Teresita Garcia MD PCP - Assigned PCP 11/16/16 11/30/18 [address] [facility], [place] [phone] Teresita Garcia MD Assigned PCP 11/16/16 12/28/21 [address] [facility], [place] [phone] documented as of this encounter
--- OUTSIDE RECORDS SUMMARY | 2022-08-21 17:00 | XMS_ITS | Encounter Summary ---
:1960 Author Organization [place] Address [address] [place] [address] Care Team Providers Name Role Phone Teresita Garcia MD Primary Care Provider Teresita Garcia MD Unavailable Reason for Visit Reason Onset Date Comments Forms 11/22/2019 Physician Order Encounter Details Date Type Department Care Team Description 11/22/2019 Telephone [facility] Teresita Garcia MD Forms (Physician Order) Clinic [address] [place] [phone] Social History Tobacco Use Types Packs/Day [...] you attend latter day or Not asked worship services? Do you [...] PM CST Form Faxed, 11/24/2019 Jackie Brito/AWILDA AL JUDGE Telephone Encounter - Rosy Brito - 11/22/2019 11:57 AM CST Received 2 page fax for Physician Order for Dr Garcia to complete. Form in the in- basket at [facility] in AA's folder. AL JUDGE documented in this encounter Plan of Treatment Not on filedocumented as of this encounter Visit Diagnoses Not on filedocumented in this encounter Additional Health Concerns Assessment Noted Time PHQ-9 Depression Total Score: 5 11/25/2018 3:25 PM TRIBAL JUDGE documented as of this encounter Care Teams Foreign Legal Consultant Relationship Specialty Start Date End Date Teresita Garcia MD PCP - General Family Practice 01/22/11 [address] [place] [address] Teresita Garcia MD Assigned PCP 11/16/16 12/28/21 [address] [place] [address] documented as of this encounter
--- OUTSIDE RECORDS SUMMARY | 2022-08-21 17:00 | XMS_ITS | Encounter Summary ---
:1960 Author Organization [place] Address [address] [place] [address] Care Team Providers Name Role Phone Teresita Garcia MD Primary Care Provider Reason for Visit Reason Onset Date Comments Home Care/Hospice 10/20/2016 home care assessment Encounter Details Date Type Department Care Team Description 10/20/2016 Telephone [facility] Teresita Garcia MD Home Care/Hospice (home Clinic [address] care assessment) [address] [place] [phone] Social History Tobacco Use Types Packs/Day Years [...] do you attend mosque or Not asked jewish services? Do you [...] RN, BSN Message handled by Nurse Triage. F OPERATOR documented in this encounter Plan of Treatment Not on filedocumented as of this encounter Visit Diagnoses Not on filedocumented in this encounter Additional Health Concerns Assessment Noted Time PHQ-9 Depression Total Score: 4 10/18/2016 7:15 AM WHARF OPERATOR documented as of this encounter Care Teams Law Office Assistant Relationship Specialty Start Date End Date Teresita Garcia MD PCP - General Family Practice 01/22/11 [address] [place] [address] documented as of this encounter
--- OUTSIDE RECORDS SUMMARY | 2022-08-21 17:00 | XMS_ITS | Encounter Summary ---
:1960 Author Organization [place] Address [address] [place] [address]. [place] [address] Care Team Providers Name Role Phone Teresita Garcia MD Primary Care Provider Reason for Visit Reason Comments Hospital F/U MS relapse Encounter Details Date Type Department Care Team Description 10/17/2016 Office Visit [facility] Teresita Garcia MD Major depressive disorder, single episod e, mild (H) (Primary Dx); Clinic [address] Multiple sclerosis (H); [address] [place] [address] Screening for hyperlipidemia [place], [place] [phone] Social History Tobacco Use Types Packs/Day [...] do you attend faith or Not asked faith services? Do you [...] Comments Blood Pressure 110/78 10/17/2016 11:05 AM RANGER AIDE Pulse 100 10/17/2016 11:05 AM RANGER AIDE Temperature 36.8 ??C (98.3 ??F) 10/17/2016 11:05 AM RANGER AIDE Respiratory Rate 20 10/17/2016 11:05 AM RANGER AIDE Oxygen Saturation 97% 10/17/2016 11:05 AM RANGER AIDE Inhaled Oxygen Concentration - - Weight 73.5 kg (162 lb) 10/17/2016 11:05 AM RANGER AIDE Height 171.5 cm (5' 7.5) 10/17/2016 11:05 AM RANGER AIDE Body Mass Index 25 10/17/2016 11:05 AM RANGER AIDE documented in this encounter Progress Notes Teresita Garcia MD - 10/17/2016 10:59 AM CST SUBJECTIVE: Dejuan Rodriguez is a 55 year old male who presents to clinic today for the following health issues: Hospital Follow-up Visit: Hospital/Longterm/ Rehab Facility: [facility] Date of Admission: 09/29/16 Date of Discharge: [...] this visit: Type of Medical Decision Making Yunq-yi-Klek Visit within 7 Days of discharge Uajq-cp-Gkie Visit within 14 days of discharge Moderate Complexity [id number] High Complexity [id number] Problem list and histories reviewed & adjusted, as indicated. Additional history: as documented Patient Active Problem List Diagnosis ??? Multiple sclerosis (H) ??? CARDIOVASCULAR SCREENING; LDL GOAL LESS THAN 160 ??? Cannabis abuse ??? Baclofen pump failure ??? Spasticity ??? Seborrheic dermatitis of scalp ??? Status post hip replacement ??? Wgsg-Ltaym-Vlipglb disease ??? Atopic rhinitis ??? Major depressive [...] RNA Quant and Genotype Teresita Garcia MD [facility] ER AIDE documented in this encounter Nursing Notes Yumiko Camp, BETA TESTER - 10/17/2016 11:08 AM CST Chief Complaint [...] using cuff size regular Yumiko Camp CMA ER AIDE documented in this encounter Plan of Treatment Not on filedocumented as of this encounter Procedures Procedure Name Priority Date/Time Associated Diagnosis Comme nts HEPATITIS C SCREEN Routine 10/17/2016 11:36 Screening for Resu lts for this REFLEX TO HCV RNA AM RANGER AIDE hyperlipidemia procedur e are in QUANT AND GENOTYPE the resul ts section. LIPID REFLEX TO Routine 10/17/2016 11:36 Screening for Results for this DIRECT LDL PANEL AM RANGER AIDE hyperlipidemia procedure are in the results section. documented in this encounter Results Lipid panel reflex to direct LDL (10/17/2016 11:36 AM RANGER AIDE) [facility] Method Time Signature Cholesterol 144 <200 [place] mg/dL [facility] Triglycerides 112 <150 [place] mg/dL [facility] HDL Cholesterol 70 >39 mg/dL [facility] LDL Cholesterol 52 <100 [place] Calculated mg/dL [facility] Comment: Desirable: <100 mg/dl Non HDL Cholesterol 74 <130 mg/dL [facility] Specimen Anatomical Collection Method Collection Time Receive d Time (Source) Location / / Volume Laterality Blood specimen 10/17/2016 11:36 7 (specimen) AM RANGER AIDE 11:37 AM RANGER AIDE Teresita Garcia MD LAB - BLOOD ORDERABLES Performing Organization Address City/State/ZIP Code Phon e Number [facility] [address] [place] [address] Hepatitis C Screen Reflex to HCV RNA Quant and Genotype (10/17/2016 11:36 AM RANGER AIDE) Component Value Ref Test Analysis Performed At [facility] [place] Method Time Signature Hepatitis C Nonreactive NR [facility] Antibody Assay performance character istics have not been established for newborns, [place] [facility] infants, and children [facility] Specimen Anatomical Collection Method Collection Time Receive d Time (Source) Location / / Volume Laterality Blood specimen 10/17/2016 11:36 7 (specimen) AM RANGER AIDE 11:37 AM RANGER AIDE Teresita Garcia MD LAB - BLOOD ORDERABLES Performing Organization Address City/State/ZIP Code Phon e Number [facility] [address] [place] [address] [place] documented in this encounter Visit Diagnoses Diagnosis Major depressive disorder, single episod e, mild (H) - Primary Major depressive disorder, single episod e, mild Multiple sclerosis (H) Multiple sclerosis Screening for hyperlipidemia Screening for lipoid disorders documented in this encounter Additional Health Concerns Assessment Noted Time PHQ-9 Depression Total Score: 4 10/18/2016 7:15 AM RANGER AIDE documented as of this encounter Care Teams Inker Machine Relationship Specialty Start Date End Date Teresita Garcia MD PCP - General Family Practice 01/22/11 [address] [place] [address] documented as of this encounter
--- OUTSIDE RECORDS SUMMARY | 2022-08-21 17:00 | XMS_ITS | Encounter Summary ---
:1960 Author Organization [place] Address [address] [place] [address] Care Team Providers Name Role Phone Teresita Garcia MD Primary Care Provider Teresita Garcia MD Unavailable Reason for Visit Reason Onset Date Comments Refill Request 08/19/2019 Encounter Details Date Type Department Care Team Description 08/19/2019 Refill [facility] Roel Garcia MD Refill Request [address] [address] [place] [address] [phone] Social History Tobacco Use Types Packs/Day Years [...] do you attend restorationist or Not asked confucianist services? Do you [...] Depression Total Score: 5 11/25/2018 3:25 PM PATIENT CONSUMER MARKETER documented as of this encounter Care Teams Sales Department Manager Relationship Specialty Start Date End Date Teresita Garcia MD PCP - General Family Practice 01/22/11 [address] [place], [place] [phone] Teresita Garcia MD Assigned PCP 11/16/16 12/28/21 [address] [place] [address] documented as of this encounter
--- OUTSIDE RECORDS SUMMARY | 2022-08-21 17:00 | XMS_ITS | Encounter Summary ---
:1960 Author Organization [place] Address [facility] [place] [address] Care Team Providers Name Role Phone Teresita Garcia MD Primary Care Provider Teresita Garcia MD Unavailable Encounter Details Date Type Department Care Team Description 11/17/2019 Telephone [facility] Roel Garcia MD [place] [address] [phone] Social History Tobacco Use Types Packs/Day Years [...] do you attend taoism or Not asked uatsdin services? Do you [...] order given to Home care.-Shanda Soto, EMTB PING LEAD documented in this encounter Plan of Treatment Not on filedocumented as of this encounter Visit Diagnoses Not on filedocumented in this encounter Additional Health Concerns Assessment Noted Time PHQ-9 Depression Total Score: 5 11/25/2018 3:25 PM SHIPPING LEAD documented as of this encounter Care Teams Warehouse Engineer Relationship Specialty Start Date End Date Teresita Garcia MD PCP - General Family Practice 01/22/11 [address] [place], [place] [phone] Teresita Garcia MD Assigned PCP 11/16/16 12/28/21 [address] [place] [address] documented as of this encounter
--- OUTSIDE RECORDS SUMMARY | 2022-08-21 17:00 | XMS_ITS | Encounter Summary ---
:1960 Author Organization [place] Address [address] [facility] [place] [address] Care Team Providers Name Role Phone Teresita Garcia MD Primary Care Provider Teresita Garcia MD Unavailable Teresita Garcia MD Unavailable Reason for Visit Reason Comments Medication Refill Alendronate Encounter Details Date Type Department Care Team Description 12/22/2017 Refill [facility] Roel Garcia MD Medication Refill [place] [id number] [place] [address] (Alendronate) [address] [place] [phone] Social History Tobacco Use Types Packs/Day Years [...] do you attend sikhism or Not asked hoahaoism services? Do you [...] PM CDT Ordered. Thanks. Teresita Garcia MD [facility] [phone] Telephone Encounter - Karen Covarrubias RN - [...] prescribed it and why? Teresita Garcia MD [facility] [phone] r Telephone Encounter - Deann Lora RN [...] to contact him instead. Teresita Garcia MD [facility] [phone] Telephone Encounter - Hal Sierra RN - [...] Depression Total Score: 2 11/25/2017 8:11 AM THORACIC SURGEON documented as of this encounter Care Teams Pipe And Test Supervisor Relationship Specialty Start Date End Date Teresita Garcia MD PCP - General Family Practice 01/22/11 [address] [place], [place] [phone] Teresita Garcia MD PCP - Assigned PCP 11/16/16 11/30/18 [address] [place] [address] Teresita Garcia MD Assigned PCP 11/16/16 12/28/21 [address] [place] [address] documented as of this encounter
--- OUTSIDE RECORDS SUMMARY | 2022-08-21 17:00 | XMS_ITS | Encounter Summary ---
:1960 Author Organization [place] Address [address] [facility] [place] [address] Care Team Providers Name Role Phone Teresita Garcia MD Primary Care Provider Teresita Garcia MD Unavailable Teresita Garcia MD Unavailable Reason for Referral Care Coordination - Closed Specialty Diagnoses / Procedures Referred By Contact Refer red To Contact Diagnoses Multiple sclerosis (H) Teresita Garcia MD [facility] [id number] [facility] [address] [place], [place] [address] [place] [address] Phone: Referral ID Status Reason Start Date Expiration Date Visits Requ ested Visits Authorized [id number] Closed 11/24/2017 11/24/2018 1 1 LIFE CONSERVATION OFFICER Reason for Visit Reason Comments Foot Problems swelling in both feet xsever al months Encounter Details Date Type Department Care Team Description 11/24/2017 Office Visit [facility] Teresita Garcia MD Leg swelling (Primary Dx); Clinic [place] [id number] [place] [address] Venous stasis; [address] [place], [place] Multiple sclerosis ([place]) [place] [phone] Social History Tobacco Use Types Packs/Day Years [...] do you attend lutheran or Not asked anglican services? Do you belong to any clubs or Not asked organizations such as lutheran groups, unions, fraITC or athletic groups, or school groups? How [...] Comments Blood Pressure 119/78 11/24/2017 11:13 AM WILDLIFE CONSERVATION OFFICER Pulse 85 11/24/2017 11:13 AM WILDLIFE CONSERVATION OFFICER Temperature 36.7 ??C (98 ??F) 11/24/2017 11:13 AM WILDLIFE CONSERVATION OFFICER Respiratory Rate 20 11/24/2017 11:13 AM WILDLIFE CONSERVATION OFFICER Oxygen Saturation 100% 11/24/2017 11:13 AM WILDLIFE CONSERVATION OFFICER Inhaled Oxygen Concentration - - Weight 76.7 kg (169 lb) 11/24/2017 11:13 AM WILDLIFE CONSERVATION OFFICER Height 171.5 cm (5' 7.5) 11/24/2017 11:13 AM WILDLIFE CONSERVATION OFFICER Body Mass Index 26.08 11/24/2017 11:13 AM WILDLIFE CONSERVATION OFFICER documented in this encounter Progress Notes Teresita [...] scalp ??? Status post hip replacement ??? Mmkb-Hhbqy-Wjeegnx disease ??? Atopic rhinitis ??? Major depressive [...] - CARE COORDINATION REFERRAL Teresita Garcia MD [facility] LIFE CONSERVATION OFFICER documented in this encounter Plan of Treatment Not on filedocumented as of this encounter Procedures Procedure Name Priority Date/Time Associated Comments Diagnosis N TERMINAL PRO BNP Routine 11/24/2017 11:45 AM Venous stasis R esults for this OUTPATIENT WILDLIFE CONSERVATION OFFICER procedure are i n the results section. HEPATIC FUNCTION Routine 11/24/2017 11:45 AM Venous stasis Res ults for this PANEL WILDLIFE CONSERVATION OFFICER procedure are i n the results section. BASIC METABOLIC Routine 11/24/2017 11:45 AM Venous stasis Resu lts for this PANEL WILDLIFE CONSERVATION OFFICER procedure are i n the results section. CBC WITH PLATELETS Routine 11/24/2017 11:45 AM Venous stasis R esults for this WILDLIFE CONSERVATION OFFICER procedure are i n the results section. documented in this encounter Results (ABNORMAL) Hepatic panel (11/24/2017 11:45 AM WILDLIFE CONSERVATION OFFICER) Patholo gist Method Time Signature Bilirubin Direct 0.1 0.0 - 0.2 11/24/2017 [place] mg/dL 5:24 PM WILDLIFE CONSERVATION OFFICER [facility] Bilirubin Total 0.7 0.2 - 1.3 11/24/2017 [place] mg/dL 5:24 PM WILDLIFE CONSERVATION OFFICER [facility] Albumin 3.6 3.4 - 5.0 11/24/2017 [place] g/dL 5:24 PM WILDLIFE CONSERVATION OFFICER [facility] Protein Total 6.6 (L) 6.8 - 8.8 11/24/2017 [place] g/dL 5:24 PM [facility] Alkaline 58 40 - 150 11/24/2017 [place] Phosphatase U/L 5:25 PM [facility] ALT 27 0 - 70 11/24/2017 [facility] U/L 5:24 PM WILDLIFE CONSERVATION OFFICER [facility] AST 24 0 - 45 11/24/2017 [facility] U/L 5:24 PM [facility] Specimen Anatomical Collection Method Collection Time Receive d Time (Source) Location / / Volume Laterality Blood specimen 11/24/2017 11:45 8 (specimen) AM WILDLIFE CONSERVATION OFFICER 11:46 AM WILDLIFE CONSERVATION OFFICER Teresita Garcia MD LAB - BLOOD ORDERABLES Performing Organization Address City/State/ZIP Code Phon e Number [facility] [address] [place] [address] CBC with platelets (11/24/2017 11:45 AM WILDLIFE CONSERVATION OFFICER) P athologist Signature WBC 8.6 4.0 - 11.0 11/24/2017 [place] 10e9/L 12:09 PM WILDLIFE CONSERVATION OFFICER [facility] RBC Count 4.75 4.4 - 5.9 11/24/2017 [place] 10e12/L 12:09 PM WILDLIFE CONSERVATION OFFICER [facility] Hemoglobin 14.6 13.3 - 11/24/2017 [place] 17.7 g/dL 12:09 PM WILDLIFE CONSERVATION OFFICER [facility] Hematocrit 43.1 40.0 - 11/24/2017 [place] 53.0 % 12:09 PM [facility] MCV 91 78 - 100 11/24/2017 [place] fl 12:09 PM WILDLIFE CONSERVATION OFFICER [facility] MCH 30.7 26.5 - 11/24/2017 [place] 33.0 pg 12:09 PM [facility] MCHC 33.9 31.5 - 11/24/2017 [place] 36.5 g/dL 12:09 PM [facility] RDW 12.7 10.0 - 11/24/2017 [place] 15.0 % 12:09 PM [facility] Platelet Count 168 150 - 450 11/24/2017 [place] 10e9/L 12:09 PM [facility] Specimen Anatomical Collection Method Collection Time Receive d Time (Source) Location / / Volume Laterality Blood specimen 11/24/2017 11:45 8 (specimen) AM WILDLIFE CONSERVATION OFFICER 11:46 AM WILDLIFE CONSERVATION OFFICER Teresita Garcia MD LAB - BLOOD ORDERABLES Performing Organization Address City/State/ZIP Code Phon e Number [facility] [address] [place] [address] N terminal pro BNP outpatient (11/24/2017 11:45 AM WILDLIFE CONSERVATION OFFICER) athologist Signature N-Terminal Pro 40 0 - 125 11/24/2017 [facility] Bnp pg/mL 6:47 PM WILDLIFE CONSERVATION OFFICER [facility] Comment: Reference range [...] Blood specimen 11/24/2017 11:45 8 (specimen) AM WILDLIFE CONSERVATION OFFICER 11:46 AM WILDLIFE CONSERVATION OFFICER Teresita Garcia MD LAB - BLOOD ORDERABLES Performing Organization Address City/State/ZIP Code Phon e Number [facility] [address] [place] [address] [facility] Basic metabolic panel (11/24/2017 11:45 AM WILDLIFE CONSERVATION OFFICER) P athologist Signature Sodium 139 133 - 144 11/24/2017 [facility] mmol/L 5:24 PM [facility] Potassium 3.7 3.4 - 5.3 11/24/2017 [place] mmol/L 5:24 PM [facility] Chloride 105 94 - 109 11/24/2017 [facility] mmol/L 5:24 PM [facility] Carbon Dioxide 31 20 - 32 11/24/2017 [place] mmol/L 5:24 PM [facility] Anion Gap 3 3 - 14 11/24/2017 [place] mmol/L 5:24 PM [facility] Glucose 95 70 - 99 11/24/2017 [place] mg/dL 5:24 PM [facility] Urea Nitrogen 15 7 - 30 11/24/2017 [facility] mg/dL 5:24 PM [facility] Creatinine 0.96 0.66 - 11/24/2017 [place] 1.25 mg/dL 5:24 PM [facility] GFR Estimate 81 >60 11/24/2017 [place] mL/min/1.7 5:[address] Comment: Non GFR Calc GFR Estimate If >90 >60 mL/min/1.7m2 11/24/2017 5:24 P M [facility] Black [facility] Comment: GFR Calc Calcium 9.2 8.5 - 10.1 mg/dL 11/24/2017 5:24 PM [facility] Specimen Anatomical Collection Method Collection Time Receive d Time (Source) Location / / Volume Laterality Blood specimen 11/24/2017 11:45 8 (specimen) AM WILDLIFE CONSERVATION OFFICER 11:46 AM WILDLIFE CONSERVATION OFFICER Teresita Garcia MD LAB - BLOOD ORDERABLES Performing Organization Address City/State/ZIP Code Phon e Number [facility] [address] [place] [address] documented in this encounter Visit Diagnoses Diagnosis Leg swelling - Primary Swelling of limb Venous stasis Unspecified venous (peripheral) insuffic iency Multiple sclerosis (H) Multiple sclerosis documented in this encounter Additional Health Concerns Assessment Noted Time PHQ-9 Depression Total Score: 2 11/25/2017 8:11 AM WILDLIFE CONSERVATION OFFICER documented as of this encounter Care Teams Sheet Metal Former Relationship Specialty Start Date End Date Teresita Garcia MD PCP - General Family Practice 01/22/11 [address] [place], [place] [phone] Teresita Garcia MD PCP - Assigned PCP 11/16/16 11/30/18 [address] [place], [place] [phone] Teresita Garcia MD Assigned PCP 11/16/16 12/28/21 [address] [place], [place] [phone] documented as of this encounter
--- OUTSIDE RECORDS SUMMARY | 2022-08-21 17:00 | XMS_ITS | Encounter Summary ---
:1960 Author Organization [place] Address [address] [facility] [place] [address] Care Team Providers Name Role Phone Teresita [...] do you attend denominational or Not asked anabaptism services? Do you [...] Depression Total Score: 5 11/25/2018 3:25 PM UNDERWRITING MANAGER documented as of this encounter Care Teams Hygiene Teacher Relationship Specialty Start Date End Date Teresita Garcia MD PCP - General Family Practice 01/22/11 [address] [place] [address] Teresita Garcia MD Assigned PCP 11/16/16 12/28/21 [address] [place] [address] documented as of this encounter
--- OUTSIDE RECORDS SUMMARY | 2022-08-21 17:00 | XMS_ITS | Encounter Summary ---
:1960 Author Organization [place] Address [address] [place] [address] Care Team Providers Name Role Phone Teresita Garcia MD Primary Care Provider Teresita Garcia MD Unavailable Treesita Garcia MD Unavailable Reason for Visit Reason Onset Date Comments Forms 11/26/2016 [facility] Encounter Details Date Type Department Care Team Description 11/26/2016 Telephone [facility] Teresita Garcia MD Forms ([address]) [address] [place] [phone] Social History Tobacco Use Types [...] do you attend rastafarian or Not asked jew services? Do you [...] PM CST Form completed and faxed,11/27/16 Jackie Brito/[facility] HEALTH NURSE Telephone Encounter - Malena Hankins - 11/26/2016 1:52 PM CST Recd 2 page fax from [facility]. Please complete Face to Face Encounter and fax to [phone]. Form in AA folder at [place]. Malena Hankins Sample Finisher HEALTH NURSE documented in this encounter Plan of Treatment Not on filedocumented as of this encounter Visit Diagnoses Not on filedocumented in this encounter Additional Health Concerns Assessment Noted Time PHQ-9 Depression Total Score: 4 10/18/2016 7:15 AM HOME HEALTH NURSE documented as of this encounter Care Teams Director Work Relationship Specialty Start Date End Date Teresita Garcia MD PCP - General Family Practice 01/22/11 [address] [place] [address] Teresita Garcia MD PCP - Assigned PCP 11/16/16 11/30/18 [address] [place] [address] Teresita Garcia MD Assigned PCP 11/16/16 12/28/21 [address] [place] [address] documented as of this encounter
--- OUTSIDE RECORDS SUMMARY | 2022-08-21 17:00 | XMS_ITS | Encounter Summary ---
:1960 Author Organization [place] Address [address] [facility] [address] Care Team Providers Name Role Phone eTresita Garcia MD Primary Care Provider Teresita Garcia [...] do you attend taoist or Not asked christianity services? Do you [...] Total Score: 5 11/25/2018 3:25 PM ASSOCIATE SOFTWARE ENGINEER documented as of this encounter Care Teams Sociology Instructor Relationship Specialty Start Date End Date Teresita Garcia MD PCP - General Family Practice 01/22/11 [address] [place] [address] Teresita Garcia MD Assigned PCP 11/16/16 12/28/21 [address] [place] [address] documented as of this encounter
--- OUTSIDE RECORDS SUMMARY | 2022-08-21 17:00 | XMS_ITS | Encounter Summary ---
:1960 Author Organization [place] Address [address] [facility] [place] [address] Care Team Providers Name Role Phone Teresita Garcia MD Primary Care Provider Teresita Garcia MD Unavailable Encounter Details Date Type Department Care Team Description 11/24/2019 Medical Correspondence [facility] [place] Scan, ORDER SUMMARY Health Info Mgmt Non-Provider [facility] HE[facility] [address] [place] [phone] Social History Tobacco Use Types Packs/Day [...] do you attend adventism or Not asked jainism services? Do you [...] Total Score: 5 11/25/2018 3:25 PM DIRECTOR CHILD ABUSE THERAPY documented as of this encounter Care Teams Hematology Oncology Consultant Relationship Specialty Start Date End Date Teresita Garcia MD PCP - General Family Practice 01/22/11 [address] [place], [place] [phone] Teresita Garcia MD Assigned PCP 11/16/16 12/28/21 [address] [place] [address] documented as of this encounter
--- OUTSIDE RECORDS SUMMARY | 2022-08-21 17:00 | XMS_ITS | Encounter Summary ---
:1960 Author Organization [place] Address [address] [facility] [place] [address] Care Team Providers Name Role Phone Teresita Garcia MD Primary Care Provider Teresita Garcia MD Unavailable Encounter Details Date Type Department Care Team Description 11/21/2019 Medical Correspondence [facility] Scan, PLAN OF CARE [facility] Non-Provider [facility] /HOSPICE [facility] [address] [place] [address] Social History Tobacco Use Types [...] do you attend yarsani or Not asked baptism services? Do you [...] Depression Total Score: 5 11/25/2018 3:25 PM CONVENTION SERVICES DIRECTOR documented as of this encounter Care Teams Heavy Duty Diesel Mechanic Relationship Specialty Start Date End Date Teresita Garcia MD PCP - General Family Practice 01/22/11 [address] [place], [place] [phone] Teresita Garcia MD Assigned PCP 11/16/16 12/28/21 [address] [place], [place] [phone] documented as of this encounter
--- OUTSIDE RECORDS SUMMARY | 2022-08-21 17:00 | XMS_ITS | Encounter Summary ---
:1960 Author Organization [place] Address [address] [facility] [place] [address] Care Team Providers Name Role Phone Teresita Garcia MD Primary Care Provider Teresita Garcia MD Unavailable Teresita Garcia MD Unavailable Reason for Visit Reason Onset Date Comments Refill Request 07/09/2018 alendronate (FOSAMAX ) 70 MG tablet Encounter Details Date Type Department Care Team Description 07/09/2018 Refill [facility] Roel Garcia MD Refill Request [address] (alendronate (FOSAMAX) [address] [place] [address] 70 MG tablet) [place] [phone] Social History Tobacco Use Types Packs/Day Years [...] do you attend lutheran or Not asked tenriism services? Do you [...] provider for review/approval because: Labs not current: DEXA Wilda Schroeder RN, BSN Telephone Encounter - Stefani Hall - 07/09/2018 4:49 PM CDT Requested Prescriptions Pending Prescriptions Disp Refills ??? alendronate (FOSAMAX) 70 MG tablet [Pharmacy Med Name: ALENDRONATE SODIUM 70 MG TAB] Last Written Prescription Date: 12/25/2017 Last Fill Quantity: 12 tablet, # refills: 3 Last office visit: 11/24/2017 with prescribing provider: Jose Nelson tablet 1 Sig: TAKE 1 TAB BY [...] Depression Total Score: 2 11/25/2017 8:11 AM HAZMAT TECHNICIAN documented as of this encounter Care Teams Motor Mechanic Relationship Specialty Start Date End Date Teresita Garcia MD PCP - General Family Practice 01/22/11 [address] [place], [place] [phone] Teresita Garcia MD PCP - Assigned PCP 11/16/16 11/30/18 [address] [place] [address] Teresita Garcia MD Assigned PCP 11/16/16 12/28/21 [address] [place], [place] [phone] documented as of this encounter
--- OUTSIDE RECORDS SUMMARY | 2022-08-21 17:00 | XMS_ITS | Encounter Summary ---
:1960 Author Organization [place] Address [address] [facility] [place] [address] Care Team Providers Name Role Phone Teresita Garcia MD Primary Care Provider Teresita Garcia MD Unavailable Encounter Details Date Type Department Care Team Description 11/16/2019 Medical Correspondence [facility] Scan, TRANSFER SUMMARY Health Info Mgmt Non-Provider [facility] C[facility] [address] [place] [phone] Social History Tobacco Use Types Packs/Day [...] Depression Total Score: 5 11/25/2018 3:25 PM SAP BPC DEVELOPER documented as of this encounter Care Teams Washing Machine Operator Relationship Specialty Start Date End Date Teresita Garcia MD PCP - General Family Practice 01/22/11 [address] [place], [place] [phone] Teresita Garcia MD Assigned PCP 11/16/16 12/28/21 [address] [place], [place] [phone] documented as of this encounter
--- OUTSIDE RECORDS SUMMARY | 2022-08-21 17:00 | XMS_ITS | Encounter Summary ---
:1960 Author Organization [place] Address [address] [facility] [place] [address] Care Team Providers Name Role Phone Teresita Garcia MD Primary Care Provider Teresita Garcia MD Unavailable Teresita Garcia MD Unavailable Encounter Details Date Type Department Care Team Description 12/16/2016 Medical Correspondence [facility] VIKA Bray [facility] Non-Provider DOCUMENTATION OF FACE Health Information TO FACE E NCOUNTER Management-CHERISE 10/17/[address] [place] [address] Social History Tobacco Use Types [...] do you attend restorationism or Not asked adventism services? Do you [...] Depression Total Score: 4 10/18/2016 7:15 AM CORE DRILLER HELPER documented as of this encounter Care Teams Storm Sash Maker Relationship Specialty Start Date End Date Teresita Garcia MD PCP - General Family Practice 01/22/11 [address] [place], [place] [phone] Teresita Garcia MD PCP - Assigned PCP 11/16/16 11/30/18 [address] [place] [address] Teresita Garcia MD Assigned PCP 11/16/16 12/28/21 [address] [place], [place] [phone] documented as of this encounter
--- OUTSIDE RECORDS SUMMARY | 2022-08-21 17:00 | XMS_ITS | Encounter Summary ---
:1960 Author Organization [place] Address [address] [facility] [place] [address] Care Team Providers Name Role Phone Teresita Garcia MD Primary Care Provider Teresita Garcia MD Unavailable Teresita Garica MD Unavailable Reason for Visit Reason Comments Pre-Op Exam Encounter Details Date Type Department Care Team Description 11/25/2018 Office Visit [facility] Teresita Garcia MD Preop general physical exam (Primary Dx) ; Clinic [address] Osteoporosis without current pathologica l fracture, unspecified osteoporosis type [id number] [place] [phone] Social History Tobacco Use Types Packs/Day [...] do you attend caodaism or Not asked confucianism services? Do you [...] Comments Blood Pressure 121/83 11/25/2018 3:16 PM DOUGHNUT GLAZIER Pulse 98 11/25/2018 3:16 PM DOUGHNUT GLAZIER Temperature 36.7 ??C (98.1 ??F) 11/25/2018 3:16 PM DOUGHNUT GLAZIER Respiratory Rate 20 11/25/2018 3:16 PM DOUGHNUT GLAZIER Oxygen Saturation 97% 11/25/2018 3:16 PM DOUGHNUT GLAZIER Inhaled Oxygen Concentration - - Weight 78 kg (172 lb) 11/25/2018 3:16 PM DOUGHNUT GLAZIER Height 171.5 cm (5' 7.5) 11/25/2018 3:16 PM DOUGHNUT GLAZIER Body Mass Index 26.54 11/25/2018 3:16 PM DOUGHNUT GLAZIER documented in this encounter Patient Instructions Patient [...] and have clean sheets on your bed. HNUT GLAZIER documented in this encounter Progress Notes Teresita Garcia MD - 11/25/2018 3:00 PM CST [address] [address] Dept: [phone] PRE-OP EVALUATION: Today's date: 11/25/2018 Dejuan Rodriguez (: 1960) presents for pre-operative evaluation assessment as requested byDr. Ruiz. He requires evaluation and anesthesia risk assessment prior to undergoing surgery/procedure for treatment of bladder . Proposed Surgery/ Procedure: remove bladder stone Date of Surgery/ Procedure: 12/02/18 Time of Surgery/ Procedure: 11:30 Hospital/Surgical Facility: [facility] Primary Physician: Teresita Garcia Type of Anesthesia [...] process. Provider to review and confirm.) ??? Zlov-Sihjd-Qrnxmgi disease 05/14/2011 Priority: Medium ??? Atopic rhinitis [...] ??? Multiple sclerosis (H) sees neurology at [facility] ??? Osteoporosis 01/20/2017 In the spine. ??? [...] cardiovascular risks for perioperative complications such as (NM, PE, VFib and 3?? AV Block): No [...] evaluation report is provided to requesting physician. [place] Preop Guidelines Revised Cardiac Risk Index HNUT GLAZIER documented in this encounter Plan of Treatment Not on filedocumented as of this encounter Procedures Procedure Name Priority Date/Time Associated Diagnosis Comme nts VITAMIN D Routine 11/25/2018 3:43 PM Osteoporosis without R esults for this DEFICIENCY DOUGHNUT GLAZIER current pathological procedu re are in SCREENING fracture, unspecified the re sults osteoporosis type section. CREATININE Routine 11/25/2018 3:43 PM Preop general Results for this DOUGHNUT GLAZIER physical exam procedure are in the results section. documented in this encounter Results Creatinine (11/25/2018 3:43 PM DOUGHNUT GLAZIER) P athologist Signature Creatinine 0.99 0.66 - 11/26/2018 [facility] 1.25 mg/dL 1:15 PM [facility] GFR Estimate 84 >60 11/26/2018 [facility] mL/min/{1. 1:15 PM [facility] 73_m2} [facility] Comment: Non GFR Calc Starting 09/14/2018, serum creatinine ba sed estimated GFR (eGFR) will be calculated using the Chronic Kidney Dise ase Epidemiology Collaboration (CKD-EPI) equation. GFR Estimate If >90 >60 mL/min/{1.73_m2} 11/26/2018 1: 15 PM [facility] Comment: GFR Calc Starting 09/14/2018, serum creatinine ba sed estimated GFR (eGFR) will be calculated using the Chronic Kidney Dise ase Epidemiology Collaboration (CKD-EPI) equation. Specimen Anatomical Collection Method Collection Time Receive d Time (Source) Location / / Volume Laterality Blood specimen 11/25/2018 3:43 PM 019 3:44 (specimen) DOUGHNUT GLAZIER PM DOUGHNUT GLAZIER Teresita Garcia MD LAB - BLOOD ORDERABLES Performing Organization Address City/State/ZIP Code Phon e Number [facility] [address] [place] [address] Vitamin D Deficiency (11/25/2018 3:43 PM DOUGHNUT GLAZIER) athologist Signature Vitamin D 58 20 - 75 11/26/2018 [facility] ug/L 4:38 PM DOUGHNUT GLAZIER [place] [facility] Comment: Season, race, dietary intake, and treatm ent affect the concentration of 16-eallnqr-Wssxdkt D. Values may decreas e during winter [...] specimen 11/25/2018 3:43 PM 019 3:44 (specimen) DOUGHNUT GLAZIER PM DOUGHNUT GLAZIER Teresita Garcia MD LAB - BLOOD ORDERABLES Performing Organization Address City/State/ZIP Code Phon e Number [facility] [address] [place] [address] [facility] documented in this encounter Visit Diagnoses Diagnosis Preop general physical exam - Primary Other specified pre-operative examinatio n Osteoporosis without current pathologica l fracture, unspecified osteoporosis type documented in this encounter Additional Health Concerns Assessment Noted Time PHQ-9 Depression Total Score: 5 11/25/2018 3:25 PM DOUGHNUT GLAZIER documented as of this encounter Care Teams Breaker Mechanic Relationship Specialty Start Date End Date Teresita Garcia MD PCP - General Family Practice 01/22/11 [address] [place] [address] Teresita Garcia MD PCP - Assigned PCP 11/16/16 11/30/18 [address] [place] [address] Teresita Garcia MD Assigned PCP 11/16/16 12/28/21 [address] [place] [address] documented as of this encounter
--- OUTSIDE RECORDS SUMMARY | 2022-08-21 17:01 | XMS_ITS | Encounter Summary ---
:1960 Author Organization [place] Address [address] [facility] [place] [address] Care Team Providers Name Role Phone Teresita Garcia MD Primary Care Provider Reason for Referral Referral not Required - Closed Specialty Diagnoses / Procedures Referred By Contact Refer red To Contact Diagnoses Teresita Serrano MD [facility] [address] [facility] [address] [facility] [address] [place], [place] [address] [place] [address] Phone: [phone] Fax: Referral ID Status Reason Start Date Expiration Date Visits Requ ested Visits Authorized [id number] Closed 05/14/2011 11/10/2011 1 1 Reason for Visit Reason Comments Pre-Op Exam Encounter Details Date Type Department Care Team Description 05/14/2011 [facility] Preop general physical exam (Primary Dx) ; Clinic [place] [address] Other specified disease of hair and hair follicles; [address] [place], [place] Rhinitis, allergic, perennia l; [place] [address] [facility] [address] Social History Tobacco Use Types Packs/Day [...] do you attend amish or Not asked spiritism services? Do you belong to any clubs or Not asked organizations such as amish groups, unions, [employer] or athletic groups, or school groups? How [...] Wes Camp - 05/14/2011 11:27 AM CDT [address] [address] PRE-OP EVALUATION: Today's date: 05/14/2011 Dejuan Rodriguez (: 1960) presents for pre-operative evaluation assessment as requested byDr. Mejía. He requires evaluation and anesthesia risk assessment prior to undergoing surgery/procedure for treatment of baclofen pump . Date of Surgery/ Procedure: 05/15/11 Time of Surgery/ Procedure: 7:45 Hospital/Surgical Facility: [facility] Fax number for surgical facility: [phone] Primary Physician: Dr. Garcia Type of Anesthesia [...] ??? Multiple sclerosis sees neurology at [facility] ??? Juvenile osteochondrosis of hip and [...] Notes 05/14/2011 3:45 PM CDT >> WES BUNNY Wed May 14, 2011 4:03 PM Patient [...] athologist Signature Sodium 143 133 - 144 [facility] [place] mmol/L [facility] Potassium 4.2 3.4 - 5.3 [place] mmol/L [facility] Chloride 103 94 - 109 [place] mmol/L [facility] Carbon Dioxide 25 20 - 32 [place] mmol/L [facility] Anion Gap 15 6 - 17 [place] mmol/L [facility] Glucose 91 60 - 99 [place] mg/dL [facility] Urea Nitrogen 19 5 - 24 [place] mg/dL [facility] Creatinine 1.14 0.66 [facility] 1.25 [facility]/dL [facility] GFR Estimate 68 >60 [facility] mL/min/1.7 [facility] m2 GFR Estimate If 83 >60 [place] Black mL/min/1.7 [facility] m2 Calcium 9.9 8.5 - 10.4 [place] mg/dL [facility] Specimen Anatomical Collection Method Collection Time Receive d Time (Source) Location / / Volume Laterality Blood specimen 05/14/2011 4:31 PM 011 4:37 (specimen) CDT PM CDT Teresita Garcia MD LAB - BLOOD ORDERABLES Performing Organization Address City/State/ZIP Code Phon e Number [facility] [address] [place] [address] [facility] HEMOGLOBIN (05/14/2011 4:31 PM CDT) P athologist Signature Hemoglobin 16.0 13.3 - 17.7 [facility] g/dL [facility] Specimen Anatomical Collection Method Collection Time Receive d Time (Source) Location / / Volume Laterality Blood specimen 05/14/2011 4:31 PM 011 4:37 (specimen) CDT PM CDT Teresita Garcia MD LAB - BLOOD ORDERABLES Performing Organization Address City/[facility]/ZIP Code Phon e Number [facility] [address] [place] [address] [facility] documented in this encounter Visit Diagnoses Diagnosis Preop general physical exam - Primary Other specified pre-operative examinatio n Other specified disease of hair and hair follicles Rhinitis, allergic, perennial Allergic rhinitis, cause unspecified Moles Benign neoplasm of skin, site unspecifie d documented in this encounter Care Teams Quality Technician Fiberglass Relationship Specialty Start Date End Date Teresita Garcia MD PCP - General Family Practice 01/22/11 [address] [place] [address] documented as of this encounter
--- OUTSIDE RECORDS SUMMARY | 2022-08-21 17:01 | XMS_ITS | Encounter Summary ---
:1960 Author Organization [place] Address [address] [facility] [place] [address] Care Team Providers Name Role Phone Teresita Garcia MD Primary Care Provider Encounter Details Date Type Department Care Team Description 06/22/2013 Orders Only [facility] Ramón Shine le sclerosis (H) (Primary Dx); [facility] [place] Other ma lai and fatigue; Laboratory Other general symptoms; [address] [facility] Disturbance of skin sensatio n; [place], [place] Lack of seat scooper machine rdination; [address] Other abnormality of urinati on; [phone] Urinary tract i nfection, site not specified [...] do you attend anabaptism or Not asked oriental orthodox services? Do [...] ied documented in this encounter Care Teams Hotel Director Relationship Specialty Start Date End Date Teresita Garcia MD PCP - General Family Practice 01/22/11 [address] [place] [address] documented as of this encounter
--- OUTSIDE RECORDS SUMMARY | 2022-08-21 17:01 | XMS_ITS | Encounter Summary ---
:1960 Author Organization [place] Address [address] [facility] [address] [place] [address] Care Team Providers Name Role Phone Teresita Garcia MD Primary Care Provider Reason for Visit Auth/Cert - Closed Specialty Diagnoses / Procedures Referred By Contact Refer red To Contact Gastroenterology Diagnoses screening Endoscopy Procedures COLONOSCOPY [address] [place] [address] Phone: Fax: Referral ID Status Reason Start Date Expiration Date Visits Requ ested Visits Authorized [id number] Closed 1 1 Encounter Details Date Type Department Care Team Description 06/01/2013 Surgery [facility] Endoscopy Jacob Bhagat MD Colonoscopy [facility] GASTROENTEROLOGY [address] [facility] [address] [place] [address] [place] [address] [phone] (Wo rk) Surgery Details Date/Time Status Location [...] do you attend holiness or Not asked restorationism services? Do you belong to any clubs or Not asked organizations such as holiness groups, unions, [employer] or athletic groups, or school groups? How [...] scalp ??? Status post hip replacement ??? Zqsb-Jgfwe-Focxckw disease ??? Atopic rhinitis Past Medical History Diagnosis Date ??? Multiple sclerosis sees neurology at [facility] ??? Juvenile osteochondrosis of hip and [...] encounter Results COLONOSCOPY (06/01/2013 4:02 PM CDT) [facility] Method Time Signature COLONOSCOPY [facility] RAD IOLOGY RESULTS Patient Name: Dejuan Mayes alecia ?Procedure Date: 06/01/2013 4:02:59 PM ? Date of : 1960 ?Admit Type: Outpatient ? Age: 52 ? Gender: Male ? Attending MD: Jacob Ramírez MD ? Procedure: ?Colonoscopy Indications: ?Screening for colorec nick malignant neoplasm Providers: ?Jacob Simmons MD Referring MD: ? Teresita Garcia Md, MD Medicines: ?Fentanyl 100 micrograms IV, Midazolam 2 [...] Intra-procedure documented in this encounter Care Teams Networking Administrator Relationship Specialty Start Date End Date Teresita Garcia MD PCP - General Family Practice 01/22/11 [address] [place] [address] documented as of this encounter
--- OUTSIDE RECORDS SUMMARY | 2022-08-21 17:01 | XMS_ITS | Encounter Summary ---
:1960 Author Organization [place] Address [address] [facility] [place] [address] Care Team Providers Name Role Phone Teresita Garcia MD Primary Care Provider Encounter Details Date Type Department Care Team Description 06/22/2013 Orders Only [facility] Mul tiple sclerosis (H); [facility] Other malaise and fatigue; [address] [facility] Other general symptoms; [place], [place] Disturbance of skin sensation; [address] Lack of coordination; [phone] Other abnormali ty of urination; Urinary tract [...] do you attend hindu or Not asked spiritism services? Do you [...] Component Value Ref Test [facility] Range Method Time Signature Specimen Catheterized [place] Description Urine [facility] Culture Micro No growth [facility] Micro Report FINAL 06/24/2013 [facility] Specimen Anatomical Collection Method Collection Time Receive d Time (Source) Location / / Volume Laterality Urine specimen 06/22/2013 4:02 PM 013 4:06 (specimen) CDT PM CDT Ramón Shine MD LAB - MICRO GENERAL ORDERABL ES Performing Organization Address City/[facility] Code Phon e Number [facility] [address] [place], [place] [id number] Urine Microscopic (06/22/2013 4:01 PM CDT) P athologist Signature WBC Urine O - 2 0 - 2 /HPF [facility] RBC Urine O - 2 0 - 2 /HPF [facility] Squamous Few FEW /LPF [place] Epithelial /LPF [facility] Specimen Anatomical Collection Method Collection Time Receive d Time (Source) Location / / Volume Laterality 06/22/2013 4:01 PM 3 4:04 CDT PM CDT Ramón Shien MD LAB - URINE ORDERABLES Performing Organization Address City/[facility]/ZIP [facility] Phon e Number [facility] [address] [place], [place] [phone] (ABNORMAL) *UA reflex to Microscopic and Culture (06/22/2013 4:01 PM CDT) Component Value Ref Test Analysis Performed At [facility] gist Range Method Time Signature Color Urine Yellow [facility] Appearance Urine Clear [facility] Glucose Urine Negative NEG [place] mg/dL [facility] Bilirubin Urine Negative NEG [facility] Ketones Urine Negative NEG [place] mg/dL [facility] Specific [place] 1.010 1.003 - [place] Urine 1.035 [facility] Blood Urine Trace (A) NEG [facility] pH Urine 6.0 5.0 - [place] 7.[address] [facility] Protein Albumin Negative NEG [place] Urine mg/dL [facility] Urobilinogen 0.2 0.2 - [place] Urine 1.0 CLINICS EU/dL [place] Nitrite Urine Negative NEG [facility] Leukocyte Negative NEG [place] Esterase Urine [facility] Source Catheterized [place] Urine [facility] Specimen Anatomical Collection Method Collection Time Receive d Time (Source) Location / / Volume Laterality Urine specimen 06/22/2013 4:01 PM 013 4:04 (specimen) CDT PM CDT Ramón Shine MD LAB - URINE ORDERABLES Performing Organization Address City/State/ZIP Code Phon e Number [facility] [address] [place], [place] [phone] documented in this encounter Visit Diagnoses Diagnosis Multiple sclerosis (H) Multiple sclerosis Other malaise and fatigue Other general symptoms(780.99) Other general symptoms Disturbance of skin sensation Lack of coordination Other abnormality of urination(788.69) Other abnormality of urination Urinary tract infection, site not specif ied documented in this encounter Care Teams Dock Manager Relationship Specialty Start Date End Date Teresita Garcia MD PCP - General Family Practice 01/22/11 [address] [place] [address] documented as of this encounter
--- OUTSIDE RECORDS SUMMARY | 2022-08-21 17:01 | XMS_ITS | Encounter Summary ---
:1960 Author Organization [place] Address [facility] [place] [address] Care Team Providers Name Role Phone Teresita Garcia MD Primary Care Provider Reason for Visit Reason Comments Shoulder Injury left shoulder pain - fell on it x2 days Encounter Details Date Type Department Care Team Description 09/15/2014 Office Visit [facility] Teresita Garcia MD Shoulder injury, left, initial encounter (Primary Dx); Clinic [address] Mild major depression (H) [address] [place] [address] Social History Tobacco Use Types Packs/Day [...] or relatives? How often do you attend pentecostalism or Not asked church services? Do you belong to any clubs or Not asked organizations such as pentecostalism groups, unions, fraternal or athletic groups, or [...] Comments Blood Pressure 116/82 09/15/2014 1:59 PM BEHAVIORAL HEALTH TECHNICIAN Pulse 92 09/15/2014 1:59 PM BEHAVIORAL HEALTH TECHNICIAN Temperature 36.8 ??C (98.3 ??F) 09/15/2014 1:59 PM BEHAVIORAL HEALTH TECHNICIAN Respiratory Rate 20 09/15/2014 1:59 PM BEHAVIORAL HEALTH TECHNICIAN Oxygen Saturation 95% 09/15/2014 1:59 PM BEHAVIORAL HEALTH TECHNICIAN Inhaled Oxygen Concentration - - Weight 77.1 kg (170 lb) 09/15/2014 1:59 PM BEHAVIORAL HEALTH TECHNICIAN Height 171.5 cm (5' 7.5) 09/15/2014 1:59 PM BEHAVIORAL HEALTH TECHNICIAN Body Mass Index 26.23 09/15/2014 1:59 PM BEHAVIORAL HEALTH TECHNICIAN documented in this encounter Progress Notes Teresita [...] scalp ??? Status post hip replacement ??? Bqnj-Bqxiw-Crpqjix disease ??? Atopic rhinitis Past Surgical History [...] questions or concerns. Teresita Garcia MD, MD [facility] VIORAL HEALTH TECHNICIAN documented in this encounter Nursing Notes Yumiko Camp, SECURITY SOFTWARE ENGINEER - 09/15/2014 2:02 PM CST Chief Complaint [...] using cuff size large Yumiko Camp CMA VIORAL HEALTH TECHNICIAN documented in this encounter Plan of Treatment Not on filedocumented as of this encounter Results XR Shoulder Left 2 Views (09/15/2014 2:26 PM BEHAVIORAL HEALTH TECHNICIAN) Anatomical Region Laterality Modality Shoulder, Chest, Arm Left Computed Radiograph y Specimen (Source) Anatomical Location Collection Method / Collectio n Time Received Time / Laterality Volume Impressions 09/15/2014 3:48 PM BEHAVIORAL HEALTH TECHNICIAN IMPRESSION: Negative. KELLY GILBERT MD Narrative 09/15/2014 3:48 PM BEHAVIORAL HEALTH TECHNICIAN XR SHOULDER 2 VIEW LEFT 09/15/2014 3:48 [...] encounter documented in this encounter Care Teams Curb Setter Relationship Specialty Start Date End Date Teresita Garcia MD PCP - General Family Practice 01/22/11 [address] [place] [address] documented as of this encounter
--- OUTSIDE RECORDS SUMMARY | 2022-08-21 17:01 | XMS_ITS | Encounter Summary ---
:1960 Author Organization [place] Address [address] [place] [address] Care Team Providers Name Role Phone Teresita Garcia MD Primary Care Provider Reason for Visit Reason Comments Post-op Problem pump incision on back - has a large bump Refill Request shampoo Encounter Details Date Type Department Care Team Description 03/10/2011 Office Visit [facility] Teresita Garcia MD Benign tumor of back (Primary Dx); Clinic [place] [id number] [place] [address] Baclofen pump failure; [address] [place], [place] Seborrheic dermatitis of sca lp [place], [place] [phone] Social History Tobacco Use Types Packs/Day [...] do you attend tenriism or Not asked hoahaoism services? Do you [...] dandruff of the scalp. Assessment & Plan: 1)368.1 Other specified disease of hair and hair [...] dermatitis documented in this encounter Care Teams Warehouse Helper Relationship Specialty Start Date End Date Teresita Garcia MD PCP - General Family Practice 01/22/11 [address] [place] [address] documented as of this encounter
--- OUTSIDE RECORDS SUMMARY | 2022-08-21 17:01 | XMS_ITS | Encounter Summary ---
:1960 Author Organization [place] Address [address] [facility] [place] [address] Care Team Providers Name Role Phone Teresita Garcia MD Primary Care Provider Reason for Visit Reason Onset Date Comments Nurse Advice Line 10/13/2016 [facility] Encounter Details Date Type Department Care Team Description 10/13/2016 Telephone [facility] Teresita Garcia MD Nurse Advice Line [address] ([facility]) [address] [place] [phone] Social History Tobacco Use Types Packs/Day Years [...] do you attend muslim or Not asked pentecostalism services? Do you [...] Miscellaneous Notes Telephone Encounter - Deann Lora, JAN - 10/13/2016 2:56 PM CST BANDAR...AA Pt being dc'd from [facility]air 10-15-16 [facility] requesting approval of home care orders Follow up appt 10/17/16 Jose Authorized per protocol Deann Lora RN, BS Message handled by Nurse Triage . SERVICE ORDER CLERK documented in this encounter Plan of Treatment Not on filedocumented as of this encounter Visit Diagnoses Not on filedocumented in this encounter Care Teams Head Machine Feeder Relationship Specialty Start Date End Date Teresita Garcia MD PCP - General Family Practice 01/22/11 [address] [place] [address] documented as of this encounter
--- OUTSIDE RECORDS SUMMARY | 2022-08-21 17:01 | XMS_ITS | Encounter Summary ---
:1960 Author Organization [place] Address [address] [facility] [place] [address] Care Team Providers Name Role Phone Teresita Garcia MD Primary Care Provider Reason for Referral Referral not Required - Closed Specialty Diagnoses / Procedures Referred By Contact Refer red To Contact Diagnoses Screen for colon cancer Teresita Garcia MD [facility] [id number] [place] [address] [phone] [place] [address] Phone: Fax: Referral ID Status Reason Start Date Expiration Date Visits Requ ested Visits Authorized [id number] Closed 04/19/2013 10/16/2013 1 1 Reason for Visit Reason Comments Pre-Op Exam surgery 05/04/13 [place] Encounter Details Date Type Department Care Team Description 04/19/2013 Office Visit [facility] Teresita Garcia MD Preop general physical exam (Primary Dx) ; [facility] [place] [id number] [place] [address]; [address] [place], [place] for [place] [address] [phone] Social History Tobacco Use Types Packs/Day Years [...] do you attend nondenominational or Not asked scientologist services? Do you belong to any clubs or Not asked organizations such as nondenominational groups, unions, fraStanding Cloud or athletic groups, or school groups? How [...] Garcia MD - 04/19/2013 11:12 AM CDT [place] [address] Dept: [phone] PRE-OP EVALUATION: Today's date: 04/19/2013 Dejuan Rodriguez (: 1960) presents for pre-operative evaluation assessment as requested byDr. Roy. He requires evaluation and anesthesia risk assessment prior to undergoing surgery/procedure for treatment of urology problem . Proposed procedure: Cysto Bladder Date of Surgery/ Procedure: 05/04/13 Time of Surgery/ Procedure: [facility] Hospital/Surgical Facility: [facility] Fax number for surgical facility: [phone] Primary Physician: Teresita Garcia Type of Anesthesia [...] process. Provider to review and confirm.) ??? Fbxv-Rhuep-Icdmqzt disease 05/14/2011 ??? Atopic rhinitis 05/14/2011 (Problem [...] Date ??? Multiple sclerosis sees neurology at [facility] ??? Juvenile osteochondrosis of [...] cardiovascular risks for perioperative complications such as (WA, PE, VFib and 3?? AV Block): No [...] evaluation report is provided to requesting physician. [facility] Preop Guidelines 2013 documented in this encounter Nursing Notes 04/19/2013 11:00 AM CDT >> RACHELLE Soto Apr 19, 2013 11:12 AM Patient presents with: Pre-Op Exam - surgery 8/7/13 [place] Initial BP 116/80 Pulse 72 Temp 98 ??F (36.7 ??C) (Oral) Resp 16 Estimated Body mass index is 28.24 kg/(m^2) as calculated from the following: Height as of 06/21/12: 5' 7.5(1.715 m). Weight as of 06/21/12: 183 lb(83.008 kg). BP completed using cuff size: regular RA SMA Sarita documented in this encounter Miscellaneous Notes Addendum Note - Kamille Rodrigues - 04/19/2013 12:18 PM CDT Addended by: KAMILLE RODRIGUES on: 04/19/2013 12:18 PM Modules accepted: Orders documented in this encounter Plan of Treatment Scheduled Referrals Name Type Priority Associated Diagnoses Order S [facility] GASTROENTEROLOGY ADULT Referral Routine Screen for colon [...] Microscopic and Culture (04/19/2013 11:53 AM CDT) [facility] Method Time Signature Color Urine Yellow [facility] Appearance Urine Clear [facility] Glucose Urine Negative NEG mg/dL [facility] Bilirubin Urine Negative NEG [facility] Ketones Urine Negative NEG mg/dL [facility] Specific [place] 1.010 1.003 - [place] Urine 1.035 [facility] Blood Urine Negative NEG [facility] pH Urine 6.0 5.0 - 7.0 [place] pH [facility] Protein Albumin Negative NEG mg/dL [place] Urine [facility] Urobilinogen 0.2 0.2 - 1.0 [place] Urine EU/dL [facility] Nitrite Urine Negative NEG [facility] Leukocyte Negative NEG [place] Esterase Urine [facility] Source Midstream [place] Urine [facility] Specimen Anatomical Collection Method Collection Time Receive d Time (Source) Location / / Volume Laterality Urine specimen 04/19/2013 11:53 3 (specimen) AM CDT 11:54 AM CDT Teresita Garcia MD LAB - URINE ORDERABLES Performing Organization Address City/State/[facility] Code Phon e Number [facility] [address] [place] [address] [facility] [address] [place] [address] Hepatic panel (04/19/2013 11:52 AM CDT) athologist Signature Bilirubin 0.0 0.0 - 0.3 [facility] Conjugated mg/dL CLINIC LAB Bilirubin Delta 0.1 0.0 - 0.4 [place] mg/dL [facility] Bilirubin Total 1.2 0.2 - 1.3 [place] mg/dL [facility] Albumin 4.5 3.9 - 5.1 [facility] g[facility] Comment: Reference range changed on 05/30. Protein Total 7.5 6.8 - 8.8 g/dL [place] [facility] Comment: As of 08, reference range reflects plasma specimen type. Alkaline Phosphatase 65 40 - 150 U/L [facility] ALT 37 0 - 70 U/L [place] [facility] LAB AST 23 0 - 45 U/L [place] [facility] LAB Specimen Anatomical Collection Method Collection Time Receive d Time (Source) Location / / Volume Laterality Blood specimen 04/19/2013 11:52 3 (specimen) AM CDT 11:53 AM CDT Teresita Garcia MD LAB - BLOOD ORDERABLES Performing Organization Address City/[facility] Phon e Number [facility] [address] [facility] [place] [address] [phone] [facility] [address] [facility] [place] [address] (ABNORMAL) Basic metabolic panel (04/19/2013 11:52 AM CDT) P athologist Signature Sodium 144 133 - 144 [place] mmol/L [facility] Potassium 4.1 3.4 - 5.3 [place] mmol/L [facility] Chloride 105 94 - 109 [place] mmol/L [facility] Carbon Dioxide 27 20 - 32 [place] mmol/L [facility] Anion Gap 12 6 - 17 [place] mmol/L [facility] Glucose 103 (H) 60 - 99 [place] mg/dL [facility] Urea Nitrogen 13 7 - 30 [place] mg/dL [facility] Creatinine 1.09 0.66 - [place] 1.25 mg/dL [facility] GFR Estimate 71 >60 [place] mL/min/1.7 [facility] m2 LAB GFR Estimate If 86 >60 [place] Black mL/min/1.7 [facility] m2 LAB Calcium 9.7 8.5 - 10.4 [place] mg/dL [facility] Specimen Anatomical Collection Method Collection Time Receive d Time (Source) Location / / Volume Laterality Blood specimen 04/19/2013 11:52 3 (specimen) AM CDT 11:53 AM CDT Teresita Garcia MD LAB - BLOOD ORDERABLES Performing Organization Address City/[facility] Code Phon e Number [facility] [address] [place] [address] [phone] [facility] [address] [facility] [place] [address] CBC with platelets (04/19/2013 11:52 AM CDT) P athologist Signature WBC 6.6 4.0 - 11.0 [place] 10e9/L [facility] RBC Count 4.77 4.4 - 5.9 [place] 10e12/L [facility] Hemoglobin 15.0 13.3 - [place] 17.7 g/dL [facility] Hematocrit 42.8 40.0 - [place] 53.0 % [facility] MCV 90 78 - 100 [facility] MCH 31.4 26.5 - [place] 33.0 pg [facility] MCHC 35.0 31.5 - [place] 36.5 g/dL [facility] RDW 12.7 10.0 - [place] 15.0 % [facility] Platelet Count 175 150 - 450 [facility] 10e9/L [facility] Specimen Anatomical Collection Method Collection Time Receive d Time (Source) Location / / Volume Laterality Blood specimen 04/19/2013 11:52 3 (specimen) AM CDT 11:53 AM CDT Teresita Garcia MD LAB - BLOOD ORDERABLES Performing Organization Address City/State/ZIP Code Phon e Number [facility] [id number] [place] [address] [facility] [address] [place] [address] documented in this encounter Visit Diagnoses Diagnosis Preop general physical exam - Primary Other specified pre-operative examinatio n Eczema Contact dermatitis and other eczema, due to unspecified cause Screen for colon cancer Special screening for malignant neoplasm s, colon documented in this encounter Care Teams Microfilm Technician Relationship Specialty Start Date End Date Teresita Garcia MD PCP - General Family Practice 01/22/[id number] [place] [address] documented as of this encounter
--- OUTSIDE RECORDS SUMMARY | 2022-08-21 17:01 | XMS_ITS | Encounter Summary ---
:1960 Author Organization [place] Address [address] [place] [address] Care Team Providers Name Role Phone Teresita Garcia MD Primary Care Provider Encounter Details Date Type Department Care Team Description 09/08/2011 Orders Only [facility] Enc ounter for long-term (current) use of other medications; [facility] Other malaise and fatigue; [address] [place] [address] Multiple sclerosis ([place]) [place] [address] Social History Tobacco Use Types [...] do you attend yazdanism or Not asked anabaptist services? Do you [...] PM Encounter for Resul ts for this INTERNAL GRINDER SET UP OPERATOR long-term (current) procedur e are in use of other the results medications section. Other malaise and fatigue Multiple sclerosis (H) AST Routine 09/08/2011 3:52 PM Encounter for Results for this INTERNAL GRINDER SET UP OPERATOR long-term (current) procedur e are in use of other the results medications section. Other malaise and fatigue Multiple sclerosis (H) ALT Routine 09/08/2011 3:52 PM Encounter for Results for this INTERNAL GRINDER SET UP OPERATOR long-term (current) procedur e are in use of other the results medications section. Other malaise and fatigue Multiple sclerosis (H) documented in this encounter Results Bilirubin, total (09/08/2011 3:52 PM INTERNAL GRINDER SET UP OPERATOR) athologist Signature Bilirubin Total 0.7 0.2 - 1.3 [facility] mg/dL CLINIC LAB Specimen Anatomical Collection Method Collection Time Receive d Time (Source) Location / / Volume Laterality Blood specimen 09/08/2011 3:52 PM 011 3:53 (specimen) INTERNAL GRINDER SET UP OPERATOR PM INTERNAL GRINDER SET UP OPERATOR Ramón Shine MD LAB - BLOOD ORDERABLES Performing Organization Address [facility] Phon e Number [facility] [address] [place] [address] [phone] [facility] ALT (09/08/2011 3:52 PM INTERNAL GRINDER SET UP OPERATOR) athologist Signature ALT 27 0 - 70 U/L [facility] Specimen Anatomical Collection Method Collection Time Receive d Time (Source) Location / / Volume Laterality Blood specimen 09/08/2011 3:52 PM 011 3:53 (specimen) INTERNAL GRINDER SET UP OPERATOR PM INTERNAL GRINDER SET UP OPERATOR Ramón Shine MD LAB - BLOOD ORDERABLES Performing Organization Address [facility] Phon e Number [facility] [place] [address] [place] [address] [phone] [facility] AST (09/08/2011 3:52 PM INTERNAL GRINDER SET UP OPERATOR) athologist Signature AST 24 0 - 55 U/L [facility] Specimen Anatomical Collection Method Collection Time Receive d Time (Source) Location / / Volume Laterality Blood specimen 09/08/2011 3:52 PM 011 3:53 (specimen) INTERNAL GRINDER SET UP OPERATOR PM INTERNAL GRINDER SET UP OPERATOR Ramón Shine MD LAB - BLOOD ORDERABLES Performing Organization Address City/State/ZIP Code Phon e Number [facility] [address] [place] [address] [facility] documented in this encounter Visit Diagnoses Diagnosis Encounter for long-term (current) use of other medications Other malaise and fatigue Multiple sclerosis (H) Multiple sclerosis documented in this encounter Care Teams Vice Chancellor Relationship Specialty Start Date End Date Teresita Garcia MD PCP - General Family Practice 01/22/11 [address] [place] [address] documented as of this encounter
--- OUTSIDE RECORDS SUMMARY | 2022-08-21 17:01 | XMS_ITS | Encounter Summary ---
:1960 Author Organization [place] Address [address] [facility] [place] [address] Care Team Providers Name Role Phone Teresita Garcia MD Primary Care Provider Reason for Visit Reason Onset Date Comments Erroneous encounter-disregard 04/11/2013 Encounter Details Date Type Department Care Team Description 04/11/2013 Telephone [facility] Ara Saleh MD Erroneous Clinic [address] encounter-disregard [id number] [place] [phone] Social History Tobacco Use Types Packs/Day Years [...] do you attend mormon or Not asked restorationism services? Do you [...] on filedocumented in this encounter Care Teams Line Leader Relationship Specialty Start Date End Date Teresita Garcia MD PCP - General Family Practice 01/22/11 [address] [place] [address] documented as of this encounter
--- OUTSIDE RECORDS SUMMARY | 2022-08-21 17:01 | XMS_ITS | Encounter Summary ---
:1960 Author Organization [place] Address [address] [facility] [place] [address] Care Team Providers Name Role Phone Teresita Garcia MD Primary Care Provider Reason for Visit Reason Onset Date Comments Medication Request 04/23/2016 04/24/16 dental appt - prophylactic abx Encounter Details Date Type Department Care Team Description 04/23/2016 Telephone [facility] Teresita Garcia MD Medication Request Clinic [address] (04/24/16 dental appt - [address] [place], [place] prophylactic abx) [place], [place] [phone] Social History Tobacco Use Types Packs/Day [...] do you attend jain or Not asked synagogue services? Do you [...] to do prophylaxis anymore. Teresita Garcia MD [facility] [phone] Telephone Encounter - Hal Sierra, RN - 04/23/2016 9:28 AM CDT Pt calls. Dental appointment tomorrow April 24. Reports bilateral hip replacement about 10-15 years ago at [facility]. At that time his surgeon (now retired) recommended prophylactic antibiotic prior to dental procedures for the rest of his life. Dentist was prescribing but prefers PCP advise/prescribe. Dr. Garcia, antibiotic indicated? Pharmacy t'd up. We will call Jose with your reply. [phone] OK detailed message Hal Sierra, RN documented in this encounter Plan of Treatment Not on filedocumented as of this encounter Visit Diagnoses Not on filedocumented in this encounter Care Teams Hris Developer Relationship Specialty Start Date End Date Teresita Garcia MD PCP - General Family Practice 01/22/11 [address] [place] [address] documented as of this encounter
--- OUTSIDE RECORDS SUMMARY | 2022-08-21 17:01 | XMS_ITS | Encounter Summary ---
:1960 Author Organization [place] Address [facility] [place] [address] Care Team Providers Name Role Phone Teresita Garcia MD Primary Care Provider Encounter Details Date Type Department Care Team Description 04/10/2014 Orders Only [facility] Mul tiple sclerosis (H) [facility] (Primary Dx) [address] [place] [address] Social History Tobacco Use Types [...] do you attend baptism or Not asked presybeterian services? Do you [...] Signature Vitamin D 50 30 - 75 [facility] Deficiency ug/L CAMPUS LABS screening Comment: Season, race, dietary intake, and treatm ent affect the concentration of 95-cgsbaib-Ezyeeam D. Values may decrea se during winter [...] questions, pl ease contact the laboratory at [phone]. Specimen Anatomical Collection Method Collection Time Receive d Time (Source) Location / / Volume Laterality Blood specimen 04/10/2014 2:17 PM 014 2:20 (specimen) CDT PM CDT Lab Non-Fv Credentialed Provider LAB - BLOOD ORDERABLE S Performing Organization Address City/State/ZIP Code Phon e Number [facility] [address] [place], [place] [phone] [place] [address] LABS documented in this encounter Visit Diagnoses Diagnosis Multiple sclerosis (H) - Primary Multiple sclerosis documented in this encounter Care Teams Tire Mold Engraver Relationship Specialty Start Date End Date Teresita Garcia MD PCP - General Family Practice 01/22/11 [address] [place] [address] documented as of this encounter
--- OUTSIDE RECORDS SUMMARY | 2022-08-21 17:01 | XMS_ITS | Encounter Summary ---
:1960 Author Organization [place] Address [address] [place] [address] Care Team Providers Name Role Phone Teresita Garcia MD Primary Care Provider Reason for Visit Auth/Cert - Closed Specialty Diagnoses / Procedures Referred By Contact Refer red To Contact Gastroenterology Diagnoses screening Rh Endoscopy Procedures COLONOSCOPY [address] [place] [address] Phone: Fax: Referral ID Status Reason Start Date Expiration Date Visits Requ ested Visits Authorized [id number] Closed 1 1 Encounter Details Date Type Department Care Team Description 06/01/2013 Hospital Encounter [facility] Jacob Simmons, Endoscopy Alex KAYE [address] [place], [place] GASTROENTEROLOGY [address] [address] [facility] [phone] [address] (Wo rk) Social History Tobacco Use Types [...] do you attend alevism or Not asked presybeterian services? Do you [...] scalp ??? Status post hip replacement ??? Kaxs-Ajkuv-Omkdbeb disease ??? Atopic rhinitis Past Medical History Diagnosis Date ??? Multiple sclerosis sees neurology at [facility] ??? Juvenile osteochondrosis [...] encounter Results COLONOSCOPY (06/01/2013 4:02 PM CDT) [facility] Method Time Signature COLONOSCOPY [facility] RAD IOLOGY RESULTS Patient Name: Dejuan alston [...] / Volume Laterality 06/01/2013 4:02 PM CDT Teresiat Garcia MD PROCEDURES Performing Organization Address City/State/ZIP [...] Intra-procedure documented in this encounter Care Teams Appraiser Boats And Marine Relationship Specialty Start Date End Date Teresita Garcia MD PCP - General Family Practice 01/22/11 [address] [place] [address] documented as of this encounter
--- OUTSIDE RECORDS SUMMARY | 2022-08-21 17:01 | XMS_ITS | Encounter Summary ---
:1960 Author Organization [place] Address [facility] [place] [address] Care Team Providers Name Role Phone Teresita Garcia MD Primary Care Provider Reason for Visit Reason Onset Date Comments Medication Request 09/26/2014 Shoulder Pain 09/26/2014 Encounter Details Date Type Department Care Team Description 09/26/[address] [facility] Teresita Garcia MD Medication Request; [facility] [place] [id number] [place] [address] Shoulder Pain [address] [place] [address] [phone] Social History Tobacco Use Types Packs/Day Years [...] do you attend lutheran or Not asked denominational services? Do you [...] and sent to pharmacy. Ingrid Vallejo CMA S TOUGHENING OPERATOR Telephone Encounter - Teresita Garcia MD - 09/27/2014 8:04 AM CST We can try anti-inflammatory, if it is ok with the [place] physician. I will send a prescription for him. S TOUGHENING OPERATOR Telephone Encounter - Mary More RN - [...] shoulder. Please advise. Call patient back at [phone]. Mary More RN S TOUGHENING OPERATOR documented in this encounter Plan of Treatment Not on filedocumented as of this encounter Visit Diagnoses Diagnosis Left shoulder pain - Primary Pain in joint, shoulder region documented in this encounter Care Teams Asbestos Abatement Technician Relationship Specialty Start Date End Date Teresita Garcia MD PCP - General Family Practice 01/22/11 [address] [place] [address] documented as of this encounter
--- OUTSIDE RECORDS SUMMARY | 2022-08-21 17:01 | XMS_ITS | Encounter Summary ---
:1960 Author Organization [place] Address [facility] [place] [address] Care Team Providers Name Role Phone Jonathan Velásquez MD Primary Care Provider Reason for Referral Specialty Diagnoses / Procedures Referred By Contact Refer red To Contact [facility] [address] [facility] N[place] FORD [phone] Referral ID Status Reason Start Date Expiration Date Visits Requ ested Visits Authorized Encounter Details Date Type Department Care Team Description 01/03/[address] [facility] Jonathan Velásquez MD [place] XXX RETIRED XXX [address] [facility] Mohit johnson [address] [facility] NABIL Richard [phone] [place] RIOS [phone] (Wo rk) Social History Tobacco Use [...] do you attend adventism or Not asked congregational services? Do you [...] on filedocumented in this encounter Care Teams Mechanic Foreman Relationship Specialty Start Date End Date Jonathan Velásquez MD PCP - General 11/10/05 01/21/11 documented as of this encounter
--- OUTSIDE RECORDS SUMMARY | 2022-08-21 17:01 | XMS_ITS | Encounter Summary ---
:1960 Author Organization [place] Address [address] [place] [address] Care Team Providers Name Role Phone Teresita Garcia MD Primary Care Provider Reason for Referral Referral not Required - Closed Specialty Diagnoses / Procedures Referred By Contact Refer red To Contact Diagnoses Hip pain Teresita Garcia MD [place] [id number] [place] [address] GASTROENTEROLOGY-[place], [place] [address] [facility] [address] [place] [address] Phone: Fax: Referral ID Status Reason Start Date Expiration Date Visits Requ ested Visits Authorized [id number] Closed 06/21/2012 12/18/2012 1 1 Reason for Visit Reason Comments Musculoskeletal Problem right hip pain Health Maintenance referral generated for colon oscopy--phq and DAP completed today Encounter Details Date Type Department Care Team Description 06/21/2012 Office Visit [facility] Teresita Garcia MD Hip pain (Primary Dx); Clinic [place] [id number] [place] [address] Mild major depression (H) [address] [place] [address] [phone] Social History Tobacco Use Types Packs/Day Years [...] do you attend gnosticist or Not asked latter-day services? Do you [...] Date ??? Multiple sclerosis sees neurology at [facility] ??? Juvenile osteochondrosis of hip [...] Name Type Priority Associated Diagnoses Order S [facility] GASTROENTEROLOGY ADULT Referral Routine Hip pain Order [...] mild documented in this encounter Care Teams Tank Processor Relationship Specialty Start Date End Date Teresita Garcia MD PCP - General Family Practice 01/22/11 [address] [place] [address] documented as of this encounter
--- OUTSIDE RECORDS SUMMARY | 2022-08-21 17:01 | XMS_ITS | Encounter Summary ---
:1960 Author Organization [place] Address [address] [facility] [place] [address] Care Team Providers Name Role Phone Teresita Garcia MD Primary Care Provider Reason for Visit Reason Onset Date Comments Call to schedule test 05/03/2013 GI Intelligence Director Encounter Details Date Type Department Care Team Description 05/03/2013 Telephone [facility] Mraysol Andrews to schedule test Endoscopy [place] (GI Intelligence Director) [address] [place] [phone] Social History Tobacco Use Types Packs/Day Years [...] do you attend christian or Not asked adventism services? Do you [...] on filedocumented in this encounter Care Teams Retail Support Manager Relationship Specialty Start Date End Date Teresita Garcia MD PCP - General Family Practice 01/22/[id number] [place] [address] documented as of this encounter
--- OUTSIDE RECORDS SUMMARY | 2022-08-21 17:01 | XMS_ITS | Encounter Summary ---
:1960 Author Organization [place] Address [facility] [place] [address] Care Team Providers Name Role Phone Teresita Garcia MD Primary Care Provider Reason for Visit Reason Comments Mouth/Lip Problem Encounter Details Date Type Department Care Team Description 04/07/2015 Office Visit [facility] Otoniel Mccrary (Primary Clinic Pearson DEVORAH Burkett Dx) [address] [place] [address] [phone] Social History Tobacco Use Types Packs/Day Years [...] do you attend yazidi or Not asked orthodox services? Do you [...] Care: ?? You may find that soft, cwep-zy-ezhe foods cause less pain. Avoid sharp or [...] eat or swallow due to pain ?? [phone] [employer]. [address] [place] [address], [place] [address]. All rights reserved. This information is not [...] affect normal/bright Diagnostic Test Results: none ASSESSMENT/PLAN: (838.9) Skin lesion (primary encounter diagnosis) Comment: Appears [...] improve. Sooner if worsening Otoniel Mccrary PA-C [facility] documented in this encounter Nursing Notes Nara [...] tissue documented in this encounter Care Teams Evaluation Manager Relationship Specialty Start Date End Date Teresita Garcia MD PCP - General Family Practice 01/22/11 [address] [place] [address] documented as of this encounter
--- OUTSIDE RECORDS SUMMARY | 2022-08-21 17:01 | XMS_ITS | Encounter Summary ---
:1960 Author Organization [place] Address [address] [facility] [place] [address] Care Team Providers Name Role Phone Teresita Garcia MD Primary Care Provider Encounter Details Date Type Department Care Team Description 07/07/2011 Orders Only [employer] Mul tiple sclerosis (H) [place] [facility] (Primary Dx) [address] [place] [address] Social History Tobacco Use Types [...] do you attend amish or Not asked rastafarian services? Do you [...] Component Value Ref Test Analysis Performed At [facility] gist Range Method Time Signature 25 [place] Vit D2 <5 ug/L [facility] 25 [place] Vit D3 42 ug/L [facility] 25 [place] Vit D <47 30 - 75 [facility] total Season, race, dietary intake, and treatm ent affect the concentration of ug/L [facility]iq[facility]-I[facility] D. Values may decrease during michelle er [...] Organization Address City/State/ZIP Code Phon e Number [address] [address] [facility] AST (07/07/2011 1:47 PM CDT) athologist Signature AST 23 0 - 55 U/L [facility] Specimen Anatomical Collection Method Collection Time Receive d Time (Source) Location / / Volume Laterality Blood specimen 07/07/2011 1:47 PM 011 1:48 (specimen) CDT PM CDT Ramón Shine MD LAB - BLOOD ORDERABLES Performing Organization Address City/State/ZIP Code Phon e Number [facility] [address] [place] [address] [facility] CBC with platelets (07/07/2011 1:47 PM CDT) P athologist Signature WBC 7.4 4.0 - 11.0 [place] 10e9/L [facility] RBC Count 4.82 4.4 - 5.9 [place] 10e12/L [facility] Hemoglobin 14.8 13.3 - [facility] 17.7 g/dL [facility] Hematocrit 42.7 40.0 - [facility] 53.0 % [facility] MCV 89 78 - 100 [facility] fl [facility] MCH 30.7 26.5 - [place] 33.0 pg [facility] MCHC 34.7 31.5 - [facility] 36.5 g/dL [facility] RDW 13.4 10.0 - [facility] 15.0 % [facility] Platelet Count 178 150 - 450 [facility] 10e9/L [facility] Specimen Anatomical Collection Method Collection Time Receive d Time (Source) Location / / Volume Laterality Blood specimen 07/07/2011 1:47 PM 011 1:48 (specimen) CDT PM CDT Ramón Shine MD LAB - BLOOD ORDERABLES Performing Organization Address City/State/ZIP Code Phon e Number [facility] [address] [place] [address] [facility] documented in this encounter Visit Diagnoses Diagnosis Multiple sclerosis (H) - Primary Multiple sclerosis documented in this encounter Care Teams Survey Instrument Operator Relationship Specialty Start Date End Date Teresita Garcia MD PCP - General Family Practice 01/22/[id number] [place] [address] documented as of this encounter
--- OUTSIDE RECORDS SUMMARY | 2022-08-21 17:01 | XMS_ITS | Encounter Summary ---
:1960 Author Organization [place] Address [facility] [place] [address] Care Team Providers Name Role Phone Teresita Garcia MD Primary Care Provider Reason for Visit Reason Comments Pre-Op Exam Surgery on 01/23/11 Encounter Details Date Type Department Care Team Description 01/22/2011 Office Visit [facility] Pre op general physical [place] exam (Primary Dx) [address] [place] [address] Social History Tobacco Use [...] do you attend sabianism or Not asked worship services? Do you [...] Elma Thorne - 01/22/2011 1:34 PM CDT [facility] [address] [place] [id number] PRE-OP EVALUATION: Today's date: 01/22/2011 Dejuan Rodriguez (: 1960) presents for pre-operative evaluation assessment as requested byDr. Frederic Mejía. He requires evaluation and anesthesia risk assessment prior to undergoing surgery/procedure for treatment of headache . Proposed procedure: Blood patch. Date of Surgery/ Procedure: 01/23/11 Time of Surgery/ Procedure: 12:30PM Hospital/Surgical Facility: [facility] Fax number for surgical facility: [phone] Primary Physician: Dr. Garcia Type of Anesthesia [...] Date ??? Multiple sclerosis sees neurology at [facility] ??? Juvenile osteochondrosis of hip and pelvis [...] n documented in this encounter Care Teams Security Operations Center Analyst Relationship Specialty Start Date End Date Teresita Garcia MD PCP - General Family Practice 01/22/11 [address] [place] [address] documented as of this encounter
--- OUTSIDE RECORDS SUMMARY | 2022-08-21 17:01 | XMS_ITS | Encounter Summary ---
:1960 Author Organization [place] Address [facility] [place] [address] Care Team Providers Name Role Phone Teresita Garcia MD Primary Care Provider Reason for Visit Reason Onset Date Comments Refill Request 07/01/2016 ketoconazole (NIZORA L) 2 % shampoo Encounter Details Date Type Department Care Team Description 07/01/2016 Refill [facility] Roel Garcia MD Refill Request [place] [id number] [place] [address] (ketoconazole (NIZORAL) [address] [place], [place] 2 % shampoo) [place], [place] [id number] [phone] Social History Tobacco Use Types Packs/Day Years [...] do you attend denominational or Not asked adventist services? Do you [...] # refills: 1 Last Office Visit with G, P or [facility] [place] [facility] prescribing provider: 04/07/2015 Demetra documented in this encounter Plan of Treatment Not on filedocumented as of this encounter Visit Diagnoses Diagnosis Seborrheic dermatitis of scalp - Primary Other seborrheic dermatitis documented in this encounter Care Teams Step Down Nurse Relationship Specialty Start Date End Date Teresita Garcia MD PCP - General Family Practice 01/22/11 [address] [place] [address] documented as of this encounter
--- OUTSIDE RECORDS SUMMARY | 2022-08-21 17:01 | XMS_ITS | Encounter Summary ---
:1960 Author Organization [place] Address [facility] [place] [address] Care Team Providers Name Role Phone Teresita Garcia MD Primary Care Provider Reason for Visit Reason Onset Date Comments Orders 2013 [facility] Encounter Details Date Type Department Care Team Description 2013 Telephone [facility] Teresita Garcia MD Orders ([facility] [address]) [address] [place] [phone] Social History Tobacco Use Types Packs/Day Years [...] you attend jehovah's witness or Not asked religion services? Do you [...] day, form completed and faxed Lalita Ricketts/YANELI [place]---[facility] Telephone Encounter - Malena Hankins - 2013 1:53 PM CDT Recd 1 page fax from [employer]. Please complete and sign Urological Supplies Prescriptionform and fax to [phone]. Form in AA folder at [facility]. Malena Hankins Patient Clerical Assistant documented in this encounter Plan of Treatment Not on filedocumented as of this encounter Visit Diagnoses Not on filedocumented in this encounter Care Teams Shirt Maker Relationship Specialty Start Date End Date Teresita Garcia MD PCP - General Family Practice 01/22/11 [address] [place] [address] documented as of this encounter
--- OUTSIDE RECORDS SUMMARY | 2022-08-21 17:01 | XMS_ITS | Encounter Summary ---
:1960 Author Organization [place] Address [facility] [place] [address] Care Team Providers Name Role Phone Teresita Garcia MD Primary Care Provider Encounter Details Date Type Department Care Team Description 09/15/2014 Radiant Appointment [facility] Teresita Garcia MD Shoulder injury, [facility] [place] [address] [facility], [place] [address] [facility] AV encounter [facility], [address] [place] [address] [phone] Social History Tobacco Use Types Packs/Day Years [...] do you attend judaism or Not asked tenriism services? Do you [...] PM Shoulder injury, Results for this VIEWS DESK DIRECTOR left, initial procedure are in encounter the results section. documented in this encounter Results XR Shoulder Left 2 Views (09/15/2014 2:26 PM DESK DIRECTOR) Anatomical Region Laterality Modality Shoulder, Chest, Arm Left Computed Radiograph y Specimen (Source) Anatomical Location Collection Method / Collectio n Time Received Time / Laterality Volume Impressions 09/15/2014 3:48 PM DESK DIRECTOR IMPRESSION: Negative. KELLY GILBERT MD Narrative 09/15/2014 3:48 PM DESK DIRECTOR XR SHOULDER 2 VIEW LEFT 09/15/2014 3:48 PM HISTORY: Injury, other and unspecified, shoulder and upper arm ? Procedure Note Kelly Gilbert MD - 09/15/2014Formatt ing of this note might be different from the original. XR SHOULDER 2 VIEW LEFT 09/15/2014 3:48 PM HISTORY: Injury, other and unspecified, shoulder and upper arm IMPRESSION IMPRESSION: Negative. KELLY GILBERT MD Teresita Garcia MD IM DIAGNOSTIC IMAGING ORDER REBA documented in this encounter Visit Diagnoses Diagnosis Shoulder injury, left, initial encounter documented in this encounter Care Teams Conveyancer Relationship Specialty Start Date End Date Teresita Garcia MD PCP - General Family Practice 01/22/11 [address] [place] [address] documented as of this encounter
--- OUTSIDE RECORDS SUMMARY | 2022-08-21 17:01 | XMS_ITS | Encounter Summary ---
:1960 Author Organization [place] Address [address] [place] [address]. [place] [address] Care Team Providers Name Role Phone Teresita Garcia MD Primary Care Provider Reason for Visit Reason Onset Date Comments Refill Request 01/04/2014 Ketokonazole Shampoo and Hydrocortisone Encounter Details Date Type Department Care Team Description 01/04/2014 Refill [facility] Roel Garcia MD Refill Request [address] (Ketokonazole Shampoo [address] [place], [place] and Hydrocortisone) [place] [address] [phone] Social History Tobacco Use Types Packs/Day Years [...] do you attend buddhism or Not asked hinduism services? Do you [...] 04/19/13 Labs pertaining to medication: n/a Jackie Brito/AWILDA documented in this encounter Plan of Treatment Not on filedocumented as of this encounter Visit Diagnoses Diagnosis Eczema - Primary Contact dermatitis and other eczema, due to unspecified cause Seborrheic dermatitis of scalp Other seborrheic dermatitis documented in this encounter Care Teams Musician Instrumental Relationship Specialty Start Date End Date Teresita Garcia MD PCP - General Family Practice 01/22/11 [address] [place] [address] documented as of this encounter
--- OUTSIDE RECORDS SUMMARY | 2022-08-21 17:01 | XMS_ITS | Encounter Summary ---
:1960 Author Organization [place] Address [address] [place] [address] Care Team Providers Name Role Phone Teresita Garcia MD Primary Care Provider Reason for Visit Reason Onset Date Comments Panel Management 04/11/2013 Encounter Details Date Type Department Care Team Description 04/11/2013 Telephone [facility] Ara Saleh MD Panel Management [address] [address] [phone] Social History Tobacco Use Types Packs/Day Years [...] do you attend latter-day or Not asked anabaptism services? Do you [...] 04/25/2013 1:23 PM CDT lmtcb to the [facility] team. Mary Sanchez CMA Telephone Encounter - Blanche Ward - 04/18/2013 8:47 AM CDT LM for pt to call back to clinic. Telephone Encounter - Blanche Ward - 04/11/2013 2:16 PM CDT Panel Management Review Date of last visit with a [place] provider: on 06/21/12. Date of next visit with a [place] provider: None. Problem List Patient Active Problem List Diagnosis ??? MULTIPLE SCLEROSIS ??? CARDIOVASCULAR SCREENING; LDL GOAL LESS THAN 160 ??? Cannabis abuse ??? Mild major depression ??? Baclofen pump failure ??? Spasticity ??? Seborrheic dermatitis of scalp ??? Status post hip replacement ??? Htnx-Sttnr-Bzpgecv disease ??? Atopic rhinitis Health Maintenance List Health Maintenance Topic Date Due ??? Colon Cancer Screen (System Assigned) 12/15/2011 ??? Phq-9 Q6 Months (No Inbasket) 12/19/2012 ??? Depression Action Plan Q1 Yr (No Inbasket) 06/21/2013 ??? Influenza Vaccine (System Assigned) 06/28/2013 ??? Lipid Screen Q5 Yr Male (System Assigned) 2015 ??? Tetanus Immunization ( [facility] Assigned) 12/13/2020 For diabetic patients with hypertension and/or hyperlipidemia, only choose diabetes. Patient has the following on his problem list: Depression / Dysthymia review PHQ-9 SCORE ([facility]) 12/13/2010 06/21/2012 Total Score 9 5 Patient [...] to do PHQ9. Type of outreach: Sent [employer] message. Questions for provider review: None Blanche [...] on filedocumented in this encounter Care Teams People Greeter Relationship Specialty Start Date End Date Teresita Garcia MD PCP - General Family Practice 01/22/11 [address] [place] [address] documented as of this encounter
--- OUTSIDE RECORDS SUMMARY | 2022-08-21 17:02 | XMS_ITS | Encounter Summary ---
:1960 Author Organization [place] Address [address] [place] [address]. [place] [address] Care Team Providers Name Role Phone Jonathan Velásquez MD Primary Care Provider Reason for Visit Reason Comments RECHECK From 09/16/2006 Pneumonia Encounter Details Date Type Department Care Team Description 11/11/2005 Office Visit [facility] Jonathan Velásquez, OTHER MALAISE AND FATIGUE (Primary Dx); Clinic Britta Chaudhry MD DEPRESSIVE DISORDER NEC; [address] [place] [address] XXX RETIRED X XX MULTIPLE SCLEROSIS (H); Drive [address] [place] [address] DRUG [place] [address] N[place] ZHOU [phone] [address] Social History Tobacco Use Types Packs/Day [...] do you attend nondenominational or Not asked rastafarian services? Do you [...] Comments Blood Pressure 115/76 11/11/2005 12:30 PM SPINE NURSE Pulse 100 11/11/2005 12:30 PM SPINE NURSE Temperature 36.3 ??C (97.4 ??F) 11/11/2005 12:30 PM SPINE NURSE Respiratory Rate 16 11/11/2005 12:30 PM SPINE NURSE Oxygen Saturation - - Inhaled Oxygen Concentration - - Weight 72.6 kg (160 lb) 11/11/2005 12:30 PM SPINE NURSE Height 167.6 cm (5' 6) 11/11/2005 12:30 PM SPINE NURSE Body Mass Index 25.82 11/11/2005 12:30 PM SPINE NURSE documented in this encounter Progress Notes Jonathan [...] chem dep. Counseling and detox. 30 min E NURSE documented in this encounter Nursing Notes 11/11/2005 12:30 PM CST >> MARGARITA RODAS 11/11/2005 12:28 pm Patient presents with: RECHECK - From 09/16/2006 Pneumonia BP 115/76 Pulse 100 Temp (Src) 97.4 (Oral) Resp 16 Ht 5' 6 (1.68m) Wt 160 lbs (72.6kg) BP completed using cuff size: large. P.Bridgette CANOE INSPECTOR FINAL documented in this encounter Plan of Treatment Not on filedocumented as of this encounter Procedures Procedure Name Priority Date/Time Associated Diagnosis Comme nts CL AFF CBC WITH Routine 11/11/2005 12:58 PM Other Malaise And Results for this PLATELETS, DIFF SPINE NURSE Fatigue procedure ar e in the results section. HCL TSH W/FREE T4 Routine 11/11/2005 12:58 PM Other Malaise An d Results for this REFLEX SPINE NURSE Fatigue procedure are i n the results section. documented in this encounter Results TSH W/FREE T4 REFLEX (11/11/2005 12:58 PM SPINE NURSE) athologist Signature TSH 0.99 0.4 - 5.0 [facility] mU/L CLINIC LAB Specimen Anatomical Collection Method Collection Time Receive d Time (Source) Location / / Volume Laterality 11/11/2005 12:58 11/11/2005 PM SPINE NURSE 12:59 PM SPINE NURSE Jonathan Velásquez MD LABORATORY Performing Organization Address City/State/ZIP Code Phon e Number [facility] [address] [place] [address] [facility] (ABNORMAL) CBC WITH PLATELETS, DIFF (11/11/2005 12:58 PM SPINE NURSE) [facility] gist Method Time Signature WBC 9.4 4.0 - [place] 11.0 [facility] 10e9/L CLINIC LAB RBC Count 4.78 4.4 - 5.9 [place] 10e12/L [facility] Hemoglobin 14.4 13.3 - [place] 17.7 g/dL [facility] Hematocrit 44.4 40.0 - [place] 53.0 % [facility] MCV 93 78 - 100 [place] fl [facility] MCH 30.1 26.5 - [facility] 33.0 pg [facility] MCHC 32.4 32.0 - [place] 36.0 g/dL [facility] RDW 13.5 10.0 - [place] 15.0 % [facility] Platelet Count 211 150 - 450 [place] 10e9/L [facility] Diff Method Automated [facility] % Lymphocytes 13 (L) 20 - 48 % [facility] % Monocytes 5 0 - 12 % [facility] % Granulocytes 82 (H) 40 - 75 % [facility] Absolute 1.2 0.8 - 5.3 [place] Lymphocytes 10e9/L [facility] Absolute 0.5 0.0 - 1.3 [place] Monocytes 10e9/L [facility] Absolute 7.7 1.6 - 8.3 [place] Granulocytes 10e9/L [facility] Specimen Anatomical Collection Method Collection Time Receive d Time (Source) Location / / Volume Laterality 11/11/2005 12:58 11/11/2005 PM SPINE NURSE 12:59 PM SPINE NURSE Jonathan Velásquez MD LABORATORY Performing Organization Address City/State/ZIP Code Phon e Number [facility] [address] [place] [address] [facility] documented in this encounter Visit Diagnoses Diagnosis Other malaise and fatigue - Primary Depressive disorder, not elsewhere class ified Multiple sclerosis (H) Multiple sclerosis Other, mixed, or unspecified nondependen t drug abuse, unspecified documented in this encounter Care Teams Suction Plate Roller Hand Relationship Specialty Start Date End Date Jonathan Velásquez MD PCP - General 11/10/05 01/21/11 documented as of this encounter
--- OUTSIDE RECORDS SUMMARY | 2022-08-21 17:02 | XMS_ITS | Encounter Summary ---
:1960 Author Organization [place] Address [address] [place] [address] Care Team Providers Name Role Phone Jonathan Velásquez MD Primary Care Provider Teresita Garcia MD Primary Care Provider Teresita Garcia MD Unavailable Teresita Garcia MD Unavailable Reason for Visit Reason Onset Date Comments Medication Request 09/17/2010 FNA. Nasonex Encounter Details Date Type Department Care Team Description 09/17/2010 Telephone [facility] Jonathan Velásquez, Medic ation Request Clinic Britta Chaudhry MD (FNA. Nasonex) [address] [facility] XXX RETIRED X XX Drive [address] [facility] [place] [address] [place] [phone] (Wo rk) Social History Tobacco Use Types [...] do you attend worship or Not asked lutheran services? Do you [...] request. Shelia Upton Team 2 RN /ACC S COUNTRY/TRACK AND FIELD COACH Telephone Encounter - Makenzie Lazaro - 09/17/2010 12:17 PM CST I called yesterday and a nurse was going to call me back. Patient states he called yesterday requesting a refill for Nasonex and forgot to turn on answering machine. Please call patient. Thank you. Makenzie Lazaro RN [facility] [phone] S COUNTRY/TRACK AND FIELD COACH documented in this encounter Plan of Treatment Not on filedocumented as of this encounter Visit Diagnoses Diagnosis Acute upper respiratory infections of ot her multiple sites - Primary documented in this encounter Care Teams School Examiner Relationship Specialty Start Date End Date Jonathan Velásquez MD PCP - General 11/10/05 01/21/11 Teresita Garcia MD PCP - General Family Practice 01/22/11 [address] [place], [place] [phone] Teresita Garcia MD PCP - Assigned PCP 11/16/16 11/30/18 [address] [place], [place] [phone] Teresita Garcia MD Assigned PCP 11/16/16 12/28/[id number] [place] [address] documented as of this encounter
--- OUTSIDE RECORDS SUMMARY | 2022-08-21 17:02 | XMS_ITS | Encounter Summary ---
:1960 Author Organization [place] Address [address] [facility] [place] [address] Care Team Providers Name Role Phone Jonathan Velásquez MD Primary Care Provider Teresita aGrcia MD Primary Care Provider Teresita Garcia MD Unavailable Teresita Garcia MD Unavailable Dolores Caputo BOX TRUCK WASHER Unavailable Letha Vasquez MA Unavailable Audrey Hickman MD Unavailable [phone] Encounter Details Date Type Department Care Team Description 02/28/2007 [facility] Jonathan Velásquez Abbot t [facility] Britta Chaudhry MD [facility] XXX RETIRED X XX Neurology Admiss. Drive [address] [place] [address] [place] [address] N[place] Z[place] [phone] (Wo rk) Social History Tobacco Use Types [...] do you attend muslim or Not asked holiness services? Do you belong to any clubs or Not asked organizations such as muslim groups, unions, [employer] or athletic groups, or school groups? How [...] Primary documented in this encounter Care Teams Software Test Analyst Relationship Specialty Start Date End Date Jonathan Velásquez MD PCP - General 11/10/05 01/21/11 Teresita Garcia MD PCP - General Family Practice 01/22/11 [address] [place] [address] Teresita Garcia MD PCP - Assigned PCP 11/16/16 11/30/18 [address] [place] [address] Teresita Garcia MD Assigned PCP 11/16/16 12/28/21 [address] [place] [address] Dolores Caputo, BOX TRUCK WASHER Lead Spout Worker Primary Care - CC 06/27/20 09/03/20 Letha Vasquez, Community Health Worker 07/05/20 09/03/20 MA Audrey Hickman Assigned PCP 12/29/21 [place] [address] [place] [address] documented as of this encounter
--- OUTSIDE RECORDS SUMMARY | 2022-08-21 17:02 | XMS_ITS | Encounter Summary ---
:1960 Author Organization [place] Address Formerly [facility]0 [facility] [place] [address] Care Team Providers Name Role Phone Jonathan Velásquez MD Primary Care Provider Reason for Visit Reason Onset Date Comments Erroneous encounter-disregard 09/04/2006 Encounter Details Date Type Department Care Team Description 09/04/2006 Telephone [facility] Jonathan Velásquez, [facility] Britta Chaudhry MD encounter-disregard [address] [facility] XXX RETIRED X XX Drive [address] [facility] [place] [address] NABIL ZHOU [phone] [address] (Wo rk) Social History Tobacco Use [...] do you attend confucianism or Not asked buddhist services? Do you [...] on filedocumented in this encounter Care Teams Christmas Bell Ringer Relationship Specialty Start Date End Date Jonathan Velásquez MD PCP - General 11/10/05 01/21/11 documented as of this encounter
--- OUTSIDE RECORDS SUMMARY | 2022-08-21 17:02 | XMS_ITS | Encounter Summary ---
:1960 Author Organization [place] Address [address] [facility] [place] [address] Care Team Providers Name Role Phone Jonathan Velásquez MD Primary Care Provider Reason for Visit Reason Comments Back Pain Encounter Details Date Type Department Care Team Description 08/30/2008 Office Visit [facility] Brad Hernandez ack Pain (Primary Dx); Clinic [place] Salbador Pena MD URI (Upper Respiratory Infection) [facility], [address] [place], [place] [address] [address] [facility] [phone] [place], [place] [address] (Wo rk) Social History [...] do you attend bahai or Not asked sikhism services? Do you [...] Comments Blood Pressure 92/60 08/30/2008 10:30 AM BUCKET PUSHER Pulse 70 08/30/2008 10:30 AM BUCKET PUSHER Temperature 35.3 ??C (95.6 ??F) 08/30/2008 10:30 AM BUCKET PUSHER Respiratory Rate - - Oxygen Saturation 98% 08/30/2008 10:30 AM BUCKET PUSHER Inhaled Oxygen Concentration - - Weight 75.3 kg (166 lb) 08/30/2008 10:30 AM BUCKET PUSHER Height 170.2 cm (5' 7) 08/30/2008 10:30 AM BUCKET PUSHER Body Mass Index 26 08/30/2008 10:30 AM BUCKET PUSHER documented in this encounter Progress Notes Brad [...] Date ??? Multiple Sclerosis sees neurology at [facility] ??? Juvenile Osteochondrosis of Hip and Pelvis [...] symptomatic and supportive care. Brad Hernandez MD [facility] ET PUSHER documented in this encounter Nursing Notes 08/30/2008 [...] Back pain Re sults for this FRONT/LAT BUCKET PUSHER procedure are i n the results section. HCL UA MICRO IF Routine 08/30/2008 10:55 AM Back Pain Resul ts for this POSITIVE BUCKET PUSHER procedure are i n the results section. CL AFF CBC WITH Routine 08/30/2008 10:52 AM Back Pain Resul ts for this PLATELETS BUCKET PUSHER procedure are i n the results section. documented in this encounter Results CHEST X-RAY 2 VW (09/08/2008 9:17 AM BUCKET PUSHER) Anatomical Region Laterality Modality Other Specimen (Source) Anatomical Collection Method Collection Time Re ceived Time Location / / Volume Laterality 09/08/2008 9:17 AM BUCKET PUSHER Impressions 09/11/2008 7:40 AM BUCKET PUSHER CHEST TWO VIEW* Sep 08, 2008 9:17:00 AM HISTORY: Pain. FINDINGS: Negative. Brad Hernandez MD GENERAL IMAGING UA MICRO IF POSITIVE (08/30/2008 10:55 AM BUCKET PUSHER) Patholo gist Method Time Signature Color Urine Yellow [facility] Appearance Urine Clear [facility] Glucose Urine Negative NEG mg/dL [facility] Bilirubin Urine Negative NEG [facility] Ketones Urine Negative NEG mg/dL [facility] Specific [place] 1.020 1.003 - [place] Urine 1.035 [facility] Blood Urine Negative NEG [facility] pH Urine 5.5 5.0 - 7.0 [place] pH [facility] Protein Albumin Negative NEG mg/dL [place] Urine [facility] Urobilinogen 0.2 0.2 - 1.0 [place] Urine EU/dL [facility] Nitrite Urine Negative NEG [facility] Leukocyte Negative NEG [place] Esterase Urine [facility] Source Midstream [place] Urine [facility] Specimen Anatomical Collection Method Collection Time Receive d Time (Source) Location / / Volume Laterality 08/30/2008 10:55 08/30/2008 AM BUCKET PUSHER 10:57 AM BUCKET PUSHER Brad Hernandez MD LABORATORY Performing Organization Address City/State/ZIP Code Phon e Number [facility] [address] [place] [address] [facility] CBC WITH PLATELETS (08/30/2008 10:52 AM BUCKET PUSHER) athologist Signature WBC 6.7 4.0 - 11.0 [place] 10e9/L [facility] RBC Count 4.75 4.4 - 5.9 [place] 10e12/L [facility] Hemoglobin 14.9 13.3 - [place] 17.7 g/dL [facility] Hematocrit 41.0 40.0 - [place] 53.0 % [facility] MCV 86 78 - 100 [facility] MCH 31.4 26.5 - [place] 33.0 pg [facility] MCHC 36.3 31.5 - [place] 36.5 g/dL [facility] RDW 12.3 10.0 - [place] 15.0 % [facility] Platelet Count 157 150 - 450 [place] 10e9/L [facility] Specimen Anatomical Collection Method Collection Time Receive d Time (Source) Location / / Volume Laterality 08/30/2008 10:52 08/30/2008 AM BUCKET PUSHER 10:54 AM BUCKET PUSHER Brad Hernandez MD LABORATORY Performing Organization Address City/State/ZIP Code Phon e Number [facility] [id number] [place] [address] [facility] documented in this encounter Visit Diagnoses Diagnosis Back pain - Primary Backache, unspecified URI (upper respiratory infection) Acute upper respiratory infections of un specified site documented in this encounter Care Teams Office Bookkeeper Relationship Specialty Start Date End Date Jonathan Velásquez MD PCP - General 11/10/05 01/21/11 documented as of this encounter
--- OUTSIDE RECORDS SUMMARY | 2022-08-21 17:02 | XMS_ITS | Encounter Summary ---
:1960 Author Organization [place] Address [address] [facility] [place] [address] Care Team Providers Name Role Phone Jonathan Velásquez MD Primary Care Provider Encounter Details Date Type Department Care Team Description 04/29/2006 Orders Only [facility] SCR EENING FOR VENERAL DIS [facility] [address] [place] [address] Social History Tobacco Use Types [...] do you attend uatsdin or Not asked baptist services? Do you [...] Component Value Ref Test Analysis Performed At [facility] Method Time Signature Specimen Urine [facility] LABS N Gonorrhea Negative for N. gonorrhoeae rRNA by tailor helper mediated amplification. [facility] PCR A negative result by transc ription mediated amplification does not preclude the [place] presence of N. gonorrhoeae infection because re sults are dependent on proper CAMPUS LABS and adequate collection, absence of inhibitors, and suffici ent rRNA to be detected. Specimen Anatomical Collection Method Collection Time Receive d Time (Source) Location / / Volume Laterality 04/29/2006 4:17 PM 6 4:18 CDT PM CDT Jonathan Velásquez MD LABORATORY Performing Organization Address City/[facility]/ZIP Code Phon e Number [address] LABS CHLMYD TRACH, DNA, AMP PROBE (04/29/2006 4:17 PM CDT) Component Value Ref Test Analysis Performed At [facility] Method [place] Signature Specimen Urine [facility] LABS Chlamydia Negative for C. trachomatis rRNA by tailor helper mediated amplification. [facility] Trachomatis A negative result by transc ription mediated amplification does not preclude the [place] PCR presence of C. trachomatis infection because results are dependent on proper CAMPUS LABS and adequate collection, absence of inhibitors, and suffici ent rRNA to be detected. Specimen Anatomical Collection Method Collection Time Receive d Time (Source) Location / / Volume Laterality 04/29/2006 4:17 PM 6 4:18 CDT PM CDT Jonathan Velásquez MD LABORATORY Performing Organization Address City/[facility]/ZIP Code Phon e Number [address] LABS documented in this encounter Visit Diagnoses Diagnosis Screening examination for venereal disea se documented in this encounter Care Teams Non Licensed Nuclear Plant Operator Relationship Specialty Start Date End Date Jonathan Velásquez MD PCP - General 11/10/05 01/21/11 documented as of this encounter
--- OUTSIDE RECORDS SUMMARY | 2022-08-21 17:02 | XMS_ITS | Encounter Summary ---
:1960 Author Organization [place] Address [address] [facility] [place] [address] Care Team Providers Name Role Phone Jonathan Velásquez MD Primary Care Provider Teresita Garcia MD Primary Care Provider Teresita Garcia MD Unavailable Teresita Garcia MD Unavailable Dolores Caputo SLOOP CAPTAIN Unavailable Letha Vasquez MA Unavailable Audrey Hickman MD Unavailable [phone] Encounter Details Date Type Department Care Team Description 02/27/2007 [facility] Jonathan Velásquez [facility] t [facility] Britta Chaudhry MD [address] XXX RETIRED X XX [address] [place] [address] [place] [address] NABIL ZHOU [phone] (Wo rk) Social History Tobacco Use Types [...] do you attend jew or Not asked religion services? Do you [...] Primary documented in this encounter Care Teams Bible Teacher Relationship Specialty Start Date End Date Jonathan Velásquez MD PCP - General 11/10/05 01/21/11 Teresita Garcia MD PCP - General Family Practice 01/22/11 [address] [place] [address] Teresita Garcia MD PCP - Assigned PCP 11/16/16 11/30/18 [address] [place] [address] Teresita Garcia MD Assigned PCP 11/16/16 12/28/21 [address] [place] [address] Dolores Caputo, SLOOP CAPTAIN Lead Defence Force Senior Officer Primary Care - CC 06/27/20 09/03/20 Letha Vasquez, Community Health Worker 07/05/20 09/03/20 MA Audrey Hickman Assigned PCP 12/29/21 [place] [address] [place] [address] documented as of this encounter
--- OUTSIDE RECORDS SUMMARY | 2022-08-21 17:02 | XMS_ITS | Encounter Summary ---
:1960 Author Organization [place] Address [address] [place] [address] Care Team Providers Name Role Phone Jonathan Velásquez MD Primary Care Provider Reason for Visit Reason Comments Back Pain Constipation Encounter Details Date Type Department Care Team Description 10/03/2010 Office Visit [facility] Teresita Garcia MD Back pain (Primary Dx) Clinic [address] [address] [place], [place] [address] [address] [place], [place] [phone] [address] (Work) [phone] Social History Tobacco Use Types Packs/Day Years [...] Comments Blood Pressure 100/68 10/03/2010 2:13 PM DIE CUTTER APPRENTICE Pulse 71 10/03/2010 2:13 PM DIE CUTTER APPRENTICE Temperature 36.6 ??C (97.8 ??F) 10/03/2010 2:13 PM DIE CUTTER APPRENTICE Respiratory Rate 16 10/03/2010 2:13 PM DIE CUTTER APPRENTICE Oxygen Saturation 97% 10/03/2010 2:13 PM DIE CUTTER APPRENTICE Inhaled Oxygen Concentration - - Weight 74.8 kg (165 lb) 10/03/2010 2:13 PM DIE CUTTER APPRENTICE Height 167.6 cm (5' 6) 10/03/2010 2:13 PM DIE CUTTER APPRENTICE Body Mass Index 26.63 10/03/2010 2:13 PM DIE CUTTER APPRENTICE documented in this encounter Progress Notes Teresita [...] worsen or fail to improve as anticipated. CUTTER APPRENTICE documented in this encounter Nursing Notes 10/03/2010 [...] encounter: 165 lb(74.844 kg). TETANUS IMMUNIZATION ( [place] ASSIGNED) due on 1973 BP completed using cuff size: large. Leonardo Castillo MA documented in this encounter Plan of Treatment Not on filedocumented as of this encounter Procedures Procedure Name Priority Date/Time Associated Comments Diagnosis URINE CULTURE Routine 10/03/2010 3:01 PM Back pain Results for this DIE CUTTER APPRENTICE procedure are i n the results section. UA MACROSCOPIC WITH Routine 10/03/2010 2:45 PM Back pain Re sults for this REFLEX TO MICRO DIE CUTTER APPRENTICE procedure ar e in the results section. URINE MICROSCOPIC Routine 10/03/2010 2:45 PM Resu lts for this EXAM DIE CUTTER APPRENTICE procedure are i n the results section. documented in this encounter Results URINE CULTURE (10/03/2010 3:01 PM DIE CUTTER APPRENTICE) Component Value Ref Test Analysis Performed At [facility] Range Method Time Signature Specimen Catheterized [place] Description Urine [facility] Culture Micro No growth [facility] Micro Report FINAL [place] Status 10/06/2010 [facility] Specimen Anatomical Collection Method Collection Time Receive d Time (Source) Location / / Volume Laterality Urine specimen 10/03/2010 3:01 PM 011 3:03 (specimen) DIE CUTTER APPRENTICE PM DIE CUTTER APPRENTICE Teresita Garcia MD LAB - MICRO GENERAL ORDERABL ES Performing Organization Address City/State/ZIP Code Phon e Number [facility] [address] [address] [facility] (ABNORMAL) Microscopic exam urine (10/03/2010 2:45 PM DIE CUTTER APPRENTICE) P athologist Signature WBC Urine O - 2 0 - 2 /HPF [facility] RBC Urine 2-5 (A) 0 - 2 /HPF [facility] Bacteria Urine Few (A) NEG /HPF [facility] Specimen Anatomical Collection Method Collection Time Receive d Time (Source) Location / / Volume Laterality 10/03/2010 2:45 PM 1 2:47 DIE CUTTER APPRENTICE PM DIE CUTTER APPRENTICE Teresita Garcia MD LAB - URINE ORDERABLES Performing Organization Address City/[facility] Code Phon e Number [address] [address] [facility] (ABNORMAL) UA macroscopic with reflex to micro (10/03/2010 2:45 PM DIE CUTTER APPRENTICE) Component Value Ref Test Analysis Performed At Patholo gist Range Method Time Signature Color Urine Yellow [facility] Appearance Clear [place] Urine [facility] Glucose Urine Negative NEG [place] mg/dL [facility] Bilirubin Urine Negative NEG [facility] Ketones Urine Negative NEG [place] mg/dL [facility] Specific <=1.005 1.003 - [place] Urine 1.035 [facility] Blood Urine Trace (A) NEG [facility] pH Urine 5.5 5.0 - [place] 7.0 pH [facility] Protein Albumin Negative NEG [place] Urine mg/dL [facility] Urobilinogen 0.2 0.2 - [place] Urine 1.0 [place] EU/dL [facility] Nitrite Urine Negative NEG [facility] Leukocyte Negative NEG [place] Esterase Urine [facility] Source Catheterized [place] Urine [facility] Specimen Anatomical Collection Method Collection Time Receive d Time (Source) Location / / Volume Laterality Urine specimen 10/03/2010 2:45 PM 011 2:47 (specimen) DIE CUTTER APPRENTICE PM DIE CUTTER APPRENTICE Teresita Garcia MD LAB - URINE ORDERABLES Performing Organization Address City/[facility]/ZIP Code Phon e Number [facility] [place] [address] [facility] documented in this encounter Visit Diagnoses Diagnosis Back pain - Primary Backache, unspecified documented in this encounter Care Teams Watch Guard Gate Relationship Specialty Start Date End Date Jonathan Velásquez MD PCP - General 11/10/05 01/21/11 documented as of this encounter
--- OUTSIDE RECORDS SUMMARY | 2022-08-21 17:02 | XMS_ITS | Encounter Summary ---
:1960 Author Organization [place] Address [facility] [place] [address] Care Team Providers Name Role Phone Jonathan Velásquez MD Primary Care Provider Reason for Visit Reason Comments Cough dry cough and congestion, st uffed up Encounter Details Date Type Department Care Team Description 08/29/2006 Office Visit [facility] Jonathan Velásquez, ACUTE URI MULT [facility] Clinic Britta Chaudhry MD NEC (Primary Dx) [address] [facility] XXX RETIRED X XX Drive [address] [facility] [place] [place] [address] N[place] Z[place] [phone] [address] Social History Tobacco Use Types Packs/Day [...] do you attend confucianist or Not asked gnosticism services? Do you [...] Comments Blood Pressure 116/74 08/29/2006 10:00 AM BROKERAGE OFFICE MANAGER Pulse 99 08/29/2006 10:00 AM BROKERAGE OFFICE MANAGER Temperature 36.3 ??C (97.4 ??F) 08/29/2006 10:00 AM BROKERAGE OFFICE MANAGER Respiratory Rate - - Oxygen Saturation - - Inhaled Oxygen Concentration - - Weight 78.9 kg (174 lb) 08/29/2006 10:00 AM BROKERAGE OFFICE MANAGER Height 162.6 cm (5' 4) 08/29/2006 10:00 AM BROKERAGE OFFICE MANAGER Body Mass Index 29.87 08/29/2006 10:00 AM BROKERAGE OFFICE MANAGER documented in this encounter Progress Notes Jonathan [...] MCG/ACT NA SUSP Continue Mucinex. Follow-up p.r.n. ERAGE OFFICE MANAGER documented in this encounter Nursing Notes 08/29/2006 [...] Primary documented in this encounter Care Teams Insurance Sales Associate Relationship Specialty Start Date End Date Jonathan Velásquez MD PCP - General 11/10/05 01/21/11 documented as of this encounter
--- OUTSIDE RECORDS SUMMARY | 2022-08-21 17:02 | XMS_ITS | Encounter Summary ---
:1960 Author Organization [place] Address [address] [place] [address]. [place] [address] Care Team Providers Name Role Phone Jonathan Velásquez MD Primary Care Provider Reason for Visit Reason Onset Date Comments Refill Request 08/13/2010 selenium sulfide sha mpoo Encounter Details Date Type Department Care Team Description 08/13/2010 Refill [facility] Jonathan Velásquez MD Refill Request (selenium Clinic Neal XXX RETIRED XXX sulfide shampoo) [address] [place] [address] [address] [facility] [address] George Chaudhry [place] [facility] [place] [phone] (Wo rk) Social History Tobacco Use Types [...] you attend oriental orthodox or Not asked adventist services? Do you [...] this encounter Miscellaneous Notes Telephone Encounter - Mel Burns - 08/13/2010 12:05 PM CST Last Office Visit: 09/09/08 Last refill date: none stated Future appt: Nothing scheduled at this time. Mel Fish CMA K MAKER documented in this encounter Plan of Treatment Not on filedocumented as of this encounter Visit Diagnoses Diagnosis Other specified disease of hair and hair follicles documented in this encounter Care Teams Assistant Professor Nurse Education Relationship Specialty Start Date End Date Jonathan Velásquez MD PCP - General 11/10/05 01/21/11 documented as of this encounter
--- OUTSIDE RECORDS SUMMARY | 2022-08-21 17:02 | XMS_ITS | Encounter Summary ---
:1960 Author Organization [place] Address [address] [facility] [place] [address] Care Team Providers Name Role Phone Jonathan Velásquez MD Primary Care Provider Encounter Details Date Type Department Care Team Description 04/28/2006 Orders Only [facility] SCR EENING FOR VENERAL DIS [facility] [address] [place] [address] Social History Tobacco Use Types [...] do you attend restoration or Not asked adventist services? Do you [...] logist Time Signature HIV 1&2 Negative NEG [facility] Antibody [facility] LABS Specimen Anatomical Collection Method Collection Time Receive d Time (Source) Location / / Volume Laterality 04/28/2006 2:22 PM 6 2:23 CDT PM CDT Jonathan Velásquez MD LABORATORY Performing Organization Address City/State/ZIP Code Phon e Number [facility] [address] [place], [place] [id number] [place] [address] LABS documented in this encounter Visit Diagnoses Diagnosis Screening examination for venereal disea se documented in this encounter Care Teams Information Technology Intern Relationship Specialty Start Date End Date Jonathan Velásquez MD PCP - General 11/10/05 01/21/11 documented as of this encounter
--- OUTSIDE RECORDS SUMMARY | 2022-08-21 17:02 | XMS_ITS | Encounter Summary ---
:1960 Author Organization [place] Address [address] [place] [address]. [place] [address] Care Team Providers Name Role Phone Jonathan Velásquez MD Primary Care Provider Reason for Visit Reason Comments Hair/Scalp Problem itchy scalp, has had for yea rs Encounter Details Date Type Department Care Team Description 03/06/2008 Office Visit [facility] Jonathan Velásquez, Other Specified Clinic Britta Chaudhry MD Disease of Hair and [address] [place] [address] XXX RETIRED X XX Hair Follicles [address] [place] [address] (Primary Dx) [place] [address] N[place]IL Z[place] [phone] Social History Tobacco Use Types Packs/Day [...] do you attend cheondoism or Not asked buddhism services? Do you [...] 25.06 kg/(m^2). BP completed using cuff size: rain Carpenter, SMA documented in this encounter Plan of Treatment Not on filedocumented as of this encounter Visit Diagnoses Diagnosis Other specified disease of hair and hair follicles - Primary documented in this encounter Care Teams Six Sigma Black Belt Engineer Relationship Specialty Start Date End Date Jonathan Velásquez MD PCP - General 11/10/05 01/21/11 documented as of this encounter
--- OUTSIDE RECORDS SUMMARY | 2022-08-21 17:02 | XMS_ITS | Encounter Summary ---
:1960 Author Organization [place] Address [address] [facility] [place] [address] Care Team Providers Name Role Phone Jonathan Velásquez MD Primary Care Provider Encounter Details Date Type Department Care Team Description 06/01/2007 Historic Results INTERFACED REPORT Hiren Bahena MD [facility] [address] [place], [place] [phone] (Wo rk) Social History Tobacco Use Types [...] do you attend restorationist or Not asked jain services? Do you [...] 12:01 06/01/2007 2:26 PM CDT PM CDT Hirne Bahena MD LAB - URINE ORDERABLES Performing Organization Address City/State/ZIP Code Phon e Number [facility] documented in this encounter Visit Diagnoses Not on filedocumented in this encounter Care Teams Roulette Dealer Relationship Specialty Start Date End Date Jonathan Velásquez MD PCP - General 11/10/05 01/21/11 documented as of this encounter
--- OUTSIDE RECORDS SUMMARY | 2022-08-21 17:02 | XMS_ITS | Encounter Summary ---
:1960 Author Organization [place] Address [facility] [place] [address] Care Team Providers Name Role Phone Unavailable Primary Care Provider Unavailable Reason for Visit Reason Comments Cough x 2 weeks Encounter Details Date Type Department Care Team Description 09/16/2005 Office Visit [facility] Jonathan Velásquez, PNEUM ONIA, ORGANISM NOS (Primary Dx); Clinic Britta Chaudhry MD DEPRESSIVE DISORDER NEC [address] [facility] XXX RETIRED X XX Drive 0 [place] [address] NABIL ZHOU [phone] [address] Social History Tobacco Use Types Packs/Day [...] do you attend buddhist or Not asked tenriism services? Do you [...] Comments Blood Pressure 117/71 09/16/2005 3:30 PM CUTTER OPERATOR Pulse 103 09/16/2005 3:30 PM CUTTER OPERATOR Temperature 36.7 ??C (98.1 ??F) 09/16/2005 3:30 PM CUTTER OPERATOR Respiratory Rate - - Oxygen Saturation - - Inhaled Oxygen Concentration - - Weight 73.9 kg (163 lb) 09/16/2005 3:30 PM CUTTER OPERATOR Height 167.6 cm (5' 6) 09/16/2005 3:30 PM CUTTER OPERATOR Body Mass Index 26.31 09/16/2005 3:30 PM CUTTER OPERATOR documented in this encounter Progress Notes Jonathan [...] therapist suggested that we start him on [place] Pro. I've explained to him that drugs [...] discussing his depressive sx and medication options. ER OPERATOR documented in this encounter Nursing Notes 09/16/2005 3:30 PM CST >> MARGARITA RODAS 09/16/2005 3:26 pm Patient presents with: Cough - x 2 weeks BP 117/71 Pulse 103 Temp (Src) 98.1 (Oral) Ht 5' 6 (1.68m) Wt 163 lbs (73.9kg) BP completed using cuff size: large. P.[place] AVIONICS ELECTRONICS TECHNICIAN documented in this encounter Plan of Treatment Not on filedocumented as of this encounter Procedures Procedure Name Priority Date/Time Associated Diagnosis Comme nts HC CHEST TWO VIEWS, Routine 09/16/2005 Pneumonia, Organism R esults for this FRONT/LAT Nos procedure are i n the results section . documented in this encounter Results CHEST X-RAY 2 VW (09/16/2005) Anatomical Region Laterality Modality Other Impressions 09/16/2005 Ordering MD/Provider Initial Interpretation: Normal/Negative shielded Electronically filed by Mabel Whittington ??09/17/2005 ??4:22 PM . REPORT OF OUTSIDE FILMS FROM [facility] DEJUAN RODRIGUEZ : ??62 PA AND LEFT LATERAL CHEST: ??09/16/05 Normal in two views. Lyndon Leyva M.D./[facility] D & T: ??09/19/05 Electronically filed by Kirstie Magallon ??09/23/2005 ??9:48 AM Jonathan Velásquez MD GENERAL IMAGING documented in this encounter Visit Diagnoses Diagnosis Pneumonia, organism unspecified(486) - P rimary Pneumonia, organism unspecified Depressive disorder, not elsewhere class ified documented in this encounter
--- OUTSIDE RECORDS SUMMARY | 2022-08-21 17:02 | XMS_ITS | Encounter Summary ---
:1960 Author Organization [place] Address [facility] [place] [address] Care Team Providers Name Role Phone Jonathan Velásquez MD Primary Care Provider Reason for Visit Reason Comments Urgent Care Nausea x3 days, loss of appetite Breathing Problem lungs hurt, muscles in forea tesha and legs spastic, has MS Encounter Details Date Type Department Care Team Description 07/26/2008 Office Visit [facility] Wilfrido Henley, Rachana lized Weakness; Urgent [facility] [place] PA-C Spasticity [address] [place] [phone] Social History Tobacco Use Types [...] do you attend gnosticism or Not asked jain services? Do you [...] ER if symptoms worsen See orders in [employer] documented in this encounter Nursing Notes 07/26/2008 [...] size: NA (Not Taken) Signed by Alie Gerer LPN documented in this encounter Plan of [...] athologist Signature Sodium 139 133 - 144 [place] mmol/L [facility] Potassium 3.8 3.4 - 5.3 [place] mmol/L [facility] Chloride 104 94 - 109 [place] mmol/L [facility] Carbon Dioxide 22 20 - 32 [place] mmol/L [facility] Anion Gap 12 6 - 17 [place] mmol/L [facility] Glucose 118 (H) 60 - 99 [facility] mg/dL [facility] Urea Nitrogen 15 5 - 24 [place] mg/dL [facility] Creatinine 1.12 0.66 - [place] 1.25 mg/dL [facility] Comment: New IDMS-traceable calibration beginning 01/27/08 GFR Estimate 71 >60 mL/min/1.7m2 [place] [facility] GFR Estimate If Black 85 >60 mL/min/1.7m2 [facility] [place] [facility] Calcium 9.3 8.5 - 10.4 mg/dL [place] [facility] Bilirubin Total 0.6 0.2 - 1.3 mg/dL [facility] Albumin 4.8 3.9 - 5.1 g/dL [facility] Comment: Reference range changed on 05/30. Protein Total 7.7 6.8 - 8.8 g/dL [facility] Comment: As of 08, reference range reflects plasma specimen type. Alkaline Phosphatase 55 40 - 150 U/L [facility] ALT 40 0 - 70 U/L [facility] AST 31 0 - 55 U/L [facility] Specimen Anatomical Collection Method Collection Time Receive d Time (Source) Location / / Volume Laterality 07/26/2008 7:54 PM 8 7:59 CDT PM CDT Wilfrido Henley PA-C LABORATORY Performing Organization Address City/State/ZIP Code Phon e Number [facility] [address] [place] [address] [facility] CBC WITH PLATELETS (07/26/2008 7:54 PM CDT) P athologist Signature WBC 7.3 4.0 - 11.0 [place] 10e9/L [facility] RBC Count 5.00 4.4 - 5.9 [place] 10e12/L [facility] Hemoglobin 15.1 13.3 - [place] 17.7 g/dL [facility] Hematocrit 43.2 40.0 - [place] 53.0 % [facility] MCV 86 78 - 100 [facility] MCH 30.2 26.5 - [facility] 33.0 pg [facility] MCHC 35.0 31.5 - [place] 36.5 g/dL [facility] RDW 11.0 10.0 - [place] 15.0 % [facility] Platelet Count 185 150 - 450 [place] 10e9/L [facility] Specimen Anatomical Collection Method Collection Time Receive d Time (Source) Location / / Volume Laterality 07/26/2008 7:54 PM 8 7:59 CDT PM CDT Wilfrido Henley PA-C LABORATORY Performing Organization Address City/[facility]/ZIP Code Phon e Number [facility] [address] [address] [facility] (ABNORMAL) UA MICRO IF POSITIVE (07/26/2008 7:53 PM CDT) [facility] Method Time Signature Color Urine Yellow [facility] Appearance Urine Clear [facility] Glucose Urine Negative NEG mg/dL [facility] Bilirubin Urine Negative NEG [facility] Ketones Urine Negative NEG mg/dL [facility] Specific [place] <=1.005 1.003 - [place] Urine 1.035 [facility] Blood Urine Negative NEG [facility] pH Urine 7.5 (H) 5.0 - 7.0 [place] pH [facility] Protein Albumin Negative NEG mg/dL [place] Urine [facility] Urobilinogen 0.2 0.2 - 1.0 [place] Urine EU/dL [facility] Nitrite Urine Negative NEG [facility] Leukocyte Negative NEG [place] Esterase Urine [facility] Source Midstream [place] Urine [facility] Specimen Anatomical Collection Method Collection Time Receive d Time (Source) Location / / Volume Laterality 07/26/2008 7:53 PM 8 7:58 CDT PM CDT Wilfrido Henley PA-C LABORATORY Performing Organization Address City/[facility]/ZIP Code Phon e Number [facility] [address] [place] [address] [facility] CHEST X-RAY 2 VW (07/26/2008) Anatomical Region Laterality Modality Other Impressions 07/26/2008 REPORT OF OUTSIDE FILMS FROM [facility] DEJUAN RODRIGUEZ ?: 62 CHEST TWO VIEWS: 07/26/08 FINDINGS: Negative. ??No active infiltra josr. Dejuan Simeon M.D./jenny D/T: ??07/27/08 Electronically filed by Kirstie Magallon ??07/27/2008 ??10:52 AM Wilfrido Henley PA-C GENERAL IMAGING documented in this encounter Visit Diagnoses Diagnosis Generalized weakness Other malaise and fatigue Spasticity Abnormal involuntary movements documented in this encounter Care Teams Ergonomics Technician Relationship Specialty Start Date End Date Jonathan Velásquez MD PCP - General 11/10/05 01/21/11 documented as of this encounter
--- OUTSIDE RECORDS SUMMARY | 2022-08-21 17:02 | XMS_ITS | Encounter Summary ---
:1960 Author Organization [place] Address [address] [place] [address] Care Team Providers Name Role Phone Unavailable Primary Care Provider Unavailable Encounter Details Date Type Department Care Team Description 09/04/2005 Therapy Visit [place] Cyndi Crews iamCERVICA LGIA (Primary Athletic Medicine - PT Dx) George Stapleton [facility] GEORGE STAPLETON PhysicalTherapy [address] [place] [address] [address] GE[facility]GE STAPLETON [facility] [place] [address] [phone] Social History Tobacco Use Types Packs/Day Years [...] do you attend baptist or Not asked scientology services? Do you [...] today. Please refer to the discharge evaluation. TRACK LAYER documented in this encounter Plan of Treatment Not on filedocumented as of this encounter Procedures Procedure Name Priority Date/Time Associated Diagnosis Comme nts [facility] THERAPEUTIC Routine 09/04/2005 1:13 PM RAIL TRACK LAYER iamCERVICALGIA EXERCISES [facility] MECHANICAL TRACTION Routine 09/04/2005 1:13 PM RAIL TRACK LAYER iamCERV ICALGIA THERAPY [facility] HOT OR COLD PACKS Routine 09/04/2005 1:13 PM RAIL TRACK LAYER iamCERVIC ALGIA THERAPY documented in this encounter Visit Diagnoses Diagnosis iamCERVICALGIA - Primary Cervicalgia documented in this encounter
--- OUTSIDE RECORDS SUMMARY | 2022-08-21 17:02 | XMS_ITS | Encounter Summary ---
:1960 Author Organization [place] Address [facility] [place] [address] Care Team Providers Name Role Phone Jonathan Velásquez MD Primary Care Provider Reason for Visit Reason Comments Patient Request STD testing Encounter Details Date Type Department Care Team Description 04/27/2006 Office Visit [facility] Jonathan Velásquez, MARIA ELENA HORNE FOR VENERAL Clinic Britta Chaudhry MD DIS (Primary Dx) 830 [facility] XXX RETIRED X XX Drive [address] [facility] [place] [address] NABIL ZHOU [phone] Social History Tobacco Use Types Packs/Day [...] do you attend caodaism or Not asked evangelical services? Do you [...] Body Mass Index 26.08 11/11/2005 12:30 PM PROCESS OPERATOR documented in this encounter Progress Notes [...] Nursing Notes 04/27/2006 2:15 PM CDT >> TRAVIS HO 04/27/2006 2:12 pm Dejuan Rodriguez presents for STD testing. Initial BP 114/58 Pulse 99 Wt 161 lbs 9.6 oz (73.3kg) Estimated Body mass index is 26.10 kg/(m^2) as calculated from: Height of 5' 6 (1.676 m) as of 11/11/05 Weight of 161 lbs 9.6 oz (73.301 kg) as of this encounter. BP completed using cuff size: rabia Prabhakar CMA documented in this encounter Plan of Treatment Not on filedocumented as of this encounter Visit Diagnoses Diagnosis Screening examination for venereal disea se - Primary documented in this encounter Care Teams Agile Business Analyst Relationship Specialty Start Date End Date Jonathan Velásquez MD PCP - General 11/10/05 01/21/11 documented as of this encounter
--- OUTSIDE RECORDS SUMMARY | 2022-08-21 17:02 | XMS_ITS | Encounter Summary ---
:1960 Author Organization [place] Address [address] [facility] [place] [address] Care Team Providers Name Role Phone Jonathan Velásquez MD Primary Care Provider Encounter Details Date Type Department Care Team Description 05/25/2007 Results Only [facility], Hiren gómez MD [facility] Results [facility] [address] [facility] [address] [place], [place] [address] (Wo rk) Social History Tobacco Use Types [...] or relatives? How often do you attend mormonism or Not asked religion services? Do you belong to any clubs or Not asked organizations such as mormonism groups, unions, fraternal or athletic groups, or [...] Procedure Name Priority Date/Time Associated Diagnosis Comme [facility] Routine 05/25/2007 11:46 AM Results for this [...] filedocumented in this encounter Care Teams Assistant Speech Language Pathologist Relationship Specialty Start Date End Date Jonathan Velásquez MD PCP - General 11/10/05 01/21/11 documented as of this encounter
--- OUTSIDE RECORDS SUMMARY | 2022-08-21 17:02 | XMS_ITS | Encounter Summary ---
:1960 Author Organization [place] Address [address] [facility] [address] Care Team Providers Name Role Phone Jonathan Velásquez MD Primary Care Provider Teresita Garcia MD Primary Care Provider Teresita Garcia MD Unavailable Teresita Garcia MD Unavailable Dolores Caputo PROJECT ARCHITECT Unavailable Letha Vasquez MA Unavailable Audrey Hickman MD Unavailable [phone] Encounter Details Date Type Department Care Team Description 02/28/[address] [facility] [place] [place] Jonathan Velásquez [facility] t [facility] Britta Chaudhry MD [address] XXX RETIRED X XX Drive [address] [place] [address] [place] [address] NABIL ZHOU [phone] (Wo rk) Social History Tobacco Use Types [...] do you attend rastafari or Not asked caodaism services? Do you [...] Primary documented in this encounter Care Teams Stacker Driver Relationship Specialty Start Date End Date Jonathan Velásquez MD PCP - General 11/10/05 01/21/11 Teresita Garcia MD PCP - General Family Practice 01/22/11 [address] [place] [address] Teresita Garcia MD PCP - Assigned PCP 11/16/16 11/30/18 [address] [place] [address] Teresita Garcia MD Assigned PCP 11/16/16 12/28/21 [address] [place] [address] Dolores Caputo, PROJECT ARCHITECT Lead Manager Medical Device Primary Care - CC 06/27/20 09/03/20 Letha Vasquez, Community Health Worker 07/05/20 09/03/20 MA Audrey Hickman Assigned PCP 12/29/21 [place] [address] [place] [address] documented as of this encounter
--- OUTSIDE RECORDS SUMMARY | 2022-08-21 17:02 | XMS_ITS | Encounter Summary ---
:1960 Author Organization [place] Address [address] [facility] [place] [address] Care Team Providers Name Role Phone Jonathan Velásquez MD Primary Care Provider Reason for Visit Reason Comments Sinus Problem Encounter Details Date Type Department Care Team Description 08/07/2006 Office Visit [facility] Sudhir Vazquez, NOSE AN OMALY KATHARINE Vee MD (Primary Dx) [address] [place] [address] AULTMAN [phone] [place] [phone] Social History Tobacco Use Types Packs/Day [...] do you attend scientology or Not asked advent services? Do you [...] Comments Blood Pressure 108/60 08/07/2006 1:30 PM STONE CARVER Pulse - - Temperature 36.3 ??C (97.3 ??F) 08/07/2006 1:30 PM STONE CARVER Respiratory Rate - - Oxygen Saturation - - Inhaled Oxygen Concentration - - Weight 77.9 kg (171 lb 12.8 oz) 08/07/2006 1:30 PM STONE CARVER Height 167.6 cm (5' 6) 08/07/2006 1:30 PM STONE CARVER Body Mass Index 27.73 08/07/2006 1:30 PM STONE CARVER documented in this encounter Progress Notes Sudhir [...] pt. The potentialside effects with Afrin use watermaster. Recommended pt. To use it only for extreme discomfort at bedtime. And limited its use to less than 3 days. Follow up with PMD of symptoms worse. E CARVER documented in this encounter Nursing Notes 08/07/2006 [...] ry documented in this encounter Care Teams Tray Setter Relationship Specialty Start Date End Date Jonathan Velásquez MD PCP - General 11/10/05 01/21/11 documented as of this encounter
--- OUTSIDE RECORDS SUMMARY | 2022-08-21 17:02 | XMS_ITS | Encounter Summary ---
:1960 Author Organization [place] Address [facility] [place] [address] Care Team Providers Name Role Phone Jonathan Velásquez MD Primary Care Provider Reason for Visit Reason Comments Flu Walk-in:Flu like symptoms Encounter Details Date Type Department Care Team Description 10/02/2010 [facility]/Nurse [facility] Flu (Walk-in:Flu like Visit Clinic [facility], [address] [place] [address] Social History Tobacco Use Types [...] do you attend protestant or Not asked presybeterian services? Do you [...] 36.4 ??C (97.6 ??F) 10/02/2010 3:24 PM DESTINATION IMAGINATION COORDINATOR Respiratory Rate - - Oxygen Saturation - [...] Patient comfortable with advice. Haily Adams RN INATION IMAGINATION COORDINATOR documented in this encounter Plan of Treatment Not on filedocumented as of this encounter Visit Diagnoses Diagnosis Flu-like symptoms - Primary Influenza with other respiratory manifes tations documented in this encounter Care Teams Textile Pin Worker Relationship Specialty Start Date End Date Jonathan Velásquez MD PCP - General 11/10/05 01/21/11 documented as of this encounter
--- OUTSIDE RECORDS SUMMARY | 2022-08-21 17:02 | XMS_ITS | Encounter Summary ---
:1960 Author Organization [place] Address [address] [facility] [place] [address] Care Team Providers Name Role Phone Jonathan Velásquez MD Primary Care Provider Encounter Details Date Type Department Care Team Description 12/06/2007 Historic Results INTERFACED REPORT Chris Mcmahan MD [facility] [address] [place] [address] (Wo rk) Social History Tobacco [...] differential and platelet (12/06/2007 3:50 PM CDT) [facility] gist Method Time Signature MCV 89 [...] LAB - BLOOD ORDERABLES Performing Organization Address City/State/[facility] Code Phon e Number [facility] Platelet count (12/06/2007 3:50 PM CDT) P athologist Signature Platelet Count 197 150 - 450 [facility] 10e9/L Specimen Anatomical Collection Method Collection Time Receive d Time (Source) Location / / Volume Laterality 12/06/2007 3:50 PM 8 4:07 CDT PM CDT Chris Mcmahan MD LAB - BLOOD ORDERABLES Performing Organization Address City/State/[facility] Code Phon e Number [facility] documented in this encounter Visit Diagnoses Not on filedocumented in this encounter Care Teams Highway Maintenance Technician Relationship Specialty Start Date End Date Jonathan Velásquez MD PCP - General 11/10/05 01/21/11 documented as of this encounter
--- OUTSIDE RECORDS SUMMARY | 2022-08-21 17:02 | XMS_ITS | Encounter Summary ---
:1960 Author Organization [place] Address [address] [place] [address]. [place] [address] Care Team Providers Name Role Phone Jonathan Velásquez MD Primary Care Provider Reason for Visit Reason Onset Date Comments Refill Request 08/07/2009 selenium Encounter Details Date Type Department Care Team Description 08/07/2009 Refill [facility] Jonathan Velásquez MD Refill Request Clinic George Stapleton XXX RETIRED XXX (selenium) [address] [place] [address] George Stapleton[place] [phone] (Wo rk) Social History Tobacco Use Types [...] do you attend mormon or Not asked christianity services? Do you [...] to refill per so. Adina Jimenez RN Y DIPPER HAND Telephone Encounter - Marnie Quesada - 08/07/2009 1:39 PM CST Last office visit: 08/30/2008 Future appointment: none Last refill: 12/11/2008 Marnie Quesada MA Y DIPPER HAND documented in this encounter Plan of Treatment Not on filedocumented as of this encounter Visit Diagnoses Diagnosis Other specified disease of hair and hair follicles - Primary documented in this encounter Care Teams Colorer Relationship Specialty Start Date End Date Jonathan Velásquez MD PCP - General 11/10/05 01/21/11 documented as of this encounter
--- OUTSIDE RECORDS SUMMARY | 2022-08-21 17:02 | XMS_ITS | Encounter Summary ---
:1960 Author Organization [place] Address [address] [place] [address] Care Team Providers Name Role Phone Jonathan Velásquez MD Primary Care Provider Reason for Visit Reason Comments Pre-Op Exam Depression Encounter Details Date Type Department Care Team Description 12/13/[address] [facility] Nelida Corral Preop g eneral physical exam (Primary Dx); Clinic Brandon Avila MD Mild major depression (H); [place] [address] [facility] Vitamin D deficiencies; Road, [address] [place] [address] Fatigue; [place], [place] [phone] (Wo rk) Vaccine for tetanus toxoid [id number] [phone] Social History Tobacco Use Types Packs/Day Years [...] do you attend moravian or Not asked church services? Do you [...] Nelida Corral - 12/13/2010 7:43 AM CDT [address], [address] [place] [address] PRE-OP EVALUATION: Today's date: 12/13/2010 Dejuan Rodriguez (: 1960) presents for pre-operative evaluation assessment as requested byDr. Enriquez. He requires evaluation and anesthesia risk assessment prior to undergoing surgery/procedure for treatment of baclofen pump . Proposed procedure: pump placement right LQ abd. Date of Surgery/ Procedure: 12/16/2009 Time of Surgery/ Procedure: 10:30am Hospital/Surgical Facility: [facility] Fax number for surgical facility: Primary Physician: Teresita Garcia Type of Anesthesia Anticipated: General History [...] Date ??? Multiple sclerosis sees neurology at [facility] ??? Juvenile osteochondrosis of hip and [...] (12/13/2010 8:13 AM CDT) Analysis Performed At [facility] Time Signature Sodium 143 133 - 144 [place] mmol/L [facility] Potassium 4.1 3.4 - 5.3 [place] mmol/L [facility] Chloride 104 94 - 109 [place] mmol/L [facility] Carbon Dioxide 27 20 - 32 [place] mmol/L [facility] Anion Gap 12 6 - 17 [place] mmol/L [facility] Glucose 95 60 - 99 [place] mg/dL [facility] Urea Nitrogen 21 5 - 24 [place] mg/dL [facility] Creatinine 1.26 (H) 0.66 - [facility] 1.25 mg/dL [facility] GFR Estimate 61 >60 [place] mL/min/1.7 [facility] m2 LAB GFR Estimate If 74 >60 [place] Black mL/min/1.7 [facility] m2 LAB Calcium 9.4 8.5 - 10.4 [place] mg/dL [facility] Bilirubin Total 1.0 0.2 - 1.3 [place] mg/dL [facility] Albumin 4.6 3.9 - 5.1 [place] g/dL [facility] Comment: Reference range changed on 05/30. Protein Total 7.0 6.8 - 8.8 g/dL [facility] Comment: As of 08, reference range reflects plasma specimen type. Alkaline Phosphatase 55 40 - 150 U/L [facility] ALT 24 0 - 70 U/L [facility] AST 20 0 - 55 U/L [facility] Specimen Anatomical Collection Method Collection Time Receive d Time (Source) Location / / Volume Laterality Blood specimen 12/13/2010 8:13 AM 011 8:18 (specimen) CDT AM CDT Nelida Corral MD LAB - BLOOD ORDERABLES Performing Organization Address City/State/ZIP Code Phon e Number [facility] [address] [place] [address] [facility] (ABNORMAL) Lipid panel reflex to direct LDL (12/13/2010 8:13 AM CDT) P athologist Signature Cholesterol 143 0 - 200 [facility] mg/dL CLINIC LAB Comment: LDL Cholesterol is the primary guide to therapy. The NCEP recommends further evaluation of: patients with cholesterol <200 mg/dL if additional risk factors are present, cholesterol >240 mg/dL, triglycerides >150 mg/dL, or HDL <40 mg/dL. Triglycerides 259 (H) 0 - 150 mg/dL [facility] HDL Cholesterol 41 40 - 110 mg/dL [facility] LDL Cholesterol Calculated 50 0 - 129 mg/dL [facility] Comment: LDL Cholesterol is the primary guide to therapy: LDL-cholesterol goal in high risk patients is <100 mg/dL and in very high risk patients is <70 mg/dL. VLDL-Cholesterol 52 (H) 0 - 30 mg/dL [facility] Cholesterol/HDL Ratio 3.5 0.0 - 5.0 [facility] Specimen Anatomical Collection Method Collection Time Receive d Time (Source) Location / / Volume Laterality Blood specimen 12/13/2010 8:13 AM 011 8:18 (specimen) CDT AM CDT Nelida Corral MD LAB - BLOOD ORDERABLES Performing Organization Address City/State/ZIP Code Phon e Number [facility] [address] [place] [address] [facility] Vitamin D deficiency screening (12/13/2010 8:13 AM CDT) Component Value Ref Test Analysis Performed At Patholo gist Range Method Time Signature 25 [place] Vit D2 <5 ug/L [facility] 25 [place] Vit D3 43 ug/L [facility] 25 [place] Vit D <48 30 - 75 [facility] total Season, race, dietary intake, and treatm ent affect the concentration of ug/L [facility] 17-buinhoe-Zuusmqn D. Values may decrease during michelle er [...] Phon e Number [facility] [address] [place] [address] [facility] TSH with free T4 reflex (12/13/2010 8:13 AM CDT) athologist Signature TSH 2.73 0.4 - 5.0 [facility] mU/L CLINIC LAB Specimen Anatomical Collection Method Collection Time Receive d Time (Source) Location / / Volume Laterality Blood specimen 12/13/2010 8:13 AM 011 8:18 (specimen) CDT AM CDT Nelida Corral MD LAB - BLOOD ORDERABLES Performing Organization Address City/[facility]/ZIP Code Phon e Number [facility] [address] [place] [address] [facility] CBC with platelets (12/13/2010 8:13 AM CDT) athologist Signature WBC 8.1 4.0 - 11.0 [place] 10e9/L [facility] RBC Count 4.90 4.4 - 5.9 [place] 10e12/L [facility] Hemoglobin 15.3 13.3 - [facility] 17.7 g/dL [facility] Hematocrit 42.9 40.0 - [facility] 53.0 % [facility] MCV 88 78 - 100 [facility] MCH 31.2 26.5 - [facility] 33.0 pg [facility] MCHC 35.7 31.5 - [facility] 36.5 g/dL [facility] RDW 12.8 10.0 - [facility] 15.0 % [facility] Platelet Count 187 150 - 450 [place] 10e9/L [facility] Specimen Anatomical Collection Method Collection Time Receive d Time (Source) Location / / Volume Laterality Blood specimen 12/13/2010 8:13 AM 011 8:18 (specimen) CDT AM CDT Nelida Corral MD LAB - BLOOD ORDERABLES Performing Organization Address City/State/ZIP Code Phon e Number [facility] [address] [facility] documented in this encounter Visit Diagnoses Diagnosis Preop general physical exam - Primary Other specified pre-operative examinatio n Mild major depression (H) Major depressive disorder, single episod e, mild Vitamin D deficiencies Unspecified vitamin D deficiency Fatigue Other malaise and fatigue Vaccine for tetanus toxoid Need for prophylactic vaccination with t etanus toxoid alone documented in this encounter Care Teams Dandy Tender Relationship Specialty Start Date End Date Jonathan Velásquez MD PCP - General 11/10/05 01/21/11 documented as of this encounter
--- OUTSIDE RECORDS SUMMARY | 2022-08-21 17:02 | XMS_ITS | Encounter Summary ---
:1960 Author Organization [place] Address [address] [place] [address]. [place] [address] Care Team Providers Name Role Phone Jonathan Velásquez MD Primary Care Provider Reason for Visit Reason Onset Date Comments Refill Request 06/26/2008 Nasonex 50 mcg Encounter Details Date Type Department Care Team Description 06/26/2008 Refill [facility] Jonathan Velásquez MD Refill Request (Nasonex [facility] [place] XXX RETIRED XXX 50 mcg) [address] [place] [address] [address] [facility] [address] [facility] [facility] [address] [place] [address] [phone] (Wo rk) Social History Tobacco Use Types [...] do you attend congregational or Not asked taoism services? Do you [...] Last filled 10/04/07 Last OV 03/06/08 Caryn GUTHRIE documented in this encounter Plan of Treatment Not on filedocumented as of this encounter Visit Diagnoses Diagnosis Acute upper respiratory infections of ot her multiple sites documented in this encounter Care Teams Director Of Outreach Relationship Specialty Start Date End Date Jonathan Velásquez MD PCP - General 11/10/05 01/21/11 documented as of this encounter
--- OUTSIDE RECORDS SUMMARY | 2022-08-21 17:02 | XMS_ITS | Encounter Summary ---
:1960 Author Organization [place] Address [facility] [place] [address] Care Team Providers Name Role Phone Jonathan Velásquez MD Primary Care Provider Reason for Visit Reason Comments Sinus Problem past week Encounter Details Date Type Department Care Team Description 08/13/2006 Office Visit [facility] Patience Sampson APRN ACUTE MAXILLARY Clinic [facility] SINUSITIS (Primary Dx) [address] [place] [address] Social History Tobacco Use Types [...] do you attend mormonism or Not asked latter day services? Do [...] Comments Blood Pressure 102/63 08/13/2006 11:30 AM ENTRY SPECIALIST Pulse 98 08/13/2006 11:30 AM ENTRY SPECIALIST Temperature 36.6 ??C (97.9 ??F) 08/13/2006 11:30 AM ENTRY SPECIALIST Respiratory Rate - - Oxygen Saturation - - Inhaled Oxygen Concentration - - Weight 78.9 kg (174 lb) 08/13/2006 11:30 AM ENTRY SPECIALIST Height 166.4 cm (5' 5.5) 08/13/2006 11:30 AM ENTRY SPECIALIST Body Mass Index 28.51 08/13/2006 11:30 AM ENTRY SPECIALIST documented in this encounter Progress Notes [...] Follow up if not improving as expected Y SPECIALIST documented in this encounter Nursing Notes 08/13/2006 11:30 AM CST >> ARA MORALES 08/13/2006 11:23 am Patient presents with: Sinus Problem - past week Initial BP 102/63 Pulse 98 Temp (Src) 97.9 (Oral) Ht 5' 5.5 (1.66m) Wt 174 lbs (78.9kg) Body mass index is 28.50 kg/(m^2).. BP completed using cuff size: large Ara Morales LPN documented in this encounter Plan of Treatment Not on filedocumented as of this encounter Visit Diagnoses Diagnosis Acute maxillary sinusitis - Primary documented in this encounter Care Teams Slunk Skinner Relationship Specialty Start Date End Date Jonathan Velásquez MD PCP - General 11/10/05 01/21/11 documented as of this encounter
--- OUTSIDE RECORDS SUMMARY | 2022-08-21 17:03 | XMS_ITS | Encounter Summary ---
:1960 Author Organization [place] Address [facility] [address] Care Team Providers Name Role Phone Unavailable Primary Care Provider Unavailable Reason for Visit Reason Comments Consult Jax natalie Has MS Encounter Details Date Type Department Care Team Description 09/01/2005 Office Visit [facility] Jonathan Velásquez, MULTI PLE SCLEROSIS (H); Clinic Britta Chaudhry MD [facility] [address] X XX [address] Britta Chaudhry [facility] [address] NABIL RIOS [phone] [address] Social History Tobacco Use Types Packs/Day [...] do you attend episcopalian or Not asked protestant services? Do you [...] Comments Blood Pressure 108/70 09/01/2005 12:15 PM TRAFFIC I MANAGER Pulse 80 09/01/2005 12:15 PM TRAFFIC I MANAGER Temperature 36.2 ??C (97.2 ??F) 09/01/2005 12:15 PM TRAFFIC I MANAGER Respiratory Rate - - Oxygen Saturation - - Inhaled Oxygen Concentration - - Weight 72.6 kg (160 lb) 09/01/2005 12:15 PM TRAFFIC I MANAGER Height 167.6 cm (5' 6) 09/01/2005 12:15 PM TRAFFIC I MANAGER Body Mass Index 25.82 09/01/2005 12:15 PM TRAFFIC I MANAGER documented in this encounter Progress Notes [...] in the meantime, he will call me. FIC I MANAGER documented in this encounter Nursing Notes 09/01/2005 12:15 PM CST >> MARGARITA RODAS 09/01/2005 12:21 pm Patient presents with: Consult - [place] Has MS BP 108/70 Pulse 80 Temp (Src) 97.2 (Oral) Ht 5' 6 (1.68m) Wt 160 lbs (72.6kg) BP completed using cuff size: large. Caryn GUTHRIE documented in this encounter Plan of Treatment Not on filedocumented as of this encounter Visit Diagnoses Diagnosis Multiple sclerosis (H) Multiple sclerosis Other general counseling and advice for contraceptive management documented in this encounter
--- OUTSIDE RECORDS SUMMARY | 2022-08-21 17:03 | XMS_ITS | Encounter Summary ---
:1960 Author Organization [place] Address [facility] [place] [address] Care Team Providers Name Role Phone Unavailable Primary Care Provider Unavailable Encounter Details Date Type Department Care Team Description 08/28/2005 Therapy Visit [place] Cyndi Crews iamCERVICA LGIA (Primary Athletic Medicine - PT Dx) George Stapleton [facility] GEORGE STAPLETON PhysicalTherapy [address] [place] [address] [address] GEORGE STAPLETON [place] [address] [phone] Social History Tobacco Use Types Packs/Day Years [...] do you attend druze or Not asked sabianist services? Do you [...] to the daily flowsheet for treatment today. 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 Plan of Treatment Not on filedocumented as of this encounter Procedures Procedure Name Priority Date/Time Associated Diagnosis Comme nts [facility] THERAPEUTIC Routine 08/28/2005 1:51 PM TEAM OTR TRUCK DRIVER iamCERVICALGIA EXERCISES [facility] MECHANICAL TRACTION Routine 08/28/2005 1:51 PM TEAM OTR TRUCK DRIVER iamCERV ICALGIA THERAPY [facility] HOT OR COLD PACKS Routine 08/28/2005 1:51 PM TEAM OTR TRUCK DRIVER iamCERVIC [place] THERAPY documented in this encounter Visit Diagnoses Diagnosis iamCERVICALGIA - Primary Cervicalgia documented in this encounter
--- OUTSIDE RECORDS SUMMARY | 2022-08-21 17:03 | XMS_ITS | Encounter Summary ---
:1960 Author Organization [place] Address [facility] [place] [address] Care Team Providers Name Role Phone Unavailable Primary Care Provider Unavailable Encounter Details Date Type Department Care Team Description 08/25/2005 Therapy Visit [place] Cyndi Crews iamCERVICA LGIA (Primary Athletic Medicine - PT Dx) George Stapleton [facility] GEORGE STAPLETON PhysicalTherapy [address] [place] [address] [address] GE[place] STAP[place] [facility] [place] [address] [phone] Social History Tobacco Use Types Packs/Day Years [...] do you attend voodoo or Not asked scientologist services? Do you [...] the daily flowsheet for treatment today. S COUNTER ASSOCIATE documented in this encounter Plan of Treatment Not on filedocumented as of this encounter Procedures Procedure Name Priority Date/Time Associated Diagnosis Comme nts [facility] THERAPEUTIC Routine 08/25/2005 3:36 PM PARTS COUNTER ASSOCIATE iamCERVICALGIA EXERCISES [facility] MECHANICAL TRACTION Routine 08/25/2005 3:36 PM PARTS COUNTER ASSOCIATE iamCERV ICALGIA THERAPY [facility] HOT OR COLD PACKS Routine 08/25/2005 3:36 PM PARTS COUNTER ASSOCIATE iamCERVIC [place] [facility]ER[facility] documented in this encounter Visit Diagnoses Diagnosis iamCERVICALGIA - Primary Cervicalgia documented in this encounter
--- OUTSIDE RECORDS SUMMARY | 2022-08-21 17:03 | XMS_ITS | Encounter Summary ---
:1960 Author Organization [place] Address [facility] [place] [address] Care Team Providers Name Role Phone Unavailable Primary Care Provider Unavailable Encounter Details Date Type Department Care Team Description 08/18/2005 Therapy Visit [place] Cyndi Crews iamCERVICA LGIA (Primary Athletic Medicine - PT Dx) George Stapleton [facility] GEORGE STAPLETON PhysicalTherapy [address] [place] [address] [address] STAPLETON [facility] [address] [phone] Social History Tobacco Use Types Packs/Day Years [...] do you attend protestant or Not asked sikh services? Do you [...] to the daily flowsheet for treatment today. E CRITIC documented in this encounter Plan of Treatment Not on filedocumented as of this encounter Procedures Procedure Name Priority Date/Time Associated Diagnosis Comme nts [facility] THERAPEUTIC Routine 08/18/2005 3:53 PM DANCE CRITIC iamCERVICALGIA EXERCISES [facility] HOT OR COLD PACKS Routine 08/18/2005 3:53 PM DANCE CRITIC iamCERVIC [place] THERAPY [facility] MECHANICAL TRACTION Routine 08/18/2005 3:53 PM DANCE CRITIC iamCERV ICALGIA THERAPY documented in this encounter Visit Diagnoses Diagnosis iamCERVICALGIA - Primary Cervicalgia documented in this encounter
--- OUTSIDE RECORDS SUMMARY | 2022-08-21 17:03 | XMS_ITS | Encounter Summary ---
:1960 Author Organization [place] Address [facility] [place] [address] Care Team Providers Name Role Phone Unavailable Primary Care Provider Unavailable Encounter Details Date Type Department Care Team Description 08/14/2005 Therapy Visit [place] Cyndi Crews iamCERVICA LGIA (Primary Athletic Medicine - PT Dx) George Stapleton [facility] GEORGE STAPLETON PhysicalTherapy [address] [place] [address] [address] GEORGE STAPLETON [facility] [place] [address] [phone] Social History Tobacco Use Types Packs/Day Years [...] do you attend orthodoxy or Not asked anglican services? Do you [...] to the daily flowsheet for treatment today. RMATICS APPLICATION ANALYST documented in this encounter Plan of Treatment Not on filedocumented as of this encounter Procedures Procedure Name Priority Date/Time Associated Diagnosis Comme nts [facility] THERAPEUTIC Routine 08/14/2005 6:21 PM INFORMATICS APPLICATION ANALYST iamCERVICALGIA EXERCISES [facility] MECHANICAL TRACTION Routine 08/14/2005 6:21 PM INFORMATICS APPLICATION ANALYST iamCERV ICALGIA THERAPY [facility] HOT OR COLD PACKS Routine 08/14/2005 6:21 PM INFORMATICS APPLICATION ANALYST iamCERVIC [place] [facility]ERAP[facility] documented in this encounter Visit Diagnoses Diagnosis iamCERVICALGIA - Primary Cervicalgia documented in this encounter
--- OUTSIDE RECORDS SUMMARY | 2022-08-21 17:03 | XMS_ITS | Encounter Summary ---
:1960 Author Organization [place] Address [facility] [place] [address] Care Team Providers Name Role Phone Unavailable Primary Care Provider Unavailable Encounter Details Date Type Department Care Team Description 08/16/2005 Therapy Visit [place] Cyndi Crews iamCERVICA LGIA (Primary Athletic Medicine - PT Dx) George Stapleton [facility] GEORGE STAPLETON PhysicalTherapy [address] [place] [address] [address] GEORGE STAPLETON [facility] [place] [address] [phone] Social History Tobacco Use Types Packs/Day Years [...] do you attend yarsanism or Not asked confucianism services? Do you [...] to the daily flowsheet for treatment today. OMER RELATIONS ASSISTANT documented in this encounter Plan of Treatment Not on filedocumented as of this encounter Procedures Procedure Name Priority Date/Time Associated Diagnosis Comme nts [facility] THERAPEUTIC Routine 08/16/2005 9:14 AM CUSTOMER RELATIONS ASSISTANT iamCERVICALGIA EXERCISES [facility] MECHANICAL TRACTION Routine 08/16/2005 9:14 AM CUSTOMER RELATIONS ASSISTANT iamCERV ICALGIA THERAPY [facility] HOT OR COLD PACKS Routine 08/16/2005 9:14 AM CUSTOMER RELATIONS ASSISTANT iamCERVIC [place] [facility]ERAP[facility] documented in this encounter Visit Diagnoses Diagnosis iamCERVICALGIA - Primary Cervicalgia documented in this encounter
--- OUTSIDE RECORDS SUMMARY | 2022-08-21 17:03 | XMS_ITS | Encounter Summary ---
:1960 Author Organization [place] Address Pending sale to [facility] [place] [address] Care Team Providers Name Role Phone Unavailable Primary Care Provider Unavailable Encounter Details Date Type Department Care Team Description 08/22/2005 Therapy Visit [place] Cyndi Crews iamCERVICA LGIA (Primary Athletic Medicine - PT Dx) George Stapleton [facility] GEORGE STAPLETON PhysicalTherapy [address] [place] [address] [address] GEOR[place] STAPLETON [facility] [place] [address] [phone] Social History Tobacco Use Types Packs/Day Years [...] do you attend taoist or Not asked worship services? Do you [...] to the daily flowsheet for treatment today. L SOCIOLOGIST documented in this encounter Plan of Treatment Not on filedocumented as of this encounter Procedures Procedure Name Priority Date/Time Associated Diagnosis Comme nts C THERAPEUTIC Routine 08/22/2005 12:29 PM iamCERVICALGIA EXERCISES RURAL SOCIOLOGIST [facility] MECHANICAL TRACTION Routine 08/22/2005 12:29 PM iamCERVICA LGIA THERAPY RURAL SOCIOLOGIST [facility] HOT OR COLD PACKS Routine 08/22/2005 12:29 PM iamCERVICALG IA THERAPY RURAL SOCIOLOGIST documented in this encounter Visit Diagnoses Diagnosis iamCERVICALGIA - Primary Cervicalgia documented in this encounter
--- OUTSIDE RECORDS SUMMARY | 2022-08-21 17:03 | XMS_ITS | Encounter Summary ---
:1960 Author Organization [place] Address [facility] [place] [address] Care Team Providers Name Role Phone Unavailable Primary Care Provider Unavailable Encounter Details Date Type Department Care Team Description 08/11/2005 Therapy Visit [place] Cyndi Crews iamCERVICA LGIA (Primary Athletic Medicine - PT Dx) George Stapleton [facility] GEORGE STAPLETON PhysicalTherapy [address] [place] [address] [address] GEORGE STAPLETON [facility] [place] [address] [phone] Social History Tobacco Use Types Packs/Day Years [...] do you attend hoahaoism or Not asked yazidism services? Do you [...] to the daily flowsheet for treatment today. HIC DESIGN TEACHER documented in this encounter Plan of Treatment Not on filedocumented as of this encounter Procedures Procedure Name Priority Date/Time Associated Diagnosis Comme nts [facility] THERAPEUTIC Routine 08/11/2005 4:55 PM GRAPHIC DESIGN TEACHER iamCERVICALGIA ACTIVITIES [facility] MECHANICAL TRACTION Routine 08/11/2005 4:55 PM GRAPHIC DESIGN TEACHER iamCERV ICALGIA THERAPY documented in this encounter Visit Diagnoses Diagnosis iamCERVICALGIA - Primary Cervicalgia documented in this encounter
--- OUTSIDE RECORDS SUMMARY | 2022-08-21 17:05 | XMS_ITS | Clinical Summary ---
:1960 Author Organization [employer] [employer] [facility] [place] [address] Care Team Providers Name Role Phone Teresita Garcia MD Primary Care Provider Lorna West RN Unavailable [facility], [facility] Unavailable Allergies Active Allergy Reactions Severity Noted [...] Active mg/mL soln Every 6 months - [facility] infuses calcium Chew 1 Tablet by 0 [...] mouth 4 capsuleIndications: times daily. neuropathic pain carBAMazepine Take 200 mg by 0 08/14/2022 Active (TEGRETOL) 200 mg mouth two times tablet daily. Hospital, Clinic, or Other Ordered Dose Route [...] test positive for detection of COVID-19 virus 07/0 04/2021 Weakness 11/25/2019 Lactic acidosis 11/25/2019 Spastic [...] Encounters Date Type Specialty Care Team Description 08/20/2022 Home Care Visit Zoie Murrell SN - P RN HOME VISIT RN 08/20/2022 Orders Only Chris Mcmahan <No scans beto ched> MD [place] 08/20/2022 Orders Only Chris Mcmahan Lab MD [place] 08/19/2022 Home Care Visit ProDorys mclaughlin DOCUMENTATION MANAGER - LONG VISIT 08/19/2022 Home Care Visit Zoie Murrell SN - H OME VISIT RN 08/15/2022 Home Care Visit Prow, Dorys A DOCUMENTATION MANAGER - LONG VISIT 08/12/2022 Home Care Visit Zoie Murrell, SN - L LUDMILA VISIT (>90 RN MINUTES) 08/12/2022 Home Care Visit Prow, Dorys A DOCUMENTATION MANAGER - LONG VISIT 08/08/2022 Home Care Visit Prow, Dorys A DOCUMENTATION MANAGER - LONG VISIT 08/05/2022 Home Care Visit Prow, Dorys A DOCUMENTATION MANAGER - LONG VISIT 08/05/2022 Home Care Visit Zoie Murrell, SN - H OME VISIT RN 08/01/2022 Home Care Visit Prow, Odrys A DOCUMENTATION MANAGER - LONG VISIT 07/30/2022 Home Care Visit Zoie Murrell SN - H OME VISIT RN 07/29/2022 Home Care Visit Prow, Dorys A DOCUMENTATION MANAGER - LONG VISIT 07/29/2022 Home Care Visit Quin Lantigua, CARE FLIGHT TEST ENGINEER RDINATION RN 07/29/2022 Home Care Visit Quin Lantigua, CARE FLIGHT TEST ENGINEER RDINATION RN 07/25/2022 Home Care Visit Prow, Dorys A DOCUMENTATION MANAGER - LONG VISIT 07/22/2022 Home Care Visit Prow, Dorys A DOCUMENTATION MANAGER - LONG VISIT 07/22/2022 Home Care Visit Zoie Murrell SN - H OME VISIT RN 07/18/2022 Home Care Visit Prow, Dorys A DOCUMENTATION MANAGER - LONG VISIT 07/15/2022 Home Care Visit Prow, Dorys A DOCUMENTATION MANAGER - LONG VISIT 07/15/2022 Home Care Visit Zoie Murrell, SN - H OME VISIT RN 07/11/2022 Home Care Visit Prow, Dorys A DOCUMENTATION MANAGER - LONG VISIT 07/08/2022 Home Care Visit Prow, Dorys A DOCUMENTATION MANAGER - LONG VISIT 07/08/2022 Home Care Visit Zoie Murrell SN - O ASIS RECERTIFICATION RN 07/07/2022 Office Visit [facility] Implan table Pump 07/07/2022 Hospital Encounter Hina Alcocer, Mul tiple sclerosis, LIVESTOCK RANCH HAND relapsing-remit ting (HC) 07/07/2022 Travel 07/04/2022 Home Care Visit Prow, Dorys A DOCUMENTATION MANAGER - LONG VISIT 07/03/2022 Home Care Visit Nyasende, Zoie M, CARE C OORDINATION RN 07/01/2022 Home Care Visit Prow, Dorys A DOCUMENTATION MANAGER - LONG VISIT 07/01/2022 Home Care Visit Zoie Murrell, SN - H OME VISIT RN 06/27/2022 Home Care Visit Prow, Dorys A DOCUMENTATION MANAGER - LONG VISIT 06/24/2022 Home Care Visit Prow, Dorys A DOCUMENTATION MANAGER - LONG VISIT 06/24/2022 Home Care Visit Zoie Murrell, SN - H OME VISIT RN 06/20/2022 Home Care Visit Prow, Dorys A DOCUMENTATION MANAGER - LONG VISIT 06/17/2022 Home Care Visit Prow, Dorys A DOCUMENTATION MANAGER - LONG VISIT 06/17/2022 Home Care Visit Zoie Murrell, SN - H OME VISIT RN 06/13/2022 Home Care Visit Prow, Dorys A DOCUMENTATION MANAGER - LONG VISIT 06/10/2022 Home Care Visit Prow, Dorys A DOCUMENTATION MANAGER - LONG VISIT 06/10/2022 Home Care Visit Zoie Murrell, SN - H OME VISIT RN 06/06/2022 Home Care Visit Prow, Dorys A DOCUMENTATION MANAGER - MISSE D VISIT 06/03/2022 Home Care Visit Prow, Dorys A DOCUMENTATION MANAGER - LONG VISIT 06/03/2022 Home Care Visit Zoie Murrell, SN - H OME VISIT RN 05/30/2022 Home Care Visit Prow, Dorys A DOCUMENTATION MANAGER - LONG VISIT 05/27/2022 Home Care Visit Prow, Dorys A DOCUMENTATION MANAGER - LONG VISIT 05/27/2022 Home Care Visit Zoie Murrell, SN - H OME VISIT RN 05/23/2022 Home Care Visit Prow, Dorys A DOCUMENTATION MANAGER - MISSE D VISIT 05/22/2022 Refill Jessica Yi Refill Reque st Keara DO (Pramipexole) from Last 3 Months Immunizations Name Administration Dates Next Due COVID-19 vaccine (Curly-J&J) PF, MDV 02/09/2021 Influenza, IIV4 07/27/2016 Pneumococcal Poly,23-Valent (Pneumovax) 05/20/2011 Family History Medical History Relation Name Comments Genetic Other 1 Father had bypas s surgery at approx. 63 years old.?Mother d ied of pneumonia at age 30.?She had MS diagnosed at approx. 22 years old.?Older brother has hyperlipidem ia.?Paternal grandfather of CA at unknown age. Genetic Other 2 Father [...] Sign Reading Time Taken Comments Blood Pressure 120/90 08/20/2022 6:09 PM [facility] Pulse 82 08/20/2022 6:09 PM [facility] Temperature 36.6 ??C (97.9 ??F) 08/20/2022 6:09 PM [facility] Respiratory Rate 20 08/20/2022 6:09 PM [facility] Oxygen Saturation 95% 08/20/2022 6:09 PM [facility] Inhaled Oxygen Concentration - - Weight 88.5 kg (195 lb) 01/07/2022 4:07 PM CDT Height 170.2 cm (5' 7) 01/07/2022 4:07 PM CDT Body Mass Index 30.54 01/07/2022 4:07 PM CDT Plan of Treatment Upcoming Encounters Date Type Specialty Care Team Description 08/26/2022 Home Care Visit Zoie Murrell RN [address] [place] [address] (Best jarrett) 08/26/2022 Home Care Visit Dorys Cordon [address] [place], [place] [phone] (Best jarrett) 09/02/2022 Home Care Visit Zoie Murrell RN [address] [place] [address] (Wo rk) 09/02/2022 Home Care Visit Dorys Cordon [address] [place] [address] (Wo rk) 09/05/2022 Home Care Visit Dorys Cordon [address] [place] [address] (Wo rk) 09/09/2022 Home Care Visit Dorys Cordon [address] [place], [place] [phone] (Wo rk) 09/26/2022 Office Visit Argelia Aguilar, DO [address] [place] [address] (Wo rk) Health Maintenance Due Date Last [...] 05/29/2022 07/27/2016 Medical Devices Implanted Type Area Foreign Exchange Position Clerk Device Shelf Expiration Model / Identifier Date Serial / Lot Pump Synchromed Ii 20ml - [id number] Spine Medtronic 04/24/2012 [id number] / Implanted: Qty: 1 on 12/16/2010 at [facility] [id number] / Explanted: at [facility] (Quantity not on file) Duraseal Spine [id number] / Implanted: Qty: 1 on 03/11/2011 at [facility] / Description: DURASEAL Graft 1x1 Dura Mater Duragen - [id number] INTEGRA N EURO SUPPLIES 01/25/2014 [id number] / Implanted: Qty: 1 on 05/15/2011 at [facility] / [id number] Cnnctr Spinal Indura Sutureless - [id number] N/A : Abdomen Medtronic Pain Therapy 06/14/2017 [id number] / Implanted: Qty: 1 on 01/27/2017 by Frederic Talley MD at [facility] / [id number] Procedures Procedure Name Priority Date/Time Associated Comments Diagnosis URINALYSIS Routine 08/20/2022 7:00 PM Urinary tract Results for this MICROSCOPIC [facility] infection procedure are i n associated with the results indwelling urethral section. catheter, initial encounter (HC) CBC WITH AUTO Routine 08/20/2022 7:00 PM Weakness Results for this DIFFERENTIAL [facility] procedure are i n the results section. UA W/ SEDIMENT EXAM Routine 08/20/2022 7:00 PM Urinary tract R esults for this REFLEXED PER CRITERIA [facility] infection proced ure are in associated with the results indwelling urethral section. catheter, initial encounter (HC) COMP METABOLIC PANEL Routine 08/20/2022 7:00 PM Weakness R esults for this [facility] procedure are i n the results section. CBC WITH AUTO Routine 08/20/2022 7:00 PM Weakness Results for this DIFFERENTIAL [facility] procedure are i n the results section. MR HEAD BRAIN WWO Routine 07/07/2022 1:38 PM Multiple sclerosi s, Results for this CDT relapsing-remitting procedur e are in (HC) the results section. from Last 3 Months Results CBC WITH AUTO DIFFERENTIAL (08/20/2022 7:00 PM SHEEP [facility]ER) athologist Signature WHITE BLOOD 5.4 4.5 - 11.0 08/20/2022 [facility] COUNT thou/cu mm 7:54 PM [facility] RED BLOOD COUNT 5.10 4.30 - 08/20/2022 [facility] 5.90 7:54 PM [facility]/cu [facility] LAB HEMOGLOBIN 15.8 13.5 - 08/20/2022 [facility] 17.5 g/dL 7:54 PM [facility] HEMATOCRIT 47.5 37.0 - 08/20/2022 [facility] 53.0 % 7:54 PM [facility] MCV 93 80 - 100 08/20/2022 [facility] fL 7:54 PM [facility] MCH 31.0 26.0 - 08/20/2022 [facility] 34.0 pg 7:54 PM [facility] MCHC 33.3 32.0 - 08/20/2022 [facility] 36.0 g/dL 7:54 PM [facility] RDW 12.5 11.5 - 08/20/2022 [facility] 15.5 % 7:54 PM [facility] PLATELET COUNT 238 140 - 440 08/20/2022 [facility] thou/cu mm 7:54 PM [facility] MPV 10.3 6.5 - 11.0 08/20/2022 [facility] fL 7:54 PM [facility] % NEUT 64.1 % 08/20/2022 [facility] 7:54 PM [facility] % LYMPH 24.9 % 08/20/2022 [facility] 7:54 PM [facility] % MONO 8.8 % 08/20/2022 [facility] 7:54 PM [facility] % EOS 1.5 % 08/20/2022 [facility] 7:54 PM [facility] % BASO 0.7 % 08/20/2022 [facility] 7:54 PM [facility] % IMMATURE GRAN 0.0 % 08/20/2022 [facility] (METAS,MYELOS,HI 7:54 PM [facility] ABSOLUTE 3.5 1.7 - 7.0 08/20/2022 [facility] NEUTROPHILS thou/cu mm 7:54 PM [facility] ABSOLUTE 1.4 0.9 - 2.9 08/20/2022 [facility] LYMPHOCYTES thou/cu mm 7:54 PM SHEEP [facility] ABSOLUTE 0.5 <0.9 08/20/2022 [facility] MONOCYTES thou/cu mm 7:54 PM [facility] ABSOLUTE 0.1 <0.5 08/20/2022 [facility] EOSINOPHILS thou/cu mm 7:54 PM [facility] ABSOLUTE 0.0 <0.3 08/20/2022 [facility] BASOPHILS thou/cu mm 7:54 PM [facility] ABSOLUTE 0.0 <0.3 08/20/2022 [facility] IMMATURE thou/cu mm 7:54 PM [facility] [place] GRANULOCYTES([facility] I ,MYELOS,PROS) [facility] LAB Specimen Anatomical Collection Method / Collection Time Recei rao Time (Source) Location / Volume Laterality Blood BLOOD SPECIMEN / Non-Lab 08/20/2022 7:00 08/20/20 7:50 Unknown Venipuncture / PM [facility] PM [facility] Unknown Narrative [facility] R [facility] - 08/20/2022 7:54 PM [facility] This procedure was originally ordered at [facility]. Chris Mcmahan MD HEMATOLOGY Performing Organization Address City/State/ZIP Code Phon e Number [address] [address] [facility] LAB (ABNORMAL) URINALYSIS MICROSCOPIC (08/20/2022 7:00 PM [facility]) [facility] Method Time Signature RBC 3-5 (A) 0-2, None 08/20/2022 [facility] Seen /HPF 7:58 PM [facility] WBC >100 (A) 0-2, 3-5, 08/20/2022 [facility] None Seen 7:58 PM [facility] [place] /[facility] BACTERIA Moderate (A) None 08/20/2022 [facility] Seen, 7:58 PM [facility] [place] Rare, Few [facility] Bacteria/ [facility] LAB EPITHELIAL None Seen None 08/20/2022 [facility] CELLS Seen, Few 7:58 PM [facility] [place] Epi/HPF [facility] LAB WHITE CELL Present (A) (none) 08/20/2022 [facility] CLUMPS 7:58 PM [facility] LAB Specimen Anatomical Collection Method Collection Time Receive d Time (Source) Location / / Volume Laterality Urine URINE SPECIMEN / Non-Blood / 08/20/2022 7:00 PM 08/20 7:50 Unknown Unknown [facility] PM [facility] Chris Mcmahan MD URINE Performing Organization Address City/State/ZIP Code Phon e Number [facility] [address] [place] [address] [facility] LAB (ABNORMAL) UA W/ SEDIMENT EXAM REFLEXED PER CRITERIA (08/20/2022 7:00 PM [facility]ER) [facility] Method Time Signature COLOR Yellow Yellow Color 08/20/2022 [facility] 7:57 PM [facility] LAB CLARITY Cloudy (A) Clear 08/20/2022 [facility] Clarity 7:57 PM [facility] LAB SPECIFIC 1.025 1.010, 08/20/2022 [facility] GRAVITY,URINE 1.015, 7:57 PM [facility] UNITED 1.020, 1.025 [facility] LAB PH,URINE 7.0 6.0, 7.0, 08/20/2022 [facility] 8.0, 5.5, 7:57 PM [facility] 6.5, 7.5, [facility] 8.5 [facility] LAB UROBILINOGEN, Normal Normal EU/dl 08/20/2022 [facility] H QUALITATIVE 7:57 PM [facility] LAB PROTEIN, Trace (A) Negative 08/20/2022 [facility] URINE mg/dL 7:57 PM [facility] GLUCOSE, Negative Negative 08/20/2022 [facility] URINE mg/dL 7:57 PM [facility] LAB KETONES,URINE Negative Negative 08/20/2022 [facility] mg/dL 7:57 PM [facility] LAB BILIRUBIN,URI Negative Negative 08/20/2022 [facility] NE 7:57 PM [facility] LAB OCCULT Small (A) Negative 08/20/2022 [facility] BLOOD,URINE 7:57 PM [facility] LAB NITRITE Negative Negative 08/20/2022 [facility] 7:57 PM [facility] LAB LEUKOCYTE Large (A) Negative 08/20/2022 [facility] ESTERASE 7:57 PM [facility] LAB Specimen Anatomical Collection Method Collection Time Receive d Time (Source) Location / / Volume Laterality Urine URINE SPECIMEN / Non-Blood / 08/20/2022 7:00 PM 08/20 7:50 Unknown Unknown [facility] PM [facility] Chris Mcmahan MD URINE Performing Organization Address City/State/ZIP Code Phon e Number [facility] [address] [place] [address] [facility] LAB (ABNORMAL) COMP METABOLIC PANEL (08/20/2022 7:00 PM [facility]) Analysis Performed At Patho logist Time Signature SODIUM 138 135 - 145 08/20/2022 [facility] mmol/L 8:42 PM [facility] LAB POTASSIUM 4.0 3.5 - 5.0 08/20/2022 [facility] mmol/L 8:42 PM [facility] LAB CHLORIDE 101 98 - 110 08/20/2022 [facility] mmol/L 8:42 PM [facility] LAB CO2,TOTAL 27 21 - 31 08/20/2022 [facility] mmol/L 8:42 PM [facility] LAB ANION GAP 10 5 - 18 08/20/2022 [facility] 8:42 PM [facility] LAB GLUCOSE 120 (H) 65 - 100 08/20/2022 [facility] mg/dL 8:42 PM [facility] LAB CALCIUM 9.3 8.5 - 10.5 08/20/2022 [facility] mg/dL 8:42 PM [facility] BUN 9 8 - 25 08/20/2022 [facility] mg/dL 8:42 PM [facility] CREATININE 0.88 0.72 - 08/20/2022 [facility] 1.25 mg/dL 8:42 PM [facility] BUN/CREAT RATIO 10 10 - 20 08/20/2022 [facility] 8:42 PM [facility] LAB ALBUMIN 4.4 3.2 - 4.6 08/20/2022 [facility] g/dL 8:42 PM [facility] LAB PROTEIN,TOTAL 6.4 6.0 - 8.0 08/20/2022 [facility] g/dL 8:42 PM [facility] GLOBULIN 2.0 2.0 - 3.7 08/20/2022 [facility] g/dL 8:42 PM [facility] A/G RATIO 2.2 (H) 1.0 - 2.0 08/20/2022 [facility] 8:42 PM [facility] BILIRUBIN,TOTAL 0.4 0.2 - 1.2 08/20/2022 [facility] mg/dL 8:42 PM [facility] ALK PHOSPHATASE 74 50 - 136 08/20/2022 [facility] IU/L 8:42 PM [facility] ALT (SGPT) 36 8 - 45 08/20/2022 [facility] IU/L 8:42 PM [facility] AST (SGOT) 20 2 - 40 08/20/2022 [facility] IU/L 8:42 PM [facility] LAB eGFR >90 >90 08/20/2022 [facility] mL/min/1.7 8:42 PM [facility] [place] 3m2 [facility] Comment: As of 2021, eGFR is calcu lated by the CKD-EPI creatinine equation without race adjustment. eGFR can be inf luenced by muscle mass, exercise, and diet. The reported eGFR is an estimation only and is only applicable if the renal function is stable. Specimen Anatomical Collection Method / Collection Time Recei rao Time (Source) Location / Volume Laterality Blood BLOOD SPECIMEN / Non-Lab 08/20/2022 7:00 08/20/20 7:50 Unknown Venipuncture / PM [facility] PM [facility] Unknown Chris Mcmahan MD CHEMISTRY Performing Organization Address City/State/ZIP Code Phon e Number [facility] [address] [place] [id number] [facility] MR Brain w/wo Contrast (07/07/2022 1:38 PM [...] enhancing lesions to suggest active demyelination. 3. Bedo-nb-igezqlsm T1 hypointense lesio n load. Mild cerebral and callosal atrophy. Dictated by Dandy Meza MD @ 07/07/20 2:47:11 PM (Electronically Signed) Narrative 07/07/2022 2:47 PM CDT For Patients: ??As a result of the 21st Century Cures Act, medical imaging exams and procedure report s are released immediately into your [facility] medical record. ??You may view this report [...] within the tomasa and right brachium pontis. Pdgj-jh-uokwzyvp T1 hypointense lesion load. No enhancing lesions. Prominence of the ventricles and sulci c ompatible with mild diffuse cerebral volume loss. There is mild atrophy of the corpus callosum. No mass effect or midline shift. No intracranial hemorrhage or pat hologic extra-axial fluid collection. No diffusion restriction to suggest acute infarction. The major arterial flow voids of the [facility] llbase are preserved. The globes are symmetric. The paranasal sinuses are well aerated. Minimal mastoid fluid bilaterally. Procedure Note Dandy Meza MD - 07/07/2022F ormatting of this note might be different from the original. For Patients: As a result of the ntury Cures Act, medical imaging exams and procedure reports are released immediately into your electronic medical record. You may view this report before your referring provider. If you have questions, please contact [facility] care provider. INDICATION: Multiple sclerosis. TECHNIQUE: Multiplanar [...] within the tomasa and right brachium pontis. Vucp-jf-gzngzsta T1 hypointense lesion load. No enhancing lesions. Prominence of the ventricles and sulci c ompatible with mild diffuse cerebral volume loss. There is mild atrophy of the corpus callosum. No mass effect or midline shift. No intracranial hemorrhage or pathologic extra-axial fluid collection. No diffusi on restriction to suggest acute infarction. The major arterial flow voids of the [facility] llbase are preserved. The globes are symmetric. The paranasal sinuses are well aerated. Minimal mastoid fluid bilaterally. IMPRESSION: 1. No significant change compared to the MRI dated 03/12/2021. 2. Stable moderate supratentorial mild i nfratentorial T2 hyperintense white matter lesions, compatible with chronic demyelinating plaques. No enhancing lesions to suggest active demyelination. 3. Eegg-ph-raympjgi T1 hypointense lesio n load. Mild cerebral and callosal atrophy. Dictated by Dandy Meza MD @ 07/07/20 22 2:47:11 PM (Electronically Signed) Hina Ayala Carlyn [employer] HAND MR from Last 3 Months Insurance Payer Benefit Plan / Subscriber ID Effective Phone Address T ype Group Dates MEDICARE PART MEDICARE PART B [id number] 2006-Pres A TTN: CLAIMS B - HB USE HB ONLY ent [address] [place] [address] MEDICARE PART MEDICARE PART A [id number] 2006-Pres A TTN: CLAIMS A - HB USE HB ONLY ent [address] [place] [address] MEDICARE - PB MEDICARE PB [id number] 2006-Pres ATTN: CLAIMS USE ONLY ONLY ent [address] [place] [address] BLUE CROSS BLUE CROSS OF [id number] 2018-Prese [address] [place] [address] MEDICARE PPS HC MEDICARE PPS [id number] 2006-Pres [address] [place] [address] [address] [address] [place] [address] Dejuan Rodriguez Personal/Family Self 1960 [address] ([address]) [address] [place] [address] Advance Directives Latest Code Status on File [...] Discussion: Per Advance Care Plan Care Teams Plastics Worker Relationship Specialty Start Date End Date Teresita Garcia MD PCP - General 05/13/11 [address] [place], [place] [phone] Lorna West RN Spasticity Management Care Registered Nurse 08/05/21 [address] Thomas Coordination- CK[facility] [address] [place] [address] [facility], [facility] [address] [place] [address]
[2022-08-21 17:31] LABS: PCR FLU A Negative PCR FLU A (Negative); PCR FLU B Negative PCR FLU B (Negative); PCR RSV Negative PCR RSV (Negative)
[2022-08-21 17:32] LABS: SARS PCR* Negative SARS-CoV-2 (Negative)
[2022-08-21 17:40] LABS: Appearance Urine Clear (Clear); Bilirubin Urine Negative (Negative); Color Urine Yellow (Yellow); Glucose Urine Negative (Negative); Ketones Urine Negative (Negative)
[2022-08-21 17:41] LABS: Blood Urine Negative (Negative); Leukocyte Esterase Urine 1+ (Negative); Nitrite Urine Negative (Negative); Protein Urine Negative (Negative); RBC Urine 0-2 (0-2); Specific Gravity Urine 1.015 (1.000-1.030); Urobilinogen Urine 0.2 (0.2-1.0); pH Urine 7.5 (5.0-8.5)
--- NOTE | 2022-08-21 18:15 | ED.NURSE ---
dr foss did talk to corry at [facility] [place]. they will take him back.
[2022-08-21] MEDS: predniSONE 20 MG TABLET 60 MG PO (18:44)
--- NOTE | 2022-08-21 19:18 | ED.NURSE ---
ems was called per rohith diaz. did give report to corry at the [facility]. they will be expecting his return. aware that the prednisone will need to be started tomorrow as he had a dose in the ed of 60 mg today. the prednisone from [facility] was filled and will send with yousuf to take as directed.
--- NOTE | 2022-08-21 19:34 | ED.NURSE ---
ems is here. ready to transport back to the [facility]. did empty 600 ml of clear yellow urine.
== END 2022-08-21 19:40 | disposition home or self-care (01) ==
PROVIDERS: Emergency Provider Family Medicine
DX: G35 Multiple sclerosis (principal)
CPT/HCPCS: 71045; 81001; 87502; 87634; 87635; 99284; J7512

== ENCOUNTER 2022-08-21 19:31 | Outpatient (CLI) | payer MEDICARE, BC, SELFPAY ==
--- OUTSIDE RECORDS SUMMARY | 2022-09-04 16:40 | XMS_ITS | Encounter Summary ---
:1960 Author Organization [place] Address [address] [facility] [place] [address] Care Team Providers Name Role Phone Teresita Garcia MD Primary Care Provider Audrey Hickman MD Unavailable [phone] Encounter Details Date Type Department Care Team [...] documented as of this encounter Care Teams Coupling Machine Operator Relationship Specialty Start Date End Date Teresita Garcia MD PCP - General Family Practice 01/22/11 [address] [place], [place] [id number] Audrey Hickman MD Assigned PCP 12/29/21 [address] [place], [place] [id number] documented as of this encounter
--- OUTSIDE RECORDS SUMMARY | 2022-09-04 16:40 | XMS_ITS | Encounter Summary ---
:1960 Author Organization [place] Address [address] [place] [address] Care Team Providers Name Role Phone Teresita Garcia MD Primary Care Provider Audrey Hickman MD Unavailable [phone] Reason for Visit Reason Comments Erroneous encounter-disregard Encounter Details Date Type Department Care Team Description 08/18/2022 Virtual Visit [facility] Sedrick Giron MD No Show [place] [id number] [place] [address] [place], [place] [phone] (Wo rk) Social [...] do you attend episcopalian or Not asked samaritan services? Do you [...] documented as of this encounter Care Teams Plant Cytologist Relationship Specialty Start Date End Date Teresita Garcia MD PCP - General Family Practice 01/22/11 [address] [place], [place] [id number] Audrey Hickman MD Assigned PCP 12/29/21 [address] [place] [address] documented as of this encounter
--- OUTSIDE RECORDS SUMMARY | 2022-09-04 16:40 | XMS_ITS | Encounter Summary ---
:1960 Author Organization [place] Address [address] [facility] [place] [address] Care Team Providers Name Role Phone Teresita Garcia MD Primary Care Provider Audrey Hickman MD Unavailable [phone] Reason for Visit Reason Onset Date Comments Results 01/06/2022 Urine Culture Encounter Details Date Type Department Care Team Description 01/06/2022 Telephone [facility] Katharina Leija Resul ts (Urine Culture) [facility] Emergency Dep t RN [address] [place] [address] Social History Tobacco Use Types Packs/Day Years [...] do you attend mosque or Not asked judaism services? Do you [...] Leija RN - 01/06/2022 1:18 PM CDT [facility] () Emergency Department Lab result notification [Adult-Male] [facility] ED lab result protocol used Urine Culture Reason for call Notify of lab results, assess symptoms, review ED providers recommendations/discharge instructions (if necessary) and advise per ED lab result f/u protocol Lab Result (including Rx patient on, if applicable) Final Urine Culture Report on 01/06/22. [facility] Emergency Dept discharge antibiotic prescribed: Ciprofloxacin (Cipro) 500 mg tablet, 1 tablet (500 mg) by mouth 2 times daily for 7 days. Bacteria #1: >100,000 colonies/mL Pseudomonas aeruginosa is [RESISTANT] to antibiotic Bacteria #2: >100,000 colonies/mL Enterococcus faecalis is [NOT TESTED] to antibiotic Recommendations in treatment per [facility] ED Lab result protocol. Information [...] encounter (H) ED provider Johana Urena MD paper control clerk (Patient???s current Symptoms), include time called. 1:47P - when asked patient states he feels Not so great I guess could be better - reporting 'just fatigue' Genitourinary symptoms: NO - just a lot of sediment this is often baseline per ED report Fever: NO Flank pain: NO Rivera Catheter: YES - functioning well Urologist: MD Sinan - [facility] Fax #: [phone] Attention: RODRIGO Church RN Recommendations/Instructions per [facility] ED lab result protocol 2:00 - patient [...] symptom's. PCP follow-up Questions asked: YES Katharina Lejia RN [facility] Emergency Dept Lab Result RN # [phone] Copy of Lab result Urine Culture Order: [id number] - Reflex for Order [id number] Status: Final result ?? Visible to patient: [...] documented as of this encounter Care Teams Site Supervisor Relationship Specialty Start Date End Date Teresita Garcia MD PCP - General Family Practice 01/22/11 [address] [place], [place] [phone] Audrey Hickman MD Assigned PCP 12/29/21 [address] [place], [place] [phone] documented as of this encounter
--- OUTSIDE RECORDS SUMMARY | 2022-09-04 16:40 | XMS_ITS | Encounter Summary ---
:1960 Author Organization [place] Address [address] [facility] [place] [address] Care Team Providers Name Role Phone Teresita Garcia MD Primary Care Provider Teresita Garcia MD Unavailable Reason for Visit Reason Onset Date Comments Home Care/Hospice 08/14/2021 Encounter Details Date Type Department Care Team Description 08/14/2021 Telephone [facility] Roel Garcia MD Home Care/Hospice [id number] [place] [phone] Social History Tobacco Use Types Packs/Day Years [...] do you attend adventist or Not asked christian services? Do you [...] fax for MD signature. Mary More RN BOSS documented in this encounter Plan of Treatment Not on filedocumented as of this encounter Visit Diagnoses Not on filedocumented in this encounter Additional Health Concerns Assessment Noted Time PHQ-9 Depression Total Score: 6 04/12/2021 1:59 PM CDT documented as of this encounter Care Teams Drop Worker Relationship Specialty Start Date End Date Teresita Garcia MD PCP - General Family Practice 01/22/11 [address] [place], [place] [phone] Teresita Garcia MD Assigned PCP 11/16/16 12/28/21 [address] [place], [place] [phone] documented as of this encounter
--- OUTSIDE RECORDS SUMMARY | 2022-09-04 16:40 | XMS_ITS | Encounter Summary ---
:1960 Author Organization [place] Address [address] [place] [address] Care Team Providers Name Role Phone Teresita Garcia MD Primary Care Provider Teresita Garcia MD Unavailable Encounter Details Date Type Department Care Team Description 10/01/2021 Telephone [facility] Roel Garcia MD [place] [phone] Social History Tobacco Use Types Packs/Day Years [...] do you attend moravian or Not asked roman catholic services? Do [...] 10/01/2021 5:17 PM CST [facility] PT from [facility] calling from [phone]. Requesting orders for lymphedema assessment. They will be faxing orders as well. uZleyma Fierro RN on 10/01/2021 at 5:18 PM CATEGORICAL PRESCHOOL TEACHER documented in this encounter Plan of Treatment Not on filedocumented as of this encounter Visit Diagnoses Not on filedocumented in this encounter Additional Health Concerns Assessment Noted Time PHQ-9 Depression Total Score: 6 04/12/2021 1:59 PM CDT documented as of this encounter Care Teams Inspector Golf Ball Relationship Specialty Start Date End Date Teresita Garcia MD PCP - General Family Practice 01/22/11 [address] [place], [place] [phone] Teresita Garcia MD Assigned PCP 11/16/16 12/28/21 [address] [place] [address] documented as of this encounter
--- OUTSIDE RECORDS SUMMARY | 2022-09-04 16:40 | XMS_ITS | Encounter Summary ---
:1960 Author Organization [place] Address [address] [facility] [place] [address] Care Team Providers Name Role Phone Teresita Garcia MD Primary Care Provider Teresita Garcia MD Unavailable Audrey Hickman MD Unavailable [phone] Reason for Visit Reason Onset Date Comments Call Back 10/01/2021 patient is dealing w josie Franklin in his feet and ankles, had asked about compression so cks if they would be ok for him. Encounter Details Date Type Department Care Team Description 10/01/2021 Telephone [facility] Teresita Garcia MD Call Back (patient is [facility] [id number] [place] [address] [place] [address] [place], [place] his feet and ankles, [place] [address] had asked about [phone] compression socks if [...] do you attend gnosticism or Not asked taoism services? Do you [...] 11:02 AM CST Left detailed message on [employer]'s ([facility]) machine that DME for compression stockings hasbeen approved and signed. Need to ask what should be done with the DME? Picked up, mailed, faxed? Form is in basket at [employer]. Yumiko Camp CMA LEUM LAYER HELPER Telephone Encounter - Teresita Garcia MD - [...] sign it by another provider p cr. LEUM LAYER HELPER Telephone Encounter - Karen Covarrubias RN - 10/02/2021 4:49 PM CST Called [facility] home care nurse, informs: ~not new issue ~now that in chair more lower leg edema worsening ~now lives in [facility] [place] , [place] ~not regular nurse, covering [...] route to inform Sivakumar Covarrubias RN, BSN [facility] LEUM LAYER HELPER Telephone Encounter - Teresita Garcia MD - [...] sign it for patient. Teresita Garcia MD [facility] [phone] LEUM LAYER HELPER Telephone Encounter - Karen Covarrubias RN - 10/02/2021 4:23 PM CST Routed to , see home care note and advise compression socks, please advise, route to inform [facility] sales and in home delivery specialist of plan patient is dealing with edema in his feet and ankles, had asked about compression socks if they would be ok for him. Karen Covarrubias RN, BSWilliam [facility] LEUM LAYER HELPER Telephone Encounter - Hiren Johnson - 10/01/2021 6:06 PM CST Reason for call: Other Patient called regarding (reason for call): call back Additional comments: in regards to compression socks Phone number to reach patient: Other phone number: Sivakumar MONTOYA from [facility] [phone] Best Time: During business hours Can we leave a detailed message on this number? YES Travel screening: Not Applicable LEUM LAYER HELPER documented in this encounter Plan of Treatment Not on filedocumented as of this encounter Visit Diagnoses Diagnosis Qvxx-Njhea-Zdqduuj disease - Primary Juvenile osteochondrosis of hip and pelv is documented in this encounter Additional Health Concerns Infection Onset Date Last Indicated Resolved Time Rule Out C-difficile 09/01/2022 09/01/2022 Assessment Noted Time PHQ-9 Depression Total Score: 6 04/12/2021 1:59 PM CDT documented as of this encounter Care Teams Operations Manager Station Relationship Specialty Start Date End Date Teresita Garcia MD PCP - General Family Practice 01/22/11 [address] [place] [address] Teresita Garcia MD Assigned PCP 11/16/16 12/28/21 [address] [place] [address] Audrey iHckman MD Assigned PCP 12/29/21 [address] [place] [address] documented as of this encounter
--- OUTSIDE RECORDS SUMMARY | 2022-09-04 16:40 | XMS_ITS | Encounter Summary ---
:1960 Author Organization [place] Address [address] [facility] [place] [address] Care Team Providers Name Role Phone Teresita Garcia MD Primary Care Provider Teresita Garcia MD Unavailable Encounter Details Date Type Department Care Team Description 08/14/2021 Medical Correspondence Health [place] [facility], ORDER [facility] Info Mgmt Non-Provider HEALTH/HOSP ICE [facility] [address] [place] [address] Social History Tobacco Use Types [...] do you attend restorationism or Not asked cheondoism services? Do you [...] documented as of this encounter Care Teams Dealer Account Manager Relationship Specialty Start Date End Date Teresita Garcia MD PCP - General Family Practice 01/22/11 [address] [place], [place] [phone] Teresita Garcia MD Assigned PCP 11/16/16 12/28/21 [address] [place], [place] [phone] documented as of this encounter
--- OUTSIDE RECORDS SUMMARY | 2022-09-04 16:40 | XMS_ITS | Encounter Summary ---
:1960 Author Organization [place] Address [facility] [place] [address] Care Team Providers Name Role Phone Teresita Garcia MD Primary Care Provider Teresita Garcia MD Unavailable Reason for Visit Reason Comments Medication Refill Encounter Details Date Type Department Care Team Description 10/19/2021 Refill [facility] Roel Garcia MD Medication Refill [address] [address] [place], [place] [id number] [place] [phone] Social History Tobacco Use Types Packs/Day Years [...] do you attend mandaeism or Not asked buddhism services? Do you [...] add to yesterday's RX. Mary More RN CHEMIST Telephone Encounter - Teresita Garcia MD - 10/22/2021 3:20 PM CST Pt has MS and it is very hard for him to come in for labs. His last creatinine was done on 07/26/2021 and was normal. Please give 1 year supply. CHEMIST Telephone Encounter - Lianet Correa RN - 10/22/2021 1:19 PM CST Routing refill request to provider for review/approval because: Labs not current: Cr Visit is up to date, RN will issue 90 day aimee. Please advise on labs. Lianet Correa RN [facility] -- Triage Nurse CHEMIST documented in this encounter Plan of Treatment Not on filedocumented as of this encounter Visit Diagnoses Diagnosis Osteoporosis, unspecified osteoporosis t ype, unspecified pathological fracture presence documented in this encounter Additional Health Concerns Assessment Noted Time PHQ-9 Depression Total Score: 6 04/12/2021 1:59 PM CDT documented as of this encounter Care Teams Associate Financial Representative Relationship Specialty Start Date End Date Teresita Garcia MD PCP - General Family Practice 01/22/11 [address] [place] [address] Teresita Garcia MD Assigned PCP 11/16/16 12/28/21 [address] [place] [address] documented as of this encounter
--- OUTSIDE RECORDS SUMMARY | 2022-09-04 16:40 | XMS_ITS | Encounter Summary ---
:1960 Author Organization [place] Address [address] [place] [address] Care Team Providers Name Role Phone Teresita Garcia MD Primary Care Provider Teresita Garcia MD Unavailable Reason for Visit Reason Onset Date Comments Home Care/Hospice 08/14/2021 Encounter Details Date Type Department Care Team Description 08/14/2021 Telephone [facility] Roel Garcia MD Home Care/Hospice [id number] [place] [phone] Social History Tobacco Use Types Packs/Day Years [...] fax for MD signature. Mary More RN O HOST documented in this encounter Plan of Treatment Not on filedocumented as of this encounter Visit Diagnoses Not on filedocumented in this encounter Additional Health Concerns Assessment Noted Time PHQ-9 Depression Total Score: 6 04/12/2021 1:59 PM CDT documented as of this encounter Care Teams Appraisal Specialist Relationship Specialty Start Date End Date Teresita Garcia MD PCP - General Family Practice 01/22/11 [address] [place] [address] Teresita Garcia MD Assigned PCP 11/16/16 12/28/21 [address] [place], [place] [phone] documented as of this encounter
--- OUTSIDE RECORDS SUMMARY | 2022-09-04 16:40 | XMS_ITS | Encounter Summary ---
:1960 Author Organization [place] Address [address] [facility] [place] [address] Care Team Providers Name Role Phone Teresita Garcia MD Primary Care Provider Audrey Hickman MD Unavailable Reason for Visit Reason Comments Diarrhea Encounter Details Date Type Department Care Team Description 08/28/2022 Virtual Visit [facility] Teresita Garcia MD Screening for hyperlipidemia (Primary Dx ); [facility] [place] [id number] [place] [address] MS (multiple sclerosis) (H); [address] [facility], Major depressive disorder, s emilie episode, mild (H); [facility] [address] Diarrhea, unspecified type; [id number] Lower abdominal pain, unspec ified Social History Tobacco Use Types Packs/Day Years [...] do you attend mandaeism or Not asked yazidi services? Do you [...] documented as of this encounter Progress Notes Teresita Garcia MD - 08/28/2022 10:30 AM CST Dejuan is a 61 year old who is being evaluated via a billable video visit. How would you like to obtain your AVS? [employer] Text to cell phone: [phone] Will anyone else be joining your video visit? No Assessment & Plan Screening for hyperlipidemia - Lipid panel reflex to direct LDL Non-fasting; Future MS (multiple sclerosis) (H) Worsening, pt has significant muscle weakness, and he uses services for almost all his ADL. Major depressive disorder, single episode, mild (H) Related to the MS, not on any medications. Diarrhea, unspecified type Unsure of etiology, this can be infectious, (C diff is suspicious due to chronic use of abx), but itcan be related to stool impaction , although that was ruled out during his latest visit, but this also can recur. Will check below labs, if all normal, then I think stool softener like milirlax maybe indicated to help with stool impaction. - Ova and Parasite Exam Routine; Future - Enteric Bacteria and Virus Panel by MECHE Stool; Future - C. difficile Toxin B PCR with reflex to C. difficile Antigen and Toxins A/B EIA; Future - Fecal Lactoferrin; Future Lower abdominal pain, unspecified - Enteric Bacteria and Virus Panel by MECHE Stool; Future No follow-ups on file. Teresita Garcia MD [facility] Dejuan is a 61 year old, presenting for the following health issues: Diarrhea HPI Diarrhea Onset/Duration: 1.5 month Description: Consistency of stool: watery and runny Blood in stool: No Number of loose stools past 24 hours: 2 Progression of Symptoms: same Accompanying signs and symptoms: Fever: No Nausea/Vomiting: No Abdominal pain: No Weight loss: No Episodes of constipation: No History Ill contacts: No Recent use of antibiotics: YES Recent travels: No Recent medication-new or changes(Rx or OTC): No Precipitating or alleviating factors: None Therapies tried and outcome: Pt has been waking up with diarrhea even in the morning, pt used to have problem with constipation in the past, he notices gurgling sensation in the abdomen, then he gets soft or watery diarrhea, he isgoing about every 5 days to the bathroom. Pt went to urgent care recently (3 to 4 days ago) and according to patient he had rectal exam and was not found to have any stool impaction, and had Xray that showed moderate amount of stool. Review of Systems Objective Vitals: No vitals were obtained today due to virtual visit. Physical Exam GENERAL: Healthy, alert and no distress NEURO: hard to use the phone by himself. PSYCH: Mentation appears normal, affect normal/bright, judgement and insight intact, normal speech and appearance well-groomed. Video-Visit Details Video Start Time: 1:50. Type of service: Video Visit Video End Time:2:05. Originating Location (pt. Location): Home Distant Location (provider location): On-site Platform used for Video Visit: Ty ESALE MANAGER documented in this encounter Plan of Treatment Scheduled Orders Name Type Priority Associated Diagnoses Order S chedule Lipid panel reflex to Lab Routine Screening for Expec hanna: direct LDL hyperlipidemia 08/28/2022 Non-fasting (Approximate), Expires: 08/28/2023 Ova and Parasite Exam Microbiology Routine Diarrhea, unspecifi ed Expected: Routine type 08/28/2022 (Approximate), Expires: 08/28/2023 Enteric Bacteria and Microbiology Routine Diarrhea, unspecifie d Expected: Virus Panel by MECHE type 08/28/2022 Stool Lower abdominal pain, (Appro ximate), unspecified Expires: 08/28/2023 C. difficile Toxin B Microbiology Routine Diarrhea, unspecifie d Expected: PCR with reflex to C. type 2021 difficile Antigen and (Appro ximate), Toxins A/B EIA Expires: 09/27/2022 Fecal Lactoferrin Lab Routine Diarrhea, unspecified E xpected: type 08/28/2022 (Approximate), Expires: 08/28/2023 documented as of this encounter Visit Diagnoses Diagnosis Screening for hyperlipidemia - Primary Screening for lipoid disorders MS (multiple sclerosis) (H) Multiple sclerosis Major depressive disorder, single episod e, mild (H) Major depressive disorder, single episod e, mild Diarrhea, unspecified type Lower abdominal pain, unspecified documented in this encounter Additional Health Concerns Assessment Noted Time PHQ-9 Depression Total Score: 6 04/12/2021 1:59 PM CDT documented as of this encounter Care Teams Lieutenant General Relationship Specialty Start Date End Date Teresita Garcia MD PCP - General Family Practice 01/22/11 [address] [place] [address] Audrey Hickman MD Assigned PCP 12/29/21 [address] [place] [address] documented as of this encounter
--- OUTSIDE RECORDS SUMMARY | 2022-09-04 16:40 | XMS_ITS | Clinical Summary ---
:1960 Author Organization [place] Address [address] [facility] [place] [address] Care Team Providers Name Role Phone Teresita Garcia MD Primary Care Provider Audrey Hickman MD Unavailable [phone] Allergies Active Allergy Reactions Severity Noted Date Comments Hydromorphone Nausea and Vomiting 09/15/2014 Pollen Extract 01/22/2011 Medications Medication Sig Dispensed Refills Start Date End Date Status Docusate Sodium 0 Acti ve (COLACE PO) Calcium Take 1 tablet by 0 06/08/2017 Ac tive Carb-Cholecalcifer mouth 2 times ol 600-800 MG-UNIT daily TABS polyethylene Take 17 g by 0 [...] UPRIGHT FOR 30 pathological MINUTES fracture presence carBAMazepine Take 200 mg by 0 08/14/2022 Active (TEGRETOL) 200 MG mouth tablet alendronate TAKE ONE TABLET 12 tablet 2 [...] automated process. Provider to review and confirm.) Ccuc-Pgmau-Kvrjmpe disease 05/14/2011 Atopic rhinitis 05/14/2011 Overview: (Problem [...] Encounters Date Type Specialty Care Team Description 08/28/2022 Virtual Visit Family Practice Teresita Garcia MD Screening for hyperlipidemia (Primary Dx); MS (multiple sc lerosis) (H); Major depressiv e disorder, single episode, mild (H); Diarrhea, unspe cified type; Lower abdominal pain, unspecified 08/28/2022 Telephone [facility] Practice Teresita Garcia MD Diarrhea 08/18/2022 Virtual Visit [facility] Sedrick Giron MD No Sh ow 08/13/2022 Refill Family Practice Teresita Garcia MD Medication Refill 07/24/2022 Virtual Visit [facility] Vick, TMJ (tem poromandibular Audrey Gibbs MD joint syndro nc) (Primary Dx) 07/24/2022 Telephone [facility] Vick Nurse Adv ice Line Audrey Gibbs [...] do you attend protestant or Not asked islam services? Do you [...] Health Maintenance Due Date Last Done Comments CT COLONOGRAPHY 1960 FIT-DNA (Cologuard) 1960 FIT [...] 07/29/2013, 06/01/2013, 06/01/2013 COLORECTAL CANCER SCREENING 07/29/2023 ANNUAL REVIEW OF HM ORDERS 08/28/2023 08/28/2022 ADVANCE CARE PLANNING 06/26/2025 06/26/2020, 06/26/2020 DTAP/TDAP/TD [...] this topic Medical Devices Implanted Type Area Cake Press Operator Helper Device Shelf Model / Identifier Expiration Serial / Date Lot Left Hip Metallic Left: Replacement Hardware/Anc Hip hor Additional Health Concerns Infection Onset Date Last Indicated Rule Out C-difficile 09/01/2022 09/01/2022 Insurance Payer Benefit Plan / Subscriber ID Effective Phone Address T ype Group Dates MEDICARE MEDICARE [id number] 2018-Prese [phone] ATTN ANTHONY [place] Medicare nt 40 [address] [place] [address] BCBS BCBS OF [place] [id number] 2018-Prese [phone] [address] [id number] Indemnity nt 00 [place] [address] Dejuan Rodriguez Personal/Family Self [address] ([place] [address] Care Teams Certified Surgical Assistant Relationship Specialty Start Date End Date Teresita Garcia MD PCP - General Family Practice 01/22/11 [address] [place], [place] [id number] Audrey Hickman MD Assigned PCP 12/29/21 [address] [place], [place] [id number]
--- OUTSIDE RECORDS SUMMARY | 2022-09-04 16:40 | XMS_ITS | Encounter Summary ---
:1960 Author Organization [place] Address [address] [place] [address] Care Team Providers Name Role Phone Teresita Garcia MD Primary Care Provider Audrey Hickman MD Unavailable [phone] Reason for Visit Reason Onset Date Comments Nurse Advice Line 07/24/2022 Encounter Details Date Type Department Care Team Description 07/24/[address] [facility] Audrey Hickman Nurse Advice Line [place] [address] [address] [phone] (Wo rk) Social History Tobacco Use Types [...] do you attend congregational or Not asked methodist services? Do you [...] 07/24/2022 10:47 AM CDT Called pt per [facility], has appointment today for jaw pain [...] ordered A-(assessment): jaw pain R-(recommendations): routed to [facility], pt looking for possibility of jaw massage at home, now pain keeps him up at night and interferes with daily routines and needs to do something, pt wonders about TMJ referral and if they do virtual visits due to his condition, was hoping to sort things out at virtualvisit today Routed to [facility] Karen Covarrubias RN, BSN [facility] documented in this encounter Plan of Treatment Not on filedocumented as of this encounter Visit Diagnoses Not on filedocumented in this encounter Additional Health Concerns Assessment Noted Time PHQ-9 Depression Total Score: 6 04/12/2021 1:59 PM CDT documented as of this encounter Care Teams Coal Briquette Machine Operator Relationship Specialty Start Date End Date Teresita Garcia MD PCP - General Family Practice 01/22/11 [address] [place], [place] [id number] Audrey Hickman MD Assigned PCP 12/29/21 [address] [place] [address] documented as of this encounter
--- OUTSIDE RECORDS SUMMARY | 2022-09-04 16:40 | XMS_ITS | Encounter Summary ---
:1960 Author Organization [place] Address [facility] [place] [address] Care Team Providers Name Role Phone Teresita Garcia MD Primary Care Provider Teresita Garcia MD Unavailable Reason for Visit Reason Onset Date Comments Forms 08/23/2021 Encounter Details Date Type Department Care Team Description 08/23/[address] [facility] Roel Garcia MD Forms [place] [id number] [place] [address] [place] [address] [place] [address] [phone] Social History Tobacco Use Types Packs/Day Years [...] you attend latter day or Not asked yazidi services? Do you [...] Form completed and faxed, 08/28/2021 Jackie Brito/AWILDA E MAN Telephone Encounter - Vance Desai RN - 08/23/2021 1:46 PM CST Received call from [facility] stating some forms were missing from faxed forms 08/15/21. [facility] to re-fax forms to [facility]. Routing to [facility] to review. Vance Person RN E MAN documented in this encounter Plan of Treatment Not on filedocumented as of this encounter Visit Diagnoses Not on filedocumented in this encounter Additional Health Concerns Assessment Noted Time PHQ-9 Depression Total Score: 6 04/12/2021 1:59 PM CDT documented as of this encounter Care Teams Or Director Relationship Specialty Start Date End Date Teresita Garcia MD PCP - General Family Practice 01/22/11 [address] [place] [address] Teresita Garcia MD Assigned PCP 11/16/16 12/28/21 [address] [place] [address] documented as of this encounter
--- OUTSIDE RECORDS SUMMARY | 2022-09-04 16:40 | XMS_ITS | Encounter Summary ---
:1960 Author Organization [place] Address [address] [facility] [place] [address] Care Team Providers Name Role Phone Teresita Garcia MD Primary Care Provider Audrey Hickman MD Unavailable [phone] Encounter Details Date Type Department Care Team Description 02/04/2022 Telephone [facility] Roel Garcia MD [address] [address] [place] [address] [phone] Social History Tobacco Use Types Packs/Day Years [...] do you attend synagogue or Not asked anabaptism services? Do you [...] 02/04/2022 3:23 PM CDT Fax received from [facility] for plan of care . This will be placed in PCP in box . Sophie Swain Sugar Reprocess Operator Head documented in this encounter Plan of Treatment Not on filedocumented as of this encounter Visit Diagnoses Not on filedocumented in this encounter Additional Health Concerns Assessment Noted Time PHQ-9 Depression Total Score: 6 04/12/2021 1:59 PM CDT documented as of this encounter Care Teams Cd Reactor Operator Head Relationship Specialty Start Date End Date Teresita Garcia MD PCP - General Family Practice 01/22/11 [address] [place] [address] Audrey Hickman MD Assigned PCP 12/29/21 [address] [place] [address] documented as of this encounter
--- OUTSIDE RECORDS SUMMARY | 2022-09-04 16:40 | XMS_ITS | Encounter Summary ---
:1960 Author Organization [place] Address [address] [facility] [place] [address] Care Team Providers Name Role Phone Teresita Garcia MD Primary Care Provider Teresita Garcia MD Unavailable Reason for Visit Reason Onset Date Comments [facility] 10/07/2021 Encounter Details Date Type Department Care Team Description 10/07/2021 Telephone [facility] Teresita Garcia MD [facility] [id number] [place] [id number] Social History Tobacco Use Types Packs/Day [...] do you attend mu-ism or Not asked scientologist services? Do you [...] 10/08/2021 2:55 PM CST DME faxed to [facility] in [place]. Yumiko Camp CMA TAL PRINT OPERATOR Telephone Encounter - Coty Fleming RN - 10/07/2021 5:07 PM CST Routing to to inform. NORM Campos, RN [facility] TAL PRINT OPERATOR Telephone Encounter - Mi Crowe RN - 10/07/2021 4:39 PM CST Priority nurse call received from JAN Clark with [facility]: 1. Returning call about compression stockings for patient 2. Will be out to see patient on 10/08/21 and will take measurements, then call PCP clinic to relay those measurements 3. DME order can be sent to whichever medical supply store [facility] uses Informed Eduardo a message will be sent to patient's PCP care team at [facility] [place]. Eduardo verbalized understanding and in agreement with plan. Eduardo stated his voicemail is confidential. Thank you! NORM Escobedo, RN [facility] TAL PRINT OPERATOR documented in this encounter Plan of Treatment Not on filedocumented as of this encounter Visit Diagnoses Not on filedocumented in this encounter Additional Health Concerns Assessment Noted Time PHQ-9 Depression Total Score: 6 04/12/2021 1:59 PM CDT documented as of this encounter Care Teams Film Processing Shift Supervisor Relationship Specialty Start Date End Date Teresita Garcia MD PCP - General Family Practice 01/22/11 [address] [place] [address] Teresita Garcia MD Assigned PCP 11/16/16 12/28/21 [address] [place] [address] documented as of this encounter
--- OUTSIDE RECORDS SUMMARY | 2022-09-04 16:40 | XMS_ITS | Encounter Summary ---
:1960 Author Organization [place] Address [address] [facility] [place] [address] Care Team Providers Name Role Phone Teresita Garcia MD Primary Care Provider Audrey Hickman MD Unavailable [phone] Reason for Visit Reason Onset Date Comments UTI 01/07/2022 Encounter Details Date Type Department Care Team Description 01/07/2022 Telephone [facility] Roel Garcia MD UTI [place] [id number] [place] [address] [place], [place] [address] [place] [phone] Social History Tobacco Use Types Packs/Day Years [...] do you attend sabianism or Not asked temple services? Do you [...] as of this encounter Care Teams Client Customer Manager Relationship Specialty Start Date End Date Teresita Garcia MD PCP - General Family Practice 01/22/11 [address] [place] [address] Audrey Hickman MD Assigned PCP 12/29/21 [address] [place] [address] documented as of this encounter
--- OUTSIDE RECORDS SUMMARY | 2022-09-04 16:40 | XMS_ITS | Encounter Summary ---
:1960 Author Organization [place] Address [facility] [place] [address] Care Team Providers Name Role Phone Teresita Garcia MD Primary Care Provider Audrey Hickman MD Unavailable [phone] Reason for Visit Reason Comments Medication Refill Encounter Details Date Type Department Care Team Description 05/13/2022 Refill [facility] Roel Garcia MD Medication Refill [id number] [place] [address] [place], [place] [phone] Social History Tobacco Use Types Packs/Day Years [...] do you attend sikh or Not asked episcopalian services? Do you [...] office visit. Cindy Bonilla RN, BSN, PHN [facility] documented in this encounter Plan of Treatment Not on filedocumented as of this encounter Visit Diagnoses Diagnosis Seborrheic dermatitis of scalp Other seborrheic dermatitis documented in this encounter Additional Health Concerns Assessment Noted Time PHQ-9 Depression Total Score: 6 04/12/2021 1:59 PM CDT documented as of this encounter Care Teams Information Systems Director Relationship Specialty Start Date End Date Teresita Garcia MD PCP - General Family Practice 01/22/11 [address] [place], [place] [id number] Audrey Hickman MD Assigned PCP 12/29/21 [address] [place], [place] [id number] documented as of this encounter
--- OUTSIDE RECORDS SUMMARY | 2022-09-04 16:40 | XMS_ITS | Encounter Summary ---
:1960 Author Organization [place] Address [address] [facility] [place] [address] Care Team Providers Name Role Phone Teresita Garcia MD Primary Care Provider Audrey Hickman MD Unavailable [phone] Reason for Visit Reason Comments Catheter Problem Encounter Details Date Type Department Care Team Description 01/02/[address] [facility] Johana Urena, Leon sridevi cystitis without hematuria; [facility] Emergency Dep t Obstruction of Rivera catheter, initial e ncounter (H); [facility] Diarrhea, unspecified type; [place], [place] Lower abdominal pain, unspecified [id number] [address] [facility] [phone] [place], [place] [address] (Wo rk) Social History [...] mouth 0 06/08/2017 Carb-Cholecalciferol 2 times daily 600-800 MG-UNIT TABS Docusate Sodium (COLACE 0 [...] Miralax Mirapex Ocrelizumab Past Medical History: Depression Bfuv-Mwadx-Yocnfkf disease Juvenile osteochondrosis of hip and pelvis [...] Bilirubin Urine Negative Ketones Urine Negative Specific [place] Urine 1.010 Blood Urine Moderate (*) pH [...] statements to me. Johana Urena MD 01/02/22 7833 Johana Urena MD 01/02/22 9163 documented in this encounter Plan of Treatment Scheduled Orders Name Type Priority Associated Diagnoses Order S chedule Ova and Parasite Exam Microbiology STAT Diarrhea, unspecifi ed 1 Occurrences Routine type starting 2021 until 2 Enteric Bacteria and Microbiology STAT Diarrhea, unspecifie d 1 Occurrences Virus Panel by MECHE type starting 09/01/2022 Stool Lower abdominal pain, until 09/01/2022 unspecified C. difficile Toxin B Microbiology STAT Diarrhea, unspecifie d 1 Occurrences PCR with reflex to C. type starti ng 09/01/2022 difficile Antigen and until 09/01/2022 Toxins A/B EIA Fecal Lactoferrin Lab STAT Diarrhea, unspecified 1 Occurrences type starting 2021 until 2 documented as of this encounter Procedures Procedure [...] (ABNORMAL) Urine Culture (01/02/2022 2:46 PM CDT) [facility] gist Method Time Signature Culture >100,000 CFU/mL [...] Susceptibility testing requeste d by Donte Leija [phone] for [facility] on E. Faecalis 01.06.2022 @ [address] [place] [address] Johana Urena MD LAB - MICRO GENERAL ORDERABL ES Performing Organization Address City/State/ZIP Code Phon e Number [facility] [place] [address] Diag. Lab [address] [facility], Room D297 (ABNORMAL) UA with Microscopic reflex to Culture (01/02/2022 2:46 PM CDT) [facility] Method Time Signature Color Urine Yellow Colorless, 01/02/2022 [facility] Straw, 3:25 PM CDT Light Yellow, Yellow Appearance Urine Slightly Clear 01/02/2022 [facility] Y Cloudy (A) 3:25 PM CDT Glucose Urine Negative Negative 01/02/2022 [facility] mg/dL 3:25 PM CDT Bilirubin Urine Negative Negative 01/02/2022 [facility] 3:25 PM CDT Ketones Urine Negative Negative 01/02/2022 [facility] mg/dL 3:25 PM CDT Specific [place] 1.010 1.003 - 01/02/2022 [facility] Y Urine 1.035 3:25 PM CDT Blood Urine Moderate Negative 01/02/2022 LABORATORY (A) 3:25 PM CDT pH Urine 7.5 (H) 5.0 - 7.0 01/02/2022 [facility] 3:25 PM CDT Protein Albumin 30 (A) Negative 01/02/2022 [facility] Urine mg/dL 3:25 PM CDT Urobilinogen [...] RBC Urine 52 (H) <=2 /HPF 01/02/2022 [facility] 3:25 PM CDT WBC Urine >182 [...] Address City/State/ZIP [place] [address] Care Lab [address] [facility] (1st floor, no room number) documented in this encounter Visit Diagnoses Diagnosis Acute cystitis without hematuria Acute cystitis Obstruction of Rivera catheter, initial e ncounter (H) Diarrhea, unspecified type Lower abdominal pain, unspecified documented in this encounter Administered Medications Inactive [...] documented as of this encounter Care Teams Seed Service Advisor Relationship Specialty Start Date End Date Teresita Garcia MD PCP - General Family Practice 01/22/11 [address] [place] [address] Audrey Hickman MD Assigned PCP 12/29/21 [address] [place], [place] [id number] documented as of this encounter
--- OUTSIDE RECORDS SUMMARY | 2022-09-04 16:40 | XMS_ITS | Encounter Summary ---
:1960 Author Organization [place] Address [address] [facility] [place] [address] Care Team Providers Name Role Phone Teresita Garcia MD Primary Care Provider Teresita Garcia MD Unavailable Reason for Visit Reason Onset Date Comments Forms 12/05/2021 Plan of Care Encounter Details Date Type Department Care Team Description 12/05/2021 Telephone [facility] Roel Garcia MD Forms (Plan of Care) [id number] [place] [address] [phone] Social History Tobacco Use Types Packs/Day Years [...] do you attend sabianist or Not asked evangelical services? Do you [...] Form completed and faxed, 12/05/2021 Jackie Brito/AWILDA CE CLERK ROUTINE Telephone Encounter - Rosy Brito - 12/05/2021 10:19 AM CST Received 7 page fax for Plan of Care for Dr Garcia to complete. Form in the in- basket at AA's desk. CE CLERK ROUTINE documented in this encounter Plan of Treatment Not on filedocumented as of this encounter Visit Diagnoses Not on filedocumented in this encounter Additional Health Concerns Assessment Noted Time PHQ-9 Depression Total Score: 6 04/12/2021 1:59 PM CDT documented as of this encounter Care Teams Reactor Fueling Supervisor Relationship Specialty Start Date End Date Teresita Garcia MD PCP - General Family Practice 01/22/11 [address] [place] [address] Teresita Garcia MD Assigned PCP 11/16/16 12/28/21 [address] [place] [address] documented as of this encounter
--- OUTSIDE RECORDS SUMMARY | 2022-09-04 16:40 | XMS_ITS | Encounter Summary ---
:1960 Author Organization [place] Address [address] [facility] [place] [address] Care Team Providers Name Role Phone Teresita Garcia MD Primary Care Provider Audrey Hickman MD Unavailable [phone] Reason for Visit Reason Onset Date Comments Diarrhea 08/28/2022 Encounter Details Date Type Department Care Team Description 08/28/2022 Telephone [facility] Roel Garcia MD Diarrhea [place] [id number] [place] [address] [place] [address] [place], [place] [address] [phone] Social History Tobacco Use Types Packs/Day Years [...] do you attend protestant or Not asked sikhism services? Do you [...] this encounter Miscellaneous Notes Telephone Encounter - Chan Choi RN - 08/29/2022 1:47 PM CST JAN WEAVER spoke to patient, discussed that the stool testing supplies will need to be picked up at the lab and then returned after completed Patient is not certain who he can get to obtain the lab supplies but will look into this If any questions patient is to return call to Chioma Carrington Nurse, MEG (Patient Advocate Liason) [facility] [phone] EAR STATION OPERATOR Telephone Encounter - Chan Choi RN - 08/29/2022 10:25 AM CST Message #1 left for patient to return call to this JAN WEAVER - please transfer if available Direct number left for this JAN WEAVER on message for return call Chioma Bautista Nurse MEG (patient advocate liaison) [facility] [phone] EAR STATION OPERATOR Telephone Encounter - Teresita Garcia MD - 08/29/2022 10:04 AM CST Robb Rios, let's call him as we discussed. Thank you very much. EAR STATION OPERATOR Telephone Encounter - Chan Choi RN - 08/29/2022 9:28 AM CST Let me know when you are ready to huddle Chioma Bautista Nurse, MEG (Patient Advocate Liason) [facility] [phone] EAR STATION OPERATOR Telephone Encounter - Teresita Garcia MD - 08/28/2022 3:46 PM CST Let's huddle tomorrow : ) EAR STATION OPERATOR Telephone Encounter - Chan Choi RN - 08/28/2022 3:[address] Garcia What exactly are you asking? We do not collect the stool samples in clinic If patient is unable to collect will need to have family/staff/home care assist to collect samples Family/staff can bulk picker items from the lab, has to be collected at home and returned to clinic lab Chan Choi Registered Nurse [facility] EAR STATION OPERATOR Telephone Encounter - Teresita Garcia MD - 08/28/2022 3:10 PM CST Hi chan, how can we schedule an appointment for his stool tests? Teresita Garcia MD [facility] [phone] EAR STATION OPERATOR documented in this encounter Plan of Treatment Not on filedocumented as of this encounter Visit Diagnoses Not on filedocumented in this encounter Additional Health Concerns Assessment Noted Time PHQ-9 Depression Total Score: 6 04/12/2021 1:59 PM CDT documented as of this encounter Care Teams Mixing House Operator Relationship Specialty Start Date End Date Teresita Garcia MD PCP - General Family Practice 01/22/11 [address] [place], [place] [id number] Audrey Hickman MD Assigned PCP 12/29/21 [address] [place], [place] [id number] documented as of this encounter
--- OUTSIDE RECORDS SUMMARY | 2022-09-04 16:40 | XMS_ITS | Encounter Summary ---
:1960 Author Organization [place] Address [facility] [place] [address] Care Team Providers Name Role Phone Teresita Garcia MD Primary Care Provider Audrey Hickman MD Unavailable Reason for Visit Reason Comments Medication Refill Encounter Details Date Type Department Care Team Description 08/13/2022 Refill [facility] Roel Garcia MD Medication Refill [id number] [place] [address] [place], [place] [address] 24-[address]283 [phone] Social History Tobacco Use Types Packs/Day Years [...] do you attend druze or Not asked druze services? Do you [...] have plan going forward. Mary More RN ATCH MANAGER Telephone Encounter - Karen Covarrubias RN - 08/26/2022 11:22 AM CST Called pt, confirmed Dr Garcia is PCP, pt does not want to change PCP, discussed below, pt will ask home care nurse that is coming today if knows about provider team that comes to residence, agrees to explore this option Karen Covarrubias RN, BSN [facility] ATCH MANAGER Telephone Encounter - Marjorie Laird RN - 08/19/2022 11:28 AM CST Per Audrey Hickman MD: Patient seen recently virtually for presumed TMJ. I would recommend establishing care with providerteam that comes to his residence to avoid fragmented care as unable to come in. Left message on machine to call back any triage nurse to relay message. Marjorie Laird RN ATCH MANAGER Telephone Encounter - Teresita Garcia MD - 08/13/2022 4:46 PM CST Audrey, I wonder if you're seeing the patient from now on. ATCH MANAGER Telephone Encounter - Blanca Choi RN - 08/13/2022 4:02 PM CST Routing refill request to provider for review/approval because: Dexa on file within past 2 years Normal serum creatinine on file within past 12 months Creatinine Date Value Ref Range Status 11/25/2019 0.95 0.72 - 1.25 mg/dL Final Last Dexa 04/04/2020 Blanca Choi, Registered Nurse [facility] ATCH MANAGER documented in this encounter Plan of Treatment Not on filedocumented as of this encounter Visit Diagnoses Diagnosis Osteoporosis, unspecified osteoporosis t ype, unspecified pathological fracture presence documented in this encounter Additional Health Concerns Assessment Noted Time PHQ-9 Depression Total Score: 6 04/12/2021 1:59 PM CDT documented as of this encounter Care Teams Deputy Director Of Nursing Relationship Specialty Start Date End Date Teresita Garcia MD PCP - General Family Practice 01/22/11 [address] [place], [place] [id number] Audrey Hickman MD Assigned PCP 12/29/21 [address] [place], [place] [phone] documented as of this encounter
--- OUTSIDE RECORDS SUMMARY | 2022-09-04 16:40 | XMS_ITS | Encounter Summary ---
:1960 Author Organization [place] Address [address] [facility] [place] [address] Care Team Providers Name Role Phone Teresita Garcia MD Primary Care Provider Audrey Hickman MD Unavailable [phone] Reason for Referral Home Health Therapies & Aides (Routine: Next available opening) - Referral NOT Required Specialty Diagnoses / Procedures Referred By Contact Refer red To Contact Diagnoses TMJ (temporomandibular joint syndrome) Audrey Hickman [facility] MD [facility] [address] 427 [phone] Referral ID Status Reason Start Date Expiration Date Visits V isits Requested Authorized [id number] Referral NOT 07/24/2022 07/24/2023 1 1 Required Reason for Visit Reason Comments Jaw Pain right Encounter Details Date Type Department Care Team Description 07/24/2022 Virtual Visit [facility] TMJ (temporomandibular [facility] [place] Audrey Gibbs MD joint syndrome) [id number] [place] [address] (Primary Dx) [place] [address] [phone] Social History Tobacco Use Types Packs/Day Years [...] do you attend gnosticist or Not asked evangelical services? Do you [...] be sent through Care Everywhere. Syndrome, TMJ (Irish)documented in this encounter Progress Notes Audrey Hickman MD - 07/24/2022 4:00 PM CDT Dejuan is a 61 year old who is being evaluated via a billable video visit. How would you like to obtain your AVS? MyChart If the video visit is dropped, the invitation should be resent by: Text to cell phone: [phone] Will anyone else be joining your video [...] No follow-ups on file. Audrey Hickman MD [facility] Subjective Dejuan is a 61 year old, presenting for the following health issues: Jaw Pain (right) HPI Concern - right jaw pain Onset: about 10 years ago Description: sharp pain on the right jaw Intensity: severe Progression of Symptoms: same and intermittent Accompanying Signs & Symptoms: none Therapies tried and outcome: Physical therapy Per patient he was seen at [facility] [place] [facility] and was diagnosed [...] Name Type Priority Associated Diagnoses Order S [facility] Home Care Referral Referral Routine: Next TMJ Ordered: available opening (temporomandibular 06/29 joint syndrome) documented as of this encounter Visit Diagnoses Diagnosis TMJ (temporomandibular joint syndrome) - Primary Temporomandibular joint disorders, unspe cified documented in this encounter Additional Health Concerns Assessment Noted Time PHQ-9 Depression Total Score: 6 04/12/2021 1:59 PM CDT documented as of this encounter Care Teams Take Away Man Relationship Specialty Start Date End Date Teresita Garcia MD PCP - General Family Practice 01/22/11 [address] [place], [place] [phone] Audrey Hickman MD Assigned PCP 12/29/21 [address] [facility], [place] [id number] documented as of this encounter
--- OUTSIDE RECORDS SUMMARY | 2022-09-04 16:40 | XMS_ITS | Encounter Summary ---
:1960 Author Organization [place] Address [address] [facility] [place] [address] Care Team Providers Name Role Phone Teresita Garcia MD Primary Care Provider Teresita Garcia MD Unavailable Reason for Visit Reason Onset Date Comments Orders 08/15/2021 [facility] Encounter Details Date Type Department Care Team Description 08/15/2021 Telephone [facility] Teresita Garcia MD Orders ([facility] [place] [id number] [place] [address]) [id number] [place] [phone] Social History Tobacco Use Types [...] you attend oriental orthodox or Not asked roman catholic services? Do [...] Form completed and faxed, 08/15/2021 Jackie Brito/TC B2B SALES EXECUTIVE Telephone Encounter - Rosy Brito - 08/15/2021 1:45 PM CST Form placed at AA's desk, 08/15/2021 Jackie Brito/TC B2B SALES EXECUTIVE Telephone Encounter - Malka Pang - 08/15/2021 12:59 PM CST Reason for Call: Request for an order or referral: Order or referral being requested: Signature needed Date needed: as soon as possible Has the patient been seen by the PCP for this problem? YES Additional comments: Signature needed for other orders being faxed by [facility] for ongoing SN visit for ongoing care and RN RESOURCE NURSE visit for shower visits . Phone number Patient can be reached at: Other phone number: juanita [phone] Best Time: any Can we leave a detailed message on this number? YES Call taken on 08/15/2021 at 1:00 PM by Malka Pang Sig needed for other order ok for ongoing SN visit for ongoing care and RN RESOURCE NURSE visit for shower visits . [phone] B2B SALES EXECUTIVE documented in this encounter Plan of Treatment Not on filedocumented as of this encounter Visit Diagnoses Not on filedocumented in this encounter Additional Health Concerns Assessment Noted Time PHQ-9 Depression Total Score: 6 04/12/2021 1:59 PM CDT documented as of this encounter Care Teams Pegger Relationship Specialty Start Date End Date Teresita Garcia MD PCP - General Family Practice 01/22/11 [address] [place] [address] Teresita Garcia MD Assigned PCP 11/16/16 12/28/21 [address] [place] [address] documented as of this encounter
--- OUTSIDE RECORDS SUMMARY | 2022-09-04 16:41 | XMS_ITS | Encounter Summary ---
:1960 Author Organization [place] Address [address] [facility] [place] [address] Care Team Providers Name Role Phone Teresita Garcia MD Primary Care Provider Teresita Garcia MD Unavailable Reason for Visit Reason Onset Date Comments Home Care/Hospice 04/22/2021 OT Encounter Details Date Type Department Care Team Description 04/22/2021 Telephone [facility] Teresita Garcia MD Home Care/Hospice (OT) Clinic [address] [id number] Social History Tobacco Use Types Packs/Day [...] do you attend faith or Not asked mormon services? Do you [...] CDT Homecare Orders Requested: Zoie at from [facility] called to [...] documented as of this encounter Care Teams Telemarketing Manager Relationship Specialty Start Date End Date Teresita Garcia MD PCP - General Family Practice 01/22/11 [address] [place] [address] Teresita Garcia MD Assigned PCP 11/16/16 12/28/21 [address] [place] [address] documented as of this encounter
--- OUTSIDE RECORDS SUMMARY | 2022-09-04 16:41 | XMS_ITS | Encounter Summary ---
:1960 Author Organization [place] Address [facility] [place] [address] Care Team Providers Name Role Phone Teresita Garcia MD Primary Care Provider Teresita Garcia MD Unavailable Reason for Visit Reason Comments Medication Refill Encounter Details Date Type Department Care Team Description 05/04/2021 Refill [facility] Roel Garcia MD Medication Refill [address] [address] [place], [place] [id number] [place] [address] [phone] Social History Tobacco Use Types Packs/Day Years [...] do you attend sikhism or Not asked anabaptist services? Do you [...] 05/07/2021 12:37 PM CDT Prescription approved per [facility] Refill Protocol. Zuleyma Fierro RN on 05/07/2021 at 12:37 PM documented in this encounter Plan of Treatment Not on filedocumented as of this encounter Visit Diagnoses Diagnosis Osteoporosis, unspecified osteoporosis t ype, unspecified pathological fracture presence documented in this encounter Additional Health Concerns Assessment Noted Time PHQ-9 Depression Total Score: 6 04/12/2021 1:59 PM CDT documented as of this encounter Care Teams Protective Clothing Issuer Relationship Specialty Start Date End Date Teresita Garcia MD PCP - General Family Practice 01/22/11 [address] [place], [place] [phone] Teresita Garcia MD Assigned PCP 11/16/16 12/28/21 [address] [place], [place] [phone] documented as of this encounter
--- OUTSIDE RECORDS SUMMARY | 2022-09-04 16:41 | XMS_ITS | Encounter Summary ---
:1960 Author Organization [place] Address [address] [facility] [place] [address] Care Team Providers Name Role Phone Teresita Garcia MD Primary Care Provider Teresita Garcia MD Unavailable Encounter Details Date Type Department Care Team Description 05/28/2021 Medical Correspondence [facility] Scan, OASIS TRANSFER Health Info Mgmt Non-Provider [facility] [address] [place] [address] Social History Tobacco Use Types [...] do you attend presybeterian or Not asked mandaeism services? Do you [...] documented as of this encounter Care Teams Ingredient Specialist Relationship Specialty Start Date End Date Teresita Garcia MD PCP - General Family Practice 01/22/11 [address] [place], [place] [phone] Teresita Garcia MD Assigned PCP 11/16/16 12/28/21 [address] [place] [address] documented as of this encounter
--- OUTSIDE RECORDS SUMMARY | 2022-09-04 16:41 | XMS_ITS | Encounter Summary ---
:1960 Author Organization [place] Address [address] [facility]. [address] Care Team Providers Name Role Phone Teresita Garcia MD Primary Care Provider Teresita Garcia MD Unavailable Encounter Details Date Type Department Care Team Description 04/30/2021 Medical Correspondence [facility] [place] Scan, ORDERS [facility] Health Info Mgmt Non-Provider HEALTH/HOSP ICE Srvcs [address] [place] [address] Social History Tobacco Use Types [...] do you attend yazidi or Not asked christian services? Do you [...] documented as of this encounter Care Teams Buffer Inflated Pad Relationship Specialty Start Date End Date Teresita Garcia MD PCP - General Family Practice 01/22/11 [address] [place], [place] [phone] Teresita Garcia MD Assigned PCP 11/16/16 12/28/21 [address] [place] [address] documented as of this encounter
--- OUTSIDE RECORDS SUMMARY | 2022-09-04 16:41 | XMS_ITS | Encounter Summary ---
:1960 Author Organization [place] Address [address] [place] [address] Care Team Providers Name Role Phone Teresita Garcia MD Primary Care Provider Teresita Garcia MD Unavailable Encounter Details Date Type Department Care Team Description 01/22/2021 Medical Correspondence [facility] [place] Scan, HOME CARE RECORD Health Info Mgmt Non-Provider [facility] Sr[facility] HEALTH[facility]HOSPICE [address] [place] [address] Social History Tobacco Use Types Packs/Day [...] do you attend synagogue or Not asked christianity services? Do you [...] documented as of this encounter Care Teams Waterproofing Supervisor Relationship Specialty Start Date End Date Teresita Garcia MD PCP - General Family Practice 01/22/11 [address] [place], [place] [phone] Teresita Garcia MD Assigned PCP 11/16/16 12/28/21 [address] [place], [place] [phone] documented as of this encounter
--- OUTSIDE RECORDS SUMMARY | 2022-09-04 16:41 | XMS_ITS | Encounter Summary ---
:1960 Author Organization [place] Address [address] [facility] [place] [address] Care Team Providers Name Role Phone Teresita [...] do you attend restorationism or Not asked anglican services? Do you [...] documented as of this encounter Care Teams Folder Operator Relationship Specialty Start Date End Date Teresita Garcia MD PCP - General Family Practice 01/22/11 [address] [place] [address] Teresita Garcia MD Assigned PCP 11/16/16 12/28/21 [address] [place] [address] documented as of this encounter
--- OUTSIDE RECORDS SUMMARY | 2022-09-04 16:41 | XMS_ITS | Encounter Summary ---
:1960 Author Organization [place] Address [address] [place] [address] Care Team Providers Name Role Phone Teresita Garcia MD Primary Care Provider Teresita Garcia MD Unavailable Encounter Details Date Type Department Care Team Description 04/12/2021 Medical Correspondence [facility] [place] Scan, ORDERS [facility] Health Info Mgmt Non-Provider HEALTH/HOSP ICE Srvcs [address] [place] [address] Social History Tobacco Use Types [...] do you attend buddhist or Not asked evangelical services? Do you [...] documented as of this encounter Care Teams Phlebotomy Manager Relationship Specialty Start Date End Date Teresita Garcia MD PCP - General Family Practice 01/22/11 [address] [place], [place] [phone] Teresita Garcia MD Assigned PCP 11/16/16 12/28/21 [address] [place] [address] documented as of this encounter
--- OUTSIDE RECORDS SUMMARY | 2022-09-04 16:41 | XMS_ITS | Encounter Summary ---
:1960 Author Organization [place] Address [facility] [place] [address] Care Team Providers Name Role Phone Teresita Garcia MD Primary Care Provider Teresita Garcia MD Unavailable Reason for Visit Reason Onset Date Comments Forms 03/20/2021 Orders Encounter Details Date Type Department Care Team Description 03/20/2021 Telephone [facility] Roel Garcia MD Forms (Orders) [address] [address] [place] [address] [place] [address] [phone] Social History Tobacco Use Types Packs/Day Years [...] do you attend taoist or Not asked anabaptist services? Do you [...] documented as of this encounter Care Teams Food Quality Tester Relationship Specialty Start Date End Date Teresita Garcia MD PCP - General Family Practice 01/22/11 [address] [place], [place] [phone] Teresita Garcia MD Assigned PCP 11/16/16 12/28/21 [address] [place] [address] documented as of this encounter
--- OUTSIDE RECORDS SUMMARY | 2022-09-04 16:41 | XMS_ITS | Encounter Summary ---
:1960 Author Organization [place] Address [address] [place] [address] Care Team Providers Name Role Phone Teresita Garcia MD Primary Care Provider Teresita Garcia MD Unavailable Reason for Referral Care Coordination (Routine) - Closed Specialty Diagnoses / Procedures Referred By Contact Refer red To Contact Diagnoses Counseling and coordination of care Care Coordination [address] [place], [place] [phone] Referral ID Status Reason Start Date Expiration Date Visits Requ ested Visits Authorized [id number] Closed 04/09/2021 04/09/2022 1 1 Encounter Details Date Type Department Care Team Description 04/09/2021 Orders Only [facility] [place], Counseling and Coordination RN coordination of care [address] [place] [address] (Primary Dx) [place], [place] (Work) [address] Social History Tobacco Use [...] do you attend anglican or Not asked sikhism services? Do you [...] documented as of this encounter Care Teams Casserole Preparer Relationship Specialty Start Date End Date Teresita Garcia MD PCP - General Family Practice 01/22/11 [address] [place] [address] Teresita Garcia MD Assigned PCP 11/16/16 12/28/21 [address] [place] [address] documented as of this encounter
--- OUTSIDE RECORDS SUMMARY | 2022-09-04 16:41 | XMS_ITS | Encounter Summary ---
:1960 Author Organization [place] Address [address] [place] [address] Care Team Providers Name Role Phone Teresita Garcia MD Primary Care Provider Teresita Garcia MD Unavailable Encounter Details Date Type Department Care Team Description 06/02/2021 Medical Correspondence [facility] Scan, SKIN MANAGEMENT Health Info Mgmt Non-Provider ORDER [facility] AND [address] [place] [address] Social History Tobacco Use Types Packs/Day [...] do you attend anglican or Not asked jainism services? Do you [...] as of this encounter Care Teams Clinical Lab Assistant Relationship Specialty Start Date End Date Teresita Garcia MD PCP - General Family Practice 01/22/11 [address] [place], [place] [phone] Teresita Garcia MD Assigned PCP 11/16/16 12/28/21 [address] [place] [address] documented as of this encounter
--- OUTSIDE RECORDS SUMMARY | 2022-09-04 16:41 | XMS_ITS | Encounter Summary ---
:1960 Author Organization [place] Address [address] [facility] [place] [address] Care Team Providers Name Role Phone Teresita Garcia MD Primary Care Provider Teresita Garcia MD Unavailable Reason for Visit Reason Onset Date Comments Medication Request 04/16/2021 ketoconazole (NIZORA L) 2 % external shampoo Encounter Details Date Type Department Care Team Description 04/16/2021 Telephone [facility] Teresita Garcia MD Medication Request Clinic [address] (ketoconazole (NIZORAL) [address] [place] [address] 2 % external shampoo) [place], [place] [phone] Social History Tobacco Use Types Packs/Day [...] do you attend judaism or Not asked hoahaoism services? Do you [...] documented as of this encounter Care Teams Hydrogen Operator Relationship Specialty Start Date End Date Teresita Garcia MD PCP - General Family Practice 01/22/11 [address] [place], [place] [phone] Teresita Garcia MD Assigned PCP 11/16/16 12/28/21 [address] [place] [address] documented as of this encounter
--- OUTSIDE RECORDS SUMMARY | 2022-09-04 16:41 | XMS_ITS | Encounter Summary ---
:1960 Author Organization [place] Address [address] [facility] [place] [address] Care Team Providers Name Role Phone Teresita Garcia MD Primary Care Provider eTresita Garcia MD Unavailable Reason for Visit Reason Onset Date Comments Forms 08/14/2021 Physician Orders Encounter Details Date Type Department Care Team Description 08/14/2021 Telephone [facility] Teresita Garcia MD Forms ([facility] [place] [address] [place] [address] Orders) [address] [place], [place] [phone] Social History Tobacco Use Types Packs/Day [...] do you attend restoration or Not asked anabaptism services? Do you [...] Form completed and faxed, 08/14/2021 Jackie Brito/AWILDA STOS SIDING INSTALLER Telephone Encounter - Rosy Brito - 08/14/2021 10:32 AM CST Received 3 page fax for Physician Orders for Dr Garcia to complete. Form in the in-basket at AA's desk. STOS SIDING INSTALLER documented in this encounter Plan of Treatment Not on filedocumented as of this encounter Visit Diagnoses Not on filedocumented in this encounter Additional Health Concerns Assessment Noted Time PHQ-9 Depression Total Score: 6 04/12/2021 1:59 PM CDT documented as of this encounter Care Teams Education Administrator Relationship Specialty Start Date End Date Teresita Garcia MD PCP - General Family Practice 01/22/11 [address] [place] [address] Teresita Garcia MD Assigned PCP 11/16/16 12/28/21 [address] [place] [address] documented as of this encounter
--- OUTSIDE RECORDS SUMMARY | 2022-09-04 16:41 | XMS_ITS | Encounter Summary ---
:1960 Author Organization [place] Address [address] [place] [address] Care Team Providers Name Role Phone Teresita [...] do you attend orthodoxy or Not asked uatsdin services? Do you [...] documented as of this encounter Care Teams Handhole Machine Operator Relationship Specialty Start Date End Date Teresita Garcia MD PCP - General Family Practice 01/22/11 [address] [place] [address] Teresita Garcia MD Assigned PCP 11/16/16 12/28/21 [address] [place] [address] documented as of this encounter
--- OUTSIDE RECORDS SUMMARY | 2022-09-04 16:41 | XMS_ITS | Encounter Summary ---
:1960 Author Organization [place] Address [facility] [place] [address] Care Team Providers Name Role Phone Teresita Garcia MD Primary Care Provider Teresita Garcia MD Unavailable Reason for Visit Reason Onset Date Comments Orders 05/03/2021 [facility] Encounter Details Date Type Department Care Team Description 05/03/2021 Telephone [facility] Roel Garcia MD Orders ([facility]) [phone] [place] [address] [phone] (Wo rk) Social History Tobacco Use Types [...] sign placed in AA box. Fax to [phone] when completed documented in this encounter Plan of Treatment Not on filedocumented as of this encounter Visit Diagnoses Not on filedocumented in this encounter Additional Health Concerns Assessment Noted Time PHQ-9 Depression Total Score: 6 04/12/2021 1:59 PM CDT documented as of this encounter Care Teams Lean Manufacturing Engineer Relationship Specialty Start Date End Date Teresita Garcia MD PCP - General Family Practice 01/22/11 [address] [place] [address] Teresita Garcia MD Assigned PCP 11/16/16 12/28/21 [address] [place] [address] documented as of this encounter
--- OUTSIDE RECORDS SUMMARY | 2022-09-04 16:41 | XMS_ITS | Encounter Summary ---
:1960 Author Organization [place] Address [address] [facility] [place] [address] Care Team Providers Name Role Phone Teresita Garcia MD Primary Care Provider Teresita Garcia MD Unavailable Reason for Visit Reason Comments Hospital F/U sepsis, UTI Encounter Details Date Type Department Care Team Description 04/12/2021 Virtual Visit [facility] Teresita Garcia MD Sepsis secondary to UTI (H) (Primary Dx) ; Clinic [place] [id number] [place] [address] Lab test positive for detection of COVID -[address] [place] [address] [phone] Social History Tobacco Use Types Packs/Day [...] do you attend presybeterian or Not asked mormon services? Do you [...] would you like to be contacted at? [phone] How would you like to obtain your [...] [address] MD [facility] Subjective Dejuan is a 60 year old who presents for the following health issues HPI Hospital Follow-up Visit: Hospital/Jail/IP Rehab Facility: [facility] Date of Admission: 04/04/21 Date of [...] documented as of this encounter Care Teams Polisher Eyeglass Frames Relationship Specialty Start Date End Date Teresita Garcia MD PCP - General Family Practice 01/22/11 [address] [place] [address] Teresita Garcia MD Assigned PCP 11/16/16 12/28/21 [address] [place] [address] documented as of this encounter
--- OUTSIDE RECORDS SUMMARY | 2022-09-04 16:41 | XMS_ITS | Encounter Summary ---
:1960 Author Organization [place] Address [facility] [place] [address] Care Team Providers Name Role Phone Teresita Garcia MD Primary Care Provider Teresita Garcia MD Unavailable Reason for Visit Reason Comments Medication Refill Encounter Details Date Type Department Care Team Description 11/25/2020 Refill [facility] Roel Garcia MD Medication Refill [address] [address] [place], [place] [address] [place] [address] [phone] Social History Tobacco Use Types Packs/Day Years [...] do you attend spiritism or Not asked christian services? Do you [...] 11/27/2020 11:54 AM CST Prescription approved per [facility] Refill Protocol. Karen Covarrubias RN, BSN Message handled by CLINIC NURSE. GRAPH PLANT MAINTAINER documented in this encounter Plan of Treatment Not on filedocumented as of this encounter Visit Diagnoses Diagnosis Osteoporosis, unspecified osteoporosis t ype, unspecified pathological fracture presence documented in this encounter Additional Health Concerns Assessment Noted Time PHQ-9 Depression Total Score: 8 06/26/2020 12:57 PM CD T documented as of this encounter Care Teams Manager Media Relationship Specialty Start Date End Date Teresita Garcia MD PCP - General Family Practice 01/22/11 [address] [place], [place] [id number] Teresita Garcia MD Assigned PCP 11/16/16 12/28/21 [address] [place] [address] documented as of this encounter
--- OUTSIDE RECORDS SUMMARY | 2022-09-04 16:41 | XMS_ITS | Encounter Summary ---
:1960 Author Organization [place] Address [address] [facility] [place] [address] Care Team Providers Name Role Phone Teresita Garcia MD Primary Care Provider Teresita Garcia MD Unavailable Reason for Visit Reason Onset Date Comments Home Care/Hospice 04/10/2021 orders Encounter Details Date Type Department Care Team Description 04/10/2021 Telephone [facility] Teresita Garcia MD Home Care/Hospice Clinic [place] [id number] [place] [address] (orders) [address] [place] [phone] Social History Tobacco Use Types [...] do you attend uatsdin or Not asked spiritism services? Do you [...] Orders Requested: Renea Wills at from [facility] called to request orders for the following Services: [facility] for:2 times a week x 3 weeks [...] documented as of this encounter Care Teams Double Needle Operator Relationship Specialty Start Date End Date Teresita Garcia MD PCP - General Family Practice 01/22/11 [address] [place] [address] Teresita Garcia MD Assigned PCP 11/16/16 12/28/21 [address] [place] [address] documented as of this encounter
--- OUTSIDE RECORDS SUMMARY | 2022-09-04 16:41 | XMS_ITS | Encounter Summary ---
:1960 Author Organization [place] Address [address] [facility] [place] [address] Care Team Providers Name Role Phone Teresita Garcia MD Primary Care Provider Teresita Garcia MD Unavailable Reason for Visit Reason Comments Patient/info Update SB # Encounter Details Date Type Department Care Team Description 12/21/[address] [facility] Della Choi ent/info Update Clinic Chancellor JAN Rios (SB # ) [id number] [phone] [place], [place] (Work) [phone] Social History Tobacco Use [...] do you attend christian or Not asked episcopalian services? Do you [...] Nurse, PAL (Patient Advocate Liason) [facility] [phone] documented in this encounter Plan of Treatment Not on filedocumented as of this encounter Visit Diagnoses Not on filedocumented in this encounter Additional Health Concerns Assessment Noted Time PHQ-9 Depression Total Score: 8 06/26/2020 12:57 PM CD T documented as of this encounter Care Teams Cork Insulator Helper Relationship Specialty Start Date End Date Teresita Garcia MD PCP - General Family Practice 01/22/11 [address] [place], [place] [phone] Teresita Garcia MD Assigned PCP 11/16/16 12/28/21 [address] [place], [place] [phone] documented as of this encounter
--- OUTSIDE RECORDS SUMMARY | 2022-09-04 16:41 | XMS_ITS | Encounter Summary ---
:1960 Author Organization [place] Address [address] [facility] [address] Care Team Providers Name Role Phone Teresita Garcia MD Primary Care Provider Teresita Garcia MD Unavailable Reason for Visit Reason Onset Date Comments Orders 01/11/2021 [facility] Encounter Details Date Type Department Care Team Description [facility] [address] [place] [address] Social History Tobacco Use Types [...] do you attend religion or Not asked methodist services? Do you [...] come out to see pt. Zoie [facility] care [phone] Joselin Gusman RN, BSN, PAL (Patient Advocate Liaison) [facility] [phone]\ documented in this encounter Plan of Treatment Not on filedocumented as of this encounter Visit Diagnoses Not on filedocumented in this encounter Additional Health Concerns Assessment Noted Time PHQ-9 Depression Total Score: 8 06/26/2020 12:57 PM CD T documented as of this encounter Care Teams Family Independence Case Manager Relationship Specialty Start Date End Date Teresita Garcia MD PCP - General Family Practice 01/22/11 [address] [place], [place] [phone] Teresita Garcia MD Assigned PCP 11/16/16 12/28/21 [address] [place], [place] [phone] documented as of this encounter
--- OUTSIDE RECORDS SUMMARY | 2022-09-04 16:41 | XMS_ITS | Encounter Summary ---
:1960 Author Organization [place] Address [address] [facility] [place] [address] Care Team Providers Name Role Phone Teresita Garcia MD Primary Care Provider Teresita Garcia MD Unavailable Reason for Visit Reason Onset Date Comments Home Care/Hospice 08/09/2021 PT and OT Encounter Details Date Type Department Care Team Description 08/09/2021 Telephone [facility] Teresita Garcia MD Home Care/Hospice (PT [facility] [place] [id number] [place] [address] and OT) [address] [place] [phone] Social History Tobacco Use Types [...] do you attend buddhism or Not asked rastafarian services? Do you [...] CST Homecare Orders Requested: Zoie at from [facility] called to request orders for the following Services: Physical Therapy for:eval and treat and Occupational Therapy for:eval and treat Informs pt getting weaker and needs more assistance with transfers, would like Pt and OT added Verbal order provided, FYI to Homecare agency to fax orders over for review and signature of PCP. Karen Covarrubias RN ER STAMPS AND DIES SUPERVISOR documented in this encounter Plan of Treatment Not on filedocumented as of this encounter Visit Diagnoses Not on filedocumented in this encounter Additional Health Concerns Assessment Noted Time PHQ-9 Depression Total Score: 6 04/12/2021 1:59 PM CDT documented as of this encounter Care Teams Security Monitor Relationship Specialty Start Date End Date Teresita Garcia MD PCP - General Family Practice 01/22/11 [address] [place] [address] Teresita Garcia MD Assigned PCP 11/16/16 12/28/21 [address] [place] [address] documented as of this encounter
--- OUTSIDE RECORDS SUMMARY | 2022-09-04 16:41 | XMS_ITS | Encounter Summary ---
:1960 Author Organization [place] Address [address] [facility] [place] [address] Care Team Providers Name Role Phone Teresita Garcia MD Primary Care Provider Teresita Garcia MD Unavailable Reason for Visit Reason Comments Physical Encounter Details Date Type Department Care Team Description 06/14/2021 Office Visit [facility], Routine general medical examination at a health care facility (Primary Dx); [facility] [place] Audrey Gibbs MD Neurogenic bladder; [address] [facility] [id number] [place] [address] MS (multiple sclerosis) (H); [place], [place] Aníbal swanson lower extremity edema; [phone] Need for vaccination [phone] Social History Tobacco Use Types Packs/Day Years [...] do you attend taoist or Not asked quaker services? Do you [...] moving from an assisted living facility in [place] to another one in [place]. Recently discharged from the hospital for a [...] orders accordingly - Yes Labs reviewed in [facility] Reviewed and updated as needed this visit [...] Preventive Guidelines Dietary Guidelines for Americans, 2009 [employer] ASA Prophylaxis Lung CA Screening Audrey Hickamn MD [facility] documented in this encounter Plan of [...] documented as of this encounter Care Teams Professor Of Mathematics Relationship Specialty Start Date End Date Teresita Garcia MD PCP - General Family Practice 01/22/11 [address] [place] [address] Teresita Garcia MD Assigned PCP 11/16/16 12/28/21 [address] [place], [place] [phone] documented as of this encounter
--- OUTSIDE RECORDS SUMMARY | 2022-09-04 16:41 | XMS_ITS | Encounter Summary ---
:1960 Author Organization [place] Address [address] [facility] [place] [address] Care Team Providers Name Role Phone Teresita Garcia MD Primary Care Provider Teresita Garcia MD Unavailable Reason for Visit Reason Onset Date Comments Forms 11/21/2020 Physician Order Encounter Details Date Type Department Care Team Description 11/21/2020 Telephone [facility] Teresita Garcia MD Forms (Physician Order) Clinic [address] [place] [address] [phone] Social History Tobacco Use Types Packs/Day [...] do you attend rastafari or Not asked tenriism services? Do you [...] Form completed and faxed, 11/27/2020 Jackie Brito/AWILDA URE FRAMES INSPECTOR Telephone Encounter - Rosy Brito - 11/21/2020 11:58 AM CST Received 2 page fax for Physician Order for Dr Garcia to complete. Form in the in- basket at [facility] in AA's folder. URE FRAMES INSPECTOR documented in this encounter Plan of Treatment Not on filedocumented as of this encounter Visit Diagnoses Not on filedocumented in this encounter Additional Health Concerns Assessment Noted Time PHQ-9 Depression Total Score: 8 06/26/2020 12:57 PM CD T documented as of this encounter Care Teams Varnish Cooker Relationship Specialty Start Date End Date Teresita Garcia MD PCP - General Family Practice 01/22/11 [address] [place] [address] Teresita Garcia MD Assigned PCP 11/16/16 12/28/21 [address] [place] [address] documented as of this encounter
--- OUTSIDE RECORDS SUMMARY | 2022-09-04 16:41 | XMS_ITS | Encounter Summary ---
:1960 Author Organization [place] Address [address] [facility] [place] [address] Care Team Providers Name Role Phone Teresita Garcia MD Primary Care Provider Teresita Garcia MD Unavailable Encounter Details Date Type Department Care Team Description 03/15/2021 [facility] [place] Scan, HOME HEALTH PLAN OF Health Info Mgmt [facility]-Provider [facility] [address] [place] [address] Social History Tobacco Use Types [...] do you attend episcopal or Not asked quaker services? Do you [...] documented as of this encounter Care Teams Sports Specialist Relationship Specialty Start Date End Date Teresita Garcia MD PCP - General Family Practice 01/22/11 [address] [place] [address] Teresita Garcia MD Assigned PCP 11/16/16 12/28/21 [address] [place] [address] documented as of this encounter
--- OUTSIDE RECORDS SUMMARY | 2022-09-04 16:41 | XMS_ITS | Encounter Summary ---
:1960 Author Organization [place] Address [address] [facility] [place] [address] Care Team Providers Name Role Phone Teresita Garcia MD Primary Care Provider Teresita Garcia MD Unavailable Encounter Details Date Type Department Care Team Description 04/03/2021 Medical Correspondence [facility] Scan, PLAN OF CARE [facility] Non-Provider HEALTH HOME HEALTH Srvcs [address] [place] [address] Social History Tobacco Use Types [...] do you attend synagogue or Not asked alevism services? Do you [...] of this encounter Care Teams Director Of Social Services Relationship Specialty Start Date End Date Teresita Garcia MD PCP - General Family Practice 01/22/11 [address] [place], [place] [phone] Teresita Garcia MD Assigned PCP 11/16/16 12/28/21 [address] [place] [address] documented as of this encounter
--- OUTSIDE RECORDS SUMMARY | 2022-09-04 16:41 | XMS_ITS | Encounter Summary ---
:1960 Author Organization [place] Address [address] [place] [address] Care Team Providers Name Role Phone Teresita Garcia MD Primary Care Provider Teresita Garcia MD Unavailable Encounter Details Date Type Department Care Team Description 11/27/2020 Medical Correspondence [facility] Scan, PLAN OF CARE [facility] Health Info [facility] Non-Provider [facility] [address] [place] [phone] Social History Tobacco Use Types Packs/Day [...] do you attend sikhism or Not asked voodoo services? Do you [...] documented as of this encounter Care Teams Continuous Mining Operator Relationship Specialty Start Date End Date Teresita Garcia MD PCP - General Family Practice 01/22/11 [address] [place], [place] [phone] Teresita Garcia MD Assigned PCP 11/16/16 12/28/21 [address] [place], [place] [phone] documented as of this encounter
--- OUTSIDE RECORDS SUMMARY | 2022-09-04 16:41 | XMS_ITS | Encounter Summary ---
:1960 Author Organization [place] Address [address] [facility] [place] [address] Care Team Providers Name Role Phone Teresita Garcia MD Primary Care Provider Teresita Garcia MD Unavailable Reason for Visit Reason Onset Date Comments Home Care/Hospice 07/23/2021 UA Encounter Details Date Type Department Care Team Description 07/23/2021 Telephone [facility] Teresita Garcia MD Home Care/Hospice (UA) Clinic [phone] [place] [address] [phone] Social History Tobacco Use Types Packs/Day [...] do you attend restorationist or Not asked druze services? Do you [...] Homecare Orders Requested: Zoie MONTOYA at from [facility] called to request orders for the [...] documented as of this encounter Care Teams Rod Tape Operator Relationship Specialty Start Date End Date Teresita Garcai MD PCP - General Family Practice 01/22/11 [address] [place] [address] Teresita Garcia MD Assigned PCP 11/16/16 12/28/21 [address] [place] [address] documented as of this encounter
--- OUTSIDE RECORDS SUMMARY | 2022-09-04 16:41 | XMS_ITS | Encounter Summary ---
:1960 Author Organization [place] Address [address] [facility] [place] [address] Care Team Providers Name Role Phone Teresita Garcia MD Primary Care Provider Teresita Garcia MD Unavailable Reason for Visit Reason Onset Date Comments Forms 05/31/[address] [facility] o f care Encounter Details Date Type Department Care Team Description 05/31/2021 Telephone [facility] Teresita Garcia MD Forms ([address]) [address] [place] [address] [phone] Social History Tobacco Use Types Packs/Day [...] AM CDT Forms completed and faxed to [phone] Telephone Encounter - Blanca Alves CMA - 05/31/2021 9:03 AM CDT Forms from [facility] of care needing to be signed placed in Dr Garcia box. Please fax to [phone] when completed documented in this encounter Plan of Treatment Not on filedocumented as of this encounter Visit Diagnoses Not on filedocumented in this encounter Additional Health Concerns Assessment Noted Time PHQ-9 Depression Total Score: 6 04/12/2021 1:59 PM CDT documented as of this encounter Care Teams Health Actuary Relationship Specialty Start Date End Date Teresita Garcia MD PCP - General Family Practice 01/22/11 [address] [place] [address] Teresita Garcia MD Assigned PCP 11/16/16 12/28/21 [address] [place] [address] documented as of this encounter
--- OUTSIDE RECORDS SUMMARY | 2022-09-04 16:41 | XMS_ITS | Encounter Summary ---
:1960 Author Organization [place] Address [address] [facility] [place] [address] Care Team Providers Name Role Phone Teresita Garcia MD Primary Care Provider Teresita Garcia MD Unavailable Reason for Visit Reason Onset Date Comments Forms 04/19/2021 Home Health Care Encounter Details Date Type Department Care Team Description 04/19/2021 Telephone [facility] Teresita Garcia MD Forms (Home Health [facility] [place] [address] [place] [address]) [address] [place] [address] [phone] Social History Tobacco Use Types Packs/Day [...] do you attend hoahaoism or Not asked mormonism services? Do you [...] 1:59 PM CDT Forms completed Fax to [phone] Telephone Encounter - Blanca Alves CMA - 04/19/2021 7:00 AM CDT 04/19/2021 [facility] forms to be sign placed in AA box. Fax to [phone] when completed documented in this encounter Plan of Treatment Not on filedocumented as of this encounter Visit Diagnoses Not on filedocumented in this encounter Additional Health Concerns Assessment Noted Time PHQ-9 Depression Total Score: 6 04/12/2021 1:59 PM CDT documented as of this encounter Care Teams Gang Hemstitching Machine Operator Relationship Specialty Start Date End Date Teresita Garcia MD PCP - General Family Practice 01/22/11 [address] [place] [address] Teresita Garcia MD Assigned PCP 11/16/16 12/28/21 [address] [place] [address] documented as of this encounter
--- OUTSIDE RECORDS SUMMARY | 2022-09-04 16:41 | XMS_ITS | Encounter Summary ---
:1960 Author Organization [place] Address [address] [facility] [address] Care Team Providers Name Role Phone Teresita Garcia MD Primary Care Provider Teresita Garcia MD Unavailable Reason for Visit Reason Onset Date Comments Pt. Information/instruction 02/20/2021 henry hamilton Encounter Details Date Type Department Care Team Description 02/20/2021 Telephone [facility] Teresita Garcia MD Pt. Clinic [address] Information/instruction [address] [place], [place] (new amdission) [place], [place] [phone] Social History Tobacco Use Types Packs/Day [...] do you attend confucianist or Not asked congregational services? Do you [...] Covarrubias RN - 02/20/2021 1:53 PM CDT [facility] [place], , need stat med list and last appointment Faxed [phone], pt will be new admit, will fax [...] documented as of this encounter Care Teams E Commerce Project Manager Relationship Specialty Start Date End Date Teresita Garcia MD PCP - General Family Practice 01/22/11 [address] [place] [address] Teresita Garcia MD Assigned PCP 11/16/16 12/28/21 [address] [place] [address] documented as of this encounter
--- OUTSIDE RECORDS SUMMARY | 2022-09-04 16:41 | XMS_ITS | Encounter Summary ---
:1960 Author Organization [place] Address [address] [facility] [place] [address] Care Team Providers Name Role Phone Teresita Garcia MD Primary Care Provider Teresita Garcia MD Unavailable Reason for Visit Reason Onset Date Comments Forms 01/23/2021 PUMP OPERATOR [employer] Assessment and/o r Follow up Encounter Details Date Type Department Care Team Description 01/23/2021 Telephone [facility] Teresita Garcia MD Forms (PUMP OPERATOR [employer]PRODU[employer] Assessment Clinic [address] and/or Follow up) [address] [place] [address] [phone] Social History Tobacco Use Types Packs/Day [...] you attend latter day or Not asked mormon services? Do you [...] AM CDT Received 2 page fax for PUMP OPERATOR [employer] Assessment and/or Follow up for Dr Garcia to complete. Form in the in-basket at [facility] in 's folder. documented in this encounter Plan of Treatment Not on filedocumented as of this encounter Visit Diagnoses Not on filedocumented in this encounter Additional Health Concerns Assessment Noted Time PHQ-9 Depression Total Score: 8 06/26/2020 12:57 PM CD T documented as of this encounter Care Teams License And Permit Specialist Relationship Specialty Start Date End Date Teresita Garcia MD PCP - General Family Practice 01/22/11 [address] [place] [address] Teresita Garcia MD Assigned PCP 11/16/16 12/28/21 [address] [place] [address] documented as of this encounter
--- OUTSIDE RECORDS SUMMARY | 2022-09-04 16:41 | XMS_ITS | Encounter Summary ---
:1960 Author Organization [place] Address [address] [facility] [place] [address] Care Team Providers Name Role Phone Teresita [...] do you attend spiritism or Not asked baptism services? Do you [...] documented as of this encounter Care Teams Booth Operator Relationship Specialty Start Date End Date Teresita Garcia MD PCP - General Family Practice 01/22/11 [address] [place] [address] Teresita Garcia MD Assigned PCP 11/16/16 12/28/21 [address] [place] [address] documented as of this encounter
--- OUTSIDE RECORDS SUMMARY | 2022-09-04 16:41 | XMS_ITS | Encounter Summary ---
:1960 Author Organization [place] Address [facility] [place] [address] Care Team Providers Name Role Phone Teresita Garcia MD Primary Care Provider Teresita Garcia MD Unavailable Reason for Visit Reason Onset Date Comments Forms 01/23/2021 Plan of Care Encounter Details Date Type Department Care Team Description 01/23/2021 Telephone [facility] Roel Garcia MD Forms (Plan of Care) [id number] [place] [phone] Social History Tobacco Use Types Packs/Day Years [...] you attend roman catholic or Not asked congregational services? Do you [...] Form in the in- basket at [facility] in 's folder. documented in this encounter Plan of Treatment Not on filedocumented as of this encounter Visit Diagnoses Not on filedocumented in this encounter Additional Health Concerns Assessment Noted Time PHQ-9 Depression Total Score: 8 06/26/2020 12:57 PM CD T documented as of this encounter Care Teams Astronomy Teacher Relationship Specialty Start Date End Date Teresita Garcia MD PCP - General Family Practice 01/22/11 [address] [place] [address] Teresita Garcia MD Assigned PCP 11/16/16 12/28/21 [address] [place] [address] documented as of this encounter
--- OUTSIDE RECORDS SUMMARY | 2022-09-04 16:42 | XMS_ITS | Encounter Summary ---
:1960 Author Organization [place] Address [facility] [place] [address] Care Team Providers Name Role Phone Teresita Garcia MD Primary Care Provider Teresita Garcia MD Unavailable Reason for Visit Reason Onset Date Comments Forms 11/21/2020 Plan of Care Encounter Details Date Type Department Care Team Description 11/21/2020 Telephone [facility] Roel Garcia MD Forms (Plan of Care) [id number] [place] [phone] Social History Tobacco Use Types Packs/Day Years [...] do you attend hoahaoism or Not asked scientology services? Do you [...] Form completed and faxed, 11/27/2020 Jackie Brito/AWILDA BOSS Telephone Encounter - Rosy Brito - 11/21/2020 11:56 AM CST Received 6 page fax for Plan of Care for Dr Garcia to complete. Form in the in- basket at [facility] in 's folder. BOSS documented in this encounter Plan of Treatment Not on filedocumented as of this encounter Visit Diagnoses Not on filedocumented in this encounter Additional Health Concerns Assessment Noted Time PHQ-9 Depression Total Score: 8 06/26/2020 12:57 PM CD T documented as of this encounter Care Teams Service Line Coordinator Relationship Specialty Start Date End Date Teresita Garcia MD PCP - General Family Practice 01/22/11 [address] [place] [address] Teresita Garcia MD Assigned PCP 11/16/16 12/28/21 [address] [place] [address] documented as of this encounter
--- OUTSIDE RECORDS SUMMARY | 2022-09-04 16:42 | XMS_ITS | Encounter Summary ---
:1960 Author Organization [place] Address [address] [facility] [place] [address] Care Team Providers Name Role Phone Teresita Garcia MD Primary Care Provider Teresita Garcia MD Unavailable Encounter Details Date Type Department Care Team Description 06/19/2020 Hospital Encounter [facility] MD ayah Bladder stones [facility] [address] [place] [phone] [place], [place] [phone] Social History Tobacco Use Types Packs/Day [...] do you attend taoism or Not asked confucianism services? Do you [...] 0 06/08/2017 Carb-Cholecalciferol mouth 2 times daily 600-800 MG-UNIT TABS Docusate [...] 06/19/2020 4:16 PM CDT Report given to Karen Rendon RN at 1615 documented in this encounter Miscellaneous Notes Op Note - Dax Menon MD - 06/19/2020 1:52 PM CDT Date of surgery: 06/19/20 Place of Surgery: [facility] Surgeon: Dax Menon MD Anesthesia: General Preoperative diagnosis: 1. Multiple sclerosis 2. Neurogenic bladder 3. Bladder stones Postoperative diagnosis: 1. Multiple sclerosis 2. Neurogenic bladder 3. Bladder stones Procedure: 1. Cystoscopy 2. Cystolitholapaxy with holmium laser lithotripsy 3. Intravesical Botox injection Drains: 18 Faroese silicone Valenzuela catheter Specimens: Bladder stones Estimated [...] the posterior wall and trigone. A 18 Faroese silicone Valenzuela was then inserted and placed [...] Composition See Note 06/25/2020 2:30 PM CDT [facility] Comment: Calculi composed primarily of: 30% magnesium [...] composition determined by FTIR analysis. Performed By: [employer] [address] [place] [id number] Research Advisor: Iona Lauren MD Specimen Anatomical Collection Method Collection Time Receive d Time (Source) Location / / Volume Laterality Calculus URINARY BLADDER 06/19/2020 1:53 PM 2019 3:09 specimen STRUCTURE / CDT PM CDT (specimen) Unknown Dax Menon MD LAB - BODY FLUIDS ORDERABLES Performing Organization Address City/State/ZIP Code Phon e Number [employer] [place], [place] [phone] [address] [facility] [address] [facility] [address] [place] [phone] documented in this encounter Visit Diagnoses Diagnosis Bladder stones Other calculus in bladder documented in this encounter Additional Health Concerns Assessment Noted Time PHQ-9 Depression Total Score: 8 12/02/2019 2:02 PM VENEER PATCHER documented as of this encounter Care Teams Auto Clutch Rebuilder Relationship Specialty Start Date End Date Teresita Garcia MD PCP - General Family Practice 01/22/11 [address] [place], [place] [id number] Teresita Garcia MD Assigned PCP 11/16/16 12/28/21 [address] [place], [place] [id number] documented as of this encounter
--- OUTSIDE RECORDS SUMMARY | 2022-09-04 16:42 | XMS_ITS | Encounter Summary ---
:1960 Author Organization [place] Address [address] [facility] [place] [address] Care Team Providers Name Role Phone Treesita Garcia MD Primary Care Provider Teresita Garcia MD Unavailable Dolores Caputo LEADITE HEATER Unavailable Letha Vasquez MA Unavailable Reason for Visit Reason Onset Date Comments Orders 07/27/2020 [facility] Encounter Details Date Type Department Care Team Description 07/27/2020 Telephone [facility] Teresita Garcia MD Orders ([facility] [address]) [address] [place] [phone] Social History Tobacco Use Types Packs/Day [...] do you attend confucianism or Not asked holiness services? Do you [...] PM CST Signed orders faxed. Malena Hankins Health Informatics Specialist [facility] Telephone Encounter - Malena Hankins - 07/27/2020 9:13 AM CDT Recd 6 page fax from [employer]. Please sign orders and fax to [phone]. Form in AA folder at [place]. Malena Hankins Health Informatics Specialist documented in this encounter Plan of Treatment Not on filedocumented as of this encounter Visit Diagnoses Not on filedocumented in this encounter Additional Health Concerns Assessment Noted Time PHQ-9 Depression Total Score: 8 06/26/2020 12:57 PM CD T documented as of this encounter Care Teams Mail Handler Equipment Operator Relationship Specialty Start Date End Date Teresita Garcia MD PCP - General Family Practice 01/22/11 [address] [place] [address] Teresita Garcia MD Assigned PCP 11/16/16 12/28/21 [address] [place] [address] Dolores Caputo, PATEL Lead Forging Press Operator Primary Care - CC 06/27/20 09/03/20 Letha Vasquez, Community Health Worker 07/05/20 09/03/20 MA documented as of this encounter
--- OUTSIDE RECORDS SUMMARY | 2022-09-04 16:42 | XMS_ITS | Encounter Summary ---
:1960 Author Organization [place] Address [address] [facility] [place] [address] Care Team Providers Name Role Phone Teresita Garcia MD Primary Care Provider Teresita Garcia MD Unavailable Dolores Caputo NECKTIES PAINTER Unavailable Letha Vasquez MA Unavailable Audrey Hickman MD Unavailable [phone] Reason for Visit Reason Comments Medication Refill Encounter Details Date Type Department Care Team Description 08/23/2020 Refill [facility] Roel Garcia MD Medication Refill [phone] [place] [address] [place] [address] [phone] Social History Tobacco Use Types Packs/Day Years [...] do you attend samaritan or Not asked religion services? Do you [...] Kirstin Mejia, RN - 08/24/2020 10:49 AM MACHINE HOSE CUTTER Patient has refills remaining with requesting pharmacy. Kirstin Vail - Registered Nurse [facility] INE HOSE CUTTER documented in this encounter Plan of [...] documented as of this encounter Care Teams Coding Analyst Relationship Specialty Start Date End Date Teresita Garcia MD PCP - General Family Practice 01/22/11 [address] [place] [address] Teresita Garcia MD Assigned PCP 11/16/16 12/28/21 [address] [place] [address] Dolores Caputo, NECKTIES PAINTER Lead Host Primary Care - CC 06/27/20 09/03/20 Lehta Vasquez, Community Health Worker 07/05/20 09/03/20 MA Audrey Hickman Assigned PCP 12/29/21 MD Bernie [address] [place] [address] documented as of this encounter
--- OUTSIDE RECORDS SUMMARY | 2022-09-04 16:42 | XMS_ITS | Encounter Summary ---
:1960 Author Organization [place] Address [address] [facility] [place] [address] Care Team Providers Name Role Phone Teresita Garcia MD Primary Care Provider Teresita Garcia MD Unavailable Dolores Caputo AND TAXI INSTRUCTOR BUS TROLLEY Unavailable Letha Vasquez MA Unavailable Reason for Visit Reason Onset Date Comments Forms 07/25/2020 Physician Order Encounter Details Date Type Department Care Team Description 07/25/2020 Telephone [facility] Teresita Garcia MD Forms (Physician Order) Clinic [address] [phone] Social History Tobacco Use Types Packs/Day [...] do you attend jain or Not asked lutheran services? Do you [...] complete. Form in the in- basket at [facility] in AA's folder. documented in this encounter Plan of Treatment Not on filedocumented as of this encounter Visit Diagnoses Not on filedocumented in this encounter Additional Health Concerns Assessment Noted Time PHQ-9 Depression Total Score: 8 06/26/2020 12:57 PM CD T documented as of this encounter Care Teams Overseer Kosher Kitchen Relationship Specialty Start Date End Date Teresita Garcia MD PCP - General Family Practice 01/22/11 [address] [place] [address] Teresita Garcia MD Assigned PCP 11/16/16 12/28/21 [address] [place] [address] Dolores Caputo, AND TAXI INSTRUCTOR BUS TROLLEY Lead Lead Software Test Engineer Primary Care - CC 06/27/20 09/03/20 Letha Vasquez, Community Health Worker 07/05/20 09/03/20 JAY JAY documented as of this encounter
--- OUTSIDE RECORDS SUMMARY | 2022-09-04 16:42 | XMS_ITS | Encounter Summary ---
:1960 Author Organization [place] Address [address] [facility] [place] [address] Care Team Providers Name Role Phone Teresita Garcia MD Primary Care Provider Teresita Garcia MD Unavailable Dolores Caputo WIND TURBINE MECHANICAL ENGINEER Unavailable Letha Vasquez MA Unavailable Reason for Visit Reason Onset Date Comments Orders 07/27/2020 [facility] Encounter Details Date Type Department Care Team Description 07/27/2020 Telephone [facility] Teresita Garcia MD Orders ([facility] [address]) [address] [place] [address] [phone] Social History Tobacco Use Types Packs/Day [...] do you attend presybeterian or Not asked mu-ism services? Do you [...] PM CST Signed orders faxed. Malena Hankins Consumer Advocate SIT OPERATOR Telephone Encounter - Malena Hankins - 07/27/2020 8:29 AM CDT Recd 2 page fax from [employer]. Please sign orders and fax to [phone]. Form in AA folder at [facility]. Malena Hankins Consumer Advocate documented in this encounter Plan of Treatment Not on filedocumented as of this encounter Visit Diagnoses Not on filedocumented in this encounter Additional Health Concerns Assessment Noted Time PHQ-9 Depression Total Score: 8 06/26/2020 12:57 PM CD T documented as of this encounter Care Teams Fixing Carpenter Relationship Specialty Start Date End Date Teresita Garcia MD PCP - General Family Practice 01/22/11 [address] [place] [address] Teresita Garcia MD Assigned PCP 11/16/16 12/28/21 [address] [place] [address] Dolores Caputo, PATEL Lead Recreation Adviser Primary Care - CC 06/27/20 09/03/20 Letha Vasquez, Community Health Worker 07/05/20 09/03/20 MA documented as of this encounter
--- OUTSIDE RECORDS SUMMARY | 2022-09-04 16:42 | XMS_ITS | Encounter Summary ---
:1960 Author Organization [place] Address [address] [facility] [place] [address] Care Team Providers Name Role Phone Teresita Garcia MD Primary Care Provider Teresita Garcia MD Unavailable Dolores Caputo BUSINESS PARTNER Unavailable Letha Vasquez MA Unavailable Encounter Details Date Type Department Care Team Description 07/18/2020 Communication - [place] [facility] Scheduling JERRI Diaz [address] [place] [address] Social History Tobacco Use Types [...] do you attend orthodoxy or Not asked taoism services? Do you [...] documented as of this encounter Care Teams Movie Theater Manager Relationship Specialty Start Date End Date Teresita Garcia MD PCP - General Family Practice 01/22/11 [address] [place], [place] [phone] Teresita Garcia MD Assigned PCP 11/16/16 12/28/21 [address] [place], [place] [phone] Dolores Caputo, BUSINESS PARTNER Lead Real Estate Accountant Primary Care - CC 06/27/20 09/03/20 Letha Vasquez, Community Health Worker 07/05/20 09/03/20 [place] documented as of this encounter
--- OUTSIDE RECORDS SUMMARY | 2022-09-04 16:42 | XMS_ITS | Encounter Summary ---
:1960 Author Organization [place] Address [address] [place] [address] Care Team Providers Name Role Phone Teresita Garcia MD Primary Care Provider Teresita Garcia MD Unavailable Reason for Visit Reason Onset Date Comments Forms 09/12/2020 Physician Order Encounter Details Date Type Department Care Team Description 09/12/2020 Telephone [facility] Teresita Garcia MD Forms (Physician Order) Clinic [phone] [place] [phone] Social History Tobacco Use Types Packs/Day [...] do you attend mandaen or Not asked sikhism services? Do you [...] Form completed and faxed, 09/12/2020 Jackie Brito/AWILDA S SUPPORT REPRESENTATIVE Telephone Encounter - Rosy Brito - 09/12/2020 9:16 AM CST Received 2 page fax for Physician Order for Dr Garcia to complete. Form in the in- basket at [employer] [facility] in AA's folder. S SUPPORT REPRESENTATIVE documented in this encounter Plan of Treatment Not on filedocumented as of this encounter Visit Diagnoses Not on filedocumented in this encounter Additional Health Concerns Assessment Noted Time PHQ-9 Depression Total Score: 8 06/26/2020 12:57 PM CD T documented as of this encounter Care Teams Sign Artist Relationship Specialty Start Date End Date Teresita Garcia MD PCP - General Family Practice 01/22/11 [address] [place] [address] Teresita Garcia MD Assigned PCP 11/16/16 12/28/21 [address] [place] [address] documented as of this encounter
--- OUTSIDE RECORDS SUMMARY | 2022-09-04 16:42 | XMS_ITS | Encounter Summary ---
:1960 Author Organization [place] Address [address] [place] [address] Care Team Providers Name Role Phone Teresita Garcia MD Primary Care Provider Teresita Garcia MD Unavailable Dolores Caputo DRILLING PLANT OPERATOR Unavailable Letha Vasquez MA Unavailable Encounter Details Date Type Department Care Team Description 07/30/2020 Medical Correspondence [facility] Scan, PLAN OF CARE [facility] Non-Provider [facility] [address] [place] [phone] Social History Tobacco Use Types Packs/Day [...] do you attend hinduism or Not asked catholic services? Do you [...] as of this encounter Care Teams Test Preparation Tutor Relationship Specialty Start Date End Date Teresita Garcia MD PCP - General Family Practice 01/22/11 [address] [place], [place] [phone] Teresita Garcia MD Assigned PCP 11/16/16 12/28/21 [address] [place], [place] [phone] Dolores Caputo, DRILLING PLANT OPERATOR Lead Invertebrate Paleontologist Primary Care - CC 06/27/20 09/03/20 Letha Vasquez, Community Health Worker 07/05/20 09/03/20 [place] documented as of this encounter
--- OUTSIDE RECORDS SUMMARY | 2022-09-04 16:42 | XMS_ITS | Encounter Summary ---
:1960 Author Organization [place] Address [address] [facility] [place] [address] Care Team Providers Name Role Phone Teresita Garcia MD Primary Care Provider Teresita Garcia MD Unavailable Dolores Caputo WELDER FITTER APPRENTICE Unavailable Letha Vasquez MA Unavailable Reason for Visit Reason Onset Date Comments Forms 07/19/2020 Additional Orders-Ot her Encounter Details Date Type Department Care Team Description 07/19/2020 Telephone [facility] Teresita Garcia MD Forms (Additional Clinic [address] Orders-Other) [address] [place] [address] [phone] Social History Tobacco Use Types Packs/Day [...] do you attend scientologist or Not asked hinduism services? Do you [...] in-basket at [facility] in AA's folder. documented in this encounter [...] MD PCP - General Family Practice 01/22/11 [address] [place] [address] Teresita Garcia MD Assigned PCP 11/16/16 12/28/21 [address] [place] [address] Dolores Caputo, WELDER FITTER APPRENTICE Lead Drum Loader And Unloader Primary Care - CC 06/27/20 09/03/20 Letha Vasquez, Community Health Worker 07/05/20 09/03/20 JAY JAY documented as of this encounter
--- OUTSIDE RECORDS SUMMARY | 2022-09-04 16:42 | XMS_ITS | Encounter Summary ---
:1960 Author Organization [place] Address [facility] [place] [address] Care Team Providers Name Role Phone Teresita Garcia MD Primary Care Provider Teresita Garcia MD Unavailable Reason for Visit Reason Onset Date Comments Forms 10/01/2020 Plan of Care Encounter Details Date Type Department Care Team Description 10/01/2020 Telephone [facility] Roel Garcia MD Forms (Plan of Care) [phone] [place] [phone] Social History Tobacco Use Types Packs/Day Years [...] do you attend presybeterian or Not asked zoroastrianism services? Do you [...] Form completed and faxed, 10/02/2020 Jackie Brito/AWILDA ER Telephone Encounter - Rosy Brito - 10/01/2020 9:58 AM CST Received 6 page fax for Plan of Care for Dr Garcia to complete. Form in the in- basket at [facility] in 's folder. ER documented in this encounter Plan of Treatment Not on filedocumented as of this encounter Visit Diagnoses Not on filedocumented in this encounter Additional Health Concerns Assessment Noted Time PHQ-9 Depression Total Score: 8 06/26/2020 12:57 PM CD T documented as of this encounter Care Teams Corporate Real Estate Manager Relationship Specialty Start Date End Date Teresita Garcia MD PCP - General Family Practice 01/22/11 [address] [place] [address] Teresita Garcia MD Assigned PCP 11/16/16 12/28/21 [address] [place] [address] documented as of this encounter
--- OUTSIDE RECORDS SUMMARY | 2022-09-04 16:42 | XMS_ITS | Encounter Summary ---
:1960 Author Organization [place] Address [address] [place] [address] Care Team Providers Name Role Phone Teresita Garcia MD Primary Care Provider Teresita Garcia MD Unavailable Reason for Referral Care Coordination (Routine) - Closed Specialty Diagnoses / Procedures Referred By Contact Refer red To Contact Diagnoses Encounter for Medicare [place] [address] [place] [address] Referral ID Status Reason Start Date Expiration Date Visits Requ ested Visits Authorized [id number] Closed 06/26/2020 06/26/2021 1 1 atient Education (Routine) - Closed Specialty Diagnoses / Procedures Referred By Contact Refer red To Contact Diagnoses Advanced directives, counseling/discussion Teresita Garcia MD [facility] [address] [address] Phone: Referral ID Status Reason Start Date Expiration Date Visits Requ ested Visits Authorized [id number] Closed 06/26/2020 06/26/2021 1 1 Reason for Visit Reason Comments Wellness Visit Encounter Details Date Type Department Care Team Description 06/26/2020 Virtual Visit [facility] Teresita Garcia MD Advanced directives, counseling/discussi on (Primary Dx); Clinic [place] [address] [address]ONAN Need for shingles vaccine; [address] [place], [place] Encounter for Medicare gatoua l wellness exam; [place] [address] MS (multiple sclerosis) (H) [phone] Social History [...] do you attend baptist or Not asked sabianism services? Do you [...] 2-3 years. Lab review: No concerns per financial data analyst MyChart Patient is active on MyChart. although does not appear that he has ever used Specialty Visits - Multiple [facility] home care and visits available in [facility] for review, [place] [facility] 04/12/2020. Neurology 05/08/2020, Cystoscopy 06/19/2020 bladder stones Patient preferred phone number: [phone] Health Maintenance Due Topic Date Due ??? ADVANCE CARE PLANNING 1960 ??? MEDICARE ANNUAL WELLNESS VISIT 12/15/1979 ??? ZOSTER IMMUNIZATION (1 of 2) 12/15/2011 ??? PHQ-9 06/03/2020 Blanca Choi, Registered Nurse, MEG (Patient Advocate Liason) [facility] [phone] Teresita Garcia MD - 06/26/2020 1:00 PM [...] be resent to: Text to cell phone: [phone] Will anyone else be joining your video [...] visit; need for additional assessment in future [id number] visit Do you have sleep apnea, excessive [...] versa, the whole house is equipped with [employer] device so if he jordy the floor, he can call throw [employer] device. In regards to his mood, he [...] following up with Neurology. Teresita Garcia MD [facility] Video-Visit Details Type of service: Video Visit Video End Time:1:33 Originating Location (pt. Location): Home Distant Location (provider location): [facility] Platform used for Video Visit: Ty [...] documented as of this encounter Care Teams Press Operator Assistant Relationship Specialty Start Date End Date Teresita Garcia MD PCP - General Family Practice 01/22/11 [address] [place] [address] Teresita Garcia MD Assigned PCP 11/16/16 12/28/21 [address] [place] [address] documented as of this encounter
--- OUTSIDE RECORDS SUMMARY | 2022-09-04 16:42 | XMS_ITS | Encounter Summary ---
:1960 Author Organization [place] Address [address] [facility] [place] [address] Care Team Providers Name Role Phone Teresita Garcia MD Primary Care Provider Teresita Garcia MD Unavailable Reason for Visit Reason Onset Date Comments Forms 10/01/2020 Physician Orders Encounter Details Date Type Department Care Team Description 10/01/2020 Telephone [facility] Teresita Garcia MD Forms ([facility] [place] [id number] [place] [address] Orders) [address] [place], [place] [phone] Social History Tobacco Use Types Packs/Day [...] do you attend jainism or Not asked anabaptism services? Do you [...] Form completed and faxed, 10/02/2020 Jackie Brito/AWILDA NERATOR PLANT LABORER Telephone Encounter - Rosy Brito - 10/01/2020 10:02 AM CST Received 2 page fax for Physician Orders for Dr Garcia to complete. Form in the in-basket at [facility] in 's folder. NERATOR PLANT LABORER documented in this encounter Plan of Treatment Not on filedocumented as of this encounter Visit Diagnoses Not on filedocumented in this encounter Additional Health Concerns Assessment Noted Time PHQ-9 Depression Total Score: 8 06/26/2020 12:57 PM CD T documented as of this encounter Care Teams Cabinet Mounter Relationship Specialty Start Date End Date Teresita Garcia MD PCP - General Family Practice 01/22/11 [address] [place] [address] Teresita Garcia MD Assigned PCP 11/16/16 12/28/21 [address] [place] [address] documented as of this encounter
--- OUTSIDE RECORDS SUMMARY | 2022-09-04 16:42 | XMS_ITS | Encounter Summary ---
:1960 Author Organization [place] Address [address] [facility] [place] [address] Care Team Providers Name Role Phone Teresita Garcia MD Primary Care Provider Teresita Garcia MD Unavailable Reason for Visit Reason Onset Date Comments Home Care/Hospice 11/13/2020 orders Encounter Details Date Type Department Care Team Description 11/13/2020 Telephone [facility] Teresita Garcia MD Home Care/Hospice [facility] [place] [id number] [place] [address] (orders) [address] [place] [phone] Social History Tobacco Use Types [...] do you attend gnosticist or Not asked restorationist services? Do you [...] PM CST Signed form faxed. [facility] Dean N DIR Telephone Encounter - Bella Harden - 11/14/2020 9:01 AM CST Received 1 page fax from [facility] for orders. Placed in AA's folder. Please fax completed form to [phone]. [facility] Dean N DIR Telephone Encounter - Karen Covarrubias RN - 11/13/2020 1:24 PM CST Homecare Orders Requested: Jacqueline at from [facility] called to request orders for the following Services: Home Health Aide for:2 times a week with shower and group home for catheter changes Homecare agency to fax orders over for review and signature of PCP, verbal orders provided, FYI to AA Karen Covarrubias RN, BSN Message handled by CLINIC NURSE. N DIR documented in this encounter Plan of Treatment Not on filedocumented as of this encounter Visit Diagnoses Not on filedocumented in this encounter Additional Health Concerns Assessment Noted Time PHQ-9 Depression Total Score: 8 06/26/2020 12:57 PM CD T documented as of this encounter Care Teams Coder Relationship Specialty Start Date End Date Teresita Garcia MD PCP - General Family Practice 01/22/11 [address] [place] [address] Teresita Garcia MD Assigned PCP 11/16/16 12/28/21 [address] [place] [address] documented as of this encounter
--- OUTSIDE RECORDS SUMMARY | 2022-09-04 16:43 | XMS_ITS | Encounter Summary ---
:1960 Author Organization [place] Address [address] [facility] [place] [address] Care Team Providers Name Role Phone Teresita Garcia MD Primary Care Provider Teresita Garcia MD Unavailable Reason for Visit Reason Onset Date Comments Orders 03/05/2020 [facility] Encounter Details Date Type Department Care Team Description 03/05/2020 Documentation Only [facility] Sedrick Giron O rders ([facility]) [address] [place] [address], [address] [place] [address] Social History Tobacco Use Types Packs/Day [...] do you attend sikhism or Not asked lutheran services? Do you [...] PM CDT Signed forms faxed. .Malena Hankins 4Th Grade Math Teacher documented in this encounter Plan of Treatment Not on filedocumented as of this encounter Visit Diagnoses Not on filedocumented in this encounter Additional Health Concerns Assessment Noted Time PHQ-9 Depression Total Score: 8 12/02/2019 2:02 PM CHARGEBACK ANALYST documented as of this encounter Care Teams Business Analyst Relationship Specialty Start Date End Date Teresita Garcia MD PCP - General Family Practice 01/22/11 [address] [place] [address] Teresita Garcia MD Assigned PCP 11/16/16 12/28/21 [address] [place], [place] [id number] documented as of this encounter
--- OUTSIDE RECORDS SUMMARY | 2022-09-04 16:43 | XMS_ITS | Encounter Summary ---
:1960 Author Organization [place] Address [address] [facility] [place] [address] Care Team Providers Name Role Phone Teresita Garcia MD Primary Care Provider Teresita Garcia MD Unavailable Encounter Details Date Type Department Care Team Description 03/04/2020 [facility] [place] Scan, HOME HEALTH VISIT Health Info Mgmt Non-Provider [facility] [address] [place] [address] Social History Tobacco Use Types Packs/Day [...] do you attend amish or Not asked amish services? Do you [...] Score: 8 12/02/2019 2:02 PM CUSTOMER SERVICE TELLER documented as of this encounter Care Teams Concrete Bucket Loader Relationship Specialty Start Date End Date Teresita Garcia MD PCP - General Family Practice 01/22/11 [address] [place] [address] Teresita Garcia MD Assigned PCP 11/16/16 12/28/21 [address] [place], [place] [id number] documented as of this encounter
--- OUTSIDE RECORDS SUMMARY | 2022-09-04 16:43 | XMS_ITS | Encounter Summary ---
:1960 Author Organization [place] Address [address] [facility] [place] [address] Care Team Providers Name Role Phone Teresita [...] do you attend baptism or Not asked mosque services? Do you [...] Depression Total Score: 8 12/02/2019 2:02 PM PERINATAL EDUCATOR documented as of this encounter Care Teams Behavioral Services Tech Relationship Specialty Start Date End Date Teresita Garcia MD PCP - General Family Practice 01/22/11 [address] [place] [address] Teresita Garcia MD Assigned PCP 11/16/16 12/28/21 [address] [place], [place] [address] documented as of this encounter
--- OUTSIDE RECORDS SUMMARY | 2022-09-04 16:43 | XMS_ITS | Encounter Summary ---
:1960 Author Organization [place] Address [facility] [place] [address] Care Team Providers Name Role Phone Teresita Garcia MD Primary Care Provider Teresita Garcia MD Unavailable Reason for Visit Reason Onset Date Comments Forms 05/18/2020 Orders Encounter Details Date Type Department Care Team Description 05/18/2020 Telephone [facility] Roel Garcia MD Forms (Orders) [address] [place] [address] [place] [address] [phone] Social History Tobacco Use Types Packs/Day Years [...] do you attend muslim or Not asked restorationism services? Do you [...] encounter Miscellaneous Notes Telephone Encounter - Brooklyn Odgen - 05/18/2020 9:58 AM CDT Reason for [...] listed as a contact on the form?: [phone] Additional comments: please sign and date and fax to [phone] Call taken on 05/18/2020 at 9:59 AM by Brooklyn Ogden documented in this encounter Plan of Treatment Not on filedocumented as of this encounter Visit Diagnoses Not on filedocumented in this encounter Additional Health Concerns Assessment Noted Time PHQ-9 Depression Total Score: 8 12/02/2019 2:02 PM ASTRONAUT MISSION SPECIALIST documented as of this encounter Care Teams Cost Control Supervisor Relationship Specialty Start Date End Date Teresita Garcia MD PCP - General Family Practice 01/22/11 [address] [place] [address] Teresiat Garcia MD Assigned PCP 11/16/16 12/28/21 [address] [place] [address] documented as of this encounter
--- OUTSIDE RECORDS SUMMARY | 2022-09-04 16:43 | XMS_ITS | Encounter Summary ---
:1960 Author Organization [place] Address [facility] [place] [address] Care Team Providers Name Role Phone Teresita Garcia MD Primary Care Provider Teresita Garcia MD Unavailable Reason for Visit Reason Onset Date Comments Forms 05/25/2020 orders Encounter Details Date Type Department Care Team Description 05/25/2020 Telephone [facility] Roel Garcia MD Forms (orders) [phone] [place] [address] [place] [address] [phone] Social History Tobacco Use Types Packs/Day Years [...] do you attend christianity or Not asked catholic services? Do you [...] 05/25/2020 1:26 PM CDT Faxed Brooklyn Ogden/ Sealer Sander Telephone Encounter - Brooklyn Ogden - 05/25/2020 [...] clinic location was the form placed at?: [facility] Where the form was placed: Dr Garcia Box/Folder What number is listed as a contact on the form?: [phone] Additional comments: please sign / date and fax to [phone] Call taken on 05/25/2020 at 9:12 AM by Brooklyn Ogden documented in this encounter Plan of Treatment Not on filedocumented as of this encounter Visit Diagnoses Not on filedocumented in this encounter Additional Health Concerns Assessment Noted Time PHQ-9 Depression Total Score: 8 12/02/2019 2:02 PM MANAGER ETL documented as of this encounter Care Teams Laborer [place] Relationship Specialty Start Date End Date Teresita Garcia MD PCP - General Family Practice 01/22/11 [address] [place] [address] Teresita Garcia MD Assigned PCP 11/16/16 12/28/21 [address] [place] [address] documented as of this encounter
--- OUTSIDE RECORDS SUMMARY | 2022-09-04 16:43 | XMS_ITS | Encounter Summary ---
:1960 Author Organization [place] Address Count includes the [facility] [place] [address] Care Team Providers Name Role Phone Teresita Garcia MD Primary Care Provider Teresita Garcia MD Unavailable Reason for Visit Reason Onset Date Comments Forms 02/14/2020 Plan of Care Encounter Details Date Type Department Care Team Description 02/14/2020 Telephone [facility] Roel Garcia MD Forms (Plan of Care) [id number] [place] [address] [phone] Social History Tobacco Use Types Packs/Day Years [...] do you attend jew or Not asked samaritan services? Do you [...] Form in the in- basket at [facility] in 's folder. documented in this encounter Plan of Treatment Not on filedocumented as of this encounter Visit Diagnoses Not on filedocumented in this encounter Additional Health Concerns Assessment Noted Time PHQ-9 Depression Total Score: 8 12/02/2019 2:02 PM COMMODITY MANAGEMENT SPECIALIST documented as of this encounter Care Teams Animal Technician Relationship Specialty Start Date End Date Teresita Garcia MD PCP - General Family Practice 01/22/11 [address] [place], [place] [phone] Teresita Garcia MD Assigned PCP 11/16/16 12/28/21 [address] [place] [address] documented as of this encounter
--- OUTSIDE RECORDS SUMMARY | 2022-09-04 16:43 | XMS_ITS | Encounter Summary ---
:1960 Author Organization [place] Address [address] [facility] [place] [address] Care Team Providers Name Role Phone Teresita Garcia MD Primary Care Provider Teresita Garcia MD Unavailable Dolores Caputo INSPECTOR WATCH TRAIN Unavailable Letha Vasquez MA Unavailable Encounter Details Date Type Department Care Team Description 05/28/2020 Ambulatory - [facility] [place] Dax Menon Encounte r [facility] OR screening for other [address] [place] [address] viral diseases [place], [place] UROLOGY [address] [place] [address] [address] Social History Tobacco Use Types [...] do you attend anabaptist or Not asked rastafari services? Do you [...] 1:31 PM Encounter Date: 05/28/2020 Status: Signed Sloop Captain: Camila Sorto RN (Registered Nurse) Addended by: CAMILA SORTO on: 05/28/2020 01:31 PM Modules accepted: Orders documented in this encounter Plan of Treatment Not on filedocumented as of this encounter Visit Diagnoses Diagnosis Encounter for screening for other viral diseases documented in this encounter Additional Health Concerns Assessment Noted Time PHQ-9 Depression Total Score: 8 12/02/2019 2:02 PM ELECTRONICS ENGINEERING PROFESSOR documented as of this encounter Care Teams Jammer Operator Relationship Specialty Start Date End Date Teresita Garcia MD PCP - General Family Practice 01/22/11 [address] [place] [address] Teresita Garcia MD Assigned PCP 11/16/16 12/28/21 [address] [place] [address] Dolores Caputo LSW Lead Technology Instructor Primary Care - CC 06/27/20 09/03/20 Letha Vasquez, Community Health Worker 07/05/20 09/03/20 [place] documented as of this encounter
--- OUTSIDE RECORDS SUMMARY | 2022-09-04 16:43 | XMS_ITS | Encounter Summary ---
:1960 Author Organization [place] Address [address] [facility] [place] [address] Care Team Providers Name Role Phone Teresita Garcia MD Primary Care Provider Teresita Garcia MD Unavailable Reason for Visit Reason Onset Date Comments Pre-Op Exam Imm/Inj 06/12/2020 Flu Shot Encounter Details Date Type Department Care Team Description 06/12/2020 Office Visit [facility] Albina Andujar eneral physical exam (Primary Dx); [facility] [place] DEVORAH Quiñonez Bladder stone; [id number] [place] [address] Need for prophylactic vaccin ation and inoculation against influenza [place], [place] [address] [address] [place], [place] [phone] [address] Social History Tobacco Use Types Packs/Day [...] do you attend cheondoism or Not asked holiness services? Do you [...] list of medicines, including herbal treatments and ulmw-lqh-lplqels drugs ?? Whether the patient has a [...] pre-approve the surgery. (If no insurance, call [phone].) ?? Call your surgeon's clinic if there's [...] of your health care provider. Copyright ?? 3246-6229 [facility]. All rights reserved. Clinically reviewed by Zoie Davis MD. [employer]ers App [id number] - REV 04/15. Preparing for Your Surgery [...] list of medicines, including herbal treatments and sizr-fpq-ksffdpo drugs ?? Whether the patient has a [...] pre-approve the surgery. (If no insurance, call [phone].) ?? Call your surgeon's clinic if there's [...] of your health care provider. Copyright ?? [id number] [facility]. All rights reserved. Clinically reviewed by Zoie Dvais MD. Peers App [id number] - REV 04/15. Preparing for Your Surgery [...] list of medicines, including herbal treatments and cqbq-kof-szzwmou drugs ?? Whether the patient has a [...] pre-approve the surgery. (If no insurance, call [phone].) ?? Call your surgeon's clinic if there's [...] of your health care provider. Copyright ?? [id number] [employer]. All rights reserved. Clinically reviewed by Zoie Davis MD. PowWowHRworks [id number] - REV 04/15. Preparing for Your Surgery [...] list of medicines, including herbal treatments and dvpn-hsx-urmuiuv drugs ?? Whether the patient has a [...] pre-approve the surgery. (If no insurance, call [phone].) ?? Call your surgeon's clinic if there's [...] of your health care provider. Copyright ?? [id number] [facility]. All rights reserved. Clinically reviewed by Zoie Davis MD. Peers App [id number] - REV 04/15. documented in this encounter Progress Notes Albina Andujar PA-C - 06/12/2020 10:00 AM CDT [address] [phone] Dept: [phone] PRE-OP EVALUATION: Today's date: 06/12/2020 Dejuan Rodriguez (: 1960) presents for pre-operative evaluation assessment as requested byDr. Dax Menon. He requires evaluation and anesthesia risk assessment prior to undergoing surgery/procedure for treatment of CYSTOSCOPY CYSTOLITHOLAPAXY . Proposed Surgery/ Procedure: CYSTOSCOPY CYSTOLITHOLAPAXY Date of Surgery/ Procedure: 06/19/20 Time of Surgery/ Procedure: Hospital/Surgical Facility: [facility] Fax Number: Note does not need to be faxed, will be available electronically in [employer]. Primary Physician: Teresita Garcia Type of [...] process. Provider to review and confirm.) ??? Xfaw-Bputr-Hepjysn disease 05/14/2011 Priority: Medium ??? Atopic rhinitis [...] (H) sees neurology at [facility] ??? Osteoporosis 01/20/2017 In the spine. ??? [...] cardiovascular risks for perioperative complications such as (VT, PE, VFib and 3?? AV Block): No [...] - 06/12/2020 10:00 AM CDT Faxed to [phone] Chasity Ferrari RMA documented in this encounter [...] Depression Total Score: 8 12/02/2019 2:02 PM NEWSPAPER REPORTER documented as of this encounter Care Teams Manager Appointment Relationship Specialty Start Date End Date Teresita Garcia MD PCP - General Family Practice 01/22/11 [address] [place], [place] [phone] Teresita Garcia MD Assigned PCP 11/16/16 12/28/21 [address] [place] [address] documented as of this encounter
--- OUTSIDE RECORDS SUMMARY | 2022-09-04 16:43 | XMS_ITS | Encounter Summary ---
:1960 Author Organization [place] Address [address] [facility] [place] [address] Care Team Providers Name Role Phone Teresita Garcia MD Primary Care Provider Teresita Garcia MD Unavailable Encounter Details Date Type Department Care Team Description 04/10/2020 Medical Correspondence [facility] Scan, PLAN OF CARE [employer] [facility] Non-Provider HOME HEALTH /HOSPICE Srvcs [address] [place] [address] Social History Tobacco Use Types [...] do you attend yazdanism or Not asked druze services? Do you [...] Depression Total Score: 8 12/02/2019 2:02 PM LEAD PYTHON DEVELOPER documented as of this encounter Care Teams Personal Lines Sales Rep Relationship Specialty Start Date End Date Teresita Garcia MD PCP - General Family Practice 01/22/11 [address] [place], [place] [phone] Teresita Garcia MD Assigned PCP 11/16/16 12/28/21 [address] [place], [place] [address] documented as of this encounter
--- OUTSIDE RECORDS SUMMARY | 2022-09-04 16:43 | XMS_ITS | Encounter Summary ---
:1960 Author Organization [place] Address [address] [place] [address] Care Team Providers Name Role Phone Teresita Garcia MD Primary Care Provider Teresita Garcia MD Unavailable Encounter Details Date Type Department Care Team Description 03/15/2020 Medical Correspondence [facility] Non-Provider COMMUNICATI ON NOTE Srvcs [facility] [address] [facility] [address] Social History Tobacco Use Types [...] do you attend restorationism or Not asked sabianism services? Do you [...] Depression Total Score: 8 12/02/2019 2:02 PM PRODUCT MANAGEMENT MANAGER documented as of this encounter Care Teams Yeast Stacker Relationship Specialty Start Date End Date Teresita Garcia MD PCP - General Family Practice 01/22/11 [address] [place], [place] [phone] Teresita Garcia MD Assigned PCP 11/16/16 12/28/21 [address] [place], [place] [phone] documented as of this encounter
--- OUTSIDE RECORDS SUMMARY | 2022-09-04 16:43 | XMS_ITS | Encounter Summary ---
:1960 Author Organization [place] Address [facility] [place] [address] Care Team Providers Name Role Phone Teresita Garcia MD Primary Care Provider Teresita Garcia MD Unavailable Reason for Visit Reason Onset Date Comments Results 04/06/2020 Encounter Details Date Type Department Care Team Description 04/06/2020 Telephone [facility] Roel Garcia MD Results [place] [address] [facility] [address] [place], [place] [address] [place] [address] 24[address]283 [phone] Social History Tobacco Use Types Packs/Day Years [...] do you attend synagogue or Not asked adventist services? Do you [...] Depression Total Score: 8 12/02/2019 2:02 PM DIESEL CRANE OPERATOR documented as of this encounter Care Teams Resident Care Manager Rn Relationship Specialty Start Date End Date Teresita Garcia MD PCP - General Family Practice 01/22/11 [address] [place] [address] Treesita Garcia MD Assigned PCP 11/16/16 12/28/21 [address] [place] [address] documented as of this encounter
--- OUTSIDE RECORDS SUMMARY | 2022-09-04 16:43 | XMS_ITS | Encounter Summary ---
:1960 Author Organization [place] Address [address] [facility] [place] [address] Care Team Providers Name Role Phone Teresita Garcia MD Primary Care Provider Teresita Garcia MD Unavailable Reason for Visit Reason Onset Date Comments Forms 03/12/2020 Orders / Two forms Encounter Details Date Type Department Care Team Description 03/12/2020 Telephone [facility] Teresita Garcia MD Forms (Orders / Two Clinic [place] [address] [place] [address] forms) [id number] [place] [id number] Social History Tobacco Use Types Packs/Day [...] do you attend uatsdin or Not asked presybeterian services? Do you [...] by Kiersten De Souza MD. Faxed to [phone]. Carolynn Eng. Aircraft Riveter Telephone Encounter - Shaggy Patelparvez [place] - 03/12/2020 11:51 AM CDT Reason for call: Two forms / Orders Our goal is to have forms completed within 72 hours, however some forms may require a visit or additional information. Who is the form from? Home care Where did the form come from? form was faxed in What clinic location was the form placed at? [facility] Where was the form placed? [facility] What number is listed as a contact on the form? [phone] Phone call message - patient request for a letter, form or note: Date needed: within one week Please fax to [phone] Has the patient signed a consent form for release of information? Not Applicable Type of letter, form or note: Orders Phone number to reach patient: Other phone number: [phone] documented in this encounter Plan of Treatment Not on filedocumented as of this encounter Visit Diagnoses Not on filedocumented in this encounter Additional Health Concerns Assessment Noted Time PHQ-9 Depression Total Score: 8 12/02/2019 2:02 PM LOCOMOTIVE MECHANIC documented as of this encounter Care Teams Media Reporter Relationship Specialty Start Date End Date Teresita Garcia MD PCP - General Family Practice 01/22/11 [address] [place] [address] Teresita Garcia MD Assigned PCP 11/16/16 12/28/21 [address] [place] [address] documented as of this encounter
--- OUTSIDE RECORDS SUMMARY | 2022-09-04 16:43 | XMS_ITS | Encounter Summary ---
:1960 Author Organization [place] Address Critical access hospital0 [facility] [place] [address] Care Team Providers Name Role Phone Teresita Garcia MD Primary Care Provider Teresita Garcia MD Unavailable Dolores Caputo TRAINING ASSISTANT Unavailable Letha Vasquez MA Unavailable Encounter Details Date Type Department Care Team Description 06/15/2020 Ambulatory - [facility] Estefani Figueroa screeni for other Laboratory viral diseases [address] [facility], [address] [place] [address] Social History Tobacco Use Types [...] do you attend adventist or Not asked amish services? Do you [...] Depression Total Score: 8 12/02/2019 2:02 PM OPERATOR WEAPON LOCATING RADAR documented as of this encounter Care Teams Director Surface Transportation Relationship Specialty Start Date End Date Teresita Garcia MD PCP - General Family Practice 01/22/11 [address] [place], [place] [phone] Teresita Garcia MD Assigned PCP 11/16/16 12/28/21 [address] [place], [place] [phone] Dolores Caputo, TRAINING ASSISTANT Lead Cashier General Primary Care - CC 06/27/20 09/03/20 Letha Vasquez, Community Health Worker 07/05/20 09/03/20 JAY JAY documented as of this encounter
--- OUTSIDE RECORDS SUMMARY | 2022-09-04 16:43 | XMS_ITS | Encounter Summary ---
:1960 Author Organization [place] Address [address] [place] [address]. [place] [address] Care Team Providers Name Role Phone Teresita Garcia MD Primary Care Provider Teresita Garcia MD Unavailable Encounter Details Date Type Department Care Team Description 05/19/2020 Medical Correspondence [facility] Scan, PLAN OF CARE Health Info Mgmt Non-Provider 05/19/20 - 1 Srs [facility] [address] [place] [address]/[place] [address] Social History Tobacco Use Types [...] do you attend hinduism or Not asked congregation services? Do you [...] Depression Total Score: 8 12/02/2019 2:02 PM CERTIFIED SCRUM MASTER documented as of this encounter Care Teams High Pressure Boiler Operator Relationship Specialty Start Date End Date Teresita Garcia MD PCP - General Family Practice 01/22/11 [address] [place], [place] [phone] Teresita Garcia MD Assigned PCP 11/16/16 12/28/21 [address] [place] [address] documented as of this encounter
--- OUTSIDE RECORDS SUMMARY | 2022-09-04 16:43 | XMS_ITS | Encounter Summary ---
:1960 Author Organization [place] Address [address] [facility] [place] [address] Care Team Providers Name Role Phone Teresita Garcia MD Primary Care Provider Teresita Garcia MD Unavailable Dolores Caputo INFORMATION TECHNOLOGY ACCOUNT MANAGER Unavailable Letha Vasquez MA Unavailable Encounter Details Date Type Department Care Team Description 06/19/2020 [facility] UROLOGY [address] [place] [phone] [place], [place] [phone] (Wo rk) Social History Tobacco Use [...] you attend jehovah's witness or Not asked holiness services? Do you [...] Depression Total Score: 8 12/02/2019 2:02 PM BEAVER TRAPPER documented as of this encounter Care Teams Sample Tailor Relationship Specialty Start Date End Date Teresita Garcia MD PCP - General Family Practice 01/22/11 [address] [place], [place] [phone] Teresita Garcia MD Assigned PCP 11/16/16 12/28/21 [address] [place] [address] Dolores Caputo, INFORMATION TECHNOLOGY ACCOUNT MANAGER Lead Warehouse Guard Primary Care - CC 06/27/20 09/03/20 Letha Vasquez, Community Health Worker 07/05/20 09/03/20 MA documented as of this encounter
--- OUTSIDE RECORDS SUMMARY | 2022-09-04 16:43 | XMS_ITS | Encounter Summary ---
:1960 Author Organization [place] Address [address] [facility] [place] [address] Care Team Providers Name Role Phone Teresita Garcia MD Primary Care Provider Teresita Garcia MD Unavailable Dolores Caputo SYSTEMS PROGRAMMER ANALYST Unavailable Letha Vasquez MA Unavailable Encounter Details Date Type Department Care Team Description 06/17/2020 Communication - [facility] Scheduling JERRI Diaz [address] [place] [address] Social History Tobacco Use Types [...] do you attend tenriism or Not asked episcopalian services? Do you [...] Total Score: 8 12/02/2019 2:02 PM COMMERCIAL LINES ASSISTANT documented as of this encounter Care Teams Ornamental Metal Erector Apprentice Relationship Specialty Start Date End Date Teresita Garcia MD PCP - General Family Practice 01/22/11 [address] [place], [place] [phone] Teresita Garcia MD Assigned PCP 11/16/16 12/28/21 [address] [place], [place] [phone] Dolores Caputo, SYSTEMS PROGRAMMER ANALYST Lead Bat Carrier Primary Care - CC 06/27/20 09/03/20 Letha Vasquez, Community Health Worker 07/05/20 09/03/20 MA documented as of this encounter
--- OUTSIDE RECORDS SUMMARY | 2022-09-04 16:43 | XMS_ITS | Encounter Summary ---
:1960 Author Organization [place] Address [address] [facility] [place] [address] Care Team Providers Name Role Phone Teresita Garcia MD Primary Care Provider Teresita Garcia MD Unavailable Encounter Details Date Type Department Care Team Description 03/20/2020 Medical Correspondence [facility] Scan, PLAN OF CARE [facility] Non-Provider HOME HEALTH /HOSPICE Srvcs [address] [place] [address] Social History Tobacco Use Types [...] do you attend adventism or Not asked nondenominational services? Do you [...] Depression Total Score: 8 12/02/2019 2:02 PM SOCIOCULTURAL ANTHROPOLOGY PROFESSOR documented as of this encounter Care Teams Software Specialist Relationship Specialty Start Date End Date Teresita Garcia MD PCP - General Family Practice 01/22/11 [address] [place], [place] [phone] Teresita Garcia MD Assigned PCP 11/16/16 12/28/21 [address] [place], [place] [phone] documented as of this encounter
--- OUTSIDE RECORDS SUMMARY | 2022-09-04 16:43 | XMS_ITS | Encounter Summary ---
:1960 Author Organization [place] Address [address] [facility] [place] [address] Care Team Providers Name Role Phone Teresita Garcia MD Primary Care Provider Teresita Garcia MD Unavailable Dolores Caputo GEOTECHNICIAN Unavailable Letha Vasquez MA Unavailable Audrey Hickman MD Unavailable [phone] Reason for Visit Reason Onset Date Comments Forms 05/23/2020 [facility] Encounter Details Date Type Department Care Team Description 05/23/2020 [facility] Teresita Garcia MD Forms ([address]) [address] [place] [phone] Social History Tobacco Use Types Packs/Day Years [...] do you attend judaism or Not asked yarsanism services? Do you [...] PM CDT Recd 6 page fax from [facility]. Please sign Plan of Care orders and fax to [phone]. Form in AA folder at [place]. Malena Hankins Organic Gardening Teacher documented in this encounter Plan of Treatment Not on filedocumented as of this encounter Visit Diagnoses Not on filedocumented in this encounter Additional Health Concerns Infection Onset Date Last Indicated Resolved Time Rule Out C-difficile 09/01/2022 09/01/2022 Assessment Noted Time PHQ-9 Depression Total Score: 8 12/02/2019 2:02 PM SENIOR ELECTRONICS TECHNICIAN documented as of this encounter Care Teams Integrated Marketing Intern Relationship Specialty Start Date End Date Teresita Garcia MD PCP - General Family Practice 01/22/11 [address] [place] [address] Teresita Garcia MD Assigned PCP 11/16/16 12/28/21 [address] [place] [address] Dolores Caputo, GEOTECHNICIAN Lead Nuclear Physics Professor Primary Care - CC 06/27/20 09/03/20 Letha Vasquez, Community Health Worker 07/05/20 09/03/20 [place] Audrey Hickman Assigned PCP 12/29/21 MD Bernie [address] [place] [address] documented as of this encounter
--- OUTSIDE RECORDS SUMMARY | 2022-09-04 16:43 | XMS_ITS | Encounter Summary ---
:1960 Author Organization [place] Address [address] [facility] [place] [address] Care Team Providers Name Role Phone Teresita Garcia MD Primary Care Provider Teresita Garcia MD Unavailable Encounter Details Date Type Department Care Team Description 06/13/2020 Medical Correspondence [facility] Scan, PLAN OF CARE [facility] Non-Provider [facility] [address] [place] [address] Social History Tobacco Use Types [...] do you attend protestant or Not asked mu-ism services? Do you [...] Depression Total Score: 8 12/02/2019 2:02 PM CODER documented as of this encounter Care Teams Vehicle Monitor Technician Relationship Specialty Start Date End Date Teresita Garcia MD PCP - General Family Practice 01/22/11 [address] [place], [place] [phone] Teresita Garcia MD Assigned PCP 11/16/16 12/28/21 [address] [place] [address] documented as of this encounter
--- OUTSIDE RECORDS SUMMARY | 2022-09-04 16:43 | XMS_ITS | Encounter Summary ---
:1960 Author Organization [place] Address [address] [facility] [place] [address] Care Team Providers Name Role Phone Teresita [...] do you attend hinduism or Not asked orthodox services? Do you [...] Depression Total Score: 8 12/02/2019 2:02 PM BULK SYSTEM OPERATOR documented as of this encounter Care Teams Retread Supervisor Relationship Specialty Start Date End Date Teresita Garcia MD PCP - General Family Practice 01/22/11 [address] [place] [address] Teresita Garcia MD Assigned PCP 11/16/16 12/28/21 [address] [place], [place] [phone] documented as of this encounter
--- OUTSIDE RECORDS SUMMARY | 2022-09-04 16:43 | XMS_ITS | Encounter Summary ---
:1960 Author Organization [place] Address [address] [place] [address] Care Team Providers Name Role Phone Teresita Garcia MD Primary Care Provider Teresita Garcia MD Unavailable Reason for Visit Reason Onset Date Comments Forms 03/16/2020 Physician Order Encounter Details Date Type Department Care Team Description 03/16/2020 Telephone [facility] Teresita Garcia MD Forms (Physician Order) Clinic [phone] [place] [address] [phone] Social History Tobacco Use Types Packs/Day [...] do you attend orthodoxy or Not asked worship services? Do you [...] complete. Form in the in- basket at [facility] in AA's folder. documented in this encounter Plan of Treatment Not on filedocumented as of this encounter Visit Diagnoses Not on filedocumented in this encounter Additional Health Concerns Assessment Noted Time PHQ-9 Depression Total Score: 8 12/02/2019 2:02 PM WINTERIZER documented as of this encounter Care Teams Diesel Trailer Mechanic Relationship Specialty Start Date End Date Teresita Garcia MD PCP - General Family Practice 01/22/11 [address] [place], [place] [phone] Teresita Garcia MD Assigned PCP 11/16/16 12/28/21 [address] [place], [place] [phone] documented as of this encounter
--- OUTSIDE RECORDS SUMMARY | 2022-09-04 16:43 | XMS_ITS | Encounter Summary ---
:1960 Author Organization [place] Address [facility] [place] [address] Care Team Providers Name Role Phone Teresita Garcia MD Primary Care Provider Teresita Garcia MD Unavailable Reason for Visit Reason Onset Date Comments Forms 06/07/2020 Orders Encounter Details Date Type Department Care Team Description 06/07/2020 Telephone [facility] Roel Garcia MD Forms (Orders ) [phone] [place] [address] [phone] (Wo rk) Social History Tobacco [...] clinic location was the form placed at?: [facility] Where the form was placed: Dr Garcia Box/Folder What number is listed as a contact on the form?: [phone] Additional comments: please /sign date and fax to [phone] Call taken on 06/07/2020 at 4:00 PM by Brooklyn Ogden documented in this encounter Plan of Treatment Not on filedocumented as of this encounter Visit Diagnoses Not on filedocumented in this encounter Additional Health Concerns Assessment Noted Time PHQ-9 Depression Total Score: 8 12/02/2019 2:02 PM CONSULTANT documented as of this encounter Care Teams Flame Cutter Relationship Specialty Start Date End Date Teresita Garcia MD PCP - General Family Practice 01/22/11 [address] [place], [place] [phone] Teresita Garcia MD Assigned PCP 11/16/16 12/28/21 [address] [place], [place] [phone] documented as of this encounter
--- OUTSIDE RECORDS SUMMARY | 2022-09-04 16:43 | XMS_ITS | Encounter Summary ---
:1960 Author Organization [place] Address [address] [facility] [place] [address] Care Team Providers Name Role Phone Teresita Garcia MD Primary Care Provider Teresita Garcia MD Unavailable Dolores Caputo DISTRIBUTOR OF DIRECTORIES Unavailable Letha Vasquez MA Unavailable Encounter Details Date Type Department Care Team Description 06/19/2020 Anesthesia - [facility] [place] [address] [place] [phone] [place], [place] [phone] [address] Social History Tobacco Use Types Packs/Day Years [...] do you attend zoroastrianism or Not asked gnosticist services? Do you [...] bladder stones, juvenile osteochondrosis hip and pelvis, nkga-bmvfd-mbutwxe disease, venous stasis, acquired pseudomeningocele. Covis negative [...] Depression Total Score: 8 12/02/2019 2:02 PM FELLER BUNCHER OPERATOR documented as of this encounter Care Teams X Ray Equipment Mechanic Relationship Specialty Start Date End Date Teresita Garcia MD PCP - General Family Practice 01/22/11 [address] [place], [place] [phone] Teresita Garcia MD Assigned PCP 11/16/16 12/28/21 [address] [place], [place] [phone] Dolores Caputo, DISTRIBUTOR OF DIRECTORIES Lead Systems Accountant Primary Care - CC 06/27/20 09/03/20 Letha Vasquez, Community Health Worker 07/05/20 09/03/20 [place] documented as of this encounter
--- OUTSIDE RECORDS SUMMARY | 2022-09-04 16:43 | XMS_ITS | Encounter Summary ---
:1960 Author Organization [place] Address [address] [facility] [address] Care Team Providers Name Role Phone Teresita [...] do you attend taoism or Not asked gnosticism services? Do you [...] Depression Total Score: 8 12/02/2019 2:02 PM CREDIT UNION EXAMINER documented as of this encounter Care Teams Wet Silk Hanger Relationship Specialty Start Date End Date Teresita Garcia MD PCP - General Family Practice 01/22/11 [address] [place] [address] Teresita Garcia MD Assigned PCP 11/16/16 12/28/21 [address] [place], [place] [phone] documented as of this encounter
--- OUTSIDE RECORDS SUMMARY | 2022-09-04 16:43 | XMS_ITS | Encounter Summary ---
:1960 Author Organization [place] Address [address] [facility] [place] [address] Care Team Providers Name Role Phone Teresita Garcia MD Primary Care Provider Teresita Garcia MD Unavailable Reason for Visit Reason Onset Date Comments Orders 03/23/2020 Physicians Orders Encounter Details Date Type Department Care Team Description 03/23/2020 Telephone [facility] Teresita Garcia MD Orders ([facility] [place] [id number] [place] [address] Orders) [address] [place] [address] [phone] Social History Tobacco Use Types Packs/Day [...] do you attend restoration or Not asked zoroastrian services? Do you [...] AM CDT Signed form faxed. Malena Hankins Behavioral Instructor Telephone Encounter - Bella Harden - 03/23/2020 9:05 AM CDT Received 3 page fax from [facility] for orders for Dr. Garcia to complete. Placed in AA's folder at [place]. When completed, please fax to [phone]. Bella Harden Behavioral Instructor documented in this encounter Plan of Treatment Not on filedocumented as of this encounter Visit Diagnoses Not on filedocumented in this encounter Additional Health Concerns Assessment Noted Time PHQ-9 Depression Total Score: 8 12/02/2019 2:02 PM JANITOR HEAD documented as of this encounter Care Teams Crab Butcher Relationship Specialty Start Date End Date Teresita Garcia MD PCP - General Family Practice 01/22/11 [address] [place] [address] Teresita Garcia MD Assigned PCP 11/16/16 12/28/21 [address] [place] [address] documented as of this encounter
--- OUTSIDE RECORDS SUMMARY | 2022-09-04 16:43 | XMS_ITS | Encounter Summary ---
:1960 Author Organization [place] Address [facility] [place] [address] Care Team Providers Name Role Phone Teresita Garcia MD Primary Care Provider Terestia Garcia MD Unavailable Reason for Visit Reason Comments Medication Refill Encounter Details Date Type Department Care Team Description 05/27/2020 Refill [facility] Roel Garcia MD Medication Refill [place] [id number] [place] [address] [place], [place] [phone] [place] [address] [phone] Social History Tobacco Use Types Packs/Day Years [...] do you attend sikhism or Not asked faith services? Do you [...] Depression Total Score: 8 12/02/2019 2:02 PM PHYTOPATHOLOGIST documented as of this encounter Care Teams Director Of Direct Marketing Relationship Specialty Start Date End Date Teresita Garcia MD PCP - General Family Practice 01/22/11 [address] [place], [place] [phone] Teresita Garcia MD Assigned PCP 11/16/16 12/28/21 [address] [place], [place] [phone] documented as of this encounter
--- OUTSIDE RECORDS SUMMARY | 2022-09-04 16:43 | XMS_ITS | Encounter Summary ---
:1960 Author Organization [place] Address [address] [place] [address] Care Team Providers Name Role Phone Teresita Garcia MD Primary Care Provider Teresita Garcia MD Unavailable Encounter Details Date Type Department Care Team Description 05/23/2020 Medical Correspondence [facility] Scan, PLAN OF CARE [employer] [facility] Non-Provider HOME HEALTH /HOSPICE Sr[facility] [address] [place] [address] Social History Tobacco Use Types [...] do you attend taoism or Not asked holiness services? Do you [...] Total Score: 8 12/02/2019 2:02 PM LAST MODEL DEPARTMENT SUPERVISOR documented as of this encounter Care Teams Corner Former Relationship Specialty Start Date End Date Teresita Garcia MD PCP - General Family Practice 01/22/11 [address] [place] [address] Teresita Garcia MD Assigned PCP 11/16/16 12/28/21 [address] [place] [address] documented as of this encounter
--- OUTSIDE RECORDS SUMMARY | 2022-09-04 16:43 | XMS_ITS | Encounter Summary ---
:1960 Author Organization [place] Address [address] [facility] [place] [address] Care Team Providers Name Role Phone Teresita Garcia MD Primary Care Provider Teresita Garcia MD Unavailable Reason for Visit Diagnostic Imaging Dexa (Routine) - Closed Specialty Diagnoses / Procedures Referred By Contact Refer red To Contact Diagnoses lobsterman current use of systemic steroids Teresita Garcia MD Procedures DX Wrist Heel Radius [address] [place], [place] [address] Referral ID Status Reason Start Date Expiration Date Visits Requ ested Visits Authorized [id number] Closed 04/04/2020 04/04/2021 1 1 Encounter Details Date Type Department Care Team Description 04/04/2020 Ancillary Procedure [facility] Anoop g term current use [facility] [place] of systemic steroids [address] [place] [address] [address] [place] [address] Social History Tobacco Use Types Packs/Day Years [...] do you attend adventism or Not asked pentecostalism services? Do you [...] Comme nts DX Routine 04/04/2020 1:43 PM lobsterman current Resu lts for this WRIST/HEEL/RADIUS CDT use of systemic procedu re are in steroids the results section. documented in this encounter Results DX Wrist Heel Radius (04/04/2020 1:43 PM CDT) Anatomical Region Laterality Modality Dexa Bone Mineral Density Specimen (Source) Anatomical Location Collection Method / Collectio n Time Received Time / Laterality Volume Narrative 04/06/2020 1:21 PM CDT BONE DENSITOMETRY [address] [address] 04/04/2020 ?? PATIENT: Dejuan Rodriguez CHART: [id number] : ??1960 AGE: ??59 year old SEX: ??male REFERRING PROVIDER: Teresita Garcia MD ?? PROCEDURE: ??Bone density scanning was p erformed using DXA technology of the lumbar spine and hip. ??Scanning was performed on a [employer] scanner. ??Reporting is completed in the form of a T-score. ??The T-score represents the standard deviation from p eak bone mass based on a young healthy adult. ?? REFERENCE T-SCORES: ?Normal ?-1.0 and greater ?Osteopenia ? Between -1. 0 and -2.5 ?Osteoporosis ? -2.5 and less ? RISK FACTORS: ??Post-menopausal, Parent history of osteoporosis with a hip fracture, half-way corticosteroid thera py CURRENT TREATMENT: ??Calcium, Fosamax [...] documented in this encounter Visit Diagnoses Diagnosis half-way current use of systemic steroi ds Encounter for long-term (current) use of steroids documented in this encounter Additional Health Concerns Assessment Noted Time PHQ-9 Depression Total Score: 8 12/02/2019 2:02 PM WIND ENERGY ENGINEER documented as of this encounter Care Teams Warehouse Distribution Manager Relationship Specialty Start Date End Date Teresita Garcia MD PCP - General Family Practice 01/22/11 [address] [place] [address] Teresita Garcia MD Assigned PCP 11/16/16 12/28/21 [address] [place], [place] [phone] documented as of this encounter
--- OUTSIDE RECORDS SUMMARY | 2022-09-04 16:43 | XMS_ITS | Encounter Summary ---
:1960 Author Organization [place] Address [facility] [place] [address] Care Team Providers Name Role Phone Teresita Garcia MD Primary Care Provider Teresita Garcia MD Unavailable Encounter Details Date Type Department Care Team Description 05/25/2020 Medical Correspondence [facility] Scan, PLAN OF CARE Health Info Mgmt Non-Provider 03/20/20 - [facility] [address] [place] [address]/[place] [address] Social History Tobacco Use Types [...] do you attend restorationist or Not asked jainism services? Do you [...] Depression Total Score: 8 12/02/2019 2:02 PM PROJECT CONTROLLER documented as of this encounter Care Teams Process Control Manager Relationship Specialty Start Date End Date Teresita Garcia MD PCP - General Family Practice 01/22/11 [address] [place], [place] [phone] Teresita Garcia MD Assigned PCP 11/16/16 12/28/21 [address] [place], [place] [phone] documented as of this encounter
--- OUTSIDE RECORDS SUMMARY | 2022-09-04 16:43 | XMS_ITS | Encounter Summary ---
:1960 Author Organization [place] Address [address] [facility] [place] [address] Care Team Providers Name Role Phone Teresita Garcia MD Primary Care Provider Teresita Garcia MD Unavailable Encounter Details Date Type Department Care Team Description 03/12/2020 Medical Correspondence [facility] [place] Scan, ORDERS [facility] Health Info Mgmt Non-Provider HEALTH/HOSP ICE [facility] [address] [place] [address] Social History Tobacco Use Types [...] do you attend quaker or Not asked presybeterian services? Do you [...] Depression Total Score: 8 12/02/2019 2:02 PM SHOE TURNER documented as of this encounter Care Teams Technical Director Relationship Specialty Start Date End Date Teresita Garcia MD PCP - General Family Practice 01/22/11 [address] [place], [place] [phone] Teresita Garcia MD Assigned PCP 11/16/16 12/28/21 [address] [place], [place] [phone] documented as of this encounter
--- OUTSIDE RECORDS SUMMARY | 2022-09-04 16:44 | XMS_ITS | Encounter Summary ---
:1960 Author Organization [place] Address [address] [facility] [place] [address] Care Team Providers Name Role Phone Teresita Garcia MD Primary Care Provider Teresita Garcia MD Unavailable Encounter Details Date Type Department Care Team Description 11/16/2019 Medical Correspondence [facility] Scan, TRANSFER SUMMARY Health Info Mgmt Non-Provider HOME HEALTH CARE Srvcs [address] [place] [address] Social History Tobacco Use Types Packs/Day [...] do you attend shinto or Not asked mormon services? Do you [...] Depression Total Score: 5 11/25/2018 3:25 PM SALES APPLICATIONS ENGINEER documented as of this encounter Care Teams Solid Waste Management Engineer Relationship Specialty Start Date End Date Teresita Garcia MD PCP - General Family Practice 01/22/11 [address] [place], [place] [phone] Teresita Garcia MD Assigned PCP 11/16/16 12/28/21 [address] [place], [place] [phone] documented as of this encounter
--- OUTSIDE RECORDS SUMMARY | 2022-09-04 16:44 | XMS_ITS | Encounter Summary ---
:1960 Author Organization [place] Address [address] [place] [address] Care Team Providers Name Role Phone Teresita Garcia MD Primary Care Provider Teresita Garcia MD Unavailable Encounter Details Date Type Department Care Team Description 11/24/2019 Medical Correspondence [facility] [place] Scan, ORDER SUMMARY Health Info Mgmt Non-Provider [facility] HEALTH/HOSPICE [address] [place] [address] Social History Tobacco Use Types Packs/Day [...] you attend oriental orthodox or Not asked cheondoism services? Do you [...] Depression Total Score: 5 11/25/2018 3:25 PM PROJECT RESERVOIR ENGINEER documented as of this encounter Care Teams Hairspring Assembler Relationship Specialty Start Date End Date Teresita Garcia MD PCP - General Family Practice 01/22/11 [address] [place], [place] [phone] Teresita Garcia MD Assigned PCP 11/16/16 12/28/21 [address] [place] [address] documented as of this encounter
--- OUTSIDE RECORDS SUMMARY | 2022-09-04 16:44 | XMS_ITS | Encounter Summary ---
:1960 Author Organization [place] Address [address] [place] [address] Care Team Providers Name Role Phone Teresita Garcia MD Primary Care Provider Teresita Garcia MD Unavailable Reason for Visit Reason Onset Date Comments Orders 12/19/2019 [facility] Encounter Details Date Type Department Care Team Description 12/19/2019 Telephone [facility] Teresita Garcia MD Orders ([facility] [address]) [address] [place] [address] [phone] Social History Tobacco Use Types Packs/Day [...] do you attend buddhist or Not asked sikh services? Do you [...] AM CDT Signed forms faxed. Malena Hankins Bonding Agent Telephone Encounter - Malena Hankins - 12/19/2019 3:12 PM CDT Recd 6 page fax from [facility]. Please fax Plan of Care orders to [phone]. Form in AA folder at [place] Malena Hankins Bonding Agent documented in this encounter Plan of Treatment Not on filedocumented as of this encounter Visit Diagnoses Not on filedocumented in this encounter Additional Health Concerns Assessment Noted Time PHQ-9 Depression Total Score: 8 12/02/2019 2:02 PM PIPELINE CONSTRUCTION INSPECTOR documented as of this encounter Care Teams Disease Education Specialist Relationship Specialty Start Date End Date Teresita Garcia MD PCP - General Family Practice 01/22/11 [address] [place] [address] Teresita Garcia MD Assigned PCP 11/16/16 12/28/21 [address] [place] [address] documented as of this encounter
--- OUTSIDE RECORDS SUMMARY | 2022-09-04 16:44 | XMS_ITS | Encounter Summary ---
:1960 Author Organization [place] Address [address] [facility] [address] Care Team Providers Name Role Phone Teresita [...] do you attend faith or Not asked druze services? Do you [...] Depression Total Score: 8 12/02/2019 2:02 PM COMPUTER TRAINER documented as of this encounter Care Teams Hand Drawer In Helper Relationship Specialty Start Date End Date Teresita Garcia MD PCP - General Family Practice 01/22/11 [address] [place] [address] Teresita Garcia MD Assigned PCP 11/16/16 12/28/21 [address] [place] [address] documented as of this encounter
--- OUTSIDE RECORDS SUMMARY | 2022-09-04 16:44 | XMS_ITS | Encounter Summary ---
:1960 Author Organization [place] Address [address] [facility] [place] [address] Care Team Providers Name Role Phone Teresita Garcia MD Primary Care Provider Teresita Garcia MD Unavailable Reason for Visit Reason Onset Date Comments Orders 12/06/2019 Home Care orders Encounter Details Date Type Department Care Team Description 12/06/2019 Telephone [facility] Teresita Garcia MD Orders ([facility] [place] [id number] [place] [address] orders) [address] [place] [address] [phone] Social History Tobacco Use Types Packs/Day [...] do you attend methodist or Not asked shinto services? Do you [...] send Orders: Call to give verbal at [phone]. Jenni Bryant Registered Mail Clerk documented in this encounter Plan of Treatment Not on filedocumented as of this encounter Visit Diagnoses Not on filedocumented in this encounter Additional Health Concerns Assessment Noted Time PHQ-9 Depression Total Score: 8 12/02/2019 2:02 PM PLASTICS PROCESS HAND documented as of this encounter Care Teams Sign Language Interpreter Relationship Specialty Start Date End Date Teresita Garcia MD PCP - General Family Practice 01/22/11 [address] [place], [place] [phone] Teresita Garcia MD Assigned PCP 11/16/16 12/28/21 [address] [place] [address] documented as of this encounter
--- OUTSIDE RECORDS SUMMARY | 2022-09-04 16:44 | XMS_ITS | Encounter Summary ---
:1960 Author Organization [place] Address [address] [place] [address] Care Team Providers Name Role Phone Teresita Garcia MD Primary Care Provider Teresita Garcia MD Unavailable Reason for Visit Reason Onset Date Comments Forms 11/29/2019 Physician Order Encounter Details Date Type Department Care Team Description 11/29/2019 Telephone [facility] Teresita Garcia MD Forms (Physician Order) Clinic [id number] [place] [address] [phone] Social History Tobacco Use Types Packs/Day [...] PM CST Form faxed, 11/30/2019 Jackie Brito/AWILDA EQUIN REFINISHER Telephone Encounter - Rosy Brito - 11/29/2019 11:08 AM CST Received 2 page fax for Physician Order for Dr Garcia to complete. Form in the in- basket at [facility] in AA's folder. EQUIN REFINISHER documented in this encounter Plan of Treatment Not on filedocumented as of this encounter Visit Diagnoses Not on filedocumented in this encounter Additional Health Concerns Assessment Noted Time PHQ-9 Depression Total Score: 5 11/25/2018 3:25 PM MANNEQUIN REFINISHER documented as of this encounter Care Teams Plisse Machine Operator Relationship Specialty Start Date End Date Teresita Garcia MD PCP - General Family Practice 01/22/11 [address] [place] [address] Teresita Garcia MD Assigned PCP 11/16/16 12/28/21 [address] [place] [address] documented as of this encounter
--- OUTSIDE RECORDS SUMMARY | 2022-09-04 16:44 | XMS_ITS | Encounter Summary ---
:1960 Author Organization [place] Address [address] [place] [address] Care Team Providers Name Role Phone Teresita Garcia MD Primary Care Provider Teresita Garcia MD Unavailable Encounter Details Date Type Department Care Team Description 12/08/2019 Medical Correspondence [facility] Scan, [facility].?? [facility] CLINICS [address] [place] [address] Social History Tobacco Use Types [...] do you attend sikh or Not asked mandaeism services? Do you [...] Depression Total Score: 8 12/02/2019 2:02 PM EMAIL ENGINEER documented as of this encounter Care Teams Sill Worker Relationship Specialty Start Date End Date Teresita Garcia MD PCP - General Family Practice 01/22/11 [address] [place] [address] Teresita Garcia MD Assigned PCP 11/16/16 12/28/21 [address] [place] [address] documented as of this encounter
--- OUTSIDE RECORDS SUMMARY | 2022-09-04 16:44 | XMS_ITS | Encounter Summary ---
:1960 Author Organization [place] Address [address] [place] [address] Care Team Providers Name Role Phone Teresita Garcia MD Primary Care Provider Teresita Garcia MD Unavailable Reason for Visit Reason Onset Date Comments Forms 01/03/2020 Physician Orders Encounter Details Date Type Department Care Team Description 01/03/2020 Telephone [facility] Teresita Garcia MD Forms (Physician Clinic [place] [id number] [place] [address] Orders) [address] [place], [place] [phone] Social History Tobacco Use Types Packs/Day [...] CDT Form completed and faxed, 01/04/2020 Jackie Brito/AWLIDA Telephone Encounter - Rosy Brito - 01/03/2020 1:14 PM CDT Received 2 page fax for Physician Orders for Dr Garcia to complete. Form in the in-basket at [facility] in AA's folder. documented in this encounter Plan of Treatment Not on filedocumented as of this encounter Visit Diagnoses Not on filedocumented in this encounter Additional Health Concerns Assessment Noted Time PHQ-9 Depression Total Score: 8 12/02/2019 2:02 PM AUTOMATIC BANDSAW TENDER documented as of this encounter Care Teams Mold Breaker Relationship Specialty Start Date End Date Teresita Garcia MD PCP - General Family Practice 01/22/11 [address] [place] [address] Teresita Garcia MD Assigned PCP 11/16/16 12/28/21 [address] [place] [address] documented as of this encounter
--- OUTSIDE RECORDS SUMMARY | 2022-09-04 16:44 | XMS_ITS | Encounter Summary ---
:1960 Author Organization [place] Address [address] [facility] [place] [address] Care Team Providers Name Role Phone Teresita Garcia MD Primary Care Provider Teresita Garcia MD Unavailable Reason for Visit Reason Onset Date Comments Erroneous encounter-disregard 01/24/2020 Encounter Details Date Type Department Care Team Description 01/24/2020 Telephone [facility] Teresita Garcia MD Erroneous Clinic [place] [id number] [place] [address] encounter-disregard [address] [place], [place] [phone] Social History Tobacco Use Types Packs/Day [...] do you attend hinduism or Not asked samaritan services? Do you [...] Total Score: 8 12/02/2019 2:02 PM OUTREACH REP documented as of this encounter Care Teams Integrated Circuit Layout Designer Relationship Specialty Start Date End Date Teresita Garcia MD PCP - General Family Practice 01/22/11 [address] [place], [place] [phone] Teresita Garcia MD Assigned PCP 11/16/16 12/28/21 [address] [place], [place] [phone] documented as of this encounter
--- OUTSIDE RECORDS SUMMARY | 2022-09-04 16:44 | XMS_ITS | Encounter Summary ---
:1960 Author Organization [place] Address [address] [facility] [place] [address] Care Team Providers Name Role Phone Teresita [...] do you attend alevism or Not asked mandaen services? Do you [...] Depression Total Score: 8 12/02/2019 2:02 PM LINK WIRE FABRIC MACHINE OPERATOR documented as of this encounter Care Teams Fire Assistant Relationship Specialty Start Date End Date Teresita Garcia MD PCP - General Family Practice 01/22/11 [address] [place] [address] Teresita Garcia MD Assigned PCP 11/16/16 12/28/21 [address] [place], [place] [phone] documented as of this encounter
--- OUTSIDE RECORDS SUMMARY | 2022-09-04 16:44 | XMS_ITS | Encounter Summary ---
:1960 Author Organization [place] Address [address] [facility] [place] [address] Care Team Providers Name Role Phone Teresita Garcia MD Primary Care Provider Teresita Garcia MD Unavailable Encounter Details Date Type Department Care Team Description 01/30/2020 Medical Correspondence [facility] Scan, PLAN OF CARE [employer] [facility] Non-Provider HOME HEALTH /HOSPICE Srvcs [address] [place] [address] Social History Tobacco Use Types [...] Depression Total Score: 8 12/02/2019 2:02 PM FLOORMAN documented as of this encounter Care Teams Comfort Advisor Relationship Specialty Start Date End Date Teresita Garcia MD PCP - General Family Practice 01/22/11 [address] [place], [place] [phone] Teresita Garcia MD Assigned PCP 11/16/16 12/28/21 [address] [place], [place] [phone] documented as of this encounter
--- OUTSIDE RECORDS SUMMARY | 2022-09-04 16:44 | XMS_ITS | Encounter Summary ---
:1960 Author Organization [place] Address [address] [facility] [place] [address] Care Team Providers Name Role Phone Teresita Garcia MD Primary Care Provider Teresita Garcia MD Unavailable Reason for Visit Reason Onset Date Comments Forms 11/30/2019 Durable Medical Equi pment Encounter Details Date Type Department Care Team Description 11/30/2019 Telephone [facility] Teresita Garcia MD Forms ([facility] [place] [address] Equipment) [address] [place], [place] [phone] Social History Tobacco Use Types Packs/Day [...] PM CST Form faxed, 11/30/2019 Jackie Brito/AWILDA IDE PLANT CABLE ENGINEER Telephone Encounter - Rosy Brito - 11/30/2019 9:23 AM CST Received 2 page fax for Durable Medical Equipment for Dr Garcia to complete. Form in the in-basket at [facility] in AA's folder. IDE PLANT CABLE ENGINEER documented in this encounter Plan of Treatment Not on filedocumented as of this encounter Visit Diagnoses Not on filedocumented in this encounter Additional Health Concerns Assessment Noted Time PHQ-9 Depression Total Score: 5 11/25/2018 3:25 PM OUTSIDE PLANT CABLE ENGINEER documented as of this encounter Care Teams Weed Control Inspector Relationship Specialty Start Date End Date Teresita Garcia MD PCP - General Family Practice 01/22/11 [address] [place] [address] Teresita Garcia MD Assigned PCP 11/16/16 12/28/21 [address] [place], [place] [phone] documented as of this encounter
--- OUTSIDE RECORDS SUMMARY | 2022-09-04 16:44 | XMS_ITS | Encounter Summary ---
:1960 Author Organization [place] Address [address] [place] [address] Care Team Providers Name Role Phone Teresita Garcia MD Primary Care Provider Teresita Garcia MD Unavailable Reason for Visit Reason Onset Date Comments Forms 01/17/2020 Physician Order Encounter Details Date Type Department Care Team Description 01/17/2020 Telephone [facility] Teresita Garcia MD Forms (Physician Order) Clinic [address] [place] [address] [place] [address] [phone] Social History Tobacco Use Types Packs/Day [...] do you attend pentecostalism or Not asked judaism services? Do you [...] 19 altered schedules Blanca Choi Registered Nurse [facility] Telephone Encounter - Rosy Brito - 01/17/2020 10:04 AM CDT Received 2 page fax for Physician Order fro Dr Garcia to complete. Form in the in- basket at [facility] in AA's folder. documented in this encounter Plan of Treatment Not on filedocumented as of this encounter Visit Diagnoses Not on filedocumented in this encounter Additional Health Concerns Assessment Noted Time PHQ-9 Depression Total Score: 8 12/02/2019 2:02 PM FARMWORKER PULLET FARM documented as of this encounter Care Teams Stacking Machine Operator Relationship Specialty Start Date End Date Teresita Garcia MD PCP - General Family Practice 01/22/11 [address] [place], [place] [phone] Teresita Garcia MD Assigned PCP 11/16/16 12/28/21 [address] [place], [place] [phone] documented as of this encounter
--- OUTSIDE RECORDS SUMMARY | 2022-09-04 16:44 | XMS_ITS | Encounter Summary ---
:1960 Author Organization [place] Address [address] [place] [address] Care Team Providers Name Role Phone Teresita Garcia MD Primary Care Provider Teresita Garcia MD Unavailable Reason for Visit Reason Onset Date Comments Orders 12/01/2019 [facility] Encounter Details Date Type Department Care Team Description 12/01/2019 Telephone [facility] Teresita Garcia MD Orders ([facility] [address]) [address] [place] [address] [phone] Social History Tobacco Use Types Packs/Day [...] do you attend spiritism or Not asked anabaptist services? Do you [...] AM CST Signed forms faxed. Malena Hankins Shipping & Receiving Lead BRANDER Telephone Encounter - Malena Hankins - 12/01/2019 3:46 PM CST Recd 8 page fax from [employer]. Please sign [employer] Orders and fax to [phone]. Form in AA folder at [place]. Malena Hankins Shipping & Receiving Lead BRANDER documented in this encounter Plan of Treatment Not on filedocumented as of this encounter Visit Diagnoses Not on filedocumented in this encounter Additional Health Concerns Assessment Noted Time PHQ-9 Depression Total Score: 5 11/25/2018 3:25 PM BULB BRANDER documented as of this encounter Care Teams Contract Sheltered Workshop Supervisor Relationship Specialty Start Date End Date Teresita Garcia MD PCP - General Family Practice 01/22/11 [address] [place] [address] Teresita Garcia MD Assigned PCP 11/16/16 12/28/21 [address] [place] [address] documented as of this encounter
--- OUTSIDE RECORDS SUMMARY | 2022-09-04 16:44 | XMS_ITS | Encounter Summary ---
:1960 Author Organization [place] Address [facility] [place] [address] Care Team Providers Name Role Phone Teresita Garcia MD Primary Care Provider Teresita Garcia MD Unavailable Reason for Visit Reason Comments Medication Refill Encounter Details Date Type Department Care Team Description 02/07/2020 Refill [facility] Roel Garcia MD Medication Refill [place] [id number] [place] [address] [place], [place] [address] [place] [phone] Social History Tobacco Use Types Packs/Day Years [...] do you attend rastafari or Not asked restorationism services? Do you [...] Total Score: 8 12/02/2019 2:02 PM SENIOR MEDICAL BILLING SPECIALIST documented as of this encounter Care Teams Dental Prosthetist Relationship Specialty Start Date End Date Teresita Garcia MD PCP - General Family Practice 01/22/11 [address] [place], [place] [phone] Teresita Garcia MD Assigned PCP 11/16/16 12/28/21 [address] [place], [place] [phone] documented as of this encounter
--- OUTSIDE RECORDS SUMMARY | 2022-09-04 16:44 | XMS_ITS | Encounter Summary ---
:1960 Author Organization [place] Address [facility] [place] [address] Care Team Providers Name Role Phone Teresita Garcia MD Primary Care Provider Teresita Garcia MD Unavailable Reason for Visit Reason Onset Date Comments Orders 12/07/2019 [facility] Encounter Details Date Type Department Care Team Description 12/07/2019 Telephone [facility] Teresita Garcia MD Orders ([facility] [address] [place] [address]) [address] [place] [address] [phone] Social History Tobacco Use Types Packs/Day [...] do you attend advent or Not asked buddhist services? Do you [...] PM CDT Recd 4 page fax [email or web address]. Please sign orders and fax to [phone]. Form in AA folder at [place]. Malena Hankins Clinical Scientist documented in this encounter Plan of Treatment Not on filedocumented as of this encounter Visit Diagnoses Not on filedocumented in this encounter Additional Health Concerns Assessment Noted Time PHQ-9 Depression Total Score: 8 12/02/2019 2:02 PM SENIOR CUSTOMER SERVICE REPRESENTATIVE documented as of this encounter Care Teams Volunteer Firefighter Relationship Specialty Start Date End Date Teresita Garcia MD PCP - General Family Practice 01/22/11 [address] [place] [address] Teresita Garcia MD Assigned PCP 11/16/16 12/28/21 [address] [place] [address] documented as of this encounter
--- OUTSIDE RECORDS SUMMARY | 2022-09-04 16:44 | XMS_ITS | Encounter Summary ---
:1960 Author Organization [place] Address [address] [facility] [place] [address] Care Team Providers Name Role Phone Teresita Garcia MD Primary Care Provider Teresita Garcia MD Unavailable Reason for Visit Reason Comments Hospital F/U Encounter Details Date Type Department Care Team Description 12/02/2019 Office Visit [facility] Teresita Garcia MD Urinary tract Clinic [place] [id number] [place] [address] infection associated [address] [place], [place] [address] urethral catheter, [phone] subsequent encounter (Primary Dx) [...] do you attend yazidi or Not asked holiness services? Do you [...] Comments Blood Pressure 121/78 12/02/2019 1:07 PM JUVENILE DETENTION OFFICER Pulse 98 12/02/2019 1:07 PM JUVENILE DETENTION OFFICER Temperature 36.6 ??C (97.8 ??F) 12/02/2019 1:07 PM JUVENILE DETENTION OFFICER Respiratory Rate 16 12/02/2019 1:07 PM JUVENILE DETENTION OFFICER Oxygen Saturation 99% 12/02/2019 1:07 PM JUVENILE DETENTION OFFICER Inhaled Oxygen Concentration - - Weight 79.4 kg (175 lb) 12/02/2019 1:07 PM JUVENILE DETENTION OFFICER Height - - Body Mass Index 27 11/25/2018 3:16 PM JUVENILE DETENTION OFFICER documented in this encounter Progress Notes Teresita Garcia MD - 12/02/2019 1:00 PM CST Subjective Dejuan Rodriguez is a 58 year old male who presents to clinic today for the following health issues: [facility] Hospital Follow-up Visit: Hospital/Assisted/ Rehab Facility: [facility] Date of Admission: 11/24/2019 Date of Discharge: 11/29/2019 Reason(s) for Admission: UTI Problems taking medications regularly: None Medication changes since discharge: Doxycycline and changed Gabapentin Problems adhering to non-medication therapy: None Summary of hospitalization: [facility] discharge summary reviewed Diagnostic Tests/Treatments reviewed. Follow up needed: with Neurology and Urology. Other Healthcare Providers Involved in Patient???s Care: FINE SANDER has been helping him during the day. [...] this visit: Type of Medical Decision Making Fvux-sm-Yvpk Visit within 7 Days of discharge Inty-vz-Kxpc Visit within 14 days of discharge Moderate Complexity [id number] [phone] High Complexity [address]4894 [address] Patient Active Problem List Diagnosis ??? MS (multiple sclerosis) (H) ??? CARDIOVASCULAR SCREENING; LDL GOAL LESS THAN 160 ??? Cannabis abuse ??? Baclofen pump failure ??? Spasticity ??? Seborrheic dermatitis of scalp ??? Status post hip replacement ??? Dnqx-Wevpf-Fgyfdpm disease ??? Atopic rhinitis ??? Major depressive [...] 6 months (around 06/03/2020). Teresita Garcia MD [facility] NILE DETENTION OFFICER documented in this encounter Plan of Treatment Not on filedocumented as of this encounter Visit Diagnoses Diagnosis Urinary tract infection associated with indwelling urethral catheter, subsequent encounter - Primary documented in this encounter Additional Health Concerns Assessment Noted Time PHQ-9 Depression Total Score: 8 12/02/2019 2:02 PM JUVENILE DETENTION OFFICER documented as of this encounter Care Teams Sports Physical Therapist Relationship Specialty Start Date End Date Teresita Garcia MD PCP - General Family Practice 01/22/11 [address] [place] [address] Teresita Garcia MD Assigned PCP 11/16/16 12/28/21 [address] [place] [address] documented as of this encounter
--- OUTSIDE RECORDS SUMMARY | 2022-09-04 16:44 | XMS_ITS | Encounter Summary ---
:1960 Author Organization [place] Address [address] [place] [address] Care Team Providers Name Role Phone Teresita Garcia MD Primary Care Provider Teresita Garcia MD Unavailable Reason for Visit Reason Onset Date Comments Orders 12/05/2019 [facility] Encounter Details Date Type Department Care Team Description 12/05/2019 Telephone [facility] Teresita Garcia MD Orders ([facility] [address]) [address] [place] [address] [phone] Social History Tobacco Use Types Packs/Day [...] do you attend orthodoxy or Not asked anabaptist services? Do you [...] PM CDT Signed forms faxed. Malena Hankins Security Supervisor Telephone Encounter - Malena Hankins - 12/05/2019 9:13 AM CDT Recd 3 page fax from [employer]. Please sign orders and fax to [phone]. Form in AA folder at [place]. Malena Hankins Security Supervisor documented in this encounter Plan of Treatment Not on filedocumented as of this encounter Visit Diagnoses Not on filedocumented in this encounter Additional Health Concerns Assessment Noted Time PHQ-9 Depression Total Score: 8 12/02/2019 2:02 PM SOLAR HOT WATER INSTALLER documented as of this encounter Care Teams Chemical Recovery Operator Relationship Specialty Start Date End Date Teresita Garcia MD PCP - General Family Practice 01/22/11 [address] [place] [address] Teresita Garcia MD Assigned PCP 11/16/16 12/28/21 [address] [place] [address] documented as of this encounter
--- OUTSIDE RECORDS SUMMARY | 2022-09-04 16:44 | XMS_ITS | Encounter Summary ---
:1960 Author Organization [place] Address [address] [facility] [place] [address] Care Team Providers Name Role Phone Teresita Garcia MD Primary Care Provider Teresita Garcia MD Unavailable Encounter Details Date Type Department Care Team Description 12/05/2019 Medical Correspondence [facility] [place] Scan, HOME VISIT ORDER Health Info Mgmt Non-Provider [facility] HE[facility]OSPICE [address] [place] [address] Social History Tobacco Use Types [...] do you attend anabaptist or Not asked adventist services? Do you [...] Depression Total Score: 8 12/02/2019 2:02 PM CLIENT SERVER DEVELOPER documented as of this encounter Care Teams Workers Compensation Analyst Relationship Specialty Start Date End Date Teresita Garcia MD PCP - General Family Practice 01/22/11 [address] [place] [address] Teresita Garcia MD Assigned PCP 11/16/16 12/28/21 [address] [place] [address] documented as of this encounter
--- OUTSIDE RECORDS SUMMARY | 2022-09-04 16:44 | XMS_ITS | Encounter Summary ---
:1960 Author Organization [place] Address [address] [place] [address] Care Team Providers Name Role Phone Teresita Garcia MD Primary Care Provider Teresita Garcia MD Unavailable Encounter Details Date Type Department Care Team Description 11/28/2019 Medical Correspondence [facility] [place] Scan, PHYSICAL THERAPY Health Info Mgmt Non-Provider ORDER [facility] [address] [facility] [address] Social History Tobacco Use Types [...] do you attend judaism or Not asked presybeterian services? Do you [...] Depression Total Score: 5 11/25/2018 3:25 PM CHARGE MASTER SPECIALIST documented as of this encounter Care Teams Reporting Analyst Relationship Specialty Start Date End Date Teresita Garcia MD PCP - General Family Practice 01/22/11 [address] [place], [place] [phone] Teresita Garcia MD Assigned PCP 11/16/16 12/28/21 [address] [place], [place] [phone] documented as of this encounter
--- OUTSIDE RECORDS SUMMARY | 2022-09-04 16:44 | XMS_ITS | Encounter Summary ---
:1960 Author Organization [place] Address [address] [facility] [place] [address] Care Team Providers Name Role Phone Teresita Garcia MD Primary Care Provider Teresita Garcia MD Unavailable Reason for Visit Reason Onset Date Comments Forms 11/25/2019 Additional Orders-Ph ysical Therapy Encounter Details Date Type Department Care Team Description 11/25/2019 Telephone [facility] Teresita Garcia MD Forms (Additional Clinic [place] [id number] [place] [address] Orders-Physical [address] [place], [place] Therapy) [place], [place] [phone] Social History Tobacco Use Types Packs/Day [...] do you attend evangelical or Not asked voodoo services? Do you [...] Form completed and faxed, 11/28/2019 ,Jackie Brito/AWILDA ESIS NURSE Telephone Encounter - Rosy Brito - 11/25/2019 8:12 AM CST Received 2 page fax for Additional Orders-Physical Therapy for Dr Garcia to complete. Form in the in-basket at [facility] in AA's folder. ESIS NURSE documented in this encounter Plan of Treatment Not on filedocumented as of this encounter Visit Diagnoses Not on filedocumented in this encounter Additional Health Concerns Assessment Noted Time PHQ-9 Depression Total Score: 5 11/25/2018 3:25 PM PHERESIS NURSE documented as of this encounter Care Teams Golf Ball Winder Relationship Specialty Start Date End Date Teresita Garcia MD PCP - General Family Practice 01/22/11 [address] [place] [address] Teresita Garcia MD Assigned PCP 11/16/16 12/28/21 [address] [place] [address] documented as of this encounter
--- OUTSIDE RECORDS SUMMARY | 2022-09-04 16:44 | XMS_ITS | Encounter Summary ---
:1960 Author Organization [place] Address [address] [facility] [place] [address] Care Team Providers Name Role Phone Teresita Garcia MD Primary Care Provider Teresita Garcia MD Unavailable Reason for Visit Reason Onset Date Comments Home Health 12/07/2019 Requesting verbal ap proval Encounter Details Date Type Department Care Team Description 12/07/2019 Telephone [facility] Teresita Garcia MD [facility] (Requesting Clinic [place] [id number] [place] [address] verbal approval) [id number] [place] [phone] Social History Tobacco Use Types [...] do you attend bahai or Not asked church services? Do you [...] advise. Ok to call Lili back at [phone] Perez Almanzar MA documented in this encounter Plan of Treatment Not on filedocumented as of this encounter Visit Diagnoses Not on filedocumented in this encounter Additional Health Concerns Assessment Noted Time PHQ-9 Depression Total Score: 8 12/02/2019 2:02 PM MEDIA CENTER ASSISTANT documented as of this encounter Care Teams Telegraph Service Clerk Relationship Specialty Start Date End Date Teresita Garcia MD PCP - General Family Practice 01/22/11 [address] [place] [address] Teresita Garcia MD Assigned PCP 11/16/16 12/28/21 [address] [place] [address] documented as of this encounter
--- OUTSIDE RECORDS SUMMARY | 2022-09-04 16:44 | XMS_ITS | Encounter Summary ---
:1960 Author Organization [place] Address [address] [facility] [place] [address] Care Team Providers Name Role Phone Teresita Garcia MD Primary Care Provider Teresita Garcia MD Unavailable Encounter Details Date Type Department Care Team Description 12/02/2019 Medical Correspondence [facility] Scan, DISCHARGE/ORDER Health Info Mgmt Non-Provider SUMMARY [facility] [address] [place] [address] Social History Tobacco Use Types [...] do you attend judaism or Not asked rastafari services? Do you [...] Depression Total Score: 8 12/02/2019 2:02 PM ELECTRICIAN SUBSTATION SUPERVISOR documented as of this encounter Care Teams Electron Microscopist Relationship Specialty Start Date End Date Teresita Garcia MD PCP - General Family Practice 01/22/11 [address] [place] [address] Teresita Garcia MD Assigned PCP 11/16/16 12/28/21 [address] [place], [place] [phone] documented as of this encounter
--- OUTSIDE RECORDS SUMMARY | 2022-09-04 16:44 | XMS_ITS | Encounter Summary ---
:1960 Author Organization [place] Address [address] [place] [address] Care Team Providers Name Role Phone Teresita Garcia MD Primary Care Provider Teresita Garcia MD Unavailable Reason for Visit Reason Onset Date Comments Orders 12/21/2019 [facility] Encounter Details Date Type Department Care Team Description 12/21/2019 Telephone [facility] Teresita Garcia MD Orders ([facility] [address]) [address] [place] [phone] Social History Tobacco Use Types Packs/Day [...] do you attend adventism or Not asked moravian services? Do you [...] AM CDT Recd 2 page fax from [facility]. Please sign orders and fax to [phone] Form in AA folder at [facility]. Malena Hankins [employer] Animal Caretaker documented in this encounter Plan of Treatment Not on filedocumented as of this encounter Visit Diagnoses Not on filedocumented in this encounter Additional Health Concerns Assessment Noted Time PHQ-9 Depression Total Score: 8 12/02/2019 2:02 PM BIOFUELS TECHNOLOGY DEVELOPMENT MANAGER documented as of this encounter Care Teams Food Selector Relationship Specialty Start Date End Date Teresita Garcia MD PCP - General Family Practice 01/22/11 [address] [place] [address] Teresita Garcia MD Assigned PCP 11/16/16 12/28/21 [address] [place] [address] documented as of this encounter
--- OUTSIDE RECORDS SUMMARY | 2022-09-04 16:44 | XMS_ITS | Encounter Summary ---
:1960 Author Organization [place] Address [address] [facility] [place] [address] Care Team Providers Name Role Phone Teresita Garcia MD Primary Care Provider Teresita Garcia MD Unavailable Encounter Details Date Type Department Care Team Description 11/21/2019 Medical Correspondence [facility] Scan, PLAN OF CARE [facility] Non-Provider HOME HEALTH /HOSPICE Srvcs [address] [place] [address] Social History Tobacco Use Types [...] do you attend gnosticism or Not asked mandaeism services? Do you [...] Depression Total Score: 5 11/25/2018 3:25 PM DISTRIBUTOR SALES MANAGER documented as of this encounter Care Teams Sales And Service Representative Relationship Specialty Start Date End Date Teresita Garcia MD PCP - General Family Practice 01/22/11 [address] [place], [place] [phone] Teresita Garcia MD Assigned PCP 11/16/16 12/28/21 [address] [place], [place] [phone] documented as of this encounter
--- OUTSIDE RECORDS SUMMARY | 2022-09-04 16:44 | XMS_ITS | Encounter Summary ---
:1960 Author Organization [place] Address [address] [facility] [place] [address] Care Team Providers Name Role Phone Teresita Garcia MD Primary Care Provider Teresita Garcia MD Unavailable Encounter Details Date Type Department Care Team Description 01/17/2020 Medical Correspondence [facility] Scan, PLAN OF CARE Interventional Imaging [facility] Non-Provider HOME HEALTH /HOSPICE Srvcs [address] [place] [address] Social History Tobacco Use Types [...] do you attend sabianism or Not asked caodaism services? Do you [...] Total Score: 8 12/02/2019 2:02 PM HUMAN PERFORMANCE TECHNOLOGIST documented as of this encounter Care Teams Lacemaker Relationship Specialty Start Date End Date Teresita Garcia MD PCP - General Family Practice 01/22/11 [address] [place], [place] [phone] Teresita Garcia MD Assigned PCP 11/16/16 12/28/21 [address] [place], [place] [phone] documented as of this encounter
--- OUTSIDE RECORDS SUMMARY | 2022-09-04 16:44 | XMS_ITS | Encounter Summary ---
:1960 Author Organization [place] Address [address] [facility] [place] [address] Care Team Providers Name Role Phone Teresita Garcia MD Primary Care Provider Teresita Garcia MD Unavailable Reason for Visit Reason Onset Date Comments Medication Request 10/04/2019 Abx before Dental pr ocedure Encounter Details Date Type Department Care Team Description 10/04/2019 Telephone [facility] Teresita Garcia MD Medication Request (Abx [facility] [place] [address] before Dental [address] [place], [place] procedure) [place] [phone] Social History Tobacco Use Types Packs/Day Years [...] do you attend nondenominational or Not asked lutheran services? Do you [...] Deann Lora RN, BS Clinical Nurse Triage. CARDIOGRAPHY TECH Telephone Encounter - Teresita Garcia MD - 10/05/2019 7:42 AM CST No recommendations for Abx unless patient does have valve replacement, or congenital heart disease. Teresita Garcia MD [facility] [phone] CARDIOGRAPHY TECH Telephone Encounter - Mary More RN - [...] of office for day. Mary More RN CARDIOGRAPHY TECH Telephone Encounter - Gregory Bronson - 10/04/2019 11:22 AM CST Patient wants to know if he needs Abx before dental procedure tomorrow. He has had hips replaced. If so send to [facility]. Call and let patient know. CARDIOGRAPHY TECH documented in this encounter Plan of Treatment Not on filedocumented as of this encounter Visit Diagnoses Not on filedocumented in this encounter Additional Health Concerns Assessment Noted Time PHQ-9 Depression Total Score: 5 11/25/2018 3:25 PM ECHOCARDIOGRAPHY TECH documented as of this encounter Care Teams Antique Repairer Relationship Specialty Start Date End Date Teresita Garcia MD PCP - General Family Practice 01/22/11 [address] [place], [place] [phone] Teresita Garcia MD Assigned PCP 11/16/16 12/28/21 [address] [place] [address] documented as of this encounter
--- OUTSIDE RECORDS SUMMARY | 2022-09-04 16:44 | XMS_ITS | Encounter Summary ---
:1960 Author Organization [place] Address [address] [facility] [place] [address] Care Team Providers Name Role Phone Teresita Gracia MD Primary Care Provider Teresita Garcia MD Unavailable Reason for Referral Diagnostic Imaging Dexa (Routine) - Closed Specialty Diagnoses / Procedures Referred By Contact Refer red To Contact Diagnoses Osteoporosis without current pathological fracture, unspecified osteoporosis type Teresita Garcia MD Procedures DX Hip/Pelvis/Spine [address] [place], [place] [address] Referral ID Status Reason Start Date Expiration Date Visits Requ ested Visits Authorized [id number] Closed 12/03/2019 12/02/2020 1 1 OFFICER Reason for Visit Reason Onset Date Comments Radiology Visit 12/02/2019 need for Encounter Details Date Type Department Care Team Description 12/02/2019 Telephone [facility] Teresita Garcia MD Radiology Visit (need Clinic [place] [id number] [place] [address] for) [address] [place] [phone] Social History Tobacco Use Types Packs/Day Years [...] do you attend hoahaoism or Not asked rastafarian services? Do you belong to any clubs or Not asked organizations such as hoahaoism groups, unions, [employer] or athletic groups, or school groups? How [...] Thursday. Order t'd up. Joselin Najera RN OFFICER Telephone Encounter - Terestia Garcia MD - 12/02/2019 3:03 PM CST I looked at the records and last Dexa scan I've seen was in 12/2016, so it is not a bad idea to repeat his Dexa scan this year, if he is ok with it. Teresita Garcia MD [facility] [phone] OFFICER documented in this encounter Plan of Treatment Not on filedocumented as of this encounter Results DX Hip/Pelvis/Spine (04/04/2020 1:36 PM CDT) Anatomical Region Laterality Modality Dexa Bone Mineral Density Specimen (Source) Anatomical Location Collection Method / Collectio n Time Received Time / Laterality Volume Narrative 04/06/2020 1:21 PM CDT BONE DENSITOMETRY [address] [address] 04/04/2020 ?? PATIENT: Dejuan Rodriguez CHART: [id number] : ??1960 AGE: ??59 year old SEX: ??male REFERRING PROVIDER: Teresita Garcia MD ?? PROCEDURE: ??Bone density scanning was p erformed using DXA technology of the lumbar spine and hip. ??Scanning was performed on a [employer] scanner. ??Reporting is completed in the form [...] Depression Total Score: 8 12/02/2019 2:02 PM RISK OFFICER documented as of this encounter Care Teams Fountain Pen Nibs Inspector Relationship Specialty Start Date End Date Teresita Garcia MD PCP - General Family Practice 01/22/11 [address] [place], [place] [phone] Teresita Garcia MD Assigned PCP 11/16/16 12/28/21 [address] [place], [place] [phone] documented as of this encounter
--- OUTSIDE RECORDS SUMMARY | 2022-09-04 16:44 | XMS_ITS | Encounter Summary ---
:1960 Author Organization [place] Address [address] [place] [address] Care Team Providers Name Role Phone Teresita Garcia MD Primary Care Provider Teresita Garcia MD Unavailable Reason for Visit Reason Onset Date Comments Forms 11/22/2019 Physician Order Encounter Details Date Type Department Care Team Description 11/22/2019 Telephone [facility] Teresita Garcia MD Forms (Physician Order) Clinic [address] [place] [phone] Social History Tobacco Use Types Packs/Day [...] do you attend sikh or Not asked islam services? Do you [...] PM CST Form Faxed, 11/24/2019 Jackie Brito/AWILDA COUNSELOR Telephone Encounter - Rosy Brito - 11/22/2019 11:57 AM CST Received 2 page fax for Physician Order for Dr Garcia to complete. Form in the in- basket at [facility] in AA's folder. COUNSELOR documented in this encounter Plan of Treatment Not on filedocumented as of this encounter Visit Diagnoses Not on filedocumented in this encounter Additional Health Concerns Assessment Noted Time PHQ-9 Depression Total Score: 5 11/25/2018 3:25 PM AREA COUNSELOR documented as of this encounter Care Teams Health Coordinator Relationship Specialty Start Date End Date Teresita Garcia MD PCP - General Family Practice 01/22/11 [address] [place] [address] Teresita Garcia MD Assigned PCP 11/16/16 12/28/21 [address] [place] [address] documented as of this encounter
--- OUTSIDE RECORDS SUMMARY | 2022-09-04 16:44 | XMS_ITS | Encounter Summary ---
:1960 Author Organization [place] Address [facility] [place] [address] Care Team Providers Name Role Phone Teresita Garcia MD Primary Care Provider Teresita Garcia MD Unavailable Reason for Visit Reason Onset Date Comments Orders 11/22/2019 Encounter Details Date Type Department Care Team Description 11/22/2019 Telephone [facility] Roel Garcia MD Orders [place] [id number] [place] [address] [place], [place] [address] [place] [phone] Social History Tobacco Use Types Packs/Day Years [...] do you attend buddhist or Not asked congregational services? Do you [...] 2:00 PM CST RN placed call to [facility] received confidential voicemail Verbal orders provided for : PT 2 x week x 3 weeks for transfer training and exercise WIRE MESH KNITTER 1 x week x 3 weeks to assist with showering OT 1 x If questions / concerns return call to clinic nurse Advised to fax for written signature from pcp Blanca Choi, Registered Nurse [facility] ' MACY PICKING TECH Telephone Encounter - Marlen Laird - 11/22/2019 11:46 AM CST Order/Referral Request: Who is requesting: Jayde pedroza [facility] Orders being requested: Admitted to home care [...] Okay to leave detailed message? Yes at [facility] phone number: [phone] Routing MACY PICKING TECH documented in this encounter Plan of Treatment Not on filedocumented as of this encounter Visit Diagnoses Not on filedocumented in this encounter Additional Health Concerns Assessment Noted Time PHQ-9 Depression Total Score: 5 11/25/2018 3:25 PM PHARMACY PICKING TECH documented as of this encounter Care Teams Zinc Furnace Charger Relationship Specialty Start Date End Date Teresita Garcia MD PCP - General Family Practice 01/22/11 [address] [place], [place] [phone] Teresita Garcia MD Assigned PCP 11/16/16 12/28/21 [address] [place] [address] documented as of this encounter
--- OUTSIDE RECORDS SUMMARY | 2022-09-04 16:44 | XMS_ITS | Encounter Summary ---
:1960 Author Organization [place] Address [facility] [place] [address] Care Team Providers Name Role Phone Teresita Garcia MD Primary Care Provider Teresita Garcia MD Unavailable Encounter Details Date Type Department Care Team Description 11/17/2019 Telephone [facility] Roel Garcia MD [place] [address] [phone] Social History Tobacco Use Types Packs/Day Years [...] do you attend orthodox or Not asked yazidism services? Do you [...] order given to Home care.-Shanda Soto, EMTB TESTER documented in this encounter Plan of Treatment Not on filedocumented as of this encounter Visit Diagnoses Not on filedocumented in this encounter Additional Health Concerns Assessment Noted Time PHQ-9 Depression Total Score: 5 11/25/2018 3:25 PM SODA TESTER documented as of this encounter Care Teams Screen Printing Press Operator Relationship Specialty Start Date End Date Teresita Garcia MD PCP - General Family Practice 01/22/11 [address] [place], [place] [phone] Teresita Garcia MD Assigned PCP 11/16/16 12/28/21 [address] [place] [address] documented as of this encounter
--- OUTSIDE RECORDS SUMMARY | 2022-09-04 16:45 | XMS_ITS | Encounter Summary ---
:1960 Author Organization [place] Address [address] [facility] [place] [address] Care Team Providers Name Role Phone Teresita Garcia MD Primary Care Provider Teresita Garcia MD Unavailable Teresita Garcia MD Unavailable Reason for Visit Reason Comments Pre-Op Exam Encounter Details Date Type Department Care Team Description 11/25/2018 Office Visit [facility] Teresita Garcia MD Preop general physical exam (Primary Dx) ; Clinic [address] Osteoporosis without current pathologica l fracture, unspecified osteoporosis type [id number] [place] [phone] Social History Tobacco Use Types Packs/Day [...] do you attend religion or Not asked evangelical services? Do you [...] Comments Blood Pressure 121/83 11/25/2018 3:16 PM RISK MANAGEMENT INTERN Pulse 98 11/25/2018 3:16 PM RISK MANAGEMENT INTERN Temperature 36.7 ??C (98.1 ??F) 11/25/2018 3:16 PM RISK MANAGEMENT INTERN Respiratory Rate 20 11/25/2018 3:16 PM RISK MANAGEMENT INTERN Oxygen Saturation 97% 11/25/2018 3:16 PM RISK MANAGEMENT INTERN Inhaled Oxygen Concentration - - Weight 78 kg (172 lb) 11/25/2018 3:16 PM RISK MANAGEMENT INTERN Height 171.5 cm (5' 7.5) 11/25/2018 3:16 PM RISK MANAGEMENT INTERN Body Mass Index 26.54 11/25/2018 3:16 PM RISK MANAGEMENT INTERN documented in this encounter Patient Instructions Patient [...] and have clean sheets on your bed. MANAGEMENT INTERN documented in this encounter Progress Notes Teresita Garcia MD - 11/25/2018 3:00 PM CST [address] [address] Dept: [phone] PRE-OP EVALUATION: Today's date: 11/25/2018 Dejuan Rodriguez (: 1960) presents for pre-operative evaluation assessment as requested byDr. Ruiz. He requires evaluation and anesthesia risk assessment prior to undergoing surgery/procedure for treatment of bladder . Proposed Surgery/ Procedure: remove bladder stone Date of Surgery/ Procedure: 12/02/18 Time of Surgery/ Procedure: 11:30 Hospital/Surgical Facility: [facility] Primary Physician: Teresiat Garcia Type of Anesthesia Anticipated: General Patient [...] process. Provider to review and confirm.) ??? Qupu-Eltgw-Zxoofle disease 05/14/2011 Priority: Medium ??? Atopic rhinitis [...] ??? Multiple sclerosis (H) sees neurology at [facility] ??? Osteoporosis 01/20/2017 In the spine. ??? [...] cardiovascular risks for perioperative complications such as (IA, PE, VFib and 3?? AV Block): No [...] evaluation report is provided to requesting physician. [facility] Preop Guidelines Revised Cardiac Risk Index MANAGEMENT INTERN documented in this encounter Plan of Treatment Not on filedocumented as of this encounter Procedures Procedure Name Priority Date/Time Associated Diagnosis Comme nts VITAMIN D Routine 11/25/2018 3:43 PM Osteoporosis without R esults for this DEFICIENCY RISK MANAGEMENT INTERN current pathological procedu re are in SCREENING fracture, unspecified the re sults osteoporosis type section. CREATININE Routine 11/25/2018 3:43 PM Preop general Results for this RISK MANAGEMENT INTERN physical exam procedure are in the results section. documented in this encounter Results Creatinine (11/25/2018 3:43 PM RISK MANAGEMENT INTERN) P athologist Signature Creatinine 0.99 0.66 - 11/26/2018 [facility] 1.25 mg/dL 1:15 PM [facility] GFR Estimate 84 >60 11/26/2018 [facility] mL/min/{1. 1:15 PM [facility] 73_m2} [facility] Comment: Non GFR Calc Starting 09/14/2018, serum creatinine ba sed estimated GFR (eGFR) will be calculated using the Chronic Kidney Dise ase Epidemiology Collaboration (CKD-EPI) equation. GFR Estimate If >90 >60 mL/min/{1.73_m2} 11/26/2018 1: 15 PM [facility] Black [facility] Comment: GFR Calc Starting 09/14/2018, serum creatinine ba sed estimated GFR (eGFR) will be calculated using the Chronic Kidney Dise ase Epidemiology Collaboration (CKD-EPI) equation. Specimen Anatomical Collection Method Collection Time Receive d Time (Source) Location / / Volume Laterality Blood specimen 11/25/2018 3:43 PM 019 3:44 (specimen) RISK MANAGEMENT INTERN PM RISK MANAGEMENT INTERN Teresita Garcia MD LAB - BLOOD ORDERABLES Performing Organization Address City/State/ZIP Code Phon e Number [facility] [address] [place] [address] Vitamin D Deficiency (11/25/2018 3:43 PM RISK MANAGEMENT INTERN) athologist Signature Vitamin D 58 20 - 75 11/26/2018 [facility] ug/L 4:38 PM RISK MANAGEMENT INTERN [place] MEDICAL screening [facility] Comment: Season, race, dietary intake, and treatm ent affect the concentration of 42-aavqukl-Icovuuc D. Values may decreas e during winter [...] specimen 11/25/2018 3:43 PM 019 3:44 (specimen) RISK MANAGEMENT INTERN PM RISK MANAGEMENT INTERN Teresita Garcia MD LAB - BLOOD ORDERABLES Performing Organization Address City/State/ZIP Code Phon e Number [facility] [address] [place] [address] [facility] documented in this encounter Visit Diagnoses Diagnosis Preop general physical exam - Primary Other specified pre-operative examinatio n Osteoporosis without current pathologica l fracture, unspecified osteoporosis type documented in this encounter Additional Health Concerns Assessment Noted Time PHQ-9 Depression Total Score: 5 11/25/2018 3:25 PM RISK MANAGEMENT INTERN documented as of this encounter Care Teams Strap Sewer Relationship Specialty Start Date End Date Teresita Garcia MD PCP - General Family Practice 01/22/11 [address] [place] [address] Teresita Garcia MD PCP - Assigned PCP 11/16/16 11/30/18 [address] [place] [address] Teresita Garcia MD Assigned PCP 11/16/16 12/28/21 [address] [place] [address] documented as of this encounter
--- OUTSIDE RECORDS SUMMARY | 2022-09-04 16:45 | XMS_ITS | Encounter Summary ---
:1960 Author Organization [place] Address [facility] [place] [address] Care Team Providers Name Role Phone Teresita Garcia MD Primary Care Provider Teresita Garcia MD Unavailable Teresita Garcia MD Unavailable Reason for Visit Reason Comments Clinic Care Coordination - Initial ccsw Encounter Details Date Type Department Care Team Description 11/25/2017 Care Coordination [facility] Teresita Garcia MD Clinic Care Care Coordination [address] [facility] Coordination - [address] [place] [address] ([facility] w) [facility] [id number] [place] [address] [phone] [address] (Work) [phone] Social History Tobacco Use Types Packs/Day Years [...] do you attend mandaeism or Not asked tenriism services? Do you [...] unable to contact Bailey Boyd Social Work Castings Trimmer, RODERICK MCLAUGHLIN P:[phone] [facility] Bailey Boyd LGSW - 12/03/2017 3:15 PM CST Clinic Care Coordination Contact RUST/Voicemail Clinical Data: pt returned this CCSWs call and left a voicemail. CCSW attempted to reach him Outreach attempted x 1. Left message on voicemail with call back information and requested return call. Plan: information systems coordinator will try again in 3-5 business days if he does not call back. Bailey Boyd Social Work Castings Trimmer, ARNOLDO MARKETING SERVICES VICE PRESIDENT [place] [facility]: [facility] P:[phone] / Signed December 03, 2017 STRIAL AUTOMATION ENGINEER Bailey Boyd LGSW - 12/03/2017 10:35 AM CST Clinic Care Coordination Contact [place]/Voicemail Clinical Data: see below Outreach attempted x 2. Left message on voicemail with call back information and requested return call. Plan: information systems coordinator will send a RUST letter and access plan and review in 2-3 weeks. Bailey Boyd Social Work Castings Trimmer, ARNOLDO MARKETING SERVICES VICE PRESIDENT [facility]: [facility] P:[phone] / Signed December 03, 2017 STRIAL AUTOMATION ENGINEER Bailey Boyd LGSW - 11/25/2017 9:39 AM CST Clinic Care Coordination Contact RUST/Voicemail Clinical Data: Has MS. Needing help in the home Outreach attempted x 1. Left message on voicemail with call back information and requested return call. Plan: information systems coordinator will try again in 2-3 business days. Bailey Boyd, Social Work Castings Trimmer, SERICULTURE TEACHER, MARKETING SERVICES VICE PRESIDENT [place] [facility]: [place] [place] [place] P:[phone] / Signed November 25, 2017 STRIAL AUTOMATION ENGINEER documented in this encounter Plan of Treatment Not on filedocumented as of this encounter Visit Diagnoses Not on filedocumented in this encounter Additional Health Concerns Assessment Noted Time PHQ-9 Depression Total Score: 2 11/25/2017 8:11 AM INDUSTRIAL AUTOMATION ENGINEER documented as of this encounter Care Teams Structured Cabling Technician Relationship Specialty Start Date End Date Teresita Garcia MD PCP - General Family Practice 01/22/11 [address] [place] [address] Teresita Garcia MD PCP - Assigned PCP 11/16/16 11/30/18 [address] [place] [address] Teresita Garcia MD Assigned PCP 11/16/16 12/28/21 [address] [place] [address] documented as of this encounter
--- OUTSIDE RECORDS SUMMARY | 2022-09-04 16:45 | XMS_ITS | Encounter Summary ---
:1960 Author Organization [place] Address [address] [facility] [place] [address] Care Team Providers Name Role Phone Teresita Garcia MD Primary Care Provider Teresita Garcia MD Unavailable Teresita Garcia MD Unavailable Reason for Visit Reason Comments Pre-Op Exam Encounter Details Date Type Department Care Team Description 01/20/[address] [facility] Teresita Garcia MD Preop general physical exam (Primary Dx) ; Clinic [address] [phone] Social History Tobacco Use Types Packs/Day [...] do you attend hoahaoism or Not asked anabaptist services? Do you [...] Garcia MD - 01/20/2017 11:05 AM CDT [address] [phone] Dept: [phone] PRE-OP EVALUATION: Today's date: 01/20/2017 Dejuan Rodriguez (: 1960) presents for pre-operative evaluation assessment as requested byDr. Enriquez. He requires evaluation and anesthesia risk assessment prior to undergoing surgery/procedure for treatment of pump . Proposed procedure: pump replacement Date of Surgery/ Procedure: 01/27/17 Time of Surgery/ Procedure: 10:30 Hospital/Surgical Facility: [facility] Surgery Primary Physician: Teresita Garcia Type [...] process. Provider to review and confirm.) ??? Buhw-Kiixc-Thqfwlz disease 05/14/2011 Priority: Medium ??? Atopic rhinitis [...] ??? Multiple sclerosis (H) sees neurology at [facility] ??? Other specified disorder of bladder neurogenic- [...] evaluation report is provided to requesting physician. [facility] Preop Guidelines documented in this encounter Nursing [...] Depression Total Score: 4 10/18/2016 7:15 AM TINSMITH HELPER documented as of this encounter Care Teams Proc Tech Relationship Specialty Start Date End Date Teresita Garcia MD PCP - General Family Practice 01/22/11 [address] [place] [address] Teresita Garcia MD PCP - Assigned PCP 11/16/16 11/30/18 [address] [place] [address] Teresita Garcia MD Assigned PCP 11/16/16 12/28/21 [address] [place] [address] documented as of this encounter
--- OUTSIDE RECORDS SUMMARY | 2022-09-04 16:45 | XMS_ITS | Encounter Summary ---
:1960 Author Organization [place] Address [address] [place] [address] Care Team Providers Name Role Phone Teresita Garcia MD Primary Care Provider Teresita Garcia MD Unavailable Teresita Garcia MD Unavailable Reason for Visit Reason Comments Medication Refill Alendronate Encounter Details Date Type Department Care Team Description 12/22/2017 Refill [facility] Roel Garcia MD Medication Refill [place] [id number] [place] [address] (Alendronate) [address] [place] [address] [phone] Social History Tobacco Use Types Packs/Day Years [...] PM CDT Ordered. Thanks. Teresita Garcia MD [facility] [phone] Telephone Encounter - Karen Covarrubias RN - [...] prescribed it and why? Teresita Garcia MD [facility] [phone] r Telephone Encounter - Deann Lora RN [...] to contact him instead. Teresita Garcia MD [facility] [phone] Telephone Encounter - Hal Sierra RN - [...] Depression Total Score: 2 11/25/2017 8:11 AM RENAL SOCIAL WORKER documented as of this encounter Care Teams Cardroom Plastic Card Grader Relationship Specialty Start Date End Date Teresita Garcia MD PCP - General Family Practice 01/22/11 [address] [place], [place] [phone] Teresita Garcia MD PCP - Assigned PCP 11/16/16 11/30/18 [address] [place] [address] Teresita Garcia MD Assigned PCP 11/16/16 12/28/21 [address] [place] [address] documented as of this encounter
--- OUTSIDE RECORDS SUMMARY | 2022-09-04 16:45 | XMS_ITS | Encounter Summary ---
:1960 Author Organization [place] Address [address] [place] [address] Care Team Providers Name Role Phone Teresita Garcia MD Primary Care Provider Teresita Garcia MD Unavailable Reason for Visit Reason Onset Date Comments Refill Request 08/19/2019 Encounter Details Date Type Department Care Team Description 08/19/2019 Refill [facility] Roel Garcia MD Refill Request [address] [address] [place] [address] [phone] Social History Tobacco Use Types Packs/Day Years [...] do you attend protestant or Not asked restorationism services? Do you [...] Depression Total Score: 5 11/25/2018 3:25 PM US MARKETING DIRECTOR documented as of this encounter Care Teams Hr Analyst Relationship Specialty Start Date End Date Teresita Garcia MD PCP - General Family Practice 01/22/11 [address] [place], [place] [phone] Teresita Garcia MD Assigned PCP 11/16/16 12/28/21 [address] [place] [address] documented as of this encounter
--- OUTSIDE RECORDS SUMMARY | 2022-09-04 16:45 | XMS_ITS | Encounter Summary ---
:1960 Author Organization [place] Address [address] [place] [address] Care Team Providers Name Role Phone Teresita Garcia MD Primary Care Provider Teresita Garcia MD Unavailable Teresita Garcia MD Unavailable Encounter Details Date Type Department Care Team Description 12/16/2016 Medical Correspondence [facility] HIM VIKA Bray [facility]- [facility] Non-Provider DOCUMENTATION OF FACE Health Information TO FACE E NCOUNTER Management-CHERISE 10/17/[address] [place] [address] Social History Tobacco Use Types [...] do you attend taoism or Not asked latter-day services? Do you [...] Depression Total Score: 4 10/18/2016 7:15 AM CONCERT PIANIST documented as of this encounter Care Teams Tipple Mechanic Relationship Specialty Start Date End Date Teresita Garcia MD PCP - General Family Practice 01/22/11 [address] [place], [place] [phone] Teresita Garcia MD PCP - Assigned PCP 11/16/16 11/30/18 [address] [place] [address] Teresita Garcia MD Assigned PCP 11/16/16 12/28/21 [address] [place], [place] [phone] documented as of this encounter
--- OUTSIDE RECORDS SUMMARY | 2022-09-04 16:45 | XMS_ITS | Encounter Summary ---
:1960 Author Organization [place] Address [address] [place] [address] Care Team Providers Name Role Phone Teresita Garcia MD Primary Care Provider Reason for Visit Reason Onset Date Comments Home Care/Hospice 10/20/2016 home care assessment Encounter Details Date Type Department Care Team Description 10/20/2016 Telephone [facility] Teresita Garcia MD Home Care/Hospice (home Clinic [address] care assessment) [address] [place] [phone] Social History Tobacco Use Types Packs/Day Years [...] do you attend latter-day or Not asked rastafarian services? Do you [...] RN, BSN Message handled by Nurse Triage. DATION STAGE TEACHER documented in this encounter Plan of Treatment Not on filedocumented as of this encounter Visit Diagnoses Not on filedocumented in this encounter Additional Health Concerns Assessment Noted Time PHQ-9 Depression Total Score: 4 10/18/2016 7:15 AM FOUNDATION STAGE TEACHER documented as of this encounter Care Teams Tax Adjuster Relationship Specialty Start Date End Date Teresita Garcia MD PCP - General Family Practice 01/22/11 [address] [place] [address] documented as of this encounter
--- OUTSIDE RECORDS SUMMARY | 2022-09-04 16:45 | XMS_ITS | Encounter Summary ---
:1960 Author Organization [place] Address [facility] [place] [address] Care Team Providers Name Role Phone Teresita Garcia MD Primary Care Provider Teresita Garcia MD Unavailable Reason for Visit Reason Comments Medication Refill fosamax Encounter Details Date Type Department Care Team Description 06/14/2019 Refill [facility] Roel Garcia MD Medication Refill [place] [address] [place] [address] (fosamax) [address] [place] [phone] Social History Tobacco Use Types Packs/Day Years [...] do you attend rastafari or Not asked mormon services? Do you [...] Depression Total Score: 5 11/25/2018 3:25 PM MAILROOM MESSENGER documented as of this encounter Care Teams Clinical Documentation Spec Relationship Specialty Start Date End Date Teresita Garcia MD PCP - General Family Practice 01/22/11 [address] [facility], [place] [phone] Teresita Garcia MD Assigned PCP 11/16/16 12/28/21 [address] [place] [address] documented as of this encounter
--- OUTSIDE RECORDS SUMMARY | 2022-09-04 16:45 | XMS_ITS | Encounter Summary ---
:1960 Author Organization [place] Address [address] [place] [address] Care Team Providers Name Role Phone Teresita Garcia MD Primary Care Provider Reason for Visit Reason Onset Date Comments Nurse Advice Line 10/13/2016 [facility] Encounter Details Date Type Department Care Team Description 10/13/2016 Telephone [facility] Teresita Garcia MD Nurse Advice Line [address] ([facility]) [address] [place] [phone] Social History Tobacco Use Types Packs/Day Years [...] do you attend uatsdin or Not asked pentecostal services? Do you [...] dc'd from Facundo flores MS flair 10-15-16 [facility] requesting approval of home care orders Follow up appt 10/17/16 Jose Authorized per protocol Deann Lora RN, BS Message handled by Nurse Triage . UATOR TRANSFER STUDENTS documented in this encounter Plan of Treatment Not on filedocumented as of this encounter Visit Diagnoses Not on filedocumented in this encounter Care Teams Picker Tender Helper Relationship Specialty Start Date End Date Teresita Garcia MD PCP - General Family Practice 01/22/11 [address] [place] [address] documented as of this encounter
--- OUTSIDE RECORDS SUMMARY | 2022-09-04 16:45 | XMS_ITS | Encounter Summary ---
:1960 Author Organization [place] Address [address] [place] [address] Care Team Providers Name Role Phone Teresita Garcia MD Primary Care Provider Teresita Garcia MD Unavailable Teresita Garcia MD Unavailable Reason for Visit Reason Onset Date Comments Forms 11/26/2016 [facility] Encounter Details Date Type Department Care Team Description 11/26/2016 Telephone [facility] Teresita Garcia MD Forms ([address]) [address] [place] [phone] Social History Tobacco Use Types [...] do you attend hindu or Not asked congregational services? Do you [...] CST Form completed and faxed,11/27/16 Jackie Brito/AWILDA KERCHIEF PRESSER Telephone Encounter - Malena Hankins - 11/26/2016 1:52 PM CST Recd 2 page fax from [facility]. Please complete Face to Face Encounter and fax to [phone]. Form in AA folder at [place]. Malena Hankins Presser Cotton Ginning KERCHIEF PRESSER documented in this encounter Plan of Treatment Not on filedocumented as of this encounter Visit Diagnoses Not on filedocumented in this encounter Additional Health Concerns Assessment Noted Time PHQ-9 Depression Total Score: 4 10/18/2016 7:15 AM HANDKERCHIEF PRESSER documented as of this encounter Care Teams Petroleum Terminal Plant Operator Relationship Specialty Start Date End Date Teresita Garcia MD PCP - General Family Practice 01/22/11 [address] [place] [address] Teresita Garcia MD PCP - Assigned PCP 11/16/16 11/30/18 [address] [place] [address] Teresita Garcia MD Assigned PCP 11/16/16 12/28/21 [address] [place] [address] documented as of this encounter
--- OUTSIDE RECORDS SUMMARY | 2022-09-04 16:45 | XMS_ITS | Encounter Summary ---
:1960 Author Organization [place] Address [address] [facility] [address] Care Team Providers Name Role Phone Teresita Garcia MD Primary Care Provider Teresita Garcia MD Unavailable Teresita Garcia MD Unavailable Encounter Details Date Type Department Care Team Description 10/16/2016 Medical Correspondence [facility] 10/16/16 - Health Information 12/14/16 Management-CHERISE [address] [place] [address] Social History Tobacco Use Types [...] do you attend jew or Not asked faith services? Do you [...] on filedocumented in this encounter Care Teams Supervisor Fishing Relationship Specialty Start Date End Date Teresita Garcia MD PCP - General Family Practice 01/22/11 [address] [place] [address] Teresita Garcia MD PCP - Assigned PCP 11/16/16 11/30/18 [address] [place] [address] Teresita Garcia MD Assigned PCP 11/16/16 12/28/21 [address] [place] [address] documented as of this encounter
--- OUTSIDE RECORDS SUMMARY | 2022-09-04 16:45 | XMS_ITS | Encounter Summary ---
:1960 Author Organization [place] Address [facility] [place] [address] Care Team Providers Name Role Phone Teresita Garcia MD Primary Care Provider Reason for Visit Reason Comments Mouth/Lip Problem Encounter Details Date Type Department Care Team Description 04/07/2015 Office Visit [facility] Otoniel Mccrary (Primary Clinic [place] DEVORAH Burkett Dx) [address] [place] [phone] Social History Tobacco Use Types Packs/Day Years [...] Care: ?? You may find that soft, btoq-wa-ooil foods cause less pain. Avoid sharp or [...] eat or swallow due to pain ?? [phone] [employer]. [address] [place] [address], [place] [address]. All rights reserved. This information is not [...] affect normal/bright Diagnostic Test Results: none ASSESSMENT/PLAN: (988.9) Skin lesion (primary encounter diagnosis) Comment: Appears [...] improve. Sooner if worsening Otoniel Mccrary PA-C [facility] documented in this encounter Nursing [...] tissue documented in this encounter Care Teams Director Of Events Relationship Specialty Start Date End Date Teresita Garcia MD PCP - General Family Practice 01/22/11 [address] [place] [address] documented as of this encounter
--- OUTSIDE RECORDS SUMMARY | 2022-09-04 16:45 | XMS_ITS | Encounter Summary ---
:1960 Author Organization [place] Address [facility] [place] [address] Care Team Providers Name Role Phone Teresita Garcia MD Primary Care Provider Reason for Visit Reason Onset Date Comments Refill Request 07/01/2016 ketoconazole (NIZORA L) 2 % shampoo Encounter Details Date Type Department Care Team Description 07/01/2016 Refill [facility] Roel Garcia MD Refill Request [place] [id number] [place] [address] (ketoconazole (NIZORAL) [address] [place], [place] 2 % shampoo) [place], [place] [phone] Social History Tobacco Use Types Packs/Day Years [...] do you attend religion or Not asked confucianist services? Do you [...] Last Office Visit with G, P or [facility] prescribing provider: 04/07/2015 [place] documented in this encounter Plan of Treatment Not on filedocumented as of this encounter Visit Diagnoses Diagnosis Seborrheic dermatitis of scalp - Primary Other seborrheic dermatitis documented in this encounter Care Teams Automobile Upholsterer Relationship Specialty Start Date End Date Teresita Garcia MD PCP - General Family Practice 01/22/11 [address] [place] [address] documented as of this encounter
--- OUTSIDE RECORDS SUMMARY | 2022-09-04 16:45 | XMS_ITS | Encounter Summary ---
:1960 Author Organization [place] Address [address] [facility] [place] [address] Care Team Providers Name Role Phone Teresita Garcia MD Primary Care Provider Teresita Garcia MD Unavailable Teresita Garcia MD Unavailable Reason for Visit Reason Onset Date Comments Nurse Advice Line 06/08/2017 osteoporesis Encounter Details Date Type Department Care Team Description 06/08/2017 Telephone [facility] Teresita Garcia MD Nurse Advice Line Clinic [address] (osteoporesis) [address] [place] [address] [phone] Social History Tobacco Use Types Packs/Day [...] do you attend tenriism or Not asked rastafarian services? Do you [...] 500mg-400 units twice daily. Teresita Garcia MD [facility] [phone] Telephone Encounter - Deann Lora RN - 06/08/2017 3:40 PM CDT Pt called in again about calcium States he had dexa scan at [facility] within last or so, showed OP Wondering [...] Depression Total Score: 4 10/18/2016 7:15 AM AMUSEMENT PARK RIDE MECHANIC documented as of this encounter Care Teams Drill Instructor Relationship Specialty Start Date End Date Teresita Garcia MD PCP - General Family Practice 01/22/11 [address] [place] [address] Teresita Garcia MD PCP - Assigned PCP 11/16/16 11/30/18 [address] [place] [address] Teresita Garcia MD Assigned PCP 11/16/16 12/28/21 [address] [place] [address] documented as of this encounter
--- OUTSIDE RECORDS SUMMARY | 2022-09-04 16:45 | XMS_ITS | Encounter Summary ---
:1960 Author Organization [place] Address [address] [facility] [place] [address] Care Team Providers Name Role Phone Teresita Garcia MD Primary Care Provider Teresita Garcia MD Unavailable Teresita Garcia MD Unavailable Reason for Referral Care Coordination - Closed Specialty Diagnoses / Procedures Referred By Contact Refer red To Contact Diagnoses Multiple sclerosis (H) Teresita Garcia MD [facility] [address] [facility] [address] [place], [place] [address] [place] [address] Phone: Referral ID Status Reason Start Date Expiration Date Visits Requ ested Visits Authorized [id number] Closed 11/24/2017 11/24/2018 1 1 POINT SPLITTER Reason for Visit Reason Comments Foot Problems swelling in both feet xsever al months Encounter Details Date Type Department Care Team Description 11/24/2017 Office Visit [facility] Teresita Garcia MD Leg swelling (Primary Dx); Clinic [place] [id number] [place] [address] Venous stasis; [address] [place], [place] Multiple sclerosis (H) [place] [phone] Social History Tobacco Use Types Packs/Day Years [...] do you attend nondenominational or Not asked protestant services? Do you belong to any clubs or Not asked organizations such as nondenominational groups, unions, fraEntigo or athletic groups, or school groups? How [...] Comments Blood Pressure 119/78 11/24/2017 11:13 AM BALL POINT SPLITTER Pulse 85 11/24/2017 11:13 AM BALL POINT SPLITTER Temperature 36.7 ??C (98 ??F) 11/24/2017 11:13 AM BALL POINT SPLITTER Respiratory Rate 20 11/24/2017 11:13 AM BALL POINT SPLITTER Oxygen Saturation 100% 11/24/2017 11:13 AM BALL POINT SPLITTER Inhaled Oxygen Concentration - - Weight 76.7 kg (169 lb) 11/24/2017 11:13 AM BALL POINT SPLITTER Height 171.5 cm (5' 7.5) 11/24/2017 11:13 AM BALL POINT SPLITTER Body Mass Index 26.08 11/24/2017 11:13 AM BALL POINT SPLITTER documented in this encounter Progress Notes Teresita [...] scalp ??? Status post hip replacement ??? Xdza-Zekjc-Wqfwbtx disease ??? Atopic rhinitis ??? Major depressive [...] - CARE COORDINATION REFERRAL Teresita Garcia MD [facility] POINT SPLITTER documented in this encounter Plan of Treatment Not on filedocumented as of this encounter Procedures Procedure Name Priority Date/Time Associated Comments Diagnosis N TERMINAL PRO BNP Routine 11/24/2017 11:45 AM Venous stasis R esults for this OUTPATIENT BALL POINT SPLITTER procedure are i n the results section. HEPATIC FUNCTION Routine 11/24/2017 11:45 AM Venous stasis Res ults for this PANEL BALL POINT SPLITTER procedure are i n the results section. BASIC METABOLIC Routine 11/24/2017 11:45 AM Venous stasis Resu lts for this PANEL BALL POINT SPLITTER procedure are i n the results section. CBC WITH PLATELETS Routine 11/24/2017 11:45 AM Venous stasis R esults for this BALL POINT SPLITTER procedure are i n the results section. documented in this encounter Results (ABNORMAL) Hepatic panel (11/24/2017 11:45 AM BALL POINT SPLITTER) Patholo gist Method Time Signature Bilirubin Direct 0.1 0.0 - 0.2 11/24/2017 [place] mg/dL 5:24 PM BALL POINT SPLITTER [facility] Bilirubin Total 0.7 0.2 - 1.3 11/24/2017 [place] mg/dL 5:24 PM BALL POINT SPLITTER [facility] Albumin 3.6 3.4 - 5.0 11/24/2017 [place] g/dL 5:24 PM BALL POINT SPLITTER [facility] Protein Total 6.6 (L) 6.8 - 8.8 11/24/2017 [place] g/dL 5:24 PM [facility] Alkaline 58 40 - 150 11/24/2017 [place] Phosphatase U/L 5:25 PM [facility] ALT 27 0 - 70 11/24/2017 [facility] U/L 5:24 PM BALL POINT SPLITTER [facility] AST 24 0 - 45 11/24/2017 [facility] U/L 5:24 PM [facility] Specimen Anatomical Collection Method Collection Time Receive d Time (Source) Location / / Volume Laterality Blood specimen 11/24/2017 11:45 8 (specimen) AM BALL POINT SPLITTER 11:46 AM BALL POINT SPLITTER Teresita Garcia MD LAB - BLOOD ORDERABLES Performing Organization Address City/State/ZIP Code Phon e Number [facility] [address] [place] [address] CBC with platelets (11/24/2017 11:45 AM BALL POINT SPLITTER) P athologist Signature WBC 8.6 4.0 - 11.0 11/24/2017 [place] 10e9/L 12:09 PM BALL POINT SPLITTER [facility] RBC Count 4.75 4.4 - 5.9 11/24/2017 [place] 10e12/L 12:09 PM BALL POINT SPLITTER [facility] Hemoglobin 14.6 13.3 - 11/24/2017 [place] 17.7 g/dL 12:09 PM BALL POINT SPLITTER [facility] Hematocrit 43.1 40.0 - 11/24/2017 [place] 53.0 % 12:09 PM [facility] MCV 91 78 - 100 11/24/2017 [place] fl 12:09 PM BALL POINT SPLITTER [facility] MCH 30.7 26.5 - 11/24/2017 [place] 33.0 pg 12:09 PM [facility] MCHC 33.9 31.5 - 11/24/2017 [place] 36.5 g/dL 12:09 PM [facility] RDW 12.7 10.0 - 11/24/2017 [place] 15.0 % 12:09 PM [facility] Platelet Count 168 150 - 450 11/24/2017 [place] 10e9/L 12:09 PM [facility] Specimen Anatomical Collection Method Collection Time Receive d Time (Source) Location / / Volume Laterality Blood specimen 11/24/2017 11:45 8 (specimen) AM BALL POINT SPLITTER 11:46 AM BALL POINT SPLITTER Teresita Garcia MD LAB - BLOOD ORDERABLES Performing Organization Address City/State/ZIP Code Phon e Number [facility] [address] [place] [address] N terminal pro BNP outpatient (11/24/2017 11:45 AM BALL POINT SPLITTER) athologist Signature N-Terminal Pro 40 0 - 125 11/24/2017 [facility] Bnp pg/mL 6:47 PM BALL POINT SPLITTER [facility] Comment: Reference range shown and results flagge [...] Blood specimen 11/24/2017 11:45 8 (specimen) AM BALL POINT SPLITTER 11:46 AM BALL POINT SPLITTER Teresita Garcia MD LAB - BLOOD ORDERABLES Performing Organization Address City/State/ZIP Code Phon e Number [facility] [address] [place] [address] [facility] Basic metabolic panel (11/24/2017 11:45 AM BALL POINT SPLITTER) P athologist Signature Sodium 139 133 - 144 11/24/2017 [facility] mmol/L 5:24 PM [facility] Potassium 3.7 3.4 - 5.3 11/24/2017 [place] mmol/L 5:24 PM [facility] Chloride 105 94 - 109 11/24/2017 [facility] mmol/L 5:24 PM [facility] Carbon Dioxide 31 20 - 32 11/24/2017 [facility] mmol/L 5:24 PM [facility] Anion Gap 3 3 - 14 11/24/2017 [place] mmol/L 5:24 PM [facility] Glucose 95 70 - 99 11/24/2017 [place] mg/dL 5:24 PM [facility] Urea Nitrogen 15 7 - 30 11/24/2017 [facility] mg/dL 5:24 PM [facility] Creatinine 0.96 0.66 - 11/24/2017 [place] 1.25 mg/dL 5:24 PM [facility] GFR Estimate 81 >60 11/24/2017 [place] mL/min/1.7 5:[address] Comment: Non GFR Calc GFR Estimate If >90 >60 mL/min/1.7m2 11/24/2017 5:24 P M [facility] Black [facility] Comment: GFR Calc Calcium 9.2 8.5 - 10.1 mg/dL 11/24/2017 5:24 PM [facility] Specimen Anatomical Collection Method Collection Time Receive d Time (Source) Location / / Volume Laterality Blood specimen 11/24/2017 11:45 8 (specimen) AM BALL POINT SPLITTER 11:46 AM BALL POINT SPLITTER Teresita Garcia MD LAB - BLOOD ORDERABLES Performing Organization Address City/State/ZIP Code Phon e Number [facility] [address] [place] [address] documented in this encounter Visit Diagnoses Diagnosis Leg swelling - Primary Swelling of limb Venous stasis Unspecified venous (peripheral) insuffic iency Multiple sclerosis (H) Multiple sclerosis documented in this encounter Additional Health Concerns Assessment Noted Time PHQ-9 Depression Total Score: 2 11/25/2017 8:11 AM BALL POINT SPLITTER documented as of this encounter Care Teams Black Studies Professor Relationship Specialty Start Date End Date Teresita Garcia MD PCP - General Family Practice 01/22/11 [address] [place], [place] [phone] Teresita Garcia MD PCP - Assigned PCP 11/16/16 11/30/18 [address] [place], [place] [phone] Teresita Garcia MD Assigned PCP 11/16/16 12/28/21 [address] [place], [place] [phone] documented as of this encounter
--- OUTSIDE RECORDS SUMMARY | 2022-09-04 16:45 | XMS_ITS | Encounter Summary ---
:1960 Author Organization [place] Address [address] [facility] [address] Care Team Providers Name Role Phone Teresita Garcia MD Primary Care Provider Teresita Garcia MD Unavailable Teresita Garcia MD Unavailable Reason for Visit Reason Comments Ear Problem left ear plugged x1 week Encounter Details Date Type Department Care Team Description 05/08/2017 Office Visit [facility] Teresita Garcia MD Bilateral impacted Clinic [address] (Primary Dx) [phone] [place] [address] [phone] Social History Tobacco Use Types Packs/Day [...] do you attend baptism or Not asked gnosticist services? Do you [...] scalp ??? Status post hip replacement ??? Vbgc-Fyike-Uhbibqh disease ??? Atopic rhinitis ??? Major depressive [...] 3 For future attacks. Teresita Garcia MD [facility] documented in this encounter Nursing Notes [...] Depression Total Score: 4 10/18/2016 7:15 AM SNOW MAKER documented as of this encounter Care Teams Test Engineering Technician Relationship Specialty Start Date End Date Teresita Garcia MD PCP - General Family Practice 01/22/11 [address] [place] [address] Teresita Garcia MD PCP - Assigned PCP 11/16/16 11/30/18 [address] [place] [address] Teresita Garcia MD Assigned PCP 11/16/16 12/28/21 [address] [place] [address] documented as of this encounter
--- OUTSIDE RECORDS SUMMARY | 2022-09-04 16:45 | XMS_ITS | Encounter Summary ---
:1960 Author Organization [place] Address [address] [place] [address] Care Team Providers Name Role Phone Teresita Garcia MD Primary Care Provider Reason for Visit Reason Onset Date Comments Medication Request 04/23/2016 04/24/16 dental appt - prophylactic abx Encounter Details Date Type Department Care Team Description 04/23/2016 Telephone [facility] Teresita Garcia MD Medication Request Clinic [address] (04/24/16 dental appt - [address] [place], [place] prophylactic abx) [place], [place] [phone] Social History Tobacco Use Types Packs/Day [...] do you attend christianity or Not asked jainism services? Do you [...] to do prophylaxis anymore. Teresita Garcia MD [facility] [phone] Telephone Encounter - Hal Sierra, RN - 04/23/2016 9:28 AM CDT Pt calls. Dental appointment tomorrow April 24. Reports bilateral hip replacement about 10-15 years ago at [facility]. At that time his surgeon (now retired) recommended prophylactic antibiotic prior to dental procedures for the rest of his life. Dentist was prescribing but prefers PCP advise/prescribe. Dr. Garcia, antibiotic indicated? Pharmacy t'd up. We will call Jose with your reply. [phone] OK detailed message Hal Sierra, RN documented in this encounter Plan of Treatment Not on filedocumented as of this encounter Visit Diagnoses Not on filedocumented in this encounter Care Teams Plastic Fixture Builder Relationship Specialty Start Date End Date Teresita Garcia MD PCP - General Family Practice 01/22/11 [address] [place] [address] documented as of this encounter
--- OUTSIDE RECORDS SUMMARY | 2022-09-04 16:45 | XMS_ITS | Encounter Summary ---
:1960 Author Organization [place] Address [address] [place] [address] Care Team Providers Name Role Phone Teresita Garcia MD Primary Care Provider Teresita Garcia MD Unavailable Teresita Garcia MD Unavailable Reason for Visit Reason Onset Date Comments Refill Request 07/09/2018 alendronate (FOSAMAX ) 70 MG tablet Encounter Details Date Type Department Care Team Description 07/09/2018 Refill [facility] Roel Garcia MD Refill Request [address] (alendronate (FOSAMAX) [id number] [place] [address] 70 MG tablet) [place] [phone] Social History Tobacco Use Types Packs/Day Years [...] do you attend latter-day or Not asked judaism services? Do you [...] Depression Total Score: 2 11/25/2017 8:11 AM INTERVENTION SPECIALIST documented as of this encounter Care Teams Director On Air Relationship Specialty Start Date End Date Teresita Garcia MD PCP - General Family Practice 01/22/11 [address] [place], [place] [phone] Teresita Garcia MD PCP - Assigned PCP 11/16/16 11/30/18 [address] [place] [address] Teresita Garcia MD Assigned PCP 11/16/16 12/28/21 [address] [place], [place] [phone] documented as of this encounter
--- OUTSIDE RECORDS SUMMARY | 2022-09-04 16:45 | XMS_ITS | Encounter Summary ---
:1960 Author Organization [place] Address [address] [facility] [place] [address] Care Team Providers Name Role Phone Teresita [...] do you attend sabianist or Not asked christian services? Do you [...] Depression Total Score: 5 11/25/2018 3:25 PM BIOPHARMACEUTICAL REP documented as of this encounter Care Teams Credit Report Checker Relationship Specialty Start Date End Date Teresita Garcia MD PCP - General Family Practice 01/22/11 [address] [place] [address] Teresita Garcia MD Assigned PCP 11/16/16 12/28/21 [address] [place] [address] documented as of this encounter
--- OUTSIDE RECORDS SUMMARY | 2022-09-04 16:45 | XMS_ITS | Encounter Summary ---
:1960 Author Organization [place] Address [address] [facility] [place] [address] Care Team Providers Name Role Phone Teresita [...] do you attend shinto or Not asked protestant services? Do you [...] Depression Total Score: 2 11/25/2017 8:11 AM CEMENT BOAT AND BARGE LOADER documented as of this encounter Care Teams Elevator Service Mechanic Relationship Specialty Start Date End Date Teresita Garcia MD PCP - General Family Practice 01/22/11 [address] [facility] [address], [place] [phone] Teresita Garcia MD PCP - Assigned PCP 11/16/16 11/30/18 [address] [facility] [address], [place] [phone] Teresita Garcia MD Assigned PCP 11/16/16 12/28/21 [address] [facility] [address], [place] [phone] documented as of this encounter
--- OUTSIDE RECORDS SUMMARY | 2022-09-04 16:45 | XMS_ITS | Encounter Summary ---
:1960 Author Organization [place] Address [facility] [place] [address] Care Team Providers Name Role Phone Teresita Garcia MD Primary Care Provider Reason for Visit Reason Onset Date Comments Medication Request 09/26/2014 Shoulder Pain 09/26/2014 Encounter Details Date Type Department Care Team Description 09/26/2014 Telephone [facility] Teresita Garcia MD Medication Request; Clinic [place] [id number] [place] [address] Shoulder Pain [address] [place] [phone] Social History Tobacco Use Types Packs/Day Years [...] do you attend anglican or Not asked spiritism services? Do you [...] and sent to pharmacy. Ingrid Vallejo CMA OIDERY FINISHER Telephone Encounter - Teresita Garcia MD - 09/27/2014 8:04 AM CST We can try anti-inflammatory, if it is ok with the [place] physician. I will send a prescription for him. OIDERY FINISHER Telephone Encounter - Mary More RN - [...] shoulder. Please advise. Call patient back at [phone]. Mary More RN OIDERY FINISHER documented in this encounter Plan of Treatment Not on filedocumented as of this encounter Visit Diagnoses Diagnosis Left shoulder pain - Primary Pain in joint, shoulder region documented in this encounter Care Teams Hand Bulldozer Relationship Specialty Start Date End Date Teresita Garcia MD PCP - General Family Practice 01/22/11 [address] [place] [address] documented as of this encounter
--- OUTSIDE RECORDS SUMMARY | 2022-09-04 16:45 | XMS_ITS | Encounter Summary ---
:1960 Author Organization [place] Address [address] [facility] [place] [address] Care Team Providers Name Role Phone Teresita Garcia MD Primary Care Provider Teresita Garcia MD Unavailable Reason for Visit Reason Comments Consult osteoporosis treatment Encounter Details Date Type Department Care Team Description 03/11/2019 Office Visit [facility] Teresita Garcia MD Seborrheic keratoses (Primary Dx); Clinic [address] Seborrheic dermatitis of scalp; [address] [place] [address] Osteoporosis without current pathological fracture, unspecified osteoporosis type [place], [place] [phone] Social History Tobacco Use Types Packs/Day [...] scalp ??? Status post hip replacement ??? Ggxj-Hphry-Mxuqcjy disease ??? Atopic rhinitis ??? Major depressive [...] 6 months (around 09/10/2019). Teresita Garcia MD [facility] documented in this encounter Plan of Treatment Not on filedocumented as of this encounter Visit Diagnoses Diagnosis Seborrheic keratoses - Primary Seborrheic dermatitis of scalp Other seborrheic dermatitis Osteoporosis without current pathologica l fracture, unspecified osteoporosis type documented in this encounter Additional Health Concerns Assessment Noted Time PHQ-9 Depression Total Score: 5 11/25/2018 3:25 PM SYSTEMS TRAINER documented as of this encounter Care Teams Assembler Seat Relationship Specialty Start Date End Date Teresita Garcia MD PCP - General Family Practice 01/22/11 [address] [place] [address] Teresita Garcia MD Assigned PCP 11/16/16 12/28/21 [address] [place] [address] documented as of this encounter
--- OUTSIDE RECORDS SUMMARY | 2022-09-04 16:45 | XMS_ITS | Encounter Summary ---
:1960 Author Organization [place] Address [address] [place] [address]. [place] [address] Care Team Providers Name Role Phone Teresita Garcia MD Primary Care Provider Reason for Visit Reason Comments Hospital F/U MS relapse Encounter Details Date Type Department Care Team Description 10/17/[address] [facility] Teresita Garcia MD Major depressive disorder, single episod e, mild (H) (Primary Dx); Clinic [address] Multiple sclerosis (H); [address] [place] [address] Screening for hyperlipidemia [place], [place] [phone] Social History Tobacco Use Types Packs/Day [...] do you attend jainism or Not asked jain services? Do you [...] Comments Blood Pressure 110/78 10/17/2016 11:05 AM CARD GRINDER Pulse 100 10/17/2016 11:05 AM CARD GRINDER Temperature 36.8 ??C (98.3 ??F) 10/17/2016 11:05 AM CARD GRINDER Respiratory Rate 20 10/17/2016 11:05 AM CARD GRINDER Oxygen Saturation 97% 10/17/2016 11:05 AM CARD GRINDER Inhaled Oxygen Concentration - - Weight 73.5 kg (162 lb) 10/17/2016 11:05 AM CARD GRINDER Height 171.5 cm (5' 7.5) 10/17/2016 11:05 AM CARD GRINDER Body Mass Index 25 10/17/2016 11:05 AM CARD GRINDER documented in this encounter Progress Notes Teresita Garcia MD - 10/17/2016 10:59 AM CST SUBJECTIVE: Dejuan Rodriguez is a 55 year old male who presents to clinic today for the following health issues: Hospital Follow-up Visit: Hospital/Shelter/ Rehab Facility: [facility] Date of Admission: 09/29/16 Date [...] this visit: Type of Medical Decision Making Giab-bp-Iabk Visit within 7 Days of discharge Ftkf-cl-Hnrd Visit within 14 days of discharge Moderate Complexity [id number] High Complexity [id number] Problem list and histories reviewed & adjusted, as indicated. Additional history: as documented Patient Active Problem List Diagnosis ??? Multiple sclerosis (H) ??? CARDIOVASCULAR SCREENING; LDL GOAL LESS THAN 160 ??? Cannabis abuse ??? Baclofen pump failure ??? Spasticity ??? Seborrheic dermatitis of scalp ??? Status post hip replacement ??? Uxaz-Ickls-Innynzi disease ??? Atopic rhinitis ??? Major depressive [...] RNA Quant and Genotype Teresita Garcia MD [facility] GRINDER documented in this encounter Nursing Notes Yumiko Camp, MANUSCRIPT READER - 10/17/2016 11:08 AM CST Chief Complaint [...] using cuff size regular Yumiko Camp CMA GRINDER documented in this encounter Plan of Treatment Not on filedocumented as of this encounter Procedures Procedure Name Priority Date/Time Associated Diagnosis Comme nts HEPATITIS C SCREEN Routine 10/17/2016 11:36 Screening for Resu lts for this REFLEX TO HCV RNA AM CARD GRINDER hyperlipidemia procedur e are in QUANT AND GENOTYPE the resul ts section. LIPID REFLEX TO Routine 10/17/2016 11:36 Screening for Results for this DIRECT LDL PANEL AM CARD GRINDER hyperlipidemia procedure are in the results section. documented in this encounter Results Lipid panel reflex to direct LDL (10/17/2016 11:36 AM CARD GRINDER) [facility] Method Time Signature Cholesterol 144 <200 [place] mg/dL [facility] Triglycerides 112 <150 [place] mg/dL [facility] HDL Cholesterol 70 >39 mg/dL [facility] LDL Cholesterol 52 <100 [place] Calculated mg/dL [facility] Comment: Desirable: <100 mg/dl Non HDL Cholesterol 74 <130 mg/dL [facility] Specimen Anatomical Collection Method Collection Time Receive d Time (Source) Location / / Volume Laterality Blood specimen 10/17/2016 11:36 7 (specimen) AM CARD GRINDER 11:37 AM CARD GRINDER Teresita Garcia MD LAB - BLOOD ORDERABLES Performing Organization Address City/State/ZIP Code Phon e Number [facility] [address] [place] [address] Hepatitis C Screen Reflex to HCV RNA Quant and Genotype (10/17/2016 11:36 AM CARD GRINDER) Component Value Ref Test Analysis Performed At [facility] [place] Method Time Signature Hepatitis C Nonreactive NR [facility] Antibody Assay performance character istics have not been established for newborns, [place] [facility] infants, and children [facility] Specimen Anatomical Collection Method Collection Time Receive d Time (Source) Location / / Volume Laterality Blood specimen 10/17/2016 11:36 7 (specimen) AM CARD GRINDER 11:37 AM CARD GRINDER Teresita Garcia MD LAB - BLOOD ORDERABLES Performing Organization Address City/State/ZIP Code Phon e Number [facility] [address] [place] [address] [place] documented in this encounter Visit Diagnoses Diagnosis Major depressive disorder, single episod e, mild (H) - Primary Major depressive disorder, single episod e, mild Multiple sclerosis (H) Multiple sclerosis Screening for hyperlipidemia Screening for lipoid disorders documented in this encounter Additional Health Concerns Assessment Noted Time PHQ-9 Depression Total Score: 4 10/18/2016 7:15 AM CARD GRINDER documented as of this encounter Care Teams Mosaic Technician Relationship Specialty Start Date End Date Teresita Garcia MD PCP - General Family Practice 01/22/11 [address] [place] [address] documented as of this encounter
--- OUTSIDE RECORDS SUMMARY | 2022-09-04 16:45 | XMS_ITS | Encounter Summary ---
:1960 Author Organization [place] Address [address] [place] [place] [address] Care Team Providers Name Role Phone Teresita [...] Depression Total Score: 5 11/25/2018 3:25 PM HARDBOARD COATING MACHINE OPERATOR documented as of this encounter Care Teams Fbi Profiler Relationship Specialty Start Date End Date Teresita Garcia MD PCP - General Family Practice 01/22/11 [address] [place] [address] Teresita Garcia MD Assigned PCP 11/16/16 12/28/21 [address] [place] [address] documented as of this encounter
--- OUTSIDE RECORDS SUMMARY | 2022-09-04 16:45 | XMS_ITS | Encounter Summary ---
:1960 Author Organization [place] Address [address] [facility] [place] [address] Care Team Providers Name Role Phone Teresita [...] do you attend yarsani or Not asked roman catholic services? Do [...] Depression Total Score: 2 11/25/2017 8:11 AM MAINTENANCE MGR documented as of this encounter Care Teams Web Search Evaluator Relationship Specialty Start Date End Date Teresita Garcia MD PCP - General Family Practice 01/22/11 [address] [facility], [place] [phone] Teresita Garcia MD PCP - Assigned PCP 11/16/16 11/30/18 [address] [facility], [place] [id number] Teresita Garcia MD Assigned PCP 11/16/16 12/28/21 [address] [facility], [place] [phone] documented as of this encounter
--- OUTSIDE RECORDS SUMMARY | 2022-09-04 16:45 | XMS_ITS | Encounter Summary ---
:1960 Author Organization [place] Address [address] [facility] [place] [address] Care Team Providers Name Role Phone Teresita [...] do you attend judaism or Not asked restoration services? Do you [...] Depression Total Score: 5 11/25/2018 3:25 PM NURSE LICENSED PRACTICAL documented as of this encounter Care Teams Wall Crane Operator Relationship Specialty Start Date End Date Teresita Garcia MD PCP - General Family Practice 01/22/11 [address] [facility], [place] [phone] Teresita Garcia MD PCP - Assigned PCP 11/16/16 11/30/18 [address] [facility], [place] [phone] Teresita Garcia MD Assigned PCP 11/16/16 12/28/21 [address] [facility], [place] [phone] documented as of this encounter
--- OUTSIDE RECORDS SUMMARY | 2022-09-04 16:45 | XMS_ITS | Encounter Summary ---
:1960 Author Organization [place] Address [facility] [place] [address] Care Team Providers Name Role Phone Teresita Garcia MD Primary Care Provider Encounter Details Date Type Department Care Team Description 09/15/2014 Radiant Appointment [facility] Teresita Garcia MD Shoulder injury, Clinic [place] [address] [facility], initial [address] [facility] AV encounter [facility], [address] [place] [address] [phone] Social History Tobacco Use Types Packs/Day Years [...] do you attend protestant or Not asked hoahaoism services? Do you [...] PM Shoulder injury, Results for this VIEWS RAWHIDE TRIMMER left, initial procedure are in encounter the results section. documented in this encounter Results XR Shoulder Left 2 Views (09/15/2014 2:26 PM RAWHIDE TRIMMER) Anatomical Region Laterality Modality Shoulder, Chest, Arm Left Computed Radiograph y Specimen (Source) Anatomical Location Collection Method / Collectio n Time Received Time / Laterality Volume Impressions 09/15/2014 3:48 PM RAWHIDE TRIMMER IMPRESSION: Negative. KELLY GILBERT MD Narrative 09/15/2014 3:48 PM RAWHIDE TRIMMER XR SHOULDER 2 VIEW LEFT 09/15/2014 3:48 [...] encounter documented in this encounter Care Teams Florist'S Decorator Relationship Specialty Start Date End Date Teresita Garcia MD PCP - General Family Practice 01/22/11 [address] [place] [address] documented as of this encounter
--- OUTSIDE RECORDS SUMMARY | 2022-09-04 16:46 | XMS_ITS | Encounter Summary ---
:1960 Author Organization [place] Address [address] [place] [address] Care Team Providers Name Role Phone Teresita Garcia MD Primary Care Provider Reason for Visit Auth/Cert - Closed Specialty Diagnoses / Procedures Referred By Contact Refer red To Contact Gastroenterology Diagnoses screening Rh Endoscopy Procedures COLONOSCOPY [address] [place] [address] Phone: Fax: Referral ID Status Reason Start Date Expiration Date Visits Requ ested Visits Authorized [id number] Closed 1 1 Encounter Details Date Type Department Care Team Description 06/01/2013 Hospital Encounter [facility] Jacob Simmons, Endoscopy Alex KAYE [address] [place], [place] GASTROENTEROLOGY [address] 118[address] [facility] [phone] [address] (Wo rk) Social History Tobacco Use Types [...] do you attend druze or Not asked catholic services? Do you [...] scalp ??? Status post hip replacement ??? Lbws-Drocr-Oisdhxy disease ??? Atopic rhinitis Past Medical History Diagnosis Date ??? Multiple sclerosis sees neurology at [facility] ??? Juvenile osteochondrosis of hip [...] encounter Results COLONOSCOPY (06/01/2013 4:02 PM CDT) [facility] Method Time Signature COLONOSCOPY [facility] RAD IOLOGY RESULTS Patient Name: Dejuan alston [...] Intra-procedure documented in this encounter Care Teams Textile Chemist Relationship Specialty Start Date End Date Teresita Garcia MD PCP - General Family Practice 01/22/11 [address] [place] [address] documented as of this encounter
--- OUTSIDE RECORDS SUMMARY | 2022-09-04 16:46 | XMS_ITS | Encounter Summary ---
:1960 Author Organization [place] Address [facility] [place] [address] Care Team Providers Name Role Phone Teresita Garcia MD Primary Care Provider Reason for Visit Reason Comments Shoulder Injury left shoulder pain - fell on it x2 days Encounter Details Date Type Department Care Team Description 09/15/2014 Office Visit [facility] Teresita Garcia MD Shoulder injury, left, initial encounter (Primary Dx); Clinic [address] Mild major depression (H) [address] [place] [address] Social History Tobacco Use Types Packs/Day [...] do you attend advent or Not asked faith services? Do you [...] Blood Pressure 116/82 09/15/2014 1:59 PM BEHAVIORAL SPECIALIST Pulse 92 09/15/2014 1:59 PM BEHAVIORAL SPECIALIST Temperature 36.8 ??C (98.3 ??F) 09/15/2014 1:59 PM BEHAVIORAL SPECIALIST Respiratory Rate 20 09/15/2014 1:59 PM BEHAVIORAL SPECIALIST Oxygen Saturation 95% 09/15/2014 1:59 PM BEHAVIORAL SPECIALIST Inhaled Oxygen Concentration - - Weight 77.1 kg (170 lb) 09/15/2014 1:59 PM BEHAVIORAL SPECIALIST Height 171.5 cm (5' 7.5) 09/15/2014 1:59 PM BEHAVIORAL SPECIALIST Body Mass Index 26.23 09/15/2014 1:59 PM BEHAVIORAL SPECIALIST documented in this encounter Progress Notes Teresita [...] scalp ??? Status post hip replacement ??? Mmji-Yvrlq-Redngqt disease ??? Atopic rhinitis Past Surgical History [...] questions or concerns. Teresita Garcia MD, MD [facility] VIORAL SPECIALIST documented in this encounter Nursing Notes Yumiko Camp, LIFE CLAIMS EXAMINER - 09/15/2014 2:02 PM CST Chief Complaint [...] cuff size large Yumiko Camp CMA VIORAL SPECIALIST documented in this encounter Plan of Treatment Not on filedocumented as of this encounter Results XR Shoulder Left 2 Views (09/15/2014 2:26 PM BEHAVIORAL SPECIALIST) Anatomical Region Laterality Modality Shoulder, Chest, Arm Left Computed Radiograph y Specimen (Source) Anatomical Location Collection Method / Collectio n Time Received Time / Laterality Volume Impressions 09/15/2014 3:48 PM BEHAVIORAL SPECIALIST IMPRESSION: Negative. KELLY GILBERT MD Narrative 09/15/2014 3:48 PM BEHAVIORAL SPECIALIST XR SHOULDER 2 VIEW LEFT 09/15/2014 3:48 [...] encounter documented in this encounter Care Teams Safety Fire Boss Relationship Specialty Start Date End Date Teresita Garcia MD PCP - General Family Practice 01/22/11 [address] [place] [address] documented as of this encounter
--- OUTSIDE RECORDS SUMMARY | 2022-09-04 16:46 | XMS_ITS | Encounter Summary ---
:1960 Author Organization [place] Address [address] [facility] [place] [address] Care Team Providers Name Role Phone Teresita Garcia MD Primary Care Provider Reason for Visit Auth/Cert - Closed Specialty Diagnoses / Procedures Referred By Contact Refer red To Contact Gastroenterology Diagnoses screening Endoscopy Procedures COLONOSCOPY [address] [place] [address] Phone: Fax: Referral ID Status Reason Start Date Expiration Date Visits Requ ested Visits Authorized [id number] Closed 1 1 Encounter Details Date Type Department Care Team Description 06/01/[address] [facility] Endoscopy Jacob Bhagat MD Colonoscopy [facility] GASTROENTEROLOGY [address] [facility] [address] [place] [address] [place] [address] [phone] (Wo rk) Surgery Details Date/Time Status Location [...] do you attend zoroastrianism or Not asked islam services? Do you belong to any clubs or Not asked organizations such as zoroastrianism groups, unions, [employer] or athletic groups, or school groups? How [...] scalp ??? Status post hip replacement ??? Xqal-Uxggi-Qbglnie disease ??? Atopic rhinitis Past Medical History Diagnosis Date ??? Multiple sclerosis sees neurology at [facility] ??? Juvenile osteochondrosis of hip [...] encounter Results COLONOSCOPY (06/01/2013 4:02 PM CDT) [facility] Method Time Signature COLONOSCOPY [facility] RAD IOLOGY RESULTS Patient Name: Dejuan [...] Intra-procedure documented in this encounter Care Teams Glove Pairer Relationship Specialty Start Date End Date Teresita Garcia MD PCP - General Family Practice 01/22/11 [address] [place] [address] documented as of this encounter
--- OUTSIDE RECORDS SUMMARY | 2022-09-04 16:46 | XMS_ITS | Encounter Summary ---
:1960 Author Organization [place] Address [address] [place] [address]. [place] [address] Care Team Providers Name Role Phone Teresita Garcia MD Primary Care Provider Reason for Visit Reason Onset Date Comments Refill Request 01/04/2014 Ketokonazole Shampoo and Hydrocortisone Encounter Details Date Type Department Care Team Description 01/04/2014 Refill [facility] Roel Garcia MD Refill Request [address] [place] [address] (Ketokonazole Shampoo [address] [place], [place] and Hydrocortisone) [place] [address] [phone] Social History Tobacco Use Types Packs/Day Years [...] do you attend religion or Not asked worship services? Do you [...] dermatitis documented in this encounter Care Teams Plate Put In Worker Relationship Specialty Start Date End Date Teresita Garcia MD PCP - General Family Practice 01/22/11 [address] [place] [address] documented as of this encounter
--- OUTSIDE RECORDS SUMMARY | 2022-09-04 16:46 | XMS_ITS | Encounter Summary ---
:1960 Author Organization [place] Address [address] [place] [address] Care Team Providers Name Role Phone Jonathan Velásquez MD Primary Care Provider Reason for Visit Reason Comments Back Pain Constipation Encounter Details Date Type Department Care Team Description 10/03/2010 Office Visit [facility] Teresita Garcia MD Back pain (Primary Dx) Clinic [address] [address] [place], [place] [address] [address] [place], [place] [phone] [address] (Work) [phone] Social History Tobacco Use Types Packs/Day Years [...] do you attend yazdanism or Not asked scientologist services? Do you [...] Comments Blood Pressure 100/68 10/03/2010 2:13 PM CUSTOMS COMPLIANCE SPECIALIST Pulse 71 10/03/2010 2:13 PM CUSTOMS COMPLIANCE SPECIALIST Temperature 36.6 ??C (97.8 ??F) 10/03/2010 2:13 PM CUSTOMS COMPLIANCE SPECIALIST Respiratory Rate 16 10/03/2010 2:13 PM CUSTOMS COMPLIANCE SPECIALIST Oxygen Saturation 97% 10/03/2010 2:13 PM CUSTOMS COMPLIANCE SPECIALIST Inhaled Oxygen Concentration - - Weight 74.8 kg (165 lb) 10/03/2010 2:13 PM CUSTOMS COMPLIANCE SPECIALIST Height 167.6 cm (5' 6) 10/03/2010 2:13 PM CUSTOMS COMPLIANCE SPECIALIST Body Mass Index 26.63 10/03/2010 2:13 PM CUSTOMS COMPLIANCE SPECIALIST documented in this encounter Progress Notes [...] worsen or fail to improve as anticipated. OMS COMPLIANCE SPECIALIST documented in this encounter Nursing Notes 10/03/2010 [...] encounter: 165 lb(74.844 kg). TETANUS IMMUNIZATION ( [place] ASSIGNED) due on 1973 BP completed using cuff size: large. Leonardo Castillo MA documented in this encounter Plan of Treatment Not on filedocumented as of this encounter Procedures Procedure Name Priority Date/Time Associated Comments Diagnosis URINE CULTURE Routine 10/03/2010 3:01 PM Back pain Results for this CUSTOMS COMPLIANCE SPECIALIST procedure are i n the results section. UA MACROSCOPIC WITH Routine 10/03/2010 2:45 PM Back pain Re sults for this REFLEX TO MICRO CUSTOMS COMPLIANCE SPECIALIST procedure ar e in the results section. URINE MICROSCOPIC Routine 10/03/2010 2:45 PM Resu lts for this EXAM CUSTOMS COMPLIANCE SPECIALIST procedure are i n the results section. documented in this encounter Results URINE CULTURE (10/03/2010 3:01 PM CUSTOMS COMPLIANCE SPECIALIST) Component Value Ref Test Analysis Performed At [facility] [place] Method Time Signature Specimen Catheterized [place] Description Urine [facility] Culture Micro No growth [facility] Micro Report FINAL [place] Status 10/06/2010 [facility] Specimen Anatomical Collection Method Collection Time Receive d Time (Source) Location / / Volume Laterality Urine specimen 10/03/2010 3:01 PM 011 3:03 (specimen) CUSTOMS COMPLIANCE SPECIALIST PM CUSTOMS COMPLIANCE SPECIALIST Teresita Garcia MD LAB - MICRO GENERAL ORDERABL ES Performing Organization Address City/State/ZIP Code Phon e Number [facility] [address] [address] [facility] (ABNORMAL) Microscopic exam urine (10/03/2010 2:45 PM CUSTOMS COMPLIANCE SPECIALIST) P athologist Signature WBC Urine O - 2 0 - 2 /HPF [facility] RBC Urine 2-5 (A) 0 - 2 /HPF [facility] Bacteria Urine Few (A) NEG /HPF [facility] Specimen Anatomical Collection Method Collection Time Receive d Time (Source) Location / / Volume Laterality 10/03/2010 2:45 PM 1 2:47 CUSTOMS COMPLIANCE SPECIALIST PM CUSTOMS COMPLIANCE SPECIALIST Teresita Garcia MD LAB - URINE ORDERABLES Performing Organization Address City/[facility] Code Phon e Number [address] [address] [facility] (ABNORMAL) UA macroscopic with reflex to micro (10/03/2010 2:45 PM CUSTOMS COMPLIANCE SPECIALIST) Component Value Ref Test Analysis Performed At [facility] Method Time Signature Color Urine Yellow [facility] Appearance Clear [place] Urine [facility] Glucose Urine Negative NEG [place] mg/dL [facility] Bilirubin Urine Negative NEG [facility] Ketones Urine Negative NEG [place] mg/dL [facility] Specific <=1.005 1.003 - [place] Urine 1.035 [facility] Blood Urine Trace (A) NEG [facility] pH Urine 5.5 5.0 - [place] 7.0 pH [facility] Protein Albumin Negative NEG [place] Urine mg/dL [facility] Urobilinogen 0.2 0.2 - [place] Urine 1.0 [place] EU/dL [facility] Nitrite Urine Negative NEG [facility] Leukocyte Negative NEG [place] Esterase Urine [facility] Source Catheterized [place] Urine [facility] Specimen Anatomical Collection Method Collection Time Receive d Time (Source) Location / / Volume Laterality Urine specimen 10/03/2010 2:45 PM 011 2:47 (specimen) CUSTOMS COMPLIANCE SPECIALIST PM CUSTOMS COMPLIANCE SPECIALIST Teresita Garcia MD LAB - URINE ORDERABLES Performing Organization Address City/[facility]/ZIP Code Phon e Number [facility] [place] [address] [facility] documented in this encounter Visit Diagnoses Diagnosis Back pain - Primary Backache, unspecified documented in this encounter Care Teams Digital Analyst Relationship Specialty Start Date End Date Jonathan Velásquez MD PCP - General 11/10/05 01/21/11 documented as of this encounter
--- OUTSIDE RECORDS SUMMARY | 2022-09-04 16:46 | XMS_ITS | Encounter Summary ---
:1960 Author Organization [place] Address [facility] [address] Care Team Providers Name Role Phone Teresita Garcia MD Primary Care Provider Encounter Details Date Type Department Care Team Description 04/10/2014 Orders Only [facility] Mul tiple sclerosis (H) [facility] (Primary Dx) [address] [place] [address] Social History Tobacco Use Types [...] do you attend yazidism or Not asked lutheran services? Do you [...] Signature Vitamin D 50 30 - 75 [facility] Deficiency ug/L CAMPUS LABS screening Comment: Season, race, dietary intake, and treatm ent affect the concentration of 98-eqqnqmv-Kqknyuk D. Values may decrea se during winter [...] questions, pl ease contact the laboratory at [phone]. Specimen Anatomical Collection Method Collection Time Receive d Time (Source) Location / / Volume Laterality Blood specimen 04/10/2014 2:17 PM 014 2:20 (specimen) CDT PM CDT Lab Non-Fv Credentialed Provider LAB - BLOOD ORDERABLE S Performing Organization Address City/State/ZIP Code Phon e Number [facility] [address] [place], [place] [phone] [place] [address] LABS documented in this encounter Visit Diagnoses Diagnosis Multiple sclerosis (H) - Primary Multiple sclerosis documented in this encounter Care Teams Refrigeration Plant Cork Insulator Relationship Specialty Start Date End Date Teresita Garcia MD PCP - General Family Practice 01/22/11 [address] [place] [address] documented as of this encounter
--- OUTSIDE RECORDS SUMMARY | 2022-09-04 16:46 | XMS_ITS | Encounter Summary ---
:1960 Author Organization [place] Address [address] [place] [address] Care Team Providers Name Role Phone Jonathan Velásquez MD Primary Care Provider Reason for Visit Reason Comments Pre-Op Exam Depression Encounter Details Date Type Department Care Team Description 12/13/2010 Office Visit [facility] Nelida Corral Preop g eneral physical exam (Primary Dx); Clinic Brandon Avila MD Mild major depression (H); [place] [address] [facility] Vitamin D deficiencies; Road, [address] [place] [address] Fatigue; [place], [place] [phone] (Wo rk) Vaccine for tetanus toxoid [address] [phone] Social History Tobacco Use Types Packs/Day Years [...] do you attend tenriism or Not asked cheondoism services? Do you [...] Nelida Corral - 12/13/2010 7:43 AM CDT [address], [address] [place] [address] PRE-OP EVALUATION: Today's date: 12/13/2010 Dejuan Rodriguez (: 1960) presents for pre-operative evaluation assessment as requested byDr. Enriquez. He requires evaluation and anesthesia risk assessment prior to undergoing surgery/procedure for treatment of baclofen pump . Proposed procedure: pump placement right LQ abd. Date of Surgery/ Procedure: 12/16/2009 Time of Surgery/ Procedure: 10:30am Hospital/Surgical Facility: [facility] Fax number for surgical facility: Primary Physician: [...] Date ??? Multiple sclerosis sees neurology at [facility] ??? Juvenile osteochondrosis of hip [...] (12/13/2010 8:13 AM CDT) Analysis Performed At [facility] Time Signature Sodium 143 133 - 144 [place] mmol/L [facility] Potassium 4.1 3.4 - 5.3 [place] mmol/L [facility] Chloride 104 94 - 109 [place] mmol/L [facility] Carbon Dioxide 27 20 - 32 [place] mmol/L [facility] Anion Gap 12 6 - 17 [place] mmol/L [facility] Glucose 95 60 - 99 [place] mg/dL [facility] Urea Nitrogen 21 5 - 24 [place] mg/dL [facility] Creatinine 1.26 (H) 0.66 - [facility] 1.25 mg/dL [facility] GFR Estimate 61 >60 [place] mL/min/1.7 [facility] m2 LAB GFR Estimate If 74 >60 [place] Black mL/min/1.7 [facility] m2 LAB Calcium 9.4 8.5 - 10.4 [place] mg/dL [facility] Bilirubin Total 1.0 0.2 - 1.3 [place] mg/dL [facility] Albumin 4.6 3.9 - 5.1 [place] g/dL [facility] Comment: Reference range changed on 05/30. Protein Total 7.0 6.8 - 8.8 g/dL [facility] Comment: As of 08, reference range reflects plasma specimen type. Alkaline Phosphatase 55 40 - 150 U/L [facility] ALT 24 0 - 70 U/L [facility] AST 20 0 - 55 U/L [facility] Specimen Anatomical Collection Method Collection Time Receive d Time (Source) Location / / Volume Laterality Blood specimen 12/13/2010 8:13 AM 011 8:18 (specimen) CDT AM CDT Nelida Corral MD LAB - BLOOD ORDERABLES Performing Organization Address City/State/ZIP Code Phon e Number [facility] [address] [place] [address] [facility] (ABNORMAL) Lipid panel reflex to direct LDL (12/13/2010 8:13 AM CDT) P athologist Signature Cholesterol 143 0 - 200 [facility] mg/dL CLINIC LAB Comment: LDL Cholesterol is the primary guide to therapy. The NCEP recommends further evaluation of: patients with cholesterol <200 mg/dL if additional risk factors are present, cholesterol >240 mg/dL, triglycerides >150 mg/dL, or HDL <40 mg/dL. Triglycerides 259 (H) 0 - 150 mg/dL [facility] HDL Cholesterol 41 40 - 110 mg/dL [facility] LDL Cholesterol Calculated 50 0 - 129 mg/dL [facility] Comment: LDL Cholesterol is the primary guide to therapy: LDL-cholesterol goal in high risk patients is <100 mg/dL and in very high risk patients is <70 mg/dL. VLDL-Cholesterol 52 (H) 0 - 30 mg/dL [facility] Cholesterol/HDL Ratio 3.5 0.0 - 5.0 [facility] Specimen Anatomical Collection Method Collection Time Receive d Time (Source) Location / / Volume Laterality Blood specimen 12/13/2010 8:13 AM 011 8:18 (specimen) CDT AM CDT Nelida Corral MD LAB - BLOOD ORDERABLES Performing Organization Address City/State/ZIP Code Phon e Number [facility] [address] [place] [address] [facility] Vitamin D deficiency screening (12/13/2010 8:13 AM CDT) Component Value Ref Test Analysis Performed At Patholo gist Range Method Time Signature 25 [place] Vit D2 <5 ug/L [facility] 25 [place] Vit D3 43 ug/L [facility] 25 [place] Vit D <48 30 - 75 [facility] total Season, race, dietary intake, and treatm ent affect the concentration of ug/L [facility] 76-hhsxauj-Kzkwizz D. Values may decrease during michelle er [...] Code Phon e Number [facility] [address] [place] [address] [facility] TSH with free T4 reflex (12/13/2010 8:13 AM CDT) athologist Signature TSH 2.73 0.4 - 5.0 [facility] mU/L CLINIC LAB Specimen Anatomical Collection Method Collection Time Receive d Time (Source) Location / / Volume Laterality Blood specimen 12/13/2010 8:13 AM 011 8:18 (specimen) CDT AM CDT Nelida Corral MD LAB - BLOOD ORDERABLES Performing Organization Address City/[facility]/ZIP Code Phon e Number [facility] [address] [place] [address] [facility] CBC with platelets (12/13/2010 8:13 AM CDT) athologist Signature WBC 8.1 4.0 - 11.0 [place] 10e9/L [facility] RBC Count 4.90 4.4 - 5.9 [place] 10e12/L [facility] Hemoglobin 15.3 13.3 - [facility] 17.7 g/dL [facility] Hematocrit 42.9 40.0 - [facility] 53.0 % [facility] MCV 88 78 - 100 [facility] MCH 31.2 26.5 - [facility] 33.0 pg [facility] MCHC 35.7 31.5 - [facility] 36.5 g/dL [facility] RDW 12.8 10.0 - [facility] 15.0 % [facility] Platelet Count 187 150 - 450 [place] 10e9/L [facility] Specimen Anatomical Collection Method Collection Time Receive d Time (Source) Location / / Volume Laterality Blood specimen 12/13/2010 8:13 AM 011 8:18 (specimen) CDT AM CDT Nelida Corral MD LAB - BLOOD ORDERABLES Performing Organization Address City/State/ZIP Code Phon e Number [facility] [place] [address] [facility] documented in this encounter Visit Diagnoses Diagnosis Preop general physical exam - Primary Other specified pre-operative examinatio n Mild major depression (H) Major depressive disorder, single episod e, mild Vitamin D deficiencies Unspecified vitamin D deficiency Fatigue Other malaise and fatigue Vaccine for tetanus toxoid Need for prophylactic vaccination with t etanus toxoid alone documented in this encounter Care Teams Hydroelectric Plant Electrician Relationship Specialty Start Date End Date Jonathan Velásquez MD PCP - General 11/10/05 01/21/11 documented as of this encounter
--- OUTSIDE RECORDS SUMMARY | 2022-09-04 16:46 | XMS_ITS | Encounter Summary ---
:1960 Author Organization [place] Address [facility] [place] [address] Care Team Providers Name Role Phone Jonathan Velásquez MD Primary Care Provider Reason for Referral Specialty Diagnoses / Procedures Referred By Contact Refer red To Contact [facility] [address] [facility] NABIL FORD [phone] Referral ID Status Reason Start Date Expiration Date Visits Requ ested Visits Authorized Encounter Details Date Type Department Care Team Description 01/03/2011 Orders Only [facility] Jonathan Velásquez MD [place] XXX RETIRED XXX [address] [facility] Mohit johnson [address] [facility] NABIL Richard [phone] NABIL RIOS [phone] (Wo rk) Social History Tobacco Use [...] do you attend synagogue or Not asked yazdanism services? Do you [...] on filedocumented in this encounter Care Teams Food Services Coordinator Relationship Specialty Start Date End Date Jonathan Velásquez MD PCP - General 11/10/05 01/21/11 documented as of this encounter
--- OUTSIDE RECORDS SUMMARY | 2022-09-04 16:46 | XMS_ITS | Encounter Summary ---
:1960 Author Organization [place] Address [address] [facility] [place] [address] Care Team Providers Name Role Phone Teresita Garcia MD Primary Care Provider Reason for Visit Reason Onset Date Comments Call to schedule test 05/03/2013 GI [facility]ot [place] Encounter Details Date Type Department Care Team Description 05/03/2013 Telephone [facility] Marysol Andrews to schedule test [facility] [place] (GI [facility]ot [place]) [address] [place] [phone] Social History Tobacco Use Types Packs/Day Years [...] do you attend restorationist or Not asked episcopalian services? Do you [...] on filedocumented in this encounter Care Teams Senior Estimator Relationship Specialty Start Date End Date Teresita Garcia MD PCP - General Family Practice 01/22/[id number] [place] [address] documented as of this encounter
--- OUTSIDE RECORDS SUMMARY | 2022-09-04 16:46 | XMS_ITS | Encounter Summary ---
:1960 Author Organization [place] Address [address] [place] [address] Care Team Providers Name Role Phone Teresita Garcia MD Primary Care Provider Reason for Visit Reason Comments Post-op Problem pump incision on back - has a large bump Refill Request shampoo Encounter Details Date Type Department Care Team Description 03/10/2011 Office Visit [facility] Teresita Garcia MD Benign tumor of back (Primary Dx); Clinic [place] [id number] [place] [address] Baclofen pump failure; [address] [place], [place] Seborrheic dermatitis of sca lp [place], [place] [phone] Social History Tobacco Use Types Packs/Day [...] dandruff of the scalp. Assessment & Plan: 1)800.0 Other specified disease of hair and hair [...] Teresita Garcia MD IMG DIAGNOSTIC IMAGING ORDER RBEA documented in this encounter Visit Diagnoses Diagnosis Benign tumor of back - Primary Other benign neoplasm of connective and other soft tissue of trunk, unspecified Baclofen pump failure Mechanical complication due to other imp lant and internal device, not elsewhere classified Seborrheic dermatitis of scalp Other seborrheic dermatitis documented in this encounter Care Teams Cream Gatherer Relationship Specialty Start Date End Date Teresita Garcia MD PCP - General Family Practice 01/22/11 [address] [place] [address] documented as of this encounter
--- OUTSIDE RECORDS SUMMARY | 2022-09-04 16:46 | XMS_ITS | Encounter Summary ---
:1960 Author Organization [place] Address [address] [facility] [place] [address] Care Team Providers Name Role Phone Teresita Garcia MD Primary Care Provider Encounter Details Date Type Department Care Team Description 07/07/2011 Orders Only [facility] Mul tiple sclerosis (H) [facility] (Primary Dx) [address] [place] [address] Social History Tobacco Use Types [...] do you attend anabaptist or Not asked yazidi services? Do you [...] Component Value Ref Test Analysis Performed At [facility] gist Range Method Time Signature 25 [place] Vit D2 <5 ug/L [facility] 25 [place] Vit D3 42 ug/L [facility] 25 [place] Vit D <47 30 - 75 [facility] total Season, race, dietary intake, and treatm ent affect the concentration of ug/L [facility] 44-bvftiox-Mifktut D. Values may decrease during michelle er [...] Organization Address City/State/ZIP Code Phon e Number [address] [address] [facility] AST (07/07/2011 1:47 PM CDT) athologist Signature AST 23 0 - 55 U/L [facility] Specimen Anatomical Collection Method Collection Time Receive d Time (Source) Location / / Volume Laterality Blood specimen 07/07/2011 1:47 PM 011 1:48 (specimen) CDT PM CDT Ramón Shine MD LAB - BLOOD ORDERABLES Performing Organization Address City/State/ZIP Code Phon e Number [facility] [address] [place] [address] [facility] CBC with platelets (07/07/2011 1:47 PM CDT) P athologist Signature WBC 7.4 4.0 - 11.0 [place] 10e9/L [facility] RBC Count 4.82 4.4 - 5.9 [place] 10e12/L [facility] Hemoglobin 14.8 13.3 [facility] 17.[facility] g/dL [facility] Hematocrit 42.7 40.0 - [facility] 53.0 % [facility] MCV 89 78 - 100 [facility] MCH 30.7 26.5 - [place] 33.0 pg [facility] MCHC 34.7 31.5 - [facility] 36.5 g/dL [facility] RDW 13.4 10.0 - [facility] 15.0 % [facility] Platelet Count 178 150 - 450 [facility] 10e9/L [facility] Specimen Anatomical Collection Method Collection Time Receive d Time (Source) Location / / Volume Laterality Blood specimen 07/07/2011 1:47 PM 011 1:48 (specimen) CDT PM CDT Ramón Shine MD LAB - BLOOD ORDERABLES Performing Organization Address City/State/ZIP Code Phon e Number [facility] [address] [place] [address] [facility] documented in this encounter Visit Diagnoses Diagnosis Multiple sclerosis (H) - Primary Multiple sclerosis documented in this encounter Care Teams Portable Machine Sander Relationship Specialty Start Date End Date Teresita Garcia MD PCP - General Family Practice 01/22/[id number] [place] [address] documented as of this encounter
--- OUTSIDE RECORDS SUMMARY | 2022-09-04 16:46 | XMS_ITS | Encounter Summary ---
:1960 Author Organization [place] Address [address] [place] [address] Care Team Providers Name Role Phone Teresita Garcia MD Primary Care Provider Reason for Visit Reason Onset Date Comments Panel Management 04/11/2013 Encounter Details Date Type Department Care Team Description 04/11/2013 Telephone [facility] Ara Saleh MD Panel Management [address] [phone] Social History Tobacco Use Types Packs/Day Years [...] 04/25/2013 1:23 PM CDT lmtcb to the [facility] team. Mary Sanchez CMA Telephone Encounter - Blanche Ward - 04/18/2013 8:47 AM CDT LM for pt to call back to clinic. Telephone Encounter - Blanche Ward - 04/11/2013 2:16 PM CDT Panel Management Review Date of last visit with a [place] provider: on 06/21/12. Date of next visit with a [place] provider: None. Problem List Patient Active Problem List Diagnosis ??? MULTIPLE SCLEROSIS ??? CARDIOVASCULAR SCREENING; LDL GOAL LESS THAN 160 ??? Cannabis abuse ??? Mild major depression ??? Baclofen pump failure ??? Spasticity ??? Seborrheic dermatitis of scalp ??? Status post hip replacement ??? Vcph-Ziuxh-Hszfhqi disease ??? Atopic rhinitis Health Maintenance List Health Maintenance Topic Date Due ??? Colon Cancer Screen (System Assigned) 12/15/2011 ??? Phq-9 Q6 Months (No Inbasket) 12/19/2012 ??? Depression Action Plan Q1 Yr (No Inbasket) 06/21/2013 ??? Influenza Vaccine (System Assigned) 06/28/2013 ??? Lipid Screen Q5 Yr Male (System Assigned) 2015 ??? Tetanus Immunization ( [place] Assigned) 12/13/2020 For diabetic patients with hypertension and/or hyperlipidemia, only choose diabetes. Patient has the following on his problem list: Depression / Dysthymia review PHQ-9 SCORE ([facility]) 12/13/2010 06/21/2012 Total Score 9 5 Patient [...] to do PHQ9. Type of outreach: Sent [employer] message. Questions for provider review: None Blanche [...] on filedocumented in this encounter Care Teams Lead Miner Blasting Relationship Specialty Start Date End Date Teresita Garcia MD PCP - General Family Practice 01/22/11 [address] [place] [address] documented as of this encounter
--- OUTSIDE RECORDS SUMMARY | 2022-09-04 16:46 | XMS_ITS | Encounter Summary ---
:1960 Author Organization [place] Address [facility] [place] [address] Care Team Providers Name Role Phone Teresita Garcia MD Primary Care Provider Reason for Visit Reason Onset Date Comments Orders 2013 [facility] Encounter Details Date Type Department Care Team Description 2013 Telephone [facility] Teresita Garcia MD Orders ([facility] [address]) [address] [place] [phone] Social History Tobacco Use Types Packs/Day Years [...] do you attend protestant or Not asked alevism services? Do you [...] day, form completed and faxed Lalita Ricketts/YANELI [place] Telephone Encounter - Malena Hankins - 2013 1:53 PM CDT Recd 1 page fax from [employer]. Please complete and sign Urological Supplies Prescriptionform and fax to [phone]. Form in AA folder at [place]. Malena Hankins Camera Systems Engineer documented in this encounter Plan of Treatment Not on filedocumented as of this encounter Visit Diagnoses Not on filedocumented in this encounter Care Teams Hand Cigar Making Supervisor Relationship Specialty Start Date End Date Teresita Garcia MD PCP - General Family Practice 01/22/11 [address] [place] [address] documented as of this encounter
--- OUTSIDE RECORDS SUMMARY | 2022-09-04 16:46 | XMS_ITS | Encounter Summary ---
:1960 Author Organization [place] Address [facility] [place] [address] Care Team Providers Name Role Phone Jonathan Velásquez MD Primary Care Provider Reason for Visit Reason Comments Flu Walk-in:Flu like symptoms Encounter Details Date Type Department Care Team Description 10/02/2010 [facility]/Nurse [facility] Flu (Walk-in:Flu like Visit Clinic [facility]) [facility], [address] [place] [address] Social History Tobacco Use Types [...] do you attend jain or Not asked sikhism services? Do you [...] 36.4 ??C (97.6 ??F) 10/02/2010 3:24 PM SALES SERVICE EXECUTIVE Respiratory Rate - - Oxygen Saturation - [...] Patient comfortable with advice. Haily Adams RN S SERVICE EXECUTIVE documented in this encounter Plan of Treatment Not on filedocumented as of this encounter Visit Diagnoses Diagnosis Flu-like symptoms - Primary Influenza with other respiratory manifes tations documented in this encounter Care Teams Agricultural And Forestry Supervisor Relationship Specialty Start Date End Date Jonathan Velásquez MD PCP - General 11/10/05 01/21/11 documented as of this encounter
--- OUTSIDE RECORDS SUMMARY | 2022-09-04 16:46 | XMS_ITS | Encounter Summary ---
:1960 Author Organization [place] Address [address] [facility] [place] [address] Care Team Providers Name Role Phone Teresita Garcia MD Primary Care Provider Encounter Details Date Type Department Care Team Description 06/22/2013 Orders Only [facility] Mul tiple sclerosis (H); [place] Other malaise and fatigue; [address] [facility] Other general symptoms; [place] Disturbance of skin sensation; [phone] Lack of coordination; [phone] Other abnormali ty of urination; Urinary tract [...] Component Value Ref Test [facility] Range Method Time Signature Specimen Catheterized [place] Description Urine [facility] Culture Micro No growth [facility] Micro Report FINAL 06/24/2013 [facility] Specimen Anatomical Collection Method Collection Time Receive d Time (Source) Location / / Volume Laterality Urine specimen 06/22/2013 4:02 PM 013 4:06 (specimen) CDT PM CDT Ramón Shine MD LAB - MICRO GENERAL ORDERABL ES Performing Organization Address City/[facility] Code Phon e Number [facility] [address] [place], [place] [phone] Urine Microscopic (06/22/2013 4:01 PM CDT) P athologist Signature WBC Urine O - 2 0 - 2 /HPF [facility] RBC Urine O - 2 0 - 2 /HPF [facility] Squamous Few FEW /LPF [place] Epithelial /LPF [facility] Specimen Anatomical Collection Method Collection Time Receive d Time (Source) Location / / Volume Laterality 06/22/2013 4:01 PM 3 4:04 CDT PM CDT Ramón Shine MD LAB - URINE ORDERABLES Performing Organization Address City/[facility]/ZIP [facility] Phon e Number [facility] [address] [place], [place] [phone] (ABNORMAL) *UA reflex to Microscopic and Culture (06/22/2013 4:01 PM CDT) Component Value Ref Test Analysis Performed At [facility] gist Range Method Time Signature Color Urine Yellow [facility] Appearance Urine Clear [facility] Glucose Urine Negative NEG [place] mg/dL [facility] Bilirubin Urine Negative NEG [facility] Ketones Urine Negative NEG [place] mg/dL [facility] Specific [place] 1.010 1.003 - [place] Urine 1.035 [facility] Blood Urine Trace (A) NEG [facility] pH Urine 6.0 5.0 - [place] 7.0 pH [facility] Protein Albumin Negative NEG [place] Urine mg/dL [facility] Urobilinogen 0.2 0.2 - [place] Urine 1.0 CLINICS EU/dL [place] Nitrite Urine Negative NEG [facility] Leukocyte Negative NEG [place] Esterase Urine [facility] Source Catheterized [place] Urine [facility] Specimen Anatomical Collection Method Collection Time Receive d Time (Source) Location / / Volume Laterality Urine specimen 06/22/2013 4:01 PM 013 4:04 (specimen) CDT PM CDT Ramón Shine MD LAB - URINE ORDERABLES Performing Organization Address City/State/ZIP Code Phon e Number [facility] [address] [place], [place] [phone] documented in this encounter Visit Diagnoses Diagnosis Multiple sclerosis (H) Multiple sclerosis Other malaise and fatigue Other general symptoms(780.99) Other general symptoms Disturbance of skin sensation Lack of coordination Other abnormality of urination(788.69) Other abnormality of urination Urinary tract infection, site not specif ied documented in this encounter Care Teams Supervisor Water Softener Service Relationship Specialty Start Date End Date Teresita Garcia MD PCP - General Family Practice 01/22/11 [address] [place] [address] documented as of this encounter
--- OUTSIDE RECORDS SUMMARY | 2022-09-04 16:46 | XMS_ITS | Encounter Summary ---
:1960 Author Organization [place] Address [address] [facility] [place] [address] Care Team Providers Name Role Phone Teresita Garcia MD Primary Care Provider Encounter Details Date Type Department Care Team Description 09/08/2011 Orders Only [facility] Enc ounter for long-term (current) use of other medications; [facility] Other malaise and fatigue; [address] [place] [address] Multiple sclerosis (H) [place] [address] Social History Tobacco Use Types [...] do you attend episcopalian or Not asked scientologist services? Do you [...] PM Encounter for Resul ts for this SHELLFISH CHECKER long-term (current) procedur e are in use of other the results medications section. Other malaise and fatigue Multiple sclerosis (H) AST Routine 09/08/2011 3:52 PM Encounter for Results for this SHELLFISH CHECKER long-term (current) procedur e are in use of other the results medications section. Other malaise and fatigue Multiple sclerosis (H) ALT Routine 09/08/2011 3:52 PM Encounter for Results for this SHELLFISH CHECKER long-term (current) procedur e are in use of other the results medications section. Other malaise and fatigue Multiple sclerosis (H) documented in this encounter Results Bilirubin, total (09/08/2011 3:52 PM SHELLFISH CHECKER) athologist Signature Bilirubin Total 0.7 0.2 - 1.3 [facility] mg/dL CLINIC LAB Specimen Anatomical Collection Method Collection Time Receive d Time (Source) Location / / Volume Laterality Blood specimen 09/08/2011 3:52 PM 011 3:53 (specimen) SHELLFISH CHECKER PM SHELLFISH CHECKER Ramón Shine MD LAB - BLOOD ORDERABLES Performing Organization Address [facility] Phon e Number [facility] [address] [place] [address] [phone] [facility] ALT (09/08/2011 3:52 PM SHELLFISH CHECKER) athologist Signature ALT 27 0 - 70 U/L [facility] Specimen Anatomical Collection Method Collection Time Receive d Time (Source) Location / / Volume Laterality Blood specimen 09/08/2011 3:52 PM 011 3:53 (specimen) SHELLFISH CHECKER PM SHELLFISH CHECKER Ramón Shine MD LAB - BLOOD ORDERABLES Performing Organization Address [facility] Phon e Number [facility] [address] [place] [address] [phone] [facility] AST (09/08/2011 3:52 PM SHELLFISH CHECKER) athologist Signature AST 24 0 - 55 U/L [facility] Specimen Anatomical Collection Method Collection Time Receive d Time (Source) Location / / Volume Laterality Blood specimen 09/08/2011 3:52 PM 011 3:53 (specimen) SHELLFISH CHECKER PM SHELLFISH CHECKER Ramón Shine MD LAB - BLOOD ORDERABLES Performing Organization Address City/State/ZIP Code Phon e Number [facility] [address] [place] [address] [facility] documented in this encounter Visit Diagnoses Diagnosis Encounter for long-term (current) use of other medications Other malaise and fatigue Multiple sclerosis (H) Multiple sclerosis documented in this encounter Care Teams Admin Prog Coord Relationship Specialty Start Date End Date Teresita Garcia MD PCP - General Family Practice 01/22/11 [address] [place] [address] documented as of this encounter
--- OUTSIDE RECORDS SUMMARY | 2022-09-04 16:46 | XMS_ITS | Encounter Summary ---
:1960 Author Organization [place] Address [address] [facility] [place] [place] [address] Care Team Providers Name Role Phone Teresita Garcia MD Primary Care Provider Reason for Referral Referral not Required - Closed Specialty Diagnoses / Procedures Referred By Contact Refer red To Contact Diagnoses Hip pain Teresita Garcia MD [place] [id number] [place] [address] [facility], [place] [address]82 [facility] [address] [place] [address] Phone: Fax: Referral ID Status Reason Start Date Expiration Date Visits Requ ested Visits Authorized [id number] Closed 06/21/2012 12/18/2012 1 1 Reason for Visit Reason Comments Musculoskeletal Problem right hip pain Health Maintenance referral generated for colon oscopy--phq and DAP completed today Encounter Details Date Type Department Care Team Description 06/21/2012 Office Visit [facility] Teresiat Garcia MD Hip pain (Primary Dx); Clinic [place] [id number] [place] [address] Mild major depression (H) [address] [place] [phone] Social History Tobacco Use Types Packs/Day Years [...] do you attend adventist or Not asked mu-ism services? Do you [...] Date ??? Multiple sclerosis sees neurology at [facility] ??? Juvenile osteochondrosis of hip [...] Name Type Priority Associated Diagnoses Order S [facility] GASTROENTEROLOGY ADULT Referral Routine Hip pain Order [...] mild documented in this encounter Care Teams Clinical Support Manager Relationship Specialty Start Date End Date Teresita Garcia MD PCP - General Family Practice 01/22/11 [address] [place] [address] documented as of this encounter
--- OUTSIDE RECORDS SUMMARY | 2022-09-04 16:46 | XMS_ITS | Encounter Summary ---
:1960 Author Organization [place] Address [address] [facility] [place] [address] Care Team Providers Name Role Phone Teresita Garcia MD Primary Care Provider Reason for Referral Referral not Required - Closed Specialty Diagnoses / Procedures Referred By Contact Refer red To Contact Diagnoses Teresita Serrano MD [facility] [address] [facility] [address] [facility] [address] [place], [place] [address] [place] [address] Phone: [phone] Fax: Referral ID Status Reason Start Date Expiration Date Visits Requ ested Visits Authorized [id number] Closed 05/14/2011 11/10/2011 1 1 Reason for Visit Reason Comments Pre-Op Exam Encounter Details Date Type Department Care Team Description [facility]/14[facility]2011 [facility] Preop general physical exam (Primary Dx) ; [facility] [place] [address] Other specified disease of hair and hair follicles; [address] [place], [place] Rhinitis, allergic, perennia l; [place] [address] [facility] [address] Social History Tobacco Use Types Packs/Day [...] do you attend mormonism or Not asked baptism services? Do you belong to any clubs or Not asked organizations such as mormonism groups, unions, fraTime Warden or athletic groups, or school groups? How [...] for the very basics like Not v noe hard 07/05/2020 food, housing, medical care, and [...] Wes Camp - 05/14/2011 11:27 AM CDT [address] [address] PRE-OP EVALUATION: Today's date: 05/14/2011 Dejuan Rodriguez (: 1960) presents for pre-operative evaluation assessment as requested byDr. Mejía. He requires evaluation and anesthesia risk assessment prior to undergoing surgery/procedure for treatment of baclofen pump . Date of Surgery/ Procedure: 05/15/11 Time of Surgery/ Procedure: 7:45 Hospital/Surgical Facility: [facility] Fax number for surgical facility: [phone] Primary Physician: Dr. Garcia Type of Anesthesia [...] sclerosis sees neurology at [facility] ??? Juvenile osteochondrosis of hip and [...] athologist Signature Sodium 143 133 - 144 [facility] mmol/L CLINIC LAB Potassium 4.2 3.4 - 5.3 [facility] mmol/L [facility]IC LAB Chloride 103 94 - 109 [facility] mmol/L [facility]IC LAB Carbon Dioxide 25 20 - 32 [facility] mmol/L [facility] LAB Anion Gap 15 6 - 17 [facility] mmol/L [facility]INIC LAB Glucose 91 60 - 99 [facility] mg/dL CLINIC LAB Urea Nitrogen 19 5 - 24 [facility] mg/dL CLINIC LAB Creatinine 1.14 0.66 - [facility] 1.25 mg/dL CLINIC LAB GFR Estimate 68 >60 [facility] mL/min/1.7 CLINIC LAB m2 GFR Estimate If 83 >60 [facility] Black mL/min/1.7 CLINIC LAB m2 Calcium 9.9 8.5 - 10.4 [facility] mg/dL CLINIC LAB Specimen Anatomical Collection Method Collection Time Receive d Time (Source) Location / / Volume Laterality Blood specimen 05/14/2011 4:31 PM 011 4:37 (specimen) CDT PM CDT Teresita Garcia MD LAB - BLOOD ORDERABLES Performing Organization Address City/State/ZIP Code Phon e Number [facility] [address] [place] [address] [facility] HEMOGLOBIN (05/14/2011 4:31 PM CDT) P athologist Signature Hemoglobin 16.0 13.3 - 17.7 [facility] g/dL [facility] LAB Specimen Anatomical Collection Method Collection Time Receive d Time (Source) Location / / Volume Laterality Blood specimen 05/14/2011 4:31 PM 011 4:37 (specimen) CDT PM CDT Teresita Garcia MD LAB - BLOOD ORDERABLES Performing Organization Address City/[facility]/ZIP Code Phon e Number [facility] [address] [place] [address] [facility] documented in this encounter Visit Diagnoses Diagnosis Preop general physical exam - Primary Other specified pre-operative examinatio n Other specified disease of hair and hair follicles Rhinitis, allergic, perennial Allergic rhinitis, cause unspecified Moles Benign neoplasm of skin, site unspecifie d documented in this encounter Care Teams Contact Lens Technician Relationship Specialty Start Date End Date Teresita Garcia MD PCP - General Family Practice 01/22/11 [address] [place] [address] documented as of this encounter
--- OUTSIDE RECORDS SUMMARY | 2022-09-04 16:46 | XMS_ITS | Encounter Summary ---
:1960 Author Organization [place] Address [address] [facility] [place] [address] Care Team Providers Name Role Phone Teresita Garcia MD Primary Care Provider Reason for Referral Referral not Required - Closed Specialty Diagnoses / Procedures Referred By Contact Refer red To Contact Diagnoses Screen for colon cancer Teresita Garcia MD [facility] [id number] [place] [phone] [place] [address] Phone: Fax: Referral ID Status Reason Start Date Expiration Date Visits Requ ested Visits Authorized [id number] Closed 04/19/2013 10/16/2013 1 1 Reason for Visit Reason Comments Pre-Op Exam surgery 05/04/13 [place] Encounter Details Date Type Department Care Team Description 04/19/2013 Office Visit [facility] Teresita Garcia MD Preop general physical exam (Primary Dx) ; Clinic [place] [address] [place] [address]; [address] [place], [place] for [place] [phone] Social History Tobacco Use Types Packs/Day Years [...] do you attend evangelical or Not asked buddhism services? Do you belong to any clubs or Not asked organizations such as evangelical groups, unions, fraDerceto or athletic groups, or school groups? How [...] Garcia MD - 04/19/2013 11:12 AM CDT [place] [address] Dept: [phone] PRE-OP EVALUATION: Today's date: 04/19/2013 Dejuan Rodriguez (: 1960) presents for pre-operative evaluation assessment as requested byDr. Roy. He requires evaluation and anesthesia risk assessment prior to undergoing surgery/procedure for treatment of urology problem . Proposed procedure: Cysto Bladder Date of Surgery/ Procedure: 05/04/13 Time of Surgery/ Procedure: [facility] Hospital/Surgical Facility: [facility] Fax number for surgical facility: [phone] Primary Physician: Teresita Garcia Type of Anesthesia [...] process. Provider to review and confirm.) ??? Eogd-Wiajd-Qdeyslx disease 05/14/2011 ??? Atopic rhinitis 05/14/2011 (Problem [...] Date ??? Multiple sclerosis sees neurology at [facility] ??? Juvenile osteochondrosis of hip and [...] evaluation report is provided to requesting physician. [facility] Preop Guidelines 2013 documented in this encounter Nursing Notes 04/19/2013 11:00 AM CDT >> RACHELLE Soto Apr 19, 2013 11:12 AM Patient presents with: Pre-Op Exam - surgery 8/7/13 [place] Initial BP 116/80 Pulse 72 Temp 98 [...] Name Type Priority Associated Diagnoses Order S [facility] GASTROENTEROLOGY ADULT Referral Routine Screen for [...] Microscopic and Culture (04/19/2013 11:53 AM CDT) [facility] Method Time Signature Color Urine Yellow [facility] Appearance Urine Clear [facility] Glucose Urine Negative NEG mg/dL [facility] Bilirubin Urine Negative NEG [facility] Ketones Urine Negative NEG mg/dL [facility] Specific [place] 1.010 1.003 - [place] Urine 1.035 [facility] Blood Urine Negative NEG [facility] pH Urine 6.0 5.0 - 7.0 [place] pH [facility] Protein Albumin Negative NEG mg/dL [place] Urine [facility] Urobilinogen 0.2 0.2 - 1.0 [place] Urine EU/dL [facility] Nitrite Urine Negative NEG [facility] Leukocyte Negative NEG [place] Esterase Urine [facility] Source Midstream [place] Urine [facility] Specimen Anatomical Collection Method Collection Time Receive d Time (Source) Location / / Volume Laterality Urine specimen 04/19/2013 11:53 3 (specimen) AM CDT 11:54 AM CDT Teresita Garcia MD LAB - URINE ORDERABLES Performing Organization Address City/State/[facility] Code Phon e Number [facility] [address] [place] [address] [facility] [address] [place] [address] Hepatic panel (04/19/2013 11:52 AM CDT) athologist Signature Bilirubin 0.0 0.0 - 0.3 [facility] Conjugated mg/dL CLINIC LAB Bilirubin Delta 0.1 0.0 - 0.4 [place] mg/dL [facility] Bilirubin Total 1.2 0.2 - 1.3 [place] mg/dL [facility] Albumin 4.5 3.9 - 5.1 [facility] Comment: Reference range changed on 05/30. Protein Total 7.5 6.8 - 8.8 g/dL [place] Comment: As of 08, reference range reflects plasma specimen type. Alkaline Phosphatase 65 40 - 150 U/L [facility] LAB ALT 37 0 - 70 U/L [place] [facility] IC LAB AST 23 0 - 45 U/L [place] [facility] IC LAB Specimen Anatomical Collection Method Collection Time Receive d Time (Source) Location / / Volume Laterality Blood specimen 04/19/2013 11:52 3 (specimen) AM CDT 11:53 AM CDT Teresita Garcia MD LAB - BLOOD ORDERABLES Performing Organization Address City/[facility] Phon e Number [facility] [address] [facility] [place] [address] [phone] [facility] [facility] [place] [address] [phone] (ABNORMAL) Basic metabolic panel (04/19/2013 11:52 AM CDT) P athologist Signature Sodium 144 133 - 144 [place] mmol/L [facility] Potassium 4.1 3.4 - 5.3 [place] mmol/L [facility] Chloride 105 94 - 109 [place] mmol/L [facility] Carbon Dioxide 27 20 - 32 [place] mmol/L [facility] Anion Gap 12 6 - 17 [place] mmol/L [facility] Glucose 103 (H) 60 - 99 [place] mg/dL [facility] Urea Nitrogen 13 7 - 30 [place] mg/dL [facility] Creatinine 1.09 0.66 - [place] 1.25 mg/dL [facility] GFR Estimate 71 >60 [place] mL/min/1.7 [facility] m2 LAB GFR Estimate If 86 >60 [place] Black mL/min/1.7 [facility] m2 LAB Calcium 9.7 8.5 - 10.4 [place] mg/dL [facility] Specimen Anatomical Collection Method Collection Time Receive d Time (Source) Location / / Volume Laterality Blood specimen 04/19/2013 11:52 3 (specimen) AM CDT 11:53 AM CDT Teresita Garcia MD LAB - BLOOD ORDERABLES Performing Organization Address City/[facility] Code Phon e Number [facility] [address] [place] [address] [phone] [facility] [address] [facility] [place] [address] CBC with platelets (04/19/2013 11:52 AM CDT) P athologist Signature WBC 6.6 4.0 - 11.0 [place] 10e9/L [facility] RBC Count 4.77 4.4 - 5.9 [place] 10e12/L [facility] Hemoglobin 15.0 13.3 - [place] 17.7 g/dL [facility] Hematocrit 42.8 40.0 - [place] 53.0 % [facility] MCV 90 78 - 100 [facility] MCH 31.4 26.5 - [place] 33.0 pg [facility] MCHC 35.0 31.5 - [place] 36.5 g/dL [facility] RDW 12.7 10.0 - [place] 15.0 % [facility] Platelet Count 175 150 - 450 [facility] 10e9/L [facility] Specimen Anatomical Collection Method Collection Time Receive d Time (Source) Location / / Volume Laterality Blood specimen 04/19/2013 11:52 3 (specimen) AM CDT 11:53 AM CDT Teresita Garcia MD LAB - BLOOD ORDERABLES Performing Organization Address City/State/ZIP Code Phon e Number [facility] [id number] [place] [address] [facility] [address] [place] [address] documented in this encounter Visit Diagnoses Diagnosis Preop general physical exam - Primary Other specified pre-operative examinatio n Eczema Contact dermatitis and other eczema, due to unspecified cause Screen for colon cancer Special screening for malignant neoplasm s, colon documented in this encounter Care Teams Simulation Software Engineer Relationship Specialty Start Date End Date Teresita Garcia MD PCP - General Family Practice 01/22/[id number] [place] [address] documented as of this encounter
--- OUTSIDE RECORDS SUMMARY | 2022-09-04 16:46 | XMS_ITS | Encounter Summary ---
:1960 Author Organization [place] Address [address] [facility] [place] [address] Care Team Providers Name Role Phone Teresita Garcia MD Primary Care Provider Reason for Visit Reason Onset Date Comments Erroneous encounter-disregard 04/11/2013 Encounter Details Date Type Department Care Team Description 04/11/2013 Telephone [facility] Ara Saleh MD Erroneous Clinic [address] encounter-disregard [id number] [place] [address] [phone] Social History Tobacco Use Types Packs/Day Years [...] do you attend catholic or Not asked temple services? Do you [...] on filedocumented in this encounter Care Teams Bevel Polisher Relationship Specialty Start Date End Date Teresita Garcia MD PCP - General Family Practice 01/22/11 [address] [place] [address] documented as of this encounter
--- OUTSIDE RECORDS SUMMARY | 2022-09-04 16:46 | XMS_ITS | Encounter Summary ---
:1960 Author Organization [place] Address [address] [facility] [place] [address] Care Team Providers Name Role Phone Teresita Garcia MD Primary Care Provider Encounter Details Date Type Department Care Team Description 06/22/[address] [facility] Ramón Shine le sclerosis (H) (Primary Dx); [facility] MD Other ma lai and fatigue; Laboratory Other general symptoms; [address] [facility] Disturbance of skin sensatio n; [place], [place] Lack of digital account coordinator rdination; [phone] Other abnormality of urinati on; [phone] Urinary tract i nfection, site not specified [...] do you attend jew or Not asked alevism services? Do you [...] ied documented in this encounter Care Teams Sommelier Relationship Specialty Start Date End Date Teresita Garcia MD PCP - General Family Practice 01/22/11 [address] [place] [address] documented as of this encounter
--- OUTSIDE RECORDS SUMMARY | 2022-09-04 16:46 | XMS_ITS | Encounter Summary ---
:1960 Author Organization [place] Address [facility] [place] [address] Care Team Providers Name Role Phone Teresita Garcia MD Primary Care Provider Reason for Visit Reason Comments Pre-Op Exam Surgery on 01/23/11 Encounter Details Date Type Department Care Team Description 01/22/2011 Office Visit [facility] Pre op general physical [place] exam (Primary Dx) [address] [place] [address] Social History Tobacco Use [...] do you attend episcopal or Not asked temple services? Do you [...] Elma Thorne - 01/22/2011 1:34 PM CDT [facility] [address] [place] [id number] PRE-OP EVALUATION: Today's date: 01/22/2011 Dejuan Rodriguez (: 1960) presents for pre-operative evaluation assessment as requested byDr. Frederic Mejía. He requires evaluation and anesthesia risk assessment prior to undergoing surgery/procedure for treatment of headache . Proposed procedure: Blood patch. Date of Surgery/ Procedure: 01/23/11 Time of Surgery/ Procedure: 12:30PM Hospital/Surgical Facility: [facility] Fax number for surgical facility: [phone] Primary Physician: Dr. Garcia Type of Anesthesia [...] Date ??? Multiple sclerosis sees neurology at [facility] ??? Juvenile osteochondrosis of hip and pelvis [...] n documented in this encounter Care Teams Aerotriangulation Specialist Relationship Specialty Start Date End Date Teresita Garcia MD PCP - General Family Practice 01/22/11 [address] [place] [address] documented as of this encounter
--- OUTSIDE RECORDS SUMMARY | 2022-09-04 16:47 | XMS_ITS | Encounter Summary ---
:1960 Author Organization [place] Address [facility] [place] [address] Care Team Providers Name Role Phone Jonathan Velásquez MD Primary Care Provider Reason for Visit Reason Comments Sinus Problem past week Encounter Details Date Type Department Care Team Description 08/13/2006 Office Visit [facility] Patience Sampson APRN ACUTE MAXILLARY Clinic [facility] SINUSITIS (Primary Dx) [address] [place] [address] Social History Tobacco Use Types [...] do you attend episcopalian or Not asked sabianism services? Do you [...] Comments Blood Pressure 102/63 08/13/2006 11:30 AM COMMAND AND CONTROL SYSTEMS INTEGRATOR Pulse 98 08/13/2006 11:30 AM COMMAND AND CONTROL SYSTEMS INTEGRATOR Temperature 36.6 ??C (97.9 ??F) 08/13/2006 11:30 AM COMMAND AND CONTROL SYSTEMS INTEGRATOR Respiratory Rate - - Oxygen Saturation - - Inhaled Oxygen Concentration - - Weight 78.9 kg (174 lb) 08/13/2006 11:30 AM COMMAND AND CONTROL SYSTEMS INTEGRATOR Height 166.4 cm (5' 5.5) 08/13/2006 11:30 AM COMMAND AND CONTROL SYSTEMS INTEGRATOR Body Mass Index 28.51 08/13/2006 11:30 AM COMMAND AND CONTROL SYSTEMS INTEGRATOR documented in this encounter Progress Notes Patience [...] Follow up if not improving as expected AND AND CONTROL SYSTEMS INTEGRATOR documented in this encounter Nursing Notes 08/13/2006 [...] Primary documented in this encounter Care Teams Conservation Coordinator Relationship Specialty Start Date End Date Jonathan Velásquez MD PCP - General 11/10/05 01/21/11 documented as of this encounter
--- OUTSIDE RECORDS SUMMARY | 2022-09-04 16:47 | XMS_ITS | Encounter Summary ---
:1960 Author Organization [place] Address [facility] [address] Care Team Providers Name Role Phone Unavailable Primary Care Provider Unavailable Reason for Visit Reason Comments Consult Jax natalie Has MS Encounter Details Date Type Department Care Team Description 09/01/2005 Office Visit [facility] Jonathan Velásquez, MULTI PLE SCLEROSIS (H); Clinic Britta Chaudhry MD [facility] [address] XXX RETIRED X XX Drive [address] [place] Britta Chaudhry [facility] [address] NABIL RIOS [phone] [address] Social History Tobacco Use Types Packs/Day [...] do you attend hindu or Not asked denominational services? Do you [...] Comments Blood Pressure 108/70 09/01/2005 12:15 PM SENIOR IOS SOFTWARE ENGINEER Pulse 80 09/01/2005 12:15 PM SENIOR IOS SOFTWARE ENGINEER Temperature 36.2 ??C (97.2 ??F) 09/01/2005 12:15 PM SENIOR IOS SOFTWARE ENGINEER Respiratory Rate - - Oxygen Saturation - - Inhaled Oxygen Concentration - - Weight 72.6 kg (160 lb) 09/01/2005 12:15 PM SENIOR IOS SOFTWARE ENGINEER Height 167.6 cm (5' 6) 09/01/2005 12:15 PM SENIOR IOS SOFTWARE ENGINEER Body Mass Index 25.82 09/01/2005 12:15 PM SENIOR IOS SOFTWARE ENGINEER documented in this encounter Progress Notes [...] in the meantime, he will call me. OR IOS SOFTWARE ENGINEER documented in this encounter Nursing Notes 09/01/2005 [...]
--- OUTSIDE RECORDS SUMMARY | 2022-09-04 16:47 | XMS_ITS | Encounter Summary ---
:1960 Author Organization [place] Address [address] [facility] [place] [address] Care Team Providers Name Role Phone Jonathan Velásquez MD Primary Care Provider Teresita Garcia MD Primary Care Provider Teresita Garcia MD Unavailable Teresita Garcia MD Unavailable Reason for Visit Reason Onset Date Comments Medication Request 09/17/2010 FNA. Nasonex Encounter Details Date Type Department Care Team Description 09/17/2010 Telephone [facility] Jonathan Velásquez, Medic ation Request Clinic Britta Chaudhry MD (FNA. Nasonex) [address] [facility] XXX RETIRED X XX Drive [address] [facility] [place] [place] [address] NABIL ZHOU [phone] (Wo rk) Social History Tobacco Use Types [...] do you attend jainism or Not asked confucianist services? Do you [...] request. Shelia Upton Team 2 RN /ACC X [employer] ADMINISTRATOR Telephone Encounter - Makenzie Lazaro - 09/17/2010 12:17 PM CST I called yesterday and a nurse was going to call me back. Patient states he called yesterday requesting a refill for Nasonex and forgot to turn on answering machine. Please call patient. Thank you. Makenzie Lazaro RN [facility] [phone] X [employer] ADMINISTRATOR documented in this encounter Plan of Treatment Not on filedocumented as of this encounter Visit Diagnoses Diagnosis Acute upper respiratory infections of ot her multiple sites - Primary documented in this encounter Care Teams Stage Electrician Relationship Specialty Start Date End Date Jonathan Velásquez MD PCP - General 11/10/05 01/21/11 Teresita Garcia MD PCP - General Family Practice 01/22/11 [address] [place], [place] [id number] Teresita Garcia MD PCP - Assigned PCP 11/16/16 11/30/18 [address] [place], [place] [id number] Teresita Garcia MD Assigned PCP 11/16/16 12/28/[id number] [place] [address] documented as of this encounter
--- OUTSIDE RECORDS SUMMARY | 2022-09-04 16:47 | XMS_ITS | Encounter Summary ---
:1960 Author Organization [place] Address [address] [facility] [place] [address] Care Team Providers Name Role Phone Jonathan Velásquez MD Primary Care Provider Teresita Garcia MD Primary Care Provider Teresita Garcia MD Unavailable Teresita Garcia MD Unavailable Dolores Caputo TURNER OFF Unavailable Letha Vasquez MA Unavailable Audrey Hickman MD Unavailable [phone] Encounter Details Date Type Department Care Team Description 02/28/2007 [facility] Jonathan Velásquez Abbot t [facility] Britta Chaudhry MD [address] XXX RETIRED X XX Drive [address] [place] [address] [place] [address] NABIL ZHOU [phone] (Wo rk) Social History Tobacco Use Types [...] do you attend scientology or Not asked temple services? Do you [...] SUMMARY - Primary documented in this encounter Additional Health Concerns Infection Onset Date Last Indicated Resolved Time Rule Out C-difficile 09/01/2022 09/01/2022 documented as of this encounter Care Teams Account Executive Sales Representative Relationship Specialty Start Date End Date Jonathan Velásquez MD PCP - General 11/10/05 01/21/11 Teresita Garcia MD PCP - General Family Practice 01/22/11 [address] [place] [address] Teresita Garcia MD PCP - Assigned PCP 11/16/16 11/30/18 [address] [place] [address] Teresita Garcia MD Assigned PCP 11/16/16 12/28/21 [address] [place] [address] Dolores Caputo, TURNER OFF Lead Shuttle Final Inspector Primary Care - CC 06/27/20 09/03/20 Letha Vasquez, Community Health Worker 07/05/20 09/03/20 MA Audrey Hickman Assigned PCP 12/29/21 MD Bernie [address] [place] [address] documented as of this encounter
--- OUTSIDE RECORDS SUMMARY | 2022-09-04 16:47 | XMS_ITS | Encounter Summary ---
:1960 Author Organization [place] Address [address] [facility] [place] [address] Care Team Providers Name Role Phone Jonathan Velásquez MD Primary Care Provider Encounter Details Date Type Department Care Team Description 04/29/2006 Orders Only [facility] SCR EENING FOR VENERAL DIS [facility] [address] [place] [address] Social History Tobacco Use Types [...] do you attend zoroastrian or Not asked sikhism services? Do you [...] Component Value Ref Test Analysis Performed At [facility] Method Time Signature Specimen Urine [facility] LABS N Gonorrhea Negative for N. gonorrhoeae rRNA by desizing machine back tender mediated amplification. [facility] PCR A negative result by transc ription mediated amplification does not preclude the [place] presence of N. gonorrhoeae infection because re sults are dependent on proper CAMPUS LABS and adequate collection, absence of inhibitors, and suffici ent rRNA to be detected. Specimen Anatomical Collection Method Collection Time Receive d Time (Source) Location / / Volume Laterality 04/29/2006 4:17 PM 6 4:18 CDT PM CDT Jonathan Velásquez MD LABORATORY Performing Organization Address City/[facility]/ZIP Code Phon e Number [address] LABS CHLMYD TRACH, DNA, AMP PROBE (04/29/2006 4:17 PM CDT) Component Value Ref Test Analysis Performed At [facility] Method [place] Signature Specimen Urine [facility] LABS Chlamydia Negative for C. trachomatis rRNA by desizing machine back tender mediated amplification. [facility] Trachomatis A negative result by transc ription mediated amplification does not preclude the [place] PCR presence of C. trachomatis infection because results are dependent on proper CAMPUS LABS and adequate collection, absence of inhibitors, and suffici ent rRNA to be detected. Specimen Anatomical Collection Method Collection Time Receive d Time (Source) Location / / Volume Laterality 04/29/2006 4:17 PM 6 4:18 CDT PM CDT Jonathan Velásquez MD LABORATORY Performing Organization Address City/[facility]/ZIP Code Phon e Number [address] LABS documented in this encounter Visit Diagnoses Diagnosis Screening examination for venereal disea se documented in this encounter Care Teams Timber Management Professor Relationship Specialty Start Date End Date Jonathan Velásquez MD PCP - General 11/10/05 01/21/11 documented as of this encounter
--- OUTSIDE RECORDS SUMMARY | 2022-09-04 16:47 | XMS_ITS | Encounter Summary ---
:1960 Author Organization [place] Address [address] [facility] [place] [address] Care Team Providers Name Role Phone Jonathan Velásquez MD Primary Care Provider Encounter Details Date Type Department Care Team Description 05/25/2007 Results Only [facility], Hiren gómez MD [facility] Results [facility] [address] [facility] [address] [place], [place] [address] (Wo rk) Social History Tobacco Use Types [...] do you attend anabaptist or Not asked latter day services? Do [...] Procedure Name Priority Date/Time Associated Diagnosis Comme [facility] Routine 05/25/2007 11:46 AM Results for this [...] on filedocumented in this encounter Care Teams Small Business Sales Representative Relationship Specialty Start Date End Date Jonathan Velásquez MD PCP - General 11/10/05 01/21/11 documented as of this encounter
--- OUTSIDE RECORDS SUMMARY | 2022-09-04 16:47 | XMS_ITS | Encounter Summary ---
:1960 Author Organization [place] Address [address] [place] [address]. [place] [address] Care Team Providers Name Role Phone Unavailable Primary Care Provider Unavailable Encounter Details Date Type Department Care Team Description 09/04/2005 Therapy Visit [place] Cyndi Crews iamCERVICA LGIA (Primary Athletic Medicine - PT Dx) Britta Chaudhry [address] [facility] [address] [facility] [phone] [place] RI[place] [phone] (Work) [phone] Social History Tobacco Use Types Packs/Day Years [...] do you attend presybeterian or Not asked yarsani services? Do you [...] today. Please refer to the discharge evaluation. ESS ENGINEERING INTERN documented in this encounter Plan of Treatment Not on filedocumented as of this encounter Procedures Procedure Name Priority Date/Time Associated Diagnosis Comme nts [facility] THERAPEUTIC Routine 09/04/2005 1:13 PM PROCESS ENGINEERING INTERN iamCERVICALGIA EXERCISES [facility] MECHANICAL TRACTION Routine 09/04/2005 1:13 PM PROCESS ENGINEERING INTERN iamCERV ICALGIA THERAPY [facility] HOT OR COLD PACKS Routine 09/04/2005 1:13 PM PROCESS ENGINEERING INTERN iamCERVIC [place] THERAPY documented in this encounter Visit Diagnoses Diagnosis iamCERVICALGIA - Primary Cervicalgia documented in this encounter
--- OUTSIDE RECORDS SUMMARY | 2022-09-04 16:47 | XMS_ITS | Encounter Summary ---
:1960 Author Organization [place] Address [address] [facility] [address] Care Team Providers Name Role Phone Jonathan Velásquez MD Primary Care Provider Teresita Garcia MD Primary Care Provider Teresita Garcia MD Unavailable Teresita Garcia MD Unavailable Dolores Caputo DINKEY ENGINE FIRER Unavailable Letha Vasquez MA Unavailable Audrey Hickman MD Unavailable [phone] Encounter Details Date Type Department Care Team Description 02/28/2007 [facility] Jonathan Velásquez Abbot t [facility] Britta Chaudhry MD [facility] 0 [facility] XXX RETIRED X XX Neurology [address] [place] [address] [place] [address] NABIL ZHOU [phone] (Wo rk) Social History Tobacco Use Types [...] do you attend buddhism or Not asked confucianism services? Do you belong to any clubs or Not asked organizations such as buddhism groups, unions, Crossborders or athletic groups, or school groups? How [...] P - Primary documented in this encounter Additional Health Concerns Infection Onset Date Last Indicated Resolved Time Rule Out C-difficile 09/01/2022 09/01/2022 documented as of this encounter Care Teams Supervisor Partial Denture Department Relationship Specialty Start Date End Date Jonathan Velásquez MD PCP - General 11/10/05 01/21/11 Teresita Garcia MD PCP - General Family Practice 01/22/11 [address] [place] [address] Teresita Garcia MD PCP - Assigned PCP 11/16/16 11/30/18 [address] [place] [address] Teresita Garcia MD Assigned PCP 11/16/16 12/28/21 [address] [place] [address] Dolores Caputo, DINKEY ENGINE FIRER Lead Corporate Travel Coordinator Primary Care - CC 06/27/20 09/03/20 Letha Vasquez, Community Health Worker 07/05/20 09/03/20 MA Audrey Hickman Assigned PCP 12/29/21 MD Bernie [address] [place] [address] documented as of this encounter
--- OUTSIDE RECORDS SUMMARY | 2022-09-04 16:47 | XMS_ITS | Encounter Summary ---
:1960 Author Organization [place] Address [address] [facility] [place] [address] Care Team Providers Name Role Phone Jonathan Velásquez MD Primary Care Provider Teresita Garcia MD Primary Care Provider Teresita Garcia MD Unavailable Teresita Garcia MD Unavailable Dolores Caputo PHOTOGRAPHIC EQUIPMENT TECHNICIAN Unavailable Letha Vasquez MA Unavailable Audrey Hickman MD Unavailable [phone] Encounter Details Date Type Department Care Team Description 02/27/2007 [facility] Jonathan Velásquez Abbot t [facility] Britta Chaudhry MD [address] XXX RETIRED X XX Drive [address] [place] [address] [place] [address] NABIL ZHOU [phone] (Wo rk) Social History Tobacco Use Types [...] do you attend moravian or Not asked cheondoism services? Do you [...] DEPT - Primary documented in this encounter Additional Health Concerns Infection Onset Date Last Indicated Resolved Time Rule Out C-difficile 09/01/2022 09/01/2022 documented as of this encounter Care Teams Airport Skilled Maintenance Supervisor Relationship Specialty Start Date End Date Jonathan Velásquez MD PCP - General 11/10/05 01/21/11 Teresita Garcia MD PCP - General Family Practice 01/22/11 [address] [place] [address] Teresita Garcia MD PCP - Assigned PCP 11/16/16 11/30/18 [address] [place] [address] Teresita Garcia MD Assigned PCP 11/16/16 12/28/21 [address] [place] [address] Dolores Caputo, PHOTOGRAPHIC EQUIPMENT TECHNICIAN Lead Lactation Coordinator Primary Care - CC 06/27/20 09/03/20 Letha Vasquez, Community Health Worker 07/05/20 09/03/20 MA Audrey Hickman Assigned PCP 12/29/21 MD Bernie [address] [place] [address] documented as of this encounter
--- OUTSIDE RECORDS SUMMARY | 2022-09-04 16:47 | XMS_ITS | Encounter Summary ---
:1960 Author Organization [place] Address [facility] [place] [address] Care Team Providers Name Role Phone Jonathan Velásquez MD Primary Care Provider Reason for Visit Reason Comments Patient Request STD testing Encounter Details Date Type Department Care Team Description 04/27/2006 Office Visit [facility] Jonathan Velásquez, MARIA ELENA HORNE FOR VENERAL Clinic Britta Chaudhry MD DIS (Primary Dx) [address] [facility] XXX RETIRED X XX Drive [address] [facility] [place] [address] NABIL ZHOU [phone] [address] Social History Tobacco Use Types Packs/Day [...] Body Mass Index 26.08 11/11/2005 12:30 PM PROPERTY DISPOSAL MANAGER documented in this encounter Progress Notes [...] Primary documented in this encounter Care Teams Product Safety Consultant Relationship Specialty Start Date End Date Jonathan Velásquez MD PCP - General 11/10/05 01/21/11 documented as of this encounter
--- OUTSIDE RECORDS SUMMARY | 2022-09-04 16:47 | XMS_ITS | Encounter Summary ---
:1960 Author Organization [place] Address [address] [place] [address]. [place] [address] Care Team Providers Name Role Phone Jonathan Velásquez MD Primary Care Provider Reason for Visit Reason Onset Date Comments Refill Request 06/26/2008 Nasonex 50 mcg Encounter Details Date Type Department Care Team Description 06/26/2008 Refill M [facility] Jonathan Velásquez MD Refill Request (Nasonex [facility] [place] XXX RETIRED XXX 50 mcg) [address] [place] [address] [address] [facility] [address] [place] [phone] (Wo rk) Social History Tobacco Use Types [...] do you attend alevism or Not asked hindu services? Do you [...] sites documented in this encounter Care Teams Personal Computer Network Analyst Relationship Specialty Start Date End Date Jonathan Velásquez MD PCP - General 11/10/05 01/21/11 documented as of this encounter
--- OUTSIDE RECORDS SUMMARY | 2022-09-04 16:47 | XMS_ITS | Encounter Summary ---
:1960 Author Organization [place] Address [facility] [place] [address] Care Team Providers Name Role Phone Jonathan Velásquez MD Primary Care Provider Reason for Visit Reason Onset Date Comments Erroneous encounter-disregard 09/04/2006 Encounter Details Date Type Department Care Team Description 09/04/2006 Telephone [facility] Jonathan Velásquez, [facility] Britta Chaudhry MD encounter-disregard [address]30 [facility] XXX RETIRED X XX [address] [facility] [place] [address] NABIL ZHOU [phone] (Wo rk) Social History Tobacco Use [...] do you attend samaritan or Not asked oriental orthodox services? Do [...] on filedocumented in this encounter Care Teams Tobacco Blender Relationship Specialty Start Date End Date Jonathan Velásquez MD PCP - General 11/10/05 01/21/11 documented as of this encounter
--- OUTSIDE RECORDS SUMMARY | 2022-09-04 16:47 | XMS_ITS | Encounter Summary ---
:1960 Author Organization [place] Address [facility] [place] [address] Care Team Providers Name Role Phone Unavailable Primary Care Provider Unavailable Encounter Details Date Type Department Care Team Description 08/25/2005 Therapy Visit [place] Cyndi Crews iamCERVICA LGIA (Primary Athletic Medicine - PT Dx) Britta Chaudhry [address] [place] [address] [facility] [phone] [place] [phone] (Work) [phone] Social History Tobacco Use Types Packs/Day Years [...] do you attend restoration or Not asked caodaism services? Do you [...] to the daily flowsheet for treatment today. LER CHEF OR COOK documented in this encounter Plan of Treatment Not on filedocumented as of this encounter Procedures Procedure Name Priority Date/Time Associated Diagnosis Comme nts Z[facility] THERAPEUTIC Routine 08/25/2005 3:36 PM BROILER CHEF OR COOK iamCERVICALGIA EXERCISES Z MECHANICAL TRACTION Routine 08/25/2005 3:36 PM BROILER CHEF OR COOK iamCERV ICALGIA THERAPY [facility] HOT OR COLD PACKS Routine 08/25/2005 3:36 PM BROILER CHEF OR COOK iamCERVIC [place] THERAPY documented in this encounter Visit Diagnoses Diagnosis iamCERVICALGIA - Primary Cervicalgia documented in this encounter
--- OUTSIDE RECORDS SUMMARY | 2022-09-04 16:47 | XMS_ITS | Encounter Summary ---
:1960 Author Organization [place] Address [address] [place] [address]. [place] [address] Care Team Providers Name Role Phone Jonathan Velásquez MD Primary Care Provider Reason for Visit Reason Onset Date Comments Refill Request 08/13/2010 selenium sulfide sha mpoo Encounter Details Date Type Department Care Team Description 08/13/2010 Refill M [facility] Jonathan Velásquez MD Refill Request (selenium [facility] [place] XXX RETIRED XXX sulfide shampoo) [address] [place] [address] George Chaudhry [place] [phone] (Wo rk) Social History Tobacco Use Types [...] do you attend orthodox or Not asked church services? Do you [...] scheduled at this time. Mel Fish CMA STANT RESTAURANT GENERAL MANAGER documented in this encounter Plan of Treatment Not on filedocumented as of this encounter Visit Diagnoses Diagnosis Other specified disease of hair and hair follicles documented in this encounter Care Teams Licensed Practical Nurse Relationship Specialty Start Date End Date Jonathan Velásquez MD PCP - General 11/10/05 01/21/11 documented as of this encounter
--- OUTSIDE RECORDS SUMMARY | 2022-09-04 16:47 | XMS_ITS | Encounter Summary ---
:1960 Author Organization [place] Address [address] [facility] [place] [address] Care Team Providers Name Role Phone Jonathan Velásquez MD Primary Care Provider Reason for Visit Reason Comments Back Pain Encounter Details Date Type Department Care Team Description 08/30/2008 Office Visit [facility] Brad Hernandez ack Pain (Primary Dx); Clinic Marion Salbador Pena MD URI (Upper Respiratory Infection) [facility], [address] [place], [place] [address] [address] [facility] [phone] [place], [place] [address] (Wo rk) Social History [...] do you attend rastafarian or Not asked restorationist services? Do you [...] Comments Blood Pressure 92/60 08/30/2008 10:30 AM ACCOUNT SUPPORT REP Pulse 70 08/30/2008 10:30 AM ACCOUNT SUPPORT REP Temperature 35.3 ??C (95.6 ??F) 08/30/2008 10:30 AM ACCOUNT SUPPORT REP Respiratory Rate - - Oxygen Saturation 98% 08/30/2008 10:30 AM ACCOUNT SUPPORT REP Inhaled Oxygen Concentration - - Weight 75.3 kg (166 lb) 08/30/2008 10:30 AM ACCOUNT SUPPORT REP Height 170.2 cm (5' 7) 08/30/2008 10:30 AM ACCOUNT SUPPORT REP Body Mass Index 26 08/30/2008 10:30 AM ACCOUNT SUPPORT REP documented in this encounter Progress Notes Brad [...] Date ??? Multiple Sclerosis sees neurology at [facility] ??? Juvenile Osteochondrosis of Hip [...] symptomatic and supportive care. Brad Hernandez MD [facility] UNT SUPPORT REP documented in this encounter Nursing Notes 08/30/2008 [...] Back pain Re sults for this FRONT/LAT ACCOUNT SUPPORT REP procedure are i n the results section. HCL UA MICRO IF Routine 08/30/2008 10:55 AM Back Pain Resul ts for this POSITIVE ACCOUNT SUPPORT REP procedure are i n the results section. CL AFF CBC WITH Routine 08/30/2008 10:52 AM Back Pain Resul ts for this PLATELETS ACCOUNT SUPPORT REP procedure are i n the results section. documented in this encounter Results CHEST X-RAY 2 VW (09/08/2008 9:17 AM ACCOUNT SUPPORT REP) Anatomical Region Laterality Modality Other Specimen (Source) Anatomical Collection Method Collection Time Re ceived Time Location / / Volume Laterality 09/08/2008 9:17 AM ACCOUNT SUPPORT REP Impressions 09/11/2008 7:40 AM ACCOUNT SUPPORT REP CHEST TWO VIEW* Sep 08, 2008 9:17:00 AM HISTORY: Pain. FINDINGS: Negative. Brad Hernandez MD GENERAL IMAGING UA MICRO IF POSITIVE (08/30/2008 10:55 AM ACCOUNT SUPPORT REP) Patholo gist Method Time Signature Color Urine Yellow [facility] Appearance Urine Clear [facility] Glucose Urine Negative NEG mg/dL [facility] Bilirubin Urine Negative NEG [facility] Ketones Urine Negative NEG mg/dL [facility] Specific [place] 1.020 1.003 - [place] Urine 1.035 [facility] Blood Urine Negative NEG [facility] pH Urine 5.5 5.0 - 7.0 [place] pH [facility] Protein Albumin Negative NEG mg/dL [place] Urine [facility] Urobilinogen 0.2 0.2 - 1.0 [place] Urine EU/dL [facility] Nitrite Urine Negative NEG [facility] Leukocyte Negative NEG [place] Esterase Urine [facility] Source Midstream [place] Urine [facility] Specimen Anatomical Collection Method Collection Time Receive d Time (Source) Location / / Volume Laterality 08/30/2008 10:55 08/30/2008 AM ACCOUNT SUPPORT REP 10:57 AM ACCOUNT SUPPORT REP Brad Hernandez MD LABORATORY Performing Organization Address City/State/ZIP Code Phon e Number [facility] [id number] [place] [address] [facility] CBC WITH PLATELETS (08/30/2008 10:52 AM ACCOUNT SUPPORT REP) athologist Signature WBC 6.7 4.0 - 11.0 [place] 10e9/L [facility] RBC Count 4.75 4.4 - 5.9 [place] 10e12/L [facility] Hemoglobin 14.9 13.3 - [place] 17.7 g/dL [facility] Hematocrit 41.0 40.0 - [place] 53.0 % [facility] MCV 86 78 - 100 [facility] MCH 31.4 26.5 - [place] 33.0 pg [facility] MCHC 36.3 31.5 - [place] 36.5 g/dL [facility] RDW 12.3 10.0 - [place] 15.0 % [facility] Platelet Count 157 150 - 450 [place] 10e9/L [facility] Specimen Anatomical Collection Method Collection Time Receive d Time (Source) Location / / Volume Laterality 08/30/2008 10:52 08/30/2008 AM ACCOUNT SUPPORT REP 10:54 AM ACCOUNT SUPPORT REP Brad Hernandez MD LABORATORY Performing Organization Address City/State/ZIP Code Phon e Number [facility] [id number] [place] [address] [facility] documented in this encounter Visit Diagnoses Diagnosis Back pain - Primary Backache, unspecified URI (upper respiratory infection) Acute upper respiratory infections of un specified site documented in this encounter Care Teams Professional Programmer Analyst Relationship Specialty Start Date End Date Jonathan Velásquez MD PCP - General 11/10/05 01/21/11 documented as of this encounter
--- OUTSIDE RECORDS SUMMARY | 2022-09-04 16:47 | XMS_ITS | Encounter Summary ---
:1960 Author Organization [place] Address [facility] [place] [address] Care Team Providers Name Role Phone Jonathan Velásquez MD Primary Care Provider Reason for Visit Reason Comments Urgent Care Nausea x3 days, loss of appetite Breathing Problem lungs hurt, muscles in forea tesha and legs spastic, has MS Encounter Details Date Type Department Care Team Description 07/26/2008 Office Visit [facility] Wilfrido Henley, Rachana lized Weakness; Urgent Care [place] PA-C Spasticity [address] [place] [phone] Social History Tobacco Use Types [...] do you attend latter-day or Not asked sabianist services? Do you [...] ER if symptoms worsen See orders in [facility] documented in this encounter Nursing Notes 07/26/2008 [...] athologist Signature Sodium 139 133 - 144 [place] mmol/L [facility] Potassium 3.8 3.4 - 5.3 [place] mmol/L [facility] Chloride 104 94 - 109 [place] mmol/L [facility] Carbon Dioxide 22 20 - 32 [place] mmol/L [facility] Anion Gap 12 6 - 17 [place] mmol/L [facility] Glucose 118 (H) 60 - 99 [facility] mg/dL [facility] Urea Nitrogen 15 5 - 24 [place] mg/dL [facility] Creatinine 1.12 0.66 - [place] 1.25 mg/dL [facility] Comment: New IDMS-traceable calibration beginning 01/27/08 GFR Estimate 71 >60 mL/min/1.7m2 [place] [facility] GFR Estimate If Black 85 >60 mL/min/1.7m2 [place] [facility] Calcium 9.3 8.5 - 10.4 mg/dL [place] [facility] Bilirubin Total 0.6 0.2 - 1.3 mg/dL [facility] Albumin 4.8 3.9 - 5.1 g/dL [facility] Comment: Reference range changed on 05/30. Protein Total 7.7 6.8 - 8.8 g/dL [facility] Comment: As of 08, reference range reflects plasma specimen type. Alkaline Phosphatase 55 40 - 150 U/L [facility] ALT 40 0 - 70 U/L [facility] [place] [facility] AST 31 0 - 55 U/L [facility] [place] [facility] Specimen Anatomical Collection Method Collection Time Receive d Time (Source) Location / / Volume Laterality 07/26/2008 7:54 PM 8 7:59 CDT PM CDT Wilfrido Henley PA-C LABORATORY Performing Organization Address City/State/ZIP Code Phon e Number [facility] [address] [place] [address] [facility] CBC WITH PLATELETS (07/26/2008 7:54 PM CDT) P athologist Signature WBC 7.3 4.0 - 11.0 [place] 10e9/L [facility] RBC Count 5.00 4.4 - 5.9 [place] 10e12/L [facility] Hemoglobin 15.1 13.3 - [place] 17.7 g/dL [facility] Hematocrit 43.2 40.0 - [place] 53.0 % [facility] MCV 86 78 - 100 [facility] MCH 30.2 26.5 - [facility] 33.0 pg [facility] MCHC 35.0 31.5 - [place] 36.5 g/dL [facility] RDW 11.0 10.0 - [place] 15.0 % [facility] Platelet Count 185 150 - 450 [place] 10e9/L [facility] Specimen Anatomical Collection Method Collection Time Receive d Time (Source) Location / / Volume Laterality 07/26/2008 7:54 PM 8 7:59 CDT PM CDT Wilfrido Henley PA-C LABORATORY Performing Organization Address City/[facility]/ZIP Code Phon e Number [facility] [address], [place] [address] [facility] (ABNORMAL) UA MICRO IF POSITIVE (07/26/2008 7:53 PM CDT) [facility] Method Time Signature Color Urine Yellow [facility] Appearance Urine Clear [facility] Glucose Urine Negative NEG mg/dL [facility] Bilirubin Urine Negative NEG [facility] Ketones Urine Negative NEG mg/dL [facility] Specific [place] <=1.005 1.003 - [place] Urine 1.035 [facility] Blood Urine Negative NEG [facility] pH Urine 7.5 (H) 5.0 - 7.0 [place] pH [facility] Protein Albumin Negative NEG mg/dL [place] Urine [facility] Urobilinogen 0.2 0.2 - 1.0 [place] Urine EU/dL [facility] Nitrite Urine Negative NEG [facility] Leukocyte Negative NEG [place] Esterase Urine [facility] Source Midstream [place] Urine [facility] Specimen Anatomical Collection Method Collection Time Receive d Time (Source) Location / / Volume Laterality 07/26/2008 7:53 PM 8 7:58 CDT PM CDT Wilfrido Henley PA-C LABORATORY Performing Organization Address City/[facility]/ZIP Code Phon e Number [facility] [address] [place] [address] [facility] CHEST X-RAY 2 VW (07/26/2008) Anatomical Region Laterality Modality Other Impressions 07/26/2008 REPORT OF OUTSIDE FILMS FROM [facility] DEJUAN RODRIGUEZ ?: 62 CHEST TWO VIEWS: 07/26/08 FINDINGS: Negative. ??No active infiltra josr. Dejuan Simeon M.D./jenny D/T: ??07/27/08 Electronically filed by Kirstie Magallon ??07/27/2008 ??10:52 AM Wilfrido Henley PA-C GENERAL IMAGING documented in this encounter Visit Diagnoses Diagnosis Generalized weakness Other malaise and fatigue Spasticity Abnormal involuntary movements documented in this encounter Care Teams Medical Records Tech Relationship Specialty Start Date End Date Jonathan Velásquez MD PCP - General 11/10/05 01/21/11 documented as of this encounter
--- OUTSIDE RECORDS SUMMARY | 2022-09-04 16:47 | XMS_ITS | Encounter Summary ---
:1960 Author Organization [place] Address [address] [facility] [place] [address] Care Team Providers Name Role Phone Jonathan Velásquez MD Primary Care Provider Encounter Details Date Type Department Care Team Description 06/01/2007 Historic Results INTERFACED REPORT Hiren Bahena MD [facility] [address] [place], [place] [phone] (Wo rk) Social History Tobacco Use Types [...] do you attend baptist or Not asked alevism services? Do you [...] on filedocumented in this encounter Care Teams Steam Conditioner Filling Relationship Specialty Start Date End Date Jonathan Velásquez MD PCP - General 11/10/05 01/21/11 documented as of this encounter
--- OUTSIDE RECORDS SUMMARY | 2022-09-04 16:47 | XMS_ITS | Encounter Summary ---
:1960 Author Organization [place] Address [facility] [place] [address] Care Team Providers Name Role Phone Jonathan Velásquez MD Primary Care Provider Reason for Visit Reason Comments Cough dry cough and congestion, st uffed up Encounter Details Date Type Department Care Team Description 08/29/2006 Office Visit [facility] Jonathan Velásquez, ACUTE URI [facility]ULT [facility] Britta Chaudhry MD NEC (Primary Dx) [address] [facility] XXX RETIRED X [address] [place] [address] [place] [phone] Social History Tobacco Use Types Packs/Day [...] do you attend cheondoism or Not asked advent services? Do you [...] Comments Blood Pressure 116/74 08/29/2006 10:00 AM ASSET CARD CLERK Pulse 99 08/29/2006 10:00 AM ASSET CARD CLERK Temperature 36.3 ??C (97.4 ??F) 08/29/2006 10:00 AM ASSET CARD CLERK Respiratory Rate - - Oxygen Saturation - - Inhaled Oxygen Concentration - - Weight 78.9 kg (174 lb) 08/29/2006 10:00 AM ASSET CARD CLERK Height 162.6 cm (5' 4) 08/29/2006 10:00 AM ASSET CARD CLERK Body Mass Index 29.87 08/29/2006 10:00 AM ASSET CARD CLERK documented in this encounter Progress Notes Jonathan [...] MCG/ACT NA SUSP Continue Mucinex. Follow-up p.r.n. T CARD CLERK documented in this encounter Nursing Notes 08/29/2006 [...] Primary documented in this encounter Care Teams Radiology Practitioner Assistant Relationship Specialty Start Date End Date Jonathan Velásquez MD PCP - General 11/10/05 01/21/11 documented as of this encounter
--- OUTSIDE RECORDS SUMMARY | 2022-09-04 16:47 | XMS_ITS | Encounter Summary ---
:1960 Author Organization [place] Address [address] [facility] [place] [address] Care Team Providers Name Role Phone Jonathan Velásquez MD Primary Care Provider Reason for Visit Reason Comments Sinus Problem Encounter Details Date Type Department Care Team Description 08/07/2006 Office Visit [facility] Sudhir Vazquez, NOSE AN OMALY KATHARINE Vee MD (Primary Dx) [address] [place] [address] [place] [phone] [place] [phone] Social History Tobacco Use Types Packs/Day [...] Comments Blood Pressure 108/60 08/07/2006 1:30 PM MANAGER NON PROFIT Pulse - - Temperature 36.3 ??C (97.3 ??F) 08/07/2006 1:30 PM MANAGER NON PROFIT Respiratory Rate - - Oxygen Saturation - - Inhaled Oxygen Concentration - - Weight 77.9 kg (171 lb 12.8 oz) 08/07/2006 1:30 PM MANAGER NON PROFIT Height 167.6 cm (5' 6) 08/07/2006 1:30 PM MANAGER NON PROFIT Body Mass Index 27.73 08/07/2006 1:30 PM MANAGER NON PROFIT documented in this encounter Progress Notes Sudhir [...] pt. The potentialside effects with Afrin use termite exterminator helper. Recommended pt. To use it only for extreme discomfort at bedtime. And limited its use to less than 3 days. Follow up with PMD of symptoms worse. GER NON PROFIT documented in this encounter Nursing Notes 08/07/2006 [...] ry documented in this encounter Care Teams Senior Mechanical Technician Relationship Specialty Start Date End Date Jonathan Velásquez MD PCP - General 11/10/05 01/21/11 documented as of this encounter
--- OUTSIDE RECORDS SUMMARY | 2022-09-04 16:47 | XMS_ITS | Encounter Summary ---
:1960 Author Organization [place] Address [address] [place] [address] Care Team Providers Name Role Phone Jonathan Velásquez MD Primary Care Provider Encounter Details Date Type Department Care Team Description 04/28/2006 Orders Only [facility] SCR EENING FOR VENERAL DIS [facility] [address] [place] [address] Social History Tobacco Use Types [...] do you attend denominational or Not asked baptist services? Do you [...] logist Time Signature HIV 1&[address] [facility] Antibody [facility] Specimen Anatomical Collection Method Collection Time Receive d Time (Source) Location / / Volume Laterality 04/28/2006 2:22 PM 6 2:23 CDT PM CDT Jonathan Velásquez MD LABORATORY Performing Organization Address City/State/ZIP Code Phon e Number [facility] [address] [place], [place] [id number] [place] [address] LABS documented in this encounter Visit Diagnoses Diagnosis Screening examination for venereal disea se documented in this encounter Care Teams Protozoologist Relationship Specialty Start Date End Date Jonathan Velásquez MD PCP - General 11/10/05 01/21/11 documented as of this encounter
--- OUTSIDE RECORDS SUMMARY | 2022-09-04 16:47 | XMS_ITS | Encounter Summary ---
:1960 Author Organization [place] Address [address] [place] [address]. [place] [address] Care Team Providers Name Role Phone Jonathan Velásquez MD Primary Care Provider Reason for Visit Reason Comments Hair/Scalp Problem itchy scalp, has had for yea rs Encounter Details Date Type Department Care Team Description 03/06/2008 Office Visit [facility] Jonathan Velásquez, Other Specified Clinic Britta Chaudhry MD Disease of Hair and [address] [place] [address] XXX RETIRED X XX Hair [address] [place] [address] (Primary Dx) [place] [address] [address] [place] [phone] Social History Tobacco Use Types Packs/Day [...] do you attend scientologist or Not asked hindu services? Do you [...] Primary documented in this encounter Care Teams Jackhammer Splitter Operator Relationship Specialty Start Date End Date Jonathan Velásquez MD PCP - General 11/10/05 01/21/11 documented as of this encounter
--- OUTSIDE RECORDS SUMMARY | 2022-09-04 16:47 | XMS_ITS | Encounter Summary ---
:1960 Author Organization [place] Address [address] [facility] [place] [address] Care Team Providers Name Role Phone Jonathan Velásquez MD Primary Care Provider Encounter Details Date Type Department Care Team Description 12/06/2007 Historic Results INTERFACED REPORT Chris Mcmahan MD [facility] [address] [place] [address] (Wo rk) Social History Tobacco [...] do you attend episcopalian or Not asked restorationist services? Do you [...] differential and platelet (12/06/2007 3:50 PM CDT) [facility] gist Method Time Signature MCV 89 [...] LAB - BLOOD ORDERABLES Performing Organization Address City/State/[facility] Code Phon e Number [facility] Platelet count (12/06/2007 3:50 PM CDT) P athologist Signature Platelet Count 197 150 - 450 [facility] 10e9/L Specimen Anatomical Collection Method Collection Time Receive d Time (Source) Location / / Volume Laterality 12/06/2007 3:50 PM 8 4:07 CDT PM CDT Chris Mcmahan MD LAB - BLOOD ORDERABLES Performing Organization Address City/State/[facility] Code Phon e Number [facility] documented in this encounter Visit Diagnoses Not on filedocumented in this encounter Care Teams Motion Study Analyst Relationship Specialty Start Date End Date Jonathan Velásquez MD PCP - General 11/10/05 01/21/11 documented as of this encounter
--- OUTSIDE RECORDS SUMMARY | 2022-09-04 16:47 | XMS_ITS | Encounter Summary ---
:1960 Author Organization [place] Address [address] [place] [address]. [place] [address] Care Team Providers Name Role Phone Jonathan Velásquez MD Primary Care Provider Reason for Visit Reason Comments RECHECK From 09/16/2006 Pneumonia Encounter Details Date Type Department Care Team Description 11/11/2005 Office Visit [facility] Jonathan Velásquez, OTHER MALAISE AND FATIGUE (Primary Dx); Clinic Britta Chaudhry MD DEPRESSIVE DISORDER NEC; [address] [place] [address] XXX RETIRED X XX MULTIPLE SCLEROSIS (H); Drive [address] [place] [address] DRUG [place]BU[place] [id number] NABIL ZHOU [phone] Social History Tobacco Use Types Packs/Day [...] do you attend sikh or Not asked jewish services? Do you [...] Comments Blood Pressure 115/76 11/11/2005 12:30 PM HAIR BALER Pulse 100 11/11/2005 12:30 PM HAIR BALER Temperature 36.3 ??C (97.4 ??F) 11/11/2005 12:30 PM HAIR BALER Respiratory Rate 16 11/11/2005 12:30 PM HAIR BALER Oxygen Saturation - - Inhaled Oxygen Concentration - - Weight 72.6 kg (160 lb) 11/11/2005 12:30 PM HAIR BALER Height 167.6 cm (5' 6) 11/11/2005 12:30 PM HAIR BALER Body Mass Index 25.82 11/11/2005 12:30 PM HAIR BALER documented in this encounter Progress Notes Jonathan [...] chem dep. Counseling and detox. 30 min BALER documented in this encounter Nursing Notes 11/11/2005 12:30 PM CST >> MARGARITA RODAS 11/11/2005 12:28 pm Patient presents with: RECHECK - From 09/16/2006 Pneumonia BP 115/76 Pulse 100 Temp (Src) 97.4 (Oral) Resp 16 Ht 5' 6 (1.68m) Wt 160 lbs (72.6kg) BP completed using cuff size: large. P.Bridgette ENVIRONMENT COORDINATOR documented in this encounter Plan of Treatment Not on filedocumented as of this encounter Procedures Procedure Name Priority Date/Time Associated Diagnosis Comme nts CL AFF CBC WITH Routine 11/11/2005 12:58 PM Other Malaise And Results for this PLATELETS, DIFF HAIR BALER Fatigue procedure ar e in the results section. HCL TSH W/FREE T4 Routine 11/11/2005 12:58 PM Other Malaise An d Results for this REFLEX HAIR BALER Fatigue procedure are i n the results section. documented in this encounter Results TSH W/FREE T4 REFLEX (11/11/2005 12:58 PM HAIR BALER) athologist Signature TSH 0.99 0.4 - 5.0 [facility] mU/L CLINIC LAB Specimen Anatomical Collection Method Collection Time Receive d Time (Source) Location / / Volume Laterality 11/11/2005 12:58 11/11/2005 PM HAIR BALER 12:59 PM HAIR BALER Jonathan Velásquez MD LABORATORY Performing Organization Address City/State/ZIP Code Phon e Number [facility] [address] [place] [address] [facility] LAB (ABNORMAL) CBC WITH PLATELETS, DIFF (11/11/2005 12:58 PM HAIR BALER) [facility] gist Method Time Signature WBC 9.4 4.0 - [place] 11.0 [facility] 10e9/L CLINIC LAB RBC Count 4.78 4.4 - 5.9 [place] 10e12/L [facility] LAB Hemoglobin 14.4 13.3 - [place] 17.7 g/dL [facility] LAB Hematocrit 44.4 40.0 - [place] 53.0 % [facility] LAB MCV 93 78 - 100 [place] fl [facility] MCH 30.1 26.5 - [facility] 33.0 pg [facility] LAB MCHC 32.4 32.0 - [place] 36.0 g/dL [facility] LAB RDW 13.5 10.0 - [place] 15.0 % [facility] LAB Platelet Count 211 150 - 450 [place] 10e9/L [facility] LAB Diff Method Automated [facility] LAB % Lymphocytes 13 (L) 20 - 48 % [facility] LAB % Monocytes 5 0 - 12 % [facility] LAB % Granulocytes 82 (H) 40 - 75 % [facility] LAB Absolute 1.2 0.8 - 5.3 [place] Lymphocytes 10e9/L [facility] LAB Absolute 0.5 0.0 - 1.3 [place] Monocytes 10e9/L [facility] LAB Absolute 7.7 1.6 - 8.3 [place] Granulocytes 10e9/L [facility] Specimen Anatomical Collection Method Collection Time Receive d Time (Source) Location / / Volume Laterality 11/11/2005 12:58 11/11/2005 PM HAIR BALER 12:59 PM HAIR BALER Jonathan Velásquez MD LABORATORY Performing Organization Address City/State/ZIP Code Phon e Number [facility] [address] [place] [address] [facility] LAB documented in this encounter Visit Diagnoses Diagnosis Other malaise and fatigue - Primary Depressive disorder, not elsewhere class ified Multiple sclerosis (H) Multiple sclerosis Other, mixed, or unspecified nondependen t drug abuse, unspecified documented in this encounter Care Teams Tenter Frame Operator Relationship Specialty Start Date End Date Jonathan Velásquez MD PCP - General 11/10/05 01/21/11 documented as of this encounter
--- OUTSIDE RECORDS SUMMARY | 2022-09-04 16:47 | XMS_ITS | Encounter Summary ---
:1960 Author Organization [place] Address [address] [place] [address]. [place] [address] Care Team Providers Name Role Phone Jonathan Velásquez MD Primary Care Provider Reason for Visit Reason Onset Date Comments Refill Request 08/07/2009 selenium Encounter Details Date Type Department Care Team Description 08/07/2009 Refill [facility] Jonathan Velásquez MD Refill Request Clinic George Stapleton XXX RETIRED XXX (selenium) [address] [place] [address] George Stapleton[place] [phone] (Wo rk) Social History Tobacco Use Types [...] do you attend bahai or Not asked jew services? Do you [...] to refill per so. Adina Jimenez RN ET CAR INSPECTOR Telephone Encounter - Marnie Quesada - 08/07/2009 1:39 PM CST Last office visit: 08/30/2008 Future appointment: none Last refill: 12/11/2008 Marnie Quesada MA ET CAR INSPECTOR documented in this encounter Plan of Treatment Not on filedocumented as of this encounter Visit Diagnoses Diagnosis Other specified disease of hair and hair follicles - Primary documented in this encounter Care Teams Composition Teacher Relationship Specialty Start Date End Date Jonathan Velásquez MD PCP - General 11/10/05 01/21/11 documented as of this encounter
--- OUTSIDE RECORDS SUMMARY | 2022-09-04 16:47 | XMS_ITS | Encounter Summary ---
:1960 Author Organization [place] Address [facility] [place] [address] Care Team Providers Name Role Phone Unavailable Primary Care Provider Unavailable Reason for Visit Reason Comments Cough x 2 weeks Encounter Details Date Type Department Care Team Description 09/16/2005 Office Visit [facility] Jonathan Velásquez, PNEUM ONIA, ORGANISM NOS (Primary Dx); Clinic Britta Chaudhry MD DEPRESSIVE DISORDER NEC [address] [facility] XXX RETIRED X XX Drive 0 [facility] [place] [phone] NABIL ZHOU [phone] Social History Tobacco Use Types Packs/Day [...] do you attend hinduism or Not asked yazidism services? Do you [...] Comments Blood Pressure 117/71 09/16/2005 3:30 PM TRANSPORTATION SPECIALIST Pulse 103 09/16/2005 3:30 PM TRANSPORTATION SPECIALIST Temperature 36.7 ??C (98.1 ??F) 09/16/2005 3:30 PM TRANSPORTATION SPECIALIST Respiratory Rate - - Oxygen Saturation - - Inhaled Oxygen Concentration - - Weight 73.9 kg (163 lb) 09/16/2005 3:30 PM TRANSPORTATION SPECIALIST Height 167.6 cm (5' 6) 09/16/2005 3:30 PM TRANSPORTATION SPECIALIST Body Mass Index 26.31 09/16/2005 3:30 PM TRANSPORTATION SPECIALIST documented in this encounter Progress Notes Jonathan [...] therapist suggested that we start him on [place] Pro. I've explained to him that drugs [...] discussing his depressive sx and medication options. SPORTATION SPECIALIST documented in this encounter Nursing Notes 09/16/2005 3:30 PM CST >> MARGARITA RODAS 09/16/2005 3:26 pm Patient presents with: Cough - x 2 weeks BP 117/71 Pulse 103 Temp (Src) 98.1 (Oral) Ht 5' 6 (1.68m) Wt 163 lbs (73.9kg) BP completed using cuff size: large. P.[place] [employer] DRIVER documented in this encounter Plan of [...] PM . REPORT OF OUTSIDE FILMS FROM [facility] DEJUAN RODRIGUEZ : ??62 PA AND LEFT LATERAL CHEST: ??09/16/05 Normal in two views. Lyndon Leyva M.D./[facility] D & T: ??09/19/05 Electronically filed by Kirstie Magallon ??09/23/2005 ??9:48 AM Jonathan Velásquez MD GENERAL IMAGING documented in this encounter Visit Diagnoses Diagnosis Pneumonia, organism unspecified(486) - P rimary Pneumonia, organism unspecified Depressive disorder, not elsewhere class ified documented in this encounter
--- OUTSIDE RECORDS SUMMARY | 2022-09-04 16:47 | XMS_ITS | Encounter Summary ---
:1960 Author Organization [place] Address [facility] [place] [address] Care Team Providers Name Role Phone Unavailable Primary Care Provider Unavailable Encounter Details Date Type Department Care Team Description 08/28/2005 Therapy Visit [place] Cyndi Crews iamCERVICA LGIA (Primary Athletic Medicine - PT Dx) Britta Chaudhry [address] [place] [address] [facility] [phone] N[place] RIOS [phone] (Work) [phone] Social History Tobacco Use Types Packs/Day Years [...] you attend roman catholic or Not asked yazidism services? Do you [...] to the daily flowsheet for treatment today. ERTY VALUER documented in this encounter Plan of Treatment Not on filedocumented as of this encounter Procedures Procedure Name Priority Date/Time Associated Diagnosis Comme nts ZC THERAPEUTIC Routine 08/28/2005 1:51 PM PROPERTY VALUER iamCERVICALGIA EXERCISES Z MECHANICAL TRACTION Routine 08/28/2005 1:51 PM PROPERTY VALUER iamCERV ICALGIA THERAPY [facility] HOT OR COLD PACKS Routine 08/28/2005 1:51 PM PROPERTY VALUER iamCERVIC ALGIA THERAPY documented in this encounter Visit Diagnoses Diagnosis iamCERVICALGIA - Primary Cervicalgia documented in this encounter
--- OUTSIDE RECORDS SUMMARY | 2022-09-04 16:48 | XMS_ITS | Encounter Summary ---
:1960 Author Organization [place] Address [facility] [place] [address] Care Team Providers Name Role Phone Unavailable Primary Care Provider Unavailable Encounter Details Date Type Department Care Team Description 08/11/2005 Therapy Visit [place] Cyndi Crews iamCERVICA LGIA (Primary Athletic Medicine - PT Dx) Britta Chaudhry [address] [place] [address] [address] [facility] [phone] N[place] RIOS [phone] (Work) [phone] Social History Tobacco Use Types Packs/Day Years [...] to the daily flowsheet for treatment today. INE SHOP SUPERVISOR documented in this encounter Plan of Treatment Not on filedocumented as of this encounter Procedures Procedure Name Priority Date/Time Associated Diagnosis Comme nts [facility] THERAPEUTIC Routine 08/11/2005 4:55 PM MACHINE SHOP SUPERVISOR iamCERVICALGIA ACTIVITIES [facility] MECHANICAL TRACTION Routine 08/11/2005 4:55 PM MACHINE SHOP SUPERVISOR iamCERV ICALGIA THERAPY documented in this encounter Visit Diagnoses Diagnosis iamCERVICALGIA - Primary Cervicalgia documented in this encounter
--- OUTSIDE RECORDS SUMMARY | 2022-09-04 16:48 | XMS_ITS | Encounter Summary ---
:1960 Author Organization [place] Address [facility] [place] [address] Care Team Providers Name Role Phone Unavailable Primary Care Provider Unavailable Encounter Details Date Type Department Care Team Description 08/16/2005 Therapy Visit [place] Cyndi Crews iamCERVICA LGIA (Primary Athletic Medicine - PT Dx) Britta Chaudhry [address] [place] [address] [address] [facility] [phone] N[place] RI[place] [phone] (Work) [phone] Social History Tobacco Use Types Packs/Day Years [...] do you attend restorationism or Not asked bahai services? Do you [...] to the daily flowsheet for treatment today. TESTER documented in this encounter Plan of Treatment Not on filedocumented as of this encounter Procedures Procedure Name Priority Date/Time Associated Diagnosis Comme nts [facility] THERAPEUTIC Routine 08/16/2005 9:14 AM COIL TESTER iamCERVICALGIA EXERCISES Z MECHANICAL TRACTION Routine 08/16/2005 9:14 AM COIL TESTER iamCERV ICALGIA THERAPY [facility] HOT OR COLD PACKS Routine 08/16/2005 9:14 AM COIL TESTER iamCERVIC ALGIA THERAPY documented in this encounter Visit Diagnoses Diagnosis iamCERVICALGIA - Primary Cervicalgia documented in this encounter
--- OUTSIDE RECORDS SUMMARY | 2022-09-04 16:48 | XMS_ITS | Encounter Summary ---
:1960 Author Organization [place] Address [facility] [place] [address] Care Team Providers Name Role Phone Unavailable Primary Care Provider Unavailable Encounter Details Date Type Department Care Team Description 08/14/2005 Therapy Visit [place] Cyndi Crews iamCERVICA LGIA (Primary Athletic Medicine - PT Dx) Britta Chaudhry [address] [place] [address] [place] [address] [facility] [phone] N[place] RIOS [phone] (Work) [phone] Social History Tobacco Use Types Packs/Day Years [...] do you attend congregational or Not asked latter-day services? Do you [...] to the daily flowsheet for treatment today. PONG TABLE ASSEMBLER documented in this encounter Plan of Treatment Not on filedocumented as of this encounter Procedures Procedure Name Priority Date/Time Associated Diagnosis Comme nts ZC THERAPEUTIC Routine 08/14/2005 6:21 PM PING PONG TABLE ASSEMBLER iamCERVICALGIA EXERCISES Z MECHANICAL TRACTION Routine 08/14/2005 6:21 PM PING PONG TABLE ASSEMBLER iamCERV ICALGIA THERAPY [facility] HOT OR COLD PACKS Routine 08/14/2005 6:21 PM PING PONG TABLE ASSEMBLER iamCERVIC [place] THERAPY documented in this encounter Visit Diagnoses Diagnosis iamCERVICALGIA - Primary Cervicalgia documented in this encounter
--- OUTSIDE RECORDS SUMMARY | 2022-09-04 16:48 | XMS_ITS | Encounter Summary ---
:1960 Author Organization [place] Address Counts include 234 beds at the [facility]0 [facility] [place] [address] Care Team Providers Name Role Phone Unavailable Primary Care Provider Unavailable Encounter Details Date Type Department Care Team Description 08/18/2005 Therapy Visit [place] Cyndi Crews iamCERVICA LGIA (Primary Athletic Medicine - PT Dx) Britta Chaudhry [address] [place] [address] [place] [address] [facility] [phone] N[place] RIOS [phone] (Work) [phone] Social History Tobacco Use Types Packs/Day Years [...] to the daily flowsheet for treatment today. ASST documented in this encounter Plan of Treatment Not on filedocumented as of this encounter Procedures Procedure Name Priority Date/Time Associated Diagnosis Comme nts ZC THERAPEUTIC Routine 08/18/2005 3:53 PM CARE ASST iamCERVICALGIA EXERCISES Z HOT OR COLD PACKS Routine 08/18/2005 3:53 PM CARE ASST iamCERVIC [place] THERAPY [facility] MECHANICAL TRACTION Routine 08/18/2005 3:53 PM CARE ASST iamCERV ICALGIA THERAPY documented in this encounter Visit Diagnoses Diagnosis iamCERVICALGIA - Primary Cervicalgia documented in this encounter
--- OUTSIDE RECORDS SUMMARY | 2022-09-04 16:48 | XMS_ITS | Encounter Summary ---
:1960 Author Organization [place] Address [facility] [place] [address] Care Team Providers Name Role Phone Unavailable Primary Care Provider Unavailable Encounter Details Date Type Department Care Team Description 08/22/2005 Therapy Visit [place] Cyndi Crews iamCERVICA LGIA (Primary Athletic Medicine - PT Dx) Britta Chaudhry [address] [place] [address] [place] [address] [facility] [phone] NABIL RIOS [phone] (Work) [phone] Social History Tobacco Use Types Packs/Day Years [...] do you attend congregation or Not asked shinto services? Do you [...] to the daily flowsheet for treatment today. NG FRAME MAKER documented in this encounter Plan of Treatment Not on filedocumented as of this encounter Procedures Procedure Name Priority Date/Time Associated Diagnosis Comme nts ZC THERAPEUTIC Routine 08/22/2005 12:29 PM iamCERVICALGIA EXERCISES AWNING FRAME MAKER ZC MECHANICAL TRACTION Routine 08/22/2005 12:29 PM iamCERVICA LGIA THERAPY AWNING FRAME MAKER [facility] HOT OR COLD PACKS Routine 08/22/2005 12:29 PM iamCERVICALG IA THERAPY AWNING FRAME MAKER documented in this encounter Visit Diagnoses Diagnosis iamCERVICALGIA - Primary Cervicalgia documented in this encounter
--- OUTSIDE RECORDS SUMMARY | 2022-09-04 16:50 | XMS_ITS | Clinical Summary ---
:1960 Author Organization [employer] [employer] [facility] [place] [address] Care Team Providers Name Role Phone Teresita Garcia MD Primary Care Provider Lorna West RN Unavailable [facility], [facility] Unavailable Allergies Active Allergy Reactions [...] Active mg/mL soln Every 6 months - [facility] infuses calcium Chew 1 Tablet by 0 [...] HCl Take 500 mg by 0 08/24/2022 (CIPRO) 500 mg mouth two times 2 [...] test positive for detection of COVID-19 virus /04/2021 Weakness 11/25/2019 Lactic acidosis 11/25/2019 Spastic paraplegia [...] Encounters Date Type Specialty Care Team Description 09/03/2022 Home Care Visit Jaspreet Pham, PT PT - HOME VISIT 09/02/2022 Home Care Visit Dorys Cordon OYSTER CULTIVATOR - LONG VISIT 09/02/2022 Home Care Visit Zoie Murrell, SN - H OME VISIT RN 09/01/2022 Home Care Visit Jaspreet Pham, PT PT - HOME VISIT 08/27/2022 Home Care Visit Jaspreet Pham, PT PT - INITIAL ASSESSMENT 08/26/2022 Home Care Visit ProDorys mclaughlin A OYSTER CULTIVATOR - LONG VISIT 08/26/2022 Home Care Visit Zoie Murrell SN - H OME VISIT RN 08/24/2022 Emergency Kodak Marino ysreflexia (Primary Dx); MD Thom Constipation, unspecified constipation t ype Flory Ivy MD 08/24/2022 Travel 08/24/2022 Home Care Visit Mi Mullins RN CARE C OORDINATION 08/22/2022 Home Care Visit ProwDorys A OYSTER CULTIVATOR - MISSE D VISIT 08/20/2022 Home Care Visit Zoie Murrell SN - P RN HOME VISIT RN 08/20/2022 Orders Only Chris Mcmahan, <No scan s attached> 08/20/2022 Orders Only Chris Mcmahan, Lab MD 08/19/2022 Home Care Visit ProDorys mclaughlin A OYSTER CULTIVATOR - LONG VISIT 08/19/2022 Home Care Visit Zoie Murrell SN - H OME VISIT RN 08/15/2022 Home Care Visit Prow, Dorys A OYSTER CULTIVATOR - LONG VISIT 08/12/2022 Home Care Visit Zoie Murrell SN - L LUDMILA VISIT (>90 RN MINUTES) 08/12/2022 Home Care Visit ProDorys mclaughlin A OYSTER CULTIVATOR - LONG VISIT 08/08/2022 Home Care Visit ProwDorys A OYSTER CULTIVATOR - LONG VISIT 08/05/2022 Home Care Visit Prow, Dorys A OYSTER CULTIVATOR - LONG VISIT 08/05/2022 Home Care Visit Zoie Murrell SN - H OME VISIT RN 08/01/2022 Home Care Visit Prow, Dorys A OYSTER CULTIVATOR - LONG VISIT 07/30/2022 Home Care Visit Zoie Murrell SN - H OME VISIT RN 07/29/2022 Home Care Visit Prow, Dorys A OYSTER CULTIVATOR - LONG VISIT 07/29/2022 Home Care Visit Quin Lantigua RN CARE COORDINATION 07/29/2022 Home Care Visit Stout, Quin R, RN CARE COORDINATION 07/25/2022 Home Care Visit Prow, Dorys A OYSTER CULTIVATOR - LONG VISIT 07/22/2022 Home Care Visit Prow, Dorys A OYSTER CULTIVATOR - LONG VISIT 07/22/2022 Home Care Visit Zoie Murrell, SN - H OME VISIT RN 07/18/2022 Home Care Visit Prow, Dorys A OYSTER CULTIVATOR - LONG VISIT 07/15/2022 Home Care Visit Prow, Dorys A OYSTER CULTIVATOR - LONG VISIT 07/15/2022 Home Care Visit Zoie Murerll, SN - H OME VISIT RN 07/11/2022 Home Care Visit Prow, Dorys A OYSTER CULTIVATOR - LONG VISIT 07/08/2022 Home Care Visit Prow, Dorys A OYSTER CULTIVATOR - LONG VISIT 07/08/2022 Home Care Visit Zoie Murrell, SN - O ASIS RECERTIFICATION RN 07/07/2022 Office Visit Baclofen Implan table Pump 07/07/2022 Hospital Encounter Hina Alcocer, Mul tiple sclerosis, HELICOPTER OFFICER relapsing-remit ting (HC) 07/07/2022 Travel 07/04/2022 Home Care Visit Prow, Dorys A OYSTER CULTIVATOR - LONG VISIT 07/03/2022 Home Care Visit Zoie Murrell, CARE C OORDINATION RN 07/01/2022 Home Care Visit Prow, Dorys A OYSTER CULTIVATOR - LONG VISIT 07/01/2022 Home Care Visit Zoie Murrell, SN - H OME VISIT RN 06/27/2022 Home Care Visit Prow, Dorys A OYSTER CULTIVATOR - LONG VISIT 06/24/2022 Home Care Visit Prow, Dorys A OYSTER CULTIVATOR - LONG VISIT 06/24/2022 Home Care Visit Zoie Murrell, SN - H OME VISIT RN 06/20/2022 Home Care Visit Prow, Dorys A OYSTER CULTIVATOR - LONG VISIT 06/17/2022 Home Care Visit Prow, Dorys A OYSTER CULTIVATOR - LONG VISIT 06/17/2022 Home Care Visit Zoie Murrell, SN - H OME VISIT RN 06/13/2022 Home Care Visit Prow, Dorys A OYSTER CULTIVATOR - LONG VISIT 06/10/2022 Home Care Visit Prow, Dorys A OYSTER CULTIVATOR - GENESIS VISIT 06/10/2022 Home Care Visit Zoie Murrell SN - H OME VISIT RN 06/06/2022 Home Care Visit Dorys Cordon VISIT from Last 3 Months Immunizations Name [...] old.?Older brother has hyperlipidem ia.?Paternal grandfather of [place] at unknown age. Genetic Other 2 Father [...] No / Unsu re 08/24/2022 3:42 PM MOTTLE LAY UP OPERATOR someone who was confirmed or suspected to have Coronavirus/COVID-19? Obstetrics History Last Filed Vital Signs Vital Sign Reading Time Taken Comments Blood Pressure 120/88 09/03/2022 2:00 PM MOTTLE LAY UP OPERATOR Pulse 82 09/03/2022 2:00 PM MOTTLE LAY UP OPERATOR Temperature 36.1 ??C (97 ??F) 09/02/2022 1:33 PM MOTTLE LAY UP OPERATOR Respiratory Rate 16 09/03/2022 2:00 PM MOTTLE LAY UP OPERATOR Oxygen Saturation 97% 09/03/2022 2:00 PM MOTTLE LAY UP OPERATOR Inhaled Oxygen Concentration - - Weight 80.8 kg (178 lb 3.2 oz) 08/24/2022 3:44 PM MOTTLE LAY UP OPERATOR Height 170.2 cm (5' 7) 08/24/2022 3:44 PM MOTTLE LAY UP OPERATOR Body Mass Index 27.91 08/24/2022 3:44 PM MOTTLE LAY UP OPERATOR Plan of Treatment Upcoming Encounters Date Type Specialty Care Team Description 09/05/2022 Home Care Visit Dorys Cordon [address] [place] [address] (Wo rk) 09/08/2022 Home Care Visit Jaspreet Pham, PT [address] [place] [address] (Wo rk) 09/09/2022 Home Care Visit Dorys Cordon [address] [place] [address] (Wo rk) 09/10/2022 Home Care Visit Jaspreet Pham, PT [address] [place] [address] (Wo rk) 09/26/2022 Office Visit Argelia Aguilar, DO [address] [place] [address] (Wo rk) Health Maintenance Due Date Last [...] 05/29/2022 07/27/2016 Medical Devices Implanted Type Area Transmissions Systems Operator Device Shelf Expiration Model / Identifier Date Serial / Lot Pump Synchromed Ii 20ml - [id number] Spine Medtronic 04/24/2012 [id number] / Implanted: Qty: 1 on 12/16/2010 at [facility] [id number] / Explanted: at [facility] (Quantity not on file) Duraseal Spine [id number] / Implanted: Qty: 1 on 03/11/2011 at [facility] / Description: DURASEAL Graft 1x1 Dura Mater Duragen - [id number] [employer] N EURO SUPPLIES 01/25/2014 [id number] / Implanted: Qty: 1 on 05/15/2011 at [facility] / [id number] Cnnctr Spinal Indura Sutureless - [id number] N/A : Abdomen Medtronic Pain Therapy 06/14/2017 [id number]# / Implanted: Qty: 1 on 01/27/2017 by Frederic Talley MD at [facility] / [id number] Procedures Procedure Name Priority Date/Time Associated Comments Diagnosis XR ABDOMEN 1 VIEW STAT 08/24/2022 7:19 PM Resu lts for this MOTTLE LAY UP OPERATOR procedure are i n the results section. URINALYSIS STAT 08/24/2022 5:09 PM Results f or this MICROSCOPIC MOTTLE LAY UP OPERATOR procedure are i n the results section. URINE CULTURE STAT 08/24/2022 5:09 PM Results for this MOTTLE LAY UP OPERATOR procedure are i n the results section. UA W/ SEDIMENT EXAM STAT 08/24/2022 5:09 PM Re sults for this REFLEXED PER CRITERIA MOTTLE LAY UP OPERATOR proced ure are in the results section. BASIC METABOLIC PANEL STAT 08/24/2022 4:29 PM Results for this MOTTLE LAY UP OPERATOR procedure are i n the results section. URINALYSIS Routine 08/20/2022 7:00 PM Urinary tract Results for this MICROSCOPIC MOTTLE LAY UP OPERATOR infection procedure are i n associated with the results indwelling urethral section. catheter, initial encounter (HC) CBC WITH AUTO Routine 08/20/2022 7:00 PM Weakness Results for this DIFFERENTIAL MOTTLE LAY UP OPERATOR procedure are i n the results section. URINE CULTURE Routine 08/20/2022 7:00 PM Urinary tract Results for this MOTTLE LAY UP OPERATOR infection procedure are i n associated with the results indwelling urethral section. catheter, initial encounter (HC) UA W/ SEDIMENT EXAM Routine 08/20/2022 7:00 PM Urinary tract R esults for this REFLEXED PER CRITERIA MOTTLE LAY UP OPERATOR infection proced ure are in associated with the results indwelling urethral section. catheter, initial encounter (HC) VITAMIN D 25 Routine 08/20/2022 7:00 PM Weakness Results f or this (DEFICIENCY) MOTTLE LAY UP OPERATOR procedure are i n the results section. COMP METABOLIC PANEL Routine 08/20/2022 7:00 PM Weakness R esults for this MOTTLE LAY UP OPERATOR procedure are i n the results section. CBC WITH AUTO Routine 08/20/2022 7:00 PM Weakness Results for this DIFFERENTIAL MOTTLE LAY UP OPERATOR procedure are i n the results section. MR HEAD BRAIN WWO Routine 07/07/2022 1:38 PM Multiple sclerosi s, Results for this CDT relapsing-remitting procedur e are in (HC) the results section. from Last 3 Months Results XR ABDOMEN 1 VIEW (08/24/2022 7:19 PM MOTTLE LAY UP OPERATOR) Anatomical Region Laterality Modality Abdomen Digital Radiography Specimen (Source) Anatomical Collection Method Collection Time Re ceived Time Location / / Volume Laterality 08/24/2022 7:26 PM MOTTLE LAY UP OPERATOR Narrative 08/24/2022 7:26 PM MOTTLE LAY UP OPERATOR For Patients: ??As a result of the Cures Act, medical imaging exams and procedure report s are released immediately into your [email or web address] medical record. ??You may view this report before your referring provider. ??If you have questions, please contact your health care provider. Indication: No bowel movement Technique: Two view KUB Comparison: No comparison Findings: Hip arthroplasties. Moderate stool marina en. No dilated loops of bowel. No free air. Bowel gas pattern nonobstructive Dictated by Jacquelyn aFrah MD @ Aug 24 ??7:26PM (Electronically Signed) ?? Procedure Note Jacquelyn Farah MD - 08/24/2022 For Patients: As a result of the Cures Act, medical imaging exams and procedure reports are released immediately into your electronic medical record. You may view this report before your referring provider. If you have questions, please contact [facility] health care provider. Indication: No bowel movement Technique: Two view KUB Comparison: No comparison Findings: Hip arthroplasties. Moderate stool marina en. No dilated loops of bowel. No free air. Bowel gas pattern nonobstructive Dictated by Jacquelyn Farah MD @ Aug 24 7:26PM (Electronically Signed) Kodak Marino MD GENERAL IMAGING (ABNORMAL) URINALYSIS MICROSCOPIC (08/24/2022 5:09 PM MOTTLE LAY UP OPERATOR)Only the most recent of2 resultswithin the time period is included. [facility] Validus Method Time Signature RBC 0-2 0-2, None 08/24/2022 [facility] Seen /HPF 5:36 PM MOTTLE LAY UP OPERATOR LABORATORY-[facility] TRAL LABORATORY WBC 11-25 (A) 0-2, 3-5, 08/24/2022 [facility] None Seen 5:36 PM MOTTLE LAY UP OPERATOR LAB[facility]ATORY[facility] /HPF TRAL LABORATORY BACTERIA Few None 08/24/2022 [facility] Seen, 5:36 PM MOTTLE LAY UP OPERATOR LAB[facility]ATORY[facility] Rare, Few TRAL Bacteria/ LABORATORY HPF EPITHELIAL Few None 08/24/2022 [facility] CELLS Seen, Few 5:36 PM MOTTLE LAY UP OPERATOR [facility] Epi/HPF TRAL LABORATORY HYALINE CASTS 0-2 0-2, 3-5 08/24/2022 [facility] Evirx /LPF 5:36 PM MOTTLE LAY UP OPERATOR [facility] TRAL LABORATORY Specimen Anatomical Collection Method Collection Time Receive d Time (Source) Location / / Volume Laterality Urine URINE SPECIMEN / Non-Blood / 08/24/2022 5:09 PM 08/24 5:26 Unknown Unknown MOTTLE LAY UP OPERATOR PM MOTTLE LAY UP OPERATOR Kodak Marino MD URINE Performing Organization Address City/State/ZIP Code Phon e Number [facility] [address] [place] [address] LABORATORY-CENTRAL 2000 LABORATORY (ABNORMAL) URINE CULTURE (08/24/2022 5:09 PM MOTTLE LAY UP OPERATOR)Only the most recent of2 resultswithin the time period is included. [facility] Validus Method Time Signature CULTURE RESULT (A) 08/28/2022 [facility] HEALTH 7:40 AM MOTTLE LAY UP OPERATOR LAB[facility]ATORY[facility] TRAL LABORATORY CULTURE >100,000 CFU/mL 08/28/2022 [facility] Pseudomonas 7:40 AM MOTTLE LAY UP OPERATOR [facility] aeruginosa TRAL LABORATORY CULTURE >100,000 CFU/mL 08/28/2022 [facility] Enterococcus 7:40 AM MOTTLE LAY UP OPERATOR [facility] faecalis TRAL LABORATORY Specimen Anatomical Collection Method Collection Time Receive d Time (Source) Location / / Volume Laterality Urine URINE SPECIMEN / Non-Blood / 08/24/2022 5:09 PM 08/24 5:26 Unknown Unknown MOTTLE LAY UP OPERATOR PM MOTTLE LAY UP OPERATOR Organism Antibiotic Method Susceptibility Pseudomonas aeruginosa GENTAMICIN <=1: S Pseudomonas aeruginosa CEFTAZIDIME 8: S Pseudomonas aeruginosa LEVOFLOXACIN 2: I Pseudomonas aeruginosa CIPROFLOXACIN 0.5: S Pseudomonas aeruginosa PIPERACILLIN/TAZO 32: I Pseudomonas aeruginosa CEFEPIME 8: S Pseudomonas aeruginosa TOBRAMYCIN <=1: S Pseudomonas aeruginosa MEROPENEM 4: I Enterococcus faecalis GENTAMICIN SYNERGY R Enterococcus faecalis STREPTOMYCIN SYNERGY R Enterococcus faecalis VANCOMYCIN 2: S Enterococcus faecalis LEVOFLOXACIN >=8: R Enterococcus faecalis AMPICILLIN <=2: S Enterococcus faecalis NITROFURANTOIN <=16: S Kodak Marino MD MICROBIOLOGY Performing Organization Address City/State/ZIP Code Phon e Number [employer] [address] [place] [address] LABORATORY-CENTRAL [facility] LABORATORY (ABNORMAL) UA W/ SEDIMENT EXAM REFLEXED PER CRITERIA (08/24/2022 5:09 PM MOTTLE LAY UP OPERATOR) Only the most recent of2 resultswithin the time period is included. [facility] Method Time Signature COLOR Yellow Yellow Color 08/24/2022 [employer] 5:36 PM MOTTLE LAY UP OPERATOR LABORATORY-CE NTRAL LABORATORY CLARITY Clear Clear 08/24/2022 [employer] Clarity 5:36 PM MOTTLE LAY UP OPERATOR LABORATORY-CE NTRAL LABORATORY SPECIFIC <=1.005 (A) 1.010, 08/24/2022 [employer] GRAVITY,URINE 1.015, 5:36 PM MOTTLE LAY UP OPERATOR LABORATORY-CE 1.020, 1.025 NTRAL LABORATORY PH,URINE 7.5 6.0, 7.0, 08/24/2022 [facility] 8.0, 5.5, 5:36 PM MOTTLE LAY UP OPERATOR LABORATORY-CE 6.5, 7.5, NTRAL 8.5 LABORATORY UROBILINOGEN, Normal Normal EU/dl 08/24/2022 [facility]AL[facility] 5:36 PM MOTTLE LAY UP OPERATOR LABORATORY-CE NTRAL LABORATORY PROTEIN, Negative Negative 08/24/2022 [facility] URINE mg/dL 5:36 PM MOTTLE LAY UP OPERATOR LABORATORY-CE NTRAL LABORATORY GLUCOSE, Negative Negative 08/24/2022 [facility] URINE mg/dL 5:36 PM MOTTLE LAY UP OPERATOR LABORATORY-CE NTRAL LABORATORY KETONES,URINE Negative Negative 08/24/2022 [facility] mg/dL 5:36 PM MOTTLE LAY UP OPERATOR LABORATORY-CE NTRAL LABORATORY BILIRUBIN,URI Negative Negative 08/24/2022 [facility] NE 5:36 PM MOTTLE LAY UP OPERATOR LABORATORY-CE NTRAL LABORATORY OCCULT Negative Negative 08/24/2022 [facility] BLOOD,URINE 5:36 PM MOTTLE LAY UP OPERATOR LABORATORY-CE NTRAL LABORATORY NITRITE Negative Negative 08/24/2022 [facility] 5:36 PM MOTTLE LAY UP OPERATOR LABORATORY-CE NTRAL LABORATORY LEUKOCYTE Large (A) Negative 08/24/2022 [facility] ESTERASE 5:36 PM MOTTLE LAY UP OPERATOR LABORATORY-CE NTRAL LABORATORY Specimen Anatomical Collection Method Collection Time Receive d Time (Source) Location / / Volume Laterality Urine URINE SPECIMEN / Non-Blood / 08/24/2022 5:09 PM 08/24 5:26 Unknown Unknown MOTTLE LAY UP OPERATOR PM MOTTLE LAY UP OPERATOR Kodak Marino MD URINE Performing Organization Address City/State/ZIP Code Phon e Number [facility] [address] [place] [address] LABORATORY-CENTRAL 2000 LABORATORY (ABNORMAL) BASIC METABOLIC PANEL (08/24/2022 4:29 PM MOTTLE LAY UP OPERATOR) Analysis Performed At Patho logist Time Signature SODIUM 136 135 - 145 08/24/2022 [facility] mmol/L 5:15 PM MOTTLE LAY UP OPERATOR [facility] TRAL LABORATORY POTASSIUM 3.8 3.5 - 5.0 08/24/2022 [facility] mmol/L 5:15 PM MOTTLE LAY UP OPERATOR [facility] TRAL LABORATORY CHLORIDE 101 98 - 110 08/24/2022 [facility] mmol/L 5:15 PM MOTTLE LAY UP OPERATOR [facility] TRAL LABORATORY CO2,TOTAL 27 21 - 31 08/24/2022 [facility] mmol/L 5:15 PM MOTTLE LAY UP OPERATOR [facility] TRAL LABORATORY ANION GAP 8 5 - 18 08/24/2022 [facility] 5:15 PM MOTTLE LAY UP OPERATOR [facility] TRAL LABORATORY GLUCOSE 105 (H) 65 - 100 08/24/2022 [facility] mg/dL 5:15 PM MOTTLE LAY UP OPERATOR [facility] TRAL LABORATORY CALCIUM 9.4 8.5 - 10.5 08/24/2022 [facility] mg/dL 5:15 PM MOTTLE LAY UP OPERATOR [facility] TRAL LABORATORY BUN 13 8 - 25 08/24/2022 [facility] mg/dL 5:15 PM MOTTLE LAY UP OPERATOR LAB[facility]AT[facility] TRAL LABORATORY CREATININE 1.03 0.72 - 08/24/2022 [facility] 1.25 mg/dL 5:15 PM MOTTLE LAY UP OPERATOR [facility] TRAL LABORATORY BUN/CREAT RATIO 13 10 - 20 08/24/2022 [facility] HEALTH 5:15 PM MOTTLE LAY UP OPERATOR [facility] TRAL LABORATORY eGFR 83 (L) >90 08/24/2022 [facility] mL/min/1.7 5:15 PM MOTTLE LAY UP OPERATOR LAB[facility]AT[facility] 3m2 TRAL LABORATORY Comment: As of [...] 08/24/2022 4:29 2021 4:40 Unknown Unknown PM MOTTLE LAY UP OPERATOR PM MOTTLE LAY UP OPERATOR Kodak Marino MD CHEMISTRY Performing Organization Address City/State/ZIP Code Phon e Number [facility] [address] [place], [place] [address] [address] LABORATORY-CENTRAL 2000 LABORATORY CBC WITH AUTO DIFFERENTIAL (08/20/2022 7:00 PM MOTTLE LAY UP OPERATOR) P athologist Signature WHITE BLOOD 5.4 4.5 - 11.0 08/20/2022 [facility] COUNT thou/cu mm 7:54 PM MOTTLE LAY UP OPERATOR [facility] LAB RED BLOOD COUNT 5.10 4.30 - 08/20/2022 [facility] 5.90 7:54 PM MOTTLE LAY UP OPERATOR [place] mil/cu mm [facility] LAB HEMOGLOBIN 15.8 13.5 - 08/20/2022 [facility] 17.5 g/dL 7:54 PM MOTTLE LAY UP OPERATOR [facility] LAB HEMATOCRIT 47.5 37.0 - 08/20/2022 [facility] 53.0 % 7:54 PM MOTTLE LAY UP OPERATOR [facility] LAB MCV 93 80 - 100 08/20/2022 [facility] fL 7:54 PM MOTTLE LAY UP OPERATOR [facility] LAB MCH 31.0 26.0 - 08/20/2022 [facility] 34.0 pg 7:54 PM MOTTLE LAY UP OPERATOR [facility] LAB MCHC 33.3 32.0 - 08/20/2022 [facility] 36.0 g/dL 7:54 PM [facility] LAB RDW 12.5 11.5 - 08/20/2022 [facility] 15.5 % 7:54 PM [facility] LAB PLATELET COUNT 238 140 - 440 08/20/2022 [facility] thou/cu mm 7:54 PM [facility] LAB MPV 10.3 6.5 - 11.0 08/20/2022 [facility] fL 7:54 PM [facility] LAB % NEUT 64.1 % 08/20/2022 [facility] 7:54 PM [facility] LAB % LYMPH 24.9 % 08/20/2022 [facility] 7:54 PM [facility] LAB % MONO 8.8 % 08/20/2022 [facility] 7:54 PM [facility] LAB % EOS 1.5 % 08/20/2022 [facility] 7:54 PM [facility] LAB % BASO 0.7 % 08/20/2022 [facility] 7:54 PM [facility] LAB % IMMATURE GRAN 0.0 % 08/20/2022 [facility] (METAS,MYELOS,MI 7:54 PM [facility] LAB ABSOLUTE 3.5 1.7 - 7.0 08/20/2022 [facility] NEUTROPHILS thou/cu mm 7:54 PM [facility] LAB ABSOLUTE 1.4 0.9 - 2.9 08/20/2022 [facility] LYMPHOCYTES thou/cu mm 7:54 PM [facility] LAB ABSOLUTE 0.5 <0.9 08/20/2022 [facility] MONOCYTES thou/cu mm 7:54 PM [facility] LAB ABSOLUTE 0.1 <0.5 08/20/2022 [facility] EOSINOPHILS thou/cu mm 7:54 PM [facility] LAB ABSOLUTE 0.0 <0.3 08/20/2022 [facility] BASOPHILS thou/cu mm 7:54 PM MOTTLE LAY UP OPERATOR -HASTI NGS [facility] LAB ABSOLUTE 0.0 <0.3 08/20/2022 [facility] IMMATURE thou/cu mm 7:54 PM MOTTLE LAY UP OPERATOR [place] GRANULOCYTES([facility] I ,MYELOS,PROS) NGS [facility] LAB Specimen Anatomical Collection Method / Collection Time Recei rao Time (Source) Location / Volume Laterality Blood BLOOD SPECIMEN / Non-Lab 08/20/2022 7:00 08/20/20 22 7:50 Unknown Venipuncture / PM MOTTLE LAY UP OPERATOR PM MOTTLE LAY UP OPERATOR Unknown Narrative [facility] [place] 08/20/2022 7:54 PM MOTTLE LAY UP OPERATOR This procedure was originally ordered at [facility] Chris cMmahan MD HEMATOLOGY Performing Organization Address City/[facility]/ZIP Code Phon e Number [facility] [address] [place] [address] [facility] LAB VITAMIN D 25 (DEFICIENCY) (08/20/2022 7:00 PM MOTTLE LAY UP OPERATOR) athologist Signature VITAMIN D 40.4 30.0 - 08/23/2022 [facility] TOTAL 80.0 ng/mL 4:18 AM MOTTLE LAY UP OPERATOR LABORATORY-CENT RAL LABORATORY Specimen Anatomical Collection Method / Collection Time Recei rao Time (Source) Location / Volume Laterality Blood BLOOD SPECIMEN / Non-Lab 08/20/2022 7:00 08/20/20 22 7:50 Unknown Venipuncture / PM MOTTLE LAY UP OPERATOR PM MOTTLE LAY UP OPERATOR Unknown Narrative [facility] LABORATORY-CENTRAL LABORAT ORY - 08/23/2022 4:18 AM MOTTLE LAY UP OPERATOR Deficiency: ? <20 ng/mL Insufficiency: ?20-29 ng/mL Sufficiency: ?30-80 ng/mL Possible Toxicity: ??>80 ng/mL Based on [place] [facility] recommend ations Chris Mcmahan MD SEND OUTS Performing Organization Address City/State/ZIP Code Phon e Number [facility] [address] [place] [address] LABORATORY-CENTRAL 2000 LABORATORY (ABNORMAL) COMP METABOLIC PANEL (08/20/2022 7:00 PM MOTTLE LAY UP OPERATOR) Analysis Performed At Patho logist Time Signature SODIUM 138 135 - 145 08/20/2022 [facility] mmol/L 8:42 PM MOTTLE LAY UP OPERATOR [facility] POTASSIUM 4.0 3.5 - 5.0 08/20/2022 [facility] mmol/L 8:42 PM MOTTLE LAY UP OPERATOR [facility] CHLORIDE 101 98 - 110 08/20/2022 [facility] mmol/L 8:42 PM MOTTLE LAY UP OPERATOR [facility] CO2,TOTAL 27 21 - 31 08/20/2022 [facility] mmol/L 8:42 PM MOTTLE LAY UP OPERATOR [facility] ANION GAP 10 5 - 18 08/20/2022 [facility] 8:42 PM MOTTLE LAY UP OPERATOR [facility] GLUCOSE 120 (H) 65 - 100 08/20/2022 [facility] mg/dL 8:42 PM MOTTLE LAY UP OPERATOR [facility] CALCIUM 9.3 8.5 - 10.5 08/20/2022 [facility] mg/dL 8:42 PM MOTTLE LAY UP OPERATOR [facility] BUN 9 8 - 25 08/20/2022 [facility] mg/dL 8:42 PM MOTTLE LAY UP OPERATOR [facility] CREATININE 0.88 0.72 - 08/20/2022 [facility] 1.25 mg/dL 8:42 PM MOTTLE LAY UP OPERATOR [facility] BUN/CREAT RATIO 10 10 - 20 08/20/2022 [facility] 8:42 PM MOTTLE LAY UP OPERATOR [facility] ALBUMIN 4.4 3.2 - 4.6 08/20/2022 [facility] g/dL 8:42 PM MOTTLE LAY UP OPERATOR [facility] PROTEIN,TOTAL 6.4 6.0 - 8.0 08/20/2022 [facility] HEALTH g/dL 8:42 PM MOTTLE LAY UP OPERATOR [facility] GLOBULIN 2.0 2.0 - 3.7 08/20/2022 [facility] g/dL 8:42 PM MOTTLE LAY UP OPERATOR [facility] A/G RATIO 2.2 (H) 1.0 - 2.0 08/20/2022 [facility] 8:42 PM [facility] BILIRUBIN,TOTAL 0.4 0.2 - 1.2 08/20/2022 [facility] mg/dL 8:42 PM [facility] ALK PHOSPHATASE 74 50 - 136 08/20/2022 [facility] IU/L 8:42 PM [facility] ALT (SGPT) 36 8 - 45 08/20/2022 [facility] IU/L 8:42 PM [facility] AST (SGOT) 20 2 - 40 08/20/2022 [facility] IU/L 8:42 PM [facility] eGFR >90 >90 08/20/2022 [facility] mL/min/1.7 8:[address] LAB Comment: As of 2021, eGFR [...] 7:00 08/20/20 7:50 Unknown Venipuncture / PM MOTTLE LAY UP OPERATOR PM MOTTLE LAY UP OPERATOR Unknown Chris Mcmahan MD CHEMISTRY Performing Organization Address City/State/ZIP Code Phon e Number [facility] [place] [id number] [place] [address] [facility] MR Brain w/wo Contrast [...] enhancing lesions to suggest active demyelination. 3. Uxpa-qu-ajpvbejy T1 hypointense lesio n load. Mild cerebral [...] within the tomasa and right brachium pontis. Ptke-hg-dxirdtgl T1 hypointense lesion load. No enhancing lesions. [...] within the tomasa and right brachium pontis. Fmju-xi-pcwxpkjg T1 hypointense lesion load. No enhancing lesions. [...] enhancing lesions to suggest active demyelination. 3. Iggz-ue-xsdgdqzv T1 hypointense lesio n load. Mild cerebral and callosal atrophy. 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 Last 3 Months Insurance Payer Benefit Plan / Subscriber ID Effective Phone Address T [facility] Group Dates MEDICARE PART MEDICARE PART B [id number] 2006-Pres A TTN: CLAIMS B - HB USE HB ONLY ent [address] [place] [address] MEDICARE PART MEDICARE PART A [id number] 2006-Pres A TTN: CLAIMS A - HB USE HB ONLY ent [address] [place] [address] MEDICARE - PB MEDICARE PB [id number] 2006-Pres ATTN: CLAIMS USE ONLY ONLY ent [address] [place] [address] [employer] OF [id number] 2018-Prese [address] [facility] [place] [address] MEDICARE PPS HC MEDICARE PPS [id number] 2006-Pres [address] ent [address] [place] [address] [address] (Home) [address] [place] [address] Dejuan Rodriguez Personal/Family Self 1960 [address] (Home) [address] [facility] [place] [place] [address] Advance Directives Latest Code Status on File [...] Discussion: Per Advance Care Plan Care Teams Child Protection Specialist Relationship Specialty Start Date End Date Teresita Garcia MD PCP - General 05/13/11 [address] [place] [address] Lorna West RN Spasticity Management Care Registered Nurse 08/05/21 [address] [facility]- [address] [address] [place] [address] [facility], 01/14/22 [facility] [address] [place] [address]
== END 2022-08-21 19:32 | disposition home or self-care (01) ==
LOC: AMB 09-04 16:38
PROVIDERS: Visit Provider Family Medicine
DX: R53.1 Weakness (principal); G35 Multiple sclerosis
CPT/HCPCS: A0425; A0428

== ENCOUNTER 2023-08-10 18:02 | Emergency (ER) | payer MEDICARE, BC, SELFPAY ==
[2023-08-10 18:18] VITALS: BP 127/79; PULSE 91; RESP 18; TEMP 36.8; O2SAT 95; BMI 26.6
--- NOTE | 2023-08-10 18:50 | ED_ITS ---
HPI - General Adult General Chief complaint: Weakness Stated complaint: uti Time Seen by Provider: 08/10/23 18:36 History of Present Illness HPI narrative: This 62-year-old male comes in reporting feeling generalized weakness and malaise over the past couple weeks. He thinks that he might have a urinary tract infection. He had a suprapubic catheter placed about 5 months ago and was instructed to have a change of this calf there are every month at which time he should take 1 Cipro tablet. He lives in an assisted living place and states that they have not managed this medicine properly. He has not had any Cipro for the past couple changes of his catheter. He does not report any fever, shortness of breath, or other symptoms. He does have multiple sclerosis and arrives in a motorized wheelchair. Related Data Home Medications Medication Instructions Recorded Confirmed alendronate 70 mg tablet 70 mg PO .weekly 08/16/22 08/16/22 baclofen 10 mg tablet 10 mg PO Q6H PRN 08/16/22 08/16/22 gabapentin 400 mg capsule 400 mg PO QID 08/16/22 08/16/22 ketoconazole 2 % shampoo 1 applic topical .twice weekly 08/16/22 08/16/22 ocrelizumab 30 mg/mL intravenous 300 mg IV [id number] 08/16/22 08/16/22 solution (Ocrevus) polyethylene glycol 3350 17 17 g PO DAILY PRN 08/16/22 08/16/22 gram/dose oral powder (ClearLax) pramipexole 0.125 mg tablet 0.125 mg PO QID 08/16/22 08/16/22 Allergies Allergy/AdvReac Type Severity Reaction Status Date / Time hydromorphone [From Dilaudid] AdvReac Intermediate Vomiting Verified 08/16/22 13:48 Review of Systems Status of ROS: Reports: 10 or more systems reviewed and unremarkable except as noted in History and below Narrative: Constitutional: No fevers, no weight gain or loss. Eyes: No discharge. No vision changes. HENT: No congestion, no sore throat, no ear pain. Cardiovascular: No chest pain, no palpitations. Respiratory: No shortness of breath, no wheezes, no cough. Gastrointestinal: No abdominal pain, no vomiting, no diarrhea. Genitourinary: Chronic indwelling suprapubic catheter. Musculoskeletal: Normal range of motion. Skin: No rashes, no pruritis. Neurological: No dizziness, speech change. Generalized weakness with history of MS. Endo/Heme/Allergies: No bruising or bleeding. No polydipsia. Pysch: no suicidality, no anxiety, no insomnia. All other systems reviewed and are negative. [facility] Social History Smoking Status: Current some day smoker Do you use any of these nicotine containing products: Vaping Products Second hand tobacco smoke exposure: No How often do you have a drink containing alcohol: never How often do you have six or more drinks on one occasion: Never AUDIT-C Alcohol total score: 0 Non-prescribed substance use: marijuana (any form) Non-prescribed substance use details: vaps thc service: No Exam Narrative: Exam Narrative: Constitutional: Well-developed, well-nourished, no acute distress. HEENT: Normocephalic, atraumatic. Neck: Normal range of motion. Nontender. Supple. Heart: Regular. No murmurs. Normal rate. Intact distal pulses. Lungs: Clear to auscultation. No chest discomfort. No wheezes, rhonchi, or rales. Abdomen: Normal bowel sounds. Nontender. No rebound tenderness. Genitalia: Deferred. Back: No midline tenderness. Normal range of motion. Extremities: Normal range of motion. No injury. MS with poor ability to ambulate and typically in a motorized wheelchair. Skin: Intact. No rash. Warm. No erythema or pallor. Neurologic: No altered sensation. No weakness. Alert and oriented. Psychiatric: No suicidality. No anxiety or depression. No insomnia. Nursing notes and vitals signs are reviewed. Const: Vital Signs, click to edit/add: Vital Signs - 24 hr 08/10/23 18:18 Temperature 98.3 F Pulse Rate [Pulse Oximeter] 91 Respiratory Rate 18 Blood Pressure [Ri ght Upper Arm] 127/79 Pulse Oximetry 95 Oxygen Delivery Me thod Room Air Course Vital Signs Vital signs: Initial Vital Signs Temperature 98.3 F 08/10/23 18:18 Temperature Source Temporal Artery Scan 08/10/23 18:18 Pulse Rate 91 08/10/23 18:18 Pulse Rhythm Regular 08/10/23 18:18 Respiratory Rate 18 11/13/23 18:18 Blood Pressure 127/79 08/10/23 18:18 Blood Pressure Mean 95 08/10/23 18:18 Blood Pressure Position Sitting 08/10/23 18:18 Pulse Oximetry 95 08/10/23 18:18 Oxygen Delivery Method Room Air 08/10/23 18:18 Vital Signs Temperature 98.3 F 08/10/23 18:18 Pulse Rate 91 08/10/23 18:18 Respiratory Rate 18 08/10/23 18:18 Blood Pressure 127/79 08/10/23 18:18 Pulse Oximetry 95 08/10/23 18:18 Oxygen Delivery Method Room Air 08/10/23 18:18 Temperature 98.3 F 08/10/23 18:18 Pulse Rate 91 08/10/23 18:18 Respiratory Rate 18 08/10/23 18:18 Blood Pressure 127/79 08/10/23 18:18 Pulse Oximetry 95 08/10/23 18:18 Oxygen Delivery Method Room Air 08/10/23 18:18 Medical Decision Making MDM Narrative Medical decision making narrative: This patient has multiple sclerosis and chronic indwelling suprapubic catheter. He comes in with some generalized malaise and wonders if he might have a urinary tract infection. His catheter has been changed every month but he has not had an antibiotic that was prescribed for him to be taken at the time the catheter was changed. He does not have any fevers and reports here with normal vital signs. Urinalysis does show some suspicion of urinary tract infections so a prescription for Keflex is provided from the [facility] machine. Lab Data Labs: Lab Results 08/10/23 Range/Units 18:55 Urine Color Yellow (Yellow) Urine Appearance Slightly Cloudy A (Clear) Urine pH 6.0 (5.0-8.5) Ur Specific [place] 1.010 (1.000-1.030) Urine Protein Negative (Negative) Urine Glucose (UA) Negative (Negative) Urine Ketones Negative (Negative) Urine Blood Trace-intact A (Negative) Urine Nitrite Negative (Negative) Urine Bilirubin Negative (Negative) Urine Urobilinogen 0.2 (0.2-1.0) Ur Leukocyte Esterase 1+ A (Negative) Urine RBC 2-5 A (0-2) Urine WBC 5-10 A (0-5) Ur Squamous Epith Cells Few (None-Few) Urine Bacteria Few A (None) Discharge Plan Discharge Clinical Impression: Urinary tract infection Patient Disposition: Home, Self-Care Condition: Stable Additional Instructions: Take medication as prescribed. Follow up with MD return if worsening. Prescriptions: No Action alendronate 70 mg tablet 70 mg PO .weekly Ocrevus 30 mg/mL solution 300 mg IV [id number] gabapentin 400 mg capsule 400 mg PO QID Patient Comments: TAKE ONE CAPSULE BY MOUTH FOUR TIMES A DAY ketoconazole 2 % shampoo 1 applic TOPICAL .twice weekly Patient Comments: APPLY TOPICALLY ONCE WEEKLY pramipexole 0.125 mg tablet 0.125 mg PO QID Patient Comments: TAKE ONE TABLET BY MOUTH FOUR TIMES A DAY baclofen 10 mg tablet 10 mg PO Q6H PRN Patient Comments: TAKE 1-2 TABLETS BY MOUTH EVERY 6 HOURS NEEDED (SPASTICITY/ACUTE INTRATHECAL BACLOFEN WITHDRAWAL) AND CALL CLINIC FOR INSTRUCTION polyethylene glycol 3350 [ClearLax] 17 gram/dose powder 17 g PO DAILY PRN Follow Up/Referrals: Provider,Not a Local [Primary Care Provider] - Stand Alone Forms: [employer] Info Instructions
[2023-08-10 19:18] LABS: Appearance Urine Slightly Cloudy (Clear); Bilirubin Urine Negative (Negative); Blood Urine Trace-intact (Negative); Color Urine Yellow (Yellow); Glucose Urine Negative (Negative); Ketones Urine Negative (Negative); Leukocyte Esterase Urine 1+ (Negative); Nitrite Urine Negative (Negative); Protein Urine Negative (Negative); Urobilinogen Urine 0.2 (0.2-1.0)
--- NOTE | 2023-08-10 19:18 | ED.NURSE ---
Urine sample obtained at y-site of catheter.
[2023-08-10 19:33] LABS: Bacteria Urine Few; Squamous Epithelial Cell Urine Few (None-Few)
== END 2023-08-10 20:48 | disposition home or self-care (01) ==
PROVIDERS: Emergency Provider Emergency Medicine Emergency Medical Services
DX: N39.0 Urinary tract infection, site not specified (principal)
CPT/HCPCS: 81001; 87086; 99283; 99284

== ENCOUNTER 2023-08-16 13:53 | Emergency (ER) | payer MEDICARE, BC, SELFPAY ==
[2023-08-16] VITALS (14 sets, daily range): BP systolic 111–134; BP diastolic 59–73; PULSE 72–80; RESP 20; TEMP 36.4–37.6; O2SAT 93–97; BMI 26.6
[2023-08-16 14:32] LABS: Appearance Urine Clear (Clear); Bilirubin Urine Negative (Negative); Blood Urine Negative (Negative); Color Urine Yellow (Yellow); Glucose Urine Negative (Negative); Ketones Urine 2+ (Negative); Leukocyte Esterase Urine Negative (Negative); Nitrite Urine Negative (Negative); Protein Urine Negative (Negative); Urobilinogen Urine 0.2 (0.2-1.0); pH Urine 6.5 (5.0-8.5)
--- OUTSIDE RECORDS SUMMARY | 2023-08-16 14:32 | XMS_ITS | Continuity of Care Document ---
Author Name Unknown Organization [facility] Address [address] [address] [place] [address] Phone Care Team Providers Care Patient Financial Services Coordinator Name Role Phone Jacob Simmons MD Unavailable Unavailable Procedures Procedure Date Colonoscopy Flex; Dx (sep Pro) 13 Colorectal Ca Scrn Not Hi Risk 13 Advance Directives Directive Yes / No Effective Date File Name No Information Encounters Encounter Description Practice Location Reason(s) For Visit Diagnoses Date Provider Providers Copied on Encounter [facility], [address] [address], [place], [place], [id number], [place] tel:[phone] [facility] No Information Troy James. [address] [facility], [facility] [address], [place], [place], [id number], [place]. tel:[phone] Referring Provider: [place], [address] [place], [address]. tel:[phone] Family History Family Member Type Diagnosis Age At Onset No Information Payers Payer name Insurance type Covered democrat ID Authoriza tion(s) [employer] Sr 16 [id number] Social History Type Description Quantity Date Captured Comments Sex Male Smoking Status No Information Chief Complaint And Reason For Visit No Information Reason For Referral Reason For Referral No Information History Of Present Illness Encounter Date Complaint History Of Prese nt Illness No Information Functional Status Date Functional Assessmen t No Information Instructions Date Instruction Additional Infor mation No Information Assessments Type Assessment Date No Information Patient Care Teams Name Effective Dates (start - stop) Status Members No Information
[2023-08-16 14:37] LABS: Lactate* 0.7 mmol/L (0.5-1.9)
[2023-08-16 14:41] LABS: Basophils Absolute Auto 0.03 K/uL (0.00-0.30); Basophils Percent Auto 0.6 % (0.0-3.0); Eosinophils Absolute Auto 0.05 K/uL (0.00-0.50); Hematocrit 45.3 % (37.0-53.0); Hemoglobin* 15.5 gm/dL (13.5-17.5); Immature Granulocytes Abs Auto 0.04 K/uL (0.00-0.30); Immature Granulocytes Pct Auto 0.8 %; Lymphocytes Percent Auto 18.4 % (20-44); Mean Corpuscular HGB Conc 34 gm/dL (32-36); Mean Corpuscular Hemoglobin 30 pg (26-34); Mean Corpuscular Volume 89 fL (80-100); Monocytes Percent Auto 10.5 % (0.0-11.0); Neutrophils Absolute Auto 3.28 K/uL (1.7-7.0); Neutrophils Percent Auto 68.7 % (42.0-72.0); Platelet Count* 211 K/uL (140-440); RDW Coefficient of Variation % 11.6 % (11.5-15.5); Red Blood Count 5.11 m/uL (4.30-5.90); White Blood Count* 4.78 K/uL (4.50-11.00)
[2023-08-16 14:44] LABS: RBC Urine 0-2 (0-2); WBC Urine 0-2 (0-5)
[2023-08-16 14:51] LABS: Slide Review Reflex No
[2023-08-16 14:58] LABS: Chloride* 101 mmol/L (96-114); Potassium* 3.8 mmol/L (3.6-5.1); Sodium* 138 mmol/L (135-149)
[2023-08-16 14:59] LABS: Albumin* 4.2 g/dL (3.3-5.0)
[2023-08-16 15:01] LABS: Creatinine* 0.6 mg/dL (0.5-1.5); Est. Creatinine Clearance* 72.53; Estimated Glomerular Filt Rate 110 ml/min
[2023-08-16 15:02] LABS: Alkaline Phosphatase* 82 U/L (40-150); Anion Gap 12 mEq/L (7-15); Aspartate Amino Transferase* 33 U/L (12-35); Bilirubin Total* 0.6 mg/dL (0.1-1.5); Blood Urea Nitrogen* 9 mg/dL (7-30); Calcium* 8.2 mg/dL (8.4-10.6); Carbon Dioxide* 25 mmol/L (20-32); Glucose* 93 mg/dL (60-115); Total Protein* 6.5 g/dL (6.0-8.3)
[2023-08-16 15:03] LABS: Alanine Aminotransferase* 52 U/L (4-50)
[2023-08-16 15:05] LABS: C Reactive Protein* 1.2 mg/dL (0.5-1.0)
--- NOTE | 2023-08-16 15:50 | ED.GENADULT ---
HPI - General Adult General Chief complaint: Diarrhea Stated complaint: Diarrhea Time Seen by Provider: 08/16/23 14:12 History of Present Illness HPI narrative: 62-year-old male with a history of MS, using a motorized wheelchair, presents today with diarrhea for 5 days. Patient states that 6 days ago he was placed on ciprofloxacin for UTI, then the diarrhea started. It makes him feel weak and tired. He denies any fevers or chills. He has had a good appetite. He denies any significant abdominal pain. He states that he cannot see what his stools look like, unsure if there was blood or not. No vomiting. Episodes of diarrhea occur approximately 3 times per day. Related Data Home Medications Medication Instructions Recorded Confirmed alendronate 70 mg tablet 70 mg PO .weekly 08/16/22 08/16/22 baclofen 10 mg tablet 10 mg PO Q6H PRN 08/16/22 08/16/22 gabapentin 400 mg capsule 400 mg PO QID 08/16/22 08/16/22 ketoconazole 2 % shampoo 1 applic topical .twice weekly 08/16/22 08/16/22 ocrelizumab 30 mg/mL intravenous 300 mg IV [id number] 08/16/22 08/16/22 solution (Ocrevus) polyethylene glycol 3350 17 17 g PO DAILY PRN 08/16/22 08/16/22 gram/dose oral powder (ClearLax) pramipexole 0.125 mg tablet 0.125 mg PO QID 08/16/22 08/16/22 Allergies Allergy/AdvReac Type Severity Reaction Status Date / Time hydromorphone [From Dilaudid] AdvReac Intermediate Vomiting Verified 08/16/22 13:48 Review of Systems Status of ROS: Reports: 10 or more systems reviewed and unremarkable except as noted in History and below PFSH PFS Social History Smoking Status: Current some day smoker Do you use any of these nicotine containing products: Vaping Products Second hand tobacco smoke exposure: No How often do you have a drink containing alcohol: never How often do you have six or more drinks on one occasion: Never AUDIT-C Alcohol total score: 0 Non-prescribed substance use: marijuana (any form) Non-prescribed substance use details: vaps thc service: No Exam Narrative: Exam Narrative: Well-nourished well-developed patient in no acute distress. Alert and oriented. Answers questions appropriately. Mood and affect are appropriate. Thoughts are goal oriented and rational. No tangential or magical thinking noted. Patient speaks in full sentences without needing to catch his breath. HEENT: Normocephalic atraumatic. Pupils are equally round reactive to light. Extraocular muscles are intact. Conjunctivae are moist without any icterus noted. Moist mucous membranes. Cardiovascular: Heart is regular rate and rhythm S1 and S2 are present without any murmurs. Lungs: Clear to auscultation bilaterally no wheezes rhonchi or rales are appreciated. Patient takes deep breaths without any discomfort. Abdomen: Soft and nontender nondistended with normal bowel sounds. No guarding or rebound. No masses or organomegaly appreciated. Suprapubic Catheter in place. Extremities: Bilateral lower extremities are without edema. Skin: Well perfused without any obvious rashes. Const: Vital Signs, click to edit/add: Vital Signs - 24 hr 08/16/23 13:59 08/16/23 14:35 08/16/23 14:36 Temperature 99.6 F Pulse Rate 76 75 Pulse Rate [Pulse Oximeter] 80 Respiratory Rate 20 Blood Pressure 130/64 Blood Pressure [Le ft Upper Arm] 134/63 Pulse Oximetry 95 93 94 Oxygen Delivery Me thod Room Air 08/16/23 14:45 08/16/23 15:00 08/16/23 15:02 Temperature Pulse Rate 72 77 76 Pulse Rate [Pulse Oximeter] Respiratory Rate Blood Pressure 118/64 Blood Pressure [Le ft Upper Arm] Pulse Oximetry 94 94 95 Oxygen Delivery Me thod 08/16/23 15:15 08/16/23 15:30 08/16/23 15:32 Temperature Pulse Rate 77 74 76 Pulse Rate [Pulse Oximeter] Respiratory Rate Blood Pressure 132/73 Blood Pressure [Le ft Upper Arm] Pulse Oximetry 95 96 96 Oxygen Delivery Me thod 08/16/23 15:45 Temperature Pulse Rate 75 Pulse Rate [Pulse Oximeter] Respiratory Rate Blood Pressure Blood Pressure [Le ft Upper Arm] Pulse Oximetry 96 Oxygen Delivery Me thod Course Course ED Course: Lab work was drawn and was unremarkable. C diff studies pending at this time. Unfortunately, patient was not able to leave a stool sample while he was in the ED today. He remains hemodynamically stable. Vital Signs Vital signs: Initial Vital Signs Temperature 99.6 F 08/16/23 13:59 Temperature Source Temporal Artery Scan 08/16/23 13:59 Pulse Rate 80 08/16/23 13:59 Pulse Rhythm Regular 08/16/23 13:59 Respiratory Rate 20 08/16/23 13:59 Blood Pressure 134/63 08/16/23 13:59 Blood Pressure Mean 86 08/16/23 13:59 Blood Pressure Position Right Lateral 08/16/23 13:59 Pulse Oximetry 95 08/16/23 13:59 Oxygen Delivery Method Room Air 08/16/23 13:59 Vital Signs Temperature 99.6 F 08/16/23 13:59 Pulse Rate 80 08/16/23 13:59 Respiratory Rate 20 08/16/23 13:59 Blood Pressure 134/63 08/16/23 13:59 Pulse Oximetry 95 08/16/23 13:59 Oxygen Delivery Method Room Air 08/16/23 13:59 Temperature 99.6 F 08/16/23 13:59 Pulse Rate 75 08/16/23 15:45 Respiratory Rate 20 08/16/23 13:59 Blood Pressure 132/73 08/16/23 15:32 Pulse Oximetry 96 08/16/23 15:45 Oxygen Delivery Method Room Air 08/16/23 13:59 Medical Decision Making MDM Narrative Medical decision making narrative: 62-year-old with diarrhea. We will send the patient home with a stool collecting kit. Returned at his convenience. The staff at [facility] will [facility] able to help him collect the sample. Lab Data Lab results reviewed: Yes I reviewed the patient's lab results Labs: Lab Results 08/16/23 08/16/23 Range/Units 14:14 14:32 WBC 4.78 (4.50-11.00) K/uL RBC 5.11 (4.30-5.90) m/uL Hgb 15.5 (13.5-17.5) gm/dL Hct 45.3 (37.0-53.0) % MCV 89 (80-100) fL MCH 30 (26-34) pg MCHC 34 (32-36) gm/dL RDW Coeff of Janette 11.6 (11.5-15.5) % Plt Count 211 (140-440) K/uL Neut % (Auto) 68.7 (42.0-72.0) % Lymph % (Auto) 18.4 L (20-44) % [place] % (Auto) 10.5 (0.0-11.0) % Eos % (Auto) 1.0 (0.0-7.0) % Baso % (Auto) 0.6 (0.0-3.0) % Neut # (Auto) 3.28 (1.7-7.0) K/uL Lymph # (Auto) 0.90 (0.90-2.90) K/uL [place] # (Auto) 0.50 (0.00-0.90) K/UL Eos # (Auto) 0.05 (0.00-0.50) K/uL Baso # (Auto) 0.03 (0.00-0.30) K/uL Abs Immat Gran (auto) 0.04 (0.00-0.30) K/uL Imm/Tot Granulo (auto) 0.8 % Sodium 138 (135-149) mmol/L Potassium 3.8 (3.6-5.1) mmol/L Chloride 101 (96-114) mmol/L Carbon Dioxide 25 (20-32) mmol/L Anion Gap 12 (7-15) mEq/L BUN 9 (7-30) mg/dL Creatinine 0.6 (0.5-1.5) mg/dL Estimated Creat Clear 72.53 Estimated GFR 110 ml/min Glucose 93 (60-115) mg/dL Lactate 0.7 (0.5-1.9) mmol/L Calcium 8.2 L (8.4-10.6) mg/dL Total Bilirubin 0.6 (0.1-1.5) mg/dL Direct Bilirubin 0.0 (0.0-0.5) mg/dL AST 33 (12-35) U/L ALT 52 H (4-50) U/L Alkaline Phosphatase 82 (40-150) U/L C-Reactive Protein 1.2 H (0.5-1.0) mg/dL Total Protein 6.5 (6.0-8.3) g/dL Albumin 4.2 (3.3-5.0) g/dL Urine Color Yellow (Yellow) Urine Appearance Clear (Clear) Urine pH 6.5 (5.0-8.5) Ur Specific [place] 1.010 (1.000-1.030) Urine Protein Negative (Negative) Urine Glucose (UA) Negative (Negative) Urine Ketones 2+ A (Negative) Urine Blood Negative (Negative) Urine Nitrite Negative (Negative) Urine Bilirubin Negative (Negative) Urine Urobilinogen 0.2 (0.2-1.0) Ur Leukocyte Esterase Negative (Negative) Urine RBC 0-2 (0-2) Urine WBC 0-2 (0-5) Ur Squamous Epith Cells None (None-Few) Urine Bacteria None (None) Discharge Plan Discharge Clinical Impression: Diarrhea Patient Disposition: Home, Self-Care Condition: Stable Additional Instructions: Make sure to increase oral hydration. Patient is sent home with a stool collecting kit. Please collect stool sample per directions and returning your convenience. Prescriptions: No Action alendronate 70 mg tablet 70 mg PO .weekly Ocrevus 30 mg/mL solution 300 mg IV [id number] gabapentin 400 mg capsule 400 mg PO QID Patient Comments: TAKE ONE CAPSULE BY MOUTH FOUR TIMES A DAY ketoconazole 2 % shampoo 1 applic TOPICAL .twice weekly Patient Comments: APPLY TOPICALLY ONCE WEEKLY pramipexole 0.125 mg tablet 0.125 mg PO QID Patient Comments: TAKE ONE TABLET BY MOUTH FOUR TIMES A DAY baclofen 10 mg tablet 10 mg PO Q6H PRN Patient Comments: TAKE 1-2 TABLETS BY MOUTH EVERY 6 HOURS NEEDED (SPASTICITY/ACUTE INTRATHECAL BACLOFEN WITHDRAWAL) AND CALL CLINIC FOR INSTRUCTION polyethylene glycol 3350 [ClearLax] 17 gram/dose powder 17 g PO DAILY PRN Follow Up/Referrals: Provider,Not a Local [Primary Care Provider] - Stand Alone Forms: [employer] Info Instructions
== END 2023-08-16 19:18 | disposition home or self-care (01) ==
PROVIDERS: Emergency Provider Family Medicine
DX: R19.7 Diarrhea, unspecified (principal); G35 Multiple sclerosis
CPT/HCPCS: 36415; 80048; 80076; 81001; 83605; 85025; 86140; 87086; 87493; 99283; 99284

== ENCOUNTER 2023-08-16 19:12 | Outpatient (CLI) | payer MEDICARE, BC, SELFPAY | END 2023-08-16 19:13 | disposition home or self-care (01) | PROVIDERS: Visit Provider Emergency Medicine | DX: R19.7 Diarrhea, unspecified (principal) | CPT/HCPCS: A0425; A0428 ==

== ENCOUNTER 2024-02-06 14:29 | Emergency (ER) | payer MEDICARE, BC, SELFPAY ==
[2024-02-06 14:33] VITALS: BP 121/69; PULSE 78; RESP 16; TEMP 36.6; O2SAT 93; BMI 26.2
--- NOTE | 2024-02-06 14:45 | ED.GENADULT ---
HPI - General Adult General Chief complaint: Skin/Abscess/Foreign Body Stated complaint: Red, swollen, painful rash on face-PCP cellulitis Time Seen by Provider: 02/06/24 14:30 History of Present Illness HPI narrative: Patient is a 63-year-old white male who has MS who is in a wheelchair, lives in assisted living. He has had a rash for few days on his face in the folds of his nose and cheeks and to his forehead. He has had this before it usually responds to 1% hydrocortisone but has not this time. He has had some burning feeling and some itching. Some scaling of the area. He has not had lupus or other vascular concern by his report. It is somewhat itchy as mentioned. He has had no fevers or chills. No new medication changes or topical allergen exposure to his knowledge. Related Data Home Medications Medication Instructions Recorded Confirmed baclofen 10 mg tablet 10 mg PO Q6H PRN 08/16/22 02/06/24 gabapentin 400 mg capsule 400 mg PO QID 08/16/22 02/06/24 ketoconazole 2 % shampoo 1 applic topical .twice weekly 08/16/22 08/16/22 polyethylene glycol 3350 17 17 g PO DAILY PRN 08/16/22 02/06/24 gram/dose oral powder (ClearLax) pramipexole 0.125 mg tablet 0.125 mg PO QID 08/16/22 02/06/24 carbamazepine 200 mg 200 mg PO BID 02/06/24 02/06/24 tablet,extended release,12 hr Previous Rx's Medication Instructions Recorded ketoconazole 2 % topical cream 1 applic topical DAILY 10 days #15 02/06/24 grams triamcinolone acetonide 0.1 % 1 applic topical TID 10 days #15 02/06/24 topical cream grams Allergies Allergy/AdvReac Type Severity Reaction Status Date / Time hydromorphone [From Dilaudid] AdvReac Intermediate Vomiting Verified 08/16/22 13:48 Review of Systems Status of ROS: Reports: 6 or more systems reviewed and unremarkable except as noted in History and below [facility] Social History Smoking Status: Current some day smoker Do you use any of these nicotine containing products: Vaping Products Second hand tobacco smoke exposure: No How often do you have a drink containing alcohol: never How often do you have six or more drinks on one occasion: Never AUDIT-C Alcohol total score: 0 Non-prescribed substance use: marijuana (any form) Non-prescribed substance use details: vaps thc service: No Exam Narrative: Exam Narrative: Objective: Patient's vital signs are within normal limits He has got a rash that is reddened and scaling over his lateral to his nose cheek area and into his forehead. No vesicles noted, no blistering, does not appear to be a burn. No other facial abnormalities noted Patient is alert orient x3 and in good spirits. Const: Vital Signs, click to edit/add: Vital Signs - 24 hr 02/06/24 14:33 02/06/24 15:00 Temperature 98 F 98 F Pulse Rate [Pulse Oximeter] 78 78 Respiratory Rate 16 16 Blood Pressure [Ri ght Upper Arm] 121/69 121/69 Pulse Oximetry 93 Oxygen Delivery Me thod Room Air Course Vital Signs Vital signs: Initial Vital Signs Temperature 98 F 02/06/24 14:33 Temperature Source Temporal Artery Scan 02/06/24 14:33 Pulse Rate 78 02/06/24 14:33 Respiratory Rate 16 02/06/24 14:33 Blood Pressure 121/69 02/06/24 14:33 Blood Pressure Mean 86 02/06/24 14:33 Blood Pressure Position Sitting 02/06/24 14:33 Pulse Oximetry 93 02/06/24 14:33 Oxygen Delivery Method Room Air 02/06/24 14:33 Vital Signs Temperature 98 F 02/06/24 14:33 Pulse Rate 78 02/06/24 14:33 Respiratory Rate 16 02/06/24 14:33 Blood Pressure 121/69 02/06/24 14:33 Pulse Oximetry 93 02/06/24 14:33 Oxygen Delivery Method Room Air 02/06/24 14:33 Temperature 98 F 02/06/24 15:00 Pulse Rate 78 02/06/24 15:00 Respiratory Rate 16 02/06/24 15:00 Blood Pressure 121/69 02/06/24 15:00 Pulse Oximetry 93 02/06/24 14:33 Oxygen Delivery Method Room Air 02/06/24 14:33 Medical Decision Making MDM Narrative Medical decision making narrative: Patient is a 63 year white male with MS who is in a wheelchair with a facial allergic-type rash, but also a couple of satellite lesions on his forehead that her individual raised reddened papular type rash that could be certainly a satellite lesion from a fungal infection. His presentation actually looks like an allergic dermatitis with a fungal component. I think at this point he would benefit from some topical triamcinolone t.i.d. and some 2% Nizoral q.h.s. for the next 7-10 days. Discussed with him that this would cause some increased burning perhaps as he applies the medication for the 1st day or 2 and then it should start improving, recheck with your regular doctor next 3-4 days not better or return to ED if problems or concerns. At this point I do not think this constitutes cellulitis or other infectious illness and I think he will do well with a topical medication. Discharge Plan Discharge Clinical Impression: Facial rash Patient Disposition: Home w/ Parent or Adult Condition: Stable Additional Instructions: Apply topical creams as prescribed, recheck with regular doctor next 4-5 days not improving changes concerns can return to the ED. Activity Level: No Restrictions Discharge Diet: Regular Prescriptions: New ketoconazole 2 % cream 1 applic topical DAILY 10 Days Qty: 15 0RF triamcinolone acetonide 0.1 % cream 1 applic topical TID 10 Days Qty: 15 0RF No Action gabapentin 400 mg capsule 400 mg PO QID Patient Comments: TAKE ONE CAPSULE BY MOUTH FOUR TIMES A DAY ketoconazole 2 % shampoo 1 applic TOPICAL .twice weekly Patient Comments: APPLY TOPICALLY ONCE WEEKLY pramipexole 0.125 mg tablet 0.125 mg PO QID Patient Comments: TAKE ONE TABLET BY MOUTH FOUR TIMES A DAY baclofen 10 mg tablet 10 mg PO Q6H PRN Patient Comments: TAKE 1-2 TABLETS BY MOUTH EVERY 6 HOURS NEEDED (SPASTICITY/ACUTE INTRATHECAL BACLOFEN WITHDRAWAL) AND CALL CLINIC FOR INSTRUCTION polyethylene glycol 3350 [ClearLax] 17 gram/dose powder 17 g PO DAILY PRN carbamazepine 200 mg tablet extended release 12 hr 200 mg PO BID Follow Up/Referrals: Provider,Not a Local [Primary Care Provider] - Stand Alone Forms: [employer] Info Instructions
[2024-02-06 15:00] VITALS: BP 121/69; PULSE 78; RESP 16; TEMP 36.6
--- OUTSIDE RECORDS SUMMARY | 2024-02-06 15:04 | XMS_ITS | Clinical Summary ---
Author Name Unknown Organization [facility] Address [address] [place] [address] Care Team Providers Care Scorekeeper Name Role Phone Teresita Garcia MD Primary Care Provider [phone] Fred Ovalle MD Unavailable Teresita Garcia MD Unavailable Fred Ovalle MD Unavailable Chris Mcmahan MD Unavailable [phone] Dax Menon MD Unavailable Allergies Active Allergy Reactions Criticality Noted Date Comments Hydromorphone Nausea and Vomiting 09/15/2014 Pollen Extract 01/22/2011 Medications Medication Sig Dispensed Refills Start Date End Date Status Docusate Sodium (COLACE PO) Take 100 mg by mouth 2 times daily as needed for constipation Active polyethylene glycol (MIRALAX) powder Take 17 g by mouth daily as needed Active gabapentin (NEURONTIN) 400 MG capsule Take 400 mg by mouth 4 times daily At 10am, 4:00pm, 10pm and 4:00 am 04/12/2021 Active pramipexole (MIRAPEX) 0.125 MG tablet Take 0.125 mg by mouth 4 times daily At 12am, 0600, 12pm and 1800 04/12/2021 Active ketoconazole (NIZORAL) 2 % external shampooIndications :Seborrheic dermatitis of scalp APPLY TOPICALLY ONCE WEEKLY 360 mL 3 05/14/2022 Active carBAMazepine (TEGRETOL XR) 200 MG 12 hr tablet Take 200 mg by mouth 2 times daily At 1200 & midnight Active medication given by implanted intrathecal pump continuous Drug # 1: Baclofen (Lioresal) - Conc:500 mcg/mL - Total Dose / 24 hours: 46.13 mcg Pump [place] Volume: 20 mL Outside Clinic & Provider: Argelia Aguilar MD, Last Refill Date: 09/26/2022 Next Refill Date: 1-2 weeks before alarm goes off (no appointment was set up yet as of 02/22/2023). Low [place] Alarm Date: 03/25/2023 Pump Type: Synchromed II For [place]: If pump is within 7 days of depletion, pharmacist will enter a 'Pain Management Adult IP Consult' into the EHR, including 'IT pain pump management' as the reason for the consult. Active ciprofloxacin (CIPRO) 500 MG tabletIndications: Prophylactic antibiotic Take 1 tablet (500 mg) by mouth as needed (Take One) Take one pill today and take one with each catheter change Monthly 3 tablet 4 08/04/2023 Active acetaminophen (TYLENOL) 500 MG tabletIndications: Acute midline low back pain without sciatica Take 2 tablets (1,000 mg) by mouth every 8 hours as needed for pain 100 tablet 1 11/18/2023 Active Active Problems Problem Noted Date Diagnosed Date Tachycardia 02/21/2023 Recurrent UTI 02/21/2023 Last Assessment & Plan: Pt is still having pain in the lower part of the lower back, worse when he leans back against, I think his symptoms are musculoskeletal in nature. Pt was treated for UTI with Nitrofurantoin, I recommend to change rivera cath after UTI is resolved. Presence of intrathecal baclofen pump 05/25/2021 Suprapubic catheter 05/25/2021 Family history of ischemic heart disease 019 Neurogenic bladder 03/11/2019 Neurogenic bowel 03/11/2019 Overview: Overview: constipation Venous stasis 11/24/2017 Osteoporosis 01/20/2017 Overview: In the spine. Latest Dexa scan is showing no osteoporosis on 04/2023, will stop Alendronate weekly. 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 Provider to review and confirm.) Geho-Mxzai-Bvbfyxb disease 05/14/2011 Atopic rhinitis 05/14/2011 Overview: (Problem list name updated by automated process. Provider to review and confirm.) Last Assessment & Plan: Causing significant nasal discharge, uses flonase 2 puffs daily with good results. 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 Polyosteoarthritis, unspecified 03/22/2003 Spastic paresis Resolved Problems Problem Noted Date Diagnosed Date Resolved Date Fever, unspecified fever cause 02/21/2023 05/08/2023 Urinary tract infection asso ciated with indwelling urethral catheter, initial encounter (H24) 12/02/2022 05/08/2023 Lab test positive for detect ion of COVID-19 virus 04/04/2021 05/08/2023 Baclofen pump failure 03/10/20112023 Mild major depression 12/13/20102016 CARDIOVASCULAR SCREENING; LD L GOAL LESS THAN 160 07/28/2010 06/26/2020 Other, mixed, or unspecified nondependent drug abuse, unspecified 11/11/2005 12/13/2010 Depressive disorder, not elsewhere classified 09/16/20 05 12/13/2010 [email or web address] 08/11/2005 09/04/2005 Encounters Date Type Department Care Team Description 02/05/[address] [phone] Teresita Garcia MD 02/05/2024 [facility] Medical Advice [address] [phone] Teresita Garcia MD Derm Problem 02/05/[address] [address] Teresita Garcia MD Derm Problem 01/14/[address] [phone] Teresita Garcia MD Home Care/Hospice 12/31/[address] [phone] Teresita Garcia MD Home Care/Hospice 11/26/2023 11:30 AM AIR CONDITIONING MECHANIC Office Visit [address] [phone] Teresita Garcia MD Encounter for Medicare annual wellness exam (Primary Dx); Screen for colon cancer; Major depressive disorder, single episode, mild (H24); MS (multiple sclerosis) (H); Recurrent UTI; Non-seasonal allergic rhinitis, unspecified trigger 11/26/2023 Orders Only (auto-released) [address] [address] Teresita Garcia MD Screen for colon cancer 11/26/2023 Travel 11/25/2023 Travel 11/18/2023 11:00 AM AIR CONDITIONING MECHANIC Office Visit [address] [phone] Albina Andujar, DEVORAH Acute midline low back pain without sciatica (Primary Dx); Functional quadriplegia secondary to MS (H); Suprapubic catheter (H); Nausea; Acute cystitis without hematuria 11/18/2023 Travel 11/17/2023 Travel from Last 3 Months Immunizations Name Administration Dates Next Due COVID-19 12+ (2022-) (MODERNA) 09/07/2023 COVID-19 Bivalent 12+ (Pfizer) 09/10/2022 COVID-19 MONOVALENT 12+ (Pfizer) 08/26/2021,05/0 01/2021 COVID-19 Monovalent 18+ (Moderna) 08/26/2021,01/2021 COVID-19 Vaccine (Curly) 01/30/2021 Flu, Unspecified 06/25/2023,06/25/2021, Influenza (IIV3) PF 06/13/2012,07/05/2010 Influenza Vaccine 18-64 (Flublok) 06/14/2021, Influenza Vaccine >6 months,quad, PF ,06/09/2018,09/25/2017,2016,07/27/2016,06/26/2015 Influenza,INJ,MDCK,PF,Quad >6mo(Flucelvax) 06/26/2022 Pneumococcal 20 valent Conju gate (Prevnar 20) 11/26/2023 Pneumococcal 23 valent 05/20/2011 RSV Vaccine (Arexvy) 06/25/2023 TDAP (Adacel,Boostrix) 06/14/2021 TDAP Vaccine (Adacel) 12/13/2010 Zoster recombinant adjuvante d (SHINGRIX) 01/12/2023,10/13/2022 Family History Medical History Relation Comments C.A.D. Father Triple bypass Cerebrovascular Disease Father Hyperlipidemia Father Hypertension Father Neurologic Disorder Mother Had MS in 1970 [...] 0 (1 standard drink = 0.6 oz pur e alcohol) socially Social Connection and Isolat ion Panel [NHANES] Answer Date Recorded In a typical week, how many times do you talk on the phone with family, friends, or neighbors? More than three times a week 11/26/2023 How often do you get togethe r with friends or relatives? More than three times a week 11/26/2023 How often do you attend chur or gnosticism services? Never 11/26/2023 Do you belong to any clubs o r organizations such as alevism groups, unions, fraternal or athletic groups, or school groups? No 11/26/2023 How often do you attend meet ings of the clubs or organizations you belong to? Never 11/26/2023 Are you , , di vorced, , never , or living with a partner? Never 11/26/2023 AUDIT-C Answer Date Recorded Q1: How often do you have a drink containing alcohol? Never 11/26/2023 Q2: How many drinks containi ng alcohol do you have on a typical day when you are drinking? Patient does not drink Q3: How often do you have si x or more drinks on one occasion? Never 11/26/2023 PHQ-2 Answer Date Recorded PHQ-2 Score 0 11/26/2023 [facility] Answer Date Recorded Do you feel stress - tense, restless, nervous, or anxious, or unable to sleep at night because your mind is troubled all the time - these days? Only a little 11/26/2023 Exercise Vital Sign Answer Date Recorde d On average, how many days pe r week do you engage in moderate to strenuous exercise (like a brisk walk)? 0 days 11/26/2023 On average, how many minutes do you engage in exercise at this level? 0 min 11/26/2023 Adolescent Education Answer Date Record ed Getting School Help Needed Not on file 06/19 Food Insecurity Answer Date Recorded Within the past 12 months, d id you worry that your food would run out before you got money to buy more? No 11/26/2023 Within the past 12 months, d id the food you bought just not last and you didn? t have money to get more? No 11/26/2023 Housing Stability Answer Date Recorded Do you have housing? Yes 11/26/2023 Are you worried about losing your housing? No 11/26/2023 Financial Resource Strain Answer Date R ecorded Within the past 12 months, h ave you or your family members you live with been unable to get utilities (heat, electricity) when it was really needed? No 11/26/2023 Transportation Needs Answer Date Record ed Within the past 12 months, h as lack of transportation kept you from medical appointments, getting your medicines, non-medical meetings or appointments, work, or from getting things that you need? Yes 11/26/2023 Interpersonal Safety Answer Date Record ed Do you feel physically and e motionally safe where you currently live? Yes 11/18/2023 Within the past 12 months, h ave you been hit, slapped, kicked or otherwise physically hurt by someone? No 11/18/2023 Within the past 12 months, h ave you been humiliated or emotionally abused in other ways by your partner or ex-partner? No 11/18/2023 Sex and Gender Information Value Date Recorded Sex Assigned at Male 06/10/2021 1:42 PM CDT Gender Identity Male 06/10/2021 1:42 PM CDT Sexual Orientation Straight 06/10/2021 1: 42 PM CDT Last Filed Vital Signs Vital Sign Reading Time Taken Comments Blood Pressure 109/68 11/26/2023 10:52 AM AIR CONDITIONING MECHANIC Pulse 73 11/26/2023 10:52 AM AIR CONDITIONING MECHANIC Temperature 36.7 ??C (98.1 ??F) 11/26/2023 1 0:52 AM AIR CONDITIONING MECHANIC Respiratory Rate 12 11/26/2023 10:5 2 AM AIR CONDITIONING MECHANIC Oxygen Saturation 94% 11/26/2023 10: 52 AM AIR CONDITIONING MECHANIC Inhaled Oxygen Concentration - - Weight 75.8 kg (167 lb) 11/26/2023 10:5 2 AM AIR CONDITIONING MECHANIC wheel chair bound Height 170.2 cm (5' 7) 11/26/2023 10:5 2 AM AIR CONDITIONING MECHANIC Body Mass Index 26.16 11/26/2023 10:52 AM AIR CONDITIONING MECHANIC Plan of Treatment Health Maintenance Due Date Last Done Comments CT COLONOGRAPHY 1961 FIT 1961 FLEX SIG 1961 COLONOSCOPY 07/29/2023 07/29/2013, 09/0 12/2012, 06/01/2013 PHQ-9 05/26/2024 11/26/2023, 10/30, 05/08/2023, Additional history exists ANNUAL REVIEW OF HM ORDERS 11/25/2024 11/26/2023, MEDICARE ANNUAL WELLNESS VISIT 11/25/2024 11/26/2023, 06/14/2021, 06/26/2020, Additional history exists DEXA 05/01/2026 05/01/2023, 0 12/2022, 04/04/2020, Additional history exists GLUCOSE 11/18/2026 11/18/2023, 04/29, 04/27/2023, Additional history exists COLORECTAL CANCER SCREENING 12/15/2026 sDNA (Cologuard) 12/15/2026 12/16/2023 LIPID 04/06/2028 04/06/2023, 09/29, 12/13/2010 ADVANCE CARE PLANNING 11/25/2028 11/26/2023 , 05/25/2023, 05/08/2023, Additional history exists DTAP/TDAP/TD IMMUNIZATION (3 - Td or Tdap) 06/14/2031 06/14/2021, 12/13/2010 HIV SCREENING Completed 04/28/2006 HEPATITIS C SCREENING Completed 09/03/2017, 017 DEPRESSION ACTION PLAN Completed 8, 10/17/2016, 09/15/2014, Additional history exists ZOSTER IMMUNIZATION Completed 01/12/2023, 3 INFLUENZA VACCINE Completed 06/25/2023, , 06/25/2021, Additional history exists RSV VACCINE ( & 60+) Completed 06/25/2023 COVID-19 Vaccine Completed 09/07/2023, , 03/12/2022, Additional history exists Pneumococcal Vaccine: Pediatrics (0 to 5 Years) and At-Risk Patients (6 to 64 Years) Completed 11/26/2023, 05/20/2011 HPV IMMUNIZATION Aged Out No longer e ligible based on patient's age to complete this topic IPV IMMUNIZATION Aged Out No longer e ligible based on patient's age to complete this topic MENINGITIS IMMUNIZATION Aged Out No l onger eligible based on patient's age to complete this topic RSV MONOCLONAL ANTIBODY Aged Out No l onger eligible based on patient's age to complete this topic Medical Devices Implanted Type Area Air Conditioning Unit Tester Device Identifier Shelf Expiration Date Model / Serial / Lot Right Hip Replacement Metallic Hardware/Anc hor Right: Hip Left Hip Replacement Metallic Hardware/Anc hor Left: Hip Procedures Procedure Name Priority Date/Time Associated Diagnosis Comments COLOGUARD(Neurolink) Routine 12/16/2023 1:30 PM CDT Screen for colon cancer URINE CULTURE Routine 11/18/2023 11:54 AM AIR CONDITIONING MECHANIC Acute midline low back pain without sciatica URINE MICROSCOPIC EXAM Routine 11/18/2023 11:54 AM AIR CONDITIONING MECHANIC Acute midline low back pain without sciatica UA MACROSCOPIC WITH REFLEX TO MICRO AND CULTURE Routine 11/18/2023 11:54 AM AIR CONDITIONING MECHANIC Acute midline low back pain without sciatica CBC WITH PLATELETS Routine 11/18/2023 11 :45 AM AIR CONDITIONING MECHANIC Acute midline low back pain without sciatica BASIC METABOLIC PANEL Routine 11/18/2023 11:45 AM AIR CONDITIONING MECHANIC Acute midline low back pain without sciatica DX PERIPHERAL WRIST Routine 05/01/2023 1 :57 PM CDT Osteoporosis without current pathological fracture, unspecified osteoporosis type LIPID REFLEX TO DIRECT LDL PANEL Routine 04/06/2023 11:37 AM CDT Screening for hyperlipidemia HEPATITIS C (HIM EXTERNAL RESULT) Routine 09/03/2017 HCL HIV 1 & 2 ANTIBODY Routine 04/28/2006 2:22 PM CDT Screening For Veneral Dis HCL CONVENTIONAL SLIDE PAP SCREEN Routine 12/18/2000 Gynecologic Examination from Last 3 Months or Most Recently Relevant to Health Maintenance Results * COLOGUARD(Neurolink) (12/16/2023 1:30 PM CDT) COLOGUARD-ABSTRACT Negative Negative 2023 4:51 AM CDT [facility] (IA #:[id number]) Comment: NEGATIVE TEST RESULT. A negative Cologuard result indicates a low likelihood that a colorectal cancer (CRC) or advanced adenoma (adenomatous polyps with more advanced pre-malignant features) ??is present. The chance that a person with a negative Cologuard test has a colorectal cancer is less than 1 in 1500 (negative predictive value >99.9%) or has an ??advanced adenoma is less than ??5.3% (negative predictive value 94.7%). These data are based on a prospective cross-sectional study of 10,000 individuals at average risk for colorectal cancer who were screened with both Cologuard and colonoscopy. (Angelica Anderson al, N Engl J Med 2014;370(14):1286- 1297) The normal value (reference range) for this assay is negative. COLOGUARD RE-SCREENING RECOMMENDATION: Periodic colorectal cancer screening is an important part of preventive healthcare for asymptomatic individuals at average risk for colorectal cancer. ??Following a negative Cologuard result, the [place] [employer] Society and U.S. Multi-Society Task Force screening guidelines recommend a Cologuard re-screening interval of 3 years. References: [place] [employer] Guideline for Colorectal Cancer Screening: https://www.cancer.org/cancer/lnzgd-tvqzxc-uvujwf/oqpiqnitz-wofoczfoc-irwzoxk/ac s-rec ommendations.html.; Jose DK, Ferny LOVE, Jono PulidoK, Colorectal Cancer Screening: Recommendations for Physicians and Patients from the U.S. Multi-Society Task Force on Colorectal Cancer Screening , Am J Gastroenterology 2017; 112:6752-0807. TEST DESCRIPTION: Composite algorithmic analysis of stool DNA-biomarkers with hemoglobin immunoassay. ?? Quantitative values of individual biomarkers are not reportable and are not associated with individual biomarker result reference ranges. Cologuard is intended for colorectal cancer screening of adults of either sex, 45 years or older, who are at average-risk for colorectal cancer (CRC). Cologuard has been approved for use by the U.S. FDA. The performance of Cologuard was established in a cross sectional study of average-risk adults aged 50-84. Cologuard performance in patients ages 45 to 49 years was estimated by sub-group analysis of near-age groups. Colonoscopies performed for a positive result may find as the most clinically significant lesion: colorectal cancer [4.0%], advanced adenoma (including sessile serrated polyps greater than or equal to 1cm diameter) [20%] or non- advanced adenoma [31%]; or no colorectal neoplasia [45%]. These estimates are derived from a prospective cross-sectional screening study of 10,000 individuals at average risk for colorectal cancer who were screened with both Cologuard and colonoscopy. (Angelica Gil et al, N Engl J Med 2014;370(14):6570-1828.) Cologuard may produce a false negative or false positive result (no colorectal cancer or precancerous polyp present at colonoscopy follow up). A negative Cologuard test result does not guarantee the absence of CRC or advanced adenoma (pre-cancer). The current Cologuard screening interval is every 3 years. ([place] [employer] and U.S. Multi-Society Task Force). Cologuard performance data in a 10,000 patient pivotal study using colonoscopy as the reference method can be accessed at the following location: www.HungerTime/results. Additional description of the Cologuard test process, warnings and precautions can be found at www.[employer].com. Stool specimen (specimen) 12/16/2023 1:30 PM CDT 12/18/2023 9:58 AM CDT Teresita Garcia MD LABORATORY [facility] [address] [place] [address], [facility] [phone] [facility] (CLIA #:[id number]) [address] [place] [address] * (ABNORMAL) UA Macroscopic with reflex to Microscopic and Culture - Lab Collect (11/18/2023 11:54 AMCST) Color Urine Yellow Colorless, Straw, Light Yellow, Yellow 11/18/2023 12:03 PM AIR CONDITIONING MECHANIC CR LABORATORY Appearance Urine Clear Clear 11/18/19 12:03 PM AIR CONDITIONING MECHANIC CR LABORATORY Glucose Urine Negative Negative mg/dL 11/18/2023 12:03 PM AIR CONDITIONING MECHANIC CR LABORATORY Bilirubin Urine Negative Negative 12:03 PM AIR CONDITIONING MECHANIC CR LABORATORY Ketones Urine >=160(A) Negative mg/dL 11/18/2023 12:03 PM AIR CONDITIONING MECHANIC CR LABORATORY Specific [place] Urine 1.010 1.003 - 1.035 11/18/2023 12:03 PM AIR CONDITIONING MECHANIC CR LABORATORY Blood Urine Negative Negative 11/18/2023 12:03 PM AIR CONDITIONING MECHANIC CR LABORATORY pH Urine 6.0 5.0 - 7.0 11/18/2023 12:03 PM AIR CONDITIONING MECHANIC CR LABORATORY Protein Albumin Urine Negative Negative mg/dL 11/18/2023 12:03 PM AIR CONDITIONING MECHANIC CR LABORATORY Urobilinogen Urine 0.2 0.2, 1.0 E.U./dL 11/18/2023 12:03 PM AIR CONDITIONING MECHANIC CR LABORATORY Nitrite Urine Negative Negative 11/18/2023 12:03 PM AIR CONDITIONING MECHANIC CR LABORATORY Leukocyte Esterase Urine Moderate(A) Negative 11/18/2023 12:03 PM AIR CONDITIONING MECHANIC CR LABORATORY Urine URINE SPECIMEN FROM URINARY CONDUIT / Unknown Non-blood Collection / Unknown 11/18/2023 11:54 AM AIR CONDITIONING MECHANIC 11/18/2023 11:54 AM AIR CONDITIONING MECHANIC Albina Andujar PA-C LAB - URINE GILA HALLIES CR LABORATORY [facility] [address] [facility] (no room number, 1st floor of clinic) [place] [address], [facility] [phone] * (ABNORMAL) Urine Microscopic Exam (11/18/2023 11:54 AM AIR CONDITIONING MECHANIC) Bacteria Urine Few(A) None Seen /HPF TAHIR 11/18/2023 12:09 PM AIR CONDITIONING MECHANIC CR LABORATORY RBC Urine None Seen 0-2 /HPF /HPF TAHIR 11/18/2023 12:09 PM AIR CONDITIONING MECHANIC CR LABORATORY WBC Urine 10-25(A) 0-5 /HPF /HPF TAHIR 11/18/2023 12:09 PM AIR CONDITIONING MECHANIC CR LABORATORY WBC Clumps Urine Present(A) None Seen /HPF TAHIR 11/18/2023 12:09 PM AIR CONDITIONING MECHANIC CR LABORATORY Mucus Urine Present(A) None Seen /LPF TAHIR 11/18/2023 12:09 PM AIR CONDITIONING MECHANIC CR LABORATORY Urine URINE SPECIMEN FROM URINARY CONDUIT / Unknown Non-blood Collection / Unknown 11/18/2023 11:54 AM AIR CONDITIONING MECHANIC 11/18/2023 11:54 AM AIR CONDITIONING MECHANIC Albina Andujar PA-C LAB - URINE ORDERA BLES CR LABORATORY [facility] [address] [facility] (no room number, 1st floor of [facility]) [place] [address], [facility] [phone] * (ABNORMAL) Urine Culture (11/18/2023 11:54 AM AIR CONDITIONING MECHANIC) Culture 10,000-50,000 CFU/mL Enterococcus faecalis(A) TAHIR 11/21/2023 4:33 AM AIR CONDITIONING MECHANIC [facility] Culture 10,000-50,000 CFU/mL Enterococcus faecalis(A) 11/21/2023 4:33 AM AIR CONDITIONING MECHANIC [facility] Urine URINE SPECIMEN FROM URINARY CONDUIT / Unknown Non-blood Collection / Unknown 11/18/2023 11:54 AM AIR CONDITIONING MECHANIC 11/18/2023 12:03 PM AIR CONDITIONING MECHANIC Narrative Organism Antibiotic Method Susceptibility Enterococcus faecalis Ampicillin TAHIR <=2 ug/mL: Susceptible Enterococcus faecalis Vancomycin TAHIR 1 ug/mL: Susceptible Enterococcus faecalis Nitrofurantoin TAHIR <=16 ug/mL: Susceptible Enterococcus faecalis Ampicillin TAHIR <=2 ug/mL: Susceptible Enterococcus faecalis Vancomycin TAHIR 1 ug/mL: Susceptible Enterococcus faecalis Nitrofurantoin TAHIR <=16 ug/mL: Susceptible Albina Andujar PA-C LAB - MICRO GENERA L ORDERABLES [facility]ORAT[facility] [address] [facility] [place] [address], [place] [phone] * (ABNORMAL) Basic metabolic panel (Ca, Cl, CO2, Creat, Gluc, K, Na, BUN) (11/18/2023 11:45 AM AIR CONDITIONING MECHANIC) Sodium 137 135 - 145 mmol/L 11/18/2023 9:09 PM AIR CONDITIONING MECHANIC [facility] Comment:Reference intervals for this test were updated on 06/23/2023 to more accurately reflect our healthy population. There may be differences in the flagging of prior results with similar values performed with this method. Interpretation of those prior results can be made in the context of the updated reference intervals. Potassium 4.0 3.4 - 5.3 mmol/L 11/18/2023 9:09 PM AIR CONDITIONING MECHANIC [facility] Chloride 101 98 - 107 mmol/L 11/18/2023 9:09 PM AIR CONDITIONING MECHANIC [facility] Carbon Dioxide (CO2) 25 22 - 29 mmol/L 11/18/2023 9:09 PM AIR CONDITIONING MECHANIC [facility] Anion Gap 11 7 - 15 mmol/L 11/18/2023 9:09 PM AIR CONDITIONING MECHANIC [facility] Urea Nitrogen 7.5(L) 8.0 - 23.0 mg/dL 11/18/2023 9:09 PM AIR CONDITIONING MECHANIC [facility] Creatinine 0.74 0.67 - 1.17 mg/dL 11/18/2023 9:09 PM AIR CONDITIONING MECHANIC [facility] GFR Estimate >90 >60 mL/min/1. 73m2 11/18/2023 9:09 PM AIR CONDITIONING MECHANIC [facility] Calcium 9.1 8.8 - 10.2 mg/dL 11/18/2023 9:09 PM AIR CONDITIONING MECHANIC [facility] Glucose 93 70 - 99 mg/dL 11/18/2023 9:09 PM AIR CONDITIONING MECHANIC [facility] Blood BLOOD SPECIMEN / Unknown Venipuncture / Unknown 11/18/2023 11:45 AM AIR CONDITIONING MECHANIC 11/18/2023 11:45 AM AIR CONDITIONING MECHANIC Albina Andujar PA-C LAB - BLOOD ORDERA BLES [facility] [address] [facility] [place] [address], [facility] [phone] * CBC with platelets (11/18/2023 11:45 AM AIR CONDITIONING MECHANIC) WBC Count 4.8 4.0 - 11.0 10e3/uL 11/18/2023 11:47 AM AIR CONDITIONING MECHANIC CR LABORATORY RBC Count 5.19 4.40 - 5.90 10e6/uL 11/18/2023 11:47 AM AIR CONDITIONING MECHANIC CR LABORATORY Hemoglobin 16.1 13.3 - 17.7 g/dL 11/18/2023 11:47 AM [employer] CONDITION[employer] MECH[employer]IC CR LABORATORY Hematocrit 46.0 40.0 - 53.0 % 11/18/2023 11:47 AM AIR CONDITIONING MECHANIC CR LABORATORY MCV 89 78 - 100 fL 11/18/2023 11:47 AM AIR CONDITIONING MECHANIC CR LABORATORY MCH 31.0 26.5 - 33.0 pg 11/18/2023 11:47 AM AIR CONDITIONING MECHANIC CR LABORATORY MCHC 35.0 31.5 - 36.5 g/dL 11/18/2023 11:47 AM AIR CONDITIONING MECHANIC CR LAB[facility]ATORY RDW 11.3 10.0 - 15.0 % 11/18/2023 11:47 AM AIR CONDITIONING MECHANIC CR LAB[facility]ATORY Platelet Count 190 150 - 450 10e3/uL 11/18/2023 11:47 AM AIR CONDITIONING MECH[employer]IC CR LABORATORY Blood BLOOD SPECIMEN / Unknown Venipuncture / Unknown 11/18/2023 11:45 AM AIR CONDITIONING MECHANIC 11/18/2023 11:45 AM AIR CONDITIONING MECHANIC Albina Andujar PA-C LAB - BLOOD ORDERA BLES CR LABORATORY [facility] [address] [place] [address] (no room number, 1st floor of clinic) [place] [address], [facility] [phone] * DX Wrist Heel Radius (05/01/2023 1:57 PM CDT) Anatomical Region Laterality Modality Dexa Bone Mineral Den sity Narrative 05/01/2023 4:11 PM [address]T [address] [address] Phone: ?? Fax: Patient name: ?? Dejuan Rodriguez Patient demographics: ??62 year old White Male History: ??Evaluation of Bone Density, Multiple Sclerosis, and quadriplegia Current treatments: ??Calcium, Fosamax/Alendronate, Vitamin D Scan: ?CounsyligHackHands Wrist DXA is reported along with axial DXA from the same date. ??The T-score of the 33% radius is Principal result outpatient therapist: Yumiko Young MD, CCD Division of Diabetes, Endocrinology and Metabolism [facility] [phone] Teresita Garcia MD IMG DEXA ORDERABLES * Lipid panel reflex to direct LDL Non-fasting (04/06/2023 11:37 AM CDT) [facility] Cholesterol 152 <200 mg/dL 04/06/2023 5:59 PM CDT [facility] Triglycerides 125 <150 mg/dL 04/06/2023 5:59 PM CDT [facility] Direct Measure HDL 54 >=40 mg/dL 2022 5:59 PM CDT [facility] LDL Cholesterol Calculated 73 <=100 mg/dL 04/06/2023 5:59 PM CDT [facility] Non HDL Cholesterol 98 <130 mg/dL 04/06/2023 5:59 PM CDT [facility] Blood BLOOD SPECIMEN / Unknown Venipuncture / Unknown 04/06/2023 11:37 AM CDT 04/06/2023 11:37 AM CDT Narrative [facility] - 04/06/2023 5:59 PM CDT Cholesterol Desirable: ??<200 mg/dL Triglycerides Normal: ??Less than 150 mg/dL Borderline High: ??150-199 mg/dL High: ??200-499 mg/dL Very High: ??Greater than or equal to 500 mg/dL Direct Measure HDL Female: ??Greater than or equal to 50 mg/dL Male: ??Greater than or equal to 40 mg/dL LDL Cholesterol Desirable: ??<100mg/dL Above Desirable: ??100-129 mg/dL Borderline High: ??130-159 mg/dL High: ??160-189 mg/dL Very High: ??>= 190 mg/dL Non HDL Cholesterol Desirable: ??130 mg/dL Above Desirable: ??130-159 mg/dL Borderline High: ??160-189 mg/dL High: ??190-219 mg/dL Very High: ??Greater than or equal to 220 mg/dL Teresita Garcia MD LAB - BLOOD ORDERABL ES [facility] [address] [facility] [address] [facility], Room [address] [address], [facility] [phone] * Hep C - HIM (09/03/2017) Hep C HIM See Scanned Document [employer] 09/03/2017 Narrative [employer] - 09/03/2017 LAB [facility] Provider Outside LAB - HIM EXTERNAL R ESULT [employer] [address] [phone] * HIV-1/HIV-2, SCREEN (04/28/2006 2:22 PM CDT) HIV 1&2 Antibody Negative NEG [facility] 04/28/2006 2:22 PM CDT 04/28/2006 2:23 PM CDT Jonathan Velásquez MD LABORATORY [facility] * CYTOPATH TBS CERV/VAG MANUAL (12/18/2000) Noah Fernandez PA-C LABORATORY [facility] from Last 3 Months or Most Recently Relevant to Health Maintenance Advance Directives For more information, please contact: [phone] * No CPR- Pre-arrest intubation OK (Latest Code Status on File) Date Activated Date Inactivated Comments 02/21/2023 11:30 PM 02/25/2023 2:21 PM No attempts to restore cardiac function following arrest. Intubation to prevent or reverse respiratory instability may be performed. This is new from his [place] records Question Answer Comments Code status determined by: Discussion with terrye nt/ legal decision maker * Full Code Date Activated Date Inactivated Comments 12/01/2022 3:25 AM 12/03/2022 5:07 PM All basic and advanced life-sustaining interventions are performed as appropriate Question Answer Comments Code status determined by: Discussion with terrye nt/ legal decision maker Care Teams Scorekeeper Relationship Specialty [place] [address] [place] [address] PCP - General Family Practice 01/22/11 Fred Ovalle MD [address] [address] Urology 10/13/22 [place] [address] [place] [address] Assigned PCP 12/13/22 Fred Ovalle MD [address] [place] [id number] Assigned Surgical Provider 01/10/23 Chris Mcmahan MD [facility] [address] [place] [address] Neurology 02/21/23 Dax Menon MD [facility] [address] [place] [phone] Urology 02/21/23
--- OUTSIDE RECORDS SUMMARY | 2024-02-06 15:04 | XMS_ITS | Encounter Summary ---
Author Name Unknown Organization [facility] Address [address] [place] [address] Care Team Providers Care Supervisor Cell Maintenance Name Role Phone Teresita Garcia MD Primary Care Provider Fred Ovalle MD Unavailable Teresita Garcia MD Unavailable Fred Ovalle MD Unavailable [phone] Chris Mcmahan MD Unavailable Dax Menon MD Unavailable Encounter Details Date Type Department Care Team (Late st Contact Info) Description 02/05/[address] [address] [place] [id number] [place] [address] [phone] Social History Tobacco Use Types Packs/Day Years [...] 11/26/2023 How often do you attend chur ch or taoism services? Never 11/26/2023 Do you belong to any clubs o r organizations such as scientology groups, unions, fraternal [...] Answer Date Recorded PHQ-2 Score 0 11/26/2023 [facility] - Occupational Stress Questionnaire Answer Date Recorded [...] Orientation Straight 06/10/2021 1: 42 PM CDT documented as of this encounter Miscellaneous Notes * Telephone Encounter - Mary More RN - 02/05/2024 1:33 PM CDT Error. Mary More RN documented in this encounter Plan of Treatment Not on file documented as of this encounter Visit Diagnoses Not on filedocumented in this encounter Additional Health Concerns Assessment Noted Time PHQ-9 Depression Total Score: 2 11/26/19 24 10:47 AM FLOOR SUPERVISOR documented as of this encounter Care Teams Supervisor Cell Maintenance Relationship Specialty [place] [address] [place] [address] PCP - General Family Practice 01/22/11 Fred Ovalle MD [address] [address] Urology 10/13/22 [place] [address] [place] [address] Assigned PCP 12/13/22 Fred Ovalle MD [address] [place] [address] Assigned Surgical Provider 01/10/23 Chris Mcmahan MD [facility] [address] [place] [address] Neurology 02/21/23 Dax Menon MD [facility] [address] [place] [phone] Urology 02/21/23 documented as of this encounter
--- OUTSIDE RECORDS SUMMARY | 2024-02-06 15:04 | XMS_ITS | Referral Summary ---
Author Name Unknown [facility] Address [address] [facility] [facility] [place] [address] Care Team Providers Care U.[employer]. Revenue Officer Name Role Phone Teresita Garcia MD Primary Care Provider [phone] Fred Ovalle MD Unavailable Teresita Garcia MD Unavailable Fred Ovalle MD Unavailable Chris Mcmhaan MD Unavailable [phone] Dax Menon MD Unavailable Encounters Date Type Department Care Team Description 02/05/[address] [address] Teresita Garcia MD 02/05/2024 MyC Medical Advice [address] [address] Teresita Garcia MD Derm Problem 02/05/[address] [address] Teresita Garcia MD Derm Problem 01/14/[address] [address] Teresita Garcia MD Home Care/Hospice 12/31/[address] [phone] Teresita Garcia MD Home Care/Hospice 11/26/2023 Orders Only (auto-released) [address] [address] Teresita Garcia MD Screen for colon cancer 11/26/2023 Travel 11/26/2023 11:30 AM COSMETIC ACCOUNT COORDINATOR Office Visit [address] [address] Teresita Garcia MD Encounter for Medicare annual wellness exam (Primary Dx); Screen for colon cancer; Major depressive disorder, single episode, mild (H24); MS (multiple sclerosis) (H); Recurrent UTI; Non-seasonal allergic rhinitis, unspecified trigger 11/25/2023 Travel 11/18/2023 Travel 11/18/2023 11:00 AM COSMETIC ACCOUNT COORDINATOR Office Visit [address] [phone] Albina Andujar, DEVORAH Acute midline low back pain without sciatica (Primary Dx); Functional quadriplegia secondary to MS (H); Suprapubic catheter (H); Nausea; Acute cystitis without hematuria 11/17/2023 Travel from Last 3 Months Allergies Active Allergy Reactions Criticality Noted Date [...] Dose / 24 hours: 46.13 mcg Pump Sylvester Volume: 20 mL Outside Clinic & Provider: Argelia Aguilar MD, Last Refill Date: 09/26/2022 Next Refill Date: 1-2 weeks before alarm goes off (no appointment was set up yet as of 02/22/2023). 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 Provider to review and confirm.) Xpaz-Bkvkj-Oxmzudf disease 05/14/2011 Atopic rhinitis 05/14/2011 Overview: (Problem [...] classified 09/16/20 05 12/13/2010 iamCERVICALGIA 08/11/2005 09/04/2005 Immunizations Name Administration Dates Next Due COVID-19 12+ () (MODERNA) 09/07/2023 COVID-19 Bivalent 12+ (Pfizer) 09/10/2022 COVID-19 MONOVALENT 12+ (Pfizer) 08/26/2021,05/0 01/2021 COVID-19 Monovalent 18+ (Moderna) 08/26/2021,01/2021 COVID-19 Vaccine (Curly) 01/30/2021 Flu, Unspecified 06/25/2023,06/25/2021, 0 Influenza (IIV3) PF 06/13/2012,07/05/2010 Influenza Vaccine 18-64 (Flublok) 06/14/2021, Influenza Vaccine >6 months,quad, PF ,06/09/2018,09/25/2017,2016,07/27/2016,06/26/2015 Influenza,INJ,MDCK,PF,Quad >6mo(Flucelvax) 06/26/2022 Pneumococcal 20 valent Conju gate (Prevnar 20) 11/26/2023 Pneumococcal 23 valent 05/20/2011 RSV Vaccine (Arexvy) 06/25/2023 TDAP (Adacel,Boostrix) 06/14/2021 TDAP Vaccine (Adacel) 12/13/2010 Zoster recombinant adjuvante d (SHINGRIX) 01/12/2023,10/13/2022 Social History Tobacco Use Types Packs/Day Years [...] How often do you attend chur or restoration services? Never 11/26/2023 Do you belong to any clubs o r organizations such as spiritism groups, unions, fraternal [...] Answer Date Recorded PHQ-2 Score 0 11/26/2023 [facility] - Occupational Stress Questionnaire Answer [...] Comments Blood Pressure 109/68 11/26/2023 10:52 AM COSMETIC ACCOUNT COORDINATOR Pulse 73 11/26/2023 10:52 AM COSMETIC ACCOUNT COORDINATOR Temperature 36.7 ??C (98.1 ??F) 11/26/2023 1 0:52 AM COSMETIC ACCOUNT COORDINATOR Respiratory Rate 12 11/26/2023 10:5 2 AM COSMETIC ACCOUNT COORDINATOR Oxygen Saturation 94% 11/26/2023 10: 52 AM COSMETIC ACCOUNT COORDINATOR Inhaled Oxygen Concentration - - Weight 75.8 kg (167 lb) 11/26/2023 10:5 2 AM COSMETIC ACCOUNT COORDINATOR wheel chair bound Height 170.2 cm (5' 7) 11/26/2023 10:5 2 AM COSMETIC ACCOUNT COORDINATOR Body Mass Index 26.16 11/26/2023 10:52 AM COSMETIC ACCOUNT COORDINATOR Plan of Treatment Not on file Medical Devices Implanted Type Area Stone Rubber Device Identifier Shelf Expiration Date Model / Serial / Lot Right Hip Replacement Metallic Hardware/Anc hor Right: Hip Left Hip Replacement Metallic Hardware/Anc hor Left: Hip Procedures Procedure Name Priority Date/Time Associated Diagnosis Comments COLOGUARD(EXACT SCIENCES) Routine 12/16/2023 1:30 PM CDT Screen for colon cancer URINE CULTURE Routine 11/18/2023 11:54 AM COSMETIC ACCOUNT COORDINATOR Acute midline low back pain without sciatica URINE MICROSCOPIC EXAM Routine 11/18/2023 11:54 AM COSMETIC ACCOUNT COORDINATOR Acute midline low back pain without sciatica UA MACROSCOPIC WITH REFLEX TO MICRO AND CULTURE Routine 11/18/2023 11:54 AM COSMETIC ACCOUNT COORDINATOR Acute midline low back pain without sciatica CBC WITH PLATELETS Routine 11/18/2023 11 :45 AM COSMETIC ACCOUNT COORDINATOR Acute midline low back pain without sciatica BASIC METABOLIC PANEL Routine 11/18/2023 11:45 AM COSMETIC ACCOUNT COORDINATOR Acute midline low back pain without sciatica [...] Recently Relevant to Health Maintenance Results * COLOGUARD(Go Try It On) (12/16/2023 1:30 PM CDT) COLOGUARD-ABSTRACT Negative Negative 2023 4:51 AM CDT [facility] (CLIA #:[id number]) Comment: NEGATIVE TEST RESULT. A negative Cologuard [...] cancer. ??Following a negative Cologuard result, the [place] [employer] Society and U.S. Multi-Society Task Force screening guidelines recommend a Cologuard re-screening interval of 3 years. References: [place] [employer] Guideline for Colorectal Cancer Screening: https://www.cancer.org/cancer/uzumh-udzbgb-wjvghz/alqmxosdv-nxllzszfw-cnzqxjf/ac s-rec ommendations.html.; Jose DK, Ferny LOEV, Jono PulidoK, Colorectal Cancer Screening: Recommendations for Physicians and Patients from the U.S. Multi-Society Task Force on Colorectal Cancer Screening , Am J Gastroenterology 2017; 112:6617-9969. TEST DESCRIPTION: Composite algorithmic analysis of stool [...] screened with both Cologuard and colonoscopy. (Angelica Antoine. [place] al, N Engl J Med 2014;370(14):3290-4951.) Cologuard may produce a false negative or false positive result (no colorectal cancer or precancerous polyp present at colonoscopy follow up). A negative Cologuard test result does not guarantee the absence of CRC or advanced adenoma (pre-cancer). The current Cologuard screening interval is every 3 years. ([place] [employer] Society and U.S. Multi-Society Task Force). Cologuard performance data in a 10,000 patient pivotal study using colonoscopy as the reference method can be accessed at the following location: www.Tap.Me/results. Additional description of the Cologuard test process, warnings and precautions can be found at [email or web address] Medical[employer].com. Stool specimen (specimen) 12/16/2023 1:30 PM CDT 12/18/2023 9:58 AM CDT Teresita Garcia MD LABORATORY [facility] [address] [phone] [facility] (CLIA #:[id number]) [address] [place] [address] * (ABNORMAL) UA Macroscopic with reflex to Microscopic and Culture - Lab Collect (11/18/2023 11:54 AMCST) Color Urine Yellow Colorless, Straw, Light Yellow, Yellow 11/18/2023 12:03 PM COSMETIC ACCOUNT COORDINATOR [facility] Appearance Urine Clear Clear 11/18/19 24 12:03 PM COSMETIC ACCOUNT COORDINATOR [facility] Glucose Urine Negative Negative mg/dL 11/18/2023 12:03 PM COSMETIC ACCOUNT COORDINATOR [facility] Bilirubin Urine Negative Negative 4 12:03 PM COSMETIC ACCOUNT COORDINATOR [facility] Ketones Urine >=160(A) Negative mg/dL 11/18/2023 12:03 PM COSMETIC ACCOUNT COORDINATOR [facility] Specific [place] Urine 1.010 1.003 - 1.035 11/18/2023 12:03 PM COSMETIC ACCOUNT COORDINATOR [facility] Blood Urine Negative Negative 11/18/2023 12:03 PM COSMETIC ACCOUNT COORDINATOR [facility] pH Urine 6.0 5.0 - 7.0 11/18/2023 12:03 PM COSMETIC ACCOUNT COORDINATOR [facility] Protein Albumin Urine Negative Negative mg/dL 11/18/2023 12:03 PM COSMETIC ACCOUNT COORDINATOR [facility] Urobilinogen Urine 0.2 0.2, 1.0 E.U./dL 11/18/2023 12:03 PM COSMETIC ACCOUNT COORDINATOR [facility] Nitrite Urine Negative Negative 11/18/2023 12:03 PM COSMETIC ACCOUNT COORDINATOR [facility] Leukocyte Esterase Urine Moderate(A) Negative 11/18/2023 12:03 PM COSMETIC ACCOUNT COORDINATOR [facility] Urine URINE SPECIMEN FROM URINARY CONDUIT / Unknown Non-blood Collection / Unknown 11/18/2023 11:54 AM COSMETIC ACCOUNT COORDINATOR 11/18/2023 11:54 AM COSMETIC ACCOUNT COORDINATOR Albina Andujar PA-C LAB - URINE ORDERA BLES Performing Organization Address City/[facility]/ZIP Co de Phone Number CR LABORATORY [address] Lab (no room number, 1st floor of [facility]) [place] [address], [facility] [phone] * (ABNORMAL) Urine Microscopic Exam (11/18/2023 11:54 AM COSMETIC ACCOUNT COORDINATOR) Bacteria Urine Few(A) None Seen /HPF TAHIR 11/18/2023 12:09 PM COSMETIC ACCOUNT COORDINATOR [facility] RBC Urine None Seen 0-2 /HPF /HPF TAHIR 11/18/2023 12:09 PM COSMETIC ACCOUNT COORDINATOR [facility] WBC Urine 10-25(A) 0-5 /HPF /HPF TAHIR 11/18/2023 12:09 PM COSMETIC ACCOUNT COORDINATOR [facility] WBC Clumps Urine Present(A) None Seen /HPF TAHIR 11/18/2023 12:09 PM COSMETIC ACCOUNT COORDINATOR [facility] Mucus Urine Present(A) None Seen /LPF TAHIR 11/18/2023 12:09 PM COSMETIC ACCOUNT COORDINATOR CR LAB[facility] Urine URINE SPECIMEN FROM URINARY CONDUIT / Unknown Non-blood Collection / Unknown 11/18/2023 11:54 AM COSMETIC ACCOUNT COORDINATOR 11/18/2023 11:54 AM COSMETIC ACCOUNT COORDINATOR Albina Andujar PA-C LAB - URINE ORDERA BLES Performing Organization Address City/[facility]/ZIP Co de Phone Number [facility] [address] Lab (no room number, 1st [place] [address], [facility] [phone] * (ABNORMAL) Urine Culture (11/18/2023 11:54 AM COSMETIC ACCOUNT COORDINATOR) Pathologist [facility] Culture 10,000-50,000 CFU/mL Enterococcus faecalis(A) TAHIR 11/21/2023 4:33 AM COSMETIC ACCOUNT COORDINATOR [facility] Culture 10,000-50,000 CFU/mL Enterococcus faecalis(A) 11/21/2023 4:33 AM COSMETIC ACCOUNT COORDINATOR [facility] Urine URINE SPECIMEN FROM URINARY CONDUIT / Unknown Non-blood Collection / Unknown 11/18/2023 11:54 AM COSMETIC ACCOUNT COORDINATOR 11/18/2023 12:03 PM COSMETIC ACCOUNT COORDINATOR Narrative Organism Antibiotic Method Susceptibility Enterococcus faecalis Ampicillin TAHIR <=2 ug/mL: Susceptible Enterococcus faecalis Vancomycin TAHIR 1 ug/mL: Susceptible Enterococcus faecalis Nitrofurantoin TAHIR <=16 ug/mL: Susceptible Enterococcus faecalis Ampicillin TAHIR <=2 ug/mL: Susceptible Enterococcus faecalis Vancomycin TAHIR 1 ug/mL: Susceptible Enterococcus faecalis Nitrofurantoin TAHIR <=16 ug/mL: Susceptible Albina Andujar PA-C LAB - MICRO GENERA L ORDERABLES [facility] Inf. Diseases Diag. Lab [address] [facility] [place] [address], [facility] [phone] * (ABNORMAL) Basic metabolic panel (Ca, Cl, CO2, Creat, Gluc, K, Na, BUN) (11/18/2023 11:45 AM COSMETIC ACCOUNT COORDINATOR) Pathologist [facility] Sodium 137 135 - 145 mmol/L 11/18/2023 9:09 PM COSMETIC ACCOUNT COORDINATOR [facility] Comment:Reference intervals for this test were updated on 06/23/2023 to more accurately reflect our healthy population. There may be differences in the flagging of prior results with similar values performed with this method. Interpretation of those prior results can be made in the context of the updated reference intervals. Potassium 4.0 3.4 - 5.3 mmol/L 11/18/2023 9:09 PM COSMETIC ACCOUNT COORDINATOR [facility] Chloride 101 98 - 107 mmol/L 11/18/2023 9:09 PM COSMETIC ACCOUNT COORDINATOR [facility] Carbon Dioxide (CO2) 25 22 - 29 mmol/L 11/18/2023 9:09 PM COSMETIC ACCOUNT COORDINATOR [facility] Anion Gap 11 7 - 15 mmol/L 11/18/2023 9:09 PM COSMETIC ACCOUNT COORDINATOR [facility] Urea Nitrogen 7.5(L) 8.0 - 23.0 mg/dL 11/18/2023 9:09 PM COSMETIC ACCOUNT COORDINATOR [facility] Creatinine 0.74 0.67 - 1.17 mg/dL 11/18/2023 9:09 PM COSMETIC ACCOUNT COORDINATOR [facility] GFR Estimate >90 >60 mL/min/1. 73m2 11/18/2023 9:09 PM COSMETIC ACCOUNT COORDINATOR [facility] Calcium 9.1 8.8 - 10.2 mg/dL 11/18/2023 9:09 PM COSMETIC ACCOUNT COORDINATOR [facility] Glucose 93 70 - 99 mg/dL 11/18/2023 9:09 PM COSMETIC ACCOUNT COORDINATOR [facility] Blood BLOOD SPECIMEN / Unknown Venipuncture / Unknown 11/18/2023 11:45 AM COSMETIC ACCOUNT COORDINATOR 11/18/2023 11:45 AM COSMETIC ACCOUNT COORDINATOR Albina Andujar PA-C LAB - BLOOD ORDERA BLES [facility] [place] [facility] [address] [place] [address], [address] [address], [facility] [phone] * CBC with platelets (11/18/2023 11:45 AM COSMETIC ACCOUNT COORDINATOR) WBC Count 4.8 4.0 - 11.0 10e3/uL 11/18/2023 11:47 AM COSMETIC ACCOUNT COORDINATOR [facility] RBC Count 5.19 4.40 - 5.90 10e6/uL 11/18/2023 11:47 AM COSMETIC ACCOUNT COORDINATOR [facility] Hemoglobin 16.1 13.3 - 17.7 g/dL 11/18/2023 11:47 AM COSMETIC ACCOUNT COORDINATOR [facility] Hematocrit 46.0 40.0 - 53.0 % 11/18/2023 11:47 AM COSMETIC ACCOUNT COORDINATOR [facility] MCV 89 78 - 100 fL 11/18/2023 11:47 AM COSMETIC ACCOUNT COORDINATOR [facility] MCH 31.0 26.5 - 33.0 pg 11/18/2023 11:47 AM COSMETIC ACCOUNT COORDINATOR [facility] MCHC 35.0 31.5 - 36.5 g/dL 11/18/2023 11:47 AM COSMETIC ACCOUNT COORDINATOR [facility] RDW 11.3 10.0 - 15.0 % 11/18/2023 11:47 AM COSMETIC ACCOUNT COORDINATOR [facility] Platelet Count 190 150 - 450 10e3/uL 11/18/2023 11:47 AM COSMETIC ACCOUNT COORDINATOR [facility] Blood BLOOD SPECIMEN / Unknown Venipuncture / Unknown 11/18/2023 11:45 AM COSMETIC ACCOUNT COORDINATOR 11/18/2023 11:45 AM COSMETIC ACCOUNT COORDINATOR Albina Andujar PA-C LAB - BLOOD ORDERA BLES [facility] LAB[facility] [id number] [place] [address] Lab (no room number, 1st floor of clinic) [place] [address] [phone] * DX Wrist Heel Radius (05/01/2023 1:57 PM CDT) Anatomical Region Laterality Modality Dexa Bone Mineral Den sity Narrative 05/01/2023 4:11 [place] [address] Phone: ?? Fax: Patient name: ?? Dejuan Rodriguez Patient demographics: ??62 year old White Male History: ??Evaluation of Bone Density, Multiple Sclerosis, and quadriplegia Current treatments: ??Calcium, Fosamax/Alendronate, Vitamin D Scan: ?[employer] Pro[employer]y Wrist DXA is reported along with axial DXA from the same date. ??The T-score of the 33% radius is Principal result external grinder: Yumiko Young MD, [facility] Division of Diabetes, Endocrinology and Metabolism [facility] [phone] Teresita Garcia MD IMG DEXA ORDERABLES * Lipid panel reflex to direct LDL Non-fasting (04/06/2023 11:37 AM CDT) Cholesterol 152 <200 mg/dL 04/06/2023 5:59 PM [...] LAB - BLOOD ORDERABL ES [facility] [address] [facility] [address] [facility], [address] [place] [address], [facility] [phone] * Hep C - HIM (09/03/2017) Hep C HIM See Scanned Document [employer] CHRIS CARIAS 09/03/2017 Narrative [employer] [facility] - 09/03/2017 LAB [facility] Provider Outside LAB - HIM EXTERNAL R ESULT [employer] ROSENDA CARIAS [address] [place] [address], [facility] [phone] * HIV-1/HIV-2, SCREEN (04/28/2006 2:22 PM CDT) HIV 1&2 Antibody Negative NEG [facility] 04/28/2006 2:22 PM CDT 04/28/2006 2:23 PM CDT Jonathan Velásquez MD LABORATORY [facility] * CYTOPATH TBS CERV/VAG MANUAL (12/18/2000) Noah Fernandez PA-C LABORATORY [facility] from Last 3 Months or Most Recently Relevant to Health Maintenance Advance Directives For more information, please contact: [phone] * No CPR- Pre-arrest intubation OK (Latest Code Status on File) Date Activated Date Inactivated Comments 02/21/2023 11:30 PM 02/25/2023 2:21 PM No attempts to restore cardiac function following arrest. Intubation to prevent or reverse respiratory instability may be performed. This is new from his [place] records Question Answer Comments Code status determined by: Discussion with patie nt/ legal decision maker * Full Code Date Activated Date Inactivated Comments 12/01/2022 3:25 AM 12/03/2022 5:07 PM All basic and advanced life-sustaining interventions are performed as appropriate Question Answer Comments Code status determined by: Discussion with patie nt/ legal decision maker Care Teams U.[employer]. Revenue Officer Relationship Specialty [place] [address] [place] [address] PCP - General Family Practice 01/22/11 Fred Ovalle MD [address] [place] [address] Urology 10/13/22 [place] [address] [place] [address] Assigned PCP 12/13/22 Fred Ovalle MD [address] [place] [address] Assigned Surgical Provider 01/10/23 Chris Mcmahan MD [facility] [address] [place] [address] Neurology 02/21/23 Dax Menon MD [facility] [address] [id number] Urology 02/21/23
--- OUTSIDE RECORDS SUMMARY | 2024-02-06 15:04 | XMS_ITS | Clinical Summary ---
Author Name Unknown Organization [employer] [facility] Address [place], [place] [address] Care Team Providers Care Navigation Teacher Name Role Phone Teresita Garcia MD Primary Care Provider [phone] Lorna West RN Unavailable [facility], [facility] Unavailable [phone] Allergies Active Allergy Reactions Criticality Noted Date Comments Hydromorphone Nausea And Vomiting 12/16/2010 Pollen, Micronized 09/10/2010 Medications Medication Sig Dispensed Refills Start Date End Date Status alendronate (FOSAMAX) 70 mg tablet Take 70 mg by mouth every Thursday morning. 3 8 Active calcium carbonate-vitamin D3 600 mg (1,500 mg)-800 unit chew Chew 1 Tablet by mouth 2 times daily. Active ketoconazole 2% shampoo (NIZORAL) 2 % shampoo Apply topically to affected area(s) every Thursday and Thursday. Lather on damp scalp, leave on for 5 min, then rinse with water Active carBAMazepine (CARBATROL) 200 mg Extended-Release capsule Take 200 mg by mouth two times daily. 2 Active NaCl 0.9% 500 mL with ocrelizumab 30 mg/mL soln 600 mg Inject 600 mg intravenous EVERY 6 MONTHS. Active acetaminophen (TYLENOL) 325 mg tabletIndications: fever,pain Take 2 Tablets (650 mg) by mouth every 4 hours if needed for Pain. Max acetaminophen dose: 4000mg in 24 hrs. 0 3 Active hospital bedIndications:Mul tiple sclerosis (HC) Hospital bed with mattress and 1/2 rails. Semi-electric bed. Length of need 99 months. 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 2 Suppository 3 Active docusate (COLACE) 100 mg capsuleIndications :Neurogenic bowel Take 1 Capsule (100 mg) by mouth two times daily. 60 Capsule 3 Active amoxicillin (AMOXIL) 500 mg capsule Take 500 mg by mouth three times daily. 3 Active baclofen (LIORESAL) 10 mg tabletIndications: Spasticity Take 1 Tablet (10 mg) by mouth every 6 hours if needed (spasticity or acute withdrawal. Call clinic for instructions.). 60 Tablet 3 3 Active ondansetron (ZOFRAN ODT) 4 mg disintegrating tablet 4 mg every 8 hours if needed for Nausea/Vomiting. Active Bactrim DS tab Take 1 tablet(s) every day by oral route. 2 Active polyethylene glycoL (MIRALAX) 17 gram/scoop powderIndications: Neurogenic bowel Mix 1 scoop (17 g) in liquid then take by mouth once daily if needed for Constipation. 3 Active ciprofloxacin HCl (Cipro) 500 mg tablet Take 500 mg by mouth one time. Take 1 tab Po After every catheter change. Active gabapentin (NEURONTIN) 400 mg capsuleIndications :neuropathic pain Take 1 Capsule (400 mg) by mouth four times daily. 400 mg PO 4 times a day (0400, 1000, 1600, 2200).. Give with mirapex 4 Active pramipexole (MIRAPEX) 0.125 mg tabletIndications: Restless legs syndrome four times daily. 0.125 mg PO 4 times a day (0400, 1000, 1600, 2200). Give with Gabapentin 4 Active gabapentin (NEURONTIN) 400 mg capsuleIndications :neuropathic pain 400 mg PO 5 times a day (03:00, 06:00, 12:00, 18:00, 23:00). Give with mirapex 120 Capsule 3 01/26/20 24 Discontinu ed(*Medica tion adjustment ) pramipexole (MIRAPEX) 0.125 mg tabletIndications: Restless legs syndrome [The details of the medication are not available because there are pending changes by a home health clinician.] 0 3 01/26/20 24 Discontinu ed(*Medica tion adjustment ) HYDROcodone-acetam inophen (NORCO) 5-325 mg per tabletIndications: Spasm of muscle [The details of the medication are not available because there are pending changes by a home health clinician.] 20 Tablet 3 01/26/20 24 Discontinu ed(*Med complete/R egimen complete/L evel of care change) Hospital, Clinic, or Other Facility Administered Medication Ordered Dose Route Frequency Start Date End Date Status baclofen 10,000 mcg/20mL (500 mcg/mL) intrathecal (GABLOFEN)Indications:Mul tiple sclerosis (HC),Spasm of muscle 1.9213 mcg/hr cITi CONTINUOUS 11/04/2023 11/01/2024 A ctive Active Problems Patient Care Coordination No te Formatting of this note migh t be different from the original. Called and left message for Jose. How is he doing since pump replacement last week? Pain? Spasticity? Is he wearing his abdominal binder? Any issues with bowel and bladder since surgery? Is he scheduled for follow up with Dr. Mejía for suture removal? He can schedule with me at any time if issues with spasticity. Please have him schedule his next refill. Loni Hernandez NP .................... 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 05/25/2021 Chronic indwelling Valenzuela catheter 05/25/2021 Presence of intrathecal baclofen pump 05/25/2021 Multiple sclerosis Sensory loss Overview: fingers and feet Neurogenic bladder Neurogenic bowel Overview: constipation Resolved Problems Problem Noted Date Diagnosed Date Resolved Date Enterococcus UTI 01/07/2022 09/28/2022 Pseudomonas urinary tract infection 07/25/2021 09/28/2022 Pseudomonas infection 05/27/20212022 Complicated UTI (urinary tract infection) 05/25/2021 09/28/2022 Sepsis 05/25/2021 09/28/2022 Paraplegia, spastic, due to MS 05/25/2021 05/25/2021 Sepsis 04/04/2021 09/28/2022 UTI (urinary tract infection) 04/04/2021 09/28/2022 Lab test positive for detect ion of COVID-19 virus 04/04/2021 09/28/2022 Weakness 11/25/2019 09/28/2022 Lactic acidosis 11/25/2019 09/28/2022 Spastic paraplegia 10/02/2016 Pseudomeningocele, acquired s/p repair 05/15/11 05/16/2011 09/28/2022 Bladder spasms 05/16/2011 09/28/2022 Mechanical complication of n ervous system device, implant, and graft 03/12/2011 09/28/2022 Abnormality of gait 11/13/2010 09/28/19 23 Retention of urine, unspecified 09/10/2010 09/28/2022 Spasm of muscle 09/10/2010 09/28/2022 Depression 09/10/2010 09/28/2022 Sleep disturbance, unspecified 09/10/2010 09/28/2022 S/P BILATERAL HIP REPLACEMENTS 02/28/2007 09/28/2022 Urinary tract infection, site not specified 02/27/2007 09/28/2022 HX OF CANNABIS USE 08/20/2005 HX OF DYSTHYMIC DISORDER 08/20/200509/2022 Other ill-defined and unknow n causes of morbidity and mortality 02/28/2007 Personal history of alcoholism 09/28/2022 Family history of ischemic heart disease 09/28/2022 Other chest pain 02/28/2007 Dysmetria 09/28/2022 Paraparesis 09/28/2022 Urinary retention 09/28/2022 Muscle spasm 09/28/2022 Encounters Date Type Department Care Team Description 02/04/2024 2:00 PM CDT [facility] [address] [place] [address] Dorys Cordon CERTIFIED ART THERAPIST - LONG VISIT 02/02/2024 12:45 PM CDT Office Visit [facility] [address] [place] [address] Baclofen Implantable Pump (Post MRI check) 02/02/2024 11:21 AM CDT - 02/02/2024 11:59 PM CDT Hospital Encounter [facility] [address] [place] [address] Kiarra Mena MD Multiple sclerosis (HC) 02/02/2024 Travel 02/01/2024 2:00 PM CDT Home Care Visit [facility] [address] [place] [address] Dorys Cordon CERTIFIED ART THERAPIST - LONG VISIT 01/29/2024 2:00 PM CDT Home Care Visit [facility] [address] [address] Dorys Cordon CERTIFIED ART THERAPIST - LONG VISIT 01/29/2024 Home Care Visit [facility] [address] [place] [address] Zoie Murrell RN CARE COORDINATION 01/27/2024 Orders Only [facility] [address] [place] [address] Tiffani Chowdary RN <No scans attached> 01/26/2024 2:00 PM CDT Home Care Visit [facility] [address] [place] [address] Dorys Cordon CERTIFIED ART THERAPIST - LONG VISIT 01/26/2024 12:30 PM CDT Home Care Visit [facility] [address] [place] [address] Zoie Murrell RN SN - HOME VISIT 01/26/2024 Orders Only [facility] [address] [place] [address] Tiffani Chowdary RN <No scans attached> 01/22/2024 2:00 PM CDT Home Care Visit [facility] [address] [place] [address] Dorys Cordon CERTIFIED ART THERAPIST - LONG VISIT 01/22/2024 10:00 AM CDT Home Care Visit [address] [address] Zoie Murrell RN SN - PRN HOME VISIT 01/22/2024 Home Care Visit [address] [address] Marjan Meza RN CO-VISIT FOR CLINICAL NEED 01/19/2024 2:00 PM CDT Home Care Visit [address] [address] Dorys Cordon CERTIFIED ART THERAPIST - LONG VISIT 01/15/2024 2:00 PM CDT Home Care Visit [address] [address] Dorys Cordon CERTIFIED ART THERAPIST - LONG VISIT 01/13/2024 2:30 PM CDT Home Care Visit [address] [address] Johana Patten RN SN - WOUND/OSTOMY CHART CONSULT 01/13/2024 1:30 PM CDT Home Care Visit [address] [address] Zoie Murrell RN SN - HOME VISIT 01/13/2024 Home Care Visit [address] [address] Zoie Murrell RN CARE COORDINATION 01/13/[address] [address] Johana Patten RN Home Care; Error-please disregard (/) 01/12/2024 2:00 PM CDT Home Care Visit [address] [address] Dorys Cordon CERTIFIED ART THERAPIST - HOME VISIT 01/07/2024 1:00 PM CDT Home Care Visit [address] [address] Dorys Cordon CERTIFIED ART THERAPIST - HOME VISIT 01/05/2024 2:00 PM CDT Home Care Visit [address] [address] Droys Cordon CERTIFIED ART THERAPIST - HOME VISIT 12/31/2023 10:00 AM CDT Home Care Visit [address] [address] Tiffani Chowdary, RN SN - OASIS RECERTIFICATION 12/31/2023 Plan of Care Documentation [address] [address] 12/31/2023 Home Care Visit [address] [address] Tiffani Chowdary, RN CARE COORDINATION 12/29/2023 2:00 PM CDT Home Care Visit [address] [address] Dorys Cordon CERTIFIED ART THERAPIST - LONG VISIT 12/29/2023 5:00 AM CDT Home Care Visit [address] [address] Angle Hackett RN SN - PRN HOME VISIT 12/22/2023 1:30 PM CDT Home Care Visit [address] [address] Dorys Cordon CERTIFIED ART THERAPIST - LONG VISIT 12/18/2023 2:00 PM CDT Home Care Visit [address] [address] Dorys Cordon CERTIFIED ART THERAPIST - LONG VISIT 12/15/2023 2:00 PM CDT Home Care Visit [address] [address] Dorys Cordon CERTIFIED ART THERAPIST - LONG VISIT 12/15/2023 10:30 AM CDT Home Care Visit [address] [address] Zoie Murrell RN SN - HOME VISIT 12/11/2023 2:00 PM CDT Home Care Visit [address] [address] Dorys Cordon CERTIFIED ART THERAPIST - LONG VISIT 12/08/2023 2:00 PM CDT Home Care Visit [address] [address] Dorys Cordon CERTIFIED ART THERAPIST - LONG VISIT 12/02/2023 Home Care Visit [address] [address] Zoie Murrell RN CARE COORDINATION 12/01/2023 2:00 PM DIRECTOR OF ENVIRONMENTAL SERVICES Home Care Visit [address] [address] Dorys Cordon CERTIFIED ART THERAPIST - LONG VISIT 12/01/2023 10:00 AM DIRECTOR OF ENVIRONMENTAL SERVICES Home Care Visit [address] [address] Zoie Murrell RN SN - HOME VISIT 11/27/2023 2:00 PM DIRECTOR OF ENVIRONMENTAL SERVICES Home Care Visit [address] [address] Dorys Cordon CERTIFIED ART THERAPIST - LONG VISIT 11/24/2023 2:00 PM DIRECTOR OF ENVIRONMENTAL SERVICES Home Care Visit [address] [address] Dorys Cordon CERTIFIED ART THERAPIST - LONG VISIT 11/20/2023 2:00 PM DIRECTOR OF ENVIRONMENTAL SERVICES Home Care Visit [address] [address] Dorys Cordon CERTIFIED ART THERAPIST - LONG VISIT 11/17/2023 1:00 PM DIRECTOR OF ENVIRONMENTAL SERVICES Home Care Visit [address] [address] Zoie Murrell RN SN - LONG VISIT (>90 MINUTES) 11/13/2023 2:00 PM DIRECTOR OF ENVIRONMENTAL SERVICES Home Care Visit [address] [address] Dorys Cordon CERTIFIED ART THERAPIST - LONG VISIT 11/10/2023 2:00 PM DIRECTOR OF ENVIRONMENTAL SERVICES Home Care Visit [address] [address] Dorys Cordon CERTIFIED ART THERAPIST - LONG VISIT from Last 3 Months Immunizations Name Administration Dates Next Due COVID-19 vaccine (Curly-J&J) SAMPSON PAGE 1 Influenza, IIV4 07/27/2016 Pneumococcal Poly,23-Valent (Pneumovax) 05/20/20 11 Family History Medical History Relation Name Comments Hyperlipidemia Brother Heart Disease Father CABG Hyperlipidemia Father Multiple sclerosis Mother Pneumonia Mother Relation Name Status Comments Brother Father Mother Other 1 Other 2 Social History Tobacco Use Types Packs/Day Years Used Date Smoking Tobacco: Never Smokeless Tobacco: Never Tobacco Cessation:Counseling Given: No Alcohol Use Standard Drinks/Week Comments Not Currently 0 (1 standard drink = 0.6 oz pur e alcohol) Social Connections Answer Date Recorded Frequency of Communication with Friends and Fami ly Not on file 10/15/2021 Financial Resource Strain Answer Date R ecorded Difficulty of Paying Living Expenses Not on file 10/15/2021 Difficulty of Paying Living Expenses Not on file 10/15/2021 Sex and Gender Information Value Date Recorded Sex Assigned at Not on file Gender Identity Not on file Sexual Orientation Not on file Obstetrics History Last Filed Vital Signs Vital Sign Reading Time Taken Comments Blood Pressure 120/64 01/26/2024 12:47 PM CDT Pulse 73 01/26/2024 12:47 PM CDT Temperature 36.6 ??C (97.9 ??F) 01/26/2024 12:47 PM C DT Respiratory Rate 16 01/22/2024 10:29 AM CDT Oxygen Saturation 98% 01/26/2024 12:47 PM CDT Inhaled Oxygen Concentration - - Weight 76.3 kg (168 lb 4.8 oz) 05/26/2023 8:57 A M CDT Height 170.2 cm (5' 7) 05/26/2023 8:57 AM CDT Body Mass Index 26.36 05/26/2023 8:57 AM CDT Plan of Treatment Upcoming Encounters Date Type Department Care Team (Late st Contact Info) Description 02/08/2024 1:00 AM CDT Home Care Visit [facility] [address] [place] [address] Dorys Cordon [address] [place] [address] 02/09/2024 4:00 AM CDT Home Care Visit [address] [address] Zoie Murrell RN [address] [place] [address] 02/09/2024 5:00 AM CDT Home Care Visit [address] [address] Johana Patten RN [address] [place] [address] 02/11/2024 1:00 AM CDT Home Care Visit [address] [address] Dorys Cordon [address] [place] [address] 02/15/2024 1:00 AM CDT Home Care Visit [address] [address] Dorys Cordon [address] [place] [address] 02/18/2024 1:00 AM CDT Home Care Visit [address] [address] Dorys Cordon [address] [place] [address] 02/22/2024 1:00 AM CDT Home Care Visit [address] [address] Dorys Cordon [address] [place] [address] 02/23/2024 4:00 AM CDT Home Care Visit [address] [address] Zoie Murrell RN [address] [place] [address] 02/25/2024 1:00 AM CDT Home Care Visit [address] [address] Dorys Cordon [address] [place] [address] 03/01/2024 1:00 AM CDT Home Care Visit [address] [address] Dorys Cordon [address] [place] [address] 03/01/2024 4:00 AM CDT Appointment [address] [address] Zoie Murrell RN [address] [place] [address] 04/27/2024 12:45 PM CDT Office Visit [facility] [address] [place] [id number] [place] [address] Loni Hernandez NP [address] [address] Health Maintenance Due Date Last Done Comments Tdap 1972 Depression screening for age 12+ 1973 HIV for age 15-65 1976 Hepatitis C screening for ag e 18-79 12/15/1979 Tetanus booster 1981 Colonoscopy through age 75 2006 Lipids for age 45-75 2006 Zoster (shingles) series for age 50+ (1 of 2) 12/15/2011 BMI (ht and wt on same day) for age 18+ 12/17/2017 12/17/2016, 12/12/2015 COVID-19 vaccine series ( season) 2023 03/12/2022, 08/26/2021, 02/09/2021 Influenza for age 50-64 05/29/2024 07/27/2016 Pneumococcal series for age 6-64 Aged Out 05/20/2011 No longer eligible b ased on patient's age to complete this topic Medical Devices Implanted Type Area Beer Maker Device Identifier Shelf Expiration Date Model / Serial / Lot Cath 1 Pc Sutureless 8709sc - [id number] Implanted:Qty: 1 on 12/16/2010 at [facility] Explanted:at [facility] (Quantity not on file) Spine Medtronic 09/13/2011 8709SC# / [id number] / Pump Synchromed Ii 20ml - [id number] Implanted:Qty: 1 on 12/16/2010 at [facility] Explanted:at [facility] (Quantity not on file) Spine Medtronic 04/24/2012 [id number]# / [id number] H / Cath Indura Drug [id number] Medtronic - [id number] Implanted:Qty: 1 on 03/11/2011 at [facility] Explanted:at [facility] (Quantity not on file) Spine Medtronic 8709# / [id number] / Ancr 8590-9 - [id number] Implanted:Qty: 1 on 03/11/2011 at [facility] Spine Medtronic 8590-9# / / [id number] Duraseal Implanted:Qty: 1 on 03/11/2011 at [facility] Spine [id number] / / Description:DURASEAL Graft 1x1 Dura Mater Duragen - [id number] Implanted:Qty: 1 on 05/15/2011 at [facility] INTEGRA NEURO SUPPLIES 01/25/2014 [id number]# / / [id number] Drug Pump Spinal 20ml Synchromed Ii - [id number] Implanted:Qty: 1 on 01/27/2017 by Frederic Mejía MD at [facility] Explanted:at [facility] (Quantity not on file) N/A: Abdomen Medtronic Pain Therapy 04/24/2018 [id number]# / [id number] H / Cnnctr Spinal Indura Sutureless - [id number] Implanted:Qty: 1 on 01/27/2017 by Frederic Mejía MD at [facility] N/A: Abdomen Medtronic Pain Therapy 06/14/2017 8578# / / [id number] Inactivated Obsolete With No Replacement Drug Pump Spinal 20ml Synchrom - [id number] Implanted:Qty: 1 on 05/26/2023 by Frederic Mejía MD at [facility] Medtronic Pain Therapy 10/01/2024 [id number] / [id number] H / Envlp Neuro Lg Tyrx Absorb Antibacterial - [id number] Implanted:Qty: 1 on 05/26/2023 by Frederic Mejía MD at [facility] Medtronic 01/09/2024 [id number] / / [id number] Procedures Procedure Name Priority Date/Time Associated Diagnosis Comments MR HEAD BRAIN WO Routine 02/02/2024 12:4 4 PM CDT Multiple sclerosis (HC) from Last 3 Months Results * MR Brain wo Contrast * (02/02/2024 12:44 PM CDT) Anatomical Region Laterality Modality BRAIN, HEAD Magnetic Resonan ce 02/02/2024 12:5 6 PM CDT Impressions 02/02/2024 12:56 PM CDT 1. No interval change. 2. Stable gjln-wv-pqkohlps supratentorial and infratentorial T2 hyperintense white matter lesions compatible with chronic demyelinating plaques. 3. Stable mild T1 hypointense lesion load. 4. Stable mild generalized cerebral volume loss with atrophy of the body of the corpus callosum. 5. No acute intracranial abnormality Dictated by Jonathan Moody MD @ 02/02/2024 12:56:22 PM (Electronically Signed) Narrative 02/02/2024 12:56 PM CDT For Patients: ??As a result of the 21st Century Cures Act, medical imaging exams and procedure reports are released immediately into your electronic medical record. ??You may view this report before your referring provider. ??If you have questions, please contact your health care provider. INDICATION: Multiple sclerosis. COMPARISON: 06/17/2023. TECHNIQUE: Multiplanar T1, T2, FLAIR and diffusion-weighted imaging. FINDINGS: Compared to the previous exam, again seen are multiple T2/FLAIR signal hyperintense lesions with the periventricular, septal callosal, and juxta cortical white matter of both cerebral hemispheres compatible with chronic demyelinating plaques. Stable patchy T2/FLAIR signal hyperintense lesions of the brainstem, right middle cerebellar peduncle, and cerebellum also likely present demyelinating plaques. Stable mild T1 hypointense lesion load. Stable mild generalized volume loss with atrophy of the body of the corpus callosum. No intracranial hemorrhage. No abnormal ventricular dilatation. Intracranial vascular flow voids are preserved. No mass effect or midline shift. No restricted diffusion to suggest acute ischemia. Bilateral orbits are unremarkable. Normal appearing sella. Visualized paranasal sinuses are unremarkable. Small left mastoid effusion. Procedure Note Jonathan Moody MD, PhD - 02/02/2024 For Patients: As a result of the Cures Act, medical imagingexams and procedure reports are released immediately into your electronicmedical record. You may view this report before your referring provider.If you have questions, please contact your health care provider. INDICATION: Multiple sclerosis. COMPARISON: 06/17/2023. TECHNIQUE: Multiplanar T1, T2, FLAIR and diffusion-weighted imaging. FINDINGS: Compared to the previous exam, again seen are multiple T2/FLAIR signalhyperintense lesions with the periventricular, septal callosal, and juxtacortical white matter of both cerebral hemispheres compatible with chronicdemyelinating plaques. Stable patchy T2/FLAIR signal hyperintense lesionsof the brainstem, right middle cerebellar peduncle, and cerebellum alsolikely present demyelinating plaques. Stable mild T1 hypointense lesion load. Stable mild generalized volume loss with atrophy of the body of the corpuscallosum. No intracranial hemorrhage. No abnormal ventricular dilatation.Intracranial vascular flow voids are preserved. No mass effect or midline shift. No restricted diffusion to suggest acute ischemia. Bilateral orbits are unremarkable. Normal appearing sella. Visualized paranasal sinuses are unremarkable. Small left mastoideffusion. IMPRESSION: 1. No interval change. 2. Stable kmzy-nq-zzdtracz supratentorial and infratentorial T1boqrceqxkhqs white matter lesions compatible with chronic demyelinatingplaques. 3. Stable mild T1 hypointense lesion load. 4. Stable mild generalized cerebral volume loss with atrophy of the bodyof the corpus callosum. 5. No acute intracranial abnormality Dictated by Jonathan Moody MD @ 02/02/2024 12:56:22 PM (Electronically Signed) Kiarra Mena MD MR from Last 3 Months Additional Health Concerns Infection Onset Date Last Indicated MDRO Clearance Comment:Infection Control Note: Hx of MDRO, surveillance criteria met, no need for further testing or isolation precautions. Do not delete or resolve the Infection Flag. +MDRO 09/28/22 CRPA urine 05/25/2023 05/25/2023 Advance Directives * Full Code (Latest Code Status on File) Date Activated Date Inactivated Comments 05/26/2023 7:47 AM 05/26/2023 4:31 PM Question Answer Comments Code Status Discussion: Reviewed Preferences * Partial Code Date Activated Date Inactivated Comments 09/28/2022 8:30 PM 10/07/2022 6:30 PM Question Answer Comments Cardio Resuscitation: No Chest CompressionsNo De fibrillation/Cardioversion Ventilation: No Restrictions Drug Protocol: No Drug Protocol After Arrest Oc curs * Partial Code Date Activated Date Inactivated Comments 01/07/2022 6:25 PM 01/13/2022 4:47 PM DNR, but oka y for intubation Question Answer Comments Cardio Resuscitation: Other (specify in comments ): Ventilation: No Restrictions Drug Protocol: No Restrictions * Partial Code Date Activated Date Inactivated Comments 07/25/2021 7:20 PM 07/30/2021 4:28 PM DNR, but ok ay for intubation Question Answer Comments Cardio Resuscitation: No Chest CompressionsNo De fibrillation/Cardioversion Ventilation: No Restrictions Drug Protocol: No Restrictions * Full Code Date Activated Date Inactivated Comments 05/25/2021 2:51 AM 05/29/2021 4:17 PM Question Answer Comments Code Status Discussion: Per Advance Care PlanNot Discussed Care Teams Navigation Teacher Relationship Specialty [place] [address] [place] [address] PCP - General 05/13/11 Lorna West RN [address] [facility] [address] [facility] [address] [place] [address] Spasticity Management Care Coordination- [facility] Registered Nurse 08/05/21 [facility], [facility] [address] [place] [address] 01/14/22
--- OUTSIDE RECORDS SUMMARY | 2024-02-06 15:05 | XMS_ITS | Encounter Summary ---
Author Name Unknown Organization [place] Address [address] [facility] [place] [address] Care Team Providers Care Head Butler Name Role Phone Teresita Garcia MD Primary Care Provider [phone] Blanca Choi RN Unavailable Fred Ovalle MD Unavailable Teresita Garcia MD Unavailable Fred Ovalle MD Unavailable Chris Mcmahan MD Unavailable Dax Menon MD Unavailable Teresita Garcia MD Unavailable Reason for Visit * Reason Onset Date Comments Call To Schedule Appointment 05/21/2023 Encounter Details Date Type Department Care Team (Late st Contact Info) Description 05/21/2023 Telephone [facility] [id number] [place] [phone] [place]ita [place] [id number] [place] [id number] Call To Schedule Appointment Social History Tobacco Use Types Packs/Day Years Used Date Smoking Tobacco: Never Smokeless Tobacco: Never Alcohol Use Standard Drinks/Week Comments Not Currently 0 (1 standard drink = 0.6 oz pur e alcohol) socially Humiliation, Afraid, Rape, and Kick questionnair e Answer Date Recorded Within the last year, have y ou been afraid of your partner or ex-partner? No 07/05/2020 Within the last year, have y ou been humiliated or emotionally abused in other ways by your partner or ex-partner? No Within the last year, have y ou been kicked, hit, slapped, or otherwise physically hurt by your partner or ex-partner? No 07/05/2020 Within the last year, have y ou been raped or forced to have any kind of sexual activity by your partner or ex-partner? No 07/05/2020 Social Connection and Isolat ion Panel [NHANES] Answer Date Recorded In a typical week, how many times do you talk on the phone with family, friends, or neighbors? Twice a week 04/02/2023 How often do you get togethe r with friends or relatives? More than three times a week 04/02/2023 How often do you attend [facility] or alevism services? Never 04/02/2023 Do you belong to any clubs o r organizations such as voodoo groups, unions, fraternal or athletic groups, or school groups? Yes 04/02/2023 Attends Club or Organization Meetings Not on marika e 04/02/2023 Are you , , di vorced, , never , or living with a partner? Never 04/02/2023 AUDIT-C Answer Date Recorded Q1: How often do you have a drink containing alcohol? Never 04/02/2023 Q2: How many drinks containi ng alcohol do you have on a typical day when you are drinking? Patient does not drink Q3: How often do you have si x or more drinks on one occasion? Never 04/02/2023 Overall Financial Resource Strain (CARDIA) Answe r Date Recorded How hard is it for you to pa y for the very basics like food, housing, medical care, and heating? Not very hard 04/02/2023 PHQ-2 Answer Date Recorded PHQ-2 Score 0 05/08/2023 [facility]ational Stress Questionnaire Answer Date Recorded Do you feel stress - tense, restless, nervous, or anxious, or unable to sleep at night because your mind is troubled all the time - these days? Not at all 04/02/2023 Exercise Vital Sign Answer Date Recorde d On average, how many days pe r week do you engage in moderate to strenuous exercise (like a brisk walk)? 0 days 04/02/2023 On average, how many minutes do you engage in exercise at this level? 0 min 04/02/2023 Hunger Vital Sign Answer Date Recorded Within the past 12 months, y ou worried that your food would run out before you got the money to buy more. Never true 04/02/20 23 Within the past 12 months, t he food you bought just didn't last and you didn't have money to get more. Never true 04/02/2023 PRAPARE - Transportation Answer Date Re corded In the past 12 months, has l ack of transportation kept you from medical appointments or from getting medications? No 02/2023 In the past 12 months, has l ack of transportation kept you from meetings, work, or from getting things needed for daily living? No 04/02/2023 Housing Stability Vital Sign Answer Duy e Recorded In the last 12 months, was t here a time when you were not able to pay the mortgage or rent on time? No 04/02/2023 In the last 12 months, how many places have you lived? 1 04/02/2023 In the last 12 months, was t here a time when you did not have a steady place to sleep or slept in a nursing home (including now)? No 04/02/2023 Sex and Gender Information Value Date Recorded Sex Assigned at Male 06/10/2021 1:42 PM CDT Gender Identity Male 06/10/2021 1:42 PM CDT Sexual Orientation Straight 06/10/2021 1: 42 PM CDT COVID-19 Exposure Response Date Recorded In the last 10 days, have yo u been in contact with someone who was confirmed or suspected to have Coronavirus/COVID-19? No / Unsure 05/15/2023 10:49 AM CDT documented as of this encounter Miscellaneous Notes * Telephone Encounter - Rita Nye - 05/21/2023 12:03 PM CDT Appt scheduled 05/26/2023 AWILDA Dang * Telephone Encounter - Ericka Velazquez - 05/21/2023 11:19 AM CDT Reason for Call: Appointment Request Patient requesting this type of appt: Pre-op Requested provider: Teresita Garcia Reason patient unable to be scheduled: Not within requested timeframe When does patient want to be seen/preferred time: 1-2 days Comments: Patient has a procedure 05/26/23 and needs a pre-op, the virtual that was done wasn't excepted . [facility] or would you prefer to receive a phone call?: Patient would prefer a phone call Okay to leave a detailed message?: Yes at Home number on file [phone] (home) Call taken on 05/21/2023 at 11:21 AM by Ericka Velazquez documented in this encounter Plan of Treatment Not on file documented as of this encounter Visit Diagnoses Not on filedocumented in this encounter Additional Health Concerns Assessment Noted Time PHQ-9 Depression Total Score: 2 05/08/20 23 11:12 AM CDT documented as of this encounter Care Teams Head Butler Relationship Specialty [place] [address] [place] [address] PCP - General Family Practice 01/22/11 Blanca Choi, JAN Personal Advocate & Liaison (PAL) Nurse 09/16/22 01/24/24 Fred Ovalle MD [address] [address] Urology 10/13/22 [place] [address] [place] [address] Assigned PCP 12/13/22 Fred Ovalle MD [address] [place] [address] Assigned Surgical Provider 01/10/23 Chris Mcmahan MD [facility]UROLOGICAL [facility] [address] [place] [address] Neurology 02/21/23 Dax Menon MD [facility] [address] [place] [phone] Urology 02/21/23 [place] [address] [place] [address] Assigned Pain Medication Provider 04/11/23 06/19/23 documented as of this encounter
--- OUTSIDE RECORDS SUMMARY | 2024-02-06 15:05 | XMS_ITS | Encounter Summary ---
Author Name Unknown Organization [place] Address [address] [facility] [place] [address] Care Team Providers Care Interpreter For The Deaf Name Role Phone Teresita Garcia MD Primary Care Provider [phone] Blanca Choi RN Unavailable [phone] Fred Ovalle MD Unavailable [phone] Teresita Garcia MD Unavailable Fred Ovalle MD Unavailable [phone] Chris Mcmahan MD Unavailable Dax Menon MD Unavailable Encounter Details Date Type Department Care Team (Latest Contact Info) Description 11/17/2023 Travel Social History Tobacco Use Types Packs/Day [...] week 04/02/2023 How often do you attend chur ch or uatsdin services? Never 04/02/2023 Do you belong to any clubs o r organizations such as evangelical groups, unions, fraternal [...] more drinks on one occasion? Never 04/02/2023 PHQ-2 Answer Date Recorded PHQ-2 Score 2 11/18/2023 [facility] [place] [facility] Occupat ional Health - Occupational Stress [...] exercise at this level? 0 min 04/02/2023 Adolescent Education Answer Date Record ed Getting School Help Needed Not on file 06/19 Food Insecurity Answer Date Recorded Within the past 12 months, d id you worry that your food would run out before you got money to buy more? Patient refused 2022 Within the past 12 months, d id the food you bought just not last and you didn? t have money to get more? Patient refused 08/18/2023 Housing Stability Answer Date Recorded Do you have housing? Patient refused 08/18/2023 Are you worried about losing your housing? Patie nt refused 08/18/2023 Financial Resource Strain Answer Date R ecorded Within the past 12 months, h ave you or your family members you live with been unable to get utilities (heat, electricity) when it was really needed? Patient refused 023 Transportation Needs Answer Date Record ed Within the past 12 months, h as lack of transportation kept you from medical appointments, getting your medicines, non-medical meetings or appointments, work, or from getting things that you need? 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 documented as of this encounter Care Teams Interpreter For The Deaf Relationship Specialty [place] [address] [place] [address] PCP - General Family Practice 01/22/11 Blanca Choi RN Personal Advocate & Liaison (PAL) Nurse 09/16/22 01/24/24 Fred Ovalle MD [address] [place] [address] Urology 10/13/22 [place] [address] [place] [address] Assigned PCP 12/13/22 Fred Ovalle MD [address] [place] [id number] Assigned Surgical Provider 01/10/23 Chris Mcmahan MD [facility] NEUROLOGICAL [facility] [address] [place] [address] Neurology 02/21/23 Dax Menon MD [facility] [address] [place] [phone] Urology 02/21/23 documented as of this encounter
--- OUTSIDE RECORDS SUMMARY | 2024-02-06 15:05 | XMS_ITS | Encounter Summary ---
Author Name Unknown Organization [address] Address [address] [place] [address] Care Team Providers Care Bass String Winder Name Role Phone Teresita Garcia MD Primary Care Provider [phone] Blanca Choi RN Unavailable Fred Ovalle MD Unavailable [phone] Teresita Garcia MD Unavailable Fred Ovalle MD Unavailable [phone] Chris Mcmahan MD Unavailable [phone] Dax Menon MD Unavailable Reason for Referral * Diagnostic Imaging XR (Routine) - Pending Review Specialty Diagnoses / Procedures [facility] Referred To Contact Radiology. Diagnoses Acute midline low back pain without sciatica Procedures XR Lumbar Spine 2/3 Views Tianna Andujar PA-C [address] [place] [address] Referral ID Status Reason Start Date Expiration Date V isits Requested Visits Authorized [id number] Pending Review 11/18/2023 11/17/2024 1 1 US SECURITY DIRECTOR Reason for Visit * Reason Comments Back Pain Strong ache, no burn ing, stabbing pain. Will have some sharp pains Nausea Lower mid back pain x week Consult For BP has been running a little elevated Encounter Details Date Type Department Care Team (Late st Contact Info) Description 11/18/2023 11:00 AM CAMPUS SECURITY DIRECTOR Office Visit [facility] [id number] [place] [address] [phone] Tianna Andujar PA-C [address] [place] [address] Acute midline low back pain without sciatica (Primary Dx); Functional quadriplegia secondary to MS (H); Suprapubic catheter (H); Nausea; Acute cystitis without hematuria Social History Tobacco Use Types Packs/Day Years [...] 04/02/2023 How often do you attend chur or sikh services? Never 04/02/2023 Do you belong to any clubs o r organizations such as yazidi groups, unions, fraternal [...] Answer Date Recorded PHQ-2 Score 2 11/18/2023 [facility] [place] of Occupat ional Health - Occupational Stress [...] Sign Reading Time Taken Comments Blood Pressure 137/82 11/18/2023 10:59 AM CAMPUS SECURITY DIRECTOR Pulse 78 11/18/2023 10:59 AM CAMPUS SECURITY DIRECTOR Temperature 36.5 ??C (97.7 ??F) 11/18/2023 10:[address] Respiratory Rate 14 11/18/2023 10:59 AM CAMPUS SECURITY DIRECTOR Oxygen Saturation 96% 11/18/2023 10:59 AM CAMPUS SECURITY DIRECTOR Inhaled Oxygen Concentration - - Weight - - Height - - Body Mass Index - - documented in this encounter Patient Instructions * Patient Instructions* Tianna Andujar PA-C - 11/18/2023 11:00 AM CAMPUS SECURITY DIRECTOR Obtain x-ray lumbar spine if symptoms not improving in the next 2 weeks. Call us if this is the case so we can get the scheduling number for you for the hospital (they have a lift). Can use ice topically 10-15 minutes at at time. Tylenol 1000 mg every 8 hours as needed for pain. US SECURITY DIRECTOR documented in this encounter Progress Notes * Tianna Andujar PA-C - 11/18/2023 11:00 AM CST Assessment & Plan Acute midline low back pain without sciatica Symptoms seem to be musculoskeletal. He is worried about the kidneys or other organ involvement. Wewill check labs as noted below. He has had no fall and thus can wait to perform x-ray but should be obtained in pain persists for another 2 weeks or more. Will need to complete at hospital due to lack of mobility. I discussed patient with Dr. Garcia, patient's PCP - Basic metabolic panel (Ca, Cl, CO2, Creat, Gluc, K, Na, BUN); Future - CBC with platelets; Future - UA Macroscopic with reflex to Microscopic and Culture - Lab Collect; Future - XR Lumbar Spine 2/3 Views; Future - Basic metabolic panel (Ca, Cl, CO2, Creat, Gluc, K, Na, BUN) - CBC with platelets - UA Macroscopic with reflex to Microscopic and Culture - Lab Collect - acetaminophen (TYLENOL) 500 MG tablet; Take 2 tablets (1,000 mg) by mouth every 8 hours as neededfor pain - Urine Microscopic Exam - Urine Culture Functional quadriplegia secondary to MS (H) Uses electric wheelchair. Follows neurology for MS. Suprapubic catheter (H) Changed every month by RN at his place of living, [facility] [place] Nausea Unclear etiology. Concern about more systemic cause for pain thus obtained labs as noted above. Ordering of each unique test Prescription drug management 32 minutes spent by me on the date of the encounter doing chart review, history and exam, documentation and further activities per the note Patient Instructions Obtain x-ray lumbar spine if symptoms not improving in the next 2 weeks. Call us if this is the case so we can get the scheduling number for you for the hospital (they have a lift). Can use ice topically 10-15 minutes at at time. Tylenol 1000 mg every 8 hours as needed for pain. Rashel Zaidi is a 62 year old, presenting for the following health issues: Back Pain (Strong ache, no burning, stabbing pain. Will have some sharp pains ), Nausea (Lower mid back pain x week ), and Consult For (BP has been running a little elevated ) 08/18/2023 1:04 PM Additional Questions Roomed by Damon Rueda CMA History of Present Illness Back Pain: He presents for follow up of back pain. Patient's back pain is a new problem. Original cause of back pain: not sure First noticed back pain: in the last week Patient feels back pain: rarelyLocation of back pain: Right lower back and left lower back Description of back pain: dull ache Back pain spreads: nowhere Since patient first noticed back pain, pain is: gradually worsening Does back pain interfere with his job: Not applicable On a scale of 1-10 (10 being the worst), patient describes pain as: 6 What makes back pain worse: sitting Acupuncture: not tried Acetaminophen: helpful Activity or exercise: not tried Chiropractor: Not tried Cold: not tried Heat: not tried Massage: not tried Muscle relaxants: not tried NSAIDS: not tried Opioids: not tried Physical Therapy: not tried Rest: not helpful Steroid Injection: not tried Stretching: not helpful Surgery: not tried TENS unit: not tried Topical pain relievers: not tried Other healthcare providers patient is seeing for back pain: None He eats 2-3 servings of fruits and vegetables daily.He consumes 2 sweetened beverage(s) daily.He exercises with enough effort to increase his heart rate 9 or less minutes per day. He exercises with enough effort to increase his heart rate 3 or less days per week. He is taking medications regularly. The pain has been dull for the past week but pain worsened significantly yesterday. It became more sharp yesterday. Pain is midline in the lower back with radiation across the back. Catheter changed 2 weeks ago, typically changed once monthly. He has history of recurrent UTI. He does not feel like he currently has symptoms of UTI (MS symptoms usually worsen). He is having some nausea, no vomiting. He denies any fevers or chills. Objective BP 137/82 (BP Location: Right arm, Patient Position: Chair, Cuff Size: Adult Regular) Pulse 78 Temp 97.7 ??F (36.5 ??C) (Oral) Resp 14 SpO2 96% There is no height or weight on file to calculate BMI. Physical Exam GENERAL: No acute distress HEENT: Normocephalic, EXTREMITIES: No midline tenderness over the thoracic or lumbar spine. Some tenderness along the lumbar paraspinous muscles. : No CVA tenderness bilaterally. NEURO: Alert and non-focal Signed Electronically by: Tianna Andujar PA-C US SECURITY DIRECTOR documented in this encounter Miscellaneous Notes * Addendum Note - Tianna Andujar PA-C - 11/18/2023 11:00 AM CSTAddended by: TIANNA ANDUJAR on: 11/20/2023 03:59 PM Modules accepted: Orders US SECURITY DIRECTOR documented in this encounter Plan of Treatment Scheduled Orders Name Type Priority Associated Diagnoses Orde r Schedule XR Lumbar Spine 2/3 Views Imaging Routine Acute midline low back pain without sciatica Expected: 11/18/2023 (Approximate), Expires: 11/18/2024 documented as of this encounter Procedures Procedure Name Priority Date/Time Associated Diagnosis Comments UA MACROSCOPIC WITH REFLEX TO MICRO AND CULTURE Routine 11/18/2023 11:54 AM CAMPUS SECURITY DIRECTOR Acute midline low back pain without sciatica URINE MICROSCOPIC EXAM Routine 11/18/2023 11:54 AM CAMPUS SECURITY DIRECTOR Acute midline low back pain without sciatica URINE CULTURE Routine 11/18/2023 11:54 AM CAMPUS SECURITY DIRECTOR Acute midline low back pain without sciatica BASIC METABOLIC PANEL Routine 11/18/2023 11:45 AM CAMPUS SECURITY DIRECTOR Acute midline low back pain without sciatica CBC WITH PLATELETS Routine 11/18/2023 11 :45 AM CAMPUS SECURITY DIRECTOR Acute midline low back pain without sciatica documented in this encounter Results * (ABNORMAL) Urine Culture (11/18/2023 11:54 AM CAMPUS SECURITY DIRECTOR) Culture 10,000-50,000 CFU/mL Enterococcus faecalis(A) TAHIR 11/21/2023 4:33 AM CAMPUS SECURITY DIRECTOR [facility] Culture 10,000-50,000 CFU/mL Enterococcus faecalis(A) 11/21/2023 4:33 AM CAMPUS SECURITY DIRECTOR [facility] Urine URINE SPECIMEN FROM URINARY CONDUIT / Unknown Non-blood Collection / Unknown 11/18/2023 11:54 AM CAMPUS SECURITY DIRECTOR 11/18/2023 12:03 PM CAMPUS SECURITY DIRECTOR Narrative Organism Antibiotic Method Susceptibility Enterococcus faecalis Ampicillin TAHIR <=2 ug/mL: Susceptible Enterococcus faecalis Vancomycin TAHIR 1 ug/mL: Susceptible Enterococcus faecalis Nitrofurantoin TAHIR <=16 ug/mL: Susceptible Enterococcus faecalis Ampicillin TAHIR <=2 ug/mL: Susceptible Enterococcus faecalis Vancomycin TAHIR 1 ug/mL: Susceptible Enterococcus faecalis Nitrofurantoin TAHIR <=16 ug/mL: Susceptible Tianna Andujar PA-C LAB - MICRO GENERA L ORDERABLES [facility] Lab [address] [facility], [address] [place] [address], [facility] [phone] * (ABNORMAL) Urine Microscopic Exam (11/18/2023 11:54 AM CAMPUS SECURITY DIRECTOR) Bacteria Urine Few(A) None Seen /HPF TAHIR 11/18/2023 12:09 PM CAMPUS SECURITY DIRECTOR [facility] RBC Urine None Seen 0-2 /HPF /HPF TAHIR 11/18/2023 12:09 PM CAMPUS SECURITY DIRECTOR [facility] WBC Urine 10-25(A) 0-5 /HPF /HPF TAHIR 11/18/2023 12:09 PM CAMPUS SECURITY DIRECTOR [facility] WBC Clumps Urine Present(A) None Seen /HPF TAHIR 11/18/2023 12:09 PM CAMPUS SECURITY DIRECTOR [facility] Mucus Urine Present(A) None Seen /LPF TAHIR 11/18/2023 12:09 PM CAMPUS SECURITY DIRECTOR [facility] Urine URINE SPECIMEN FROM URINARY CONDUIT / Unknown Non-blood Collection / Unknown 11/18/2023 11:54 AM CAMPUS SECURITY DIRECTOR 11/18/2023 11:54 AM CAMPUS SECURITY DIRECTOR Tianna Andujar PA-C LAB - URINE ORDERA BLES [facility] [address] [facility] (no room number, 1st floor of clinic) [place] [address], [facility] [phone] * (ABNORMAL) UA Macroscopic with reflex to Microscopic and Culture - Lab Collect (11/18/2023 11:54 AMCST) Color Urine Yellow Colorless, Straw, Light Yellow, Yellow 11/18/2023 12:03 PM CAMPUS SECURITY DIRECTOR [facility] Appearance Urine Clear Clear 11/18/19 12:03 PM CAMPUS SECURITY DIRECTOR [facility] Glucose Urine Negative Negative mg/dL 11/18/2023 12:03 PM CAMPUS SECURITY DIRECTOR [facility] Bilirubin Urine Negative Negative 12:03 PM CAMPUS SECURITY DIRECTOR [facility] Ketones Urine >=160(A) Negative mg/dL 11/18/2023 12:03 PM CAMPUS SECURITY DIRECTOR [facility] Specific [place] Urine 1.010 1.003 - 1.035 11/18/2023 12:03 PM CAMPUS SECURITY DIRECTOR [facility] Blood Urine Negative Negative 11/18/2023 12:03 PM CAMPUS SECURITY DIRECTOR [facility] pH Urine 6.0 5.0 - 7.0 11/18/2023 12:03 PM CAMPUS SECURITY DIRECTOR [facility] Protein Albumin Urine Negative Negative mg/dL 11/18/2023 12:03 PM CAMPUS SECURITY DIRECTOR [facility] Urobilinogen Urine 0.2 0.2, 1.0 E.U./dL 11/18/2023 12:03 PM CAMPUS SECURITY DIRECTOR [facility] Nitrite Urine Negative Negative 11/18/2023 12:03 PM CAMPUS SECURITY DIRECTOR [facility] Leukocyte Esterase Urine Moderate(A) Negative 11/18/2023 12:03 PM CAMPUS SECURITY DIRECTOR [facility] Urine URINE SPECIMEN FROM URINARY CONDUIT / Unknown Non-blood Collection / Unknown 11/18/2023 11:54 AM CAMPUS SECURITY DIRECTOR 11/18/2023 11:54 AM CAMPUS SECURITY DIRECTOR Tianna Andujar PA-C LAB - URINE ORDERA BLES CR LABORATORY [facility] [address] [facility] (no room number, 1st floor of [facility]) [place] [address], [facility] [phone] * CBC with platelets (11/18/2023 11:45 AM CAMPUS SECURITY DIRECTOR) WBC Count 4.8 4.0 - 11.0 10e3/uL 11/18/2023 11:47 AM CAMPUS SECURITY DIRECTOR [facility] RBC Count 5.19 4.40 - 5.90 10e6/uL 11/18/2023 11:47 AM CAMPUS SECURITY DIRECTOR [facility] Hemoglobin 16.1 13.3 - 17.7 g/dL 11/18/2023 11:47 AM CAMPUS SECURITY DIRECTOR [facility] Hematocrit 46.0 40.0 - 53.0 % 11/18/2023 11:47 AM CAMPUS SECURITY DIRECTOR [facility] MCV 89 78 - 100 fL 11/18/2023 11:47 AM CAMPUS SECURITY DIRECTOR [facility] LAB[facility] MCH 31.0 26.5 - 33.0 pg 11/18/2023 11:47 AM CAMPUS SECURITY DIRECTOR CR LAB[facility]ATORY MCHC 35.0 31.5 - 36.5 g/dL 11/18/2023 11:47 AM CAMPUS SECURITY DIRECTOR [facility] LAB[facility] RDW 11.3 10.0 - 15.0 % 11/18/2023 11:47 AM CAMPUS SECURITY DIRECTOR [facility] LAB[facility] Platelet Count 190 150 - 450 10e3/uL 11/18/2023 11:47 AM CAMPUS SECURITY DIRECTOR [facility] Blood BLOOD SPECIMEN / Unknown Venipuncture / Unknown 11/18/2023 11:45 AM CAMPUS SECURITY DIRECTOR 11/18/2023 11:45 AM CAMPUS SECURITY DIRECTOR Tianna Andujar PA-C LAB - BLOOD ORDERA BLES CR LABORATORY [facility] [address] [facility] (no room number, 1st floor of clinic) [place] [address], [facility] [phone] * (ABNORMAL) Basic metabolic panel (Ca, Cl, CO2, Creat, Gluc, K, Na, BUN) (11/18/2023 11:45 AM CAMPUS SECURITY DIRECTOR) Sodium 137 135 - 145 mmol/L 11/18/2023 9:09 PM CAMPUS SECURITY DIRECTOR [facility] Comment:Reference intervals for this test were updated on 06/23/2023 to more accurately reflect our healthy population. There may be differences in the flagging of prior results with similar values performed with this method. Interpretation of those prior results can be made in the context of the updated reference intervals. Potassium 4.0 3.4 - 5.3 mmol/L 11/18/2023 9:09 PM CAMPUS SECURITY DIRECTOR [facility] Chloride 101 98 - 107 mmol/L 11/18/2023 9:09 PM CAMPUS SECURITY DIRECTOR [facility] Carbon Dioxide (CO2) 25 22 - 29 mmol/L 11/18/2023 9:09 PM CAMPUS SECURITY DIRECTOR [facility] Anion Gap 11 7 - 15 mmol/L 11/18/2023 9:09 PM CAMPUS SECURITY DIRECTOR [facility] Urea Nitrogen 7.5(L) 8.0 - 23.0 mg/dL 11/18/2023 9:09 PM CAMPUS SECURITY DIRECTOR [facility] Creatinine 0.74 0.67 - 1.17 mg/dL 11/18/2023 9:09 PM CAMPUS SECURITY DIRECTOR [facility] GFR Estimate >90 >60 mL/min/1. 73m2 11/18/2023 9:09 PM CAMPUS SECURITY DIRECTOR [facility] Calcium 9.1 8.8 - 10.2 mg/dL 11/18/2023 9:09 PM CAMPUS SECURITY DIRECTOR [facility] Glucose 93 70 - 99 mg/dL 11/18/2023 9:09 PM CAMPUS SECURITY DIRECTOR [facility] Blood BLOOD SPECIMEN / Unknown Venipuncture / Unknown 11/18/2023 11:45 AM CAMPUS SECURITY DIRECTOR 11/18/2023 11:45 AM CAMPUS SECURITY DIRECTOR Tianna Andujar PA-C LAB - BLOOD ORDERA BLES [facility] [address] [facility] [address] [facility], [address] [place] [id number] [phone] documented in this encounter Visit Diagnoses Diagnosis Acute midline low back pain without sciatica- Primary Functional quadriplegia secondary to MS (H) Multiple sclerosis Suprapubic catheter (H) Other cystostomy status Nausea Nausea alone Acute cystitis without hematuria Acute cystitis documented in this encounter Additional Health Concerns Assessment Noted Time PHQ-9 Depression Total Score: 4 11/17/19 24 3:48 PM CAMPUS SECURITY DIRECTOR documented as of this encounter Care Teams Bass String Winder Relationship Specialty [place] [address] [place], [place] [phone] PCP - General Family Practice 01/22/11 Blanca Choi, JAN Personal Advocate & Liaison (PAL) Nurse 09/16/22 01/24/24 Fred Ovalle MD [address] [address] Urology 10/13/22 [place] [address] [place], [place] [phone] Assigned PCP 12/13/22 Fred Ovalle MD [address] [place] [address] Assigned Surgical Provider 01/10/23 Chris Mcmahan MD [facility] [address] [place] [address] Neurology 02/21/23 Dax Menon MD [facility] [address] [address] Urology 02/21/23 documented as of this encounter
--- OUTSIDE RECORDS SUMMARY | 2024-02-06 15:05 | XMS_ITS | Encounter Summary ---
Author Name Unknown Organization [place] Address [address] [facility] [place] [address] Care Team Providers Care Production Tool Engineer Name Role Phone Teresita Garcia MD Primary Care Provider [phone] Fred Ovalle MD Unavailable [phone] Teresita Garcia MD Unavailable Fred Ovalle MD Unavailable [phone] Chris Mcmahan MD Unavailable [phone] Dax Menon MD Unavailable Reason for Visit * Reason Onset Date Comments Derm Problem 02/05/2024 Encounter Details Date Type Department Care Team (Late st Contact Info) Description 02/05/[address] [address] [place] [id number] [place] [address] Derm Problem Social History Tobacco Use Types Packs/Day Years [...] How often do you attend chur or church services? Never 11/26/2023 Do you belong to any clubs o r organizations such as muslim groups, unions, fraternal [...] Answer Date Recorded PHQ-2 Score 0 11/26/2023 [facility] of Occupat ional Health - Occupational Stress [...] Encounter - Mary More RN - 02/05/2024 2:29 PM CDT See [employer] message. Mary More RN * Telephone Encounter - Mary More RN - 02/05/2024 1:34 PM CDT See [employer] message for picture. Mary More RN * Telephone Encounter - Mary More RN - 02/05/2024 12:53 PM CDT Located fax on fax machine and to Dr. Garcia to review. Mary More RN * Telephone Encounter - Mary More RN - 02/05/2024 12:40 PM CDT JAN Shaver [phone] calling from [facility]. Dejuan has a rash on his face. Rash started yesterday. Red, spotted rash that is around nose, mouth area up between eyebrows. Rash is itching and irritated but not painful. No raised blisters. They put hydrocortisone on yesterday but that actually made the rash worse today. Sivakumar advised he be seen. He got upset as he is having difficulty getting around and would need to get medical transport and hard for him to go to visits. Patient wants to try Bacitracin before visit. She did tell him if worsens over weekend he needs to go in for visit. Bacitracin is patient wish. Hydrocortisone made rash redder. Sivakumar did fax note/order over. I am also having Ebdaniel see if they can get picture into [employer] for you to see. Please advise. Mary More RN documented in this encounter Plan of Treatment Not on file documented as of this encounter Visit Diagnoses Not on filedocumented in this encounter Additional Health Concerns Assessment Noted Time PHQ-9 Depression Total Score: 2 11/26/19 24 10:47 AM SPECIAL NEEDS LIBRARIAN documented as of this encounter Care Teams Production Tool Engineer Relationship Specialty [place] [address] [place] [address] PCP - General Family Practice 01/22/11 Fred Ovalle MD [address] [address] Urology 10/13/22 [place] [address] [facility] [place] [place] [address] Assigned PCP 12/13/22 Fred Ovalle MD [address] [place] [address] Assigned Surgical Provider 01/10/23 Chris Mcmahan MD [facility] [address] [place], [place] [phone] Neurology 02/21/23 Dax Menon MD [facility] [address] [place] [address] Urology 02/21/23 documented as of this encounter
--- OUTSIDE RECORDS SUMMARY | 2024-02-06 15:05 | XMS_ITS | Encounter Summary ---
Author Name Unknown Organization [place] Address [address] [place] [address] Care Team Providers Care Customer Services Supervisor Name Role Phone Teresita Garcia MD Primary Care Provider Blanca Choi RN Unavailable [phone] Fred Ovalle MD Unavailable Teresita Garcia MD Unavailable Fred Ovalle MD Unavailable [phone] Chris Mcmahan MD Unavailable Dax Menon MD Unavailable Teresita Garcia MD Unavailable Encounter Details Date Type Department Care Team (Late st Contact Info) Description 05/21/2023 [facility] Medical Advice [address] [address] Rita Nye Social History Tobacco Use Types Packs/Day Years [...] week 04/02/2023 How often do you attend [facility] or [facility] services? Never 04/02/2023 Do you belong to [...] Answer Date Recorded PHQ-2 Score 0 05/08/2023 [facility] [place] of Occupat ional Health - Occupational Stress [...] place to sleep or slept in a usp (including now)? No 04/02/2023 Sex and Gender [...] AM CDT documented as of this encounter Plan of Treatment Not on file documented as of this encounter Visit Diagnoses Not on filedocumented in this encounter Additional Health Concerns Assessment Noted Time PHQ-9 Depression Total Score: 2 05/08/20 23 11:12 AM CDT documented as of this encounter Care Teams Customer Services Supervisor Relationship Specialty [place] [address] [place] [address] PCP - General Family Practice 01/22/11 Blanca Choi, RN Personal Advocate & Liaison (PAL) Nurse 09/16/22 01/24/24 Fred Ovalle MD [address] [address] Urology 10/13/22 [place] [address] [place], [place] [phone] Assigned PCP 12/13/22 Fred Ovalle MD [address] [place] [address] Assigned Surgical Provider 01/10/23 Chris Mcmahan MD [facility] [address] [place] [address] Neurology 02/21/23 aDx Menon MD [facility] [address] [phone] Urology 02/21/23 [place] [address] [place] [address] Assigned Pain Medication Provider 04/11/23 06/19/23 documented as of this encounter
--- OUTSIDE RECORDS SUMMARY | 2024-02-06 15:05 | XMS_ITS | Encounter Summary ---
Author Name Unknown Organization [place] Address [address] [facility] [place] [address] Care Team Providers Care Recharger Name Role Phone Teresita Garcia MD Primary Care Provider [phone] Blanca Choi RN Unavailable [phone] Fred Ovalle MD Unavailable Teresita Garcia MD Unavailable Fred Ovalle MD Unavailable [phone] Chris Mcmahan MD Unavailable Dax Menon MD Unavailable Reason for Visit * Reason Onset Date Comments Patient Request 06/30/2023 Patients Nurse c alled to let us know that his UA results came back. Encounter Details Date Type Department Care Team (Late st Contact Info) Description 06/30/2023 Telephone [facility] [place] [address] [facility] [address] [place] [address] Fred Ovalle MD [address] [place] [address] Patient Request (Patients Nurse called to let us know that his UA results came back.) Social History Tobacco Use Types Packs/Day Years [...] week 04/02/2023 How often do you attend [facility] or [employer] services? Never 04/02/2023 Do you belong to any clubs o r organizations such as sabianist groups, unions, fraternal [...] Answer Date Recorded PHQ-2 Score 0 05/08/2023 [facility] - Occupational Stress [...] place to sleep or slept in a long-term (including now)? No 04/02/2023 Adolescent Education Answer Date Record ed Getting School Help Needed Not on file 06/19 Sex and Gender Information Value Date Recorded Sex Assigned at Male 06/10/2021 1:42 PM CDT Gender Identity Male 06/10/2021 1:42 PM CDT Sexual Orientation Straight 06/10/2021 1: 42 PM CDT documented as of this encounter Miscellaneous Notes * Telephone Encounter - Sangita Kahn RN - 06/30/2023 2:14 PM CDT Left message for charge nurse to call back to re-fax UA/UC results as we never received them. Sangita Kahn RN, BSN Photo Colorer [facility] * Telephone Encounter - Wan Steele - 06/30/2023 11:56 AM CDT [facility] Phone Message May a detailed message be left on voicemail: no Reason for Call: Other: Patients Nurse called to let us know that his UA results came back and it looks as though the patient has a UTI. Please call Zoie back to discuss further Action Taken: Other: [facility] Travel Screening: Not Applicable documented in this encounter Plan of Treatment Not on file documented as of this encounter Visit Diagnoses Not on filedocumented in this encounter Additional Health Concerns Assessment Noted Time PHQ-9 Depression Total Score: 2 05/08/20 23 11:12 AM CDT documented as of this encounter Care Teams Recharger Relationship Specialty [place] [address] [place], [place] [phone] PCP - General Family Practice 01/22/11 Blanca Choi RN Personal Advocate & Liaison (PAL) Nurse 09/16/22 01/24/24 Fred Ovalle MD [address] [place] [address] Urology 10/13/22 [place] [address] [place], [place] [phone] Assigned PCP 12/13/22 Fred Ovalle MD [address] [place] [address] Assigned Surgical Provider 01/10/23 Chris Mcmahan MD [facility] NEUROLOGICAL [facility] [address] [place] [address] Neurology 02/21/23 Dax Menon MD [facility] [address] [place] [phone] Urology 02/21/23 documented as of this encounter
--- OUTSIDE RECORDS SUMMARY | 2024-02-06 15:05 | XMS_ITS | Encounter Summary ---
Author Name Unknown Organization [place] Address [address] [facility] [place] [address] Care Team Providers Care Garden Equipment Mechanic Name Role Phone Teresita Garcia MD Primary Care Provider Blanca Choi RN Unavailable Fred Ovalle MD Unavailable Teresita Garcia MD Unavailable Fred Ovalle MD Unavailable Chris Mcmahan MD Unavailable Dax Menon MD Unavailable Reason for Visit * Reason Onset Date Comments Home Care/Hospice 12/31/2023 Encounter Details Date Type Department Care Team (Late st Contact Info) Description 12/31/2023 Telephone [facility] [address] [place] [address] [place] [address] [place] [address] Home Care/Hospice Social History Tobacco Use Types Packs/Day Years [...] often do you attend chur ch or gnosticist services? Never 11/26/2023 Do you belong to any clubs o r organizations such as taoism groups, unions, fraternal [...] Answer Date Recorded PHQ-2 Score 0 11/26/2023 [facility] of Occupat ional Health - Occupational Stress [...] encounter Miscellaneous Notes * Telephone Encounter - Syl Laird MA - 01/01/2024 1:53 PM CDT Faxed to [phone] [facility] [address] Ongoing fpc visits for catheter management and PRN for catheter concerns, [facility] for shower assistance. Mellissa burgess * Telephone Encounter - Blanca Choi RN - 12/31/2023 12:16 PM CDT RN MEG placed call to [facility] Advised below requested orders are approved by Dr. Jose Choi, Registered Nurse, MEG (Patient Advocate Liaison) [facility] [phone] * Telephone Encounter - Teresita Garcia MD - 12/31/2023 12:12 PM CDT Approved. * Telephone Encounter - Suly Simon RN - 12/31/2023 11:15 AM CDT Home Care is calling regarding an established patient with [facility]. 05/05/2023 1:10 PM Home Care Information Date of Home Care episode start 05/05/[address] Garcia Date provider agreed to follow 05/05/2023 Commercial Front Load Driver Name/Phone Number Zoie Murrell [phone] Home Care agency [facility] Requesting orders from: Teresita Garcia Provider is following patient: Yes Is this a 60-day recertification request? Yes Orders Requested Longterm Request for recertification Frequency: 1 every other wk x 2 months and 2 prn visits. Catheter management TRAVEL ACCOMMODATIONS RATER (Home Health Aide) Request for recertification Frequency: 2 x wk for 2 months. Assist with bathing. Information was gathered and will be sent to provider for review. RN will contact Home Care with information after provider review. Confirmed ok to leave a detailed message with call back. Contact information confirmed and updated as needed. Tiffani [phone] Suly Simon RN documented in this encounter Plan of Treatment Not on file documented as of this encounter Visit Diagnoses Not on filedocumented in this encounter Additional Health Concerns Assessment Noted Time PHQ-9 Depression Total Score: 2 11/26/19 24 10:47 AM MUSIC SPECIALIST documented as of this encounter Care Teams Garden Equipment Mechanic Relationship Specialty [place] [address] [place] [address] PCP - General Family Practice 01/22/11 Blanca Choi RN Personal Advocate & Liaison (PAL) Nurse 09/16/22 01/24/24 Fred Ovalle MD [address] [facility] [address] [place] [address] Urology 10/13/22 [place] [address] [place], [place] [phone] Assigned PCP 12/13/22 Fred Ovalle MD [address] [place] [address] Assigned Surgical Provider 01/10/23 Chris Mcmahan MD [facility] [address] [place] [address] Neurology 02/21/23 Dax Menon MD [facility] [address] [facility] [address] [place] [phone] Urology 02/21/23 documented as of this encounter
--- OUTSIDE RECORDS SUMMARY | 2024-02-06 15:05 | XMS_ITS | Encounter Summary ---
Author Name Unknown Organization [place] Address [address] [facility] [place] [address] Care Team Providers Care Assistant Professor Of Radiology Name Role Phone Teresita Garcia MD Primary Care Provider [phone] Blanca Choi RN Unavailable [phone] Fred Ovalle MD Unavailable Teresita Garcia MD Unavailable Fred Ovalle MD Unavailable [phone] Chris Mcmahan MD Unavailable Dax Menon MD Unavailable Reason for Visit * Reason Onset Date Comments Home Care/Hospice 01/14/2024 Encounter Details Date Type Department Care Team (Late st Contact Info) Description 01/14/2024 Telephone [facility] [address] [place] [address] [place] [address] [place] [address] Home Care/Hospice Social History Tobacco [...] often do you attend chur ch or anglican services? Never 11/26/2023 Do you belong to any clubs o r organizations such as rastafari groups, unions, fraternal [...] Answer Date Recorded PHQ-2 Score 0 11/26/2023 [facility] Occupat ional Health - [...] encounter Miscellaneous Notes * Telephone Encounter - Ct Simpson RN - 01/14/2024 3:00 PM CDT Incoming call from patient's home care agency. They requested a fax number to send orders to. I gave them the [employer] fax number. Ct Simpson RN documented in this encounter Plan of Treatment Not on file documented as of this encounter Visit Diagnoses Not on filedocumented in this encounter Additional Health Concerns Assessment Noted Time PHQ-9 Depression Total Score: 2 11/26/19 24 10:47 AM ASSOCIATE AUTOMATION ENGINEER documented as of this encounter Care Teams Assistant Professor Of Radiology Relationship Specialty [place] [address] [place] [address] PCP - General Family Practice 01/22/11 Blanca Choi, RN Personal Advocate & Liaison (PAL) Nurse 09/16/22 01/24/24 Fred Ovalle MD [address] [address] Urology 10/13/22 [place] [address] [place] [address] Assigned PCP 12/13/22 Fred Ovalle MD [address] [place] [address] Assigned Surgical Provider 01/10/23 Chris Mcmahan MD [facility] NEUROLOGICAL [facility] [address] [place] [address] Neurology 02/21/23 Dax Menon MD [facility] [address] [place] [phone] Urology 02/21/23 documented as of this encounter
--- OUTSIDE RECORDS SUMMARY | 2024-02-06 15:05 | XMS_ITS | Encounter Summary ---
Author Name Unknown Organization [facility] Address [address] [place] [address] Care Team Providers Care Technology Teacher Name Role Phone Teresita Garcia MD Primary Care Provider Blanca Choi RN Unavailable Fred Ovalle MD Unavailable Teresita Garcia MD Unavailable Fred Ovalle MD Unavailable [phone] Chris Mcmahan MD Unavailable [phone] Dax Menon MD Unavailable Reason for Visit * Reason Comments Wellness Visit Annual / sinus - run ny nose (from cocaine use) Encounter Details Date Type Department Care Team (Late st Contact Info) Description 11/26/2023 11:30 AM CHANGE MANAGEMENT SPECIALIST Office Visit [facility] [address] [place] [address] Teresita [place] MD [id number] [place] [id number] Encounter for Medicare annual wellness exam (Primary Dx); Screen for colon cancer; Major depressive disorder, single episode, mild (H24); MS (multiple sclerosis) (H); Recurrent UTI; Non-seasonal allergic rhinitis, unspecified trigger Social History Tobacco Use Types Packs/Day Years [...] How often do you attend chur or jain services? Never 11/26/2023 Do you belong to any clubs o r organizations such as anabaptist groups, unions, fraternal [...] Answer Date Recorded PHQ-2 Score 0 11/26/2023 [facility] - Occupational Stress [...] Comments Blood Pressure 109/68 11/26/2023 10:52 AM CHANGE MANAGEMENT SPECIALIST Pulse 73 11/26/2023 10:52 AM CHANGE MANAGEMENT SPECIALIST Temperature 36.7 ??C (98.1 ??F) 11/26/2023 1 0:52 AM CHANGE MANAGEMENT SPECIALIST Respiratory Rate 12 11/26/2023 10:5 2 AM CHANGE MANAGEMENT SPECIALIST Oxygen Saturation 94% 11/26/2023 10: 52 AM CHANGE MANAGEMENT SPECIALIST Inhaled Oxygen Concentration - - Weight 75.8 kg (167 lb) 11/26/2023 10:5 2 AM CHANGE MANAGEMENT SPECIALIST wheel chair bound Height 170.2 cm (5' 7) 11/26/2023 10:5 2 AM CHANGE MANAGEMENT SPECIALIST Body Mass Index 26.16 11/26/2023 10:52 AM CHANGE MANAGEMENT SPECIALIST documented in this encounter Patient Instructions * Patient Instructions* Teresita Garcia MD - 11/26/2023 11:30 AM CHANGE MANAGEMENT SPECIALIST Images from the original note were not included. Preventive Care Advice This is general advice given by our system to help you stay healthy. However, your care team may have specific advice just for you. Please talk to your care team about your preventive care needs. Nutrition Eat 5 or more servings of fruits and vegetables each day. Try wheat bread, brown rice and whole grain pasta (instead of white bread, rice, and pasta). Get enough calcium and vitamin D. Check the label on foods and aim for 100% of the RETURN TO VENDOR (recommendeddaily allowance). Lifestyle Exercise at least 150 minutes each week (30 minutes a day, 5 days a week). Do muscle strengthening activities 2 days a week. These help control your weight and prevent disease. No smoking. Wear sunscreen to prevent skin cancer. Have a dental exam and cleaning every 6 months. Yearly exams See your health care team every year to talk about: Any changes in your health. Any medicines your care team has prescribed. Preventive care, family planning, and ways to prevent chronic diseases. Shots (vaccines) HPV shots (up to age 26), if you've never had them before. Hepatitis B shots (up to age 59), if you've never had them before. COVID-19 shot: Get this shot when it's due. Flu shot: Get a flu shot every year. Tetanus shot: Get a tetanus shot every 10 years. Pneumococcal, hepatitis A, and RSV shots: Ask your care team if you need these based on your risk. Shingles shot (for age 50 and up). General health tests Diabetes screening: Starting at age 35, Get screened for diabetes at least every 3 years. If you are younger than age 35, ask your care team if you should be screened for diabetes. Cholesterol test: At age 39, start having a cholesterol test every 5 years, or more often if advised. Bone density scan (DEXA): At age 50, ask your care team if you should have this scan for osteoporosis (brittle bones). Hepatitis C: Get tested at least once in your life. STIs (sexually transmitted infections) Before age 24: Ask your care team if you should be screened for STIs. After age 24: Get screened for STIs if you're at risk. You are at risk for STIs (including HIV) if: You are sexually active with more than one person. You don't use condoms every time. You or a partner was diagnosed with a sexually transmitted infection. If you are at risk for HIV, ask about PrEP medicine to prevent HIV. Get tested for HIV at least once in your life, whether you are at risk for HIV or not. Cancer screening tests Cervical cancer screening: If you have a cervix, begin getting regular cervical cancer screening tests at age 21. Most people who have regular screenings with normal results can stop after age 65. Talk about this with your provider. Breast cancer scan (mammogram): If you've ever had breasts, begin having regular mammograms starting at age 40. This is a scan to check for breast cancer. Colon cancer screening: It is important to start screening for colon cancer at age 45. Have a colonoscopy test every 10 years (or more often if you're at risk) Or, ask your provider about stool tests like a FIT test every year or Cologuard test every 3 years. To learn more about your testing options, visit: https://[email or web address]/067877.pdf. For help making a decision, visit: https://Abcellute.[employer]/le14264. Prostate cancer screening test: If you have a prostate and are age 55 to 69, ask your provider if you would benefit from a yearly prostate cancer screening test. Lung cancer screening: If you are a current or former smoker age 50 to 80, ask your care team if ongoing lung cancer screenings are right for you. For informational purposes only. Not to replace the advice of your health care provider. Copyright ?? 2022 [facility]. All rights reserved. Clinically reviewed by the [facility] Transitions Program. Wanderfly [id number] - REV 10/21. Learning About Stress What is stress? Stress is your body's response to a hard situation. Your body can have a physical, emotional, or mental response. Stress is a fact of life for most people, and it affects everyone differently. What causes stress for you may not be stressful for someone else. A lot of things can cause stress. You may feel stress when you go on a job interview, take a test, or run a race. This kind of short-term stress is normal and even useful. It can help you if you needto work hard or react quickly. For example, stress can help you finish an important job on time. Long-term stress is caused by ongoing stressful situations or events. Examples of long-term stress include long-term health problems, ongoing problems at work, or conflicts in your family. Long-term stress can harm your health. How does stress affect your health? When you are stressed, your body responds as though you are in danger. It makes hormones that speedup your heart, make you breathe faster, and give you a burst of energy. This is called the wiutd-he-revumk stress response. If the stress is over quickly, your body goes back to normal and no harm isdone. But if stress happens too often or lasts too long, it can have bad effects. Long-term stress can make you more likely to get sick, and it can make symptoms of some diseases worse. If you tense up when you are stressed, you may develop neck, shoulder, or low back pain. Stress is linked to high bloodpressure and heart disease. Stress also harms your emotional health. It can make you mckenzie, tense, or depressed. Your relationships may suffer, and you may not do well at work or school. What can you do to manage stress? You can try these things to help manage stress: Do something active. Exercise or activity can help reduce stress. Walking is a great way to get started. Even everyday activities such as housecleaning or yard work can help. Try yoga or korin chi. These techniques combine exercise and meditation. You may need some training at first to learn them. Do something you enjoy. For example, listen to music or go to a movie. Practice your hobby or do volunteer work. Meditate. This can help you relax, because you are not worrying about what happened before or what may happen in the future. Do guided imagery. Imagine yourself in any setting that helps you feel calm. You can use online videos, books, or a teacher to guide you. Do breathing exercises. For example: From a standing position, bend forward from the waist with your knees slightly bent. Let your arms dangle close to the floor. Breathe in slowly and deeply as you return to a standing position. Roll up slowly and lift your head last. Hold your breath for just a few seconds in the standing position. Breathe out slowly and bend forward from the waist. Let your feelings out. Talk, laugh, cry, and express anger when you need to. Talking with supportive friends or family, a counselor, or a dustin leader about your feelings is a healthy way to relieve stress. Avoid discussing your feelings with people who make you feel worse. Write. It may help to write about things that are bothering you. This helps you find out how much stress you feel and what is causing it. When you know this, you can find better ways to cope. What can you do to prevent stress? You might try some of these things to help prevent stress: Manage your time. This helps you find time to do the things you want and need to do. Get enough sleep. Your body recovers from the stresses of the day while you are sleeping. Get support. Your family, friends, and community can make a difference in how you experience stress. Limit your news feed. Avoid or limit time on social media or news that may make you feel stressed. Do something active. Exercise or activity can help reduce stress. Walking is a great way to get started. Where can you learn more? Go to https://www.Fanergies.net/patiented Enter N032 in the search box to learn more about Learning About Stress. Current as of: November 23, 2022?Content Version: 13.8 ?? [employer]. Care instructions adapted under license by your healthcare professional. If you have questions about a medical condition or this instruction, always ask your healthcare professional. [employer] disclaims any warranty or liability for your use of this information. GE MANAGEMENT SPECIALIST documented in this encounter Progress Notes * Teresita Garcia MD - 11/26/2023 11:30 AM CST Preventive Care Visit [facility] Teresita Garcia MD, Family Medicine Nov 26, 2023 SUBJECTIVE: Dejuan is a 62 year old, presenting for the following: Wellness Visit (Annual / sinus - runny nose (from cocaine use)) 11/26/2023 10:51 AM Additional Questions Roomed by regi burgess Are you in the first 12 months of your Medicare coverage? No HPI Today's PHQ-9 Score: 11/26/2023 10:47 AM PHQ-9 SCORE PHQ-9 Total Score MyChart 2 (Minimal depression) PHQ-9 Total Score 2 Have you ever done Advance Care Planning? (For example, a Health Directive, POLST, or a discussion with a medical provider or your loved ones about your wishes): No, advance care planning informationgiven to patient to review. Patient plans to discuss their wishes with loved ones or provider. Fall risk Wheel chair bound since 2011- Cognitive Screening 1) Repeat 3 items (village, kitchen, baby) 2) Clock draw: NORMAL 3) 3 item recall: Recalls 3 objects Results: NORMAL clock, 1-2 items recalled: COGNITIVE IMPAIRMENT LESS LIKELY Mini-CogTM Copyright S Kimberlee. Licensed by the author for use in [facility]; reprinted with permission (chinyere@[facility]). All rights reserved. Do you have sleep apnea, excessive snoring or daytime drowsiness? : no Reviewed and updated as needed this visit by clinical staff Tobacco Meds Reviewed and updated as needed this visit by Provider Social History Tobacco Use Smoking status: Never Smokeless tobacco: Never Substance Use Topics Alcohol use: Not Currently Comment: socially 06/10/2021 3:06 PM Alcohol Use Prescreen: >3 drinks/day or >7 drinks/week? Not Applicable Do you have a current opioid prescription? No Do you use any other controlled substances or medications that are not prescribed by a provider? None Current providers sharing in care for this patient include: Patient Care Team: Teresita Garcia MD as PCP - General (Family Practice) Blanca Choi, JAN as Personal Advocate & Liaison (PAL) (Nurse) Fred Ovalle MD as MD (Urology) Teresita Garcia MD as Assigned PCP Fred Ovalle MD as Assigned Surgical Provider Chris Mcmahan MD as (Neurology) Dax Menon MD as MD (Urology) The following health maintenance items are reviewed in Epic and correct as of today: Health Maintenance Topic Date Due NICOTINE/TOBACCO CESSATION COUNSELING Q 1 YR Never done Pneumococcal Vaccine: Pediatrics (0 to 5 Years) and At-Risk Patients (6 to 64 Years) (2 of 2 - PCV)05/20/2012 MEDICARE ANNUAL WELLNESS VISIT 06/14/2022 COLORECTAL CANCER SCREENING 07/29/2023 ANNUAL REVIEW OF HM ORDERS 08/28/2023 PHQ-9 05/26/2024 ADVANCE CARE PLANNING 06/26/2025 DEXA 05/01/2026 GLUCOSE 11/18/2026 LIPID 04/06/2028 DTAP/TDAP/TD IMMUNIZATION (3 - Td or Tdap) 06/14/2031 HEPATITIS C SCREENING Completed HIV SCREENING Completed DEPRESSION ACTION PLAN Completed INFLUENZA VACCINE Completed ZOSTER IMMUNIZATION Completed RSV VACCINE ( & 60+) Completed COVID-19 Vaccine Completed IPV IMMUNIZATION Aged Out HPV IMMUNIZATION Aged Out MENINGITIS IMMUNIZATION Aged Out RSV MONOCLONAL ANTIBODY Aged Out Patient Active Problem List Diagnosis MS (multiple sclerosis) (H) Cannabis abuse Spastic paresis (H) Seborrheic dermatitis of scalp Status post hip replacement Memj-Pgsmy-Lvzyjiv disease Atopic rhinitis Major depressive disorder, single episode, mild (H24) Osteoporosis Venous stasis Bladder spasm Family history of ischemic heart disease Neurogenic bladder Neurogenic bowel Organic sleep disorder Pseudomeningocele, acquired Retention of urine Spastic paraplegia Urinary tract infection associated with indwelling urethral catheter (H24) Presence of intrathecal baclofen pump Suprapubic catheter (H) Polyosteoarthritis, unspecified Presence of unspecified artificial hip joint Tachycardia Recurrent UTI Past Surgical History: Procedure Laterality Date COLONOSCOPY 06/01/2013 Procedure: COLONOSCOPY; Colonoscopy; Surgeon: Jacob Simmons MD; Location: GI CYSTOSCOPY CYSTOSCOPY FLEXIBLE, CYSTOSTOMY, INSERT TUBE SUPRAPUBIC, COMBINED N/A 04/09/2023 Procedure: 1. Flexible cystoscopy 2. Open cystostomy and suprapubic catheter placement; Surgeon: Fred Ovalle MD; Location: OR CYSTOSCOPY W/ LITHOLAPAXY / EHL N/A 06/19/2020 Procedure: CYSTOSCOPY CYSTOLITHOLAPAXY WITH HOLMIUM LASER; Surgeon: Dax Menon MD; Location: [facility]; Service: Urology JOINT REPLACEMENT bilat hip replacements MS CYSTOURETHROSCOPY INJ CHEMODENERVATION BLADDER N/A 06/19/2020 Procedure: INTRAVESICAL BOTOX INJECTION; Surgeon: Dax Menon MD; Location: [facility]; Service: Urology [facility] TOTAL HIP ARTHROPLASTY 1996, 2003 Hip Replacement, Total x2 due to Legg Perthes Social History Tobacco Use Smoking status: Never Smokeless tobacco: Never Substance Use Topics Alcohol use: Not Currently Comment: socially Family History Problem Relation Age of Onset Neurologic Disorder Mother Had MS in 1970 at age 30 C.A.D. Father Triple bypass Hypertension Father Hyperlipidemia Father Cerebrovascular Disease Father Current Outpatient Medications Medication Sig Dispense Refill acetaminophen (TYLENOL) 500 MG tablet Take 2 tablets (1,000 mg) by mouth every 8 hours as needed for pain 100 tablet 1 carBAMazepine (TEGRETOL XR) 200 MG 12 hr tablet Take 200 mg by mouth 2 times daily At 1200 & midnight ciprofloxacin (CIPRO) 500 MG tablet Take 1 tablet (500 mg) by mouth as needed (Take One) Take one pill today and take one with each catheter change Monthly 3 tablet 4 Docusate Sodium (COLACE PO) Take 100 mg by mouth 2 times daily as needed for constipation gabapentin (NEURONTIN) 400 MG capsule Take 400 mg by mouth 4 times daily At 10am, 4:00pm, 10pm and 4:00 am ketoconazole (NIZORAL) 2 % external shampoo APPLY TOPICALLY ONCE WEEKLY 360 mL 3 medication given by implanted intrathecal pump continuous Drug # 1: Baclofen (Lioresal) - Conc:500 mcg/mL - Total Dose / 24 hours: 46.13 mcg Pump [place] Volume: 20 mL Outside Clinic & Provider: Argelia Aguilar MD, Last Refill Date: 09/26/2022 Next Refill Date: 1-2 weeks before alarm goes off (no appointment was set up yet as of 02/22/2023). [place] Alarm Date: 03/25/2023 Pump Type: Synchromed II For [place]: If pump is within 7 days of depletion, pharmacist will enter a 'Pain Management Adult IP Consult' into the EHR, including 'IT pain pump management' as the reason for the consult. nitroFURantoin macrocrystal-monohydrate (MACROBID) 100 MG capsule Take 1 capsule (100 mg) by mouth 2 times daily for 7 days 14 capsule 0 polyethylene glycol (MIRALAX) powder Take 17 g by mouth daily as needed pramipexole (MIRAPEX) 0.125 MG tablet Take 0.125 mg by mouth 4 times daily At 12am, 0600, 12pm and 1800 Allergies Allergen Reactions Dilaudid [Hydromorphone] Nausea and Vomiting Pollen Extract Review of Systems Review of Systems Constitutional, HEENT, cardiovascular, pulmonary, gi and gu systems are negative, except as otherwise noted. OBJECTIVE: BP 109/68 (BP Location: Right arm, Patient Position: Sitting, Cuff Size: Adult Regular) Pulse 73 Temp 98.1 ??F (36.7 ??C) (Oral) Resp 12 Ht 1.702 m (5' 7) Wt 75.8 kg (167 lb) SpO2 94% BMI 26.16 kg/m?? Estimated body mass index is 26.16 kg/m?? as calculated from the following: Height as of this encounter: 1.702 m (5' 7). Weight as of this encounter: 75.8 kg (167 lb). Physical Exam GENERAL: alert and sits in wheel chair. NECK: no adenopathy, no asymmetry, masses, or scars RESP: lungs clear to auscultation - no rales, rhonchi or wheezes CV: regular rates and rhythm, normal S1 S2, no S3 or S4, and no murmur, click or rub ABDOMEN: soft, nontender, without hepatosplenomegaly or masses, bowel sounds normal, and diclofan pump in the R lower quadrant. MS: plus 2 swelling on both lower extremities to knees NEURO: wheel chair bound, can move upper extremities with weakness of 3/5. BACK: no CVA tenderness, no paralumbar tenderness ASSESSMENT / PLAN: Problem List Items Addressed This Visit MS (multiple sclerosis) (H) Pt was seen by Neurology and was discussed to stop Ocrivus and he will be following up with neurology. Atopic rhinitis Causing significant nasal discharge, uses flonase 2 puffs daily with good results. 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 Recurrent UTI Pt is still having pain in the lower part of the lower back, worse when he leans back against, I think his symptoms are musculoskeletal in nature. Pt was treated for UTI with Nitrofurantoin, I recommend to change rivera cath after UTI is resolved. Other Visit Diagnoses Encounter for Medicare annual wellness exam - Primary Screen for colon cancer Relevant Orders COLOGUARD(SmartyContent) Counseling Reviewed preventive health counseling, as reflected in patient instructions Healthy diet/nutrition BMI Estimated body mass index is 26.16 kg/m?? as calculated from the following: Height as of this encounter: 1.702 m (5' 7). Weight as of this encounter: 75.8 kg (167 lb). He reports that he has never smoked. He has never used smokeless tobacco. Appropriate preventive services were discussed with this patient, including applicable screening asappropriate for fall prevention, nutrition, physical activity, Tobacco-use cessation, weight loss and cognition. Checklist reviewing preventive services available has been given to the patient. Reviewed patients plan of care and provided an AVS. The Intermediate Care Plan ( asthma action plan, low back pain action plan, and migraine action plan) for Dejuan meets the Care Plan requirement. This Care Plan has been established and reviewed with the Patient. Signed Electronically by: Teresita Garcia MD Identified Health Risks Answers submitted by the patient for this visit: Patient Health Questionnaire (Submitted on 11/26/2023) If you checked off any problems, how difficult have these problems made it for you to do your work,take care of things at home, or get along with other people?: Somewhat difficult PHQ9 TOTAL SCORE: 2 KAMRON-7 (Submitted on 11/26/2023) KAMRON 7 TOTAL SCORE: 3 GE MANAGEMENT SPECIALIST documented in this encounter Miscellaneous Notes * Assessment & Plan Note - Teresita Garcia MD - 11/26/2023 11:21 AM CSTAssociated Problem(s): Major depressive disorder, single episode, mild (H24) Mainly situational, pt struggles with MS, he is wheel chair bound, 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 GE MANAGEMENT SPECIALIST * Assessment & Plan Note - Teresita Garcia MD - 11/26/2023 11:18 AM CSTAssociated Problem(s): Atopic rhinitis Causing significant nasal discharge, uses flonase 2 puffs daily with good results. GE MANAGEMENT SPECIALIST * Assessment & Plan Note - Teresita Garcia MD - 11/26/2023 11:12 AM CSTAssociated Problem(s): Recurrent UTI Pt is still having pain in the lower part of the lower back, worse when he leans back against, I think his symptoms are musculoskeletal in nature. Pt was treated for UTI with Nitrofurantoin, I recommend to change rivera cath after UTI is resolved. GE MANAGEMENT SPECIALIST * Assessment & Plan Note - Teresita Garcia MD - 11/26/2023 11:06 AM CSTAssociated Problem(s): MS (multiple sclerosis) (H) Pt was seen by Neurology and was discussed to stop Ocrivus and he will be following up with neurology. GE MANAGEMENT SPECIALIST documented in this encounter Plan of Treatment Not on file documented as of this encounter Results * COLOGUARD(SmartyContent) (12/16/2023 1:30 PM CDT) COLOGUARD-ABSTRACT Negative Negative 2023 4:51 AM CDT [facility] (CLIA #:[id number]) Comment: NEGATIVE TEST RESULT. A negative Cologuard [...] cancer. ??Following a negative Cologuard result, the [place] [employer] and U.S. Multi-Society Task Force screening guidelines recommend a Cologuard re-screening interval of 3 years. References: [place] [employer] Guideline for Colorectal Cancer Screening: https://www.cancer.org/cancer/nrwui-yzxmnl-afgjri/rsbzcwtyl-iyqfeziyb-breqwgn/ac s-rec ommendations.html.; Jose DK, Ferny LOVE, Jono PulidoK, Colorectal Cancer Screening: Recommendations for Physicians and Patients from the U.S. Multi-Society Task Force on Colorectal Cancer Screening , Am J Gastroenterology 2017; 112:0341-3743. TEST DESCRIPTION: Composite algorithmic analysis of stool [...] (Angelica Anderson al, N Engl J Med 2014;370(14):3785-6752.) Cologuard may produce a false negative or false positive result (no colorectal cancer or precancerous polyp present at colonoscopy follow up). A negative Cologuard test result does not guarantee the absence of CRC or advanced adenoma (pre-cancer). The current Cologuard screening interval is every 3 years. ([place] [employer] and U.S. Multi-Society Task Force). Cologuard performance data in a 10,000 patient pivotal study using colonoscopy as the reference method can be accessed at the following location: www.[employer]/results. Additional description of the Cologuard test process, warnings and precautions can be found at www.cologuard.com. Stool specimen (specimen) 12/16/2023 1:30 PM CDT 12/18/2023 9:58 AM CDT Teresita Garcia MD LABORATORY [facility] [address] [employer] [address] [phone] [facility] (CLIA #:[id number]) [address] [facility] [place] [address] documented in this encounter Visit Diagnoses Diagnosis Encounter for Medicare annual wellness exam- Primary Routine general medical examination at a health care facility Screen for colon cancer Special screening for malignant neoplasms, colon Major depressive disorder, single episode, mild (H24) Major depressive disorder, single episode, mild MS (multiple sclerosis) (H) Multiple sclerosis Recurrent UTI Urinary tract infection, site not specified Non-seasonal allergic rhinitis, unspecified trigger documented in this encounter Additional Health Concerns Assessment Noted Time PHQ-9 Depression Total Score: 2 11/26/19 24 10:47 AM CHANGE MANAGEMENT SPECIALIST documented as of this encounter Care Teams Technology Teacher Relationship Specialty [place] [address] [place] [address] PCP - General Family Practice 01/22/11 Blanca Choi, JAN Personal Advocate & Liaison (PAL) Nurse 09/16/22 01/24/24 Fred Ovalle MD [address] [address] Urology 10/13/22 [place] [address] [place] [address] Assigned PCP 12/13/22 Fred Ovalle MD [address] [place] [address] Assigned Surgical Provider 01/10/23 Chris Mcmahan MD [facility] NEUROLOGICAL [facility] [address] [place] [address] Neurology 02/21/23 Dax Menon MD [facility] [address] [phone] Urology 02/21/23 documented as of this encounter
--- OUTSIDE RECORDS SUMMARY | 2024-02-06 15:05 | XMS_ITS | Encounter Summary ---
Author Name Unknown Organization [place] Address [address] [facility] [place] [address] Care Team Providers Care Kayaking Instructor Name Role Phone Teresita Garcia MD Primary Care Provider Blanca Choi RN Unavailable [phone] Fred Ovalle MD Unavailable Teresita Garcia MD Unavailable Fred Ovalle MD Unavailable Chris Mcmahan MD Unavailable [phone] Dax Menon MD Unavailable Teresita Garcia MD Unavailable Encounter Details Date Type Department Care Team (Late st Contact Info) Description 04/13/2023 Telephone [facility] [place] [id number] [facility] [address] [place] [address] Fred Ovalle MD [address] [place] [address] Social History Tobacco Use Types Packs/Day Years [...] How often do you attend chur or congregational services? Never 04/02/2023 Do you belong to any clubs o r organizations such as temple groups, unions, fraternal [...] 04/02/2023 PHQ-2 Answer Date Recorded PHQ-2 Score 1 10/13/2022 [facility] of Occupat ional Health - [...] place to sleep or slept in a residential (including now)? No 04/02/2023 Sex and Gender Information Value Date Recorded Sex Assigned at Male 06/10/2021 1:42 PM CDT Gender Identity Male 06/10/2021 1:42 PM CDT Sexual Orientation Straight 06/10/2021 1: 42 PM CDT COVID-19 Exposure Response Date Recorded In the last 10 days, have yo u been in contact with someone who was confirmed or suspected to have Coronavirus/COVID-19? No / Unsure 04/09/2023 5:26 AM CDT documented as of this encounter Miscellaneous Notes * Telephone Encounter - Kristopher Angle - 04/13/2023 1:51 PM CDT [facility] Phone Message May a detailed message be left on voicemail: yes Reason for Call: Other: Pt called wondering if Dr. Ovalle wanted to have a f/u appointment after surgery - please call pt to further discuss, thanks! Action Taken: Message routed to[facility] Uro Travel Screening: Not Applicable documented in this encounter Plan of Treatment Not on file documented as of this encounter Visit Diagnoses Not on filedocumented in this encounter Additional Health Concerns Assessment Noted Time PHQ-9 Depression Total Score: 4 10/13/19 11:00 AM PASTRY FINISHER documented as of this encounter Care Teams Kayaking Instructor Relationship Specialty [place] [address] [place], [place] [phone] PCP - General Family Practice 01/22/11 Blanca Choi, JAN Personal Advocate & Liaison (PAL) Nurse 09/16/22 01/24/24 Fred Ovalle MD [address] [address] Urology 10/13/22 [place] [address] [place], [place] [phone] Assigned PCP 12/13/22 Fred Ovalle MD [address] [place] [address] Assigned Surgical Provider 01/10/23 Chris Mcmahan MD [facility] [address] [place] [address] Neurology 02/21/23 Dax Menon MD [facility] [address] [place] [phone] Urology 02/21/23 [place] [address] [place] [address] Assigned Pain Medication Provider 04/11/23 06/19/23 documented as of this encounter
--- OUTSIDE RECORDS SUMMARY | 2024-02-06 15:05 | XMS_ITS | Encounter Summary ---
Author Name Unknown Organization [place] Address [address] [place] [address] Care Team Providers Care Manager Civil Name Role Phone Teresita Garcia MD Primary Care Provider [phone] Blanca Choi RN Unavailable Fred Ovalle MD Unavailable Teresita Garcia MD Unavailable Fred Ovalle MD Unavailable [phone] Chris Mcmahan MD Unavailable Dax Menon MD Unavailable Encounter Details Date Type Department Care Team (Late st Contact Info) Description 08/04/2023 Telephone [facility] [place] [address] [facility] [address] [place] [address] Fred Ovalle MD [address] [place] [address] Social History Tobacco Use Types [...] How often do you attend chur or latter-day services? Never 04/02/2023 Do you belong to any clubs o r organizations such as taoist groups, unions, fraternal [...] Answer Date Recorded PHQ-2 Score 0 05/08/2023 [facility] [place] of Occupat ional Health - Occupational Stress [...] place to sleep or slept in a fpc (including now)? No 04/02/2023 Adolescent Education Answer Date Record ed Getting School Help Needed Not on file 06/19 Sex and Gender Information Value Date Recorded Sex Assigned at Male 06/10/2021 1:42 PM CDT Gender Identity Male 06/10/2021 1:42 PM CDT Sexual Orientation Straight 06/10/2021 1: 42 PM CDT documented as of this encounter Miscellaneous Notes * Telephone Encounter - Margaret Suarez Ashok - 08/04/2023 11:28 AM CST [facility] Phone Message May a detailed message be left on voicemail: yes Reason for Call: Other: assisted living calling and they need orders faxed over Aciprofloxacin (CIPRO) 500 MG tablet [[id number]] (Order [id number] Fax number is [phone] ction Taken: Other: urology Travel Screening: Not Applicable UATION ANALYST documented in this encounter Plan of Treatment Not on file documented as of this encounter Visit Diagnoses Not on filedocumented in this encounter Additional Health Concerns Assessment Noted Time PHQ-9 Depression Total Score: 2 05/08/20 11:12 AM CDT documented as of this encounter Care Teams Manager Civil Relationship Specialty [place] [address] [place] [address] PCP - General Family Practice 01/22/11 Blanca Choi, JAN Personal Advocate & Liaison (PAL) Nurse 09/16/22 01/24/24 Fred Ovalle MD [address] [place] [address] Urology 10/13/22 [place] [address] [place] [address] Assigned PCP 12/13/22 Fred Ovalle MD [address] [place] [address] Assigned Surgical Provider 01/10/23 Chris Mcmahan MD [facility] [address] [place] [address] Neurology 02/21/23 Dax Menon MD [facility] [address] [phone] Urology 02/21/23 documented as of this encounter
--- OUTSIDE RECORDS SUMMARY | 2024-02-06 15:05 | XMS_ITS | Encounter Summary ---
Author Name Unknown Organization [place] Address [address] [facility] [place] [address] Care Team Providers Care Neurourologist Name Role Phone Teresita Garcia MD Primary Care Provider [phone] Blanca Choi RN Unavailable [phone] Fred Ovalle MD Unavailable [phone] Teresita Garcia MD Unavailable Fred Ovalle MD Unavailable Chris Mcmahan MD Unavailable Dax Menon MD Unavailable Teresita Garcia MD Unavailable Encounter Details Date Type Department Care Team (Late st Contact Info) Description 03/18/2023 [facility] [place] [address] [place] [address] Cindy Goel Social History Tobacco Use Types Packs/Day Years [...] neighbors? More than three times a week 07/05/2020 Frequency of Social Gatherin gs with Friends and Family Not on file 07/05/2020 Attends Alevism Services Not on file 07/05 Active Member of Clubs or Organizations Not on f ile 07/05/2020 Attends Club or Organization Meetings Not on marika e 07/05/2020 Marital Status Not on file 07/05/2020 AUDIT-C Answer Date Recorded Frequency of Alcohol Consumption Never 11/25/2018 Average Number of Drinks Not on file 019 Frequency of Binge Drinking Not on file 10/30 Overall Financial Resource Strain (CARDIA) Answe r Date Recorded How hard is it for you to pa y for the very basics like food, housing, medical care, and heating? Not very hard 07/05/2020 PHQ-2 Answer Date Recorded PHQ-2 Score 1 10/13/2022 [facility] of Occupat ional Health - Occupational Stress Questionnaire Answer Date Recorded Do you feel stress - tense, restless, nervous, or anxious, or unable to sleep at night because your mind is troubled all the time - these days? To some extent 07/05/2020 Exercise Vital Sign Answer Date Recorde d On average, how many days pe r week do you engage in moderate to strenuous exercise (like a brisk walk)? 0 days 07/05/2020 On average, how many minutes do you engage in exercise at this level? 0 min 07/05/2020 Hunger Vital Sign Answer Date Recorded Within the past 12 months, y ou worried that your food would run out before you got the money to buy more. Never true 07/05/20 20 Within the past 12 months, t he food you bought just didn't last and you didn't have money to get more. Never true 07/05/2020 PRAPARE - Transportation Answer Date Re corded In the past 12 months, has l ack of transportation kept you from medical appointments or from getting medications? No 04/2020 In the past 12 months, has l ack of transportation kept you from meetings, work, or from getting things needed for daily living? No 07/05/2020 Sex and Gender Information Value Date Recorded Sex Assigned at Male 06/10/2021 1:42 PM CDT Gender Identity Male 06/10/2021 1:42 PM CDT Sexual Orientation Straight 06/10/2021 1: 42 PM CDT COVID-19 Exposure Response Date Recorded In the last 10 days, have yo u been in contact with someone who was confirmed or suspected to have Coronavirus/COVID-19? No / Unsure 02/21/2023 3:40 PM CDT documented as of this encounter Plan of Treatment Not on file documented as of this encounter Visit Diagnoses Not on filedocumented in this encounter Additional Health Concerns Assessment Noted Time PHQ-9 Depression Total Score: 4 10/13/19 23 11:00 AM EMBRYOLOGY PROFESSOR documented as of this encounter Care Teams Neurourologist Relationship Specialty [place] [address] [place], [place] [phone] PCP - General Family Practice 01/22/11 Blanca Choi RN Personal Advocate & Liaison (PAL) Nurse 09/16/22 01/24/24 Fred Ovalle MD [address] [address] Urology 10/13/22 [place] [address] [place] [address] Assigned PCP 12/13/22 Fred Ovalle MD [address] [place] [address] Assigned Surgical Provider 01/10/23 Chris Mcmahan MD [facility] NEUROLOGICAL [facility] [address] [place] [address] Neurology 02/21/23 Dax Menon MD [facility] [address] [place] [phone] Urology 02/21/23 [place] [address] [place] [address] Assigned Pain Medication Provider 04/11/23 06/19/23 documented as of this encounter
--- OUTSIDE RECORDS SUMMARY | 2024-02-06 15:05 | XMS_ITS | Encounter Summary ---
Author Name Unknown Organization [place] Address [address] [facility] [place] [address] Care Team Providers Care Vp Clinical Name Role Phone Teresita Garcia MD Primary Care Provider Audrey Hickman MD Unavailable + Blanca Choi RN Unavailable Fred Ovalle MD Unavailable Dolores Caputo REPRESENTATIVE PERSONAL SERVICE Unavailable Dolores Caputo REPRESENTATIVE PERSONAL SERVICE Unavailable Teresita Garcia MD Unavailable Fred Ovalle MD Unavailable Chris Mcmahan MD Unavailable Dax Menon MD Unavailable Teresita Garcia MD Unavailable Reason for Visit * Reason Comments Medication Refill Encounter Details Date Type Department Care Team (Late st Contact Info) Description 11/05/[address] [address] Audrey Hickman MD PRIMARY ENT [address] [facility] [address] [place] [address] Medication Refill Social History Tobacco Use Types Packs/Day Years [...] and Family Not on file 07/05/2020 Attends Nondenominational Services Not on file 07/05 Active Member [...] Answer Date Recorded PHQ-2 Score 1 10/13/2022 [facility] [place] of Occupat ional Health - Occupational Stress [...] suspected to have Coronavirus/COVID-19? No / Unsure 10/13/2022 11:28 AM SENIOR PRODUCER documented as of this encounter Miscellaneous Notes * Telephone Encounter - Lilian Barber RN - 11/06/2022 10:14 AM CST Routing refill request to provider for review/approval because: Labs not current: Cr Due for Dexa. Creatinine Date Value Ref Range Status 11/25/2019 0.95 0.72 - 1.25 mg/dL Final Lilian Barber RN, BSN [facility] OR PRODUCER documented in this encounter Plan of Treatment Not on file documented as of this encounter Visit Diagnoses Diagnosis Osteoporosis, unspecified osteoporosis type, unspecified pathological fracture presence documented in this encounter Additional Health Concerns Infection Onset Date Last Indicated Resolved Time Rule Out COVID-19 11/30/2022 11/30/2022 11/30/2022 10:41 PM SENIOR PRODUCER Rule Out COVID-19 02/21/2023 02/21/2023 02/21/2023 5:16 PM CDT Assessment Noted Time PHQ-9 Depression Total Score: 4 10/13/19 11:00 AM SENIOR PRODUCER documented as of this encounter Care Teams Vp Clinical Relationship Specialty [place] [address] [place] [address] PCP - General Family Practice 01/22/11 Audrey Hickman MD PRIMARY ENT [address] [facility] 13 [facility] 350 [place] [address] Assigned PCP 12/29/21 12/12/22 Blanca Choi RN Personal Advocate & Liaison (PAL) Nurse 09/16/22 01/24/24 Fred Ovalle MD [address] [facility] [address] [place] [address] Urology 10/13/22 Dolores Caputo, REPRESENTATIVE PERSONAL SERVICE Clinic Ticker Maintainer Primary Care - CC 12/04/22 Dolores Caputo, [facility] Clinic Ticker Maintainer Primary Care - CC 12/05/22 [place] [address] [place] [address] Assigned PCP 12/13/22 Fred Ovalle MD [address] [place] [address] Assigned Surgical Provider 01/10/23 Chris Mcmahan MD [facility] NEUROLOGICAL [facility] [address] [place] [address] Neurology 02/21/23 Dax Menon MD [facility] [address] [place] [phone] Urology 02/21/23 [place] [address] [place] [address] Assigned Pain Medication Provider 04/11/23 06/19/23 documented as of this encounter
--- OUTSIDE RECORDS SUMMARY | 2024-02-06 15:05 | XMS_ITS | Encounter Summary ---
Author Name Unknown Organization [place] Address [address] [facility] [place] [address] Care Team Providers Care Pharmacy Manager Name Role Phone Teresita Garcia MD Primary Care Provider [phone] Blanca Choi RN Unavailable Fred Ovalle MD Unavailable [phone] Teresita Garcia MD Unavailable Fred Ovalle MD Unavailable [phone] Chris Mcmahan MD Unavailable Dax Menon MD Unavailable Encounter Details Date Type Department Care Team (Latest Contact Info) Description 11/25/2023 Travel Social History Tobacco Use Types Packs/Day [...] often do you attend chur ch or episcopalian services? Never 11/26/2023 Do you belong to any clubs o r organizations such as worship groups, unions, fraternal [...] Answer Date Recorded PHQ-2 Score 0 11/26/2023 [facility] of Occupat ional Health - Occupational [...] Total Score: 4 11/17/19 24 3:48 PM CUSTOMS BROKERAGE AGENT documented as of this encounter Care Teams Pharmacy Manager Relationship Specialty [place] [address] [place], [place] [phone] PCP - General Family Practice 01/22/11 Blanca Choi RN Personal Advocate & Liaison (PAL) Nurse 09/16/22 01/24/24 Fred Ovalle MD [address] [place] [address] Urology 10/13/22 [place] [address] [place], [place] [phone] Assigned PCP 12/13/22 Fred Ovalle MD [address] [place] [address] Assigned Surgical Provider 01/10/23 Chris Mcmahan MD [facility] NEUROLOGICAL [facility] [address] [place], [place] [phone] Neurology 02/21/23 Dax Menon MD [facility] [address] [place] [phone] Urology 02/21/23 documented as of this encounter
--- OUTSIDE RECORDS SUMMARY | 2024-02-06 15:05 | XMS_ITS | Encounter Summary ---
Author Name Unknown Organization [place] Address [address] [place] [address] Care Team Providers Care Director Of Sustainability Name Role Phone Teresita Garcia MD Primary Care Provider [phone] Blanca Choi RN Unavailable [phone] Fred Ovalle MD Unavailable Teresita Garcia MD Unavailable Fred Ovalle MD Unavailable Chris Mcmahan MD Unavailable [phone] Dax Menon MD Unavailable Teresita Garcia MD Unavailable Reason for Visit * Reason Onset Date Comments Medication Question 02/25/2023 CIPROFLOXACI N AND AMOXICILLIN Encounter Details Date Type Department Care Team (Late st Contact Info) Description 02/25/[address] [facility] [address] [place] [address] Johana Corado Medication Question (CIPROFLOXACIN AND AMOXICILLIN) Social History Tobacco Use Types Packs/Day Years [...] and Family Not on file 07/05/2020 Attends Gnosticism Services Not on file 07/05 Active Member [...] Answer Date Recorded PHQ-2 Score 1 10/13/2022 [facility] - Occupational Stress Questionnaire Answer Date [...] encounter Miscellaneous Notes * Telephone Encounter - Johana Corado - 02/25/2023 10:20 AM CDT Good Morning, [place] Manager [facility] received two electronic prescriptions for Dejuan for Amoxil and Cipro this morning. This pharmacy only services the public if they live at one of our assisted livingand alf facilities that we have contracts with, and those who are on [facility] hospice program. I have a feeling that these two electronic prescriptions were sent to the incorrect pharmacy. We will not be filling these medications and they are non transferable. Please resend these prescriptions to the correct pharmacy. Please reach out if you have any questions or concerns. Thank you. Johana Corado, [place] [facility] Manager [facility] [address] [place] [email or web address] Pharmacy: [phone] documented in this encounter Plan of Treatment Not on file documented as of this encounter Visit Diagnoses Not on filedocumented in this encounter Additional Health Concerns Assessment Noted Time PHQ-9 Depression Total Score: 4 10/13/19 23 11:00 AM TRAINING INSTRUCTOR documented as of this encounter Care Teams Director Of Sustainability Relationship Specialty [place] [address] [place], [place] [phone] PCP - General Family Practice 01/22/11 Blanca Choi, JAN Personal Advocate & Liaison (PAL) Nurse 09/16/22 01/24/24 Fred Ovalle MD [address] [address] Urology 10/13/22 [place] [address] [place], [place] [phone] Assigned PCP 12/13/22 Fred Ovalle MD [address] [place] [address] Assigned Surgical Provider 01/10/23 Chris Mcmahan MD [facility] [address] [place] [address] Neurology 02/21/23 Dax Menon MD [facility] [address] [phone] Urology 02/21/23 [place] [address] [place], [place] [phone] Assigned Pain Medication Provider 04/11/23 06/19/23 documented as of this encounter
--- OUTSIDE RECORDS SUMMARY | 2024-02-06 15:05 | XMS_ITS | Encounter Summary ---
Author Name Unknown Organization [place] Address [address] [facility] [place] [address] Care Team Providers Care Skirt Panel Assembler Name Role Phone Teresita Garcia MD Primary Care Provider [phone] Fred Ovalle MD Unavailable [phone] Teresita Garcia MD Unavailable Fred Ovalle MD Unavailable Chris Mcmahan MD Unavailable Dax Menon MD Unavailable Reason for Visit * Reason Onset Date Comments Derm Problem 02/05/2024 Encounter Details Date Type Department Care Team (Late st Contact Info) Description 02/05/2024 [facility] Medical Advice [address] [address] Teresita Garcia [place] [id number] [place] [address] Derm Problem Social History Tobacco Use [...] How often do you attend chur or roman catholic services? Never 11/26/2023 Do you belong to any clubs o r organizations such as mosque groups, unions, fraternal [...] Answer Date Recorded PHQ-2 Score 0 11/26/2023 [facility] of Occupat ional Health - Occupational [...] encounter Miscellaneous Notes * Telephone Encounter - Cindy Aggarwal RN - 02/05/2024 4:46 PM CDT Attempt x 2 to reach pt. Left vm to call back to MEG RN at to received message from Dr. Garcia. Notified pt that a [employer] message would also be sent to him relaying the message. Sent pt a [employer]Eye message with Dr. Garcia's message to be seen in . When pt calls back, Relay message from Dr. Garcia below. JAN Bowers (Patient Advocate Liaison) [facility] * Telephone Encounter - Mary More RN - 02/05/2024 2:53 PM CDT Form faxed back advising visit. Mary More RN * Telephone Encounter - Cindy Aggarwal RN - 02/05/2024 2:18 PM CDT Called pt and left a message to call back to and to ask to speak to a triage nurse to relay message from Teresita Garcia MD below. When pt calls back, Relay message from Dr. Garcia below to be seen in . Cindy Cox RN PAL (Patient Advocate Liaison) [facility] * Telephone Encounter - Teresita Garcia MD - 02/05/2024 2:15 PM CDT Oh I hate to do this, but I think urgent care maybe needed, as I wonder if he has cellulitis of theface, it looks red and swollen on the picture. Teresita Garcia MD [facility]. [phone] * Telephone Encounter - Mary More RN - 02/05/2024 1:[address] Garcia- see picture below. Mary More RN documented in this encounter Plan of Treatment Not on file documented as of this encounter Visit Diagnoses Not on filedocumented in this encounter Additional Health Concerns Assessment Noted Time PHQ-9 Depression Total Score: 2 11/26/19 24 10:47 AM ASSISTANT PROFESSOR OF MUSIC documented as of this encounter Care Teams Skirt Panel Assembler Relationship Specialty [place] [address] [place], [place] [phone] PCP - General Family Practice 01/22/11 Fred Ovalle MD [address] [address] Urology 10/13/22 [place] [address] [place], [place] [phone] Assigned PCP 12/13/22 Fred Ovalle MD [address] [place] [address] Assigned Surgical Provider 01/10/23 Chris Mcmahan MD [facility] [address] [place], [place] [phone] Neurology 02/21/23 Dax Menon MD [facility] [address] [place] [phone] Urology 02/21/23 documented as of this encounter
--- OUTSIDE RECORDS SUMMARY | 2024-02-06 15:05 | XMS_ITS | Encounter Summary ---
Author Name Unknown Organization [place] Address [address] [facility] [place] [address] Care Team Providers Care Internship Coordinator Name Role Phone Teresita Garcia MD Primary Care Provider Blanca Choi RN Unavailable Fred Ovalle MD Unavailable [phone] Teresita Garcia MD Unavailable Fred Ovalle MD Unavailable [phone] Chris Mcmahan MD Unavailable Dax Menon MD Unavailable Encounter Details Date Type Department Care Team (Latest Contact Info) Description 11/26/2023 Travel Social History Tobacco Use Types Packs/Day [...] often do you attend chur ch or yarsanism services? Never 11/26/2023 Do you belong to any clubs o r organizations such as religious groups, unions, fraternal [...] Answer Date Recorded PHQ-2 Score 0 11/26/2023 [facility] Occupat ional Health - Occupational [...] Total Score: 2 11/26/19 24 10:47 AM COMMUNICATION AND OUTREACH MANAGER documented as of this encounter Care Teams Internship Coordinator Relationship Specialty [place] [address] [place], [place] [phone] PCP - General Family Practice 01/22/11 Blanca Choi RN Personal Advocate & Liaison (PAL) Nurse 09/16/22 01/24/24 Fred Ovalle MD [address] [place] [address] Urology 10/13/22 [place] [address] [place], [place] [phone] Assigned PCP 12/13/22 Fred Ovalle MD [address] [place] [address] Assigned Surgical Provider 01/10/23 Chris Mcmahan MD [facility]UR[facility] [address] [place], [place] [phone] Neurology 02/21/23 Dax Menon MD [facility] [address] [place] [phone] Urology 02/21/23 documented as of this encounter
--- OUTSIDE RECORDS SUMMARY | 2024-02-06 15:05 | XMS_ITS | Encounter Summary ---
Author Name Unknown Organization [place] Address [address] [place] [address] Care Team Providers Care Sander Machine Name Role Phone Teresita Garcia MD Primary Care Provider Blanca Choi RN Unavailable [phone] Fred Ovalle MD Unavailable Teresita Garcia MD Unavailable Fred Ovalle MD Unavailable [phone] Chris Mcmahan MD Unavailable [phone] Dax Menon MD Unavailable Encounter Details Date Type Department Care Team (Late st Contact Info) Description 11/26/2023 Orders Only (auto-released) [facility] [address] [place] [address] [place] [address] [place] [address] Screen for colon cancer Social History Tobacco Use Types Packs/Day Years [...] How often do you attend chur or baptism services? Never 11/26/2023 Do you belong to any clubs o r organizations such as nondenominational groups, unions, fraternal [...] Answer Date Recorded PHQ-2 Score 0 11/26/2023 [facility] Occupat ional Health - Occupational [...] on file documented as of this encounter Procedures Procedure Name Priority Date/Time Associated Diagnosis Comments COLOGreK[employer] Education([employer]) Routine 12/16/2023 1:30 PM CDT Screen for colon cancer documented in this encounter Results * COLOGUARD([employer]) (12/16/2023 1:30 PM CDT) SHANKAR-ABSTRACT Negative Negative 2023 4:51 AM CDT [facility] (CLIA #:[id number]) Comment: NEGATIVE TEST RESULT. A negative Cologuard [...] cancer. ??Following a negative Cologuard result, the [place] Cancer Society and U.S. Multi-Society Task Force screening guidelines recommend a Cologuard re-screening interval of 3 years. References: [place] Cancer Society Guideline for Colorectal Cancer Screening: https://www.cancer.org/cancer/rohno-wfspri-htvuuz/qvkotcvxl-khmxghaku-utixykt/ac s-rec ommendations.html.; Jose DK, Ferny LOVE, oJno HIGH, Colorectal Cancer Screening: Recommendations for Physicians and Patients from the U.S. Multi-Society Task Force on Colorectal Cancer Screening , Am J Gastroenterology 2017; 112:9364-9929. TEST DESCRIPTION: Composite algorithmic analysis of stool [...] screened with both Cologuard and colonoscopy. (Angelica Borges, N Engl J Med 2014;370(14):1614-4520.) Cologuard may produce a false negative or false positive result (no colorectal cancer or precancerous polyp present at colonoscopy follow up). A negative Cologuard test result does not guarantee the absence of CRC or advanced adenoma (pre-cancer). The current Cologuard screening interval is every 3 years. ([place] Cancer Society and U.S. Multi-Society Task Force). Cologuard performance data in a 10,000 patient pivotal study using colonoscopy as the reference method can be accessed at the following location: www.TrustCloud/results. Additional description of the Cologuard test process, warnings and precautions can be found at www.cologuard.com. Stool specimen (specimen) 12/16/2023 1:30 PM CDT 12/18/2023 9:58 AM CDT Teresita Garcia MD [facility] [address] [phone] [facility] (CLIA #:[id number]) [address] [place] [address] documented in this encounter Visit Diagnoses Diagnosis Screen for colon cancer Special screening for malignant neoplasms, colon documented in this encounter Additional Health Concerns Assessment Noted Time PHQ-9 Depression Total Score: 2 11/26/19 24 10:47 AM NEGOTIATOR SALES documented as of this encounter Care Teams Sander Machine Relationship Specialty [place] [address] [place] [address] PCP - General Family Practice 01/22/11 Blanca Choi, JAN Personal Advocate & Liaison (PAL) Nurse 09/16/22 01/24/24 Fred Ovalle MD [address] [address] Urology 10/13/22 [place] [address] [place] [address] Assigned PCP 12/13/22 Fred Ovalle MD [address] [place] [address] Assigned Surgical Provider 01/10/23 Chris Mcmahan MD [facility] NEUROLOGICAL [facility] [address] [place], [place] [phone] Neurology 02/21/23 Dax Menon MD [facility] [address] [phone] Urology 02/21/23 documented as of this encounter
--- OUTSIDE RECORDS SUMMARY | 2024-02-06 15:05 | XMS_ITS | Encounter Summary ---
Author Name Unknown Organization [place] Address [address] [facility] [place] [address] Care Team Providers Care Group Dynamics Instructor Name Role Phone Teresita Garcia MD Primary Care Provider Blanca Choi RN Unavailable [phone] Fred Ovalle MD Unavailable [phone] Teresita Garcia MD Unavailable Fred Ovalle MD Unavailable [phone] Chris Mcmahan MD Unavailable Dax Menon MD Unavailable Encounter Details Date Type Department Care Team (Latest Contact Info) Description 11/18/2023 Travel Social History Tobacco Use Types Packs/Day [...] often do you attend chur ch or jew services? Never 04/02/2023 Do you belong to any clubs o r organizations such as religion groups, unions, fraternal [...] Answer Date Recorded PHQ-2 Score 2 11/18/2023 [facility] of Occupat ional Health - Occupational Stress [...] Total Score: 4 11/17/19 24 3:48 PM PRODUCT APPLICATIONS ENGINEER documented as of this encounter Care Teams Group Dynamics Instructor Relationship Specialty [place] [address] [place] [address] PCP - General Family Practice 01/22/11 Blanca Choi RN Personal Advocate & Liaison (PAL) Nurse 09/16/22 01/24/24 Fred Ovalle MD [address] [place] [address] Urology 10/13/22 [place] [address] [place] [address] Assigned PCP 12/13/22 Fred Ovalle MD [address] [place] [address] Assigned Surgical Provider 01/10/23 Chris Mcmahan MD [facility] NEUROLOGICAL [facility] [address] [place] [address] Neurology 02/21/23 Dax Menon MD [facility] [address] [place] [phone] Urology 02/21/23 documented as of this encounter
--- OUTSIDE RECORDS SUMMARY | 2024-02-06 15:06 | XMS_ITS | Encounter Summary ---
Author Name Unknown Organization [place] Address [address] [facility] [place] [address] Care Team Providers Care Bit Gatherer Name Role Phone Jonathan Velásquez MD Primary Care Provider Teresita Garcia MD Primary Care Provider Teresita Garcia MD Unavailable Teresita Garcia MD Unavailable Dolores Caputo STEAM TURBINE ASSEMBLER Unavailable Letha Vasquez CHW Unavailable Audrey Hickman MD Unavailable + Blanca Choi RN Unavailable Fred Ovalle MD Unavailable Letha Vasquez CHW Unavailable Dolores Caputo STEAM TURBINE ASSEMBLER Unavailable Dolores Caputo STEAM TURBINE ASSEMBLER Unavailable Teresita Garcia MD Unavailable Fred Ovalle MD Unavailable Chris Mcmahan MD Unavailable Dax Menon MD Unavailable Teresita Garcia MD Unavailable Encounter Details Date Type Department Care Team (Late st Contact Info) Description 02/27/2007 [facility] [address] [facility] [place] [phone] Jonathan Velásquez MD XXX RETIRED XXX 0 [facility] NABIL CROSS [phone] [facility] Social History Tobacco Use Types Packs/Day Years Used Date Smoking Tobacco: Never Smokeless Tobacco: Never Alcohol Use Standard Drinks/Week Comments Not Currently 0 (1 standard drink = 0.6 oz pur e alcohol) socially Sex and Gender Information Value Date Recorded Sex Assigned at Male 06/10/2021 1:42 PM CDT Gender Identity Male 06/10/2021 1:42 PM CDT Sexual Orientation Straight 06/10/2021 1: 42 PM CDT documented as of this encounter Plan of Treatment Not on file documented as of this encounter Visit Diagnoses Diagnosis EMERGENCY DEPT- Primary documented in this encounter Additional Health Concerns Infection Onset Date Last Indicated Resolved Time Rule Out C-difficile 09/01/2022 09/01/2022 022 11:40 PM CILNICAL SCIENTIST Rule Out COVID-19 11/30/2022 11/30/2022 11/30/2022 10:41 PM CILNICAL SCIENTIST Rule Out COVID-19 02/21/2023 02/21/2023 02/21/2023 5:16 PM CDT documented as of this encounter Care Teams Bit Gatherer Relationship Specialty Start Date End Date Jonathan Velásquez MD PCP - General 11/10/05 01/21/11 [place] [address] [place] [address] PCP - General Family Practice 01/22/11 [place] [address] [place] [address] PCP - Assigned PCP 11/16/16 11/30/18 [place] [address] [place] [address] Assigned PCP 11/16/16 12/28/21 Dolores Caputo [facility] Lead Portrait Artist Primary Care - CC 06/27/2009/03 Letha Vasquez, W Community Health Worker 07/05/2009/03 Audrey Hickman MD PRIMARY ENT [id number] [place] [address] 13 [facility] [address] [place], [place] [address] Assigned PCP 12/29/21 12/12/22 Blanca Choi, RN Personal Advocate & Liaison (PAL) Nurse 09/16/22 01/24/24 Fred Ovalle MD [address] [facility] [address] [place] [address] Urology 10/13/22 Letha Vasquez [facility] Community Health Worker Primary Care - CC 10/21/22 Dolores Caputo [facility] Portrait Artist Primary Care - CC 12/04/22 Dolores Caputo [facility] Portrait Artist Primary Care - CC 12/05/22 [place] [address] [place] [address] Assigned PCP 12/13/22 Fred Ovalle MD [address] [place] [address] Assigned Surgical Provider 01/10/23 Chris Mcmahan MD [facility] NEUROLOGICAL [facility] [address] [place] [address] Neurology 02/21/23 Dax Menon MD [facility] [address] [place] [phone] Urology 02/21/23 [place] [address] [place] [address] Assigned Pain Medication Provider 04/11/23 06/19/23 documented as of this encounter
--- OUTSIDE RECORDS SUMMARY | 2024-02-06 15:06 | XMS_ITS | Encounter Summary ---
Author Name Unknown Organization [place] Address [address] [facility] [place] [address] Care Team Providers Care Underwater Photographer Name Role Phone Teresita Garcia MD Primary Care Provider Teresita Garcia MD Unavailable Teresita Garcia MD Unavailable Dolores Caputo COMMUTER TRAIN OPERATOR Unavailable Letha Vasquez CHW Unavailable Audrey Hickman MD Unavailable + Blanca Choi RN Unavailable Fred Ovalle MD Unavailable Letha Vasquez CHW Unavailable Dolores Caputo COMMUTER TRAIN OPERATOR Unavailable Dolores Caputo COMMUTER TRAIN OPERATOR Unavailable Teresita Garcia MD Unavailable Fred Ovalle MD Unavailable Chris Mcmahan MD Unavailable Dax Menon MD Unavailable Teresita Garcia MD Unavailable Encounter Details Date Type Department Care Team (Late st Contact Info) Description 04/15/2011 [facility] [id number] [place] [phone] Niki Kramerview Social History Tobacco Use Types Packs/Day Years Used Date Smoking Tobacco: Never Smokeless Tobacco: Never Alcohol Use Standard Drinks/Week Comments No 0 (1 standard drink = 0.6 oz pur e alcohol) Sex and Gender Information Value Date Recorded [...] Out C-difficile 09/01/2022 09/01/2022 022 11:40 PM EMPLOYEE RELATIONS MANAGER Rule Out COVID-19 11/30/2022 11/30/2022 11/30/2022 10:41 PM EMPLOYEE RELATIONS MANAGER Rule Out COVID-19 02/21/2023 02/21/2023 02/21/2023 5:16 PM CDT documented as of this encounter Care Teams Underwater Photographer Relationship Specialty [place] [address] [place] [address] PCP - General Family Practice 01/22/11 [place] [address] [place] [address] PCP - Assigned PCP 11/16/16 11/30/18 [place] [address] [place] [address] Assigned PCP 11/16/16 12/28/21 Dolores Caputo, COMMUTER TRAIN OPERATOR Lead Warehouse Hand Primary Care - CC 06/27/2009/03 Letha Vasquez, [facility] Community Health Worker 07/05/2009/03 Audrey Hickman MD PRIMARY ENT [address] [facility] [address] [place] [address] Assigned PCP 12/29/21 12/12/22 Blanca Choi, JAN Personal Advocate & Liaison (PAL) Nurse 09/16/22 01/24/24 Fred Ovalle MD [address] [facility] [address] [place] [address] Urology 10/13/22 Letha Vasquez, [facility] Community Health Worker Primary Care - CC 10/21/22 Dolores Caputo, [facility] Clinic Warehouse Hand Primary Care - CC 12/04/22 Dolores Caputo [facility] Clinic Warehouse Hand Primary Care - CC 12/05/22 [place] [address] [place], [place] [phone] Assigned PCP 12/13/22 Fred Ovalle MD [address] [place] [address] Assigned Surgical Provider 01/10/23 Chris Mcmahan MD [facility] [address] [place], [place] [phone] Neurology 02/21/23 Dax Menon MD [facility] [address] [place] [phone] Urology 02/21/23 [place] [address] [place], [place] [phone] Assigned Pain Medication Provider 04/11/23 06/19/23 documented as of this encounter
--- OUTSIDE RECORDS SUMMARY | 2024-02-06 15:06 | XMS_ITS | Encounter Summary ---
Author Name Unknown Organization [place] Address [address] [facility] [place] [address] Care Team Providers Care Telegraphic Service Dispatcher Name Role Phone Teresita Garcia MD Primary Care Provider Teresita Garcia MD Unavailable Audrey Hickman MD Unavailable + Blanca Choi RN Unavailable Fred Ovalle MD Unavailable Letha Vasquez CHW Unavailable Dolores Caputo APPAREL SALES ASSOCIATE Unavailable Dolores Caputo APPAREL SALES ASSOCIATE Unavailable Teresita Garcia MD Unavailable Fred Ovalle MD Unavailable Chris Mcmahan MD Unavailable Dax Menon MD Unavailable Teresita Garcia MD Unavailable Reason for Visit * Reason Onset Date Comments Call Back 10/01/2021 patient is deali ng with Adema in his feet and ankles, had asked about compression socks if they would be ok for him. Encounter Details Date Type Department Care Team (Late st Contact Info) Description 10/01/2021 Telephone [facility] [address] [place] [address] [place] [address] [place] [address] Call Back (patient is dealing with Adema in his feet and ankles, had asked [...] and Family Not on file 07/05/2020 Attends Scientology Services Not on file 07/05 Active Member [...] 07/05/2020 PHQ-2 Answer Date Recorded PHQ-2 Score 2 06/14/2021 [facility] of Occupat ional Health - Occupational Stress [...] encounter Miscellaneous Notes * Telephone Encounter - Yumiko Camp CMA - 10/04/2021 11:02 AM ESTIMATOR PRINTING PLATE MAKING Left detailed message on [employer]) machine that DME for compression stockings has been approved and signed. Need to ask what should be done with the DME? Picked up, mailed, faxed? Form is in basket at [facility]. Yumiko Camp CMA MATOR PRINTING PLATE MAKING * Telephone Encounter - Teresita Garcia MD [...] sign it by another provider p cr. MATOR PRINTING PLATE MAKING * Telephone Encounter - Karen Covarrubias RN - 10/02/2021 4:49 PM CST Called Sivakumar, home care nurse, informs: ~not new issue ~now that in chair more lower leg edema worsening ~[place] [facility] ~not regular nurse, covering for vacation ~only needs knee high ~think facility would assist if virtual visit needed ~would be hard for F2F ~pt saw NWD in May ~pt would like velcro compression stockings but aware they would not be covered, staff would have to assist in donning on and off Would like to confirm if needs virtual visit, can get measurements if AA needs, will figure out what to do with order if AA orders now Routed again to AA, please confirm, route to inform Sivakumar Covarrubias RN, BSN [facility] MATOR PRINTING PLATE MAKING * Telephone Encounter - Teresita Garcia MD - 10/02/2021 4:28 PM CST Yes, they can be great option. But is this new? Can we do a virtual visit or in person (if possible) as I know he has limited mobility and transportation. I pended the order in, I wonder if we can print it at the clinic and have someone sign it for patient. Teresita Garcia MD [facility] [phone] MATOR PRINTING PLATE MAKING * Telephone Encounter - Karen Covarrubias RN - 10/02/2021 4:23 PM CST Routed to AA, see home care note and advise compression socks, please advise, route to inform Sivakumar home stereo equipment installer of plan patient is dealing with edema in his feet and ankles, had asked about compression socks if they would be ok for him. Karen Covarrubias RN, BSN [facility] MATOR PRINTING PLATE MAKING * Telephone Encounter - Hiren Johnson - 10/01/2021 6:06 PM CST Reason for call: Other Patient called regarding (reason for call): call back Additional comments: in regards to compression socks Phone number to reach patient: Other phone number: Sivakumar MONTOYA from [facility] [phone] Best Time: During business hours Can we leave a detailed message on this number? 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 documented in this encounter Additional Health Concerns Infection Onset Date Last Indicated Resolved Time Rule Out C-difficile 09/01/2022 09/01/2022 022 11:40 PM ESTIMATOR PRINTING PLATE MAKING Rule Out COVID-19 11/30/2022 11/30/2022 11/30/2022 10:41 PM ESTIMATOR PRINTING PLATE MAKING Rule Out COVID-19 02/21/2023 02/21/2023 02/21/2023 5:16 PM CDT Assessment Noted Time PHQ-9 Depression Total Score: 6 04/12/20 21 1:59 PM CDT documented as of this encounter Care Teams Telegraphic Service Dispatcher Relationship Specialty [place] [address] [place] [address] PCP - General Family Practice 01/22/11 [place] [address] [place] [address] Assigned PCP 11/16/16 12/28/21 Audrey Hickman MD PRIMARY ENT [address] [facility] 13 [facility] 350 [place], [place] [address] Assigned PCP 12/29/21 12/12/22 Blanca Choi, JAN Personal Advocate & Liaison (PAL) Nurse 09/16/22 01/24/24 Fred Ovalle MD [address] [facility] [address] [place], [place] [address] Urology 10/13/22 Letha Vasquez, [facility] Community Health Worker Primary Care - CC 10/21/22 Dolores Caputo, [facility] [address] Clinic Molder Closed Molds Primary Care - CC 12/04/22 Dolores Caputo, [facility] [address] [facility] Molder Closed Molds Primary Care - CC 12/05/22 [place] [address] [place] [address] Assigned PCP 12/13/22 Fred Ovalle MD [address] [place] [address] [id number] Assigned Surgical Provider 01/10/23 Chris Mcmahan MD [facility]UR[facility]ICAL [facility]INIC [address] [place], [place] [phone] Neurology 02/21/23 Dax Menon MD [facility] [address] [place] [phone] Urology 02/21/23 [place] [address] [place], [place] [phone] Assigned Pain Medication Provider 04/11/23 06/19/23 documented as of this encounter
--- OUTSIDE RECORDS SUMMARY | 2024-02-06 15:06 | XMS_ITS | Continuity of Care Document ---
Author Name Unknown Organization [facility] Address [address] [address] [place] [address] Phone Care Team Providers Care Pump And Still Operator Name Role Phone Jacob Simmons MD Unavailable Unavailable Procedures Procedure Date Colonoscopy Flex; Dx (sep Pro) 13 Colorectal Ca Scrn Not Hi Risk 13 Advance Directives Directive Yes / No Effective Date File Name No Information Encounters Encounter Description Practice Location Reason(s) For Visit Diagnoses Date Provider Providers Copied on Encounter [facility], [address] [address], [place], [place], [id number], [place] tel:[phone] [facility] No Information Troy James. [address] [facility], [facility] [address], [place], [place], [id number], [place]. tel:[phone] Referring [place]: [place], [address] [place], [address]. tel:[phone] Family History Family Member Type Diagnosis Age At Onset No Information Payers Payer name Insurance type Covered republican ID Authoriza tion(s) [employer] Sr 16 [id number] Social History Type Description Quantity Date Captured [...]
--- OUTSIDE RECORDS SUMMARY | 2024-02-06 15:06 | XMS_ITS | Encounter Summary ---
Author Name Unknown Organization [place] Address [address] [place] [address] Care Team Providers Care Electrical Cad Technician Name Role Phone Teresita Garcia MD Primary Care Provider Teresita Garcia MD Unavailable Dolores Caputo MACHINE SHOP SUPERVISOR Unavailable Letha Vasquez CHW Unavailable Audrey Hickman MD Unavailable + Blanca Choi RN Unavailable Fred Ovalle MD Unavailable Letha Vasquez CHW Unavailable Dolores Caputo MACHINE SHOP SUPERVISOR Unavailable Dolores Caputo MACHINE SHOP SUPERVISOR Unavailable Teresita Garcia MD Unavailable Fred Ovalle MD Unavailable Chris Mcmahan MD Unavailable Dax Menon MD Unavailable Teresita Garcia MD Unavailable Reason for Visit * Reason Onset Date Comments Forms 05/23/2020 [facility] Encounter Details Date Type Department Care Team (Late st Contact Info) Description 05/23/2020 Telephone [facility] [id number] [place] [phone] [place] [address] [place], [place] [phone] Forms ([facility]) Social History Tobacco Use Types Packs/Day Years Used Date Smoking Tobacco: Never Smokeless Tobacco: Never Alcohol Use Standard Drinks/Week Comments Not Currently 0 (1 standard drink = 0.6 oz pur e alcohol) socially AUDIT-C Answer Date Recorded Frequency of Alcohol Consumption Never 11/25/2018 Average Number of Drinks Not on file 019 Frequency of Binge Drinking Not on file 10/30 PHQ-2 Answer Date Recorded PHQ-2 Score 2 12/02/2019 Sex and Gender Information Value Date Recorded Sex Assigned at Male 06/10/2021 1:42 PM CDT Gender Identity Male 06/10/2021 1:42 PM CDT Sexual Orientation Straight 06/10/2021 1: 42 PM CDT documented as of this encounter Miscellaneous Notes * Telephone Encounter - Malena Hankins - 05/23/2020 12:49 PM CDT Recd 6 page fax from [facility]. Please sign Plan of Care orders and fax to [phone]. Form in AA folder at [place]. Malena Hankins Academic Affairs Vice President documented in this encounter Plan of Treatment Not on file documented as of this encounter Visit Diagnoses Not on filedocumented in this encounter Additional Health Concerns Infection Onset Date Last Indicated Resolved Time Rule Out C-difficile 09/01/2022 09/01/2022 022 11:40 PM LAUNDRY FOLDER Rule Out COVID-19 11/30/2022 11/30/2022 11/30/2022 10:41 PM LAUNDRY FOLDER Rule Out COVID-19 02/21/2023 02/21/2023 02/21/2023 5:16 PM CDT Assessment Noted Time PHQ-9 Depression Total Score: 8 12/02/19 20 2:02 PM LAUNDRY FOLDER documented as of this encounter Care Teams Electrical Cad Technician Relationship Specialty [place] [address] [place] [address] PCP - General Family Practice 01/22/11 [place] [address] [place] [address] Assigned PCP 11/16/16 12/28/21 Dolores Caputo LSW Lead Dye Reel Operator Primary Care - CC 06/27/2009/03 Letha Vasquez, W Community Health Worker 07/05/2009/03 Audrey Hickman MD PRIMARY ENT [address] [facility] 13 [facility] [address] [place], [place] [phone] Assigned PCP 12/29/21 12/12/22 Blanca Choi, JAN Personal Advocate & Liaison (PAL) Nurse 09/16/22 01/24/24 rFed Ovalle MD [address] [facility] [address] [place], [place] [phone] Urology 10/13/22 Letha Vasquez, W Community Health Worker Primary Care - CC 10/21/22 Dolores Caputo LSW Clinic Dye Reel Operator Primary Care - CC 12/04/22 Dolores Caputo LSW Clinic Dye Reel Operator Primary Care - CC 12/05/22 [place] [address] [place] [address] Assigned PCP 12/13/22 Fred Ovalle MD [address] [place] [address] Assigned Surgical Provider 01/10/23 Chris Mcmahan MD [facility] NEUROLOGICAL [facility] [address] [place], [place] [phone] Neurology 02/21/23 Dax Menon MD [facility] [address] [place] [phone] Urology 02/21/23 [place] [address] [place] [address] Assigned Pain Medication Provider 04/11/23 06/19/23 documented as of this encounter
--- OUTSIDE RECORDS SUMMARY | 2024-02-06 15:06 | XMS_ITS | Encounter Summary ---
Author Name Unknown Organization [place] Address [address] [facility] [place] [address] Care Team Providers Care Fuel Storage Technician Name Role Phone Jonathan Velásquez MD Primary Care Provider Teresita Garcia MD Primary Care Provider Teresita Garcia MD Unavailable Teresita Gracia MD Unavailable Dolores Caputo TYPER Unavailable Letha Vasquez CHW Unavailable Audrey Hickman MD Unavailable + Blanca Choi RN Unavailable Fred Ovalle MD Unavailable Letha Vasquez CHW Unavailable Dolores Caputo TYPER Unavailable Dolores Caputo TYPER Unavailable Teresita Garcia MD Unavailable Fred Ovalle MD Unavailable Chris Mcmahan MD Unavailable Dax Menon MD Unavailable Teresita Garcia MD Unavailable Encounter Details Date Type Department Care Team (Late st Contact Info) Description 02/28/2007 [facility] [address] [facility] [place] [phone] Jonathan Velásquez MD XXX RETIRED XXX 0 [facility] N[place] [phone] [facility] Neurology Admiss. Social History Tobacco Use Types Packs/Day Years [...] this encounter Visit Diagnoses Diagnosis H & P- Primary documented in this encounter Additional Health Concerns Infection Onset Date Last Indicated Resolved Time Rule Out C-difficile 09/01/2022 09/01/2022 022 11:40 PM ENDS BREAKAGE CLERK Rule Out COVID-19 11/30/2022 11/30/2022 11/30/2022 10:41 PM ENDS BREAKAGE CLERK Rule Out COVID-19 02/21/2023 02/21/2023 02/21/2023 5:16 PM CDT documented as of this encounter Care Teams Fuel Storage Technician Relationship Specialty Start Date End Date Jonathan Velásquez MD PCP - General 11/10/05 01/21/11 [place] [address] [place] [address] PCP - General Family Practice 01/22/11 [place] [address] [place] [address] PCP - Assigned PCP 11/16/16 11/30/18 [place] [address] [place] [address] Assigned PCP 11/16/16 12/28/21 Dolores Caputo [facility] Lead Production Supply Equipment Tender Primary Care - CC 06/27/2009/03 Letha Vasquez, W Community Health Worker 07/05/2009/03 Audrey Hickman MD PRIMARY ENT [id number] [place] [address] 13 [facility] 350 [place], [place] [phone] Assigned PCP 12/29/21 12/12/22 Blanca Choi, JAN Personal Advocate & Liaison (PAL) Nurse 09/16/22 01/24/24 Fred Ovalle MD [address] [facility] [address] [place], [place] [address] Urology 10/13/22 Letha Vasquez, W Community Health Worker Primary Care - CC 10/21/22 Dolores Caputo TYPER Clinic Production Supply Equipment Tender Primary Care - CC 12/04/22 Dolores Caputo LSW Clinic Production Supply Equipment Tender Primary Care - CC 12/05/22 [place] [address] [place] [address] Assigned PCP 12/13/22 Fred Ovalle MD [address] [place] [address] Assigned Surgical Provider 01/10/23 Chris Mcmahan MD [facility] NEUROLOGICAL [facility] [address] [place] [address] Neurology 02/21/23 Dax Menon MD [facility] [address] [place] [phone] Urology 02/21/23 [place] [address] [place] [address] Assigned Pain Medication Provider 04/11/23 06/19/23 documented as of this encounter
--- OUTSIDE RECORDS SUMMARY | 2024-02-06 15:06 | XMS_ITS | Encounter Summary ---
Author Name Unknown Organization [place] Address [address] [place] [address] Care Team Providers Care Teacher Learning Disabled Name Role Phone Teresita Garcia MD Primary Care Provider Teresita Garcia MD Unavailable Dolores Caputo TAX COMMISSIONER Unavailable Letha Vasquez CHW Unavailable Audrey Hickman MD Unavailable + Blanca Choi RN Unavailable Fred Ovalle MD Unavailable Letha Vasquez CHW Unavailable Dolores Caputo TAX COMMISSIONER Unavailable Dolores Caputo TAX COMMISSIONER Unavailable Teresita Garcia MD Unavailable Fred Ovalle MD Unavailable Chris Mcmahan MD Unavailable Dax Menon MD Unavailable Teresita Garcia MD Unavailable Reason for Visit * Reason Comments Medication Refill Encounter Details Date Type Department Care Team (Late st Contact Info) Description 08/23/2020 Refill [facility] [address] [place] [phone] [place] [address] [place] [address] Medication Refill Social History Tobacco Use Types [...] and Family Not on file 07/05/2020 Attends [employer] Not on file 07/05 Active Member [...] 07/05/2020 PHQ-2 Answer Date Recorded PHQ-2 Score 4 06/26/2020 [facility] Occupat ional Health - Occupational [...] encounter Miscellaneous Notes * Telephone Encounter - Kirstin Mejia RN - 08/24/2020 10:49 AM CHEF KITCHEN MANAGER Patient has refills remaining with requesting pharmacy. Kirstin Vail - Registered Nurse [facility] KITCHEN MANAGER documented in this encounter Plan of Treatment Not on file documented as of this encounter Visit Diagnoses Diagnosis Osteoporosis, unspecified osteoporosis type, unspecified pathological fracture presence documented in this encounter Additional Health Concerns Infection Onset Date Last Indicated Resolved Time Rule Out C-difficile 09/01/2022 09/01/2022 022 11:40 PM CHEF KITCHEN MANAGER Rule Out COVID-19 11/30/2022 11/30/2022 11/30/2022 10:41 PM CHEF KITCHEN MANAGER Rule Out COVID-19 02/21/2023 02/21/2023 02/21/2023 5:16 PM CDT Assessment Noted Time PHQ-9 Depression Total Score: 8 06/26/20 20 12:57 PM CDT documented as of this encounter Care Teams Teacher Learning Disabled Relationship Specialty [place] [address] [place] [address] PCP - General Family Practice 01/22/11 [place] [address] [place] [address] Assigned PCP 11/16/16 12/28/21 Dolores Caputo, [facility] Lead Medical Doctor Nuclear Medicine Primary Care - CC 06/27/2009/03 Letha Vasquez, W Community Health Worker 07/05/2009/03 Audrey Hickman MD PRIMARY ENT [id number] [place] [address] 13 [facility] [address] [place], [place] [address] Assigned PCP 12/29/21 12/12/22 Blanca Choi, AJN Personal Advocate & Liaison (PAL) Nurse 09/16/22 01/24/24 Fred Ovalle MD [address] [facility] [address] [place], [place] [phone] Urology 10/13/22 Letha Vasquez, W Community Health Worker Primary Care - CC 10/21/22 Dolores Caputo, [facility] Clinic Medical Doctor Nuclear Medicine Primary Care - CC 12/04/22 Dolores Caputo, [facility] Clinic Medical Doctor Nuclear Medicine Primary Care - CC 12/05/22 [place] [address] [place] [address] Assigned PCP 12/13/22 Fred Ovalle MD [address] [place] [address] Assigned Surgical Provider 01/10/23 Chris Mcmahan MD [facility] NEUROLOGICAL [facility] 2828 [place] [address] Neurology 02/21/23 Dax Menon MD [facility] [address] [place] [phone] Urology 02/21/23 [place] [address] [place] [address] Assigned Pain Medication Provider 04/11/23 06/19/23 documented as of this encounter
--- OUTSIDE RECORDS SUMMARY | 2024-02-06 15:06 | XMS_ITS | Encounter Summary ---
Author Name Unknown Organization [facility] [facility] Address [address] [facility] [place] [address] Care Team Providers Care Hired Hand Name Role Phone Jonathan Velásquez MD Primary Care Provider Teresita Garcia MD Primary Care Provider Teresita Garcia MD Unavailable Teresita Garcia MD Unavailable Dolores Caputo SR. MANAGER Unavailable Letha Vasquez CHW Unavailable Audrey Hickman MD Unavailable + Blanca Choi RN Unavailable Fred Ovalle MD Unavailable Letha Vasquez CHW Unavailable Dolores Caputo SR. MANAGER Unavailable Dolores Caputo SR. MANAGER Unavailable Teresita Garcia MD Unavailable Fred Ovalle MD Unavailable Chris Mcmahan MD Unavailable Dax Menon MD Unavailable Teresita Garcia MD Unavailable Encounter Details Date Type Department Care Team (Late st Contact Info) Description 02/28/2007 [facility] 830 [facility] [place] [phone] Jonathan Velásquez MD XXX RETIRED XXX 0 [facility] N[place]IL [place]OSS [phone] [facility] Social History Tobacco Use Types Packs/Day Years [...] this encounter Visit Diagnoses Diagnosis HOSPITAL DISCHARGE SUMMARY- Primary documented in this encounter Additional Health Concerns Infection Onset Date Last Indicated Resolved Time Rule Out C-difficile 09/01/2022 09/01/2022 022 11:40 PM ENTRANCE GUARD Rule Out COVID-19 11/30/2022 11/30/2022 11/30/2022 10:41 PM ENTRANCE GUARD Rule Out COVID-19 02/21/2023 02/21/2023 02/21/2023 5:16 PM CDT documented as of this encounter Care Teams Hired Hand Relationship Specialty Start Date End Date Jonathan Velásquez MD PCP - General 11/10/05 01/21/11 [place] [address] [place] [address] PCP - General Family Practice 01/22/11 [place] [address] [place] [address] PCP - Assigned PCP 11/16/16 11/30/18 [place] [address] [place] [address] Assigned PCP 11/16/16 12/28/21 Dolores Caputo [facility] Lead Senior Storage Administrator Primary Care - CC 06/27/2009/03 Letha Vasquez, W Community Health Worker 07/05/2009/03 Audrey Hickman MD PRIMARY ENT [id number] [place] [address] 13 [facility] 350 [place], [place] [address] Assigned PCP 12/29/21 12/12/22 Blanca Choi, RN Personal Advocate & Liaison (PAL) Nurse 09/16/22 01/24/24 Fred Ovalle MD [address] [facility] [address] [place] [address] Urology 10/13/22 Letha Vasquez [facility] Community Health Worker Primary Care - CC 10/21/22 Dolores Caputo LSW Clinic Senior Storage Administrator Primary Care - CC 12/04/22 Dolores Caputo LSW Clinic Senior Storage Administrator Primary Care - CC 12/05/22 [place] [address] [place] [address] Assigned PCP 12/13/22 Fred Ovalle MD [address] [place] [address] Assigned Surgical Provider 01/10/23 Chris Mcmahan MD [facility] NEUROLOGICAL [facility] 2828 [place] [address] Neurology 02/21/23 Dax Menon MD [facility] [address] [place] [phone] Urology 02/21/23 [place] [address] [place] [address] Assigned Pain Medication Provider 04/11/23 06/19/23 documented as of this encounter
== END 2024-02-06 15:05 | disposition home or self-care (01) ==
LOC: ED 15:02
PROVIDERS: Emergency Provider Family Medicine
DX: R21 Rash and other nonspecific skin eruption (principal)
CPT/HCPCS: 99282; 99283

== ENCOUNTER 2025-07-07 18:35 | Emergency (ER) | payer MEDICARE, BC, SELFPAY ==
--- OUTSIDE RECORDS SUMMARY | 2025-07-07 18:37 | XMS_ITS | Encounter Summary ---
Author Organization [place] Address [address] [facility] [place] [address] Care Team Providers Care Manager Retention Name Role Phone Jonathan Velásquez MD Primary Care Provider [phone] Teresita Garcia MD Primary Care Provider Teresita Garcia MD Unavailable Teresita Garcia MD Unavailable Dolores Caputo MEDICAL PROFESSIONALS Unavailable [phone] Letha Soliz CHW Unavailable [phone] Audrey Hickman MD Unavailable + Blanca Choi RN Unavailable [phone] Fred Ovalle MD Unavailable [phone] Letha Soliz CHW Unavailable Dolores Caputo [employer] Unavailable [phone] Dolores Caputo [employer] Unavailable [phone] Teresita Garcia MD Unavailable Fred Ovalle MD Unavailable [phone] Chris Mcmahan MD Unavailable Dax Menon MD Unavailable Teresita Garcia MD Unavailable Dolores Caputo MEDICAL PROFESSIONALS Unavailable Dolores Caputo [employer]ICAL [employer]ESSION[employer] Unavailable Encounter Details Date Type Department Care Team (Late st Contact Info) Description 02/27/[address] [place] [phone] Jonathan Velásquez MD XXX RETIRED XXX [address] [place] [address] [place] [phone] [facility] Social History Tobacco Use Types Packs/Day Years Used Date Smoking Tobacco: Never Smokeless Tobacco: Never Alcohol Use Standard Drinks/Week Comments Not Currently 0 (1 standard drink = 0.6 oz pur e alcohol) socially Sex and Gender Information Value Date Recorded Sex Assigned at Male 06/10/2021 1:42 PM CDT Legal Sex Male 3:40 AM MENTAL HYGIENE CONSULTANT Gender Identity Male 06/10/2021 1:42 PM CDT Sexual Orientation Straight 06/10/2021 1: 42 PM CDT Occupation Industry Job Start Date Job End Date disabled Not on file Not on file Not on file Not on file Not on file Not on file Not on file documented as of this encounter Plan of Treatment Not on file documented as of this encounter Visit Diagnoses Diagnosis EMERGENCY DEPT- Primary documented in this encounter Additional Health Concerns Infection Onset Date Last Indicated Resolved Time Rule Out C-difficile 09/01/2022 09/01/2022 022 11:40 PM MENTAL HYGIENE CONSULTANT Rule Out COVID-19 11/30/2022 11/30/2022 11/30/2022 10:41 PM MENTAL HYGIENE CONSULTANT Rule Out COVID-19 02/21/2023 02/21/2023 02/21/2023 5:16 PM CDT documented as of this encounter Care Teams Manager Retention Relationship Specialty Start Date End Date Jonathan Velásquez MD PCP - General 11/10/05 01/21/11 [place] [address] [place] [address] PCP - General Family Practice 01/22/11 [place] [address] [place] [address] PCP - Assigned PCP 11/16/16 11/30/18 [place] [address] [place] [address] Assigned PCP 11/16/16 12/28/21 Dolores Caputo, [facility] Lead Shaker Operator Primary Care - CC 06/27/2009/03 Letha Soliz, W Community Health Worker 07/05/2009/03 Audrey Hickman MD [facility] [address] [address] Assigned PCP 12/29/21 12/12/22 Blanca Choi RN Personal Advocate & Liaison (PAL) Nurse 09/16/22 01/24/24 Fred Ovalle MD [address] [address] Urology 10/13/22 Letha Soliz, CHW Community Health Worker Primary Care - CC 10/21/22 Dolores Caputo LSW Clinic Shaker Operator Primary Care - CC 12/04/22 Dolores Caputo LSW Clinic Shaker Operator Primary Care - CC 12/05/22 [place] [address] [place] [address] Assigned PCP 12/13/22 Fred Ovalle MD [address] [place] [address] Assigned Surgical Provider 01/10/23 11/19/24 Chris Mcmahan MD [facility] NEUROLOGICAL [facility] 2828 [place] [address] Neurology 02/21/23 Dax Menon MD [facility] [address] [place] [phone] Urology 02/21/23 [place] [address] [place] [address] Assigned Pain Medication Provider 04/11/23 06/19/23 Dolores Caputo LSW Clinic Shaker Operator Primary Care - CC 05/25/2505/30/25 Dolores Caputo LSW Lead Shaker Operator Primary Care - CC 06/01/25 documented as of this encounter
--- OUTSIDE RECORDS SUMMARY | 2025-07-07 18:37 | XMS_ITS | Encounter Summary ---
Author Organization [place] Address [address] [facility] [place] [address] Care Team Providers Care Travel Manager Name Role Phone Teresita Garcia MD Primary Care Provider Blanca Choi RN Unavailable Fred Ovalle MD Unavailable Teresita Garcia MD Unavailable Fred Ovalle MD Unavailable Chris Mcmahan MD Unavailable Dax Menon MD Unavailable Teresita Garcia MD Unavailable Dolores Caputo SEMICONDUCTOR WAFERS TESTER Unavailable Dolores Caputo SEMICONDUCTOR WAFERS TESTER Unavailable Encounter Details Date Type Department Care Team (Late st Contact Info) Description 03/18/2023 [facility] [address] [place] [phone] Cindy Goel Social History Tobacco [...] and Family Not on file 07/05/2020 Attends [employer] Not on file 07/05 Active Member [...] Answer Date Recorded PHQ-2 Score 1 10/13/2022 [facility] [place] of Occupat ional Health - Occupational Stress [...] PM CDT Legal Sex Male 3:40 AM THERMODYNAMICS PROFESSOR Gender Identity Male 06/10/2021 1:42 PM CDT Sexual Orientation Straight 06/10/2021 1: 42 PM CDT Occupation Industry Job Start Date Job End Date disabled Not on file Not on file Not on file Not on file Not on file Not on file Not on file COVID-19 Exposure Response Date [...] Total Score: 4 10/13/19 23 11:00 AM THERMODYNAMICS PROFESSOR documented as of this encounter Care Teams Travel Manager Relationship Specialty [place] [address] [place] [address] PCP - General Family Practice 01/22/11 Blanca Choi RN Personal Advocate & Liaison (PAL) Nurse 09/16/22 01/24/24 Fred Ovalle MD [address] [address] Urology 10/13/22 [place] [address] [place] [address] Assigned PCP 12/13/22 Fred Ovalle MD [address] [place] [address] Assigned Surgical Provider 01/10/23 11/19/24 Chris Mcmahan MD [facility] NEUROLOGICAL [facility] [address]28 [place] [address] Neurology 02/21/23 Dax Menon MD [facility] [address] [place] [phone] Urology 02/21/23 [place] [address] [place] [address] Assigned Pain Medication Provider 04/11/23 06/19/23 Dolores Caputo LSW Clinic Cupboard Builder Primary Care - CC 05/25/2505/30/25 Dolores Caputo LSW Lead Cupboard Builder Primary Care - CC 06/01/25 documented as of this encounter
--- OUTSIDE RECORDS SUMMARY | 2025-07-07 18:37 | XMS_ITS | Encounter Summary ---
Author Organization [place] Address [address] [facility] [place] [address] Care Team Providers Care Hospital Food Service Worker Name Role Phone Jonathan Velásquez MD Primary Care Provider [phone] Teresita Garcia MD Primary Care Provider Teresita Garcia MD Unavailable Teresita Garcia MD Unavailable Dolores Caputo STORE DELI MANAGER Unavailable [phone] Letha Soliz CHW Unavailable [phone] Audrey Hickman MD Unavailable + Blanca Choi RN Unavailable [phone] Fred Ovalle MD Unavailable [phone] Letha Soliz CHW Unavailable Dolores Caputo STORE DELI MANAGER Unavailable [phone] Dolores Caputo STORE DELI MANAGER Unavailable [phone] Teresita Garcia MD Unavailable Fred Ovalle MD Unavailable [phone] Chris Mcmahan MD Unavailable Dax Menon MD Unavailable Teresita Garcia MD Unavailable Dolores Caputo STORE DELI MANAGER Unavailable Dolores Caputo STORE DELI MANAGER Unavailable [phone] Encounter Details Date Type Department Care Team (Late st Contact Info) Description 02/28/2007 [address] [place] [phone] Jonathan Velásquez MD XXX RETIRED XXX [address] [place] [address] [place] [phone] [facility] Social History Tobacco Use Types Packs/Day Years Used Date Smoking Tobacco: Never Smokeless Tobacco: Never Alcohol Use Standard Drinks/Week Comments Not Currently 0 (1 standard drink = 0.6 oz pur e alcohol) socially Sex and Gender Information Value Date Recorded Sex Assigned at Male 06/10/2021 1:42 PM CDT Legal Sex Male 3:40 AM FLOUR WORKER Gender Identity Male 06/10/2021 1:42 PM CDT [...] Out C-difficile 09/01/2022 09/01/2022 022 11:40 PM FLOUR WORKER Rule Out COVID-19 11/30/2022 11/30/2022 11/30/2022 10:41 PM FLOUR WORKER Rule Out COVID-19 02/21/2023 02/21/2023 02/21/2023 5:16 PM CDT documented as of this encounter Care Teams Hospital Food Service Worker Relationship Specialty Start Date End Date Jonathan Velásquez MD PCP - General 11/10/05 01/21/11 [place] [address] [place] [address] PCP - General Family Practice 01/22/11 [place] [address] [place] [address] PCP - Assigned PCP 11/16/16 11/30/18 [place] [address] [place] [address] Assigned PCP 11/16/16 12/28/21 Dolores Caputo, [facility] Lead Tool Maintenance Worker Primary Care - CC 06/27/2009/03 Letha Soliz, W Community Health Worker 07/05/2009/03 Audrey Hickman MD [place] [address] [address] Assigned PCP 12/29/21 12/12/22 Blanca Choi RN Personal Advocate & Liaison (PAL) Nurse 09/16/22 01/24/24 Fred Ovalle MD [address] [address] Urology 10/13/22 Letha Soliz, CHW Community Health Worker Primary Care - CC 10/21/22 Dolores Caputo LSW Clinic Tool Maintenance Worker Primary Care - CC 12/04/22 Dolores Caputo LSW Clinic Tool Maintenance Worker Primary Care - CC 12/05/22 [place] [address] [place] [address] Assigned PCP 12/13/22 Fred Ovalle MD [address] [place] [address] Assigned Surgical Provider 01/10/23 11/19/24 Chris Mcmahan MD [facility] NEUROLOGICAL [facility] [address] [place] [address] Neurology 02/21/23 Dax Menon MD [facility] [address] [place] [phone] Urology 02/21/23 [place] [address] [place] [address] Assigned Pain Medication Provider 04/11/23 06/19/23 Dolores Caputo LSW Clinic Tool Maintenance Worker Primary Care - CC 05/25/2505/30/25 Dolores Caputo LSW Lead Tool Maintenance Worker Primary Care - CC 06/01/25 documented as of this encounter
--- OUTSIDE RECORDS SUMMARY | 2025-07-07 18:37 | XMS_ITS | Clinical Summary ---
Author Organization [facility] Address [address] [place] [address] Care Team Providers Care Piano Regulator Name Role Phone Lorna West RN Unavailable Teresita Garcia MD Primary Care Provider [phone] Allergies Active Allergy Reactions Criticality Noted Date Comments Hydromorphone Nausea And Vomiting 12/16/2010 Pollen, Micronized 09/10/2010 Medications alendronate (FOSAMAX) 70 mg tablet Take 70 mg by mouth every Thursday morning. 3 09/28/19 18 Active calcium carbonate-vitamin D3 600 mg (1,500 mg)-800 unit chew Chew 1 Tablet by mouth 2 times daily. Active ketoconazole 2% shampoo (NIZORAL) 2 % shampoo Apply topically to affected area(s) every Thursday and Thursday. Lather on damp scalp, leave on for 5 min, then rinse with water Active carBAMazepine (CARBATROL) 200 mg Extended-Release capsule Take 200 mg by mouth two times daily. 08/14/20 22 Active NaCl 0.9% 500 mL with ocrelizumab 30 mg/mL soln 600 mg Inject 600 mg intravenous EVERY 6 MONTHS. Active acetaminophen (TYLENOL) 325 mg tabletIndications :fever,pain Take 2 Tablets (650 mg) by mouth every 4 hours if needed for Pain. Max acetaminophen dose: 4000mg in 24 hrs. 0 10/03/19 23 Active hospital bedIndications[facility] Hospital bed with mattress and 1/2 rails. Semi-electric bed. Length of need 99 months. Bed dry cleaning manager:no 1 Each 10/07/19 Active bisacodyL (DULCOLAX) 10 mg suppositoryIndica tions:Neurogenic bowel Insert 1 Suppository (10 mg) rectally once daily if needed for Constipation. 2 Suppository 3 3:19 PM ORACLE DATABASE ANALYST 10/07/19 Active docusate (COLACE) 100 mg capsuleIndication s:Neurogenic bowel Take 1 Capsule (100 mg) by mouth two times daily. 60 Capsule 3 3:19 PM ORACLE DATABASE ANALYST 10/07/19 23 Active ondansetron (ZOFRAN ODT) 4 mg disintegrating tablet 4 mg every 8 hours if needed for Nausea/Vomiting. Active polyethylene glycoL (MIRALAX) 17 gram/scoop powderIndications :Neurogenic bowel Mix 1 scoop (17 g) in liquid then take by mouth once daily if needed for Constipation. 05/26/20 Active ciprofloxacin HCl (Cipro) 500 mg tablet Take 500 mg by mouth one time. Take 1 tab Po After every catheter change. Active gabapentin (NEURONTIN) 400 mg capsuleIndication s:neuropathic pain Take 1 Capsule (400 mg) by mouth four times daily. 400 mg PO 4 times a day (0400, 1000, 1600, 2200).. Give with mirapex 01/26/20 24 Active pramipexole (MIRAPEX) 0.125 mg tabletIndications :Restless legs syndrome four times daily. 0.125 mg PO 4 times a day (0400, 1000, 1600, 2200). Give with Gabapentin 01/26/20 24 Active baclofen 10 mg tabletIndications :Spasticity Take 1 Tablet (10 mg) by mouth every 6 hours if needed (spasticity or acute withdrawal. Call clinic for instructions.). 60 Tablet 3 01/12/20 25 Active Hospital, Clinic, or Other Facility Administered Medication Ordered Dose Route Frequency Start Date End Date Status baclofen 10,000 mcg/20mL (500 mcg/mL) intrathecal (GABLOFEN)Indications:Pre sence of intrathecal baclofen pump 1.9213 mcg/hr cITi CONTINUOUS 04/26/2025 04/24/2026 Active Active Problems Patient Care Coordination No te [...] baclofen pump 05/25/2021 Multiple sclerosis Sensory loss Overview (09/10/2010): fingers and feet Neurogenic bladder Neurogenic bowel Overview (09/10/2010): constipation Resolved Problems Problem Noted Date Diagnosed [...] Lactic acidosis 11/25/2019 09/28/2022 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, acquired s/p repair 05/15/11 05/16/2011 09/28/2022 [...] Encounters Date Type Department Care Team Description 05/25/2025 2:00 PM CDT Home Care Visit [address] [address] Dorys Cordon MEATMAN - LONG VISIT 05/25/2025 Home Care Visit [address] [address] Lianet Luna RN SN - OASIS DISCHARGE 05/23/2025 10:30 AM CDT Home Care Visit [address] [address] Lianet Luna RN SN - HOME VISIT 05/19/2025 Home Care Visit [address] [address] Shaneka Wong RN CARE COORDINATION 05/18/2025 Telephone Courage [facility] [address] [address] Argelia Jauregui DO 05/17/2025 Home Care Visit [address] [address] Nevaeh Gerber RN CARE COORDINATION 05/11/2025 2:00 PM CDT Home Care Visit [address] [address] Dorys Cordon MEATMAN - LONG VISIT 05/09/2025 9:00 AM CDT Home Care Visit [address] [address] Ashely Santiago RN SN - HOME VISIT 05/08/2025 1:00 PM CDT Home Care Visit [address] [address] Nyla Abreu MEATMAN - LONG VISIT 05/04/2025 2:00 PM CDT Home Care Visit [address] [address] Dorys Cordon MEATMAN - HOME VISIT 04/28/2025 Plan of Care Documentation [address] [address] 04/27/2025 2:00 PM CDT Home Care Visit [address] [address] Dorys Cordon MEATMAN - LONG VISIT 04/26/2025 2:15 PM CDT - 04/26/2025 11:59 PM CDT Hospital Encounter [facility] [address] [place] [address] 04/26/2025 2:15 PM CDT Office Visit [facility] [address] [place] [address] [place] [address] Argelia Jauregui DO Baclofen Implantable Pump 04/26/2025 Travel 04/25/2025 2:00 PM CDT Home Care Visit [address] [address] Zoie Murrell RN SN - OASIS RECERTIFICATION 04/21/2025 Travel 04/20/2025 2:00 PM CDT Home Care Visit [address] [address] Dorys Cordon MEATMAN - LONG VISIT 04/18/2025 10:45 AM CDT Home Care Visit [address] [address] Lianet Luna RN SN - HOME VISIT 04/18/2025 Home Care Visit [address] [address] Zoie Murrell RN CARE COORDINATION 04/18/2025 Home Care Visit [address] [address] Lianet Luna RN CARE COORDINATION 04/17/2025 2:00 PM CDT Home Care Visit [address] [address] Dorys Cordon MEATMAN - LONG VISIT 04/13/2025 2:00 PM CDT Home Care Visit [address] [address] ProDorys mclaughlin A MEATMAN - LONG VISIT 04/10/2025 2:00 PM CDT Home Care Visit [address] [address] Dorys Cordon A MEATMAN - LONG VISIT 04/06/2025 2:00 PM CDT Home Care Visit [address] [address] Dorys Cordon MEATMAN - LONG VISIT from Last 3 Months Immunizations Immunization Administration Dates Next Due COVID-19 vaccine (Curly-J&J) PFSAMPSON 1 Influenza, IIV4 07/27/2016 Pneumococcal Poly,23-Valent (Pneumovax) [...] Recorded Sex Assigned at Not on file Legal Sex Male 5:26 AM ORACLE DATABASE ANALYST Gender Identity Not on file Sexual Orientation Not on file Obstetrics History Last Filed Vital Signs Vital Sign Reading Time Taken Comments Blood Pressure 120/70 05/23/2025 10:37 AM CDT Pulse 85 05/23/2025 10:37 AM CDT Temperature 36.4 C (97.5 F) 05/23/2025 10:37 AM CDT Respiratory Rate 14 05/23/2025 10:37 AM CDT Oxygen Saturation 97% 05/23/2025 10:37 AM CDT Inhaled Oxygen Concentration - - Weight 74.6 kg (164 lb 8 oz) 04/26/2025 2:08 PM CDT Height 170.2 cm (5' 7) 05/26/2023 8:57 AM CDT Body Mass Index 25.76 05/26/2023 8:57 AM CDT Plan of Treatment Upcoming Encounters Date Type Department Care Team (Late st Contact Info) Description 10/18/2025 1:45 PM ORACLE DATABASE ANALYST Office Visit [facility] [address] [address] Loni Hernandez NP [address] [address] 04/25/2026 1:45 PM CDT Office Visit [facility] [address] [address] Argelia Jauregui DO [address] [address] Health Maintenance Due Date Last Done Comments Tetanus booster 1972 Depression screening for age 12+ 1973 HIV for age 15-65 1976 Hepatitis C screening for age 18-79 12/15/1979 Colonoscopy through age 75 2006 Lipids for age 45-75 2006 Zoster (shingles) series for age 50+ (1 of 2) 12/15/2011 Pneumococcal series for age 50+ (2 of 2 - PCV) 05/20/2012 05/20/2011 BMI (ht and wt on same day) for age 18+ 12/17/2017 12/17/2016, 12/12/2015 RSV vaccine for adults or (1 - Risk 60-74 years 1-dose series) 2021 Influenza Vaccine (#1) 2025 07/27/2016 COVID-19 vaccine series Completed 07/19/20, 03/12/2022, 08/26/2021, Additional history exists Hepatitis B series for 19+ Aged Out N o longer eligible based on patient's age to complete this topic Medical Devices Implanted Type Area Airline Operations Agent Device Identifier Shelf Expiration Date Model / Serial / Lot Cath 1 Pc Sutureless 8709sc - [id number] Implanted:Qty: 1 on 12/16/2010 at [facility] Explanted:at [facility] (Quantity not on file) Spine Medtronic 09/13/2011 8709SC# / [id number] / Pump Synchromed Ii 20ml - [id number] Implanted:Qty: 1 on 12/16/2010 at [facility] Explanted:at [facility] (Quantity not on file) Spine Medtronic 04/24/2012 [id number]# / [id number] H / Cath Indura Drug [id number] Medtronic - [id number] Implanted:Qty: 1 on 03/11/2011 at [facility] Explanted:at [facility] (Quantity not on file) Spine Medtronic 8709# / [id number] / Ancr 8590-9 - [id number] Implanted:Qty: 1 on 03/11/2011 at [facility] Spine Medtronic 8590-9# / / [id number] Duraseal Implanted:Qty: 1 on 03/11/2011 at [facility] Spine [id number] / / Description:DURASEAL Graft 1x1 Dura Mater Duragen - [id number] Implanted:Qty: 1 on 05/15/2011 at [facility] [employer]RA [employer]PLIES 01/25/2014 [id number]# / / [id number] Drug Pump Spinal 20ml Synchromed Ii - [id number] Implanted:Qty: 1 on 01/27/2017 by Frederic Mejía MD at [facility] Explanted:at [facility] (Quantity not on file) N/A: Abdomen Medtronic Pain Therapy 04/24/2018 [id number]# / [id number] H / Cnnctr Spinal Indura Sutureless - [id number] Implanted:Qty: 1 on 01/27/2017 by Frederic Mejía MD at [facility] N/A: Abdomen Medtronic Pain Therapy 06/14/2017 8578# / / [id number] Inactivated Obsolete With No Replacement Drug Pump Spinal 20ml Synchrom - [id number] Implanted:Qty: 1 on 05/26/2023 by Frederic Mejía MD at [facility] Medtronic Pain Therapy 10/01/2024 [id number] / [id number] H / Envlp Neuro Lg Tyrx Absorb Antibacterial - [id number] Implanted:Qty: 1 on 05/26/2023 by Frederic Mejía MD at [facility] Medtronic 01/09/2024 [id number] / / [id number] Additional Health Concerns Infection Onset Date Last Indicated MDRO Clearance Comment:Infection Control Note: Hx of MDRO, surveillance criteria met, no need for further testing or isolation precautions. Do not delete or resolve the Infection Flag. +MDRO 09/28/22 CRPA urine 05/25/2023 05/25/2023 Insurance [facility] [id number] [place] [address] MEDICARE PART B HB ONLY MEDICARE PART A HB ONLY [facility] MEDICARE PB ONLY [facility] [id number] [place] [address] HC MEDICARE PPS [facility] Advance Directives * Full Code (Latest Code [...] Per Advance Care PlanNot Discussed Care Teams Piano Regulator Relationship Specialty [place] [address] [place] [address] PCP - General Family Practice 04/10/25 Lorna West RN [address] [facility] [address] [place] [address] Spasticity Management Care Coordination- [facility] Registered Nurse 08/05/21
--- OUTSIDE RECORDS SUMMARY | 2025-07-07 18:37 | XMS_ITS | Encounter Summary ---
Author Organization [place] Address [address] [facility] [place] [address] Care Team Providers Care Motor Installer Name Role Phone Jonathan Velásquez MD Primary Care Provider Teresita Garcia MD Primary Care Provider Teresita Garcia MD Unavailable Teresita Garcia MD Unavailable Dolores Caputo MEDICAL ASSISTANT DERMATOLOGY Unavailable [phone] Letha Soliz CHW Unavailable [phone] Audrey Hickman MD Unavailable + Blanca Choi RN Unavailable [phone] Fred Ovalle MD Unavailable [phone] Letha Soliz CHW Unavailable Dolores Caputo MEDICAL ASSISTANT DERMATOLOGY Unavailable [phone] Dolores Caputo MEDICAL ASSISTANT DERMATOLOGY Unavailable [phone] Teresita Garcia MD Unavailable Fred Ovalle MD Unavailable [phone] Chris Mcmahan MD Unavailable Dax Menon MD Unavailable Teresita Garcia MD Unavailable Dolores Caputo MEDICAL ASSISTANT DERMATOLOGY Unavailable Dolores Caputo MEDICAL ASSISTANT DERMATOLOGY Unavailable [phone] Encounter Details Date Type Department Care Team (Late st Contact Info) Description 02/28/[address] [place] [phone] Jonathan Velásquez MD XXX RETIRED XXX [address] [place] [address] [place] [phone] [facility] Neurology Admiss. Social History Tobacco Use Types Packs/Day Years Used Date Smoking Tobacco: Never Smokeless Tobacco: Never Alcohol Use Standard Drinks/Week Comments Not Currently 0 (1 standard drink = 0.6 oz pur e alcohol) socially Sex and Gender Information Value Date Recorded Sex Assigned at Male 06/10/2021 1:42 PM CDT Legal Sex Male 3:40 AM PHYSICAL SCIENCE PROFESSOR Gender Identity Male 06/10/2021 1:42 PM [...] Out C-difficile 09/01/2022 09/01/2022 022 11:40 PM PHYSICAL SCIENCE PROFESSOR Rule Out COVID-19 11/30/2022 11/30/2022 11/30/2022 10:41 PM PHYSICAL SCIENCE PROFESSOR Rule Out COVID-19 02/21/2023 02/21/2023 02/21/2023 5:16 PM CDT documented as of this encounter Care Teams Motor Installer Relationship Specialty Start Date End Date Jonathan Velásquez MD PCP - General 11/10/05 01/21/11 [place] [address] [place] [address] PCP - General Family Practice 01/22/11 [place] [address] [place] [address] PCP - Assigned PCP 11/16/16 11/30/18 [place] [address] [place] [address] Assigned PCP 11/16/16 12/28/21 Dolores Caputo, [facility] Lead Recruiter Manager Primary Care - CC 06/27/2009/03 Letha Soliz [facility] Community Health Worker 07/05/2009/03 Audrey Hickman MD [place] [address] [address] Assigned PCP 12/29/21 12/12/22 Blanca Choi, JAN Personal Advocate & Liaison (PAL) Nurse 09/16/22 01/24/24 Fred Ovalle MD [address] [address] Urology 10/13/22 Letha Soliz W Community Health Worker Primary Care - CC 10/21/22 Dolores Caputo LSW Clinic Recruiter Manager Primary Care - CC 12/04/22 Dolores Caputo LSW Clinic Recruiter Manager Primary Care - CC 12/05/22 [place] [address] [place] [address] Assigned PCP 12/13/22 Fred Ovalle MD [address] [place] [address] Assigned Surgical Provider 01/10/23 11/19/24 Chris Mcmahan MD [facility] NEUROLOGICAL [facility] [address] [place], [place] [id number] Neurology 02/21/23 Dax Menon MD [facility] [address] [place] [phone] Urology 02/21/23 [place] [address] [place] [address] Assigned Pain Medication Provider 04/11/23 06/19/23 Dolores Caputo LSW Clinic Recruiter Manager Primary Care - CC 05/25/2505/30/25 Dolores Caputo LSW Lead Recruiter Manager Primary Care - CC 06/01/25 documented as of this encounter
--- OUTSIDE RECORDS SUMMARY | 2025-07-07 18:38 | XMS_ITS | Encounter Summary ---
Author Organization [place] Address [address] [place] [address] Care Team Providers Care Hot Dip Plater Name Role Phone Teresita Garcia MD Primary Care Provider Teresita Garcia MD Unavailable Teresita Garcia MD Unavailable Dolores Caputo HADOOP DEVELOPER Unavailable Letha Soliz CHW Unavailable Audrey Hickman MD Unavailable + Blanca Choi RN Unavailable Fred Ovalle MD Unavailable Letha Soliz CHW Unavailable Dolores Caputo HADOOP DEVELOPER Unavailable Dolores Caputo HADOOP DEVELOPER Unavailable Teresita Garcia MD Unavailable Fred Ovalle MD Unavailable Chris Mcmahan MD Unavailable [phone] Dax Menon MD Unavailable Teresita Garcia MD Unavailable Dolores Caputo HADOOP DEVELOPER Unavailable [phone] Dolores Caputo HADOOP DEVELOPER Unavailable Encounter Details Date Type Department Care Team (Late st Contact Info) Description 04/15/2011 [facility] [id number] [place] [phone] [facility] Social History Tobacco Use Types Packs/Day Years Used Date Smoking Tobacco: Never Smokeless Tobacco: Never Alcohol Use Standard Drinks/Week Comments No 0 (1 standard drink = 0.6 oz pur e alcohol) Sex and Gender Information Value Date Recorded Sex Assigned at Male 06/10/2021 1:42 PM CDT Legal Sex Male 3:40 AM BENCH MECHANIC Gender Identity Male 06/10/2021 1:42 PM CDT [...] Out C-difficile 09/01/2022 09/01/2022 022 11:40 PM BENCH MECHANIC Rule Out COVID-19 11/30/2022 11/30/2022 11/30/2022 10:41 PM BENCH MECHANIC Rule Out COVID-19 02/21/2023 02/21/2023 02/21/2023 5:16 PM CDT documented as of this encounter Care Teams Hot Dip Plater Relationship Specialty [place] [address] [place] [address] PCP - General Family Practice 01/22/11 [place] [address] [place] [address] PCP - Assigned PCP 11/16/16 11/30/18 [place] [address] [place] [address] Assigned PCP 11/16/16 12/28/21 Dolores Caputo [facility] Lead Employee Training Specialist Primary Care - CC 06/27/2009/03 Letha Soliz [facility] Community Health Worker 07/05/2009/03 Audrey Hickman MD [place] [address] [address] Assigned PCP 12/29/21 12/12/22 Blanca Choi RN Personal Advocate & Liaison (PAL) Nurse 09/16/22 01/24/24 Fred Ovalle MD [address] [address] Urology 10/13/22 Letha Soliz [facility] Community Health Worker Primary Care - CC 10/21/22 Dolores Caputo [facility] Clinic Employee Training Specialist Primary Care - CC 12/04/22 Dolores Caputo [facility] Clinic Employee Training Specialist Primary Care - CC 12/05/22 [place] [address] [place] [address] Assigned PCP 12/13/22 Fred Ovalle MD [address] [place] [address] Assigned Surgical Provider 01/10/23 11/19/24 Chris Mcmahan MD [facility] NEUROLOGICAL [facility] [address] [place] [address] Neurology 02/21/23 Dax Menon MD [facility] [address] [phone] Urology 02/21/23 [place] [address] [place] [address] Assigned Pain Medication Provider 04/11/23 06/19/23 Dolores Caputo LSW Clinic Employee Training Specialist Primary Care - CC 05/25/2505/30/25 Dolores Caputo LSW Lead Employee Training Specialist Primary Care - CC 06/01/25 documented as of this encounter
--- OUTSIDE RECORDS SUMMARY | 2025-07-07 18:38 | XMS_ITS | Encounter Summary ---
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 Patient requesting alternative to [facility] care as they are at capacity, and currently has [facility]. Needing SN for suprapubic catheter changes and DICER MACHINE OPERATOR for showers. 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 Yes Homebound Status (describe the functional limitations that support this patient is confined to his/her home. Medicaid recipients are not required to be homebound.): Patient has difficulty ambulating >100 ft, Requires assistance of another person or specialized equipment is needed I attest that I saw or will see the patient on this date: 02/17/2025 Provider to follow patient INDIANA GARCIA [[id number]] Reason for Visit * Reason Onset Date Comments Orders 05/22/2025 home care order / home services ( bathing/ showers ) Encounter Details Date Type Department Care Team (Late st Contact Info) Description 05/22/2025 Telephone [facility] [address] [place] [phone] [place] [address] [place], [place] [phone] Orders ( home care order / home services ( bathing/ showers )) Social History Tobacco Use Types Packs/Day Years Used Date Smoking Tobacco: Never Smokeless Tobacco: Never Alcohol Use Standard Drinks/Week Comments Not Currently 0 (1 standard drink = 0.6 oz pur e alcohol) socially Social Connection and Isolation Panel [NHANES] A nswer Date Recorded Frequency of Communication with Friends and Fami ly Not on file 02/17/2025 How often do you get together with friends or re latives? Twice a week 02/17/2025 Attends [employer]oration Services Not on file 02/17 Active Member of Clubs or Organizations Not on f ile 02/17/2025 Attends Club or Organization Meetings Not on marika e 02/17/2025 Marital Status Not on file 02/17/2025 AUDIT-C Answer Date Recorded Q1: How often do you have a drink containing alcohol? Never 11/26/2023 Q2: How many drinks containi ng alcohol do you have on a typical day when you are drinking? Patient does not drink Q3: How often do you have si x or more drinks on one occasion? Never 11/26/2023 PHQ-2 Answer Date Recorded PHQ-2 Score 0 02/17/2025 [facility] of Occupat ional Health - Occupational Stress Questionnaire Answer Date Recorded Do you feel stress - tense, restless, nervous, or anxious, or unable to sleep at night because your mind is troubled all the time - these days? Only a little 02/17/2025 Exercise Vital Sign Answer Date Recorde d On average, how many days pe r week do you engage in moderate to strenuous exercise (like a brisk walk)? 0 days 02/17/2025 On average, how many minutes do you engage in exercise at this level? 0 min 02/17/2025 Adolescent Education Answer Date Record ed Getting School Help Needed Not on file 06/19 Food Insecurity Answer Date Recorded Within the past 12 months, d id you worry that your food would run out before you got money to buy more? No 02/17/2025 Within the past 12 months, d id the food you bought just not last and you didn t have money to get more? No 02/17/2025 Housing Stability Answer Date Recorded Do you have housing? (Housin g is defined as stable permanent housing and does not include staying outside in a car, in a tent, in an abandoned building, in an overnight usp, or couch-surfing.) Yes 02/17/2025 Are you worried about losing your housing? No 02/17/2025 Financial Resource Strain Answer Date R ecorded Within the past 12 months, h ave you or your family members you live with been unable to get utilities (heat, electricity) when it was really needed? No 02/17/2025 Transportation Needs Answer Date Record ed Within the past 12 months, h as lack of transportation kept you from medical appointments, getting your medicines, non-medical meetings or appointments, work, or from getting things that you need? No 02/17/2025 Interpersonal Safety Answer Date Record ed Do you feel physically and e motionally safe where you currently live? Yes 02/17/2025 Within the past 12 months, h ave you been hit, slapped, kicked or otherwise physically hurt by someone? No 02/17/2025 Within the past 12 months, h ave you been humiliated or emotionally abused in other ways by your partner or ex-partner? 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 Advised that an option is to consult care coordination to further assist with finding alternate home health care agency in network for placement. Patient requested clarification on what agencies are in network, so that he may research prior to care coordination reaching out. Listed some home care agencies within network with Medicare per [facility] preferred partner net work spreadsheet. Sent via [employer] per patient request. Placed home care referral to care coordination for further assistance. NORM Velasco RN [facility] * Telephone Encounter - Indiana Garcia MD - 05/24/2025 3:09 PM CDT What other location? * Telephone Encounter - Abena Mao RN - 05/24/2025 3:05 PM CDT Routing to provider. Please send referral to another location as [facility] is not accepting pts at the moment T'd up Abena Mao RN [facility] * Telephone Encounter - Florence Rogers RN - 05/23/2025 8:17 AM CDT RN called and spoke with patient- Notified of new home care referral placed. Provided phone number for [facility] Care via [employer] message [phone]. Patient was given an opportunity to ask questions, verbalized understanding of plan, and is agreeable. Florence Rodriguez RN [facility] * Telephone Encounter - Indiana Garcia MD - 05/22/2025 4:51 PM CDT I signed the order, thanks Cindy. * Telephone Encounter - Cindy Aggarwal RN - 05/22/2025 3:17 PM CDT Indiana Garcia MD- See below. Pended home care referral below. Please review and order, if appropriate. Called and spoke with pt, He is currently open to home care through [facility]. He would like to switch home care agencies to [facility] for monthly chcf suprapubic catheter changes and Home Health Aide to assist withshowers. Credit Underwriter explained to pt that he may need an OV for insurance coverage and he is open to getting a visit scheduled if need be. Cindy Cox RN [facility] * Telephone Encounter - Ulises Wells MA - 05/22/2025 2:23 PM CDT Order/Referral Request Who is requesting: pt Orders being requested: home care order / home services ( bathing/ showers ) Reason service is needed/diagnosis: pt state he need help When are orders needed by: gumaro Has this been discussed with Provider: No Does patient have a preference on a Group/Provider/Facility? [facility] Does patient have an appointment scheduled?: No Where to send orders: Place orders within [facility] Could we send this information to you in [employer] or would you prefer to receive a phone call?: Patient would like to be contacted via [employer] and phone call. * Addendum Note - Abena Mao RN - 05/22/2025 2:23 PM CDTAddended by: ABENA MAO on: 05/24/2025 03:05 PM Modules accepted: Orders * Addendum Note - Suzette Garcia RN - 05/22/2025 2:23 PM CDTAddended by: SUZETTE GARCIA on: 05/24/2025 03:23 PM Modules accepted: Orders documented in this encounter Plan of Treatment Scheduled Referrals Name Type Priority Associated Diagnoses Orde r Schedule Home Care Referral Referral Routine: Next available opening Suprapubic catheter (H) Functional quadriplegia secondary to MS (H) Ordered: 05/22/2025 Primary Care - Care Coordination Referral Referral Routine: Next available opening Suprapubic catheter (H) Functional quadriplegia secondary to MS (H) Expected: 05/24/2025 (Approximate), Expires: 05/24/2026 documented as of this encounter Visit Diagnoses Diagnosis Suprapubic catheter (H)- Primary Other cystostomy status Functional quadriplegia secondary to MS (H) Multiple sclerosis documented in this encounter Additional Health Concerns Assessment Noted Time PHQ-9 Depression Total Score: 6 02/18/20 25 10:16 AM CDT documented as of this encounter Care Teams Hammer Mill Operator Relationship Specialty [place] [address] [place] [address] PCP - General Family Practice 01/22/11 Fred Ovalle MD [facility] [address] [address] Urology 10/13/22 [place] [address] [place] [address] Assigned PCP 12/13/22 Chris Mcmahan MD [facility] NEUROLOGICAL [facility] [address] [place] [address] Neurology 02/21/23 Dax Menon MD [facility] [address] [place] [phone] Urology 02/21/23 documented as of this encounter
--- OUTSIDE RECORDS SUMMARY | 2025-07-07 18:38 | XMS_ITS ---
Author Organization [place] [facility] Address [address] [facility] [place] [address] Care Team Providers Care Nsh Teacher Name Role Phone Teresita Garcia MD Primary Care Provider [phone] Fred Ovalle MD Unavailable Teresita Garcia MD Unavailable Chris Mcmahan MD Unavailable Dax Menon MD Unavailable Primary Care Care Coordination Status:Closed (Closed) Start date:06/01/2025 End date:06/02/2025 Close reason:Resources given, no ongoing needs Continued Care and Services Coordination
--- OUTSIDE RECORDS SUMMARY | 2025-07-07 18:38 | XMS_ITS | Encounter Summary ---
Author Organization [facility] Address [address] [facility] [place] [address] Care Team Providers Care Full Time Staff Interpreter Name Role Phone Teresita Garcia MD Primary Care Provider [phone] Fred Ovalle MD Unavailable Teresita Garcia MD Unavailable Chris Mcmahan MD Unavailable [phone] Dax Menon MD Unavailable Reason for Visit * Reason Onset Date Comments Home Care/Hospice 06/12/2025 Encounter Details Date Type Department Care Team (Late st Contact Info) Description 06/12/[address] [phone] Te[place]ita [place] [id number] [place] [address] Home Care/Hospice Social History Tobacco Use [...] re latives? 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 Requesting orders from: Teresita Garcia RN APPROVED: RN able to provide verbal orders. Home Care will send orders for signature. RN will close encounter. Is this a request for a temporary pause in the home care episode? No Orders Requested Senior Living Request for continuation of care with decrease in frequency Goals have been met/progressing. Frequency: originally 2x/wk shower, Decrease to 1x/wk as he does not have any wounds RN gave verbal order: Yes Occupational Therapy Request for initial evaluation and treatment (one time) RN gave verbal order: Yes Phone number Home Care can be reached at: [phone] Okay to leave a detailed message?: Yes Suzette Garcia RN documented in this encounter Plan of Treatment Not on file documented as of this encounter Visit Diagnoses Not on filedocumented in this encounter Additional Health Concerns Assessment Noted Time PHQ-9 Depression Total Score: 6 02/18/20 25 10:16 AM CDT documented as of this encounter Care Teams Full Time Staff Interpreter Relationship Specialty [place] [address] [place] [address] PCP - General Family Practice 01/22/11 Fred Ovalle MD [facility] [address] [address] Urology 10/13/22 [place] [address] [place] [address] Assigned PCP 12/13/22 Chris Mcmahan MD [facility] NEUROLOGICAL [facility] [address] [place] [address] Neurology 02/21/23 Dax Menon MD [facility] [address] [place] [phone] Urology 02/21/23 documented as of this encounter
--- OUTSIDE RECORDS SUMMARY | 2025-07-07 18:38 | XMS_ITS | Encounter Summary ---
Author Organization [place] Address [address] [facility] [place] [address] Care Team Providers Care Vrt Mechanic Name Role Phone Teresita Garcia MD Primary Care Provider Blanca Choi RN Unavailable Fred Ovalle MD Unavailable Teresita Garcia MD Unavailable Fred Ovalle MD Unavailable Chris Mcmahan MD Unavailable Dax Menon MD Unavailable Teresita Garcia MD Unavailable Dolores Caputo MANAGER NURSING HOME Unavailable Dolores Caputo MANAGER NURSING HOME Unavailable [phone] Encounter Details Date Type Department Care Team (Late st Contact Info) Description 05/21/2023 [facility] [address] [phone] Rita Nye Social History Tobacco Use Types [...] week 04/02/2023 How often do you attend [facility] or adventism services? Never 04/02/2023 Do you belong to any clubs o r organizations such as zoroastrian groups, unions, fraternal [...] Answer Date Recorded PHQ-2 Score 0 05/08/2023 [facility] - Occupational Stress Questionnaire Answer Date [...] place to sleep or slept in a retirement (including now)? 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 Gender Identity Male 06/10/2021 1:42 PM CDT [...] documented as of this encounter Care Teams Vrt Mechanic Relationship Specialty [place] [address] [place] [address] PCP - General Family Practice 01/22/11 Blanca Choi, JAN Personal Advocate & Liaison (PAL) Nurse 09/16/22 01/24/24 Fred Ovalle MD [address] [place] [address] Urology 10/13/22 [place] [address] [place] [address] Assigned PCP 12/13/22 Fred Ovalle MD [address] [place] [address] Assigned Surgical Provider 01/10/23 11/19/24 Chris Mcmahan MD [facility] [address] [place] [address] Neurology 02/21/23 Dax Menon MD [facility] [address] [place] [phone] Urology 02/21/23 [place] [address] [place] [address] Assigned Pain Medication Provider 04/11/23 06/19/23 Dolores Caputo LSW Clinic Parole Agent Primary Care - CC 05/25/2505/30/25 Dolores Caputo LSW Lead Parole Agent Primary Care - CC 06/01/25 documented as of this encounter
--- OUTSIDE RECORDS SUMMARY | 2025-07-07 18:38 | XMS_ITS | Encounter Summary ---
Author Organization [place] Address [address] [place] [address] Care Team Providers Care Supervisor Finishing Room Name Role Phone Teresita Garcia MD Primary Care Provider Teresita Garcia MD Unavailable Dolores Caputo KAITARA TARAKA Unavailable Letha Soliz CHW Unavailable Audrey Hickman MD Unavailable + Blanca Choi RN Unavailable Fred Ovalle MD Unavailable Letha Soliz CHW Unavailable Dolores Caputo KAITARA TARAKA Unavailable Dolores Caputo KAITARA TARAKA Unavailable Teresita Garcia MD Unavailable Fred Ovalle MD Unavailable Chris Mcmahan MD Unavailable Dax Menon MD Unavailable Teresita Garcia MD Unavailable Dolores Caputo KAITARA TARAKA Unavailable [phone] Dolores Caputo KAITARA TARAKA Unavailable [phone] Reason for Visit * Reason Comments Medication Refill Encounter Details Date Type Department Care Team (Late st Contact Info) Description 08/23/[address] 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 Kirstin Vail - Registered Nurse [facility] Diagnostic Services RVISOR HOT DIP TINNING documented in this encounter Plan of Treatment Not on file documented as of this encounter Visit Diagnoses Diagnosis Osteoporosis, unspecified osteoporosis type, unspecified pathological fracture presence documented in this encounter Additional Health Concerns Infection Onset Date Last Indicated Resolved Time Rule Out C-difficile 09/01/2022 09/01/2022 022 11:40 PM SUPERVISOR HOT DIP TINNING Rule Out COVID-19 11/30/2022 11/30/2022 11/30/2022 10:41 PM SUPERVISOR HOT DIP TINNING Rule Out COVID-19 02/21/2023 02/21/2023 02/21/2023 5:16 PM CDT Assessment Noted Time PHQ-9 Depression Total Score: 8 06/26/20 20 12:57 PM CDT documented as of this encounter Care Teams Supervisor Finishing Room Relationship Specialty [place] [address] [place] [address] PCP - General Family Practice 01/22/11 [place] [address] [place] [address] Assigned PCP 11/16/16 12/28/21 Dolores Caputo, KAITARA TARAKA Lead Electronics Specialist Primary Care - CC 06/27/2009/03 Letha Soliz, [facility] Community Health Worker 07/05/2009/03 Audrey Hickman MD [facility] [address] [place] [address] Assigned PCP 12/29/21 12/12/22 Blanca Choi RN Personal Advocate & Liaison (PAL) Nurse 09/16/22 01/24/24 Fred Ovalle MD [address] [address] Urology 10/13/22 Letha Soliz, [facility] Community Health Worker Primary Care - CC 10/21/22 Dolores Caputo, [facility] Clinic Electronics Specialist Primary Care - CC 12/04/22 Dolores Caputo KAITARA TARAKA Clinic Electronics Specialist Primary Care - CC 12/05/22 [place] [address] [place], [place] [id number] Assigned PCP 12/13/22 Fred Ovalle MD [address] [place] [address] Assigned Surgical Provider 01/10/23 11/19/24 Chris Mcmahan MD [facility] [address] [place] [address] Neurology 02/21/23 Dax Menon MD [facility] [address] [place] [phone] Urology 02/21/23 [place] [address] [place] [address] Assigned Pain Medication Provider 04/11/23 06/19/23 Dolores Caputo [facility] Clinic Electronics Specialist Primary Care - CC 05/25/2505/30/25 Dolores Caputo, KAITARA TARAKA Lead Electronics Specialist Primary Care - CC 06/01/25 documented as of this encounter
--- OUTSIDE RECORDS SUMMARY | 2025-07-07 18:38 | XMS_ITS ---
Author Organization [place] Address [address] [facility] [place] [address] Care Team Providers Care Celebrity Chef Entrepreneur Media Personality Name Role Phone Teresita Garcia MD Primary Care Provider [phone] Fred Ovalle MD Unavailable Teresita Garcia MD Unavailable Chris Mcmahan MD Unavailable Dax Menon MD Unavailable Primary Care Care Coordination Status:Closed (Closed) Start date:05/24/2025 End date:05/30/2025 Close reason:Resources given, no ongoing needs Continued Care and Services Coordination
--- OUTSIDE RECORDS SUMMARY | 2025-07-07 18:38 | XMS_ITS | Encounter Summary ---
Author Organization [facility] Address [address] [facility] [place] [address] Care Team Providers Care Sales Coach Name Role Phone Teresita Garcia MD Primary Care Provider Fred Ovalle MD Unavailable [phone] Teresita Garcia MD Unavailable Chris Mcmahan MD Unavailable Dax Menon MD Unavailable Reason for Visit * Reason Onset Date Comments Home Care/Hospice 07/05/2025 Encounter Details Date Type Department Care Team (Late st Contact Info) Description 07/05/[address] [phone] [place] [id number] [place] [id number] Home Care/Hospice Social History Tobacco Use [...] re latives? Twice a week 02/17/2025 Attends [employer] Not on file 02/17 Active Member [...] Answer Date Recorded PHQ-2 Score 0 02/17/2025 [facility] - Occupational Stress [...] in an abandoned building, in an overnight skilled nursing, or couch-surfing.) Yes 02/17/2025 Are you worried [...] PM CDT Legal Sex Male 3:40 AM [employer] Gender Identity Male 06/10/2021 1:42 PM CDT Sexual Orientation Straight 06/10/2021 1: 42 PM CDT Occupation Industry Job Start Date Job End Date disabled Not on file Not on file Not on file Not on file Not on file Not on file Not on file documented as of this encounter Miscellaneous Notes * Telephone Encounter - Mary More RN - 07/05/2025 12:05 PM CDT JAN Paredes [facility] [phone] Home Care is calling regarding an established patient with [facility]. Requesting orders from: Teresita Garcia RN APPROVED: RN able to provide verbal orders. Home Care will send orders for signature. RN will close encounter. Is this a request for a temporary pause in the home care episode? No Orders Requested Long-Term Request for continuation of care with increase in frequency Frequency: 3 as needed visits for catheter issues RN gave verbal order: Yes Mary More RN documented in this encounter Plan of Treatment Not on file documented as of this encounter Visit Diagnoses Not on filedocumented in this encounter Additional Health Concerns Assessment Noted Time PHQ-9 Depression Total Score: 6 02/18/20 25 10:16 AM CDT documented as of this encounter Care Teams Sales Coach Relationship Specialty [place] [address] [place] [address] PCP - General Family Practice 01/22/11 Fred Ovalle MD [address] [address] Urology 10/13/22 [place] [address] [place] [address] Assigned PCP 12/13/[address] [facility] [address] [place] [address] Neurology 02/21/23 Dax Menon MD [facility] [address] [phone] Urology 02/21/23 documented as of this encounter
--- OUTSIDE RECORDS SUMMARY | 2025-07-07 18:38 | XMS_ITS | Clinical Summary ---
Author Organization [facility] Address [address] [facility] [place] [address] Care Team Providers Care Getter Operator Name Role Phone Teresita Garcia MD Primary Care Provider Fred Ovalle MD Unavailable [phone] Teresita Garcia MD Unavailable Chris Mcmahan MD Unavailable Dax Menon MD Unavailable Allergies Active Allergy Reactions Criticality Noted Date Comments Hydromorphone Nausea and Vomiting 09/15/2014 Pollen Extract 01/22/2011 Medications Docusate Sodium (COLACE PO) Take 100 mg by mouth 2 times daily as needed for constipation Active polyethylene glycol (MIRALAX) powder Take 17 g by mouth daily as needed Active gabapentin (NEURONTIN) 400 MG capsule Take 400 mg by mouth 4 times daily At 10am, 4:00pm, 10pm and 4:00 am 1 Active pramipexole (MIRAPEX) 0.125 MG tablet Take 0.125 mg by mouth 4 times daily At 12am, 0600, 12pm and 1800 1 Active medication given by implanted intrathecal pump continuous Drug # 1: Baclofen (Lioresal) - Conc:500 mcg/mL - Total Dose / 24 hours: 46.13 mcg Pump [place] Volume: 20 mL Outside Clinic & Provider: Argelia Aguilar MD, Last Refill Date: 09/26/2022 Next Refill Date: 1-2 weeks before alarm goes off (no appointment was set up yet as of 02/22/2023). Low [place] Alarm Date: 03/25/2023 Pump Type: Synchromed II For [place]: If pump is within 7 days of depletion, pharmacist will enter a 'Pain Management Adult IP Consult' into the EHR, including 'IT pain pump management' as the reason for the consult. Active ciprofloxacin (CIPRO) 500 MG tabletIndicatio ns:Prophylactic antibiotic Take 1 tablet (500 mg) by mouth as needed (Take One) Take one pill today and take one with each catheter change Monthly 3 tablet 4 3 Active acetaminophen (TYLENOL) 500 MG tabletIndicatio ns:Acute midline low back pain without sciatica Take 2 tablets (1,000 mg) by mouth every 8 hours as needed for pain 100 tablet 1 4 Active ketoconazole (NIZORAL) 2 % external creamIndication s:Rash and nonspecific skin eruption Apply topically 2 times daily 60 g 4 Active ketoconazole (NIZORAL) 2 % external shampooIndicati ons:Seborrheic dermatitis of scalp Apply topically daily as needed for itching or irritation 360 mL 3 4 Active Active Problems Problem Noted Date Diagnosed Date Presence of intrathecal baclofen pump 05/25/2021 Suprapubic catheter 05/25/2021 Assessment & Plan (02/17/2025 10:38 AM CDT): Sees Urology and take Cipro once daily when he change the catheter once a month. 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 Nhuj-Qundd-Aykeutd disease 05/14/2011 Assessment & Plan (02/17/2025 10:53 AM CDT): Bilateral, s/p hip replacement. Atopic rhinitis 05/14/2011 Overview (06/28/2012): (Problem list name updated by automated process. Provider to review and confirm.) Assessment & Plan (02/17/2025 10:47 AM CDT): Causing significant nasal discharge, uses flonase 2 puffs daily with good results. Assessment & Plan (11/26/2023 11:18 AM REGISTERED SAFETY ENGINEER): Causing significant nasal discharge, uses flonase 2 puffs daily with good results. Seborrheic dermatitis of scalp 03/10/2011 Cannabis abuse 12/13/2010 Overview (12/13/2010): Does not smoke daily Assessment & Plan (02/17/2025 10:53 AM CDT): Vape marijuana daily. 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 Assessment & Plan (11/26/2023 11:06 AM REGISTERED SAFETY ENGINEER): Pt was seen by Neurology and was discussed to stop Ocrivus and he will be following up with neurology. Resolved Problems Problem Noted Date Diagnosed Date Resolved Date Tachycardia 02/21/2023 02/17/2025 Recurrent UTI 02/21/2023 02/17/2025 Assessment & Plan (11/26/2023 11:12 AM REGISTERED SAFETY ENGINEER): Pt is still having pain in the lower part of the lower back, worse when he leans back against, I think his symptoms are musculoskeletal in nature. Pt was treated for UTI with Nitrofurantoin, I recommend to change rivera cath after UTI is resolved. Fever, unspecified fever cause 02/21/2023 05/08/2023 Urinary tract infection asso ciated with indwelling urethral catheter, initial encounter 12/02/2022 05/08/2023 Lab test positive for detect ion of COVID-19 virus 04/04/2021 05/08/2023 Neurogenic bladder 03/11/2019 5 Osteoporosis 01/20/2017 02/17/2025 Overview (05/08/2023): In the spine. Latest Dexa scan is showing no osteoporosis on 04/2023, will stop Alendronate weekly. 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 Provider to review and confirm.) Baclofen pump failure 03/10/20112023 Mild major depression 12/13/20102016 Retention of urine 09/10/2010 5 CARDIOVASCULAR SCREENING; LD L GOAL LESS THAN 160 07/28/2010 06/26/2020 Other, mixed, or unspecified nondependent drug abuse, unspecified 11/11/2005 12/13/2010 Depressive disorder, not elsewhere classified 09/16/2012/13/2010 iamCERVICALGIA 08/11/2005 09/04/2005 Polyosteoarthritis, unspecified 03/22/2003 02/17/2025 Spastic paresis 02/17/2025 Encounters Date Type Department Care Team Description 07/05/[address] [address] Teresita Garcia MD Home Care/Hospice 07/05/2025 Telephone [facility] [id number] [place] [phone] Teresita Garcia MD Home Care/Hospice 06/26/2025 [facility] [id number] [place] [phone] Teresita Garcia MD Home Care/Hospice (CAFETERIA CASHIER D/Cd ) 06/12/[address] [address] Teresita Garcia MD Home Care/Hospice 06/06/[address] [phone] Blanca Choi RN Home Care/Hospice (RN and CAFETERIA CASHIER - RN gave verbal orders ) 06/02/[address] [address] Teresita Garcia MD 05/22/[address] [address] Teresita Garcia MD Orders ( home care order / home services ( bathing/ showers )) from Last 3 Months Immunizations Immunization Administration Dates Next Due COVID-19 12+ (MODERNA) 09/07/2023 COVID-19 Bivalent 12+ (Pfizer) 09/10/2022 COVID-19 MONOVALENT 12+ (Pfizer) 08/26/2021,05/0 01/2021 COVID-19 Monovalent 18+ (Moderna) 08/26/2021,01/2021 COVID-19 Vaccine (Curly) 02/09/2021,01/30/2021 Flu, Unspecified 06/25/2023,06/25/2021, INFLUENZA,TRIVALENT (FLUCELVAX) 07/19/2024 Influenza (IIV3) PF 06/13/2012,07/05/2010 Influenza Vaccine 18-64 (Flublok) 06/14/2021, Influenza Vaccine >6 months,quad, PF ,06/09/2018,09/25/2017,2016,07/27/2016,06/26/2015 Influenza,INJ,MDCK,PF,Quad >6mo(Flucelvax) 06/26/2022 Pneumococcal 20 valent Conju gate (Prevnar 20) 11/26/2023 Pneumococcal 23 valent 05/20/2011 RSV Vaccine (Arexvy) 06/25/2023 RSV Vaccine, Unspecified 06/25/2023 TDAP (Adacel,Boostrix) 06/14/2021 TDAP Vaccine (Adacel) 12/13/2010 Zoster recombinant adjuvante d (Shingrix) 01/12/2023,10/13/2022 Family History Medical History Relation Comments [...] re latives? Twice a week 02/17/2025 Attends Church Services Not on file 02/17 Active Member [...] Answer Date Recorded PHQ-2 Score 0 02/17/2025 [facility] - Occupational Stress Questionnaire Answer Date [...] Answer Date Recorded Do you have housing? (Kurt g is defined as stable permanent housing and does not include staying outside in a car, in a tent, in an abandoned building, in an overnight jail, or couch-surfing.) Yes 02/17/2025 Are you worried [...] PM CDT Legal Sex Male 3:40 AM REGISTERED SAFETY ENGINEER Gender Identity Male 06/10/2021 1:42 PM CDT Sexual Orientation Straight 06/10/2021 1: 42 PM CDT Occupation Industry Job Start Date Job End Date disabled Not on file Not on file Not on file Not on file Not on file Not on file Not on file Last Filed Vital Signs Vital Sign Reading Time Taken Comments Blood Pressure 108/68 02/17/2025 10:18 AM CDT Pulse 80 02/17/2025 10:18 AM CDT Temperature 36.6 C (97.8 F) 02/17/2025 10:18 AM CDT Respiratory Rate 17 02/17/2025 10:1 8 AM CDT Oxygen Saturation 97% 02/17/2025 10: 18 AM CDT Inhaled Oxygen Concentration - - Weight 62.9 kg (138 lb 11.2 oz) 025 10:18 AM CDT Height 170.2 cm (5' 7) 02/17/2025 10:1 8 AM CDT Body Mass Index 21.72 02/17/2025 10:18 AM CDT Plan of Treatment Health Maintenance Due Date Last Done Comments CT COLONOGRAPHY 1960 FIT 1960 FLEX SIG 1960 COLONOSCOPY 07/29/2023 07/29/2013, 0912/2012, 06/01/2013 COVID-19 VACCINE ( season) 2025 07/19/2024, 09/07/2023, 09/10/2022, Additional history exists INFLUENZA VACCINE (#1) 2025 , 06/25/2023, 06/26/2022, Additional history exists PHQ-9 08/20/2025 02/17/2025, 0205/2024, 11/18/2023, Additional history exists ANNUAL REVIEW OF HM ORDERS 02/17/202602/17, 11/26/2023, 08/28/2022 MEDICARE ANNUAL WELLNESS VISIT 02/17/2026 02/17/2025, 11/26/2023, 06/14/2021, Additional history exists DEXA 05/01/2026 05/01/2023, 08/0 12/2022, 04/04/2020, Additional history exists DIABETES SCREENING 11/18/2026 11/18/2023, 0 05/25/2023, 04/27/2023, Additional history exists COLORECTAL CANCER SCREENING 12/15/2026 sDNA (Cologuard) 12/15/2026 12/16/2023, 12/16/2023 LIPID 04/06/2028 04/06/2023, 09/29, 12/13/2010 ADVANCE CARE PLANNING 02/17/2030 02/17/2025 , 11/26/2023, 05/25/2023, Additional history exists DTAP/TDAP/TD VACCINE (3 - Td or Tdap) 06/14/2031 06/14/2021, 12/13/2010 HIV SCREENING Completed 04/28/2006 HEPATITIS C SCREENING Completed 09/03/2017, 017 DEPRESSION ACTION PLAN Completed 8, 10/17/2016, 09/15/2014, Additional history exists ZOSTER VACCINE Completed 01/12/2023, 10/13/2022 RSV VACCINE Completed 06/25/2023, 06/25/2023 PNEUMOCOCCAL VACCINE 50+ YEARS Completed 11/26/2023, 05/20/2011 HPV VACCINE (No Doses Required) Completed MENINGITIS VACCINE Aged Out No longer eligible based on patient's age to complete this topic Medical Devices Implanted Type Area Wire Turning Machine Operator Device Identifier Shelf Expiration Date Model / Serial / Lot Right Hip Replacement Metallic Hardware/Anc hor Right: Hip Left Hip Replacement Metallic Hardware/Anc hor Left: Hip Procedures Procedure Name Priority Date/Time Associated Diagnosis Comments COLOGUARD([employer]) Routine 12/16/2023 1:30 PM CDT Screen for colon cancer BASIC METABOLIC PANEL Routine 11/18/2023 11:45 AM REGISTERED SAFETY ENGINEER Acute midline low back pain without sciatica DX PERIPHERAL WRIST Routine 05/01/2023 1 :57 PM CDT Osteoporosis without current pathological fracture, unspecified osteoporosis type LIPID REFLEX TO DIRECT LDL PANEL Routine 04/06/2023 11:37 AM CDT Screening for hyperlipidemia HEPATITIS C (HIM EXTERNAL RESULT) Routine 09/03/2017 COLONOSCOPY Routine 06/01/2013 4:02 PM CDT HCL HIV 1 & 2 ANTIBODY Routine 04/28/2006 2:22 PM CDT Screening For Veneral Dis from Last 3 Months or Most Recently Relevant to Health Maintenance Results * COLOGUARD(Betyah) (12/16/2023 1:30 PM CDT) COLOGUARD-ABSTRACT Negative Negative 2023 4:51 AM CDT [employer] (CLIA #:[id number]) Comment: NEGATIVE TEST RESULT. A negative Cologuard result indicates a low likelihood that a colorectal cancer (CRC) or advanced adenoma (adenomatous polyps with more advanced pre-malignant features) is present. The chance that a person with a negative Cologuard test has a colorectal cancer is less than 1 in 1500 (negative predictive value >99.9%) or has an advanced adenoma is less than 5.3% (negative predictive value 94.7%). These data are based on a prospective cross-sectional study of 10,000 individuals at average risk for colorectal cancer who were screened with both Cologuard and colonoscopy. (Angelica Anderson al, N Engl J Med 2014;370(14):9916-3113) The normal value (reference range) for this assay is negative. COLOGUARD RE-SCREENING RECOMMENDATION: Periodic colorectal cancer screening is an important part of preventive healthcare for asymptomatic individuals at average risk for colorectal cancer. Following a negative Cologuard result, the [place] Cancer Society and U.S. Multi-Society Task Force screening guidelines recommend a Cologuard re-screening interval of 3 years. References: [place] [employer] Guideline for Colorectal Cancer Screening: https://www.cancer.org/cancer/hyggt-qkmmys-gaextr/zeyylrzsm-sddqwbzou-fgnjhug/ac s-rec ommendations.html.; Jose PAYNE, Ferny CR, Jono HIGH, Colorectal Cancer Screening: Recommendations for Physicians and Patients from the U.S. Multi-Society Task Force on Colorectal Cancer Screening , Am J Gastroenterology 2017; 112:5948-6558. TEST DESCRIPTION: Composite algorithmic analysis of stool DNA-biomarkers with hemoglobin immunoassay. Quantitative values of individual biomarkers are not [...] screened with both Cologuard and colonoscopy. (Angelica Anderosn al, N Engl J Med 2014;370(14):8955-1873.) Cologuard may produce a false negative or false positive result (no colorectal cancer or precancerous polyp present at colonoscopy follow up). A negative Cologuard test result does not guarantee the absence of CRC or advanced adenoma (pre-cancer). The current Cologuard screening interval is every 3 years. ([place] Cancer Society and U.S. Multi-Society Task Force). Cologuard performance data in a 10,000 patient pivotal study using colonoscopy as the reference method can be accessed at the following location: www.Pokelabo.Qello/results. Additional description of the Cologuard test process, warnings and precautions can be found at www.AddressReportrd.com. Stool specimen (specimen) 12/16/2023 1:30 PM CDT 12/18/2023 9:58 AM CDT Teresita Garcia MD LABORATORY Final Result [facility] [place] [address], [facility] [phone] [employer] (CLIA #:[id number]) [place] [address] * (ABNORMAL) Basic metabolic panel (Ca, Cl, CO2, Creat, Gluc, K, Na, BUN) (11/18/2023 11:45 AM REGISTERED SAFETY ENGINEER) [facility] Sodium 137 135 - 145 mmol/L 11/18/2023 9:09 PM REGISTERED SAFETY ENGINEER [facility] Comment:Reference intervals for this test were updated on 06/23/2023 to more accurately reflect our healthy population. There may be differences in the flagging of prior results with similar values performed with this method. Interpretation of those prior results can be made in the context of the updated reference intervals. Potassium 4.0 3.4 - 5.3 mmol/L 11/18/2023 9:09 PM REGISTERED SAFETY ENGINEER [facility] Chloride 101 98 - 107 mmol/L 11/18/2023 9:09 PM REGISTERED SAFETY ENGINEER [facility] Carbon Dioxide (CO2) 25 22 - 29 mmol/L 11/18/2023 9:09 PM REGISTERED SAFETY ENGINEER [facility] Anion Gap 11 7 - 15 mmol/L 11/18/2023 9:09 PM REGISTERED SAFETY ENGINEER [facility] Urea Nitrogen 7.5(L) 8.0 - 23.0 mg/dL 11/18/2023 9:09 PM REGISTERED SAFETY ENGINEER [facility] Creatinine 0.74 0.67 - 1.17 mg/dL 11/18/2023 9:09 PM REGISTERED SAFETY ENGINEER [facility] GFR Estimate >90 >60 mL/min/1. 73m2 11/18/2023 9:09 PM REGISTERED SAFETY ENGINEER [facility] Calcium 9.1 8.8 - 10.2 mg/dL 11/18/2023 9:09 PM REGISTERED SAFETY ENGINEER [facility] Glucose 93 70 - 99 mg/dL 11/18/2023 9:09 PM REGISTERED SAFETY ENGINEER [facility] Blood BLOOD SPECIMEN / Unknown Venipuncture / Unknown 11/18/2023 11:45 AM REGISTERED SAFETY ENGINEER 11/18/2023 11:45 AM REGISTERED SAFETY ENGINEER Albina Andujar PA-C LAB - BLOOD ORDERABLES Fin al Result [facility] [place] [facility] [address], [address] [place] [address], [facility] [phone] * DX Wrist Heel Radius (05/01/2023 1:57 PM CDT) Anatomical Region Laterality Modality Dexa Bone Mineral Den sity Narrative 05/01/2023 4:11 PM CDT [facility] - [address], [place] [address] Phone: Fax: Patient name: Dejuan Rodriguez Patient demographics: 62 year old White Male History: Evaluation of Bone Density, Multiple Sclerosis, and quadriplegia Current treatments: Calcium, Fosamax/Alendronate, Vitamin D Scan: [facility] Wrist DXA is reported along with axial DXA from the same date. The T-score of the 33% radius is Principal result director of acquisition marketing: Yumiko Young MD, [facility] Division of Diabetes, Endocrinology and Metabolism [facility] [phone] Teresita Garcia MD IM DEXA ORDERABLES Final Result * Lipid panel reflex to direct LDL [...] - 04/06/2023 5:59 PM CDT Cholesterol Desirable: <200 mg/dL Triglycerides Normal: Less than 150 mg/dL Borderline High: 150-199 mg/dL High: 200-499 mg/dL Very High: Greater than or equal to 500 mg/dL Direct Measure HDL Female: Greater than or equal to 50 mg/dL Male: Greater than or equal to 40 mg/dL LDL Cholesterol Desirable: <100mg/dL Above Desirable: 100-129 mg/dL Borderline High: 130-159 mg/dL High: 160-189 mg/dL Very High: >= 190 mg/dL Non HDL Cholesterol Desirable: 130 mg/dL Above Desirable: 130-159 mg/dL Borderline High: 160-189 mg/dL High: 190-219 mg/dL Very High: Greater than or equal to 220 mg/dL us Teresita Garcia MD LAB - BLOOD ORDERABLES Final Res ult LABORATORY [facility] [address] [place] [address], [address] [address], [facility] [phone] * Hep C - HIM (09/03/2017) [facility] See Scanned Document OLIVER HERZOG Bhakti CARIAS 09/03/2017 Narrative OLIVER ROSENDA Bhakti CARIAS - 09/03/2017 LAB [facility] us Provider Outside LAB - HIM EXTERNAL RESULT Final Result OLIVER HERZOG - CHRIS JV [address] [place] [address], [facility] [phone] * COLONOSCOPY (06/01/2013 4:02 PM CDT) COLONOSCOPY [facility] Patient Name: Dejuan Rodriguez Procedure Date: 06/01/2013 4:02:59 PM Date of : 1960 Admit Type: Outpatient Age: 52 Gender: Male Attending MD: Jacob Ramírez MD Procedure: Colonoscopy Indications: Screening for colorectal malignant neoplasm Providers: Jacob Simmons MD Referring MD: Teresita Garcia Md, Medicines: Fentanyl 100 micrograms IV, Midazolam 2 mg IV Complications: No immediate complications Procedure: Pre-Anesthesia Assessment: - Prior to the procedure, a History and Physical was performed, and patient medications and allergies were reviewed. The patient is competent. The risks and benefits of the procedure and the sedation options and risks were discussed with the patient. All questions were answered and informed consent was obtained. Patient identification and proposed procedure were verified by the physician in the procedure room. Mental Status Examination: alert and oriented. Airway Examination: normal oropharyngeal airway and neck mobility. Respiratory Examination: clear to auscultation. CV Examination: normal. Prophylactic Antibiotics: The patient does not require prophylactic antibiotics. Prior Anticoagulants: The patient has taken no previous anticoagulant or antiplatelet agents. ASA Grade Assessment: II - A patient with mild systemic disease. After reviewing the risks and benefits, the patient was deemed in satisfactory condition to undergo the procedure. The anesthesia plan was to use moderate sedation / analgesia (conscious sedation). Immediately prior to administration of medications, the patient was re-assessed for adequacy to receive sedatives. The heart rate, respiratory rate, oxygen saturations, blood pressure, adequacy of pulmonary ventilation, and response to care were monitored throughout the procedure. The physical status of the patient was re-assessed after the procedure. After obtaining informed consent, the colonoscope was passed under direct vision. Throughout the procedure, the patient's blood pressure, pulse, and oxygen saturations were monitored continuously. The Colonoscope was introduced through the anus and advanced to the terminal ileum. The colonoscopy was performed without difficulty. The patient tolerated the procedure well. The quality of the bowel preparation was good. Findings: The colon (entire examined portion) appeared normal. The terminal ileum appeared normal. Impression: - The entire examined colon is normal. - The examined portion of the ileum was normal. Recommendation: - Repeat colonoscopy in 10 years for surveillance. Jacob Simmons M.D. ____ Jacob Simmons MD Signed Date: 06/01/2013 4:30:37 PM Number of Addenda: 0 Note Initiated On: 06/01/2013 4:02:59 PM Scope Withdrawal Time: 0 hours 10 minutes 20 seconds Scope Withdrawal Time: 0 hours 10 minutes 20 seconds Total Procedure Duration: 0 hours 16 minutes 7 seconds Total Procedure Duration: 0 hours 16 minutes 7 seconds RADIOLOGY RESULTS 06/01/2013 4:02 PM CDT us Teresita Garcia MD PROCEDURES Final Result Performing Organization Address City/[facility]/ZIP Co de Phone Number RADIOLOGY RESULTS * HIV-1/HIV-2, SCREEN (04/28/2006 2:22 PM CDT) HIV 1&2 Antibody Negative NEG [facility] 04/28/2006 2:22 PM CDT 04/28/2006 2:23 PM CDT us Jonathan Velásquez MD LABORATORY Final Result [facility] [address] [place] [address] from Last 3 Months or Most Recently Relevant to Health Maintenance Insurance [place] Advance Directives For more information, please contact: [phone] * No CPR- Pre-arrest intubation OK (Latest [...] patie nt/ legal decision maker Care Teams Getter Operator Relationship Specialty [place] [address] [place] [address] PCP - General Family Practice 01/22/11 Fred Ovalle MD [address] [address] Urology 10/13/22 [place] [address] [place] [address] Assigned PCP 12/13/22 Chris Mcmahan MD [facility] NEUROLOGICAL [facility] [address] [place] [address] Neurology 02/21/23 Dax Menon MD [facility] [address] [place] [phone] Urology 02/21/23
--- OUTSIDE RECORDS SUMMARY | 2025-07-07 18:38 | XMS_ITS | Encounter Summary ---
Author Organization [place] Address [address] [facility] [place] [address] Care Team Providers Care Carton Stamper Name Role Phone Teresita Garcia MD Primary Care Provider [phone] Fred Ovalle MD Unavailable [phone] Teresita Garcia MD Unavailable Chris Mcmahan MD Unavailable [phone] Dax Menon MD Unavailable Reason for Visit * Reason Onset Date Comments Home Care/Hospice 06/06/2025 RN and LUIS Thomas gave verbal orders Encounter Details Date Type Department Care Team (Late st Contact Info) Description 06/06/[address] [address] Blanca Choi RN Home Care/Hospice (RN and CYCLE DIRECTOR - RN gave verbal orders ) Social History Tobacco Use Types Packs/Day Years [...] re latives? Twice a week 02/17/2025 Attends Hinduism Services Not on file 02/17 Active Member [...] Answer Date Recorded PHQ-2 Score 0 02/17/2025 [facility] of Occupat ional Health - Occupational [...] in an abandoned building, in an overnight half-way, or couch-surfing.) Yes 02/17/2025 Are you worried [...] PM CDT Legal Sex Male 3:[address] HELPER Gender Identity Male 06/10/2021 1:42 PM CDT Sexual Orientation Straight 06/10/2021 1: 42 PM CDT Occupation Industry Job Start Date Job End Date disabled Not on file Not on file Not on file Not on file Not on file Not on file Not on file documented as of this encounter Miscellaneous Notes * Telephone Encounter - Blanca Choi RN - 06/06/2025 12:44 PM CDT Home Care is calling regarding an established patient with [facility]. Requesting orders from: Teresita Garcia RN APPROVED: RN able to provide verbal orders. Home Care will send orders for signature. RN will close encounter. Is this a request for a temporary pause in the home care episode? No Orders Requested Senior Living Request for initial certification (first set of orders) Frequency: once every other week for 8 weeks penitentiary catheter care RN gave verbal order: Yes CYCLE DIRECTOR (Home Health Aide) Request for initial certification (first set of orders) Frequency: twice weekly, bathing assistance RN gave verbal order: Yes Okay to leave a detailed message?: Yes Contacts Contact Date/Time Type Contact Phone/Fax 06/06/2025 12:44 PM CDT Phone (Incoming) Valery MONTOYA [facility] (Home Care) [phone] Blanca Choi RN documented in this encounter Plan of Treatment Not on file documented as of this encounter Visit Diagnoses Not on filedocumented in this encounter Additional Health Concerns Assessment Noted Time PHQ-9 Depression Total Score: 6 02/18/20 25 10:16 AM CDT documented as of this encounter Care Teams Carton Stamper Relationship Specialty [place] [address] [place] [address] PCP - General Family Practice 01/22/11 Fred Ovalle MD [address] [address] Urology 10/13/22 [place] [address] [place] [address] Assigned PCP 12/13/22 Chris Mcmahan MD [facility] [address] [place] [address] Neurology 02/21/23 Dax Menon MD [facility] [address] [place] [phone] Urology 02/21/23 documented as of this encounter
--- OUTSIDE RECORDS SUMMARY | 2025-07-07 18:38 | XMS_ITS | Encounter Summary ---
Author Organization [place] Address [address] [facility] [place] [address] Care Team Providers Care Nailhead Operator Name Role Phone Teresita Garcia MD Primary Care Provider Fred Ovalle MD Unavailable [phone] Teresita Garcia MD Unavailable Chris Mcmahan MD Unavailable [phone] Dax Menon MD Unavailable Reason for Visit * Reason Onset Date Comments Home Care/Hospice 07/05/2025 Encounter Details Date Type Department Care Team (Late st Contact Info) Description 07/05/[address] [address] [place] [id number] [place] [address] Home Care/Hospice Social History Tobacco Use [...] re latives? 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 Requesting orders from: Teresita Garcia RN APPROVED: RN able to provide verbal orders. Home Care will send orders for signature. RN will close encounter. Is this a request for a temporary pause in the home care episode? No Orders Requested Detention Request for continuation of care with increase in frequency Frequency: 3 PRN visits. Patient has been having issues with his catheter lately, RN noticed that home care didn't have any PRN visit orders. RN gave verbal order: Yes Phone number Home Care can be reached at: [phone] Okay to leave a detailed message?: Yes Vance Desai RN documented in this encounter Plan of Treatment Not on file documented as of this encounter Visit Diagnoses Not on filedocumented in this encounter Additional Health Concerns Assessment Noted Time PHQ-9 Depression Total Score: 6 02/18/20 25 10:16 AM CDT documented as of this encounter Care Teams Nailhead Operator Relationship Specialty [place] [address] [place] [address] PCP - General Family Practice 01/22/11 Fred Ovalle MD [address] [address] Urology 10/13/22 [place] [address] [place] [address] Assigned PCP 12/13/22 Chris Mcmahan MD [facility] [address] [place] [address] Neurology 02/21/23 Dax Menon MD [facility] [address] [place] [phone] Urology 02/21/23 documented as of this encounter
--- OUTSIDE RECORDS SUMMARY | 2025-07-07 18:38 | XMS_ITS | Encounter Summary ---
Author Organization [place] Address [address] [facility] [place] [address] Care Team Providers Care Online Advertising Analyst Name Role Phone Teresita Garcia MD Primary Care Provider [phone] Audrey Hickman MD Unavailable + Blanca Choi RN Unavailable Fred Ovalle MD Unavailable Dolores Caputo LINUX SOLARIS ADMINISTRATOR Unavailable [phone] Dolores Caputo LINUX SOLARIS ADMINISTRATOR Unavailable Teresita Garcia MD Unavailable Fred Ovalle MD Unavailable Chris Mcmahan MD Unavailable Dax Menon MD Unavailable Teresita Garcia MD Unavailable Dolores Caputo LINUX SOLARIS ADMINISTRATOR Unavailable Dolores Caputo K LINUX SOLARIS ADMINISTRATOR Unavailable [phone] Reason for Visit * Reason Comments Medication Refill Encounter Details Date Type Department Care Team (Late st Contact Info) Description 11/05/[address] [place] [phone] Audrey Hickman MD [place] [address] [address] Medication Refill Social History Tobacco Use [...] and Family Not on file 07/05/2020 Attends Anglican Services Not on file 07/05 Active Member [...] Answer Date Recorded PHQ-2 Score 1 10/13/2022 [facility] [place] of Occupat ional Health - Occupational Stress [...] PM CDT 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 No / Unsure 10/13/2022 11:28 AM MASTER FIRE CONTROL TECHNICIAN documented as of this encounter Miscellaneous Notes * Telephone Encounter - Lilian Barber RN - 11/06/2022 10:14 AM CST Routing refill request to provider for review/approval because: Labs not current: Cr Due for Dexa. Creatinine Date Value Ref Range Status 11/25/2019 0.95 0.72 - 1.25 mg/dL Final Lilian Barber RN, BSN [facility] ER FIRE CONTROL TECHNICIAN documented in this encounter Plan of Treatment Not on file documented as of this encounter Visit Diagnoses Diagnosis Osteoporosis, unspecified osteoporosis type, unspecified pathological fracture presence documented in this encounter Additional Health Concerns Infection Onset Date Last Indicated Resolved Time Rule Out COVID-19 11/30/2022 11/30/2022 11/30/2022 10:41 PM MASTER FIRE CONTROL TECHNICIAN Rule Out COVID-19 02/21/2023 02/21/2023 02/21/2023 5:16 PM CDT Assessment Noted Time PHQ-9 Depression Total Score: 4 10/13/19 11:00 AM MASTER FIRE CONTROL TECHNICIAN documented as of this encounter Care Teams Online Advertising Analyst Relationship Specialty [place] [address] [place] [address] PCP - General Family Practice 01/22/11 Audrey Hickman MD [facility] [address] [place] [address] [address] [place], [place] [address] Assigned PCP 12/29/21 12/12/22 Blanca Choi RN Personal Advocate & Liaison (PAL) Nurse 09/16/22 01/24/24 Fred Ovalle MD [address] [facility] [address] [place] [address] Urology 10/13/22 Dolores Caputo LSW Clinic Irrigation Teacher Primary Care - CC 12/04/22 Dolores Caputo LSW Clinic Irrigation Teacher Primary Care - CC 12/05/22 [place] [address] [place] [address] Assigned PCP 12/13/22 Fred Ovalle MD [address] [place] [address] Assigned Surgical Provider 01/10/23 11/19/24 Chris Mcmahan MD [facility] NEUROLOGICAL [facility] [address] [place], [place] [phone] Neurology 02/21/23 Dax Menon MD [facility] [address] [place] [phone] Urology 02/21/23 [place] [address] [place] [address] Assigned Pain Medication Provider 04/11/23 06/19/23 Dolores Caputo LSW Clinic Irrigation Teacher Primary Care - CC 05/25/2505/30/25 Dolores Caputo LSW Lead Irrigation Teacher Primary Care - CC 06/01/25 documented as of this encounter
--- OUTSIDE RECORDS SUMMARY | 2025-07-07 18:38 | XMS_ITS | Encounter Summary ---
Author Organization [place] Address [address] [facility] [place] [address] Care Team Providers Care Retirement Administrator Name Role Phone Teresita Garcia MD Primary Care Provider Fred Ovalle MD Unavailable [phone] Teresita Garcia MD Unavailable Chris Mcmahan MD Unavailable Dax Menon MD Unavailable Reason for Visit * Reason Onset Date Comments Home Care/Hospice 06/26/2025 POURING CRANE OPERATOR D/Cd Encounter Details Date Type Department Care Team (Late st Contact Info) Description 06/26/[address] [address] [place] [id number] [place] [address] Home Care/Hospice (POURING CRANE OPERATOR D/Cd ) Social History Tobacco Use Types Packs/Day [...] re latives? 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 Requesting orders from: Teresita Garcia FYI: RN able to provide verbal orders. Sending as FYI only. Is this a request for a temporary pause in the home care episode? No Orders Requested Orders Requested POURING CRANE OPERATOR (Home Health Aide) - Bathing Request for discontinuation of care Goals have not been met/not progressing (patient did not like the 2 showers that were provided by [employer] POURING CRANE OPERATOR). Patient requesting this be taken over by his own ASSIGNER. FYI: Barriers to care: ASSIGNER taking over for ADLs (Effective last week) RN gave verbal order: Yes Contacts Contact Date/Time Type Contact Phone/Fax 06/26/2025 11:04 AM CDT Phone (Incoming) JAN Rasmussen [facility] [phone] secure line Bailey Johnson RN documented in this encounter Plan of Treatment Not on file documented as of this encounter Visit Diagnoses Not on filedocumented in this encounter Additional Health Concerns Assessment Noted Time PHQ-9 Depression Total Score: 6 02/18/20 10:16 AM CDT documented as of this encounter Care Teams Retirement Administrator Relationship Specialty [place] [address] [place] [address] PCP - General Family Practice 01/22/11 Fred Ovalle MD [facility] [address] [address] Urology 10/13/22 [place] [address] [place] [address] Assigned PCP 12/13/22 Chris Mcmahan MD [facility] [address] [place] [address] Neurology 02/21/23 Dax Menon MD [facility] [address] [place] [phone] Urology 02/21/23 documented as of this encounter
--- OUTSIDE RECORDS SUMMARY | 2025-07-07 18:38 | XMS_ITS | Encounter Summary ---
Author Organization [place] Address [address] [facility] [place] [address] Care Team Providers Care Head Charrer Name Role Phone Teresita Garcia MD Primary Care Provider Fred Ovalle MD Unavailable [phone] Teresita Garcia MD Unavailable Chris Mcmahan MD Unavailable [phone] Dax Menon MD Unavailable Dolores Caputo [facility] Unavailable Encounter Details Date Type Department Care Team (Late st Contact Info) Description 06/02/[address] [address] [place] [id number] [place] [address] Social History Tobacco Use Types Packs/Day [...] re latives? 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 Gave Dr. Garcia's below approval. Mary More RN * Telephone Encounter - Teresita Garcia MD - 06/03/2025 10:05 AM CDT Delay approved. * Telephone Encounter - Lilian Barber RN - 06/02/2025 2:07 PM CDT Home Care is calling regarding an established patient with [facility]. Requesting orders from: Teresita Garcia RN not able to provide verbal orders. Delay in start of care for Home Health Aid and Nursing until 06/04/25. Needs provider approval. Is this a request for a temporary pause in the home care episode? No Orders Requested [facility] Request for initial evaluation and treatment (one time) RN gave verbal order: Yes. After call, reviewed notes and Called [employer] back, advised RN not able to give verbal orders. Will need to be sent to provider for approval. They agree to cancel order and wait for provider response. SET UP MECHANIC HEADING MACHINES (Home Health Aide) Request for initial evaluation and treatment (one time) RN gave verbal order: Yes. After call, reviewed notes and Called [employer] back, advised RN not able to give verbal orders. Will need to be sent to provider for approval. They agree to cancel order and wait for provider response. Phone number Home Care can be reached at: [phone] Okay to leave a detailed message?: Yes Contacts Contact Date/Time Type Contact Phone/Fax 06/02/2025 02:08 PM CDT Phone (Incoming) Margaret MONTOYA [facility] (Home Care) [phone] Confidential VM ok to leave detailed message Lilian Barber RN documented in this encounter Plan of Treatment Not on file documented as of this encounter Visit Diagnoses Not on filedocumented in this encounter Additional Health Concerns Assessment Noted Time PHQ-9 Depression Total Score: 6 02/18/20 10:16 AM CDT documented as of this encounter Care Teams Head Charrer Relationship Specialty [place] [address] [place] [address] PCP - General Family Practice 01/22/11 Fred Ovalle MD [address] [address] Urology 10/13/22 [place] [address] [place] [address] Assigned PCP 12/13/22 Chris Mcmahan MD [facility]UR[facility] [address] [place] [address] Neurology 02/21/23 Dax Menon MD [facility] [address] [place] [phone] Urology 02/21/23 Dolores Caputo, CASING TIER Lead Director Of Physician Practices Primary Care - CC 06/01/25 documented as of this encounter
[2025-07-07 19:22] VITALS: BP 107/64; PULSE 76; RESP 18; TEMP 36.5; O2SAT 97
--- OUTSIDE RECORDS SUMMARY | 2025-07-07 20:51 | XMS_ITS | Patient Health Record ---
Author Organization [facility] Address [address] [place] [address] Care Team Providers Care Bilingual Legal Assistant Name Role Phone JoseTeresita gorman Primary Care Provider UnavailCARLITOS Quinonez Unavailable [phone] Allergies Allergen (clinical drug ingredient) Drug/Non Drug Allergy documented on EMR Reaction Allergy Type Onset Date Status hydromorphone Dilaudid Unknown Drug Allergy Act eliel hydromorphone HYDROmorphone Unknown Drug Allergy Active Reason For Referral No Information Medications Medication SIG (Take, Route, Frequency, Duration) Notes Start Date End Date Status Astelin 137 MCG/SPRAY Solution 2 puff in each nostril Nasally Twice a day; Duration: 30 day(s) 03/02/2025 Active Gabapentin 400 MG Capsule Oral; Duration: 28 Days Active Pramipexole Dihydrochloride 0.125 MG Tablet Oral; Duration: 28 Days A ctive Flonase 03/02/2025 Active MiraLax prn 03/02/2025 Active Social History Tobacco Use: Social History Observation Description Date Details (start date - stop date) Never Smoker NA - NA Social History Alcohol Use: Social Info Question Answer Notes Recreational drugs Recreational Drug Use: Yes Drug/Alcohol: Social Info Question Answer Notes AUDIT-C (Standard) Did you have a drink containing alcohol in the past year? No Points 0 Interpretation Negative Tobacco Use: Social Info Question Answer Notes Tobacco Control (Standard) Tobacco use: Nonsmoker Problems Problem Type SNOMED Code ICD Code Onset Dates Problem Status W/U Status Risk Notes Problem Hypertrophy of nasal turbinates (disorder) (23117008) Nasal turbinate hypertrophy (J34.3) Active confirmed Problem Nasal congestion (62002265) Chronic nasal congestion (R09.81) Active confirmed Procedures Procedure Date Ordered Date Performed Result Body Sit e Nasal Endoscopy, Diagnostic 03/02/2025 03/02/2025 N/A Encounters Encounter Location Date Provider Diagnosis [facility] [place] [address] [facility] [address] [place] [address] 03/02/2025 CARLITOS LOZA Chronic nasal congestion R09.81 and Nasal turbinate hypertrophy J34.3 Assessments Encounter Date Diagnosis (ICD Code) Assessment Notes Treatment Notes Treatment Clinical Notes Section Notes 03/02/2025 Nasal turbinate hypertrophy (ICD-10 - J34.3) 03/02/2025 Chronic nasal congestion (ICD-10 - R09.81) We discussed these exam findings and further management. His ears were clear bilaterally. Mild congestion along the inferior turbinates which shrank with Afrin/Lidocaine . The nasal airways are open and patent after decongested. His neck and oral exam were unremarkable. Because of his chronic congestion, I looked with a nasal endoscopy which was normal, there is not purulence to culture today. At this point, I have suggested the patient to utilize Astelin spray to help decongest/clear his nose and to also help with his nasal breathing effectively. He can also utilize Atrovent spray if this does not help much. He will call and inform us if his symptoms does not resolve. Plan Of Treatment No Information Insurance Providers Payer Name Payer Address Payer Phone Subscriber Number Group Number Insured Name Patient Relationship to Insured Coverage Start Date Coverage End Date MEDICARE [address] [place] [address] [id number] Dejuan Rodriguez Self - patient is the insured 6 [facility] MEDICARE [address] [place], [place] [id number] Dejuan Rodriguez Self - patient is the insured Medical (General) History Medical History History ICD Code MS Surgical History Surgery Date(Month/Year) total hip 1997 baclofen pump Hospitalization History Reason Date(Month/Year) See surgical history
== END 2025-07-07 21:44 | disposition left against medical advice (07) ==
DX: Z53.21 Procedure and treatment not carried out due to patient leaving prior to being seen by health care provider (principal)